=== PATIENT | male | born 1955 | race Caucasian/White ===

== ENCOUNTER 2022-11-26 00:11 | Inpatient (IN) | payer OTHER, MEDICAID ==
[~2022-11-26] VITALS: Ht 193 cm; Wt 101.8 kg
[~2022-11-26 00:11] MED LIST: ASPI-394 PO; ATOR20TA50 PO; CAR3125T PO; CIPR-173 PO; CLO3P TD
[2022-11-26] MEDS ORDERED: PIPERACILLIN-TAZOB 3.375GM 100 ML IV ONE (01:15)
[2022-11-26] MEDS ORDERED: SODIUM CHLORIDE 0.9% 2,850 ML IV ONE (01:15)
[2022-11-26 01:45] LABS: Basophils # (auto) 0 10 ^3/uL (0-0.2); Basophils % (auto) 0.2 % (0.0-2.0); Eosinophils # (auto) 0 10 ^3/uL (0-0.8); Eosinophils % (auto) 0.4 % (0.0-7.0); Hemoglobin 7.6 g/dL (13.5-17.5); Monocytes # (auto) 0.9 10 ^3/uL (0-1.3); Red Blood Cells 2.68 10^6/uL (4.5-5.90); Red Cell Distribution Width 15.4 % (11.8-14.3)
[2022-11-26 01:47] LABS: Hematocrit 23.4 % (41.0-53.0); Lymphocytes # (auto) 1.3 10 ^3/uL (0.4-5.4); Lymphocytes % (auto) 10.6 % (10.0-50.0); Mean Corpuscular Hemoglobin 28.4 pg (28.0-32.0); Mean Corpuscular Hgb Conc. 32.6 g/dL (32.0-36.0); Mean Corpuscular Volume 87.1 fL (80.0-100.0); Monocytes % (auto) 7.7 % (0.0-12.0); Neutrophils % (auto) 81.1 % (37.0-80.0); Nucleated Red Blood Cells % 0.1 %; White Blood Cell 12.3 10^3/uL (4.4-10.8)
[2022-11-26 02:01] LABS: Alanine Aminotransferase 24 U/L (16-61); Anion Gap 6 (5-15); Aspartate Aminotransferase 25 U/L (15-37); BUN/Creatinine Ratio 12.7 (10.0-20.0); Blood Urea Nitrogen 30 mg/dL (7-18); Carbon Dioxide 18 mmol/L (21-32); Chloride 112 mmol/L (98-107); GFR African American 35 mL/min; GFR Non-African American 29 mL/min; Glucose 119 mg/dL (74-106); Potassium 4.7 mmol/L (3.5-5.1); Sodium 136 mmol/L (136-145)
[2022-11-26 02:04] LABS: Alkaline Phosphatase 86 U/L (45-117); Bilirubin, Total 0.1 mg/dL (0.2-1.0); Blood Alcohol < 3.0 mg/dL (0-5); Total Protein 4.9 g/dL (6.4-8.2)
[2022-11-26] MEDS ORDERED: ONDANSETRON HCL 4 MG/2 ML VIAL IV ONE (02:30)
[2022-11-26] MEDS ORDERED: HYDROmorphone HCL 2 MG/ML VL/or syr IV ONE (02:30)
[2022-11-26 06:51] LABS: Urine Bacteria None Seen /hpf (None Seen); Urine WBC None Seen /hpf (0 - 3)
[2022-11-26 09:18] LABS: Urine Specific Gravity 1.015 (1.001-1.035)
[2022-11-26 09:19] LABS: Urine Blood Trace /uL (Negative)
[2022-11-26] MEDS ORDERED: cloNIDine 0.3 mg/24hr 7DAY PATCH TD SCH (11:45)
[2022-11-26] MEDS ORDERED: VANCOMYCIN PER PHARMACY 0 MG IV SCH (11:45)
[2022-11-26] MEDS ORDERED: ACETAMINOPHEN 325 MG TAB PO PRN (11:45)
[2022-11-26] MEDS ORDERED: NITROGLYCERIN 0.4 MG SL TAB SL PRN (11:45)
[2022-11-26] MEDS ORDERED: MORPHINE SULFATE INJ 2 MG/ml SYRG IV PRN (11:45)
[2022-11-26] MEDS ORDERED: VANCOMYCIN 1GM/250ML 250 ML IV ONE (12:00)
[2022-11-26] MEDS: SODIUM CHLORIDE 0.9% 1,000 ML IV SCH ×2 (12:00→21:01)
[2022-11-26] MEDS: SODIUM BICARBONATE 50ML VIAL 50 ML in SOD CHL 0.45% 1,000 ML IV SCH ×2 (15:51→23:24)
[2022-11-26 19:35] LABS: Creatinine, Urine 77.2 mg/dL (30.0-125.0)
[2022-11-26 19:36] LABS: Protein, Urine 783.4 mg/dL (0.0-11.9)
[2022-11-26] MEDS ORDERED: VANCOMYCIN 500 MG in D5W 5% 100 ML IV ONE (20:00)
[2022-11-26] MEDS ORDERED: PIPERACILLIN-TAZOB 3.375GM 100 ML IV SCH (22:00)
[2022-11-26] MEDS: CARVEDILOL 3.125 MG TAB PO SCH ×3 (22:25→23:27)
[2022-11-26] MEDS: PIPERACILLIN-TAZOB 3.375GM 100 ML IV SCH (22:59)
[2022-11-27] MEDS: SODIUM CHLORIDE 0.9% 1,000 ML IV SCH ×2 (04:25→12:45)
[2022-11-27 06:08] LABS: Basophils # (auto) 0 10 ^3/uL (0-0.2); Basophils % (auto) 0.4 % (0.0-2.0); Eosinophils # (auto) 0.1 10 ^3/uL (0-0.8); Hematocrit 23.2 % (41.0-53.0); Hemoglobin 7.7 g/dL (13.5-17.5); Lymphocytes # (auto) 1.5 10 ^3/uL (0.4-5.4); Lymphocytes % (auto) 13.3 % (10.0-50.0); Mean Corpuscular Hemoglobin 28.9 pg (28.0-32.0); Mean Corpuscular Hgb Conc. 33.3 g/dL (32.0-36.0); Mean Corpuscular Volume 86.9 fL (80.0-100.0); Monocytes # (auto) 0.8 10 ^3/uL (0-1.3); Monocytes % (auto) 7.1 % (0.0-12.0); Neutrophils # (auto) 8.6 10 ^3/uL (1.6-8.6); Neutrophils % (auto) 78.2 % (37.0-80.0); Red Blood Cells 2.67 10^6/uL (4.5-5.90); Red Cell Distribution Width 15.6 % (11.8-14.3)
[2022-11-27 06:43] LABS: Potassium 4.8 mmol/L (3.5-5.1)
[2022-11-27 06:53] LABS: Albumin 1.1 g/dL (3.4-5.0); BUN/Creatinine Ratio 12.7 (10.0-20.0); Bilirubin, Total 0.2 mg/dL (0.2-1.0); Calcium 8.1 mg/dL (8.5-10.1); Total Protein 5.1 g/dL (6.4-8.2)
[2022-11-27] MEDS: SODIUM BICARBONATE 50ML VIAL 50 ML in SOD CHL 0.45% 1,000 ML IV SCH ×2 (07:48→16:12)
[2022-11-27] MEDS: HYDROcodone-ACET 5/325MG TAB PO PRN ×2 (09:13→13:11)
[2022-11-27] MEDS ORDERED: SODI1SOL4 EACHEYE (11:20)
[2022-11-27] MEDS ORDERED: MEMA1TAB5 PO (11:20)
[2022-11-27] MEDS ORDERED: FURO20TA3 (11:20)
[2022-11-27] MEDS ORDERED: PREG-111 PO (11:20)
[2022-11-27] MEDS ORDERED: PRED1SUS4 (11:20)
[2022-11-27] MEDS ORDERED: HYDR25TA87 PO (11:20)
[2022-11-27] MEDS ORDERED: PRIM50TA5 PO (11:20)
[2022-11-27] MEDS ORDERED: ACET-6 PO (11:20)
[2022-11-27] MEDS ORDERED: AMLO-496 PO (11:20)
[2022-11-27] MEDS ORDERED: DORZ2SOL18 (11:20)
[2022-11-27] MEDS ORDERED: MOXI0.5D9 LEFTEYE (11:20)
[2022-11-27] MEDS ORDERED: APIX2.5T PO (11:20)
[2022-11-27] MEDS ORDERED: BENA5TAB9 PO (11:20)
[2022-11-27] MEDS ORDERED: METO200T42 PO (11:20)
[2022-11-27] MEDS ORDERED: POTA1TAB61 (11:20)
[2022-11-27 12:46] VITALS: BP 147/66
[2022-11-27] MEDS: ASPirin-EC 81 mg tab PO SCH (12:53)
[2022-11-27] MEDS: ATORVASTATIN 20 MG TAB PO SCH (12:54)
[2022-11-27] MEDS: CARVEDILOL 3.125 MG TAB PO SCH ×2 (12:57→22:31)
[2022-11-27] MEDS: PIPERACILLIN-TAZOB 3.375GM 100 ML IV SCH ×2 (12:58→22:29)
[2022-11-27] MEDS ORDERED: ENOXAPARIN SOD 40 MG/0.4 ML SYRINGE SC ONE (13:30)
[2022-11-27 16:31] VITALS: BP 168/76
[2022-11-27 16:46] LABS: Hepatitis A Ab IgM Negative; Hepatitis B Core IgM Negative
[2022-11-27 16:48] LABS: Hepatitis C Antibody Reactive (Negative)
[2022-11-27] MEDS: VANCOMYCIN 1GM/250ML 250 ML IV SCH (17:00)
[2022-11-27] MEDS: hydrALAZINE HCL 20 MG/ML VL IV PRN (19:40)
[2022-11-28] MEDS: HYDROcodone-ACET 10/325MG TAB PO PRN (00:25)
[2022-11-28] MEDS: SODIUM BICARBONATE 50ML VIAL 50 ML in SOD CHL 0.45% 1,000 ML IV SCH (00:36)
[2022-11-28 05:00] VITALS: BP 149/64
[2022-11-28 09:00] VITALS: BP 171/92
[2022-11-28] MEDS: ENOXAPARIN SOD 40 MG/0.4 ML SYRINGE SC SCH (09:47)
[2022-11-28] MEDS: ATORVASTATIN 20 MG TAB PO SCH (09:47)
[2022-11-28] MEDS: PIPERACILLIN-TAZOB 3.375GM 100 ML IV SCH ×2 (09:47→21:10)
[2022-11-28] MEDS: ASPirin-EC 81 mg tab PO SCH (09:50)
[2022-11-28] MEDS: CARVEDILOL 3.125 MG TAB PO SCH ×2 (09:50→21:11)
[2022-11-28] MEDS: VANCOMYCIN 1GM/250ML 250 ML IV SCH (15:39)
[2022-11-28] MEDS: DULoxetine HCL 30 MG CAP PO SCH (15:40)
[2022-11-28 17:00] VITALS: BP 186/84
[2022-11-28] MEDS ORDERED: LOSARTAN POTASSIUM 50 MG TAB PO ONE (17:00)
[2022-11-28] MEDS ORDERED: ONDANSETRON HCL 4 MG/2 ML VIAL IV ONE (18:30)
[2022-11-28 18:35] LABS: % Iron Saturation 6.4 % (20-55)
[2022-11-28] MEDS: SODIUM BICARBONATE 650 MG TAB PO SCH ×2 (18:46→21:11)
[2022-11-28 19:06] LABS: INR 1.08 (0.9-1.15)
[2022-11-28 22:00] VITALS: BP 141/75
[2022-11-28] MEDS ORDERED: LORazepam 2MG/ML-1ML VIAL IV PRN (22:30)
[2022-11-29] MEDS: HYDROcodone-ACET 10/325MG TAB PO PRN (00:12)
[2022-11-29 05:00] VITALS: BP 142/62
[2022-11-29 06:10] LABS: Anion Gap 7 (5-15); Blood Urea Nitrogen 25 mg/dL (7-18); Calcium 8.4 mg/dL (8.5-10.1); Carbon Dioxide 13 mmol/L (21-32); Chloride 116 mmol/L (98-107); GFR African American 45 mL/min; GFR Non-African American 37 mL/min; Glucose 99 mg/dL (74-106); Potassium 4.8 mmol/L (3.5-5.1); Sodium 136 mmol/L (136-145)
[2022-11-29] MEDS: SODIUM BICARBONATE 650 MG TAB PO SCH ×4 (06:21→23:01)
[2022-11-29] MEDS ORDERED: fentaNYL CITRATE 100 MCG/2 ML VL IV ONE (08:15)
[2022-11-29] MEDS ORDERED: MIDAZOLAM HCL 2MG/2ML 2ml VIAL (1mg/ml) IV ONE (08:15)
[2022-11-29 09:00] VITALS: BP 140/76
[2022-11-29] MEDS ORDERED: LIDOCAINE 2%HCL (LOCAL ANESTH.) INJ 10ml MDV ONE (09:07)
[2022-11-29] MEDS: ENOXAPARIN SOD 40 MG/0.4 ML SYRINGE SC SCH (10:00)
[2022-11-29] MEDS: PIPERACILLIN-TAZOB 3.375GM 100 ML IV SCH ×2 (10:53→18:08)
[2022-11-29] MEDS: CARVEDILOL 3.125 MG TAB PO SCH ×2 (10:54→22:46)
[2022-11-29] MEDS: LOSARTAN POTASSIUM 50 MG TAB PO SCH (10:54)
[2022-11-29] MEDS: DULoxetine HCL 30 MG CAP PO SCH (10:55)
[2022-11-29] MEDS: ATORVASTATIN 20 MG TAB PO SCH (10:55)
[2022-11-29] MEDS: ASPirin-EC 81 mg tab PO SCH (10:55)
[2022-11-29 13:00] VITALS: BP 147/118
[2022-11-29] MEDS: VANCOMYCIN 1GM/250ML 250 ML IV SCH (15:00)
[2022-11-29 17:07] VITALS: BP 172/85
[2022-11-29] MEDS ORDERED: SODIUM FERR GLUC 62.5MG/5ML 125 MG in SODIUM CHL 0.9% 100 ML IV ONE (20:45)
[2022-11-29] MEDS ORDERED: SODIUM BICARBONATE 50ML VIAL 150 ML in D5W 5% 1,000 ML IV ONE (20:45)
[2022-11-29] MEDS: hydrALAZINE HCL 20 MG/ML VL IV PRN (22:21)
[2022-11-30] MEDS: HYDROcodone-ACET 10/325MG TAB PO PRN ×3 (00:19→22:08)
[2022-11-30] MEDS: PIPERACILLIN-TAZOB 3.375GM 100 ML IV SCH ×2 (02:48→09:32)
[2022-11-30] MEDS: hydrALAZINE HCL 20 MG/ML VL IV PRN ×2 (04:32→15:43)
[2022-11-30 05:19] VITALS: BP 220/91
[2022-11-30] MEDS: SODIUM BICARBONATE 650 MG TAB PO SCH ×4 (06:09→22:45)
[2022-11-30 06:10] VITALS: BP 154/101
[2022-11-30 09:10] VITALS: BP 176/85
[2022-11-30] MEDS: ASPirin-EC 81 mg tab PO SCH (09:30)
[2022-11-30] MEDS: DULoxetine HCL 30 MG CAP PO SCH (09:30)
[2022-11-30] MEDS: ATORVASTATIN 20 MG TAB PO SCH (09:31)
[2022-11-30] MEDS: LOSARTAN POTASSIUM 50 MG TAB PO SCH (09:31)
[2022-11-30] MEDS: CARVEDILOL 3.125 MG TAB PO SCH ×2 (09:32→22:45)
[2022-11-30] MEDS: ENOXAPARIN SOD 40 MG/0.4 ML SYRINGE SC SCH (09:33)
[2022-11-30 12:05] LABS: Hemoglobin 7.7 g/dL (13.5-17.5); Lymphocytes # (auto) 1.3 10 ^3/uL (0.4-5.4); White Blood Cell 7.9 10^3/uL (4.4-10.8)
[2022-11-30 12:07] LABS: Basophils # (auto) 0.1 10 ^3/uL (0-0.2); Basophils % (auto) 0.9 % (0.0-2.0); Eosinophils # (auto) 0.2 10 ^3/uL (0-0.8); Eosinophils % (auto) 1.9 % (0.0-7.0); Hematocrit 23.1 % (41.0-53.0); Lymphocytes % (auto) 16.2 % (10.0-50.0); Mean Corpuscular Hemoglobin 28.6 pg (28.0-32.0); Mean Corpuscular Hgb Conc. 33.3 g/dL (32.0-36.0); Mean Corpuscular Volume 85.8 fL (80.0-100.0); Monocytes # (auto) 0.8 10 ^3/uL (0-1.3); Monocytes % (auto) 9.5 % (0.0-12.0); Neutrophils # (auto) 5.7 10 ^3/uL (1.6-8.6); Neutrophils % (auto) 71.5 % (37.0-80.0); Nucleated Red Blood Cells % 0.1 %; Red Blood Cells 2.69 10^6/uL (4.5-5.90); Red Cell Distribution Width 15.3 % (11.8-14.3)
[2022-11-30] MEDS ORDERED: APIXABAN 2.5 MG TAB PO ONE (12:30)
[2022-11-30 12:39] VITALS: BP 181/87
[2022-11-30 12:45] LABS: Calcium 8.7 mg/dL (8.5-10.1); Potassium 3.8 mmol/L (3.5-5.1)
[2022-11-30] MEDS ORDERED: amLODIPine BESYLATE 5 MG TAB PO ONE (12:45)
[2022-11-30 12:47] LABS: BUN/Creatinine Ratio 11.5 (10.0-20.0)
[2022-11-30] MEDS: amLODIPine BESYLATE 5 MG TAB PO SCH (13:05)
[2022-11-30] MEDS: IRON SUCROSE COMPLEX 200 MG in SODIUM CHL 0.9% 100 ML IV SCH (13:30)
[2022-11-30] MEDS: levoFLOXacin 250 MG TAB PO SCH (13:30)
[2022-11-30] MEDS: ONDANSETRON HCL 4 MG/2 ML VIAL IV PRN (15:27)
[2022-11-30] MEDS ORDERED: cloNIDine HCL 0.1 MG TAB PO ONE (16:30)
[2022-11-30 16:38] VITALS: BP 181/103
[2022-11-30 22:00] VITALS: BP 143/68
[2022-11-30] MEDS: APIXABAN 2.5 MG TAB PO SCH (22:08)
[2022-12-01 05:00] VITALS: BP 154/65
[2022-12-01] MEDS: HYDROcodone-ACET 10/325MG TAB PO PRN ×2 (05:19→21:34)
[2022-12-01] MEDS: SODIUM BICARBONATE 650 MG TAB PO SCH ×4 (05:35→21:51)
[2022-12-01 09:00] VITALS: BP 172/78
[2022-12-01] MEDS: ASPirin-EC 81 mg tab PO SCH (09:04)
[2022-12-01] MEDS: DULoxetine HCL 30 MG CAP PO SCH (09:05)
[2022-12-01] MEDS: LOSARTAN POTASSIUM 50 MG TAB PO SCH (09:06)
[2022-12-01] MEDS: CARVEDILOL 3.125 MG TAB PO SCH ×2 (09:06→21:35)
[2022-12-01] MEDS: amLODIPine BESYLATE 5 MG TAB PO SCH (09:07)
[2022-12-01] MEDS: levoFLOXacin 250 MG TAB PO SCH (09:07)
[2022-12-01] MEDS: APIXABAN 2.5 MG TAB PO SCH ×2 (09:08→21:36)
[2022-12-01] MEDS: ATORVASTATIN 20 MG TAB PO SCH (09:08)
[2022-12-01 12:51] VITALS: BP 158/82
[2022-12-01] MEDS: IRON SUCROSE COMPLEX 200 MG in SODIUM CHL 0.9% 100 ML IV SCH (14:45)
[2022-12-01 16:48] VITALS: BP 154/69
[2022-12-01] MEDS: hydrALAZINE HCL 20 MG/ML VL IV PRN (21:35)
[2022-12-01 22:00] VITALS: BP_SYST 110; BP_SYST 190; BP_DIAS 83
[2022-12-02 05:00] VITALS: BP 186/90
[2022-12-02] MEDS: hydrALAZINE HCL 20 MG/ML VL IV PRN ×2 (05:09→08:14)
[2022-12-02] MEDS: HYDROcodone-ACET 10/325MG TAB PO PRN ×2 (05:14→09:28)
[2022-12-02] MEDS: SODIUM BICARBONATE 650 MG TAB PO SCH ×3 (05:15→18:29)
[2022-12-02 06:35] VITALS: BP 153/92
[2022-12-02] MEDS: ONDANSETRON HCL 4 MG/2 ML VIAL IV PRN (08:14)
[2022-12-02 09:00] VITALS: BP 176/108
[2022-12-02] MEDS: APIXABAN 2.5 MG TAB PO SCH (09:27)
[2022-12-02] MEDS: levoFLOXacin 250 MG TAB PO SCH (09:27)
[2022-12-02] MEDS: ASPirin-EC 81 mg tab PO SCH (09:27)
[2022-12-02] MEDS: DULoxetine HCL 30 MG CAP PO SCH (09:28)
[2022-12-02] MEDS: ATORVASTATIN 20 MG TAB PO SCH (09:28)
[2022-12-02] MEDS: amLODIPine BESYLATE 5 MG TAB PO SCH (09:50)
[2022-12-02] MEDS: LOSARTAN POTASSIUM 50 MG TAB PO SCH (09:52)
[2022-12-02] MEDS: CARVEDILOL 3.125 MG TAB PO SCH (09:52)
[2022-12-02 12:21] LABS: BUN/Creatinine Ratio 10.1 (10.0-20.0); Calcium 8.4 mg/dL (8.5-10.1); Potassium 3.4 mmol/L (3.5-5.1)
[2022-12-02 13:00] VITALS: BP 160/94
[2022-12-02] MEDS: IRON SUCROSE COMPLEX 200 MG in SODIUM CHL 0.9% 100 ML IV SCH (13:38)
[2022-12-02] MEDS ORDERED: hydrALAZINE HCL 25 MG TAB PO SCH ×2 (14:00→22:00)
[2022-12-02 17:00] VITALS: BP 155/94
[2022-12-02] MEDS ORDERED: cloNIDine HCL 0.1 MG TAB PO SCH (22:00)
== END 2022-12-02 19:10 | DRG 871 ==
LOC: ER 00:11 → EDBD 00:11 → TELE 11:43 → TELE-WESTW 11-27 11:14
PROVIDERS: ADMIT Internal Medicine; ATTEND Internal Medicine
PROC: 0T913ZX Drainage of Left Kidney, Percutaneous Approach, Diagnostic (ICD-10-PCS; principal; 2022-11-29)
DX: A41.9 Sepsis, unspecified organism (principal); J18.9 Pneumonia, unspecified organism; N17.0 Acute kidney failure with tubular necrosis; J44.0 Chronic obstructive pulmonary disease with (acute) lower respiratory infection; N39.0 Urinary tract infection, site not specified; F33.1 Major depressive disorder, recurrent, moderate; I12.9 Hypertensive chronic kidney disease with stage 1 through stage 4 chronic kidney disease, or unspecified chronic kidney disease; L89.159 Pressure ulcer of sacral region, unspecified stage; E66.9 Obesity, unspecified; E78.5 Hyperlipidemia, unspecified; B96.5 Pseudomonas (aeruginosa) (mallei) (pseudomallei) as the cause of diseases classified elsewhere; R80.9 Proteinuria, unspecified; D50.9 Iron deficiency anemia, unspecified; N18.32 Chronic kidney disease, stage 3b; Z89.611 Acquired absence of right leg above knee; Z93.3 Colostomy status; I25.2 Old myocardial infarction; Z82.3 Family history of stroke; Z82.49 Family history of ischemic heart disease and other diseases of the circulatory system; Z79.82 Long term (current) use of aspirin; Z87.891 Personal history of nicotine dependence; Z95.5 Presence of coronary angioplasty implant and graft; Z99.3 Dependence on wheelchair; Z68.27 Body mass index [BMI] 27.0-27.9, adult
CPT/HCPCS: 10005; 36415; 70450; 70551; 71250; 74150; 74176; 76705; 77012; 78582; 80048; 80053; 80074; 80202; 80320; 81001; 82140; 82570; 83036; 83540; 83550; 83605; 83880; 84156; 84300; 84484; 85025; 85379; 85610; 86160; 86431; 86703; 87040; 87077; 87086; 87088; 87186; 87426; 87804; 93005; 93306; 93886; 93970; 95819; 96365; 96366; 96375; 97163; G0378; J1756; J2001; J2250; J2405; J2543; J7060

== ENCOUNTER 2023-04-18 01:34 | Emergency (ER) | payer OTHER, MEDICAID ==
[~2023-04-18] VITALS: Ht 177.8 cm; Wt 100.0 kg
[~2023-04-18 01:34] MED LIST changes: +ACET-6 PO; +AMLO1TAB23 PO; +APIX2.5T PO; +BENA5TAB9 PO; -CLO3P TD; +DORZ2SOL18; +FURO20TA3; +HYDR25TA87 PO; +MEMA1TAB5 PO; +METO200T42 PO; +MOXI0.5D9 LEFTEYE; +POTA1TAB61; +PRED1SUS4; +PREG-111 PO; +PRIM50TA5 PO; +SODI1SOL4 EACHEYE; +[UNRECOGNIZED DRUG - CODE] TD
[2023-04-18] MEDS ORDERED: ALBUTEROL SULF 2.5 MG/0.5ML(0.5%) NEB SOLN NEB ONE (02:00)
[2023-04-18 02:15] VITALS: PULSE 63; RESP 18; O2SAT 95
[2023-04-18 02:18] LABS: Basophils # (auto) 0 10 ^3/uL (0-0.2); Eosinophils # (auto) 0.3 10 ^3/uL (0-0.8); Mean Corpuscular Hemoglobin 30.7 pg (28.0-32.0); Monocytes # (auto) 0.3 10 ^3/uL (0-1.3); White Blood Cell 4.6 10^3/uL (4.4-10.8)
[2023-04-18 02:20] LABS: Eosinophils % (auto) 5.7 % (0.0-7.0); Hematocrit 25.5 % (41.0-53.0); Lymphocytes # (auto) 0.9 10 ^3/uL (0.4-5.4); Lymphocytes % (auto) 19.9 % (10.0-50.0); Mean Corpuscular Hgb Conc. 31.5 g/dL (32.0-36.0); Mean Corpuscular Volume 97.5 fL (80.0-100.0); Neutrophils # (auto) 3.1 10 ^3/uL (1.6-8.6); Neutrophils % (auto) 66.4 % (37.0-80.0); Red Blood Cells 2.62 10^6/uL (4.5-5.90); Red Cell Distribution Width 18.6 % (11.8-14.3)
[2023-04-18 02:32] LABS: INR 1.14 (0.9-1.15); Partial Thromboplastin Time 35.5 SEC (24.5-34.5); Prothrombin Time 11.9 sec (9.3-11.8)
[2023-04-18 02:33] LABS: Alanine Aminotransferase 30 U/L (7-40); Albumin 2.8 g/dL (3.2-4.8); Alkaline Phosphatase 193 U/L (46-116); Anion Gap 5 (5-15); Aspartate Aminotransferase 30 U/L (13-40); Blood Urea Nitrogen 39 mg/dL (9-23); Calcium 8.7 mg/dL (8.7-10.4); Carbon Dioxide 22 mmol/L (20-30); Chloride 119 mmol/L (98-107); Glucose 91 mg/dL (74-106); Potassium 4.7 mmol/L (3.5-5.1); Sodium 146 mmol/L (136-145)
[2023-04-18 02:34] LABS: Bilirubin, Total < 0.2 mg/dL (0.2-1.0); Total Protein 5.7 g/dL (5.7-8.2)
[2023-04-18] MEDS ORDERED: ASPirin 325 MG TAB PO ONE (02:45)
[2023-04-18] MEDS ORDERED: cefTRIAXone SOD 500 MG VL IV ONE (03:15)
[2023-04-18] MEDS ORDERED: cefTRIAXone 1GM/50ML D5W 50 ML IV ONE (03:30)
[2023-04-18 09:39] VITALS: PULSE 62; RESP 16; O2SAT 95
[2023-04-18 20:00] VITALS: PULSE 66; RESP 17; O2SAT 96
[2023-04-18] MEDS ORDERED: hydrALAZINE HCL 20 MG/ML VL IV ONE (21:45)
[2023-04-19 04:00] VITALS: PULSE 67; RESP 13; TEMP 97.4; O2SAT 95
[2023-04-19 06:54] LABS: Urine Bacteria FEW /hpf (None Seen); Urine Blood Negative /uL (Negative); Urine Budding Yeast MANY /hpf (None Seen); Urine Clarity HAZY (Clear); Urine Color Yellow (Yellow); Urine Protein, UAD 3+ (Negative); Urine Specific Gravity 1.015 (1.001-1.035); Urine Urobilinogen Normal (Negative); Urine WBC 426 /hpf (0 - 3); Urine WBC Clumps PRESENT /hpf (None Seen)
[2023-04-19] MEDS ORDERED: FAMOTIDINE 20 MG TAB PO ONE (08:30)
[2023-04-19] MEDS ORDERED: CARVEDILOL 3.125 MG TAB PO ONE (08:30)
[2023-04-19] MEDS ORDERED: HYDROcodone-ACET 5/325MG TAB PO ONE (08:30)
[2023-04-19] MEDS ORDERED: hydrALAZINE HCL 25 MG TAB PO ONE (08:30)
[2023-04-19] MEDS ORDERED: cloNIDine 0.2 mg/24hr 7DAY PATCH TD ONE (08:30)
[2023-04-19] MEDS ORDERED: DOCUSATE SOD 100 MG CAP PO ONE (08:30)
[2023-04-19] MEDS ORDERED: ATORVASTATIN 20 MG TAB PO ONE (08:30)
[2023-04-19] MEDS ORDERED: LEVOTHYROXINE SODIUM 50 MCG TAB PO ONE (08:30)
[2023-04-19] MEDS ORDERED: GABAPENTIN 300 MG CAP PO ONE (08:30)
[2023-04-19] MEDS ORDERED: NIFEdipine ER 30 MG TAB PO ONE (08:30)
[2023-04-19] MEDS ORDERED: SERTRALINE HCL 50 MG TAB PO ONE (08:30)
[2023-04-19 15:36] VITALS: BP 154/59; PULSE 66; RESP 12; O2SAT 94
== END 2023-04-19 15:38 | disposition hospice, inpatient (51) ==
LOC: ER 01:34
DX: J18.9 Pneumonia, unspecified organism (principal); R06.00 Dyspnea, unspecified; I11.0 Hypertensive heart disease with heart failure; I50.9 Heart failure, unspecified; I25.2 Old myocardial infarction; J44.9 Chronic obstructive pulmonary disease, unspecified; Z87.891 Personal history of nicotine dependence
CPT/HCPCS: 36415; 71045; 71250; 80053; 81001; 83605; 83735; 83880; 84484; 85025; 85379; 85610; 85730; 87040; 87077; 87186; 93005; 94640; 96365; 96375; 99285; J0360; J0696

== ENCOUNTER 2023-05-27 21:21 | Inpatient (IN) | payer OTHER, MEDICAID ==
[~2023-05-27] VITALS: Ht 180.3 cm; Wt 85.1 kg
[~2023-05-27 21:21] MED LIST changes: -FURO20TA3; +FURO20TA3 PO; -POTA1TAB61; +POTA1TAB61 PO; +ROCURONIUM 10MG/ML 10ML VIAL IV ONE
[2023-05-27 21:30] VITALS: BP 208/86; PULSE 79; PULSE 94; RESP 18; O2SAT 100
[2023-05-27] MEDS ORDERED: PROPOFOL 100 ML IV ONE (21:32)
[2023-05-27] MEDS ORDERED: ROCURONIUM 10MG/ML 10ML VIAL IV ONE (21:45)
[2023-05-27] MEDS: PROPOFOL 100 ML IV SCH (21:45)
[2023-05-27] MEDS ORDERED: ETOMIDATE (2MG/ML) 20ML VIAL IV ONE (21:45)
[2023-05-27] MEDS ORDERED: VANCOMYCIN 1GM/250ML 250 ML IV ONE ×2 (21:47→22:30)
[2023-05-27 21:48] LABS: Basophils # (auto) 0.1 10 ^3/uL (0-0.2); Eosinophils # (auto) 0.5 10 ^3/uL (0-0.8); Eosinophils % (auto) 5.9 % (0.0-7.0); Neutrophils # (auto) 3.3 10 ^3/uL (1.6-8.6); Nucleated Red Blood Cells % 0.1 %
[2023-05-27 21:50] LABS: Hematocrit 28.7 % (41.0-53.0); Hemoglobin 8.6 g/dL (13.5-17.5); Lymphocytes # (auto) 3.8 10 ^3/uL (0.4-5.4); Lymphocytes % (auto) 47.7 % (10.0-50.0); Mean Corpuscular Hemoglobin 29.5 pg (28.0-32.0); Mean Corpuscular Hgb Conc. 30.1 g/dL (32.0-36.0); Mean Corpuscular Volume 98.2 fL (80.0-100.0); Monocytes # (auto) 0.3 10 ^3/uL (0-1.3); Monocytes % (auto) 4.3 % (0.0-12.0); Neutrophils % (auto) 41.1 % (37.0-80.0); Red Blood Cells 2.92 10^6/uL (4.5-5.90); Red Cell Distribution Width 18.5 % (11.8-14.3)
[2023-05-27] MEDS ORDERED: FUROSEMIDE 40 MG/4 ML VIAL IV ONE (22:00)
[2023-05-27] MEDS ORDERED: levoFLOXacin 750MG 150 ML IV ONE (22:00)
[2023-05-27] MEDS ORDERED: ASPirin 300 MG RECTAL SUPP PR ONE (22:00)
[2023-05-27 22:04] LABS: INR 1.09 (0.9-1.15); Prothrombin Time 11.4 sec (9.3-11.8)
[2023-05-27 22:06] LABS: Alanine Aminotransferase 13 U/L (7-40); Alkaline Phosphatase 141 U/L (46-116); Anion Gap 5 (5-15); Aspartate Aminotransferase 33 U/L (13-40); Bilirubin, Total < 0.2 mg/dL (0.2-1.0); Blood Urea Nitrogen 26 mg/dL (9-23); Calcium 8.9 mg/dL (8.7-10.4); Carbon Dioxide 23 mmol/L (20-30); Chloride 112 mmol/L (98-107); Glucose 150 mg/dL (74-106); Lactic Acid w/Reflex 2.9 mmol/L (0.4-2.0); Magnesium 2.3 mg/dL (1.6-2.6); Magnesium 2.4 mg/dL (1.6-2.6); Potassium 4.9 mmol/L (3.5-5.1); Sodium 140 mmol/L (136-145); Total Protein 6.4 g/dL (5.7-8.2)
[2023-05-27 22:07] LABS: Acetaminophen < 2.0 UG/ML (10.0-20.0)
[2023-05-27 22:08] LABS: Salicylate < 3.0 mg/dL (2.8-20.0)
[2023-05-27] MEDS ORDERED: PIPERACILLIN-TAZO 4.5GM 100 ML IV ONE (22:30)
[2023-05-27 22:43] LABS: Base Excess -2.5 mmol/L (-2.0-2.0)
[2023-05-27] MEDS ORDERED: LORazepam 2MG/ML-1ML VIAL IV ONE (23:30)
[2023-05-27] MEDS: MIDAZOLAM DRIP 50 mg/50mL 50 ML IV SCH (23:33)
[2023-05-28] VITALS (98 sets, daily range): BP systolic 105–188; BP diastolic 56–91; PULSE 43–100; RESP 9–19; TEMP 95.2–98.8; O2SAT 91–100
[2023-05-28] MEDS ORDERED: ONDANSETRON HCL 4 MG/2 ML VIAL IV PRN (00:30)
[2023-05-28] MEDS ORDERED: MORPHINE SULFATE INJ 2 MG/ml SYRG IV PRN (00:30)
[2023-05-28] MEDS ORDERED: DEXTROSE (50%) 50ML SYRG IV PRN (00:30)
[2023-05-28] MEDS ORDERED: ACETAMINOPHEN 325 MG TAB PO PRN (00:30)
[2023-05-28] MEDS ORDERED: NITROGLYCERIN 0.4 MG SL TAB SL PRN (00:30)
[2023-05-28 00:38] LABS: Urine Bacteria MOD /hpf (None Seen); Urine Blood Negative /uL (Negative); Urine Budding Yeast MODERATE /hpf (None Seen); Urine Clarity HAZY (Clear); Urine Color Colorless (Yellow); Urine Protein, UAD 2+ (Negative); Urine Specific Gravity 1.009 (1.001-1.035); Urine Urobilinogen Normal (Negative); Urine WBC 11 /hpf (0 - 3); Urine pH 6.5 (5.0-8.0)
[2023-05-28 00:41] LABS: Amphetamine Screen, Urine Neg (NEGATIVE); Barbiturate Scree,Urine Neg (NEGATIVE); Benzodiazephine Screen, Urine Neg (NEGATIVE); Cocaine Screen, Urine Neg (NEGATIVE); Opiate Scree,Urine Neg (NEGATIVE)
[2023-05-28 00:42] LABS: Cannabinoid Screen, Urine Neg (NEGATIVE); Phencyclidine Screen, Urine Neg (NEGATIVE)
[2023-05-28] MEDS: hydrALAZINE HCL 20 MG/ML VL IV PRN ×2 (01:34→07:58)
[2023-05-28 01:39] LABS: COVID19 ANTIGEN SOFIA FIA NEGATIVE (NEGATIVE); Rapid Influenza A Negative (Negative); Rapid Influenza B Negative (Negative)
[2023-05-28] MEDS ORDERED: hydrALAZINE HCL 20 MG/ML VL IV ONE (05:00)
[2023-05-28] MEDS: PROPOFOL 100 ML IV SCH ×3 (05:00→15:09)
[2023-05-28] MEDS: MIDAZOLAM DRIP 50 mg/50mL 50 ML IV SCH ×3 (05:00→18:46)
[2023-05-28] MEDS: InsuLIN REG 1unit/0.01ml Soln (100units/ml) SC SCH ×4 (06:00→23:55)
[2023-05-28] MEDS ORDERED: FUROSEMIDE 20 MG/2 ML VIAL IV SCH (06:00)
[2023-05-28] MEDS: ACCU-CHEK COMFORT CURVE STRIP VI SCH ×4 (06:07→23:52)
[2023-05-28] MEDS: LEVOTHYROXINE SODIUM 50 MCG TAB PO SCH (06:44)
[2023-05-28] MEDS ORDERED: LEVOTHYROXINE SODIUM 50 MCG TAB PO SCH (07:00)
[2023-05-28 07:50] LABS: Base Excess 2.5 mmol/L (-2.0-2.0)
[2023-05-28] MEDS ORDERED: cefTRIAXone 1GM/50ML D5W 50 ML IV SCH (09:00)
[2023-05-28] MEDS: CLOPIDOGREL BISULFATE 75 MG TAB PO SCH (10:00)
[2023-05-28] MEDS ORDERED: NIFEdipine ER 30 MG TAB PO SCH (10:00)
[2023-05-28] MEDS ORDERED: MEMANTINE HCL 5 MG TAB PO SCH (10:00)
[2023-05-28] MEDS ORDERED: AZITHROMYCIN 500MG/ 250ML 250 ML IV SCH (10:00)
[2023-05-28] MEDS: fentaNYL Drip 2500mCg/250mlNS 250 ML IV SCH (12:15)
[2023-05-28] MEDS ORDERED: VANCOMYCIN PER PHARMACY 0 MG IV SCH (12:15)
[2023-05-28] MEDS ORDERED: FUROSEMIDE 40 MG/4 ML VIAL IV ONE (12:15)
[2023-05-28] MEDS ORDERED: DOPamine 1600MCG/ML D5W 250 ML IV SCH (12:45)
[2023-05-28] MEDS: DOPamine 1600MCG/ML D5W 250 ML IV SCH (13:27)
[2023-05-28] MEDS: CEFEPIME 1GM/ 50ML 50 ML IV SCH ×2 (13:27→22:07)
[2023-05-28 13:55] LABS: Protein, Urine 124.4 mg/dL (0.0-11.9)
[2023-05-28 13:58] LABS: Creatinine, Urine 8.23 mg/dL (30.0-125.0); Urine Protein/Creatinine Ratio 15.12
[2023-05-28] MEDS ORDERED: LIDOCAINE 1% (LOCAL ANESTH.) PF 5ml SDV ID ONE (14:15)
[2023-05-28] MEDS ORDERED: VANCOMYCIN 500 MG in D5W 5% 100 ML IV ONE (18:00)
[2023-05-28] MEDS: FUROSEMIDE 20 MG/2 ML VIAL IV SCH (18:45)
[2023-05-28] MEDS ORDERED: ATORVASTATIN 20 MG TAB PO SCH (22:00)
[2023-05-28] MEDS: SODIUM CHLOR 0.9% PF (SALINE LOCK) 10ML VIAL/SYR IV SCH (22:08)
[2023-05-29] VITALS (108 sets, daily range): BP systolic 106–188; BP diastolic 55–95; PULSE 53–123; RESP 13–19; TEMP 98.1–99; O2SAT 97–100
[2023-05-29] MEDS: PROPOFOL 100 ML IV SCH ×4 (03:41→21:48)
[2023-05-29] MEDS: MIDAZOLAM DRIP 50 mg/50mL 50 ML IV SCH ×3 (03:41→15:58)
[2023-05-29 04:13] LABS: Basophils # (auto) 0 10 ^3/uL (0-0.2); Eosinophils # (auto) 0.3 10 ^3/uL (0-0.8); Hemoglobin 7.4 g/dL (13.5-17.5); Lymphocytes # (auto) 0.6 10 ^3/uL (0.4-5.4); Mean Corpuscular Hgb Conc. 32.3 g/dL (32.0-36.0); Monocytes # (auto) 0.3 10 ^3/uL (0-1.3); Neutrophils # (auto) 2.9 10 ^3/uL (1.6-8.6)
[2023-05-29 04:15] LABS: Basophils % (auto) 0.6 % (0.0-2.0); Eosinophils % (auto) 7.5 % (0.0-7.0); Hematocrit 22.8 % (41.0-53.0); Lymphocytes % (auto) 15.2 % (10.0-50.0); Mean Corpuscular Hemoglobin 29.9 pg (28.0-32.0); Mean Corpuscular Volume 92.5 fL (80.0-100.0); Monocytes % (auto) 7.1 % (0.0-12.0); Neutrophils % (auto) 69.6 % (37.0-80.0); Nucleated Red Blood Cells % 0.2 %; Red Blood Cells 2.46 10^6/uL (4.5-5.90); Red Cell Distribution Width 17.4 % (11.8-14.3); White Blood Cell 4.1 10^3/uL (4.4-10.8)
[2023-05-29 04:35] LABS: Alanine Aminotransferase 10 U/L (7-40); Albumin 2.3 g/dL (3.2-4.8); Alkaline Phosphatase 102 U/L (46-116); Anion Gap 3 (5-15); Aspartate Aminotransferase 24 U/L (13-40); BUN/Creatinine Ratio 11.1 (10.0-20.0); Blood Urea Nitrogen 29 mg/dL (9-23); Calcium 8.5 mg/dL (8.7-10.4); Carbon Dioxide 25 mmol/L (20-30); Chloride 112 mmol/L (98-107); Glucose 76 mg/dL (74-106); Potassium 3.9 mmol/L (3.5-5.1); Sodium 140 mmol/L (136-145)
[2023-05-29 04:36] LABS: Bilirubin, Total 0.2 mg/dL (0.2-1.0)
[2023-05-29] MEDS: LEVOTHYROXINE SODIUM 50 MCG TAB PO SCH (06:00)
[2023-05-29] MEDS: InsuLIN REG 1unit/0.01ml Soln (100units/ml) SC SCH ×4 (06:00→23:59)
[2023-05-29] MEDS: hydrALAZINE HCL 20 MG/ML VL IV PRN (06:00)
[2023-05-29] MEDS: FUROSEMIDE 20 MG/2 ML VIAL IV SCH (06:01)
[2023-05-29] MEDS: ACCU-CHEK COMFORT CURVE STRIP VI SCH ×4 (06:03→23:59)
[2023-05-29] MEDS: CEFEPIME 1GM/ 50ML 50 ML IV SCH ×3 (06:03→21:49)
[2023-05-29 08:16] LABS: Base Excess 0.9 mmol/L (-2.0-2.0)
[2023-05-29] MEDS: ENOXAPARIN SOD 40 MG/0.4 ML SYRINGE SC SCH (08:55)
[2023-05-29] MEDS: PANTOPRAZOLE 40 MG/10 ML VIAL INJ IV SCH (08:55)
[2023-05-29] MEDS: SODIUM CHLOR 0.9% PF (SALINE LOCK) 10ML VIAL/SYR IV SCH ×2 (08:56→21:50)
[2023-05-29] MEDS: CLOPIDOGREL BISULFATE 75 MG TAB PO SCH (08:56)
[2023-05-29] MEDS: fentaNYL Drip 2500mCg/250mlNS 250 ML IV SCH (09:34)
[2023-05-29] MEDS ORDERED: VANCOMYCIN 1GM/250ML 250 ML IV ONE (12:00)
[2023-05-29] MEDS: DOPamine 1600MCG/ML D5W 250 ML IV SCH (12:45)
[2023-05-29] MEDS ORDERED: LOSA50TA46 PO (12:59)
[2023-05-29] MEDS ORDERED: LEVO50TA7 PO (13:22)
[2023-05-29] MEDS ORDERED: NIFE1TAB30 PO (13:23)
[2023-05-29] MEDS ORDERED: GABA-339 PO (13:23)
[2023-05-29] MEDS ORDERED: FAMO-12 PO (13:24)
[2023-05-29] MEDS: FUROSEMIDE 40 MG/4 ML VIAL IV SCH (18:12)
[2023-05-30] VITALS (117 sets, daily range): BP systolic 110–179; BP diastolic 58–80; PULSE 53–93; RESP 12–16; TEMP 97.7–99; O2SAT 94–100
[2023-05-30 04:46] LABS: Basophils # (auto) 0 10 ^3/uL (0-0.2); Eosinophils # (auto) 0.4 10 ^3/uL (0-0.8); Lymphocytes # (auto) 0.9 10 ^3/uL (0.4-5.4); Monocytes # (auto) 0.3 10 ^3/uL (0-1.3); Neutrophils # (auto) 2.1 10 ^3/uL (1.6-8.6); Neutrophils % (auto) 57.3 % (37.0-80.0); White Blood Cell 3.7 10^3/uL (4.4-10.8)
[2023-05-30 04:48] LABS: Basophils % (auto) 0.8 % (0.0-2.0); Eosinophils % (auto) 10.1 % (0.0-7.0); Hematocrit 21.1 % (41.0-53.0); Lymphocytes % (auto) 23.2 % (10.0-50.0); Mean Corpuscular Hemoglobin 29.4 pg (28.0-32.0); Mean Corpuscular Hgb Conc. 32.3 g/dL (32.0-36.0); Mean Corpuscular Volume 90.9 fL (80.0-100.0); Monocytes % (auto) 8.6 % (0.0-12.0); Red Blood Cells 2.32 10^6/uL (4.5-5.90); Red Cell Distribution Width 17.3 % (11.8-14.3)
[2023-05-30 05:06] LABS: Hemoglobin 6.8 g/dL (13.5-17.5)
[2023-05-30 05:08] LABS: Alanine Aminotransferase 11 U/L (7-40); Alkaline Phosphatase 109 U/L (46-116); Calcium 7.9 mg/dL (8.7-10.4); Chloride 110 mmol/L (98-107)
[2023-05-30 05:09] LABS: Albumin 2.2 g/dL (3.2-4.8); Anion Gap 6 (5-15); Aspartate Aminotransferase 28 U/L (13-40); BUN/Creatinine Ratio 11.2 (10.0-20.0); Bilirubin, Total < 0.2 mg/dL (0.2-1.0); Blood Urea Nitrogen 31 mg/dL (9-23); Carbon Dioxide 25 mmol/L (20-30); Glucose 78 mg/dL (74-106); Potassium 3.8 mmol/L (3.5-5.1); Sodium 141 mmol/L (136-145); Total Protein 4.9 g/dL (5.7-8.2)
[2023-05-30] MEDS: InsuLIN REG 1unit/0.01ml Soln (100units/ml) SC SCH ×3 (05:22→17:22)
[2023-05-30] MEDS: LEVOTHYROXINE SODIUM 50 MCG TAB PO SCH (05:22)
[2023-05-30] MEDS: ACCU-CHEK COMFORT CURVE STRIP VI SCH ×3 (05:22→17:21)
[2023-05-30] MEDS: FUROSEMIDE 40 MG/4 ML VIAL IV SCH ×2 (05:22→17:21)
[2023-05-30] MEDS: CEFEPIME 1GM/ 50ML 50 ML IV SCH ×3 (05:22→21:53)
[2023-05-30] MEDS: PROPOFOL 100 ML IV SCH ×3 (05:28→22:36)
[2023-05-30] MEDS: SODIUM CHLOR 0.9% PF (SALINE LOCK) 10ML VIAL/SYR IV SCH ×2 (10:01→21:55)
[2023-05-30] MEDS: PANTOPRAZOLE 40 MG/10 ML VIAL INJ IV SCH (10:01)
[2023-05-30] MEDS: ENOXAPARIN SOD 40 MG/0.4 ML SYRINGE SC SCH (10:01)
[2023-05-30] MEDS: CLOPIDOGREL BISULFATE 75 MG TAB PO SCH (10:01)
[2023-05-30] MEDS: MIDAZOLAM DRIP 50 mg/50mL 50 ML IV SCH (10:02)
[2023-05-30] MEDS: fentaNYL Drip 2500mCg/250mlNS 250 ML IV SCH ×2 (12:15→17:29)
[2023-05-30] MEDS: hydrALAZINE HCL 20 MG/ML VL IV PRN (14:10)
[2023-05-30] MEDS: LINEZOLID 600MG/300ML 300 ML IV SCH (14:18)
[2023-05-30] MEDS ORDERED: hydrALAZINE HCL 20 MG/ML VL IV ONE (15:45)
[2023-05-30] MEDS ORDERED: LABETALOL HCL 5 MG/ML 4ML SYRINGE IV ONE (17:15)
[2023-05-31] VITALS (109 sets, daily range): BP systolic 121–170; BP diastolic 53–83; PULSE 64–88; RESP 13–15; TEMP 97.7–99; O2SAT 88–100
[2023-05-31] MEDS: MIDAZOLAM DRIP 50 mg/50mL 50 ML IV SCH ×2 (01:11→10:47)
[2023-05-31] MEDS: LINEZOLID 600MG/300ML 300 ML IV SCH ×2 (02:04→14:16)
[2023-05-31 04:13] LABS: Hemoglobin 8.2 g/dL (13.5-17.5)
[2023-05-31 04:17] LABS: Basophils # (auto) 0 10 ^3/uL (0-0.2); Basophils % (auto) 0.4 % (0.0-2.0); Eosinophils # (auto) 0.5 10 ^3/uL (0-0.8); Eosinophils % (auto) 8.6 % (0.0-7.0); Hematocrit 24.7 % (41.0-53.0); Lymphocytes # (auto) 0.9 10 ^3/uL (0.4-5.4); Lymphocytes % (auto) 17.1 % (10.0-50.0); Mean Corpuscular Hemoglobin 29.9 pg (28.0-32.0); Mean Corpuscular Hgb Conc. 33.4 g/dL (32.0-36.0); Mean Corpuscular Volume 89.6 fL (80.0-100.0); Monocytes # (auto) 0.5 10 ^3/uL (0-1.3); Monocytes % (auto) 9.8 % (0.0-12.0); Neutrophils # (auto) 3.4 10 ^3/uL (1.6-8.6); Neutrophils % (auto) 64.1 % (37.0-80.0); Red Blood Cells 2.76 10^6/uL (4.5-5.90); White Blood Cell 5.3 10^3/uL (4.4-10.8)
[2023-05-31 04:25] LABS: Alanine Aminotransferase 11 U/L (7-40); Albumin 2.3 g/dL (3.2-4.8); Alkaline Phosphatase 118 U/L (46-116); Anion Gap 7 (5-15); Aspartate Aminotransferase 26 U/L (13-40); BUN/Creatinine Ratio 10.5 (10.0-20.0); Bilirubin, Total 0.2 mg/dL (0.2-1.0); Blood Urea Nitrogen 29 mg/dL (9-23); Carbon Dioxide 24 mmol/L (20-30); Chloride 109 mmol/L (98-107); Glucose 96 mg/dL (74-106); Sodium 140 mmol/L (136-145); Total Protein 5.1 g/dL (5.7-8.2)
[2023-05-31] MEDS: FUROSEMIDE 40 MG/4 ML VIAL IV SCH ×2 (05:35→17:32)
[2023-05-31] MEDS: ACCU-CHEK COMFORT CURVE STRIP VI SCH ×4 (05:35→17:32)
[2023-05-31] MEDS: CEFEPIME 1GM/ 50ML 50 ML IV SCH ×3 (05:35→21:54)
[2023-05-31] MEDS: LEVOTHYROXINE SODIUM 50 MCG TAB PO SCH (05:35)
[2023-05-31] MEDS: InsuLIN REG 1unit/0.01ml Soln (100units/ml) SC SCH ×4 (05:39→17:35)
[2023-05-31] MEDS: Glucerna 1.2 Cal 1Liter BOTTLE GT SCH (05:45)
[2023-05-31] MEDS: PROPOFOL 100 ML IV SCH ×2 (06:26→16:16)
[2023-05-31 07:18] LABS: Base Excess -2.5 mmol/L (-2.0-2.0)
[2023-05-31] MEDS: PANTOPRAZOLE 40 MG/10 ML VIAL INJ IV SCH (10:52)
[2023-05-31] MEDS: ENOXAPARIN SOD 40 MG/0.4 ML SYRINGE SC SCH (10:53)
[2023-05-31] MEDS: SODIUM CHLOR 0.9% PF (SALINE LOCK) 10ML VIAL/SYR IV SCH ×2 (10:53→21:55)
[2023-05-31] MEDS: hydrALAZINE HCL 20 MG/ML VL IV PRN (10:56)
[2023-05-31] MEDS ORDERED: METOCLOPRAMIDE HCL 5MG/ml INJ 2ml VIAL IV ONE (11:30)
[2023-05-31] MEDS ORDERED: METOPROLOL TARTRATE 25 MG TAB PO ONE (11:30)
[2023-05-31] MEDS: METOPROLOL TARTRATE 25 MG TAB PO SCH (21:55)
[2023-05-31] MEDS: METOCLOPRAMIDE HCL 5MG/ml INJ 2ml VIAL IV SCH (21:55)
[2023-06-01] VITALS (113 sets, daily range): BP systolic 133–191; BP diastolic 59–92; PULSE 73–102; RESP 12–17; TEMP 98.4–99; O2SAT 90–100
[2023-06-01] MEDS: ACCU-CHEK COMFORT CURVE STRIP VI SCH ×5 (00:12→23:15)
[2023-06-01] MEDS: PROPOFOL 100 ML IV SCH ×3 (00:15→18:04)
[2023-06-01] MEDS: fentaNYL Drip 2500mCg/250mlNS 250 ML IV SCH (00:17)
[2023-06-01] MEDS: hydrALAZINE HCL 20 MG/ML VL IV PRN ×3 (00:32→21:17)
[2023-06-01] MEDS: LINEZOLID 600MG/300ML 300 ML IV SCH ×2 (01:36→12:41)
[2023-06-01 04:26] LABS: Basophils # (auto) 0 10 ^3/uL (0-0.2); Basophils % (auto) 0.4 % (0.0-2.0); Eosinophils # (auto) 0.4 10 ^3/uL (0-0.8); Eosinophils % (auto) 6.1 % (0.0-7.0); Hematocrit 26.7 % (41.0-53.0); Hemoglobin 8.9 g/dL (13.5-17.5); Lymphocytes % (auto) 15.2 % (10.0-50.0); Mean Corpuscular Hgb Conc. 33.3 g/dL (32.0-36.0); Monocytes # (auto) 0.6 10 ^3/uL (0-1.3); Monocytes % (auto) 8.7 % (0.0-12.0); Neutrophils # (auto) 4.7 10 ^3/uL (1.6-8.6); Neutrophils % (auto) 69.6 % (37.0-80.0); Red Blood Cells 2.96 10^6/uL (4.5-5.90); Red Cell Distribution Width 17.6 % (11.8-14.3); White Blood Cell 6.8 10^3/uL (4.4-10.8)
[2023-06-01 04:42] LABS: Alanine Aminotransferase 11 U/L (7-40); Albumin 2.5 g/dL (3.2-4.8); Alkaline Phosphatase 110 U/L (46-116); Anion Gap 9 (5-15); Aspartate Aminotransferase 24 U/L (13-40); BUN/Creatinine Ratio 10.5 (10.0-20.0); Blood Urea Nitrogen 30 mg/dL (9-23); Calcium 8.3 mg/dL (8.7-10.4); Carbon Dioxide 24 mmol/L (20-30); Chloride 107 mmol/L (98-107); Glucose 97 mg/dL (74-106); Potassium 3.8 mmol/L (3.5-5.1); Sodium 140 mmol/L (136-145)
[2023-06-01 04:43] LABS: Bilirubin, Total 0.2 mg/dL (0.2-1.0); Total Protein 5.6 g/dL (5.7-8.2)
[2023-06-01] MEDS: FUROSEMIDE 40 MG/4 ML VIAL IV SCH (05:19)
[2023-06-01] MEDS: InsuLIN REG 1unit/0.01ml Soln (100units/ml) SC SCH ×5 (05:20→23:15)
[2023-06-01] MEDS: CEFEPIME 1GM/ 50ML 50 ML IV SCH ×3 (05:21→21:11)
[2023-06-01] MEDS: METOCLOPRAMIDE HCL 5MG/ml INJ 2ml VIAL IV SCH ×3 (05:21→21:07)
[2023-06-01] MEDS: Glucerna 1.2 Cal 1Liter BOTTLE GT SCH (05:29)
[2023-06-01] MEDS: LEVOTHYROXINE SODIUM 50 MCG TAB PO SCH (05:42)
[2023-06-01 08:34] LABS: Base Excess -0.6 mmol/L (-2.0-2.0)
[2023-06-01] MEDS: SODIUM CHLOR 0.9% PF (SALINE LOCK) 10ML VIAL/SYR IV SCH ×2 (10:10→21:08)
[2023-06-01] MEDS: ENOXAPARIN SOD 40 MG/0.4 ML SYRINGE SC SCH (10:10)
[2023-06-01] MEDS: METOPROLOL TARTRATE 25 MG TAB PO SCH ×2 (10:10→20:55)
[2023-06-01] MEDS: PANTOPRAZOLE 40 MG/10 ML VIAL INJ IV SCH (10:10)
[2023-06-01] MEDS: ALBUMIN 25% 100 ML IV SCH ×2 (13:13→22:21)
[2023-06-01] MEDS: BUMETANIDE INJECTION 12.5 MG in GIVE UN-DILUTED 0 ML IV SCH (14:53)
[2023-06-01] MEDS: MIDAZOLAM DRIP 50 mg/50mL 50 ML IV SCH (20:56)
[2023-06-02] VITALS (108 sets, daily range): BP systolic 144–199; BP diastolic 57–90; PULSE 73–99; RESP 12–16; TEMP 97.9–98.8; O2SAT 96–100
[2023-06-02] MEDS: BUMETANIDE INJECTION 12.5 MG in GIVE UN-DILUTED 0 ML IV SCH (00:51)
[2023-06-02] MEDS: PROPOFOL 100 ML IV SCH ×7 (00:54→23:18)
[2023-06-02] MEDS: fentaNYL Drip 2500mCg/250mlNS 250 ML IV SCH (00:58)
[2023-06-02] MEDS: METOPROLOL TARTRATE 1MG/1ML-5ML VIAL IV PRN ×4 (00:59→21:59)
[2023-06-02] MEDS: LINEZOLID 600MG/300ML 300 ML IV SCH ×2 (01:53→15:02)
[2023-06-02] MEDS: hydrALAZINE HCL 20 MG/ML VL IV PRN ×2 (03:15→16:23)
[2023-06-02 04:39] LABS: Mean Corpuscular Volume 90.2 fL (80.0-100.0)
[2023-06-02 04:41] LABS: Mean Corpuscular Hemoglobin 30.1 pg (28.0-32.0); Mean Corpuscular Hgb Conc. 33.4 g/dL (32.0-36.0); Red Blood Cells 2.66 10^6/uL (4.5-5.90); Red Cell Distribution Width 17.5 % (11.8-14.3); White Blood Cell 5.1 10^3/uL (4.4-10.8)
[2023-06-02 05:00] LABS: Basophils % (manual) 0 (0.0-2.0); Blast Cells 0; Metamyelocytes % 0; Myelocytes % 0; Promyelocytes % 0; Reactive Lymphocytes 0
[2023-06-02 05:08] LABS: Albumin 2.8 g/dL (3.2-4.8); Alkaline Phosphatase 87 U/L (46-116); Anion Gap 9 (5-15); Aspartate Aminotransferase 21 U/L (13-40); BUN/Creatinine Ratio 9.6 (10.0-20.0); Blood Urea Nitrogen 28 mg/dL (9-23); Calcium 8.5 mg/dL (8.7-10.4); Carbon Dioxide 23 mmol/L (20-30); Chloride 106 mmol/L (98-107); Glucose 89 mg/dL (74-106); Potassium 3.1 mmol/L (3.5-5.1); Sodium 138 mmol/L (136-145)
[2023-06-02 05:09] LABS: Bilirubin, Total 0.2 mg/dL (0.2-1.0); Total Protein 5.5 g/dL (5.7-8.2)
[2023-06-02 05:22] LABS: Alanine Aminotransferase < 9 U/L (7-40)
[2023-06-02] MEDS: InsuLIN REG 1unit/0.01ml Soln (100units/ml) SC SCH ×4 (05:49→23:29)
[2023-06-02] MEDS: LEVOTHYROXINE SODIUM 50 MCG TAB PO SCH (05:51)
[2023-06-02] MEDS: ACCU-CHEK COMFORT CURVE STRIP VI SCH ×4 (05:51→23:29)
[2023-06-02] MEDS: METOCLOPRAMIDE HCL 5MG/ml INJ 2ml VIAL IV SCH ×3 (05:58→21:56)
[2023-06-02] MEDS ORDERED: LABETALOL HCL 5 MG/ML 4ML SYRINGE IV ONE (06:00)
[2023-06-02] MEDS: POTASSIUM CHL 20MEQ/100ML 100 ML IV SCH ×2 (06:35→08:39)
[2023-06-02 09:19] LABS: Band Neutrophils % (manual) 3; Eosinophils % (manual) 7 (0-7); Lymphocytes % (manual) 19 (10.0-50.0); Monocytes % (manual) 8 (0-12)
[2023-06-02 09:20] LABS: Anisocytosis Slight; Platelet Estimate Adequate; Tear Drop Cells FEW
[2023-06-02 09:20] LABS: Base Excess -0.8 mmol/L (-2.0-2.0)
[2023-06-02] MEDS: METOPROLOL TARTRATE 25 MG TAB PO SCH ×3 (10:00→21:58)
[2023-06-02] MEDS: ENOXAPARIN SOD 40 MG/0.4 ML SYRINGE SC SCH (10:06)
[2023-06-02] MEDS: SODIUM CHLOR 0.9% PF (SALINE LOCK) 10ML VIAL/SYR IV SCH ×2 (10:06→21:58)
[2023-06-02] MEDS: PANTOPRAZOLE 40 MG/10 ML VIAL INJ IV SCH (10:06)
[2023-06-02] MEDS: CEFEPIME 1GM/ 50ML 50 ML IV SCH ×2 (10:10→21:56)
[2023-06-02] MEDS ORDERED: POTASSIUM CHL 20MEQ/100ML 100 ML IV ONE (10:15)
[2023-06-02] MEDS: ALBUMIN 25% 100 ML IV SCH (11:36)
[2023-06-02] MEDS: LABETALOL HCL 5 MG/ML 4ML SYRINGE IV PRN ×2 (17:26→23:22)
[2023-06-02] MEDS: MIDAZOLAM DRIP 50 mg/50mL 50 ML IV SCH (23:30)
[2023-06-03] VITALS (107 sets, daily range): BP systolic 135–224; BP diastolic 59–88; PULSE 69–89; RESP 12–19; TEMP 93.9–99; O2SAT 85–100
[2023-06-03] MEDS: hydrALAZINE HCL 20 MG/ML VL IV PRN ×2 (01:31→08:33)
[2023-06-03] MEDS: LINEZOLID 600MG/300ML 300 ML IV SCH ×3 (01:33→23:31)
[2023-06-03] MEDS: PROPOFOL 100 ML IV SCH ×7 (02:36→23:33)
[2023-06-03 04:13] LABS: Basophils # (auto) 0 10 ^3/uL (0-0.2); Lymphocytes # (auto) 0.9 10 ^3/uL (0.4-5.4); Mean Corpuscular Volume 90.1 fL (80.0-100.0); Monocytes # (auto) 0.5 10 ^3/uL (0-1.3); Neutrophils # (auto) 2.9 10 ^3/uL (1.6-8.6)
[2023-06-03 04:16] LABS: Basophils % (auto) 0.5 % (0.0-2.0); Eosinophils # (auto) 0.2 10 ^3/uL (0-0.8); Eosinophils % (auto) 5.4 % (0.0-7.0); Hematocrit 23.2 % (41.0-53.0); Hemoglobin 7.8 g/dL (13.5-17.5); Lymphocytes % (auto) 19.4 % (10.0-50.0); Mean Corpuscular Hemoglobin 30.1 pg (28.0-32.0); Mean Corpuscular Hgb Conc. 33.4 g/dL (32.0-36.0); Neutrophils % (auto) 63.7 % (37.0-80.0); Nucleated Red Blood Cells % 0.1 %; Red Blood Cells 2.57 10^6/uL (4.5-5.90); White Blood Cell 4.5 10^3/uL (4.4-10.8)
[2023-06-03 04:36] LABS: Alkaline Phosphatase 84 U/L (46-116); Anion Gap 8 (5-15); BUN/Creatinine Ratio 9.4 (10.0-20.0); Blood Urea Nitrogen 28 mg/dL (9-23); Calcium 8.6 mg/dL (8.7-10.4); Carbon Dioxide 24 mmol/L (20-30); Chloride 107 mmol/L (98-107); Glucose 94 mg/dL (74-106); Potassium 3.3 mmol/L (3.5-5.1); Sodium 139 mmol/L (136-145)
[2023-06-03 04:37] LABS: Albumin 2.7 g/dL (3.2-4.8); Aspartate Aminotransferase 18 U/L (13-40)
[2023-06-03 04:38] LABS: Alanine Aminotransferase < 9 U/L (7-40); Bilirubin, Total < 0.2 mg/dL (0.2-1.0); Total Protein 5.4 g/dL (5.7-8.2)
[2023-06-03] MEDS ORDERED: POTASSIUM CHL 20MEQ/100ML 100 ML IV ONE ×2 (05:00→12:30)
[2023-06-03] MEDS: METOCLOPRAMIDE HCL 5MG/ml INJ 2ml VIAL IV SCH ×3 (05:44→21:18)
[2023-06-03] MEDS: ACCU-CHEK COMFORT CURVE STRIP VI SCH ×4 (05:44→23:31)
[2023-06-03] MEDS: fentaNYL Drip 2500mCg/250mlNS 250 ML IV SCH (05:44)
[2023-06-03] MEDS: InsuLIN REG 1unit/0.01ml Soln (100units/ml) SC SCH ×4 (05:44→23:35)
[2023-06-03] MEDS: LEVOTHYROXINE SODIUM 50 MCG TAB PO SCH (05:46)
[2023-06-03] MEDS: LABETALOL HCL 5 MG/ML 4ML SYRINGE IV PRN ×2 (05:53→15:25)
[2023-06-03] MEDS: BUMETANIDE INJECTION 12.5 MG in GIVE UN-DILUTED 0 ML IV SCH (08:25)
[2023-06-03] MEDS: ENOXAPARIN SOD 30 MG/0.3 ML SYRINGE SC SCH (09:55)
[2023-06-03] MEDS: CEFEPIME 1GM/ 50ML 50 ML IV SCH ×2 (09:55→21:18)
[2023-06-03] MEDS: PANTOPRAZOLE 40 MG/10 ML VIAL INJ IV SCH (09:56)
[2023-06-03] MEDS: SODIUM CHLOR 0.9% PF (SALINE LOCK) 10ML VIAL/SYR IV SCH ×2 (09:56→21:19)
[2023-06-03] MEDS: METOPROLOL TARTRATE 25 MG TAB PO SCH ×2 (10:00→21:19)
[2023-06-03 17:59] LABS: Body Fluid Polymorphonuclear 3 % (0-25); Body Fluid Red Blood Cells 180 CUMM (0-2000); Body Fluid White Blood Cells 175 CUMM (0-200); Body Fluid pH 8
[2023-06-03 18:04] LABS: Body Fluid pH 8
[2023-06-03 18:05] LABS: Body Fluid Polymorphonuclear 7 % (0-25); Body Fluid Red Blood Cells 465 CUMM (0-2000); Body Fluid White Blood Cells 530 CUMM (0-200)
[2023-06-03] MEDS: MIDAZOLAM DRIP 50 mg/50mL 50 ML IV SCH (23:26)
[2023-06-04] VITALS (103 sets, daily range): BP systolic 119–178; BP diastolic 54–81; PULSE 76–87; RESP 14–17; TEMP 97.3–98.8; O2SAT 96–99
[2023-06-04] MEDS: BUMETANIDE INJECTION 12.5 MG in GIVE UN-DILUTED 0 ML IV SCH ×2 (03:31→15:03)
[2023-06-04] MEDS: PROPOFOL 100 ML IV SCH ×4 (03:31→21:12)
[2023-06-04] MEDS: LABETALOL HCL 5 MG/ML 4ML SYRINGE IV PRN (03:43)
[2023-06-04 03:54] LABS: Basophils # (auto) 0 10 ^3/uL (0-0.2); Basophils % (auto) 0.4 % (0.0-2.0); Eosinophils # (auto) 0.4 10 ^3/uL (0-0.8); Eosinophils % (auto) 7.8 % (0.0-7.0); Hematocrit 24.2 % (41.0-53.0); Lymphocytes # (auto) 0.8 10 ^3/uL (0.4-5.4); Lymphocytes % (auto) 14.7 % (10.0-50.0); Mean Corpuscular Volume 90.9 fL (80.0-100.0); Monocytes # (auto) 0.6 10 ^3/uL (0-1.3); Monocytes % (auto) 9.8 % (0.0-12.0); Neutrophils # (auto) 3.8 10 ^3/uL (1.6-8.6); Neutrophils % (auto) 67.3 % (37.0-80.0); Nucleated Red Blood Cells % 0.1 %; Red Blood Cells 2.66 10^6/uL (4.5-5.90); Red Cell Distribution Width 16.8 % (11.8-14.3); White Blood Cell 5.7 10^3/uL (4.4-10.8)
[2023-06-04 03:59] LABS: Anion Gap 7 (5-15); Carbon Dioxide 25 mmol/L (20-30); Chloride 107 mmol/L (98-107); Potassium 3.3 mmol/L (3.5-5.1); Sodium 139 mmol/L (136-145)
[2023-06-04 04:00] LABS: Calcium 8.5 mg/dL (8.7-10.4)
[2023-06-04 04:05] LABS: BUN/Creatinine Ratio 9.5 (10.0-20.0); Blood Urea Nitrogen 29 mg/dL (9-23); Glucose 82 mg/dL (74-106)
[2023-06-04] MEDS: ACCU-CHEK COMFORT CURVE STRIP VI SCH ×3 (05:53→17:53)
[2023-06-04] MEDS: InsuLIN REG 1unit/0.01ml Soln (100units/ml) SC SCH ×3 (05:53→17:54)
[2023-06-04] MEDS: METOCLOPRAMIDE HCL 5MG/ml INJ 2ml VIAL IV SCH ×3 (06:03→21:11)
[2023-06-04] MEDS: fentaNYL Drip 2500mCg/250mlNS 250 ML IV SCH ×2 (06:03→21:52)
[2023-06-04] MEDS: LEVOTHYROXINE SODIUM 50 MCG TAB PO SCH (06:03)
[2023-06-04] MEDS ORDERED: POTASSIUM EFFERVESENT TAB 25 MEQ PO ONE (07:30)
[2023-06-04 07:59] LABS: Base Excess -2.4 mmol/L (-2.0-2.0)
[2023-06-04] MEDS: SODIUM CHLOR 0.9% PF (SALINE LOCK) 10ML VIAL/SYR IV SCH ×2 (10:00→21:12)
[2023-06-04] MEDS: SILVER SULFADIAZINE 1 % TOPICAL CREAM 50GM TOP SCH (10:06)
[2023-06-04] MEDS: METOPROLOL TARTRATE 25 MG TAB PO SCH ×2 (10:28→21:10)
[2023-06-04] MEDS: PANTOPRAZOLE 40 MG/10 ML VIAL INJ IV SCH (10:28)
[2023-06-04] MEDS: ENOXAPARIN SOD 30 MG/0.3 ML SYRINGE SC SCH (10:28)
[2023-06-04] MEDS: CEFEPIME 1GM/ 50ML 50 ML IV SCH ×2 (10:33→21:11)
[2023-06-04] MEDS: LINEZOLID 600MG/300ML 300 ML IV SCH (11:52)
[2023-06-04] MEDS: Glucerna 1.2 Cal 1Liter BOTTLE GT SCH (12:45)
[2023-06-04] MEDS: MIDAZOLAM DRIP 50 mg/50mL 50 ML IV SCH (23:30)
[2023-06-05] VITALS (108 sets, daily range): BP systolic 124–205; BP diastolic 59–115; PULSE 74–98; RESP 12–20; TEMP 98.6–99.7; O2SAT 93–100
[2023-06-05] MEDS: ACCU-CHEK COMFORT CURVE STRIP VI SCH ×4 (00:12→18:04)
[2023-06-05] MEDS: LINEZOLID 600MG/300ML 300 ML IV SCH ×2 (01:07→14:23)
[2023-06-05] MEDS: PROPOFOL 100 ML IV SCH (01:07)
[2023-06-05] MEDS: LABETALOL HCL 5 MG/ML 4ML SYRINGE IV PRN ×3 (03:20→14:21)
[2023-06-05 04:15] LABS: Basophils # (auto) 0 10 ^3/uL (0-0.2); Basophils % (auto) 0.7 % (0.0-2.0); Eosinophils # (auto) 0.6 10 ^3/uL (0-0.8); Lymphocytes # (auto) 1.1 10 ^3/uL (0.4-5.4); Monocytes # (auto) 0.6 10 ^3/uL (0-1.3); Neutrophils # (auto) 3.3 10 ^3/uL (1.6-8.6); Red Cell Distribution Width 16.5 % (11.8-14.3); White Blood Cell 5.6 10^3/uL (4.4-10.8)
[2023-06-05 04:18] LABS: Eosinophils % (auto) 10.6 % (0.0-7.0); Hematocrit 24.5 % (41.0-53.0); Lymphocytes % (auto) 19.1 % (10.0-50.0); Mean Corpuscular Hemoglobin 29.6 pg (28.0-32.0); Mean Corpuscular Hgb Conc. 32.8 g/dL (32.0-36.0); Mean Corpuscular Volume 90.1 fL (80.0-100.0); Monocytes % (auto) 10.9 % (0.0-12.0); Neutrophils % (auto) 58.7 % (37.0-80.0); Nucleated Red Blood Cells % 0.1 %; Red Blood Cells 2.72 10^6/uL (4.5-5.90)
[2023-06-05 04:37] LABS: Albumin 2.5 g/dL (3.2-4.8); Alkaline Phosphatase 95 U/L (46-116); Anion Gap 10 (5-15); Aspartate Aminotransferase 21 U/L (13-40); BUN/Creatinine Ratio 9.4 (10.0-20.0); Bilirubin, Total < 0.2 mg/dL (0.2-1.0); Blood Urea Nitrogen 29 mg/dL (9-23); Calcium 8.5 mg/dL (8.7-10.4); Carbon Dioxide 25 mmol/L (20-30); Chloride 105 mmol/L (98-107); Glucose 95 mg/dL (74-106); Potassium 3.4 mmol/L (3.5-5.1); Sodium 140 mmol/L (136-145); Total Protein 5.4 g/dL (5.7-8.2)
[2023-06-05 04:57] LABS: Alanine Aminotransferase < 9 U/L (7-40)
[2023-06-05] MEDS: InsuLIN REG 1unit/0.01ml Soln (100units/ml) SC SCH ×4 (05:59→18:00)
[2023-06-05] MEDS: METOCLOPRAMIDE HCL 5MG/ml INJ 2ml VIAL IV SCH ×3 (06:05→22:27)
[2023-06-05] MEDS: LEVOTHYROXINE SODIUM 50 MCG TAB PO SCH (06:05)
[2023-06-05 07:14] LABS: Base Excess 0.4 mmol/L (-2.0-2.0)
[2023-06-05] MEDS ORDERED: POTASSIUM EFFERVESENT TAB 25 MEQ PO ONE (08:30)
[2023-06-05] MEDS: PANTOPRAZOLE 40 MG/10 ML VIAL INJ IV SCH (10:22)
[2023-06-05] MEDS: SODIUM CHLOR 0.9% PF (SALINE LOCK) 10ML VIAL/SYR IV SCH ×2 (10:22→22:27)
[2023-06-05] MEDS: CEFEPIME 1GM/ 50ML 50 ML IV SCH ×2 (10:22→22:27)
[2023-06-05] MEDS: METOPROLOL TARTRATE 25 MG TAB PO SCH (10:23)
[2023-06-05] MEDS: ENOXAPARIN SOD 30 MG/0.3 ML SYRINGE SC SCH (10:27)
[2023-06-05] MEDS: SILVER SULFADIAZINE 1 % TOPICAL CREAM 50GM TOP SCH (10:27)
[2023-06-05] MEDS: hydrALAZINE HCL 20 MG/ML VL IV PRN (11:44)
[2023-06-05 13:06] LABS: Protein, Body Fluid 1.9 g/dL (.)
[2023-06-05] MEDS ORDERED: METOPROLOL TARTRATE 25 MG TAB PO ONE (14:00)
[2023-06-05] MEDS ORDERED: amLODIPine BESYLATE 5 MG TAB PO ONE (14:00)
[2023-06-05] MEDS: fentaNYL Drip 2500mCg/250mlNS 250 ML IV SCH (16:02)
[2023-06-05] MEDS: BUMETANIDE 2.5mg/10ml (0.25 mg/ml) INJ IV SCH (18:04)
[2023-06-05] MEDS ORDERED: METOPROLOL TARTRATE 25 MG TAB PO SCH (22:00)
[2023-06-05] MEDS: MIDAZOLAM DRIP 50 mg/50mL 50 ML IV SCH (23:30)
[2023-06-06] VITALS (107 sets, daily range): BP systolic 110–182; BP diastolic 52–88; PULSE 80–107; RESP 13–25; TEMP 98.4–99.5; O2SAT 93–100
[2023-06-06] MEDS: ACCU-CHEK COMFORT CURVE STRIP VI SCH ×5 (00:14→23:42)
[2023-06-06] MEDS: LINEZOLID 600MG/300ML 300 ML IV SCH ×2 (03:22→13:07)
[2023-06-06 04:36] LABS: Basophils # (auto) 0 10 ^3/uL (0-0.2); Basophils % (auto) 0.6 % (0.0-2.0); Eosinophils # (auto) 0.1 10 ^3/uL (0-0.8); Eosinophils % (auto) 1.3 % (0.0-7.0); Hematocrit 26.4 % (41.0-53.0); Hemoglobin 8.7 g/dL (13.5-17.5); Lymphocytes # (auto) 1.1 10 ^3/uL (0.4-5.4); Lymphocytes % (auto) 14.5 % (10.0-50.0); Monocytes # (auto) 0.8 10 ^3/uL (0-1.3); Monocytes % (auto) 10.9 % (0.0-12.0); Neutrophils # (auto) 5.6 10 ^3/uL (1.6-8.6); Neutrophils % (auto) 72.7 % (37.0-80.0); Red Cell Distribution Width 16.5 % (11.8-14.3); White Blood Cell 7.7 10^3/uL (4.4-10.8)
[2023-06-06 05:11] LABS: Albumin 2.7 g/dL (3.2-4.8); Alkaline Phosphatase 101 U/L (46-116); Anion Gap 9 (5-15); Aspartate Aminotransferase 18 U/L (13-40); BUN/Creatinine Ratio 10.7 (10.0-20.0); Bilirubin, Total 0.2 mg/dL (0.2-1.0); Blood Urea Nitrogen 33 mg/dL (9-23); Calcium 8.8 mg/dL (8.5-10.1); Carbon Dioxide 25 mmol/L (20-30); Chloride 105 mmol/L (98-107); Glucose 103 mg/dL (74-106); Potassium 3.5 mmol/L (3.5-5.1); Sodium 139 mmol/L (136-145)
[2023-06-06 05:12] LABS: Total Protein 5.8 g/dL (5.7-8.2)
[2023-06-06 05:33] LABS: Alanine Aminotransferase < 9 U/L (7-40)
[2023-06-06] MEDS: InsuLIN REG 1unit/0.01ml Soln (100units/ml) SC SCH ×5 (05:57→23:43)
[2023-06-06] MEDS: BUMETANIDE 2.5mg/10ml (0.25 mg/ml) INJ IV SCH ×2 (06:11→18:04)
[2023-06-06] MEDS: METOCLOPRAMIDE HCL 5MG/ml INJ 2ml VIAL IV SCH ×3 (06:11→21:17)
[2023-06-06] MEDS: LEVOTHYROXINE SODIUM 50 MCG TAB PO SCH (06:12)
[2023-06-06] MEDS: LABETALOL HCL 5 MG/ML 4ML SYRINGE IV PRN (06:39)
[2023-06-06 07:20] LABS: Base Excess -0.6 mmol/L (-2.0-2.0)
[2023-06-06] MEDS: DexmedeTOMIDine 200 MCG in D5W 5% 48 ML IV SCH ×2 (09:00→22:10)
[2023-06-06] MEDS: CEFEPIME 1GM/ 50ML 50 ML IV SCH (09:45)
[2023-06-06] MEDS: ENOXAPARIN SOD 30 MG/0.3 ML SYRINGE SC SCH (09:48)
[2023-06-06] MEDS: PANTOPRAZOLE 40 MG/10 ML VIAL INJ IV SCH (09:48)
[2023-06-06] MEDS: SODIUM CHLOR 0.9% PF (SALINE LOCK) 10ML VIAL/SYR IV SCH ×2 (09:49→21:17)
[2023-06-06] MEDS: METOPROLOL TARTRATE 50 MG TAB PO SCH ×2 (09:53→21:17)
[2023-06-06] MEDS: SILVER SULFADIAZINE 1 % TOPICAL CREAM 50GM TOP SCH (09:54)
[2023-06-06] MEDS ORDERED: amLODIPine BESYLATE 5 MG TAB PO SCH (10:00)
[2023-06-06] MEDS: POTASSIUM CHL 20MEQ/100ML 100 ML IV SCH ×2 (13:07→15:20)
[2023-06-06] MEDS: PROPOFOL 100 ML IV SCH (21:45)
[2023-06-06] MEDS: MIDAZOLAM DRIP 50 mg/50mL 50 ML IV SCH (23:30)
[2023-06-07] VITALS (113 sets, daily range): BP systolic 122–162; BP diastolic 58–85; PULSE 84–119; RESP 11–27; TEMP 80.8–99.7; O2SAT 93–100
[2023-06-07] MEDS: LINEZOLID 600MG/300ML 300 ML IV SCH ×2 (00:17→13:53)
[2023-06-07 04:49] LABS: Albumin 3.1 g/dL (3.2-4.8); Alkaline Phosphatase 109 U/L (46-116); Anion Gap 9 (5-15); Aspartate Aminotransferase 31 U/L (13-40); BUN/Creatinine Ratio 9.7 (10.0-20.0); Bilirubin, Total 0.2 mg/dL (0.2-1.0); Blood Urea Nitrogen 30 mg/dL (9-23); Calcium 9.5 mg/dL (8.5-10.1); Carbon Dioxide 23 mmol/L (20-30); Chloride 103 mmol/L (98-107); Glucose 125 mg/dL (74-106); Potassium 3.8 mmol/L (3.5-5.1); Sodium 135 mmol/L (136-145); Total Protein 6.7 g/dL (5.7-8.2)
[2023-06-07 04:57] LABS: CRP High Sensitivity 4.87 mg/dL (<1.0)
[2023-06-07 05:22] LABS: Alanine Aminotransferase 9 U/L (7-40)
[2023-06-07 05:34] LABS: Basophils # (auto) 0.1 10 ^3/uL (0-0.2); Basophils % (auto) 0.6 % (0.0-2.0); Eosinophils # (auto) 0 10 ^3/uL (0-0.8); Eosinophils % (auto) 0.3 % (0.0-7.0); Hematocrit 30.1 % (41.0-53.0); Hemoglobin 9.7 g/dL (13.5-17.5); Lymphocytes # (auto) 1.3 10 ^3/uL (0.4-5.4); Lymphocytes % (auto) 14.7 % (10.0-50.0); Mean Corpuscular Hemoglobin 29.4 pg (28.0-32.0); Mean Corpuscular Hgb Conc. 32.1 g/dL (32.0-36.0); Mean Corpuscular Volume 91.6 fL (80.0-100.0); Monocytes # (auto) 0.5 10 ^3/uL (0-1.3); Monocytes % (auto) 5.8 % (0.0-12.0); Neutrophils # (auto) 7.1 10 ^3/uL (1.6-8.6); Neutrophils % (auto) 78.6 % (37.0-80.0); Nucleated Red Blood Cells % 0.1 %; Red Blood Cells 3.29 10^6/uL (4.5-5.90); Red Cell Distribution Width 16.7 % (11.8-14.3)
[2023-06-07] MEDS: InsuLIN REG 1unit/0.01ml Soln (100units/ml) SC SCH ×4 (06:00→23:44)
[2023-06-07] MEDS: METOCLOPRAMIDE HCL 5MG/ml INJ 2ml VIAL IV SCH ×3 (06:17→21:18)
[2023-06-07] MEDS: ACCU-CHEK COMFORT CURVE STRIP VI SCH ×4 (06:17→23:44)
[2023-06-07] MEDS: LEVOTHYROXINE SODIUM 50 MCG TAB PO SCH (06:17)
[2023-06-07 06:19] LABS: Magnesium 2.2 mg/dL (1.6-2.6)
[2023-06-07] MEDS: BUMETANIDE 2.5mg/10ml (0.25 mg/ml) INJ IV SCH ×2 (06:38→18:31)
[2023-06-07 06:42] LABS: Base Excess -4.3 mmol/L (-2.0-2.0)
[2023-06-07] MEDS: DexmedeTOMIDine 200 MCG in D5W 5% 48 ML IV SCH (06:54)
[2023-06-07] MEDS: ENOXAPARIN SOD 30 MG/0.3 ML SYRINGE SC SCH (09:50)
[2023-06-07] MEDS: CEFEPIME 1GM/ 50ML 50 ML IV SCH (09:50)
[2023-06-07] MEDS: PANTOPRAZOLE 40 MG/10 ML VIAL INJ IV SCH (09:50)
[2023-06-07] MEDS: SODIUM CHLOR 0.9% PF (SALINE LOCK) 10ML VIAL/SYR IV SCH ×2 (09:51→21:18)
[2023-06-07] MEDS: METOPROLOL TARTRATE 50 MG TAB PO SCH (09:53)
[2023-06-07] MEDS: SILVER SULFADIAZINE 1 % TOPICAL CREAM 50GM TOP SCH (10:50)
[2023-06-07] MEDS: CARVEDILOL 12.5 MG TAB PO SCH (21:17)
[2023-06-07] MEDS: hydrALAZINE HCL 25 MG TAB PO SCH (21:17)
[2023-06-07] MEDS: PROPOFOL 100 ML IV SCH (22:10)
[2023-06-07] MEDS: MIDAZOLAM DRIP 50 mg/50mL 50 ML IV SCH (23:30)
[2023-06-08] VITALS (113 sets, daily range): BP systolic 120–157; BP diastolic 57–87; PULSE 81–110; RESP 10–26; TEMP 96.8–99.5; O2SAT 95–100
[2023-06-08] MEDS: DexmedeTOMIDine 200 MCG in D5W 5% 48 ML IV SCH ×2 (00:30→13:40)
[2023-06-08] MEDS: LINEZOLID 600MG/300ML 300 ML IV SCH ×2 (01:49→13:39)
[2023-06-08] MEDS: ACCU-CHEK COMFORT CURVE STRIP VI SCH ×3 (05:46→17:39)
[2023-06-08] MEDS: InsuLIN REG 1unit/0.01ml Soln (100units/ml) SC SCH ×3 (05:46→17:39)
[2023-06-08] MEDS: METOCLOPRAMIDE HCL 5MG/ml INJ 2ml VIAL IV SCH ×3 (05:47→21:38)
[2023-06-08] MEDS: BUMETANIDE 2.5mg/10ml (0.25 mg/ml) INJ IV SCH ×2 (05:47→18:34)
[2023-06-08] MEDS: hydrALAZINE HCL 25 MG TAB PO SCH ×3 (05:47→21:39)
[2023-06-08] MEDS: LEVOTHYROXINE SODIUM 50 MCG TAB PO SCH (06:48)
[2023-06-08 08:11] LABS: Base Excess -2.4 mmol/L (-2.0-2.0)
[2023-06-08 09:34] LABS: Basophils # (auto) 0.1 10 ^3/uL (0-0.2); Eosinophils # (auto) 0.1 10 ^3/uL (0-0.8); Hemoglobin 8.4 g/dL (13.5-17.5); Nucleated Red Blood Cells % 0.1 %
[2023-06-08 09:37] LABS: Basophils % (auto) 0.7 % (0.0-2.0); Eosinophils % (auto) 1.1 % (0.0-7.0); Hematocrit 25.2 % (41.0-53.0); Lymphocytes # (auto) 1.4 10 ^3/uL (0.4-5.4); Lymphocytes % (auto) 14.9 % (10.0-50.0); Mean Corpuscular Hemoglobin 30.3 pg (28.0-32.0); Mean Corpuscular Hgb Conc. 33.4 g/dL (32.0-36.0); Mean Corpuscular Volume 90.6 fL (80.0-100.0); Monocytes % (auto) 10.5 % (0.0-12.0); Neutrophils # (auto) 6.9 10 ^3/uL (1.6-8.6); Neutrophils % (auto) 72.8 % (37.0-80.0); Red Blood Cells 2.79 10^6/uL (4.5-5.90); Red Cell Distribution Width 16.1 % (11.8-14.3); White Blood Cell 9.5 10^3/uL (4.4-10.8)
[2023-06-08] MEDS: CEFEPIME 1GM/ 50ML 50 ML IV SCH (09:47)
[2023-06-08] MEDS: PANTOPRAZOLE 40 MG/10 ML VIAL INJ IV SCH (09:47)
[2023-06-08] MEDS: ENOXAPARIN SOD 30 MG/0.3 ML SYRINGE SC SCH (09:48)
[2023-06-08] MEDS: SODIUM CHLOR 0.9% PF (SALINE LOCK) 10ML VIAL/SYR IV SCH ×2 (09:48→21:40)
[2023-06-08 09:57] LABS: Albumin 2.7 g/dL (3.2-4.8); Alkaline Phosphatase 81 U/L (46-116); Anion Gap 11 (5-15); Aspartate Aminotransferase 21 U/L (13-40); BUN/Creatinine Ratio 10.1 (10.0-20.0); Blood Urea Nitrogen 31 mg/dL (9-23); Calcium 9.2 mg/dL (8.5-10.1); Carbon Dioxide 21 mmol/L (20-30); Chloride 101 mmol/L (98-107); Glucose 122 mg/dL (74-106); Potassium 2.8 mmol/L (3.5-5.1); Sodium 133 mmol/L (136-145)
[2023-06-08 09:58] LABS: Bilirubin, Total 0.2 mg/dL (0.2-1.0); Total Protein 5.9 g/dL (5.7-8.2)
[2023-06-08] MEDS: SILVER SULFADIAZINE 1 % TOPICAL CREAM 50GM TOP SCH (10:00)
[2023-06-08 10:01] LABS: Alanine Aminotransferase < 9 U/L (7-40)
[2023-06-08] MEDS: CARVEDILOL 12.5 MG TAB PO SCH ×2 (10:08→21:38)
[2023-06-08] MEDS: POTASSIUM CHL 20MEQ/100ML 100 ML IV SCH ×2 (11:52→13:30)
[2023-06-08] MEDS: Glucerna 1.2 Cal 1Liter BOTTLE GT SCH (17:18)
[2023-06-08] MEDS: PROPOFOL 100 ML IV SCH (21:40)
[2023-06-09] VITALS (105 sets, daily range): BP systolic 117–169; BP diastolic 59–87; PULSE 74–106; RESP 12–29; TEMP 98.4–100; O2SAT 87–100
[2023-06-09] MEDS: ACCU-CHEK COMFORT CURVE STRIP VI SCH ×5 (00:14→23:59)
[2023-06-09] MEDS: LINEZOLID 600MG/300ML 300 ML IV SCH ×2 (00:50→13:30)
[2023-06-09] MEDS: DexmedeTOMIDine 200 MCG in D5W 5% 48 ML IV SCH ×2 (02:50→11:58)
[2023-06-09 04:39] LABS: Basophils # (auto) 0.1 10 ^3/uL (0-0.2); Basophils % (auto) 0.6 % (0.0-2.0); Eosinophils # (auto) 0.1 10 ^3/uL (0-0.8); Hemoglobin 8.3 g/dL (13.5-17.5); Lymphocytes # (auto) 1.2 10 ^3/uL (0.4-5.4); Lymphocytes % (auto) 13.2 % (10.0-50.0); Mean Corpuscular Hemoglobin 29.6 pg (28.0-32.0); Mean Corpuscular Volume 91.6 fL (80.0-100.0); Monocytes # (auto) 0.6 10 ^3/uL (0-1.3); Neutrophils # (auto) 6.8 10 ^3/uL (1.6-8.6); Nucleated Red Blood Cells % 0.1 %; Red Cell Distribution Width 16.2 % (11.8-14.3)
[2023-06-09 04:46] LABS: Eosinophils % (auto) 1.3 % (0.0-7.0); Hematocrit 25.6 % (41.0-53.0); Mean Corpuscular Hgb Conc. 32.4 g/dL (32.0-36.0); Monocytes % (auto) 7.2 % (0.0-12.0); Neutrophils % (auto) 77.7 % (37.0-80.0); White Blood Cell 8.7 10^3/uL (4.4-10.8)
[2023-06-09 05:01] LABS: Albumin 2.6 g/dL (3.2-4.8); Alkaline Phosphatase 93 U/L (46-116); Anion Gap 11 (5-15); Aspartate Aminotransferase 29 U/L (13-40); BUN/Creatinine Ratio 8.8 (10.0-20.0); Bilirubin, Total 0.2 mg/dL (0.2-1.0); Blood Urea Nitrogen 28 mg/dL (9-23); Calcium 8.9 mg/dL (8.7-10.4); Carbon Dioxide 20 mmol/L (20-30); Chloride 100 mmol/L (98-107); Glucose 118 mg/dL (74-106); Potassium 2.8 mmol/L (3.5-5.1); Sodium 131 mmol/L (136-145); Total Protein 5.8 g/dL (5.7-8.2)
[2023-06-09 05:03] LABS: Alanine Aminotransferase < 9 U/L (7-40)
[2023-06-09] MEDS: POTASSIUM CHL 20MEQ/100ML 100 ML IV SCH ×5 (05:46→18:28)
[2023-06-09] MEDS: BUMETANIDE 2.5mg/10ml (0.25 mg/ml) INJ IV SCH (05:46)
[2023-06-09] MEDS: METOCLOPRAMIDE HCL 5MG/ml INJ 2ml VIAL IV SCH ×3 (05:47→21:38)
[2023-06-09] MEDS: hydrALAZINE HCL 25 MG TAB PO SCH ×3 (05:47→21:38)
[2023-06-09] MEDS: InsuLIN REG 1unit/0.01ml Soln (100units/ml) SC SCH ×4 (05:58→17:45)
[2023-06-09] MEDS: LEVOTHYROXINE SODIUM 50 MCG TAB PO SCH (06:30)
[2023-06-09 08:05] LABS: Base Excess -2.6 mmol/L (-2.0-2.0)
[2023-06-09] MEDS: ENOXAPARIN SOD 30 MG/0.3 ML SYRINGE SC SCH (10:10)
[2023-06-09] MEDS: PANTOPRAZOLE 40 MG/10 ML VIAL INJ IV SCH (10:10)
[2023-06-09] MEDS: CEFEPIME 1GM/ 50ML 50 ML IV SCH (10:10)
[2023-06-09] MEDS: SODIUM CHLOR 0.9% PF (SALINE LOCK) 10ML VIAL/SYR IV SCH ×2 (10:11→21:39)
[2023-06-09] MEDS: SILVER SULFADIAZINE 1 % TOPICAL CREAM 50GM TOP SCH (10:11)
[2023-06-09] MEDS: CARVEDILOL 12.5 MG TAB PO SCH ×2 (10:11→21:39)
[2023-06-09] MEDS ORDERED: POTASSIUM CHL 20MEQ/100ML 200 ML IV ONE (16:27)
[2023-06-09] MEDS: PROPOFOL 100 ML IV SCH (21:40)
[2023-06-10] VITALS (105 sets, daily range): BP systolic 130–190; BP diastolic 64–106; PULSE 74–114; RESP 9–27; TEMP 98.4–99.7; O2SAT 95–100
[2023-06-10] MEDS: LINEZOLID 600MG/300ML 300 ML IV SCH ×2 (00:56→13:57)
[2023-06-10] MEDS: DexmedeTOMIDine 200 MCG in D5W 5% 48 ML IV SCH ×2 (04:48→17:45)
[2023-06-10] MEDS: ACCU-CHEK COMFORT CURVE STRIP VI SCH ×3 (05:57→17:45)
[2023-06-10] MEDS: InsuLIN REG 1unit/0.01ml Soln (100units/ml) SC SCH ×4 (06:00→17:45)
[2023-06-10] MEDS: hydrALAZINE HCL 25 MG TAB PO SCH ×3 (06:03→22:13)
[2023-06-10] MEDS: LEVOTHYROXINE SODIUM 50 MCG TAB PO SCH (06:03)
[2023-06-10] MEDS: METOCLOPRAMIDE HCL 5MG/ml INJ 2ml VIAL IV SCH ×3 (06:03→22:12)
[2023-06-10 08:09] LABS: Base Excess -4.5 mmol/L (-2.0-2.0)
[2023-06-10] MEDS ORDERED: amLODIPine BESYLATE 5 MG TAB PO PRN (08:30)
[2023-06-10 08:37] LABS: Basophils # (auto) 0 10 ^3/uL (0-0.2); Basophils % (auto) 0.4 % (0.0-2.0); Eosinophils # (auto) 0.1 10 ^3/uL (0-0.8); Eosinophils % (auto) 1.3 % (0.0-7.0); Hematocrit 25.2 % (41.0-53.0); Hemoglobin 8.5 g/dL (13.5-17.5); Lymphocytes # (auto) 1.5 10 ^3/uL (0.4-5.4); Mean Corpuscular Hemoglobin 30.3 pg (28.0-32.0); Mean Corpuscular Hgb Conc. 33.9 g/dL (32.0-36.0); Mean Corpuscular Volume 89.6 fL (80.0-100.0); Monocytes # (auto) 0.7 10 ^3/uL (0-1.3); Monocytes % (auto) 8.6 % (0.0-12.0); Neutrophils # (auto) 6.1 10 ^3/uL (1.6-8.6); Neutrophils % (auto) 71.7 % (37.0-80.0); Red Blood Cells 2.81 10^6/uL (4.5-5.90); Red Cell Distribution Width 15.9 % (11.8-14.3); White Blood Cell 8.6 10^3/uL (4.4-10.8)
[2023-06-10 08:50] LABS: Chloride 101 mmol/L (98-107); Potassium 3.3 mmol/L (3.5-5.1); Sodium 131 mmol/L (136-145)
[2023-06-10 08:51] LABS: Anion Gap 11 (5-15); Calcium 9.2 mg/dL (8.5-10.1); Carbon Dioxide 19 mmol/L (20-30)
[2023-06-10 08:56] LABS: BUN/Creatinine Ratio 9.5 (10.0-20.0); Blood Urea Nitrogen 31 mg/dL (9-23); Glucose 91 mg/dL (74-106)
[2023-06-10] MEDS: CEFEPIME 1GM/ 50ML 50 ML IV SCH (10:24)
[2023-06-10] MEDS: cloNIDine HCL 0.1 MG TAB PO SCH ×2 (10:25→22:14)
[2023-06-10] MEDS: CARVEDILOL 12.5 MG TAB PO SCH ×2 (10:26→22:14)
[2023-06-10] MEDS: ENOXAPARIN SOD 80 MG/0.8ML SYRINGE SC SCH (10:26)
[2023-06-10] MEDS: PANTOPRAZOLE 40 MG/10 ML VIAL INJ IV SCH (10:26)
[2023-06-10] MEDS: SILVER SULFADIAZINE 1 % TOPICAL CREAM 50GM TOP SCH (10:27)
[2023-06-10] MEDS: SODIUM CHLOR 0.9% PF (SALINE LOCK) 10ML VIAL/SYR IV SCH ×2 (10:27→22:00)
[2023-06-10] MEDS: POTASSIUM CHL 20MEQ/50ML 50 ML IV SCH ×2 (12:32→13:20)
[2023-06-10 16:08] LABS: Potassium 3.9 mmol/L (3.5-5.1)
[2023-06-10] MEDS: LABETALOL HCL 5 MG/ML 4ML SYRINGE IV PRN ×2 (16:38→21:15)
[2023-06-10] MEDS: Glucerna 1.2 Cal 1Liter BOTTLE GT SCH (20:00)
[2023-06-10] MEDS ORDERED: MUPIROCIN 2% OINT 15gm or 22gm FOR MRSA NARES EACHNOSTRI SCH (22:00)
[2023-06-11] VITALS (109 sets, daily range): BP systolic 118–242; BP diastolic 59–98; PULSE 65–120; RESP 0–27; TEMP 86.7–99.3; O2SAT 95–100
[2023-06-11] MEDS: LABETALOL HCL 5 MG/ML 4ML SYRINGE IV PRN ×3 (02:33→09:48)
[2023-06-11 04:27] LABS: Basophils # (auto) 0 10 ^3/uL (0-0.2); Basophils % (auto) 0.7 % (0.0-2.0); Eosinophils # (auto) 0.2 10 ^3/uL (0-0.8); Monocytes # (auto) 0.5 10 ^3/uL (0-1.3); White Blood Cell 6.5 10^3/uL (4.4-10.8)
[2023-06-11 04:30] LABS: Eosinophils % (auto) 2.9 % (0.0-7.0); Hematocrit 20.5 % (41.0-53.0); Lymphocytes # (auto) 1.1 10 ^3/uL (0.4-5.4); Lymphocytes % (auto) 16.6 % (10.0-50.0); Mean Corpuscular Hemoglobin 30.4 pg (28.0-32.0); Mean Corpuscular Hgb Conc. 33.4 g/dL (32.0-36.0); Mean Corpuscular Volume 90.9 fL (80.0-100.0); Monocytes % (auto) 8.4 % (0.0-12.0); Neutrophils # (auto) 4.6 10 ^3/uL (1.6-8.6); Neutrophils % (auto) 71.4 % (37.0-80.0); Red Blood Cells 2.25 10^6/uL (4.5-5.90); Red Cell Distribution Width 16.3 % (11.8-14.3)
[2023-06-11 04:36] LABS: Albumin 2.4 g/dL (3.2-4.8); Alkaline Phosphatase 84 U/L (46-116); Anion Gap 10 (5-15); Aspartate Aminotransferase 26 U/L (13-40); BUN/Creatinine Ratio 8.8 (10.0-20.0); Bilirubin, Total 0.2 mg/dL (0.2-1.0); Blood Urea Nitrogen 30 mg/dL (9-23); Calcium 8.6 mg/dL (8.7-10.4); Carbon Dioxide 18 mmol/L (20-30); Chloride 103 mmol/L (98-107); Glucose 82 mg/dL (74-106); Magnesium 1.9 mg/dL (1.6-2.6); Potassium 3.4 mmol/L (3.5-5.1); Sodium 131 mmol/L (136-145); Total Protein 5.1 g/dL (5.7-8.2)
[2023-06-11 04:47] LABS: Alanine Aminotransferase < 9 U/L (7-40)
[2023-06-11 04:56] LABS: Hemoglobin 6.8 g/dL (13.5-17.5)
[2023-06-11 05:07] LABS: CRP High Sensitivity 3.85 mg/dL (<1.0)
[2023-06-11] MEDS: METOCLOPRAMIDE HCL 5MG/ml INJ 2ml VIAL IV SCH ×3 (05:44→22:44)
[2023-06-11] MEDS: LEVOTHYROXINE SODIUM 50 MCG TAB PO SCH (05:44)
[2023-06-11] MEDS: ACCU-CHEK COMFORT CURVE STRIP VI SCH ×4 (05:45→18:28)
[2023-06-11] MEDS: hydrALAZINE HCL 25 MG TAB PO SCH ×3 (05:45→22:45)
[2023-06-11] MEDS: InsuLIN REG 1unit/0.01ml Soln (100units/ml) SC SCH ×4 (05:55→18:00)
[2023-06-11] MEDS: DexmedeTOMIDine 200 MCG in D5W 5% 48 ML IV SCH ×2 (07:30→20:40)
[2023-06-11] MEDS ORDERED: hydrALAZINE HCL 20 MG/ML VL IV ONE (07:45)
[2023-06-11] MEDS: cloNIDine HCL 0.1 MG TAB PO SCH ×2 (07:53→22:46)
[2023-06-11] MEDS: CARVEDILOL 12.5 MG TAB PO SCH ×2 (07:54→22:45)
[2023-06-11] MEDS: PANTOPRAZOLE 40 MG/10 ML VIAL INJ IV SCH (07:54)
[2023-06-11] MEDS: amLODIPine BESYLATE 5 MG TAB PO SCH (07:54)
[2023-06-11] MEDS: ENOXAPARIN SOD 80 MG/0.8ML SYRINGE SC SCH (08:00)
[2023-06-11] MEDS: SILVER SULFADIAZINE 1 % TOPICAL CREAM 50GM TOP SCH (08:00)
[2023-06-11] MEDS: SODIUM CHLOR 0.9% PF (SALINE LOCK) 10ML VIAL/SYR IV SCH ×2 (08:00→22:00)
[2023-06-11 09:38] LABS: Base Excess -4.4 mmol/L (-2.0-2.0)
[2023-06-11] MEDS ORDERED: DEXTROSE 10% IV ONE (09:45)
[2023-06-11] MEDS: POTASSIUM CHL 20MEQ/50ML 50 ML IV SCH ×2 (09:59→11:39)
[2023-06-11] MEDS: CEFEPIME 1GM/ 50ML 50 ML IV SCH (11:42)
[2023-06-11] MEDS: NITROGLYCERIN 50MG/250ML 250 ML IV SCH (11:43)
[2023-06-11] MEDS: POTASSIUM CHL 20MEQ/100ML 100 ML IV SCH ×2 (12:30→14:21)
[2023-06-11] MEDS ORDERED: SODIUM BICARBONATE 50ML VIAL 50 ML in SOD CHL 0.45% 1,000 ML IV SCH (12:30)
[2023-06-11] MEDS ORDERED: BUMETANIDE 2.5mg/10ml (0.25 mg/ml) INJ IV ONE ×2 (14:15→15:15)
[2023-06-11] MEDS ORDERED: GLYCOPYRROLATE 0.2 MG/ML 1ML VIAL IV ONE (15:15)
[2023-06-11] MEDS ORDERED: BUMETANIDE 2.5mg/10ml (0.25 mg/ml) INJ IV SCH (22:00)
[2023-06-12] VITALS (72 sets, daily range): BP systolic 118–173; BP diastolic 52–113; PULSE 74–120; RESP 11–28; TEMP 96.4–98.6; O2SAT 92–98
[2023-06-12 04:26] LABS: Alkaline Phosphatase 86 U/L (46-116); Anion Gap 9 (5-15); BUN/Creatinine Ratio 7.9 (10.0-20.0); Blood Urea Nitrogen 28 mg/dL (9-23); Calcium 8.6 mg/dL (8.7-10.4); Carbon Dioxide 18 mmol/L (20-30); Chloride 105 mmol/L (98-107); Magnesium 1.8 mg/dL (1.6-2.6); Potassium 3.5 mmol/L (3.5-5.1); Sodium 132 mmol/L (136-145)
[2023-06-12 04:27] LABS: Albumin 2.5 g/dL (3.2-4.8); Aspartate Aminotransferase 27 U/L (13-40); Bilirubin, Total 0.2 mg/dL (0.2-1.0); Total Protein 5.3 g/dL (5.7-8.2)
[2023-06-12 04:30] LABS: Glucose 87 mg/dL (74-106)
[2023-06-12 04:41] LABS: Basophils # (auto) 0 10 ^3/uL (0-0.2); Eosinophils # (auto) 0.4 10 ^3/uL (0-0.8); Hemoglobin 8.3 g/dL (13.5-17.5); Neutrophils # (auto) 4.8 10 ^3/uL (1.6-8.6); Red Blood Cells 2.73 10^6/uL (4.5-5.90)
[2023-06-12 04:43] LABS: Basophils % (auto) 0.5 % (0.0-2.0); Eosinophils % (auto) 5.7 % (0.0-7.0); Hematocrit 24.5 % (41.0-53.0); Lymphocytes % (auto) 15.2 % (10.0-50.0); Mean Corpuscular Hemoglobin 30.3 pg (28.0-32.0); Mean Corpuscular Hgb Conc. 33.9 g/dL (32.0-36.0); Mean Corpuscular Volume 89.5 fL (80.0-100.0); Monocytes # (auto) 0.6 10 ^3/uL (0-1.3); Monocytes % (auto) 8.6 % (0.0-12.0); Red Cell Distribution Width 15.6 % (11.8-14.3); White Blood Cell 6.9 10^3/uL (4.4-10.8)
[2023-06-12 05:03] LABS: Alanine Aminotransferase < 9 U/L (7-40)
[2023-06-12] MEDS: METOCLOPRAMIDE HCL 5MG/ml INJ 2ml VIAL IV SCH ×3 (06:00→22:28)
[2023-06-12] MEDS: hydrALAZINE HCL 25 MG TAB PO SCH ×3 (06:00→22:28)
[2023-06-12] MEDS: InsuLIN REG 1unit/0.01ml Soln (100units/ml) SC SCH ×4 (06:00→17:19)
[2023-06-12] MEDS: ACCU-CHEK COMFORT CURVE STRIP VI SCH ×4 (06:00→17:19)
[2023-06-12] MEDS: LEVOTHYROXINE SODIUM 50 MCG TAB PO SCH (07:00)
[2023-06-12] MEDS: NITROGLYCERIN 50MG/250ML 250 ML IV SCH (09:45)
[2023-06-12] MEDS: DexmedeTOMIDine 200 MCG in D5W 5% 48 ML IV SCH (09:50)
[2023-06-12] MEDS ORDERED: BUMETANIDE 2.5mg/10ml (0.25 mg/ml) INJ IV SCH (10:00)
[2023-06-12] MEDS: PANTOPRAZOLE 40 MG/10 ML VIAL INJ IV SCH (11:29)
[2023-06-12] MEDS: BUMETANIDE 2.5mg/10ml (0.25 mg/ml) INJ IV SCH (11:30)
[2023-06-12] MEDS: CEFEPIME 1GM/ 50ML 50 ML IV SCH (11:30)
[2023-06-12] MEDS: SODIUM CHLOR 0.9% PF (SALINE LOCK) 10ML VIAL/SYR IV SCH ×2 (11:30→22:28)
[2023-06-12] MEDS: SILVER SULFADIAZINE 1 % TOPICAL CREAM 50GM TOP SCH (11:31)
[2023-06-12] MEDS: ENOXAPARIN SOD 80 MG/0.8ML SYRINGE SC SCH (11:31)
[2023-06-12] MEDS ORDERED: DEXTROSE 10% 250 ML IV ONE (12:04)
[2023-06-12] MEDS ORDERED: DEXTROSE 10% 250 ML Bag IV ONE (12:15)
[2023-06-12] MEDS: amLODIPine BESYLATE 5 MG TAB PO SCH (13:32)
[2023-06-12] MEDS: cloNIDine HCL 0.1 MG TAB PO SCH ×2 (13:33→22:30)
[2023-06-12] MEDS: CARVEDILOL 12.5 MG TAB PO SCH ×2 (13:33→22:29)
[2023-06-12 15:27] LABS: Base Excess -5.8 mmol/L (-2.0-2.0)
[2023-06-13] VITALS (78 sets, daily range): BP systolic 114–238; BP diastolic 52–97; PULSE 73–104; RESP 14–23; TEMP 97.2–99.4; O2SAT 91–100
[2023-06-13] MEDS: LABETALOL HCL 5 MG/ML 4ML SYRINGE IV PRN ×2 (04:04→10:11)
[2023-06-13 05:00] LABS: Basophils # (auto) 0.1 10 ^3/uL (0-0.2); Eosinophils # (auto) 0.5 10 ^3/uL (0-0.8); Eosinophils % (auto) 8.1 % (0.0-7.0); Lymphocytes # (auto) 1.2 10 ^3/uL (0.4-5.4); Monocytes # (auto) 0.5 10 ^3/uL (0-1.3); Neutrophils # (auto) 3.5 10 ^3/uL (1.6-8.6); White Blood Cell 5.7 10^3/uL (4.4-10.8)
[2023-06-13 05:03] LABS: Basophils % (auto) 1.2 % (0.0-2.0); Lymphocytes % (auto) 20.6 % (10.0-50.0); Mean Corpuscular Hemoglobin 30.4 pg (28.0-32.0); Mean Corpuscular Hgb Conc. 33.4 g/dL (32.0-36.0); Monocytes % (auto) 8.1 % (0.0-12.0); Nucleated Red Blood Cells % 0.2 %; Red Blood Cells 2.64 10^6/uL (4.5-5.90)
[2023-06-13 05:13] LABS: Anion Gap 9 (5-15); BUN/Creatinine Ratio 9.4 (10.0-20.0); Blood Urea Nitrogen 33 mg/dL (9-23); Calcium 8.7 mg/dL (8.5-10.1); Carbon Dioxide 19 mmol/L (20-30); Chloride 106 mmol/L (98-107); Glucose 85 mg/dL (74-106); Potassium 3.3 mmol/L (3.5-5.1); Sodium 134 mmol/L (136-145)
[2023-06-13 05:14] LABS: Albumin 2.3 g/dL (3.2-4.8); Aspartate Aminotransferase 23 U/L (13-40); Bilirubin, Total 0.2 mg/dL (0.2-1.0)
[2023-06-13 05:20] LABS: Alanine Aminotransferase < 9 U/L (7-40)
[2023-06-13 05:22] LABS: CRP High Sensitivity 4.96 mg/dL (<1.0)
[2023-06-13 05:34] LABS: Alkaline Phosphatase 84 U/L (46-116); Magnesium 1.8 mg/dL (1.6-2.6)
[2023-06-13] MEDS: InsuLIN REG 1unit/0.01ml Soln (100units/ml) SC SCH ×4 (06:00→17:28)
[2023-06-13] MEDS: LEVOTHYROXINE SODIUM 50 MCG TAB PO SCH (07:08)
[2023-06-13] MEDS: ACCU-CHEK COMFORT CURVE STRIP VI SCH ×4 (07:08→17:28)
[2023-06-13] MEDS: METOCLOPRAMIDE HCL 5MG/ml INJ 2ml VIAL IV SCH ×3 (07:09→22:09)
[2023-06-13] MEDS: hydrALAZINE HCL 25 MG TAB PO SCH ×3 (07:20→22:10)
[2023-06-13] MEDS ORDERED: MAGNESIUM SULFATE 1GM/100ML 100 ML IV ONE (07:30)
[2023-06-13] MEDS: POTASSIUM CHL 20MEQ/50ML 50 ML IV SCH ×2 (07:50→09:40)
[2023-06-13] MEDS: PANTOPRAZOLE 40 MG/10 ML VIAL INJ IV SCH (08:42)
[2023-06-13] MEDS: CEFEPIME 1GM/ 50ML 50 ML IV SCH (08:42)
[2023-06-13] MEDS: CARVEDILOL 12.5 MG TAB PO SCH ×2 (08:43→22:10)
[2023-06-13] MEDS: cloNIDine HCL 0.1 MG TAB PO SCH ×2 (08:43→22:09)
[2023-06-13] MEDS: SODIUM CHLOR 0.9% PF (SALINE LOCK) 10ML VIAL/SYR IV SCH ×2 (08:44→22:09)
[2023-06-13] MEDS: ENOXAPARIN SOD 80 MG/0.8ML SYRINGE SC SCH (08:44)
[2023-06-13] MEDS: amLODIPine BESYLATE 5 MG TAB PO SCH (08:44)
[2023-06-13] MEDS: BUMETANIDE 2.5mg/10ml (0.25 mg/ml) INJ IV SCH (09:44)
[2023-06-13] MEDS: SILVER SULFADIAZINE 1 % TOPICAL CREAM 50GM TOP SCH (11:15)
[2023-06-13] MEDS ORDERED: MINOXIDIL 2.5 MG TAB PO ONE (12:00)
[2023-06-13] MEDS: ALBUTEROL MEDNEB 2.5 mg/3ml NEB NEB PRN (14:39)
[2023-06-14] VITALS (99 sets, daily range): BP systolic 92–164; BP diastolic 49–87; PULSE 68–101; RESP 14–24; TEMP 97.5–98.8; O2SAT 89–100
[2023-06-14] MEDS: ACCU-CHEK COMFORT CURVE STRIP VI SCH ×5 (00:34→23:32)
[2023-06-14] MEDS: hydrALAZINE HCL 25 MG TAB PO SCH ×3 (05:47→21:53)
[2023-06-14] MEDS: METOCLOPRAMIDE HCL 5MG/ml INJ 2ml VIAL IV SCH ×3 (05:47→21:51)
[2023-06-14] MEDS: InsuLIN REG 1unit/0.01ml Soln (100units/ml) SC SCH ×5 (06:00→23:32)
[2023-06-14] MEDS: LEVOTHYROXINE SODIUM 50 MCG TAB PO SCH (06:28)
[2023-06-14] MEDS: BUMETANIDE 2.5mg/10ml (0.25 mg/ml) INJ IV SCH ×2 (09:54→19:29)
[2023-06-14] MEDS: cefTRIAXone 1GM/50ML D5W 50 ML IV SCH (09:54)
[2023-06-14] MEDS: PANTOPRAZOLE 40 MG/10 ML VIAL INJ IV SCH (09:54)
[2023-06-14] MEDS: SODIUM CHLOR 0.9% PF (SALINE LOCK) 10ML VIAL/SYR IV SCH ×2 (09:55→22:04)
[2023-06-14] MEDS: ENOXAPARIN SOD 80 MG/0.8ML SYRINGE SC SCH (09:55)
[2023-06-14] MEDS: SILVER SULFADIAZINE 1 % TOPICAL CREAM 50GM TOP SCH (09:56)
[2023-06-14] MEDS: cloNIDine HCL 0.1 MG TAB PO SCH ×2 (09:58→21:52)
[2023-06-14] MEDS: amLODIPine BESYLATE 5 MG TAB PO SCH (09:58)
[2023-06-14] MEDS: CARVEDILOL 12.5 MG TAB PO SCH ×2 (09:59→21:52)
[2023-06-14] MEDS ORDERED: MINOXIDIL 2.5 MG TAB PO SCH (10:00)
[2023-06-14 10:24] LABS: Basophils # (auto) 0.1 10 ^3/uL (0-0.2); Basophils % (auto) 0.8 % (0.0-2.0); Eosinophils # (auto) 0.5 10 ^3/uL (0-0.8); Eosinophils % (auto) 7.1 % (0.0-7.0); Hematocrit 25.3 % (41.0-53.0); Hemoglobin 8.2 g/dL (13.5-17.5); Lymphocytes # (auto) 1.2 10 ^3/uL (0.4-5.4); Lymphocytes % (auto) 18.2 % (10.0-50.0); Mean Corpuscular Hemoglobin 30.8 pg (28.0-32.0); Mean Corpuscular Hgb Conc. 32.4 g/dL (32.0-36.0); Monocytes # (auto) 0.5 10 ^3/uL (0-1.3); Monocytes % (auto) 8.2 % (0.0-12.0); Neutrophils # (auto) 4.4 10 ^3/uL (1.6-8.6); Neutrophils % (auto) 65.7 % (37.0-80.0); Nucleated Red Blood Cells % 0.1 %; Red Blood Cells 2.66 10^6/uL (4.5-5.90); Red Cell Distribution Width 16.9 % (11.8-14.3); White Blood Cell 6.7 10^3/uL (4.4-10.8)
[2023-06-14 11:03] LABS: Chloride 110 mmol/L (98-107)
[2023-06-14 11:11] LABS: Calcium 8.2 mg/dL (8.5-10.1); Carbon Dioxide 18 mmol/L (20-30)
[2023-06-14 11:13] LABS: Alkaline Phosphatase 81 U/L (46-116)
[2023-06-14 11:16] LABS: Glucose 87 mg/dL (74-106)
[2023-06-14 11:17] LABS: Albumin 2.3 g/dL (3.2-4.8); Aspartate Aminotransferase 25 U/L (13-40)
[2023-06-14 11:18] LABS: Bilirubin, Total < 0.2 mg/dL (0.2-1.0); Total Protein 4.9 g/dL (5.7-8.2)
[2023-06-14 11:27] LABS: Alanine Aminotransferase 11 U/L (7-40); Potassium 3.5 mmol/L (3.5-5.1)
[2023-06-14] MEDS ORDERED: POTASSIUM EFFERVESENT TAB 25 MEQ GT ONE (13:30)
[2023-06-14 13:46] LABS: Free T4 (Free Thyroxine) 1.1 ng/dL (0.89-1.76)
[2023-06-14 13:48] LABS: Folate (Folic Acid) 6.52 ng/mL (>5.38)
[2023-06-14 16:13] LABS: Anion Gap 7 (5-15); BUN/Creatinine Ratio 9.1 (10.0-20.0); Blood Urea Nitrogen 29 mg/dL (9-23); Sodium 135 mmol/L (136-145)
[2023-06-14] MEDS: ALBUTEROL MEDNEB 2.5 mg/3ml NEB NEB PRN (22:21)
[2023-06-15] VITALS (88 sets, daily range): BP systolic 91–162; BP diastolic 40–72; PULSE 66–102; RESP 13–42; TEMP 98.6–99.1; O2SAT 87–99
[2023-06-15 05:57] LABS: Basophils # (auto) 0.1 10 ^3/uL (0-0.2); Hemoglobin 8.3 g/dL (13.5-17.5); Monocytes # (auto) 0.5 10 ^3/uL (0-1.3); Neutrophils # (auto) 4.6 10 ^3/uL (1.6-8.6); Red Cell Distribution Width 16.4 % (11.8-14.3); White Blood Cell 6.5 10^3/uL (4.4-10.8)
[2023-06-15 05:59] LABS: Eosinophils # (auto) 0.3 10 ^3/uL (0-0.8); Eosinophils % (auto) 5.3 % (0.0-7.0); Lymphocytes # (auto) 0.9 10 ^3/uL (0.4-5.4); Lymphocytes % (auto) 14.6 % (10.0-50.0); Mean Corpuscular Hemoglobin 30.5 pg (28.0-32.0); Mean Corpuscular Volume 92.6 fL (80.0-100.0); Monocytes % (auto) 7.6 % (0.0-12.0); Neutrophils % (auto) 71.5 % (37.0-80.0); Nucleated Red Blood Cells % 0.1 %
[2023-06-15] MEDS: InsuLIN REG 1unit/0.01ml Soln (100units/ml) SC SCH ×2 (06:00→12:00)
[2023-06-15 06:05] LABS: Albumin 2.4 g/dL (3.2-4.8); Alkaline Phosphatase 86 U/L (46-116); Anion Gap 8 (5-15); Aspartate Aminotransferase 19 U/L (13-40); BUN/Creatinine Ratio 9.5 (10.0-20.0); Blood Urea Nitrogen 32 mg/dL (9-23); Calcium 8.2 mg/dL (8.7-10.4); Carbon Dioxide 18 mmol/L (20-30); Chloride 110 mmol/L (98-107); Glucose 89 mg/dL (74-106); Potassium 3.9 mmol/L (3.5-5.1); Sodium 136 mmol/L (136-145)
[2023-06-15 06:06] LABS: Bilirubin, Total < 0.2 mg/dL (0.2-1.0); Total Protein 5.1 g/dL (5.7-8.2)
[2023-06-15 06:10] LABS: Alanine Aminotransferase 9 U/L (7-40)
[2023-06-15] MEDS: LEVOTHYROXINE SODIUM 50 MCG TAB PO SCH (06:33)
[2023-06-15] MEDS: BUMETANIDE 2.5mg/10ml (0.25 mg/ml) INJ IV SCH (06:34)
[2023-06-15] MEDS: METOCLOPRAMIDE HCL 5MG/ml INJ 2ml VIAL IV SCH ×3 (06:34→21:17)
[2023-06-15] MEDS: ACCU-CHEK COMFORT CURVE STRIP VI SCH ×2 (06:34→12:00)
[2023-06-15] MEDS: hydrALAZINE HCL 25 MG TAB PO SCH ×3 (07:19→21:14)
[2023-06-15] MEDS: cefTRIAXone 1GM/50ML D5W 50 ML IV SCH (09:10)
[2023-06-15] MEDS: PANTOPRAZOLE 40 MG/10 ML VIAL INJ IV SCH (09:43)
[2023-06-15] MEDS: amLODIPine BESYLATE 5 MG TAB PO SCH (09:44)
[2023-06-15] MEDS: cloNIDine HCL 0.1 MG TAB PO SCH ×2 (09:45→21:15)
[2023-06-15] MEDS: ENOXAPARIN SOD 80 MG/0.8ML SYRINGE SC SCH (09:46)
[2023-06-15] MEDS: SODIUM CHLOR 0.9% PF (SALINE LOCK) 10ML VIAL/SYR IV SCH ×2 (09:46→21:19)
[2023-06-15] MEDS: CARVEDILOL 12.5 MG TAB PO SCH ×2 (09:46→21:16)
[2023-06-15] MEDS: MINOXIDIL 2.5 MG TAB PO SCH (09:47)
[2023-06-15] MEDS: SILVER SULFADIAZINE 1 % TOPICAL CREAM 50GM TOP SCH (09:48)
[2023-06-15] MEDS ORDERED: LORazepam 2MG/ML-1ML VIAL IV PRN (12:45)
[2023-06-15] MEDS ORDERED: metOLazone 5 MG TAB PO ONE (15:30)
[2023-06-15] MEDS ORDERED: BUMETANIDE 2.5mg/10ml (0.25 mg/ml) INJ IV ONE (16:00)
[2023-06-16] VITALS (27 sets, daily range): BP systolic 103–135; BP diastolic 50–85; PULSE 81–92; RESP 13–22; TEMP 97.5–98.7; O2SAT 93–99
[2023-06-16] MEDS ORDERED: BUMETANIDE 2.5mg/10ml (0.25 mg/ml) INJ IV SCH (06:00)
[2023-06-16] MEDS: LEVOTHYROXINE SODIUM 50 MCG TAB PO SCH (06:13)
[2023-06-16] MEDS: hydrALAZINE HCL 25 MG TAB PO SCH ×3 (06:14→22:00)
[2023-06-16] MEDS: METOCLOPRAMIDE HCL 5MG/ml INJ 2ml VIAL IV SCH ×3 (06:14→22:33)
[2023-06-16 06:38] LABS: Mean Corpuscular Hemoglobin 30.1 pg (28.0-32.0); White Blood Cell 5.7 10^3/uL (4.4-10.8)
[2023-06-16 06:40] LABS: Hematocrit 24.4 % (41.0-53.0); Hemoglobin 7.9 g/dL (13.5-17.5); Mean Corpuscular Hgb Conc. 32.5 g/dL (32.0-36.0); Mean Corpuscular Volume 92.6 fL (80.0-100.0); Red Blood Cells 2.64 10^6/uL (4.5-5.90); Red Cell Distribution Width 16.7 % (11.8-14.3)
[2023-06-16 06:44] LABS: Alkaline Phosphatase 84 U/L (46-116); Anion Gap 9 (5-15); BUN/Creatinine Ratio 8.6 (10.0-20.0); Blood Urea Nitrogen 30 mg/dL (9-23); Calcium 8.6 mg/dL (8.7-10.4); Carbon Dioxide 18 mmol/L (20-30); Chloride 110 mmol/L (98-107); Glucose 92 mg/dL (74-106); Magnesium 2.1 mg/dL (1.6-2.6); Potassium 3.9 mmol/L (3.5-5.1); Sodium 137 mmol/L (136-145)
[2023-06-16 06:45] LABS: Albumin 2.4 g/dL (3.2-4.8); Aspartate Aminotransferase 16 U/L (13-40)
[2023-06-16 06:46] LABS: Bilirubin, Total < 0.2 mg/dL (0.2-1.0); Total Protein 5.2 g/dL (5.7-8.2)
[2023-06-16 07:08] LABS: Alanine Aminotransferase < 9 U/L (7-40)
[2023-06-16 07:12] LABS: Basophils % (manual) 0 (0.0-2.0); Blast Cells 0; Promyelocytes % 0; Reactive Lymphocytes 0
[2023-06-16 09:26] LABS: Band Neutrophils % (manual) 4; Eosinophils % (manual) 4 (0-7); Lymphocytes % (manual) 12 (10.0-50.0); Metamyelocytes % 2; Monocytes % (manual) 2 (0-12); Myelocytes % 1; Platelet Estimate Adequate
[2023-06-16] MEDS: cefTRIAXone 1GM/50ML D5W 50 ML IV SCH (09:32)
[2023-06-16] MEDS: PANTOPRAZOLE 40 MG/10 ML VIAL INJ IV SCH (09:32)
[2023-06-16] MEDS: SODIUM CHLOR 0.9% PF (SALINE LOCK) 10ML VIAL/SYR IV SCH ×2 (09:33→22:34)
[2023-06-16] MEDS: cloNIDine HCL 0.1 MG TAB PO SCH ×2 (09:33→22:00)
[2023-06-16] MEDS: CARVEDILOL 12.5 MG TAB PO SCH ×2 (09:34→22:35)
[2023-06-16] MEDS: MINOXIDIL 2.5 MG TAB PO SCH (09:35)
[2023-06-16] MEDS: amLODIPine BESYLATE 5 MG TAB PO SCH (09:35)
[2023-06-16] MEDS: ENOXAPARIN SOD 80 MG/0.8ML SYRINGE SC SCH (09:36)
[2023-06-16] MEDS: SILVER SULFADIAZINE 1 % TOPICAL CREAM 50GM TOP SCH (09:36)
[2023-06-16] MEDS: IPRATROPIUM BROM 0.5 MG/2.5ML INH SOL NEB SCH ×2 (14:51→23:54)
[2023-06-16] MEDS: ALBUTEROL MEDNEB 2.5 mg/3ml NEB NEB PRN ×2 (14:51→23:54)
[2023-06-17] VITALS (15 sets, daily range): BP systolic 118–147; BP diastolic 49–59; PULSE 90–108; RESP 16–20; TEMP 99.2–100.7; O2SAT 94–100
[2023-06-17] MEDS: LEVOTHYROXINE SODIUM 50 MCG TAB PO SCH (05:37)
[2023-06-17] MEDS: METOCLOPRAMIDE HCL 5MG/ml INJ 2ml VIAL IV SCH ×3 (05:37→21:44)
[2023-06-17] MEDS: hydrALAZINE HCL 25 MG TAB PO SCH ×3 (05:37→21:45)
[2023-06-17] MEDS: ALBUTEROL MEDNEB 2.5 mg/3ml NEB NEB PRN ×3 (06:38→23:30)
[2023-06-17] MEDS: IPRATROPIUM BROM 0.5 MG/2.5ML INH SOL NEB SCH ×3 (06:38→23:30)
[2023-06-17 06:43] LABS: Basophils # (auto) 0.1 10 ^3/uL (0-0.2); Eosinophils # (auto) 0.2 10 ^3/uL (0-0.8); Hematocrit 23.6 % (41.0-53.0); Hemoglobin 7.9 g/dL (13.5-17.5); Lymphocytes # (auto) 1.1 10 ^3/uL (0.4-5.4); Mean Corpuscular Hemoglobin 31.2 pg (28.0-32.0); Mean Corpuscular Hgb Conc. 33.5 g/dL (32.0-36.0); Monocytes # (auto) 0.4 10 ^3/uL (0-1.3); Red Blood Cells 2.54 10^6/uL (4.5-5.90); White Blood Cell 5.3 10^3/uL (4.4-10.8)
[2023-06-17 06:46] LABS: Basophils % (auto) 1.1 % (0.0-2.0); Eosinophils % (auto) 4.7 % (0.0-7.0); Lymphocytes % (auto) 20.8 % (10.0-50.0); Monocytes % (auto) 8.5 % (0.0-12.0); Neutrophils # (auto) 3.4 10 ^3/uL (1.6-8.6); Neutrophils % (auto) 64.9 % (37.0-80.0)
[2023-06-17 08:04] LABS: Alkaline Phosphatase 88 U/L (46-116); Anion Gap 10 (5-15); BUN/Creatinine Ratio 8.9 (10.0-20.0); Blood Urea Nitrogen 33 mg/dL (9-23); Carbon Dioxide 19 mmol/L (20-30); Chloride 110 mmol/L (98-107); Glucose 91 mg/dL (74-106); Potassium 3.7 mmol/L (3.5-5.1); Sodium 139 mmol/L (136-145)
[2023-06-17 08:05] LABS: Albumin 2.4 g/dL (3.2-4.8); Aspartate Aminotransferase 17 U/L (13-40); Bilirubin, Total < 0.2 mg/dL (0.2-1.0); Total Protein 5.2 g/dL (5.7-8.2)
[2023-06-17 08:13] LABS: CRP High Sensitivity 6.06 mg/dL (<1.0)
[2023-06-17 08:14] LABS: Alanine Aminotransferase < 9 U/L (7-40)
[2023-06-17] MEDS: cefTRIAXone 1GM/50ML D5W 50 ML IV SCH (09:34)
[2023-06-17] MEDS: SILVER SULFADIAZINE 1 % TOPICAL CREAM 50GM TOP SCH (09:46)
[2023-06-17] MEDS: ENOXAPARIN SOD 80 MG/0.8ML SYRINGE SC SCH (09:46)
[2023-06-17] MEDS: PANTOPRAZOLE 40 MG/10 ML VIAL INJ IV SCH (09:47)
[2023-06-17] MEDS: BUMETANIDE 2.5mg/10ml (0.25 mg/ml) INJ IV SCH (09:47)
[2023-06-17] MEDS: amLODIPine BESYLATE 5 MG TAB PO SCH (09:47)
[2023-06-17] MEDS: cloNIDine HCL 0.1 MG TAB PO SCH ×2 (09:48→21:46)
[2023-06-17] MEDS: SODIUM CHLOR 0.9% PF (SALINE LOCK) 10ML VIAL/SYR IV SCH ×2 (09:48→22:02)
[2023-06-17] MEDS: CARVEDILOL 12.5 MG TAB PO SCH ×2 (11:35→21:46)
[2023-06-17] MEDS ORDERED: SODIUM CHLORIDE 0.9% 500 ML IV ONE (12:45)
[2023-06-17] MEDS: MINOXIDIL 2.5 MG TAB PO SCH (15:13)
[2023-06-18] VITALS (13 sets, daily range): BP systolic 90–154; BP diastolic 42–75; PULSE 96–105; RESP 18–24; TEMP 98.6–99.6; O2SAT 94–100
[2023-06-18] MEDS: LEVOTHYROXINE SODIUM 50 MCG TAB PO SCH (06:37)
[2023-06-18] MEDS: METOCLOPRAMIDE HCL 5MG/ml INJ 2ml VIAL IV SCH ×3 (06:37→21:58)
[2023-06-18] MEDS: hydrALAZINE HCL 25 MG TAB PO SCH ×3 (06:37→22:00)
[2023-06-18] MEDS: ALBUTEROL MEDNEB 2.5 mg/3ml NEB NEB PRN ×3 (06:55→21:42)
[2023-06-18] MEDS: IPRATROPIUM BROM 0.5 MG/2.5ML INH SOL NEB SCH ×3 (06:55→21:42)
[2023-06-18 09:57] LABS: Basophils # (auto) 0.1 10 ^3/uL (0-0.2); Eosinophils # (auto) 0.2 10 ^3/uL (0-0.8); Lymphocytes # (auto) 1.2 10 ^3/uL (0.4-5.4); Mean Corpuscular Hgb Conc. 32.3 g/dL (32.0-36.0); Monocytes # (auto) 0.6 10 ^3/uL (0-1.3); Nucleated Red Blood Cells % 0.1 %; Red Cell Distribution Width 17.6 % (11.8-14.3)
[2023-06-18 10:00] LABS: Basophils % (auto) 1.3 % (0.0-2.0); Eosinophils % (auto) 3.6 % (0.0-7.0); Hematocrit 24.5 % (41.0-53.0); Hemoglobin 7.9 g/dL (13.5-17.5); Lymphocytes % (auto) 20.8 % (10.0-50.0); Mean Corpuscular Hemoglobin 30.7 pg (28.0-32.0); Monocytes % (auto) 9.6 % (0.0-12.0); Neutrophils # (auto) 3.8 10 ^3/uL (1.6-8.6); Neutrophils % (auto) 64.7 % (37.0-80.0); Red Blood Cells 2.57 10^6/uL (4.5-5.90); White Blood Cell 5.9 10^3/uL (4.4-10.8)
[2023-06-18 10:11] LABS: Albumin 2.4 g/dL (3.2-4.8); Alkaline Phosphatase 86 U/L (46-116); Anion Gap 8 (5-15); Aspartate Aminotransferase 17 U/L (13-40); BUN/Creatinine Ratio 8.6 (10.0-20.0); Bilirubin, Total < 0.2 mg/dL (0.2-1.0); Blood Urea Nitrogen 32 mg/dL (9-23); Calcium 8.9 mg/dL (8.5-10.1); Carbon Dioxide 20 mmol/L (20-30); Chloride 110 mmol/L (98-107); Glucose 99 mg/dL (74-106); Potassium 3.8 mmol/L (3.5-5.1); Sodium 138 mmol/L (136-145); Total Protein 5.2 g/dL (5.7-8.2)
[2023-06-18 10:19] LABS: CRP High Sensitivity 3.58 mg/dL (<1.0)
[2023-06-18 10:22] LABS: Alanine Aminotransferase < 9 U/L (7-40)
[2023-06-18] MEDS: MINOXIDIL 2.5 MG TAB PO SCH (10:48)
[2023-06-18] MEDS: cefTRIAXone 1GM/50ML D5W 50 ML IV SCH (10:48)
[2023-06-18] MEDS: ENOXAPARIN SOD 80 MG/0.8ML SYRINGE SC SCH (10:49)
[2023-06-18] MEDS: SILVER SULFADIAZINE 1 % TOPICAL CREAM 50GM TOP SCH (10:49)
[2023-06-18] MEDS: BUMETANIDE 2.5mg/10ml (0.25 mg/ml) INJ IV SCH (10:50)
[2023-06-18] MEDS: PANTOPRAZOLE 40 MG/10 ML VIAL INJ IV SCH (10:50)
[2023-06-18] MEDS: amLODIPine BESYLATE 5 MG TAB PO SCH (10:51)
[2023-06-18] MEDS: CARVEDILOL 12.5 MG TAB PO SCH ×2 (10:51→21:59)
[2023-06-18] MEDS: SODIUM CHLOR 0.9% PF (SALINE LOCK) 10ML VIAL/SYR IV SCH ×2 (10:52→22:00)
[2023-06-18] MEDS: cloNIDine HCL 0.1 MG TAB PO SCH ×2 (10:52→22:00)
[2023-06-19] VITALS (13 sets, daily range): BP systolic 102–162; BP diastolic 50–77; PULSE 89–105; RESP 18–70; TEMP 97.3–100.1; O2SAT 92–98
[2023-06-19] MEDS: METOCLOPRAMIDE HCL 5MG/ml INJ 2ml VIAL IV SCH ×3 (06:19→22:25)
[2023-06-19] MEDS: hydrALAZINE HCL 25 MG TAB PO SCH ×3 (06:20→22:17)
[2023-06-19] MEDS: LEVOTHYROXINE SODIUM 50 MCG TAB PO SCH (06:20)
[2023-06-19] MEDS: IPRATROPIUM BROM 0.5 MG/2.5ML INH SOL NEB SCH ×3 (06:35→22:02)
[2023-06-19 06:41] LABS: Basophils # (auto) 0.1 10 ^3/uL (0-0.2); Basophils % (auto) 0.9 % (0.0-2.0); Eosinophils # (auto) 0.2 10 ^3/uL (0-0.8); Hemoglobin 7.8 g/dL (13.5-17.5); Lymphocytes # (auto) 1.1 10 ^3/uL (0.4-5.4); White Blood Cell 6.2 10^3/uL (4.4-10.8)
[2023-06-19 06:46] LABS: Eosinophils % (auto) 3.8 % (0.0-7.0); Hematocrit 24.4 % (41.0-53.0); Lymphocytes % (auto) 17.8 % (10.0-50.0); Mean Corpuscular Hgb Conc. 31.9 g/dL (32.0-36.0); Mean Corpuscular Volume 94.3 fL (80.0-100.0); Monocytes # (auto) 0.5 10 ^3/uL (0-1.3); Monocytes % (auto) 8.7 % (0.0-12.0); Neutrophils # (auto) 4.2 10 ^3/uL (1.6-8.6); Neutrophils % (auto) 68.8 % (37.0-80.0); Nucleated Red Blood Cells % 0.1 %; Red Blood Cells 2.59 10^6/uL (4.5-5.90); Red Cell Distribution Width 17.1 % (11.8-14.3)
[2023-06-19 06:57] LABS: Albumin 2.5 g/dL (3.2-4.8); Alkaline Phosphatase 88 U/L (46-116); Anion Gap 8 (5-15); Aspartate Aminotransferase 17 U/L (13-40); BUN/Creatinine Ratio 9.4 (10.0-20.0); Bilirubin, Total < 0.2 mg/dL (0.2-1.0); Blood Urea Nitrogen 36 mg/dL (9-23); Carbon Dioxide 20 mmol/L (20-30); Chloride 113 mmol/L (98-107); Glucose 105 mg/dL (74-106); Potassium 3.9 mmol/L (3.5-5.1); Sodium 141 mmol/L (136-145); Total Protein 5.4 g/dL (5.7-8.2)
[2023-06-19 07:05] LABS: CRP High Sensitivity 3.65 mg/dL (<1.0)
[2023-06-19 07:06] LABS: Alanine Aminotransferase < 9 U/L (7-40)
[2023-06-19 08:06] LABS: Complement C3 100 mg/dL (82-167)
[2023-06-19] MEDS: cefTRIAXone 1GM/50ML D5W 50 ML IV SCH (08:57)
[2023-06-19] MEDS: amLODIPine BESYLATE 5 MG TAB PO SCH (08:58)
[2023-06-19] MEDS: BUMETANIDE 2.5mg/10ml (0.25 mg/ml) INJ IV SCH ×2 (08:58→10:00)
[2023-06-19] MEDS: cloNIDine HCL 0.1 MG TAB PO SCH ×2 (08:59→22:19)
[2023-06-19] MEDS: PANTOPRAZOLE 40 MG/10 ML VIAL INJ IV SCH (08:59)
[2023-06-19] MEDS: ENOXAPARIN SOD 80 MG/0.8ML SYRINGE SC SCH (08:59)
[2023-06-19] MEDS: MINOXIDIL 2.5 MG TAB PO SCH (08:59)
[2023-06-19] MEDS: SODIUM CHLOR 0.9% PF (SALINE LOCK) 10ML VIAL/SYR IV SCH ×2 (09:00→22:16)
[2023-06-19] MEDS: CARVEDILOL 12.5 MG TAB PO SCH ×2 (09:14→22:18)
[2023-06-19] MEDS: SILVER SULFADIAZINE 1 % TOPICAL CREAM 50GM TOP SCH (09:15)
[2023-06-19 13:06] LABS: Anti-Nuclear Antibody Direct Negative (Negative)
[2023-06-20] VITALS (10 sets, daily range): BP systolic 127–155; BP diastolic 45–59; PULSE 91–104; RESP 19–26; TEMP 98.5–100.2; O2SAT 94–99
[2023-06-20] MEDS: METOCLOPRAMIDE HCL 5MG/ml INJ 2ml VIAL IV SCH ×2 (05:50→14:09)
[2023-06-20] MEDS: hydrALAZINE HCL 25 MG TAB PO SCH ×2 (05:51→14:09)
[2023-06-20] MEDS: LEVOTHYROXINE SODIUM 50 MCG TAB PO SCH (06:48)
[2023-06-20 06:54] LABS: Albumin 2.6 g/dL (3.2-4.8); Alkaline Phosphatase 87 U/L (46-116); Anion Gap 7 (5-15); Aspartate Aminotransferase 15 U/L (13-40); Bilirubin, Total < 0.2 mg/dL (0.2-1.0); Blood Urea Nitrogen 38 mg/dL (9-23); Calcium 8.7 mg/dL (8.7-10.4); Carbon Dioxide 22 mmol/L (20-30); Chloride 112 mmol/L (98-107); Glucose 104 mg/dL (74-106); Sodium 141 mmol/L (136-145); Total Protein 5.5 g/dL (5.7-8.2)
[2023-06-20 06:55] LABS: Alanine Aminotransferase < 9 U/L (7-40)
[2023-06-20 07:25] LABS: Basophils # (auto) 0.1 10 ^3/uL (0-0.2); Basophils % (auto) 1.2 % (0.0-2.0); Eosinophils # (auto) 0.3 10 ^3/uL (0-0.8); Monocytes # (auto) 0.4 10 ^3/uL (0-1.3)
[2023-06-20 07:29] LABS: Eosinophils % (auto) 5.7 % (0.0-7.0); Hematocrit 24.9 % (41.0-53.0); Lymphocytes % (auto) 18.4 % (10.0-50.0); Mean Corpuscular Hemoglobin 30.6 pg (28.0-32.0); Mean Corpuscular Hgb Conc. 32.1 g/dL (32.0-36.0); Mean Corpuscular Volume 95.5 fL (80.0-100.0); Monocytes % (auto) 7.5 % (0.0-12.0); Neutrophils # (auto) 3.7 10 ^3/uL (1.6-8.6); Neutrophils % (auto) 67.2 % (37.0-80.0); Red Cell Distribution Width 17.2 % (11.8-14.3); White Blood Cell 5.5 10^3/uL (4.4-10.8)
[2023-06-20] MEDS: IPRATROPIUM BROM 0.5 MG/2.5ML INH SOL NEB SCH ×2 (08:19→14:23)
[2023-06-20] MEDS: ALBUTEROL MEDNEB 2.5 mg/3ml NEB NEB PRN ×2 (08:20→14:24)
[2023-06-20] MEDS: cefTRIAXone 1GM/50ML D5W 50 ML IV SCH (09:48)
[2023-06-20] MEDS: SODIUM CHLOR 0.9% PF (SALINE LOCK) 10ML VIAL/SYR IV SCH (09:50)
[2023-06-20] MEDS: PANTOPRAZOLE 40 MG/10 ML VIAL INJ IV SCH (09:50)
[2023-06-20] MEDS: BUMETANIDE 2.5mg/10ml (0.25 mg/ml) INJ IV SCH (09:51)
[2023-06-20] MEDS: ENOXAPARIN SOD 80 MG/0.8ML SYRINGE SC SCH (09:51)
[2023-06-20] MEDS: MINOXIDIL 2.5 MG TAB PO SCH (09:57)
[2023-06-20] MEDS: CARVEDILOL 12.5 MG TAB PO SCH (09:58)
[2023-06-20] MEDS: cloNIDine HCL 0.1 MG TAB PO SCH (09:59)
[2023-06-20] MEDS: SILVER SULFADIAZINE 1 % TOPICAL CREAM 50GM TOP SCH (09:59)
[2023-06-20 13:07] LABS: Cytoplasmic (C-ANCA) <1:20 titer (Neg:<1:20); Perinuclear (P-ANCA) <1:20 titer (Neg:<1:20)
[2023-06-20] MEDS ORDERED: ALBUTEROL SULF 2.5 MG/0.5ML(0.5%) NEB SOLN ONE (13:58)
[2023-06-20 18:06] LABS: Antimyeloperoxidase (MPO) Ab <0.2 units (0.0-0.9); Antiproteinase 3 (PR-3) Ab <0.2 units (0.0-0.9)
== END 2023-06-20 15:30 | disposition hospice, home (50) | DRG 870 ==
LOC: ER 21:21 → EDBD 21:21 → TELE 05-28 00:36 → ICU WEST 05-28 02:50 → DOU IN ICU 06-12 16:54 → ICU CENTRL 06-14 04:12 → TELE-CENTR 06-16 16:30
PROVIDERS: ADMIT Internal Medicine; ATTEND Emergency Medicine
PROC: 5A1955Z Respiratory Ventilation, Greater than 96 Consecutive Hours (ICD-10-PCS; principal; 2023-05-27)
PROC: 0BH17EZ Insertion of Endotracheal Airway into Trachea, Via Natural or Artificial Opening (ICD-10-PCS; 2023-05-27)
PROC: 0W993ZZ Drainage of Right Pleural Cavity, Percutaneous Approach (ICD-10-PCS; 2023-05-28)
PROC: 02HV33Z Insertion of Infusion Device into Superior Vena Cava, Percutaneous Approach (ICD-10-PCS; 2023-05-28)
PROC: 30233N1 Transfusion of Nonautologous Red Blood Cells into Peripheral Vein, Percutaneous Approach (ICD-10-PCS; 2023-05-30)
PROC: 0W9B3ZZ Drainage of Left Pleural Cavity, Percutaneous Approach (ICD-10-PCS; 2023-06-03)
DX: A41.9 Sepsis, unspecified organism (principal); N17.0 Acute kidney failure with tubular necrosis; J96.01 Acute respiratory failure with hypoxia; J69.0 Pneumonitis due to inhalation of food and vomit; I50.33 Acute on chronic diastolic (congestive) heart failure; I13.0 Hypertensive heart and chronic kidney disease with heart failure and stage 1 through stage 4 chronic kidney disease, or unspecified chronic kidney disease; J44.0 Chronic obstructive pulmonary disease with (acute) lower respiratory infection; L03.116 Cellulitis of left lower limb; N39.0 Urinary tract infection, site not specified; G82.20 Paraplegia, unspecified; G93.1 Anoxic brain damage, not elsewhere classified; E44.0 Moderate protein-calorie malnutrition; D64.9 Anemia, unspecified; E11.22 Type 2 diabetes mellitus with diabetic chronic kidney disease; E11.51 Type 2 diabetes mellitus with diabetic peripheral angiopathy without gangrene; I27.20 Pulmonary hypertension, unspecified; K80.20 Calculus of gallbladder without cholecystitis without obstruction; K82.8 Other specified diseases of gallbladder; N26.1 Atrophy of kidney (terminal); N28.1 Cyst of kidney, acquired; N31.9 Neuromuscular dysfunction of bladder, unspecified; N43.3 Hydrocele, unspecified; E03.9 Hypothyroidism, unspecified; E87.6 Hypokalemia; L89.159 Pressure ulcer of sacral region, unspecified stage; N13.9 Obstructive and reflux uropathy, unspecified; R00.1 Bradycardia, unspecified; N18.32 Chronic kidney disease, stage 3b; R65.20 Severe sepsis without septic shock; Z20.822 Contact with and (suspected) exposure to COVID-19; Z93.3 Colostomy status; Z89.611 Acquired absence of right leg above knee; Z88.8 Allergy status to other drugs, medicaments and biological substances; Z79.899 Other long term (current) drug therapy; Z79.82 Long term (current) use of aspirin; Z86.73 Personal history of transient ischemic attack (TIA), and cerebral infarction without residual deficits; Z79.01 Long term (current) use of anticoagulants; Z82.3 Family history of stroke; Z68.26 Body mass index [BMI] 26.0-26.9, adult; Z86.19 Personal history of other infectious and parasitic diseases; Z51.5 Encounter for palliative care; Z87.828 Personal history of other (healed) physical injury and trauma; Z86.711 Personal history of pulmonary embolism; Z93.59 Other cystostomy status; Z99.3 Dependence on wheelchair
CPT/HCPCS: 31500; 36415; 36569; 36600; 70450; 71045; 71250; 72125; 74018; 74176; 76604; 76775; 76942; 80048; 80053; 80202; 80307; 80320; 80329; 81001; 82140; 82270; 82306; 82565; 82570; 82607; 82746; 82805; 82962; 83036; 83520; 83605; 83690; 83735; 83880; 83970; 83986; 84100; 84132; 84156; 84300; 84439; 84443; 84484; 85007; 85025; 85027; 85610; 86038; 86141; 86160; 86256; 86703; 86850; 86900; 86901; 86920; 87040; 87070; 87077; 87081; 87086; 87186; 87205; 87426; 87536; 87804; 89051; 93005; 93306; 93971; 94003; 94640; 95819; 96365; 96367; 96375; 97110; 97163; 97530; 99291; C9113; G0378; J0696; J1956; J2250; J2543; J2704; J3480; J3490; J7060; P9047

== ENCOUNTER 2023-08-04 05:26 | Inpatient (IN) | payer OTHER, MEDICAID ==
[~2023-08-04] VITALS: Ht 172.7 cm; Wt 2.8 kg
[2023-08-04] VITALS (13 sets, daily range): BP systolic 122; BP diastolic 53; PULSE 78–84; RESP 13–98; TEMP 98.6; O2SAT 16–100
[~2023-08-04 05:26] MED LIST changes: -ASPI-394 PO; -CIPR-173 PO; +FAMO-12 PO; +GABA-339 PO; +LEVO50TA7 PO; +LOSA50TA46 PO; -MOXI0.5D9 LEFTEYE; +NIFE1TAB30 PO; -ROCURONIUM 10MG/ML 10ML VIAL IV ONE; -[UNRECOGNIZED DRUG - CODE] TD
[2023-08-04] MEDS ORDERED: ACETAMINOPHEN 500 MG TAB PO ONE (06:00)
[2023-08-04] MEDS ORDERED: SODIUM CHLORIDE 0.9% 2,400 ML IV ONE (06:45)
[2023-08-04] MEDS ORDERED: levoFLOXacin 750MG 150 ML IV ONE (06:45)
[2023-08-04 06:56] LABS: Basophils # (auto) 0 10 ^3/uL (0-0.2); Basophils % (auto) 0.5 % (0.0-2.0); Eosinophils # (auto) 0.2 10 ^3/uL (0-0.8); Eosinophils % (auto) 2.7 % (0.0-7.0); Hematocrit 28.4 % (41.0-53.0); Hemoglobin 8.9 g/dL (13.5-17.5); Lymphocytes # (auto) 0.9 10 ^3/uL (0.4-5.4); Lymphocytes % (auto) 14.8 % (10.0-50.0); Mean Corpuscular Hemoglobin 30.6 pg (28.0-32.0); Mean Corpuscular Hgb Conc. 31.1 g/dL (32.0-36.0); Mean Corpuscular Volume 98.3 fL (80.0-100.0); Monocytes # (auto) 0.2 10 ^3/uL (0-1.3); Monocytes % (auto) 4.3 % (0.0-12.0); Neutrophils # (auto) 4.5 10 ^3/uL (1.6-8.6); Neutrophils % (auto) 77.7 % (37.0-80.0); Nucleated Red Blood Cells % 0.1 %; Red Blood Cells 2.89 10^6/uL (4.5-5.90); Red Cell Distribution Width 15.4 % (11.8-14.3); White Blood Cell 5.8 10^3/uL (4.4-10.8)
[2023-08-04 07:05] LABS: INR 1.19 (0.9-1.15); Partial Thromboplastin Time 33.4 SEC (24.5-34.5); Prothrombin Time 12.4 sec (9.3-11.8)
[2023-08-04 07:15] LABS: Urine Epithelial Cast None Seen /hpf (<5)
[2023-08-04 07:36] LABS: Alanine Aminotransferase 46 U/L (7-40); Albumin 2.6 g/dL (3.2-4.8); Alkaline Phosphatase 117 U/L (46-116); Anion Gap 7 (5-15); Aspartate Aminotransferase 119 U/L (13-40); BUN/Creatinine Ratio 13.1 (10.0-20.0); Bilirubin, Total 0.2 mg/dL (0.2-1.0); Blood Urea Nitrogen 31 mg/dL (9-23); Carbon Dioxide 24 mmol/L (20-30); Chloride 105 mmol/L (98-107); Glucose 97 mg/dL (74-106); Potassium 5.2 mmol/L (3.5-5.1); Sodium 136 mmol/L (136-145); Total Protein 6.2 g/dL (5.7-8.2)
[2023-08-04 07:47] LABS: Urine Bacteria NONE SEEN /hpf (None Seen); Urine Blood Negative /uL (Negative); Urine Clarity CLOUDY (Clear); Urine Color Yellow (Yellow); Urine Mucus FEW (None Seen); Urine Protein, UAD 3+ (Negative); Urine Specific Gravity 1.018 (1.001-1.035); Urine Urobilinogen Normal (Negative); Urine WBC 630 /hpf (0 - 3); Urine WBC Clumps PRESENT /hpf (None Seen)
[2023-08-04 07:58] LABS: Lactic Acid w/Reflex 2.2 mmol/L (0.4-2.0)
[2023-08-04] MEDS ORDERED: ALBUTEROL SULF 2.5 MG/0.5ML(0.5%) NEB SOLN NEB ONE (08:15)
[2023-08-04 09:19] LABS: COVID19 ANTIGEN SOFIA FIA NEGATIVE (NEGATIVE); Rapid Influenza A Negative (Negative); Rapid Influenza B Negative (Negative)
[2023-08-04] MEDS ORDERED: DOCUSATE SOD 100 MG CAP PO PRN (09:45)
[2023-08-04] MEDS ORDERED: ONDANSETRON HCL 4 MG/2 ML VIAL IV PRN (09:45)
[2023-08-04] MEDS ORDERED: VANCOMYCIN PER PHARMACY 0 MG IV SCH ×2 (09:45→11:15)
[2023-08-04] MEDS: CARVEDILOL 3.125 MG TAB PO SCH ×2 (10:00→23:14)
[2023-08-04] MEDS: PRIMIDONE 50 MG TAB PO SCH ×2 (10:00→23:14)
[2023-08-04] MEDS ORDERED: PATIENTS OWN MEDICATION (Amlodipine Besylate 1 TAB) PO SCH (10:00)
[2023-08-04] MEDS ORDERED: LOSARTAN POTASSIUM 50 MG TAB PO SCH (10:00)
[2023-08-04] MEDS ORDERED: hydrALAZINE HCL 25 MG TAB PO SCH (10:00)
[2023-08-04] MEDS: ATORVASTATIN 20 MG TAB PO SCH (10:00)
[2023-08-04] MEDS ORDERED: PATIENTS OWN MEDICATION (Benazepril Hcl 1 TAB) PO SCH (10:00)
[2023-08-04] MEDS ORDERED: PATIENTS OWN MEDICATION (Nifedipine (Nifedipine Er) 60 MG) PO SCH (10:00)
[2023-08-04] MEDS ORDERED: IPRATROPIUM BROM 0.5 MG/2.5ML INH SOL ONE (10:42)
[2023-08-04] MEDS ORDERED: ALBUTEROL SULF 2.5 MG/0.5ML(0.5%) NEB SOLN ONE (10:42)
[2023-08-04] MEDS: ALBUTEROL SULF 2.5 MG/0.5ML(0.5%) NEB SOLN NEB SCH ×4 (10:45→22:26)
[2023-08-04] MEDS: IPRATROPIUM BROM 0.5 MG/2.5ML INH SOL NEB SCH ×4 (10:45→22:26)
[2023-08-04] MEDS: SODIUM CHLORIDE 0.9% 1,000 ML IV SCH ×2 (10:52→18:35)
[2023-08-04] MEDS: MEMANTINE HCL 5 MG TAB PO SCH ×2 (11:00→23:14)
[2023-08-04] MEDS ORDERED: APIXABAN 5 MG TAB PO SCH (11:00)
[2023-08-04] MEDS ORDERED: CEFEPIME 2GM/50ML NS 50 ML IV ONE (11:15)
[2023-08-04] MEDS: prednisoLONE ACETATE 1% OPTH SUSP 5ML OP SCH (11:44)
[2023-08-04] MEDS ORDERED: VANCOMYCIN 1GM/200ML 200 ML IV ONE (11:45)
[2023-08-04 11:50] LABS: Creatinine, Urine 57.78 mg/dL (30.0-125.0); Creatinine, Urine 58.25 mg/dL (30.0-125.0)
[2023-08-04 11:52] LABS: Protein, Urine 409.6 mg/dL (0.0-11.9); Urine Protein/Creatinine Ratio 7.09
[2023-08-04] MEDS: MORPHINE SULFATE INJ 2 MG/ml SYRG IV PRN (12:27)
[2023-08-04 13:06] LABS: Base Excess -1.3 mmol/L (-2.0-2.0)
[2023-08-05] VITALS (24 sets, daily range): BP systolic 116–173; BP diastolic 53–66; PULSE 61–82; RESP 15–95; TEMP 97.4–98.6; O2SAT 91–99
[2023-08-05] MEDS: MORPHINE SULFATE INJ 2 MG/ml SYRG IV PRN ×4 (00:35→16:36)
[2023-08-05] MEDS: ALBUTEROL SULF 2.5 MG/0.5ML(0.5%) NEB SOLN NEB SCH ×6 (02:00→23:01)
[2023-08-05] MEDS: IPRATROPIUM BROM 0.5 MG/2.5ML INH SOL NEB SCH ×6 (02:00→23:01)
[2023-08-05] MEDS: SODIUM CHLORIDE 0.9% 1,000 ML IV SCH ×3 (02:25→19:05)
[2023-08-05] MEDS: LEVOTHYROXINE SODIUM 50 MCG TAB PO SCH (06:43)
[2023-08-05] MEDS: ENOXAPARIN SOD 30 MG/0.3 ML SYRINGE SC SCH (10:00)
[2023-08-05] MEDS: prednisoLONE ACETATE 1% OPTH SUSP 5ML OP SCH (10:00)
[2023-08-05 10:07] LABS: Basophils # (auto) 0 10 ^3/uL (0-0.2); Basophils % (auto) 0.3 % (0.0-2.0); Eosinophils # (auto) 0 10 ^3/uL (0-0.8); Eosinophils % (auto) 0.8 % (0.0-7.0); Hematocrit 17.1 % (41.0-53.0); Lymphocytes % (auto) 19.6 % (10.0-50.0); Mean Corpuscular Hemoglobin 30.7 pg (28.0-32.0); Mean Corpuscular Hgb Conc. 31.5 g/dL (32.0-36.0); Mean Corpuscular Volume 97.5 fL (80.0-100.0); Monocytes # (auto) 0.4 10 ^3/uL (0-1.3); Monocytes % (auto) 7.6 % (0.0-12.0); Neutrophils # (auto) 3.7 10 ^3/uL (1.6-8.6); Neutrophils % (auto) 71.7 % (37.0-80.0); Red Blood Cells 1.75 10^6/uL (4.5-5.90); Red Cell Distribution Width 15.3 % (11.8-14.3); White Blood Cell 5.2 10^3/uL (4.4-10.8)
[2023-08-05] MEDS: CEFEPIME 2GM/50ML NS 50 ML IV SCH ×2 (10:08→22:57)
[2023-08-05 10:10] LABS: Hemoglobin 5.4 g/dL (13.5-17.5)
[2023-08-05] MEDS: PANTOPRAZOLE 40 MG/10 ML VIAL INJ IV SCH (10:10)
[2023-08-05] MEDS: CARVEDILOL 3.125 MG TAB PO SCH ×2 (10:11→21:59)
[2023-08-05] MEDS: ATORVASTATIN 20 MG TAB PO SCH (10:11)
[2023-08-05] MEDS: MEMANTINE HCL 5 MG TAB PO SCH ×2 (10:11→21:58)
[2023-08-05] MEDS: PRIMIDONE 50 MG TAB PO SCH ×2 (10:12→21:59)
[2023-08-05 10:33] LABS: Alanine Aminotransferase 26 U/L (7-40); Albumin 2.1 g/dL (3.2-4.8); Alkaline Phosphatase 76 U/L (46-116); Anion Gap 6 (5-15); Aspartate Aminotransferase 58 U/L (13-40); BUN/Creatinine Ratio 11.7 (10.0-20.0); Bilirubin, Total < 0.2 mg/dL (0.2-1.0); Blood Urea Nitrogen 27 mg/dL (9-23); Calcium 8.3 mg/dL (8.7-10.4); Carbon Dioxide 23 mmol/L (20-30); Chloride 108 mmol/L (98-107); Glucose 130 mg/dL (74-106); Potassium 4.5 mmol/L (3.5-5.1); Sodium 137 mmol/L (136-145); Total Protein 5.1 g/dL (5.7-8.2)
[2023-08-05] MEDS ORDERED: VANCOMYCIN 1,500 MG in D5W 5% 250 ML IV ONE (12:00)
[2023-08-05 15:37] LABS: Hematocrit 17.6 % (41.0-53.0)
[2023-08-05 15:48] LABS: Hemoglobin 5.6 g/dL (13.5-17.5)
[2023-08-05] MEDS ORDERED: MORPHINE SULFATE INJ 2 MG/ml SYRG ONE (16:24)
[2023-08-06] VITALS (16 sets, daily range): BP systolic 143–178; BP diastolic 54–66; PULSE 65–78; RESP 16–20; TEMP 98.1–100.1; O2SAT 94–100
[2023-08-06] MEDS: IPRATROPIUM BROM 0.5 MG/2.5ML INH SOL NEB SCH ×6 (02:00→22:00)
[2023-08-06] MEDS: ALBUTEROL SULF 2.5 MG/0.5ML(0.5%) NEB SOLN NEB SCH ×6 (02:00→22:00)
[2023-08-06] MEDS: SODIUM CHLORIDE 0.9% 1,000 ML IV SCH (03:25)
[2023-08-06] MEDS: MORPHINE SULFATE INJ 2 MG/ml SYRG IV PRN ×3 (05:42→22:18)
[2023-08-06] MEDS: LEVOTHYROXINE SODIUM 50 MCG TAB PO SCH (06:00)
[2023-08-06] MEDS ORDERED: hydrALAZINE HCL 20 MG/ML VL IV ONE (06:30)
[2023-08-06] MEDS: PRIMIDONE 50 MG TAB PO SCH ×2 (09:39→21:25)
[2023-08-06] MEDS: MEMANTINE HCL 5 MG TAB PO SCH ×2 (09:39→21:21)
[2023-08-06] MEDS: CARVEDILOL 3.125 MG TAB PO SCH ×2 (09:39→21:25)
[2023-08-06] MEDS: ATORVASTATIN 20 MG TAB PO SCH (09:39)
[2023-08-06] MEDS: PANTOPRAZOLE 40 MG/10 ML VIAL INJ IV SCH (09:39)
[2023-08-06] MEDS: ENOXAPARIN SOD 30 MG/0.3 ML SYRINGE SC SCH (09:39)
[2023-08-06] MEDS: CEFEPIME 2GM/50ML NS 50 ML IV SCH ×2 (09:48→21:21)
[2023-08-06] MEDS: prednisoLONE ACETATE 1% OPTH SUSP 5ML OP SCH (09:48)
[2023-08-06 10:02] LABS: Basophils # (auto) 0 10 ^3/uL (0-0.2); Eosinophils # (auto) 0.2 10 ^3/uL (0-0.8); Monocytes # (auto) 0.4 10 ^3/uL (0-1.3); Neutrophils # (auto) 4.4 10 ^3/uL (1.6-8.6); Red Blood Cells 2.46 10^6/uL (4.5-5.90); White Blood Cell 6.1 10^3/uL (4.4-10.8)
[2023-08-06 10:05] LABS: Basophils % (auto) 0.6 % (0.0-2.0); Hematocrit 22.5 % (41.0-53.0); Hemoglobin 7.6 g/dL (13.5-17.5); Lymphocytes % (auto) 15.9 % (10.0-50.0); Mean Corpuscular Hemoglobin 30.8 pg (28.0-32.0); Mean Corpuscular Hgb Conc. 33.6 g/dL (32.0-36.0); Mean Corpuscular Volume 91.6 fL (80.0-100.0); Monocytes % (auto) 6.8 % (0.0-12.0); Neutrophils % (auto) 72.7 % (37.0-80.0); Red Cell Distribution Width 16.3 % (11.8-14.3)
[2023-08-06 10:26] LABS: Alanine Aminotransferase 35 U/L (7-40); Albumin 2.1 g/dL (3.2-4.8); Alkaline Phosphatase 82 U/L (46-116); Anion Gap 4 (5-15); Aspartate Aminotransferase 103 U/L (13-40); BUN/Creatinine Ratio 10.4 (10.0-20.0); Bilirubin, Total 0.2 mg/dL (0.2-1.0); Blood Urea Nitrogen 23 mg/dL (9-23); Calcium 8.6 mg/dL (8.5-10.1); Carbon Dioxide 22 mmol/L (20-30); Chloride 108 mmol/L (98-107); Glucose 101 mg/dL (74-106); Potassium 4.6 mmol/L (3.5-5.1); Sodium 134 mmol/L (136-145); Total Protein 5.1 g/dL (5.7-8.2)
[2023-08-06] MEDS ORDERED: METO-158 PO (14:48)
[2023-08-06] MEDS ORDERED: [UNRECOGNIZED DRUG - CODE] PO (15:01)
[2023-08-06] MEDS ORDERED: CEFEPIME 1GM/ 50ML 50 ML IV SCH (22:00)
[2023-08-06] MEDS: cloNIDine HCL 0.1 MG TAB PO PRN (23:38)
[2023-08-07] VITALS (16 sets, daily range): BP systolic 153–162; BP diastolic 57–65; PULSE 67–80; RESP 16–19; TEMP 98.3–99.4; O2SAT 92–99
[2023-08-07] MEDS: IPRATROPIUM BROM 0.5 MG/2.5ML INH SOL NEB SCH ×6 (02:00→22:03)
[2023-08-07] MEDS: ALBUTEROL SULF 2.5 MG/0.5ML(0.5%) NEB SOLN NEB SCH ×6 (02:00→22:03)
[2023-08-07] MEDS ORDERED: hydrALAZINE HCL 20 MG/ML VL IV ONE (03:00)
[2023-08-07] MEDS: MORPHINE SULFATE INJ 2 MG/ml SYRG IV PRN (06:01)
[2023-08-07] MEDS: LEVOTHYROXINE SODIUM 50 MCG TAB PO SCH (06:01)
[2023-08-07] MEDS: MEMANTINE HCL 5 MG TAB PO SCH ×2 (10:31→21:29)
[2023-08-07] MEDS: PANTOPRAZOLE 40 MG/10 ML VIAL INJ IV SCH (10:31)
[2023-08-07] MEDS: PRIMIDONE 50 MG TAB PO SCH ×2 (10:31→21:29)
[2023-08-07] MEDS: CEFEPIME 2GM/50ML NS 50 ML IV SCH ×2 (10:31→21:31)
[2023-08-07] MEDS: ATORVASTATIN 20 MG TAB PO SCH (10:31)
[2023-08-07] MEDS: CARVEDILOL 3.125 MG TAB PO SCH ×2 (10:32→21:29)
[2023-08-07] MEDS: prednisoLONE ACETATE 1% OPTH SUSP 5ML OP SCH (10:32)
[2023-08-07] MEDS: ENOXAPARIN SOD 30 MG/0.3 ML SYRINGE SC SCH (10:32)
[2023-08-07 14:19] LABS: Basophils # (auto) 0 10 ^3/uL (0-0.2); Eosinophils # (auto) 0.3 10 ^3/uL (0-0.8); Hemoglobin 8.2 g/dL (13.5-17.5); Lymphocytes # (auto) 0.9 10 ^3/uL (0.4-5.4)
[2023-08-07 14:22] LABS: Basophils % (auto) 0.6 % (0.0-2.0); Eosinophils % (auto) 5.2 % (0.0-7.0); Hematocrit 25.5 % (41.0-53.0); Lymphocytes % (auto) 14.9 % (10.0-50.0); Mean Corpuscular Hemoglobin 30.1 pg (28.0-32.0); Mean Corpuscular Hgb Conc. 32.1 g/dL (32.0-36.0); Mean Corpuscular Volume 93.9 fL (80.0-100.0); Monocytes # (auto) 0.3 10 ^3/uL (0-1.3); Monocytes % (auto) 5.4 % (0.0-12.0); Neutrophils # (auto) 4.7 10 ^3/uL (1.6-8.6); Neutrophils % (auto) 73.9 % (37.0-80.0); Nucleated Red Blood Cells % 0.1 %; Red Blood Cells 2.72 10^6/uL (4.5-5.90); Red Cell Distribution Width 16.2 % (11.8-14.3); White Blood Cell 6.3 10^3/uL (4.4-10.8)
[2023-08-07 14:34] LABS: Alanine Aminotransferase 36 U/L (7-40); Albumin 2.1 g/dL (3.2-4.8); Alkaline Phosphatase 83 U/L (46-116); Anion Gap 4 (5-15); Aspartate Aminotransferase 76 U/L (13-40); BUN/Creatinine Ratio 15.7 (10.0-20.0); Bilirubin, Total 0.2 mg/dL (0.2-1.0); Calcium 8.5 mg/dL (8.5-10.1); Carbon Dioxide 22 mmol/L (20-30); Chloride 107 mmol/L (98-107); Glucose 149 mg/dL (74-106); Potassium 4.7 mmol/L (3.5-5.1); Sodium 133 mmol/L (136-145)
[2023-08-07 15:01] LABS: Blood Urea Nitrogen 34 mg/dL (9-23)
[2023-08-08] VITALS (20 sets, daily range): BP systolic 126–163; BP diastolic 62–68; PULSE 50–82; RESP 16–20; TEMP 97.4–99.9; O2SAT 69–100
[2023-08-08] MEDS: IPRATROPIUM BROM 0.5 MG/2.5ML INH SOL NEB SCH ×6 (02:05→22:42)
[2023-08-08] MEDS: ALBUTEROL SULF 2.5 MG/0.5ML(0.5%) NEB SOLN NEB SCH ×6 (02:05→22:42)
[2023-08-08 05:13] LABS: Basophils # (auto) 0 10 ^3/uL (0-0.2); Hemoglobin 7.8 g/dL (13.5-17.5); Mean Corpuscular Volume 91.1 fL (80.0-100.0); Neutrophils # (auto) 4.5 10 ^3/uL (1.6-8.6)
[2023-08-08 05:17] LABS: Basophils % (auto) 0.4 % (0.0-2.0); Eosinophils # (auto) 0.3 10 ^3/uL (0-0.8); Eosinophils % (auto) 4.3 % (0.0-7.0); Hematocrit 23.5 % (41.0-53.0); Lymphocytes % (auto) 16.1 % (10.0-50.0); Mean Corpuscular Hemoglobin 30.3 pg (28.0-32.0); Mean Corpuscular Hgb Conc. 33.3 g/dL (32.0-36.0); Monocytes # (auto) 0.4 10 ^3/uL (0-1.3); Monocytes % (auto) 6.9 % (0.0-12.0); Neutrophils % (auto) 72.3 % (37.0-80.0); Nucleated Red Blood Cells % 0.1 %; Red Blood Cells 2.58 10^6/uL (4.5-5.90); Red Cell Distribution Width 15.5 % (11.8-14.3); White Blood Cell 6.2 10^3/uL (4.4-10.8)
[2023-08-08 05:35] LABS: Alanine Aminotransferase 31 U/L (7-40); Albumin 2.2 g/dL (3.2-4.8); Alkaline Phosphatase 88 U/L (46-116); Anion Gap 4 (5-15); Aspartate Aminotransferase 68 U/L (13-40); Bilirubin, Total < 0.2 mg/dL (0.2-1.0); Blood Urea Nitrogen 30 mg/dL (9-23); Calcium 8.4 mg/dL (8.7-10.4); Carbon Dioxide 21 mmol/L (20-30); Chloride 107 mmol/L (98-107); Glucose 88 mg/dL (74-106); Sodium 132 mmol/L (136-145)
[2023-08-08 05:36] LABS: Total Protein 5.2 g/dL (5.7-8.2)
[2023-08-08] MEDS: cloNIDine HCL 0.1 MG TAB PO PRN (05:58)
[2023-08-08] MEDS: LEVOTHYROXINE SODIUM 50 MCG TAB PO SCH (06:01)
[2023-08-08] MEDS: ENOXAPARIN SOD 30 MG/0.3 ML SYRINGE SC SCH (10:10)
[2023-08-08] MEDS: CARVEDILOL 3.125 MG TAB PO SCH ×2 (10:10→22:38)
[2023-08-08] MEDS: PRIMIDONE 50 MG TAB PO SCH ×2 (10:10→22:39)
[2023-08-08] MEDS: ATORVASTATIN 20 MG TAB PO SCH (10:10)
[2023-08-08] MEDS: MEMANTINE HCL 5 MG TAB PO SCH ×2 (10:10→22:39)
[2023-08-08] MEDS: prednisoLONE ACETATE 1% OPTH SUSP 5ML OP SCH (10:10)
[2023-08-08] MEDS: PANTOPRAZOLE 40 MG/10 ML VIAL INJ IV SCH (10:11)
[2023-08-08] MEDS: CEFEPIME 2GM/50ML NS 50 ML IV SCH ×2 (10:11→22:39)
[2023-08-08] MEDS: MORPHINE SULFATE INJ 2 MG/ml SYRG IV PRN (18:50)
[2023-08-09] VITALS (18 sets, daily range): BP systolic 161–177; BP diastolic 72–77; PULSE 70–89; RESP 16–20; TEMP 97–99.1; O2SAT 93–99
[2023-08-09] MEDS: MORPHINE SULFATE INJ 2 MG/ml SYRG IV PRN ×2 (00:41→11:45)
[2023-08-09] MEDS: IPRATROPIUM BROM 0.5 MG/2.5ML INH SOL NEB SCH ×6 (02:00→22:10)
[2023-08-09] MEDS: ALBUTEROL SULF 2.5 MG/0.5ML(0.5%) NEB SOLN NEB SCH ×6 (02:00→22:11)
[2023-08-09 05:26] LABS: Basophils # (auto) 0 10 ^3/uL (0-0.2); Eosinophils # (auto) 0.3 10 ^3/uL (0-0.8); Hemoglobin 7.5 g/dL (13.5-17.5); Monocytes # (auto) 0.5 10 ^3/uL (0-1.3); Neutrophils # (auto) 4.8 10 ^3/uL (1.6-8.6); White Blood Cell 6.7 10^3/uL (4.4-10.8)
[2023-08-09 05:30] LABS: Basophils % (auto) 0.3 % (0.0-2.0); Eosinophils % (auto) 3.9 % (0.0-7.0); Lymphocytes % (auto) 15.5 % (10.0-50.0); Mean Corpuscular Hemoglobin 30.9 pg (28.0-32.0); Mean Corpuscular Hgb Conc. 32.6 g/dL (32.0-36.0); Mean Corpuscular Volume 94.6 fL (80.0-100.0); Neutrophils % (auto) 72.3 % (37.0-80.0); Red Blood Cells 2.43 10^6/uL (4.5-5.90); Red Cell Distribution Width 15.9 % (11.8-14.3)
[2023-08-09 05:45] LABS: Alanine Aminotransferase 32 U/L (7-40); Albumin 2.1 g/dL (3.2-4.8); Alkaline Phosphatase 85 U/L (46-116); Anion Gap 4 (5-15); Aspartate Aminotransferase 64 U/L (13-40); BUN/Creatinine Ratio 14.2 (10.0-20.0); Blood Urea Nitrogen 32 mg/dL (9-23); Calcium 8.6 mg/dL (8.5-10.1); Carbon Dioxide 21 mmol/L (20-30); Chloride 107 mmol/L (98-107); Glucose 92 mg/dL (74-106); Potassium 5.2 mmol/L (3.5-5.1); Sodium 132 mmol/L (136-145)
[2023-08-09 05:46] LABS: Bilirubin, Total 0.2 mg/dL (0.2-1.0); Total Protein 5.2 g/dL (5.7-8.2)
[2023-08-09] MEDS: LEVOTHYROXINE SODIUM 50 MCG TAB PO SCH (06:11)
[2023-08-09] MEDS ORDERED: FUROSEMIDE 40 MG/4 ML VIAL IV ONE (08:15)
[2023-08-09] MEDS ORDERED: TPN PER PHARMACY 0 ML IV SCH (10:30)
[2023-08-09 10:46] LABS: Magnesium 1.5 mg/dL (1.6-2.6)
[2023-08-09 10:48] LABS: Phosphorus 2.2 mg/dL (2.4-5.1)
[2023-08-09] MEDS: ATORVASTATIN 20 MG TAB PO SCH (11:32)
[2023-08-09] MEDS: MEMANTINE HCL 5 MG TAB PO SCH ×2 (11:33→21:53)
[2023-08-09] MEDS: PRIMIDONE 50 MG TAB PO SCH ×2 (11:36→21:54)
[2023-08-09] MEDS: ENOXAPARIN SOD 30 MG/0.3 ML SYRINGE SC SCH (11:36)
[2023-08-09] MEDS: CARVEDILOL 3.125 MG TAB PO SCH ×2 (11:36→21:54)
[2023-08-09] MEDS: PANTOPRAZOLE 40 MG/10 ML VIAL INJ IV SCH (11:36)
[2023-08-09] MEDS: ERTAPENEM SOD INJ 1 GM in SODIUM CHL 0.9% 50 ML IV SCH (11:37)
[2023-08-09] MEDS: prednisoLONE ACETATE 1% OPTH SUSP 5ML OP SCH (11:47)
[2023-08-09] MEDS: DAPTOmycin 500 MG in SODIUM CHL 0.9% 50 ML IV SCH (11:51)
[2023-08-09] MEDS ORDERED: MAGNESIUM SULFATE 1GM/100ML 100 ML IV ONE (12:30)
[2023-08-09] MEDS ORDERED: SODIUM PHOSPHATES 20 MEQ in SODIUM CHL 0.9% 100 ML IV ONE (14:00)
[2023-08-09 14:35] LABS: INR 1.17 (0.9-1.15); Partial Thromboplastin Time 51.8 SEC (24.5-34.5); Prothrombin Time 12.2 sec (9.3-11.8)
[2023-08-09] MEDS ORDERED: LIDOCAINE 1% (LOCAL ANESTH.) PF 5ml SDV ID ONE (18:45)
[2023-08-09] MEDS ORDERED: AMINO ACID INFUSION IN D10W 1,000 ML IV SCH (20:00)
[2023-08-09] MEDS: SODIUM CHLOR 0.9% PF (SALINE LOCK) 10ML VIAL/SYR IV SCH (21:54)
[2023-08-09] MEDS: cloNIDine HCL 0.1 MG TAB PO PRN (22:45)
[2023-08-10] VITALS (22 sets, daily range): BP systolic 131–171; BP diastolic 68–74; PULSE 39–82; RESP 14–20; TEMP 97.9–98.9; O2SAT 93–100
[2023-08-10] MEDS ORDERED: DEXTROSE (50%) 50ML SYRG IV SCH
[2023-08-10] MEDS: IPRATROPIUM BROM 0.5 MG/2.5ML INH SOL NEB SCH ×6 (02:01→22:20)
[2023-08-10] MEDS: ALBUTEROL SULF 2.5 MG/0.5ML(0.5%) NEB SOLN NEB SCH ×6 (02:01→22:20)
[2023-08-10] MEDS: cloNIDine HCL 0.1 MG TAB PO PRN (05:17)
[2023-08-10] MEDS: ACCU-CHEK COMFORT CURVE STRIP VI SCH ×5 (05:20→23:58)
[2023-08-10] MEDS: InsuLIN REG 1unit/0.01ml Soln (100units/ml) SC SCH ×4 (05:20→16:51)
[2023-08-10 06:09] LABS: Basophils # (auto) 0 10 ^3/uL (0-0.2); Eosinophils # (auto) 0.3 10 ^3/uL (0-0.8); Hemoglobin 7.9 g/dL (13.5-17.5); Monocytes # (auto) 0.6 10 ^3/uL (0-1.3)
[2023-08-10 06:11] LABS: Basophils % (auto) 0.7 % (0.0-2.0); Eosinophils % (auto) 4.9 % (0.0-7.0); Hematocrit 23.5 % (41.0-53.0); Lymphocytes % (auto) 16.3 % (10.0-50.0); Mean Corpuscular Hemoglobin 31.1 pg (28.0-32.0); Mean Corpuscular Hgb Conc. 33.7 g/dL (32.0-36.0); Mean Corpuscular Volume 92.2 fL (80.0-100.0); Monocytes % (auto) 10.4 % (0.0-12.0); Neutrophils % (auto) 67.7 % (37.0-80.0); Nucleated Red Blood Cells % 0.2 %; Red Blood Cells 2.55 10^6/uL (4.5-5.90); Red Cell Distribution Width 15.5 % (11.8-14.3); White Blood Cell 5.9 10^3/uL (4.4-10.8)
[2023-08-10] MEDS: LEVOTHYROXINE SODIUM 50 MCG TAB PO SCH (06:17)
[2023-08-10 06:22] LABS: Alanine Aminotransferase 45 U/L (7-40); Albumin 2.3 g/dL (3.2-4.8); Alkaline Phosphatase 81 U/L (46-116); Anion Gap 5 (5-15); Aspartate Aminotransferase 96 U/L (13-40); BUN/Creatinine Ratio 16.5 (10.0-20.0); Blood Urea Nitrogen 36 mg/dL (9-23); Calcium 8.8 mg/dL (8.5-10.1); Carbon Dioxide 22 mmol/L (20-30); Chloride 107 mmol/L (98-107); Glucose 101 mg/dL (74-106); Potassium 4.4 mmol/L (3.5-5.1); Sodium 134 mmol/L (136-145); Triglycerides 74 mg/dL (< 150)
[2023-08-10 06:23] LABS: Bilirubin, Total 0.2 mg/dL (0.2-1.0); Phosphorus 3.1 mg/dL (2.4-5.1); Total Protein 5.5 g/dL (5.7-8.2)
[2023-08-10 07:29] LABS: Magnesium 1.7 mg/dL (1.6-2.6)
[2023-08-10] MEDS: prednisoLONE ACETATE 1% OPTH SUSP 5ML OP SCH (09:25)
[2023-08-10] MEDS: ERTAPENEM SOD INJ 1 GM in SODIUM CHL 0.9% 50 ML IV SCH (09:25)
[2023-08-10] MEDS: PRIMIDONE 50 MG TAB PO SCH ×2 (09:26→22:11)
[2023-08-10] MEDS: ATORVASTATIN 20 MG TAB PO SCH (09:26)
[2023-08-10] MEDS: MEMANTINE HCL 5 MG TAB PO SCH ×2 (09:26→22:11)
[2023-08-10] MEDS: PANTOPRAZOLE 40 MG/10 ML VIAL INJ IV SCH (09:26)
[2023-08-10] MEDS: ENOXAPARIN SOD 30 MG/0.3 ML SYRINGE SC SCH (09:26)
[2023-08-10] MEDS: CARVEDILOL 3.125 MG TAB PO SCH ×2 (09:27→22:11)
[2023-08-10] MEDS: SODIUM CHLOR 0.9% PF (SALINE LOCK) 10ML VIAL/SYR IV SCH ×2 (09:27→22:11)
[2023-08-10] MEDS: DAPTOmycin 500 MG in SODIUM CHL 0.9% 50 ML IV SCH (11:19)
[2023-08-10] MEDS ORDERED: FUROSEMIDE 40 MG/4 ML VIAL IV ONE (14:30)
[2023-08-10] MEDS ORDERED: SERT25TA84 PO (16:36)
[2023-08-10] MEDS: MORPHINE SULFATE INJ 2 MG/ml SYRG IV PRN (16:43)
[2023-08-10] MEDS: TPN PER PHARMACY IV NR ×9 (20:20)
[2023-08-11] VITALS (21 sets, daily range): BP systolic 142–177; BP diastolic 70–98; PULSE 72–96; RESP 14–22; TEMP 98.3–101.1; O2SAT 93–100
[2023-08-11] MEDS: MORPHINE SULFATE INJ 2 MG/ml SYRG IV PRN (00:03)
[2023-08-11] MEDS: IPRATROPIUM BROM 0.5 MG/2.5ML INH SOL NEB SCH ×6 (02:53→22:29)
[2023-08-11] MEDS: ALBUTEROL SULF 2.5 MG/0.5ML(0.5%) NEB SOLN NEB SCH ×6 (02:53→22:29)
[2023-08-11] MEDS: InsuLIN REG 1unit/0.01ml Soln (100units/ml) SC SCH ×4 (06:00→18:00)
[2023-08-11] MEDS: ACCU-CHEK COMFORT CURVE STRIP VI SCH ×3 (06:22→18:00)
[2023-08-11] MEDS: LEVOTHYROXINE SODIUM 50 MCG TAB PO SCH (06:25)
[2023-08-11 06:37] LABS: Alanine Aminotransferase 41 U/L (7-40); Alkaline Phosphatase 88 U/L (46-116); Anion Gap 6 (5-15); BUN/Creatinine Ratio 14.7 (10.0-20.0); Blood Urea Nitrogen 32 mg/dL (9-23); Calcium 8.3 mg/dL (8.7-10.4); Carbon Dioxide 20 mmol/L (20-30); Chloride 106 mmol/L (98-107); Glucose 102 mg/dL (74-106); Magnesium 1.7 mg/dL (1.6-2.6); Potassium 4.3 mmol/L (3.5-5.1); Sodium 132 mmol/L (136-145)
[2023-08-11 06:38] LABS: Albumin 2.1 g/dL (3.2-4.8); Aspartate Aminotransferase 78 U/L (13-40)
[2023-08-11 06:39] LABS: Bilirubin, Total < 0.2 mg/dL (0.2-1.0); Phosphorus 2.2 mg/dL (2.4-5.1); Total Protein 5.1 g/dL (5.7-8.2)
[2023-08-11] MEDS: FUROSEMIDE 20 MG TAB PO SCH (09:31)
[2023-08-11] MEDS: ENOXAPARIN SOD 30 MG/0.3 ML SYRINGE SC SCH (09:31)
[2023-08-11] MEDS: PANTOPRAZOLE 40 MG/10 ML VIAL INJ IV SCH (09:31)
[2023-08-11] MEDS: PRIMIDONE 50 MG TAB PO SCH ×2 (09:32→21:47)
[2023-08-11] MEDS: MEMANTINE HCL 5 MG TAB PO SCH ×2 (09:32→21:46)
[2023-08-11] MEDS: CARVEDILOL 3.125 MG TAB PO SCH ×2 (09:32→21:47)
[2023-08-11] MEDS: ERTAPENEM SOD INJ 1 GM in SODIUM CHL 0.9% 50 ML IV SCH (09:32)
[2023-08-11] MEDS: ATORVASTATIN 20 MG TAB PO SCH (09:32)
[2023-08-11] MEDS: SODIUM CHLOR 0.9% PF (SALINE LOCK) 10ML VIAL/SYR IV SCH ×2 (10:00→21:48)
[2023-08-11] MEDS ORDERED: SODIUM PHOSPHATES 40 MEQ in D5W 5% 250 ML IV ONE (11:00)
[2023-08-11] MEDS: prednisoLONE ACETATE 1% OPTH SUSP 5ML OP SCH (12:05)
[2023-08-11] MEDS: DAPTOmycin 500 MG in SODIUM CHL 0.9% 50 ML IV SCH (12:05)
[2023-08-11] MEDS ORDERED: TPN PER PHARMACY IV NR ×10 (20:00)
[2023-08-11] MEDS: TPN PER PHARMACY IV NR ×9 (20:23)
[2023-08-12] VITALS (20 sets, daily range): BP systolic 153–169; BP diastolic 78–98; PULSE 75–94; RESP 12–22; TEMP 96.7–98.9; O2SAT 94–100
[2023-08-12] MEDS: ACCU-CHEK COMFORT CURVE STRIP VI SCH ×4 (00:20→18:11)
[2023-08-12] MEDS: IPRATROPIUM BROM 0.5 MG/2.5ML INH SOL NEB SCH ×6 (02:12→22:19)
[2023-08-12] MEDS: ALBUTEROL SULF 2.5 MG/0.5ML(0.5%) NEB SOLN NEB SCH ×6 (02:12→22:19)
[2023-08-12] MEDS: cloNIDine HCL 0.1 MG TAB PO PRN (04:30)
[2023-08-12] MEDS: MORPHINE SULFATE INJ 2 MG/ml SYRG IV PRN (04:36)
[2023-08-12 05:38] LABS: Alanine Aminotransferase 67 U/L (7-40); Alkaline Phosphatase 99 U/L (46-116); Anion Gap 6 (5-15); BUN/Creatinine Ratio 21.8 (10.0-20.0); Calcium 8.5 mg/dL (8.7-10.4); Carbon Dioxide 21 mmol/L (20-30); Chloride 106 mmol/L (98-107); Glucose 100 mg/dL (74-106); Magnesium 1.8 mg/dL (1.6-2.6); Potassium 4.5 mmol/L (3.5-5.1); Sodium 133 mmol/L (136-145)
[2023-08-12 05:39] LABS: Albumin 2.3 g/dL (3.2-4.8); Aspartate Aminotransferase 150 U/L (13-40); Bilirubin, Total < 0.2 mg/dL (0.2-1.0); Phosphorus 3.6 mg/dL (2.4-5.1); Total Protein 5.6 g/dL (5.7-8.2)
[2023-08-12] MEDS: InsuLIN REG 1unit/0.01ml Soln (100units/ml) SC SCH ×4 (05:51→18:00)
[2023-08-12 05:54] LABS: Blood Urea Nitrogen 46 mg/dL (9-23)
[2023-08-12] MEDS: LEVOTHYROXINE SODIUM 50 MCG TAB PO SCH (06:07)
[2023-08-12] MEDS: ERTAPENEM SOD INJ 1 GM in SODIUM CHL 0.9% 50 ML IV SCH (09:45)
[2023-08-12] MEDS: MEMANTINE HCL 5 MG TAB PO SCH ×2 (09:45→21:34)
[2023-08-12] MEDS: ATORVASTATIN 20 MG TAB PO SCH (09:45)
[2023-08-12] MEDS: PANTOPRAZOLE 40 MG/10 ML VIAL INJ IV SCH (09:45)
[2023-08-12] MEDS: FUROSEMIDE 20 MG TAB PO SCH (09:45)
[2023-08-12] MEDS: PRIMIDONE 50 MG TAB PO SCH ×2 (09:46→21:34)
[2023-08-12] MEDS: prednisoLONE ACETATE 1% OPTH SUSP 5ML OP SCH (09:46)
[2023-08-12] MEDS: CARVEDILOL 3.125 MG TAB PO SCH ×2 (09:46→21:34)
[2023-08-12] MEDS: ENOXAPARIN SOD 30 MG/0.3 ML SYRINGE SC SCH (09:47)
[2023-08-12] MEDS: SODIUM CHLOR 0.9% PF (SALINE LOCK) 10ML VIAL/SYR IV SCH ×2 (09:47→21:34)
[2023-08-12] MEDS: DAPTOmycin 500 MG in SODIUM CHL 0.9% 50 ML IV SCH (13:06)
[2023-08-12] MEDS ORDERED: TPN PER PHARMACY IV NR ×8 (20:00)
[2023-08-13] VITALS (19 sets, daily range): BP systolic 141–200; BP diastolic 75–100; PULSE 76–90; RESP 15–22; TEMP 97.1–98.9; O2SAT 97–100
[2023-08-13] MEDS: ACCU-CHEK COMFORT CURVE STRIP VI SCH ×4 (00:25→18:04)
[2023-08-13] MEDS: IPRATROPIUM BROM 0.5 MG/2.5ML INH SOL NEB SCH ×6 (02:22→22:01)
[2023-08-13] MEDS: ALBUTEROL SULF 2.5 MG/0.5ML(0.5%) NEB SOLN NEB SCH ×6 (02:22→22:01)
[2023-08-13] MEDS: InsuLIN REG 1unit/0.01ml Soln (100units/ml) SC SCH ×4 (06:00→18:00)
[2023-08-13] MEDS: LEVOTHYROXINE SODIUM 50 MCG TAB PO SCH (06:44)
[2023-08-13 07:41] LABS: Alanine Aminotransferase 107 U/L (7-40); Albumin 2.3 g/dL (3.2-4.8); Alkaline Phosphatase 130 U/L (46-116); Anion Gap 4 (5-15); Aspartate Aminotransferase 199 U/L (13-40); BUN/Creatinine Ratio 21.7 (10.0-20.0); Blood Urea Nitrogen 45 mg/dL (9-23); Calcium 8.4 mg/dL (8.7-10.4); Carbon Dioxide 21 mmol/L (20-30); Chloride 108 mmol/L (98-107); Glucose 105 mg/dL (74-106); Phosphorus 3.2 mg/dL (2.4-5.1); Potassium 4.6 mmol/L (3.5-5.1); Sodium 133 mmol/L (136-145)
[2023-08-13 07:42] LABS: Bilirubin, Total < 0.2 mg/dL (0.2-1.0); Total Protein 5.4 g/dL (5.7-8.2)
[2023-08-13] MEDS: ATORVASTATIN 20 MG TAB PO SCH (09:22)
[2023-08-13] MEDS: CARVEDILOL 3.125 MG TAB PO SCH ×2 (09:22→22:11)
[2023-08-13] MEDS: FUROSEMIDE 20 MG TAB PO SCH (09:23)
[2023-08-13] MEDS: PRIMIDONE 50 MG TAB PO SCH ×2 (09:23→21:47)
[2023-08-13] MEDS: SERTRALINE HCL 50 MG TAB PO SCH (09:24)
[2023-08-13] MEDS: MEMANTINE HCL 5 MG TAB PO SCH ×2 (09:24→22:13)
[2023-08-13] MEDS: ENOXAPARIN SOD 30 MG/0.3 ML SYRINGE SC SCH (09:24)
[2023-08-13] MEDS: ERTAPENEM SOD INJ 1 GM in SODIUM CHL 0.9% 50 ML IV SCH (09:29)
[2023-08-13] MEDS: SODIUM CHLOR 0.9% PF (SALINE LOCK) 10ML VIAL/SYR IV SCH ×2 (09:32→21:47)
[2023-08-13] MEDS: PANTOPRAZOLE 40 MG/10 ML VIAL INJ IV SCH (09:32)
[2023-08-13] MEDS: prednisoLONE ACETATE 1% OPTH SUSP 5ML OP SCH (09:32)
[2023-08-13] MEDS: DAPTOmycin 500 MG in SODIUM CHL 0.9% 50 ML IV SCH (11:17)
[2023-08-13] MEDS: cloNIDine HCL 0.1 MG TAB PO PRN (12:13)
[2023-08-13] MEDS ORDERED: TPN PER PHARMACY IV NR ×9 (20:00)
[2023-08-14] VITALS (21 sets, daily range): BP systolic 176–217; BP diastolic 71–84; PULSE 71–84; RESP 14–100; TEMP 96.7–98.6; O2SAT 14–100
[2023-08-14] MEDS: ACCU-CHEK COMFORT CURVE STRIP VI SCH ×5 (00:15→23:59)
[2023-08-14] MEDS: IPRATROPIUM BROM 0.5 MG/2.5ML INH SOL NEB SCH ×6 (02:05→22:22)
[2023-08-14] MEDS: ALBUTEROL SULF 2.5 MG/0.5ML(0.5%) NEB SOLN NEB SCH ×6 (02:05→22:22)
[2023-08-14] MEDS: cloNIDine HCL 0.1 MG TAB PO PRN ×2 (04:58→20:24)
[2023-08-14] MEDS: InsuLIN REG 1unit/0.01ml Soln (100units/ml) SC SCH ×5 (05:01→23:59)
[2023-08-14] MEDS: LEVOTHYROXINE SODIUM 50 MCG TAB PO SCH (06:29)
[2023-08-14 06:33] LABS: Alanine Aminotransferase 132 U/L (7-40); Albumin 2.2 g/dL (3.2-4.8); Alkaline Phosphatase 135 U/L (46-116); Anion Gap 5 (5-15); Aspartate Aminotransferase 260 U/L (13-40); BUN/Creatinine Ratio 26.7 (10.0-20.0); Bilirubin, Total < 0.2 mg/dL (0.2-1.0); Calcium 8.4 mg/dL (8.7-10.4); Carbon Dioxide 21 mmol/L (20-30); Chloride 107 mmol/L (98-107); Creatine Kinase IFCC 16 U/L (46-171); Glucose 100 mg/dL (74-106); Magnesium 2.2 mg/dL (1.6-2.6); Potassium 4.7 mmol/L (3.5-5.1); Sodium 133 mmol/L (136-145); Total Protein 5.2 g/dL (5.7-8.2)
[2023-08-14 06:42] LABS: Blood Urea Nitrogen 56 mg/dL (9-23)
[2023-08-14 08:53] LABS: Basophils # (auto) 0 10 ^3/uL (0-0.2); Lymphocytes # (auto) 1.2 10 ^3/uL (0.4-5.4); Neutrophils # (auto) 3.6 10 ^3/uL (1.6-8.6)
[2023-08-14 08:54] LABS: Basophils % (auto) 0.6 % (0.0-2.0); Eosinophils # (auto) 0.2 10 ^3/uL (0-0.8); Eosinophils % (auto) 3.8 % (0.0-7.0); Hematocrit 21.5 % (41.0-53.0); Lymphocytes % (auto) 21.9 % (10.0-50.0); Mean Corpuscular Hemoglobin 30.7 pg (28.0-32.0); Mean Corpuscular Hgb Conc. 32.7 g/dL (32.0-36.0); Mean Corpuscular Volume 93.9 fL (80.0-100.0); Monocytes # (auto) 0.5 10 ^3/uL (0-1.3); Monocytes % (auto) 8.9 % (0.0-12.0); Neutrophils % (auto) 64.8 % (37.0-80.0); Red Blood Cells 2.29 10^6/uL (4.5-5.90); Red Cell Distribution Width 15.8 % (11.8-14.3); White Blood Cell 5.6 10^3/uL (4.4-10.8)
[2023-08-14] MEDS: SODIUM CHLOR 0.9% PF (SALINE LOCK) 10ML VIAL/SYR IV SCH ×2 (10:00→21:22)
[2023-08-14] MEDS: prednisoLONE ACETATE 1% OPTH SUSP 5ML OP SCH (10:00)
[2023-08-14] MEDS: ATORVASTATIN 20 MG TAB PO SCH (11:19)
[2023-08-14] MEDS: PANTOPRAZOLE 40 MG/10 ML VIAL INJ IV SCH (11:19)
[2023-08-14] MEDS: FUROSEMIDE 20 MG TAB PO SCH (11:19)
[2023-08-14] MEDS: MEMANTINE HCL 5 MG TAB PO SCH ×2 (11:20→21:22)
[2023-08-14] MEDS: ENOXAPARIN SOD 40 MG/0.4 ML SYRINGE SC SCH (11:20)
[2023-08-14] MEDS: SERTRALINE HCL 50 MG TAB PO SCH (11:21)
[2023-08-14] MEDS: CARVEDILOL 3.125 MG TAB PO SCH ×2 (11:21→21:22)
[2023-08-14] MEDS: PRIMIDONE 50 MG TAB PO SCH ×2 (11:21→21:22)
[2023-08-14] MEDS: ERTAPENEM SOD INJ 1 GM in SODIUM CHL 0.9% 50 ML IV SCH (11:36)
[2023-08-14] MEDS: DAPTOmycin 500 MG in SODIUM CHL 0.9% 50 ML IV SCH (13:17)
[2023-08-14] MEDS ORDERED: TPN PER PHARMACY IV NR ×8 (20:00)
[2023-08-15] VITALS (14 sets, daily range): BP systolic 170–192; BP diastolic 61–74; PULSE 62–86; RESP 16–20; TEMP 98.3–98.8; O2SAT 98–100
[2023-08-15] MEDS: cloNIDine HCL 0.1 MG TAB PO PRN ×2 (02:30→11:06)
[2023-08-15] MEDS: IPRATROPIUM BROM 0.5 MG/2.5ML INH SOL NEB SCH ×4 (02:35→14:11)
[2023-08-15] MEDS: ALBUTEROL SULF 2.5 MG/0.5ML(0.5%) NEB SOLN NEB SCH ×4 (02:35→14:11)
[2023-08-15] MEDS ORDERED: hydrALAZINE HCL 20 MG/ML VL IV ONE (02:45)
[2023-08-15] MEDS: ACCU-CHEK COMFORT CURVE STRIP VI SCH ×2 (05:28→12:02)
[2023-08-15] MEDS: InsuLIN REG 1unit/0.01ml Soln (100units/ml) SC SCH ×2 (05:29→12:03)
[2023-08-15 05:40] LABS: Albumin 2.3 g/dL (3.2-4.8); Alkaline Phosphatase 155 U/L (46-116); Anion Gap 5 (5-15); Aspartate Aminotransferase 396 U/L (13-40); BUN/Creatinine Ratio 31.8 (10.0-20.0); Blood Urea Nitrogen 63 mg/dL (9-23); Calcium 8.4 mg/dL (8.7-10.4); Carbon Dioxide 22 mmol/L (20-30); Chloride 107 mmol/L (98-107); Glucose 104 mg/dL (74-106); Magnesium 2.4 mg/dL (1.6-2.6); Potassium 4.8 mmol/L (3.5-5.1); Sodium 134 mmol/L (136-145)
[2023-08-15 05:41] LABS: Bilirubin, Total 0.2 mg/dL (0.2-1.0); Phosphorus 4.1 mg/dL (2.4-5.1); Total Protein 5.3 g/dL (5.7-8.2)
[2023-08-15] MEDS: LEVOTHYROXINE SODIUM 50 MCG TAB PO SCH (06:09)
[2023-08-15 06:35] LABS: Basophils # (auto) 0.1 10 ^3/uL (0-0.2); Basophils % (auto) 0.9 % (0.0-2.0); Eosinophils # (auto) 0.3 10 ^3/uL (0-0.8); Eosinophils % (auto) 5.1 % (0.0-7.0); Hematocrit 26.9 % (41.0-53.0); Hemoglobin 8.9 g/dL (13.5-17.5); Lymphocytes # (auto) 1.3 10 ^3/uL (0.4-5.4); Lymphocytes % (auto) 21.2 % (10.0-50.0); Mean Corpuscular Hemoglobin 30.5 pg (28.0-32.0); Mean Corpuscular Hgb Conc. 33.2 g/dL (32.0-36.0); Mean Corpuscular Volume 91.9 fL (80.0-100.0); Monocytes # (auto) 0.6 10 ^3/uL (0-1.3); Monocytes % (auto) 9.9 % (0.0-12.0); Neutrophils % (auto) 62.9 % (37.0-80.0); Red Blood Cells 2.92 10^6/uL (4.5-5.90); Red Cell Distribution Width 14.9 % (11.8-14.3); White Blood Cell 6.3 10^3/uL (4.4-10.8)
[2023-08-15 06:42] LABS: Alanine Aminotransferase 203 U/L (7-40)
[2023-08-15] MEDS: ERTAPENEM SOD INJ 1 GM in SODIUM CHL 0.9% 50 ML IV SCH (09:04)
[2023-08-15] MEDS: PANTOPRAZOLE 40 MG/10 ML VIAL INJ IV SCH (09:04)
[2023-08-15] MEDS: ENOXAPARIN SOD 40 MG/0.4 ML SYRINGE SC SCH (09:04)
[2023-08-15] MEDS: PRIMIDONE 50 MG TAB PO SCH (09:05)
[2023-08-15] MEDS: SERTRALINE HCL 50 MG TAB PO SCH (09:05)
[2023-08-15] MEDS: MEMANTINE HCL 5 MG TAB PO SCH (09:05)
[2023-08-15] MEDS: ATORVASTATIN 20 MG TAB PO SCH (09:05)
[2023-08-15] MEDS: FUROSEMIDE 20 MG TAB PO SCH (09:06)
[2023-08-15] MEDS: CARVEDILOL 3.125 MG TAB PO SCH (09:06)
[2023-08-15] MEDS: SODIUM CHLOR 0.9% PF (SALINE LOCK) 10ML VIAL/SYR IV SCH (09:07)
[2023-08-15] MEDS: prednisoLONE ACETATE 1% OPTH SUSP 5ML OP SCH (10:00)
[2023-08-15] MEDS ORDERED: LINE1TAB6 PO (10:14)
[2023-08-15] MEDS ORDERED: LEVO500T91 PO (10:14)
[2023-08-15] MEDS: DAPTOmycin 500 MG in SODIUM CHL 0.9% 50 ML IV SCH (11:06)
[2023-08-15] MEDS ORDERED: TPN PER PHARMACY IV NR ×8 (20:00)
== END 2023-08-15 15:10 | disposition hospice, home (50) | DRG 871 ==
LOC: EDBD 05:26 → ER 05:26 → TELE 09:43 → TELE-WESTW 23:30
PROVIDERS: ADMIT Nurse Practitioner Family; ATTEND Family Medicine
PROC: 05H933Z Insertion of Infusion Device into Right Brachial Vein, Percutaneous Approach (ICD-10-PCS; 2023-08-04)
PROC: B54MZZA Ultrasonography of Right Upper Extremity Veins, Guidance (ICD-10-PCS; 2023-08-04)
PROC: 30233N1 Transfusion of Nonautologous Red Blood Cells into Peripheral Vein, Percutaneous Approach (ICD-10-PCS; 2023-08-05)
PROC: 02HV33Z Insertion of Infusion Device into Superior Vena Cava, Percutaneous Approach (ICD-10-PCS; principal; 2023-08-09)
PROC: B548ZZA Ultrasonography of Superior Vena Cava, Guidance (ICD-10-PCS; 2023-08-09)
DX: A41.02 Sepsis due to Methicillin resistant Staphylococcus aureus (principal); E43 Unspecified severe protein-calorie malnutrition; J15.9 Unspecified bacterial pneumonia; J96.21 Acute and chronic respiratory failure with hypoxia; G93.41 Metabolic encephalopathy; I50.43 Acute on chronic combined systolic (congestive) and diastolic (congestive) heart failure; J15.69 Pneumonia due to other Gram-negative bacteria; R65.21 Severe sepsis with septic shock; I27.82 Chronic pulmonary embolism; J44.1 Chronic obstructive pulmonary disease with (acute) exacerbation; J98.11 Atelectasis; N17.9 Acute kidney failure, unspecified; N30.00 Acute cystitis without hematuria; I13.0 Hypertensive heart and chronic kidney disease with heart failure and stage 1 through stage 4 chronic kidney disease, or unspecified chronic kidney disease; E87.21 Acute metabolic acidosis; J44.0 Chronic obstructive pulmonary disease with (acute) lower respiratory infection; K92.2 Gastrointestinal hemorrhage, unspecified; Z68.1 Body mass index [BMI] 19.9 or less, adult; Z20.822 Contact with and (suspected) exposure to COVID-19; E87.5 Hyperkalemia; K74.60 Unspecified cirrhosis of liver; L98.419 Non-pressure chronic ulcer of buttock with unspecified severity; R62.7 Adult failure to thrive; N18.9 Chronic kidney disease, unspecified; B96.20 Unspecified Escherichia coli [E. coli] as the cause of diseases classified elsewhere; E11.22 Type 2 diabetes mellitus with diabetic chronic kidney disease; E11.40 Type 2 diabetes mellitus with diabetic neuropathy, unspecified; E11.65 Type 2 diabetes mellitus with hyperglycemia; D63.1 Anemia in chronic kidney disease; E88.09 Other disorders of plasma-protein metabolism, not elsewhere classified; E03.9 Hypothyroidism, unspecified; E78.00 Pure hypercholesterolemia, unspecified; F03.90 Unspecified dementia, unspecified severity, without behavioral disturbance, psychotic disturbance, mood disturbance, and anxiety; L89.150 Pressure ulcer of sacral region, unstageable; N28.1 Cyst of kidney, acquired; E11.621 Type 2 diabetes mellitus with foot ulcer; L97.529 Non-pressure chronic ulcer of other part of left foot with unspecified severity; I25.2 Old myocardial infarction; K59.00 Constipation, unspecified; Z51.5 Encounter for palliative care; Z79.899 Other long term (current) drug therapy; Z87.891 Personal history of nicotine dependence; Z93.3 Colostomy status; Z89.611 Acquired absence of right leg above knee; Z79.01 Long term (current) use of anticoagulants; Z88.8 Allergy status to other drugs, medicaments and biological substances; Z82.3 Family history of stroke; Z86.73 Personal history of transient ischemic attack (TIA), and cerebral infarction without residual deficits; Z74.01 Bed confinement status
CPT/HCPCS: 36415; 36569; 36600; 71045; 72192; 73600; 76775; 80053; 80202; 81001; 82140; 82306; 82550; 82570; 82805; 82962; 83605; 83690; 83735; 83880; 83970; 84100; 84156; 84300; 84443; 84478; 84484; 85014; 85018; 85025; 85610; 85730; 86850; 86900; 86901; 86920; 87040; 87077; 87086; 87147; 87186; 87205; 87426; 87804; 92610; 93005; 93306; 94640; 96365; 96367; 99291; C9113; G0378; J0692; J1335; J1815; J1956; J7060; J7131

== ENCOUNTER 2023-11-02 23:15 | Inpatient (IN) | payer OTHER, MEDICAID ==
[~2023-11-02] VITALS: Ht 193 cm; Wt 170.0 kg
[2023-11-02 23:15] VITALS: PULSE 56; RESP 8; O2SAT 90
[~2023-11-02 23:15] MED LIST changes: -ACET-6 PO; -CAR3125T PO; +CARV-214 PO; -FAMO-12 PO; -GABA-339 PO; +LEVO500T91 PO; +LINE1TAB6 PO; +LOSA-534 PO; -LOSA50TA46 PO; +METO-158 PO; -METO200T42 PO; -NIFE1TAB30 PO; +POTA-215 PO; -POTA1TAB61 PO; -PREG-111 PO; +SERT25TA84 PO; +[UNRECOGNIZED DRUG - CODE] PO
[2023-11-02 23:44] LABS: Basophils # (auto) 0 10 ^3/uL (0-0.2); Eosinophils # (auto) 0.1 10 ^3/uL (0-0.8); Mean Corpuscular Hgb Conc. 31.8 g/dL (32.0-36.0); Monocytes # (auto) 0.4 10 ^3/uL (0-1.3); Neutrophils # (auto) 3.7 10 ^3/uL (1.6-8.6); Nucleated Red Blood Cells % 0.1 %
[2023-11-02 23:46] LABS: Basophils % (auto) 0.7 % (0.0-2.0); Lymphocytes # (auto) 1.8 10 ^3/uL (0.4-5.4); Lymphocytes % (auto) 29.8 % (10.0-50.0); Mean Corpuscular Hemoglobin 31.8 pg (28.0-32.0); Mean Corpuscular Volume 99.8 fL (80.0-100.0); Monocytes % (auto) 7.2 % (0.0-12.0); Neutrophils % (auto) 61.3 % (37.0-80.0); Red Blood Cells 2.21 10^6/uL (4.5-5.90); Red Cell Distribution Width 16.2 % (11.8-14.3)
[2023-11-02 23:49] LABS: Chloride 111 mmol/L (98-107); Potassium 4.2 mmol/L (3.5-5.1); Sodium 140 mmol/L (136-145)
[2023-11-02 23:50] LABS: Anion Gap 6 (5-15); Carbon Dioxide 23 mmol/L (20-30)
[2023-11-02 23:55] LABS: Blood Urea Nitrogen 52 mg/dL (9-23); Glucose 93 mg/dL (74-106)
[2023-11-03] VITALS (20 sets, daily range): BP systolic 136–206; BP diastolic 63–116; PULSE 50–74; RESP 7–18; TEMP 98.1–98.4; O2SAT 96–100
[2023-11-03 00:10] LABS: Platelet Estimate Adequate
[2023-11-03 00:15] LABS: Urine Bacteria MANY /hpf (None Seen); Urine Blood TRACE /uL (Negative); Urine Clarity Turbid (Clear); Urine Color Colorless (Yellow); Urine Mucus FEW (None Seen); Urine Protein, UAD 3+ (Negative); Urine Specific Gravity 1.014 (1.001-1.035); Urine Urobilinogen Normal (Negative); Urine WBC 204 /hpf (0 - 3); Urine WBC Clumps PRESENT /hpf (None Seen); Urine pH 5.5 (5.0-9.0)
[2023-11-03] MEDS: AZITHROMYCIN 500MG/ 250ML 250 ML IV ONE (01:18)
[2023-11-03] MEDS: cefTRIAXone 1GM/50ML D5W 50 ML IV ONE (01:18)
[2023-11-03] MEDS ORDERED: DOCUSATE SOD 100 MG CAP PO PRN (05:15)
[2023-11-03] MEDS ORDERED: ACETAMINOPHEN 325 MG TAB PO PRN (05:15)
[2023-11-03] MEDS ORDERED: ONDANSETRON HCL 4 MG/2 ML VIAL IV PRN (05:15)
[2023-11-03] MEDS ORDERED: NITROGLYCERIN 0.4 MG SL TAB SL PRN (06:00)
[2023-11-03] MEDS ORDERED: MORPHINE SULFATE INJ 2 MG/ml SYRG IV PRN (06:00)
[2023-11-03] MEDS: LEVOTHYROXINE SODIUM 50 MCG TAB PO SCH (06:51)
[2023-11-03] MEDS: hydrALAZINE HCL 20 MG/ML VL IV PRN (09:20)
[2023-11-03] MEDS: FUROSEMIDE 40 MG/4 ML VIAL IV SCH (10:48)
[2023-11-03] MEDS: CARVEDILOL 3.125 MG TAB PO SCH (10:48)
[2023-11-03] MEDS: amLODIPine BESYLATE 5 MG TAB PO SCH (10:48)
[2023-11-03 10:53] LABS: Basophils # (auto) 0.1 10 ^3/uL (0-0.2); Eosinophils # (auto) 0.4 10 ^3/uL (0-0.8); Hemoglobin 8.1 g/dL (13.5-17.5); Mean Corpuscular Hemoglobin 31.7 pg (28.0-32.0); Monocytes # (auto) 0.7 10 ^3/uL (0-1.3); Neutrophils # (auto) 5.9 10 ^3/uL (1.6-8.6)
[2023-11-03 11:03] LABS: Basophils % (auto) 0.7 % (0.0-2.0); Eosinophils % (auto) 3.6 % (0.0-7.0); Hematocrit 25.2 % (41.0-53.0); Lymphocytes # (auto) 2.9 10 ^3/uL (0.4-5.4); Lymphocytes % (auto) 29.2 % (10.0-50.0); Mean Corpuscular Hgb Conc. 32.3 g/dL (32.0-36.0); Mean Corpuscular Volume 98.4 fL (80.0-100.0); Monocytes % (auto) 7.3 % (0.0-12.0); Neutrophils % (auto) 59.2 % (37.0-80.0); Nucleated Red Blood Cells % 0.5 %; Red Blood Cells 2.56 10^6/uL (4.5-5.90)
[2023-11-03 11:09] LABS: Alanine Aminotransferase 25 U/L (7-40); Alkaline Phosphatase 76 U/L (46-116); Anion Gap 11 (5-15); Aspartate Aminotransferase 45 U/L (13-40); BUN/Creatinine Ratio 14.4 (10.0-20.0); Blood Urea Nitrogen 45 mg/dL (9-23); Calcium 9.6 mg/dL (8.5-10.1); Carbon Dioxide 18 mmol/L (20-30); Chloride 111 mmol/L (98-107); Glucose 91 mg/dL (74-106); Sodium 140 mmol/L (136-145)
[2023-11-03 11:10] LABS: Albumin 3.2 g/dL (3.2-4.8); Bilirubin, Total 0.4 mg/dL (0.2-1.0); Total Protein 6.7 g/dL (5.7-8.2)
[2023-11-03] MEDS: BUMETANIDE INJECTION 25 MG in GIVE UN-DILUTED 0 ML IV SCH (12:40)
[2023-11-03] MEDS: methylPREDNISolone SOD SUCC 40 MG/ML VL IV SCH (14:19)
[2023-11-03 14:43] LABS: Creatinine, Urine 54.03 mg/dL (30.0-125.0)
[2023-11-03 14:46] LABS: Protein, Urine 493.3 mg/dL (0.0-11.9); Urine Protein/Creatinine Ratio 9.13
[2023-11-03] MEDS: ATORVASTATIN 20 MG TAB PO SCH (22:44)
[2023-11-04] MEDS: cefTRIAXone 1GM/50ML D5W 50 ML IV SCH (01:38)
[2023-11-04] MEDS: AZITHROMYCIN 500MG/ 250ML 250 ML IV SCH (02:09)
[2023-11-04 05:45] VITALS: O2SAT 96
[2023-11-04 07:01] LABS: Basophils # (auto) 0 10 ^3/uL (0-0.2); Eosinophils # (auto) 0 10 ^3/uL (0-0.8); Hemoglobin 7.2 g/dL (13.5-17.5); Lymphocytes # (auto) 0.3 10 ^3/uL (0.4-5.4)
[2023-11-04 07:08] LABS: Basophils % (auto) 0.2 % (0.0-2.0); Eosinophils % (auto) 0.2 % (0.0-7.0); Hematocrit 21.9 % (41.0-53.0); Lymphocytes % (auto) 5.8 % (10.0-50.0); Mean Corpuscular Hemoglobin 32.4 pg (28.0-32.0); Mean Corpuscular Volume 98.1 fL (80.0-100.0); Monocytes # (auto) 0.1 10 ^3/uL (0-1.3); Monocytes % (auto) 1.1 % (0.0-12.0); Neutrophils # (auto) 4.7 10 ^3/uL (1.6-8.6); Neutrophils % (auto) 92.7 % (37.0-80.0); Nucleated Red Blood Cells % 0.1 %; Red Blood Cells 2.24 10^6/uL (4.5-5.90); Red Cell Distribution Width 16.8 % (11.8-14.3); White Blood Cell 5.1 10^3/uL (4.4-10.8)
[2023-11-04 07:14] LABS: Alanine Aminotransferase 19 U/L (7-40); Albumin 2.9 g/dL (3.2-4.8); Alkaline Phosphatase 66 U/L (46-116); Anion Gap 10 (5-15); Aspartate Aminotransferase 39 U/L (13-40); BUN/Creatinine Ratio 14.1 (10.0-20.0); Blood Urea Nitrogen 44 mg/dL (9-23); Calcium 9.1 mg/dL (8.5-10.1); Carbon Dioxide 19 mmol/L (20-30); Chloride 110 mmol/L (98-107); Glucose 169 mg/dL (74-106); Potassium 4.1 mmol/L (3.5-5.1); Sodium 139 mmol/L (136-145)
[2023-11-04 07:15] LABS: Bilirubin, Total 0.2 mg/dL (0.2-1.0)
[2023-11-04 07:30] VITALS: PULSE 78; RESP 13; O2SAT 96
[2023-11-04] MEDS: APIXABAN 2.5 MG TAB PO SCH (10:08)
[2023-11-04 20:15] VITALS: PULSE 100; RESP 14; O2SAT 97
[2023-11-05] MEDS: metOLazone 5 MG TAB PO SCH (11:00)
[2023-11-05] MEDS ORDERED: cloNIDine 0.2 mg/24hr 7DAY PATCH TD ONE (16:15)
[2023-11-05] MEDS: cloNIDine 0.2 mg/24hr 7DAY PATCH TD SCH (16:45)
[2023-11-05] MEDS: MEROPENEM 1GM IVPB 50 ML IV ONE (16:45)
[2023-11-05 17:46] LABS: INR 1.25 (0.9-1.15); Partial Thromboplastin Time 30.2 SEC (24.5-34.5); Prothrombin Time 12.9 sec (9.3-11.8)
[2023-11-05] MEDS: BUMETANIDE 2.5mg/10ml (0.25 mg/ml) INJ IV SCH (18:00)
[2023-11-05 18:02] VITALS: PULSE 79; RESP 20; O2SAT 96
[2023-11-05 20:05] VITALS: PULSE 73; RESP 10; O2SAT 96
[2023-11-05] MEDS: HYDROcodone-ACET 5/325MG TAB PO PRN (22:07)
[2023-11-05] MEDS: CARVEDILOL 3.125 MG TAB PO SCH (22:10)
[2023-11-06 04:33] LABS: Basophils # (auto) 0 10 ^3/uL (0-0.2); Eosinophils # (auto) 0 10 ^3/uL (0-0.8); Hematocrit 20.4 % (41.0-53.0); Lymphocytes # (auto) 0.4 10 ^3/uL (0.4-5.4); Monocytes # (auto) 0.1 10 ^3/uL (0-1.3); Neutrophils # (auto) 4.4 10 ^3/uL (1.6-8.6); Red Cell Distribution Width 16.4 % (11.8-14.3)
[2023-11-06 04:36] LABS: Basophils % (auto) 0.1 % (0.0-2.0); Eosinophils % (auto) 0.3 % (0.0-7.0); Lymphocytes % (auto) 8.5 % (10.0-50.0); Mean Corpuscular Hgb Conc. 33.3 g/dL (32.0-36.0); Mean Corpuscular Volume 96.2 fL (80.0-100.0); Monocytes % (auto) 1.5 % (0.0-12.0); Neutrophils % (auto) 89.6 % (37.0-80.0); Nucleated Red Blood Cells % 0.1 %; Red Blood Cells 2.12 10^6/uL (4.5-5.90); White Blood Cell 4.9 10^3/uL (4.4-10.8)
[2023-11-06 04:38] LABS: Hemoglobin 6.8 g/dL (13.5-17.5)
[2023-11-06 04:52] LABS: Calcium 9.6 mg/dL (8.7-10.4); Chloride 104 mmol/L (98-107); Potassium 3.3 mmol/L (3.5-5.1)
[2023-11-06 04:53] LABS: Anion Gap 8 (5-15); Carbon Dioxide 21 mmol/L (20-30)
[2023-11-06 04:58] LABS: BUN/Creatinine Ratio 16.6 (10.0-20.0); Blood Urea Nitrogen 51 mg/dL (9-23); Glucose 131 mg/dL (74-106)
[2023-11-06 05:00] LABS: Sodium 133 mmol/L (136-145)
[2023-11-06] MEDS: MEROPENEM 1GM IVPB 50 ML IV SCH (06:47)
[2023-11-06 08:06] LABS: Immunoglobulin A 291 mg/dL (61-437); Immunoglobulin G, Serum 2022 mg/dL (603-1613); Immunoglobulin M 90 mg/dL (20-172)
[2023-11-06] MEDS ORDERED: HYDR-4298 PO (10:58)
[2023-11-06] MEDS ORDERED: METO-159 PO (10:58)
[2023-11-06] MEDS ORDERED: LOSA-533 PO (10:58)
[2023-11-06] MEDS ORDERED: MEMA5TAB16 PO (10:58)
[2023-11-06] MEDS ORDERED: FLUT50SP31 NAS (11:06)
[2023-11-06] MEDS: POTASSIUM CHL 20 Meq TABLET PO ONE (11:13)
[2023-11-06] MEDS ORDERED: LORazepam 2MG/ML-1ML VIAL IV PRN (13:30)
[2023-11-06] MEDS: LORazepam 2MG/ML-1ML VIAL ONE (13:31)
[2023-11-06 15:36] VITALS: PULSE 62; RESP 18; O2SAT 96
[2023-11-06 19:30] VITALS: PULSE 67; RESP 10; O2SAT 97
[2023-11-06 20:10] VITALS: BP 179/82; PULSE 70; RESP 12; TEMP 97.6
[2023-11-06 20:25] VITALS: BP 177/82; PULSE 70; RESP 10; TEMP 97
[2023-11-06 22:38] VITALS: BP 168/75; PULSE 66; RESP 10; TEMP 97.9
[2023-11-07] VITALS (10 sets, daily range): BP systolic 138–193; BP diastolic 60–98; PULSE 48–112; RESP 10–19; TEMP 97.5–98.4; O2SAT 92–100
[2023-11-07] MEDS: cloNIDine HCL 0.1 MG TAB PO ONE (03:10)
[2023-11-07 06:26] LABS: Urine Bacteria FEW /hpf (None Seen); Urine Blood Negative /uL (Negative); Urine Clarity Clear (Clear); Urine Color Colorless (Yellow); Urine Protein, UAD 2+ (Negative); Urine Specific Gravity 1.009 (1.001-1.035); Urine Urobilinogen Normal (Negative); Urine WBC 12 /hpf (0 - 3); Urine pH 5.5 (5.0-9.0)
[2023-11-07 06:32] LABS: Basophils # (auto) 0 10 ^3/uL (0-0.2); Eosinophils # (auto) 0 10 ^3/uL (0-0.8); Hemoglobin 7.7 g/dL (13.5-17.5); Lymphocytes # (auto) 0.6 10 ^3/uL (0.4-5.4); Nucleated Red Blood Cells % 0.1 %
[2023-11-07 06:34] LABS: Basophils % (auto) 0.3 % (0.0-2.0); Chloride 105 mmol/L (98-107); Eosinophils % (auto) 0.2 % (0.0-7.0); Hematocrit 23.3 % (41.0-53.0); Lymphocytes % (auto) 13.5 % (10.0-50.0); Mean Corpuscular Hemoglobin 31.3 pg (28.0-32.0); Mean Corpuscular Hgb Conc. 33.3 g/dL (32.0-36.0); Mean Corpuscular Volume 94.1 fL (80.0-100.0); Monocytes # (auto) 0.2 10 ^3/uL (0-1.3); Monocytes % (auto) 5.3 % (0.0-12.0); Neutrophils # (auto) 3.8 10 ^3/uL (1.6-8.6); Neutrophils % (auto) 80.7 % (37.0-80.0); Potassium 3.5 mmol/L (3.5-5.1); Red Blood Cells 2.47 10^6/uL (4.5-5.90); Red Cell Distribution Width 17.5 % (11.8-14.3); Sodium 135 mmol/L (136-145); White Blood Cell 4.7 10^3/uL (4.4-10.8)
[2023-11-07 06:35] LABS: Anion Gap 9 (5-15); Calcium 8.9 mg/dL (8.5-10.1); Carbon Dioxide 21 mmol/L (20-30)
[2023-11-07 06:40] LABS: BUN/Creatinine Ratio 17.9 (10.0-20.0); Blood Urea Nitrogen 54 mg/dL (9-23); Glucose 84 mg/dL (74-106)
[2023-11-07] MEDS: CARVEDILOL 3.125 MG TAB PO SCH (10:00)
[2023-11-07 15:48] LABS: Base Excess -4.5 mmol/L (-2.0-2.0)
[2023-11-08] VITALS (10 sets, daily range): BP systolic 134–177; BP diastolic 65–80; PULSE 56–78; RESP 16–19; TEMP 97.6–98.6; O2SAT 95–100
[2023-11-08 06:29] LABS: Anion Gap 9 (5-15); Carbon Dioxide 21 mmol/L (20-30); Chloride 106 mmol/L (98-107); Potassium 3.3 mmol/L (3.5-5.1); Sodium 136 mmol/L (136-145)
[2023-11-08 06:30] LABS: Calcium 8.9 mg/dL (8.5-10.1)
[2023-11-08 06:34] LABS: Basophils # (auto) 0 10 ^3/uL (0-0.2); Basophils % (auto) 0.3 % (0.0-2.0); Eosinophils # (auto) 0.1 10 ^3/uL (0-0.8); Hematocrit 29.1 % (41.0-53.0); Hemoglobin 9.5 g/dL (13.5-17.5); Lymphocytes # (auto) 1.6 10 ^3/uL (0.4-5.4); Lymphocytes % (auto) 21.2 % (10.0-50.0); Mean Corpuscular Hemoglobin 31.6 pg (28.0-32.0); Mean Corpuscular Hgb Conc. 32.6 g/dL (32.0-36.0); Mean Corpuscular Volume 96.7 fL (80.0-100.0); Monocytes # (auto) 0.4 10 ^3/uL (0-1.3); Monocytes % (auto) 4.9 % (0.0-12.0); Neutrophils # (auto) 5.4 10 ^3/uL (1.6-8.6); Neutrophils % (auto) 72.6 % (37.0-80.0); Nucleated Red Blood Cells % 0.1 %; Red Blood Cells 3.01 10^6/uL (4.5-5.90); Red Cell Distribution Width 17.8 % (11.8-14.3); White Blood Cell 7.4 10^3/uL (4.4-10.8)
[2023-11-08 06:35] LABS: BUN/Creatinine Ratio 17.2 (10.0-20.0); Blood Urea Nitrogen 52 mg/dL (9-23); Glucose 86 mg/dL (74-106)
[2023-11-08 08:06] LABS: Albumin 2.8 g/dL (2.9-4.4); Alpha-1-Globulin 0.3 g/dL (0.0-0.4); Alpha-2-Globulin 0.5 g/dL (0.4-1.0); Globulin Total 3.7 g/dL (2.2-3.9); Protein Total Serum 6.5 g/dL (6.0-8.5)
[2023-11-08 08:06] LABS: Complement C3 74 mg/dL (82-167)
[2023-11-08 11:06] LABS: Anti-Centromere B Antibody <0.2 AI (0.0-0.9); Anti-Jo-1 Antibody <0.2 AI (0.0-0.9); Anti-dsDNA Antibody <1 IU/mL (0-9); Antichromatin Antibody <0.2 AI (0.0-0.9); Antiscleroderma-70 Antibody <0.2 AI (0.0-0.9); RNP Antibody 0.9 AI (0.0-0.9); Sjogren's Anti-SS-A Antibody <0.2 AI (0.0-0.9); Sjogren's Anti-SS-B Antibody <0.2 AI (0.0-0.9); Smith Antibody <0.2 AI (0.0-0.9)
[2023-11-08] MEDS: POTASSIUM EFFERVESENT TAB 25 MEQ PO ONE (11:17)
[2023-11-08 13:06] LABS: Thyroglobulin Antibody <1.0 IU/mL (0.0-0.9)
[2023-11-08] MEDS: hydrALAZINE HCL 25 MG TAB PO SCH (14:00)
[2023-11-08] MEDS: MUPIROCIN 2% OINT 15gm or 22gm FOR MRSA NARES TOP SCH (21:56)
[2023-11-08] MEDS: cloNIDine HCL 0.1 MG TAB PO SCH (21:57)
[2023-11-09] VITALS (8 sets, daily range): BP systolic 130–174; BP diastolic 60–89; PULSE 62–91; RESP 14–20; TEMP 97.9–99.1; O2SAT 95–99
[2023-11-09 10:18] LABS: Chloride 104 mmol/L (98-107); Potassium 3.6 mmol/L (3.5-5.1); Sodium 137 mmol/L (136-145)
[2023-11-09 10:19] LABS: Anion Gap 9 (5-15); Carbon Dioxide 24 mmol/L (20-30)
[2023-11-09 10:20] LABS: Calcium 9.4 mg/dL (8.7-10.4)
[2023-11-09 10:24] LABS: BUN/Creatinine Ratio 20.3 (10.0-20.0); Blood Urea Nitrogen 56 mg/dL (9-23); Glucose 122 mg/dL (74-106)
[2023-11-09 11:06] LABS: Antiparietal Cell Antibody 6.9 Units (0.0-20.0)
[2023-11-09 16:06] LABS: Antimyeloperoxidase (MPO) Ab <0.2 units (0.0-0.9); Antiproteinase 3 (PR-3) Ab <0.2 units (0.0-0.9)
[2023-11-10] VITALS (8 sets, daily range): BP systolic 105–150; BP diastolic 52–70; PULSE 61–88; RESP 14–20; TEMP 97.8–98.6; O2SAT 94–98
[2023-11-10] MEDS: MORPHINE SULFATE INJ 2 MG/ml SYRG IV PRN (00:51)
[2023-11-10 15:07] LABS: Antithrombin III Antigen 78 % (72-124)
[2023-11-11] VITALS (8 sets, daily range): BP systolic 137–162; BP diastolic 62–72; PULSE 67–91; RESP 16–18; TEMP 97.5–98.5; O2SAT 90–96
[2023-11-11 06:04] LABS: Anion Gap 7 (5-15); Carbon Dioxide 26 mmol/L (20-30); Chloride 105 mmol/L (98-107); Potassium 3.2 mmol/L (3.5-5.1); Sodium 138 mmol/L (136-145)
[2023-11-11 06:06] LABS: Calcium 8.9 mg/dL (8.7-10.4)
[2023-11-11 06:07] LABS: Basophils # (auto) 0 10 ^3/uL (0-0.2); Hemoglobin 8.1 g/dL (13.5-17.5); Lymphocytes # (auto) 1.2 10 ^3/uL (0.4-5.4); Monocytes # (auto) 0.5 10 ^3/uL (0-1.3); Neutrophils # (auto) 4.2 10 ^3/uL (1.6-8.6)
[2023-11-11 06:10] LABS: Basophils % (auto) 0.1 % (0.0-2.0); Blood Urea Nitrogen 56 mg/dL (9-23); Eosinophils # (auto) 0.4 10 ^3/uL (0-0.8); Glucose 96 mg/dL (74-106); Hematocrit 24.9 % (41.0-53.0); Lymphocytes % (auto) 19.2 % (10.0-50.0); Mean Corpuscular Hemoglobin 30.6 pg (28.0-32.0); Mean Corpuscular Hgb Conc. 32.6 g/dL (32.0-36.0); Monocytes % (auto) 7.9 % (0.0-12.0); Neutrophils % (auto) 65.8 % (37.0-80.0); Red Blood Cells 2.65 10^6/uL (4.5-5.90); Red Cell Distribution Width 16.7 % (11.8-14.3); White Blood Cell 6.4 10^3/uL (4.4-10.8)
[2023-11-12] VITALS (7 sets, daily range): BP systolic 123–180; BP diastolic 51–65; PULSE 61–77; RESP 16–20; TEMP 97.9–98.4; O2SAT 95–97
[2023-11-12 06:10] LABS: Basophils # (auto) 0 10 ^3/uL (0-0.2); Eosinophils # (auto) 0.4 10 ^3/uL (0-0.8); Hemoglobin 8.1 g/dL (13.5-17.5); Lymphocytes # (auto) 1.4 10 ^3/uL (0.4-5.4); Neutrophils # (auto) 4.8 10 ^3/uL (1.6-8.6); Nucleated Red Blood Cells % 0.1 %; White Blood Cell 7.2 10^3/uL (4.4-10.8)
[2023-11-12 06:12] LABS: Basophils % (auto) 0.1 % (0.0-2.0); Hematocrit 24.4 % (41.0-53.0); Lymphocytes % (auto) 19.4 % (10.0-50.0); Mean Corpuscular Hemoglobin 31.1 pg (28.0-32.0); Mean Corpuscular Hgb Conc. 33.1 g/dL (32.0-36.0); Mean Corpuscular Volume 93.9 fL (80.0-100.0); Monocytes # (auto) 0.6 10 ^3/uL (0-1.3); Neutrophils % (auto) 66.5 % (37.0-80.0); Red Cell Distribution Width 16.3 % (11.8-14.3)
[2023-11-12 06:16] LABS: Anion Gap 7 (5-15); Calcium 8.8 mg/dL (8.7-10.4); Carbon Dioxide 26 mmol/L (20-30); Chloride 104 mmol/L (98-107); Potassium 3.4 mmol/L (3.5-5.1); Sodium 137 mmol/L (136-145)
[2023-11-12 06:22] LABS: BUN/Creatinine Ratio 20.1 (10.0-20.0); Blood Urea Nitrogen 51 mg/dL (9-23); Glucose 103 mg/dL (74-106)
[2023-11-12] MEDS ORDERED: POTASSIUM EFFERVESENT TAB 25 MEQ PO ONE (10:30)
[2023-11-12] MEDS: POTASSIUM EFFERVESENT TAB 25 MEQ PO ONE (12:30)
[2023-11-12 13:06] LABS: Cytoplasmic (C-ANCA) <1:20 titer (Neg:<1:20); Perinuclear (P-ANCA) <1:20 titer (Neg:<1:20)
[2023-11-13] VITALS (8 sets, daily range): BP systolic 111–156; BP diastolic 59–90; PULSE 63–76; RESP 18–20; TEMP 97.9–99.2; O2SAT 93–98
[2023-11-13 05:17] LABS: Basophils # (auto) 0 10 ^3/uL (0-0.2); Lymphocytes # (auto) 1.4 10 ^3/uL (0.4-5.4); Monocytes # (auto) 0.6 10 ^3/uL (0-1.3); Monocytes % (auto) 11.2 % (0.0-12.0); Nucleated Red Blood Cells % 0.1 %
[2023-11-13 05:19] LABS: Basophils % (auto) 0.4 % (0.0-2.0); Eosinophils # (auto) 0.4 10 ^3/uL (0-0.8); Eosinophils % (auto) 6.4 % (0.0-7.0); Hematocrit 25.1 % (41.0-53.0); Hemoglobin 8.1 g/dL (13.5-17.5); Lymphocytes % (auto) 24.5 % (10.0-50.0); Mean Corpuscular Hemoglobin 30.8 pg (28.0-32.0); Mean Corpuscular Hgb Conc. 32.4 g/dL (32.0-36.0); Neutrophils # (auto) 3.2 10 ^3/uL (1.6-8.6); Neutrophils % (auto) 57.5 % (37.0-80.0); Red Blood Cells 2.64 10^6/uL (4.5-5.90); Red Cell Distribution Width 16.2 % (11.8-14.3); White Blood Cell 5.6 10^3/uL (4.4-10.8)
[2023-11-13 05:27] LABS: Chloride 105 mmol/L (98-107); Potassium 3.4 mmol/L (3.5-5.1); Sodium 138 mmol/L (136-145)
[2023-11-13 05:28] LABS: Anion Gap 7 (5-15); Calcium 8.7 mg/dL (8.7-10.4); Carbon Dioxide 26 mmol/L (20-30)
[2023-11-13 05:33] LABS: BUN/Creatinine Ratio 18.3 (10.0-20.0); Blood Urea Nitrogen 47 mg/dL (9-23); Glucose 91 mg/dL (74-106)
[2023-11-13] MEDS ORDERED: POTA-211 PO (10:38)
[2023-11-13] MEDS ORDERED: BUM1T PO (10:38)
[2023-11-13] MEDS ORDERED: METO10TA7 PO (10:38)
[2023-11-13] MEDS: POTASSIUM EFFERVESENT TAB 25 MEQ PO ONE (14:09)
[2023-11-14] VITALS (11 sets, daily range): BP systolic 121–192; BP diastolic 60–90; PULSE 58–80; RESP 17–20; TEMP 97.6–98.4; O2SAT 93–97
== END 2023-11-14 22:48 | disposition home health service (06) | DRG 91 ==
LOC: ER 23:15 → EDBD 23:15 → TELE 11-03 06:01 → TELE-EAST 11-06 23:49 → EAST 11-12 18:56
PROVIDERS: ADMIT Internal Medicine; ATTEND Internal Medicine
PROC: 5A09357 Assistance with Respiratory Ventilation, Less than 24 Consecutive Hours, Continuous Positive Airway Pressure (ICD-10-PCS; 2023-11-02)
PROC: 30233N1 Transfusion of Nonautologous Red Blood Cells into Peripheral Vein, Percutaneous Approach (ICD-10-PCS; principal; 2023-11-03)
PROC: 5A09357 Assistance with Respiratory Ventilation, Less than 24 Consecutive Hours, Continuous Positive Airway Pressure (ICD-10-PCS; 2023-11-03)
DX: G92.8 Other toxic encephalopathy (principal); I50.33 Acute on chronic diastolic (congestive) heart failure; J96.01 Acute respiratory failure with hypoxia; N17.0 Acute kidney failure with tubular necrosis; J18.9 Pneumonia, unspecified organism; I16.1 Hypertensive emergency; J44.0 Chronic obstructive pulmonary disease with (acute) lower respiratory infection; N18.4 Chronic kidney disease, stage 4 (severe); N39.0 Urinary tract infection, site not specified; I13.0 Hypertensive heart and chronic kidney disease with heart failure and stage 1 through stage 4 chronic kidney disease, or unspecified chronic kidney disease; D63.1 Anemia in chronic kidney disease; S43.005A Unspecified dislocation of left shoulder joint, initial encounter; E03.9 Hypothyroidism, unspecified; F03.90 Unspecified dementia, unspecified severity, without behavioral disturbance, psychotic disturbance, mood disturbance, and anxiety; M24.411 Recurrent dislocation, right shoulder; I73.9 Peripheral vascular disease, unspecified; L89.899 Pressure ulcer of other site, unspecified stage; S43.014A Anterior dislocation of right humerus, initial encounter; R80.8 Other proteinuria; B19.20 Unspecified viral hepatitis C without hepatic coma; Z93.3 Colostomy status; I25.2 Old myocardial infarction; Z74.01 Bed confinement status; Z78.1 Physical restraint status; Z79.01 Long term (current) use of anticoagulants; Z79.899 Other long term (current) drug therapy; Z86.73 Personal history of transient ischemic attack (TIA), and cerebral infarction without residual deficits; Z87.891 Personal history of nicotine dependence; Z89.611 Acquired absence of right leg above knee; Z89.511 Acquired absence of right leg below knee; Z86.711 Personal history of pulmonary embolism; Z82.3 Family history of stroke; X58.XXXA Exposure to other specified factors, initial encounter; Y93.89 Activity, other specified; Y92.89 Other specified places as the place of occurrence of the external cause; Y99.8 Other external cause status
CPT/HCPCS: 36415; 36600; 71045; 73030; 76775; 80048; 80053; 81001; 82306; 82570; 82595; 82784; 82805; 82962; 83036; 83516; 83520; 83605; 83735; 83880; 83970; 84100; 84155; 84156; 84165; 84300; 84484; 85025; 85301; 85610; 85730; 86160; 86225; 86235; 86256; 86334; 86335; 86800; 86803; 86850; 86900; 86901; 86920; 87040; 87077; 87081; 87086; 87186; 92507; 92610; 93005; 93306; 94660; 99291; G0378; J2185

== ENCOUNTER 2023-12-20 17:42 | Inpatient (IN) | payer OTHER, MEDICAID ==
[~2023-12-20] VITALS: Ht 175.3 cm; Wt 89.3 kg
[~2023-12-20 17:42] MED LIST changes: +BUM1T PO; +FLUT50SP31 NAS; +HYDR-4298 PO; -HYDR25TA87 PO; -LEVO500T91 PO; -LINE1TAB6 PO; +LOSA-533 PO; -LOSA-534 PO; -MEMA1TAB5 PO; +MEMA5TAB16 PO; -METO-158 PO; +METO-159 PO; +METO10TA7 PO; +POTA-211 PO; -POTA-215 PO; -SERT25TA84 PO
[2023-12-20 19:18] LABS: Basophils # (auto) 0.1 10 ^3/uL (0-0.2); Basophils % (auto) 0.7 % (0.0-2.0); Eosinophils # (auto) 0.2 10 ^3/uL (0-0.8); Eosinophils % (auto) 2.3 % (0.0-7.0); Lymphocytes # (auto) 1.9 10 ^3/uL (0.4-5.4); Neutrophils # (auto) 4.9 10 ^3/uL (1.6-8.6); Neutrophils % (auto) 63.9 % (37.0-80.0); Nucleated Red Blood Cells % 0.1 %; White Blood Cell 7.6 10^3/uL (4.4-10.8)
[2023-12-20 19:33] LABS: INR 1.15 (0.9-1.15); Prothrombin Time 12.1 sec (9.3-11.8)
[2023-12-20 19:36] LABS: Alanine Aminotransferase 95 U/L (7-40); Albumin 2.5 g/dL (3.2-4.8); Alkaline Phosphatase 141 U/L (46-116); Anion Gap 7 (5-15); Aspartate Aminotransferase 109 U/L (13-40); BUN/Creatinine Ratio 24.2 (10.0-20.0); Calcium 9.4 mg/dL (8.5-10.1); Carbon Dioxide 21 mmol/L (20-30); Chloride 107 mmol/L (98-107); Glucose 80 mg/dL (74-106); Hematocrit 21.5 % (41.0-53.0); Lymphocytes % (auto) 24.5 % (10.0-50.0); Mean Corpuscular Hemoglobin 31.1 pg (28.0-32.0); Mean Corpuscular Hgb Conc. 32.5 g/dL (32.0-36.0); Monocytes # (auto) 0.7 10 ^3/uL (0-1.3); Monocytes % (auto) 8.6 % (0.0-12.0); Potassium 5.3 mmol/L (3.5-5.1); Red Blood Cells 2.24 10^6/uL (4.5-5.90); Red Cell Distribution Width 15.2 % (11.8-14.3); Sodium 135 mmol/L (136-145)
[2023-12-20 19:37] LABS: Bilirubin, Total < 0.2 mg/dL (0.2-1.0); Total Protein 5.4 g/dL (5.7-8.2)
[2023-12-20 20:36] LABS: Blood Urea Nitrogen 99 mg/dL (9-23)
[2023-12-21] VITALS (15 sets, daily range): BP systolic 138–192; BP diastolic 57–86; PULSE 48–58; RESP 10–20; TEMP 97.3–98.8; O2SAT 95–100
[2023-12-21] MEDS: PANTOPRAZOLE 40 MG/10 ML VIAL INJ IV ONE (00:24)
[2023-12-21] MEDS ORDERED: ONDANSETRON HCL 4 MG/2 ML VIAL IV PRN (00:30)
[2023-12-21] MEDS ORDERED: NITROGLYCERIN 0.4 MG SL TAB SL PRN (00:30)
[2023-12-21] MEDS ORDERED: DOCUSATE SOD 100 MG CAP PO PRN (00:30)
[2023-12-21] MEDS ORDERED: MORPHINE SULFATE INJ 2 MG/ml SYRG IV PRN (00:30)
[2023-12-21] MEDS: OCTREOTIDE ACETATE 100 MCG/ML VL SUBCUT ONE (00:32)
[2023-12-21 03:41] LABS: Basophils # (auto) 0.1 10 ^3/uL (0-0.2); Red Cell Distribution Width 15.6 % (11.8-14.3); White Blood Cell 7.3 10^3/uL (4.4-10.8)
[2023-12-21 03:44] LABS: Basophils % (auto) 0.8 % (0.0-2.0); Eosinophils # (auto) 0.2 10 ^3/uL (0-0.8); Eosinophils % (auto) 2.2 % (0.0-7.0); Hematocrit 20.4 % (41.0-53.0); Lymphocytes # (auto) 2.1 10 ^3/uL (0.4-5.4); Lymphocytes % (auto) 28.4 % (10.0-50.0); Mean Corpuscular Hemoglobin 31.7 pg (28.0-32.0); Mean Corpuscular Hgb Conc. 33.3 g/dL (32.0-36.0); Mean Corpuscular Volume 95.3 fL (80.0-100.0); Monocytes # (auto) 0.5 10 ^3/uL (0-1.3); Monocytes % (auto) 6.3 % (0.0-12.0); Neutrophils # (auto) 4.5 10 ^3/uL (1.6-8.6); Neutrophils % (auto) 62.3 % (37.0-80.0); Red Blood Cells 2.14 10^6/uL (4.5-5.90)
[2023-12-21 03:49] LABS: Anion Gap 8 (5-15); Carbon Dioxide 21 mmol/L (20-30); Chloride 106 mmol/L (98-107); Potassium 5.2 mmol/L (3.5-5.1); Sodium 135 mmol/L (136-145)
[2023-12-21 03:50] LABS: Calcium 9.2 mg/dL (8.5-10.1)
[2023-12-21 03:55] LABS: BUN/Creatinine Ratio 27.2 (10.0-20.0); Glucose 77 mg/dL (74-106)
[2023-12-21 04:12] LABS: Blood Urea Nitrogen 110 mg/dL (9-23); Hemoglobin 6.8 g/dL (13.5-17.5)
[2023-12-21] MEDS: hydrALAZINE HCL 20 MG/ML VL IV PRN (08:38)
[2023-12-21] MEDS: FUROSEMIDE 100 MG/10ML VIAL IV ONE (09:16)
[2023-12-21] MEDS: SODIUM CHLORIDE 0.9% 1,000 ML IV ONE (09:17)
[2023-12-21] MEDS: PANTOPRAZOLE 40 MG/10 ML VIAL INJ IV SCH (10:42)
[2023-12-21 12:15] LABS: Hematocrit 28.6 % (41.0-53.0); Hemoglobin 9.3 g/dL (13.5-17.5)
[2023-12-21] MEDS: CALCIUM GLUC 1,000mg/50ml-NS 50 ML IV ONE (14:42)
[2023-12-21] MEDS: DEXTROSE (50%) 50ML SYRG IV ONE (14:56)
[2023-12-21] MEDS: SODIUM BICARB 8.4% 50Meq/50ml SYR INJ IV ONE (15:07)
[2023-12-21] MEDS: InsuLIN REG 1unit/0.01ml Soln (100units/ml) IV ONE (15:10)
[2023-12-21 17:52] LABS: Hematocrit 29.4 % (41.0-53.0); Hemoglobin 9.4 g/dL (13.5-17.5)
[2023-12-21 18:11] LABS: Chloride 109 mmol/L (98-107); Potassium 4.9 mmol/L (3.5-5.1); Sodium 136 mmol/L (136-145)
[2023-12-21 18:12] LABS: Anion Gap 6 (5-15); Calcium 9.2 mg/dL (8.5-10.1); Carbon Dioxide 21 mmol/L (20-30)
[2023-12-21 18:17] LABS: BUN/Creatinine Ratio 22.9 (10.0-20.0); Glucose 107 mg/dL (74-106)
[2023-12-21 18:32] LABS: Blood Urea Nitrogen 90 mg/dL (9-23)
[2023-12-22] VITALS (8 sets, daily range): BP systolic 128–169; BP diastolic 59–79; PULSE 51–76; RESP 16–94; TEMP 97.5–98.8; O2SAT 93–100
[2023-12-22 00:54] LABS: Hematocrit 32.8 % (41.0-53.0); Hemoglobin 10.8 g/dL (13.5-17.5)
[2023-12-22 06:08] LABS: Basophils # (auto) 0 10 ^3/uL (0-0.2); Basophils % (auto) 0.7 % (0.0-2.0); Eosinophils # (auto) 0.1 10 ^3/uL (0-0.8); Eosinophils % (auto) 1.2 % (0.0-7.0); Hematocrit 25.2 % (41.0-53.0); Hemoglobin 8.5 g/dL (13.5-17.5); Lymphocytes # (auto) 1.9 10 ^3/uL (0.4-5.4); Lymphocytes % (auto) 30.1 % (10.0-50.0); Mean Corpuscular Hemoglobin 31.7 pg (28.0-32.0); Mean Corpuscular Hgb Conc. 33.9 g/dL (32.0-36.0); Mean Corpuscular Volume 93.5 fL (80.0-100.0); Monocytes # (auto) 0.4 10 ^3/uL (0-1.3); Monocytes % (auto) 6.8 % (0.0-12.0); Neutrophils # (auto) 3.9 10 ^3/uL (1.6-8.6); Neutrophils % (auto) 61.2 % (37.0-80.0); Red Blood Cells 2.69 10^6/uL (4.5-5.90); Red Cell Distribution Width 16.3 % (11.8-14.3); White Blood Cell 6.3 10^3/uL (4.4-10.8)
[2023-12-22 06:09] LABS: Chloride 109 mmol/L (98-107); Potassium 4.9 mmol/L (3.5-5.1); Sodium 137 mmol/L (136-145)
[2023-12-22 06:10] LABS: Anion Gap 7 (5-15); Carbon Dioxide 21 mmol/L (20-30)
[2023-12-22 06:11] LABS: Calcium 9.2 mg/dL (8.7-10.4)
[2023-12-22 06:15] LABS: BUN/Creatinine Ratio 25.7 (10.0-20.0); Glucose 82 mg/dL (74-106)
[2023-12-22 07:42] LABS: Blood Urea Nitrogen 104 mg/dL (9-23)
[2023-12-22] MEDS: SODIUM CHLORIDE 0.9% 1,000 ML IV SCH (08:00)
[2023-12-22] MEDS: MORPHINE SULFATE INJ 2 MG/ml SYRG IV PRN (22:29)
[2023-12-23] VITALS (7 sets, daily range): BP systolic 140–174; BP diastolic 68–77; PULSE 61–70; RESP 16–20; TEMP 98.1–98.3; O2SAT 93–97
[2023-12-23 07:00] LABS: Eosinophils # (auto) 0.3 10 ^3/uL (0-0.8); Hemoglobin 7.7 g/dL (13.5-17.5); Lymphocytes # (auto) 2.1 10 ^3/uL (0.4-5.4); Monocytes # (auto) 0.4 10 ^3/uL (0-1.3); Monocytes % (auto) 6.9 % (0.0-12.0); Neutrophils # (auto) 3.2 10 ^3/uL (1.6-8.6); Red Cell Distribution Width 15.7 % (11.8-14.3); White Blood Cell 6.1 10^3/uL (4.4-10.8)
[2023-12-23 07:04] LABS: Basophils # (auto) 0.1 10 ^3/uL (0-0.2); Basophils % (auto) 0.9 % (0.0-2.0); Eosinophils % (auto) 4.7 % (0.0-7.0); Lymphocytes % (auto) 34.3 % (10.0-50.0); Mean Corpuscular Hemoglobin 31.3 pg (28.0-32.0); Mean Corpuscular Hgb Conc. 33.6 g/dL (32.0-36.0); Mean Corpuscular Volume 93.2 fL (80.0-100.0); Neutrophils % (auto) 53.2 % (37.0-80.0); Red Blood Cells 2.47 10^6/uL (4.5-5.90)
[2023-12-23 07:11] LABS: Anion Gap 5 (5-15); Carbon Dioxide 22 mmol/L (20-30); Chloride 111 mmol/L (98-107); Potassium 4.4 mmol/L (3.5-5.1); Sodium 138 mmol/L (136-145)
[2023-12-23 07:12] LABS: Calcium 8.8 mg/dL (8.5-10.1)
[2023-12-23 07:18] LABS: BUN/Creatinine Ratio 25.1 (10.0-20.0); Glucose 94 mg/dL (74-106)
[2023-12-23 07:30] LABS: Blood Urea Nitrogen 97 mg/dL (9-23)
[2023-12-23] MEDS: APIXABAN 2.5 MG TAB PO SCH (18:00)
[2023-12-24] VITALS (8 sets, daily range): BP systolic 141–164; BP diastolic 64–81; PULSE 69–96; RESP 17–18; TEMP 97.5–98.7; O2SAT 93–97
[2023-12-24 06:57] LABS: Basophils # (auto) 0 10 ^3/uL (0-0.2); Lymphocytes # (auto) 1.9 10 ^3/uL (0.4-5.4); Monocytes # (auto) 0.4 10 ^3/uL (0-1.3)
[2023-12-24 06:59] LABS: Basophils % (auto) 0.6 % (0.0-2.0); Eosinophils # (auto) 0.3 10 ^3/uL (0-0.8); Eosinophils % (auto) 6.1 % (0.0-7.0); Hematocrit 21.5 % (41.0-53.0); Hemoglobin 7.2 g/dL (13.5-17.5); Lymphocytes % (auto) 33.1 % (10.0-50.0); Mean Corpuscular Hemoglobin 31.5 pg (28.0-32.0); Mean Corpuscular Hgb Conc. 33.3 g/dL (32.0-36.0); Mean Corpuscular Volume 94.6 fL (80.0-100.0); Monocytes % (auto) 7.8 % (0.0-12.0); Neutrophils % (auto) 52.4 % (37.0-80.0); Nucleated Red Blood Cells % 0.1 %; Red Blood Cells 2.27 10^6/uL (4.5-5.90); Red Cell Distribution Width 15.6 % (11.8-14.3); White Blood Cell 5.7 10^3/uL (4.4-10.8)
[2023-12-24 07:43] LABS: Anion Gap 5 (5-15); Carbon Dioxide 20 mmol/L (20-30); Chloride 111 mmol/L (98-107); Potassium 4.5 mmol/L (3.5-5.1); Sodium 136 mmol/L (136-145)
[2023-12-24 07:45] LABS: Calcium 8.7 mg/dL (8.5-10.1)
[2023-12-24 07:47] LABS: Glucose 76 mg/dL (74-106)
[2023-12-24 08:04] LABS: Blood Urea Nitrogen 84 mg/dL (9-23)
[2023-12-24 08:08] LABS: BUN/Creatinine Ratio 23.4 (10.0-20.0)
[2023-12-24 10:56] LABS: Hepatitis B Surface Antigen Negative (Negative)
[2023-12-24 11:16] LABS: Hepatitis A Ab IgM Negative
[2023-12-24 11:17] LABS: Hepatitis B Core IgM Negative
[2023-12-24 12:10] LABS: Hepatitis C Antibody Positive (Negative)
[2023-12-24] MEDS: EPOETIN ALFA-EPBX 10,000 UNIT/1ML VIAL SC ONE (22:06)
[2023-12-24 23:35] LABS: Hematocrit 23.2 % (41.0-53.0); Hemoglobin 7.6 g/dL (13.5-17.5)
[2023-12-25] VITALS (10 sets, daily range): BP systolic 151–194; BP diastolic 63–89; PULSE 82–114; RESP 16–22; TEMP 97.9–99.5; O2SAT 92–97
[2023-12-25] MEDS ORDERED: cloNIDine HCL 0.1 MG TAB PO PRN (06:45)
[2023-12-25 07:08] LABS: Basophils # (auto) 0 10 ^3/uL (0-0.2); Basophils % (auto) 0.4 % (0.0-2.0); Eosinophils # (auto) 0.3 10 ^3/uL (0-0.8); Eosinophils % (auto) 3.3 % (0.0-7.0); Hematocrit 23.4 % (41.0-53.0); Hemoglobin 7.8 g/dL (13.5-17.5); Lymphocytes # (auto) 1.3 10 ^3/uL (0.4-5.4); Mean Corpuscular Hemoglobin 31.1 pg (28.0-32.0); Mean Corpuscular Hgb Conc. 33.3 g/dL (32.0-36.0); Mean Corpuscular Volume 93.2 fL (80.0-100.0); Monocytes # (auto) 0.3 10 ^3/uL (0-1.3); Monocytes % (auto) 4.5 % (0.0-12.0); Neutrophils # (auto) 5.7 10 ^3/uL (1.6-8.6); Neutrophils % (auto) 74.8 % (37.0-80.0); Red Blood Cells 2.52 10^6/uL (4.5-5.90); Red Cell Distribution Width 15.7 % (11.8-14.3); White Blood Cell 7.7 10^3/uL (4.4-10.8)
[2023-12-25 07:18] LABS: Anion Gap 10 (5-15); Carbon Dioxide 18 mmol/L (20-30); Chloride 112 mmol/L (98-107); Potassium 4.2 mmol/L (3.5-5.1); Sodium 140 mmol/L (136-145)
[2023-12-25 07:24] LABS: BUN/Creatinine Ratio 21.1 (10.0-20.0); Blood Urea Nitrogen 78 mg/dL (9-23); Glucose 89 mg/dL (74-106)
[2023-12-25] MEDS: METOPROLOL TARTRATE 50 MG TAB PO SCH (08:26)
[2023-12-25] MEDS: cloNIDine HCL 0.1 MG TAB PO PRN (10:45)
[2023-12-25 15:32] LABS: Magnesium 1.5 mg/dL (1.6-2.6)
[2023-12-25] MEDS: SODIUM BICARB 50mEq/50ml Vial 50 ML in SOD CHL 0.45% 1,000 ML IV SCH (17:50)
[2023-12-25] MEDS: BUMETANIDE 2.5mg/10ml (0.25 mg/ml) INJ IV SCH (17:50)
[2023-12-26] VITALS (55 sets, daily range): BP systolic 119–211; BP diastolic 57–104; PULSE 46–119; RESP 16–20; TEMP 97–99.1; O2SAT 91–100
[2023-12-26 07:10] LABS: Basophils # (auto) 0 10 ^3/uL (0-0.2); Basophils % (auto) 0.4 % (0.0-2.0); Eosinophils # (auto) 0.4 10 ^3/uL (0-0.8); Hemoglobin 7.7 g/dL (13.5-17.5); Lymphocytes % (auto) 11.5 % (10.0-50.0); Monocytes # (auto) 0.4 10 ^3/uL (0-1.3)
[2023-12-26 07:11] LABS: Eosinophils % (auto) 5.9 % (0.0-7.0); Hematocrit 23.3 % (41.0-53.0); Lymphocytes # (auto) 0.9 10 ^3/uL (0.4-5.4); Mean Corpuscular Hemoglobin 31.2 pg (28.0-32.0); Mean Corpuscular Hgb Conc. 33.1 g/dL (32.0-36.0); Mean Corpuscular Volume 94.4 fL (80.0-100.0); Monocytes % (auto) 5.3 % (0.0-12.0); Neutrophils # (auto) 5.8 10 ^3/uL (1.6-8.6); Neutrophils % (auto) 76.9 % (37.0-80.0); Nucleated Red Blood Cells % 0.1 %; Red Blood Cells 2.47 10^6/uL (4.5-5.90); White Blood Cell 7.5 10^3/uL (4.4-10.8)
[2023-12-26 07:31] LABS: Alanine Aminotransferase 38 U/L (7-40); Alkaline Phosphatase 89 U/L (46-116); Anion Gap 5 (5-15); BUN/Creatinine Ratio 22.3 (10.0-20.0); Blood Urea Nitrogen 76 mg/dL (9-23); Calcium 9.3 mg/dL (8.5-10.1); Carbon Dioxide 22 mmol/L (20-30); Chloride 110 mmol/L (98-107); Glucose 103 mg/dL (74-106); Sodium 137 mmol/L (136-145)
[2023-12-26 07:33] LABS: Albumin 2.6 g/dL (3.2-4.8); Aspartate Aminotransferase 34 U/L (13-40); Bilirubin, Total 0.2 mg/dL (0.2-1.0); Total Protein 5.4 g/dL (5.7-8.2)
[2023-12-26] MEDS: NOREPINEPHRINE 8 MG/250ML KIT 0 ML IV ONE (13:52)
[2023-12-26] MEDS: NOREPINEPHRINE 8 MG/250ML KIT 250 ML IV SCH (14:00)
[2023-12-26] MEDS: MIDAZOLAM DRIP 50 mg/50mL 50 ML IV SCH (14:00)
[2023-12-26] MEDS: fentaNYL Drip 2500mCg/250mlNS 250 ML IV SCH (14:00)
[2023-12-26 14:04] LABS: Base Excess -9.1 mmol/L (-2.0-2.0)
[2023-12-26] MEDS: BUMETANIDE 1mg/4ml VIAL (0.25mg/ml) ONE (14:20)
[2023-12-26] MEDS: BUMETANIDE 2.5mg/10ml (0.25 mg/ml) INJ IV ONE (14:20)
[2023-12-26] MEDS: ETOMIDATE (2MG/ML) 20ML VIAL IV ONE (15:40)
[2023-12-26] MEDS: PROPOFOL 100 ML IV ONE (15:40)
[2023-12-26] MEDS: MIDAZOLAM DRIP 50 mg/50mL 50 ML IV ONE (15:40)
[2023-12-26] MEDS: ROCURONIUM 10MG/ML 10ML VIAL IV ONE (15:40)
[2023-12-26] MEDS: SUCCINYLCHOLINE CHLORIDE 20 MG/ML 10ML VIAL IV ONE (15:40)
[2023-12-26] MEDS: PROPOFOL 100 ML IV SCH (15:40)
[2023-12-26 16:15] LABS: Base Excess -8.3 mmol/L (-2.0-2.0)
[2023-12-26] MEDS: BUMETANIDE 2.5mg/10ml (0.25 mg/ml) INJ IV SCH (17:57)
[2023-12-27] VITALS (120 sets, daily range): BP systolic 83–186; BP diastolic 48–78; PULSE 45–90; RESP 18–22; TEMP 90–98.8; O2SAT 96–100
[2023-12-27 04:43] LABS: Hematocrit 26.7 % (41.0-53.0); Hemoglobin 8.7 g/dL (13.5-17.5); Mean Corpuscular Hemoglobin 30.4 pg (28.0-32.0); Mean Corpuscular Hgb Conc. 32.6 g/dL (32.0-36.0); Mean Corpuscular Volume 93.2 fL (80.0-100.0); Red Blood Cells 2.87 10^6/uL (4.5-5.90); Red Cell Distribution Width 15.8 % (11.8-14.3); White Blood Cell 5.3 10^3/uL (4.4-10.8)
[2023-12-27 04:49] LABS: Band Neutrophils % (manual) 0; Basophils % (manual) 0 (0.0-2.0); Blast Cells 0; Metamyelocytes % 0; Myelocytes % 0; Promyelocytes % 0; Reactive Lymphocytes 0
[2023-12-27 05:16] LABS: Alanine Aminotransferase 30 U/L (7-40); Albumin 2.5 g/dL (3.2-4.8); Alkaline Phosphatase 80 U/L (46-116); Anion Gap 10 (5-15); Aspartate Aminotransferase 30 U/L (13-40); BUN/Creatinine Ratio 20.1 (10.0-20.0); Blood Urea Nitrogen 70 mg/dL (9-23); Calcium 9.5 mg/dL (8.7-10.4); Carbon Dioxide 19 mmol/L (20-30); Chloride 110 mmol/L (98-107); Glucose 81 mg/dL (74-106); Potassium 3.9 mmol/L (3.5-5.1); Sodium 139 mmol/L (136-145)
[2023-12-27 05:17] LABS: Bilirubin, Total 0.2 mg/dL (0.2-1.0); Total Protein 5.4 g/dL (5.7-8.2)
[2023-12-27 05:41] LABS: Eosinophils % (manual) 10 (0-7); Large Platelets FEW; Lymphocytes % (manual) 28 (10.0-50.0); Monocytes % (manual) 9 (0-12); Platelet Estimate Decreased
[2023-12-27 05:42] LABS: Anisocytosis Slight
[2023-12-27 07:25] LABS: Base Excess -7.4 mmol/L (-2.0-2.0)
[2023-12-27] MEDS ORDERED: SODIUM BICARB 50mEq/50ml Vial 50 ML in SOD CHL 0.45% 1,000 ML IV SCH (14:00)
[2023-12-27 14:41] LABS: Urine Bacteria FEW /hpf (None Seen); Urine Blood Negative /uL (Negative); Urine Clarity Turbid (Clear); Urine Color Light-Yellow (Yellow); Urine Protein, UAD 2+ (Negative); Urine Specific Gravity 1.009 (1.001-1.035); Urine Urobilinogen Normal (Negative); Urine WBC 82 /hpf (0 - 3); Urine pH 5.5 (5.0-9.0)
[2023-12-27 14:53] LABS: Creatinine, Urine 24.54 mg/dL (30.0-125.0); Urine Protein/Creatinine Ratio 7.05
[2023-12-27] MEDS: MEROPENEM 500MG IVPB 50 ML IV ONE (16:47)
[2023-12-27] MEDS: SODIUM BICARB 50mEq/50ml Vial 50 ML in SOD CHL 0.45% 1,000 ML IV SCH (17:08)
[2023-12-27] MEDS ORDERED: metroNIDAZOLE 500MG/100ML 100 ML IV SCH (18:00)
[2023-12-27 19:37] LABS: INR 1.17 (0.9-1.15); Prothrombin Time 12.3 sec (9.3-11.8)
[2023-12-27] MEDS: METOPROLOL TARTRATE 25 MG TAB PO SCH (21:06)
[2023-12-27] MEDS: Jevity 1.2 Cal/Fiber 1 Liter GT SCH (21:20)
[2023-12-28] VITALS (111 sets, daily range): BP systolic 111–181; BP diastolic 58–79; PULSE 68–96; RESP 17–24; TEMP 67.6–99; O2SAT 95–100
[2023-12-28 03:39] LABS: Basophils # (auto) 0 10 ^3/uL (0-0.2); Eosinophils # (auto) 0.3 10 ^3/uL (0-0.8); Monocytes # (auto) 0.3 10 ^3/uL (0-1.3); Neutrophils # (auto) 1.9 10 ^3/uL (1.6-8.6); Nucleated Red Blood Cells % 0.1 %; White Blood Cell 3.4 10^3/uL (4.4-10.8)
[2023-12-28 03:45] LABS: Basophils % (auto) 0.5 % (0.0-2.0); Eosinophils % (auto) 9.2 % (0.0-7.0); Hematocrit 20.9 % (41.0-53.0); Lymphocytes # (auto) 0.9 10 ^3/uL (0.4-5.4); Lymphocytes % (auto) 25.5 % (10.0-50.0); Mean Corpuscular Hemoglobin 31.5 pg (28.0-32.0); Mean Corpuscular Hgb Conc. 32.6 g/dL (32.0-36.0); Mean Corpuscular Volume 96.7 fL (80.0-100.0); Monocytes % (auto) 9.2 % (0.0-12.0); Neutrophils % (auto) 55.6 % (37.0-80.0); Red Blood Cells 2.16 10^6/uL (4.5-5.90); Red Cell Distribution Width 16.4 % (11.8-14.3)
[2023-12-28 03:49] LABS: Anion Gap 14 (5-15); Carbon Dioxide 17 mmol/L (20-30); Chloride 110 mmol/L (98-107); Potassium 3.7 mmol/L (3.5-5.1); Sodium 141 mmol/L (136-145)
[2023-12-28 03:55] LABS: BUN/Creatinine Ratio 17.7 (10.0-20.0); Blood Urea Nitrogen 62 mg/dL (9-23); Glucose 54 mg/dL (74-106)
[2023-12-28 03:56] LABS: Magnesium 1.6 mg/dL (1.6-2.6)
[2023-12-28 04:11] LABS: Hemoglobin 6.8 g/dL (13.5-17.5)
[2023-12-28] MEDS: MEROPENEM 500MG IVPB 50 ML IV SCH (05:29)
[2023-12-28 07:45] LABS: Base Excess -7.7 mmol/L (-2.0-2.0)
[2023-12-28] MEDS: LIDOCAINE 1% (LOCAL ANESTH.) PF 5ml SDV ID ONE (09:30)
[2023-12-28] MEDS ORDERED: CEFEPIME 2GM/50ML NS 50 ML IV SCH (10:00)
[2023-12-28] MEDS: Juven Orange Powder PACKET 27.5gm PO SCH (10:42)
[2023-12-28] MEDS: SODIUM CHLOR 0.9% PF (SALINE LOCK) 10ML VIAL/SYR IV SCH (10:42)
[2023-12-28] MEDS: SODIUM BICARB 50mEq/50ml Vial 75 ML in SOD CHL 0.45% 1,000 ML IV SCH (10:43)
[2023-12-28] MEDS: MAGNESIUM SULFATE 1GM/100ML 100 ML IV SCH (10:58)
[2023-12-28] MEDS: APIXABAN 2.5 MG TAB PO SCH (15:00)
[2023-12-28] MEDS: IPRATROPIUM BROM 0.5 MG/2.5ML INH SOL NEB SCH (18:12)
[2023-12-28] MEDS: ALBUTEROL SULF 2.5 MG/0.5ML(0.5%) NEB SOLN NEB SCH (18:12)
[2023-12-29] VITALS (117 sets, daily range): BP systolic 111–208; BP diastolic 53–79; PULSE 68–93; RESP 11–23; TEMP 97–98.2; O2SAT 95–100
[2023-12-29 04:25] LABS: Basophils # (auto) 0.1 10 ^3/uL (0-0.2); Basophils % (auto) 1.3 % (0.0-2.0); Eosinophils # (auto) 0.3 10 ^3/uL (0-0.8); Eosinophils % (auto) 7.4 % (0.0-7.0); Hematocrit 24.8 % (41.0-53.0); Hemoglobin 8.8 g/dL (13.5-17.5); Lymphocytes # (auto) 0.9 10 ^3/uL (0.4-5.4); Mean Corpuscular Hemoglobin 33.1 pg (28.0-32.0); Mean Corpuscular Hgb Conc. 35.5 g/dL (32.0-36.0); Mean Corpuscular Volume 93.2 fL (80.0-100.0); Monocytes # (auto) 0.4 10 ^3/uL (0-1.3); Monocytes % (auto) 10.7 % (0.0-12.0); Neutrophils # (auto) 2.3 10 ^3/uL (1.6-8.6); Neutrophils % (auto) 57.6 % (37.0-80.0); Nucleated Red Blood Cells % 0.2 %; Red Blood Cells 2.67 10^6/uL (4.5-5.90); Red Cell Distribution Width 15.5 % (11.8-14.3)
[2023-12-29 04:49] LABS: Alanine Aminotransferase 25 U/L (7-40); Alkaline Phosphatase 67 U/L (46-116); Anion Gap 8 (5-15); BUN/Creatinine Ratio 21.2 (10.0-20.0); Blood Urea Nitrogen 69 mg/dL (9-23); Calcium 8.8 mg/dL (8.7-10.4); Carbon Dioxide 18 mmol/L (20-30); Chloride 109 mmol/L (98-107); Glucose 101 mg/dL (74-106); Potassium 3.3 mmol/L (3.5-5.1); Sodium 135 mmol/L (136-145)
[2023-12-29 04:50] LABS: Albumin 2.4 g/dL (3.2-4.8); Bilirubin, Total < 0.2 mg/dL (0.2-1.0)
[2023-12-29 04:51] LABS: Aspartate Aminotransferase 31 U/L (13-40)
[2023-12-29 08:18] LABS: Base Excess -6.2 mmol/L (-2.0-2.0)
[2023-12-29] MEDS: MAGNESIUM SULFATE 1GM/100ML 100 ML IV SCH (12:00)
[2023-12-29] MEDS: POTASSIUM CHL 20MEQ/100ML 100 ML IV SCH (12:30)
[2023-12-29] MEDS ORDERED: DEXTROSE (50%) 50ML SYRG IV PRN (12:45)
[2023-12-29] MEDS ORDERED: POTASSIUM CHLORIDE 20 MEQ, LIDOCAINE 1% (LOCAL ANESTH.) 2 ML in SODIUM CHL 0.9% 100 ML IV ONE (13:15)
[2023-12-29] MEDS: InsuLIN REG 1unit/0.01ml Soln (100units/ml) SC SCH (18:00)
[2023-12-29] MEDS: ACCU-CHEK COMFORT CURVE STRIP VI SCH (18:00)
[2023-12-29 20:16] LABS: Base Excess -5.6 mmol/L (-2.0-2.0)
[2023-12-30] VITALS (94 sets, daily range): BP systolic 121–200; BP diastolic 51–88; PULSE 68–112; RESP 11–25; TEMP 97.3–99.1; O2SAT 82–99
[2023-12-30 03:56] LABS: Basophils # (auto) 0 10 ^3/uL (0-0.2); Eosinophils # (auto) 0.3 10 ^3/uL (0-0.8); Eosinophils % (auto) 5.7 % (0.0-7.0); Hemoglobin 8.4 g/dL (13.5-17.5); Lymphocytes # (auto) 0.9 10 ^3/uL (0.4-5.4); Monocytes # (auto) 0.4 10 ^3/uL (0-1.3); Nucleated Red Blood Cells % 0.1 %; White Blood Cell 4.5 10^3/uL (4.4-10.8)
[2023-12-30 03:59] LABS: Basophils % (auto) 0.7 % (0.0-2.0); Hematocrit 24.7 % (41.0-53.0); Lymphocytes % (auto) 20.7 % (10.0-50.0); Mean Corpuscular Hemoglobin 31.5 pg (28.0-32.0); Mean Corpuscular Hgb Conc. 34.1 g/dL (32.0-36.0); Mean Corpuscular Volume 92.4 fL (80.0-100.0); Monocytes % (auto) 9.4 % (0.0-12.0); Neutrophils # (auto) 2.8 10 ^3/uL (1.6-8.6); Neutrophils % (auto) 63.5 % (37.0-80.0); Red Blood Cells 2.67 10^6/uL (4.5-5.90); Red Cell Distribution Width 15.8 % (11.8-14.3)
[2023-12-30 04:07] LABS: Chloride 113 mmol/L (98-107); Potassium 3.7 mmol/L (3.5-5.1); Sodium 140 mmol/L (136-145)
[2023-12-30 04:08] LABS: Anion Gap 7 (5-15); Carbon Dioxide 20 mmol/L (20-30)
[2023-12-30 04:09] LABS: Calcium 8.8 mg/dL (8.5-10.1)
[2023-12-30 04:13] LABS: Glucose 84 mg/dL (74-106)
[2023-12-30 04:14] LABS: BUN/Creatinine Ratio 20.2 (10.0-20.0); Blood Urea Nitrogen 66 mg/dL (9-23); Magnesium 2.2 mg/dL (1.6-2.6)
[2023-12-30 07:26] LABS: Base Excess -6.1 mmol/L (-2.0-2.0)
[2023-12-30] MEDS: METOPROLOL TARTRATE 25 MG TAB PO ONE (12:31)
[2023-12-30] MEDS: hydrALAZINE HCL 25 MG TAB PO ONE (12:32)
[2023-12-30] MEDS: ENOXAPARIN SOD 80 MG/0.8ML SYRINGE SC ONE (17:56)
[2023-12-30] MEDS ORDERED: FURO1TAB33 PO (20:17)
[2023-12-30] MEDS ORDERED: MORP15TA PO (20:17)
[2023-12-30] MEDS ORDERED: FAMO-12 PO (20:17)
[2023-12-30] MEDS ORDERED: LORA-1120 PO (20:17)
[2023-12-30] MEDS ORDERED: CLON0.1T PO (20:17)
[2023-12-30] MEDS ORDERED: GABA-1250 PO (20:17)
[2023-12-30] MEDS ORDERED: SERT25TA84 PO (20:17)
[2023-12-30] MEDS ORDERED: BISA10SU45 PO (20:17)
[2023-12-30] MEDS ORDERED: PED1DRO5 PO (20:17)
[2023-12-30] MEDS ORDERED: HYDR-4902 PO (20:17)
[2023-12-30] MEDS: DOCUSATE ORAL LIQUID 100 MG/10 ML UD GT ONE (20:35)
[2023-12-30] MEDS: hydrALAZINE HCL 25 MG TAB PO SCH (21:27)
[2023-12-30] MEDS: METOPROLOL TARTRATE 25 MG TAB PO SCH (21:27)
[2023-12-30] MEDS: amLODIPine BESYLATE 5 MG TAB PO ONE (21:37)
[2023-12-30] MEDS ORDERED: hydrALAZINE HCL 25 MG TAB PO SCH (22:00)
[2023-12-31] VITALS (100 sets, daily range): BP systolic 115–199; BP diastolic 51–94; PULSE 76–106; RESP 10–21; TEMP 97.3–99; O2SAT 91–100
[2023-12-31 04:00] LABS: Basophils # (auto) 0 10 ^3/uL (0-0.2); Basophils % (auto) 0.5 % (0.0-2.0); Eosinophils # (auto) 0.2 10 ^3/uL (0-0.8); Eosinophils % (auto) 4.2 % (0.0-7.0); Hematocrit 27.4 % (41.0-53.0); Hemoglobin 9.2 g/dL (13.5-17.5); Lymphocytes # (auto) 0.8 10 ^3/uL (0.4-5.4); Lymphocytes % (auto) 17.6 % (10.0-50.0); Mean Corpuscular Hemoglobin 31.3 pg (28.0-32.0); Mean Corpuscular Hgb Conc. 33.6 g/dL (32.0-36.0); Mean Corpuscular Volume 93.2 fL (80.0-100.0); Monocytes # (auto) 0.4 10 ^3/uL (0-1.3); Monocytes % (auto) 7.9 % (0.0-12.0); Neutrophils # (auto) 3.3 10 ^3/uL (1.6-8.6); Neutrophils % (auto) 69.8 % (37.0-80.0); Red Blood Cells 2.94 10^6/uL (4.5-5.90); Red Cell Distribution Width 16.1 % (11.8-14.3); White Blood Cell 4.7 10^3/uL (4.4-10.8)
[2023-12-31 04:04] LABS: Alanine Aminotransferase 19 U/L (7-40); Albumin 2.6 g/dL (3.2-4.8); Alkaline Phosphatase 73 U/L (46-116); Anion Gap 9 (5-15); Aspartate Aminotransferase 23 U/L (13-40); BUN/Creatinine Ratio 22.1 (10.0-20.0); Blood Urea Nitrogen 66 mg/dL (9-23); Calcium 9.1 mg/dL (8.7-10.4); Carbon Dioxide 20 mmol/L (20-30); Chloride 112 mmol/L (98-107); Glucose 97 mg/dL (74-106); Potassium 3.6 mmol/L (3.5-5.1); Sodium 141 mmol/L (136-145)
[2023-12-31 04:05] LABS: Bilirubin, Total 0.3 mg/dL (0.2-1.0); Total Protein 5.7 g/dL (5.7-8.2)
[2023-12-31 08:46] LABS: Base Excess -6.7 mmol/L (-2.0-2.0)
[2023-12-31] MEDS ORDERED: ALBUTEROL SULF 2.5 MG/0.5ML(0.5%) NEB SOLN NEB PRN (09:45)
[2023-12-31] MEDS: DOCUSATE ORAL LIQUID 100 MG/10 ML UD GT SCH (10:14)
[2023-12-31] MEDS: ENOXAPARIN SOD 80 MG/0.8ML SYRINGE SC SCH (10:16)
[2023-12-31] MEDS: amLODIPine BESYLATE 5 MG TAB PO SCH (10:16)
[2023-12-31] MEDS: GLYCOPYRROLATE 0.2 MG/ML 1ML VIAL IV SCH (17:57)
[2023-12-31] MEDS: cloNIDine 0.3 mg/24hr 7DAY PATCH TD SCH (17:58)
[2023-12-31] MEDS: METOPROLOL TARTRATE 25 MG TAB PO SCH (22:31)
[2024-01-01] VITALS (111 sets, daily range): BP systolic 113–164; BP diastolic 49–95; PULSE 67–105; RESP 12–20; TEMP 97.2–98.8; O2SAT 89–100
[2024-01-01 04:09] LABS: Basophils # (auto) 0.1 10 ^3/uL (0-0.2); Basophils % (auto) 1.8 % (0.0-2.0); Eosinophils # (auto) 0.2 10 ^3/uL (0-0.8); Eosinophils % (auto) 4.4 % (0.0-7.0); Hematocrit 27.6 % (41.0-53.0); Hemoglobin 8.9 g/dL (13.5-17.5); Lymphocytes # (auto) 0.9 10 ^3/uL (0.4-5.4); Lymphocytes % (auto) 20.3 % (10.0-50.0); Mean Corpuscular Hemoglobin 30.3 pg (28.0-32.0); Mean Corpuscular Hgb Conc. 32.2 g/dL (32.0-36.0); Mean Corpuscular Volume 94.1 fL (80.0-100.0); Monocytes # (auto) 0.4 10 ^3/uL (0-1.3); Monocytes % (auto) 8.3 % (0.0-12.0); Neutrophils % (auto) 65.2 % (37.0-80.0); Nucleated Red Blood Cells % 0.1 %; Red Blood Cells 2.93 10^6/uL (4.5-5.90); Red Cell Distribution Width 16.4 % (11.8-14.3); White Blood Cell 4.6 10^3/uL (4.4-10.8)
[2024-01-01 04:20] LABS: Chloride 113 mmol/L (98-107); Potassium 3.5 mmol/L (3.5-5.1); Sodium 142 mmol/L (136-145)
[2024-01-01 04:21] LABS: Anion Gap 9 (5-15); Carbon Dioxide 20 mmol/L (20-30)
[2024-01-01 04:26] LABS: Blood Urea Nitrogen 58 mg/dL (9-23); Glucose 94 mg/dL (74-106)
[2024-01-01] MEDS: hydrALAZINE HCL 25 MG TAB PO SCH (12:19)
[2024-01-02] VITALS (116 sets, daily range): BP systolic 118–162; BP diastolic 46–74; PULSE 43–110; RESP 13–21; TEMP 97.2–98.8; O2SAT 85–100
[2024-01-02 04:17] LABS: Chloride 116 mmol/L (98-107); Potassium 3.3 mmol/L (3.5-5.1); Sodium 144 mmol/L (136-145)
[2024-01-02 04:18] LABS: Anion Gap 6 (5-15); Calcium 8.7 mg/dL (8.5-10.1); Carbon Dioxide 22 mmol/L (20-30)
[2024-01-02 04:23] LABS: BUN/Creatinine Ratio 20.1 (10.0-20.0); Blood Urea Nitrogen 53 mg/dL (9-23); Glucose 104 mg/dL (74-106)
[2024-01-02] MEDS: ALBUMIN 25% 100 ML IV SCH (14:03)
[2024-01-02] MEDS ORDERED: BUMETANIDE 2.5mg/10ml (0.25 mg/ml) INJ IV ONE (15:00)
[2024-01-02] MEDS: BUMETANIDE 2.5mg/10ml (0.25 mg/ml) INJ IV ONE (15:30)
[2024-01-03] VITALS (102 sets, daily range): BP systolic 98–168; BP diastolic 43–78; PULSE 70–114; RESP 14–100; TEMP 98.1–99; O2SAT 90–100
[2024-01-03 04:32] LABS: Anion Gap 7 (5-15); Carbon Dioxide 21 mmol/L (20-30); Chloride 118 mmol/L (98-107); Potassium 3.3 mmol/L (3.5-5.1); Sodium 146 mmol/L (136-145)
[2024-01-03 04:33] LABS: Calcium 8.8 mg/dL (8.5-10.1)
[2024-01-03 04:38] LABS: BUN/Creatinine Ratio 19.6 (10.0-20.0); Blood Urea Nitrogen 51 mg/dL (9-23); Glucose 101 mg/dL (74-106)
[2024-01-03] MEDS: MAGNESIUM SULFATE 1GM/100ML 100 ML IV SCH (14:42)
[2024-01-03] MEDS: POTASSIUM CHL 20MEQ/100ML 100 ML IV SCH (14:43)
[2024-01-03] MEDS: ACCU-CHEK COMFORT CURVE STRIP VI SCH (22:16)
[2024-01-04] VITALS (66 sets, daily range): BP systolic 91–172; BP diastolic 50–84; PULSE 64–157; RESP 15–77; TEMP 98.1–99.9; O2SAT 91–100
[2024-01-04 04:42] LABS: Chloride 115 mmol/L (98-107); Potassium 3.9 mmol/L (3.5-5.1); Sodium 144 mmol/L (136-145)
[2024-01-04 04:43] LABS: Anion Gap 7 (5-15); Calcium 8.9 mg/dL (8.7-10.4); Carbon Dioxide 22 mmol/L (20-30)
[2024-01-04 04:48] LABS: BUN/Creatinine Ratio 24.3 (10.0-20.0); Blood Urea Nitrogen 60 mg/dL (9-23); Glucose 92 mg/dL (74-106)
[2024-01-04] MEDS: POLYETHYLENE GLYCOL 17 GM PWDR PO ONE (16:37)
[2024-01-04] MEDS: DOCUSATE ORAL LIQUID 100 MG/10 ML UD PO SCH (22:31)
[2024-01-05] VITALS (43 sets, daily range): BP systolic 93–132; BP diastolic 51–76; PULSE 61–76; RESP 13–21; TEMP 97.3–99.5; O2SAT 90–100
[2024-01-05 04:27] LABS: Anion Gap 7 (5-15); Carbon Dioxide 21 mmol/L (20-30); Chloride 111 mmol/L (98-107); Potassium 4.1 mmol/L (3.5-5.1); Sodium 139 mmol/L (136-145)
[2024-01-05 04:28] LABS: Calcium 8.6 mg/dL (8.7-10.4)
[2024-01-05 04:33] LABS: BUN/Creatinine Ratio 24.3 (10.0-20.0); Blood Urea Nitrogen 61 mg/dL (9-23); Glucose 93 mg/dL (74-106)
[2024-01-05 07:38] LABS: Hematocrit 22.2 % (41.0-53.0); Hemoglobin 7.3 g/dL (13.5-17.5); Mean Corpuscular Hemoglobin 31.3 pg (28.0-32.0); Mean Corpuscular Hgb Conc. 32.8 g/dL (32.0-36.0); Mean Corpuscular Volume 95.5 fL (80.0-100.0); Red Blood Cells 2.32 10^6/uL (4.5-5.90); Red Cell Distribution Width 16.5 % (11.8-14.3); White Blood Cell 4.6 10^3/uL (4.4-10.8)
[2024-01-05 07:39] LABS: Band Neutrophils % (manual) 0; Basophils % (manual) 0 (0.0-2.0); Blast Cells 0; Metamyelocytes % 0; Myelocytes % 0; Promyelocytes % 0; Reactive Lymphocytes 0
[2024-01-05 08:22] LABS: Eosinophils % (manual) 5 (0-7); Lymphocytes % (manual) 22 (10.0-50.0); Monocytes % (manual) 1 (0-12)
[2024-01-05 08:23] LABS: Platelet Estimate Decreased
[2024-01-05] MEDS ORDERED: POLYETHYLENE GLYCOL 17 GM PWDR PO PRN (10:00)
[2024-01-05] MEDS: APIXABAN 2.5 MG TAB PO SCH (21:38)
[2024-01-06] VITALS (39 sets, daily range): BP systolic 94–144; BP diastolic 54–85; PULSE 65–77; RESP 13–23; TEMP 98.6–99.9; O2SAT 90–100
[2024-01-06 05:52] LABS: Basophils # (auto) 0 10 ^3/uL (0-0.2); Basophils % (auto) 0.6 % (0.0-2.0); Eosinophils # (auto) 0.4 10 ^3/uL (0-0.8); Monocytes # (auto) 0.4 10 ^3/uL (0-1.3)
[2024-01-06 05:55] LABS: Hematocrit 20.4 % (41.0-53.0); Lymphocytes # (auto) 1.1 10 ^3/uL (0.4-5.4); Lymphocytes % (auto) 28.7 % (10.0-50.0); Mean Corpuscular Hgb Conc. 33.7 g/dL (32.0-36.0); Mean Corpuscular Volume 94.9 fL (80.0-100.0); Monocytes % (auto) 8.9 % (0.0-12.0); Neutrophils % (auto) 51.8 % (37.0-80.0); Red Blood Cells 2.15 10^6/uL (4.5-5.90); Red Cell Distribution Width 16.4 % (11.8-14.3)
[2024-01-06 06:34] LABS: Anion Gap 6 (5-15); Carbon Dioxide 22 mmol/L (20-30); Chloride 110 mmol/L (98-107); Potassium 3.9 mmol/L (3.5-5.1); Sodium 138 mmol/L (136-145)
[2024-01-06 06:35] LABS: Calcium 8.7 mg/dL (8.5-10.1)
[2024-01-06 06:40] LABS: BUN/Creatinine Ratio 24.5 (10.0-20.0); Blood Urea Nitrogen 63 mg/dL (9-23); Glucose 88 mg/dL (74-106)
[2024-01-06 06:57] LABS: Hemoglobin 6.9 g/dL (13.5-17.5)
[2024-01-06] MEDS: ALBUMIN 25% 50 ML IV SCH (15:56)
[2024-01-06] MEDS: FUROSEMIDE INJECTION 100 MG in SODIUM CHL 0.9% 100 ML IV SCH (16:00)
[2024-01-07] VITALS (43 sets, daily range): BP systolic 95–141; BP diastolic 53–82; PULSE 63–75; RESP 14–22; TEMP 98.4–99.5; O2SAT 90–100
[2024-01-07] MEDS: ACETYLCYSTEINE 10 %(100MG/ML) SOL 4ML NEB SCH ×2 (00:01→20:00)
[2024-01-07 05:03] LABS: Basophils # (auto) 0 10 ^3/uL (0-0.2); Basophils % (auto) 0.4 % (0.0-2.0); Eosinophils # (auto) 0.3 10 ^3/uL (0-0.8); Eosinophils % (auto) 8.2 % (0.0-7.0); Hemoglobin 7.6 g/dL (13.5-17.5); Lymphocytes # (auto) 1.2 10 ^3/uL (0.4-5.4); Lymphocytes % (auto) 29.1 % (10.0-50.0); Mean Corpuscular Hemoglobin 31.1 pg (28.0-32.0); Mean Corpuscular Hgb Conc. 33.2 g/dL (32.0-36.0); Mean Corpuscular Volume 93.6 fL (80.0-100.0); Monocytes # (auto) 0.4 10 ^3/uL (0-1.3); Neutrophils # (auto) 2.1 10 ^3/uL (1.6-8.6); Neutrophils % (auto) 52.3 % (37.0-80.0); Red Blood Cells 2.46 10^6/uL (4.5-5.90); Red Cell Distribution Width 15.9 % (11.8-14.3); White Blood Cell 4.1 10^3/uL (4.4-10.8)
[2024-01-07 05:11] LABS: Anion Gap 5 (5-15); Carbon Dioxide 24 mmol/L (20-30); Chloride 109 mmol/L (98-107); Potassium 3.8 mmol/L (3.5-5.1); Sodium 138 mmol/L (136-145)
[2024-01-07 05:12] LABS: Calcium 8.7 mg/dL (8.5-10.1)
[2024-01-07 05:17] LABS: BUN/Creatinine Ratio 24.6 (10.0-20.0); Blood Urea Nitrogen 65 mg/dL (9-23); Glucose 89 mg/dL (74-106)
[2024-01-07] MEDS: POTASSIUM EFFERVESENT TAB 25 MEQ PO ONE (11:08)
[2024-01-07] MEDS: EPOETIN ALFA-EPBX 10,000 UNIT/1ML VIAL SC ONE (14:48)
[2024-01-07] MEDS: IPRATROPIUM BROM 0.5 MG/2.5ML INH SOL NEB SCH (16:00)
[2024-01-07] MEDS: ALBUTEROL SULF 2.5 MG/0.5ML(0.5%) NEB SOLN NEB SCH (16:00)
[2024-01-07] MEDS ORDERED: ACETYLCYSTEINE 10 %(100MG/ML) SOL 4ML NEB SCH (20:00)
[2024-01-08] VITALS (23 sets, daily range): BP systolic 105–161; BP diastolic 54–71; PULSE 65–96; RESP 16–22; TEMP 97.5–99; O2SAT 92–100
[2024-01-08 05:58] LABS: Alanine Aminotransferase 15 U/L (7-40); Albumin 2.6 g/dL (3.2-4.8); Alkaline Phosphatase 65 U/L (46-116); Anion Gap 6 (5-15); Aspartate Aminotransferase 21 U/L (13-40); BUN/Creatinine Ratio 23.4 (10.0-20.0); Blood Urea Nitrogen 64 mg/dL (9-23); Calcium 8.7 mg/dL (8.5-10.1); Carbon Dioxide 23 mmol/L (20-30); Chloride 108 mmol/L (98-107); Glucose 90 mg/dL (74-106); Potassium 3.9 mmol/L (3.5-5.1); Sodium 137 mmol/L (136-145)
[2024-01-08 05:59] LABS: Bilirubin, Total 0.3 mg/dL (0.2-1.0); Total Protein 5.2 g/dL (5.7-8.2)
[2024-01-08 06:21] LABS: Basophils # (auto) 0 10 ^3/uL (0-0.2); Basophils % (auto) 0.7 % (0.0-2.0); Eosinophils # (auto) 0.3 10 ^3/uL (0-0.8); Eosinophils % (auto) 8.6 % (0.0-7.0); Hematocrit 22.8 % (41.0-53.0); Hemoglobin 7.7 g/dL (13.5-17.5); Lymphocytes # (auto) 1.1 10 ^3/uL (0.4-5.4); Lymphocytes % (auto) 31.5 % (10.0-50.0); Mean Corpuscular Hemoglobin 31.7 pg (28.0-32.0); Mean Corpuscular Volume 93.3 fL (80.0-100.0); Monocytes # (auto) 0.4 10 ^3/uL (0-1.3); Monocytes % (auto) 10.1 % (0.0-12.0); Neutrophils # (auto) 1.8 10 ^3/uL (1.6-8.6); Neutrophils % (auto) 49.1 % (37.0-80.0); Nucleated Red Blood Cells % 0.2 %; Red Blood Cells 2.44 10^6/uL (4.5-5.90); White Blood Cell 3.6 10^3/uL (4.4-10.8)
[2024-01-09] VITALS (14 sets, daily range): BP systolic 125–148; BP diastolic 48–83; PULSE 57–89; RESP 16–19; TEMP 97.3–98.2; O2SAT 93–100
[2024-01-09] MEDS: BUMETANIDE 2.5mg/10ml (0.25 mg/ml) INJ IV SCH (10:56)
== END 2024-01-09 20:41 | disposition home health service (06) | DRG 682 ==
LOC: ER 17:42 → EDBD 17:42 → TELE 12-21 00:29 → TELE-EAST 12-21 18:46 → ICU WEST 12-26 15:34 → ICU CENTRL 01-05 04:33 → DOU IN ICU 01-05 10:10 → TELE-EAST 01-08 00:05
PROVIDERS: ADMIT Internal Medicine; ATTEND Internal Medicine
PROC: 30233N1 Transfusion of Nonautologous Red Blood Cells into Peripheral Vein, Percutaneous Approach (ICD-10-PCS; 2023-12-21)
PROC: 0BH17EZ Insertion of Endotracheal Airway into Trachea, Via Natural or Artificial Opening (ICD-10-PCS; principal; 2023-12-26)
PROC: 5A1955Z Respiratory Ventilation, Greater than 96 Consecutive Hours (ICD-10-PCS; 2023-12-26)
PROC: 05H933Z Insertion of Infusion Device into Right Brachial Vein, Percutaneous Approach (ICD-10-PCS; 2023-12-26)
PROC: B54MZZA Ultrasonography of Right Upper Extremity Veins, Guidance (ICD-10-PCS; 2023-12-26)
PROC: 0B9D8ZX Drainage of Right Middle Lung Lobe, Via Natural or Artificial Opening Endoscopic, Diagnostic (ICD-10-PCS; 2023-12-27)
PROC: 02HV33Z Insertion of Infusion Device into Superior Vena Cava, Percutaneous Approach (ICD-10-PCS; 2023-12-28)
PROC: B548ZZA Ultrasonography of Superior Vena Cava, Guidance (ICD-10-PCS; 2023-12-28)
DX: N17.9 Acute kidney failure, unspecified (principal); G93.41 Metabolic encephalopathy; J69.0 Pneumonitis due to inhalation of food and vomit; J96.01 Acute respiratory failure with hypoxia; J96.02 Acute respiratory failure with hypercapnia; I50.33 Acute on chronic diastolic (congestive) heart failure; I48.20 Chronic atrial fibrillation, unspecified; I13.0 Hypertensive heart and chronic kidney disease with heart failure and stage 1 through stage 4 chronic kidney disease, or unspecified chronic kidney disease; E87.20 Acidosis, unspecified; J44.0 Chronic obstructive pulmonary disease with (acute) lower respiratory infection; N18.4 Chronic kidney disease, stage 4 (severe); E03.9 Hypothyroidism, unspecified; K74.60 Unspecified cirrhosis of liver; I95.9 Hypotension, unspecified; E87.6 Hypokalemia; I73.9 Peripheral vascular disease, unspecified; K80.20 Calculus of gallbladder without cholecystitis without obstruction; I16.0 Hypertensive urgency; L89.159 Pressure ulcer of sacral region, unspecified stage; D63.1 Anemia in chronic kidney disease; E78.00 Pure hypercholesterolemia, unspecified; E83.42 Hypomagnesemia; B19.20 Unspecified viral hepatitis C without hepatic coma; Z74.01 Bed confinement status; Z79.899 Other long term (current) drug therapy; Z87.891 Personal history of nicotine dependence; Z86.73 Personal history of transient ischemic attack (TIA), and cerebral infarction without residual deficits; Z89.611 Acquired absence of right leg above knee; Z79.01 Long term (current) use of anticoagulants; Z82.3 Family history of stroke; Z93.3 Colostomy status
CPT/HCPCS: 31500; 31624; 31720; 36415; 36430; 36569; 36600; 70450; 71045; 74176; 80048; 80053; 80074; 81001; 82040; 82270; 82306; 82570; 82805; 82962; 83735; 83880; 83970; 84100; 84156; 84300; 84484; 85007; 85014; 85018; 85025; 85027; 85610; 85730; 86850; 86900; 86901; 86920; 87040; 87070; 87077; 87081; 87186; 87205; 87340; 92610; 93970; 94002; 94003; 94640; 94668; 97110; 97163; 97530; C9113; G0378; J0330; J1815; J2001; J2185; J2704; J3480; J7060; P9047

== ENCOUNTER 2024-01-16 17:51 | Inpatient (IN) | payer OTHER, MEDICAID ==
[~2024-01-16] VITALS: Ht 190.5 cm; Wt 75.7 kg
[~2024-01-16 17:51] MED LIST changes: -BENA5TAB9 PO; +BISA10SU45 PO; +CLON0.1T PO; -DORZ2SOL18; +FAMO-12 PO; +FURO1TAB33 PO; -FURO20TA3 PO; +GABA-1250 PO; +HYDR-4902 PO; +LORA-1120 PO; +MORP15TA PO; +PED1DRO5 PO; -PRED1SUS4; -PRIM50TA5 PO; +SERT25TA84 PO; -SODI1SOL4 EACHEYE; -[UNRECOGNIZED DRUG - CODE] PO
[2024-01-16 18:45] VITALS: PULSE 58; RESP 13; O2SAT 94
[2024-01-16 19:30] VITALS: PULSE 54; RESP 12; O2SAT 96
[2024-01-16 19:49] LABS: Basophils # (auto) 0 10 ^3/uL (0-0.2); Hemoglobin 7.1 g/dL (13.5-17.5); Lymphocytes # (auto) 0.8 10 ^3/uL (0.4-5.4); Monocytes # (auto) 0.3 10 ^3/uL (0-1.3); Neutrophils # (auto) 1.7 10 ^3/uL (1.6-8.6); Nucleated Red Blood Cells % 0.1 %; White Blood Cell 2.9 10^3/uL (4.4-10.8)
[2024-01-16 19:52] LABS: Eosinophils # (auto) 0 10 ^3/uL (0-0.8); Eosinophils % (auto) 1.5 % (0.0-7.0); Mean Corpuscular Hemoglobin 31.4 pg (28.0-32.0); Mean Corpuscular Hgb Conc. 32.2 g/dL (32.0-36.0); Mean Corpuscular Volume 97.6 fL (80.0-100.0); Monocytes % (auto) 10.9 % (0.0-12.0); Neutrophils % (auto) 58.6 % (37.0-80.0); Red Blood Cells 2.26 10^6/uL (4.5-5.90); Red Cell Distribution Width 16.4 % (11.8-14.3)
[2024-01-16 20:06] LABS: Alanine Aminotransferase 13 U/L (7-40); Albumin 2.6 g/dL (3.2-4.8); Alkaline Phosphatase 73 U/L (46-116); Anion Gap 4 (5-15); Aspartate Aminotransferase 18 U/L (13-40); BUN/Creatinine Ratio 22.4 (10.0-20.0); Bilirubin, Total 0.2 mg/dL (0.2-1.0); Blood Alcohol < 3.0 mg/dL (<10); Blood Urea Nitrogen 77 mg/dL (9-23); Calcium 8.8 mg/dL (8.5-10.1); Carbon Dioxide 24 mmol/L (20-30); Chloride 113 mmol/L (98-107); Glucose 96 mg/dL (74-106); Magnesium 1.8 mg/dL (1.6-2.6); Potassium 4.7 mmol/L (3.5-5.1); Sodium 141 mmol/L (136-145); Total Protein 5.3 g/dL (5.7-8.2)
[2024-01-16] MEDS ORDERED: ONDANSETRON HCL 4 MG/2 ML VIAL IV PRN (22:15)
[2024-01-16] MEDS ORDERED: ACETAMINOPHEN 325 MG TAB PO PRN (22:15)
[2024-01-16] MEDS: cefTRIAXone 1GM/50ML D5W 50 ML IV ONE (22:23)
[2024-01-16] MEDS: FUROSEMIDE 40 MG/4 ML VIAL IV ONE (22:24)
[2024-01-16] MEDS: AZITHROMYCIN 500MG/ 250ML 250 ML IV ONE (22:25)
[2024-01-16] MEDS: HYDROcodone-ACET 5/325MG TAB PO PRN (22:35)
[2024-01-16 22:58] LABS: % Iron Saturation 18.8 % (20-55)
[2024-01-16 23:12] LABS: INR 1.13 (0.9-1.15); Prothrombin Time 11.9 sec (9.3-11.8)
[2024-01-17] VITALS (15 sets, daily range): BP systolic 163–183; BP diastolic 67–82; PULSE 56–70; RESP 16–20; TEMP 96.3–97.9; O2SAT 20–100
[2024-01-17] MEDS: hydrALAZINE HCL 20 MG/ML VL IV PRN (01:14)
[2024-01-17 05:55] LABS: Basophils # (auto) 0 10 ^3/uL (0-0.2); Eosinophils # (auto) 0.2 10 ^3/uL (0-0.8); Hemoglobin 8.3 g/dL (13.5-17.5); Neutrophils # (auto) 1.9 10 ^3/uL (1.6-8.6); Nucleated Red Blood Cells % 0.1 %
[2024-01-17 05:59] LABS: Basophils % (auto) 1.2 % (0.0-2.0); Hematocrit 24.9 % (41.0-53.0); Lymphocytes % (auto) 27.5 % (10.0-50.0); Mean Corpuscular Hgb Conc. 33.3 g/dL (32.0-36.0); Monocytes # (auto) 0.4 10 ^3/uL (0-1.3); Neutrophils % (auto) 53.3 % (37.0-80.0); Red Blood Cells 2.59 10^6/uL (4.5-5.90); Red Cell Distribution Width 16.2 % (11.8-14.3); White Blood Cell 3.5 10^3/uL (4.4-10.8)
[2024-01-17 06:14] LABS: Calcium 9.3 mg/dL (8.7-10.4); Chloride 112 mmol/L (98-107); Potassium 4.4 mmol/L (3.5-5.1); Sodium 142 mmol/L (136-145)
[2024-01-17 06:15] LABS: Anion Gap 6 (5-15); Carbon Dioxide 24 mmol/L (20-30)
[2024-01-17 06:19] LABS: Glucose 95 mg/dL (74-106)
[2024-01-17 06:20] LABS: BUN/Creatinine Ratio 19.1 (10.0-20.0)
[2024-01-17 06:33] LABS: Blood Urea Nitrogen 66 mg/dL (9-23)
[2024-01-17] MEDS: PANTOPRAZOLE 40 MG/10 ML VIAL INJ IV SCH (09:04)
[2024-01-17] MEDS: BUMETANIDE 2.5mg/10ml (0.25 mg/ml) INJ IV SCH (12:20)
[2024-01-17 12:45] LABS: Magnesium 1.9 mg/dL (1.6-2.6)
[2024-01-17 12:47] LABS: Phosphorus 4.8 mg/dL (2.4-5.1)
[2024-01-17] MEDS: GABAPENTIN 400 MG CAP PO SCH (14:00)
[2024-01-17] MEDS: BUMETANIDE INJECTION 12.5 MG in GIVE UN-DILUTED 0 ML IV SCH (15:53)
[2024-01-17] MEDS: ALBUTEROL SULF 2.5 MG/0.5ML(0.5%) NEB SOLN NEB PRN (15:57)
[2024-01-17 17:08] LABS: Sodium Urine 99 mmol/L (40-220); Urine Bacteria MANY /hpf (None Seen); Urine Blood 1+ /uL (Negative); Urine Budding Yeast MANY /hpf (None Seen); Urine Clarity Ex.Turbid (Clear); Urine Color Colorless (Yellow); Urine Mucus FEW (None Seen); Urine Protein, UAD 2+ (Negative); Urine Urobilinogen Normal (Negative); Urine WBC 325 /hpf (0 - 3); Urine WBC Clumps PRESENT /hpf (None Seen)
[2024-01-17 17:15] LABS: Amphetamine Screen, Urine Neg (NEGATIVE); Barbiturate Scree,Urine Neg (NEGATIVE); Benzodiazephine Screen, Urine Pos (NEGATIVE); Cocaine Screen, Urine Neg (NEGATIVE); Creatinine, Urine 28.64 mg/dL (30.0-125.0); Opiate Scree,Urine Neg (NEGATIVE)
[2024-01-17 17:16] LABS: Cannabinoid Screen, Urine Neg (NEGATIVE); Phencyclidine Screen, Urine Neg (NEGATIVE)
[2024-01-17 17:19] LABS: Protein, Urine 230.4 mg/dL (0.0-11.9); Urine Protein/Creatinine Ratio 8.04
[2024-01-17] MEDS: cefTRIAXone 1GM/50ML D5W 50 ML IV SCH (21:15)
[2024-01-17] MEDS: APIXABAN 2.5 MG TAB PO SCH (21:54)
[2024-01-17] MEDS: CARVEDILOL 3.125 MG TAB PO SCH (21:55)
[2024-01-18] VITALS (9 sets, daily range): BP systolic 143–173; BP diastolic 59–76; PULSE 54–119; RESP 16–22; TEMP 97.6–98.3; O2SAT 90–100
[2024-01-18] MEDS: cloNIDine HCL 0.1 MG TAB PO PRN (00:39)
[2024-01-18] MEDS: hydrALAZINE HCL 20 MG/ML VL IV ONE (03:19)
[2024-01-18] MEDS: LEVOTHYROXINE SODIUM 50 MCG TAB PO SCH (05:42)
[2024-01-18 06:33] LABS: Eosinophils # (auto) 0.3 10 ^3/uL (0-0.8); Eosinophils % (auto) 8.2 % (0.0-7.0); Hemoglobin 7.3 g/dL (13.5-17.5); Lymphocytes # (auto) 0.9 10 ^3/uL (0.4-5.4); White Blood Cell 3.8 10^3/uL (4.4-10.8)
[2024-01-18 06:37] LABS: Basophils # (auto) 0 10 ^3/uL (0-0.2); Basophils % (auto) 1.3 % (0.0-2.0); Mean Corpuscular Hemoglobin 31.8 pg (28.0-32.0); Mean Corpuscular Hgb Conc. 33.4 g/dL (32.0-36.0); Mean Corpuscular Volume 95.3 fL (80.0-100.0); Monocytes # (auto) 0.4 10 ^3/uL (0-1.3); Monocytes % (auto) 11.7 % (0.0-12.0); Neutrophils % (auto) 53.8 % (37.0-80.0); Nucleated Red Blood Cells % 0.2 %; Red Blood Cells 2.31 10^6/uL (4.5-5.90); Red Cell Distribution Width 16.2 % (11.8-14.3)
[2024-01-18 06:43] LABS: Alanine Aminotransferase 10 U/L (7-40); Albumin 2.6 g/dL (3.2-4.8); Alkaline Phosphatase 59 U/L (46-116); Anion Gap 6 (5-15); Aspartate Aminotransferase 18 U/L (13-40); BUN/Creatinine Ratio 20.7 (10.0-20.0); Blood Urea Nitrogen 69 mg/dL (9-23); Calcium 9.2 mg/dL (8.7-10.4); Carbon Dioxide 25 mmol/L (20-30); Chloride 112 mmol/L (98-107); Glucose 85 mg/dL (74-106); Potassium 4.3 mmol/L (3.5-5.1); Sodium 143 mmol/L (136-145)
[2024-01-18 06:44] LABS: Bilirubin, Total 0.2 mg/dL (0.2-1.0); Total Protein 5.6 g/dL (5.7-8.2)
[2024-01-18] MEDS: MEMANTINE HCL 5 MG TAB PO SCH (10:14)
[2024-01-18] MEDS: FAMOTIDINE 20 MG TAB PO SCH (10:16)
[2024-01-18] MEDS: amLODIPine BESYLATE 5 MG TAB PO SCH (10:16)
[2024-01-18] MEDS: SERTRALINE HCL 50 MG TAB PO SCH (10:17)
[2024-01-18] MEDS: ATORVASTATIN 20 MG TAB PO SCH (10:17)
[2024-01-19] VITALS (11 sets, daily range): BP systolic 139–161; BP diastolic 50–67; PULSE 57–68; RESP 18–20; TEMP 97.5–98.5; O2SAT 95–100
[2024-01-19 07:05] LABS: Basophils # (auto) 0 10 ^3/uL (0-0.2); Basophils % (auto) 1.1 % (0.0-2.0); Eosinophils # (auto) 0.2 10 ^3/uL (0-0.8); Eosinophils % (auto) 5.8 % (0.0-7.0); Hematocrit 22.2 % (41.0-53.0); Hemoglobin 7.3 g/dL (13.5-17.5); Lymphocytes # (auto) 1.2 10 ^3/uL (0.4-5.4); Lymphocytes % (auto) 33.2 % (10.0-50.0); Mean Corpuscular Hemoglobin 32.4 pg (28.0-32.0); Mean Corpuscular Volume 98.3 fL (80.0-100.0); Monocytes # (auto) 0.5 10 ^3/uL (0-1.3); Monocytes % (auto) 12.3 % (0.0-12.0); Neutrophils # (auto) 1.8 10 ^3/uL (1.6-8.6); Neutrophils % (auto) 47.6 % (37.0-80.0); Nucleated Red Blood Cells % 0.3 %; Red Blood Cells 2.25 10^6/uL (4.5-5.90); White Blood Cell 3.7 10^3/uL (4.4-10.8)
[2024-01-19 07:26] LABS: Albumin 2.4 g/dL (3.2-4.8); Alkaline Phosphatase 54 U/L (46-116); Anion Gap 7 (5-15); Aspartate Aminotransferase 19 U/L (13-40); Calcium 8.9 mg/dL (8.7-10.4); Carbon Dioxide 23 mmol/L (20-30); Chloride 112 mmol/L (98-107); Glucose 82 mg/dL (74-106); Potassium 4.4 mmol/L (3.5-5.1); Sodium 142 mmol/L (136-145)
[2024-01-19 07:27] LABS: Bilirubin, Total 0.2 mg/dL (0.2-1.0); Total Protein 5.3 g/dL (5.7-8.2)
[2024-01-19 07:32] LABS: Alanine Aminotransferase < 9 U/L (7-40); Blood Urea Nitrogen 52 mg/dL (9-23)
[2024-01-19 08:06] LABS: Immunoglobulin A 231 mg/dL (61-437); Immunoglobulin G, Serum 1780 mg/dL (603-1613); Immunoglobulin M 64 mg/dL (20-172)
[2024-01-20] VITALS (10 sets, daily range): BP systolic 105–171; BP diastolic 57–72; PULSE 58–86; RESP 15–20; TEMP 97.4–98.5; O2SAT 60–99
[2024-01-20 06:16] LABS: Alkaline Phosphatase 62 U/L (46-116); Anion Gap 5 (5-15); BUN/Creatinine Ratio 17.6 (10.0-20.0); Calcium 9.1 mg/dL (8.5-10.1); Carbon Dioxide 26 mmol/L (20-30); Chloride 111 mmol/L (98-107); Glucose 92 mg/dL (74-106); Potassium 3.9 mmol/L (3.5-5.1); Sodium 142 mmol/L (136-145)
[2024-01-20 06:17] LABS: Albumin 2.8 g/dL (3.2-4.8); Aspartate Aminotransferase 21 U/L (13-40); Bilirubin, Total 0.2 mg/dL (0.2-1.0); Total Protein 5.7 g/dL (5.7-8.2)
[2024-01-20 06:48] LABS: Alanine Aminotransferase < 9 U/L (7-40); Blood Urea Nitrogen 63 mg/dL (9-23)
[2024-01-21] VITALS (51 sets, daily range): BP systolic 74–199; BP diastolic 27–94; PULSE 55–105; RESP 13–28; TEMP 97.3–99.3; O2SAT 75–100
[2024-01-21] MEDS: FAMOTIDINE 20 MG TAB PO SCH (09:41)
[2024-01-21 10:47] LABS: Base Excess 1.1 mmol/L (-2.0-2.0)
[2024-01-21 11:48] LABS: Basophils # (auto) 0 10 ^3/uL (0-0.2); Basophils % (auto) 0.7 % (0.0-2.0); Eosinophils # (auto) 0.3 10 ^3/uL (0-0.8); Eosinophils % (auto) 4.6 % (0.0-7.0); Hematocrit 25.7 % (41.0-53.0); Hemoglobin 8.5 g/dL (13.5-17.5); Lymphocytes # (auto) 0.8 10 ^3/uL (0.4-5.4); Lymphocytes % (auto) 12.5 % (10.0-50.0); Mean Corpuscular Hemoglobin 31.5 pg (28.0-32.0); Mean Corpuscular Hgb Conc. 33.1 g/dL (32.0-36.0); Mean Corpuscular Volume 95.3 fL (80.0-100.0); Monocytes # (auto) 0.4 10 ^3/uL (0-1.3); Monocytes % (auto) 7.1 % (0.0-12.0); Neutrophils # (auto) 4.6 10 ^3/uL (1.6-8.6); Neutrophils % (auto) 75.1 % (37.0-80.0); Nucleated Red Blood Cells % 0.1 %; White Blood Cell 6.1 10^3/uL (4.4-10.8)
[2024-01-21 12:27] LABS: Alanine Aminotransferase 10 U/L (7-40); Albumin 3.1 g/dL (3.2-4.8); Alkaline Phosphatase 66 U/L (46-116); Anion Gap 10 (5-15); Aspartate Aminotransferase 24 U/L (13-40); Bilirubin, Total 0.2 mg/dL (0.2-1.0); Blood Urea Nitrogen 57 mg/dL (9-23); Calcium 9.4 mg/dL (8.7-10.4); Carbon Dioxide 25 mmol/L (20-30); Chloride 109 mmol/L (98-107); Glucose 93 mg/dL (74-106); Potassium 3.6 mmol/L (3.5-5.1); Sodium 144 mmol/L (136-145); Total Protein 6.6 g/dL (5.7-8.2)
[2024-01-21 16:26] LABS: INR 1.16 (0.9-1.15); Partial Thromboplastin Time 29.1 SEC (24.5-34.5); Prothrombin Time 12.2 sec (9.3-11.8)
[2024-01-21 17:27] LABS: Hepatitis C Antibody Reactive (Negative)
[2024-01-21] MEDS: PROPOFOL 100 ML IV SCH (18:50)
[2024-01-21] MEDS: fentaNYL Drip 2500mCg/250mlNS 250 ML IV SCH (18:50)
[2024-01-21] MEDS: NOREPINEPHRINE 8 MG/250ML KIT 250 ML IV SCH (19:51)
[2024-01-21] MEDS: ROCURONIUM 10MG/ML 10ML VIAL IV ONE ×2 (20:26→21:13)
[2024-01-21] MEDS: ETOMIDATE (2MG/ML) 20ML VIAL IV ONE (20:27)
[2024-01-21] MEDS: MIDAZOLAM DRIP 50 mg/50mL 50 ML IV ONE (20:45)
[2024-01-21 21:08] LABS: Base Excess 1.4 mmol/L (-2.0-2.0)
[2024-01-21 21:27] LABS: Body Fluid White Blood Cells 95 CUMM (0-200)
[2024-01-21 21:28] LABS: Body Fluid Polymorphonuclear 30 % (0-25); Body Fluid Red Blood Cells 648 CUMM (0-2000)
[2024-01-21] MEDS: MIDAZOLAM DRIP 50 mg/50mL 50 ML IV SCH (22:15)
[2024-01-21] MEDS: IPRATROPIUM BROM 0.5 MG/2.5ML INH SOL NEB SCH (23:45)
[2024-01-21] MEDS: ALBUTEROL SULF 2.5 MG/0.5ML(0.5%) NEB SOLN NEB SCH (23:45)
[2024-01-22] VITALS (103 sets, daily range): BP systolic 81–179; BP diastolic 37–69; PULSE 56–113; RESP 5–22; TEMP 96.5–98.4; O2SAT 92–100
[2024-01-22 01:55] LABS: Chloride 111 mmol/L (98-107); Potassium 3.1 mmol/L (3.5-5.1); Sodium 145 mmol/L (136-145)
[2024-01-22 01:56] LABS: Anion Gap 12 (5-15); Carbon Dioxide 22 mmol/L (20-30)
[2024-01-22 02:01] LABS: Blood Urea Nitrogen 60 mg/dL (9-23); Glucose 83 mg/dL (74-106)
[2024-01-22 02:13] LABS: Basophils # (auto) 0 10 ^3/uL (0-0.2); Eosinophils # (auto) 0 10 ^3/uL (0-0.8); Lymphocytes # (auto) 0.9 10 ^3/uL (0.4-5.4); Monocytes # (auto) 0.4 10 ^3/uL (0-1.3); Red Cell Distribution Width 16.1 % (11.8-14.3)
[2024-01-22 02:14] LABS: Eosinophils % (auto) 0.7 % (0.0-7.0); Hemoglobin 7.4 g/dL (13.5-17.5); Mean Corpuscular Hemoglobin 32.1 pg (28.0-32.0); Mean Corpuscular Hgb Conc. 33.5 g/dL (32.0-36.0); Mean Corpuscular Volume 95.8 fL (80.0-100.0); Monocytes % (auto) 8.8 % (0.0-12.0); Neutrophils % (auto) 68.5 % (37.0-80.0); Red Blood Cells 2.29 10^6/uL (4.5-5.90); White Blood Cell 4.3 10^3/uL (4.4-10.8)
[2024-01-22] MEDS: POTASSIUM EFFERVESENT TAB 25 MEQ GT ONE (03:03)
[2024-01-22 03:18] LABS: Base Excess -2.7 mmol/L (-2.0-2.0)
[2024-01-22 03:40] LABS: Hepatitis B Surface Antigen Negative (Negative)
[2024-01-22] MEDS: POTASSIUM CHL 20MEQ/100ML 100 ML IV SCH (09:31)
[2024-01-22] MEDS: MAGNESIUM SULFATE 1GM/100ML 100 ML IV SCH (14:39)
[2024-01-22 21:48] LABS: Body Fluid Polymorphonuclear 18 % (0-25); Body Fluid Red Blood Cells 8400 CUMM (0-2000); Body Fluid White Blood Cells 100 CUMM (0-200)
[2024-01-23] VITALS (108 sets, daily range): BP systolic 81–221; BP diastolic 33–78; PULSE 62–91; RESP 14–20; TEMP 98.1–98.2; O2SAT 96–100
[2024-01-23 03:50] LABS: Basophils # (auto) 0 10 ^3/uL (0-0.2); Basophils % (auto) 0.8 % (0.0-2.0); Eosinophils # (auto) 0.3 10 ^3/uL (0-0.8); Lymphocytes # (auto) 0.8 10 ^3/uL (0.4-5.4); Mean Corpuscular Volume 95.7 fL (80.0-100.0); Monocytes # (auto) 0.7 10 ^3/uL (0-1.3); Neutrophils # (auto) 4.4 10 ^3/uL (1.6-8.6); White Blood Cell 6.2 10^3/uL (4.4-10.8)
[2024-01-23 03:54] LABS: Eosinophils % (auto) 4.2 % (0.0-7.0); Hematocrit 24.7 % (41.0-53.0); Hemoglobin 8.2 g/dL (13.5-17.5); Lymphocytes % (auto) 13.2 % (10.0-50.0); Mean Corpuscular Hemoglobin 31.9 pg (28.0-32.0); Mean Corpuscular Hgb Conc. 33.3 g/dL (32.0-36.0); Monocytes % (auto) 10.6 % (0.0-12.0); Neutrophils % (auto) 71.2 % (37.0-80.0); Red Blood Cells 2.58 10^6/uL (4.5-5.90); Red Cell Distribution Width 16.6 % (11.8-14.3)
[2024-01-23 03:57] LABS: Calcium 9.4 mg/dL (8.7-10.4); Chloride 109 mmol/L (98-107); Potassium 4.6 mmol/L (3.5-5.1); Sodium 144 mmol/L (136-145)
[2024-01-23 03:58] LABS: Anion Gap 9 (5-15); Carbon Dioxide 26 mmol/L (20-30)
[2024-01-23 04:03] LABS: BUN/Creatinine Ratio 15.7 (10.0-20.0); Blood Urea Nitrogen 57 mg/dL (9-23); Glucose 77 mg/dL (74-106)
[2024-01-23 07:24] LABS: Base Excess -0.4 mmol/L (-2.0-2.0)
[2024-01-23 13:09] LABS: Albumin, Body Fluid 0.9 g/dL (Not Estab.); Protein, Body Fluid 1.7 g/dL (.)
[2024-01-24] VITALS (111 sets, daily range): BP systolic 95–195; BP diastolic 43–94; PULSE 64–108; RESP 16–20; TEMP 98–100; O2SAT 96–100
[2024-01-24 04:02] LABS: Basophils # (auto) 0 10 ^3/uL (0-0.2); Eosinophils # (auto) 0.3 10 ^3/uL (0-0.8); Hemoglobin 7.9 g/dL (13.5-17.5); Monocytes # (auto) 0.6 10 ^3/uL (0-1.3)
[2024-01-24 04:06] LABS: Basophils % (auto) 0.6 % (0.0-2.0); Eosinophils % (auto) 6.3 % (0.0-7.0); Hematocrit 23.5 % (41.0-53.0); Lymphocytes % (auto) 18.5 % (10.0-50.0); Mean Corpuscular Hemoglobin 32.3 pg (28.0-32.0); Mean Corpuscular Hgb Conc. 33.7 g/dL (32.0-36.0); Mean Corpuscular Volume 95.7 fL (80.0-100.0); Monocytes % (auto) 11.5 % (0.0-12.0); Neutrophils # (auto) 3.5 10 ^3/uL (1.6-8.6); Neutrophils % (auto) 63.1 % (37.0-80.0); Nucleated Red Blood Cells % 0.1 %; Red Blood Cells 2.45 10^6/uL (4.5-5.90); Red Cell Distribution Width 16.8 % (11.8-14.3); White Blood Cell 5.5 10^3/uL (4.4-10.8)
[2024-01-24 04:10] LABS: Chloride 111 mmol/L (98-107); Potassium 4.1 mmol/L (3.5-5.1); Sodium 144 mmol/L (136-145)
[2024-01-24 04:11] LABS: Anion Gap 9 (5-15); Calcium 9.3 mg/dL (8.5-10.1); Carbon Dioxide 24 mmol/L (20-30)
[2024-01-24 04:16] LABS: BUN/Creatinine Ratio 16.3 (10.0-20.0); Blood Urea Nitrogen 59 mg/dL (9-23); Glucose 60 mg/dL (74-106)
[2024-01-24 08:12] LABS: Base Excess -0.6 mmol/L (-2.0-2.0)
[2024-01-24 12:06] LABS: Protein, Body Fluid 1.9 g/dL (.)
[2024-01-24] MEDS: BUMETANIDE 2.5mg/10ml (0.25 mg/ml) INJ IV SCH (17:28)
[2024-01-24] MEDS: GLYCOPYRROLATE 0.2 MG/ML 1ML VIAL IV ONE (19:15)
[2024-01-24] MEDS ORDERED: Jevity 1.2 Cal/Fiber 1 Liter GT SCH (19:30)
[2024-01-25] VITALS (101 sets, daily range): BP systolic 114–195; BP diastolic 50–72; PULSE 54–79; RESP 11–28; TEMP 97.6–98.6; O2SAT 90–100
[2024-01-25 04:28] LABS: Basophils # (auto) 0 10 ^3/uL (0-0.2); Eosinophils # (auto) 0.3 10 ^3/uL (0-0.8); Hemoglobin 7.2 g/dL (13.5-17.5); Lymphocytes # (auto) 0.9 10 ^3/uL (0.4-5.4); Mean Corpuscular Volume 95.9 fL (80.0-100.0); Monocytes # (auto) 0.5 10 ^3/uL (0-1.3); Neutrophils # (auto) 3.3 10 ^3/uL (1.6-8.6)
[2024-01-25 04:31] LABS: Basophils % (auto) 0.8 % (0.0-2.0); Eosinophils % (auto) 5.7 % (0.0-7.0); Hematocrit 21.3 % (41.0-53.0); Lymphocytes % (auto) 18.4 % (10.0-50.0); Mean Corpuscular Hemoglobin 32.5 pg (28.0-32.0); Mean Corpuscular Hgb Conc. 33.8 g/dL (32.0-36.0); Monocytes % (auto) 9.3 % (0.0-12.0); Neutrophils % (auto) 65.8 % (37.0-80.0); Red Blood Cells 2.22 10^6/uL (4.5-5.90)
[2024-01-25 04:34] LABS: Chloride 111 mmol/L (98-107); Potassium 3.8 mmol/L (3.5-5.1); Sodium 145 mmol/L (136-145)
[2024-01-25 04:35] LABS: Anion Gap 11 (5-15); Calcium 9.2 mg/dL (8.5-10.1); Carbon Dioxide 23 mmol/L (20-30)
[2024-01-25 04:41] LABS: BUN/Creatinine Ratio 15.1 (10.0-20.0); Blood Urea Nitrogen 57 mg/dL (9-23); Glucose 62 mg/dL (74-106)
[2024-01-25 09:23] LABS: Base Excess -1.5 mmol/L (-2.0-2.0)
[2024-01-25 11:18] LABS: Base Excess -2.2 mmol/L (-2.0-2.0)
[2024-01-25] MEDS ORDERED: hydrALAZINE HCL 20 MG/ML VL IV PRN (13:00)
[2024-01-25] MEDS ORDERED: LABETALOL HCL 5 MG/ML ML 20ML VIAL IV PRN (13:15)
[2024-01-26] VITALS (39 sets, daily range): BP systolic 108–205; BP diastolic 61–78; PULSE 67–107; RESP 13–21; TEMP 97.7–98.7; O2SAT 84–100
[2024-01-26 03:58] LABS: Monocytes # (auto) 0.5 10 ^3/uL (0-1.3); Nucleated Red Blood Cells % 0.1 %; Red Cell Distribution Width 16.2 % (11.8-14.3)
[2024-01-26 04:01] LABS: Basophils # (auto) 0 10 ^3/uL (0-0.2); Basophils % (auto) 0.8 % (0.0-2.0); Eosinophils # (auto) 0.5 10 ^3/uL (0-0.8); Eosinophils % (auto) 7.8 % (0.0-7.0); Hematocrit 22.6 % (41.0-53.0); Hemoglobin 7.5 g/dL (13.5-17.5); Lymphocytes # (auto) 0.8 10 ^3/uL (0.4-5.4); Lymphocytes % (auto) 13.8 % (10.0-50.0); Mean Corpuscular Hemoglobin 31.8 pg (28.0-32.0); Mean Corpuscular Hgb Conc. 33.3 g/dL (32.0-36.0); Mean Corpuscular Volume 95.6 fL (80.0-100.0); Monocytes % (auto) 8.3 % (0.0-12.0); Neutrophils # (auto) 4.1 10 ^3/uL (1.6-8.6); Neutrophils % (auto) 69.3 % (37.0-80.0); Red Blood Cells 2.36 10^6/uL (4.5-5.90); White Blood Cell 5.9 10^3/uL (4.4-10.8)
[2024-01-26 04:14] LABS: Alanine Aminotransferase 11 U/L (7-40); Albumin 2.8 g/dL (3.2-4.8); Alkaline Phosphatase 62 U/L (46-116); Anion Gap 10 (5-15); Aspartate Aminotransferase 26 U/L (13-40); BUN/Creatinine Ratio 14.5 (10.0-20.0); Blood Urea Nitrogen 54 mg/dL (9-23); Calcium 9.2 mg/dL (8.7-10.4); Carbon Dioxide 26 mmol/L (20-30); Chloride 110 mmol/L (98-107); Glucose 62 mg/dL (74-106); Magnesium 2.2 mg/dL (1.6-2.6); Potassium 3.6 mmol/L (3.5-5.1); Sodium 146 mmol/L (136-145)
[2024-01-26 04:15] LABS: Bilirubin, Total 0.2 mg/dL (0.2-1.0)
[2024-01-26] MEDS: POTASSIUM CHL 20MEQ/100ML 100 ML IV ONE (12:30)
[2024-01-26] MEDS: SOD CHL 0.45% 1,000 ML IV SCH (12:32)
[2024-01-26] MEDS: GABAPENTIN 300 MG CAP PO SCH (20:20)
[2024-01-27] VITALS (43 sets, daily range): BP systolic 104–143; BP diastolic 60–83; PULSE 65–78; RESP 11–24; TEMP 97.9–99.4; O2SAT 81–100
[2024-01-27 05:03] LABS: Basophils # (auto) 0 10 ^3/uL (0-0.2); Eosinophils # (auto) 0.4 10 ^3/uL (0-0.8); Lymphocytes # (auto) 0.9 10 ^3/uL (0.4-5.4); Mean Corpuscular Volume 94.9 fL (80.0-100.0); Monocytes # (auto) 0.5 10 ^3/uL (0-1.3); Red Cell Distribution Width 15.7 % (11.8-14.3)
[2024-01-27 05:05] LABS: Basophils % (auto) 0.6 % (0.0-2.0); Eosinophils % (auto) 6.6 % (0.0-7.0); Hemoglobin 7.4 g/dL (13.5-17.5); Lymphocytes % (auto) 13.7 % (10.0-50.0); Mean Corpuscular Hgb Conc. 33.7 g/dL (32.0-36.0); Monocytes % (auto) 8.6 % (0.0-12.0); Neutrophils # (auto) 4.4 10 ^3/uL (1.6-8.6); Neutrophils % (auto) 70.5 % (37.0-80.0); Red Blood Cells 2.32 10^6/uL (4.5-5.90); White Blood Cell 6.3 10^3/uL (4.4-10.8)
[2024-01-27 05:18] LABS: Alanine Aminotransferase 12 U/L (7-40); Albumin 2.6 g/dL (3.2-4.8); Alkaline Phosphatase 63 U/L (46-116); Anion Gap 8 (5-15); Aspartate Aminotransferase 31 U/L (13-40); BUN/Creatinine Ratio 14.4 (10.0-20.0); Blood Urea Nitrogen 49 mg/dL (9-23); Carbon Dioxide 27 mmol/L (20-30); Chloride 109 mmol/L (98-107); Glucose 95 mg/dL (74-106); Magnesium 2.1 mg/dL (1.6-2.6); Potassium 3.7 mmol/L (3.5-5.1); Sodium 144 mmol/L (136-145)
[2024-01-27 05:19] LABS: Bilirubin, Total 0.2 mg/dL (0.2-1.0); Total Protein 5.8 g/dL (5.7-8.2)
[2024-01-27] MEDS: DOCUSATE SOD 100 MG CAP PO SCH (10:00)
[2024-01-27] MEDS: POTASSIUM EFFERVESENT TAB 25 MEQ PO ONE (10:52)
[2024-01-27] MEDS: MORPHINE SULFATE INJ 2 MG/ml SYRG IV PRN (10:54)
[2024-01-28] VITALS (29 sets, daily range): BP systolic 100–148; BP diastolic 61–78; PULSE 64–79; RESP 14–20; TEMP 97.9–99; O2SAT 93–100
[2024-01-28 06:06] LABS: Anion Gap 7 (5-15); Carbon Dioxide 27 mmol/L (20-30); Chloride 108 mmol/L (98-107); Potassium 3.8 mmol/L (3.5-5.1); Sodium 142 mmol/L (136-145)
[2024-01-28 06:07] LABS: Calcium 8.8 mg/dL (8.7-10.4)
[2024-01-28 06:12] LABS: BUN/Creatinine Ratio 14.7 (10.0-20.0); Blood Urea Nitrogen 47 mg/dL (9-23); Glucose 90 mg/dL (74-106)
[2024-01-28] MEDS: levoFLOXacin 250 MG TAB PO SCH (10:00)
[2024-01-28] MEDS ORDERED: BUM1T PO (14:23)
[2024-01-28] MEDS ORDERED: AUG875T PO (17:28)
[2024-01-29] VITALS (13 sets, daily range): BP systolic 111–138; BP diastolic 71–86; PULSE 66–86; RESP 16–20; TEMP 97.7–97.9; O2SAT 94–100
[2024-01-29] MEDS: BUMETANIDE 2.5mg/10ml (0.25 mg/ml) INJ IV SCH (09:09)
== END 2024-01-29 18:50 | disposition home health service (06) | DRG 208 ==
LOC: ER 17:51 → EDBD 17:51 → TELE 22:14 → TELE-EAST 01-17 03:10 → DOU IN ICU 01-21 12:30 → ICU CENTRL 01-21 21:43 → ICU WEST 01-22 04:05 → DOU IN ICU 01-26 16:58 → TELE-EAST 01-28 14:55
PROVIDERS: ADMIT Nurse Practitioner Family; ATTEND Internal Medicine
PROC: 5A1945Z Respiratory Ventilation, 24-96 Consecutive Hours (ICD-10-PCS; principal; 2024-01-21)
PROC: 0W993ZZ Drainage of Right Pleural Cavity, Percutaneous Approach (ICD-10-PCS; 2024-01-21)
PROC: 0BH17EZ Insertion of Endotracheal Airway into Trachea, Via Natural or Artificial Opening (ICD-10-PCS; 2024-01-21)
PROC: 02HV33Z Insertion of Infusion Device into Superior Vena Cava, Percutaneous Approach (ICD-10-PCS; 2024-01-21)
PROC: B548ZZA Ultrasonography of Superior Vena Cava, Guidance (ICD-10-PCS; 2024-01-21)
PROC: 03HY32Z Insertion of Monitoring Device into Upper Artery, Percutaneous Approach (ICD-10-PCS; 2024-01-21)
PROC: 0B978ZZ Drainage of Left Main Bronchus, Via Natural or Artificial Opening Endoscopic (ICD-10-PCS; 2024-01-21)
PROC: 0W9B3ZZ Drainage of Left Pleural Cavity, Percutaneous Approach (ICD-10-PCS; 2024-01-22)
PROC: 0B968ZZ Drainage of Right Lower Lobe Bronchus, Via Natural or Artificial Opening Endoscopic (ICD-10-PCS; 2024-01-23)
DX: J96.21 Acute and chronic respiratory failure with hypoxia (principal); G93.41 Metabolic encephalopathy; J18.9 Pneumonia, unspecified organism; N17.9 Acute kidney failure, unspecified; N18.4 Chronic kidney disease, stage 4 (severe); I13.0 Hypertensive heart and chronic kidney disease with heart failure and stage 1 through stage 4 chronic kidney disease, or unspecified chronic kidney disease; J44.0 Chronic obstructive pulmonary disease with (acute) lower respiratory infection; J93.9 Pneumothorax, unspecified; N39.0 Urinary tract infection, site not specified; I48.20 Chronic atrial fibrillation, unspecified; E87.20 Acidosis, unspecified; N04.8 Nephrotic syndrome with other morphologic changes; I50.9 Heart failure, unspecified; I16.0 Hypertensive urgency; D63.1 Anemia in chronic kidney disease; M19.012 Primary osteoarthritis, left shoulder; K74.60 Unspecified cirrhosis of liver; E78.5 Hyperlipidemia, unspecified; I73.9 Peripheral vascular disease, unspecified; Z86.711 Personal history of pulmonary embolism; Z79.01 Long term (current) use of anticoagulants; Z86.73 Personal history of transient ischemic attack (TIA), and cerebral infarction without residual deficits; Z79.899 Other long term (current) drug therapy; Z89.611 Acquired absence of right leg above knee; Z93.3 Colostomy status; Z82.3 Family history of stroke; Z99.81 Dependence on supplemental oxygen
CPT/HCPCS: 32555; 36415; 36600; 70450; 71045; 73030; 73200; 76775; 80048; 80053; 80307; 80320; 81001; 82140; 82306; 82570; 82607; 82784; 82805; 82962; 83540; 83550; 83605; 83735; 83880; 83986; 84100; 84156; 84300; 84484; 85025; 85610; 85730; 86334; 86803; 86850; 86900; 86901; 87070; 87077; 87081; 87186; 87205; 87340; 89051; 92610; 93005; 94002; 94003; 94640; 94660; A4565; G0378; J2470; J2704; J3480; J7060

== ENCOUNTER 2024-01-31 21:26 | Inpatient (IN) | payer OTHER, MEDICAID ==
[~2024-01-31] VITALS: Ht 165.1 cm; Wt 70.8 kg
[~2024-01-31 21:26] MED LIST changes: +AUG875T PO; -GABA-1250 PO; -HYDR-4298 PO; -METO-159 PO; -METO10TA7 PO
[2024-01-31 21:55] LABS: Basophils # (auto) 0.1 10 ^3/uL (0-0.2); Basophils % (auto) 0.8 % (0.0-2.0); Eosinophils # (auto) 0.6 10 ^3/uL (0-0.8); Eosinophils % (auto) 6.6 % (0.0-7.0); Hematocrit 28.5 % (41.0-53.0); Hemoglobin 9.5 g/dL (13.5-17.5); Lymphocytes # (auto) 1.2 10 ^3/uL (0.4-5.4); Lymphocytes % (auto) 14.1 % (10.0-50.0); Mean Corpuscular Hemoglobin 31.3 pg (28.0-32.0); Mean Corpuscular Hgb Conc. 33.5 g/dL (32.0-36.0); Mean Corpuscular Volume 93.5 fL (80.0-100.0); Monocytes # (auto) 0.5 10 ^3/uL (0-1.3); Monocytes % (auto) 5.8 % (0.0-12.0); Neutrophils # (auto) 6.3 10 ^3/uL (1.6-8.6); Neutrophils % (auto) 72.7 % (37.0-80.0); Nucleated Red Blood Cells % 0.1 %; Red Blood Cells 3.05 10^6/uL (4.5-5.90); Red Cell Distribution Width 14.6 % (11.8-14.3); White Blood Cell 8.6 10^3/uL (4.4-10.8)
[2024-01-31] MEDS: ALBUTEROL SULF 2.5 MG/0.5ML(0.5%) NEB SOLN NEB ONE (22:03)
[2024-01-31 22:04] LABS: Chloride 108 mmol/L (98-107); Potassium 4.6 mmol/L (3.5-5.1); Sodium 140 mmol/L (136-145)
[2024-01-31 22:05] LABS: Anion Gap 6 (5-15); Carbon Dioxide 26 mmol/L (20-30)
[2024-01-31 22:10] LABS: Glucose 89 mg/dL (74-106)
[2024-01-31 22:11] LABS: BUN/Creatinine Ratio 13.5 (10.0-20.0); Blood Urea Nitrogen 39 mg/dL (9-23)
[2024-01-31 22:43] VITALS: PULSE 70; RESP 29; TEMP 98.4; O2SAT 96
[2024-01-31] MEDS: CEFEPIME 2GM/50ML NS 50 ML IV ONE (23:45)
[2024-01-31] MEDS: FUROSEMIDE 40 MG/4 ML VIAL IV ONE (23:46)
[2024-02-01] VITALS (21 sets, daily range): BP systolic 124–160; BP diastolic 62–79; PULSE 64–117; RESP 10–20; TEMP 97.7–98.3; O2SAT 86–100
[2024-02-01] MEDS: ONDANSETRON HCL 4 MG/2 ML VIAL IV ONE (00:10)
[2024-02-01] MEDS: MORPHINE SULFATE 4 MG/ML SYR/VIAL IV ONE (00:10)
[2024-02-01] MEDS: VANCOMYCIN 1GM/200ML 200 ML IV ONE (00:50)
[2024-02-01] MEDS ORDERED: ACETAMINOPHEN 325 MG TAB PO PRN (02:30)
[2024-02-01] MEDS ORDERED: DOCUSATE SOD 100 MG CAP PO PRN (02:30)
[2024-02-01] MEDS ORDERED: NITROGLYCERIN 0.4 MG SL TAB SL PRN (02:30)
[2024-02-01] MEDS ORDERED: MORPHINE SULFATE INJ 2 MG/ml SYRG IV PRN (02:30)
[2024-02-01] MEDS ORDERED: ONDANSETRON HCL 4 MG/2 ML VIAL IV PRN (02:30)
[2024-02-01 05:42] LABS: Basophils # (auto) 0.1 10 ^3/uL (0-0.2); Basophils % (auto) 0.8 % (0.0-2.0); Eosinophils # (auto) 0.4 10 ^3/uL (0-0.8); Eosinophils % (auto) 5.2 % (0.0-7.0); Hematocrit 27.3 % (41.0-53.0); Hemoglobin 9.1 g/dL (13.5-17.5); Lymphocytes # (auto) 1.2 10 ^3/uL (0.4-5.4); Lymphocytes % (auto) 15.6 % (10.0-50.0); Mean Corpuscular Hemoglobin 31.4 pg (28.0-32.0); Mean Corpuscular Hgb Conc. 33.5 g/dL (32.0-36.0); Mean Corpuscular Volume 93.7 fL (80.0-100.0); Monocytes # (auto) 0.7 10 ^3/uL (0-1.3); Monocytes % (auto) 9.2 % (0.0-12.0); Neutrophils # (auto) 5.4 10 ^3/uL (1.6-8.6); Neutrophils % (auto) 69.2 % (37.0-80.0); Red Blood Cells 2.91 10^6/uL (4.5-5.90); Red Cell Distribution Width 14.9 % (11.8-14.3); White Blood Cell 7.8 10^3/uL (4.4-10.8)
[2024-02-01 05:51] LABS: Urine Bacteria None Seen /hpf (None Seen)
[2024-02-01 05:55] LABS: INR 1.14 (0.9-1.15)
[2024-02-01 06:01] LABS: Anion Gap 7 (5-15); Carbon Dioxide 26 mmol/L (20-30); Chloride 107 mmol/L (98-107); Potassium 4.4 mmol/L (3.5-5.1); Sodium 140 mmol/L (136-145)
[2024-02-01 06:03] LABS: Calcium 8.9 mg/dL (8.7-10.4)
[2024-02-01 06:07] LABS: Glucose 87 mg/dL (74-106)
[2024-02-01 06:08] LABS: BUN/Creatinine Ratio 13.7 (10.0-20.0); Blood Urea Nitrogen 40 mg/dL (9-23); Urine Blood 1+ /uL (Negative); Urine Budding Yeast FEW /hpf (None Seen); Urine Clarity Clear (Clear); Urine Color Light-Yellow (Yellow); Urine Protein, UAD 3+ (Negative); Urine Specific Gravity 1.012 (1.001-1.035); Urine Urobilinogen Normal (Negative); Urine WBC 87 /hpf (0 - 3); Urine WBC Clumps PRESENT /hpf (None Seen)
[2024-02-01] MEDS: IPRATROPIUM BROM 0.5 MG/2.5ML INH SOL NEB SCH (06:32)
[2024-02-01] MEDS: ALBUTEROL SULF 2.5 MG/0.5ML(0.5%) NEB SOLN NEB SCH (06:33)
[2024-02-01] MEDS: BUMETANIDE 2.5mg/10ml (0.25 mg/ml) INJ IV SCH (10:13)
[2024-02-01] MEDS: CEFEPIME 1GM/ 50ML 50 ML IV SCH (10:14)
[2024-02-01 13:36] LABS: Body Fluid Polymorphonuclear 80 % (0-25); Body Fluid Red Blood Cells 940 CUMM (0-2000); Body Fluid White Blood Cells 745 CUMM (0-200)
[2024-02-02] VITALS (33 sets, daily range): BP systolic 119–172; BP diastolic 62–86; PULSE 70–109; RESP 9–18; TEMP 97.3–97.8; O2SAT 3–100
[2024-02-02 05:08] LABS: Basophils # (auto) 0 10 ^3/uL (0-0.2); Basophils % (auto) 0.8 % (0.0-2.0); Eosinophils # (auto) 0.5 10 ^3/uL (0-0.8); Eosinophils % (auto) 8.3 % (0.0-7.0); Hematocrit 27.5 % (41.0-53.0); Hemoglobin 9.1 g/dL (13.5-17.5); Lymphocytes # (auto) 1.2 10 ^3/uL (0.4-5.4); Lymphocytes % (auto) 19.6 % (10.0-50.0); Mean Corpuscular Hemoglobin 31.5 pg (28.0-32.0); Mean Corpuscular Hgb Conc. 33.1 g/dL (32.0-36.0); Mean Corpuscular Volume 95.4 fL (80.0-100.0); Monocytes # (auto) 0.6 10 ^3/uL (0-1.3); Monocytes % (auto) 9.6 % (0.0-12.0); Neutrophils # (auto) 3.8 10 ^3/uL (1.6-8.6); Neutrophils % (auto) 61.7 % (37.0-80.0); Red Blood Cells 2.88 10^6/uL (4.5-5.90); Red Cell Distribution Width 15.4 % (11.8-14.3); White Blood Cell 6.2 10^3/uL (4.4-10.8)
[2024-02-02 05:24] LABS: Anion Gap 7 (5-15); Carbon Dioxide 25 mmol/L (20-30); Chloride 108 mmol/L (98-107); Potassium 4.4 mmol/L (3.5-5.1); Sodium 140 mmol/L (136-145)
[2024-02-02 05:29] LABS: Glucose 71 mg/dL (74-106)
[2024-02-02 05:30] LABS: BUN/Creatinine Ratio 11.7 (10.0-20.0); Blood Urea Nitrogen 35 mg/dL (9-23)
[2024-02-02] MEDS: HYDROcodone-ACET 5/325MG TAB PO PRN (08:05)
[2024-02-02 16:39] LABS: Body Fluid Polymorphonuclear 60 % (0-25); Body Fluid Red Blood Cells 2950 CUMM (0-2000); Body Fluid White Blood Cells 600 CUMM (0-200)
[2024-02-03] VITALS (26 sets, daily range): BP systolic 13–154; BP diastolic 62–83; PULSE 71–98; RESP 11–18; TEMP 97.6–98.6; O2SAT 92–100
[2024-02-03 05:59] LABS: Basophils # (auto) 0 10 ^3/uL (0-0.2); Eosinophils # (auto) 0.7 10 ^3/uL (0-0.8); Hemoglobin 7.2 g/dL (13.5-17.5); Lymphocytes # (auto) 1.2 10 ^3/uL (0.4-5.4); Monocytes # (auto) 0.5 10 ^3/uL (0-1.3); Neutrophils % (auto) 57.9 % (37.0-80.0); Red Blood Cells 2.27 10^6/uL (4.5-5.90)
[2024-02-03 06:02] LABS: Basophils % (auto) 0.7 % (0.0-2.0); Eosinophils % (auto) 12.2 % (0.0-7.0); Hematocrit 21.1 % (41.0-53.0); Lymphocytes % (auto) 20.8 % (10.0-50.0); Mean Corpuscular Hemoglobin 31.7 pg (28.0-32.0); Mean Corpuscular Hgb Conc. 34.1 g/dL (32.0-36.0); Mean Corpuscular Volume 92.9 fL (80.0-100.0); Monocytes % (auto) 8.4 % (0.0-12.0); Neutrophils # (auto) 3.4 10 ^3/uL (1.6-8.6); Nucleated Red Blood Cells % 0.1 %; Red Cell Distribution Width 14.8 % (11.8-14.3); White Blood Cell 5.9 10^3/uL (4.4-10.8)
[2024-02-03 06:07] LABS: Chloride 108 mmol/L (98-107); Potassium 4.4 mmol/L (3.5-5.1); Sodium 142 mmol/L (136-145)
[2024-02-03 06:08] LABS: Anion Gap 7 (5-15); Calcium 8.6 mg/dL (8.7-10.4); Carbon Dioxide 27 mmol/L (20-30)
[2024-02-03 06:13] LABS: BUN/Creatinine Ratio 14.8 (10.0-20.0); Glucose 103 mg/dL (74-106)
[2024-02-03 06:16] LABS: Blood Urea Nitrogen 48 mg/dL (9-23)
[2024-02-04] VITALS (21 sets, daily range): BP systolic 134–194; BP diastolic 71–85; PULSE 72–97; RESP 14–20; TEMP 97.9–98.3; O2SAT 92–100
[2024-02-04 07:09] LABS: Eosinophils # (auto) 0.7 10 ^3/uL (0-0.8); Hematocrit 22.6 % (41.0-53.0); Hemoglobin 7.7 g/dL (13.5-17.5); Mean Corpuscular Hgb Conc. 33.9 g/dL (32.0-36.0); Neutrophils # (auto) 3.1 10 ^3/uL (1.6-8.6)
[2024-02-04 07:13] LABS: Basophils # (auto) 0.1 10 ^3/uL (0-0.2); Eosinophils % (auto) 12.2 % (0.0-7.0); Lymphocytes # (auto) 1.4 10 ^3/uL (0.4-5.4); Lymphocytes % (auto) 24.2 % (10.0-50.0); Mean Corpuscular Hemoglobin 31.8 pg (28.0-32.0); Mean Corpuscular Volume 93.8 fL (80.0-100.0); Monocytes # (auto) 0.6 10 ^3/uL (0-1.3); Monocytes % (auto) 9.8 % (0.0-12.0); Neutrophils % (auto) 52.8 % (37.0-80.0); Red Blood Cells 2.41 10^6/uL (4.5-5.90); White Blood Cell 5.8 10^3/uL (4.4-10.8)
[2024-02-04 07:26] LABS: Calcium 8.8 mg/dL (8.7-10.4); Chloride 108 mmol/L (98-107); Potassium 4.2 mmol/L (3.5-5.1); Sodium 140 mmol/L (136-145)
[2024-02-04 07:27] LABS: Anion Gap 7 (5-15); Carbon Dioxide 25 mmol/L (20-30)
[2024-02-04 07:32] LABS: BUN/Creatinine Ratio 14.4 (10.0-20.0); Blood Urea Nitrogen 47 mg/dL (9-23); Glucose 81 mg/dL (74-106)
[2024-02-04] MEDS: MORPHINE SULFATE INJ 2 MG/ml SYRG IV PRN (13:38)
[2024-02-05] VITALS (19 sets, daily range): BP systolic 144–166; BP diastolic 52–85; PULSE 60–96; RESP 14–22; TEMP 97.8–98.9; O2SAT 94–100
[2024-02-05] MEDS: cloNIDine HCL 0.1 MG TAB PO PRN (03:38)
[2024-02-05] MEDS: LEVOTHYROXINE SODIUM 50 MCG TAB PO SCH (06:00)
[2024-02-05 06:52] LABS: Monocytes # (auto) 0.5 10 ^3/uL (0-1.3)
[2024-02-05 06:55] LABS: Basophils # (auto) 0.1 10 ^3/uL (0-0.2); Lymphocytes # (auto) 1.4 10 ^3/uL (0.4-5.4); Lymphocytes % (auto) 24.6 % (10.0-50.0); Mean Corpuscular Hemoglobin 32.2 pg (28.0-32.0); Mean Corpuscular Hgb Conc. 34.2 g/dL (32.0-36.0); Mean Corpuscular Volume 94.1 fL (80.0-100.0); Monocytes % (auto) 9.3 % (0.0-12.0); Neutrophils # (auto) 2.8 10 ^3/uL (1.6-8.6); Neutrophils % (auto) 48.2 % (37.0-80.0); Nucleated Red Blood Cells % 0.1 %; Red Blood Cells 2.12 10^6/uL (4.5-5.90); Red Cell Distribution Width 14.8 % (11.8-14.3); White Blood Cell 5.9 10^3/uL (4.4-10.8)
[2024-02-05 07:02] LABS: Chloride 105 mmol/L (98-107); Potassium 4.4 mmol/L (3.5-5.1); Sodium 137 mmol/L (136-145)
[2024-02-05 07:03] LABS: Anion Gap 7 (5-15); Calcium 8.8 mg/dL (8.7-10.4); Carbon Dioxide 25 mmol/L (20-30)
[2024-02-05 07:05] LABS: Eosinophils % (auto) 16.9 % (0.0-7.0); Hemoglobin 6.8 g/dL (13.5-17.5)
[2024-02-05 07:08] LABS: BUN/Creatinine Ratio 13.6 (10.0-20.0); Blood Urea Nitrogen 46 mg/dL (9-23); Glucose 88 mg/dL (74-106)
[2024-02-05] MEDS: SERTRALINE HCL 50 MG TAB PO SCH (10:37)
[2024-02-05] MEDS: amLODIPine BESYLATE 5 MG TAB PO SCH (10:38)
[2024-02-05] MEDS: MEMANTINE HCL 5 MG TAB PO SCH (10:39)
[2024-02-05] MEDS: CARVEDILOL 3.125 MG TAB PO SCH (10:39)
[2024-02-05 14:06] LABS: Albumin, Body Fluid 1.4 g/dL (Not Estab.)
[2024-02-05 14:06] LABS: Protein, Body Fluid 2.9 g/dL (.)
[2024-02-05] MEDS: FUROSEMIDE 40 MG/4 ML VIAL IV ONE (17:49)
[2024-02-05 19:10] LABS: Hematocrit 29.9 % (41.0-53.0)
== END 2024-02-05 20:30 | disposition home health service (06) | DRG 291 ==
LOC: ER 21:26 → EDBD 21:26 → TELE 02-01 02:34 → DOU IN ICU 02-01 11:05 → TELE-WESTW 02-03 18:15
PROVIDERS: ADMIT Nurse Practitioner Family; ATTEND Internal Medicine
PROC: 5A09357 Assistance with Respiratory Ventilation, Less than 24 Consecutive Hours, Continuous Positive Airway Pressure (ICD-10-PCS; principal; 2024-01-31)
PROC: 5A09357 Assistance with Respiratory Ventilation, Less than 24 Consecutive Hours, Continuous Positive Airway Pressure (ICD-10-PCS; 2024-02-01)
PROC: 0W993ZZ Drainage of Right Pleural Cavity, Percutaneous Approach (ICD-10-PCS; 2024-02-01)
PROC: 0W993ZZ Drainage of Right Pleural Cavity, Percutaneous Approach (ICD-10-PCS; 2024-02-02)
PROC: 30233N1 Transfusion of Nonautologous Red Blood Cells into Peripheral Vein, Percutaneous Approach (ICD-10-PCS; 2024-02-05)
DX: I13.0 Hypertensive heart and chronic kidney disease with heart failure and stage 1 through stage 4 chronic kidney disease, or unspecified chronic kidney disease (principal); I50.33 Acute on chronic diastolic (congestive) heart failure; J96.21 Acute and chronic respiratory failure with hypoxia; J96.22 Acute and chronic respiratory failure with hypercapnia; J44.1 Chronic obstructive pulmonary disease with (acute) exacerbation; J98.11 Atelectasis; J91.8 Pleural effusion in other conditions classified elsewhere; D63.8 Anemia in other chronic diseases classified elsewhere; E78.5 Hyperlipidemia, unspecified; I25.10 Atherosclerotic heart disease of native coronary artery without angina pectoris; I27.20 Pulmonary hypertension, unspecified; I48.91 Unspecified atrial fibrillation; K76.9 Liver disease, unspecified; N18.9 Chronic kidney disease, unspecified; I25.2 Old myocardial infarction; Z99.81 Dependence on supplemental oxygen; Z86.711 Personal history of pulmonary embolism; Z89.611 Acquired absence of right leg above knee; Z82.3 Family history of stroke; Z93.3 Colostomy status; Z79.01 Long term (current) use of anticoagulants; Z88.8 Allergy status to other drugs, medicaments and biological substances; Z87.891 Personal history of nicotine dependence; Z86.73 Personal history of transient ischemic attack (TIA), and cerebral infarction without residual deficits
CPT/HCPCS: 32555; 36415; 36600; 71045; 76604; 76942; 80048; 81001; 82805; 83605; 83735; 83880; 83986; 84484; 85014; 85018; 85025; 85610; 86850; 86900; 86901; 86920; 87081; 87205; 89051; 93005; 94640; 94660; 96365; 96375; G0378; J0692; J2405

== ENCOUNTER 2024-02-07 16:07 | Inpatient (IN) | payer OTHER, MEDICAID ==
[~2024-02-07] VITALS: Ht 177.8 cm; Wt 64.5 kg
[2024-02-07 17:49] VITALS: RESP 19; O2SAT 96
[2024-02-07 18:27] LABS: Basophils # (auto) 0.1 10 ^3/uL (0-0.2); Eosinophils # (auto) 0.6 10 ^3/uL (0-0.8); Eosinophils % (auto) 8.9 % (0.0-7.0); Hematocrit 30.1 % (41.0-53.0); Hemoglobin 10.3 g/dL (13.5-17.5); Lymphocytes # (auto) 1.2 10 ^3/uL (0.4-5.4); Lymphocytes % (auto) 17.4 % (10.0-50.0); Mean Corpuscular Hemoglobin 31.9 pg (28.0-32.0); Mean Corpuscular Hgb Conc. 34.1 g/dL (32.0-36.0); Mean Corpuscular Volume 93.5 fL (80.0-100.0); Monocytes # (auto) 0.6 10 ^3/uL (0-1.3); Monocytes % (auto) 8.2 % (0.0-12.0); Neutrophils # (auto) 4.5 10 ^3/uL (1.6-8.6); Neutrophils % (auto) 64.5 % (37.0-80.0); Red Blood Cells 3.22 10^6/uL (4.5-5.90); Red Cell Distribution Width 14.4 % (11.8-14.3)
[2024-02-07 18:34] LABS: Urine Bacteria None Seen /hpf (None Seen)
[2024-02-07 18:40] LABS: Alanine Aminotransferase 47 U/L (7-40); Albumin 2.8 g/dL (3.2-4.8); Alkaline Phosphatase 115 U/L (46-116); Anion Gap 11 (5-15); Aspartate Aminotransferase 88 U/L (13-40); BUN/Creatinine Ratio 18.3 (10.0-20.0); Bilirubin, Total 0.2 mg/dL (0.2-1.0); Blood Urea Nitrogen 63 mg/dL (9-23); Calcium 8.8 mg/dL (8.7-10.4); Carbon Dioxide 22 mmol/L (20-30); Chloride 108 mmol/L (98-107); Glucose 98 mg/dL (74-106); Magnesium 1.9 mg/dL (1.6-2.6); Potassium 3.7 mmol/L (3.5-5.1); Sodium 141 mmol/L (136-145); Total Protein 6.4 g/dL (5.7-8.2)
[2024-02-07 19:07] LABS: Urine Blood 2+ /uL (Negative); Urine Budding Yeast MODERATE /hpf (None Seen); Urine Clarity Ex.Turbid (Clear); Urine Color Colorless (Yellow); Urine Mucus FEW (None Seen); Urine Protein, UAD 3+ (Negative); Urine Specific Gravity 1.013 (1.001-1.035); Urine Urobilinogen Normal (Negative); Urine WBC 785 /hpf (0 - 3); Urine WBC Clumps PRESENT /hpf (None Seen); Urine pH 7.5 (5.0-9.0)
[2024-02-07 19:20] VITALS: PULSE 80; RESP 18; O2SAT 94
[2024-02-07] MEDS ORDERED: ONDANSETRON HCL 4 MG/2 ML VIAL IV PRN (22:30)
[2024-02-07] MEDS ORDERED: ALBUTEROL SULF 2.5 MG/0.5ML(0.5%) NEB SOLN NEB PRN (22:30)
[2024-02-07] MEDS: cefTRIAXone 1GM/50ML D5W 50 ML IV ONE (22:39)
[2024-02-07] MEDS: FUROSEMIDE 40 MG/4 ML VIAL IV ONE (23:45)
[2024-02-08] VITALS (7 sets, daily range): BP systolic 141–171; BP diastolic 77–90; PULSE 75–85; RESP 18; TEMP 97.5–99.1; O2SAT 93–96
[2024-02-08] MEDS: HEPARIN SODIUM (PORCINE) 5000 UNITS/ML 1ML VIAL IV ONE (01:04)
[2024-02-08 05:05] LABS: Basophils # (auto) 0.1 10 ^3/uL (0-0.2); Basophils % (auto) 1.8 % (0.0-2.0); Eosinophils # (auto) 0.4 10 ^3/uL (0-0.8); Eosinophils % (auto) 6.5 % (0.0-7.0); Hematocrit 27.6 % (41.0-53.0); Hemoglobin 9.5 g/dL (13.5-17.5); Lymphocytes # (auto) 1.5 10 ^3/uL (0.4-5.4); Lymphocytes % (auto) 22.5 % (10.0-50.0); Mean Corpuscular Hemoglobin 31.7 pg (28.0-32.0); Mean Corpuscular Hgb Conc. 34.2 g/dL (32.0-36.0); Mean Corpuscular Volume 92.7 fL (80.0-100.0); Monocytes # (auto) 0.6 10 ^3/uL (0-1.3); Monocytes % (auto) 9.3 % (0.0-12.0); Neutrophils % (auto) 59.9 % (37.0-80.0); Red Blood Cells 2.98 10^6/uL (4.5-5.90); Red Cell Distribution Width 14.3 % (11.8-14.3); White Blood Cell 6.6 10^3/uL (4.4-10.8)
[2024-02-08 05:20] LABS: Alanine Aminotransferase 35 U/L (7-40); Albumin 2.6 g/dL (3.2-4.8); Alkaline Phosphatase 92 U/L (46-116); Anion Gap 11 (5-15); Aspartate Aminotransferase 61 U/L (13-40); BUN/Creatinine Ratio 15.2 (10.0-20.0); Bilirubin, Total 0.2 mg/dL (0.2-1.0); Blood Urea Nitrogen 54 mg/dL (9-23); Calcium 8.8 mg/dL (8.7-10.4); Carbon Dioxide 24 mmol/L (20-30); Chloride 107 mmol/L (98-107); Glucose 85 mg/dL (74-106); Potassium 3.6 mmol/L (3.5-5.1); Sodium 142 mmol/L (136-145); Total Protein 6.2 g/dL (5.7-8.2)
[2024-02-08] MEDS: FAMOTIDINE (10MG/ML) 2ML VL IV SCH (11:33)
[2024-02-08] MEDS: HEPARIN SODIUM (PORCINE) 5000 UNITS/ML 1ML VIAL IV SCH (11:35)
[2024-02-08] MEDS: cefTRIAXone 1GM/50ML D5W 50 ML IV SCH (12:10)
[2024-02-08] MEDS ORDERED: CLINIMIX PER PHARMACY 0 ML IV SCH (12:30)
[2024-02-08] MEDS ORDERED: DEXTROSE (50%) 50ML SYRG IV PRN (12:45)
[2024-02-08] MEDS: SODIUM CHLORIDE 0.9% 1,000 ML IV SCH (14:15)
[2024-02-08] MEDS: InsuLIN REG 1unit/0.01ml Soln (100units/ml) SC SCH (18:00)
[2024-02-08] MEDS: ACCU-CHEK COMFORT CURVE STRIP VI SCH (18:15)
[2024-02-08] MEDS: AMINO ACID INFUSION IN D10W 1,000 ML IV SCH (22:13)
[2024-02-09] VITALS (10 sets, daily range): BP systolic 153–162; BP diastolic 74–89; PULSE 59–87; RESP 16–96; TEMP 98.3–98.5; O2SAT 16–96
[2024-02-09 07:48] LABS: Basophils # (auto) 0.1 10 ^3/uL (0-0.2); Basophils % (auto) 1.2 % (0.0-2.0); Eosinophils # (auto) 0.6 10 ^3/uL (0-0.8); Hematocrit 30.4 % (41.0-53.0); Hemoglobin 10.5 g/dL (13.5-17.5); Lymphocytes # (auto) 1.4 10 ^3/uL (0.4-5.4); Lymphocytes % (auto) 26.9 % (10.0-50.0); Mean Corpuscular Hemoglobin 31.9 pg (28.0-32.0); Mean Corpuscular Hgb Conc. 34.5 g/dL (32.0-36.0); Mean Corpuscular Volume 92.4 fL (80.0-100.0); Monocytes # (auto) 0.4 10 ^3/uL (0-1.3); Neutrophils # (auto) 2.7 10 ^3/uL (1.6-8.6); Neutrophils % (auto) 52.9 % (37.0-80.0); Red Blood Cells 3.29 10^6/uL (4.5-5.90); Red Cell Distribution Width 14.3 % (11.8-14.3)
[2024-02-09 07:51] LABS: Alanine Aminotransferase 32 U/L (7-40); Albumin 2.9 g/dL (3.2-4.8); Alkaline Phosphatase 96 U/L (46-116); Anion Gap 12 (5-15); Aspartate Aminotransferase 51 U/L (13-40); BUN/Creatinine Ratio 15.6 (10.0-20.0); Blood Urea Nitrogen 54 mg/dL (9-23); Carbon Dioxide 23 mmol/L (20-30); Chloride 106 mmol/L (98-107); Glucose 83 mg/dL (74-106); Magnesium 1.9 mg/dL (1.6-2.6); Potassium 3.5 mmol/L (3.5-5.1); Sodium 141 mmol/L (136-145)
[2024-02-09 07:52] LABS: Bilirubin, Total 0.2 mg/dL (0.2-1.0); Total Protein 6.8 g/dL (5.7-8.2)
[2024-02-09] MEDS: HEPARIN SODIUM (PORCINE) 5000 UNITS/ML 1ML VIAL SC SCH (10:00)
[2024-02-09] MEDS: HYDROcodone-ACET 5/325MG TAB PO PRN (11:05)
[2024-02-09] MEDS ORDERED: DEXTROSE (50%) 50ML SYRG IV SCH (15:15)
[2024-02-09] MEDS: ACCU-CHEK COMFORT CURVE STRIP VI SCH (18:00)
[2024-02-09] MEDS: InsuLIN REG 1unit/0.01ml Soln (100units/ml) SC SCH (18:00)
[2024-02-09] MEDS: SODIUM CHLORIDE 0.9% 1,000 ML IV SCH (18:50)
[2024-02-09 23:55] LABS: Body Fluid Red Blood Cells 4275 CUMM (0-2000); Body Fluid White Blood Cells 450 CUMM (0-200)
[2024-02-10] VITALS (11 sets, daily range): BP systolic 153–178; BP diastolic 76–92; PULSE 56–100; RESP 16–19; TEMP 97.7–98.4; O2SAT 95–96
[2024-02-10 00:36] LABS: Body Fluid Polymorphonuclear 19 % (0-25)
[2024-02-10] MEDS: hydrALAZINE HCL 20 MG/ML VL IV PRN (01:18)
[2024-02-10 06:14] LABS: Basophils # (auto) 0.1 10 ^3/uL (0-0.2); Basophils % (auto) 0.8 % (0.0-2.0); Eosinophils # (auto) 0.4 10 ^3/uL (0-0.8); Eosinophils % (auto) 6.1 % (0.0-7.0); Hematocrit 28.4 % (41.0-53.0); Hemoglobin 10.1 g/dL (13.5-17.5); Lymphocytes # (auto) 1.2 10 ^3/uL (0.4-5.4); Lymphocytes % (auto) 18.3 % (10.0-50.0); Mean Corpuscular Hemoglobin 32.6 pg (28.0-32.0); Mean Corpuscular Hgb Conc. 35.7 g/dL (32.0-36.0); Mean Corpuscular Volume 91.3 fL (80.0-100.0); Monocytes # (auto) 0.5 10 ^3/uL (0-1.3); Monocytes % (auto) 8.2 % (0.0-12.0); Neutrophils # (auto) 4.2 10 ^3/uL (1.6-8.6); Neutrophils % (auto) 66.6 % (37.0-80.0); Nucleated Red Blood Cells % 0.1 %; Red Blood Cells 3.11 10^6/uL (4.5-5.90); Red Cell Distribution Width 14.4 % (11.8-14.3); White Blood Cell 6.3 10^3/uL (4.4-10.8)
[2024-02-10 06:18] LABS: Alanine Aminotransferase 27 U/L (7-40); Albumin 2.7 g/dL (3.2-4.8); Alkaline Phosphatase 88 U/L (46-116); Anion Gap 12 (5-15); Aspartate Aminotransferase 40 U/L (13-40); BUN/Creatinine Ratio 15.9 (10.0-20.0); Blood Urea Nitrogen 52 mg/dL (9-23); Calcium 8.8 mg/dL (8.7-10.4); Carbon Dioxide 22 mmol/L (20-30); Chloride 106 mmol/L (98-107); Glucose 97 mg/dL (74-106); Magnesium 1.8 mg/dL (1.6-2.6); Phosphorus 4.8 mg/dL (2.4-5.1); Potassium 2.8 mmol/L (3.5-5.1); Sodium 140 mmol/L (136-145)
[2024-02-10 06:19] LABS: Bilirubin, Total 0.2 mg/dL (0.2-1.0); Total Protein 6.4 g/dL (5.7-8.2)
[2024-02-10] MEDS: MAGNESIUM SULFATE 1GM/100ML 100 ML IV SCH (10:25)
[2024-02-10] MEDS: POTASSIUM CHL 20MEQ/100ML 100 ML IV SCH ×2 (11:00→15:25)
[2024-02-10] MEDS: POTASSIUM EFFERVESENT TAB 25 MEQ PO ONE (12:04)
[2024-02-10 14:37] LABS: Sodium Urine 53 mmol/L (40-220)
[2024-02-10 14:43] LABS: Amphetamine Screen, Urine Neg (NEGATIVE); Benzodiazephine Screen, Urine Neg (NEGATIVE)
[2024-02-10 14:44] LABS: Barbiturate Scree,Urine Neg (NEGATIVE); Cannabinoid Screen, Urine Neg (NEGATIVE); Cocaine Screen, Urine Neg (NEGATIVE); Creatinine, Urine 43.61 mg/dL (30.0-125.0); Opiate Scree,Urine Neg (NEGATIVE); Phencyclidine Screen, Urine Neg (NEGATIVE)
[2024-02-10 14:47] LABS: Protein, Urine 580.1 mg/dL (0.0-11.9)
[2024-02-11] VITALS (9 sets, daily range): BP systolic 144–192; BP diastolic 76–92; PULSE 72–91; RESP 16–24; TEMP 97.3–98.5; O2SAT 69–98
[2024-02-11] MEDS: cloNIDine HCL 0.1 MG TAB PO PRN (02:40)
[2024-02-11] MEDS: HYDROcodone-ACET 5/325MG TAB PO PRN (02:40)
[2024-02-11] MEDS ORDERED: MORPHINE SULFATE INJ 2 MG/ml SYRG IV PRN (02:45)
[2024-02-11 06:13] LABS: Alanine Aminotransferase 28 U/L (7-40); Albumin 2.5 g/dL (3.2-4.8); Alkaline Phosphatase 98 U/L (46-116); Anion Gap 6 (5-15); Aspartate Aminotransferase 54 U/L (13-40); Bilirubin, Total < 0.2 mg/dL (0.2-1.0); Blood Urea Nitrogen 55 mg/dL (9-23); Calcium 8.6 mg/dL (8.7-10.4); Carbon Dioxide 23 mmol/L (20-30); Chloride 108 mmol/L (98-107); Glucose 100 mg/dL (74-106); Magnesium 1.7 mg/dL (1.6-2.6); Phosphorus 3.6 mg/dL (2.4-5.1); Potassium 3.8 mmol/L (3.5-5.1); Sodium 137 mmol/L (136-145); Total Protein 5.8 g/dL (5.7-8.2)
[2024-02-11] MEDS: amLODIPine BESYLATE 5 MG TAB PO ONE (11:23)
[2024-02-11] MEDS ORDERED: cloNIDine HCL 0.1 MG TAB PO PRN (14:00)
[2024-02-11] MEDS: APIXABAN 2.5 MG TAB PO SCH (22:18)
[2024-02-11] MEDS: CARVEDILOL 3.125 MG TAB PO SCH (22:20)
[2024-02-12] VITALS (7 sets, daily range): BP systolic 138–162; BP diastolic 69–87; PULSE 73–91; RESP 16–19; TEMP 97.2–98.7; O2SAT 94–98
[2024-02-12] MEDS: LEVOTHYROXINE SODIUM 50 MCG TAB PO SCH (06:15)
[2024-02-12] MEDS: FAMOTIDINE 20 MG TAB PO SCH (10:33)
[2024-02-12] MEDS: MEMANTINE HCL 5 MG TAB PO SCH (10:34)
[2024-02-12] MEDS: amLODIPine BESYLATE 5 MG TAB PO SCH (10:37)
[2024-02-12] MEDS: HYDROcodone-ACET 5/325MG TAB PO PRN (13:23)
[2024-02-12] MEDS ORDERED: ATORVASTATIN 20 MG TAB PO SCH (22:00)
== END 2024-02-12 17:18 | disposition home health service (06) | DRG 699 ==
LOC: EDBD 16:07 → EDUNIT# 16:07 → ER 16:07 → TELE 22:16 → TELE-CENTR 02-08 08:54
PROVIDERS: ADMIT Hospitalist; ATTEND Hospitalist
PROC: 0W993ZZ Drainage of Right Pleural Cavity, Percutaneous Approach (ICD-10-PCS; principal; 2024-02-09)
PROC: 05HA33Z Insertion of Infusion Device into Left Brachial Vein, Percutaneous Approach (ICD-10-PCS; 2024-02-10)
PROC: B54NZZA Ultrasonography of Left Upper Extremity Veins, Guidance (ICD-10-PCS; 2024-02-10)
DX: T83.518A Infection and inflammatory reaction due to other urinary catheter, initial encounter (principal); I13.0 Hypertensive heart and chronic kidney disease with heart failure and stage 1 through stage 4 chronic kidney disease, or unspecified chronic kidney disease; N17.9 Acute kidney failure, unspecified; N39.0 Urinary tract infection, site not specified; J96.11 Chronic respiratory failure with hypoxia; J98.11 Atelectasis; I50.9 Heart failure, unspecified; G93.89 Other specified disorders of brain; L89.159 Pressure ulcer of sacral region, unspecified stage; E78.5 Hyperlipidemia, unspecified; N26.1 Atrophy of kidney (terminal); N18.30 Chronic kidney disease, stage 3 unspecified; I25.10 Atherosclerotic heart disease of native coronary artery without angina pectoris; E87.6 Hypokalemia; E83.42 Hypomagnesemia; J44.9 Chronic obstructive pulmonary disease, unspecified; I48.91 Unspecified atrial fibrillation; Z82.3 Family history of stroke; Z99.81 Dependence on supplemental oxygen; Z89.611 Acquired absence of right leg above knee; Z86.73 Personal history of transient ischemic attack (TIA), and cerebral infarction without residual deficits; Z87.891 Personal history of nicotine dependence
CPT/HCPCS: 32555; 36415; 70450; 70551; 71045; 76775; 80053; 80307; 81001; 82140; 82570; 82962; 83036; 83605; 83735; 83935; 83986; 84100; 84156; 84300; 84484; 85025; 87040; 87086; 89051; 93005; G0378; J1815; J3480; J3490

== ENCOUNTER 2024-05-28 20:43 | Inpatient (IN) | payer MEDICARE, MEDICAID ==
[~2024-05-28] VITALS: Ht 182.9 cm; Wt 49.2 kg
[~2024-05-28 20:43] MED LIST changes: -AUG875T PO; -BUM1T PO; +BUME1TAB3 PO; -CLON0.1T PO; -FURO1TAB33 PO; +GABA-1308 PO; +HYDR100T10 PO; +KEP500T PO; -LOSA-533 PO; +METO10TA7 PO; -MORP15TA PO; -POTA-211 PO; +SEVE800T7 PO; +SODI650T PO; +[UNRECOGNIZED DRUG - CODE] PO
[2024-05-28] MEDS ORDERED: ETOMIDATE (2MG/ML) 20ML VIAL IV ONE (20:47)
[2024-05-28] MEDS ORDERED: SUCCINYLCHOLINE CHLORIDE 20 MG/ML 10ML VIAL IV ONE (20:47)
[2024-05-28] MEDS: ETOMIDATE (2MG/ML) 20ML VIAL IV ONE (20:53)
[2024-05-28] MEDS: SUCCINYLCHOLINE CHLORIDE 20 MG/ML 10ML VIAL IV ONE (20:54)
[2024-05-28] MEDS: MIDAZOLAM DRIP 50 mg/50mL 50 ML IV ONE (20:56)
[2024-05-28] MEDS: ROCURONIUM 10MG/ML 10ML VIAL IV ONE ×3 (20:59→21:00)
[2024-05-28 21:00] VITALS: BP 143/59; PULSE 126; PULSE 80; RESP 16; RESP 22; TEMP 98; O2SAT 100; O2SAT 95
[2024-05-28] MEDS: MIDAZOLAM DRIP 50 mg/50mL 50 ML IV SCH (21:00)
[2024-05-28] MEDS ORDERED: METOPROLOL TARTRATE 1MG/1ML-5ML VIAL IV SCH (21:30)
[2024-05-28] MEDS: METOPROLOL TARTRATE 1MG/1ML-5ML VIAL IV ONE (21:31)
--- NOTE | 2024-05-28 21:33 | ED.PDOC ---
Altered Mental Status HPI Comments A 68 year old male brought in by EMS presents to the ED with a chief complaint of altered mental status onset 3 days. Per EMS, family noticed the patient was altered for the past 3 days. Upon EMS arrival, patient was unresponsive and only had response with pain stimuli. Patient BS was 68, hypertensive, and multiple runs of v-tach. He has a past medical history of COPD, CHF, CVA, Dementia and HTN. Chief Complaint: ALOC Time Seen by MD: 20:48 Primary Care Provider: UNKNOWN Reviewed Notes: Medications, Allergies Allergies: Coded Allergies: Meperidine (Verified Allergy, Unknown, 04/18/23) Home Meds Active Scripts Sevelamer Hydrochloride (Renagel) 800 Mg Tab, 800 MG PO TIDWM for 30 Days, #90 TAB Prov:DORA DELGADILLO MD 04/03/24 Sodium Bicarbonate (Sodium Bicarbonate) 650 Mg Tab, 650 MG PO QID for 14 Days, #56 TAB Prov:DORA DELGADILLO MD 04/03/24 Levetiracetam (KEPPRA TABLET) 500 Mg Tb, 750 MG PO BID for 30 Days, #90 TAB Prov:DORA DELGADILLO MD 04/03/24 Carvedilol (COREG) 3.125 Mg Tab, 6.25 MG PO Q12HR, #60 TAB Prov:MALCOLM WILLOUGHBY MD 08/21/18 Atorvastatin Calcium (ATORVASTATIN CALCIUM) 20 Mg Tab, 40 MG PO DAILY, #30 TAB Prov:MALCOLM WILLOUGHBY MD 08/21/18 Reported Medications Bumetanide (Bumetanide) 1 Mg Tab, 1 TAB PO DAILY for 30 Days, #30 03/24/24 Metolazone (Metolazone) 10 Mg Tab, 1 TAB PO DAILY for 30 Days, #30 03/24/24 Gabapentin (Gabapentin) 100 Mg Cap, 800 MG PO Q8HR PRN for 30 Days, #90 03/24/24 Hydralazine Hcl (Hydralazine Hcl) 100 Mg Tab, 1 TAB PO Q12HR for 15 Days, #30 03/24/24 Clonidine Hydrochloride (Clonidine Hydrocloride) 0.1 Mg Tab, 0.2 MG PO Q8HR PRN for 30 Days, #90 03/24/24 Lorazepam (Lorazepam) 0.5 Mg Tab, 0.25 MG PO DAILYPRN PRN for ANXIETY, TAB 12/30/23 Ped Multivitamins W/Fl & Iron (Multi-Vit/Iron/Fluoride) /Fl 0.25 August, 1 ML PO DAILY, #100 ML 3 Refills 12/30/23 Sertraline Hcl (Zoloft) 25 Mg Tab, 1 TAB PO DAILY for 30 Days 12/30/23 Hydrocodone-Acetaminophen (Hydrocodone Bitartrate/AC 5-325 mg) 1 Tab Tab, 1 TAB PO QIDPRN PRN for PAIN SCALE 1 THRU 6, TAB 12/30/23 Famotidine (Famotidine) 20 Mg Tab, 1 TAB PO DAILY for 30 Days, #30 12/30/23 Bisacodyl (Dulcolax) 10 Mg Sup, 100 MG PO DAILY, SUPP 12/30/23 Fluticasone Propionate (Nasal) (Fluticasone Propionate Na) 50 Mcg/Act Spr, 1 SPRAY PARKER BID 11/06/23 Memantine HCl (Memantine Hydrochloride) 5 Mg Tab, 1 TAB PO DAILY 11/06/23 Levothyroxine Sodium (Levothyroxine Sodium) 50 Mcg Tab, 1 TAB PO QAM for 30 Days, #30 05/29/23 Apixaban Base (ELIQUIS) 2.5 Mg Tab, 1 TAB PO BID for 30 Days, #60 11/27/22 Amlodipine Besylate (Amlodipine Besylate) 10 Mg Tab, 1 TAB PO DAILY 11/27/22 Information Source: Emergency Med Personnel Mode of Arrival: EMS Severity: Moderate Timing: Days Duration: Since onset Prehospital treatment: 12 Lead EKG, Accucheck, Oxygen Quality: Decreased Alertness, Change in Behavior History of: CVA Past Medical History PAST MEDICAL HISTORY: CHF, CKF, COPD, CVA, High Lipids, HTN, Liver, MS, PE Surgical History: AKA Family History Family History: Unobtainable Social History Smoker: Non-Smoker, Quit Greater Than 1 Year Alcohol: Occasionally Drugs: Denies Drug Use Lives In: Home Unable to Obtain due to: Altered Mental Status All Other Systems: Reviewed and Negative Physical Exam General Appearance: Normal, Severe Distress HEENT: Normal ENT Inspection, Pharynx Normal, TMs Normal Neck: Full Range of Motion, Non-Tender, Normal, Normal Inspection Respiratory: Decreased Breath Sounds, Rales (bilateral), Respiratory Distress, Wheezing Cardiovascular: No Edema, No JVD, No Murmur, No Gallop, Normal Peripheral Pulses, Regular Rate/Rhythm Breast Exam: Deferred Gastrointestinal: LLQ (with colostomy bag ) Genitalia: Deferred Pelvic: Other (suprapubic catheter) Rectal: Deferred Extremities: Other (RT above knee amputation ) Musculoskeletal : Apperance: Normal Neurologic: Alert, veterans' coordinator II-XII nml as Tested, No Motor Deficits, Normal Affect, Normal Mood, No Sensory Deficits Cerebellar Function: Normal Reflexes: Normal Skin: Dry, Normal Color, Warm Lymphatic: No Adenopathy EKG EKG #1: [place]: Normal Cardiac Rhythm: NSR (97 bpm) Hypertrophy: LVH ST: Ant Comments LVH with secondary repolarization abnormality EKG #2: [place]: Normal Cardiac Rhythm: NSR (88) Block: IVCD Hypertrophy: LVH Comments nonspecific IVCD WITH LAD, LVH with secondary repolarization abnormality Was a procedure done? Was a procedure done?: Yes Sedation Sedation?: No Sedation start time: 20:53 Sedation end time: 21:17 Sedation total time: 24 minutes Central Line Recorder of insertion practice: Photo Stylist Occupation of data recovery planner: Attending Physician Indication: Volume resuscitation, Inability to obtain IV Room prepared for procedure: Yes Photo Stylist performed hand hygien: Yes Maximal sterile barrier precau: Mask/Eye shield, Sterile gown, Cap, Sterlie gloves, Large sterlie drape Skin Preparation: Chlorhexidine gluconate, Providine iodine Skin preparation completely dr: Yes Insertion site: Right, Internal jugular Central line catheter type: Oqe-[id number]-uod dialysis Number of lumens: 3 Central line exchanged over a: No Antiseptic ointment applied to: No Post Assessment: Chest X-Ray, Proper placement Informed consent obtained: No Risks/benefits/alt described: No Intubation Indication: Altered Mental Status Prep: Preoxygenation Medicated with: Succinylcholine, Other (Etomidate) Intubation Approach: Orotracheal (7.0) Intubation size: cm (24 ) Informed consent obtained: No Risks/benefits/alt described: No Differential Diagnosis (ALOC) Differential Diagnosis: DKA, Encephalopathy, Sepsis, Heart Failure, Other (pna) X-Ray, Labs, Meds, VS Vital Signs Date Time Temp Pulse Resp B/P (MAP) Pulse Ox O2 Delivery O2 Flow Rate FiO2 05/28/24 21:56 88 05/28/24 21:06 98.0 103 15 177/82 (113) 93 05/28/24 21:00 169/91 05/28/24 20:59 97 05/28/24 20:55 101 16 169/91 (117) 100 60 Lab Test 05/28/24 22:33 05/28/24 22:15 05/28/24 21:43 Range/Units Blood Gas Specimen Type Arterial Blood Gas Sample Site Right brachial Blood Gas Patient Temperature 37.0 Arterial Blood Date Drawn [id number] Arterial Blood pH 7.059 *L 7.350-7.450 Arterial Blood Partial Pressure CO2 45.4 35.0-48.0 mmHg Arterial Blood Partial Pressure O2 72.0 L 83.0-108.0 mmHg Arterial Blood HCO3 12.5 L 21.0-28.0 mmol/L Arterial Blood Oxygen Saturation 88.3 L 94.0-98.0 % Arterial Blood Base Excess -16.5 L -2.0-3.0 mmol/L Arterial Blood Oxyhemoglobin 86.7 L 94.0-98.0 % Arterial Blood Carboxyhemoglobin 1.1 0.5-1.5 % Arterial Blood Methemoglobin 0.7 0.0-1.5 % Bruno Test N/a Blood Gas Total Hemoglobin 6.80 *L 13.5-17.5 g/dL Blood Gas Set Respiration Rate 16.0 Blood Gas Modality Vent - ac FiO2 % 60.0 Blood Gas Tidal Volume 500.0 Blood Gas PEEP or CPAP 5.0 Blood Gas Critical Value Read Back Yes Blood Gas Notified Whom gaetano Rizzo md Blood Gas Notified Time [id number] Blood Gas Notified By Inspector Of Dredging catalina kim Troponin I High Sensitivity 140 *H 145 *H </=54 ng/L White Blood Count 10.3 4.4-10.8 10^3/uL Red Blood Count 2.02 L 4.5-5.90 10^6/uL Hemoglobin 6.5 *L 13.5-17.5 g/dL Hematocrit 21.0 L 41.0-53.0 % Mean Corpuscular Volume 103.7 H 80.0-100.0 fL Mean Corpuscular Hemoglobin 32.0 28.0-32.0 pg Mean Corpuscular Hemoglobin Concent 30.8 L 32.0-36.0 g/dL Red Cell Distribution Width 17.3 H 11.8-14.3 % Platelet Count 144 140-450 10^3/uL Mean Platelet Volume 7.1 6.9-10.8 fL Neutrophils (%) (Auto) 37.0-80.0 % Lymphocytes (%) (Auto) 10.0-50.0 % Monocytes (%) (Auto) 0.0-12.0 % Basophils (%) (Auto) 0.0-2.0 % Neutrophils # (Auto) 1.6-8.6 10 ^3/uL Lymphocytes # (Auto) 0.4-5.4 10 ^3/uL Monocytes # (Auto) 0-1.3 10 ^3/uL Differential Total Cells Counted Pending Neutrophils % (Manual) Pending Band Neutrophils % (Manual) Pending Lymphocytes % (Manual) Pending Monocytes % (Manual) Pending Eosinophils % (Manual) Pending Basophils % (Manual) Pending Metamyelocytes % (manual) Pending Myelocytes % (Manual) Pending Promyelocytes % (Manual) Pending Blast Cells % (Manual) Pending Reactive Lymphocytes Pending Platelet Estimate Pending Prothrombin Time 11.6 9.3-11.8 sec Prothrombin Time INR 1.10 0.9-1.15 Activated Partial Thromboplast Time 33.5 24.5-34.5 SEC Sodium Level 150 H 136-145 mmol/L Potassium Level 5.3 H 3.5-5.1 mmol/L Chloride Level 120 H 98-107 mmol/L Carbon Dioxide Level 13 L 20-31 mmol/L Anion Gap 17 H 5-15 Blood Urea Nitrogen 107 *H 9-23 mg/dL Creatinine 8.37 H 0.700-1.30 mg/dL Glomerular Filtration Rate Calc 6 >90 mL/min BUN/Creatinine Ratio 12.8 10.0-20.0 Serum Glucose 52 L 74-106 mg/dL Lactic Acid Level 0.6 0.4-2.0 mmol/L Calcium Level 9.7 8.7-10.4 mg/dL Magnesium Level 2.5 1.6-2.6 mg/dL Total Bilirubin < 0.2 L 0.2-1.0 mg/dL Aspartate Amino Transferase (AST) 19 13-40 U/L Alanine Aminotransferase (ALT) < 9 7-40 U/L Alkaline Phosphatase 79 46-116 U/L B-Type Natriuretic Peptide 1188.79 0-100 pg/mL Total Protein 7.0 5.7-8.2 g/dL Albumin 2.9 L 3.2-4.8 g/dL Current Medications Medications (Trade) Dose Ordered Sig/[place] Route Start Time Stop Time Status Last Admin Etomidate 20 mg ONCE ONCE IV 05/28/24 21:15 05/28/24 21:16 DC 05/28/24 20:53 Succinylcholine Chloride (Quelicin) 100 mg ONCE ONCE IV 05/28/24 21:15 05/28/24 21:16 DC 05/28/24 20:54 Rocuronium [place] 50 mg ONCE ONCE IV 05/28/24 21:15 05/28/24 21:16 DC 05/28/24 21:00 Sodium Chloride 2,000 ml @ 1,000 mls/hr Q2H ONCE IV 05/28/24 21:30 05/28/24 23:29 05/28/24 21:58 [place] [id number] Ph: [phone] DIAGNOSTIC IMAGING Diagnostic Imaging Report : [id number] Signed PATIENT: FERNANDO HIGH ACCT: [id number] UNIT: [id number] : 1955 LOC: ER ROOM / BED: / AGE / SEX: 68 / M ADM STATUS: REG ER SERVICE 03 ORDERING PHYSICIAN: JUVENAL RIZZO MD PROCEDURE(s): CXRP - CHEST PORTABLE REASON: S/P INTUBATION ORDER NUMBER(s): [id number], ACCESSION NUMBER(s): [id number] EXAM: XY CHEST PORTABLE CLINICAL HISTORY: S/P INTUBATION TECHNIQUE: Single AP view of the chest WID: COMPARISON: XY CHEST PORTABLE on DOS: 03/29/24 FINDINGS: Lines and tubes: Right IJ central venous catheter with the tip projecting over the low SVC. Endotracheal tube projects 8 cm above the chacho. Bilateral rods project over the lower thoracic spine. Chest: Mild cardiomegaly and mild pulmonary vascular congestion. Layering bilateral pleural effusions. Patchy mixed opacities bilaterally. No pneumothorax The osseous structures are grossly intact. IMPRESSION: 1. Endotracheal tube projects 8 cm above the chacho. Right IJ central venous catheter projects over the low SVC. 2. Mild cardiomegaly and mild pulmonary vascular congestion. 3. Layering bilateral pleural effusions and patchy mixed opacities bilaterally which could reflect atelectasis, pulmonary edema, or multifocal pneumonia. ATED BY: SHYANNE FERNÁNDEZ MD DICTATED DATE/TIME: 05/28/242224 SIGNED BY: SHYANNE FERNÁNDEZ MD SIGNED DATE/TIME: 05/28/242224 CC: The patient was in respiratory distress with diminished breath sounds in altered level of consciousness, oriented times 0. Intubation and central line was placed. Patient developed sinus tach at 1:27 a.m. and was given metoprolol 5 mg q.5h minutes x3. The patient has a colostomy placed in the left lower quadrant. He has a suprapubic Peralta catheter which seemed to be infected and cloudy. Sepsis protocol was carried out with Zosyn vancomycin chest x-ray lactic acid and IV fluids. High carbon ABG is 12.5. Two hundred mEq of bicarb was administered. Troponin was 140 and 145. EKG shows no signs of ischemia. Hemoglobin is 6.5. Type and screen was ordered along with 2 units packed red blood cells to be transfused. Brain CT is pending BUN is 107. Creatinine is 8.4. BNP is 1188. UA is pending. Chest x-ray shows cardiomegaly with pulmonary vascular congestion in later bilateral pleural effusion with opacities Time of 1ST Reevaluation: 21:18 Reevaluation 1ST: Unchanged Patient Education/Counseling: Pt Unresponsive Family Education/Counseling: No Family Present Departure 1 Departure Time of Disposition: 23:07 Impression: Primary Impression: Altered mental status Qualified Codes: R41.82 - Altered mental status, unspecified Additional Impressions: Metabolic encephalopathy Respiratory insufficiency Sepsis Qualified Codes: A41.9 - Sepsis, unspecified organism; R65.20 - Severe sepsis without septic shock; J96.02 - Acute respiratory failure with hypercapnia Urinary tract infection Qualified Codes: N39.0 - Urinary tract infection, site not specified; R31.9 - Hematuria, unspecified Sinus tachycardia Pneumonia Qualified Codes: J18.9 - Pneumonia, unspecified organism Pleural effusion End stage renal disease CHF (congestive heart failure) Qualified Codes: I50.9 - Heart failure, unspecified Disposition: 09 ADMITTED INPATIENT Admit to: ICU Condition: Critical Critical Care Note Critical Care Time?: Yes (1 hr-critical care time only) Stability Stability form required: No I personally scribed for JUVENAL RIZZO MD ([email or web address]) on 05/28/24 at 21:33. Electronically submitted by Katrin Trinh ([email or web address]). I personally scribed for JUVENAL RIZZO MD ([email or web address]) on 05/28/24 at 21:39. Electronically submitted by Katrin Trinh ([email or web address]). I personally scribed for JUVENAL RIZZO MD ([email or web address]) on 05/28/24 at 22:00. Electronically submitted by Katrin Trinh ([email or web address]). I personally scribed for JUVENAL RIZZO MD ([email or web address]) on 05/28/24 at 22:35. Electronically submitted by Katrin Trinh ([email or web address]). JUVENAL RIZZO MD May 28, 2024 21:33
[2024-05-28] MEDS: METOPROLOL TARTRATE 1MG/1ML-5ML VIAL IV SCH (21:35)
[2024-05-28] MEDS: SODIUM CHLORIDE 0.9% 2,000 ML IV ONE (21:58)
[2024-05-28 22:02] LABS: Mean Corpuscular Hgb Conc. 30.8 g/dL (32.0-36.0); Mean Corpuscular Volume 103.7 fL (80.0-100.0); Platelet Count (auto) 144 10^3/uL (140-450); Red Blood Cells 2.02 10^6/uL (4.5-5.90); Red Cell Distribution Width 17.3 % (11.8-14.3); White Blood Cell 10.3 10^3/uL (4.4-10.8)
[2024-05-28 22:15] LABS: Albumin 2.9 g/dL (3.2-4.8); Alkaline Phosphatase 79 U/L (46-116); Anion Gap 17 (5-15); Aspartate Aminotransferase 19 U/L (13-40); BUN/Creatinine Ratio 12.8 (10.0-20.0); Bilirubin, Total < 0.2 mg/dL (0.2-1.0); Calcium 9.7 mg/dL (8.7-10.4); Carbon Dioxide 13 mmol/L (20-31); Chloride 120 mmol/L (98-107); Glucose 52 mg/dL (74-106); Magnesium 2.5 mg/dL (1.6-2.6); Potassium 5.3 mmol/L (3.5-5.1); Sodium 150 mmol/L (136-145)
[2024-05-28 22:18] LABS: Alanine Aminotransferase < 9 U/L (7-40)
[2024-05-28 22:20] LABS: Blood Urea Nitrogen 107 mg/dL (9-23); INR 1.1 (0.9-1.15); Partial Thromboplastin Time 33.5 SEC (24.5-34.5); Prothrombin Time 11.6 sec (9.3-11.8)
[2024-05-28 22:22] LABS: Basophils % (manual) 0 (0.0-2.0); Blast Cells 0; Myelocytes % 0; Promyelocytes % 0; Reactive Lymphocytes 0
--- NOTE | 2024-05-28 22:28 | DVH ---
EXAM: XY CHEST PORTABLE CLINICAL HISTORY: S/P INTUBATION TECHNIQUE: Single AP view of the chest WID: COMPARISON: XY CHEST PORTABLE on DOS: 03/29/24 FINDINGS: Lines and tubes: Right IJ central venous catheter with the tip projecting over the low SVC. Endotrach eal tube projects 8 cm above the chacho. Bilateral rods project over the lower thoracic spine. Chest: Mild cardiomegaly and mild pulmonary vascular congestion. Layering bilateral pleural effusions. Patchy mixed opacities bilaterally. No pneumothorax The osseous structures are grossly intact. IMPRESSION: 1. Endotracheal tube projects 8 cm above the chacho. Right IJ central venous catheter projects over the low SVC. 2. Mild cardiomegaly and mild pulmonary vascular congestion. 3. Layering bilateral pleural effusions and patchy mixed opacities bilaterally which could reflect at electasis, pulmonary edema, or multifocal pneumonia.
[2024-05-28 22:49] LABS: Base Excess -16.5 mmol/L (-2.0-3.0)
[2024-05-28 22:50] VITALS: BP 143/59; PULSE 80; RESP 16; O2SAT 100
--- NOTE | 2024-05-28 22:53 | DVH ---
EXAM: CT HEAD WITHOUT CONTRAST INDICATION: aloc TECHNIQUE: CT of the head without intravenous contrast. Radiation Dose Information: CT Dose: CTDI volume is 58.28 mGy. Dose-length product is 1148.44 mGy*cm The dose indicators for CT are the volume Computed Tomography (CT) Dose Index (CTDIvol) and the Dose Length Product (DLP), and are measured in units of mGy and mGy-cm, respectively. These indicators are not patient dose, but values generated from the CT scanner acquisition factors. The report includes radiation exposure data for exposures received during this examination. COMPARISON: MRI BRAIN HEAD WO CONTRAST on DOS: 03/29/24, CT HEAD WITHOUT CONTRAST on DOS: 03/28/24, MRI BRAIN HEAD WO CONTRAST on DOS: 03/23/24 FINDINGS: There is no evidence of acute intracranial hemorrhage, extra-axial collection, mass effect, midline s hift, herniation or hydrocephalus. Area of encephalomalacia right frontal lobe unchanged from 03/28/2024. Small area of encephalomalacia in the right parietal-occipital lobe. The ventricles, sulci and cisterns are age appropriate. The laboy-white differentiation is intact. Patchy periventricular and subcortical white matter hypoattenuation is nonspecific but may be related to small vessel ischemic disease. The visualized paranasal sinuses and mastoid air cells are clear. The surrounding soft tissues and osseous structures are unremarkable. IMPRESSION: 1. No acute intracranial hemorrhage. 2. No significant change from 03/28/2024 with areas of old infarct in the right frontal lobe and righ t parietal occipital lobe.
[2024-05-28 23:02] LABS: Band Neutrophils % (manual) 3; Eosinophils % (manual) 1 (0-7); Lymphocytes % (manual) 22 (10.0-50.0); Metamyelocytes % 1; Monocytes % (manual) 5 (0-12); Platelet Estimate Adequate
[2024-05-28 23:03] LABS: Anisocytosis Slight; Macrocytosis Slight
[2024-05-28] MEDS: VANCOMYCIN 1GM/250ML KIT 200 ML IV ONE (23:17)
[2024-05-28 23:18] LABS: Urine Bacteria MOD /hpf (None Seen); Urine Blood 1+ /uL (Negative); Urine Clarity Ex.Turbid (Clear); Urine Color Dark-Brown (Yellow); Urine Protein, UAD 2+ (Negative); Urine Specific Gravity 1.017 (1.001-1.035); Urine Squamous Epithelial Cell MANY /hpf (<5); Urine Urobilinogen Normal (Negative); Urine WBC 3664 /hpf (0 - 3); Urine WBC Clumps PRESENT /hpf (None Seen)
[2024-05-28] MEDS: PIPERACILLIN-TAZOB 3.375GM 100 ML IV ONE (23:18)
[2024-05-28] MEDS: SODIUM BICARB 8.4% 50Meq/50ml SYR Vial IV ONE (23:40)
--- NOTE | 2024-05-28 23:56 | DVHHP2 ---
History of Present Illness Reason for Visit: Altered mental status History of Present Illness 68-year-old male presents for evaluation of altered mental status. Patient was noted by family members becoming progressively more altered over the past three days. On arrival patient was unresponsive and had to be emergently intubated for airway protection. No further history could be obtained at the moment. Past Medical History Chronic kidney disease, CHF, COPD, dyslipidemia, hypertension, CVA, liver disease, mi Past Surgical History Right AKA, partial left foot amputation Family History Unknown Smoke: No ALCOHOL: occassional Drugs: None Review of Systems Review of Systems Review of systems can not be completed patient is sedated and intubated. Allergies: Coded Allergies: Meperidine (Verified Allergy, Unknown, 04/18/23) Medications Current Medications Medications Dose Ordered Sig/[place] Route Start Time Stop Time Status Last Admin Dose Admin Midazolam HCl 50 ml @ 1 mls/hr Q24H IV 05/28/24 21:15 05/28/24 21:00 1 MLS/HR Metoprolol Tartrate 5 mg Q5M IV 05/28/24 21:30 Aspirin 162 mg DAILY PO 05/29/24 10:00 UNV Vancomycin HCl 0 ml @ 0 mls/hr UD IV 05/29/24 00:00 UNV Piperacillin Sod/ Tazobactam Sod 100 ml @ 25 mls/hr Q8HR IV 05/29/24 06:00 UNV Albuterol 2.5 mg Q6HPRN PRN NEB 05/29/24 00:00 UNV Furosemide 20 mg BIDD IV 05/29/24 06:00 UNV Ondansetron HCl 4 mg Q4HP PRN IV 05/29/24 00:00 UNV Acetaminophen 650 mg Q6HP PRN PO 05/29/24 00:00 UNV Nitroglycerin 0.4 mg Q5MINP PRN SL 05/29/24 00:00 UNV Morphine Sulfate 2 mg Q30M PRN IV 05/29/24 00:00 UNV Exam Vital Signs Vital Signs Date Time Temp Pulse Resp B/P (MAP) Pulse Ox O2 Delivery O2 Flow Rate FiO2 05/28/24 22:50 80 16 143/59 (87) 100 80 05/28/24 21:06 98.0 Exam Gen: 68-year-old male in mild distress Skin: Warm, dry, normal color and texture, no rash. HEENT: Normocephalic atraumatic, mucous membranes moist and pink. Neck: Cervical and supraclavicular nodes normal without enlargement, trachea is midline, thyroid gland is normal without masses. Pulmonary: Clear to auscultation and percussion bilaterally. Cardiac: Intubated, bilateral rhonchi Abdomen: Soft, nontender, nondistended, bowel sounds present all 4 quadrants, no guarding, no rigidity, no organomegaly. Extremities: No cyanosis, clubbing, right AKA Neuro: Sedated Labs/Xrays ORDERING PHYSICIAN: JUVENAL RIZZO MD PROCEDURE(s): CXRP - CHEST PORTABLE REASON: S/P INTUBATION ORDER NUMBER(s): [id number], ACCESSION NUMBER(s): [id number] EXAM: XY CHEST PORTABLE CLINICAL HISTORY: S/P INTUBATION TECHNIQUE: Single AP view of the chest WID: COMPARISON: XY CHEST PORTABLE on DOS: 03/29/24 FINDINGS: Lines and tubes: Right IJ central venous catheter with the tip projecting over the low SVC. Endotracheal tube projects 8 cm above the chacho. Bilateral rods project over the lower thoracic spine. Chest: Mild cardiomegaly and mild pulmonary vascular congestion. Layering bilateral pleural effusions. Patchy mixed opacities bilaterally. No pneumothorax The osseous structures are grossly intact. IMPRESSION: 1. Endotracheal tube projects 8 cm above the chacho. Right IJ central venous catheter projects over the low SVC. 2. Mild cardiomegaly and mild pulmonary vascular congestion. 3. Layering bilateral pleural effusions and patchy mixed opacities bilaterally which could reflect atelectasis, pulmonary edema, or multifocal pneumonia. RING PHYSICIAN: JUVENAL RIZZO MD PROCEDURE(s): HWOCT - HEAD WITHOUT CONTRAST REASON: aloc ORDER NUMBER(s): [id number], ACCESSION NUMBER(s): [id number] EXAM: CT HEAD WITHOUT CONTRAST INDICATION: aloc TECHNIQUE: CT of the head without intravenous contrast. Radiation Dose Information: CT Dose: CTDI volume is 58.28 mGy. Dose-length product is 1148.44 mGy*cm The dose indicators for CT are the volume Computed Tomography (CT) Dose Index (CTDIvol) and the Dose Length Product (DLP), and are measured in units of mGy and mGy-cm, respectively. These indicators are not patient dose, but values generated from the CT scanner acquisition factors. The report includes radiation exposure data for exposures received during this examination. COMPARISON: MRI BRAIN HEAD WO CONTRAST on DOS: 03/29/24, CT HEAD WITHOUT CONTRAST on DOS: 03/28/24, MRI BRAIN HEAD WO CONTRAST on DOS: 03/23/24 FINDINGS: There is no evidence of acute intracranial hemorrhage, extra-axial collection, mass effect, midline shift, herniation or hydrocephalus. Area of encephalomalacia right frontal lobe unchanged from 03/28/2024. Small area of encephalomalacia in the right parietal-occipital lobe. The ventricles, sulci and cisterns are age appropriate. The laboy-white differentiation is intact. Patchy periventricular and subcortical white matter hypoattenuation is nonspecific but may be related to small vessel ischemic disease. The visualized paranasal sinuses and mastoid air cells are clear. The surrounding soft tissues and osseous structures are unremarkable. IMPRESSION: 1. No acute intracranial hemorrhage. 2. No significant change from 03/28/2024 with areas of old infarct in the right frontal lobe and right parietal occipital lobe. Labs Test 05/28/24 22:36 05/28/24 22:33 05/28/24 22:15 05/28/24 21:43 Range/Units Urine Color Dark-brown Yellow Urine Clarity Ex.turbid Clear Urine pH 6.0 5.0-9.0 Urine Specific [place] 1.017 1.001-1.035 Urine Protein 2+ H Negative Urine Ketones Trace Negative Urine Blood 1+ H Negative /uL Urine Nitrite Negative Negative Urine Bilirubin Negative Negative Urine Urobilinogen Normal Negative mg/dL Urine Leukocyte Esterase 3+ Negative /uL Urine RBC 56 0 - 3 /hpf Urine WBC 3664 0 - 3 /hpf Urine WBC Clumps Present None Seen /hpf Urine Squamous Epithelial Cells Many <5 /hpf Urine Bacteria Mod H None Seen /hpf Urine Glucose Normal Normal mg/dL Blood Gas Specimen Type Arterial Blood Gas Sample Site Right brachial Blood Gas Patient Temperature 37.0 Arterial Blood Date Drawn [id number] Arterial Blood pH 7.059 *L 7.350-7.450 Arterial Blood Partial Pressure CO2 45.4 35.0-48.0 mmHg Arterial Blood Partial Pressure O2 72.0 L 83.0-108.0 mmHg Arterial Blood HCO3 12.5 L 21.0-28.0 mmol/L Arterial Blood Oxygen Saturation 88.3 L 94.0-98.0 % Arterial Blood Base Excess -16.5 L -2.0-3.0 mmol/L Arterial Blood Oxyhemoglobin 86.7 L 94.0-98.0 % Arterial Blood Carboxyhemoglobin 1.1 0.5-1.5 % Arterial Blood Methemoglobin 0.7 0.0-1.5 % Bruno Test N/a Blood Gas Total Hemoglobin 6.80 *L 13.5-17.5 g/dL Blood Gas Set Respiration Rate 16.0 Blood Gas Modality Vent - ac FiO2 % 60.0 Blood Gas Tidal Volume 500.0 Blood Gas PEEP or CPAP 5.0 Blood Gas Critical Value Read Back Yes Blood Gas Notified Whom gaetano Rizzo md Blood Gas Notified Time [id number] Blood Gas Notified By Director Volunteer Services catalina kim Troponin I High Sensitivity 140 *H </=54 ng/L White Blood Count 10.3 4.4-10.8 10^3/uL Red Blood Count 2.02 L 4.5-5.90 10^6/uL Hemoglobin 6.5 *L 13.5-17.5 g/dL Hematocrit 21.0 L 41.0-53.0 % Mean Corpuscular Volume 103.7 H 80.0-100.0 fL Mean Corpuscular Hemoglobin 32.0 28.0-32.0 pg Mean Corpuscular Hemoglobin Concent 30.8 L 32.0-36.0 g/dL Red Cell Distribution Width 17.3 H 11.8-14.3 % Platelet Count 144 140-450 10^3/uL Mean Platelet Volume 7.1 6.9-10.8 fL Neutrophils (%) (Auto) 37.0-80.0 % Lymphocytes (%) (Auto) 10.0-50.0 % Monocytes (%) (Auto) 0.0-12.0 % Basophils (%) (Auto) 0.0-2.0 % Neutrophils # (Auto) 1.6-8.6 10 ^3/uL Lymphocytes # (Auto) 0.4-5.4 10 ^3/uL Monocytes # (Auto) 0-1.3 10 ^3/uL Differential Total Cells Counted 100.0 100 Neutrophils % (Manual) 68 37.0-80.0 Band Neutrophils % (Manual) 3 Lymphocytes % (Manual) 22 10.0-50.0 Monocytes % (Manual) 5 0-12 Eosinophils % (Manual) 1 0-7 Basophils % (Manual) 0 0.0-2.0 Metamyelocytes % (manual) 1 Myelocytes % (Manual) 0 Promyelocytes % (Manual) 0 Blast Cells % (Manual) 0 Reactive Lymphocytes 0 Platelet Estimate Adequate Anisocytosis (manual) Slight Macrocytosis Slight Prothrombin Time 11.6 9.3-11.8 sec Prothrombin Time INR 1.10 0.9-1.15 Activated Partial Thromboplast Time 33.5 24.5-34.5 SEC Sodium Level 150 H 136-145 mmol/L Potassium Level 5.3 H 3.5-5.1 mmol/L Chloride Level 120 H 98-107 mmol/L Carbon Dioxide Level 13 L 20-31 mmol/L Anion Gap 17 H 5-15 Blood Urea Nitrogen 107 *H 9-23 mg/dL Creatinine 8.37 H 0.700-1.30 mg/dL Glomerular Filtration Rate Calc 6 >90 mL/min BUN/Creatinine Ratio 12.8 10.0-20.0 Serum Glucose 52 L 74-106 mg/dL Lactic Acid Level 0.6 0.4-2.0 mmol/L Calcium Level 9.7 8.7-10.4 mg/dL Magnesium Level 2.5 1.6-2.6 mg/dL Total Bilirubin < 0.2 L 0.2-1.0 mg/dL Aspartate Amino Transferase (AST) 19 13-40 U/L Alanine Aminotransferase (ALT) < 9 7-40 U/L Alkaline Phosphatase 79 46-116 U/L B-Type Natriuretic Peptide 1188.79 0-100 pg/mL Total Protein 7.0 5.7-8.2 g/dL Albumin 2.9 L 3.2-4.8 g/dL Assessment/Plan Assessment/Plan Assessment Sepsis Acute respiratory failure, intubated Acute on chronic renal failure Acute metabolic encephalopathy Urinary tract infection Bilateral pneumonia Congestive heart failure Elevated troponin Anemia Decubitus ulcer Plan Admit the patient to ICU to the hospitalist Nephrology consultation Cardiology consult Wound consult Transfuse 1 unit of packed red cells Resume home medications Continue treatment per orders. Total critical care time excluding procedures performed is 55 minutes. Plan discussed with: Patient My Orders Orders - HOLGER BURDICK Procedure Category Date Status Time *Dr. [facility] CONS 05/28/24 Transmitted -[place] 23:46 * Cardiology Consult CONS 05/28/24 Transmitted 23:46 Aspirin Tablet PHA 05/29/24 Logged 10:00 Packedcell-Noactive BBK 05/28/24 Logged Bleeding 23:46 Type And Screen BBK 05/28/24 Logged 23:46 Vancomycin Per PHA 05/29/24 Logged Pharmacy 00:00 Piperacillin-Tazob PHA 05/29/24 Logged 3.375gm (Zosyn 3.375g 06:00 Stool Occult Blood LAB 05/28/24 Logged 23:46 Albuterol Medneb PHA 05/29/24 Logged (Ventolin Medneb) 00:00 Wound Culture W/ Gs SUZANNA 05/28/24 Logged 23:46 Furosemide Injection PHA 05/29/24 Logged (Lasix Injection) 00:00 Furosemide Injection PHA 05/29/24 Logged (Lasix Injection) 06:00 Admit ADMIT 05/28/24 Transmitted 23:46 Ondansetron Hcl PHA 05/29/24 Logged (Zofran) 00:00 Complete Blood Count LAB 05/29/24 Verified 04:00 Comprehensive LAB 05/29/24 Verified Metabolic Panel 04:00 Condition: Unstable SUZAN 05/28/24 In Process 23:46 Acetaminophen Tablet PHA 05/29/24 Logged (Tylenol Tablet) 00:00 Maintain Bed Rest SUZAN 05/28/24 In Process 23:46 Sequential SUZAN 05/28/24 In Process Compression Device Nitroglycerin PHA 05/29/24 Logged Sublingual (Ntrostat 00:00 Morphine Sulfate PHA 05/29/24 Logged Injection 00:00 Stat Ekg For Chest SUZAN 05/28/24 In Process Pain 23:46 Notify Of Changes SUZAN 05/28/24 In Process From Base 23:46 Brewing Director For SUZAN 05/28/24 In Process 24 Hours 23:46 Emergency Dysrhythmia SUZAN 05/28/24 In Process Protocol 23:46 Rhythm Strips Once SUZAN 05/28/24 In Process Every Shift 23:46 Oxygen By Nasal RT 05/28/24 Transmitted Cannula 23:46 Date of Service: May 28, 2024 Billing Provider: HOLGER BURDICK Common Visit Codes: [id number] CARE 30-74 MIN HOLGER BURDICK May 28, 2024 23:56
[2024-05-29] VITALS (78 sets, daily range): BP systolic 57–156; BP diastolic 42–71; PULSE 61–91; RESP 16–21; TEMP 96.8–98.3; O2SAT 91–100
[2024-05-29] MEDS ORDERED: ACETAMINOPHEN 325 MG TAB PO PRN
[2024-05-29] MEDS: FUROSEMIDE 40 MG/4 ML VIAL IV ONE
[2024-05-29] MEDS ORDERED: VANCOMYCIN PER PHARMACY 0 MG IV SCH
[2024-05-29] MEDS ORDERED: ONDANSETRON HCL 4 MG/2 ML VIAL IV PRN
[2024-05-29] MEDS ORDERED: NITROGLYCERIN 0.4 MG SL TAB SL PRN
[2024-05-29] MEDS ORDERED: MORPHINE SULFATE INJ 2 MG/ml SYRG IV PRN
[2024-05-29] MEDS: fentaNYL Drip 2500mCg/250mlNS 250 ML IV SCH (01:48)
[2024-05-29] MEDS: DEXTROSE 50% SYRINGE 50 ML IV ONE (02:55)
[2024-05-29] MEDS: DEXTROSE (50%) 50ML SYRG IV ONE (03:00)
--- NOTE | 2024-05-29 03:54 | DVH ---
CHEST RADIOGRAPH Indication:NG TUBE PLACEMENT Technique: Single AP view of the chest WID: Comparison: XY CHEST PORTABLE on DOS: 05/28/24, XY CHEST PORTABLE on DOS: 03/29/24, XY CHEST PORTABLE on DOS: 03/28/24, XY CHEST XRAY 1 VIEW on DOS: 03/25/24, XY CHEST XRAY 1 VIEW on DOS: 03/21/24, XY CHEST PORTABLE on DOS: 05/28/24 FINDINGS: Lines and tubes: Right IJ central venous catheter with the tip projecting over the low SVC. Endotrach eal tube projects 7 cm above the chacho. Bilateral rods project over the lower thoracic spine. NG tub e tip in stomach. Chest: Mild cardiomegaly and mild pulmonary vascular congestion. Layering bilateral pleural effusions. Patchy mixed opacities bilaterally. No pneumothorax The osseous structures are grossly intact. IMPRESSION: 1. Mild cardiomegaly and mild pulmonary vascular congestion. 2. Layering bilateral pleural effusions and patchy mixed opacities bilaterally which could reflect at electasis, pulmonary edema, or multifocal pneumonia. 3. Lines and tubes as above
--- NOTE | 2024-05-29 05:44 | ECG ---
[facility] Test Date: 2024-05-28 Test Time: 20:59:37 Pat Name: FERNANDO HIGH Department: ER Room: [address] [place] [address] Gender: M Information Security Consultant: RENEE : 1955 Requested By: JUVENAL RIZZO Order Number: [id number] Reading MD: Malik Boucher Measurements Intervals [place] Rate: 97 P: -39 IN: 134 QRS: -44 QRSD: 94 T: 143 QT: 347 QTc: 441 Interpretive Statements Sinus rhythm Ventricular premature complex LVH with secondary repolarization abnormality Anterior infarct, old Electronically Signed On 06-05-2024 13:07:22 PST by Malik Boucher Please click the below link to view image of tracing.
--- NOTE | 2024-05-29 05:44 | ECG ---
[facility] Test Date: 2024-05-28 Test Time: 21:56:00 Pat Name: FERNANDO HIGH Department: ER Room: [address] [place] [address] Gender: M Social Science Instructor: RENEE : 1955 Requested By: JUVENAL RIZZO Order Number: [id number] Reading MD: Malik Boucher Measurements Intervals [place] Rate: 88 P: 43 MO: 180 QRS: -42 QRSD: 116 T: 122 QT: 386 QTc: 467 Interpretive Statements Sinus rhythm Nonspecific IVCD with LAD LVH with secondary repolarization abnormality Anterior infarct, old Electronically Signed On 06-05-2024 13:07:38 PST by Malik Boucher Please click the below link to view image of tracing.
[2024-05-29] MEDS: DEXTROSE 10% 1,000 ML IV SCH (06:23)
[2024-05-29] MEDS: FUROSEMIDE 20 MG/2 ML VIAL IV SCH (06:24)
[2024-05-29 09:09] LABS: Albumin 2.4 g/dL (3.2-4.8); Alkaline Phosphatase 60 U/L (46-116); Anion Gap 17 (5-15); Aspartate Aminotransferase 16 U/L (13-40); BUN/Creatinine Ratio 13.1 (10.0-20.0); Bilirubin, Total 0.2 mg/dL (0.2-1.0); Carbon Dioxide 16 mmol/L (20-31); Chloride 122 mmol/L (98-107); Glucose 82 mg/dL (74-106); Potassium 4.7 mmol/L (3.5-5.1); Total Protein 5.7 g/dL (5.7-8.2)
[2024-05-29 09:12] LABS: Mean Corpuscular Volume 97.2 fL (80.0-100.0); Platelet Count (auto) 95 10^3/uL (140-450); White Blood Cell 4.6 10^3/uL (4.4-10.8)
[2024-05-29 09:15] LABS: Alanine Aminotransferase < 9 U/L (7-40); Sodium 155 mmol/L (136-145)
[2024-05-29 09:16] LABS: Blood Urea Nitrogen 105 mg/dL (9-23)
[2024-05-29 09:17] LABS: Mean Corpuscular Hemoglobin 30.6 pg (28.0-32.0); Mean Corpuscular Hgb Conc. 31.4 g/dL (32.0-36.0); Red Blood Cells 1.96 10^6/uL (4.5-5.90); Red Cell Distribution Width 17.7 % (11.8-14.3)
[2024-05-29 09:37] LABS: Basophils % (manual) 0 (0.0-2.0); Blast Cells 0; Metamyelocytes % 0; Myelocytes % 0; Promyelocytes % 0; Reactive Lymphocytes 0
[2024-05-29] MEDS: ASPirin 81 mg TAB PO SCH (10:00)
[2024-05-29] MEDS: cefTRIAXone 2GM/50ML D5W 50 ML IV ONE (10:30)
[2024-05-29] MEDS: PANTOPRAZOLE 40 MG/10 ML VIAL INJ IV ONE (10:30)
[2024-05-29 10:34] LABS: Band Neutrophils % (manual) 1; Eosinophils % (manual) 4 (0-7); Lymphocytes % (manual) 11 (10.0-50.0); Monocytes % (manual) 4 (0-12)
[2024-05-29 10:35] LABS: Platelet Estimate Decreased
[2024-05-29] MEDS ORDERED: PIPERACILLIN-TAZOB 3.375GM 100 ML IV SCH (11:00)
--- NOTE | 2024-05-29 12:32 | DVHPNRES ---
Progress Note Date Seen: May 29, 2024 Resident Creating Document: OSWALDO STEWART RESIDENT Medical Necessity Reason Pt with a Central, PICC or Fol: Yes Subjective Review of Systems Patient is 68-year-old male with past medical history of congestive heart failure, chronic kidney disease, Chronic obstructive pulmonary disease, chronic smoker, stroke, liver disease and myocardial infarction without PTCA or stent placement, hepatitis who brought to the hospital for altered mental status. As per family patient's mental status was gradually worsening over the past one week and he became eventually unresponsive. Patient was on hospice, hospital location was done at by family EMS was called.. Emergency department, patient was right away intubated for altered mental status/to protect airway. Past surgical history: Right above-knee amputation, partial left foot amputation. Patient seen and examined at bedside. On ventilator. Patient was requiring IV fluid, blood products, bicarb for worsening metabolic acidosis. Nephrology, GI, cardiology consultation has been done. No other complaint. Review of systems can not be obtained given patient is intubated. All medical information received from EMR, registered nurse, son. Objective vital signs Vital Sign Date Time Temp Pulse Resp B/P (MAP) Pulse Ox O2 Delivery O2 Flow Rate FiO2 05/29/24 12:00 66 05/29/24 11:44 97.9 20 106/52 97.9 05/29/24 08:36 99 40 05/28/24 21:00 Mechanical Ventilator+ Total Intake and Output 05/28/24 05/28/24 05/29/24 15:00 23:00 07:00 Intake Total 1005.0 ml 704.5 ml Output Total 0 ml Balance 1005.0 ml 704.5 ml medications Current Medications Medications Dose Ordered Sig/[place] Route Start Time Stop Time Status Last Admin Dose Admin Midazolam HCl 50 ml @ 1 mls/hr Q24H IV 05/28/24 21:15 05/29/24 11:55 7 MLS/HR Vancomycin HCl 0 ml @ 0 mls/hr UD IV 05/29/24 00:00 Albuterol 2.5 mg Q6HPRN PRN NEB 05/29/24 00:00 Fentanyl Citrate 250 ml @ 2.5 mls/hr Q24H IV 05/29/24 01:15 05/29/24 01:48 2.5 MLS/HR Sodium Bicarbonate 50 ml/ Dextrose 1,050 ml @ 75 mls/hr Q14H IV 05/29/24 10:15 Pantoprazole Sodium 40 mg BID IV 05/29/24 22:00 Ampicillin Sodium 1 gm/Sodium Chloride 100 ml @ 200 mls/hr Q6HR IV 05/29/24 12:00 Ceftriaxone Sodium/Dextrose 50 ml @ 50 mls/hr DAILY IV 05/30/24 10:00 Norepinephrine Bitartrate 250 ml @ 3.75 mls/hr Q24H IV 05/29/24 11:30 Examination Intubated, on ventilator. Frail white man. On sedation. Not requiring vasopressor. Presence of suprapubic cath. and colostomy bag. Sedated and not mechanical ventilation. Head Exam: Normal inspection Neck Exam: Normal inspection. Non-tender. Normal alignment Pulmonary/Respiratory: Chest non-tender. Assisted breath sound with ventilation. Muffled breath sounds bilateral lung globe. Cardiovascular/Chest: Regular rate and rhythm. No murmurs. No JVD. Abdominal Exam: Normal bowel sounds. Soft. Nontender. No hepatospenomegaly. No masses presence of colostomy bag. Lower extremities: Negative lower extremity edema, right above-knee amputation, left-sided toe amputation. Neuro/Mental Status: Sedated. laboratory and microbiology Laboratory Tests 05/29/24 08:30 Test 05/29/24 08:30 Range/Units Serum Glucose 82 74-106 mg/dL Problem List/Assessment/Plan Problem List/Assessment/Plan Acute metabolic encephalopathy due to uremia Sepsis due to UTI POA Y Severe anemia, HB 6 ? GI bleed FROYLAN on CKD stage 4, vasomotor mediated vs intrinsic NSTEMI type 2 due to demand ischemia Acute on chronic HFpEF Bilateral pleural effusion Anasarca Atrophic right kidney Cholelithiasis Hyperkalemia Metabolic acidosis Hyper natremia Hyperchloremia ? H/o hepatitis Decubitus ulcer POA y Extensive metabolic surgical hardware in spine Plan: -Mechanical ventilator: Volume control, respiratory rate 20, tidal volume 500, FiO2 30%, peep five. -ABG: PH improved from 7.059 to 7.262. Last ABG : PH 7.262, CO2 33.7, HC03 14.9. : Initiated on D5W bicarb drip for severe metabolic acidosis. -CT chest abdomen and pelvis: Large left and small right pleural effusions with bilateral pneumonia. Atrophic right kidney. Cholelithiasis. Shotty retroperitoneal lymphadenopathy. Advanced atherosclerotic disease. Diffuse anasarca. Decubitus ulcers. -Head CT: No acute intracranial hemorrhage -Given 2 units of PRBCs for CBC anemia -Started IV Lasix 40 mg b.i.d. given patient has anasarca, radiology consultation for thoracentesis/paracentesis -IV antibiotic with ampicillin and ceftriaxone for UTI. Sensitivity and culture pending. -Cardiology: Conservative management, no intervention needed at this point -Nephrology: No emergent indication for acute hemodialysis -Pending cultures including blood culture, urine culture, respiratory culture. -Stool occult negative -Can start vasopressor Levophed, target and MAP 65 mm hg. -Strict I and O -Hold Nutrition via G-tube given questionable GI bleed -IV Protonix 40 b.i.d. for patient able GI bleed -DVT prophylaxis SCD, hold Lovenox given severe anemia. -line: Right IJ central line inserted on 05/29/2024 -intubated on 05/28/2024 -Informed all clinical notes, clinical status to son via phone. All questions answered. -Goals of care discussed greater than 22 minutes via phone with son, full code -Critical care time spent greater than 82 minutes. Plan discussed with Dr. Rodríguez Plan discussed with: Son, Other (RN) My Orders My Orders Orders - OSWALDO STEWART Procedure Category Date Status Time Drug Screen LAB 05/29/24 Logged 10:01 Covid19 Antigen [place] LAB 05/29/24 Logged Rapid Influenza A&B LAB 05/29/24 Logged 10:01 Mrsa Screen SUZANNA 05/29/24 Logged 10:01 D5w 5% (Dextrose 5%) PHA 05/29/24 In Process W/Sodium Bicarb 50m 10:15 Pantoprazole PHA 05/29/24 In Process (Protonix) 22:00 * Gi Dvh Ripening Room Operator CONS 05/29/24 Transmitted 10:01 Ampicillin Inj PHA 05/29/24 In Process 12:00 Ceftriaxone 2gm/50ml PHA 05/30/24 In Process D5w (Rocephin 2gm/5 10:00 Ventilator Orders RT 05/29/24 Transmitted 10:01 Urine Sodium LAB 05/29/24 Logged 10:12 Urine Creatinine LAB 05/29/24 Logged 10:12 Chst Ab Pel Wo Con-No CT 05/29/24 Logged Iv/Oral 10:12 Communication Order ORDERS 05/29/24 Transmitted 10:24 Norepinephrine 8 PHA 05/29/24 In Process Mg/250ml Kit 11:30 CC Plasma Assessment Blood Product Administration S: 0330 Date of Service: May 29, 2024 Billing Provider: MARK RODRÍGUEZ MD Common Visit Codes: [id number] CARE 30-74 MIN OSWALDO STEWART RESIDENT May 29, 2024 12:32 MARK RODRÍGUEZ MD May 30, 2024 13:07
--- NOTE | 2024-05-29 12:38 | DVHINCON2 ---
Date Seen: May 29, 2024 Referring Physician Reason for Consultation elevated troponin History of Present Illness 68-year-old male patient with past medical history of chronic kidney disease, congestive heart failure, COPD, dyslipidemia, hypertension, cerebrovascular accident, liver disease, myocardial infarction presented to the hospital with altered mental status. The patient had shown a gradual decline in his mental status over the past 3 days leading to a progressive confusion and eventually unresponsiveness. Top-normal the patient was found unresponsive and required emergent intubation for airway protection. Initial workup revealed elevated tro ponin levels starting at 144 then trending down to 140 and subsequently to 118, suggesting myocardial injury. No further history was available from the patient due to the altered mental state. Given the patient's recent troponin elevation and cardiac history, this is possibly secondary to hypoxia or ischemic from his critical presentation. Past Medical History chronic kidney disease congestive heart failure COPD dyslipidemia hypertension cerebrovascular accident liver disease myocardial infarction Past Surgical History Right above-knee amputation Partial left foot amputation Family History: Cerebrovascular accident (CVA) G8 FATHER Allergies: Coded Allergies: Meperidine (Verified Allergy, Unknown, 04/18/23) Home Meds Active Scripts Sevelamer Hydrochloride (Renagel) 800 Mg Tab, 800 MG PO TIDWM for 30 Days, #90 TAB Prov:DORA DELGADILLO MD 04/03/24 Sodium Bicarbonate (Sodium Bicarbonate) 650 Mg Tab, 650 MG PO QID for 14 Days, #56 TAB Prov:DORA DELGADILLO MD 04/03/24 Levetiracetam (KEPPRA TABLET) 500 Mg Tb, 750 MG PO BID for 30 Days, #90 TAB Prov:DORA DELGADILLO MD 04/03/24 Carvedilol (COREG) 3.125 Mg Tab, 6.25 MG PO Q12HR, #60 TAB Prov:MALCOLM WILLOUGHBY MD 08/21/18 Atorvastatin Calcium (ATORVASTATIN CALCIUM) 20 Mg Tab, 40 MG PO DAILY, #30 TAB Prov:MALCOLM WILLOUGHBY MD 08/21/18 Reported Medications Bumetanide (Bumetanide) 1 Mg Tab, 1 TAB PO DAILY for 30 Days, #30 03/24/24 Metolazone (Metolazone) 10 Mg Tab, 1 TAB PO DAILY for 30 Days, #30 03/24/24 Gabapentin (Gabapentin) 100 Mg Cap, 800 MG PO Q8HR PRN for 30 Days, #90 03/24/24 Hydralazine Hcl (Hydralazine Hcl) 100 Mg Tab, 1 TAB PO Q12HR for 15 Days, #30 03/24/24 Clonidine Hydrochloride (Clonidine Hydrocloride) 0.1 Mg Tab, 0.2 MG PO Q8HR PRN for 30 Days, #90 03/24/24 Lorazepam (Lorazepam) 0.5 Mg Tab, 0.25 MG PO DAILYPRN PRN for ANXIETY, TAB 12/30/23 Ped Multivitamins W/Fl & Iron (Multi-Vit/Iron/Fluoride) /Fl 0.25 August, 1 ML PO DAILY, #100 ML 3 Refills 12/30/23 Sertraline Hcl (Zoloft) 25 Mg Tab, 1 TAB PO DAILY for 30 Days 12/30/23 Hydrocodone-Acetaminophen (Hydrocodone Bitartrate/AC 5-325 mg) 1 Tab Tab, 1 TAB PO QIDPRN PRN for PAIN SCALE 1 THRU 6, TAB 12/30/23 Famotidine (Famotidine) 20 Mg Tab, 1 TAB PO DAILY for 30 Days, #30 12/30/23 Bisacodyl (Dulcolax) 10 Mg Sup, 100 MG PO DAILY, SUPP 12/30/23 Fluticasone Propionate (Nasal) (Fluticasone Propionate Na) 50 Mcg/Act Spr, 1 SPRAY PARKER BID 11/06/23 Memantine HCl (Memantine Hydrochloride) 5 Mg Tab, 1 TAB PO DAILY 11/06/23 Levothyroxine Sodium (Levothyroxine Sodium) 50 Mcg Tab, 1 TAB PO QAM for 30 Days, #30 05/29/23 Apixaban Base (ELIQUIS) 2.5 Mg Tab, 1 TAB PO BID for 30 Days, #60 11/27/22 Amlodipine Besylate (Amlodipine Besylate) 10 Mg Tab, 1 TAB PO DAILY 11/27/22 Current Medications Current Medications Medications (Trade) Dose Ordered Sig/[place] Route PRN Reason Start Time Stop Time Status Last Admin Midazolam HCl 50 ml @ 1 mls/hr Q24H IV 05/28/24 21:15 05/29/24 11:55 Metoprolol Tartrate (Lopressor) 5 mg Q5M IV 05/28/24 21:30 05/29/24 03:45 DC 05/28/24 21:35 Metoprolol Tartrate (Lopressor) 5 mg Q5M IV 05/28/24 21:30 05/28/24 21:57 DC Aspirin 81 mg DAILY PO 05/29/24 10:00 05/29/24 10:24 DC Vancomycin HCl 0 ml @ 0 mls/hr UD IV 05/29/24 00:00 Piperacillin Sod/ Tazobactam Sod 100 ml @ 25 mls/hr Q12H IV 05/29/24 11:00 05/29/24 10:09 DC Albuterol (Ventolin Medneb) 2.5 mg Q6HPRN PRN NEB SHORTNESS OF BREATH 05/29/24 00:00 Furosemide (Lasix Injection) 20 mg BIDD IV 05/29/24 06:00 05/29/24 10:09 DC 05/29/24 06:24 Ondansetron HCl (Zofran) 4 mg Q4HP PRN IV NAUSEA / VOMITING 05/29/24 00:00 05/29/24 10:09 DC Acetaminophen (Tylenol Tablet) 650 mg Q6HP PRN PO PAIN SCALE 1-3 OR TEMP>100.4 05/29/24 00:00 05/29/24 10:09 DC Nitroglycerin (Ntrostat Sublingual) 0.4 mg Q5MINP PRN SL FOR CHEST PAIN 05/29/24 00:00 05/29/24 10:09 DC Morphine Sulfate 2 mg Q30M PRN IV FOR CHEST PAIN 05/29/24 00:00 05/29/24 10:09 DC Fentanyl Citrate 250 ml @ 2.5 mls/hr Q24H IV 05/29/24 01:15 05/29/24 01:48 Dextrose 1,000 ml @ 50 mls/hr Q20H IV 05/29/24 06:00 05/29/24 10:09 DC 05/29/24 06:23 Sodium Bicarbonate 50 ml/ Dextrose 1,050 ml @ 75 mls/hr Q14H IV 05/29/24 10:15 Pantoprazole Sodium (Protonix) 40 mg BID IV 05/29/24 22:00 Ampicillin Sodium 1 gm/Sodium Chloride 100 ml @ 200 mls/hr Q6HR IV 05/29/24 12:00 Ceftriaxone Sodium/Dextrose 50 ml @ 50 mls/hr DAILY IV 05/30/24 10:00 Norepinephrine Bitartrate 250 ml @ 3.75 mls/hr Q24H IV 05/29/24 11:30 Review of Systems Unable to obtain due to patient's status Vital Signs Vital Signs Date Time Temp Pulse Resp B/P (MAP) Pulse Ox O2 Delivery O2 Flow Rate FiO2 05/29/24 11:44 97.9 69 20 106/52 97.9 05/29/24 07:00 98 05/29/24 06:08 40 05/28/24 21:00 Mechanical Ventilator+ Physical Exam Examination General Appearance: Patient is intubated Cardiovascular: Regular rate, Normal S1, Normal S2 Abdominal: Normal bowel sounds Extremities: Right above the knee amputation, No edema, Normal pulses Skin: No rashes, No breakdown Labs/Diagnostic Data Labs Test 05/29/24 09:11 05/29/24 08:30 05/29/24 07:07 05/29/24 00:21 Range/Units POC Glucose 73 70-106 mg/dl White Blood Count 4.6 # 4.4-10.8 10^3/uL Red Blood Count 1.96 L 4.5-5.90 10^6/uL Hemoglobin 6.0 *L 13.5-17.5 g/dL Hematocrit 19.0 L 41.0-53.0 % Mean Corpuscular Volume 97.2 # 80.0-100.0 fL Mean Corpuscular Hemoglobin 30.6 28.0-32.0 pg Mean Corpuscular Hemoglobin Concent 31.4 L 32.0-36.0 g/dL Red Cell Distribution Width 17.7 H 11.8-14.3 % Platelet Count 95 L 140-450 10^3/uL Mean Platelet Volume 7.4 6.9-10.8 fL Neutrophils (%) (Auto) 37.0-80.0 % Lymphocytes (%) (Auto) 10.0-50.0 % Monocytes (%) (Auto) 0.0-12.0 % Basophils (%) (Auto) 0.0-2.0 % Neutrophils # (Auto) 1.6-8.6 10 ^3/uL Lymphocytes # (Auto) 0.4-5.4 10 ^3/uL Monocytes # (Auto) 0-1.3 10 ^3/uL Differential Total Cells Counted 100.0 100 Neutrophils % (Manual) 80 37.0-80.0 Band Neutrophils % (Manual) 1 Lymphocytes % (Manual) 11 10.0-50.0 Monocytes % (Manual) 4 0-12 Eosinophils % (Manual) 4 0-7 Basophils % (Manual) 0 0.0-2.0 Metamyelocytes % (manual) 0 Myelocytes % (Manual) 0 Promyelocytes % (Manual) 0 Blast Cells % (Manual) 0 Reactive Lymphocytes 0 Platelet Estimate Decreased Sodium Level 155 #H 136-145 mmol/L Potassium Level 4.7 3.5-5.1 mmol/L Chloride Level 122 H 98-107 mmol/L Carbon Dioxide Level 16 L 20-31 mmol/L Anion Gap 17 H 5-15 Blood Urea Nitrogen 105 *H 9-23 mg/dL Creatinine 8.01 H 0.700-1.30 mg/dL Glomerular Filtration Rate Calc 7 >90 mL/min BUN/Creatinine Ratio 13.1 10.0-20.0 Serum Glucose 82 74-106 mg/dL Lactic Acid Level 0.5 0.4-2.0 mmol/L Calcium Level 9.0 8.7-10.4 mg/dL Total Bilirubin 0.2 0.2-1.0 mg/dL Aspartate Amino Transferase (AST) 16 13-40 U/L Alanine Aminotransferase (ALT) < 9 7-40 U/L Alkaline Phosphatase 60 46-116 U/L Total Protein 5.7 5.7-8.2 g/dL Albumin 2.4 L 3.2-4.8 g/dL Random Vancomycin Level 12.4 H 5-10 ug/mL Blood Gas Specimen Type Arterial Blood Gas Sample Site Right radial Blood Gas Patient Temperature 37.0 Arterial Blood Date Drawn [id number] Arterial Blood pH 7.197 *L 7.350-7.450 Arterial Blood Partial Pressure CO2 39.8 35.0-48.0 mmHg Arterial Blood Partial Pressure O2 119.9 H 83.0-108.0 mmHg Arterial Blood HCO3 15.1 L 21.0-28.0 mmol/L Arterial Blood Oxygen Saturation 97.2 94.0-98.0 % Arterial Blood Base Excess -12.0 L -2.0-3.0 mmol/L Arterial Blood Oxyhemoglobin 95.1 94.0-98.0 % Arterial Blood Carboxyhemoglobin 1.3 0.5-1.5 % Arterial Blood Methemoglobin 0.9 0.0-1.5 % Bruno Test Modified Blood Gas Total Hemoglobin 6.60 *L 13.5-17.5 g/dL Blood Gas Set Respiration Rate 16.0 Blood Gas Modality Vent - ac FiO2 % 50.0 Blood Gas Tidal Volume 500.0 Blood Gas PEEP or CPAP 5.0 Blood Gas Critical Value Read Back Yes Blood Gas Notified Whom Mitzy jones np Blood Gas Notified Time [id number] Blood Gas Notified By Mitzy gan rrt Troponin I High Sensitivity 118 *H </=54 ng/L Test 05/28/24 22:36 05/28/24 21:43 Range/Units Urine Color Dark-brown Yellow Urine Clarity Ex.turbid Clear Urine pH 6.0 5.0-9.0 Urine Specific [place] 1.017 1.001-1.035 Urine Protein 2+ H Negative Urine Ketones Trace Negative Urine Blood 1+ H Negative /uL Urine Nitrite Negative Negative Urine Bilirubin Negative Negative Urine Urobilinogen Normal Negative mg/dL Urine Leukocyte Esterase 3+ Negative /uL Urine RBC 56 0 - 3 /hpf Urine WBC 3664 0 - 3 /hpf Urine WBC Clumps Present None Seen /hpf Urine Squamous Epithelial Cells Many <5 /hpf Urine Bacteria Mod H None Seen /hpf Urine Glucose Normal Normal mg/dL Anisocytosis (manual) Slight Macrocytosis Slight Prothrombin Time 11.6 9.3-11.8 sec Prothrombin Time INR 1.10 0.9-1.15 Activated Partial Thromboplast Time 33.5 24.5-34.5 SEC Magnesium Level 2.5 1.6-2.6 mg/dL B-Type Natriuretic Peptide 1188.79 0-100 pg/mL Assessment Acute uremic encephalopathy due to chronic kidney disease Severe anemia, hemoglobin 6 NSTEMI type 2 likely due to demand ischemia due to severe anemia hemoglobin 6 Chronic kidney disease Acute on Chronic heart failure reduced ejection fraction 55% on exacerbation (03/30/2024) NYHA IV Plan/Recommendation Conservative management Treat underlying condition as a possible cause of the increased troponin levels. Blood transfusions as needed Stool occult blood test Antibiotics per hospitalist Thank you for allowing us participate in this case, there is no further workup i ndicated at this time, with the finding of Case discussed with Dr. George Critical care, time spent: 52 minutes. Plan discussed with: Other Date of Service: May 29, 2024 Billing Provider: DONG GEORGE MD Cardiology Common Codes: [id number] INP/OBS CARE (High) IZZY WISEMAN RESIDENT May 29, 2024 12:38
[2024-05-29] MEDS: VANCOMYCIN 1GM/250ML KIT 200 ML IV ONE (13:03)
[2024-05-29] MEDS: AMPICILLIN INJ 1 GM in SODIUM CHL 0.9% 100 ML IV SCH (14:27)
--- NOTE | 2024-05-29 14:30 | DVHINCON2 ---
Date of service: May 29, 2024 Referring Physician Hospitalist Reason for Consultation Acute kidney injury History of Present Illness 68-year-old bed-bound male with chronic medical history is involving multiple organs including liver disease, history of colectomy with a colostomy, pressure ulcers, chronic urinary retention with urinary Peralta catheter Chronic kidney disease stage 4 , CHF and COPD. Patient was on hospice care. Patient was brought in by family due to change in mental state. His ER course is notable for acute declining condition status post emergent intubation. Patient is currently now on a ventilator. Nephrology was consulted for management of decreased renal function Past Medical History as above Past Surgical History Colostomy Suprapubic catheter Allergies: Coded Allergies: Meperidine (Verified Allergy, Unknown, 04/18/23) Home Meds Active Scripts Sevelamer Hydrochloride (Renagel) 800 Mg Tab, 800 MG PO TIDWM for 30 Days, #90 TAB Prov:DORA DELGADILLO MD 04/03/24 Sodium Bicarbonate (Sodium Bicarbonate) 650 Mg Tab, 650 MG PO QID for 14 Days, #56 TAB Prov:DORA DELGADILLO MD 04/03/24 Levetiracetam (KEPPRA TABLET) 500 Mg Tb, 750 MG PO BID for 30 Days, #90 TAB Prov:DORA DELGADILLO MD 04/03/24 Carvedilol (COREG) 3.125 Mg Tab, 6.25 MG PO Q12HR, #60 TAB Prov:MALCOLM WILLOUGHBY MD 08/21/18 Atorvastatin Calcium (ATORVASTATIN CALCIUM) 20 Mg Tab, 40 MG PO DAILY, #30 TAB Prov:MALCOLM WILLOUGHBY MD 08/21/18 Reported Medications Bumetanide (Bumetanide) 1 Mg Tab, 1 TAB PO DAILY for 30 Days, #30 03/24/24 Metolazone (Metolazone) 10 Mg Tab, 1 TAB PO DAILY for 30 Days, #30 03/24/24 Gabapentin (Gabapentin) 100 Mg Cap, 800 MG PO Q8HR PRN for 30 Days, #90 03/24/24 Hydralazine Hcl (Hydralazine Hcl) 100 Mg Tab, 1 TAB PO Q12HR for 15 Days, #30 03/24/24 Clonidine Hydrochloride (Clonidine Hydrocloride) 0.1 Mg Tab, 0.2 MG PO Q8HR PRN for 30 Days, #90 03/24/24 Lorazepam (Lorazepam) 0.5 Mg Tab, 0.25 MG PO DAILYPRN PRN for ANXIETY, TAB 12/30/23 Ped Multivitamins W/Fl & Iron (Multi-Vit/Iron/Fluoride) /Fl 0.25 August, 1 ML PO DAILY, #100 ML 3 Refills 12/30/23 Sertraline Hcl (Zoloft) 25 Mg Tab, 1 TAB PO DAILY for 30 Days 12/30/23 Hydrocodone-Acetaminophen (Hydrocodone Bitartrate/AC 5-325 mg) 1 Tab Tab, 1 TAB PO QIDPRN PRN for PAIN SCALE 1 THRU 6, TAB 12/30/23 Famotidine (Famotidine) 20 Mg Tab, 1 TAB PO DAILY for 30 Days, #30 12/30/23 Bisacodyl (Dulcolax) 10 Mg Sup, 100 MG PO DAILY, SUPP 12/30/23 Fluticasone Propionate (Nasal) (Fluticasone Propionate Na) 50 Mcg/Act Spr, 1 SPRAY PARKER BID 11/06/23 Memantine HCl (Memantine Hydrochloride) 5 Mg Tab, 1 TAB PO DAILY 11/06/23 Levothyroxine Sodium (Levothyroxine Sodium) 50 Mcg Tab, 1 TAB PO QAM for 30 Days, #30 05/29/23 Apixaban Base (ELIQUIS) 2.5 Mg Tab, 1 TAB PO BID for 30 Days, #60 11/27/22 Amlodipine Besylate (Amlodipine Besylate) 10 Mg Tab, 1 TAB PO DAILY 11/27/22 Current Medications Current Medications Medications (Trade) Dose Ordered Sig/[place] Route PRN Reason Start Time Stop Time Status Last Admin Midazolam HCl 50 ml @ 1 mls/hr Q24H IV 05/28/24 21:15 05/29/24 11:55 Metoprolol Tartrate (Lopressor) 5 mg Q5M IV 05/28/24 21:30 05/29/24 03:45 DC 05/28/24 21:35 Metoprolol Tartrate (Lopressor) 5 mg Q5M IV 05/28/24 21:30 05/28/24 21:57 DC Aspirin 81 mg DAILY PO 05/29/24 10:00 05/29/24 10:24 DC Vancomycin HCl 0 ml @ 0 mls/hr UD IV 05/29/24 00:00 Piperacillin Sod/ Tazobactam Sod 100 ml @ 25 mls/hr Q12H IV 05/29/24 11:00 05/29/24 10:09 DC Albuterol (Ventolin Medneb) 2.5 mg Q6HPRN PRN NEB SHORTNESS OF BREATH 05/29/24 00:00 Furosemide (Lasix Injection) 20 mg BIDD IV 05/29/24 06:00 05/29/24 10:09 DC 05/29/24 06:24 Ondansetron HCl (Zofran) 4 mg Q4HP PRN IV NAUSEA / VOMITING 05/29/24 00:00 05/29/24 10:09 DC Acetaminophen (Tylenol Tablet) 650 mg Q6HP PRN PO PAIN SCALE 1-3 OR TEMP>100.4 05/29/24 00:00 05/29/24 10:09 DC Nitroglycerin (Ntrostat Sublingual) 0.4 mg Q5MINP PRN SL FOR CHEST PAIN 05/29/24 00:00 05/29/24 10:09 DC Morphine Sulfate 2 mg Q30M PRN IV FOR CHEST PAIN 05/29/24 00:00 05/29/24 10:09 DC Fentanyl Citrate 250 ml @ 2.5 mls/hr Q24H IV 05/29/24 01:15 05/29/24 01:48 Dextrose 1,000 ml @ 50 mls/hr Q20H IV 05/29/24 06:00 05/29/24 10:09 DC 05/29/24 06:23 Sodium Bicarbonate 50 ml/ Dextrose 1,050 ml @ 75 mls/hr Q14H IV 05/29/24 10:15 Pantoprazole Sodium (Protonix) 40 mg BID IV 05/29/24 22:00 Ampicillin Sodium 1 gm/Sodium Chloride 100 ml @ 200 mls/hr Q6HR IV 05/29/24 12:00 Ceftriaxone Sodium/Dextrose 50 ml @ 50 mls/hr DAILY IV 05/30/24 10:00 Norepinephrine Bitartrate 250 ml @ 3.75 mls/hr Q24H IV 05/29/24 11:30 Family History: Cerebrovascular accident (CVA) G8 FATHER Review of Systems Can not obtain due to critical illness H&P Exam Vital Signs/I&O Vital Sign Date Time Temp Pulse Resp B/P (MAP) Pulse Ox O2 Delivery O2 Flow Rate FiO2 05/29/24 12:45 65 20 110/52 (71) 95 30 05/29/24 11:44 97.9 97.9 05/28/24 21:00 Mechanical Ventilator+ Intake and Output 05/28/24 05/29/24 18:59 06:59 Intake Total 1673.0 ml Output Total 0 ml Balance 1673.0 ml Intake Oral 0 ml IV Total 1073.0 ml Blood Product 600 ml Output Urine Total 0 ml Physical Exam Critically ill-appearing elderly white male Intubated On sedation No pressors No JVD Regular rate and rhythm Abdomen nondistended non firm no guarding no fluid wave, colostomy has hard stool Suprapubic Peralta catheter Urine color is clear No pitting edema of the lower extremity Has upper extremity bilateral arm swelling Labs/Diagnostic Data Labs/Diagnostic Data Laboratory Tests Test 05/29/24 14:00 05/29/24 09:11 05/29/24 08:30 05/29/24 07:07 Range/Units POC Glucose 73 70-106 mg/dl White Blood Count 4.6 # 4.4-10.8 10^3/uL Red Blood Count 1.96 L 4.5-5.90 10^6/uL Hemoglobin 6.0 *L 13.5-17.5 g/dL Hematocrit 19.0 L 41.0-53.0 % Mean Corpuscular Volume 97.2 # 80.0-100.0 fL Mean Corpuscular Hemoglobin 30.6 28.0-32.0 pg Mean Corpuscular Hemoglobin Concent 31.4 L 32.0-36.0 g/dL Red Cell Distribution Width 17.7 H 11.8-14.3 % Platelet Count 95 L 140-450 10^3/uL Mean Platelet Volume 7.4 6.9-10.8 fL Neutrophils (%) (Auto) 37.0-80.0 % Lymphocytes (%) (Auto) 10.0-50.0 % Monocytes (%) (Auto) 0.0-12.0 % Basophils (%) (Auto) 0.0-2.0 % Neutrophils # (Auto) 1.6-8.6 10 ^3/uL Lymphocytes # (Auto) 0.4-5.4 10 ^3/uL Monocytes # (Auto) 0-1.3 10 ^3/uL Differential Total Cells Counted 100.0 100 Neutrophils % (Manual) 80 37.0-80.0 Band Neutrophils % (Manual) 1 Lymphocytes % (Manual) 11 10.0-50.0 Monocytes % (Manual) 4 0-12 Eosinophils % (Manual) 4 0-7 Basophils % (Manual) 0 0.0-2.0 Metamyelocytes % (manual) 0 Myelocytes % (Manual) 0 Promyelocytes % (Manual) 0 Blast Cells % (Manual) 0 Reactive Lymphocytes 0 Platelet Estimate Decreased Sodium Level 155 #H 136-145 mmol/L Potassium Level 4.7 3.5-5.1 mmol/L Chloride Level 122 H 98-107 mmol/L Carbon Dioxide Level 16 L 20-31 mmol/L Anion Gap 17 H 5-15 Blood Urea Nitrogen 105 *H 9-23 mg/dL Creatinine 8.01 H 0.700-1.30 mg/dL Glomerular Filtration Rate Calc 7 >90 mL/min BUN/Creatinine Ratio 13.1 10.0-20.0 Serum Glucose 82 74-106 mg/dL Lactic Acid Level 0.5 0.4-2.0 mmol/L Calcium Level 9.0 8.7-10.4 mg/dL Total Bilirubin 0.2 0.2-1.0 mg/dL Aspartate Amino Transferase (AST) 16 13-40 U/L Alanine Aminotransferase (ALT) < 9 7-40 U/L Alkaline Phosphatase 60 46-116 U/L Total Protein 5.7 5.7-8.2 g/dL Albumin 2.4 L 3.2-4.8 g/dL Random Vancomycin Level 12.4 H 5-10 ug/mL Blood Gas Specimen Type Arterial Blood Gas Sample Site Right radial Blood Gas Patient Temperature 37.0 Arterial Blood Date Drawn [id number] Arterial Blood pH 7.197 *L 7.350-7.450 Arterial Blood Partial Pressure CO2 39.8 35.0-48.0 mmHg Arterial Blood Partial Pressure O2 119.9 H 83.0-108.0 mmHg Arterial Blood HCO3 15.1 L 21.0-28.0 mmol/L Arterial Blood Oxygen Saturation 97.2 94.0-98.0 % Arterial Blood Base Excess -12.0 L -2.0-3.0 mmol/L Arterial Blood Oxyhemoglobin 95.1 94.0-98.0 % Arterial Blood Carboxyhemoglobin 1.3 0.5-1.5 % Arterial Blood Methemoglobin 0.9 0.0-1.5 % Bruno Test Modified Blood Gas Total Hemoglobin 6.60 *L 13.5-17.5 g/dL Blood Gas Set Respiration Rate 16.0 Blood Gas Modality Vent - ac FiO2 % 50.0 Blood Gas Tidal Volume 500.0 Blood Gas PEEP or CPAP 5.0 Blood Gas Critical Value Read Back Yes Blood Gas Notified Whom Mitzy jones np Blood Gas Notified Time [id number] Blood Gas Notified By Mitzy gan fluid pump operator Test 05/29/24 06:19 05/29/24 04:38 05/29/24 03:39 05/29/24 02:52 Range/Units POC Glucose 73 92 99 64 L 70-106 mg/dl Test 05/29/24 00:21 05/28/24 22:36 05/28/24 22:33 05/28/24 22:15 Range/Units Troponin I High Sensitivity 118 *H 140 *H </=54 ng/L Urine Color Dark-brown Yellow Urine Clarity Ex.turbid Clear Urine pH 6.0 5.0-9.0 Urine Specific [place] 1.017 1.001-1.035 Urine Protein 2+ H Negative Urine Ketones Trace Negative Urine Blood 1+ H Negative /uL Urine Nitrite Negative Negative Urine Bilirubin Negative Negative Urine Urobilinogen Normal Negative mg/dL Urine Leukocyte Esterase 3+ Negative /uL Urine RBC 56 0 - 3 /hpf Urine WBC 3664 0 - 3 /hpf Urine WBC Clumps Present None Seen /hpf Urine Squamous Epithelial Cells Many <5 /hpf Urine Bacteria Mod H None Seen /hpf Urine Glucose Normal Normal mg/dL Blood Gas Specimen Type Arterial Blood Gas Sample Site Right brachial Blood Gas Patient Temperature 37.0 Arterial Blood Date Drawn [id number] Arterial Blood pH 7.059 *L 7.350-7.450 Arterial Blood Partial Pressure CO2 45.4 35.0-48.0 mmHg Arterial Blood Partial Pressure O2 72.0 L 83.0-108.0 mmHg Arterial Blood HCO3 12.5 L 21.0-28.0 mmol/L Arterial Blood Oxygen Saturation 88.3 L 94.0-98.0 % Arterial Blood Base Excess -16.5 L -2.0-3.0 mmol/L Arterial Blood Oxyhemoglobin 86.7 L 94.0-98.0 % Arterial Blood Carboxyhemoglobin 1.1 0.5-1.5 % Arterial Blood Methemoglobin 0.7 0.0-1.5 % Bruno Test N/a Blood Gas Total Hemoglobin 6.80 *L 13.5-17.5 g/dL Blood Gas Set Respiration Rate 16.0 Blood Gas Modality Vent - ac FiO2 % 60.0 Blood Gas Tidal Volume 500.0 Blood Gas PEEP or CPAP 5.0 Blood Gas Critical Value Read Back Yes Blood Gas Notified Whom gaetano Rouse md Blood Gas Notified Time [id number] Blood Gas Notified By Social Media Project Manager catalina kim Test 05/28/24 21:43 Range/Units White Blood Count 10.3 4.4-10.8 10^3/uL Red Blood Count 2.02 L 4.5-5.90 10^6/uL Hemoglobin 6.5 *L 13.5-17.5 g/dL Hematocrit 21.0 L 41.0-53.0 % Mean Corpuscular Volume 103.7 H 80.0-100.0 fL Mean Corpuscular Hemoglobin 32.0 28.0-32.0 pg Mean Corpuscular Hemoglobin Concent 30.8 L 32.0-36.0 g/dL Red Cell Distribution Width 17.3 H 11.8-14.3 % Platelet Count 144 140-450 10^3/uL Mean Platelet Volume 7.1 6.9-10.8 fL Neutrophils (%) (Auto) 37.0-80.0 % Lymphocytes (%) (Auto) 10.0-50.0 % Monocytes (%) (Auto) 0.0-12.0 % Basophils (%) (Auto) 0.0-2.0 % Neutrophils # (Auto) 1.6-8.6 10 ^3/uL Lymphocytes # (Auto) 0.4-5.4 10 ^3/uL Monocytes # (Auto) 0-1.3 10 ^3/uL Differential Total Cells Counted 100.0 100 Neutrophils % (Manual) 68 37.0-80.0 Band Neutrophils % (Manual) 3 Lymphocytes % (Manual) 22 10.0-50.0 Monocytes % (Manual) 5 0-12 Eosinophils % (Manual) 1 0-7 Basophils % (Manual) 0 0.0-2.0 Metamyelocytes % (manual) 1 Myelocytes % (Manual) 0 Promyelocytes % (Manual) 0 Blast Cells % (Manual) 0 Reactive Lymphocytes 0 Platelet Estimate Adequate Anisocytosis (manual) Slight Macrocytosis Slight Prothrombin Time 11.6 9.3-11.8 sec Prothrombin Time INR 1.10 0.9-1.15 Activated Partial Thromboplast Time 33.5 24.5-34.5 SEC Sodium Level 150 H 136-145 mmol/L Potassium Level 5.3 H 3.5-5.1 mmol/L Chloride Level 120 H 98-107 mmol/L Carbon Dioxide Level 13 L 20-31 mmol/L Anion Gap 17 H 5-15 Blood Urea Nitrogen 107 *H 9-23 mg/dL Creatinine 8.37 H 0.700-1.30 mg/dL Glomerular Filtration Rate Calc 6 >90 mL/min BUN/Creatinine Ratio 12.8 10.0-20.0 Serum Glucose 52 L 74-106 mg/dL Lactic Acid Level 0.6 0.4-2.0 mmol/L Calcium Level 9.7 8.7-10.4 mg/dL Magnesium Level 2.5 1.6-2.6 mg/dL Total Bilirubin < 0.2 L 0.2-1.0 mg/dL Aspartate Amino Transferase (AST) 19 13-40 U/L Alanine Aminotransferase (ALT) < 9 7-40 U/L Alkaline Phosphatase 79 46-116 U/L Troponin I High Sensitivity 145 *H </=54 ng/L B-Type Natriuretic Peptide 1188.79 0-100 pg/mL Total Protein 7.0 5.7-8.2 g/dL Albumin 2.9 L 3.2-4.8 g/dL Assessment Acute kidney injury on chronic kidney disease stage 4 Hemodynamically mediated Acute respiratory failure Anemia suspected due to low blood loss Hypernatremia Hypokalemia Metabolic acidosis Chronic urinary retention Replace electrolytes IV fluids PRBC Pressors to maintain mean arterial pressure greater than 65 Recommend full culture workup Currently patient is ordered for sodium bicarbonate drip due to severe metabolic acidosis, recommend changing to hypotonic fluid tomorrow if sodium continues to rise Recommend OG tube and start free water today. Strict Is&Os Avoid contrast studies No emergent indication for acute hemodialysis at this time as patient is making urine Patient is not a candidate for long-term hemodialysis treatment Critically ill Critical care time spent 36 minutes Plan discussed with: Other ANNA ROMERO MD May 29, 2024 14:30
[2024-05-29] MEDS: SODIUM BICARB 50mEq/50ml Vial 50 ML in D5W 5% 1,000 ML IV SCH (14:32)
[2024-05-29 15:12] LABS: Hemoglobin 6.5 g/dL (13.5-17.5)
--- NOTE | 2024-05-29 16:46 | DVH ---
Exam: CT CHST AB PEL WO CON-NO IV/ORAL History: PNA / ABD PAIN Comparison Study: None available at time of dictation. Technique: Multidetector spiral CT of the chest, abdomen and pelvis was performed from lower neck to pubic symphysis Axial, coronal and sagittal multiplanar reformats were performed by the technologist on a separate workstation. Radiation Dose : Chest/Abdomen/Pelvis: CTDIvol 12.5 mGy, DLP 914.96 mGy*cm. Findings: Lower neck: Endotracheal tube and nasogastric tube in place. Lungs: Large left and small associated bibasilar atelectasis and scarring. Tree-in-bud nodularity in the right lung. Heart/Vascular Structures: Normal heart size. No pericardial effusion. Lymph Nodes: Subcentimeter mediastinal lymph nodes. Pleura: No pleural effusion or significant pneumothorax. Liver: The liver is normal in size. No focal lesions. Normal hepatic vascular enhancement. Gallbladder and Biliary Tree: Cholelithiasis noted without secondary findings of cholecystitis or ana cristina iary obstruction. Spleen: Unremarkable Pancreas: The pancreas is normal in appearance without focal lesions or abnormal enhancement. Adrenal Glands: Unremarkable Kidneys: Right kidney is atrophic. Left renal cysts. No hydronephrosis or nephrolithiasis. Bladder: Suprapubic catheter in place Bowel: The stomach is grossly normal in appearance. Postsurgical changes with a left lower quadrant o stomy. The appendix is not visualized; however, no secondary findings of acute appendicitis identifi ed. Ascites: Absent Lymphadenopathy: Shotty retroperitoneal lymphadenopathy. Abdominal Wall and Mesentery: Diffuse anasarca. Vasculature: The visualized abdominal aorta is normal in size and caliber. There is calcified atheros clerotic plaque involving the aorta and its branches. Abdominal and pelvic vessels demonstrate normal enhancement. Pelvic Organs: Unremarkable Musculoskeletal: Extensive postsurgical changes in the spine.. Bilateral decubitus ulcers are noted. IMPRESSION: 1. Limited evaluation due to positioning with arms at patient's side. Extensive metallic artifact fr om surgical hardware in the spine and lack of intravenous contrast. Large left and small right pleura l effusions with bilateral pneumonia. Atrophic right kidney. Cholelithiasis. Shotty retroperitoneal l ymphadenopathy. Advanced atherosclerotic disease. Diffuse anasarca. Decubitus ulcers. HS:Y
[2024-05-29 17:32] LABS: Base Excess -11.2 mmol/L (-2.0-3.0)
[2024-05-29 17:52] LABS: Hematocrit 21.4 % (41.0-53.0); Mean Corpuscular Hemoglobin 31.6 pg (28.0-32.0); Mean Corpuscular Hgb Conc. 32.9 g/dL (32.0-36.0); Mean Corpuscular Volume 96.1 fL (80.0-100.0); Platelet Count (auto) 88 10^3/uL (140-450); Red Blood Cells 2.23 10^6/uL (4.5-5.90); Red Cell Distribution Width 17.4 % (11.8-14.3); White Blood Cell 4.4 10^3/uL (4.4-10.8)
[2024-05-29 18:00] LABS: Chloride 121 mmol/L (98-107); Potassium 4.4 mmol/L (3.5-5.1); Sodium 154 mmol/L (136-145)
[2024-05-29] MEDS: NOREPINEPHRINE 8 MG/250ML KIT 250 ML IV SCH (18:00)
[2024-05-29 18:01] LABS: Anion Gap 18 (5-15); Calcium 8.9 mg/dL (8.7-10.4); Carbon Dioxide 15 mmol/L (20-31)
[2024-05-29 18:06] LABS: BUN/Creatinine Ratio 12.9 (10.0-20.0); Glucose 83 mg/dL (74-106)
[2024-05-29] MEDS: FUROSEMIDE 40 MG/4 ML VIAL IV SCH (18:22)
[2024-05-29 18:46] LABS: Basophils % (manual) 0 (0.0-2.0); Blast Cells 0; Blood Urea Nitrogen 103 mg/dL (9-23); Metamyelocytes % 0; Myelocytes % 0; Promyelocytes % 0; Reactive Lymphocytes 0
[2024-05-29 19:45] LABS: Band Neutrophils % (manual) 2; Eosinophils % (manual) 12 (0-7); Lymphocytes % (manual) 15 (10.0-50.0); Monocytes % (manual) 5 (0-12); Platelet Estimate Decreased
[2024-05-29] MEDS: PANTOPRAZOLE 40 MG/10 ML VIAL INJ IV SCH (22:28)
[2024-05-30] VITALS (108 sets, daily range): BP systolic 112–201; BP diastolic 57–88; PULSE 64–127; RESP 12–31; TEMP 96.4–99.7; O2SAT 87–100
[2024-05-30 03:43] LABS: Chloride 121 mmol/L (98-107); Potassium 4.1 mmol/L (3.5-5.1); Sodium 152 mmol/L (136-145)
[2024-05-30 03:44] LABS: Anion Gap 16 (5-15); Calcium 8.8 mg/dL (8.7-10.4); Carbon Dioxide 15 mmol/L (20-31)
[2024-05-30 03:45] LABS: Hemoglobin 7.3 g/dL (13.5-17.5); White Blood Cell 4.3 10^3/uL (4.4-10.8)
[2024-05-30 03:47] LABS: Hematocrit 21.9 % (41.0-53.0); Mean Corpuscular Hemoglobin 31.6 pg (28.0-32.0); Mean Corpuscular Hgb Conc. 33.4 g/dL (32.0-36.0); Mean Corpuscular Volume 94.6 fL (80.0-100.0); Platelet Count (auto) 85 10^3/uL (140-450); Red Blood Cells 2.31 10^6/uL (4.5-5.90); Red Cell Distribution Width 17.4 % (11.8-14.3)
[2024-05-30 03:49] LABS: BUN/Creatinine Ratio 14.4 (10.0-20.0); Glucose 71 mg/dL (74-106)
[2024-05-30 03:52] LABS: Band Neutrophils % (manual) 0; Basophils % (manual) 0 (0.0-2.0); Blast Cells 0; Metamyelocytes % 0; Myelocytes % 0; Promyelocytes % 0; Reactive Lymphocytes 0
[2024-05-30 04:05] LABS: Blood Urea Nitrogen 108 mg/dL (9-23)
[2024-05-30 05:05] LABS: Eosinophils % (manual) 15 (0-7); Lymphocytes % (manual) 18 (10.0-50.0); Monocytes % (manual) 4 (0-12); Platelet Estimate Decreased
[2024-05-30 05:05] LABS: Creatinine, Urine 33.57 mg/dL (30.0-125.0)
--- NOTE | 2024-05-30 05:38 | DVH ---
EXAM: XY CHEST XRAY 1 VIEW Indication:ON VENT Technique: Single AP view of the chest WID: Comparison: XY CHEST XRAY 1 VIEW on DOS: 05/29/24, XY CHEST PORTABLE on DOS: 05/28/24, XY CHEST SHABNAM BLE on DOS: 03/29/24, XY CHEST PORTABLE on DOS: 03/28/24, XY CHEST XRAY 1 VIEW on DOS: 03/25/24, XY CHES T XRAY 1 VIEW on DOS: 05/29/24 FINDINGS: Lines and tubes: Right IJ central venous catheter with the tip projecting over the SVC. Endotracheal tube projects or cm above the chacho. Bilateral rods project over the lower thoracic spine. NG tube tip in stomach. Chest: Mild cardiomegaly and mild pulmonary vascular congestion. Small left pleural effusion. Patchy mixed opacities bilaterally. No pneumothorax The osseous structures are grossly intact. IMPRESSION: No significant change compared to prior exam.
[2024-05-30 05:48] LABS: Amphetamine Screen, Urine Neg (NEGATIVE); Barbiturate Scree,Urine Neg (NEGATIVE); Benzodiazephine Screen, Urine Pos (NEGATIVE); Cannabinoid Screen, Urine Neg (NEGATIVE); Cocaine Screen, Urine Neg (NEGATIVE); Opiate Scree,Urine Neg (NEGATIVE); Phencyclidine Screen, Urine Neg (NEGATIVE)
[2024-05-30 07:43] LABS: Base Excess -14.2 mmol/L (-2.0-3.0)
--- NOTE | 2024-05-30 08:05 | DVH ---
Bilateral Chest Sonogram Date: 05/30/2024 07:29 AM Clinical history: FLUID CHECK FOR POSSIBLE PARA/THORA Findings: Limited sonographic evaluation of the left chest was performed to localize and adrianna fluid for thorac entesis. There is a [id number] left pleural effusion. IMPRESSION: Moderate left pleural effusion. Trace ascites.
[2024-05-30] MEDS: cefTRIAXone 2GM/50ML D5W 50 ML IV SCH (10:47)
[2024-05-30 10:48] LABS: % Iron Saturation 40.9 % (20-55)
--- NOTE | 2024-05-30 11:30 | DVHPNRES ---
Progress Note Date Seen: May 30, 2024 Resident Creating Document: OSWALDO STEWART RESIDENT Medical Necessity Reason Pt with a Central, PICC or Fol: Yes Subjective Review of Systems Patient is 68-year-old male with past medical history of congestive heart failure, chronic kidney disease, Chronic obstructive pulmonary disease, chronic smoker, stroke, liver disease and myocardial infarction without PTCA or stent placement, hepatitis who brought to the hospital for altered mental status. As per family patient's mental status was gradually worsening over the past one week and he became eventually unresponsive. Patient was on hospice, hospital location was done at by family EMS was called.. Emergency department, patient was right away intubated for altered mental status/to protect airway. Past surgical history: Right above-knee amputation, partial left foot amputation. Patient seen and examined at bedside. On ventilator. No other complaint. Plan for thoracentesis and bronchoscopy today. Review of systems can not be obtained given patient is intubated. All medical information received from EMR, registered nurse, son. Objective vital signs Vital Sign Date Time Temp Pulse Resp B/P (MAP) Pulse Ox O2 Delivery O2 Flow Rate FiO2 05/30/24 10:28 81 22 137/69 (91) 96 30 05/30/24 06:00 97.9 97.9 05/30/24 06:00 Mechanical Ventilator+ Total Intake and Output 05/29/24 05/29/24 05/30/24 15:00 23:00 07:00 Intake Total 581.0 ml 270.5 ml 466.5 ml Output Total 75 ml Balance 581.0 ml 270.5 ml 391.5 ml medications Current Medications Medications Dose Ordered Sig/[place] Route Start Time Stop Time Status Last Admin Dose Admin Midazolam HCl 50 ml @ 1 mls/hr Q24H IV 05/28/24 21:15 05/29/24 19:34 5 MLS/HR Vancomycin HCl 0 ml @ 0 mls/hr UD IV 05/29/24 00:00 Albuterol 2.5 mg Q6HPRN PRN NEB 05/29/24 00:00 Fentanyl Citrate 250 ml @ 2.5 mls/hr Q24H IV 05/29/24 01:15 05/30/24 10:03 12.5 MLS/HR Pantoprazole Sodium 40 mg BID IV 05/29/24 22:00 11/15/24 09:51 40 MG Ampicillin Sodium 1 gm/Sodium Chloride 100 ml @ 200 mls/hr Q6HR IV 05/29/24 12:00 05/30/24 09:51 200 MLS/HR Ceftriaxone Sodium/Dextrose 50 ml @ 50 mls/hr DAILY IV 05/30/24 10:00 05/30/24 10:47 50 MLS/HR Norepinephrine Bitartrate 250 ml @ 3.75 mls/hr Q24H IV 05/29/24 11:30 Furosemide 60 mg BIDD IV 05/30/24 18:00 UNV Enteral Nutritional Formula 1,000 ml 30ML/HR GT 05/30/24 11:00 UNV Examination Intubated, on ventilator. Frail white man. On sedation. Not requiring vasopressor. Presence of suprapubic cath. and colostomy bag. Sedated and not mechanical ventilation. Head Exam: Normal inspection Neck Exam: Normal inspection. Non-tender. Normal alignment Pulmonary/Respiratory: Chest non-tender. Assisted breath sound with ventilation. Muffled breath sounds bilateral lung globe. Cardiovascular/Chest: Regular rate and rhythm. No murmurs. No JVD. Abdominal Exam: Normal bowel sounds. Soft. Nontender. No hepatospenomegaly. No masses presence of colostomy bag. Lower extremities: Negative lower extremity edema, right above-knee amputation, left-sided toe amputation. Neuro/Mental Status: Sedated. laboratory and microbiology Laboratory Tests 05/30/24 03:06 Test 05/30/24 03:06 Range/Units Serum Glucose 71 L 74-106 mg/dL Microbiology Date/Time Source Procedure Growth Status 05/29/24 12:15 Sacrum Gram Stain Pending Resulted 05/29/24 12:15 Sacrum Wound Culture - Preliminary Resulted 05/28/24 22:36 Urine - Catheterized Urine Culture - Preliminary Resulted 05/28/24 21:43 Blood Blood Culture - Preliminary Resulted 05/28/24 21:15 Sputum Gram Stain - Final Resulted 05/28/24 21:15 Sputum Respiratory Culture - Preliminary Resulted Problem List/Assessment/Plan Problem List/Assessment/Plan Acute metabolic encephalopathy due to uremia Sepsis due to UTI POA Y Severe anemia, HB 6 ? GI bleed FROYLAN on CKD stage 4, vasomotor mediated vs intrinsic NSTEMI type 2 due to demand ischemia Acute on chronic HFpEF Bilateral pleural effusion Anasarca Atrophic right kidney Cholelithiasis Hyperkalemia Metabolic acidosis Hyper natremia Hyperchloremia ? H/o hepatitis Decubitus ulcer POA y Extensive metabolic surgical hardware in spine Plan: -Underwent Broncosocpy today. Specimen sent to lab for culture/gram stain and cytology. -Mechanical ventilator: Volume control, respiratory rate 20, tidal volume 500, FiO2 30%, peep five. -ABG: PH improved from 7.059 to 7.219. Last ABG : PH 7.219, CO2 30.7, HC03 12.3. : -CT chest abdomen and pelvis: Large left and small right pleural effusions with bilateral pneumonia. Atrophic right kidney. Cholelithiasis. Shotty retroperitoneal lymphadenopathy. Advanced atherosclerotic disease. Diffuse anasarca. Decubitus ulcers. -Head CT: No acute intracranial hemorrhage -Given 2 units of PRBCs for CBC anemia. Monitor H&H. -Started IV Lasix 40 mg b.i.d. given patient has anasarca and pleural effusion. -Underwent thoracentesis(05/30/24): Removed around 2.5 L. -IV antibiotic with ampicillin and ceftriaxone for UTI(based on last visit sensitivity and culture report). Sensitivity and culture pending. Started vancomycin( given blood culture positive for G+. repeat culture today. -Cardiology: Conservative management, no intervention needed at this point -Nephrology: No emergent indication for acute hemodialysis -Stool occult negative -Can start vasopressor Levophed, target and MAP 65 mm hg if needed. -Strict I and O -Hold Nutrition via G-tube given questionable GI bleed -IV Protonix 40 b.i.d. for patient able GI bleed -DVT prophylaxis SCD, hold Lovenox given severe anemia. -line: Right IJ central line inserted on 05/29/2024 -intubated on 05/28/2024 -Informed all clinical notes, clinical status to son via phone. All questions answered. -Goals of care discussed greater than 22 minutes via phone with son, full code -Critical care time spent greater than 84 minutes outside of procedure time. Plan discussed with Dr. Rodríguez Transfer summary: Patient is 68-year-old male with past medical history of heart failure, CKD, hepatitis, questionable liver disease, DVT who brought to the hospital for altered mental status, intubated on 05/28/2024 for airway protection. During initial evaluation patient found to have severe anemia, metabolic acidosis, acute on chronic heart failure. Given severe anemia patient received 2 units of PRBCs, for metabolic acidosis patient is started on bicarb drip and started antibiotic ampicillin and ceftriaxone given recent history of UTI. Antibiotic initiated based on sensitivity and culture reports. Blood came back positive for Gram-positive, initiated vancomycin. Vancomycin can be discontinued after final results of culture if not MRSA. Patient also ordered left-sided thoracentesis for pleural effusion. For anasarca patient initiated on IV Lasix 40 mg which increased dose to 60 mg b.i.d. given minimal urine output. Patient has questionable intrinsic CKD, He will require high dose of Lasix. Plan discussed with: Son, Other (RN) My Orders My Orders Orders - OSWALDO STEWART Procedure Category Date Status Time Norepinephrine 8 PHA 05/29/24 In Process Mg/250ml Kit 11:30 * Dietary Consult CONS 05/29/24 Transmitted 13:41 Cleanse Wound With SUZAN 05/29/24 In Process Wound Clean 12:07 Cover Wound With Foam SUZAN 05/29/24 In Process Dressing 12:07 Chest Xray 1 View XY 05/30/24 Resulted 04:00 Abg W/ Co-Ox RT 05/29/24 Logged 17:17 * Radiologist Consult CONS 05/29/24 Transmitted 17:45 Ventilator Orders RT 05/30/24 Transmitted 06:11 Abg W/ Co-Ox RT 05/30/24 Logged 06:11 Ventilator Orders RT 05/30/24 Transmitted 07:32 Abg W/ Co-Ox RT 05/30/24 Logged 09:32 Thoracentesis US 05/30/24 Logged 08:29 Furosemide Injection PHA 05/30/24 Logged (Lasix Injection) 18:00 Nutritional PHA 05/30/24 Logged Supplements (Nepro 11:00 CC Plasma Assessment Blood Product Administration S: [id number] Date of Service: May 30, 2024 Billing Provider: MARK RODRÍGUEZ MD Common Visit Codes: [id number] CARE 30-74 MIN OSWALDO STEWART RESIDENT May 30, 2024 11:29 MARK RODRÍGUEZ MD May 30, 2024 13:45
--- NOTE | 2024-05-30 11:52 | DVH ---
US THORACENTESIS, HISTORY: LT PLEURAL EFFUSION PROCEDURE: Informed consent was obtained. The patient was decubitus on the bed. A limited localizatio n ultrasound of the left thorax was obtained, and the optimal approach was marked on the skin. The ar ea was prepped with chlorhexidine which was allowed to dry and draped in the usual sterile fashion. T catarina out was performed. The skin and the soft tissues were infiltrated with 1% lidocaine. A 5.5 Montserratian centesis needle catheter was advanced into left pleural space. Following aspiration of fluid, the ca theter was advanced and the needle removed. About 1550 cc of fluid was drained. Specimen/s was/were s ent for appropriate cultures/cytology/cultures and cytology. No immediate complication was identified . FINDINGS: Moderate left pleural effusion. Aspirated fluid is clear and serous. IMPRESSION: Left thoracentesis with 1.5L removed.
--- NOTE | 2024-05-30 12:11 | DVH ---
XY CHEST PORTABLE, HISTORY: POST THORA CXRAY COMPARISON: XY CHEST XRAY 1 VIEW on DOS: 05/30/24, XY CHEST XRAY 1 VIEW on DOS: 05/29/24, XY CHEST PO RTABLE on DOS: 05/28/24 XY CHEST XRAY 1 VIEW on DOS: 05/30/24, XY CHEST XRAY 1 VIEW on DOS: 05/29/24, XY CHEST PORTABLE on DO S: 05/28/24 TECHNICAL DATA: 1 view of the chest was obtained. FINDINGS: Lines and tubes: ET, NG right CVC in appropriate positioning. Cardiomediastinal silhouette: normal Pulmonary vasculature: normal Lung expansion: normal Lung airspace: Unchanged. Lung interstitium: normal Pleura: normal Pneumothorax: no Bones: Unremarkable Other: no IMPRESSION: Similar lung aeration bilaterally with resolution of prior left pleural effusion. No pneumothorax see n.
--- NOTE | 2024-05-30 12:24 | DVHINCON2 ---
GI Consult Consult Note GI consult note Date of Consultation: 05/30/2024 Chief Complaint: GI bleed Referring Physician: Dr. Robert H&P: 68-year-old male admitted with altered mental status. Patient is intubated and sedated History from chart, and resident Dr. Robert No melena or red blood in stool. No red blood from OGT Plan for thoracentesis and bronchoscopy today Patient is status post 2 units PRBC History of liver problems but unsure at this time Patient is status post colectomy with colostomy bag Patient on Eliquis per medication list Past Medical History: CHF, CKF, COPD, CVA, High Lipids, HTN, Liver, MA, PE Past Surgical History: AKA Social History: Smoker: Non-Smoker, Quit Greater Than 1 Year Alcohol: Occasionally Drugs: Denies Drug Use Lives In: Home Family History: Unknown Review of Systems: As above Physical exam: General: Patient is sedated and intubated Chest: lung pino clear to auscultation Heart: RRR, no murmur Abdomen: Soft, +BS, colostomy bag in place no melena or red blood in stool Labs: Test 05/30/24 03:06 Range/Units Serum Glucose 71 L 74-106 mg/dL Microbiology Date/Time Source Procedure Growth Status 05/29/24 12:15 Sacrum Gram Stain Pending Resulted 05/29/24 12:15 Sacrum Wound Culture - Preliminary Resulted 05/28/24 22:36 Urine - Catheterized Urine Culture - Preliminary Resulted 05/28/24 21:43 Blood Blood Culture - Preliminary Resulted 05/28/24 21:15 Sputum Gram Stain - Final Resulted 05/28/24 21:15 Sputum Respiratory Culture - Preliminary Resulted Imaging: CT abdomen pelvis and chest IMPRESSION: 1. Limited evaluation due to positioning with arms at patient's side. Extensive metallic artifact from surgical hardware in the spine and lack of intravenous contrast. Large left and small right pleural effusions with bilateral pneumonia. Atrophic right kidney. Cholelithiasis. Shotty retroperitoneal lymphadenopathy. Advanced atherosclerotic disease. Diffuse anasarca. Decubitus ulcers. Assessment: Severe anemia Acute metabolic encephalopathy due to uremia Cholelithiasis History of liver problems or hepatitis SP colectomy with colostomy bag Plan: Discussed with Dr. Lerner Monitor labs Hepatitis panel pending Protonix 40 mg IV b.i.d. Conservative management recommended at this time Dr. Lerner on standby if any active bleeding Discussed plan with Dr. Lerner and Dr. Robert Thank you for this consult Date of Service: May 30, 2024 Billing Provider: JESSICA MCCLELLAN Common Visit Codes: CONSULT ONLY Consultation Codes: [id number] CONSULT <60MIN JESSICA MCCLELLAN May 30, 2024 12:24
--- NOTE | 2024-05-30 12:55 | DVHNC2 ---
Other Procedure Procedure Bronchoscopy Operative Note Procedure Performed: 1. Flexible Bronchoscopy 2. Right lower lobe bronchial washing 3. Left lower lobe bronchial washing Anesthesia/Medication: Patient intubated and sedated Preoperative Diagnosis: Pneumonia Postoperative Diagnosis: Same Estimated Blood Loss: Less than 10 ml Consent: The risk, benefits, and alternatives of bronchoscopy were discussed with the patients who expressed understanding and agreed to proceed. Indications: Findings: No significant endobronchial lesions or abnormalities were seen. Description of the Procedure: Bronchoscope was introduced through the ET tube the bronchoscope was then inserted into the subglottic area, followed by the trachea, bilateral mainstem bronchi, and to the level of the subsegmental bronchi. There was no evidence of intrinsic or extrinsic compression. I could see a lot of mucus on the right side of the lung and especially in the right lower lobe. I suctioned out all the mucus and did right lower lobe bronchial washings. There was also mucus in the left lower lobe which I suctioned out.I then did left lower lobe bronchial washing. At this point, there was no evidence of any ongoing bleeding. The bronchoscope was then withdrawn and the patient was allowed to recover. Date of Service: May 30, 2024 Billing Provider: MARK RODRÍGUEZ MD Common Visit Codes: PROCEDURE ONLY Procedure Codes: [id number] MARK RODRÍGUEZ MD May 30, 2024 12:55
[2024-05-30 15:29] LABS: Body Fluid Polymorphonuclear 14 % (0-25); Body Fluid Red Blood Cells 842 CUMM (0-2000); Body Fluid White Blood Cells 479 CUMM (0-200)
[2024-05-30] MEDS: FUROSEMIDE 100 MG/10ML VIAL IV SCH (17:33)
--- NOTE | 2024-05-30 18:40 | DVHPN2 ---
Progress Note - Dictate Date Seen: May 30, 2024 Medical Necessity Reason Pt with a Central, PICC or Fol: Yes The following are medically ne: Central Line, Peralta Catheter vital signs Vital Sign Date Time Temp Pulse Resp B/P (MAP) Pulse Ox O2 Delivery O2 Flow Rate FiO2 05/30/24 18:00 100 22 154/72 (99) 95 05/30/24 18:00 30 05/30/24 18:00 Mechanical Ventilator+ 05/30/24 16:00 97.5 97.5 Total Intake and Output 05/29/24 05/29/24 05/30/24 15:00 23:00 07:00 Intake Total 581.0 ml 270.5 ml 479.0 ml Output Total 75 ml Balance 581.0 ml 270.5 ml 404.0 ml medications Current Medications Medications Dose Ordered Sig/[place] Route Start Time Stop Time Status Last Admin Dose Admin Midazolam HCl 50 ml @ 1 mls/hr Q24H IV 05/28/24 21:15 05/29/24 19:34 5 MLS/HR Vancomycin HCl 0 ml @ 0 mls/hr UD IV 05/29/24 00:00 Albuterol 2.5 mg Q6HPRN PRN NEB 05/29/24 00:00 Fentanyl Citrate 250 ml @ 2.5 mls/hr Q24H IV 05/29/24 01:15 05/30/24 10:03 12.5 MLS/HR Pantoprazole Sodium 40 mg BID IV 05/29/24 22:00 05/30/24 09:51 40 MG Ampicillin Sodium 1 gm/Sodium Chloride 100 ml @ 200 mls/hr Q6HR IV 05/29/24 12:00 05/30/24 17:33 200 MLS/HR Ceftriaxone Sodium/Dextrose 50 ml @ 50 mls/hr DAILY IV 05/30/24 10:00 05/30/24 10:47 50 MLS/HR Norepinephrine Bitartrate 250 ml @ 3.75 mls/hr Q24H IV 05/29/24 11:30 Furosemide 60 mg BIDD IV 05/30/24 18:00 05/30/24 17:33 60 MG Enteral Nutritional Formula 1,000 ml 30ML/HR GT 05/30/24 11:00 objective Critically ill-appearing elderly white male Intubated On sedation No pressors No JVD Regular rate and rhythm Abdomen nondistended non firm no guarding no fluid wave, colostomy has hard stool Suprapubic Peralta catheter Urine color is clear No pitting edema of the lower extremity Has upper extremity bilateral arm swelling laboratory and microbiology Laboratory Tests 05/30/24 03:06 Test 05/30/24 03:06 Range/Units Serum Glucose 71 L 74-106 mg/dL Assessment/Plan Acute kidney injury on chronic kidney disease stage 4 Hemodynamically mediated Acute respiratory failure Anemia suspected due to low blood loss s/p PRBC Hypernatremia Hypokalemia Metabolic acidosis Chronic urinary retention sepsis due to bacteremia Pressors to maintain mean arterial pressure greater than 65 cultures and IV ABX Recommend OG tube and start free water today. Strict Is&Os Avoid contrast studies No emergent indication for acute hemodialysis at this time as patient is making urine Patient is not a candidate for long-term hemodialysis treatment Critically ill Critical care time spent 36 minutes Dietary Evaluation Review Comments: 1) If GI is assessible consider Jevity 1.2 @ 60 ml/hr x24 hrs goal rate as tolerated 2) If pt remains NPO >7 days consider TPN to meet at least 75% of estimated needs 3) Advance pt diet when medically feasible to a Cardiac/Renal Specific K2,2gmNA,low phos,60g Pro diet modified per HUMAN RESOURCES ADVISOR recommendations 4) Continue current plan of care Expected Outcomes/Goals: 1) Pt to receive adequate nutrition support 2) Pt diet to advance Plan discussed with: Other CC Plasma Assessment Blood Product Administration S: [id number] ANNA ROMERO MD May 30, 2024 18:40
[2024-05-31] VITALS (109 sets, daily range): BP systolic 102–179; BP diastolic 50–80; PULSE 90–120; RESP 13–31; TEMP 97.3–99.3; O2SAT 85–100
[2024-05-31 04:34] LABS: Basophils # (auto) 0 10 ^3/uL (0-0.2); Basophils % (auto) 0.5 % (0.0-2.0); Eosinophils # (auto) 0 10 ^3/uL (0-0.8); Hemoglobin 8.1 g/dL (13.5-17.5); Nucleated Red Blood Cells % 0.1 %; White Blood Cell 5.6 10^3/uL (4.4-10.8)
[2024-05-31 04:36] LABS: Eosinophils % (auto) 0.5 % (0.0-7.0); Hematocrit 24.5 % (41.0-53.0); Lymphocytes # (auto) 0.3 10 ^3/uL (0.4-5.4); Lymphocytes % (auto) 5.9 % (10.0-50.0); Mean Corpuscular Hemoglobin 31.5 pg (28.0-32.0); Mean Corpuscular Hgb Conc. 33.1 g/dL (32.0-36.0); Mean Corpuscular Volume 95.1 fL (80.0-100.0); Monocytes # (auto) 0.4 10 ^3/uL (0-1.3); Monocytes % (auto) 6.3 % (0.0-12.0); Neutrophils # (auto) 4.8 10 ^3/uL (1.6-8.6); Neutrophils % (auto) 86.8 % (37.0-80.0); Platelet Count (auto) 94 10^3/uL (140-450); Red Blood Cells 2.57 10^6/uL (4.5-5.90); Red Cell Distribution Width 16.9 % (11.8-14.3)
[2024-05-31 04:52] LABS: Chloride 121 mmol/L (98-107); Potassium 4.4 mmol/L (3.5-5.1); Sodium 153 mmol/L (136-145)
[2024-05-31 04:53] LABS: Anion Gap 18 (5-15); Carbon Dioxide 14 mmol/L (20-31)
[2024-05-31 04:54] LABS: Calcium 8.7 mg/dL (8.7-10.4)
[2024-05-31 04:59] LABS: BUN/Creatinine Ratio 14.1 (10.0-20.0)
[2024-05-31 05:04] LABS: Blood Urea Nitrogen 110 mg/dL (9-23); Glucose 48 mg/dL (74-106)
[2024-05-31] MEDS: DEXTROSE 50% SYRINGE 50 ML IV ONE (05:13)
--- NOTE | 2024-05-31 05:28 | DVH ---
EXAM: XY CHEST XRAY 1 VIEW Indication:ON VENT Technique: Single frontal view of the chest was obtained Comparison: XY CHEST PORTABLE on DOS: 05/30/24, XY CHEST XRAY 1 VIEW on DOS: 05/30/24, XY CHEST XRAY 1 VIEW on DOS: 05/29/24, XY CHEST PORTABLE on DOS: 05/28/24, XY CHEST PORTABLE on DOS: 03/29/24 FINDINGS: Lines and Tubes: Endotracheal tube, enteric tube and right internal jugular central venous catheter t ip projects in appropriate position. Lungs: Diffuse airspace opacities. Pleura: No effusion. No pneumothorax. Cardiomediastinal contours: Unchanged. Bones: No acute osseous abnormality. IMPRESSION: No significant change compared to prior exam.
[2024-05-31] MEDS: DEXTROSE (50%) 50ML SYRG IV ONE (05:30)
[2024-05-31] MEDS ORDERED: DEXTROSE (50%) 50ML SYRG IV PRN ×2 (05:30→10:00)
[2024-05-31] MEDS: ACCU-CHEK COMFORT CURVE STRIP VI SCH ×2 (06:02→12:06)
[2024-05-31 08:28] LABS: Base Excess -13.5 mmol/L (-2.0-3.0)
[2024-05-31] MEDS: LINEZOLID 600MG/300ML 300 ML IV SCH (09:40)
--- NOTE | 2024-05-31 10:12 | DVHPN2 ---
Subjective Patient chemically sedated. Reviewed: Care Plan, H&P, Labs, Medications Changes from previous H/P or p: No Changes General: Per HPI Objective Vitals Vital Signs Date Time Temp Pulse Resp B/P (MAP) Pulse Ox O2 Delivery O2 Flow Rate FiO2 05/31/24 09:31 108 22 146/65 (92) 97 30 05/31/24 08:00 Mechanical Ventilator+ 05/31/24 08:00 98.4 209.1 Intake/Output Intake and Output 05/31/24 07:00 Intake Total 612.5 ml Output Total 1650 ml Balance -1037.5 ml IV Total 612.5 ml Output Urine Total 100 ml Other 1550 ml # Bowel Movements 1 General Appearance: Other (Chemically sedated) HEENT: Atraumatic, PERRLA Lungs: Other (Mechanical ventilation) Cardiovascular: Normal S1, Normal S2 Abdomen: Normal bowel sounds, Soft, No tenderness Genitourinary: No Apparent Abnormalities (Peralta catheter) Musculoskeletal: Other (No motor movement) Extremities: No clubbing, No cyanosis Skin: Wounds (See nurse notes and pictures) Medications Current Medications Medications Dose Ordered Sig/[place] Route Start Time Stop Time Status Last Admin Dose Admin Midazolam HCl 50 ml @ 1 mls/hr Q24H IV 05/28/24 21:15 05/29/24 19:34 5 MLS/HR Albuterol 2.5 mg Q6HPRN PRN NEB 05/29/24 00:00 Fentanyl Citrate 250 ml @ 2.5 mls/hr Q24H IV 05/29/24 01:15 05/31/24 04:44 12.5 MLS/HR Pantoprazole Sodium 40 mg BID IV 05/29/24 22:00 05/31/24 09:40 40 MG Norepinephrine Bitartrate 250 ml @ 3.75 mls/hr Q24H IV 05/29/24 11:30 Furosemide 60 mg BIDD IV 05/30/24 18:00 05/31/24 06:02 60 MG Enteral Nutritional Formula 1,000 ml 30ML/HR GT 05/30/24 11:00 Linezolid 300 ml @ 150 mls/hr Q12HR IV 05/31/24 10:00 05/31/24 09:40 150 MLS/HR Meropenem 50 ml @ 17 mls/hr DAILY IV 05/31/24 10:00 Purified Water 200 ml Q6HR GT 05/31/24 12:00 Diagnostic Test (Pha) 1 strip IQ4HR 05/31/24 12:00 UNV Insulin Human Regular IQ4HR SC 05/31/24 12:00 UNV Dextrose 50 ml UD PRN IV 05/31/24 10:00 UNV Iron Sucrose 110 ml @ 110 mls/hr DAILY@1200 IV 05/31/24 12:00 06/04/24 12:59 UNV Laboratory Results Laboratory Tests 05/31/24 03:14 Chemistry Test 05/31/24 03:14 Calcium Level 8.7 mg/dL (8.7-10.4) Urinalysis Test 05/28/24 22:36 05/30/24 04:30 Urine Color Dark-brown (Yellow) Urine Clarity Ex.turbid (Clear) Urine pH 6.0 (5.0-9.0) Urine Specific [place] 1.017 (1.001-1.035) Urine Protein 2+ (Negative) H Urine Ketones Trace (Negative) Urine Blood 1+ /uL (Negative) H Urine Nitrite Negative (Negative) Urine Bilirubin Negative (Negative) Urine Urobilinogen Normal mg/dL (Negative) Urine Leukocyte Esterase 3+ /uL (Negative) Urine RBC 56 /hpf (0 - 3) Urine WBC 3664 /hpf (0 - 3) Urine WBC Clumps Present /hpf (None Seen) Urine Squamous Epithelial Cells Many /hpf (<5) Urine Bacteria Mod /hpf (None Seen) H Urine Glucose Normal mg/dL (Normal) Urine Creatinine 33.57 mg/dL (30.0-125.0) Urine Sodium 85 mmol/L (40-220) Blood Gas Results Test 05/31/24 07:30 Arterial Blood pH 7.227 (7.350-7.450) FiO2 % 30.0 Microbiology Microbiology Date/Time Source Procedure Growth Status 05/30/24 11:45 Bronchial Washings Gram Stain Pending Resulted 05/30/24 11:45 Bronchial Washings Respiratory Culture - Preliminary Resulted 05/30/24 11:45 Pleural Fluid Received 05/29/24 12:15 Nose MRSA Screen - Final Complete 05/28/24 22:36 Urine - Catheterized Urine Culture - Preliminary Resulted 05/28/24 21:43 Blood Blood Culture - Preliminary Resulted Labs and/or images reviewed: Labs reviewed by me, Image(s) reviewed by me Assessment/Plan Assessment/Plan Impression: Acute metabolic encephalopathy due to uremia Sepsis due to UTI POA Y Severe anemia, HB 6 ? GI bleed FROYLAN on CKD stage 4, vasomotor mediated vs intrinsic NSTEMI type 2 due to demand ischemia Acute on chronic HFpEF Bilateral pleural effusion Anasarca Atrophic right kidney Cholelithiasis Hyperkalemia Metabolic acidosis Hyper natremia Hyperchloremia ? H/o hepatitis Decubitus ulcer POA Extensive metabolic surgical hardware in spine Plan: Events: noted persistent metabolic acidosis. Persistent decreased urine output with elevated BUN and creatinine. Please also in hyperchloremic gap acidosis. Persistent hypoglycemia. -sodium bicarbonate drip: D5W with 150 mEq sodium bicarbonate at 100 mL x1 L -CVP reading -change antibiotic coverage to Zyvox and ertapenem given previous growth, current Staph aureus growing in sputum, and renal function -continue current ventilator settings -nephrology consultation: Recommendations appreciated -wound care consult -continue current sedation -continue tube feeding -change to q.4 Accu-Cheks -repeat labs, chest x-ray, ABG in a.m. -poor prognosis Critical care time spent with patient discussing and formulating plan of care: 40 minutes. This does not include time spent performing procedures. This medical document was created using an electronic medical record system with [employer] dictation system. Although this document has been carefully reviewed, there may still be some phonetic and typographical errors. These areas are purely typographical due to imperfections of the software programs, and do not reflect any compromise in the patient's medical care. Plan discussed with: Patient, Other (RN) My Orders Orders - [facility] [employer] [employer] Procedure Category Date Status Time Linezolid 600mg/300ml PHA 05/31/24 In Process (Zyvox) 10:00 Meropenem 500mg Ivpb PHA 05/31/24 In Process (Merrem 500mg/Ns) 10:00 Sodium Bicarb PHA 05/31/24 In Process 50meq/50ml Vial 08:00 Free Water PHA 05/31/24 In Process 12:00 Cvp Monitoring ED NURSING 05/31/24 Transmitted Glucose Blood PHA 05/31/24 Logged (Accu-Chek Comfort 12:00 Insulin R (Human) PHA 05/31/24 Logged (Insulin R) 12:00 Dextrose 50% Syringe PHA 05/31/24 Logged 10:00 Iron Sucrose Complex PHA 05/31/24 Logged (Venofer) 12:00 Complete Blood Count LAB 06/01/24 Verified 05:00 Complete Blood Count LAB 06/02/24 Verified 05:00 Complete Blood Count LAB 06/03/24 Verified 05:00 Comprehensive LAB 06/01/24 Verified Metabolic Panel 05:00 Comprehensive LAB 06/02/24 Verified Metabolic Panel 05:00 Comprehensive LAB 06/03/24 Verified Metabolic Panel 05:00 Chest Xray 1 View XY 06/01/24 Logged 05:00 Chest Xray 1 View XY 06/02/24 Logged 05:00 Date of Service: May 31, 2024 Billing Provider: BREN NEVES NP Common Visit Codes: [id number] CARE 30-74 MIN BREN NEVES NP May 31, 2024 10:12
[2024-05-31] MEDS: SODIUM BICARB 50mEq/50ml Vial 150 ML in D5W 5% 1,000 ML IV ONE ×2 (10:30→21:38)
[2024-05-31] MEDS: InsuLIN REG 1unit/0.01ml Soln (100units/ml) SC SCH (12:00)
[2024-05-31 12:06] LABS: Protein, Body Fluid 2.4 g/dL (.)
[2024-05-31] MEDS: IRON SUCROSE COMPLEX 110 ML IV SCH (12:27)
[2024-05-31] MEDS: FREE WATER GT SCH (12:42)
--- NOTE | 2024-05-31 13:05 | DVHPN2 ---
Progress Note - Dictate Date Seen: May 31, 2024 Medical Necessity Reason Pt with a Central, PICC or Fol: Yes The following are medically ne: Central Line, Peralta Catheter vital signs Vital Sign Date Time Temp Pulse Resp B/P (MAP) Pulse Ox O2 Delivery O2 Flow Rate FiO2 05/31/24 12:00 107 05/31/24 12:00 30 05/31/24 12:00 22 97 Mechanical Ventilator+ 05/31/24 12:00 98.6 176/68 (104) 209.5 Total Intake and Output 05/30/24 05/30/24 05/31/24 15:00 23:00 07:00 Intake Total 250.0 ml 200.0 ml 175.0 ml Output Total 1625 ml 25 ml Balance 250.0 ml -1425.0 ml 150.0 ml medications Current Medications Medications Dose Ordered Sig/[place] Route Start Time Stop Time Status Last Admin Dose Admin Midazolam HCl 50 ml @ 1 mls/hr Q24H IV 05/28/24 21:15 05/29/24 19:34 5 MLS/HR Albuterol 2.5 mg Q6HPRN PRN NEB 05/29/24 00:00 Fentanyl Citrate 250 ml @ 2.5 mls/hr Q24H IV 05/29/24 01:15 05/31/24 04:44 12.5 MLS/HR Pantoprazole Sodium 40 mg BID IV 05/29/24 22:00 05/31/24 09:40 40 MG Norepinephrine Bitartrate 250 ml @ 3.75 mls/hr Q24H IV 05/29/24 11:30 Furosemide 60 mg BIDD IV 05/30/24 18:00 05/31/24 06:02 60 MG Enteral Nutritional Formula 1,000 ml 30ML/HR GT 05/30/24 11:00 Linezolid 300 ml @ 150 mls/hr Q12HR IV 05/31/24 10:00 05/31/24 09:40 150 MLS/HR Meropenem 50 ml @ 17 mls/hr DAILY IV 05/31/24 10:00 Purified Water 200 ml Q6HR GT 05/31/24 12:00 05/31/24 12:42 200 ML Diagnostic Test (Pha) 1 strip IQ4HR 05/31/24 12:00 05/31/24 12:06 1 STRIP Insulin Human Regular IQ4HR SC 05/31/24 12:00 Dextrose 50 ml UD PRN IV 05/31/24 10:00 Iron Sucrose 110 ml @ 110 mls/hr DAILY@1200 IV 05/31/24 12:00 06/04/24 12:59 05/31/24 12:27 110 MLS/HR objective Critically ill-appearing elderly white male Intubated On sedation No pressors No JVD Regular rate and rhythm Abdomen nondistended non firm no guarding no fluid wave, colostomy has hard stool Suprapubic Peralta catheter Urine color is clear No pitting edema of the lower extremity Has upper extremity bilateral arm swelling laboratory and microbiology Laboratory Tests 05/31/24 03:14 Test 05/31/24 03:14 Range/Units Serum Glucose 48 *L 74-106 mg/dL Assessment/Plan Acute kidney injury on chronic kidney disease stage 4 Hemodynamically mediated Acute respiratory failure Anemia suspected due to low blood loss s/p PRBC Hypernatremia Hypokalemia Metabolic acidosis Chronic urinary retention sepsis due to bacteremia Worsening acidosis agree with starting sodium bicarbonate drip Increase diuretic dose due to decreased urinary output We will discuss possibility of acute dialysis if fails medical therapy. Pressors to maintain mean arterial pressure greater than 65 cultures and IV ABX Recommend OG tube and start free water today. Strict Is&Os Avoid contrast studies Critically ill Poor candidate for long-term dialysis Critical care time spent 36 minutes Dietary Evaluation Review Comments: 1) If GI is assessible consider Jevity 1.2 @ 60 ml/hr x24 hrs goal rate as tolerated 2) If pt remains NPO >7 days consider TPN to meet at least 75% of estimated needs 3) Advance pt diet when medically feasible to a Cardiac/Renal Specific K2,2gmNA,low phos,60g Pro diet modified per [facility] [employer] AND STRATEGIC ANALYSIS recommendations 4) Continue current plan of care Expected Outcomes/Goals: 1) Pt to receive adequate nutrition support 2) Pt diet to advance Plan discussed with: Other CC Plasma Assessment Blood Product Administration S: [id number] ANNA ROMERO MD May 31, 2024 13:05
[2024-05-31] MEDS: MEROPENEM 500MG IVPB 50 ML IV SCH (13:51)
[2024-05-31] MEDS: FUROSEMIDE 100 MG/10ML VIAL IV SCH (13:51)
[2024-05-31] MEDS: metOLazone 5 MG TAB PO ONE (13:52)
--- NOTE | 2024-05-31 21:35 | DVHINCON2 ---
Date of service: May 31, 2024 Referring Physician Anthony Ugalde NP Reason for Consultation Acute hypoxic respiratory failure requiring mechanical vent, multifocal pneumonia and atelectasis. History of Present Illness A 68-year-old man with past medical history of Chronic kidney disease, CHF, COPD , dyslipidemia, hypertension, CVA, liver disease, and VT who presented to the hospital on 05/28/24 for evaluation of altered mental status. Patient was noted by family members to become progressively more altered over 3 days prior to presentation. On arrival, patient was unresponsive and had to be emergently intubated for airway protection. No further history could be obtained. Patient was admitted for further care. Pulmonary consultation is requested for evaluation and management of acute hypoxic respiratory failure requiring mechanical vent, multifocal pneumonia and atelectasis. Review of Systems: ROS could not be obtained due to ventilated status. Past Medical History: Chronic kidney disease, CHF, COPD, dyslipidemia, hypertension, CVA, liver disease, VT Past Surgical History: Right AKA, partial left foot amputation Medications: Reviewed. Allergies: Meperidine. Family History: No family history of premature CAD. No family history of lung disorders. Social History: Nonsmoker. Occasional alcohol use. No illicit drug use. Family History: Cerebrovascular accident (CVA) G8 FATHER Allergies: Coded Allergies: Meperidine (Verified Allergy, Unknown, 04/18/23) Home Meds Active Scripts Sevelamer Hydrochloride (Renagel) 800 Mg Tab, 800 MG PO TIDWM for 30 Days, #90 TAB Prov:DORA DELGADILLO MD 04/03/24 Sodium Bicarbonate (Sodium Bicarbonate) 650 Mg Tab, 650 MG PO QID for 14 Days, #56 TAB Prov:DORA DELGADILLO MD 04/03/24 Levetiracetam (KEPPRA TABLET) 500 Mg Tb, 750 MG PO BID for 30 Days, #90 TAB Prov:DORA DELGADILLO MD 04/03/24 Carvedilol (COREG) 3.125 Mg Tab, 6.25 MG PO Q12HR, #60 TAB Prov:MALCOLM WILLOUGHBY MD 08/21/18 Atorvastatin Calcium (ATORVASTATIN CALCIUM) 20 Mg Tab, 40 MG PO DAILY, #30 TAB Prov:MALCOLM WILLOUGHBY MD 08/21/18 Reported Medications Bumetanide (Bumetanide) 1 Mg Tab, 1 TAB PO DAILY for 30 Days, #30 9/9/24 Metolazone (Metolazone) 10 Mg Tab, 1 TAB PO DAILY for 30 Days, #30 03/24/24 Gabapentin (Gabapentin) 100 Mg Cap, 800 MG PO Q8HR PRN for 30 Days, #90 03/24/24 Hydralazine Hcl (Hydralazine Hcl) 100 Mg Tab, 1 TAB PO Q12HR for 15 Days, #30 03/24/24 Clonidine Hydrochloride (Clonidine Hydrocloride) 0.1 Mg Tab, 0.2 MG PO Q8HR PRN for 30 Days, #90 03/24/24 Lorazepam (Lorazepam) 0.5 Mg Tab, 0.25 MG PO DAILYPRN PRN for ANXIETY, TAB 12/30/23 Ped Multivitamins W/Fl & Iron (Multi-Vit/Iron/Fluoride) /Fl 0.25 August, 1 ML PO DAILY, #100 ML 3 Refills 12/30/23 Sertraline Hcl (Zoloft) 25 Mg Tab, 1 TAB PO DAILY for 30 Days 12/30/23 Hydrocodone-Acetaminophen (Hydrocodone Bitartrate/AC 5-325 mg) 1 Tab Tab, 1 TAB PO QIDPRN PRN for PAIN SCALE 1 THRU 6, TAB 12/30/23 Famotidine (Famotidine) 20 Mg Tab, 1 TAB PO DAILY for 30 Days, #30 12/30/23 Bisacodyl (Dulcolax) 10 Mg Sup, 100 MG PO DAILY, SUPP 12/30/23 Fluticasone Propionate (Nasal) (Fluticasone Propionate Na) 50 Mcg/Act Spr, 1 SPRAY PARKER BID 11/06/23 Memantine HCl (Memantine Hydrochloride) 5 Mg Tab, 1 TAB PO DAILY 11/06/23 Levothyroxine Sodium (Levothyroxine Sodium) 50 Mcg Tab, 1 TAB PO QAM for 30 Days, #30 05/29/23 Apixaban Base (ELIQUIS) 2.5 Mg Tab, 1 TAB PO BID for 30 Days, #60 11/27/22 Amlodipine Besylate (Amlodipine Besylate) 10 Mg Tab, 1 TAB PO DAILY 11/27/22 Current Medications Current Medications Medications (Trade) Dose Ordered Sig/[place] Route PRN Reason Start Time Stop Time Status Last Admin Diagnostic Test (Pha) (Accu-Chek Comfort Curve T) 1 strip Q6HR 05/31/24 06:00 05/31/24 10:05 DC 05/31/24 06:02 Dextrose 50 ml UD PRN IV Blood Sugar LESS THAN 60 05/31/24 05:30 05/31/24 10:05 DC Linezolid 300 ml @ 150 mls/hr Q12HR IV 05/31/24 10:00 05/31/24 09:40 Meropenem 50 ml @ 17 mls/hr DAILY IV 05/31/24 10:00 05/31/24 13:51 Purified Water 200 ml Q6HR GT 05/31/24 12:00 05/31/24 16:39 Diagnostic Test (Pha) (Accu-Chek Comfort Curve T) 1 strip IQ4HR 05/31/24 12:00 05/31/24 20:00 Insulin Human Regular (InsuLIN R) IQ4HR SC 05/31/24 12:00 Dextrose 50 ml UD PRN IV Blood Sugar LESS THAN 60 05/31/24 10:00 Iron Sucrose 110 ml @ 110 mls/hr DAILY@1200 IV 05/31/24 12:00 06/04/24 12:59 05/31/24 12:27 Furosemide (Lasix Injection) 80 mg Q6HR IV 05/31/24 13:15 05/31/24 16:38 Vital Signs Vital Signs Date Time Temp Pulse Resp B/P (MAP) Pulse Ox O2 Delivery O2 Flow Rate FiO2 05/31/24 20:44 94 22 126/60 (82) 97 30 05/31/24 20:30 99.1 210.4 05/31/24 19:30 Mechanical Ventilator+ Physical Exam Gen.: Patient lying in bed in medical ICU. Sedated, intubated on mechanical ventilator. Head: Normocephalic, atraumatic. Eyes: PERRLA. Ears: Normal external anatomy. Throat: Endotracheal tube and orogastric tube in place. Neck: Supple, trachea midline. Chest: Transmitted breath sounds bilaterally. Decreased air entry bilaterally. No wheezing. Bibasilar crackles. Cardiovascular: Positive S1, positive S2. Regular rate and rhythm. Abdomen: Positive bowel sounds in all 4 quadrants. Soft, nontender, nondistended. : Peralta in place. Normal external genitalia. Rectal: Deferred. Skin: Warm, dry. Intact. Extremities: 2+ radial pulses bilaterally. No lower extremity edema. Neuro: Sedated. Labs/Diagnostic Data Labs Test 05/31/24 19:34 05/31/24 07:30 05/31/24 03:14 05/30/24 11:45 Range/Units POC Glucose 92 70-106 mg/dl Blood Gas Specimen Type Arterial Blood Gas Sample Site Left radial Blood Gas Patient Temperature 37.0 Arterial Blood Date Drawn [id number] Arterial Blood pH 7.227 *L 7.350-7.450 Arterial Blood Partial Pressure CO2 31.7 L 35.0-48.0 mmHg Arterial Blood Partial Pressure O2 89.8 83.0-108.0 mmHg Arterial Blood HCO3 12.9 L 21.0-28.0 mmol/L Arterial Blood Oxygen Saturation 94.6 94.0-98.0 % Arterial Blood Base Excess -13.5 L -2.0-3.0 mmol/L Arterial Blood Oxyhemoglobin 93.9 L 94.0-98.0 % Arterial Blood Carboxyhemoglobin 0.3 L 0.5-1.5 % Arterial Blood Methemoglobin 0.4 0.0-1.5 % Bruno Test Modified Blood Gas Total Hemoglobin 7.70 L 13.5-17.5 g/dL Blood Gas Set Respiration Rate 22.0 Blood Gas Modality Vent - ac FiO2 % 30.0 Blood Gas Tidal Volume 500.0 Blood Gas PEEP or CPAP 5.0 Blood Gas Critical Value Read Back Yes Blood Gas Notified Whom Kana gomes Blood Gas Notified Time [id number] Blood Gas Notified By Nanda newman White Blood Count 5.6 # 4.4-10.8 10^3/uL Red Blood Count 2.57 L 4.5-5.90 10^6/uL Hemoglobin 8.1 L 13.5-17.5 g/dL Hematocrit 24.5 #L 41.0-53.0 % Mean Corpuscular Volume 95.1 80.0-100.0 fL Mean Corpuscular Hemoglobin 31.5 28.0-32.0 pg Mean Corpuscular Hemoglobin Concent 33.1 32.0-36.0 g/dL Red Cell Distribution Width 16.9 H 11.8-14.3 % Platelet Count 94 L 140-450 10^3/uL Mean Platelet Volume 7.6 6.9-10.8 fL Neutrophils (%) (Auto) 86.8 H 37.0-80.0 % Lymphocytes (%) (Auto) 5.9 L 10.0-50.0 % Monocytes (%) (Auto) 6.3 0.0-12.0 % Eosinophils (%) (Auto) 0.5 0.0-7.0 % Basophils (%) (Auto) 0.5 0.0-2.0 % Neutrophils # (Auto) 4.8 1.6-8.6 10 ^3/uL Lymphocytes # (Auto) 0.3 L 0.4-5.4 10 ^3/uL Monocytes # (Auto) 0.4 0-1.3 10 ^3/uL Eosinophils # (Auto) 0 0-0.8 10 ^3/uL Basophils # (Auto) 0 0-0.2 10 ^3/uL Nucleated Red Blood Cells 0.1 % Sodium Level 153 H 136-145 mmol/L Potassium Level 4.4 3.5-5.1 mmol/L Chloride Level 121 H 98-107 mmol/L Carbon Dioxide Level 14 L 20-31 mmol/L Anion Gap 18 H 5-15 Blood Urea Nitrogen 110 *H 9-23 mg/dL Creatinine 7.78 H 0.700-1.30 mg/dL Glomerular Filtration Rate Calc 7 >90 mL/min BUN/Creatinine Ratio 14.1 10.0-20.0 Serum Glucose 48 *L 74-106 mg/dL Calcium Level 8.7 8.7-10.4 mg/dL Random Vancomycin Level 20.1 H 5-10 ug/mL Body Fluid Source Pleural fluid Body Fluid pH 7.0 Body Fluid WBC (Manual) 479 H 0-200 CUMM Body Fluid RBC (Manual) 842 0-2000 CUMM Body Fluid Mononuclear Cells 86 % Body Fluid Polymorphonuclear Cells 14 0-25 % Body Fluid Glucose 68 . mg/dL Body Fluid Total Protein 2.4 . g/dL Body Fluid Lactate Dehydrogenase 101 . IU/L Test 05/30/24 10:07 05/30/24 04:30 05/30/24 03:06 05/29/24 14:00 Range/Units Iron Level 54 L 65-175 ug/dL Total Iron Binding Capacity 132 L 250-425 ug/dL Percent Iron Saturation 40.9 20-55 % Urine Creatinine 33.57 30.0-125.0 mg/dL Urine Sodium 85 40-220 mmol/L Urine Opiates Screen Neg NEGATIVE Urine Fentanyl Screen Pos NEGATIVE Urine Barbiturates Screen Neg NEGATIVE Urine Phencyclidine Screen Neg NEGATIVE Urine Amphetamines Screen Neg NEGATIVE Urine Benzodiazepines Screen Pos NEGATIVE Urine Cocaine Screen Neg NEGATIVE Urine Cannabinoids Screen Neg NEGATIVE Differential Total Cells Counted 100.0 100 Neutrophils % (Manual) 63 37.0-80.0 Band Neutrophils % (Manual) 0 Lymphocytes % (Manual) 18 10.0-50.0 Monocytes % (Manual) 4 0-12 Eosinophils % (Manual) 15 H 0-7 Basophils % (Manual) 0 0.0-2.0 Metamyelocytes % (manual) 0 Myelocytes % (Manual) 0 Promyelocytes % (Manual) 0 Blast Cells % (Manual) 0 Reactive Lymphocytes 0 Platelet Estimate Decreased Lactate Dehydrogenase 149 120-246 U/L Stool Occult Blood Negative Negative Stool Occult Blood Sample #3 Negative Test 05/29/24 08:30 05/29/24 00:21 05/28/24 22:36 05/28/24 21:43 Range/Units Lactic Acid Level 0.5 0.4-2.0 mmol/L Total Bilirubin 0.2 0.2-1.0 mg/dL Aspartate Amino Transferase (AST) 16 13-40 U/L Alanine Aminotransferase (ALT) < 9 7-40 U/L Alkaline Phosphatase 60 46-116 U/L Total Protein 5.7 5.7-8.2 g/dL Albumin 2.4 L 3.2-4.8 g/dL Thyroid Stimulating Hormone (TSH) 2.47 0.55-4.78 uIU/mL Troponin I High Sensitivity 118 *H </=54 ng/L Urine Color Dark-brown Yellow Urine Clarity Ex.turbid Clear Urine pH 6.0 5.0-9.0 Urine Specific [place] 1.017 1.001-1.035 Urine Protein 2+ H Negative Urine Ketones Trace Negative Urine Blood 1+ H Negative /uL Urine Nitrite Negative Negative Urine Bilirubin Negative Negative Urine Urobilinogen Normal Negative mg/dL Urine Leukocyte Esterase 3+ Negative /uL Urine RBC 56 0 - 3 /hpf Urine WBC 3664 0 - 3 /hpf Urine WBC Clumps Present None Seen /hpf Urine Squamous Epithelial Cells Many <5 /hpf Urine Bacteria Mod H None Seen /hpf Urine Glucose Normal Normal mg/dL Anisocytosis (manual) Slight Macrocytosis Slight Prothrombin Time 11.6 9.3-11.8 sec Prothrombin Time INR 1.10 0.9-1.15 Activated Partial Thromboplast Time 33.5 24.5-34.5 SEC Magnesium Level 2.5 1.6-2.6 mg/dL B-Type Natriuretic Peptide 1188.79 0-100 pg/mL Microbiology Date/Time Source Procedure Growth Status 05/30/24 11:45 Bronchial Washings Gram Stain - Final Resulted 05/30/24 11:45 Bronchial Washings Respiratory Culture - Preliminary Resulted 05/30/24 11:45 Pleural Fluid Gram Stain - Final Resulted 05/30/24 11:45 Pleural Fluid Body Fluid Culture - Preliminary Resulted 05/29/24 12:15 Nose MRSA Screen - Final Complete 05/28/24 22:36 Urine - Catheterized Urine Culture - Preliminary Resulted 05/28/24 21:43 Blood Blood Culture - Preliminary Staphylococcus capitis Resulted Assessment Impression: Acute hypoxic respiratory failure On mechanical ventilator Multifocal pneumonia Atelectasis Congestive heart failure Plan: s/p intubation on mechanical ventilator. On AC mode; RR 22, VT 500, PEEP 5, FiO2 of 30%. ABG reviewed, notable for acidemia CXR reviewed, demonstrated e/o multifocal pneumonia, devices in place. Titrate FIO2 to keep O2 saturation above 90%. VAP bundle. Daily ABG and CXR while intubated Sedated for ventilator synchrony - on Fentanyl Antibiotics F/u cultures. IV fluids at 100 ml/hr Diurese to euvolemia Monitor renal function Monitor electrolytes. Supplement as necessary. Monitor ins and outs. Tube feeds for nutritional support. GI prophylaxis. DVT prophylaxis. Prognosis: Poor given patient's multiple co-morbidities. Condition: Critical Rest of plan per hospitalist and other consultants. A total of 35 minutes of critical care time was spent reviewing the patient record, examining the patient, making a diagnostic and therapeutic plan, discussing this plan with the medical personnel, following up on diagnostic studies and following the patient for clinical stability excluding any and all procedures. At least 50% of this time was spent in direct, [id number] contact. Thank you Anthony Ugalde NP, for allowing me to participate in this patient's care. Further recommendations will depend on the patient's clinical course. Please do not hesitate to contact me if you have any questions or concerns. This medical document was created using an electronic medical record system with Dragon computerized dictation system. Although these documentations are being carefully reviewed, there may still be some phonetic and typographical changes. The errors are purely typographical, due to imperfection on the software program, and do not reflect any compromise in the patient's medical care. Plan discussed with: Other (DORCAS Palmer, JES Ugalde MD) ELIANE ALTAMIRANO MD May 31, 2024 21:35
--- NOTE | 2024-05-31 21:42 | DVHPN2 ---
Progress Note - Dictate Date Seen: May 31, 2024 Medical Necessity Reason Pt with a Central, PICC or Fol: Yes The following are medically ne: Central Line, Peralta Catheter Subjective Patient is still intubated sedated No GI bleeding is reported Patient has been started on tube feedings with Nepro at 10 mL/hour with a goal of 30 per hour vital signs Vital Sign Date Time Temp Pulse Resp B/P (MAP) Pulse Ox O2 Delivery O2 Flow Rate FiO2 05/31/24 20:44 94 22 126/60 (82) 97 30 05/31/24 20:30 99.1 210.4 05/31/24 19:30 Mechanical Ventilator+ Total Intake and Output 05/30/24 05/30/24 05/31/24 15:00 23:00 07:00 Intake Total 250.0 ml 200.0 ml 175.0 ml Output Total 1625 ml 25 ml Balance 250.0 ml -1425.0 ml 150.0 ml medications Current Medications Medications Dose Ordered Sig/[place] Route Start Time Stop Time Status Last Admin Dose Admin Midazolam HCl 50 ml @ 1 mls/hr Q24H IV 05/28/24 21:15 05/29/24 19:34 5 MLS/HR Albuterol 2.5 mg Q6HPRN PRN NEB 05/29/24 00:00 Fentanyl Citrate 250 ml @ 2.5 mls/hr Q24H IV 05/29/24 01:15 05/31/24 04:44 12.5 MLS/HR Pantoprazole Sodium 40 mg BID IV 05/29/24 22:00 05/31/24 09:40 40 MG Norepinephrine Bitartrate 250 ml @ 3.75 mls/hr Q24H IV 05/29/24 11:30 Enteral Nutritional Formula 1,000 ml 30ML/HR GT 05/30/24 11:00 Linezolid 300 ml @ 150 mls/hr Q12HR IV 05/31/24 10:00 05/31/24 09:40 150 MLS/HR Meropenem 50 ml @ 17 mls/hr DAILY IV 05/31/24 10:00 05/31/24 13:51 17 MLS/HR Purified Water 200 ml Q6HR GT 05/31/24 12:00 05/31/24 16:39 200 ML Diagnostic Test (Pha) 1 strip IQ4HR 05/31/24 12:00 05/31/24 20:00 1 STRIP Insulin Human Regular IQ4HR SC 05/31/24 12:00 Dextrose 50 ml UD PRN IV 05/31/24 10:00 Iron Sucrose 110 ml @ 110 mls/hr DAILY@1200 IV 05/31/24 12:00 06/04/24 12:59 05/31/24 12:27 110 MLS/HR Furosemide 80 mg Q6HR IV 05/31/24 13:15 05/31/24 16:38 80 MG objective Critically ill-appearing elderly white male; Intubatedand sedated CVS: Regular rate and rhythm Abdomen nondistended non firm no guarding no fluid wave, colostomy has hard stool Suprapubic Peralta catheter No pitting edema of the lower extremity Has upper extremity bilateral arm swelling laboratory and microbiology Laboratory Tests 05/31/24 03:14 Test 05/31/24 03:14 Range/Units Serum Glucose 48 *L 74-106 mg/dL Problems(with codes): (1) Altered mental status (2) Pneumonia (3) Metabolic encephalopathy (4) Sepsis (5) Anemia Prognosis Assessment plan Stool for occult blood is negative No active GI bleeding reported Advance tube feedings as tolerated Protonix 40 mg IV daily Monitor labs I will follow as needed Dietary Evaluation Review Comments: 1) If GI is assessible consider Jevity 1.2 @ 60 ml/hr x24 hrs goal rate as tolerated 2) If pt remains NPO >7 days consider TPN to meet at least 75% of estimated needs 3) Advance pt diet when medically feasible to a Cardiac/Renal Specific K2,2gmNA,low phos,60g Pro diet modified per [employer] OPERATOR recommendations 4) Continue current plan of care Expected Outcomes/Goals: 1) Pt to receive adequate nutrition support 2) Pt diet to advance Plan discussed with: Other (ICU Nurse) CC Plasma Assessment Blood Product Administration S: [id number] [place] TOPETE MD May 31, 2024 21:42
[2024-06-01] VITALS (113 sets, daily range): BP systolic 108–185; BP diastolic 52–82; PULSE 72–165; RESP 12–29; TEMP 97.3–99; O2SAT 93–100
[2024-06-01 03:33] LABS: Basophils # (auto) 0 10 ^3/uL (0-0.2); Basophils % (auto) 0.4 % (0.0-2.0); Lymphocytes # (auto) 0.7 10 ^3/uL (0.4-5.4); Monocytes # (auto) 0.4 10 ^3/uL (0-1.3); Neutrophils % (auto) 72.7 % (37.0-80.0)
[2024-06-01 03:36] LABS: Eosinophils # (auto) 0.5 10 ^3/uL (0-0.8); Eosinophils % (auto) 8.1 % (0.0-7.0); Hematocrit 21.1 % (41.0-53.0); Hemoglobin 7.1 g/dL (13.5-17.5); Lymphocytes % (auto) 12.3 % (10.0-50.0); Mean Corpuscular Hemoglobin 31.7 pg (28.0-32.0); Mean Corpuscular Hgb Conc. 33.4 g/dL (32.0-36.0); Mean Corpuscular Volume 94.9 fL (80.0-100.0); Monocytes % (auto) 6.5 % (0.0-12.0); Neutrophils # (auto) 4.2 10 ^3/uL (1.6-8.6); Nucleated Red Blood Cells % 0.1 %; Platelet Count (auto) 92 10^3/uL (140-450); Red Blood Cells 2.23 10^6/uL (4.5-5.90); White Blood Cell 5.8 10^3/uL (4.4-10.8)
[2024-06-01 03:52] LABS: Albumin 2.3 g/dL (3.2-4.8); Alkaline Phosphatase 66 U/L (46-116); Anion Gap 16 (5-15); Aspartate Aminotransferase 17 U/L (13-40); BUN/Creatinine Ratio 12.8 (10.0-20.0); Bilirubin, Total < 0.2 mg/dL (0.2-1.0); Calcium 8.5 mg/dL (8.7-10.4); Carbon Dioxide 18 mmol/L (20-31); Chloride 116 mmol/L (98-107); Glucose 115 mg/dL (74-106); Potassium 3.8 mmol/L (3.5-5.1); Sodium 150 mmol/L (136-145); Total Protein 5.3 g/dL (5.7-8.2)
[2024-06-01 04:14] LABS: Alanine Aminotransferase < 9 U/L (7-40)
[2024-06-01 04:15] LABS: Blood Urea Nitrogen 105 mg/dL (9-23)
[2024-06-01] MEDS: METOPROLOL TARTRATE 1MG/1ML-5ML VIAL IV SCH (04:58)
[2024-06-01] MEDS: METOPROLOL TARTRATE 1MG/1ML-5ML VIAL IV ONE (04:59)
--- NOTE | 2024-06-01 05:48 | DVH ---
EXAM: XY CHEST XRAY 1 VIEW Indication:pna Technique: Single frontal view of the chest was obtained Comparison: XY CHEST XRAY 1 VIEW on DOS: 05/31/24, XY CHEST PORTABLE on DOS: 05/30/24, XY CHEST XRAY 1 VIEW on DOS: 05/30/24, XY CHEST XRAY 1 VIEW on DOS: 05/29/24, XY CHEST PORTABLE on DOS: 05/28/24, X Y CHEST XRAY 1 VIEW on DOS: 05/31/24 FINDINGS: Lines and Tubes: Endotracheal tube, enteric tube and right internal jugular central venous catheter t ip projects in appropriate position. Lungs: Diffuse airspace opacities. Pleura: No effusion. No pneumothorax. Cardiomediastinal contours: Unchanged. Bones: No acute osseous abnormality. IMPRESSION: No significant change compared to prior exam.
[2024-06-01 07:36] LABS: Uric Acid 9.3 mg/dL (3.7-9.2)
[2024-06-01 07:39] LABS: Phosphorus 8.4 mg/dL (2.4-5.1)
[2024-06-01 07:55] LABS: Base Excess -7.7 mmol/L (-2.0-3.0)
--- NOTE | 2024-06-01 08:29 | DVHPN2 ---
Progress Note - Dictate Date Seen: Jun 01, 2024 Medical Necessity Reason Pt with a Central, PICC or Fol: Yes The following are medically ne: Central Line, Peralta Catheter Subjective Patient is still intubated sedated No GI bleeding is reported Hemoglobin did drop down to 7.1 Stool for occult blood was negative Patient is receiving IV iron Patient is tolerating Nepro at 30 mL/hour with no residuals There has been no bowel movement reported vital signs Vital Sign Date Time Temp Pulse Resp B/P (MAP) Pulse Ox O2 Delivery O2 Flow Rate FiO2 06/01/24 08:05 86 22 125/64 (84) 96 30 06/01/24 06:45 98.1 208.6 06/01/24 06:17 Mechanical Ventilator+ Total Intake and Output 05/31/24 05/31/24 06/01/24 14:59 22:59 06:59 Intake Total 960.0 ml 1613.0 ml 1769.5 ml Output Total 25 ml 75 ml Balance 960.0 ml 1588.0 ml 1694.5 ml medications Current Medications Medications Dose Ordered Sig/[place] Route Start Time Stop Time Status Last Admin Dose Admin Midazolam HCl 50 ml @ 1 mls/hr Q24H IV 05/28/24 21:15 06/01/24 05:39 1 MLS/HR Albuterol 2.5 mg Q6HPRN PRN NEB 05/29/24 00:00 Fentanyl Citrate 250 ml @ 2.5 mls/hr Q24H IV 05/29/24 01:15 05/31/24 04:44 12.5 MLS/HR Pantoprazole Sodium 40 mg BID IV 05/29/24 22:00 06/01/24 07:33 40 MG Norepinephrine Bitartrate 250 ml @ 3.75 mls/hr Q24H IV 05/29/24 11:30 Enteral Nutritional Formula 1,000 ml 30ML/HR GT 05/30/24 11:00 Linezolid 300 ml @ 150 mls/hr Q12HR IV 05/31/24 10:00 06/01/24 07:33 150 MLS/HR Meropenem 50 ml @ 17 mls/hr DAILY IV 05/31/24 10:00 05/31/24 13:51 17 MLS/HR Purified Water 200 ml Q6HR GT 05/31/24 12:00 06/01/24 05:39 200 ML Diagnostic Test (Pha) 1 strip IQ4HR 05/31/24 12:00 06/01/24 07:33 1 STRIP Insulin Human Regular IQ4HR SC 05/31/24 12:00 Dextrose 50 ml UD PRN IV 05/31/24 10:00 Iron Sucrose 110 ml @ 110 mls/hr DAILY@1200 IV 05/31/24 12:00 06/04/24 12:59 05/31/24 12:27 110 MLS/HR Furosemide 80 mg Q6HR IV 05/31/24 13:15 06/01/24 05:32 80 MG Metoprolol Tartrate 5 mg Q5M IV 06/01/24 05:00 06/01/24 04:58 5 MG objective Critically ill-appearing elderly white male; Intubatedand sedated CVS: Regular rate and rhythm Abdomen nondistended non firm no guarding no fluid wave, colostomy has hard stool Suprapubic Peralta catheter No pitting edema of the lower extremity Has upper extremity bilateral arm swelling laboratory and microbiology Laboratory Tests 06/01/24 03:00 Test 06/01/24 03:00 Range/Units Serum Glucose 115 H 74-106 mg/dL Problems(with codes): (1) Transaminitis (2) Sepsis (3) Altered mental status (4) Pneumonia (5) Metabolic encephalopathy (6) Anemia (7) Pleural effusion (8) End stage renal disease Prognosis Plan Continue Nepro at 30 mL/hour and possibly could advance to 45 mL/hour Possibly transfused 1 unit PRBC Continue IV iron replacement Patient is likely going to need dialysis because of worsening renal failure and generalized anasarca and volume overload Patient for possible dialysis catheter placement Dietary Evaluation Review Comments: 1) If GI is assessible consider Jevity 1.2 @ 60 ml/hr x24 hrs goal rate as tolerated 2) If pt remains NPO >7 days consider TPN to meet at least 75% of estimated needs 3) Advance pt diet when medically feasible to a Cardiac/Renal Specific K2,2gmNA,low phos,60g Pro diet modified per [employer] SALES CONSULTANT recommendations 4) Continue current plan of care Expected Outcomes/Goals: 1) Pt to receive adequate nutrition support 2) Pt diet to advance Plan discussed with: Other (ICU Nurse and shira rogel) CC Plasma Assessment Blood Product Administration S: [id number] [place] TOPETE MD Jun 01, 2024 08:29
--- NOTE | 2024-06-01 08:40 | DVHPN2 ---
Subjective Patient chemically sedated. Reviewed: Care Plan, H&P, Labs, Medications Changes from previous H/P or p: No Changes General: Per HPI Objective Vitals Vital Signs Date Time Temp Pulse Resp B/P (MAP) Pulse Ox O2 Delivery O2 Flow Rate FiO2 06/01/24 08:05 86 22 125/64 (84) 96 30 06/01/24 06:45 98.1 208.6 06/01/24 06:17 Mechanical Ventilator+ Intake/Output Intake and Output 06/01/24 07:00 Intake Total 4330.0 ml Output Total 100 ml Balance 4230.0 ml Intake Oral 800 ml IV Total 3050.0 ml Tube Feeding 480 ml Output Urine Total 100 ml # Bowel Movements 1 General Appearance: Other (Chemically sedated) HEENT: Atraumatic, PERRLA Lungs: Other (Mechanical ventilation) Cardiovascular: Normal S1, Normal S2 Abdomen: Normal bowel sounds, Soft, No tenderness Genitourinary: No Apparent Abnormalities (Peralta catheter) Musculoskeletal: Other (No motor movement) Extremities: No clubbing, No cyanosis Skin: Wounds (See nurse notes and pictures) Psych/Mental Status: Other (Unable to assess) Medications Current Medications Medications Dose Ordered Sig/[place] Route Start Time Stop Time Status Last Admin Dose Admin Midazolam HCl 50 ml @ 1 mls/hr Q24H IV 05/28/24 21:15 06/01/24 05:39 1 MLS/HR Albuterol 2.5 mg Q6HPRN PRN NEB 05/29/24 00:00 Fentanyl Citrate 250 ml @ 2.5 mls/hr Q24H IV 05/29/24 01:15 05/31/24 04:44 12.5 MLS/HR Pantoprazole Sodium 40 mg BID IV 05/29/24 22:00 06/01/24 07:33 40 MG Norepinephrine Bitartrate 250 ml @ 3.75 mls/hr Q24H IV 05/29/24 11:30 Enteral Nutritional Formula 1,000 ml 30ML/HR GT 05/30/24 11:00 Linezolid 300 ml @ 150 mls/hr Q12HR IV 05/31/24 10:00 06/01/24 07:33 150 MLS/HR Meropenem 50 ml @ 17 mls/hr DAILY IV 05/31/24 10:00 05/31/24 13:51 17 MLS/HR Purified Water 200 ml Q6HR GT 05/31/24 12:00 06/01/24 05:39 200 ML Diagnostic Test (Pha) 1 strip IQ4HR 05/31/24 12:00 06/01/24 07:33 1 STRIP Insulin Human Regular IQ4HR SC 05/31/24 12:00 Dextrose 50 ml UD PRN IV 05/31/24 10:00 Iron Sucrose 110 ml @ 110 mls/hr DAILY@1200 IV 05/31/24 12:00 06/04/24 12:59 05/31/24 12:27 110 MLS/HR Furosemide 80 mg Q6HR IV 05/31/24 13:15 06/01/24 05:32 80 MG Metoprolol Tartrate 25 mg BID PO 06/01/24 10:00 UNV Laboratory Results Laboratory Tests 06/01/24 03:00 Chemistry Test 06/01/24 03:00 Albumin 2.3 g/dL (3.2-4.8) L Calcium Level 8.5 mg/dL (8.7-10.4) L Magnesium Level 2.0 mg/dL (1.6-2.6) Phosphorus Level 8.4 mg/dL (2.4-5.1) H Total Protein 5.3 g/dL (5.7-8.2) L LFT Test 06/01/24 03:00 Alanine Aminotransferase (ALT) < 9 U/L (7-40) Alkaline Phosphatase 66 U/L (46-116) Aspartate Amino Transferase (AST) 17 U/L (13-40) Total Bilirubin < 0.2 mg/dL (0.2-1.0) L Urinalysis Test 05/28/24 22:36 05/30/24 04:30 Urine Color Dark-brown (Yellow) Urine Clarity Ex.turbid (Clear) Urine pH 6.0 (5.0-9.0) Urine Specific [place] 1.017 (1.001-1.035) Urine Protein 2+ (Negative) H Urine Ketones Trace (Negative) Urine Blood 1+ /uL (Negative) H Urine Nitrite Negative (Negative) Urine Bilirubin Negative (Negative) Urine Urobilinogen Normal mg/dL (Negative) Urine Leukocyte Esterase 3+ /uL (Negative) Urine RBC 56 /hpf (0 - 3) Urine WBC 3664 /hpf (0 - 3) Urine WBC Clumps Present /hpf (None Seen) Urine Squamous Epithelial Cells Many /hpf (<5) Urine Bacteria Mod /hpf (None Seen) H Urine Glucose Normal mg/dL (Normal) Urine Creatinine 33.57 mg/dL (30.0-125.0) Urine Sodium 85 mmol/L (40-220) Blood Gas Results Test 06/01/24 07:47 Arterial Blood pH 7.317 (7.350-7.450) FiO2 % 30.0 Microbiology Microbiology Date/Time Source Procedure Growth Status 05/30/24 11:45 Bronchial Washings Gram Stain - Final Resulted 05/30/24 11:45 Bronchial Washings Respiratory Culture - Preliminary Resulted 05/30/24 11:45 Pleural Fluid Gram Stain - Final Resulted 05/30/24 11:45 Pleural Fluid Body Fluid Culture - Preliminary Resulted 05/29/24 12:15 Nose MRSA Screen - Final Complete 05/28/24 22:36 Urine - Catheterized Urine Culture - Preliminary Resulted 05/28/24 21:43 Blood Blood Culture - Preliminary Staphylococcus capitis Resulted Labs and/or images reviewed: Labs reviewed by me, Image(s) reviewed by me Assessment/Plan Assessment/Plan Impression: Acute metabolic encephalopathy due to uremia Sepsis due to UTI POA Y Severe anemia, HB 6 ? GI bleed FROYLAN on CKD stage 4, vasomotor mediated vs intrinsic NSTEMI type 2 due to demand ischemia Acute on chronic HFpEF Bilateral pleural effusion Anasarca Atrophic right kidney Cholelithiasis Hyperkalemia Metabolic acidosis Hypernatremia Hyperchloremia ? H/o hepatitis Decubitus ulcer POA Extensive metabolic surgical hardware in spine Plan: Events: Patient went into atrial fibrillation with rapid ventricular rate yesterday evening which was resolved with IV metoprolol. Patient is now and uric. Decrease CVP readings. Hypoglycemia resolved -continue sodium bicarbonate drip. -nephrology consultation -CVP reading: -1 -Antibiotic coverage to Zyvox and ertapenem given previous growth, current Staph aureus growing in sputum, and renal function -continue current ventilator settings -nephrology consultation: Recommendations appreciated -wound care consult -continue current sedation -continue tube feeding my free while -change to q.4 Accu-Cheks -repeat labs, chest x-ray, ABG in a.m. -poor prognosis Critical care time spent with patient discussing and formulating plan of care: 40 minutes. This does not include time spent performing procedures. This medical document was created using an electronic medical record system with [employer] dictation system. Although this document has been carefully reviewed, there may still be some phonetic and typographical errors. These areas are purely typographical due to imperfections of the software programs, and do not reflect any compromise in the patient's medical care. Plan discussed with: Patient, Other My Orders Orders - BREN NEVSE NP Procedure Category Date Status Time Cvp Monitoring ED NURSING 05/31/24 Transmitted Glucose Blood PHA 05/31/24 In Process (Accu-Chek Comfort 12:00 Insulin R (Human) PHA 05/31/24 In Process (Insulin R) 12:00 Dextrose 50% Syringe PHA 05/31/24 In Process 10:00 Iron Sucrose Complex PHA 05/31/24 In Process (Venofer) 12:00 Complete Blood Count LAB 06/02/24 Verified 05:00 Complete Blood Count LAB 06/03/24 Verified 05:00 Comprehensive LAB 06/02/24 Verified Metabolic Panel 05:00 Comprehensive LAB 06/03/24 Verified Metabolic Panel 05:00 Chest Xray 1 View XY 06/01/24 Resulted 05:00 Chest Xray 1 View XY 06/02/24 Logged 05:00 Abg W/ Co-Ox RT 06/01/24 Logged 07:14 Metoprolol Tartrate PHA 06/01/24 Logged Tablet (Lopressor Ta 10:00 Date of Service: Jun 01, 2024 Billing Provider: BREN NEVES NP Common Visit Codes: [id number] CARE 30-74 MIN BREN NEVES NP Jun 01, 2024 08:40
[2024-06-01] MEDS: METOPROLOL TARTRATE 25 MG TAB PO SCH (10:36)
[2024-06-01] MEDS: HEPARIN 1,000 UNITS/ml 1ML VIAL IV ONE ×2 (17:56→18:21)
--- NOTE | 2024-06-01 18:15 | DVHPN2 ---
Progress Note - Dictate Date Seen: Jun 01, 2024 Medical Necessity Reason Pt with a Central, PICC or Fol: Yes The following are medically ne: Central Line, Peralta Catheter Subjective Patient noted to have atrial fibrillation rapid ventricular response overnight This a.m. patient has minimal to no urinary output despite high-dose diuretics Labs reviewed Case discussed with patient's son John we discussed at length goals of care. John explains that his father expressively stated that lupus exhaust all measures to prolong his life which includes dialysis. I discussed the risks and benefits of dialysis and the high-risk nature of dialysis in his case due to multiple comorbidities. He consented to the catheter and dialysis treatment. Dialysis catheter placed at bedside vital signs Vital Sign Date Time Temp Pulse Resp B/P (MAP) Pulse Ox O2 Delivery O2 Flow Rate FiO2 06/01/24 15:51 84 22 119/63 (81) 96 30 06/01/24 14:00 Mechanical Ventilator+ 06/01/24 13:15 97.3 207.1 Total Intake and Output 05/31/24 05/31/24 06/01/24 14:59 22:59 06:59 Intake Total 960.0 ml 1613.0 ml 1769.5 ml Output Total 25 ml 75 ml Balance 960.0 ml 1588.0 ml 1694.5 ml medications Current Medications Medications Dose Ordered Sig/[place] Route Start Time Stop Time Status Last Admin Dose Admin Midazolam HCl 50 ml @ 1 mls/hr Q24H IV 05/28/24 21:15 06/01/24 05:39 1 MLS/HR Albuterol 2.5 mg Q6HPRN PRN NEB 05/29/24 00:00 Fentanyl Citrate 250 ml @ 2.5 mls/hr Q24H IV 05/29/24 01:15 06/01/24 13:51 15 MLS/HR Pantoprazole Sodium 40 mg BID IV 05/29/24 22:00 06/01/24 07:33 40 MG Norepinephrine Bitartrate 250 ml @ 3.75 mls/hr Q24H IV 05/29/24 11:30 Enteral Nutritional Formula 1,000 ml 30ML/HR GT 05/30/24 11:00 Linezolid 300 ml @ 150 mls/hr Q12HR IV 05/31/24 10:00 06/01/24 07:33 150 MLS/HR Meropenem 50 ml @ 17 mls/hr DAILY IV 05/31/24 10:00 06/01/24 09:29 17 MLS/HR Purified Water 200 ml Q6HR GT 05/31/24 12:00 06/01/24 15:03 200 ML Diagnostic Test (Pha) 1 strip IQ4HR 05/31/24 12:00 06/01/24 15:02 1 STRIP Insulin Human Regular IQ4HR SC 05/31/24 12:00 Dextrose 50 ml UD PRN IV 05/31/24 10:00 Iron Sucrose 110 ml @ 110 mls/hr DAILY@1200 IV 05/31/24 12:00 06/04/24 12:59 06/01/24 11:34 110 MLS/HR Furosemide 80 mg Q6HR IV 05/31/24 13:15 06/01/24 15:02 80 MG Metoprolol Tartrate 25 mg BID PO 06/01/24 10:00 06/01/24 10:36 25 MG objective Critically ill-appearing elderly white male Intubated On sedation No pressors No JVD Regular rate and rhythm Abdomen nondistended non firm no guarding no fluid wave, colostomy has hard stool Suprapubic Peralta catheter Urine color is clear No pitting edema of the lower extremity Has upper extremity bilateral arm swelling laboratory and microbiology Laboratory Tests 06/01/24 03:00 Test 06/01/24 03:00 Range/Units Serum Glucose 115 H 74-106 mg/dL Assessment/Plan Acute kidney injury on chronic kidney disease stage 4 -> ATN Hemodynamically mediated Acute respiratory failure Anemia suspected due to low blood loss s/p PRBC Hypernatremia Hypokalemia Metabolic acidosis Chronic urinary retention sepsis due to bacteremia We will schedule hemodialysis treatment as tolerated volume goals and electrolytes based on laboratory testing Avoid hypotension Continue pressors Continue diuretics IV ABX as per ICU with renal dosing Strict Is&Os Avoid contrast studies Critically ill Poor candidate for long-term dialysis, this was explained to patient's son however this time he wishes to pursue aggressive treatment Critical care time spent 70 minutes Dietary Evaluation Review Comments: 1) If GI is assessible consider Jevity 1.2 @ 60 ml/hr x24 hrs goal rate as tolerated 2) If pt remains NPO >7 days consider TPN to meet at least 75% of estimated needs 3) Advance pt diet when medically feasible to a Cardiac/Renal Specific K2,2gmNA,low phos,60g Pro diet modified per AIR LIFT OPERATOR recommendations 4) Continue current plan of care Expected Outcomes/Goals: 1) Pt to receive adequate nutrition support 2) Pt diet to advance Plan discussed with: Werner CC Plasma Assessment Blood Product Administration S: [id number] ANNA ROMERO MD Jun 01, 2024 18:15
--- NOTE | 2024-06-01 18:19 | DVHNC2 ---
Central Line Recorder of insertion practice: Safety Sealer Occupation of electrical mechanical technician: Attending Physician Indication: Other (Dialysis) Room prepared for procedure: Yes Safety Sealer performed hand hygien: Yes Maximal sterile barrier precau: Mask/Eye shield, Sterile gown, Cap, Sterlie gloves, Large sterlie drape Skin Preparation: Chlorhexidine gluconate Skin preparation completely dr: Yes Insertion site: Left, Internal jugular Central line catheter type: Dialysis non-tunneled Number of lumens: 2 Post Assessment: Chest X-Ray Informed consent obtained: Yes Risks/benefits/alt described: Yes Date of Service: Jun 01, 2024 Billing Provider: ANNA ROMERO MD Common Visit Codes: PROCEDURE ONLY Procedure Codes: [id number] NON-TUNNEL CV CATH ANNA ROMERO MD Jun 01, 2024 18:19
--- NOTE | 2024-06-01 19:26 | DVH ---
CHEST RADIOGRAPH Indication:DIALYSIS CATHETER PLACEMENT Technique: Single frontal view of the chest was obtained Comparison: XY CHEST XRAY 1 VIEW on DOS: 06/01/24, XY CHEST XRAY 1 VIEW on DOS: 05/31/24, XY CHEST PO RTABLE on DOS: 05/30/24 FINDINGS: Lines and Tubes: Left IJ approach hemodialysis catheter terminating over the proximal SVC. Right IJ approach central venous catheter terminating over the proximal to mid SVC. The distal end of the ente sarah tube is not visualized. Lungs: The left lower lung zone and right costophrenic angle outside the field of view. Diffuse inter stitial prominence with opacities of the right lower lung zone. No pneumothorax. Cardiomediastinal contours: Mild cardiomegaly. Bones: No acute osseous abnormality. IMPRESSION: Left IJ approach hemodialysis catheter terminating over the proximal SVC. Right IJ approach central v enous catheter terminating over the proximal to mid SVC. The distal end of the enteric tube is not visualized. Mild cardiomegaly with findings suggestive of congestive heart failure with possible right lower lung zone pneumonia. The left lower lung zone is outside of field of view.
--- NOTE | 2024-06-01 21:26 | DVHPN2 ---
Progress Note - Dictate Date Seen: Jun 01, 2024 Medical Necessity Reason Pt with a Central, PICC or Fol: Yes The following are medically ne: Central Line, Rubio Catheter Reason for rubio catheter: Strict I&O Subjective Patient seen and examined at bedside. Sedated, intubated on mechanical ventilator. Overnight events reviewed. vital signs Vital Sign Date Time Temp Pulse Resp B/P (MAP) Pulse Ox O2 Delivery O2 Flow Rate FiO2 06/01/24 21:10 89 162/75 06/01/24 20:45 22 95 06/01/24 20:20 30 06/01/24 20:00 Mechanical Ventilator+ 06/01/24 20:00 97.8 97.8 Total Intake and Output 05/31/24 05/31/24 06/01/24 15:00 23:00 07:00 Intake Total 1060.0 ml 1613.0 ml 1673.0 ml Output Total 25 ml 75 ml Balance 1060.0 ml 1588.0 ml 1598.0 ml medications Current Medications Medications Dose Ordered Sig/[place] Route Start Time Stop Time Status Last Admin Dose Admin Midazolam HCl 50 ml @ 1 mls/hr Q24H IV 05/28/24 21:15 06/01/24 18:25 2 MLS/HR Albuterol 2.5 mg Q6HPRN PRN NEB 05/29/24 00:00 Fentanyl Citrate 250 ml @ 2.5 mls/hr Q24H IV 05/29/24 01:15 06/01/24 13:51 15 MLS/HR Pantoprazole Sodium 40 mg BID IV 05/29/24 22:00 06/01/24 21:09 40 MG Norepinephrine Bitartrate 250 ml @ 3.75 mls/hr Q24H IV 05/29/24 11:30 Enteral Nutritional Formula 1,000 ml 30ML/HR GT 05/30/24 11:00 Linezolid 300 ml @ 150 mls/hr Q12HR IV 05/31/24 10:00 06/01/24 21:10 150 MLS/HR Meropenem 50 ml @ 17 mls/hr DAILY IV 05/31/24 10:00 06/01/24 09:29 17 MLS/HR Purified Water 200 ml Q6HR GT 05/31/24 12:00 06/01/24 15:03 200 ML Diagnostic Test (Pha) 1 strip IQ4HR 05/31/24 12:00 06/01/24 20:05 1 STRIP Insulin Human Regular IQ4HR SC 05/31/24 12:00 Dextrose 50 ml UD PRN IV 05/31/24 10:00 Iron Sucrose 110 ml @ 110 mls/hr DAILY@1200 IV 05/31/24 12:00 06/04/24 12:59 06/01/24 11:34 110 MLS/HR Furosemide 80 mg Q6HR IV 05/31/24 13:15 06/01/24 15:02 80 MG Metoprolol Tartrate 25 mg BID PO 06/01/24 10:00 06/01/24 21:10 25 MG objective Gen.: Patient lying in bed in medical ICU. Sedated, intubated on mechanical ventilator. Head: Normocephalic, atraumatic. Eyes: PERRLA. Ears: Normal external anatomy. Throat: Endotracheal tube and orogastric tube in place. Neck: Supple, trachea midline. Chest: Transmitted breath sounds bilaterally. Decreased air entry bilaterally. No wheezing. Bibasilar crackles. Cardiovascular: Positive S1, positive S2. Regular rate and rhythm. Abdomen: Positive bowel sounds in all 4 quadrants. Soft, nontender, nondistended. : Rubio in place. Normal external genitalia. Rectal: Deferred. Skin: Warm, dry. Intact. Extremities: 2+ radial pulses bilaterally. No lower extremity edema. Neuro: Sedated. laboratory and microbiology Laboratory Tests 06/01/24 03:00 Test 06/01/24 03:00 Range/Units Serum Glucose 115 H 74-106 mg/dL Assessment/Plan Impression: Acute hypoxic respiratory failure On mechanical ventilator Multifocal pneumonia Atelectasis Congestive heart failure Events: Remains on vent support On AC mode; RR 22, VT 500, PEEP 5, FiO2 of 30%. Sedated on Fentanyl 150 mcg, Versed 2 mg Plan for HD in the AM Homer cath is being placed. Continue abx - Zyvox. CXR reviewed; left lower lung zone and right costophrenic angle are outside the field of view. Diffuse interstitial prominence with opacities of the right lower lung zone. Mild cardiomegaly. ABG reviewed, shows acidemia Rest of plan as noted below Plan: s/p intubation on mechanical ventilator. On AC mode; RR 22, VT 500, PEEP 5, FiO2 of 30%. ABG reviewed, notable for acidemia CXR reviewed, demonstrated e/o multifocal pneumonia, devices in place. Titrate FIO2 to keep O2 saturation above 90%. VAP bundle. Daily ABG and CXR while intubated Sedated for ventilator synchrony - on Fentanyl, Versed Antibiotics F/u cultures. IV fluids at 100 ml/hr Diurese to euvolemia Monitor renal function Monitor electrolytes. Supplement as necessary. Monitor ins and outs. Tube feeds for nutritional support. GI prophylaxis. DVT prophylaxis. Prognosis: Poor given patient's multiple co-morbidities. Condition: Critical Rest of plan per hospitalist and other consultants. A total of 35 minutes of critical care time was spent reviewing the patient record, examining the patient, making a diagnostic and therapeutic plan, discussing this plan with the medical personnel, following up on diagnostic studies and following the patient for clinical stability excluding any and all procedures. At least 50% of this time was spent in direct, [id number] contact. Thank you Anthony Ugalde, JES, for allowing me to participate in this patient's care. Further recommendations will depend on the patient's clinical course. Please do not hesitate to contact me if you have any questions or concerns. This medical document was created using an electronic medical record system with [employer] computerized dictation system. Although these documentations are being carefully reviewed, there may still be some phonetic and typographical changes. The errors are purely typographical, due to imperfection on the software program, and do not reflect any compromise in the patient's medical care. Dietary Evaluation Review Comments: 1) If GI is assessible consider Jevity 1.2 @ 60 ml/hr x24 hrs goal rate as tolerated 2) If pt remains NPO >7 days consider TPN to meet at least 75% of estimated needs 3) Advance pt diet when medically feasible to a Cardiac/Renal Specific K2,2gmNA,low phos,60g Pro diet modified per [employer] recommendations 4) Continue current plan of care Expected Outcomes/Goals: 1) Pt to receive adequate nutrition support 2) Pt diet to advance Plan discussed with: Other (DORCAS Palmer) Critical Care Time(min): 35 CC Plasma Assessment Blood Product Administration S: [id number] ELIANE ALTAMIRANO MD Jun 01, 2024 21:26
[2024-06-02] VITALS (104 sets, daily range): BP systolic 106–204; BP diastolic 61–105; PULSE 60–94; RESP 7–37; TEMP 97.5–98.3; O2SAT 89–100
--- NOTE | 2024-06-02 03:59 | DVH ---
CHEST RADIOGRAPH Indication:pna Technique: Single frontal view of the chest was obtained Comparison: XY CHEST PORTABLE on DOS: 06/01/24, XY CHEST XRAY 1 VIEW on DOS: 06/01/24, XY CHEST XRAY 1 VIEW on DOS: 05/31/24, XY CHEST PORTABLE on DOS: 05/30/24, XY CHEST XRAY 1 VIEW on DOS: 05/30/24, X Y CHEST PORTABLE on DOS: 06/01/24 FINDINGS: Lines and Tubes: Left IJ approach hemodialysis catheter terminating over the proximal SVC. Right IJ approach central venous catheter terminating over the proximal to mid SVC. The distal end of the ente sarah tube is not visualized. Lungs: The left lower lung zone and right costophrenic angle outside the field of view. Diffuse inter stitial prominence with opacities of the right lower lung zone. No pneumothorax. Cardiomediastinal contours: Mild cardiomegaly. Bones: No acute osseous abnormality. IMPRESSION: Left IJ approach hemodialysis catheter terminating over the proximal SVC. Right IJ approach central v enous catheter terminating over the proximal to mid SVC. The distal end of the enteric tube is not visualized. Mild cardiomegaly with findings suggestive of congestive heart failure with possible right lower lung zone pneumonia. The left lower lung zone is outside of field of view.
[2024-06-02 04:21] LABS: Basophils # (auto) 0 10 ^3/uL (0-0.2); Basophils % (auto) 0.4 % (0.0-2.0); Eosinophils # (auto) 0.9 10 ^3/uL (0-0.8); Eosinophils % (auto) 12.9 % (0.0-7.0); Hemoglobin 7.7 g/dL (13.5-17.5); Lymphocytes # (auto) 1.1 10 ^3/uL (0.4-5.4); Lymphocytes % (auto) 15.8 % (10.0-50.0); Mean Corpuscular Hemoglobin 31.5 pg (28.0-32.0); Mean Corpuscular Hgb Conc. 33.4 g/dL (32.0-36.0); Mean Corpuscular Volume 94.4 fL (80.0-100.0); Monocytes # (auto) 0.4 10 ^3/uL (0-1.3); Monocytes % (auto) 6.2 % (0.0-12.0); Neutrophils # (auto) 4.5 10 ^3/uL (1.6-8.6); Neutrophils % (auto) 64.7 % (37.0-80.0); Nucleated Red Blood Cells % 0.1 %; Platelet Count (auto) 107 10^3/uL (140-450); Red Blood Cells 2.44 10^6/uL (4.5-5.90); Red Cell Distribution Width 16.5 % (11.8-14.3); White Blood Cell 6.9 10^3/uL (4.4-10.8)
[2024-06-02 04:37] LABS: % Iron Saturation 92.7 % (20-55)
[2024-06-02 04:39] LABS: Albumin 2.3 g/dL (3.2-4.8); Alkaline Phosphatase 94 U/L (46-116); Anion Gap 15 (5-15); Aspartate Aminotransferase 18 U/L (13-40); BUN/Creatinine Ratio 13.4 (10.0-20.0); Bilirubin, Total < 0.2 mg/dL (0.2-1.0); Calcium 8.8 mg/dL (8.7-10.4); Carbon Dioxide 19 mmol/L (20-31); Chloride 113 mmol/L (98-107); Glucose 89 mg/dL (74-106); Potassium 3.7 mmol/L (3.5-5.1); Sodium 147 mmol/L (136-145); Total Protein 5.7 g/dL (5.7-8.2)
[2024-06-02 04:53] LABS: Alanine Aminotransferase < 9 U/L (7-40); Blood Urea Nitrogen 107 mg/dL (9-23)
[2024-06-02] MEDS: SODIUM CHL 0.9% 1000 ML BAG XX ONE (07:00)
[2024-06-02 08:29] LABS: Hepatitis B Surface Antigen Negative (Negative)
[2024-06-02 08:30] LABS: Hepatitis B Surface Antigen Negative (Negative)
[2024-06-02 08:36] LABS: Base Excess -9.3 mmol/L (-2.0-3.0)
[2024-06-02 08:49] LABS: Hepatitis A Ab IgM Negative
[2024-06-02 08:51] LABS: Hepatitis A Ab IgM Negative
[2024-06-02 08:51] LABS: Hepatitis B Core IgM Negative
[2024-06-02 08:52] LABS: Hepatitis B Core IgM Negative
[2024-06-02 08:58] LABS: Hepatitis C Antibody Reactive (Negative)
[2024-06-02 09:16] LABS: Hepatitis C Antibody Reactive (Negative)
--- NOTE | 2024-06-02 10:42 | DVHPN2 ---
Subjective Patient chemically sedated. Reviewed: Care Plan, H&P, Labs, Medications Changes from previous H/P or p: No Changes General: Per HPI Objective Vitals Vital Signs Date Time Temp Pulse Resp B/P (MAP) Pulse Ox O2 Delivery O2 Flow Rate FiO2 06/02/24 10:00 84 06/02/24 10:00 22 96 Mechanical Ventilator+ 30 30 06/02/24 07:52 185/92 (123) 06/02/24 06:00 98.0 98.0 Intake/Output Intake and Output 06/02/24 07:00 Intake Total 2321 ml Output Total 160 ml Balance 2161 ml Intake Oral 800 ml IV Total 1161 ml Tube Feeding 360 ml Output Urine Total 160 ml # Bowel Movements 2 Exam Patient receiving hemodialysis. General Appearance: Other (Chemically sedated) HEENT: Atraumatic, PERRLA Lungs: Other (Mechanical ventilation) Cardiovascular: Normal S1, Normal S2 Abdomen: Normal bowel sounds, Soft, No tenderness Genitourinary: No Apparent Abnormalities (Peralta catheter) Musculoskeletal: Other (No motor movement) Extremities: No clubbing, No cyanosis Skin: Wounds (See nurse notes and pictures) Psych/Mental Status: Other (Unable to assess) Medications Current Medications Medications Dose Ordered Sig/[place] Route Start Time Stop Time Status Last Admin Dose Admin Midazolam HCl 50 ml @ 1 mls/hr Q24H IV 05/28/24 21:15 06/01/24 18:25 2 MLS/HR Albuterol 2.5 mg Q6HPRN PRN NEB 05/29/24 00:00 Fentanyl Citrate 250 ml @ 2.5 mls/hr Q24H IV 05/29/24 01:15 06/02/24 04:44 15 MLS/HR Pantoprazole Sodium 40 mg BID IV 05/29/24 22:00 06/01/24 21:09 40 MG Norepinephrine Bitartrate 250 ml @ 3.75 mls/hr Q24H IV 05/29/24 11:30 Enteral Nutritional Formula 1,000 ml 30ML/HR GT 05/30/24 11:00 Linezolid 300 ml @ 150 mls/hr Q12HR IV 05/31/24 10:00 06/01/24 21:10 150 MLS/HR Meropenem 50 ml @ 17 mls/hr DAILY IV 05/31/24 10:00 06/01/24 09:29 17 MLS/HR Purified Water 200 ml Q6HR GT 05/31/24 12:00 06/02/24 05:27 200 ML Diagnostic Test (Pha) 1 strip IQ4HR 05/31/24 12:00 06/02/24 07:30 1 STRIP Insulin Human Regular IQ4HR SC 05/31/24 12:00 Dextrose 50 ml UD PRN IV 05/31/24 10:00 Iron Sucrose 110 ml @ 110 mls/hr DAILY@1200 IV 05/31/24 12:00 06/04/24 12:59 06/01/24 11:34 110 MLS/HR Furosemide 80 mg Q6HR IV 05/31/24 13:15 06/02/24 05:27 80 MG Metoprolol Tartrate 25 mg BID PO 06/01/24 10:00 06/01/24 21:10 25 MG Laboratory Results Laboratory Tests 06/02/24 03:17 Chemistry Test 06/02/24 03:17 Albumin 2.3 g/dL (3.2-4.8) L Calcium Level 8.8 mg/dL (8.7-10.4) Total Protein 5.7 g/dL (5.7-8.2) LFT Test 06/02/24 03:17 Alanine Aminotransferase (ALT) < 9 U/L (7-40) Alkaline Phosphatase 94 U/L (46-116) Aspartate Amino Transferase (AST) 18 U/L (13-40) Total Bilirubin < 0.2 mg/dL (0.2-1.0) L Urinalysis Test 05/28/24 22:36 05/30/24 04:30 Urine Color Dark-brown (Yellow) Urine Clarity Ex.turbid (Clear) Urine pH 6.0 (5.0-9.0) Urine Specific [place] 1.017 (1.001-1.035) Urine Protein 2+ (Negative) H Urine Ketones Trace (Negative) Urine Blood 1+ /uL (Negative) H Urine Nitrite Negative (Negative) Urine Bilirubin Negative (Negative) Urine Urobilinogen Normal mg/dL (Negative) Urine Leukocyte Esterase 3+ /uL (Negative) Urine RBC 56 /hpf (0 - 3) Urine WBC 3664 /hpf (0 - 3) Urine WBC Clumps Present /hpf (None Seen) Urine Squamous Epithelial Cells Many /hpf (<5) Urine Bacteria Mod /hpf (None Seen) H Urine Glucose Normal mg/dL (Normal) Urine Creatinine 33.57 mg/dL (30.0-125.0) Urine Sodium 85 mmol/L (40-220) Blood Gas Results Test 06/02/24 08:21 Arterial Blood pH 7.294 (7.350-7.450) FiO2 % 35.0 Microbiology Microbiology Date/Time Source Procedure Growth Status 05/30/24 11:45 Bronchial Washings Gram Stain - Final Resulted 05/30/24 11:45 Respiratory Culture - Preliminary Methicillin Resistant S.aureus Resulted 05/30/24 11:45 Pleural Fluid Gram Stain - Final Resulted 05/30/24 11:45 Pleural Fluid Body Fluid Culture - Preliminary Resulted 05/29/24 12:15 Nose MRSA Screen - Final Complete 05/28/24 22:36 Urine - Catheterized Urine Culture - Preliminary Resulted 05/28/24 21:43 Blood Blood Culture - Final Staphylococcus capitis Staphylococcus auricularis Complete Labs and/or images reviewed: Labs reviewed by me, Image(s) reviewed by me Assessment/Plan Assessment/Plan Impression: Acute metabolic encephalopathy due to uremia Sepsis due to UTI POA Y Severe anemia, HB 6 ? GI bleed FROYLAN on CKD stage 4, vasomotor mediated vs intrinsic NSTEMI type 2 due to demand ischemia Acute on chronic HFpEF Bilateral pleural effusion Anasarca Atrophic right kidney Cholelithiasis Hyperkalemia Metabolic acidosis Hypernatremia Hyperchloremia ? H/o hepatitis Decubitus ulcer POA Extensive metabolic surgical hardware in spine Plan: Events: No events overnight. Patient continues to be hypertensive. Patient anuric. Multiple MDR as noted including MRSA in the sputum, Enterobacter cloacae -nephrology consultation: Patient was started on hemodialysis -CVP readin -continue current antibiotic coverage with meropenem and Zyvox -continue current ventilator settings -wound care consult -continue current sedation -continue free water and tube feeding -pains to q.6 Accu-Cheks -repeat labs, chest x-ray, ABG in a.m. -poor prognosis Critical care time spent with patient discussing and formulating plan of care: 40 minutes. This does not include time spent performing procedures. This medical document was created using an electronic medical record system with [employer] system. Although this document has been carefully reviewed, there may still be some phonetic and typographical errors. These areas are purely typographical due to imperfections of the software programs, and do not reflect any compromise in the patient's medical care. Plan discussed with: Patient, Other (RN) Date of Service: Jun 02, 2024 Billing Provider: BREN NEVES NP Common Visit Codes: 90731-[id number] CARE 30-74 MIN BREN NEVES NP Jun 02, 2024 10:42
[2024-06-02] MEDS: ACCU-CHEK COMFORT CURVE STRIP VI SCH (11:33)
[2024-06-02] MEDS: InsuLIN REG 1unit/0.01ml Soln (100units/ml) SC SCH (11:33)
[2024-06-02] MEDS: METOPROLOL TARTRATE 25 MG TAB PO SCH (11:34)
--- NOTE | 2024-06-02 15:48 | DVHPN2 ---
Progress Note Date Seen: Jun 02, 2024 Medical Necessity Reason Pt with a Central, PICC or Fol: Yes The following are medically ne: Central Line, Rubio Catheter Reason for rubio catheter: Strict I&O Subjective Patient reports: Other (events noted) Review of Systems: Deferred (son bedside) Objective vital signs Vital Sign Date Time Temp Pulse Resp B/P (MAP) Pulse Ox O2 Delivery O2 Flow Rate FiO2 06/02/24 14:45 67 22 153/79 (103) 96 06/02/24 14:00 30 06/02/24 14:00 Mechanical Ventilator+ 06/02/24 12:00 97.9 97.9 Total Intake and Output 06/01/24 06/01/24 06/02/24 15:00 23:00 07:00 Intake Total 588 ml 836 ml 897 ml Output Total 60 ml 100 ml Balance 588 ml 776 ml 797 ml medications Current Medications Medications Dose Ordered Sig/[place] Route Start Time Stop Time Status Last Admin Dose Admin Midazolam HCl 50 ml @ 1 mls/hr Q24H IV 05/28/24 21:15 06/01/24 18:25 2 MLS/HR Albuterol 2.5 mg Q6HPRN PRN NEB 05/29/24 00:00 Fentanyl Citrate 250 ml @ 2.5 mls/hr Q24H IV 05/29/24 01:15 06/02/24 04:44 15 MLS/HR Pantoprazole Sodium 40 mg BID IV 05/29/24 22:00 06/02/24 11:35 40 MG Norepinephrine Bitartrate 250 ml @ 3.75 mls/hr Q24H IV 05/29/24 11:30 Enteral Nutritional Formula 1,000 ml 30ML/HR GT 05/30/24 11:00 Linezolid 300 ml @ 150 mls/hr Q12HR IV 05/31/24 10:00 06/02/24 11:35 150 MLS/HR Meropenem 50 ml @ 17 mls/hr DAILY IV 05/31/24 10:00 06/02/24 11:57 17 MLS/HR Purified Water 200 ml Q6HR GT 05/31/24 12:00 06/02/24 11:33 200 ML Iron Sucrose 110 ml @ 110 mls/hr DAILY@1200 IV 05/31/24 12:00 06/04/24 12:59 06/02/24 14:02 110 MLS/HR Furosemide 80 mg Q6HR IV 05/31/24 13:15 06/02/24 11:33 80 MG Metoprolol Tartrate 50 mg BID PO 06/02/24 10:45 06/02/24 11:34 50 MG Diagnostic Test (Pha) 1 strip Q6HR 06/02/24 12:00 06/02/24 11:33 1 STRIP Insulin Human Regular Q6HR SC 06/02/24 12:00 Dextrose 50 ml UD PRN IV 06/02/24 10:45 Examination: GENERAL:Abnormal, LUNGS:Abnormal, MSK:Abnormal, SKIN:Abnormal, NEURO:Abnormal, :Abnormal laboratory and microbiology Laboratory Tests 06/02/24 03:17 Test 06/02/24 03:17 Range/Units Serum Glucose 89 74-106 mg/dL Microbiology Date/Time Source Procedure Growth Status 05/30/24 11:45 Bronchial Washings Gram Stain - Final Complete 05/30/24 11:45 Respiratory Culture - Final Enterobacter cloacae Methicillin Resistant S.aureus Complete 05/30/24 11:45 Pleural Fluid Gram Stain - Final Resulted 05/30/24 11:45 Pleural Fluid Body Fluid Culture - Preliminary Resulted 05/29/24 12:15 Nose MRSA Screen - Final Complete 05/28/24 22:36 Urine - Catheterized Urine Culture - Final Enterobacter cloacae Escherichia coli Enterococcus faecalis - VRE Complete 05/28/24 21:43 Blood Blood Culture - Final Staphylococcus capitis Staphylococcus auricularis Complete Problem List/Assessment/Plan Problem List/Assessment/Plan Acute kidney injury on chronic kidney disease stage 4 -> ATN Hemodynamically mediated Acute respiratory failure on vent Anemia suspected due to low blood loss s/p PRBC Hypernatremia Hypokalemia Metabolic acidosis Chronic urinary retention sepsis due to bacteremia recs seen on HD today/uf 2 L //poor cath flows very positional cath Repeat blood cultures once negative will consider tunneled cath Continue pressors Continue diuretics IV ABX as per ICU with renal dosing Strict Is&Os Avoid contrast studies Critically ill Poor candidate for long-term dialysis, this was explained to patient's son however this time he wishes to pursue aggressive treatment Critical care time spent 50 minutes Plan discussed with: Son, Other My Orders My Orders Orders - SUKI MERINO MD Procedure Category Date Status Time Hemodialysis Orders ORDERS 06/02/24 Transmitted 08:39 Blood Culture SUZANNA 06/02/24 Logged 15:36 Dietary Evaluation Review Comments: 1) If GI is assessible consider Jevity 1.2 @ 60 ml/hr x24 hrs goal rate as tolerated 2) If pt remains NPO >7 days consider TPN to meet at least 75% of estimated needs 3) Advance pt diet when medically feasible to a Cardiac/Renal Specific K2,2gmNA,low phos,60g Pro diet modified per [employer] recommendations 4) Continue current plan of care Expected Outcomes/Goals: 1) Pt to receive adequate nutrition support 2) Pt diet to advance CC Plasma Assessment Blood Product Administration S: [id number] SUKI MERINO MD Jun 02, 2024 15:48
--- NOTE | 2024-06-02 18:43 | DVHNC2 ---
DYLAN GOMEZ [facility] 06/02/24 1843: Procedure Note Procedure: Suprapubic catheter exchange Indication: Suprapubic catheter exchange for routine maintenance Informed consent discussed w/: Yes Emergent procedure Patient or: No Procedure Summary: Date of Procedure: 06/02/2024 at 4:35 PM Procedure Note: The patient was on supine on the bed, and the suprapubic catheter site was inspected for signs of infection, irritation, or discharge, which all were negative. Aseptic technique was maintained throughout the procedure. The area around the catheter site was cleaned with an antiseptic solution. The old catheter was deflated using a syringe to remove the balloon fluid and was gently removed. The catheter tract was checked for patency. A new [16 Fr] suprapubic catheter was lubricated and inserted through the existing tract without resistance. The balloon was inflated with [10 mL] of sterile water to secure the catheter. The catheter was connected to the drainage bag, and patency was confirmed by observing urine drainage. The site was cleaned, dried, and covered with a sterile dressing. Post-Procedure Instructions: Monitor for signs of infection or blockage. Ensure the catheter remains securely in place and drains adequately. Return for routine follow-up or sooner if any complications arise. Complications: None Procedure performed by: Ilsa, Resident Supervised By: Dr. Kinney and ELIANE Mary MD 06/02/24 0982: Procedure Note Procedure Summary: Suprapubic catheter exchange Indication: Suprapubic catheter exchange for routine maintenance Informed consent discussed w/: Yes Emergent procedure Patient or: No Procedure Summary: Date of Procedure: 06/02/2024 at 4:35 PM Procedure Note: The patient was on supine on the bed, and the suprapubic catheter site was inspected for signs of infection, irritation, or discharge, which all were negative. Aseptic technique was maintained throughout the procedure. The area around the catheter site was cleaned with an antiseptic solution. The old catheter was deflated using a syringe to remove the balloon fluid and was gently removed. The catheter tract was checked for patency. A new [16 Fr] suprapubic catheter was lubricated and inserted through the existing tract without resistance. The balloon was inflated with [10 mL] of sterile water to secure the catheter. The catheter was connected to the drainage bag, and patency was confirmed by observing urine drainage. The site was cleaned, dried, and covered with a sterile dressing. Post-Procedure Instructions: Monitor for signs of infection or blockage. Ensure the catheter remains securely in place and drains adequately. Return for routine follow-up or sooner if any complications arise. Complications: None Procedure performed by: Ilsa, Supervised By: Dr. Kinney and Dr. Robert CPT [id number] Simple change of cystostomy tube. DYLAN GOMEZ Jun 02, 2024 18:43 ELIANE KINNEY MD Jun 02, 2024 23:22
[2024-06-02] MEDS: ROCURONIUM 10MG/ML 10ML VIAL IV ONE ×3 (18:50→19:35)
[2024-06-02] MEDS: hydrALAZINE HCL 20 MG/ML VL IV ONE (20:00)
[2024-06-02] MEDS: EPOETIN ALFA-EPBX 10,000 UNIT/1ML VIAL SC ONE (21:33)
--- NOTE | 2024-06-02 22:16 | DVHPN2 ---
Progress Note - Dictate Date Seen: Jun 02, 2024 Medical Necessity Reason Pt with a Central, PICC or Fol: Yes The following are medically ne: Central Line, Rubio Catheter Reason for rubio catheter: Strict I&O Subjective Patient seen and examined at bedside. Sedated, intubated on mechanical ventilator. Overnight events reviewed. vital signs Vital Sign Date Time Temp Pulse Resp B/P (MAP) Pulse Ox O2 Delivery O2 Flow Rate FiO2 06/02/24 22:05 71 22 129/69 (89) 94 40 06/02/24 22:00 Mechanical Ventilator+ 06/02/24 20:00 98.3 98.3 Total Intake and Output 06/01/24 06/01/24 06/02/24 15:00 23:00 07:00 Intake Total 588 ml 836 ml 897 ml Output Total 60 ml 100 ml Balance 588 ml 776 ml 797 ml medications Current Medications Medications Dose Ordered Sig/[place] Route Start Time Stop Time Status Last Admin Dose Admin Midazolam HCl 50 ml @ 1 mls/hr Q24H IV 05/28/24 21:15 06/02/24 16:27 2 MLS/HR Albuterol 2.5 mg Q6HPRN PRN NEB 05/29/24 00:00 Fentanyl Citrate 250 ml @ 2.5 mls/hr Q24H IV 05/29/24 01:15 06/02/24 04:44 15 MLS/HR Pantoprazole Sodium 40 mg BID IV 05/29/24 22:00 06/02/24 21:37 40 MG Norepinephrine Bitartrate 250 ml @ 3.75 mls/hr Q24H IV 05/29/24 11:30 Enteral Nutritional Formula 1,000 ml 30ML/HR GT 05/30/24 11:00 Linezolid 300 ml @ 150 mls/hr Q12HR IV 05/31/24 10:00 06/02/24 21:38 150 MLS/HR Meropenem 50 ml @ 17 mls/hr DAILY IV 05/31/24 10:00 06/02/24 11:57 17 MLS/HR Purified Water 200 ml Q6HR GT 05/31/24 12:00 06/02/24 17:56 200 ML Iron Sucrose 110 ml @ 110 mls/hr DAILY@1200 IV 05/31/24 12:00 06/04/24 12:59 06/02/24 14:02 110 MLS/HR Furosemide 80 mg Q6HR IV 05/31/24 13:15 06/02/24 17:56 80 MG Metoprolol Tartrate 50 mg BID PO 06/02/24 10:45 06/02/24 21:39 50 MG Diagnostic Test (Pha) 1 strip Q6HR 06/02/24 12:00 06/02/24 17:56 1 STRIP Insulin Human Regular Q6HR SC 06/02/24 12:00 Dextrose 50 ml UD PRN IV 06/02/24 10:45 objective Gen.: Patient lying in bed in medical ICU. Sedated, intubated on mechanical ventilator. Head: Normocephalic, atraumatic. Eyes: PERRLA. Ears: Normal external anatomy. Throat: Endotracheal tube and orogastric tube in place. Neck: Supple, trachea midline. Chest: Transmitted breath sounds bilaterally. Decreased air entry bilaterally. No wheezing. Bibasilar crackles. Cardiovascular: Positive S1, positive S2. Regular rate and rhythm. Abdomen: Positive bowel sounds in all 4 quadrants. Soft, nontender, nondistended. : Rubio in place. Normal external genitalia. Rectal: Deferred. Skin: Warm, dry. Intact. Extremities: 2+ radial pulses bilaterally. No lower extremity edema. Neuro: Sedated. laboratory and microbiology Laboratory Tests 06/02/24 03:17 Test 06/02/24 03:17 Range/Units Serum Glucose 89 74-106 mg/dL Assessment/Plan Impression: Acute hypoxic respiratory failure On mechanical ventilator Multifocal pneumonia Atelectasis Congestive heart failure Events: Remains on vent support On AC mode; RR 22, VT 500, PEEP 5, FiO2 of 35%. Positive hepatitis C. Pt underwent hemodialysis this AM. Metoprolol dose increased from 25 to 50 mg q.12 hours. Hypernatremia, sodium of 147 On free water Monitor hemoglobin Transfuse if less than 7.0 g/dL. Sedated on Fentanyl and Versed. Continue abx - Zyvox, meropenem. HD per Nephrology Updated brother - obtained consent for therapeutic bronchoscopy to clear secretions. Rest of plan as noted below Plan: s/p intubation on mechanical ventilator. On AC mode; RR 22, VT 500, PEEP 5, FiO2 of 35%. ABG reviewed, notable for acidemia CXR reviewed, demonstrated e/o multifocal pneumonia, devices in place. Titrate FIO2 to keep O2 saturation above 90%. VAP bundle. Daily ABG and CXR while intubated Sedated for ventilator synchrony - on Fentanyl, Versed Antibiotics F/u cultures. IV fluids at 100 ml/hr Diurese to euvolemia Monitor renal function Monitor electrolytes. Supplement as necessary. Monitor ins and outs. Tube feeds for nutritional support. GI prophylaxis. DVT prophylaxis. Prognosis: Poor given patient's multiple co-morbidities. Condition: Critical Rest of plan per hospitalist and other consultants. A total of 35 minutes of critical care time was spent reviewing the patient record, examining the patient, making a diagnostic and therapeutic plan, discussing this plan with the medical personnel, following up on diagnostic studies and following the patient for clinical stability excluding any and all procedures. At least 50% of this time was spent in direct, [id number] contact. Thank you Anthony Ugalde NP, for allowing me to participate in this patient's care. Further recommendations will depend on the patient's clinical course. Please do not hesitate to contact me if you have any questions or concerns. This medical document was created using an electronic medical record system with [facility] dictation system. Although these documentations are being carefully reviewed, there may still be some phonetic and typographical changes. The errors are purely typographical, due to imperfection on the software program, and do not reflect any compromise in the patient's medical care. Dietary Evaluation Review Comments: 1) If GI is assessible consider Jevity 1.2 @ 60 ml/hr x24 hrs goal rate as tolerated 2) If pt remains NPO >7 days consider TPN to meet at least 75% of estimated needs 3) Advance pt diet when medically feasible to a Cardiac/Renal Specific K2,2gmNA,low phos,60g Pro diet modified per MEAT PROCESSOR recommendations 4) Continue current plan of care Expected Outcomes/Goals: 1) Pt to receive adequate nutrition support 2) Pt diet to advance Plan discussed with: Other (MAUREEN Sarkar) Critical Care Time(min): 35 CC Plasma Assessment Blood Product Administration S: [id number] ELIANE ALTAMIRANO MD Jun 02, 2024 22:16
--- NOTE | 2024-06-02 23:19 | DVHNC2 ---
Procedure - Bronchoscopy procedure note: Indications: Bliateral lower lobe atelectasis, Possible mucous plugging. Medicines: See REED MAN notes. Complications: None Procedure: Patient medications and allergies reviewed. The risks and benefits of the procedure and the sedation options and risk were discussed with the patient's healthcare proxy (Son). All questions were answered and informed consent was obtained. Patient identification and proposed procedure were verified prior to the procedure by the physician, and a nurse, and the respiratory therapist in ICU room. The heart rate, respiratory rate, oxygen saturations, blood pressure, adequacy of pulmonary ventilation, and response to care were monitored throughout the procedure. The physical status of the patient was reassessed after the procedure. After obtaining informed consent, the bronchoscope was introduced through the endotracheal tube and advanced into the trachea bronchial tree of both lungs. The procedure was accomplished without difficulty. The patient tolerated the procedure well. Findings: The trachea is in normal caliber. The chacho is sharp. The tracheobronchial tree of the right lung was examined to at least the first subsegmental level. The bronchial mucosa and anatomy in the right lung are normal. There are no endobronchial lesions. There was copious whitish secretions from right main stem bronchus onward throughout R4-R10. Right middle lobe (RML) Bronchoalveolar lavage (BAL) obtained. RML BAL sent for gram stain and culture, viral culture, fungal culture, and AFB smear and culture. The left upper lobe, lingula, and left lower lobe were examined to at least the first subsegmental level. Bronchial mucosa and anatomy in the left upper lobe and lingula are normal. There were no endobronchial lesions. There was copious whitish secretions from left main stem bronchus onward throughout L1-L10. Mucous plugging removed from L6-L10. There was no active bleeding at the completion of the procedure. Estimated blood loss: Less than 5 mL. Impression: Bilateral lower lobe atelectasis due to mucous plugging Mucous plugging from L6-L10 and R4-R10 RML BAL performed Recommendation: Follow-up RML BAL results. Pulmonary toileting. Procedure codes: 91376/15989, bronchoscopy, rigid and flexible, including fluoroscopic guidance, one performed; with bronchial endobronchial broncho- alveolar lavage and removal of mucous plugs, single or multiple sites ELIANE ALTAMIRANO MD Jun 02, 2024 23:19
[2024-06-03] VITALS (112 sets, daily range): BP systolic 68–182; BP diastolic 37–120; PULSE 63–90; RESP 10–29; TEMP 97.7–98.3; O2SAT 92–100
[2024-06-03 04:28] LABS: Basophils # (auto) 0 10 ^3/uL (0-0.2); Basophils % (auto) 0.5 % (0.0-2.0); Eosinophils # (auto) 0.4 10 ^3/uL (0-0.8); Eosinophils % (auto) 7.4 % (0.0-7.0); Hemoglobin 7.8 g/dL (13.5-17.5); Lymphocytes # (auto) 0.7 10 ^3/uL (0.4-5.4); Lymphocytes % (auto) 13.9 % (10.0-50.0); Mean Corpuscular Hemoglobin 31.8 pg (28.0-32.0); Mean Corpuscular Hgb Conc. 33.7 g/dL (32.0-36.0); Mean Corpuscular Volume 94.5 fL (80.0-100.0); Monocytes # (auto) 0.4 10 ^3/uL (0-1.3); Monocytes % (auto) 6.9 % (0.0-12.0); Neutrophils # (auto) 3.7 10 ^3/uL (1.6-8.6); Neutrophils % (auto) 71.3 % (37.0-80.0); Nucleated Red Blood Cells % 0.1 %; Platelet Count (auto) 83 10^3/uL (140-450); Red Blood Cells 2.44 10^6/uL (4.5-5.90); Red Cell Distribution Width 16.4 % (11.8-14.3); White Blood Cell 5.2 10^3/uL (4.4-10.8)
[2024-06-03 04:33] LABS: Alkaline Phosphatase 106 U/L (46-116); Anion Gap 13 (5-15); BUN/Creatinine Ratio 12.9 (10.0-20.0); Calcium 8.8 mg/dL (8.7-10.4); Carbon Dioxide 20 mmol/L (20-31); Chloride 111 mmol/L (98-107); Glucose 98 mg/dL (74-106); Potassium 3.6 mmol/L (3.5-5.1); Sodium 144 mmol/L (136-145)
[2024-06-03 04:34] LABS: Albumin 2.3 g/dL (3.2-4.8); Aspartate Aminotransferase 15 U/L (13-40); Bilirubin, Total < 0.2 mg/dL (0.2-1.0); Total Protein 5.7 g/dL (5.7-8.2)
[2024-06-03 04:55] LABS: Blood Urea Nitrogen 91 mg/dL (9-23)
[2024-06-03 04:56] LABS: Alanine Aminotransferase < 9 U/L (7-40)
[2024-06-03 06:27] LABS: Base Excess -9.1 mmol/L (-2.0-3.0)
--- NOTE | 2024-06-03 09:11 | DVHPN2 ---
Subjective Patient chemically sedated. Reviewed: Care Plan, H&P, Labs, Medications Changes from previous H/P or p: No Changes General: Per HPI Objective Vitals Vital Signs Date Time Temp Pulse Resp B/P (MAP) Pulse Ox O2 Delivery O2 Flow Rate FiO2 06/03/24 08:24 101/56 06/03/24 08:00 75 22 100 Mechanical Ventilator+ 100 100 06/03/24 04:30 97.9 97.9 Intake/Output Intake and Output 06/03/24 07:00 Intake Total 3253.5 ml Output Total 2270 ml Balance 983.5 ml Intake Oral 860 ml IV Total 1215.5 ml Tube Feeding 1178 ml Output Urine Total 80 ml Stool Total 190 ml Other 2000 ml Exam Patient receiving hemodialysis. General Appearance: Other (Chemically sedated) HEENT: Atraumatic, PERRLA Lungs: Other (Mechanical ventilation) Cardiovascular: Normal S1, Normal S2 Abdomen: Normal bowel sounds, Soft, No tenderness Genitourinary: No Apparent Abnormalities (Peralta catheter) Musculoskeletal: Other (No motor movement) Extremities: No clubbing, No cyanosis Skin: Wounds (See nurse notes and pictures) Psych/Mental Status: Other (Unable to assess) Medications Current Medications Medications Dose Ordered Sig/[place] Route Start Time Stop Time Status Last Admin Dose Admin Midazolam HCl 50 ml @ 1 mls/hr Q24H IV 05/28/24 21:15 06/02/24 16:27 2 MLS/HR Albuterol 2.5 mg Q6HPRN PRN NEB 05/29/24 00:00 Fentanyl Citrate 250 ml @ 2.5 mls/hr Q24H IV 05/29/24 01:15 06/03/24 08:24 20 MLS/HR Pantoprazole Sodium 40 mg BID IV 05/29/24 22:00 06/02/24 21:37 40 MG Norepinephrine Bitartrate 250 ml @ 3.75 mls/hr Q24H IV 05/29/24 11:30 Enteral Nutritional Formula 1,000 ml 30ML/HR GT 05/30/24 11:00 Linezolid 300 ml @ 150 mls/hr Q12HR IV 05/31/24 10:00 06/02/24 21:38 150 MLS/HR Meropenem 50 ml @ 17 mls/hr DAILY IV 05/31/24 10:00 06/02/24 11:57 17 MLS/HR Purified Water 200 ml Q6HR GT 05/31/24 12:00 06/03/24 05:37 200 ML Iron Sucrose 110 ml @ 110 mls/hr DAILY@1200 IV 05/31/24 12:00 06/04/24 12:59 06/02/24 14:02 110 MLS/HR Furosemide 80 mg Q6HR IV 05/31/24 13:15 06/03/24 05:37 80 MG Metoprolol Tartrate 50 mg BID PO 06/02/24 10:45 06/02/24 21:39 50 MG Diagnostic Test (Pha) 1 strip Q6HR 06/02/24 12:00 06/03/24 05:37 1 STRIP Insulin Human Regular Q6HR SC 06/02/24 12:00 Dextrose 50 ml UD PRN IV 06/02/24 10:45 Laboratory Results Laboratory Tests 06/03/24 03:47 Chemistry Test 06/03/24 03:47 Albumin 2.3 g/dL (3.2-4.8) L Calcium Level 8.8 mg/dL (8.7-10.4) Total Protein 5.7 g/dL (5.7-8.2) LFT Test 06/03/24 03:47 Alanine Aminotransferase (ALT) < 9 U/L (7-40) Alkaline Phosphatase 106 U/L (46-116) Aspartate Amino Transferase (AST) 15 U/L (13-40) Total Bilirubin < 0.2 mg/dL (0.2-1.0) L Urinalysis Test 05/28/24 22:36 05/30/24 04:30 Urine Color Dark-brown (Yellow) Urine Clarity Ex.turbid (Clear) Urine pH 6.0 (5.0-9.0) Urine Specific Salol 1.017 (1.001-1.035) Urine Protein 2+ (Negative) H Urine Ketones Trace (Negative) Urine Blood 1+ /uL (Negative) H Urine Nitrite Negative (Negative) Urine Bilirubin Negative (Negative) Urine Urobilinogen Normal mg/dL (Negative) Urine Leukocyte Esterase 3+ /uL (Negative) Urine RBC 56 /hpf (0 - 3) Urine WBC 3664 /hpf (0 - 3) Urine WBC Clumps Present /hpf (None Seen) Urine Squamous Epithelial Cells Many /hpf (<5) Urine Bacteria Mod /hpf (None Seen) H Urine Glucose Normal mg/dL (Normal) Urine Creatinine 33.57 mg/dL (30.0-125.0) Urine Sodium 85 mmol/L (40-220) Blood Gas Results Test 06/03/24 06:17 Arterial Blood pH 7.279 (7.350-7.450) FiO2 % 30.0 Microbiology Microbiology Date/Time Source Procedure Growth Status 05/30/24 11:45 Bronchial Washings Gram Stain - Final Complete 05/30/24 11:45 Respiratory Culture - Final Enterobacter cloacae Methicillin Resistant S.aureus Complete 05/30/24 11:45 Pleural Fluid Gram Stain - Final Resulted 05/30/24 11:45 Pleural Fluid Body Fluid Culture - Preliminary Resulted 05/29/24 12:15 Nose MRSA Screen - Final Complete 05/28/24 22:36 Urine - Catheterized Urine Culture - Final Enterobacter cloacae Escherichia coli Enterococcus faecalis - VRE Complete 05/28/24 21:43 Blood Blood Culture - Final Staphylococcus capitis Staphylococcus auricularis Complete Labs and/or images reviewed: Labs reviewed by me, Image(s) reviewed by me Assessment/Plan Assessment/Plan Impression: Acute metabolic encephalopathy due to uremia Sepsis due to UTI POA Y Severe anemia, HB 6 ? GI bleed FROYLAN on CKD stage 4, vasomotor mediated vs intrinsic NSTEMI type 2 due to demand ischemia Acute on chronic HFpEF Bilateral pleural effusion Anasarca Atrophic right kidney Cholelithiasis Hyperkalemia Metabolic acidosis Hypernatremia Hyperchloremia ? H/o hepatitis Decubitus ulcer POA Extensive metabolic surgical hardware in spine Plan: Events: Dialysis catheter with severe positional difficulties during treatment. We will exchange catheter today. Plans for repeat HD treatment today. -nephrology consultation: Patient was started on hemodialysis -CVP readin -continue current antibiotic coverage with meropenem and Zyvox. All MDRO does are sensitive to this treatment. -continue current ventilator settings -wound care consult -continue current sedation -continue free water and tube feeding -pains to q.6 Accu-Cheks -repeat labs, chest x-ray, ABG in a.m. -poor prognosis Critical care time spent with patient discussing and formulating plan of care: 40 minutes. This does not include time spent performing procedures. This medical document was created using an electronic medical record system with Dragon computerized dictation system. Although this document has been carefully reviewed, there may still be some phonetic and typographical errors. These areas are purely typographical due to imperfections of the software programs, and do not reflect any compromise in the patient's medical care. Plan discussed with: Other (RN) My Orders Orders - BREN NEVES NP Procedure Category Date Status Time Metoprolol Tartrate PHA 06/02/24 In Process Tablet (Lopressor Ta 10:45 Glucose Blood PHA 06/02/24 In Process (Accu-Chek Comfort 12:00 Insulin R (Human) PHA 06/02/24 In Process (Insulin R) 12:00 Dextrose 50% Syringe PHA 06/02/24 In Process 10:45 Communication Order ORDERS 06/02/24 Transmitted 13:47 Basic Metabolic Panel LAB 06/04/24 Verified 05:00 Basic Metabolic Panel LAB 06/05/24 Verified 05:00 Basic Metabolic Panel LAB 06/06/24 Verified 05:00 Basic Metabolic Panel LAB 06/07/24 Verified 05:00 Complete Blood Count LAB 06/04/24 Verified 05:00 Complete Blood Count LAB 06/05/24 Verified 05:00 Complete Blood Count LAB 06/06/24 Verified 05:00 Complete Blood Count LAB 06/07/24 Verified 05:00 Chest Portable XY 06/04/24 Logged 05:00 Chest Portable XY 06/05/24 Logged 05:00 Chest Portable XY 06/06/24 Logged 05:00 Chest Portable XY 06/07/24 Logged 05:00 Date of Service: Jun 03, 2024 Billing Provider: BREN NEVES NP Common Visit Codes: [id number] CARE 30-74 MIN BREN NEVES NP Jun 03, 2024 09:11
[2024-06-03] MEDS: MIDAZOLAM HCL 5 MG/ML-1ML VIAL ONE (09:50)
[2024-06-03] MEDS: MIDAZOLAM HCL 2MG/2ML 2ml VIAL (1mg/ml) IV ONE (09:50)
--- NOTE | 2024-06-03 10:44 | DVHNC2 ---
Central Line Recorder of insertion practice: Radiology Physician Occupation of sheeter operator: Other (James Neves NP) Room prepared for procedure: Yes Radiology Physician performed hand hygien: Yes Maximal sterile barrier precau: Mask/Eye shield, Sterile gown, Cap, Sterlie gloves, Large sterlie drape Skin Preparation: Chlorhexidine gluconate Skin preparation completely dr: Yes Insertion site: Left Central line catheter type: Dialysis non-tunneled Number of lumens: 2 Central line exchanged over a: Yes Antiseptic ointment applied to: Yes Post Assessment: Chest X-Ray Informed consent obtained: Yes Risks/benefits/alt described: Yes Notes Patient had HD catheter previously placed to the left internal jugular vein. Noted severe difficulty doing hemodialysis yesterday. He was incidental technique, J wire was advanced through the distal port with resistance noted. J-wire was then advanced through the side port which advanced without any difficulties. Catheter was removed. New 20 cm temporary dialysis catheter was then advanced over the wire without difficulty. Line was secured with suture, dressing. Inspection of the old HD catheter reveals a kink in the distal port. Estimated blood loss: 5 mL. Date of Service: Jun 03, 2024 Billing Provider: BREN NEVES NP Common Visit Codes: PROCEDURE ONLY Procedure Codes: [id number] NON-TUNNEL CV CATH BREN NEVES NP Jun 03, 2024 10:44
--- NOTE | 2024-06-03 10:50 | DVH ---
CHEST RADIOGRAPH Indication: dialysis catheter exchange Technique: Single frontal view of the chest was obtained COMPARISON: XY CHEST XRAY 1 VIEW on DOS: 06/02/24, XY CHEST PORTABLE on DOS: 06/01/24, XY CHEST XRAY 1 VIEW on DOS: 06/01/24 FINDINGS: Lines and Tubes: Endotracheal tube, enteric catheter, right and left central venous catheter in satis factory position. Lungs: Patchy bilateral airspace disease. Pleura: No effusion. No pneumothorax. Cardiomediastinal contours: Unremarkable Bones: Unremarkable IMPRESSION: Lines and tubes in satisfactory position. No significant interval change.
[2024-06-03] MEDS: SODIUM CHL 0.9% 1000 ML BAG XX ONE (13:45)
--- NOTE | 2024-06-03 18:17 | DVHPN2 ---
Progress Note Date Seen: Jun 03, 2024 Medical Necessity Reason Pt with a Central, PICC or Fol: Yes The following are medically ne: Central Line, Rubio Catheter Reason for rubio catheter: Strict I&O Subjective Patient reports: Other Review of Systems: Deferred Objective vital signs Vital Sign Date Time Temp Pulse Resp B/P (MAP) Pulse Ox O2 Delivery O2 Flow Rate FiO2 06/03/24 17:55 80 22 127/68 (87) 96 40 06/03/24 16:00 Mechanical Ventilator+ 06/03/24 16:00 98.3 98.3 06/03/24 10:00 Total Intake and Output 06/02/24 06/02/24 06/03/24 15:00 23:00 07:00 Intake Total 471 ml 1906.5 ml 876 ml Output Total 2020 ml 250 ml Balance 471 ml -113.5 ml 626 ml medications Current Medications Medications Dose Ordered Sig/[place] Route Start Time Stop Time Status Last Admin Dose Admin Midazolam HCl 50 ml @ 1 mls/hr Q24H IV 05/28/24 21:15 06/02/24 16:27 2 MLS/HR Albuterol 2.5 mg Q6HPRN PRN NEB 05/29/24 00:00 Fentanyl Citrate 250 ml @ 2.5 mls/hr Q24H IV 05/29/24 01:15 06/03/24 08:24 20 MLS/HR Pantoprazole Sodium 40 mg BID IV 05/29/24 22:00 06/03/24 11:37 40 MG Norepinephrine Bitartrate 250 ml @ 3.75 mls/hr Q24H IV 05/29/24 11:30 06/03/24 14:05 3.75 MLS/HR Enteral Nutritional Formula 1,000 ml 30ML/HR GT 05/30/24 11:00 Linezolid 300 ml @ 150 mls/hr Q12HR IV 05/31/24 10:00 06/03/24 11:38 150 MLS/HR Meropenem 50 ml @ 17 mls/hr DAILY IV 05/31/24 10:00 06/03/24 11:37 17 MLS/HR Iron Sucrose 110 ml @ 110 mls/hr DAILY@1200 IV 05/31/24 12:00 06/04/24 12:59 06/02/24 14:02 110 MLS/HR Metoprolol Tartrate 50 mg BID PO 06/02/24 10:45 06/03/24 11:38 50 MG Diagnostic Test (Pha) 1 strip Q6HR 06/02/24 12:00 06/03/24 11:48 1 STRIP Insulin Human Regular Q6HR SC 06/02/24 12:00 Dextrose 50 ml UD PRN IV 06/02/24 10:45 Hydralazine HCl 10 mg Q4HPRN PRN IV 06/03/24 15:15 Examination: LUNGS:Abnormal, MSK:Abnormal, SKIN:Abnormal, NEURO:Abnormal laboratory and microbiology Laboratory Tests 06/03/24 03:47 Test 06/03/24 03:47 Range/Units Serum Glucose 98 74-106 mg/dL Microbiology Date/Time Source Procedure Growth Status 05/30/24 11:45 Bronchial Washings Gram Stain - Final Complete 05/30/24 11:45 Respiratory Culture - Final Enterobacter cloacae Methicillin Resistant S.aureus Complete 05/30/24 11:45 Pleural Fluid Gram Stain - Final Resulted 05/30/24 11:45 Pleural Fluid Body Fluid Culture - Preliminary Resulted 05/29/24 12:15 Nose MRSA Screen - Final Complete 05/28/24 22:36 Urine - Catheterized Urine Culture - Final Enterobacter cloacae Escherichia coli Enterococcus faecalis - VRE Complete 05/28/24 21:43 Blood Blood Culture - Final Staphylococcus capitis Staphylococcus auricularis Complete Problem List/Assessment/Plan Problem List/Assessment/Plan Acute kidney injury on chronic kidney disease stage 4 -> ATN needing HD Acute respiratory failure on vent Anemia suspected due to low blood loss s/p PRBC Hypernatremia Hypokalemia Metabolic acidosis Chronic urinary retention sepsis due to bacteremia recs HD today /poor cath flows very positional cath--despite changing Repeat blood cultures once negative will consider tunneled cath Poor candidate for long-term dialysis, this was explained to patient's son however this time he wishes to pursue aggressive treatment Plan discussed with: Son, Other My Orders My Orders Orders - SUKI MERINO MD Procedure Category Date Status Time Hemodialysis Orders ORDERS 06/03/24 Transmitted 15:12 Dietary Evaluation Review Comments: 1) If GI is assessible consider Jevity 1.2 @ 60 ml/hr x24 hrs goal rate as tolerated 2) If pt remains NPO >7 days consider TPN to meet at least 75% of estimated needs 3) Advance pt diet when medically feasible to a Cardiac/Renal Specific K2,2gmNA,low phos,60g Pro diet modified per INSTRUMENT CALIBRATOR recommendations 4) Continue current plan of care Expected Outcomes/Goals: 1) Pt to receive adequate nutrition support 2) Pt diet to advance CC Plasma Assessment Blood Product Administration S: [id number] SUKI MERINO MD Jun 03, 2024 18:17
--- NOTE | 2024-06-03 21:03 | DVHPN2 ---
Progress Note - Dictate Date Seen: Jun 03, 2024 Medical Necessity Reason Pt with a Central, PICC or Fol: Yes The following are medically ne: Central Line, Rubio Catheter Reason for rubio catheter: Strict I&O Subjective Patient seen and examined at bedside. Sedated, intubated on mechanical ventilator. Overnight events reviewed. vital signs Vital Sign Date Time Temp Pulse Resp B/P (MAP) Pulse Ox O2 Delivery O2 Flow Rate FiO2 06/03/24 20:10 78 22 119/58 (78) 93 40 06/03/24 18:00 Mechanical Ventilator+ 06/03/24 16:00 98.3 98.3 06/03/24 10:00 Total Intake and Output 06/02/24 06/02/24 06/03/24 15:00 23:00 07:00 Intake Total 471 ml 1906.5 ml 876 ml Output Total 2020 ml 250 ml Balance 471 ml -113.5 ml 626 ml medications Current Medications Medications Dose Ordered Sig/[place] Route Start Time Stop Time Status Last Admin Dose Admin Midazolam HCl 50 ml @ 1 mls/hr Q24H IV 05/28/24 21:15 06/03/24 19:18 2 MLS/HR Albuterol 2.5 mg Q6HPRN PRN NEB 05/29/24 00:00 Fentanyl Citrate 250 ml @ 2.5 mls/hr Q24H IV 05/29/24 01:15 06/03/24 19:48 20 MLS/HR Pantoprazole Sodium 40 mg BID IV 05/29/24 22:00 06/03/24 11:37 40 MG Norepinephrine Bitartrate 250 ml @ 3.75 mls/hr Q24H IV 05/29/24 11:30 06/03/24 14:05 3.75 MLS/HR Enteral Nutritional Formula 1,000 ml 30ML/HR GT 05/30/24 11:00 Linezolid 300 ml @ 150 mls/hr Q12HR IV 05/31/24 10:00 06/03/24 11:38 150 MLS/HR Meropenem 50 ml @ 17 mls/hr DAILY IV 05/31/24 10:00 06/03/24 11:37 17 MLS/HR Iron Sucrose 110 ml @ 110 mls/hr DAILY@1200 IV 05/31/24 12:00 06/04/24 12:59 06/03/24 12:00 110 MLS/HR Metoprolol Tartrate 50 mg BID PO 06/02/24 10:45 06/03/24 11:38 50 MG Diagnostic Test (Pha) 1 strip Q6HR 06/02/24 12:00 06/03/24 18:11 1 STRIP Insulin Human Regular Q6HR SC 06/02/24 12:00 Dextrose 50 ml UD PRN IV 06/02/24 10:45 Hydralazine HCl 10 mg Q4HPRN PRN IV 06/03/24 15:15 objective Gen.: Patient lying in bed in medical ICU. Sedated, intubated on mechanical ventilator. Head: Normocephalic, atraumatic. Eyes: PERRLA. Ears: Normal external anatomy. Throat: Endotracheal tube and orogastric tube in place. Neck: Supple, trachea midline. Chest: Transmitted breath sounds bilaterally. Decreased air entry bilaterally. No wheezing. Bibasilar crackles. Cardiovascular: Positive S1, positive S2. Regular rate and rhythm. Abdomen: Positive bowel sounds in all 4 quadrants. Soft, nontender, nondistended. : Rubio in place. Normal external genitalia. Rectal: Deferred. Skin: Warm, dry. Intact. Extremities: 2+ radial pulses bilaterally. No lower extremity edema. Neuro: Sedated. laboratory and microbiology Laboratory Tests 06/03/24 03:47 Test 06/03/24 03:47 Range/Units Serum Glucose 98 74-106 mg/dL Assessment/Plan Impression: Acute hypoxic respiratory failure On mechanical ventilator Multifocal pneumonia Atelectasis Congestive heart failure Events: Remains on vent support On AC mode; RR 22, VT 500, PEEP 5, FiO2 of 40%. Taper sedation and plan for CPAP. Hydralazine PRN. S/p left IJ Homer replacement. Plan for HD today Nephrology recs appreciated. Hypernatremia, sodium of 144 Stop free water Monitor hemoglobin Transfuse if less than 7.0 g/dL. Sedated on Fentanyl and Versed. Continue abx - Zyvox, meropenem. Tube feeds for nutritional support HD per Nephrology Suprapubic cath replaced yesterday. NTS PRN. S/p bronchoscopy with BAL on 06/02. See procedure note for full details. Rest of plan as noted below Plan: s/p intubation on mechanical ventilator. On AC mode; RR 22, VT 500, PEEP 5, FiO2 of 40%. ABG reviewed, notable for acidemia CXR reviewed, demonstrated e/o multifocal pneumonia, devices in place. Titrate FIO2 to keep O2 saturation above 90%. VAP bundle. Daily ABG and CXR while intubated Sedated for ventilator synchrony - on Fentanyl, Versed Antibiotics F/u cultures. Positive hepatitis C. IV fluids at 100 ml/hr Diurese to euvolemia Monitor renal function Monitor electrolytes. Supplement as necessary. Monitor ins and outs. Tube feeds for nutritional support. GI prophylaxis. DVT prophylaxis. Prognosis: Poor given patient's multiple co-morbidities. Condition: Critical Rest of plan per hospitalist and other consultants. A total of 35 minutes of critical care time was spent reviewing the patient record, examining the patient, making a diagnostic and therapeutic plan, discussing this plan with the medical personnel, following up on diagnostic studies and following the patient for clinical stability excluding any and all procedures. At least 50% of this time was spent in direct, [id number] contact. Thank you Anthony Ugalde, JES, for allowing me to participate in this patient's care. Further recommendations will depend on the patient's clinical course. Please do not hesitate to contact me if you have any questions or concerns. This medical document was created using an electronic medical record system with [employer] dictation system. Although these documentations are being carefully reviewed, there may still be some phonetic and typographical changes. The errors are purely typographical, due to imperfection on the software program, and do not reflect any compromise in the patient's medical care. Dietary Evaluation Review Comments: 1) If GI is assessible consider Jevity 1.2 @ 60 ml/hr x24 hrs goal rate as tolerated 2) If pt remains NPO >7 days consider TPN to meet at least 75% of estimated needs 3) Advance pt diet when medically feasible to a Cardiac/Renal Specific K2,2gmNA,low phos,60g Pro diet modified per FAMILY PRACTICE MD recommendations 4) Continue current plan of care Expected Outcomes/Goals: 1) Pt to receive adequate nutrition support 2) Pt diet to advance Plan discussed with: Other (DORCAS Haq) Critical Care Time(min): 35 CC Plasma Assessment Blood Product Administration S: [id number] ELINAE ALTAMIRANO MD Jun 03, 2024 21:03
[2024-06-04] VITALS (111 sets, daily range): BP systolic 94–218; BP diastolic 52–94; PULSE 72–111; RESP 10–29; TEMP 98.1–98.8; O2SAT 92–100
[2024-06-04 03:50] LABS: Basophils # (auto) 0 10 ^3/uL (0-0.2); Hemoglobin 7.2 g/dL (13.5-17.5); Lymphocytes # (auto) 0.8 10 ^3/uL (0.4-5.4); Neutrophils # (auto) 2.6 10 ^3/uL (1.6-8.6)
[2024-06-04 03:52] LABS: Basophils % (auto) 0.7 % (0.0-2.0); Eosinophils # (auto) 0.3 10 ^3/uL (0-0.8); Eosinophils % (auto) 6.1 % (0.0-7.0); Hematocrit 21.6 % (41.0-53.0); Lymphocytes % (auto) 18.7 % (10.0-50.0); Mean Corpuscular Hemoglobin 31.5 pg (28.0-32.0); Mean Corpuscular Hgb Conc. 33.4 g/dL (32.0-36.0); Mean Corpuscular Volume 94.3 fL (80.0-100.0); Monocytes # (auto) 0.5 10 ^3/uL (0-1.3); Monocytes % (auto) 11.5 % (0.0-12.0); Nucleated Red Blood Cells % 0.1 %; Platelet Count (auto) 67 10^3/uL (140-450); Red Blood Cells 2.29 10^6/uL (4.5-5.90); Red Cell Distribution Width 16.3 % (11.8-14.3); White Blood Cell 4.1 10^3/uL (4.4-10.8)
[2024-06-04 03:54] LABS: Chloride 109 mmol/L (98-107); Potassium 3.4 mmol/L (3.5-5.1); Sodium 143 mmol/L (136-145)
[2024-06-04 03:55] LABS: Anion Gap 13 (5-15); Calcium 8.6 mg/dL (8.7-10.4); Carbon Dioxide 21 mmol/L (20-31)
[2024-06-04 04:00] LABS: Glucose 96 mg/dL (74-106)
[2024-06-04 04:10] LABS: Blood Urea Nitrogen 78 mg/dL (9-23)
--- NOTE | 2024-06-04 04:36 | DVH ---
CHEST RADIOGRAPH Indication: pna Technique: Single frontal view of the chest was obtained Comparison: XY CHEST PORTABLE on DOS: 06/03/24, XY CHEST XRAY 1 VIEW on DOS: 06/02/24, XY CHEST SHABNAM BLE on DOS: 06/01/24 FINDINGS: Lines and Tubes: The endotracheal tube terminates 7.1 cm above the chacho. Right and left central joe ous catheters are unchanged. The enteric tube courses below the left hemidiaphragm and the tip extend s outside the field of view. Lungs: Bilateral opacities similar to prior study. Pleura: Blunting of the left costophrenic sulcus may suggest a small left pleural effusion. There may be trace right pleural effusion. No pneumothorax. Cardiomediastinal contours: Unremarkable Bones: No acute osseous abnormality. Orthopedic rods overlying the spine. IMPRESSION: 1. Stable position of the support lines and tubes. 2. Bilateral opacities and probable small bilateral pleural effusions, not significantly changed.
[2024-06-04 07:11] LABS: Base Excess -5.5 mmol/L (-2.0-3.0)
--- NOTE | 2024-06-04 08:59 | DVHPN2 ---
Subjective Patient chemically sedated. Reviewed: Care Plan, H&P, Labs, Medications Changes from previous H/P or p: No Changes General: Per HPI Objective Vitals Vital Signs Date Time Temp Pulse Resp B/P (MAP) Pulse Ox O2 Delivery O2 Flow Rate FiO2 06/04/24 08:25 154/88 06/04/24 08:12 88 22 95 35 06/04/24 06:00 Mechanical Ventilator+ 06/04/24 04:00 98.1 98.1 06/03/24 10:00 Intake/Output Intake and Output 06/04/24 07:00 Intake Total 1153.5 ml Output Total 65 ml Balance 1088.5 ml Intake Oral 30 ml IV Total 823.5 ml Tube Feeding 300 ml Output Urine Total 40 ml Stool Total 25 ml Exam Patient receiving hemodialysis. General Appearance: Other (Chemically sedated) HEENT: Atraumatic, PERRLA Lungs: Other (Mechanical ventilation) Cardiovascular: Normal S1, Normal S2 Abdomen: Normal bowel sounds, Soft, No tenderness Genitourinary: No Apparent Abnormalities (Peralta catheter) Musculoskeletal: Other (No motor movement) Extremities: No clubbing, No cyanosis Skin: Wounds (See nurse notes and pictures) Psych/Mental Status: Other (Unable to assess) Medications Current Medications Medications Dose Ordered Sig/[place] Route Start Time Stop Time Status Last Admin Dose Admin Midazolam HCl 50 ml @ 1 mls/hr Q24H IV 05/28/24 21:15 06/03/24 19:18 2 MLS/HR Albuterol 2.5 mg Q6HPRN PRN NEB 05/29/24 00:00 Fentanyl Citrate 250 ml @ 2.5 mls/hr Q24H IV 05/29/24 01:15 06/04/24 06:47 20 MLS/HR Pantoprazole Sodium 40 mg BID IV 05/29/24 22:00 06/03/24 22:14 40 MG Norepinephrine Bitartrate 250 ml @ 3.75 mls/hr Q24H IV 05/29/24 11:30 06/03/24 14:05 3.75 MLS/HR Enteral Nutritional Formula 1,000 ml 30ML/HR GT 05/30/24 11:00 Linezolid 300 ml @ 150 mls/hr Q12HR IV 05/31/24 10:00 06/03/24 22:14 150 MLS/HR Meropenem 50 ml @ 17 mls/hr DAILY IV 05/31/24 10:00 06/03/24 11:37 17 MLS/HR Iron Sucrose 110 ml @ 110 mls/hr DAILY@1200 IV 05/31/24 12:00 06/04/24 12:59 06/03/24 12:00 110 MLS/HR Metoprolol Tartrate 50 mg BID PO 06/02/24 10:45 06/03/24 22:14 50 MG Diagnostic Test (Pha) 1 strip Q6HR 06/02/24 12:00 06/04/24 06:27 1 STRIP Insulin Human Regular Q6HR SC 06/02/24 12:00 Dextrose 50 ml UD PRN IV 06/02/24 10:45 Hydralazine HCl 10 mg Q4HPRN PRN IV 06/03/24 15:15 Laboratory Results Laboratory Tests 06/04/24 03:28 Chemistry Test 06/04/24 03:28 Calcium Level 8.6 mg/dL (8.7-10.4) L Urinalysis Test 05/28/24 22:36 05/30/24 04:30 Urine Color Dark-brown (Yellow) Urine Clarity Ex.turbid (Clear) Urine pH 6.0 (5.0-9.0) Urine Specific [place] 1.017 (1.001-1.035) Urine Protein 2+ (Negative) H Urine Ketones Trace (Negative) Urine Blood 1+ /uL (Negative) H Urine Nitrite Negative (Negative) Urine Bilirubin Negative (Negative) Urine Urobilinogen Normal mg/dL (Negative) Urine Leukocyte Esterase 3+ /uL (Negative) Urine RBC 56 /hpf (0 - 3) Urine WBC 3664 /hpf (0 - 3) Urine WBC Clumps Present /hpf (None Seen) Urine Squamous Epithelial Cells Many /hpf (<5) Urine Bacteria Mod /hpf (None Seen) H Urine Glucose Normal mg/dL (Normal) Urine Creatinine 33.57 mg/dL (30.0-125.0) Urine Sodium 85 mmol/L (40-220) Blood Gas Results Test 06/04/24 07:04 Arterial Blood pH 7.337 (7.350-7.450) FiO2 % 35.0 Microbiology Microbiology Date/Time Source Procedure Growth Status 06/02/24 22:27 Blood Blood Culture - Preliminary Resulted 05/30/24 11:45 Bronchial Washings Gram Stain - Final Complete 05/30/24 11:45 Respiratory Culture - Final Enterobacter cloacae Methicillin Resistant S.aureus Complete 05/30/24 11:45 Pleural Fluid Gram Stain - Final Resulted 05/30/24 11:45 Pleural Fluid Body Fluid Culture - Preliminary Resulted 05/29/24 12:15 Nose MRSA Screen - Final Complete 05/28/24 22:36 Urine - Catheterized Urine Culture - Final Enterobacter cloacae Escherichia coli Enterococcus faecalis - VRE Complete Labs and/or images reviewed: Labs reviewed by me, Image(s) reviewed by me Assessment/Plan Assessment/Plan Impression: Acute metabolic encephalopathy due to uremia Sepsis due to UTI POA Y Severe anemia, HB 6 ? GI bleed FROYLAN on CKD stage 4, vasomotor mediated vs intrinsic NSTEMI type 2 due to demand ischemia Acute on chronic HFpEF Bilateral pleural effusion Anasarca Atrophic right kidney Cholelithiasis Hyperkalemia Metabolic acidosis Hypernatremia Hyperchloremia ? H/o hepatitis Decubitus ulcer POA Extensive metabolic surgical hardware in spine Plan: Events: Patient received HD yesterday. Patient hemodynamically stable. Plans for CPAP trial once appropriate. -nephrology consultation: Patient was started on hemodialysis -CVP readin -continue current antibiotic coverage with meropenem and Zyvox. All MDRO does are sensitive to this treatment. -continue current ventilator settings : Per pulmonology -wound care consult -continue current sedation -continue tube feeding. Stop free water given correction of hypernatremia -pains to q.6 Accu-Cheks -repeat labs, chest x-ray, ABG in a.m. -poor prognosis Critical care time spent with patient discussing and formulating plan of care: 40 minutes. This does not include time spent performing procedures. This medical document was created using an electronic medical record system with [email or web address] dictation system. Although this document has been carefully reviewed, there may still be some phonetic and typographical errors. These areas are purely typographical due to imperfections of the software programs, and do not reflect any compromise in the patient's medical care. Plan discussed with: Patient, Other (RN) My Orders Orders - BREN NEVES PROPOSAL MANAGER WRITER Procedure Category Date Status Time Chest Portable XY 06/03/24 Resulted 10:20 Hydralazine Injection PHA 06/03/24 In Process (Apresoline Inject 15:15 Date of Service: Jun 04, 2024 Billing Provider: BREN NEVES NP Common Visit Codes: 01228-[id number] CARE 30-74 MIN BREN NEVES NP Jun 04, 2024 08:59
[2024-06-04] MEDS: hydrALAZINE HCL 20 MG/ML VL IV PRN (13:29)
--- NOTE | 2024-06-04 15:47 | DVHPN2 ---
Progress Note Date Seen: Jun 04, 2024 Medical Necessity Reason Pt with a Central, PICC or Fol: Yes The following are medically ne: Central Line, Rubio Catheter Reason for rubio catheter: Strict I&O Subjective Patient reports: Other (Patient remains intubated) Review of Systems: Deferred Objective vital signs Vital Sign Date Time Temp Pulse Resp B/P (MAP) Pulse Ox O2 Delivery O2 Flow Rate FiO2 06/04/24 14:15 81 10 125/64 (84) 95 06/04/24 14:15 35 06/04/24 13:55 Mechanical Ventilator+ 06/04/24 08:00 98.8 98.8 06/03/24 10:00 Total Intake and Output 06/03/24 06/03/24 06/04/24 15:00 23:00 07:00 Intake Total 176 ml 176 ml 801.5 ml Output Total 65 ml Balance 176 ml 176 ml 736.5 ml medications Current Medications Medications Dose Ordered Sig/[place] Route Start Time Stop Time Status Last Admin Dose Admin Midazolam HCl 50 ml @ 1 mls/hr Q24H IV 05/28/24 21:15 06/03/24 19:18 2 MLS/HR Albuterol 2.5 mg Q6HPRN PRN NEB 05/29/24 00:00 Fentanyl Citrate 250 ml @ 2.5 mls/hr Q24H IV 05/29/24 01:15 06/04/24 06:47 20 MLS/HR Pantoprazole Sodium 40 mg BID IV 05/29/24 22:00 06/04/24 10:05 40 MG Norepinephrine Bitartrate 250 ml @ 3.75 mls/hr Q24H IV 05/29/24 11:30 06/03/24 14:05 3.75 MLS/HR Enteral Nutritional Formula 1,000 ml 30ML/HR GT 05/30/24 11:00 Linezolid 300 ml @ 150 mls/hr Q12HR IV 05/31/24 10:00 06/04/24 09:20 150 MLS/HR Meropenem 50 ml @ 17 mls/hr DAILY IV 05/31/24 10:00 06/04/24 11:27 17 MLS/HR Metoprolol Tartrate 50 mg BID PO 06/02/24 10:45 06/04/24 10:05 50 MG Diagnostic Test (Pha) 1 strip Q6HR 06/02/24 12:00 06/04/24 12:03 1 STRIP Insulin Human Regular Q6HR SC 06/02/24 12:00 Dextrose 50 ml UD PRN IV 06/02/24 10:45 Hydralazine HCl 10 mg Q4HPRN PRN IV 06/03/24 15:15 06/04/24 13:29 10 MG Examination: GENERAL:Abnormal, LUNGS:Abnormal, MSK:Abnormal, SKIN:Abnormal, NEURO:Abnormal laboratory and microbiology Laboratory Tests 06/04/24 03:28 Test 06/04/24 03:28 Range/Units Serum Glucose 96 74-106 mg/dL Microbiology Date/Time Source Procedure Growth Status 06/02/24 22:27 Blood Blood Culture - Preliminary Resulted 05/30/24 11:45 Bronchial Washings Gram Stain - Final Complete 05/30/24 11:45 Respiratory Culture - Final Enterobacter cloacae Methicillin Resistant S.aureus Complete 05/30/24 11:45 Pleural Fluid Gram Stain - Final Complete 05/30/24 11:45 Pleural Fluid Body Fluid Culture - Final Complete 05/29/24 12:15 Nose MRSA Screen - Final Complete 05/28/24 22:36 Urine - Catheterized Urine Culture - Final Enterobacter cloacae Escherichia coli Enterococcus faecalis - VRE Complete Problem List/Assessment/Plan Problem List/Assessment/Plan Acute kidney injury on chronic kidney disease stage 4 -> likely septic ATN needing HD Acute respiratory failure on vent Anemia suspected due to low blood loss s/p PRBC Hypernatremia Hypokalemia Metabolic acidosis Chronic urinary retention sepsis due to bacteremia recs Consider ID eval blood cultures positive consistently despite being on antibiotics HD tomorrow /poor cath flows very positional cath--despite changing --- Repeat blood cultures once negative for three days will consider tunneled cath Poor candidate for long-term dialysis, this was explained to patient's son however this time he wishes to pursue aggressive treatment Plan discussed with: Other Dietary Evaluation Review Comments: 1) If GI is assessible consider Jevity 1.2 @ 60 ml/hr x24 hrs goal rate as tolerated 2) If pt remains NPO >7 days consider TPN to meet at least 75% of estimated needs 3) Advance pt diet when medically feasible to a Cardiac/Renal Specific K2,2gmNA,low phos,60g Pro diet modified per INDUSTRIAL TECHNOLOGY TEACHER recommendations 4) Continue current plan of care Expected Outcomes/Goals: 1) Pt to receive adequate nutrition support 2) Pt diet to advance CC Plasma Assessment Blood Product Administration S: [id number] SUKI MERINO MD Jun 04, 2024 15:47
--- NOTE | 2024-06-04 21:20 | DVHPN2 ---
Progress Note - Dictate Date Seen: Jun 04, 2024 Medical Necessity Reason Pt with a Central, PICC or Fol: Yes The following are medically ne: Central Line, Rubio Catheter Reason for rubio catheter: Strict I&O Subjective Patient seen and examined at bedside. Sedated, intubated on mechanical ventilator. Overnight events reviewed. vital signs Vital Sign Date Time Temp Pulse Resp B/P (MAP) Pulse Ox O2 Delivery O2 Flow Rate FiO2 06/04/24 21:00 95 15 170/78 (108) 94 06/04/24 20:00 98.7 98.7 06/04/24 20:00 Mechanical Ventilator+ 30 30 06/03/24 10:00 Total Intake and Output 06/03/24 06/03/24 06/04/24 15:00 23:00 07:00 Intake Total 176 ml 176 ml 801.5 ml Output Total 65 ml Balance 176 ml 176 ml 736.5 ml medications Current Medications Medications Dose Ordered Sig/[place] Route Start Time Stop Time Status Last Admin Dose Admin Midazolam HCl 50 ml @ 1 mls/hr Q24H IV 05/28/24 21:15 06/03/24 19:18 2 MLS/HR Albuterol 2.5 mg Q6HPRN PRN NEB 05/29/24 00:00 Fentanyl Citrate 250 ml @ 2.5 mls/hr Q24H IV 05/29/24 01:15 06/04/24 06:47 20 MLS/HR Pantoprazole Sodium 40 mg BID IV 05/29/24 22:00 06/04/24 10:05 40 MG Norepinephrine Bitartrate 250 ml @ 3.75 mls/hr Q24H IV 05/29/24 11:30 06/03/24 14:05 3.75 MLS/HR Enteral Nutritional Formula 1,000 ml 30ML/HR GT 05/30/24 11:00 Linezolid 300 ml @ 150 mls/hr Q12HR IV 05/31/24 10:00 06/04/24 09:20 150 MLS/HR Meropenem 50 ml @ 17 mls/hr DAILY IV 05/31/24 10:00 06/04/24 11:27 17 MLS/HR Metoprolol Tartrate 50 mg BID PO 06/02/24 10:45 06/04/24 10:05 50 MG Diagnostic Test (Pha) 1 strip Q6HR 06/02/24 12:00 06/04/24 18:00 1 STRIP Insulin Human Regular Q6HR SC 06/02/24 12:00 Dextrose 50 ml UD PRN IV 06/02/24 10:45 Hydralazine HCl 10 mg Q4HPRN PRN IV 06/03/24 15:15 06/04/24 20:39 10 MG objective Gen.: Patient lying in bed in medical ICU. Sedated, intubated on mechanical ventilator. Head: Normocephalic, atraumatic. Eyes: PERRLA. Ears: Normal external anatomy. Throat: Endotracheal tube and orogastric tube in place. Neck: Supple, trachea midline. Chest: Transmitted breath sounds bilaterally. Decreased air entry bilaterally. No wheezing. Bibasilar crackles. Cardiovascular: Positive S1, positive S2. Regular rate and rhythm. Abdomen: Positive bowel sounds in all 4 quadrants. Soft, nontender, nondistended. : Urbio in place. Normal external genitalia. Rectal: Deferred. Skin: Warm, dry. Intact. Extremities: 2+ radial pulses bilaterally. No lower extremity edema. Neuro: Sedated. laboratory and microbiology Laboratory Tests 06/04/24 03:28 Test 06/04/24 03:28 Range/Units Serum Glucose 96 74-106 mg/dL Assessment/Plan Impression: Acute hypoxic respiratory failure On mechanical ventilator Multifocal pneumonia Atelectasis Congestive heart failure Events: Remains on vent support On AC mode; RR 22, VT 500, PEEP 5, FiO2 of 35%. Sedated on Fentanyl. Off Levophed. Apneic episodes on CPAP. Hydralazine PRN. Monitor hemoglobin Transfuse if less than 7.0 g/dL. Continue abx - Zyvox, meropenem. Tube feeds for nutritional support HD per Nephrology Monitor renal function Monitor electrolytes. Supplement as necessary. Monitor sodium d/t hypernatremia NTS PRN. S/p bronchoscopy with BAL on 06/02. See procedure note for full details. Rest of plan as noted below Plan: s/p intubation on mechanical ventilator. On AC mode; RR 22, VT 500, PEEP 5, FiO2 of 35%. ABG reviewed, notable for acidemia CXR reviewed, demonstrated e/o multifocal pneumonia, devices in place. Titrate FIO2 to keep O2 saturation above 90%. VAP bundle. Daily ABG and CXR while intubated Sedated for ventilator synchrony - on Fentanyl Antibiotics F/u cultures. Positive hepatitis C. IV fluids at 100 ml/hr Diurese to euvolemia Monitor renal function Monitor electrolytes. Supplement as necessary. Monitor ins and outs. Tube feeds for nutritional support. GI prophylaxis. DVT prophylaxis. Prognosis: Poor given patient's multiple co-morbidities. Condition: Critical Rest of plan per hospitalist and other consultants. A total of 35 minutes of critical care time was spent reviewing the patient record, examining the patient, making a diagnostic and therapeutic plan, discussing this plan with the medical personnel, following up on diagnostic studies and following the patient for clinical stability excluding any and all procedures. At least 50% of this time was spent in direct, [id number] contact. Thank you Anthony Ugalde NP, for allowing me to participate in this patient's care. Further recommendations will depend on the patient's clinical course. Please do not hesitate to contact me if you have any questions or concerns. This medical document was created using an electronic medical record system with [employer] dictation system. Although these documentations are being carefully reviewed, there may still be some phonetic and typographical changes. The errors are purely typographical, due to imperfection on the software program, and do not reflect any compromise in the patient's medical care. Dietary Evaluation Review Comments: 1) If GI is assessible consider Jevity 1.2 @ 60 ml/hr x24 hrs goal rate as tolerated 2) If pt remains NPO >7 days consider TPN to meet at least 75% of estimated needs 3) Advance pt diet when medically feasible to a Cardiac/Renal Specific K2,2gmNA,low phos,60g Pro diet modified per SPOTLIGHT OPERATOR recommendations 4) Continue current plan of care Expected Outcomes/Goals: 1) Pt to receive adequate nutrition support 2) Pt diet to advance Plan discussed with: Other (DORCAS Fraser) Critical Care Time(min): 35 CC Plasma Assessment Blood Product Administration S: [id number] ELIANE ALTAMIRANO MD Jun 04, 2024 21:20
[2024-06-05] VITALS (124 sets, daily range): BP systolic 120–198; BP diastolic 52–148; PULSE 71–109; RESP 9–25; TEMP 96.6–98.7; O2SAT 89–100
[2024-06-05 03:27] LABS: Hematocrit 19.7 % (41.0-53.0); Platelet Count (auto) 91 10^3/uL (140-450); Red Blood Cells 2.08 10^6/uL (4.5-5.90); White Blood Cell 4.7 10^3/uL (4.4-10.8)
[2024-06-05 03:29] LABS: Mean Corpuscular Hemoglobin 31.4 pg (28.0-32.0); Mean Corpuscular Hgb Conc. 33.2 g/dL (32.0-36.0); Mean Corpuscular Volume 94.8 fL (80.0-100.0); Red Cell Distribution Width 16.3 % (11.8-14.3)
[2024-06-05 03:37] LABS: Carbon Dioxide 21 mmol/L (20-31)
[2024-06-05 03:38] LABS: Calcium 8.9 mg/dL (8.7-10.4)
[2024-06-05 03:39] LABS: Hemoglobin 6.5 g/dL (13.5-17.5)
[2024-06-05 03:40] LABS: Band Neutrophils % (manual) 0; Basophils % (manual) 0 (0.0-2.0); Blast Cells 0; Metamyelocytes % 0; Myelocytes % 0; Promyelocytes % 0; Reactive Lymphocytes 0
[2024-06-05 03:43] LABS: BUN/Creatinine Ratio 13.4 (10.0-20.0); Glucose 101 mg/dL (74-106)
[2024-06-05 04:14] LABS: Sodium 142 mmol/L (136-145)
[2024-06-05 04:15] LABS: Anion Gap 14 (5-15); Blood Urea Nitrogen 81 mg/dL (9-23); Chloride 107 mmol/L (98-107); Potassium 3.4 mmol/L (3.5-5.1)
--- NOTE | 2024-06-05 05:24 | DVH ---
CHEST RADIOGRAPH Indication: pna Technique: Single frontal view of the chest was obtained COMPARISON: XY CHEST PORTABLE on DOS: 06/04/24, XY CHEST PORTABLE on DOS: 06/03/24, XY CHEST XRAY 1 V IEW on DOS: 06/02/24 FINDINGS: Lines and Tubes: Endotracheal tube, enteric catheter, right and left central venous catheter is in sa tisfactory position. Lungs: Multifocal airspace disease. Pleura: No effusion. No pneumothorax. Cardiomediastinal contours: Unremarkable Bones: Unremarkable IMPRESSION: Lines and tubes in satisfactory position. No significant interval change.
[2024-06-05] MEDS: POTASSIUM CHL 20MEQ/100ML 100 ML IV ONE ×2 (05:46→22:21)
[2024-06-05 06:20] LABS: Eosinophils % (manual) 4 (0-7); Large Platelets FEW; Lymphocytes % (manual) 17 (10.0-50.0); Monocytes % (manual) 8 (0-12); Platelet Estimate Decreased
[2024-06-05 07:15] LABS: Base Excess -4.5 mmol/L (-2.0-3.0)
--- NOTE | 2024-06-05 11:25 | DVHPN2 ---
Progress Note Date Seen: Jun 05, 2024 Medical Necessity Reason Pt with a Central, PICC or Fol: Yes The following are medically ne: Central Line, Rubio Catheter Reason for rubio catheter: Strict I&O Subjective Patient reports: Other (events noted ) Review of Systems: Deferred Objective vital signs Vital Sign Date Time Temp Pulse Resp B/P (MAP) Pulse Ox O2 Delivery O2 Flow Rate FiO2 06/05/24 11:06 107 22 134/93 (107) 91 30 06/05/24 10:31 96.6 96.6 06/05/24 06:00 Mechanical Ventilator+ 06/03/24 10:00 Total Intake and Output 06/04/24 06/04/24 06/05/24 15:00 23:00 07:00 Intake Total 367.13 ml 520.0 ml 329.1 ml Output Total 150 ml 170 ml Balance 367.13 ml 370.0 ml 159.1 ml medications Current Medications Medications Dose Ordered Sig/[place] Route Start Time Stop Time Status Last Admin Dose Admin Midazolam HCl 50 ml @ 1 mls/hr Q24H IV 05/28/24 21:15 06/03/24 19:18 2 MLS/HR Albuterol 2.5 mg Q6HPRN PRN NEB 05/29/24 00:00 Fentanyl Citrate 250 ml @ 2.5 mls/hr Q24H IV 05/29/24 01:15 06/04/24 06:47 20 MLS/HR Pantoprazole Sodium 40 mg BID IV 05/29/24 22:00 06/04/24 21:54 40 MG Norepinephrine Bitartrate 250 ml @ 3.75 mls/hr Q24H IV 05/29/24 11:30 06/03/24 14:05 3.75 MLS/HR Enteral Nutritional Formula 1,000 ml 30ML/HR GT 05/30/24 11:00 Linezolid 300 ml @ 150 mls/hr Q12HR IV 05/31/24 10:00 06/04/24 21:54 150 MLS/HR Meropenem 50 ml @ 17 mls/hr DAILY IV 05/31/24 10:00 06/04/24 11:27 17 MLS/HR Metoprolol Tartrate 50 mg BID PO 06/02/24 10:45 06/04/24 21:54 50 MG Diagnostic Test (Pha) 1 strip Q6HR 06/02/24 12:00 06/05/24 05:44 1 STRIP Insulin Human Regular Q6HR SC 06/02/24 12:00 Dextrose 50 ml UD PRN IV 06/02/24 10:45 Hydralazine HCl 10 mg Q4HPRN PRN IV 06/03/24 15:15 06/04/24 20:39 10 MG Examination: GENERAL:Abnormal, HEENT:Abnormal, LUNGS:Abnormal, ABDOMEN:Abnormal, MSK:Abnormal, SKIN:Abnormal, :Abnormal laboratory and microbiology Laboratory Tests 06/05/24 03:09 Test 06/05/24 03:09 Range/Units Serum Glucose 101 74-106 mg/dL Microbiology Date/Time Source Procedure Growth Status 06/02/24 22:27 Blood Blood Culture - Preliminary Resulted 05/30/24 11:45 Bronchial Washings Gram Stain - Final Complete 05/30/24 11:45 Respiratory Culture - Final Enterobacter cloacae Methicillin Resistant S.aureus Complete 05/30/24 11:45 Pleural Fluid Gram Stain - Final Complete 05/30/24 11:45 Pleural Fluid Body Fluid Culture - Final Complete 05/29/24 12:15 Nose MRSA Screen - Final Complete 05/28/24 22:36 Urine - Catheterized Urine Culture - Final Enterobacter cloacae Escherichia coli Enterococcus faecalis - VRE Complete Problem List/Assessment/Plan Problem List/Assessment/Plan Acute kidney injury on chronic kidney disease stage 4 -> likely septic ATN needing HD Acute respiratory failure on vent Anemia suspected due to low blood loss s/p PRBC Hypernatremia Hypokalemia Metabolic acidosis Chronic urinary retention sepsis due to bacteremia recs Consider ID eval blood cultures positive consistently despite being on antibiotics HD today -via elvin Repeat blood cultures once negative for three days will consider tunneled cath Poor candidate for long-term dialysis, this was explained to patient's son however this time he wishes to pursue aggressive treatment Plan discussed with: Other My Orders My Orders Orders - SUKI MERINO MD Procedure Category Date Status Time Hemodialysis Orders ORDERS 06/05/24 Transmitted 04:00 Hemodialysis Orders ORDERS 06/05/24 Transmitted 08:21 Epoetin Calin-Epbx PHA 06/05/24 In Process (Retacrit) 21:00 Dietary Evaluation Review Comments: 1) If GI is assessible consider Jevity 1.2 @ 60 ml/hr x24 hrs goal rate as tolerated 2) If pt remains NPO >7 days consider TPN to meet at least 75% of estimated needs 3) Advance pt diet when medically feasible to a Cardiac/Renal Specific K2,2gmNA,low phos,60g Pro diet modified per SUPERVISOR HISTOLOGY recommendations 4) Continue current plan of care Expected Outcomes/Goals: 1) Pt to receive adequate nutrition support 2) Pt diet to advance CC Plasma Assessment Blood Product Administration S: [id number] SUKI MERINO MD Jun 05, 2024 11:25
--- NOTE | 2024-06-05 12:33 | DVHPN2 ---
Subjective Patient chemically sedated. Reviewed: Care Plan, H&P, Labs, Medications Changes from previous H/P or p: No Changes General: Per HPI Objective Vitals Vital Signs Date Time Temp Pulse Resp B/P (MAP) Pulse Ox O2 Delivery O2 Flow Rate FiO2 06/05/24 11:52 192/96 06/05/24 11:06 107 22 91 30 06/05/24 10:31 96.6 96.6 06/05/24 06:00 Mechanical Ventilator+ 06/03/24 10:00 Intake/Output Intake and Output 06/05/24 07:00 Intake Total 1216.23 ml Output Total 320 ml Balance 896.23 ml Intake Oral 120 ml IV Total 856.23 ml Tube Feeding 240 ml Output Urine Total 70 ml Stool Total 250 ml Exam Patient receiving hemodialysis. General Appearance: Other (Chemically sedated) HEENT: Atraumatic, PERRLA Lungs: Other (Mechanical ventilation) Cardiovascular: Normal S1, Normal S2 Abdomen: Normal bowel sounds, Soft, No tenderness Genitourinary: No Apparent Abnormalities (Peralta catheter) Musculoskeletal: Other (No motor movement) Extremities: No clubbing, No cyanosis Skin: Wounds (See nurse notes and pictures) Psych/Mental Status: Other (Unable to assess) Medications Current Medications Medications Dose Ordered Sig/[place] Route Start Time Stop Time Status Last Admin Dose Admin Midazolam HCl 50 ml @ 1 mls/hr Q24H IV 05/28/24 21:15 06/03/24 19:18 2 MLS/HR Albuterol 2.5 mg Q6HPRN PRN NEB 05/29/24 00:00 Fentanyl Citrate 250 ml @ 2.5 mls/hr Q24H IV 05/29/24 01:15 06/04/24 06:47 20 MLS/HR Pantoprazole Sodium 40 mg BID IV 05/29/24 22:00 06/05/24 12:27 40 MG Norepinephrine Bitartrate 250 ml @ 3.75 mls/hr Q24H IV 05/29/24 11:30 06/03/24 14:05 3.75 MLS/HR Enteral Nutritional Formula 1,000 ml 30ML/HR GT 05/30/24 11:00 Linezolid 300 ml @ 150 mls/hr Q12HR IV 05/31/24 10:00 06/05/24 12:27 150 MLS/HR Meropenem 50 ml @ 17 mls/hr DAILY IV 05/31/24 10:00 06/04/24 11:27 17 MLS/HR Metoprolol Tartrate 50 mg BID PO 06/02/24 10:45 06/04/24 21:54 50 MG Diagnostic Test (Pha) 1 strip Q6HR 06/02/24 12:00 06/05/24 11:52 1 STRIP Insulin Human Regular Q6HR SC 06/02/24 12:00 Dextrose 50 ml UD PRN IV 06/02/24 10:45 Hydralazine HCl 10 mg Q4HPRN PRN IV 06/03/24 15:15 06/05/24 11:52 10 MG Laboratory Results Laboratory Tests 06/05/24 03:09 Chemistry Test 06/05/24 03:09 Calcium Level 8.9 mg/dL (8.7-10.4) Urinalysis Test 05/28/24 22:36 05/30/24 04:30 Urine Color Dark-brown (Yellow) Urine Clarity Ex.turbid (Clear) Urine pH 6.0 (5.0-9.0) Urine Specific [place] 1.017 (1.001-1.035) Urine Protein 2+ (Negative) H Urine Ketones Trace (Negative) Urine Blood 1+ /uL (Negative) H Urine Nitrite Negative (Negative) Urine Bilirubin Negative (Negative) Urine Urobilinogen Normal mg/dL (Negative) Urine Leukocyte Esterase 3+ /uL (Negative) Urine RBC 56 /hpf (0 - 3) Urine WBC 3664 /hpf (0 - 3) Urine WBC Clumps Present /hpf (None Seen) Urine Squamous Epithelial Cells Many /hpf (<5) Urine Bacteria Mod /hpf (None Seen) H Urine Glucose Normal mg/dL (Normal) Urine Creatinine 33.57 mg/dL (30.0-125.0) Urine Sodium 85 mmol/L (40-220) Blood Gas Results Test 06/05/24 06:53 Arterial Blood pH 7.411 (7.350-7.450) FiO2 % 30.0 Microbiology Microbiology Date/Time Source Procedure Growth Status 06/02/24 22:27 Blood Blood Culture - Preliminary Resulted 05/30/24 11:45 Bronchial Washings Gram Stain - Final Complete 05/30/24 11:45 Respiratory Culture - Final Enterobacter cloacae Methicillin Resistant S.aureus Complete 05/30/24 11:45 Pleural Fluid Gram Stain - Final Complete 05/30/24 11:45 Pleural Fluid Body Fluid Culture - Final Complete 05/29/24 12:15 Nose MRSA Screen - Final Complete 05/28/24 22:36 Urine - Catheterized Urine Culture - Final Enterobacter cloacae Escherichia coli Enterococcus faecalis - VRE Complete Labs and/or images reviewed: Labs reviewed by me, Image(s) reviewed by me Assessment/Plan Assessment/Plan Impression: Acute metabolic encephalopathy due to uremia Sepsis due to UTI POA Y Severe anemia, HB 6 ? GI bleed FROYLAN on CKD stage 4, vasomotor mediated vs intrinsic NSTEMI type 2 due to demand ischemia Acute on chronic HFpEF Bilateral pleural effusion Anasarca Atrophic right kidney Cholelithiasis Hyperkalemia Metabolic acidosis Hypernatremia Hyperchloremia ? H/o hepatitis Decubitus ulcer POA Extensive metabolic surgical hardware in spine Plan: Events: Patient currently receiving HD. No issues with HD catheter. Hemoglobin 6.5. Patient has received 1 unit with HD. Spontaneous breathing trial post hemodialysis when patient was appropriate. -nephrology consultation: Patient was started on hemodialysis -continue current antibiotic coverage with meropenem and Zyvox. All MDRO does are sensitive to this treatment. -continue current ventilator settings : Per pulmonology -wound care consult -continue current sedation -continue tube feeding. Stop free water given correction of hypernatremia -pains to q.6 Accu-Cheks -repeat labs, chest x-ray, ABG in a.m. -poor prognosis Critical care time spent with patient discussing and formulating plan of care: 40 minutes. This does not include time spent performing procedures. This medical document was created using an electronic medical record system with [employer] dictation system. Although this document has been carefully reviewed, there may still be some phonetic and typographical errors. These areas are purely typographical due to imperfections of the software programs, and do not reflect any compromise in the patient's medical care. Plan discussed with: Patient, Other (RN) My Orders Orders - BREN NEVES NP Procedure Category Date Status Time Abg W/ Co-Ox RT 06/05/24 Logged 06:00 Date of Service: Jun 05, 2024 Billing Provider: BREN NEVES NP Common Visit Codes: [id number] CARE 30-74 MIN BREN NEVES NP Jun 05, 2024 12:33
[2024-06-05] MEDS: Nepro With Carb Steady 1 Liter Bottle GT SCH (18:57)
[2024-06-05 20:03] LABS: Potassium 3.2 mmol/L (3.5-5.1)
[2024-06-05 20:10] LABS: Magnesium 1.9 mg/dL (1.6-2.6)
[2024-06-05] MEDS: hydrALAZINE HCL 25 MG TAB PO SCH (21:05)
[2024-06-05] MEDS: EPOETIN ALFA-EPBX 10,000 UNIT/1ML VIAL IV ONE (21:06)
--- NOTE | 2024-06-05 21:32 | DVHPN2 ---
Progress Note - Dictate Date Seen: Jun 05, 2024 Medical Necessity Reason Pt with a Central, PICC or Fol: Yes The following are medically ne: Central Line, Rubio Catheter Reason for rubio catheter: Strict I&O Subjective Patient seen and examined at bedside. Sedated, intubated on mechanical ventilator. Overnight events reviewed. vital signs Vital Sign Date Time Temp Pulse Resp B/P (MAP) Pulse Ox O2 Delivery O2 Flow Rate FiO2 06/05/24 21:05 170/71 06/05/24 20:45 90 12 96 06/05/24 20:11 30 06/05/24 20:01 98.5 98.5 06/05/24 20:00 Mechanical Ventilator+ 06/03/24 10:00 Total Intake and Output 06/04/24 06/04/24 06/05/24 15:00 23:00 07:00 Intake Total 367.13 ml 520.0 ml 331.6 ml Output Total 150 ml 170 ml Balance 367.13 ml 370.0 ml 161.6 ml medications Current Medications Medications Dose Ordered Sig/[place] Route Start Time Stop Time Status Last Admin Dose Admin Midazolam HCl 50 ml @ 1 mls/hr Q24H IV 05/28/24 21:15 06/03/24 19:18 2 MLS/HR Albuterol 2.5 mg Q6HPRN PRN NEB 05/29/24 00:00 Fentanyl Citrate 250 ml @ 2.5 mls/hr Q24H IV 05/29/24 01:15 06/04/24 06:47 20 MLS/HR Pantoprazole Sodium 40 mg BID IV 05/29/24 22:00 06/05/24 12:27 40 MG Norepinephrine Bitartrate 250 ml @ 3.75 mls/hr Q24H IV 05/29/24 11:30 06/03/24 14:05 3.75 MLS/HR Enteral Nutritional Formula 1,000 ml 30ML/HR GT 05/30/24 11:00 06/05/24 18:57 1,000 ML Linezolid 300 ml @ 150 mls/hr Q12HR IV 05/31/24 10:00 06/05/24 12:27 150 MLS/HR Meropenem 50 ml @ 17 mls/hr DAILY IV 05/31/24 10:00 06/05/24 14:32 17 MLS/HR Metoprolol Tartrate 50 mg BID PO 06/02/24 10:45 06/05/24 12:46 50 MG Diagnostic Test (Pha) 1 strip Q6HR 06/02/24 12:00 06/05/24 17:40 1 STRIP Insulin Human Regular Q6HR SC 06/02/24 12:00 Dextrose 50 ml UD PRN IV 06/02/24 10:45 Hydralazine HCl 10 mg Q4HPRN PRN IV 06/03/24 15:15 06/05/24 15:30 10 MG Dexmedetomidine HCl 400 mcg/ Dextrose 100 ml @ 3.825 mls/ hr Q24H IV 06/05/24 15:30 06/05/24 18:56 3.825 MLS/HR Hydralazine HCl 25 mg Q8HR PO 06/05/24 22:00 06/05/24 21:05 25 MG objective Gen.: Patient lying in bed in medical ICU. Sedated, intubated on mechanical ventilator. Head: Normocephalic, atraumatic. Eyes: PERRLA. Ears: Normal external anatomy. Throat: Endotracheal tube and orogastric tube in place. Neck: Supple, trachea midline. Chest: Transmitted breath sounds bilaterally. Decreased air entry bilaterally. No wheezing. Bibasilar crackles. Cardiovascular: Positive S1, positive S2. Regular rate and rhythm. Abdomen: Positive bowel sounds in all 4 quadrants. Soft, nontender, nondistended. : Rubio in place. Normal external genitalia. Rectal: Deferred. Skin: Warm, dry. Intact. Extremities: 2+ radial pulses bilaterally. No lower extremity edema. Neuro: Sedated. laboratory and microbiology Laboratory Tests 06/05/24 18:08 06/05/24 03:09 Test 06/05/24 03:09 Range/Units Serum Glucose 101 74-106 mg/dL Assessment/Plan Impression: Acute hypoxic respiratory failure On mechanical ventilator Multifocal pneumonia Atelectasis Congestive heart failure Events: Remains on vent support On AC mode; RR 22, VT 500, PEEP 5, FiO2 of 30%. Sedated on Fentanyl. Off Versed Off pressors Awaiting for mentation to improve for CPAP. S/p hemodialysis this AM. Hydralazine PRN. Iron supplementation w/ Venofer Monitor hemoglobin Transfuse if less than 7.0 g/dL. Continue abx - Zyvox, meropenem. Tube feeds for nutritional support HD per Nephrology Monitor renal function Monitor electrolytes. Supplement as necessary. Potassium supplementation NTS PRN. S/p bronchoscopy with BAL on 06/02. See procedure note for full details. Rest of plan as noted below Plan: s/p intubation on mechanical ventilator. On AC mode; RR 22, VT 500, PEEP 5, FiO2 of 30%. ABG reviewed, notable for acidemia CXR reviewed, demonstrated e/o multifocal pneumonia, devices in place. Titrate FIO2 to keep O2 saturation above 90%. VAP bundle. Daily ABG and CXR while intubated Sedated for ventilator synchrony - on Fentanyl Off pressors. Antibiotics F/u cultures. Positive hepatitis C. IV fluids at 100 ml/hr Maintain euvolemia Monitor renal function Monitor electrolytes. Supplement as necessary. Monitor ins and outs. Tube feeds for nutritional support. GI prophylaxis. DVT prophylaxis. Prognosis: Poor given patient's multiple co-morbidities. Condition: Critical Rest of plan per hospitalist and other consultants. A total of 35 minutes of critical care time was spent reviewing the patient record, examining the patient, making a diagnostic and therapeutic plan, discussing this plan with the medical personnel, following up on diagnostic studies and following the patient for clinical stability excluding any and all procedures. At least 50% of this time was spent in direct, [id number] contact. Thank you Anthony Ugalde NP, for allowing me to participate in this patient's care. Further recommendations will depend on the patient's clinical course. Please do not hesitate to contact me if you have any questions or concerns. This medical document was created using an electronic medical record system with [employer] dictation system. Although these documentations are being carefully reviewed, there may still be some phonetic and typographical changes. The errors are purely typographical, due to imperfection on the software program, and do not reflect any compromise in the patient's medical care. Dietary Evaluation Review Comments: 1) If GI is assessible consider Jevity 1.2 @ 60 ml/hr x24 hrs goal rate as tolerated 2) If pt remains NPO >7 days consider TPN to meet at least 75% of estimated needs 3) Advance pt diet when medically feasible to a Cardiac/Renal Specific K2,2gmNA,low phos,60g Pro diet modified per INSURANCE AGENCY MANAGER recommendations 4) Continue current plan of care Expected Outcomes/Goals: 1) Pt to receive adequate nutrition support 2) Pt diet to advance Plan discussed with: Other (DORCAS Fraser) Critical Care Time(min): 35 CC Plasma Assessment Blood Product Administration S: [id number] ELIANE ALTAMIRANO MD Jun 05, 2024 21:32
[2024-06-06] VITALS (110 sets, daily range): BP systolic 139–195; BP diastolic 66–120; PULSE 74–104; RESP 16–29; TEMP 98–100.3; O2SAT 93–99
[2024-06-06 03:51] LABS: Basophils # (auto) 0 10 ^3/uL (0-0.2); Eosinophils # (auto) 0.1 10 ^3/uL (0-0.8); Hematocrit 22.1 % (41.0-53.0); Lymphocytes # (auto) 0.8 10 ^3/uL (0.4-5.4); Monocytes # (auto) 0.5 10 ^3/uL (0-1.3); Monocytes % (auto) 9.2 % (0.0-12.0)
[2024-06-06 03:55] LABS: Basophils % (auto) 0.2 % (0.0-2.0); Eosinophils % (auto) 1.8 % (0.0-7.0); Hemoglobin 7.5 g/dL (13.5-17.5); Mean Corpuscular Hemoglobin 31.5 pg (28.0-32.0); Mean Corpuscular Hgb Conc. 33.9 g/dL (32.0-36.0); Mean Corpuscular Volume 92.7 fL (80.0-100.0); Neutrophils # (auto) 4.1 10 ^3/uL (1.6-8.6); Neutrophils % (auto) 73.8 % (37.0-80.0); Nucleated Red Blood Cells % 0.1 %; Platelet Count (auto) 80 10^3/uL (140-450); Red Blood Cells 2.38 10^6/uL (4.5-5.90); White Blood Cell 5.6 10^3/uL (4.4-10.8)
[2024-06-06 03:58] LABS: Chloride 106 mmol/L (98-107); Potassium 3.5 mmol/L (3.5-5.1); Sodium 141 mmol/L (136-145)
[2024-06-06 03:59] LABS: Anion Gap 9 (5-15); Calcium 8.6 mg/dL (8.7-10.4); Carbon Dioxide 26 mmol/L (20-31)
[2024-06-06 04:04] LABS: BUN/Creatinine Ratio 11.7 (10.0-20.0); Glucose 96 mg/dL (74-106)
[2024-06-06 04:15] LABS: Blood Urea Nitrogen 50 mg/dL (9-23)
--- NOTE | 2024-06-06 04:40 | DVH ---
CHEST RADIOGRAPH Indication: pna Technique: Single frontal view of the chest was obtained Comparison: XY CHEST PORTABLE on DOS: 06/05/24 FINDINGS: Lines and Tubes: The endotracheal tube terminates 7.0 cm above the chacho. The enteric tube courses b elow the left hemidiaphragm and the tip extends outside the field of view. Right and left central joe ous catheter terminates in the superior vena cava. Lungs: Patchy bilateral opacities are similar to prior study. Pleura: Blunting of the left costophrenic sulcus may represent a small left pleural effusion. No pneumothorax. Cardiomediastinal contours: Stable cardiovascular silhouette. Bones: No acute osseous abnormality. IMPRESSION: 1. Support tubes as described. 2. Bilateral opacities which may reflect edema or pneumonia. 3. Left pleural effusion.
[2024-06-06 06:32] LABS: Base Excess -2.1 mmol/L (-2.0-3.0)
--- NOTE | 2024-06-06 08:56 | DVHPN2 ---
Subjective Patient chemically sedated. Reviewed: Care Plan, H&P, Labs, Medications Changes from previous H/P or p: No Changes General: Per HPI Objective Vitals Vital Signs Date Time Temp Pulse Resp B/P (MAP) Pulse Ox O2 Delivery O2 Flow Rate FiO2 06/06/24 08:03 85 170/77 06/06/24 07:25 22 96 30 06/06/24 06:00 Mechanical Ventilator+ 06/06/24 04:00 98.5 98.5 Intake/Output Intake and Output 06/06/24 07:00 Intake Total 1525.589 ml Output Total 260 ml Balance 1265.589 ml Intake Oral 110 ml IV Total 845.589 ml Tube Feeding 270 ml Blood Product 300 ml Output Urine Total 85 ml Stool Total 175 ml Exam Patient receiving hemodialysis. General Appearance: Other (Chemically sedated) HEENT: Atraumatic, PERRLA Lungs: Other (Mechanical ventilation) Cardiovascular: Normal S1, Normal S2 Abdomen: Normal bowel sounds, Soft, No tenderness Genitourinary: No Apparent Abnormalities (Peralta catheter) Musculoskeletal: Other (No motor movement) Extremities: No clubbing, No cyanosis Skin: Wounds (See nurse notes and pictures) Psych/Mental Status: Other (Unable to assess) Medications Current Medications Medications Dose Ordered Sig/[place] Route Start Time Stop Time Status Last Admin Dose Admin Midazolam HCl 50 ml @ 1 mls/hr Q24H IV 05/28/24 21:15 06/03/24 19:18 2 MLS/HR Albuterol 2.5 mg Q6HPRN PRN NEB 05/29/24 00:00 Fentanyl Citrate 250 ml @ 2.5 mls/hr Q24H IV 05/29/24 01:15 06/04/24 06:47 20 MLS/HR Pantoprazole Sodium 40 mg BID IV 05/29/24 22:00 06/06/24 08:02 40 MG Norepinephrine Bitartrate 250 ml @ 3.75 mls/hr Q24H IV 05/29/24 11:30 06/03/24 14:05 3.75 MLS/HR Enteral Nutritional Formula 1,000 ml 30ML/HR GT 05/30/24 11:00 06/05/24 18:57 1,000 ML Linezolid 300 ml @ 150 mls/hr Q12HR IV 05/31/24 10:00 06/06/24 08:03 150 MLS/HR Meropenem 50 ml @ 17 mls/hr DAILY IV 05/31/24 10:00 06/05/24 14:32 17 MLS/HR Metoprolol Tartrate 50 mg BID PO 06/02/24 10:45 06/06/24 08:03 50 MG Diagnostic Test (Pha) 1 strip Q6HR 06/02/24 12:00 06/06/24 05:42 1 STRIP Insulin Human Regular Q6HR SC 06/02/24 12:00 Dextrose 50 ml UD PRN IV 06/02/24 10:45 Hydralazine HCl 10 mg Q4HPRN PRN IV 06/03/24 15:15 06/05/24 15:30 10 MG Dexmedetomidine HCl 400 mcg/ Dextrose 100 ml @ 3.825 mls/ hr Q24H IV 06/05/24 15:30 06/06/24 07:39 5.738 MLS/HR Hydralazine HCl 50 mg Q8HR PO 06/06/24 14:00 Laboratory Results Laboratory Tests 06/06/24 03:15 Chemistry Test 06/05/24 18:08 06/06/24 03:15 Magnesium Level 1.9 mg/dL (1.6-2.6) Calcium Level 8.6 mg/dL (8.7-10.4) L Urinalysis Test 05/28/24 22:36 05/30/24 04:30 Urine Color Dark-brown (Yellow) Urine Clarity Ex.turbid (Clear) Urine pH 6.0 (5.0-9.0) Urine Specific [place] 1.017 (1.001-1.035) Urine Protein 2+ (Negative) H Urine Ketones Trace (Negative) Urine Blood 1+ /uL (Negative) H Urine Nitrite Negative (Negative) Urine Bilirubin Negative (Negative) Urine Urobilinogen Normal mg/dL (Negative) Urine Leukocyte Esterase 3+ /uL (Negative) Urine RBC 56 /hpf (0 - 3) Urine WBC 3664 /hpf (0 - 3) Urine WBC Clumps Present /hpf (None Seen) Urine Squamous Epithelial Cells Many /hpf (<5) Urine Bacteria Mod /hpf (None Seen) H Urine Glucose Normal mg/dL (Normal) Urine Creatinine 33.57 mg/dL (30.0-125.0) Urine Sodium 85 mmol/L (40-220) Blood Gas Results Test 06/06/24 06:17 Arterial Blood pH 7.467 (7.350-7.450) FiO2 % 30.0 Microbiology Microbiology Date/Time Source Procedure Growth Status 06/02/24 22:27 Blood Blood Culture - Preliminary Resulted 05/30/24 11:45 Bronchial Washings Gram Stain - Final Complete 05/30/24 11:45 Respiratory Culture - Final Enterobacter cloacae Methicillin Resistant S.aureus Complete 05/30/24 11:45 Pleural Fluid Gram Stain - Final Complete 05/30/24 11:45 Pleural Fluid Body Fluid Culture - Final Complete 05/29/24 12:15 Nose MRSA Screen - Final Complete 05/28/24 22:36 Urine - Catheterized Urine Culture - Final Enterobacter cloacae Escherichia coli Enterococcus faecalis - VRE Complete Labs and/or images reviewed: Labs reviewed by me, Image(s) reviewed by me Assessment/Plan Assessment/Plan Impression: Acute metabolic encephalopathy due to uremia Sepsis due to UTI POA Y Severe anemia, HB 6 ? GI bleed FROYLAN on CKD stage 4, vasomotor mediated vs intrinsic NSTEMI type 2 due to demand ischemia Acute on chronic HFpEF Bilateral pleural effusion Anasarca Atrophic right kidney Cholelithiasis Hyperkalemia Metabolic acidosis Hypernatremia Hyperchloremia ? H/o hepatitis Decubitus ulcer POA Extensive metabolic surgical hardware in spine Anemia, rule out GI bleed Plan: Events: Persistent hypertension. Increase hydralazine to 50 mg p.o. q.8 hours. Tolerated HD yesterday without any issues. Patient was still sedated, instructed primary nurse to stop Precedex until needed for agitation. Plans for spontaneous breathing trial today. Improvement with pain H&H after 1 unit PRBC. -nephrology consultation: Recommendations reviewed. -continue current antibiotic coverage with meropenem and Zyvox. All MDRO does are sensitive to this treatment. -continue current ventilator settings : Per pulmonology -wound care consult -continue current sedation -continue tube feeding. Stop free water given correction of hypernatremia -pains to q.6 Accu-Cheks -repeat labs, chest x-ray, ABG in a.m. -poor prognosis Critical care time spent with patient discussing and formulating plan of care: 40 minutes. This does not include time spent performing procedures. This medical document was created using an electronic medical record system with [employer] dictation system. Although this document has been carefully reviewed, there may still be some phonetic and typographical errors. These areas are purely typographical due to imperfections of the software programs, and do not reflect any compromise in the patient's medical care. Plan discussed with: Patient, Other (RN) My Orders Orders - BREN NEVES NP Procedure Category Date Status Time Abg W/ Co-Ox RT 06/06/24 Logged 05:38 Hydralazine Hcl PHA 06/06/24 In Process Tablet (Apresoline 14:00 Date of Service: Jun 06, 2024 Billing Provider: BREN NEVES NP Common Visit Codes: [id number] CARE 30-74 MIN BREN NEVES NP Jun 06, 2024 08:56
[2024-06-06] MEDS: hydrALAZINE HCL 25 MG TAB PO SCH (11:48)
--- NOTE | 2024-06-06 20:17 | DVHPN2 ---
Progress Note - Dictate Date Seen: Jun 06, 2024 Medical Necessity Reason Pt with a Central, PICC or Fol: Yes The following are medically ne: Central Line, Ruboi Catheter Reason for rubio catheter: Strict I&O Subjective Patient seen and examined at bedside. Intubated on mechanical ventilator. Overnight events reviewed. vital signs Vital Sign Date Time Temp Pulse Resp B/P (MAP) Pulse Ox O2 Delivery O2 Flow Rate FiO2 06/06/24 20:06 91 22 193/97 99 30 06/06/24 18:30 Mechanical Ventilator+ 06/06/24 16:00 100.3 100.3 Total Intake and Output 06/05/24 06/05/24 06/06/24 15:00 23:00 07:00 Intake Total 638.0 ml 252.863 ml 640.464 ml Output Total 0 ml 125 ml 135 ml Balance 638.0 ml 127.863 ml 505.464 ml medications Current Medications Medications Dose Ordered Sig/[place] Route Start Time Stop Time Status Last Admin Dose Admin Midazolam HCl 50 ml @ 1 mls/hr Q24H IV 05/28/24 21:15 06/03/24 19:18 2 MLS/HR Albuterol 2.5 mg Q6HPRN PRN NEB 05/29/24 00:00 Fentanyl Citrate 250 ml @ 2.5 mls/hr Q24H IV 05/29/24 01:15 06/04/24 06:47 20 MLS/HR Pantoprazole Sodium 40 mg BID IV 05/29/24 22:00 06/06/24 08:02 40 MG Norepinephrine Bitartrate 250 ml @ 3.75 mls/hr Q24H IV 05/29/24 11:30 06/03/24 14:05 3.75 MLS/HR Enteral Nutritional Formula 1,000 ml 30ML/HR GT 05/30/24 11:00 06/05/24 18:57 1,000 ML Linezolid 300 ml @ 150 mls/hr Q12HR IV 05/31/24 10:00 06/06/24 08:03 150 MLS/HR Meropenem 50 ml @ 17 mls/hr DAILY IV 05/31/24 10:00 06/06/24 09:29 17 MLS/HR Metoprolol Tartrate 50 mg BID PO 06/02/24 10:45 06/06/24 08:03 50 MG Diagnostic Test (Pha) 1 strip Q6HR 06/02/24 12:00 06/06/24 17:32 1 STRIP Insulin Human Regular Q6HR SC 06/02/24 12:00 Dextrose 50 ml UD PRN IV 06/02/24 10:45 Hydralazine HCl 10 mg Q4HPRN PRN IV 06/03/24 15:15 06/06/24 17:56 10 MG Dexmedetomidine HCl 400 mcg/ Dextrose 100 ml @ 3.825 mls/ hr Q24H IV 06/05/24 15:30 06/06/24 07:39 5.738 MLS/HR Hydralazine HCl 50 mg Q8HR PO 06/06/24 14:00 06/06/24 11:48 50 MG objective Gen.: Patient lying in bed in medical ICU. Intubated on mechanical ventilator. Head: Normocephalic, atraumatic. Eyes: PERRLA. Ears: Normal external anatomy. Throat: Endotracheal tube and orogastric tube in place. Neck: Supple, trachea midline. Chest: Transmitted breath sounds bilaterally. Decreased air entry bilaterally. No wheezing. Bibasilar crackles. Cardiovascular: Positive S1, positive S2. Regular rate and rhythm. Abdomen: Positive bowel sounds in all 4 quadrants. Soft, nontender, nondistended. : Rubio in place. Normal external genitalia. Rectal: Deferred. Skin: Warm, dry. Intact. Extremities: 2+ radial pulses bilaterally. No lower extremity edema. Neuro: Off sedation. laboratory and microbiology Laboratory Tests 06/06/24 03:15 Test 06/06/24 03:15 Range/Units Serum Glucose 96 74-106 mg/dL Assessment/Plan Impression: Acute hypoxic respiratory failure On mechanical ventilator Multifocal pneumonia Atelectasis Congestive heart failure Events: Remains on vent support On AC mode; RR 22, VT 500, PEEP 5, FiO2 of 30%. Off sedation Off pressors Obtain consent for therapeutic bronchoscopy to clear mucous plugs. Continue abx - Zyvox, meropenem. S/p hemodialysis yesterday. Hydralazine PRN. Monitor hemoglobin Tube feeds for nutritional support HD per Nephrology Monitor renal function Monitor electrolytes. Supplement as necessary. Nephrology recs appreciated. NTS PRN. Awaiting for mentation to improve for CPAP. S/p bronchoscopy with BAL on 06/02. See procedure note for full details. Rest of plan as noted below Plan: s/p intubation on mechanical ventilator. On AC mode; RR 22, VT 500, PEEP 5, FiO2 of 30%. ABG reviewed, notable for acidemia CXR reviewed, demonstrated e/o multifocal pneumonia, devices in place. Titrate FIO2 to keep O2 saturation above 90%. VAP bundle. Daily ABG and CXR while intubated Off sedation Off pressors. Antibiotics F/u cultures. Positive hepatitis C. IV fluids at 100 ml/hr Maintain euvolemia Monitor renal function Monitor electrolytes. Supplement as necessary. Monitor ins and outs. Tube feeds for nutritional support. GI prophylaxis. DVT prophylaxis. Prognosis: Poor given patient's multiple co-morbidities. Condition: Critical Rest of plan per hospitalist and other consultants. A total of 35 minutes of critical care time was spent reviewing the patient record, examining the patient, making a diagnostic and therapeutic plan, discussing this plan with the medical personnel, following up on diagnostic studies and following the patient for clinical stability excluding any and all procedures. At least 50% of this time was spent in direct, [id number] contact. Thank you Anthony Ugalde, JES, for allowing me to participate in this patient's care. Further recommendations will depend on the patient's clinical course. Please do not hesitate to contact me if you have any questions or concerns. This medical document was created using an electronic medical record system with [employer] dictation system. Although these documentations are being carefully reviewed, there may still be some phonetic and typographical changes. The errors are purely typographical, due to imperfection on the software program, and do not reflect any compromise in the patient's medical care. Dietary Evaluation Review Comments: 1) If GI is assessible consider Jevity 1.2 @ 60 ml/hr x24 hrs goal rate as tolerated 2) If pt remains NPO >7 days consider TPN to meet at least 75% of estimated needs 3) Advance pt diet when medically feasible to a Cardiac/Renal Specific K2,2gmNA,low phos,60g Pro diet modified per TELETYPE ADJUSTER recommendations 4) Continue current plan of care Expected Outcomes/Goals: 1) Pt to receive adequate nutrition support 2) Pt diet to advance Plan discussed with: Other (DORCAS Palmer) Critical Care Time(min): 35 CC Plasma Assessment Blood Product Administration S: [id number] ELIANE ALTAMIRANO MD Jun 06, 2024 20:16
[2024-06-07] VITALS (109 sets, daily range): BP systolic 124–190; BP diastolic 62–114; PULSE 64–92; RESP 17–26; TEMP 97.5–99.5; O2SAT 94–100
[2024-06-07 04:22] LABS: Basophils # (auto) 0 10 ^3/uL (0-0.2); Eosinophils # (auto) 0.1 10 ^3/uL (0-0.8); Hemoglobin 7.9 g/dL (13.5-17.5); Neutrophils # (auto) 4.7 10 ^3/uL (1.6-8.6); Nucleated Red Blood Cells % 0.1 %; White Blood Cell 6.3 10^3/uL (4.4-10.8)
[2024-06-07 04:24] LABS: Basophils % (auto) 0.3 % (0.0-2.0); Eosinophils % (auto) 1.5 % (0.0-7.0); Hematocrit 23.1 % (41.0-53.0); Lymphocytes % (auto) 15.4 % (10.0-50.0); Mean Corpuscular Hemoglobin 31.7 pg (28.0-32.0); Mean Corpuscular Hgb Conc. 34.2 g/dL (32.0-36.0); Mean Corpuscular Volume 92.7 fL (80.0-100.0); Monocytes # (auto) 0.6 10 ^3/uL (0-1.3); Monocytes % (auto) 8.8 % (0.0-12.0); Platelet Count (auto) 86 10^3/uL (140-450); Red Blood Cells 2.49 10^6/uL (4.5-5.90); Red Cell Distribution Width 15.6 % (11.8-14.3)
[2024-06-07 04:29] LABS: Chloride 104 mmol/L (98-107); Potassium 3.4 mmol/L (3.5-5.1); Sodium 139 mmol/L (136-145)
[2024-06-07 04:30] LABS: Anion Gap 10 (5-15); Carbon Dioxide 25 mmol/L (20-31)
[2024-06-07 04:31] LABS: Calcium 8.9 mg/dL (8.7-10.4)
[2024-06-07 04:35] LABS: Glucose 84 mg/dL (74-106)
[2024-06-07 04:36] LABS: BUN/Creatinine Ratio 10.8 (10.0-20.0); Blood Urea Nitrogen 55 mg/dL (9-23)
--- NOTE | 2024-06-07 06:08 | DVH ---
CHEST RADIOGRAPH Indication: pna Technique: Single frontal view of the chest was obtained Comparison: XY CHEST PORTABLE on DOS: 06/06/24, XY CHEST PORTABLE on DOS: 06/05/24, XY CHEST PORTABLE on DOS: 06/04/24 IMPRESSION: Stable enlarged cardiac silhouette with stable and satisfactory positioning of support lines and tube s. Small left pleural effusion. No discrete pneumothorax. Mild pulmonary vascular congestion, simila r to prior examination. The aortic knob appears slightly more prominent, potentially related to rotation. Attention on follow -up is recommended.
[2024-06-07 08:22] LABS: Base Excess -0.7 mmol/L (-2.0-3.0)
[2024-06-07] MEDS ORDERED: HEPARIN SODIUM (PORCINE) 5000 UNITS/ML 1ML VIAL IV PRN (09:00)
[2024-06-07] MEDS ORDERED: HEPARIN SODIUM (PORCINE) 5000 UNITS/ML 1ML VIAL IV SCH (09:00)
--- NOTE | 2024-06-07 12:24 | DVHPN2 ---
Progress Note - Dictate Date Seen: Jun 07, 2024 Medical Necessity Reason Pt with a Central, PICC or Fol: Yes The following are medically ne: Central Line, Rubio Catheter Reason for rubio catheter: Strict I&O Subjective Patient tolerated 3 L of UF with dialysis today vital signs Vital Sign Date Time Temp Pulse Resp B/P (MAP) Pulse Ox O2 Delivery O2 Flow Rate FiO2 06/07/24 11:51 75 26 150/92 (111) 97 30 06/07/24 10:00 Mechanical Ventilator+ 06/07/24 08:00 99.5 99.5 Total Intake and Output 06/06/24 06/06/24 06/07/24 15:00 23:00 07:00 Intake Total 355.738 ml 86.775 ml 566.775 ml Output Total 0 ml 125 ml 50 ml Balance 355.738 ml -38.225 ml 516.775 ml medications Current Medications Medications Dose Ordered Sig/[place] Route Start Time Stop Time Status Last Admin Dose Admin Midazolam HCl 50 ml @ 1 mls/hr Q24H IV 05/28/24 21:15 06/03/24 19:18 2 MLS/HR Albuterol 2.5 mg Q6HPRN PRN NEB 05/29/24 00:00 Fentanyl Citrate 250 ml @ 2.5 mls/hr Q24H IV 05/29/24 01:15 06/04/24 06:47 20 MLS/HR Pantoprazole Sodium 40 mg BID IV 05/29/24 22:00 06/07/24 10:29 40 MG Norepinephrine Bitartrate 250 ml @ 3.75 mls/hr Q24H IV 05/29/24 11:30 06/03/24 14:05 3.75 MLS/HR Enteral Nutritional Formula 1,000 ml 30ML/HR GT 05/30/24 11:00 06/05/24 18:57 1,000 ML Linezolid 300 ml @ 150 mls/hr Q12HR IV 05/31/24 10:00 06/07/24 10:29 150 MLS/HR Meropenem 50 ml @ 17 mls/hr DAILY IV 05/31/24 10:00 06/07/24 10:29 17 MLS/HR Metoprolol Tartrate 50 mg BID PO 06/02/24 10:45 06/07/24 10:30 50 MG Diagnostic Test (Pha) 1 strip Q6HR 06/02/24 12:00 06/07/24 11:32 1 STRIP Insulin Human Regular Q6HR SC 06/02/24 12:00 Dextrose 50 ml UD PRN IV 06/02/24 10:45 Hydralazine HCl 10 mg Q4HPRN PRN IV 06/03/24 15:15 06/06/24 17:56 10 MG Dexmedetomidine HCl 400 mcg/ Dextrose 100 ml @ 3.825 mls/ hr Q24H IV 06/05/24 15:30 06/07/24 11:56 5.738 MLS/HR Heparin Sodium (Porcine) 4,000 units PRN PRN IV 06/07/24 09:00 Hydralazine HCl 100 mg Q8HR PO 06/07/24 14:00 objective Gen: nad, intubated heent: nc/at, mmm lungs: Occasional coarse breath sounds cvs: no rub ext: no edema laboratory and microbiology Laboratory Tests 06/07/24 03:15 Test 06/07/24 03:15 Range/Units Serum Glucose 84 74-106 mg/dL Assessment/Plan Acute kidney injury on chronic kidney disease stage 4 -> likely septic ATN needing HD Acute respiratory failure on vent Anemia suspected due to low blood loss s/p PRBC Hypernatremia Hypokalemia Metabolic acidosis Chronic urinary retention sepsis due to bacteremia recs - tolerated dialysis, 3 L of UF today - daily basic chemistry panel - we will continue to follow closely Dietary Evaluation Review Comments: 1) If GI is assessible consider Jevity 1.2 @ 60 ml/hr x24 hrs goal rate as tolerated 2) If pt remains NPO >7 days consider TPN to meet at least 75% of estimated needs 3) Advance pt diet when medically feasible to a Cardiac/Renal Specific K2,2gmNA,low phos,60g Pro diet modified per BOW REPAIRER [employer]USTOM recommendations 4) Continue current plan of care Expected Outcomes/Goals: 1) Pt to receive adequate nutrition support 2) Pt diet to advance Plan discussed with: Other CC Plasma Assessment Blood Product Administration S: [id number] SHANEL HOOK MD Jun 07, 2024 12:24
[2024-06-07] MEDS: hydrALAZINE HCL 25 MG TAB PO SCH (14:15)
--- NOTE | 2024-06-07 14:57 | DVHPN2 ---
Assessment/Plan Assessment/Plan ICU progress note Subjective 68-year-old male admitted for altered mental status, intubated, mechanically ventilated, on hemodialysis with left IJ HD cath. No change in mental status Objective Physical exam Intubated, mechanically ventilated PERRLA No JVD Mechanical sounds bilaterally S1-S2 regular rate and rhythm no murmur Abdomen soft nontender, no organomegaly No lower extremity edema Assessment and plan Acute metabolic encephalopathy due to uremia Sepsis due to UTI POA Y Severe anemia, HB 6 ? GI bleed FROYLAN on CKD stage 4, vasomotor mediated vs intrinsic NSTEMI type 2 due to demand ischemia Acute on chronic HFpEF Bilateral pleural effusion Anasarca Atrophic right kidney Cholelithiasis Hyperkalemia Metabolic acidosis Hypernatremia Hyperchloremia ? H/o hepatitis Decubitus ulcer POA Extensive metabolic surgical hardware in spine Anemia, rule out GI bleed Hemodialysis today, pull 3 L, persistent hypertension, slightly improved during dialysis, increase hydralazine to 100 p.o. Q 8, no improvement in mental status, we will continue with SBT/SAT nephrology consultation: Recommendations reviewed. continue current antibiotic coverage with meropenem and Zyvox. All MDRO does are sensitive to this treatment. continue current ventilator settings : Per pulmonology wound care consult continue current sedation continue tube feeding. Stop free water given correction of hypernatremia pains to q.6 Accu-Cheks repeat labs, chest x-ray, ABG in a.m. poor prognosis Lines HD cath L IJ Maintain potassium of 4, phosphate of 3 and magnesium of 2 Diet tube feeding GI prophylaxis IV PPI DVT prophylaxis scd 89 critical care time spent on this patient including evaluation, chart review, formulating plan and communication with team, excluding any procedures or point of care imaging Plan discussed with: Other My Orders Orders - CARLENE OSUNA MD Procedure Category Date Status Time Hydralazine Hcl PHA 06/07/24 In Process Tablet (Apresoline 14:00 Date of Service: Jun 07, 2024 Billing Provider: CARLENE OSUNA MD Common Visit Codes: [id number] INP/OBS CARE(HIGH), [id number] CARE 30-74 MIN, [id number] CARE-EACH +30MIN CARLENE OSUNA MD Jun 07, 2024 14:57
--- NOTE | 2024-06-07 20:28 | DVHPN2 ---
Progress Note - Dictate Date Seen: Jun 07, 2024 Medical Necessity Reason Pt with a Central, PICC or Fol: Yes The following are medically ne: Central Line, Rubio Catheter Reason for rubio catheter: Strict I&O Subjective Patient seen and examined at bedside. Intubated on mechanical ventilator. Overnight events reviewed. vital signs Vital Sign Date Time Temp Pulse Resp B/P (MAP) Pulse Ox O2 Delivery O2 Flow Rate FiO2 06/07/24 20:15 70 22 168/80 (109) 97 06/07/24 20:07 30 06/07/24 20:00 Mechanical Ventilator+ 06/07/24 20:00 98.7 98.7 Total Intake and Output 06/06/24 06/06/24 06/07/24 15:00 23:00 07:00 Intake Total 355.738 ml 86.775 ml 570.600 ml Output Total 0 ml 125 ml 50 ml Balance 355.738 ml -38.225 ml 520.600 ml medications Current Medications Medications Dose Ordered Sig/[place] Route Start Time Stop Time Status Last Admin Dose Admin Midazolam HCl 50 ml @ 1 mls/hr Q24H IV 05/28/24 21:15 06/03/24 19:18 2 MLS/HR Albuterol 2.5 mg Q6HPRN PRN NEB 05/29/24 00:00 Fentanyl Citrate 250 ml @ 2.5 mls/hr Q24H IV 05/29/24 01:15 06/04/24 06:47 20 MLS/HR Pantoprazole Sodium 40 mg BID IV 05/29/24 22:00 06/07/24 10:29 40 MG Norepinephrine Bitartrate 250 ml @ 3.75 mls/hr Q24H IV 05/29/24 11:30 06/03/24 14:05 3.75 MLS/HR Enteral Nutritional Formula 1,000 ml 30ML/HR GT 05/30/24 11:00 06/05/24 18:57 1,000 ML Linezolid 300 ml @ 150 mls/hr Q12HR IV 05/31/24 10:00 06/07/24 10:29 150 MLS/HR Meropenem 50 ml @ 17 mls/hr DAILY IV 05/31/24 10:00 06/07/24 10:29 17 MLS/HR Metoprolol Tartrate 50 mg BID PO 06/02/24 10:45 06/07/24 10:30 50 MG Diagnostic Test (Pha) 1 strip Q6HR 06/02/24 12:00 06/07/24 16:30 1 STRIP Insulin Human Regular Q6HR SC 06/02/24 12:00 Dextrose 50 ml UD PRN IV 06/02/24 10:45 Hydralazine HCl 10 mg Q4HPRN PRN IV 06/03/24 15:15 06/06/24 17:56 10 MG Dexmedetomidine HCl 400 mcg/ Dextrose 100 ml @ 3.825 mls/ hr Q24H IV 06/05/24 15:30 06/07/24 11:56 5.738 MLS/HR Heparin Sodium (Porcine) 4,000 units PRN PRN IV 06/07/24 09:00 Hydralazine HCl 100 mg Q8HR PO 06/07/24 14:00 06/07/24 14:15 100 MG objective Gen.: Patient lying in bed in medical ICU. Intubated on mechanical ventilator. Head: Normocephalic, atraumatic. Eyes: PERRLA. Ears: Normal external anatomy. Throat: Endotracheal tube and orogastric tube in place. Neck: Supple, trachea midline. Chest: Transmitted breath sounds bilaterally. Decreased air entry bilaterally. No wheezing. Bibasilar crackles. Cardiovascular: Positive S1, positive S2. Regular rate and rhythm. Abdomen: Positive bowel sounds in all 4 quadrants. Soft, nontender, nondistended. : Rubio in place. Normal external genitalia. Rectal: Deferred. Skin: Warm, dry. Intact. Extremities: 2+ radial pulses bilaterally. No lower extremity edema. Neuro: Off sedation. laboratory and microbiology Laboratory Tests 06/07/24 03:15 Test 06/07/24 03:15 Range/Units Serum Glucose 84 74-106 mg/dL Assessment/Plan Impression: Acute hypoxic respiratory failure On mechanical ventilator Multifocal pneumonia Atelectasis Congestive heart failure Events: Remains on vent support On AC mode; RR 22, VT 500, PEEP 5, FiO2 of 30%. Off sedation On Precedex drip. Off pressors Plan for therapeutic bronchoscopy to clear mucous plugs. Pt underwent hemodialysis today with removal of 3 liters. Continue abx - Zyvox, meropenem. Hydralazine PRN. Monitor hemoglobin Tube feeds for nutritional support HD per Nephrology Monitor renal function Monitor electrolytes. Supplement as necessary. Nephrology recs appreciated. NTS PRN. Awaiting for mentation to improve for CPAP. S/p bronchoscopy with BAL on 06/02. See procedure note for full details. Rest of plan as noted below Plan: s/p intubation on mechanical ventilator. On AC mode; RR 22, VT 500, PEEP 5, FiO2 of 30%. ABG reviewed, notable for acidemia CXR reviewed, demonstrated e/o multifocal pneumonia, devices in place. Titrate FIO2 to keep O2 saturation above 90%. VAP bundle. Daily ABG and CXR while intubated Off sedation Off pressors. Antibiotics F/u cultures. Positive hepatitis C. IV fluids at 100 ml/hr Maintain euvolemia Monitor renal function Monitor electrolytes. Supplement as necessary. Monitor ins and outs. Tube feeds for nutritional support. GI prophylaxis. DVT prophylaxis. Prognosis: Poor given patient's multiple co-morbidities. Condition: Critical Rest of plan per hospitalist and other consultants. A total of 35 minutes of critical care time was spent reviewing the patient record, examining the patient, making a diagnostic and therapeutic plan, discussing this plan with the medical personnel, following up on diagnostic studies and following the patient for clinical stability excluding any and all procedures. At least 50% of this time was spent in direct, [id number] contact. Thank you Anthony Ugalde NP, for allowing me to participate in this patient's care. Further recommendations will depend on the patient's clinical course. Please do not hesitate to contact me if you have any questions or concerns. This medical document was created using an electronic medical record system with [employer] dictation system. Although these documentations are being carefully reviewed, there may still be some phonetic and typographical changes. The errors are purely typographical, due to imperfection on the software program, and do not reflect any compromise in the patient's medical care. Dietary Evaluation Review Comments: 1) If GI is assessible consider Jevity 1.2 @ 60 ml/hr x24 hrs goal rate as tolerated 2) If pt remains NPO >7 days consider TPN to meet at least 75% of estimated needs 3) Advance pt diet when medically feasible to a Cardiac/Renal Specific K2,2gmNA,low phos,60g Pro diet modified per IRON MELTER recommendations 4) Continue current plan of care Expected Outcomes/Goals: 1) Pt to receive adequate nutrition support 2) Pt diet to advance Plan discussed with: Other (DORCAS Palmer) Critical Care Time(min): 35 CC Plasma Assessment Blood Product Administration S: [id number] ELIANE ALTAMIRANO MD Jun 07, 2024 20:28
[2024-06-08] VITALS (108 sets, daily range): BP systolic 97–179; BP diastolic 53–86; PULSE 65–95; RESP 12–22; TEMP 98.1–99.7; O2SAT 89–100
[2024-06-08 03:39] LABS: Basophils # (auto) 0 10 ^3/uL (0-0.2); Basophils % (auto) 0.4 % (0.0-2.0); Eosinophils # (auto) 0.2 10 ^3/uL (0-0.8); Eosinophils % (auto) 3.3 % (0.0-7.0); Hematocrit 24.4 % (41.0-53.0); Hemoglobin 8.1 g/dL (13.5-17.5); Lymphocytes # (auto) 0.9 10 ^3/uL (0.4-5.4); Lymphocytes % (auto) 14.4 % (10.0-50.0); Mean Corpuscular Hgb Conc. 33.2 g/dL (32.0-36.0); Mean Corpuscular Volume 93.2 fL (80.0-100.0); Monocytes # (auto) 0.5 10 ^3/uL (0-1.3); Monocytes % (auto) 8.3 % (0.0-12.0); Neutrophils # (auto) 4.8 10 ^3/uL (1.6-8.6); Neutrophils % (auto) 73.6 % (37.0-80.0); Nucleated Red Blood Cells % 0.1 %; Platelet Count (auto) 89 10^3/uL (140-450); Red Blood Cells 2.62 10^6/uL (4.5-5.90); Red Cell Distribution Width 15.8 % (11.8-14.3); White Blood Cell 6.5 10^3/uL (4.4-10.8)
[2024-06-08 03:58] LABS: Alanine Aminotransferase 13 U/L (7-40); Alkaline Phosphatase 94 U/L (46-116); Anion Gap 9 (5-15); Aspartate Aminotransferase 37 U/L (13-40); BUN/Creatinine Ratio 9.1 (10.0-20.0); Calcium 8.6 mg/dL (8.7-10.4); Carbon Dioxide 25 mmol/L (20-31); Chloride 104 mmol/L (98-107); Glucose 85 mg/dL (74-106); Potassium 2.9 mmol/L (3.5-5.1); Sodium 138 mmol/L (136-145)
[2024-06-08 03:59] LABS: Albumin 2.3 g/dL (3.2-4.8); Bilirubin, Total < 0.2 mg/dL (0.2-1.0); Total Protein 5.7 g/dL (5.7-8.2)
[2024-06-08 04:20] LABS: Blood Urea Nitrogen 36 mg/dL (9-23)
--- NOTE | 2024-06-08 05:27 | DVH ---
CHEST RADIOGRAPH Indication: INTUBATED Technique: Single frontal view of the chest was obtained COMPARISON: XY CHEST PORTABLE on DOS: 06/07/24, XY CHEST PORTABLE on DOS: 06/06/24, XY CHEST PORTABLE on DOS: 06/05/24 FINDINGS: Lines and Tubes: Endotracheal tube, enteric catheter, right and left central venous catheter is in sa tisfactory position. Lungs: Unchanged congestion Pleura: No effusion. No pneumothorax. Cardiomediastinal contours: Unremarkable Bones: Unremarkable IMPRESSION: Lines and tubes in satisfactory position. No significant interval change.
[2024-06-08] MEDS: ALBUTEROL SULF 2.5 MG/0.5ML(0.5%) NEB SOLN NEB PRN (06:28)
[2024-06-08 07:18] LABS: Base Excess 1.9 mmol/L (-2.0-3.0)
--- NOTE | 2024-06-08 14:43 | DVHPN2 ---
Progress Note - Dictate Date Seen: Jun 08, 2024 Medical Necessity Reason Pt with a Central, PICC or Fol: Yes The following are medically ne: Central Line, Rubio Catheter Reason for rubio catheter: Strict I&O Subjective Remains intubated, moving spontaneously. vital signs Vital Sign Date Time Temp Pulse Resp B/P (MAP) Pulse Ox O2 Delivery O2 Flow Rate FiO2 06/08/24 14:15 78 13 140/68 (92) 96 06/08/24 14:00 30 06/08/24 14:00 Mechanical Ventilator+ 06/08/24 12:00 98.3 98.3 Total Intake and Output 06/07/24 06/07/24 06/08/24 15:00 23:00 07:00 Intake Total 380.600 ml 540.600 ml 380.600 ml Output Total 0 ml 3150 ml 250 ml Balance 380.600 ml -2609.400 ml 130.600 ml medications Current Medications Medications Dose Ordered Sig/[place] Route Start Time Stop Time Status Last Admin Dose Admin Midazolam HCl 50 ml @ 1 mls/hr Q24H IV 05/28/24 21:15 06/03/24 19:18 2 MLS/HR Albuterol 2.5 mg Q6HPRN PRN NEB 05/29/24 00:00 06/08/24 06:28 2.5 MG Fentanyl Citrate 250 ml @ 2.5 mls/hr Q24H IV 05/29/24 01:15 06/04/24 06:47 20 MLS/HR Pantoprazole Sodium 40 mg BID IV 05/29/24 22:00 06/08/24 07:23 40 MG Norepinephrine Bitartrate 250 ml @ 3.75 mls/hr Q24H IV 05/29/24 11:30 06/03/24 14:05 3.75 MLS/HR Enteral Nutritional Formula 1,000 ml 30ML/HR GT 05/30/24 11:00 06/05/24 18:57 1,000 ML Linezolid 300 ml @ 150 mls/hr Q12HR IV 05/31/24 10:00 06/08/24 07:23 150 MLS/HR Metoprolol Tartrate 50 mg BID PO 06/02/24 10:45 06/08/24 08:53 50 MG Diagnostic Test (Pha) 1 strip Q6HR 06/02/24 12:00 06/08/24 10:42 1 STRIP Insulin Human Regular Q6HR SC 06/02/24 12:00 Dextrose 50 ml UD PRN IV 06/02/24 10:45 Hydralazine HCl 10 mg Q4HPRN PRN IV 06/03/24 15:15 06/06/24 17:56 10 MG Dexmedetomidine HCl 400 mcg/ Dextrose 100 ml @ 3.825 mls/ hr Q24H IV 06/05/24 15:30 06/08/24 08:53 3.825 MLS/HR Heparin Sodium (Porcine) 4,000 units PRN PRN IV 06/07/24 09:00 Hydralazine HCl 100 mg Q8HR PO 06/07/24 14:00 06/08/24 13:18 100 MG Meropenem 50 ml @ 17 mls/hr Q12H IV 06/08/24 19:00 objective Gen: nad, intubated heent: nc/at, mmm lungs: Occasional coarse breath sounds cvs: no rub ext: no edema laboratory and microbiology Laboratory Tests 06/08/24 03:10 Test 06/08/24 03:10 Range/Units Serum Glucose 85 74-106 mg/dL Assessment/Plan Acute kidney injury on chronic kidney disease stage 4 -> likely septic ATN needing HD Acute respiratory failure on vent Anemia suspected due to low blood loss s/p PRBC Hypernatremia Hypokalemia Metabolic acidosis Chronic urinary retention sepsis due to bacteremia recs - supplemental potassium - We will continue to evaluate daily for dialysis needs Dietary Evaluation Review Comments: 1) If GI is assessible consider Jevity 1.2 @ 60 ml/hr x24 hrs goal rate as tolerated 2) If pt remains NPO >7 days consider TPN to meet at least 75% of estimated needs 3) Advance pt diet when medically feasible to a Cardiac/Renal Specific K2,2gmNA,low phos,60g Pro diet modified per TYRE FITTER recommendations 4) Continue current plan of care Expected Outcomes/Goals: 1) Pt to receive adequate nutrition support 2) Pt diet to advance Plan discussed with: Other CC Plasma Assessment Blood Product Administration S: [id number] SHANEL HOOK MD Jun 08, 2024 14:43
--- NOTE | 2024-06-08 17:30 | DVHPN2 ---
Assessment/Plan Assessment/Plan ICU progress note Subjective 68-year-old male admitted for altered mental status, intubated, mechanically ventilated, on hemodialysis with left IJ HD cath. No change in mental status Patient seen by me today during rounds No change in mental status, not responsive. hypokalemia will not replete, patient on serina HD. otherwise status quo. c/w SBT Objective Physical exam Intubated, mechanically ventilated PERRLA No JVD Mechanical sounds bilaterally S1-S2 regular rate and rhythm no murmur Abdomen soft nontender, no organomegaly No lower extremity edema Assessment and plan Acute metabolic encephalopathy due to uremia Sepsis due to UTI POA Y Severe anemia, HB 6 ? GI bleed FROYLAN on CKD stage 4, vasomotor mediated vs intrinsic NSTEMI type 2 due to demand ischemia Acute on chronic HFpEF Bilateral pleural effusion Anasarca Atrophic right kidney Cholelithiasis Hyperkalemia Metabolic acidosis Hypernatremia Hyperchloremia ? H/o hepatitis Decubitus ulcer POA Extensive metabolic surgical hardware in spine Anemia, rule out GI bleed Hemodialysis today, pull 3 L, persistent hypertension, slightly improved during dialysis, increase hydralazine to 100 p.o. Q 8, no improvement in mental status, we will continue with SBT/SAT nephrology consultation: Recommendations reviewed. continue current antibiotic coverage with meropenem and Zyvox. All MDRO does are sensitive to this treatment. continue current ventilator settings : Per pulmonology wound care consult continue current sedation continue tube feeding. Stop free water given correction of hypernatremia pains to q.6 Accu-Cheks repeat labs, chest x-ray, ABG in a.m. poor prognosis daily SBT Lines HD cath L IJ Maintain potassium of 4, phosphate of 3 and magnesium of 2 Diet tube feeding GI prophylaxis IV PPI DVT prophylaxis scd 82 critical care time spent on this patient including evaluation, chart review, formulating plan and communication with team, excluding any procedures or point of care imaging Plan discussed with: Other Date of Service: Jun 08, 2024 Billing Provider: CARLENE OSUNA MD Common Visit Codes: [id number] INP/OBS CARE(HIGH), [id number] CARE 30-74 MIN, [id number] CARE-EACH +30MIN CARLENE OSUNA MD Jun 08, 2024 17:30
[2024-06-08] MEDS: MEROPENEM 500MG IVPB 50 ML IV SCH (18:01)
[2024-06-08] MEDS: POTASSIUM CHL 20MEQ/100ML 100 ML IV SCH (19:47)
--- NOTE | 2024-06-08 20:45 | DVHPN2 ---
Progress Note - Dictate Date Seen: Jun 08, 2024 Medical Necessity Reason Pt with a Central, PICC or Fol: Yes The following are medically ne: Central Line, Rubio Catheter Reason for rubio catheter: Strict I&O Subjective Patient seen and examined at bedside. Sedated, intubated on mechanical ventilator. Overnight events reviewed. vital signs Vital Sign Date Time Temp Pulse Resp B/P (MAP) Pulse Ox O2 Delivery O2 Flow Rate FiO2 06/08/24 20:16 73 18 156/77 (103) 97 30 06/08/24 20:00 Mechanical Ventilator+ 06/08/24 16:00 98.7 98.7 Total Intake and Output 06/07/24 06/07/24 06/08/24 15:00 23:00 07:00 Intake Total 380.600 ml 540.600 ml 380.600 ml Output Total 0 ml 3150 ml 250 ml Balance 380.600 ml -2609.400 ml 130.600 ml medications Current Medications Medications Dose Ordered Sig/[place] Route Start Time Stop Time Status Last Admin Dose Admin Midazolam HCl 50 ml @ 1 mls/hr Q24H IV 05/28/24 21:15 06/03/24 19:18 2 MLS/HR Albuterol 2.5 mg Q6HPRN PRN NEB 05/29/24 00:00 06/08/24 16:00 2.5 MG Fentanyl Citrate 250 ml @ 2.5 mls/hr Q24H IV 05/29/24 01:15 06/04/24 06:47 20 MLS/HR Pantoprazole Sodium 40 mg BID IV 05/29/24 22:00 06/08/24 07:23 40 MG Norepinephrine Bitartrate 250 ml @ 3.75 mls/hr Q24H IV 05/29/24 11:30 06/03/24 14:05 3.75 MLS/HR Enteral Nutritional Formula 1,000 ml 30ML/HR GT 05/30/24 11:00 06/05/24 18:57 1,000 ML Linezolid 300 ml @ 150 mls/hr Q12HR IV 05/31/24 10:00 06/08/24 07:23 150 MLS/HR Metoprolol Tartrate 50 mg BID PO 06/02/24 10:45 06/08/24 08:53 50 MG Diagnostic Test (Pha) 1 strip Q6HR 06/02/24 12:00 06/08/24 16:40 1 STRIP Insulin Human Regular Q6HR SC 06/02/24 12:00 Dextrose 50 ml UD PRN IV 06/02/24 10:45 Hydralazine HCl 10 mg Q4HPRN PRN IV 06/03/24 15:15 06/06/24 17:56 10 MG Dexmedetomidine HCl 400 mcg/ Dextrose 100 ml @ 3.825 mls/ hr Q24H IV 06/05/24 15:30 06/08/24 08:53 3.825 MLS/HR Heparin Sodium (Porcine) 4,000 units PRN PRN IV 06/07/24 09:00 Hydralazine HCl 100 mg Q8HR PO 06/07/24 14:00 06/08/24 13:18 100 MG Meropenem 50 ml @ 17 mls/hr Q12H IV 06/08/24 19:00 06/08/24 18:01 17 MLS/HR Potassium Chloride 100 ml @ 50 mls/hr Q2H IV 06/08/24 19:45 06/08/24 23:44 06/08/24 19:47 50 MLS/HR objective Gen.: Patient lying in bed in medical ICU. Sedated, intubated on mechanical ventilator. Head: Normocephalic, atraumatic. Eyes: PERRLA. Ears: Normal external anatomy. Throat: Endotracheal tube and orogastric tube in place. Neck: Supple, trachea midline. Chest: Transmitted breath sounds bilaterally. Decreased air entry bilaterally. No wheezing. Bibasilar crackles. Cardiovascular: Positive S1, positive S2. Regular rate and rhythm. Abdomen: Positive bowel sounds in all 4 quadrants. Soft, nontender, nondistended. : Rubio in place. Normal external genitalia. Rectal: Deferred. Skin: Warm, dry. Intact. Extremities: 2+ radial pulses bilaterally. No lower extremity edema. Neuro: Sedated. laboratory and microbiology Laboratory Tests 06/08/24 03:10 Test 06/08/24 03:10 Range/Units Serum Glucose 85 74-106 mg/dL Assessment/Plan Impression: Acute hypoxic respiratory failure On mechanical ventilator Multifocal pneumonia Atelectasis Congestive heart failure Events: Remains on vent support On AC mode; RR 22, VT 500, PEEP 5, FiO2 of 30%. RR decreased to 18. ABG reviewed, c/w alkalemia. CXR demonstrates pulmonary vascular congestion, devices in place. On Precedex drip. Off pressors, hemodynamically stable. Pt underwent hemodialysis yesterday with removal of 3 liters. Continue abx - linezolid, meropenem. Hydralazine PRN. Hemoglobin stable. Tube feeds for nutritional support HD per Nephrology Monitor renal function Monitor electrolytes. Supplement as necessary. Potassium supplementation NTS PRN. Taper sedation as tolerated CPAP with PS 8, PEEP of 5 OK to increase PS to max 20 cmH2O to achieve tidal volume 400-450 mL. Placed on CPAP with PS 12, PEEP of 5 to exercise. S/p bronchoscopy with BAL on 06/02. See procedure note for full details. Rest of plan as noted below Plan: s/p intubation on mechanical ventilator. new settings; AC mode; RR 18, VT 500, PEEP 5, FiO2 of 30%. ABG reviewed, notable for acidemia CXR reviewed, demonstrated e/o multifocal pneumonia, devices in place. Titrate FIO2 to keep O2 saturation above 90%. VAP bundle. Daily ABG and CXR while intubated Sedate for vent synchrony Off pressors. Antibiotics F/u cultures. Positive hepatitis C. IV fluids at 100 ml/hr Maintain euvolemia Monitor renal function Monitor electrolytes. Supplement as necessary. Monitor ins and outs. Tube feeds for nutritional support. GI prophylaxis. DVT prophylaxis. Prognosis: Poor given patient's multiple co-morbidities. Condition: Critical Rest of plan per hospitalist and other consultants. A total of 35 minutes of critical care time was spent reviewing the patient record, examining the patient, making a diagnostic and therapeutic plan, discussing this plan with the medical personnel, following up on diagnostic studies and following the patient for clinical stability excluding any and all procedures. At least 50% of this time was spent in direct, [id number] contact. Thank you Anthony Ugalde NP, for allowing me to participate in this patient's care. Further recommendations will depend on the patient's clinical course. Please do not hesitate to contact me if you have any questions or concerns. This medical document was created using an electronic medical record system with [employer] system. Although these documentations are being carefully reviewed, there may still be some phonetic and typographical changes. The errors are purely typographical, due to imperfection on the software program, and do not reflect any compromise in the patient's medical care. Dietary Evaluation Review Comments: 1) If GI is assessible consider Jevity 1.2 @ 60 ml/hr x24 hrs goal rate as tolerated 2) If pt remains NPO >7 days consider TPN to meet at least 75% of estimated needs 3) Advance pt diet when medically feasible to a Cardiac/Renal Specific K2,2gmNA,low phos,60g Pro diet modified per [employer] PR[employer] WORKER recommendations 4) Continue current plan of care Expected Outcomes/Goals: 1) Pt to receive adequate nutrition support 2) Pt diet to advance Plan discussed with: Other (DORCAS Palmer) Critical Care Time(min): 35 CC Plasma Assessment Blood Product Administration S: [id number] ELIANE ALTAMIRANO MD Jun 08, 2024 20:45
[2024-06-09] VITALS (106 sets, daily range): BP systolic 109–181; BP diastolic 61–86; PULSE 71–90; RESP 10–31; TEMP 98.3–99.7; O2SAT 86–100
[2024-06-09 04:30] LABS: Basophils # (auto) 0 10 ^3/uL (0-0.2); Eosinophils # (auto) 0.2 10 ^3/uL (0-0.8); Hemoglobin 8.4 g/dL (13.5-17.5); Monocytes # (auto) 0.6 10 ^3/uL (0-1.3); Neutrophils # (auto) 5.5 10 ^3/uL (1.6-8.6)
[2024-06-09 04:33] LABS: Basophils % (auto) 0.4 % (0.0-2.0); Eosinophils % (auto) 2.6 % (0.0-7.0); Hematocrit 24.6 % (41.0-53.0); Mean Corpuscular Hemoglobin 31.8 pg (28.0-32.0); Mean Corpuscular Hgb Conc. 34.2 g/dL (32.0-36.0); Mean Corpuscular Volume 93.2 fL (80.0-100.0); Monocytes % (auto) 8.5 % (0.0-12.0); Neutrophils % (auto) 75.5 % (37.0-80.0); Nucleated Red Blood Cells % 0.2 %; Platelet Count (auto) 98 10^3/uL (140-450); Red Blood Cells 2.64 10^6/uL (4.5-5.90); Red Cell Distribution Width 15.5 % (11.8-14.3); White Blood Cell 7.3 10^3/uL (4.4-10.8)
[2024-06-09 04:48] LABS: Alanine Aminotransferase 11 U/L (7-40); Alkaline Phosphatase 84 U/L (46-116); Anion Gap 10 (5-15); BUN/Creatinine Ratio 9.3 (10.0-20.0); Blood Urea Nitrogen 41 mg/dL (9-23); Calcium 8.7 mg/dL (8.7-10.4); Carbon Dioxide 25 mmol/L (20-31); Chloride 102 mmol/L (98-107); Glucose 83 mg/dL (74-106); Potassium 3.4 mmol/L (3.5-5.1); Sodium 137 mmol/L (136-145)
[2024-06-09 04:49] LABS: Albumin 2.4 g/dL (3.2-4.8); Aspartate Aminotransferase 27 U/L (13-40); Bilirubin, Total < 0.2 mg/dL (0.2-1.0); Total Protein 5.8 g/dL (5.7-8.2)
[2024-06-09 06:28] LABS: Base Excess 0.1 mmol/L (-2.0-3.0)
[2024-06-09 13:05] LABS: Base Excess -2.4 mmol/L (-2.0-3.0)
[2024-06-09] MEDS: POTASSIUM CHL 20MEQ/100ML 100 ML IV ONE (13:21)
--- NOTE | 2024-06-09 16:00 | DVHPN2 ---
Progress Note Date Seen: Jun 09, 2024 Medical Necessity Reason Pt with a Central, PICC or Fol: Yes The following are medically ne: Central Line, Rubio Catheter Reason for rubio catheter: Strict I&O Subjective Other Systems: Patient seen and examined by myself on follow-up today, patient remained Objective vital signs Vital Sign Date Time Temp Pulse Resp B/P (MAP) Pulse Ox O2 Delivery O2 Flow Rate FiO2 06/09/24 15:45 81 18 162/70 (100) 96 06/09/24 15:45 Cool Aerosol 10 40 40 06/09/24 12:00 99.5 99.5 Total Intake and Output 06/08/24 06/08/24 06/09/24 15:00 23:00 07:00 Intake Total 380.600 ml 528.304 ml 459.304 ml Output Total 0 ml 60 ml 130 ml Balance 380.600 ml 468.304 ml 329.304 ml medications Current Medications Medications Dose Ordered Sig/[place] Route Start Time Stop Time Status Last Admin Dose Admin Midazolam HCl 50 ml @ 1 mls/hr Q24H IV 05/28/24 21:15 06/03/24 19:18 2 MLS/HR Albuterol 2.5 mg Q6HPRN PRN NEB 05/29/24 00:00 06/09/24 05:54 2.5 MG Fentanyl Citrate 250 ml @ 2.5 mls/hr Q24H IV 05/29/24 01:15 06/04/24 06:47 20 MLS/HR Pantoprazole Sodium 40 mg BID IV 05/29/24 22:00 06/09/24 10:16 40 MG Norepinephrine Bitartrate 250 ml @ 3.75 mls/hr Q24H IV 05/29/24 11:30 06/03/24 14:05 3.75 MLS/HR Enteral Nutritional Formula 1,000 ml 30ML/HR GT 05/30/24 11:00 06/05/24 18:57 1,000 ML Linezolid 300 ml @ 150 mls/hr Q12HR IV 05/31/24 10:00 06/09/24 10:12 150 MLS/HR Metoprolol Tartrate 50 mg BID PO 06/02/24 10:45 06/09/24 10:16 50 MG Diagnostic Test (Pha) 1 strip Q6HR 06/02/24 12:00 06/09/24 11:47 1 STRIP Insulin Human Regular Q6HR SC 06/02/24 12:00 Dextrose 50 ml UD PRN IV 06/02/24 10:45 Hydralazine HCl 10 mg Q4HPRN PRN IV 06/03/24 15:15 06/06/24 17:56 10 MG Dexmedetomidine HCl 400 mcg/ Dextrose 100 ml @ 3.825 mls/ hr Q24H IV 06/05/24 15:30 06/08/24 08:53 3.825 MLS/HR Heparin Sodium (Porcine) 4,000 units PRN PRN IV 06/07/24 09:00 Hydralazine HCl 100 mg Q8HR PO 06/07/24 14:00 06/09/24 13:19 100 MG Meropenem 50 ml @ 17 mls/hr Q12H IV 06/08/24 19:00 06/09/24 06:07 17 MLS/HR Acetylcysteine 100 mg Q6HR NEB 06/09/24 18:00 UNV Examination: LUNGS:Normal, CVS:Normal, MSK:Normal laboratory and microbiology Laboratory Tests 06/09/24 03:00 Test 06/09/24 03:00 Range/Units Serum Glucose 83 74-106 mg/dL Microbiology Date/Time Source Procedure Growth Status 06/02/24 22:27 Blood Blood Culture - Final Staphylococcus epidermidis Staph hominis subsp homins Complete 05/30/24 11:45 Bronchial Washings Gram Stain - Final Complete 05/30/24 11:45 Respiratory Culture - Final Enterobacter cloacae Methicillin Resistant S.aureus Complete 05/30/24 11:45 Pleural Fluid Gram Stain - Final Complete 05/30/24 11:45 Pleural Fluid Body Fluid Culture - Final Complete 05/29/24 12:15 Nose MRSA Screen - Final Complete 05/28/24 22:36 Urine - Catheterized Urine Culture - Final Enterobacter cloacae Escherichia coli Enterococcus faecalis - VRE Complete Problem List/Assessment/Plan Problem List/Assessment/Plan Acute kidney injury superimposed on chronic kidney disease stage 4, oliguric requiring initiation of hemodialysis D Acute respiratory failure, s/p extubation Anemia suspected due to low blood loss s/p PRBC Septic shock Hypernatremia Hypokalemia Metabolic acidosis Chronic urinary retention MRSA bacteremia Recommendations Hemodialysis tomorrow Epogen 30680 IV post hemodialysis Rubio catheter Strict I&Os KCL replacement IV pressor for blood pressure support IV antibiotic per ID consult We will continue to follow Plan discussed with: Patient Dietary Evaluation Review Comments: 1) If GI is assessible consider Jevity 1.2 @ 60 ml/hr x24 hrs goal rate as tolerated 2) If pt remains NPO >7 days consider TPN to meet at least 75% of estimated needs 3) Advance pt diet when medically feasible to a Cardiac/Renal Specific K2,2gmNA,low phos,60g Pro diet modified per APRON WORKER recommendations 4) Continue current plan of care Expected Outcomes/Goals: 1) Pt to receive adequate nutrition support 2) Pt diet to advance CC Plasma Assessment Blood Product Administration S: [id number] DAVID TORRES MD Jun 09, 2024 16:00
[2024-06-09] MEDS: ENOXAPARIN SOD 30 MG/0.3 ML SYRINGE SC ONE (17:33)
[2024-06-09] MEDS: POTASSIUM CHL 20MEQ/100ML 100 ML IV SCH (17:36)
--- NOTE | 2024-06-09 18:06 | DVHPNRES ---
Progress Note Date Seen: Jun 11, 2024 Resident Creating Document: DYLAN GOMEZ RILEY Has the PT tested + for MRSA If YES, has PT been informed?: Yes Medical Necessity Reason Pt with a Central, PICC or Fol: Yes The following are medically ne: Central Line, Rubio Catheter Reason for rubio catheter: Strict I&O Subjective Review of Systems Patient seen and examined at the bedside. Patient is sedated and on mechanical ventilation. Review of systems could not obtain. Patient reports: No new complaints Objective vital signs Vital Sign Date Time Temp Pulse Resp B/P (MAP) Pulse Ox O2 Delivery O2 Flow Rate FiO2 06/09/24 18:00 86 06/09/24 18:00 15 94 Cool Aerosol 10 40 40 06/09/24 15:45 162/70 (100) 06/09/24 12:00 99.5 99.5 Total Intake and Output 06/08/24 06/08/24 06/09/24 15:00 23:00 07:00 Intake Total 380.600 ml 528.304 ml 459.304 ml Output Total 0 ml 60 ml 130 ml Balance 380.600 ml 468.304 ml 329.304 ml medications Current Medications Medications Dose Ordered Sig/[place] Route Start Time Stop Time Status Last Admin Dose Admin Midazolam HCl 50 ml @ 1 mls/hr Q24H IV 05/28/24 21:15 06/03/24 19:18 2 MLS/HR Albuterol 2.5 mg Q6HPRN PRN NEB 05/29/24 00:00 06/09/24 05:54 2.5 MG Fentanyl Citrate 250 ml @ 2.5 mls/hr Q24H IV 05/29/24 01:15 06/04/24 06:47 20 MLS/HR Pantoprazole Sodium 40 mg BID IV 05/29/24 22:00 06/09/24 10:16 40 MG Norepinephrine Bitartrate 250 ml @ 3.75 mls/hr Q24H IV 05/29/24 11:30 06/03/24 14:05 3.75 MLS/HR Enteral Nutritional Formula 1,000 ml 30ML/HR GT 05/30/24 11:00 06/05/24 18:57 1,000 ML Linezolid 300 ml @ 150 mls/hr Q12HR IV 05/31/24 10:00 06/09/24 10:12 150 MLS/HR Metoprolol Tartrate 50 mg BID PO 06/02/24 10:45 06/09/24 10:16 50 MG Diagnostic Test (Pha) 1 strip Q6HR 06/02/24 12:00 06/09/24 17:33 1 STRIP Insulin Human Regular Q6HR SC 06/02/24 12:00 Dextrose 50 ml UD PRN IV 06/02/24 10:45 Hydralazine HCl 10 mg Q4HPRN PRN IV 06/03/24 15:15 06/06/24 17:56 10 MG Dexmedetomidine HCl 400 mcg/ Dextrose 100 ml @ 3.825 mls/ hr Q24H IV 06/05/24 15:30 06/08/24 08:53 3.825 MLS/HR Heparin Sodium (Porcine) 4,000 units PRN PRN IV 06/07/24 09:00 Hydralazine HCl 100 mg Q8HR PO 06/07/24 14:00 06/09/24 13:19 100 MG Meropenem 50 ml @ 17 mls/hr Q12H IV 06/08/24 19:00 06/09/24 06:07 17 MLS/HR Acetylcysteine 100 mg Q6HR NEB 06/09/24 18:00 Potassium Chloride 100 ml @ 50 mls/hr Q2H IV 06/09/24 16:00 06/09/24 19:59 06/09/24 17:36 50 MLS/HR Amlodipine Besylate 10 mg DAILY PO 06/10/24 10:00 Examination General Appearance: Patient is sedated and on mechanical ventilation. RASS score -3 open eyes on voice HEENT: Atraumatic, PERRLA, EOMI, Mucous membrane moist/pink Respiratory: Clear to auscultation, Normal air movement Cardiovascular: Regular rate, Normal S1, Normal S2, No murmurs, no chest wall tenderness Abdominal: Normal bowel sounds, Soft, No tenderness, No hepatospenomegaly, No masses Extremities: No clubbing, No cyanosis, No edema, Normal pulses, No tenderness/swelling Skin: No rashes, No breakdown, No significant lesion laboratory and microbiology Laboratory Tests 06/09/24 03:00 Test 06/09/24 03:00 Range/Units Serum Glucose 83 74-106 mg/dL Microbiology Date/Time Source Procedure Growth Status 06/02/24 22:27 Blood Blood Culture - Final Staphylococcus epidermidis Staph hominis subsp homins Complete 05/30/24 11:45 Bronchial Washings Gram Stain - Final Complete 05/30/24 11:45 Respiratory Culture - Final Enterobacter cloacae Methicillin Resistant S.aureus Complete 05/30/24 11:45 Pleural Fluid Gram Stain - Final Complete 05/30/24 11:45 Pleural Fluid Body Fluid Culture - Final Complete 05/29/24 12:15 Nose MRSA Screen - Final Complete 05/28/24 22:36 Urine - Catheterized Urine Culture - Final Enterobacter cloacae Escherichia coli Enterococcus faecalis - VRE Complete Labs and/or images reviewed: Labs reviewed by me, Image(s) reviewed by me Problem List/Assessment/Plan Problem List/Assessment/Plan NEURO: Acute metabolic encephalopathy likely due to sepsis Patient is sedated and on mechanical ventilation, RASS scores -3, opens eyes on voice CARDIOVASCULAR: Hypertension Continue home medication, injection hydralazine 10 mg q.6 hours as needed PULMONARY: Septic shock likely due to pneumonia, improved Acute hypoxic respiratory failure, likely due to pneumonia Pneumonia likely due to Gram-positive Gram-negative CPAP trials were successful and the patient was extubated Sputum culture from bronchoalveolar lavage from 05/24/24 shows MRSA, Enterobacter cloacae Blood culture from the 06/02/24 shows Staphylococcus epidermidis , Staph hominis Repeat culture from 06/09/2024 shows no growth within 24 hours Continue linezolid and meropenem, per culture sensitivity results Check flu and quit 19 MRSA nares screening negative Start N-acetylcysteine Breathing treatment q.6 hours p.r.n. GI GI ppx: Protonix Hepatitis-C virus antibody positive Stool occult blood negative RENAL: FROYLAN on CKD grade 4 Nephrology on the board Hypernatremia, improved Hypokalemia, KCl 40 mEq Hyperkalemia, improved UTI, urinalysis shows UTI picture Urine culture from 05/28/2024 shows Enterobacter coli C, E coli, Enterococcus faecalis Repeat urine culture Continue linezolid and meropenem Status post right lower limb amputation, above the knee likely due to PAD HEME Severe anemia, transfused 3 pack of red blood cells SKIN Possible keloid There is a growth on the left shoulder, per son the has been present for several years Follow up on outpatient basis LINES/DRAINS/ACCESS: ETT, intubated on 05/28/2024 IV access Hemodialysis catheter on left internal jugular vein, placed on 06/03/2024 Right internal jugular vein CBC Suprapubic catheter, changed on 06/02/2020 Versed 4 Fentanyl 50 No pressor DIET: Nepro DVT prophylaxis Lovenox CODE STATUS: Full code Patient status updated with the son on the the bedside, also consulted for the CPAP trial and extubation Critical time spent more than 50 minutes, including patient care, chart review and updating the family. excluding any procedures. Case discussed with Dr. Ashby Plan discussed with: Patient, Son, Other My Orders My Orders Orders - DYLAN GOMEZ RESDIENT Procedure Category Date Status Time Blood Culture SUZANNA 06/09/24 Logged 15:07 Amlodipine Tablet PHA 06/10/24 In Process (Norvasc Tablet) 10:00 Dietary Evaluation Review Comments: 1) If GI is assessible consider Jevity 1.2 @ 60 ml/hr x24 hrs goal rate as tolerated 2) If pt remains NPO >7 days consider TPN to meet at least 75% of estimated needs 3) Advance pt diet when medically feasible to a Cardiac/Renal Specific K2,2gmNA,low phos,60g Pro diet modified per PLUMBING MECHANIC recommendations 4) Continue current plan of care Expected Outcomes/Goals: 1) Pt to receive adequate nutrition support 2) Pt diet to advance CC Plasma Assessment Blood Product Administration S: [id number] Date of Service: Jun 11, 2024 Billing Provider: MARK ASHBY MD Common Visit Codes: 66812-[id number] CARE 30-74 MIN DYLAN GOMEZ RESDIENT Jun 09, 2024 18:06 MARK ASHBY MD Jun 12, 2024 13:44
[2024-06-09] MEDS: amLODIPine BESYLATE 5 MG TAB PO ONE (18:14)
[2024-06-09] MEDS: ACETYLCYSTEINE 10 %(100MG/ML) SOL 4ML NEB SCH (18:40)
[2024-06-09 20:47] LABS: Base Excess -2.1 mmol/L (-2.0-3.0)
--- NOTE | 2024-06-09 20:51 | DVHNC2 ---
Procedure - Bronchoscopy procedure note: Indications: Bilateral lower lobe atelectasis, increased ET tube secretions, Possible mucous plugging. Time out: 1050 AM. Time out was performed. Patient identification and proposed procedure were verified prior to the procedure by the physician, and a nurse (DORCAS Warren), and the respiratory therapist (RT Meehan) in ICU room. Date: 06/09/24 Medicines: See PATROL MOTHER notes. Complications: None Procedure: Patient medications and allergies reviewed. The risks and benefits of the procedure and the sedation options and risk were discussed with the patient's healthcare proxy. All questions were answered and informed consent was obtained. Patient identification and proposed procedure were verified prior to the procedure by the physician, and a nurse, and the respiratory therapist in ICU room. The heart rate, respiratory rate, oxygen saturations, blood pressure, adequacy of pulmonary ventilation, and response to care were monitored throughout the procedure. The physical status of the patient was reassessed after the procedure. After obtaining informed consent, the bronchoscope was introduced through the endotracheal tube and advanced into the trachea bronchial tree of both lungs. The procedure was accomplished without difficulty. The patient tolerated the procedure well. Findings: The trachea is in normal caliber. The chacho is sharp. The tracheobronchial tree of the right lung was examined to at least the first subsegmental level. The bronchial mucosa and anatomy in the right lung are normal. There are no endobronchial lesions. There was copious whitish secretions from right main stem bronchus onward throughout R1-R3 and R6-R10. The left upper lobe, lingula, and left lower lobe were examined to at least the first subsegmental level. Bronchial mucosa and anatomy in the left upper lobe and lingula are normal. There were no endobronchial lesions. There was copious whitish secretions from left main stem bronchus onward throughout L6-L10. Mucous plugging removed from L6-L10. Mucosal hemorrhage from right lower lobe bronchus and left lower lobe bronchus. Resolved with 10 mL cold saline at each site. There was no active bleeding at the completion of the procedure. Estimated blood loss: Less than 5 mL. Impression: Bilateral lower lobe atelectasis due to mucous plugging Mucous plugging from L6-L10 and R1-R3, R6-R10 Recommendation: pulmonary toileting Procedure codes: 77352, bronchoscopy, rigid and flexible, including fluoroscopic guidance, one performed; with bronchial endobronchial broncho-alveolar lavage, single or multiple sites ELIANE ALTAMIRANO MD Jun 09, 2024 20:51
[2024-06-09] MEDS: DEXTROSE 50% SYRINGE 50 ML IV ONE (22:02)
[2024-06-09] MEDS: DEXTROSE (50%) 50ML SYRG IV ONE (22:31)
[2024-06-09] MEDS: LABETALOL HCL 20 MG/4 ML VL IV ONE (22:32)
[2024-06-10] VITALS (108 sets, daily range): BP systolic 92–182; BP diastolic 44–85; PULSE 71–117; RESP 11–30; TEMP 97.7–99.3; O2SAT 85–100
[2024-06-10 01:17] LABS: Base Excess -1.5 mmol/L (-2.0-3.0)
[2024-06-10 04:13] LABS: Basophils # (auto) 0.1 10 ^3/uL (0-0.2); Basophils % (auto) 0.5 % (0.0-2.0); Eosinophils # (auto) 0.1 10 ^3/uL (0-0.8); Eosinophils % (auto) 1.1 % (0.0-7.0); Hematocrit 27.7 % (41.0-53.0); Hemoglobin 9.3 g/dL (13.5-17.5); Lymphocytes # (auto) 0.8 10 ^3/uL (0.4-5.4); Lymphocytes % (auto) 7.2 % (10.0-50.0); Mean Corpuscular Hemoglobin 31.4 pg (28.0-32.0); Mean Corpuscular Hgb Conc. 33.5 g/dL (32.0-36.0); Mean Corpuscular Volume 93.6 fL (80.0-100.0); Monocytes # (auto) 0.7 10 ^3/uL (0-1.3); Monocytes % (auto) 6.3 % (0.0-12.0); Neutrophils # (auto) 9.3 10 ^3/uL (1.6-8.6); Neutrophils % (auto) 84.9 % (37.0-80.0); Nucleated Red Blood Cells % 0.1 %; Platelet Count (auto) 125 10^3/uL (140-450); Red Blood Cells 2.96 10^6/uL (4.5-5.90); Red Cell Distribution Width 15.8 % (11.8-14.3)
[2024-06-10] MEDS: ETOMIDATE (2MG/ML) 20ML VIAL IV ONE ×2 (04:24→04:40)
[2024-06-10] MEDS: SUCCINYLCHOLINE CHLORIDE 20 MG/ML 10ML VIAL IV ONE ×2 (04:25→04:40)
[2024-06-10 04:31] LABS: Albumin 2.5 g/dL (3.2-4.8); Alkaline Phosphatase 86 U/L (46-116); Anion Gap 10 (5-15); Aspartate Aminotransferase 21 U/L (13-40); BUN/Creatinine Ratio 9.1 (10.0-20.0); Blood Urea Nitrogen 44 mg/dL (9-23); Calcium 8.8 mg/dL (8.7-10.4); Carbon Dioxide 23 mmol/L (20-31); Chloride 102 mmol/L (98-107); Glucose 82 mg/dL (74-106); Potassium 3.7 mmol/L (3.5-5.1); Sodium 135 mmol/L (136-145)
[2024-06-10 04:32] LABS: Bilirubin, Total < 0.2 mg/dL (0.2-1.0); Total Protein 6.2 g/dL (5.7-8.2)
[2024-06-10 04:34] LABS: Alanine Aminotransferase < 9 U/L (7-40)
--- NOTE | 2024-06-10 04:35 | DVH ---
CHEST RADIOGRAPH Indication: DESATURATING. Technique: Single frontal view of the chest was obtained Comparison: XY CHEST PORTABLE on DOS: 06/08/24, XY CHEST PORTABLE on DOS: 06/07/24, XY CHEST PORTABLE on DOS: 06/06/24 IMPRESSION: There has been interval development of moderate to large left pleural effusion with obscuration of th e left hemidiaphragm . Underlying atelectasis or consolidation is not excluded. There is moderate pulmonary vascular congestion. Endotracheal tube and enteric tube have been removed. Right IJ catheter tip and left dialysis cathet er tip are within the region of the expected SVC. No discrete pneumothorax.
--- NOTE | 2024-06-10 05:18 | DVH ---
CHEST RADIOGRAPH Indication: post intubation Technique: Single frontal view of the chest was obtained COMPARISON: XY CHEST PORTABLE on DOS: 06/10/24, XY CHEST PORTABLE on DOS: 06/08/24, XY CHEST PORTABLE on DOS: 06/07/24 FINDINGS: Lines and Tubes: Endotracheal tube, enteric catheter and right and left central venous catheter in sa tisfactory position. Lungs: Patchy bilateral airspace disease. Pleura: Small left pleural effusion. No pneumothorax. Cardiomediastinal contours: Cardiomegaly Bones: Unremarkable IMPRESSION: Lines and tubes in satisfactory position. No significant interval change.
--- NOTE | 2024-06-10 05:27 | DVHNC2 ---
GAMALIEL PALACIO RESIDENT 06/10/24 0527: Procedure - Procedure: Endotracheal Intubation Placement. INDICATION: Acute respiratory failure, accessory muscle usage, failure to improve oxygenation on BiPAP / positive pressure airway with tachypnea and altered level of consciousness. CONSENT: Emergent procedure. Implied. Was previously intubated. CODE STATUS: Full Code. TIME OUT. [timed at 4:35 am of 06/10/2024] -Patient medications and allergies reviewed. -Patient identification and proposed procedure were verified prior to the procedure by the physician, and a nurse in the patient's room. -The heart rate, respiratory rate, oxygen saturations, blood pressure, adequacy of pulmonary ventilation, and response to care were monitored throughout the procedure. -The physical status of the patient was reassessed after the procedure. PROCEDURE SUMMARY: 1. A time out was performed. 2. My hands were washed immediately prior to the procedure. I wore a surgical cap, mask with protective eyewear, gown and gloves throughout the procedure. 3. The patient was placed on a court recording monitor including continuous pulse oxime try. 4. The patient received 16 mg Etomidate and 200 mg succinylcholine for induction. 5. Appropriate preoxygenation and bag mask support for roughly 3 minutes to keep SPO2 > 94% with the help of the RT team. 6. Using a MAC 4 GlideScope and a size 8.0 endotracheal tube with stylet, the patient was intubated on the 1st attempt. 7. The stylet was removed and cuff balloon was inflated. Appropriate endotracheal tube position was confirmed by direct visualization of vocal cord passage, fogging of the tube, CO2 colorimetric indicator and symmetric breath sounds. 8. The tube was secured at 23 cm at the lips. 9. Post intubation chest x-ray is demonstrates the ETT between 2-6 cm above the chacho. 10. B/L air entry auscultated with stethoscope and corresponding chest expansion on positive pressure satisfactory. POST PROCEDURE: 1. Continuous monitoring. 2. ICU level of care. 3. Continue Ventilation based on ABG with sedation and analgesia optimization targeting RASS of 0 to -2. 4. Daily chest xray. 5. Close observation for avoiding common complications. Highly appreciate timely and efficient support of [employer] team, RT team, Radiology team, risk management professional hospitalist and ancillary staff support. Procedure done by Gamaliel Palacio MD, Internal Medicine PGY 2 resident. With close supervision of Dr. Allen. SHARLA ALLEN MD 06/10/24 0717: Date of Service: Jun 10, 2024 Billing Provider: SHARLA ALLEN MD Common Visit Codes: PROCEDURE ONLY Procedure Codes: [id number] GAMALIEL PALACIO RESIDENT Jun 10, 2024 05:27 SHARLA ALLEN MD Jun 10, 2024 07:17
[2024-06-10 07:39] LABS: Base Excess -2.4 mmol/L (-2.0-3.0)
[2024-06-10] MEDS ORDERED: ENOXAPARIN SOD 40 MG/0.4 ML SYRINGE SC SCH (10:00)
[2024-06-10] MEDS: amLODIPine BESYLATE 5 MG TAB PO SCH (10:00)
[2024-06-10] MEDS: ALBUMIN 25% 100 ML IV ONE ×2 (10:30→12:44)
[2024-06-10] MEDS: SODIUM CHL 0.9% 1000 ML BAG XX ONE (12:16)
--- NOTE | 2024-06-10 12:39 | DVHPN2 ---
Progress Note Date Seen: Jun 10, 2024 Medical Necessity Reason Pt with a Central, PICC or Fol: Yes The following are medically ne: Central Line, Rubio Catheter Reason for rubio catheter: Strict I&O Subjective Review of Systems: RESPIRATORY:Abnormal Other Systems: Patient seen and examined by myself in follow-up today, patient remained intubated on ventilator Patient examined hemodialysis, blood pressure stable Objective vital signs Vital Sign Date Time Temp Pulse Resp B/P (MAP) Pulse Ox O2 Delivery O2 Flow Rate FiO2 06/10/24 10:17 89 18 106/61 (76) 97 70 06/10/24 08:00 Mechanical Ventilator+ 06/10/24 06:30 97.7 97.7 06/09/24 20:05 15.0 Total Intake and Output 06/09/24 06/09/24 06/10/24 14:59 22:59 06:59 Intake Total 412.951 ml 200 ml 378.5 ml Output Total 70 ml 75 ml Balance 412.951 ml 130 ml 303.5 ml medications Current Medications Medications Dose Ordered Sig/[place] Route Start Time Stop Time Status Last Admin Dose Admin Midazolam HCl 50 ml @ 1 mls/hr Q24H IV 05/28/24 21:15 06/10/24 04:40 1 MLS/HR Albuterol 2.5 mg Q6HPRN PRN NEB 05/29/24 00:00 06/10/24 06:29 2.5 MG Fentanyl Citrate 250 ml @ 2.5 mls/hr Q24H IV 05/29/24 01:15 06/10/24 04:40 2.5 MLS/HR Pantoprazole Sodium 40 mg BID IV 05/29/24 22:00 06/09/24 22:31 40 MG Norepinephrine Bitartrate 250 ml @ 3.75 mls/hr Q24H IV 05/29/24 11:30 06/03/24 14:05 3.75 MLS/HR Enteral Nutritional Formula 1,000 ml 30ML/HR GT 05/30/24 11:00 06/05/24 18:57 1,000 ML Linezolid 300 ml @ 150 mls/hr Q12HR IV 05/31/24 10:00 06/09/24 22:31 150 MLS/HR Metoprolol Tartrate 50 mg BID PO 06/02/24 10:45 06/09/24 10:16 50 MG Diagnostic Test (Pha) 1 strip Q6HR 06/02/24 12:00 06/10/24 05:29 1 STRIP Insulin Human Regular Q6HR SC 06/02/24 12:00 Dextrose 50 ml UD PRN IV 06/02/24 10:45 Hydralazine HCl 10 mg Q4HPRN PRN IV 06/03/24 15:15 06/10/24 01:03 10 MG Dexmedetomidine HCl 400 mcg/ Dextrose 100 ml @ 3.825 mls/ hr Q24H IV 06/05/24 15:30 06/08/24 08:53 3.825 MLS/HR Heparin Sodium (Porcine) 4,000 units PRN PRN IV 06/07/24 09:00 Hydralazine HCl 100 mg Q8HR PO 06/07/24 14:00 06/09/24 13:19 100 MG Meropenem 50 ml @ 17 mls/hr Q12H IV 06/08/24 19:00 06/10/24 05:51 17 MLS/HR Acetylcysteine 100 mg Q6HR NEB 06/09/24 18:00 06/10/24 06:29 100 MG Amlodipine Besylate 10 mg DAILY PO 06/10/24 10:00 Enoxaparin Sodium 40 mg DAILY SC 06/10/24 10:00 UNV Enoxaparin Sodium 30 mg DAILY SC 06/10/24 10:00 Examination: LUNGS:Normal, CVS:Normal, MSK:Abnormal laboratory and microbiology Laboratory Tests 06/10/24 03:30 Test 06/10/24 03:30 Range/Units Serum Glucose 82 74-106 mg/dL Microbiology Date/Time Source Procedure Growth Status 06/02/24 22:27 Blood Blood Culture - Final Staphylococcus epidermidis Staph hominis subsp homins Complete 05/30/24 11:45 Bronchial Washings Gram Stain - Final Complete 05/30/24 11:45 Respiratory Culture - Final Enterobacter cloacae Methicillin Resistant S.aureus Complete 05/30/24 11:45 Pleural Fluid Gram Stain - Final Complete 05/30/24 11:45 Pleural Fluid Body Fluid Culture - Final Complete 05/29/24 12:15 Nose MRSA Screen - Final Complete 05/28/24 22:36 Urine - Catheterized Urine Culture - Final Enterobacter cloacae Escherichia coli Enterococcus faecalis - VRE Complete Problem List/Assessment/Plan Problem List/Assessment/Plan Acute kidney injury superimposed on chronic kidney disease stage 4, oliguric requiring initiation of hemodialysis D Acute respiratory failure, s/p extubation Anemia suspected due to low blood loss s/p PRBC Septic shock Hypernatremia Hypokalemia Peripheral arterial disease Right above knee amputation Metabolic acidosis Chronic urinary retention MRSA bacteremia Recommendations Continue with UF to 3 L as tolerated Epogen 00937 IV post hemodialysis Rubio catheter Strict I&Os KCL replacement IV pressor for blood pressure support IV antibiotic per ID consult Radiology for tunneled hemodialysis catheter when the blood culture negative for 72 hours We will continue to follow Plan discussed with: Other (Nurse) My Orders My Orders Orders - DAVID TORRES MD Procedure Category Date Status Time Hemodialysis Orders ORDERS 06/10/24 Transmitted 07:00 Dialysis Nursing SUZAN 06/10/24 In Process Message 07:00 Document Fluid Input SUZAN 06/10/24 In Process And Outpu 07:00 Epoetin Calin-Epbx PHA 06/10/24 In Process (Retacrit) 21:00 * Radiologist Consult CONS 06/11/24 Transmitted 08:00 Dietary Evaluation Review Comments: 1) If GI is assessible consider Jevity 1.2 @ 60 ml/hr x24 hrs goal rate as tolerated 2) If pt remains NPO >7 days consider TPN to meet at least 75% of estimated needs 3) Advance pt diet when medically feasible to a Cardiac/Renal Specific K2,2gmNA,low phos,60g Pro diet modified per TEST PILOT recommendations 4) Continue current plan of care Expected Outcomes/Goals: 1) Pt to receive adequate nutrition support 2) Pt diet to advance CC Plasma Assessment Blood Product Administration S: [id number] DAVID TORRES MD Jun 10, 2024 12:39
[2024-06-10] MEDS: ENOXAPARIN SOD 30 MG/0.3 ML SYRINGE SC SCH (15:17)
[2024-06-10] MEDS ORDERED: ENOXAPARIN SOD 40 MG/0.4 ML SYRINGE SC ONE (21:45)
--- NOTE | 2024-06-10 21:59 | DVHPNRES ---
Progress Note Date Seen: Jun 10, 2024 Resident Creating Document: DYLAN GOMEZ RESBEATRIZENT Has the PT tested + for MRSA If YES, has PT been informed?: Yes Medical Necessity Reason Pt with a Central, PICC or Fol: Yes The following are medically ne: Central Line, Rubio Catheter Reason for rubio catheter: Strict I&O Subjective Review of Systems Patient seen and examined at the bedside. Patient is sedated and on mechanical ventilation. Review of systems could not obtain. Changes from previous H/P or p: No Changes Objective vital signs Vital Sign Date Time Temp Pulse Resp B/P (MAP) Pulse Ox O2 Delivery O2 Flow Rate FiO2 06/10/24 19:53 78 18 115/57 (76) 100 50 06/10/24 18:00 98.1 98.1 06/10/24 18:00 Mechanical Ventilator+ 06/09/24 20:05 15.0 Total Intake and Output 06/09/24 06/09/24 06/10/24 15:00 23:00 07:00 Intake Total 444.038 ml 150 ml 387.5 ml Output Total 70 ml 75 ml Balance 444.038 ml 80 ml 312.5 ml medications Current Medications Medications Dose Ordered Sig/[place] Route Start Time Stop Time Status Last Admin Dose Admin Midazolam HCl 50 ml @ 1 mls/hr Q24H IV 05/28/24 21:15 06/10/24 12:44 4 MLS/HR Albuterol 2.5 mg Q6HPRN PRN NEB 05/29/24 00:00 06/10/24 17:51 2.5 MG Fentanyl Citrate 250 ml @ 2.5 mls/hr Q24H IV 05/29/24 01:15 06/10/24 04:40 2.5 MLS/HR Pantoprazole Sodium 40 mg BID IV 05/29/24 22:00 06/10/24 15:08 40 MG Norepinephrine Bitartrate 250 ml @ 3.75 mls/hr Q24H IV 05/29/24 11:30 06/03/24 14:05 3.75 MLS/HR Enteral Nutritional Formula 1,000 ml 30ML/HR GT 05/30/24 11:00 06/05/24 18:57 1,000 ML Linezolid 300 ml @ 150 mls/hr Q12HR IV 05/31/24 10:00 06/10/24 15:08 150 MLS/HR Metoprolol Tartrate 50 mg BID PO 06/02/24 10:45 06/10/24 15:09 50 MG Diagnostic Test (Pha) 1 strip Q6HR 06/02/24 12:00 06/10/24 17:27 1 STRIP Insulin Human Regular Q6HR SC 06/02/24 12:00 Dextrose 50 ml UD PRN IV 06/02/24 10:45 Hydralazine HCl 10 mg Q4HPRN PRN IV 06/03/24 15:15 06/10/24 01:03 10 MG Dexmedetomidine HCl 400 mcg/ Dextrose 100 ml @ 3.825 mls/ hr Q24H IV 06/05/24 15:30 06/08/24 08:53 3.825 MLS/HR Heparin Sodium (Porcine) 4,000 units PRN PRN IV 06/07/24 09:00 Hydralazine HCl 100 mg Q8HR PO 06/07/24 14:00 06/10/24 17:33 100 MG Meropenem 50 ml @ 17 mls/hr Q12H IV 06/08/24 19:00 06/10/24 17:53 17 MLS/HR Acetylcysteine 100 mg Q6HR NEB 06/09/24 18:00 06/10/24 17:51 100 MG Amlodipine Besylate 10 mg DAILY PO 06/10/24 10:00 Enoxaparin Sodium 40 mg DAILY SC 06/10/24 10:00 UNV Enoxaparin Sodium 30 mg DAILY SC 06/10/24 10:00 06/10/24 15:17 30 MG Examination General Appearance: Patient is sedated and on mechanical ventilation. RASS score -3 open eyes on voice HEENT: Atraumatic, PERRLA, EOMI, Mucous membrane moist/pink Respiratory: Clear to auscultation, Normal air movement Cardiovascular: Regular rate, Normal S1, Normal S2, No murmurs, no chest wall tenderness Abdominal: Normal bowel sounds, Soft, No tenderness, No hepatospenomegaly, No masses Extremities: No clubbing, No cyanosis, No edema, Normal pulses, No tenderness/swelling Skin: No rashes, No breakdown, No significant lesion laboratory and microbiology Laboratory Tests 06/10/24 03:30 Test 06/10/24 03:30 Range/Units Serum Glucose 82 74-106 mg/dL Microbiology Date/Time Source Procedure Growth Status 06/09/24 18:54 Blood Blood Culture - Preliminary NO GROWTH AFTER 24 HOURS OF INCUBATION. Resulted 05/30/24 11:45 Bronchial Washings Gram Stain - Final Complete 05/30/24 11:45 Respiratory Culture - Final Enterobacter cloacae Methicillin Resistant S.aureus Complete 05/30/24 11:45 Pleural Fluid Gram Stain - Final Complete 05/30/24 11:45 Pleural Fluid Body Fluid Culture - Final Complete 05/29/24 12:15 Nose MRSA Screen - Final Complete 05/28/24 22:36 Urine - Catheterized Urine Culture - Final Enterobacter cloacae Escherichia coli Enterococcus faecalis - VRE Complete Labs and/or images reviewed: Labs reviewed by me, Image(s) reviewed by me Problem List/Assessment/Plan Problem List/Assessment/Plan NEURO: Acute metabolic encephalopathy likely due to sepsis Patient is sedated and on mechanical ventilation, RASS scores -3, opens eyes on voice History of seizure during last admission(1 month back) used Keppra for 1 week Consulted neurology for the requirement of antiepileptic CARDIOVASCULAR: Hypertension Continue home medication, injection hydralazine 10 mg q.6 hours as needed PULMONARY: Acute Hypoxic Respiratory Failure likely due to pneumonia Septic shock likely due to pneumonia, improved Pneumonia likely due to Gram-positive Gram-negative CPAP trials tried yesterday, and the beginning patient tolerated, during the night patient's status worsened, put back on the mechanical ventilation with a setting of (VT 500, RR 18, peep 5, FiO2 70%) ABGs shows respiratory acidosis with pH 7.34, pCO2 43.8, PO2 55.2 and bicarbonate 23.3 Sputum culture from bronchoalveolar lavage from 05/24/24 shows MRSA, Enterobacter cloacae Blood culture from the 06/02/24 shows Staphylococcus epidermidis , Staph hominis Repeat culture from 06/09/2024 shows no growth within 24 hours Continue linezolid and meropenem, per culture sensitivity results Check flu and quit 19 MRSA nares screening negative Continue N-acetylcysteine Bronchoscopy planned for tomorrow Breathing treatment q.6 hours p.r.n. GI GI ppx: Protonix Hepatitis-C virus antibody positive Stool occult blood negative RENAL: FROYLAN on CKD grade 4 Nephrology on the board, perform hemodialysis today, took out 3 L Hypernatremia, improved Hypokalemia, improved Hyperkalemia, improved UTI, urinalysis shows UTI picture Urine culture from 05/28/2024 shows Enterobacter coli C, E coli, Enterococcus faecalis Repeat urine culture Continue linezolid and meropenem Status post right lower limb amputation, above the knee likely due to PAD HEME Severe anemia, transfused 3 pack of red blood cells SKIN Possible keloid There is a growth on the left shoulder, per son the has been present for several years Follow up on outpatient basis LINES/DRAINS/ACCESS: ETT, intubated on 05/28/2024 IV access Hemodialysis catheter on left internal jugular vein, placed on 06/03/2024 Right internal jugular vein CBC Suprapubic catheter, changed on 06/02/2020 Versed 4 Fentanyl 50 No pressor DIET: Nepro DVT prophylaxis Lovenox CODE STATUS: Full code Patient status updated with the son on the phone, also consulted regarding requirement of the bronchoscopy for tomorrow. Critical time spent more than 50 minutes, including patient care, chart review and updating the family. excluding any procedures. Case discussed with Dr. Ashby Plan discussed with: Patient My Orders My Orders Orders - DYLAN GOMEZ RESDILONNIE Procedure Category Date Status Time Enoxaparin Sodium PHA 06/10/24 In Process (Lovenox) 10:00 Rapid Influenza A&B LAB 06/10/24 Logged 17:17 Covid19 Antigen [facility] 06/10/24 Logged * Neurology Consult CONS 06/10/24 Transmitted 17:17 Complete Blood Count LAB 06/11/24 Verified 04:00 Comprehensive LAB 06/11/24 Verified Metabolic Panel 04:00 Chest Xray 1 View XY 06/11/24 Logged 04:00 Abg W/ Co-Ox RT 06/11/24 Logged 04:00 Dietary Evaluation Review Comments: 1) If GI is assessible consider Jevity 1.2 @ 60 ml/hr x24 hrs goal rate as tolerated 2) If pt remains NPO >7 days consider TPN to meet at least 75% of estimated needs 3) Advance pt diet when medically feasible to a Cardiac/Renal Specific K2,2gmNA,low phos,60g Pro diet modified per [employer]ELOPER recommendations 4) Continue current plan of care Expected Outcomes/Goals: 1) Pt to receive adequate nutrition support 2) Pt diet to advance CC Plasma Assessment Blood Product Administration S: [id number] Date of Service: Jun 10, 2024 Billing Provider: MARK ASHBY MD Common Visit Codes: [id number] CARE 30-74 MIN [facility] Jun 10, 2024 21:59 MARK ASHBY MD Jun 12, 2024 13:43
[2024-06-10] MEDS: EPOETIN ALFA-EPBX 10,000 UNIT/1ML VIAL SC ONE (22:30)
[2024-06-11] VITALS (104 sets, daily range): BP systolic 91–172; BP diastolic 51–83; PULSE 69–93; RESP 12–40; TEMP 97.6–98.8; O2SAT 96–100
[2024-06-11 04:16] LABS: Basophils # (auto) 0.1 10 ^3/uL (0-0.2); Hemoglobin 7.9 g/dL (13.5-17.5); Lymphocytes # (auto) 0.9 10 ^3/uL (0.4-5.4)
[2024-06-11 04:19] LABS: Basophils % (auto) 0.7 % (0.0-2.0); Eosinophils # (auto) 0.5 10 ^3/uL (0-0.8); Eosinophils % (auto) 6.1 % (0.0-7.0); Hematocrit 23.7 % (41.0-53.0); Lymphocytes % (auto) 10.9 % (10.0-50.0); Mean Corpuscular Hemoglobin 31.5 pg (28.0-32.0); Mean Corpuscular Hgb Conc. 33.5 g/dL (32.0-36.0); Mean Corpuscular Volume 94.2 fL (80.0-100.0); Monocytes # (auto) 0.6 10 ^3/uL (0-1.3); Monocytes % (auto) 7.5 % (0.0-12.0); Neutrophils # (auto) 6.5 10 ^3/uL (1.6-8.6); Neutrophils % (auto) 74.8 % (37.0-80.0); Nucleated Red Blood Cells % 0.1 %; Platelet Count (auto) 100 10^3/uL (140-450); Red Blood Cells 2.51 10^6/uL (4.5-5.90); Red Cell Distribution Width 15.4 % (11.8-14.3); White Blood Cell 8.6 10^3/uL (4.4-10.8)
--- NOTE | 2024-06-11 04:37 | DVH ---
CHEST RADIOGRAPH Indication: Pneumonia Technique: Single frontal view of the chest was obtained COMPARISON: XY CHEST PORTABLE on DOS: 06/10/24, XY CHEST PORTABLE on DOS: 06/10/24, XY CHEST PORTABLE on DOS: 06/08/24 FINDINGS: Lines and Tubes: Endotracheal tube, enteric catheter and right central venous catheter in satisfactor y position. Left central venous catheter in satisfactory position. Lungs: Multifocal airspace disease. Pleura: No effusion. No pneumothorax. Cardiomediastinal contours: Unremarkable Bones: Unremarkable IMPRESSION: Slightly improved aeration in the left lung. No other significant interval change.
[2024-06-11 04:39] LABS: Albumin 2.5 g/dL (3.2-4.8); Alkaline Phosphatase 89 U/L (46-116); Anion Gap 8 (5-15); Aspartate Aminotransferase 17 U/L (13-40); BUN/Creatinine Ratio 7.6 (10.0-20.0); Calcium 8.9 mg/dL (8.7-10.4); Carbon Dioxide 27 mmol/L (20-31); Chloride 103 mmol/L (98-107); Glucose 82 mg/dL (74-106); Potassium 3.7 mmol/L (3.5-5.1); Sodium 138 mmol/L (136-145)
[2024-06-11 04:40] LABS: Bilirubin, Total < 0.2 mg/dL (0.2-1.0); Blood Urea Nitrogen 26 mg/dL (9-23); Total Protein 5.6 g/dL (5.7-8.2)
[2024-06-11 04:41] LABS: Alanine Aminotransferase < 9 U/L (7-40)
[2024-06-11 06:46] LABS: Base Excess 1.5 mmol/L (-2.0-3.0)
--- NOTE | 2024-06-11 09:52 | DVHPN2 ---
Progress Note Date Seen: Jun 11, 2024 Has the PT tested + for MRSA If YES, has PT been informed?: Yes Medical Necessity Reason Pt with a Central, PICC or Fol: Yes The following are medically ne: Central Line, Rubio Catheter Reason for rubio catheter: Strict I&O Subjective Review of Systems: RESPIRATORY:Abnormal Other Systems: Patient seen and examined by myself in follow-up today, patient remained intubated on ventilator Objective vital signs Vital Sign Date Time Temp Pulse Resp B/P (MAP) Pulse Ox O2 Delivery O2 Flow Rate FiO2 06/11/24 08:00 18 99 Mechanical Ventilator+ 40 40 06/11/24 08:00 85 06/11/24 07:45 104/52 (69) 06/11/24 04:00 98.3 98.3 06/09/24 20:05 15.0 Total Intake and Output 06/10/24 06/10/24 06/11/24 15:00 23:00 07:00 Intake Total 139 ml 596 ml 740 ml Output Total 0 ml 200 ml Balance 139 ml 596 ml 540 ml medications Current Medications Medications Dose Ordered Sig/[place] Route Start Time Stop Time Status Last Admin Dose Admin Midazolam HCl 50 ml @ 1 mls/hr Q24H IV 05/28/24 21:15 06/11/24 00:07 4 MLS/HR Albuterol 2.5 mg Q6HPRN PRN NEB 05/29/24 00:00 06/11/24 06:00 2.5 MG Fentanyl Citrate 250 ml @ 2.5 mls/hr Q24H IV 05/29/24 01:15 06/10/24 04:40 2.5 MLS/HR Pantoprazole Sodium 40 mg BID IV 05/29/24 22:00 06/10/24 21:28 40 MG Norepinephrine Bitartrate 250 ml @ 3.75 mls/hr Q24H IV 05/29/24 11:30 06/03/24 14:05 3.75 MLS/HR Enteral Nutritional Formula 1,000 ml 30ML/HR GT 05/30/24 11:00 06/05/24 18:57 1,000 ML Linezolid 300 ml @ 150 mls/hr Q12HR IV 05/31/24 10:00 06/10/24 21:29 150 MLS/HR Metoprolol Tartrate 50 mg BID PO 06/02/24 10:45 06/10/24 21:30 50 MG Diagnostic Test (Pha) 1 strip Q6HR 06/02/24 12:00 06/11/24 05:24 1 STRIP Insulin Human Regular Q6HR SC 06/02/24 12:00 Dextrose 50 ml UD PRN IV 06/02/24 10:45 Hydralazine HCl 10 mg Q4HPRN PRN IV 06/03/24 15:15 06/10/24 01:03 10 MG Dexmedetomidine HCl 400 mcg/ Dextrose 100 ml @ 3.825 mls/ hr Q24H IV 06/05/24 15:30 06/08/24 08:53 3.825 MLS/HR Heparin Sodium (Porcine) 4,000 units PRN PRN IV 06/07/24 09:00 Hydralazine HCl 100 mg Q8HR PO 06/07/24 14:00 06/11/24 05:24 100 MG Meropenem 50 ml @ 17 mls/hr Q12H IV 06/08/24 19:00 06/11/24 06:39 17 MLS/HR Acetylcysteine 100 mg Q6HR NEB 06/09/24 18:00 06/11/24 06:00 100 MG Amlodipine Besylate 10 mg DAILY PO 06/10/24 10:00 Enoxaparin Sodium 40 mg DAILY SC 06/10/24 10:00 UNV Enoxaparin Sodium 30 mg DAILY SC 06/10/24 10:00 06/10/24 15:17 30 MG Examination: LUNGS:Normal, CVS:Normal, MSK:Normal laboratory and microbiology Laboratory Tests 06/11/24 03:02 Test 06/11/24 03:02 Range/Units Serum Glucose 82 74-106 mg/dL Microbiology Date/Time Source Procedure Growth Status 06/09/24 18:54 Blood Blood Culture - Preliminary NO GROWTH AFTER 24 HOURS OF INCUBATION. Resulted 05/30/24 11:45 Bronchial Washings Gram Stain - Final Complete 05/30/24 11:45 Respiratory Culture - Final Enterobacter cloacae Methicillin Resistant S.aureus Complete 05/30/24 11:45 Pleural Fluid Gram Stain - Final Complete 05/30/24 11:45 Pleural Fluid Body Fluid Culture - Final Complete 05/29/24 12:15 Nose MRSA Screen - Final Complete 05/28/24 22:36 Urine - Catheterized Urine Culture - Final Enterobacter cloacae Escherichia coli Enterococcus faecalis - VRE Complete Problem List/Assessment/Plan Problem List/Assessment/Plan Acute kidney injury superimposed on chronic kidney disease stage 4, oliguric requiring initiation of hemodialysis D Acute respiratory failure, s/p extubation Anemia suspected due to low blood loss s/p PRBC Septic shock Hypernatremia Hypokalemia Peripheral arterial disease Right above knee amputation Metabolic acidosis Chronic urinary retention MRSA bacteremia Recommendations Hemodialysis tomorrow Epogen 42995 IV post hemodialysis Rubio catheter Strict I&Os KCL replacement IV pressor for blood pressure support IV antibiotic per ID consult Radiology for tunneled hemodialysis catheter when the blood culture negative for 72 hours We will continue to follow Plan discussed with: Other (Nurse) My Orders My Orders Orders - DAVID TORRES MD Procedure Category Date Status Time * Radiologist Consult CONS 06/11/24 Transmitted 08:00 Dietary Evaluation Review Comments: 1) If GI is assessible consider Jevity 1.2 @ 60 ml/hr x24 hrs goal rate as tolerated 2) If pt remains NPO >7 days consider TPN to meet at least 75% of estimated needs 3) Advance pt diet when medically feasible to a Cardiac/Renal Specific K2,2gmNA,low phos,60g Pro diet modified per [employer] C[employer]TER recommendations 4) Continue current plan of care Expected Outcomes/Goals: 1) Pt to receive adequate nutrition support 2) Pt diet to advance CC Plasma Assessment Blood Product Administration S: [id number] DAVID TORRES MD Jun 11, 2024 09:52
[2024-06-11] MEDS ORDERED: BENZOCAINE (DENTAL) 20 % SPRAY 60ML MT ONE (10:10)
[2024-06-11] MEDS ORDERED: LIDOCAINE 2%HCL (LOCAL ANESTH.) INJ 20ML MDV ONE ×2 (10:11→10:17)
[2024-06-11] MEDS ORDERED: EPINEPHrine HCL 1 MG/1 ML AMP ONE (10:12)
[2024-06-11] MEDS ORDERED: GLYCOPYRROLATE 0.2 MG/ML 1ML VIAL ONE (10:13)
[2024-06-11] MEDS ORDERED: LIDOCAINE HCL 2% TOP JELLY 5ML TOP ONE (10:13)
[2024-06-11] MEDS ORDERED: MIDAZOLAM HCL 5 MG/ML-1ML VIAL ONE (10:14)
[2024-06-11] MEDS ORDERED: fentaNYL CITRATE 100 MCG/2 ML VL ONE (10:15)
[2024-06-11] MEDS ORDERED: NALOXONE HCL 0.4 MG/ML VIAL ONE (10:19)
[2024-06-11] MEDS ORDERED: FLUMAZENIL 0.1 MG/ML INJ 10ML MDV IV ONE (10:19)
[2024-06-11 12:01] LABS: INR 1.11 (0.9-1.15); Partial Thromboplastin Time 40.4 SEC (24.5-34.5); Prothrombin Time 11.7 sec (9.3-11.8)
--- NOTE | 2024-06-11 14:36 | DVHNC2 ---
Other Procedure Procedure Bronchoscopy Operative Note Procedure Performed: 1. Flexible Bronchoscopy 2. Left lower lobe bronchial washing 3. Right lower lobe bronchial washing Anesthesia/Medication: Patient intubated and sedated Preoperative Diagnosis: Pneumonia Postoperative Diagnosis: Same Estimated Blood Loss: Less than 10 ml Consent: The risk, benefits, and alternatives of bronchoscopy were discussed with the patients who expressed understanding and agreed to proceed. Indications: Findings: No significant endobronchial lesions or abnormalities were seen. Description of the Procedure: Bronchoscope was introduced through the ET tube the bronchoscope was then inserted into the subglottic area, followed by the trachea, bilateral mainstem bronchi, and to the level of the subsegmental bronchi. There was no evidence of intrinsic or extrinsic compression. I 1st did right lower lobe bronchial washing. I could see mucus plug in the left lower lobe which I suctioned out. I did left lower lobe bronchial washings. At this point, there was no evidence of any ongoing bleeding. The bronchoscope was then withdrawn and the patient was allowed to recover. Date of Service: Jun 11, 2024 Billing Provider: MARK RODRÍGUEZ MD Common Visit Codes: PROCEDURE ONLY Procedure Codes: [id number] MARK RODRÍGUEZ MD Jun 11, 2024 14:36
--- NOTE | 2024-06-11 20:56 | DVHPNRES ---
Progress Note Date Seen: Jun 11, 2024 Resident Creating Document: DYLAN GOMEZ RILEY Has the PT tested + for MRSA If YES, has PT been informed?: Yes Medical Necessity Reason Pt with a Central, PICC or Fol: Yes The following are medically ne: Central Line, Rubio Catheter Reason for rubio catheter: Strict I&O Subjective Review of Systems Patient seen and examined at the bedside. Patient is sedated and on mechanical ventilation. Review of systems could not obtain. Objective vital signs Vital Sign Date Time Temp Pulse Resp B/P (MAP) Pulse Ox O2 Delivery O2 Flow Rate FiO2 06/11/24 20:11 76 18 118/60 (79) 99 35 06/11/24 18:00 Mechanical Ventilator+ 06/11/24 16:00 98.0 98.0 06/09/24 20:05 15.0 Total Intake and Output 06/10/24 06/10/24 06/11/24 15:00 23:00 07:00 Intake Total 139 ml 596 ml 766 ml Output Total 0 ml 200 ml Balance 139 ml 596 ml 566 ml medications Current Medications Medications Dose Ordered Sig/[place] Route Start Time Stop Time Status Last Admin Dose Admin Midazolam HCl 50 ml @ 1 mls/hr Q24H IV 05/28/24 21:15 06/11/24 14:42 4 MLS/HR Albuterol 2.5 mg Q6HPRN PRN NEB 05/29/24 00:00 06/11/24 11:44 2.5 MG Fentanyl Citrate 250 ml @ 2.5 mls/hr Q24H IV 05/29/24 01:15 06/10/24 04:40 2.5 MLS/HR Pantoprazole Sodium 40 mg BID IV 05/29/24 22:00 06/11/24 10:57 40 MG Norepinephrine Bitartrate 250 ml @ 3.75 mls/hr Q24H IV 05/29/24 11:30 06/03/24 14:05 3.75 MLS/HR Enteral Nutritional Formula 1,000 ml 30ML/HR GT 05/30/24 11:00 06/05/24 18:57 1,000 ML Metoprolol Tartrate 50 mg BID PO 06/02/24 10:45 06/11/24 14:43 50 MG Diagnostic Test (Pha) 1 strip Q6HR 06/02/24 12:00 06/11/24 18:00 1 STRIP Insulin Human Regular Q6HR SC 06/02/24 12:00 Dextrose 50 ml UD PRN IV 06/02/24 10:45 Hydralazine HCl 10 mg Q4HPRN PRN IV 06/03/24 15:15 06/10/24 01:03 10 MG Dexmedetomidine HCl 400 mcg/ Dextrose 100 ml @ 3.825 mls/ hr Q24H IV 06/05/24 15:30 06/08/24 08:53 3.825 MLS/HR Heparin Sodium (Porcine) 4,000 units PRN PRN IV 06/07/24 09:00 Hydralazine HCl 100 mg Q8HR PO 06/07/24 14:00 06/11/24 05:24 100 MG Meropenem 50 ml @ 17 mls/hr Q12H IV 06/08/24 19:00 06/11/24 19:22 17 MLS/HR Acetylcysteine 100 mg Q6HR NEB 06/09/24 18:00 06/11/24 11:44 100 MG Amlodipine Besylate 10 mg DAILY PO 06/10/24 10:00 06/11/24 14:43 10 MG Enoxaparin Sodium 40 mg DAILY SC 06/10/24 10:00 UNV Enoxaparin Sodium 30 mg DAILY SC 06/10/24 10:00 06/11/24 14:44 30 MG Examination General Appearance: Patient is sedated and on mechanical ventilation. RASS score -4 open to painful stimuli HEENT: Atraumatic, PERRLA, EOMI, Mucous membrane moist/pink Respiratory: Clear to auscultation, Normal air movement Cardiovascular: Regular rate, Normal S1, Normal S2, No murmurs, no chest wall tenderness Abdominal: Normal bowel sounds, Soft, No tenderness, No hepatospenomegaly, No masses Extremities: No clubbing, No cyanosis, No edema, Normal pulses, No tenderness/swelling Skin: No rashes, No breakdown, No significant lesion laboratory and microbiology Laboratory Tests 06/11/24 03:02 Test 06/11/24 03:02 Range/Units Serum Glucose 82 74-106 mg/dL Microbiology Date/Time Source Procedure Growth Status 06/10/24 04:52 Trachea Gram Stain - Final Resulted 06/10/24 04:52 Trachea Respiratory Culture - Preliminary Resulted 06/09/24 18:54 Blood Blood Culture - Preliminary NO GROWTH AFTER 48 HOURS OF INCUBATION. Resulted 05/30/24 11:45 Bronchial Washings Gram Stain - Final Complete 05/30/24 11:45 Respiratory Culture - Final Enterobacter cloacae Methicillin Resistant S.aureus Complete 05/30/24 11:45 Pleural Fluid Gram Stain - Final Complete 05/30/24 11:45 Pleural Fluid Body Fluid Culture - Final Complete 05/28/24 22:36 Urine - Catheterized Urine Culture - Final Enterobacter cloacae Escherichia coli Enterococcus faecalis - VRE Complete Labs and/or images reviewed: Labs reviewed by me, Image(s) reviewed by me Problem List/Assessment/Plan Problem List/Assessment/Plan NEURO: Acute metabolic encephalopathy likely due to sepsis Patient is sedated and on mechanical ventilation, RASS scores -4, opens eyes to painful stimuli History of seizure during last admission(1 month back) used Keppra for 1 week Consulted neurology for the requirement of antiepileptic CARDIOVASCULAR: Hypertension Continue home medication, injection hydralazine 10 mg q.6 hours as needed PULMONARY: Acute Hypoxic Respiratory Failure likely due to pneumonia Septic shock likely due to pneumonia, improved Pneumonia likely due to Gram-positive Gram-negative Patient is sedated and on the mechanical ventilation with a setting of (VT 500, RR 18, peep 5, FiO2 35%) ABGs shows normal values Sputum culture from bronchoalveolar lavage from 05/24/24 shows MRSA, Enterobacter cloacae Blood culture from the 06/02/24 shows Staphylococcus epidermidis , Staph hominis Repeat culture from 06/09/2024 shows no growth within 48 hours Bronchoscopy performed, there was some thin mucus secretion on bilateral side, bronchial lavage of right lower lobe and left lower lobe was performed and the sample was sent for the culture sensitivity, Gram stain and AFB Stopped in linezolid, as given for 11 days Continue meropenem Check flu and COVID 19 MRSA nares screening negative Continue N-acetylcysteine Breathing treatment q.6 hours p.r.n. GI GI ppx: Protonix Hepatitis-C virus antibody positive Stool occult blood negative RENAL: FROYLAN on CKD grade 4 Nephrology on the board, perform hemodialysis yesterday, took out 3 L Hypernatremia, improved Hypokalemia, improved Hyperkalemia, improved UTI, urinalysis shows UTI picture Urine culture from 05/28/2024 shows Enterobacter coli C, E coli, Enterococcus faecalis Repeat urine culture Continue meropenem Status post right lower limb amputation, above the knee likely due to PAD Decubitus ulcer There are multiple grade 3-4 sacral ulcers HEME Severe anemia, transfused 3 pack of red blood cells SKIN Possible keloid There is a growth on the left shoulder, per son the has been present for several years Follow up on outpatient basis LINES/DRAINS/ACCESS: ETT, intubated on 05/28/2024 IV access Hemodialysis catheter on left internal jugular vein, placed on 06/03/2024 Right internal jugular vein CBC Suprapubic catheter, changed on 06/02/2020 Versed 4 Fentanyl 50 No pressor DIET: Nepro 30 mL/hour DVT prophylaxis Lovenox CODE STATUS: Full code Patient status updated with the son on the phone, also consulted regarding finding of the bronchoscopy, we will discuss option of tracheostomy tomorrow at am Critical time spent more than 35 minutes, including patient care, chart review and updating the family. excluding any procedures. Case discussed with Dr. Ashby Plan discussed with: Son, Other (RN) My Orders My Orders Orders - DYLAN GOMEZ RESDIENT Procedure Category Date Status Time Full Code SUZAN 06/10/24 In Process 21:46 Code Status CODE 06/10/24 Transmitted 21:46 Bronchosc Dx W/W/O BD 06/11/24 Transmitted Fluor&Wash 13:08 Respiratory Culture SUZANNA 06/11/24 In Process W/ Gs 13:08 AFB PATHOLOGY 06/11/24 Transmitted Dwfxy-[id number]-Jeaqrtva 14:36 Complete Blood Count LAB 06/12/24 Verified 04:00 Comprehensive LAB 06/12/24 Verified Metabolic Panel 04:00 Chest Xray 1 View XY 06/12/24 Logged 04:00 Abg W/ Co-Ox RT 06/12/24 Logged 04:00 Dietary Evaluation Review Comments: 1) If GI is assessible consider Jevity 1.2 @ 60 ml/hr x24 hrs goal rate as tolerated 2) If pt remains NPO >7 days consider TPN to meet at least 75% of estimated needs 3) Advance pt diet when medically feasible to a Cardiac/Renal Specific K2,2gmNA,low phos,60g Pro diet modified per HELP DESK INTERN recommendations 4) Continue current plan of care Expected Outcomes/Goals: 1) Pt to receive adequate nutrition support 2) Pt diet to advance CC Plasma Assessment Blood Product Administration S: [id number] Date of Service: Jun 11, 2024 Billing Provider: MARK ASHBY MD Common Visit Codes: [id number] CARE 30-74 MIN DYLAN GOMEZ [facility] Jun 11, 2024 20:56 MARK ASHBY MD Jun 12, 2024 13:52
[2024-06-12] VITALS (104 sets, daily range): BP systolic 88–178; BP diastolic 45–79; PULSE 80–105; RESP 12–100; TEMP 98.3–99.7; O2SAT 93–100
[2024-06-12 04:06] LABS: Eosinophils # (auto) 0.4 10 ^3/uL (0-0.8); Lymphocytes # (auto) 0.7 10 ^3/uL (0.4-5.4); Monocytes # (auto) 0.5 10 ^3/uL (0-1.3); Red Blood Cells 2.15 10^6/uL (4.5-5.90); White Blood Cell 5.5 10^3/uL (4.4-10.8)
[2024-06-12 04:10] LABS: Basophils # (auto) 0 10 ^3/uL (0-0.2); Basophils % (auto) 0.8 % (0.0-2.0); Eosinophils % (auto) 7.5 % (0.0-7.0); Hematocrit 20.4 % (41.0-53.0); Mean Corpuscular Hemoglobin 31.8 pg (28.0-32.0); Mean Corpuscular Hgb Conc. 33.6 g/dL (32.0-36.0); Mean Corpuscular Volume 94.8 fL (80.0-100.0); Neutrophils # (auto) 3.8 10 ^3/uL (1.6-8.6); Neutrophils % (auto) 69.7 % (37.0-80.0); Nucleated Red Blood Cells % 0.1 %; Platelet Count (auto) 99 10^3/uL (140-450); Red Cell Distribution Width 15.4 % (11.8-14.3)
[2024-06-12 04:26] LABS: Alkaline Phosphatase 86 U/L (46-116); Anion Gap 9 (5-15); BUN/Creatinine Ratio 7.9 (10.0-20.0); Calcium 8.8 mg/dL (8.7-10.4); Carbon Dioxide 26 mmol/L (20-31); Chloride 103 mmol/L (98-107); Glucose 75 mg/dL (74-106); Potassium 3.6 mmol/L (3.5-5.1); Sodium 138 mmol/L (136-145)
[2024-06-12 04:28] LABS: Alanine Aminotransferase < 9 U/L (7-40); Albumin 2.3 g/dL (3.2-4.8); Aspartate Aminotransferase 11 U/L (13-40); Bilirubin, Total < 0.2 mg/dL (0.2-1.0); Blood Urea Nitrogen 31 mg/dL (9-23); Total Protein 5.1 g/dL (5.7-8.2)
[2024-06-12 04:35] LABS: Hemoglobin 6.8 g/dL (13.5-17.5)
--- NOTE | 2024-06-12 05:20 | DVH ---
CHEST RADIOGRAPH Indication: Pneumonia Technique: Single frontal view of the chest was obtained Comparison: XY CHEST XRAY 1 VIEW on DOS: 06/11/24, XY CHEST PORTABLE on DOS: 06/10/24, XY CHEST SHABNAM BLE on DOS: 06/10/24 IMPRESSION: Support lines and tubes appear unchanged in satisfactory in position. There is likely a small left pl eural effusion with [id number] pulmonary vascular congestion. No pneumothorax.
[2024-06-12 08:03] LABS: Base Excess 3.9 mmol/L (-2.0-3.0)
[2024-06-12] MEDS: SODIUM CHL 0.9% 1000 ML BAG XX ONE (09:31)
[2024-06-12] MEDS: levETIRAcetam 500 mg/100ml 100 ML IV SCH (09:42)
--- NOTE | 2024-06-12 12:43 | DVHEEG2 ---
Neurology EEG Procedural Note Procedural Note Patient status: Sedated Diagnosis: Acute encephalopathy rule out seizure. Conditions of recording: This is an 18 channel EEG recording with electrode placement following guidelines as per the 10/20 international classification. Photic stimulation was performed as activating procedure. Technical summary: The predominant activity throughout the entire recording appeared to be admixed low-frequency reactive theta and delta activity, which appeared symmetrical. No definite epileptiform discharges or electrographic seizures were seen. Photic stimulation did not provide any further abnormalities. Impression: This appears to be abnormal EEG recording consistent with the presence of a diffuse nonspecific encephalopathic state. Clinical correlation is imperative GRISEL QUIÑONES MD Jun 12, 2024 12:43
--- NOTE | 2024-06-12 14:09 | DVHPN2 ---
Progress Note Date Seen: Jun 12, 2024 Has the PT tested + for MRSA If YES, has PT been informed?: Yes Medical Necessity Reason Pt with a Central, PICC or Fol: Yes The following are medically ne: Central Line, Rubio Catheter Reason for rubio catheter: Strict I&O Subjective Patient reports: Other (Hemoglobin dropped) Review of Systems: Deferred Objective vital signs Vital Sign Date Time Temp Pulse Resp B/P (MAP) Pulse Ox O2 Delivery O2 Flow Rate FiO2 06/12/24 13:35 99.7 84 18 133/66 99.7 06/12/24 13:15 99 06/12/24 12:00 35 06/12/24 12:00 Mechanical Ventilator+ Total Intake and Output 06/11/24 06/11/24 06/12/24 15:00 23:00 07:00 Intake Total 106 ml 412 ml 425 ml Output Total 25 ml 15 ml Balance 106 ml 387 ml 410 ml medications Current Medications Medications Dose Ordered Sig/[place] Route Start Time Stop Time Status Last Admin Dose Admin Midazolam HCl 50 ml @ 1 mls/hr Q24H IV 05/28/24 21:15 06/12/24 12:24 4 MLS/HR Albuterol 2.5 mg Q6HPRN PRN NEB 05/29/24 00:00 06/12/24 13:12 2.5 MG Fentanyl Citrate 250 ml @ 2.5 mls/hr Q24H IV 05/29/24 01:15 06/11/24 21:36 5 MLS/HR Pantoprazole Sodium 40 mg BID IV 05/29/24 22:00 06/12/24 09:32 40 MG Norepinephrine Bitartrate 250 ml @ 3.75 mls/hr Q24H IV 05/29/24 11:30 06/03/24 14:05 3.75 MLS/HR Enteral Nutritional Formula 1,000 ml 30ML/HR GT 05/30/24 11:00 06/12/24 00:39 1,000 ML Metoprolol Tartrate 50 mg BID PO 06/02/24 10:45 06/12/24 09:33 50 MG Diagnostic Test (Pha) 1 strip Q6HR 06/02/24 12:00 06/12/24 06:00 1 STRIP Insulin Human Regular Q6HR SC 06/02/24 12:00 Dextrose 50 ml UD PRN IV 06/02/24 10:45 Hydralazine HCl 10 mg Q4HPRN PRN IV 06/03/24 15:15 06/10/24 01:03 10 MG Dexmedetomidine HCl 400 mcg/ Dextrose 100 ml @ 3.825 mls/ hr Q24H IV 06/05/24 15:30 06/08/24 08:53 3.825 MLS/HR Heparin Sodium (Porcine) 4,000 units PRN PRN IV 06/07/24 09:00 Hydralazine HCl 100 mg Q8HR PO 06/07/24 14:00 06/12/24 05:55 100 MG Meropenem 50 ml @ 17 mls/hr Q12H IV 06/08/24 19:00 06/12/24 07:18 17 MLS/HR Acetylcysteine 100 mg Q6HR NEB 06/09/24 18:00 06/12/24 13:12 100 MG Amlodipine Besylate 10 mg DAILY PO 06/10/24 10:00 06/12/24 09:59 10 MG Enoxaparin Sodium 40 mg DAILY SC 06/10/24 10:00 UNV Levetiracetam 100 ml @ 400 mls/hr DAILY IV 06/12/24 10:00 06/12/24 10:24 400 MLS/HR Examination: GENERAL:Abnormal, LUNGS:Abnormal, MSK:Abnormal, SKIN:Abnormal, NEURO:Abnormal laboratory and microbiology Laboratory Tests 06/12/24 03:18 Test 06/12/24 03:18 Range/Units Serum Glucose 75 74-106 mg/dL Microbiology Date/Time Source Procedure Growth Status 06/11/24 16:06 Bronchial Washings Gram Stain Pending Resulted 06/11/24 16:06 Bronchial Washings Respiratory Culture - Preliminary Resulted 06/10/24 04:52 Trachea Gram Stain - Final Resulted 06/10/24 04:52 Trachea Respiratory Culture - Preliminary Resulted 06/09/24 18:54 Blood Blood Culture - Preliminary NO GROWTH AFTER 48 HOURS OF INCUBATION. Resulted 05/30/24 11:45 Pleural Fluid Gram Stain - Final Complete 05/30/24 11:45 Pleural Fluid Body Fluid Culture - Final Complete 05/28/24 22:36 Urine - Catheterized Urine Culture - Final Enterobacter cloacae Escherichia coli Enterococcus faecalis - VRE Complete Problem List/Assessment/Plan Problem List/Assessment/Plan Acute kidney injury on chronic kidney disease stage 4 -> likely septic ATN needing HD Acute respiratory failure on vent Anemia suspected due to low blood loss s/p PRBC Hypernatremia Hypokalemia Metabolic acidosis Chronic urinary retention sepsis due to bacteremia recs Hemodialysis today Epogen with dialysis Cath low today both ports Next dialysis Sunday versus Sunday Plan discussed with: Other Dietary Evaluation Review Comments: 1) If GI is assessible consider Jevity 1.2 @ 60 ml/hr x24 hrs goal rate as tolerated 2) If pt remains NPO >7 days consider TPN to meet at least 75% of estimated needs 3) Advance pt diet when medically feasible to a Cardiac/Renal Specific K2,2gmNA,low phos,60g Pro diet modified per SORTER/ASSAY TECH recommendations 4) Continue current plan of care Expected Outcomes/Goals: 1) Pt to receive adequate nutrition support 2) Pt diet to advance CC Plasma Assessment Blood Product Administration S: [id number] SUKI MERINO MD Jun 12, 2024 14:09
[2024-06-12] MEDS: CATHFLO ACTIVASE (ALTEPLASE) 2 MG VIAL IV ONE (15:01)
--- NOTE | 2024-06-12 16:20 | DVH ---
Exam: CT CT AB PEL WO CON-NO ORAL OR IV History: droped HB, intra-abdominal bleeding Comparison Study: CT CHST AB PEL WO CON-NO IV/ORAL on DOS: 05/29/24, CT abdomen/ pelvis 12/21/2023 Technique: Multidetector spiral CT of the abdomen was performed from lung bases to pubic symphysis. Imaging was performed without IV contrast. Axial, coronal and sagittal multiplanar reformats were ob tained from the axial data set by the technologist. Radiation Dose : 1. Abdomen/Pelvis: CTDIvol 18.2 mGy, DLP 1033.4 mGy*cm. Findings: Evaluation of solid organs is limited due to lack of intravenous contrast use. Lung Bases: Partially visualized left-sided pleural effusion which appears at least moderate in size. Associated left basilar atelectasis. Trace right pleural effusion. Associated right basilar consol idation / atelectasis. Moderate coronary artery calcification. Liver: The liver is normal in size. No focal lesions. Gallbladder and Biliary Tree: Cholelithiasis. No evidence of pericholecystic fluid or inflammation. Spleen: Unremarkable Pancreas: Pancreas is atrophic. Adrenal Glands: Unremarkable Kidneys: Right renal atrophy. Multiple left renal hypodensities which all appear to attenuate at flui d density; however, these are poorly evaluated secondary to significant streak artifact. No evidence of hydronephrosis. Bladder: Bladder is poorly distended with a suprapubic catheter in place. Bowel: Enteric tube terminates in the stomach. Stomach is poorly distended. Small bowel and colon are normal in caliber and distribution. The colon is largely filled with fluid. Appendix is normal in ca liber and is surrounded by a small amount of ascites. Ventral abdominal wall hernia that contains non dilated loops of bowel. Ascites: Small amount perihepatic ascites. Small amount of ascites in the pelvis. Lymphadenopathy: No mesenteric, retroperitoneal or periportal lymphadenopathy. Abdominal Wall and Mesentery: Mild diffuse anasarca. Mild gynecomastia. Ventral abdominal wall hernia as above. Vasculature: The visualized abdominal aorta is normal in size and caliber. There is extensive athero sclerotic calcification of the aorta and its branches. Evaluation of abdominal and pelvic vessels is limited due to lack of intravenous contrast. Pelvic Organs: Prostate calcifications. Musculoskeletal: Posterior spinal hardware extending from T11 to L3. Mild loss of vertebral body heig ht at L1 and multiple lower thoracic levels is similar compared to prior. Moderate to advanced degene rative disc changes in the lower thoracic spine. Chronic soft tissue ulceration overlying the bilater al ischial tuberosities. Associated irregular sclerotic change within the ischial tuberosities is ch ronic and not significantly changed. Partial visualization of screws in the right femur. Associated s kin thickening overlying the inferior gluteal folds and perineal region is unchanged. IMPRESSION: Evaluation is limited secondary to lack of intravenous contrast and significant streak artifact assoc iated with the spinal hardware. 1. No evidence of intra-abdominal hemorrhage within the limitations of this exam. 2. Small volume of ascites, [id number] left pleural effusion, and mild generalized anasarca. Findings are consistent with volume overload. 3. Ventral abdominal wall hernia containing nondilated bowel. No evidence of bowel obstruction. 4. Colon is mostly filled with fluid. Correlate for diarrheal illness. 5. Cholelithiasis. 6. Right renal atrophy. Left renal cysts. 7. Left lower lobe atelectasis. Right lower lobe patchy consolidation/atelectasis. 8. Chronic wounds overlying the ischial tuberosities. Associated chronic skin thickening extending i n the perineal region. Chronic osteitis at the ischial tuberosities. 9. Extensive atherosclerosis. Radiation optimization: All CT scans at this facility use at least one of these dose optimization maritza hniques: automated exposure control mA and/or kV adjustment per patient size (includes targeted exam s where dose is matched to clinical indication) or iterative reconstruction.
--- NOTE | 2024-06-12 17:34 | DVHPNRES ---
Progress Note Date Seen: Jun 12, 2024 Resident Creating Document: DYLAN GOMEZ RILEY Has the PT tested + for MRSA If YES, has PT been informed?: Yes Medical Necessity Reason Pt with a Central, PICC or Fol: Yes The following are medically ne: Central Line, Rubio Catheter Reason for ruibo catheter: Strict I&O Subjective Review of Systems Patient seen and examined at the bedside. Patient is sedated and on mechanical ventilation. Review of systems could not obtain. Patient reports: No new complaints Changes from previous H/P or p: No Changes Objective vital signs Vital Sign Date Time Temp Pulse Resp B/P (MAP) Pulse Ox O2 Delivery O2 Flow Rate FiO2 06/12/24 16:45 89 18 178/64 (102) 99 06/12/24 16:15 98.9 98.9 06/12/24 16:14 35 06/12/24 16:00 Mechanical Ventilator+ Total Intake and Output 06/11/24 06/11/24 06/12/24 14:59 22:59 06:59 Intake Total 123 ml 412 ml 425 ml Output Total 25 ml 15 ml Balance 123 ml 387 ml 410 ml medications Current Medications Medications Dose Ordered Sig/[place] Route Start Time Stop Time Status Last Admin Dose Admin Midazolam HCl 50 ml @ 1 mls/hr Q24H IV 05/28/24 21:15 06/12/24 12:24 4 MLS/HR Albuterol 2.5 mg Q6HPRN PRN NEB 05/29/24 00:00 06/12/24 13:12 2.5 MG Fentanyl Citrate 250 ml @ 2.5 mls/hr Q24H IV 05/29/24 01:15 06/11/24 21:36 5 MLS/HR Pantoprazole Sodium 40 mg BID IV 05/29/24 22:00 06/12/24 09:32 40 MG Norepinephrine Bitartrate 250 ml @ 3.75 mls/hr Q24H IV 05/29/24 11:30 06/03/24 14:05 3.75 MLS/HR Enteral Nutritional Formula 1,000 ml 30ML/HR GT 05/30/24 11:00 06/12/24 00:39 1,000 ML Metoprolol Tartrate 50 mg BID PO 06/02/24 10:45 06/12/24 09:33 50 MG Diagnostic Test (Pha) 1 strip Q6HR 06/02/24 12:00 06/12/24 12:00 1 STRIP Insulin Human Regular Q6HR SC 06/02/24 12:00 Dextrose 50 ml UD PRN IV 06/02/24 10:45 Hydralazine HCl 10 mg Q4HPRN PRN IV 06/03/24 15:15 06/10/24 01:03 10 MG Heparin Sodium (Porcine) 4,000 units PRN PRN IV 06/07/24 09:00 Hydralazine HCl 100 mg Q8HR PO 06/07/24 14:00 06/12/24 15:11 100 MG Meropenem 50 ml @ 17 mls/hr Q12H IV 06/08/24 19:00 06/12/24 07:18 17 MLS/HR Acetylcysteine 100 mg Q6HR NEB 06/09/24 18:00 06/12/24 13:12 100 MG Amlodipine Besylate 10 mg DAILY PO 06/10/24 10:00 06/12/24 09:59 10 MG Enoxaparin Sodium 40 mg DAILY SC 06/10/24 10:00 UNV Levetiracetam 100 ml @ 400 mls/hr DAILY IV 06/12/24 10:00 06/12/24 10:24 400 MLS/HR Examination General Appearance: Patient is sedated and on mechanical ventilation. RASS score -5 HEENT: Atraumatic, PERRLA, EOMI, Mucous membrane moist/pink Respiratory: Clear to auscultation, Normal air movement Cardiovascular: Regular rate, Normal S1, Normal S2, No murmurs, no chest wall tenderness Abdominal: Normal bowel sounds, Soft, No tenderness, No hepatospenomegaly, No masses Extremities: No clubbing, No cyanosis, No edema, Normal pulses, No tenderness/swelling Skin: No rashes, No breakdown, No significant lesion laboratory and microbiology Laboratory Tests 06/12/24 03:18 Test 06/12/24 03:18 Range/Units Serum Glucose 75 74-106 mg/dL Microbiology Date/Time Source Procedure Growth Status 06/11/24 16:06 Bronchial Washings Gram Stain Pending Resulted 06/11/24 16:06 Bronchial Washings Respiratory Culture - Preliminary Resulted 06/10/24 04:52 Trachea Gram Stain - Final Resulted 06/10/24 04:52 Trachea Respiratory Culture - Preliminary Resulted 06/09/24 18:54 Blood Blood Culture - Preliminary NO GROWTH AFTER 48 HOURS OF INCUBATION. Resulted 05/30/24 11:45 Pleural Fluid Gram Stain - Final Complete 05/30/24 11:45 Pleural Fluid Body Fluid Culture - Final Complete 05/28/24 22:36 Urine - Catheterized Urine Culture - Final Enterobacter cloacae Escherichia coli Enterococcus faecalis - VRE Complete Labs and/or images reviewed: Labs reviewed by me, Image(s) reviewed by me Problem List/Assessment/Plan Problem List/Assessment/Plan NEURO: Acute metabolic encephalopathy likely due to sepsis Patient is sedated and on mechanical ventilation, RASS scores -5 History of seizure during last admission(1 month back) used Keppra for 1 week Consulted neurology, recommended Keppra CARDIOVASCULAR: Hypertension Continue home medication, injection hydralazine 10 mg q.6 hours as needed PULMONARY: Acute Hypoxic Respiratory Failure likely due to pneumonia Septic shock likely due to pneumonia, improved Pneumonia likely due to Gram-positive Gram-negative Patient is sedated and on the mechanical ventilation with a setting of (VT 500, RR 18, peep 5, FiO2 35%) ABGs shows normal values Sputum culture from bronchoalveolar lavage from 05/24/24 shows MRSA, Enterobacter cloacae Blood culture from the 06/02/24 shows Staphylococcus epidermidis , Staph hominis Repeat culture from 06/09/2024 shows no growth within 48 hours Bronchoscopy performed, there was some thin mucus secretion on bilateral side, bronchial lavage of right lower lobe and left lower lobe was performed and the sample was sent for the culture sensitivity, Gram stain and AFB Stopped in linezolid, as given for 11 days Continue meropenem MRSA nares screening negative Continue N-acetylcysteine Breathing treatment q.6 hours p.r.n. GI GI ppx: Protonix b.i.d. Hepatitis-C virus antibody positive Repeat stool occult blood test CT abdominopelvic without contrast Consulted surgery refer the tracheostomy Consulted GI for the PEG tube RENAL: FROYLAN on CKD grade 3a Nephrology on the board Hypernatremia, improved Hypokalemia, improved Hyperkalemia, improved UTI, urinalysis shows UTI picture Urine culture from 05/28/2024 shows Enterobacter coli C, E coli, Enterococcus faecalis Repeat urine culture Continue meropenem Status post right lower limb amputation, above the knee likely due to PAD Decubitus ulcer There are multiple grade 3-4 sacral ulcers HEME Severe anemia, transfused 3 pack of red blood cells Last night, Hg dropped to 6.8, 1 pt of blood has been transfused SKIN Possible keloid There is a growth on the left shoulder, per son the has been present for several years Follow up on outpatient basis LINES/DRAINS/ACCESS: ETT, intubated on 05/28/2024 IV access Hemodialysis catheter on left internal jugular vein, placed on 06/03/2024 Right internal jugular vein CBC Suprapubic catheter, changed on 06/02/2020 Versed 4 Fentanyl 50 No pressor DIET: Nepro 30 mL/hour DVT prophylaxis Lovenox CODE STATUS: Full code Patient's status discussed with patient's son, and denisseon, goal of care including comfort measure, tracheostomy and PEG tube were discussed with the family. As per patient's son's best planned for the tracheostomy and PEG tube. Critical time spent more than 35 minutes, including patient care, chart review and updating the family. excluding any procedures. Case discussed with Dr. Ashby Plan discussed with: Son, Other (Stepson and RN) My Orders My Orders Orders - DYLAN GOMEZ RESDILONNIE Procedure Category Date Status Time * Surgical Consult CONS 06/12/24 Transmitted * Gi [facility] Web Development Director CONS 06/12/24 Transmitted 13:02 Ct Ab Pel Wo Con-No CT 06/12/24 Resulted Oral Or Iv 13:02 Dietary Evaluation Review Comments: 1) If GI is assessible consider Jevity 1.2 @ 60 ml/hr x24 hrs goal rate as tolerated 2) If pt remains NPO >7 days consider TPN to meet at least 75% of estimated needs 3) Advance pt diet when medically feasible to a Cardiac/Renal Specific K2,2gmNA,low phos,60g Pro diet modified per [employer]CH HELPER recommendations 4) Continue current plan of care Expected Outcomes/Goals: 1) Pt to receive adequate nutrition support 2) Pt diet to advance CC Plasma Assessment Blood Product Administration S: [id number] Date of Service: Jun 12, 2024 Billing Provider: MARK ASHBY MD Common Visit Codes: [id number] CARE 30-74 MIN DYLAN GOMEZ RESDIENT Jun 12, 2024 17:34 MARK ASHBY MD Jun 13, 2024 13:18
[2024-06-12] MEDS: EPOETIN ALFA-EPBX 10,000 UNIT/1ML VIAL SC ONE (21:38)
[2024-06-13] VITALS (112 sets, daily range): BP systolic 100–179; BP diastolic 53–100; PULSE 69–107; RESP 8–32; TEMP 97–99.3; O2SAT 93–100
[2024-06-13 03:57] LABS: Basophils # (auto) 0.1 10 ^3/uL (0-0.2); Eosinophils # (auto) 0.4 10 ^3/uL (0-0.8); Hemoglobin 8.4 g/dL (13.5-17.5); Monocytes # (auto) 0.7 10 ^3/uL (0-1.3); Neutrophils # (auto) 3.4 10 ^3/uL (1.6-8.6); Red Cell Distribution Width 16.2 % (11.8-14.3)
[2024-06-13 03:59] LABS: Basophils % (auto) 1.2 % (0.0-2.0); Eosinophils % (auto) 7.1 % (0.0-7.0); Hematocrit 25.2 % (41.0-53.0); Lymphocytes # (auto) 0.9 10 ^3/uL (0.4-5.4); Lymphocytes % (auto) 16.3 % (10.0-50.0); Mean Corpuscular Hemoglobin 31.2 pg (28.0-32.0); Mean Corpuscular Hgb Conc. 33.4 g/dL (32.0-36.0); Mean Corpuscular Volume 93.3 fL (80.0-100.0); Monocytes % (auto) 13.5 % (0.0-12.0); Neutrophils % (auto) 61.9 % (37.0-80.0); Nucleated Red Blood Cells % 0.1 %; Platelet Count (auto) 95 10^3/uL (140-450); White Blood Cell 5.5 10^3/uL (4.4-10.8)
[2024-06-13 04:07] LABS: INR 1.09 (0.9-1.15); Partial Thromboplastin Time 37.1 SEC (24.5-34.5); Prothrombin Time 11.5 sec (9.3-11.8)
[2024-06-13 04:18] LABS: Alkaline Phosphatase 101 U/L (46-116); Anion Gap 10 (5-15); Aspartate Aminotransferase 15 U/L (13-40); BUN/Creatinine Ratio 7.6 (10.0-20.0); Blood Urea Nitrogen 22 mg/dL (9-23); Calcium 8.7 mg/dL (8.7-10.4); Carbon Dioxide 26 mmol/L (20-31); Chloride 105 mmol/L (98-107); Glucose 80 mg/dL (74-106); Magnesium 1.9 mg/dL (1.6-2.6); Potassium 3.8 mmol/L (3.5-5.1); Sodium 141 mmol/L (136-145)
[2024-06-13 04:31] LABS: Alanine Aminotransferase < 9 U/L (7-40); Albumin 2.5 g/dL (3.2-4.8); Bilirubin, Total < 0.2 mg/dL (0.2-1.0); Total Protein 5.6 g/dL (5.7-8.2)
--- NOTE | 2024-06-13 05:59 | DVH ---
CHEST RADIOGRAPH Indication: Pneumonia Technique: Single frontal view of the chest was obtained Comparison: XY CHEST XRAY 1 VIEW on DOS: 06/12/24 FINDINGS: Lines and Tubes: The endotracheal tube terminates 4.6 cm above the chacho. Right central venous jared ter terminates in the superior vena cava. Left central venous catheter terminates in the superior ve na cava. The enteric tube courses below the left hemidiaphragm and the tip extends outside the field of view. Lungs: There is a left pleural effusion. Pulmonary congestion similar to prior study. Pleura: No effusion. No pneumothorax. Cardiomediastinal contours: Unremarkable Bones: No acute osseous abnormality. IMPRESSION: 1. Stable position of the support lines and tubes. 2. Pulmonary congestion. Left pleural effusion.
[2024-06-13] MEDS: DEXTROSE (50%) 50ML SYRG IV PRN (06:08)
[2024-06-13 06:57] LABS: Base Excess 2.5 mmol/L (-2.0-3.0)
[2024-06-13] MEDS ORDERED: fentaNYL CITRATE 100 MCG/2 ML VL ONE (13:09)
[2024-06-13] MEDS ORDERED: MIDAZOLAM HCL 2MG/2ML 2ml VIAL (1mg/ml) ONE ×2 (13:09→13:29)
[2024-06-13] MEDS ORDERED: HYDROmorphone HCL 2 MG/ML VL/or syr ONE (13:09)
[2024-06-13] MEDS ORDERED: PROPOFOL 10 MG/ML 20 ML IV ONE (13:10)
--- NOTE | 2024-06-13 14:19 | DVHINCON2 ---
Date of service: Jun 13, 2024 History of Present Illness 69-year-old male with a history of multiple medical problems currently intubated on the ventilator consulted for tracheostomy tube placement. Past Medical History CHF. COPD. CVA. Liver disease. ID. Chronic kidney disease. Hypertension. Past Surgical History Right AKA. Partial left foot amputation. Family History: Cerebrovascular accident (CVA) G8 FATHER Family History Noncontributory. Allergies: Coded Allergies: Meperidine (Verified Allergy, Unknown, 04/18/23) Home Meds Active Scripts Sevelamer Hydrochloride (Renagel) 800 Mg Tab, 800 MG PO TIDWM for 30 Days, #90 TAB Prov:DORA DELGADILLO MD 04/03/24 Sodium Bicarbonate (Sodium Bicarbonate) 650 Mg Tab, 650 MG PO QID for 14 Days, #56 TAB Prov:DORA DELGADILLO MD 04/03/24 Levetiracetam (KEPPRA TABLET) 500 Mg Tb, 750 MG PO BID for 30 Days, #90 TAB Prov:DORA DELGADILLO MD 04/03/24 Carvedilol (COREG) 3.125 Mg Tab, 6.25 MG PO Q12HR, #60 TAB Prov:MALCOLM WILLOUGHBY MD 08/21/18 Atorvastatin Calcium (ATORVASTATIN CALCIUM) 20 Mg Tab, 40 MG PO DAILY, #30 TAB Prov:MALCOLM WILLOUGHBY MD 08/21/18 Reported Medications Bumetanide (Bumetanide) 1 Mg Tab, 1 TAB PO DAILY for 30 Days, #30 03/24/24 Metolazone (Metolazone) 10 Mg Tab, 1 TAB PO DAILY for 30 Days, #30 03/24/24 Gabapentin (Gabapentin) 100 Mg Cap, 800 MG PO Q8HR PRN for 30 Days, #90 03/24/24 Hydralazine Hcl (Hydralazine Hcl) 100 Mg Tab, 1 TAB PO Q12HR for 15 Days, #30 03/24/24 Clonidine Hydrochloride (Clonidine Hydrocloride) 0.1 Mg Tab, 0.2 MG PO Q8HR PRN for 30 Days, #90 03/24/24 Lorazepam (Lorazepam) 0.5 Mg Tab, 0.25 MG PO DAILYPRN PRN for ANXIETY, TAB 12/30/23 Ped Multivitamins W/Fl & Iron (Multi-Vit/Iron/Fluoride) /Fl 0.25 August, 1 ML PO DAILY, #100 ML 3 Refills 12/30/23 Sertraline Hcl (Zoloft) 25 Mg Tab, 1 TAB PO DAILY for 30 Days 12/30/23 Hydrocodone-Acetaminophen (Hydrocodone Bitartrate/AC 5-325 mg) 1 Tab Tab, 1 TAB PO QIDPRN PRN for PAIN SCALE 1 THRU 6, TAB 12/30/23 Famotidine (Famotidine) 20 Mg Tab, 1 TAB PO DAILY for 30 Days, #30 12/30/23 Bisacodyl (Dulcolax) 10 Mg Sup, 100 MG PO DAILY, SUPP 12/30/23 Fluticasone Propionate (Nasal) (Fluticasone Propionate Na) 50 Mcg/Act Spr, 1 SPRAY PARKER BID 11/06/23 Memantine HCl (Memantine Hydrochloride) 5 Mg Tab, 1 TAB PO DAILY 11/06/23 Levothyroxine Sodium (Levothyroxine Sodium) 50 Mcg Tab, 1 TAB PO QAM for 30 Days, #30 05/29/23 Apixaban Base (ELIQUIS) 2.5 Mg Tab, 1 TAB PO BID for 30 Days, #60 11/27/22 Amlodipine Besylate (Amlodipine Besylate) 10 Mg Tab, 1 TAB PO DAILY 11/27/22 Current Medications Current Medications Medications (Trade) Dose Ordered Sig/[place] Route PRN Reason Start Time Stop Time Status Last Admin Enoxaparin Sodium (Lovenox) 30 mg DAILY SC 06/14/24 10:00 Vital Signs Vital Signs Date Time Temp Pulse Resp B/P (MAP) Pulse Ox O2 Delivery O2 Flow Rate FiO2 06/13/24 12:57 137/74 06/13/24 12:11 80 18 97 35 06/13/24 12:00 Mechanical Ventilator+ 06/13/24 07:45 99.3 99.3 Physical Exam GEN: Age-appropriate male intubated. Sedated. HEENT: Normocephalic atraumatic. Moist mucous membranes. Anicteric sclerae. CV: RRR Respiratory: Coarse breath sounds ABD: Soft. Labs/Diagnostic Data Labs Test 06/13/24 12:20 06/13/24 06:51 06/13/24 03:20 06/12/24 14:26 Range/Units POC Glucose 145 H 70-106 mg/dl Blood Gas Specimen Type Arterial Blood Gas Sample Site Arterial line Blood Gas Patient Temperature 37.0 Arterial Blood Date Drawn [id number] Arterial Blood pH 7.418 7.350-7.450 Arterial Blood Partial Pressure CO2 43.3 35.0-48.0 mmHg Arterial Blood Partial Pressure O2 68.2 L 83.0-108.0 mmHg Arterial Blood HCO3 27.3 21.0-28.0 mmol/L Arterial Blood Oxygen Saturation 94.1 94.0-98.0 % Arterial Blood Base Excess 2.5 -2.0-3.0 mmol/L Arterial Blood Oxyhemoglobin 92.9 L 94.0-98.0 % Arterial Blood Carboxyhemoglobin 1.1 0.5-1.5 % Arterial Blood Methemoglobin 0.2 0.0-1.5 % Bruno Test N/a Blood Gas Total Hemoglobin 8.90 L 13.5-17.5 g/dL Blood Gas Set Respiration Rate 16.0 Blood Gas Modality Vent - ac FiO2 % 30.0 Blood Gas Tidal Volume 500.0 Blood Gas PEEP or CPAP 5.0 White Blood Count 5.5 4.4-10.8 10^3/uL Red Blood Count 2.70 L 4.5-5.90 10^6/uL Hemoglobin 8.4 #L 13.5-17.5 g/dL Hematocrit 25.2 #L 41.0-53.0 % Mean Corpuscular Volume 93.3 80.0-100.0 fL Mean Corpuscular Hemoglobin 31.2 28.0-32.0 pg Mean Corpuscular Hemoglobin Concent 33.4 32.0-36.0 g/dL Red Cell Distribution Width 16.2 H 11.8-14.3 % Platelet Count 95 L 140-450 10^3/uL Mean Platelet Volume 7.6 6.9-10.8 fL Neutrophils (%) (Auto) 61.9 37.0-80.0 % Lymphocytes (%) (Auto) 16.3 10.0-50.0 % Monocytes (%) (Auto) 13.5 H 0.0-12.0 % Eosinophils (%) (Auto) 7.1 H 0.0-7.0 % Basophils (%) (Auto) 1.2 0.0-2.0 % Neutrophils # (Auto) 3.4 1.6-8.6 10 ^3/uL Lymphocytes # (Auto) 0.9 0.4-5.4 10 ^3/uL Monocytes # (Auto) 0.7 0-1.3 10 ^3/uL Eosinophils # (Auto) 0.4 0-0.8 10 ^3/uL Basophils # (Auto) 0.1 0-0.2 10 ^3/uL Nucleated Red Blood Cells 0.1 % Prothrombin Time 11.5 9.3-11.8 sec Prothrombin Time INR 1.09 0.9-1.15 Activated Partial Thromboplast Time 37.1 H 24.5-34.5 SEC Sodium Level 141 136-145 mmol/L Potassium Level 3.8 3.5-5.1 mmol/L Chloride Level 105 98-107 mmol/L Carbon Dioxide Level 26 20-31 mmol/L Anion Gap 10 5-15 Blood Urea Nitrogen 22 9-23 mg/dL Creatinine 2.89 H 0.700-1.30 mg/dL Glomerular Filtration Rate Calc 23 >90 mL/min BUN/Creatinine Ratio 7.6 L 10.0-20.0 Serum Glucose 80 74-106 mg/dL Calcium Level 8.7 8.7-10.4 mg/dL Magnesium Level 1.9 1.6-2.6 mg/dL Total Bilirubin < 0.2 L 0.2-1.0 mg/dL Aspartate Amino Transferase (AST) 15 13-40 U/L Alanine Aminotransferase (ALT) < 9 7-40 U/L Alkaline Phosphatase 101 46-116 U/L Total Protein 5.6 L 5.7-8.2 g/dL Albumin 2.5 L 3.2-4.8 g/dL Stool Occult Blood Negative Negative Stool Occult Blood Sample #3 Negative Test 06/12/24 07:55 06/10/24 01:12 06/09/24 20:40 06/09/24 12:57 Range/Units Blood Gas Spontaneous Rate 20 Blood Gas Inspiratory Pressure 18.0 Bl Gas Inspiratory/Expiratory Ratio 1:1.2 Specimen Drawn By yandy rt Blood Gas EPAP 5 Blood Gas IPAP 12 Blood Gas Liter Flow 15.00 Blood Gas Pressure Support 10 Test 06/05/24 03:09 06/02/24 03:17 06/01/24 03:00 05/31/24 07:30 Range/Units Differential Total Cells Counted 100.0 100 Neutrophils % (Manual) 71 37.0-80.0 Band Neutrophils % (Manual) 0 Lymphocytes % (Manual) 17 10.0-50.0 Monocytes % (Manual) 8 0-12 Eosinophils % (Manual) 4 0-7 Basophils % (Manual) 0 0.0-2.0 Metamyelocytes % (manual) 0 Myelocytes % (Manual) 0 Promyelocytes % (Manual) 0 Blast Cells % (Manual) 0 Reactive Lymphocytes 0 Platelet Estimate Decreased Large Platelets Few Iron Level 101 65-175 ug/dL Total Iron Binding Capacity 109 L 250-425 ug/dL Percent Iron Saturation 92.7 H 20-55 % Ferritin 1171.2 H 22-322 ng/mL Hepatitis A IgM Antibody Negative Hepatitis B Surface Antigen Negative Negative Hepatitis B Core IgM Antibody Negative Hepatitis C Antibody Reactive *A Negative Uric Acid 9.3 H 3.7-9.2 mg/dL Phosphorus Level 8.4 H 2.4-5.1 mg/dL Blood Gas Critical Value Read Back Yes Blood Gas Notified Whom Kana gomes Blood Gas Notified Time [id number] Blood Gas Notified By Nanda senior software test engineer Test 05/31/24 03:14 05/30/24 11:45 05/30/24 04:30 05/30/24 03:06 Range/Units Random Vancomycin Level 20.1 H 5-10 ug/mL Body Fluid Source Pleural fluid Body Fluid pH 7.0 Body Fluid WBC (Manual) 479 H 0-200 CUMM Body Fluid RBC (Manual) 842 0-2000 CUMM Body Fluid Mononuclear Cells 86 % Body Fluid Polymorphonuclear Cells 14 0-25 % Body Fluid Glucose 68 . mg/dL Body Fluid Total Protein 2.4 . g/dL Body Fluid Lactate Dehydrogenase 101 . IU/L Urine Creatinine 33.57 30.0-125.0 mg/dL Urine Sodium 85 40-220 mmol/L Urine Opiates Screen Neg NEGATIVE Urine Fentanyl Screen Pos NEGATIVE Urine Barbiturates Screen Neg NEGATIVE Urine Phencyclidine Screen Neg NEGATIVE Urine Amphetamines Screen Neg NEGATIVE Urine Benzodiazepines Screen Pos NEGATIVE Urine Cocaine Screen Neg NEGATIVE Urine Cannabinoids Screen Neg NEGATIVE Lactate Dehydrogenase 149 120-246 U/L Test 05/29/24 08:30 05/29/24 00:21 05/28/24 22:36 05/28/24 21:43 Range/Units Lactic Acid Level 0.5 0.4-2.0 mmol/L Thyroid Stimulating Hormone (TSH) 2.47 0.55-4.78 uIU/mL Troponin I High Sensitivity 118 *H </=54 ng/L Urine Color Dark-brown Yellow Urine Clarity Ex.turbid Clear Urine pH 6.0 5.0-9.0 Urine Specific [place] 1.017 1.001-1.035 Urine Protein 2+ H Negative Urine Ketones Trace Negative Urine Blood 1+ H Negative /uL Urine Nitrite Negative Negative Urine Bilirubin Negative Negative Urine Urobilinogen Normal Negative mg/dL Urine Leukocyte Esterase 3+ Negative /uL Urine RBC 56 0 - 3 /hpf Urine WBC 3664 0 - 3 /hpf Urine WBC Clumps Present None Seen /hpf Urine Squamous Epithelial Cells Many <5 /hpf Urine Bacteria Mod H None Seen /hpf Urine Glucose Normal Normal mg/dL Anisocytosis (manual) Slight Macrocytosis Slight B-Type Natriuretic Peptide 1188.79 0-100 pg/mL Microbiology Date/Time Source Procedure Growth Status 06/11/24 16:06 Bronchial Washings Gram Stain - Final Resulted 06/11/24 16:06 Bronchial Washings Respiratory Culture - Preliminary Resulted 06/10/24 04:52 Trachea Gram Stain - Final Resulted 06/10/24 04:52 Respiratory Culture - Preliminary Pseudomonas aeruginosa Acinetobacter baumannii MDRO Acinetobacter baumannii Resulted 06/09/24 18:54 Blood Blood Culture - Preliminary NO GROWTH AFTER 72 HOURS OF INCUBATION. Resulted 05/30/24 11:45 Pleural Fluid Gram Stain - Final Complete 05/30/24 11:45 Pleural Fluid Body Fluid Culture - Final Complete 05/28/24 22:36 Urine - Catheterized Urine Culture - Final Enterobacter cloacae Escherichia coli Enterococcus faecalis - VRE Complete Assessment 1. Respiratory failure requiring prolonged ventilatory support. Plan/Recommendation 1. Tracheostomy tube placement Informed consent: The surgery and its risks including but not limited to potentially life-threatening infection and bleeding, possible perioperative ID or stroke were explained to the patient's son. All questions were answered to his satisfaction. He expressed verbal understanding and wished to proceed with the surgery. Plan discussed with: Son NATALIIAYUMIKO MD Jun 13, 2024 14:19
--- NOTE | 2024-06-13 14:24 | DVHOP2 ---
Operative Report - 2 Report Details Date: 06/13/24 Preop Diagnosis: Respiratory failure Postop Diagnosis: Same Surgeon: Yumiko Freire MD Seasonal Customer Service Associate: None Anesthesiologist: Dr. Patel Anesthesia: General Drains: Shiley [id number] tracheostomy tube Consent: The surgery risks including but not limited to infection, potentially life- threatening bleeding, possible perioperative AR or stroke were explained to the patient's son. All questions were answered to his satisfaction. He expressed verbal understanding and wished to proceed with the surgery. Complications: None Estimated Blood Loss: 2 mL Fluids: 200 mL Name of Procedure Performed Tracheostomy tube placement Procedure Details Procedure Details: After induction of general anesthesia, patient's anterior neck was prepped and draped in standard surgical fashion. A small transverse incision was made alf between the cricoid cartilage and the sternal notch. Incision extended through the platysma muscles down to the strap muscles which were divided in midline. The isthmus of the thyroid gland was then divided using electrocautery revealing the anterior surface of the trachea. The ventilation was then briefly held and the endotracheal tube cuff was deflated. Upside-down T-incision was made through the 1st in the sacral tracheal rings gaining access to the lumen of the trachea. Patient had a lot of thick mucus within the lumen which was suctioned off. The endotracheal tube was then gently withdrawn under direct visualization and a Shiley [id number] tracheostomy tube was easily inserted into the tracheal lumen. Patient was quickly placed back on the ventilator with good return of end-tidal CO2. Platysma muscle was then reapproximated around the tracheostomy tube using interrupted 3-0 Vicryl sutures. Skin incision was then closed using interrupted 4-0 Monocryl sutures. The surgical site was cleaned and dried and dressings were applied. Sponge, needle, instrument count at the end of the case were reported to be correct by the nursing staff. Patient tolerated procedure well was transferred back to ICU in guarded condition Specimen: None Condition Guarded Disposition Still a Patient YUMIKO FREIRE MD Jun 13, 2024 14:24
--- NOTE | 2024-06-13 15:55 | DVH ---
US CHEST ULTRASOUND, HISTORY: Pleural Effusion COMPARISON(S): None TECHNICAL DATA: Transverse and longitudinal images are obtained of the chest. FINDING: IMPRESSION(S): Left > right pleural effusion.
--- NOTE | 2024-06-13 16:52 | DVHPNRES ---
Progress Note Date Seen: Jun 13, 2024 Resident Creating Document: DYLAN GOMEZ RILEY Has the PT tested + for MRSA If YES, has PT been informed?: Yes Medical Necessity Reason Pt with a Central, PICC or Fol: Yes The following are medically ne: Central Line, Rubio Catheter Reason for rubio catheter: Strict I&O Subjective Review of Systems Patient seen and examined at the bedside. Patient is sedated and on mechanical ventilation. Review of systems could not obtain. Patient reports: No new complaints Changes from previous H/P or p: No Changes Objective vital signs Vital Sign Date Time Temp Pulse Resp B/P (MAP) Pulse Ox O2 Delivery O2 Flow Rate FiO2 06/13/24 16:00 18 97 Mechanical Ventilator+ 35 35 06/13/24 16:00 77 06/13/24 15:45 154/82 (106) 06/13/24 07:45 99.3 99.3 Total Intake and Output 06/12/24 06/12/24 06/13/24 15:00 23:00 07:00 Intake Total 222 ml 792 ml 380 ml Output Total 140 ml 0 ml Balance 222 ml 652 ml 380 ml medications Current Medications Medications Dose Ordered Sig/[place] Route Start Time Stop Time Status Last Admin Dose Admin Midazolam HCl 50 ml @ 1 mls/hr Q24H IV 05/28/24 21:15 06/13/24 12:57 5 MLS/HR Albuterol 2.5 mg Q6HPRN PRN NEB 05/29/24 00:00 06/13/24 12:11 2.5 MG Fentanyl Citrate 250 ml @ 2.5 mls/hr Q24H IV 05/29/24 01:15 06/11/24 21:36 5 MLS/HR Pantoprazole Sodium 40 mg BID IV 05/29/24 22:00 06/13/24 09:46 40 MG Norepinephrine Bitartrate 250 ml @ 3.75 mls/hr Q24H IV 05/29/24 11:30 06/03/24 14:05 3.75 MLS/HR Enteral Nutritional Formula 1,000 ml 30ML/HR GT 05/30/24 11:00 06/12/24 00:39 1,000 ML Metoprolol Tartrate 50 mg BID PO 06/02/24 10:45 06/13/24 10:40 50 MG Diagnostic Test (Pha) 1 strip Q6HR 06/02/24 12:00 06/13/24 12:01 1 STRIP Insulin Human Regular Q6HR SC 06/02/24 12:00 Dextrose 50 ml UD PRN IV 06/02/24 10:45 06/13/24 12:03 50 ML Hydralazine HCl 10 mg Q4HPRN PRN IV 06/03/24 15:15 06/12/24 21:41 10 MG Heparin Sodium (Porcine) 4,000 units PRN PRN IV 06/07/24 09:00 Hydralazine HCl 100 mg Q8HR PO 06/07/24 14:00 06/12/24 15:11 100 MG Meropenem 50 ml @ 17 mls/hr Q12H IV 06/08/24 19:00 06/13/24 06:31 17 MLS/HR Acetylcysteine 100 mg Q6HR NEB 06/09/24 18:00 06/13/24 12:12 100 MG Amlodipine Besylate 10 mg DAILY PO 06/10/24 10:00 06/13/24 09:46 10 MG Enoxaparin Sodium 40 mg DAILY SC 06/10/24 10:00 UNV Levetiracetam 100 ml @ 400 mls/hr DAILY IV 06/12/24 10:00 06/13/24 09:46 400 MLS/HR Examination General Appearance: Patient is sedated and on mechanical ventilation. RASS score -5 HEENT: Atraumatic, PERRLA, EOMI, Mucous membrane moist/pink Respiratory: Clear to auscultation, Normal air movement Cardiovascular: Regular rate, Normal S1, Normal S2, No murmurs, no chest wall tenderness Abdominal: Normal bowel sounds, Soft, No tenderness, No hepatospenomegaly, No masses Extremities: No clubbing, No cyanosis, No edema, Normal pulses, No tenderness/swelling Skin: No rashes, No breakdown, No significant lesion laboratory and microbiology Laboratory Tests 06/13/24 03:20 Test 06/13/24 03:20 Range/Units Serum Glucose 80 74-106 mg/dL Microbiology Date/Time Source Procedure Growth Status 06/11/24 16:06 Bronchial Washings Gram Stain - Final Resulted 06/11/24 16:06 Bronchial Washings Respiratory Culture - Preliminary Resulted 06/10/24 04:52 Trachea Gram Stain - Final Resulted 06/10/24 04:52 Respiratory Culture - Preliminary Pseudomonas aeruginosa Acinetobacter baumannii MDRO Acinetobacter baumannii Resulted 06/09/24 18:54 Blood Blood Culture - Preliminary NO GROWTH AFTER 72 HOURS OF INCUBATION. Resulted 05/30/24 11:45 Pleural Fluid Gram Stain - Final Complete 05/30/24 11:45 Pleural Fluid Body Fluid Culture - Final Complete 05/28/24 22:36 Urine - Catheterized Urine Culture - Final Enterobacter cloacae Escherichia coli Enterococcus faecalis - VRE Complete Labs and/or images reviewed: Labs reviewed by me, Image(s) reviewed by me Problem List/Assessment/Plan Problem List/Assessment/Plan NEURO: Acute metabolic encephalopathy likely due to sepsis Patient is sedated and on mechanical ventilation, RASS scores -5 History of seizure during last admission(1 month back) used Keppra for 1 week Consulted neurology, recommended Keppra EEG shows abnormal EEG recording consistent with the presence of a diffuse nonspecific encephalopathic state CARDIOVASCULAR: Hypertension Continue home medication, injection hydralazine 10 mg q.6 hours as needed PULMONARY: Acute Hypoxic Respiratory Failure likely due to pneumonia Septic shock likely due to pneumonia, improved Pneumonia likely due to Gram-positive Gram-negative Patient is sedated and on the mechanical ventilation with a setting of (VT 500, RR 18, peep 5, FiO2 35%) ABGs shows respiratory acidosis with metabolic compensation Sputum culture from bronchoalveolar lavage from 05/24/24 shows MRSA, Enterobacter cloacae Blood culture from the 06/02/24 shows Staphylococcus epidermidis , Staph hominis Repeat culture from 06/09/2024 shows no growth within 48 hours Bronchoscopy performed, there was some thin mucus secretion on bilateral side, bronchial lavage of right lower lobe and left lower lobe was performed and the sample was sent for the culture sensitivity, Gram stain and AFB Stopped in linezolid, as given for 11 days Continue meropenem MRSA nares screening negative Continue N-acetylcysteine Breathing treatment q.[address] scan shows [id number] left pleural effusion Chest ultrasound shows left side pleural effusion IR is consulted for the thoracentesis GI GI ppx: Protonix b.i.d. Hepatitis-C virus antibody positive Repeat stool occult blood test is negative CT abdominopelvic without contrast shows no evidence of intra-abdominal hemorrhage Consulted surgery and performed tracheostomy GI is has evaluated the patient and planned for the PEG tube for Sunday/Sunday RENAL: FROYLAN on CKD grade 3a Nephrology on the board Hypernatremia, improved Hypokalemia, improved Hyperkalemia, improved UTI, urinalysis shows UTI picture Urine culture from 05/28/2024 shows Enterobacter coli C, E coli, Enterococcus faecalis Repeat urine culture Continue meropenem IR consulted for the tunneled catheter Status post right lower limb amputation, above the knee likely due to PAD Decubitus ulcer There are multiple grade 3-4 sacral ulcers HEME Severe anemia, transfused 3 pack of red blood cells Last night, Hg dropped to 6.8, 1 pt of blood has been transfused SKIN Possible keloid There is a growth on the left shoulder, per son the has been present for several years Follow up on outpatient basis LINES/DRAINS/ACCESS: ETT, intubated on 05/28/2024 IV access Hemodialysis catheter on left internal jugular vein, placed on 06/03/2024 Right internal jugular vein CBC Suprapubic catheter, changed on 06/02/2020 Versed 4 Fentanyl 50 No pressor DIET: Nepro 30 mL/hour DVT prophylaxis SCDs Due to tracheostomy and planned PEG tube, Lovenox has been discontinued CODE STATUS: Full code Patient's status discussed with patient's son at the bedside. Critical time spent more than 35 minutes, including patient care, chart review and updating the family. excluding any procedures. Tracheostomy performed today, GI evaluated the patient for the PEG tube and planned for Sunday/Sunday. IR has been consulted for the thoracentesis and placement of tunneled catheter. Case discussed with Dr. Ashby Plan discussed with: Son, Other (RN) My Orders My Orders Orders - DYLAN GOMEZ RESLOYD Procedure Category Date Status Time Chest Xray 1 View XY 06/13/24 Resulted 04:00 Abg W/ Co-Ox RT 06/13/24 Logged 04:00 Chest Ultrasound US 06/13/24 Resulted 13:19 * Radiologist Consult CONS 06/13/24 Transmitted 13:23 Complete Blood Count LAB 06/14/24 Verified 04:00 Comprehensive LAB 06/14/24 Verified Metabolic Panel 04:00 Chest Xray 1 View XY 06/14/24 Logged 04:00 Abg W/ Co-Ox RT 06/14/24 Logged 04:00 Dietary Evaluation Review Comments: 1) If GI is assessible consider Jevity 1.2 @ 60 ml/hr x24 hrs goal rate as tolerated 2) If pt remains NPO >7 days consider TPN to meet at least 75% of estimated needs 3) Advance pt diet when medically feasible to a Cardiac/Renal Specific K2,2gmNA,low phos,60g Pro diet modified per HAIR BOILER OPERATOR recommendations 4) Continue current plan of care Expected Outcomes/Goals: 1) Pt to receive adequate nutrition support 2) Pt diet to advance CC Plasma Assessment Blood Product Administration S: [id number] Date of Service: Jun 13, 2024 Billing Provider: MARK ASHBY MD Common Visit Codes: [id number] CARE 30-74 MIN DYLAN GOMEZ RESDIENT Jun 13, 2024 16:52 MARK ASHBY MD Jun 20, 2024 13:13
--- NOTE | 2024-06-13 17:27 | DVHINCON2 ---
GI Consult Consult Note Date of Consultation: 06/13/2024 Chief Complaint: G-tube request H&P: 69-year-old male with CHF, COPD, diabetes, hypertension, hyperlipidemia, history of colostomy, status post trach, was unable to be weaned off of the vent with respiratory failure, GI consultation obtained for G-tube placement. Family is amenable to the plan. Also noted to have anemia without signs of GI bleeding and metabolic encephalopathy Past Medical History: As above Past Surgical History: As above, right AKA, left foot amputation Social History: Social alcohol no tobacco or recreational drug use Family History: Noncontributory Current Medications Medications (Trade) Dose Ordered Sig/[place] Route Start Time Stop Time Status Last Admin Dose Admin Midazolam HCl 50 ml @ 1 mls/hr Q24H IV 05/28/24 21:15 06/13/24 12:57 5 MLS/HR Albuterol (Ventolin Medneb) 2.5 mg Q6HPRN PRN NEB 05/29/24 00:00 06/13/24 12:11 2.5 MG Fentanyl Citrate 250 ml @ 2.5 mls/hr Q24H IV 05/29/24 01:15 06/11/24 21:36 5 MLS/HR Pantoprazole Sodium (Protonix) 40 mg BID IV 05/29/24 22:00 06/13/24 09:46 40 MG Norepinephrine Bitartrate 250 ml @ 3.75 mls/hr Q24H IV 05/29/24 11:30 06/03/24 14:05 3.75 MLS/HR Enteral Nutritional Formula (Nepro With Carb Steady) 1,000 ml 30ML/HR GT 05/30/24 11:00 06/12/24 00:39 1,000 ML Metoprolol Tartrate (Lopressor Tablet) 50 mg BID PO 06/02/24 10:45 06/13/24 10:40 50 MG Diagnostic Test (Pha) (Accu-Chek Comfort Curve T) 1 strip Q6HR 06/02/24 12:00 06/13/24 12:01 1 STRIP Insulin Human Regular (InsuLIN R) Q6HR SC 06/02/24 12:00 Dextrose 50 ml UD PRN IV 06/02/24 10:45 06/13/24 12:03 50 ML Hydralazine HCl (Apresoline Injection) 10 mg Q4HPRN PRN IV 06/03/24 15:15 06/12/24 21:41 10 MG Heparin Sodium (Porcine) 4,000 units PRN PRN IV 06/07/24 09:00 Hydralazine HCl (Apresoline Tablet) 100 mg Q8HR PO 06/07/24 14:00 06/12/24 15:11 100 MG Meropenem 50 ml @ 17 mls/hr Q12H IV 06/08/24 19:00 06/13/24 06:31 17 MLS/HR Acetylcysteine (Mucomyst Inahalation 10%) 100 mg Q6HR NEB 06/09/24 18:00 06/13/24 12:12 100 MG Amlodipine Besylate (Norvasc Tablet) 10 mg DAILY PO 06/10/24 10:00 06/13/24 09:46 10 MG Enoxaparin Sodium (Lovenox) 40 mg DAILY SC 06/10/24 10:00 UNV Levetiracetam 100 ml @ 400 mls/hr DAILY IV 06/12/24 10:00 06/13/24 09:46 400 MLS/HR Allergies: Meperidine Review of Systems: Twelve point review of systems as per HPI Physical exam: Vital Signs Date Time Temp Pulse Resp B/P (MAP) Pulse Ox O2 Delivery O2 Flow Rate FiO2 06/13/24 16:35 81 18 154/82 (106) 95 35 06/13/24 16:00 Mechanical Ventilator+ 06/13/24 07:45 99.3 99.3 General: Intubated and sedated HEENT: Trach in place, NG tube in place, Heart: Regular rate and rhythm Abdomen: soft, nontender nondistended, colostomy left lower quadrant Labs: Labs reviewed Imaging: Reviewed Assessment: 1. Respiratory failure 2. History of liver disease, ascites on CT scan 3. CHF 4. Diabetes 5. Anemia Plan: 1. We will obtain consent and plan for G-tube placement, likely Sunday 2. Follow labs 3. Hold anticoagulation 4. Follow H&H and transfuse 5. Continue current medication Date of Service: Jun 13, 2024 Billing Provider: LUISA PALACIOS MD Common Visit Codes: [id number] INP/OBS CARE (HIGH) Consultation Codes: [id number] CONSULT <60MIN LUISA PALACIOS MD Jun 13, 2024 17:27
--- NOTE | 2024-06-13 21:20 | DVHPN2 ---
Progress Note Date Seen: Jun 13, 2024 Has the PT tested + for MRSA If YES, has PT been informed?: Yes Medical Necessity Reason Pt with a Central, PICC or Fol: Yes The following are medically ne: Central Line, Rubio Catheter Reason for rubio catheter: Strict I&O Subjective Patient reports: Other (son bedside) Review of Systems: Deferred Objective vital signs Vital Sign Date Time Temp Pulse Resp B/P (MAP) Pulse Ox O2 Delivery O2 Flow Rate FiO2 06/13/24 20:15 93 18 94 Mechanical Ventilator+ 35 35 06/13/24 20:15 98.7 132/62 (85) 98.7 Total Intake and Output 06/12/24 06/12/24 06/13/24 15:00 23:00 07:00 Intake Total 222 ml 792 ml 380 ml Output Total 140 ml 0 ml Balance 222 ml 652 ml 380 ml medications Current Medications Medications Dose Ordered Sig/[place] Route Start Time Stop Time Status Last Admin Dose Admin Midazolam HCl 50 ml @ 1 mls/hr Q24H IV 05/28/24 21:15 06/13/24 12:57 5 MLS/HR Albuterol 2.5 mg Q6HPRN PRN NEB 05/29/24 00:00 06/13/24 18:33 2.5 MG Fentanyl Citrate 250 ml @ 2.5 mls/hr Q24H IV 05/29/24 01:15 06/11/24 21:36 5 MLS/HR Pantoprazole Sodium 40 mg BID IV 05/29/24 22:00 06/13/24 09:46 40 MG Norepinephrine Bitartrate 250 ml @ 3.75 mls/hr Q24H IV 05/29/24 11:30 06/03/24 14:05 3.75 MLS/HR Enteral Nutritional Formula 1,000 ml 30ML/HR GT 05/30/24 11:00 06/12/24 00:39 1,000 ML Metoprolol Tartrate 50 mg BID PO 06/02/24 10:45 06/13/24 10:40 50 MG Diagnostic Test (Pha) 1 strip Q6HR 06/02/24 12:00 06/13/24 18:18 1 STRIP Insulin Human Regular Q6HR SC 06/02/24 12:00 Dextrose 50 ml UD PRN IV 06/02/24 10:45 06/13/24 12:03 50 ML Hydralazine HCl 10 mg Q4HPRN PRN IV 06/03/24 15:15 06/12/24 21:41 10 MG Heparin Sodium (Porcine) 4,000 units PRN PRN IV 06/07/24 09:00 Hydralazine HCl 100 mg Q8HR PO 06/07/24 14:00 06/12/24 15:11 100 MG Meropenem 50 ml @ 17 mls/hr Q12H IV 06/08/24 19:00 06/13/24 06:31 17 MLS/HR Acetylcysteine 100 mg Q6HR NEB 06/09/24 18:00 06/13/24 18:33 100 MG Amlodipine Besylate 10 mg DAILY PO 06/10/24 10:00 06/13/24 09:46 10 MG Enoxaparin Sodium 40 mg DAILY SC 06/10/24 10:00 UNV Levetiracetam 100 ml @ 400 mls/hr DAILY IV 06/12/24 10:00 06/13/24 09:46 400 MLS/HR Examination: HEENT:Abnormal, LUNGS:Abnormal, MSK:Abnormal, SKIN:Abnormal, NEURO:Abnormal laboratory and microbiology Laboratory Tests 06/13/24 03:20 Test 06/13/24 03:20 Range/Units Serum Glucose 80 74-106 mg/dL Microbiology Date/Time Source Procedure Growth Status 06/11/24 16:06 Bronchial Washings Gram Stain - Final Resulted 06/11/24 16:06 Bronchial Washings Respiratory Culture - Preliminary Resulted 06/10/24 04:52 Trachea Gram Stain - Final Resulted 06/10/24 04:52 Respiratory Culture - Preliminary Pseudomonas aeruginosa Acinetobacter baumannii MDRO Acinetobacter baumannii Resulted 06/09/24 18:54 Blood Blood Culture - Preliminary NO GROWTH AFTER 72 HOURS OF INCUBATION. Resulted 05/30/24 11:45 Pleural Fluid Gram Stain - Final Complete 05/30/24 11:45 Pleural Fluid Body Fluid Culture - Final Complete 05/28/24 22:36 Urine - Catheterized Urine Culture - Final Enterobacter cloacae Escherichia coli Enterococcus faecalis - VRE Complete Problem List/Assessment/Plan Problem List/Assessment/Plan Acute kidney injury on chronic kidney disease stage 4 -> likely septic ATN needing HD Acute respiratory failure on vent Anemia suspected due to low blood loss s/p PRBC Hypernatremia Hypokalemia Metabolic acidosis Chronic urinary retention sepsis due to bacteremia recs Hemodialysis today Epogen with dialysis Next dialysis sunday Plan discussed with: Son Dietary Evaluation Review Comments: 1) If GI is assessible consider Jevity 1.2 @ 60 ml/hr x24 hrs goal rate as tolerated 2) If pt remains NPO >7 days consider TPN to meet at least 75% of estimated needs 3) Advance pt diet when medically feasible to a Cardiac/Renal Specific K2,2gmNA,low phos,60g Pro diet modified per BIOLOGICAL SCIENCE TECHNICIAN FISH recommendations 4) Continue current plan of care Expected Outcomes/Goals: 1) Pt to receive adequate nutrition support 2) Pt diet to advance CC Plasma Assessment Blood Product Administration S: [id number] SUKI MERINO MD Jun 13, 2024 21:20
[2024-06-14] VITALS (115 sets, daily range): BP systolic 121–195; BP diastolic 63–98; PULSE 82–109; RESP 12–33; TEMP 98.2–99.7; O2SAT 94–100
[2024-06-14 03:49] LABS: Basophils # (auto) 0.1 10 ^3/uL (0-0.2); Basophils % (auto) 0.9 % (0.0-2.0); Eosinophils # (auto) 0.3 10 ^3/uL (0-0.8); Eosinophils % (auto) 4.5 % (0.0-7.0); Hematocrit 26.5 % (41.0-53.0); Hemoglobin 8.8 g/dL (13.5-17.5); Lymphocytes # (auto) 0.6 10 ^3/uL (0.4-5.4); Lymphocytes % (auto) 9.3 % (10.0-50.0); Mean Corpuscular Hemoglobin 31.2 pg (28.0-32.0); Mean Corpuscular Hgb Conc. 33.2 g/dL (32.0-36.0); Mean Corpuscular Volume 94.1 fL (80.0-100.0); Monocytes # (auto) 0.8 10 ^3/uL (0-1.3); Monocytes % (auto) 12.9 % (0.0-12.0); Neutrophils # (auto) 4.5 10 ^3/uL (1.6-8.6); Neutrophils % (auto) 72.4 % (37.0-80.0); Platelet Count (auto) 96 10^3/uL (140-450); Red Blood Cells 2.82 10^6/uL (4.5-5.90); White Blood Cell 6.2 10^3/uL (4.4-10.8)
[2024-06-14 04:11] LABS: Alkaline Phosphatase 85 U/L (46-116); Anion Gap 10 (5-15); Aspartate Aminotransferase 17 U/L (13-40); BUN/Creatinine Ratio 7.2 (10.0-20.0); Blood Urea Nitrogen 23 mg/dL (9-23); Carbon Dioxide 26 mmol/L (20-31); Chloride 104 mmol/L (98-107); Glucose 81 mg/dL (74-106); Potassium 4.2 mmol/L (3.5-5.1); Sodium 140 mmol/L (136-145)
[2024-06-14 04:12] LABS: Alanine Aminotransferase < 9 U/L (7-40); Albumin 2.7 g/dL (3.2-4.8); Bilirubin, Total < 0.2 mg/dL (0.2-1.0)
--- NOTE | 2024-06-14 06:00 | DVH ---
CHEST RADIOGRAPH Indication: Pneumonia Technique: Single frontal view of the chest was obtained Comparison: XY CHEST XRAY 1 VIEW on DOS: 06/13/24, XY CHEST XRAY 1 VIEW on DOS: 06/12/24, XY CHEST XR AY 1 VIEW on DOS: 06/11/24 IMPRESSION: Heart is prominent size. Low lung volumes. Small left pleural effusion with increased opacity at the left lung base, similar to prior examination. Patchy opacities in the right lung appear slightly incr eased. No pneumothorax. There has been interval replacement of the endotracheal tube with a tracheos mu, tip at thoracic inlet. Otherwise support lines and tubes appear satisfactory in position.
[2024-06-14 08:09] LABS: Base Excess 0.6 mmol/L (-2.0-3.0)
[2024-06-14] MEDS ORDERED: ENOXAPARIN SOD 30 MG/0.3 ML SYRINGE SC SCH (10:00)
--- NOTE | 2024-06-14 11:12 | MEDREC ---
[facility] ASP Intervention Section I [facility] ASP Intervention: Review courses of therapy (Patient has been on Meropenem since 05/31. Patient is afebrile, WBC trending down. 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 Please reassess if this is true infections or only colonization caused by long-time ventilator (since 05/28-now)) DARÍO ABARCA Jun 14, 2024 11:12
--- NOTE | 2024-06-14 13:35 | DVHPN2 ---
Progress Note - Dictate Date Seen: Jun 14, 2024 Has the PT tested + for MRSA If YES, has PT been informed?: Yes Medical Necessity Reason Pt with a Central, PICC or Fol: Yes The following are medically ne: Central Line, Rubio Catheter Reason for rubio catheter: Strict I&O Subjective E: no major events o/n. no complaints. vital signs Vital Sign Date Time Temp Pulse Resp B/P (MAP) Pulse Ox O2 Delivery O2 Flow Rate FiO2 06/14/24 13:00 92 16 146/71 (96) 97 06/14/24 12:22 30 06/14/24 12:00 98.2 98.2 06/14/24 10:00 Mechanical Ventilator+ Total Intake and Output 06/13/24 06/13/24 06/14/24 15:00 23:00 07:00 Intake Total 208 ml 132.5 ml 277.5 ml Output Total 165 ml 50 ml Balance 208 ml -32.5 ml 227.5 ml medications Current Medications Medications Dose Ordered Sig/[place] Route Start Time Stop Time Status Last Admin Dose Admin Midazolam HCl 50 ml @ 1 mls/hr Q24H IV 05/28/24 21:15 06/13/24 12:57 5 MLS/HR Albuterol 2.5 mg Q6HPRN PRN NEB 05/29/24 00:00 06/14/24 12:22 2.5 MG Fentanyl Citrate 250 ml @ 2.5 mls/hr Q24H IV 05/29/24 01:15 06/14/24 03:10 5 MLS/HR Pantoprazole Sodium 40 mg BID IV 05/29/24 22:00 06/14/24 10:08 40 MG Norepinephrine Bitartrate 250 ml @ 3.75 mls/hr Q24H IV 05/29/24 11:30 06/03/24 14:05 3.75 MLS/HR Enteral Nutritional Formula 1,000 ml 30ML/HR GT 05/30/24 11:00 06/14/24 10:16 1,000 ML Metoprolol Tartrate 50 mg BID PO 06/02/24 10:45 06/14/24 12:33 50 MG Diagnostic Test (Pha) 1 strip Q6HR 06/02/24 12:00 06/14/24 12:35 1 STRIP Insulin Human Regular Q6HR SC 06/02/24 12:00 Dextrose 50 ml UD PRN IV 06/02/24 10:45 06/13/24 12:03 50 ML Hydralazine HCl 10 mg Q4HPRN PRN IV 06/03/24 15:15 06/12/24 21:41 10 MG Heparin Sodium (Porcine) 4,000 units PRN PRN IV 06/07/24 09:00 Hydralazine HCl 100 mg Q8HR PO 06/07/24 14:00 06/14/24 05:15 100 MG Meropenem 50 ml @ 17 mls/hr Q12H IV 06/08/24 19:00 06/14/24 06:03 17 MLS/HR Acetylcysteine 100 mg Q6HR NEB 06/09/24 18:00 06/14/24 12:22 100 MG Amlodipine Besylate 10 mg DAILY PO 06/10/24 10:00 06/14/24 10:09 10 MG Enoxaparin Sodium 40 mg DAILY SC 06/10/24 10:00 UNV Levetiracetam 100 ml @ 400 mls/hr DAILY IV 06/12/24 10:00 06/14/24 10:08 400 MLS/HR Bumetanide 2 mg BIDD IV 06/14/24 13:15 objective GEN: NAD. NECK: trach site clean. no bleeding. laboratory and microbiology Laboratory Tests 06/14/24 03:23 Test 06/14/24 03:23 Range/Units Serum Glucose 81 74-106 mg/dL Assessment/Plan A: 1. s/p tracheostomy POD #1 P: 1. surgery signing off. Dietary Evaluation Review Comments: 1) If GI is assessible consider Jevity 1.2 @ 60 ml/hr x24 hrs goal rate as tolerated 2) If pt remains NPO >7 days consider TPN to meet at least 75% of estimated needs 3) Advance pt diet when medically feasible to a Cardiac/Renal Specific K2,2gmNA,low phos,60g Pro diet modified per WEAPONS SPECIALIST recommendations 4) Continue current plan of care Expected Outcomes/Goals: 1) Pt to receive adequate nutrition support 2) Pt diet to advance Plan discussed with: Other CC Plasma Assessment Blood Product Administration S: [id number] YUMIKO WILLIAM MD Jun 14, 2024 13:35
--- NOTE | 2024-06-14 13:56 | DVHPN2 ---
Subjective Sedated. Ventilator support via tracheostomy Reviewed: Care Plan, H&P, Labs, Medications, Previous Orders, Radiology, Other (Consultants) Changes from previous H/P or p: No Changes General: Per HPI Objective Vitals Vital Signs Date Time Temp Pulse Resp B/P (MAP) Pulse Ox O2 Delivery O2 Flow Rate FiO2 06/14/24 13:00 92 16 146/71 (96) 97 06/14/24 12:22 30 06/14/24 12:00 98.2 98.2 06/14/24 10:00 Mechanical Ventilator+ Intake/Output Intake and Output 06/14/24 07:00 Intake Total 618.0 ml Output Total 215 ml Balance 403.0 ml Intake Oral 150 ml IV Total 295.0 ml Tube Feeding 125 ml Other 48 ml Output Urine Total 65 ml Stool Total 150 ml General Appearance: Other (Sedated) HEENT: Atraumatic Lungs: Other (Few crackles bilateral lungs) Cardiovascular: Regular rate Abdomen: Normal bowel sounds, Soft Musculoskeletal: Other (Sedated) Extremities: Other (Edema left lower extremity. Right AKA) Medications Current Medications Medications Dose Ordered Sig/[place] Route Start Time Stop Time Status Last Admin Dose Admin Midazolam HCl 50 ml @ 1 mls/hr Q24H IV 05/28/24 21:15 06/13/24 12:57 5 MLS/HR Albuterol 2.5 mg Q6HPRN PRN NEB 05/29/24 00:00 06/14/24 12:22 2.5 MG Fentanyl Citrate 250 ml @ 2.5 mls/hr Q24H IV 05/29/24 01:15 06/14/24 03:10 5 MLS/HR Pantoprazole Sodium 40 mg BID IV 05/29/24 22:00 06/14/24 10:08 40 MG Norepinephrine Bitartrate 250 ml @ 3.75 mls/hr Q24H IV 05/29/24 11:30 06/03/24 14:05 3.75 MLS/HR Enteral Nutritional Formula 1,000 ml 30ML/HR GT 05/30/24 11:00 06/14/24 10:16 1,000 ML Metoprolol Tartrate 50 mg BID PO 06/02/24 10:45 06/14/24 12:33 50 MG Diagnostic Test (Pha) 1 strip Q6HR 06/02/24 12:00 06/14/24 12:35 1 STRIP Insulin Human Regular Q6HR SC 06/02/24 12:00 Dextrose 50 ml UD PRN IV 06/02/24 10:45 06/13/24 12:03 50 ML Hydralazine HCl 10 mg Q4HPRN PRN IV 06/03/24 15:15 06/12/24 21:41 10 MG Heparin Sodium (Porcine) 4,000 units PRN PRN IV 06/07/24 09:00 Hydralazine HCl 100 mg Q8HR PO 06/07/24 14:00 06/14/24 05:15 100 MG Meropenem 50 ml @ 17 mls/hr Q12H IV 06/08/24 19:00 06/14/24 06:03 17 MLS/HR Acetylcysteine 100 mg Q6HR NEB 06/09/24 18:00 06/14/24 12:22 100 MG Amlodipine Besylate 10 mg DAILY PO 06/10/24 10:00 06/14/24 10:09 10 MG Enoxaparin Sodium 40 mg DAILY SC 06/10/24 10:00 UNV Levetiracetam 100 ml @ 400 mls/hr DAILY IV 06/12/24 10:00 06/14/24 10:08 400 MLS/HR Bumetanide 2 mg BIDD IV 06/14/24 13:15 Laboratory Results Laboratory Tests 06/14/24 03:23 Chemistry Test 06/14/24 03:23 Albumin 2.7 g/dL (3.2-4.8) L Calcium Level 9.0 mg/dL (8.7-10.4) Total Protein 6.0 g/dL (5.7-8.2) LFT Test 06/14/24 03:23 Alanine Aminotransferase (ALT) < 9 U/L (7-40) Alkaline Phosphatase 85 U/L (46-116) Aspartate Amino Transferase (AST) 17 U/L (13-40) Total Bilirubin < 0.2 mg/dL (0.2-1.0) L Urinalysis Test 05/28/24 22:36 05/30/24 04:30 Urine Color Dark-brown (Yellow) Urine Clarity Ex.turbid (Clear) Urine pH 6.0 (5.0-9.0) Urine Specific [place] 1.017 (1.001-1.035) Urine Protein 2+ (Negative) H Urine Ketones Trace (Negative) Urine Blood 1+ /uL (Negative) H Urine Nitrite Negative (Negative) Urine Bilirubin Negative (Negative) Urine Urobilinogen Normal mg/dL (Negative) Urine Leukocyte Esterase 3+ /uL (Negative) Urine RBC 56 /hpf (0 - 3) Urine WBC 3664 /hpf (0 - 3) Urine WBC Clumps Present /hpf (None Seen) Urine Squamous Epithelial Cells Many /hpf (<5) Urine Bacteria Mod /hpf (None Seen) H Urine Glucose Normal mg/dL (Normal) Urine Creatinine 33.57 mg/dL (30.0-125.0) Urine Sodium 85 mmol/L (40-220) Blood Gas Results Test 06/14/24 07:55 Arterial Blood pH 7.429 (7.350-7.450) FiO2 % 30.0 Microbiology Microbiology Date/Time Source Procedure Growth Status 06/11/24 16:06 Bronchial Washings Gram Stain - Final Resulted 06/11/24 16:06 Respiratory Culture - Preliminary Acinetobacter baumannii Pseudomonas aeruginosa Resulted 06/10/24 04:52 Trachea Gram Stain - Final Resulted 06/10/24 04:52 Respiratory Culture - Preliminary Pseudomonas aeruginosa Acinetobacter baumannii MDRO Acinetobacter baumannii Resulted 06/09/24 18:54 Blood Blood Culture - Preliminary NO GROWTH AFTER 72 HOURS OF INCUBATION. Resulted 05/30/24 11:45 Pleural Fluid Gram Stain - Final Complete 05/30/24 11:45 Pleural Fluid Body Fluid Culture - Final Complete 05/28/24 22:36 Urine - Catheterized Urine Culture - Final Enterobacter cloacae Escherichia coli Enterococcus faecalis - VRE Complete Assessment/Plan Assessment/Plan Respiratory failure Sepsis and septic shock Encephalopathy Acute kidney injury atop chronic kidney disease/needing dialysis Anemia status post blood transfusion Thrombocytopenia History of recent seizure Peripheral artery disease and status post right AKA Plan: Repeat CBC CMP chest x-ray. Ventilator support. Patient will have PEG tube placed tomorrow. No need for norepinephrine Tunneled catheter for dialysis on Sunday. Total critical care time 45 minutes Plan discussed with: Other (nursing) Date of Service: Jun 14, 2024 Billing Provider: ANISA ROBLES MD Common Visit Codes: [id number] CARE 30-74 MIN ANISA ROBLES MD Jun 14, 2024 13:56
[2024-06-14] MEDS: BUMETANIDE 2.5mg/10ml (0.25 mg/ml) INJ IV SCH (15:01)
[2024-06-14 15:11] LABS: INR 1.13 (0.9-1.15); Prothrombin Time 11.9 sec (9.3-11.8)
--- NOTE | 2024-06-14 18:45 | PRN ---
Misceleneous Note Note Note June 14, 2024 Subjective: Patient is still awaiting G-tube placement. Anticoagulation is being held Current Medications Medications (Trade) Dose Ordered Sig/[place] Route Start Time Stop Time Status Last Admin Dose Admin Midazolam HCl 50 ml @ 1 mls/hr Q24H IV 05/28/24 21:15 06/13/24 12:57 5 MLS/HR Albuterol (Ventolin Medneb) 2.5 mg Q6HPRN PRN NEB 05/29/24 00:00 06/14/24 12:22 2.5 MG Fentanyl Citrate 250 ml @ 2.5 mls/hr Q24H IV 05/29/24 01:15 06/14/24 03:10 5 MLS/HR Pantoprazole Sodium (Protonix) 40 mg BID IV 05/29/24 22:00 06/14/24 10:08 40 MG Enteral Nutritional Formula (Nepro With Carb Steady) 1,000 ml 30ML/HR GT 05/30/24 11:00 06/14/24 10:16 1,000 ML Metoprolol Tartrate (Lopressor Tablet) 50 mg BID PO 06/02/24 10:45 06/14/24 12:33 50 MG Diagnostic Test (Pha) (Accu-Chek Comfort Curve T) 1 strip Q6HR 06/02/24 12:00 06/14/24 17:44 1 STRIP Insulin Human Regular (InsuLIN R) Q6HR SC 06/02/24 12:00 Dextrose 50 ml UD PRN IV 06/02/24 10:45 06/13/24 12:03 50 ML Hydralazine HCl (Apresoline Injection) 10 mg Q4HPRN PRN IV 06/03/24 15:15 06/14/24 17:55 10 MG Heparin Sodium (Porcine) 4,000 units PRN PRN IV 06/07/24 09:00 Hydralazine HCl (Apresoline Tablet) 100 mg Q8HR PO 06/07/24 14:00 06/14/24 15:02 100 MG Meropenem 50 ml @ 17 mls/hr Q12H IV 06/08/24 19:00 06/14/24 18:17 17 MLS/HR Acetylcysteine (Mucomyst Inahalation 10%) 100 mg Q6HR NEB 06/09/24 18:00 06/14/24 12:22 100 MG Amlodipine Besylate (Norvasc Tablet) 10 mg DAILY PO 06/10/24 10:00 06/14/24 10:09 10 MG Enoxaparin Sodium (Lovenox) 40 mg DAILY SC 06/10/24 10:00 UNV Levetiracetam 100 ml @ 400 mls/hr DAILY IV 06/12/24 10:00 06/14/24 10:08 400 MLS/HR Bumetanide (Bumex Injection) 2 mg BIDD IV 06/14/24 13:15 06/14/24 18:03 2 MG Vital Signs Date Time Temp Pulse Resp B/P (MAP) Pulse Ox O2 Delivery O2 Flow Rate FiO2 06/14/24 18:03 121/73 06/14/24 18:00 30 06/14/24 18:00 91 06/14/24 16:06 18 94 06/14/24 16:00 98.5 98.5 06/14/24 10:00 Mechanical Ventilator+ General: Intubated and sedated HEENT: Trach in place, NG tube in place, Heart: Regular rate and rhythm Abdomen: soft, nontender nondistended, colostomy left lower quadrant Labs: Labs reviewed Imaging: Reviewed Assessment: 1. Respiratory failure 2. History of liver disease, ascites on CT scan 3. CHF 4. Diabetes 5. Anemia Plan: 1. We will obtain consent and plan for G-tube placement, likely tomorrow 2. Follow labs 3. Hold anticoagulation 4. Follow H&H and transfuse 5. Continue current medication LUISA PALACIOS MD Jun 14, 2024 18:45
--- NOTE | 2024-06-14 19:43 | DVHPN2 ---
Progress Note Date Seen: Jun 14, 2024 Has the PT tested + for MRSA If YES, has PT been informed?: Yes Medical Necessity Reason Pt with a Central, PICC or Fol: Yes The following are medically ne: Central Line, Rubio Catheter Reason for rubio catheter: Strict I&O Subjective Patient reports: Other (Events noted catheter not working yesterday) Review of Systems: Deferred Objective vital signs Vital Sign Date Time Temp Pulse Resp B/P (MAP) Pulse Ox O2 Delivery O2 Flow Rate FiO2 06/14/24 19:00 94 18 157/74 (101) 97 06/14/24 18:33 30 06/14/24 16:00 98.5 98.5 06/14/24 10:00 Mechanical Ventilator+ Total Intake and Output 06/13/24 06/13/24 06/14/24 15:00 23:00 07:00 Intake Total 208 ml 132.5 ml 277.5 ml Output Total 165 ml 50 ml Balance 208 ml -32.5 ml 227.5 ml medications Current Medications Medications Dose Ordered Sig/[place] Route Start Time Stop Time Status Last Admin Dose Admin Midazolam HCl 50 ml @ 1 mls/hr Q24H IV 05/28/24 21:15 06/13/24 12:57 5 MLS/HR Albuterol 2.5 mg Q6HPRN PRN NEB 05/29/24 00:00 06/14/24 18:46 2.5 MG Fentanyl Citrate 250 ml @ 2.5 mls/hr Q24H IV 05/29/24 01:15 06/14/24 03:10 5 MLS/HR Pantoprazole Sodium 40 mg BID IV 05/29/24 22:00 06/14/24 10:08 40 MG Enteral Nutritional Formula 1,000 ml 30ML/HR GT 05/30/24 11:00 06/14/24 10:16 1,000 ML Metoprolol Tartrate 50 mg BID PO 06/02/24 10:45 06/14/24 12:33 50 MG Diagnostic Test (Pha) 1 strip Q6HR 06/02/24 12:00 06/14/24 17:44 1 STRIP Insulin Human Regular Q6HR SC 06/02/24 12:00 Dextrose 50 ml UD PRN IV 06/02/24 10:45 06/13/24 12:03 50 ML Hydralazine HCl 10 mg Q4HPRN PRN IV 06/03/24 15:15 06/14/24 17:55 10 MG Heparin Sodium (Porcine) 4,000 units PRN PRN IV 06/07/24 09:00 Hydralazine HCl 100 mg Q8HR PO 06/07/24 14:00 06/14/24 15:02 100 MG Meropenem 50 ml @ 17 mls/hr Q12H IV 06/08/24 19:00 06/14/24 18:17 17 MLS/HR Acetylcysteine 100 mg Q6HR NEB 06/09/24 18:00 06/14/24 18:47 100 MG Amlodipine Besylate 10 mg DAILY PO 06/10/24 10:00 06/14/24 10:09 10 MG Enoxaparin Sodium 40 mg DAILY SC 06/10/24 10:00 UNV Levetiracetam 100 ml @ 400 mls/hr DAILY IV 06/12/24 10:00 06/14/24 10:08 400 MLS/HR Bumetanide 2 mg BIDD IV 06/14/24 13:15 06/14/24 18:03 2 MG Examination: LUNGS:Abnormal, MSK:Abnormal, NEURO:Abnormal laboratory and microbiology Laboratory Tests 06/14/24 03:23 Test 06/14/24 03:23 Range/Units Serum Glucose 81 74-106 mg/dL Microbiology Date/Time Source Procedure Growth Status 06/11/24 16:06 Bronchial Washings Gram Stain - Final Resulted 06/11/24 16:06 Respiratory Culture - Preliminary Acinetobacter baumannii Pseudomonas aeruginosa Resulted 06/10/24 04:52 Trachea Gram Stain - Final Resulted 06/10/24 04:52 Respiratory Culture - Preliminary Pseudomonas aeruginosa Acinetobacter baumannii MDRO Acinetobacter baumannii Resulted 06/09/24 18:54 Blood Blood Culture - Final NO GROWTH AFTER 5 DAYS OF INCUBATION. Complete 05/30/24 11:45 Pleural Fluid Gram Stain - Final Complete 05/30/24 11:45 Pleural Fluid Body Fluid Culture - Final Complete 05/28/24 22:36 Urine - Catheterized Urine Culture - Final Enterobacter cloacae Escherichia coli Enterococcus faecalis - VRE Complete Problem List/Assessment/Plan Problem List/Assessment/Plan Acute kidney injury on chronic kidney disease stage 4 -> likely septic ATN needing HD Acute respiratory failure on vent Anemia suspected due to low blood loss s/p PRBC Hypernatremia Hypokalemia Metabolic acidosis Chronic urinary retention sepsis due to bacteremia recs Patient had access issues he will need tunneled catheter on Sunday and then dialysis after Status post tracheostomy yesterday Epogen with dialysis Next dialysis sunday Plan discussed with: Other My Orders My Orders Orders - SUKI MERINO MD Procedure Category Date Status Time Bumetanide Injection PHA 06/14/24 In Process (Bumex Injection) 13:15 Dietary Evaluation Review Comments: 1) If GI is assessible consider Jevity 1.2 @ 60 ml/hr x24 hrs goal rate as tolerated 2) If pt remains NPO >7 days consider TPN to meet at least 75% of estimated needs 3) Advance pt diet when medically feasible to a Cardiac/Renal Specific K2,2gmNA,low phos,60g Pro diet modified per [employer]NEY[employer] recommendations 4) Continue current plan of care Expected Outcomes/Goals: 1) Pt to receive adequate nutrition support 2) Pt diet to advance CC Plasma Assessment Blood Product Administration S: [id number] SUKI MERINO MD Jun 14, 2024 19:43
--- NOTE | 2024-06-14 23:43 | DVHPN2 ---
Progress Note - Dictate Date Seen: Jun 14, 2024 Has the PT tested + for MRSA If YES, has PT been informed?: Yes Medical Necessity Reason Pt with a Central, PICC or Fol: Yes The following are medically ne: Central Line, Rubio Catheter Reason for rubio catheter: Strict I&O Subjective Patient seen and examined at bedside. Sedated, intubated on mechanical ventilator. S/p trach Overnight events reviewed. vital signs Vital Sign Date Time Temp Pulse Resp B/P (MAP) Pulse Ox O2 Delivery O2 Flow Rate FiO2 06/14/24 23:15 91 18 158/74 (102) 96 06/14/24 22:12 30 06/14/24 20:01 99.1 99.1 06/14/24 10:00 Mechanical Ventilator+ Total Intake and Output 06/13/24 06/13/24 06/14/24 15:00 23:00 07:00 Intake Total 208 ml 132.5 ml 277.5 ml Output Total 165 ml 50 ml Balance 208 ml -32.5 ml 227.5 ml medications Current Medications Medications Dose Ordered Sig/[place] Route Start Time Stop Time Status Last Admin Dose Admin Midazolam HCl 50 ml @ 1 mls/hr Q24H IV 05/28/24 21:15 06/13/24 12:57 5 MLS/HR Albuterol 2.5 mg Q6HPRN PRN NEB 05/29/24 00:00 06/14/24 18:46 2.5 MG Fentanyl Citrate 250 ml @ 2.5 mls/hr Q24H IV 05/29/24 01:15 06/14/24 03:10 5 MLS/HR Pantoprazole Sodium 40 mg BID IV 05/29/24 22:00 06/14/24 21:55 40 MG Enteral Nutritional Formula 1,000 ml 30ML/HR GT 05/30/24 11:00 06/14/24 10:16 1,000 ML Metoprolol Tartrate 50 mg BID PO 06/02/24 10:45 06/14/24 21:54 50 MG Diagnostic Test (Pha) 1 strip Q6HR 06/02/24 12:00 06/14/24 17:44 1 STRIP Insulin Human Regular Q6HR SC 06/02/24 12:00 Dextrose 50 ml UD PRN IV 06/02/24 10:45 06/13/24 12:03 50 ML Hydralazine HCl 10 mg Q4HPRN PRN IV 06/03/24 15:15 06/14/24 17:55 10 MG Heparin Sodium (Porcine) 4,000 units PRN PRN IV 06/07/24 09:00 Hydralazine HCl 100 mg Q8HR PO 06/07/24 14:00 06/14/24 21:55 100 MG Meropenem 50 ml @ 17 mls/hr Q12H IV 06/08/24 19:00 06/14/24 18:17 17 MLS/HR Acetylcysteine 100 mg Q6HR NEB 06/09/24 18:00 06/14/24 18:47 100 MG Amlodipine Besylate 10 mg DAILY PO 06/10/24 10:00 06/14/24 10:09 10 MG Enoxaparin Sodium 40 mg DAILY SC 06/10/24 10:00 UNV Levetiracetam 100 ml @ 400 mls/hr DAILY IV 06/12/24 10:00 06/14/24 10:08 400 MLS/HR Bumetanide 2 mg BIDD IV 06/14/24 13:15 06/14/24 18:03 2 MG objective Gen.: Patient lying in bed in medical ICU. Sedated, intubated on mechanical ventilator. S/p trach. Head: Normocephalic, atraumatic. Eyes: PERRLA. Ears: Normal external anatomy. Throat: Endotracheal tube and orogastric tube in place. Neck: Trach in place. Chest: Transmitted breath sounds bilaterally. Decreased air entry bilaterally. No wheezing. Bibasilar crackles. Cardiovascular: Positive S1, positive S2. Regular rate and rhythm. Abdomen: Positive bowel sounds in all 4 quadrants. Soft, nontender, nondistended. : Rubio in place. Normal external genitalia. Rectal: Deferred. Skin: Warm, dry. Intact. Extremities: 2+ radial pulses bilaterally. No lower extremity edema. Neuro: Sedated. laboratory and microbiology Laboratory Tests 06/14/24 03:23 Test 06/14/24 03:23 Range/Units Serum Glucose 81 74-106 mg/dL Assessment/Plan Impression: Acute hypoxic respiratory failure On mechanical ventilator Multifocal pneumonia Atelectasis Congestive heart failure Events: Remains on vent support On AC mode; RR 18. VT 500, PEEP 5, FiO2 of 30%. Tube feeds for nutritional support On Fentanyl drip. Plan for PEG Plan for tunneled catheter. Continue antibiotics Patient is s/p trach yesterday.. Off pressors, hemodynamically stable. HD per Nephrology Monitor renal function Monitor electrolytes. Supplement as necessary. NTS PRN. S/p bronchoscopy with BAL on 06/02. See procedure note for full details. Rest of plan as noted below Plan: s/p intubation on mechanical ventilator. Vent settings; AC mode; RR 18. VT 500, PEEP 5, FiO2 of 30%. S/p trach ABG reviewed, notable for acidemia CXR reviewed, demonstrated e/o multifocal pneumonia, devices in place. Titrate FIO2 to keep O2 saturation above 90%. VAP bundle. Daily ABG and CXR while intubated Sedate for vent synchrony Off pressors. Antibiotics F/u cultures. Positive hepatitis C. IV fluids at 100 ml/hr Maintain euvolemia Monitor renal function Monitor electrolytes. Supplement as necessary. Monitor ins and outs. Tube feeds for nutritional support. GI prophylaxis. DVT prophylaxis. Prognosis: Poor given patient's multiple co-morbidities. Condition: Critical Rest of plan per hospitalist and other consultants. A total of 35 minutes of critical care time was spent reviewing the patient record, examining the patient, making a diagnostic and therapeutic plan, discussing this plan with the medical personnel, following up on diagnostic studies and following the patient for clinical stability excluding any and all procedures. At least 50% of this time was spent in direct, [id number] contact. Thank you Anthony Ugalde NP, for allowing me to participate in this patient's care. Further recommendations will depend on the patient's clinical course. Please do not hesitate to contact me if you have any questions or concerns. This medical document was created using an electronic medical record system with [employer] system. Although these documentations are being carefully reviewed, there may still be some phonetic and typographical changes. The errors are purely typographical, due to imperfection on the software program, and do not reflect any compromise in the patient's medical care. Dietary Evaluation Review Comments: 1) If GI is assessible consider Jevity 1.2 @ 60 ml/hr x24 hrs goal rate as tolerated 2) If pt remains NPO >7 days consider TPN to meet at least 75% of estimated needs 3) Advance pt diet when medically feasible to a Cardiac/Renal Specific K2,2gmNA,low phos,60g Pro diet modified per [employer]PERATOR recommendations 4) Continue current plan of care Expected Outcomes/Goals: 1) Pt to receive adequate nutrition support 2) Pt diet to advance Plan discussed with: Other (DORCAS Shen) Critical Care Time(min): 35 CC Plasma Assessment Blood Product Administration S: [id number] ELIANE ALTAMIRANO MD Jun 14, 2024 23:43
[2024-06-15] VITALS (112 sets, daily range): BP systolic 105–199; BP diastolic 56–93; PULSE 79–100; RESP 9–27; TEMP 98.3–99; O2SAT 94–100
[2024-06-15 04:07] LABS: Basophils # (auto) 0.1 10 ^3/uL (0-0.2); Basophils % (auto) 0.8 % (0.0-2.0); Eosinophils # (auto) 0.2 10 ^3/uL (0-0.8); Hematocrit 26.7 % (41.0-53.0); Hemoglobin 9.1 g/dL (13.5-17.5); Lymphocytes # (auto) 1.1 10 ^3/uL (0.4-5.4); Lymphocytes % (auto) 15.3 % (10.0-50.0); Mean Corpuscular Hgb Conc. 33.9 g/dL (32.0-36.0); Mean Corpuscular Volume 94.4 fL (80.0-100.0); Monocytes # (auto) 1.1 10 ^3/uL (0-1.3); Monocytes % (auto) 14.9 % (0.0-12.0); Neutrophils # (auto) 4.6 10 ^3/uL (1.6-8.6); Nucleated Red Blood Cells % 0.1 %; Platelet Count (auto) 127 10^3/uL (140-450); Red Blood Cells 2.83 10^6/uL (4.5-5.90); Red Cell Distribution Width 16.2 % (11.8-14.3); White Blood Cell 7.1 10^3/uL (4.4-10.8)
[2024-06-15 04:22] LABS: Alkaline Phosphatase 89 U/L (46-116); Anion Gap 11 (5-15); BUN/Creatinine Ratio 6.8 (10.0-20.0); Calcium 9.3 mg/dL (8.7-10.4); Carbon Dioxide 24 mmol/L (20-31); Chloride 105 mmol/L (98-107); Sodium 140 mmol/L (136-145)
[2024-06-15 04:23] LABS: Aspartate Aminotransferase 16 U/L (13-40)
[2024-06-15 04:32] LABS: Alanine Aminotransferase < 9 U/L (7-40); Albumin 2.7 g/dL (3.2-4.8); Bilirubin, Total < 0.2 mg/dL (0.2-1.0); Blood Urea Nitrogen 25 mg/dL (9-23); Glucose 70 mg/dL (74-106)
[2024-06-15 07:10] LABS: Base Excess 0.9 mmol/L (-2.0-3.0)
--- NOTE | 2024-06-15 07:55 | DVH ---
CLINICAL INFORMATION: 69 years old, Male; TRACHEOSTOMY. TECHNIQUE: Single AP portable chest radiograph was obtained. COMPARISON: XY CHEST XRAY 1 VIEW on DOS: 06/14/24, XY CHEST XRAY 1 VIEW on DOS: 06/13/24, XY CHEST XR AY 1 VIEW on DOS: 06/12/24 FINDINGS: Stable positioning of the tracheostomy tube, enteric tube, right internal jugular central venous cath eter, and left internal jugular catheter. Small left pleural effusion with overlying atelectasis and consolidation. Ill-defined bilateral airspace opacities are stable. No pneumothorax. No significant i nterval change. IMPRESSION: No significant interval change as detailed above.
[2024-06-15] MEDS ORDERED: LIDOCAINE 2%HCL (LOCAL ANESTH.) INJ 20ML MDV ONE (07:56)
[2024-06-15] MEDS ORDERED: SODIUM CHLORIDE LOCK 10 ML ONE (07:59)
--- NOTE | 2024-06-15 09:08 | ECG ---
[facility] Test Date: 2024-06-13 Test Time: 11:00:11 Pat Name: FERNANDO HIGH Department: Room: [address] [place] [address] A Gender: M Blade Aligner: : 1955 Requested By: ANISA ROBLES Order Number: [id number] Reading MD: Shayy Rich Measurements Intervals [place] Rate: 96 P: -6 [place]: 138 QRS: -61 QRSD: 108 T: 100 QT: 372 QTc: 469 Interpretive Statements Sinus rhythm with premature supraventricular complexes Left anterior fascicular block Cannot rule out Inferior infarct (masked by fascicular block?) , age undetermined Anterior infarct , age undetermined Electronically Signed On 06-16-2024 9:08:48 PST by Shayy Rich Please click the below link to view image of tracing.
--- NOTE | 2024-06-15 09:25 | DVHPN2 ---
Subjective Sedated. Ventilator support via tracheostomy Reviewed: Care Plan, H&P, Labs, Medications, Previous Orders, Radiology, Other (Consultants) Changes from previous H/P or p: No Changes General: Per HPI Objective Vitals Vital Signs Date Time Temp Pulse Resp B/P (MAP) Pulse Ox O2 Delivery O2 Flow Rate FiO2 06/15/24 09:21 141/58 06/15/24 09:15 94 16 97 06/15/24 08:02 30 06/15/24 08:00 98.5 98.5 06/14/24 20:00 Mechanical Ventilator+ Intake/Output Intake and Output 06/15/24 07:00 Intake Total 980 ml Output Total 265 ml Balance 715 ml Intake Oral 120 ml IV Total 600 ml Tube Feeding 260 ml Output Urine Total 65 ml Stool Total 150 ml Urine/Stool Mix 50 ml General Appearance: Other (Sedated) HEENT: Atraumatic, PERRLA Lungs: Other (Few crackles bilateral lungs) Cardiovascular: Regular rate Abdomen: Normal bowel sounds, Soft Musculoskeletal: Other (Sedated) Extremities: Other (Edema left lower extremity. Right AKA) Medications Current Medications Medications Dose Ordered Sig/[place] Route Start Time Stop Time Status Last Admin Dose Admin Midazolam HCl 50 ml @ 1 mls/hr Q24H IV 05/28/24 21:15 06/13/24 12:57 5 MLS/HR Albuterol 2.5 mg Q6HPRN PRN NEB 05/29/24 00:00 06/15/24 06:37 2.5 MG Fentanyl Citrate 250 ml @ 2.5 mls/hr Q24H IV 05/29/24 01:15 06/14/24 03:10 5 MLS/HR Pantoprazole Sodium 40 mg BID IV 05/29/24 22:00 06/15/24 09:22 40 MG Enteral Nutritional Formula 1,000 ml 30ML/HR GT 05/30/24 11:00 06/14/24 10:16 1,000 ML Metoprolol Tartrate 50 mg BID PO 06/02/24 10:45 06/14/24 21:54 50 MG Diagnostic Test (Pha) 1 strip Q6HR 06/02/24 12:00 06/15/24 05:50 1 STRIP Insulin Human Regular Q6HR SC 06/02/24 12:00 Dextrose 50 ml UD PRN IV 06/02/24 10:45 06/15/24 08:57 50 ML Hydralazine HCl 10 mg Q4HPRN PRN IV 06/03/24 15:15 06/15/24 07:11 10 MG Heparin Sodium (Porcine) 4,000 units PRN PRN IV 06/07/24 09:00 Hydralazine HCl 100 mg Q8HR PO 06/07/24 14:00 06/15/24 05:39 100 MG Meropenem 50 ml @ 17 mls/hr Q12H IV 06/08/24 19:00 06/15/24 06:56 17 MLS/HR Acetylcysteine 100 mg Q6HR NEB 06/09/24 18:00 06/15/24 06:37 100 MG Amlodipine Besylate 10 mg DAILY PO 06/10/24 10:00 06/15/24 09:21 10 MG Enoxaparin Sodium 40 mg DAILY SC 06/10/24 10:00 UNV Levetiracetam 100 ml @ 400 mls/hr DAILY IV 06/12/24 10:00 06/15/24 09:21 400 MLS/HR Bumetanide 2 mg BIDD IV 06/14/24 13:15 06/15/24 05:38 2 MG Laboratory Results Laboratory Tests 06/15/24 03:17 Chemistry Test 06/15/24 03:17 Albumin 2.7 g/dL (3.2-4.8) L Calcium Level 9.3 mg/dL (8.7-10.4) Total Protein 6.0 g/dL (5.7-8.2) Coagulation Test 06/14/24 14:35 Prothrombin Time 11.9 sec (9.3-11.8) H Prothrombin Time INR 1.13 (0.9-1.15) LFT Test 06/15/24 03:17 Alanine Aminotransferase (ALT) < 9 U/L (7-40) Alkaline Phosphatase 89 U/L (46-116) Aspartate Amino Transferase (AST) 16 U/L (13-40) Total Bilirubin < 0.2 mg/dL (0.2-1.0) L Urinalysis Test 05/28/24 22:36 05/30/24 04:30 Urine Color Dark-brown (Yellow) Urine Clarity Ex.turbid (Clear) Urine pH 6.0 (5.0-9.0) Urine Specific [place] 1.017 (1.001-1.035) Urine Protein 2+ (Negative) H Urine Ketones Trace (Negative) Urine Blood 1+ /uL (Negative) H Urine Nitrite Negative (Negative) Urine Bilirubin Negative (Negative) Urine Urobilinogen Normal mg/dL (Negative) Urine Leukocyte Esterase 3+ /uL (Negative) Urine RBC 56 /hpf (0 - 3) Urine WBC 3664 /hpf (0 - 3) Urine WBC Clumps Present /hpf (None Seen) Urine Squamous Epithelial Cells Many /hpf (<5) Urine Bacteria Mod /hpf (None Seen) H Urine Glucose Normal mg/dL (Normal) Urine Creatinine 33.57 mg/dL (30.0-125.0) Urine Sodium 85 mmol/L (40-220) Blood Gas Results Test 06/15/24 06:58 Arterial Blood pH 7.457 (7.350-7.450) FiO2 % 30.0 Microbiology Microbiology Date/Time Source Procedure Growth Status 06/11/24 16:06 Bronchial Washings Gram Stain - Final Resulted 06/11/24 16:06 Respiratory Culture - Preliminary Acinetobacter baumannii Pseudomonas aeruginosa Resulted 06/10/24 04:52 Trachea Gram Stain - Final Resulted 06/10/24 04:52 Respiratory Culture - Preliminary Pseudomonas aeruginosa Acinetobacter baumannii MDRO Acinetobacter baumannii Resulted 06/09/24 18:54 Blood Blood Culture - Final NO GROWTH AFTER 5 DAYS OF INCUBATION. Complete 05/30/24 11:45 Pleural Fluid Gram Stain - Final Complete 05/30/24 11:45 Pleural Fluid Body Fluid Culture - Final Complete 05/28/24 22:36 Urine - Catheterized Urine Culture - Final Enterobacter cloacae Escherichia coli Enterococcus faecalis - VRE Complete Assessment/Plan Assessment/Plan Respiratory failure Sepsis and septic shock Encephalopathy Acute kidney injury atop chronic kidney disease/needing dialysis Anemia status post blood transfusion Thrombocytopenia History of recent seizure Peripheral artery disease and status post right AKA HTN Plan: Ventilator support. Patient will have PEG tube placed today. labs. Tunneled catheter for dialysis on Sunday. Total critical care time 35 minutes Plan discussed with: Other (NURSING) My Orders Orders - ANISA ROBLES MD Procedure Category Date Status Time Abg W/ Co-Ox RT 06/15/24 Logged 06:00 Date of Service: Jun 15, 2024 Billing Provider: ANISA ROBLES MD Common Visit Codes: 63988-[id number] CARE 30-74 MIN ANISA ROBLES MD Jun 15, 2024 09:24
--- NOTE | 2024-06-15 10:27 | ECG ---
[facility] Test Date: 2024-06-01 Test Time: 15:44:31 Pat Name: FERNANDO HIGH Department: Room: [address] [place] [address] A Gender: M Credit Card Analyst: SYLVESTER : 1955 Requested By: ELIANE ALTAMIRANO Order Number: [id number] Reading MD: Shayy Rich Measurements Intervals [place] Rate: 140 P: 0 NE: 0 QRS: -61 QRSD: 108 T: 110 QT: 286 QTc: 436 Interpretive Statements Atrial fibrillation with rapid ventricular response with premature ventricular or aberrantly conducted complexes Left anterior fascicular block Septal infarct , age undetermined ST & T wave abnormality, consider lateral ischemia or digitalis effect Electronically Signed On 06-16-2024 9:07:46 PST by Shayy Rich Please click the below link to view image of tracing.
[2024-06-15] MEDS: D5W 5% 1,000 ML IV SCH (11:38)
[2024-06-15] MEDS: hydrALAZINE HCL 20 MG/ML VL IV PRN (15:51)
[2024-06-15] MEDS: MIDAZOLAM HCL 5 MG/ML-1ML VIAL ONE (16:16)
[2024-06-15] MEDS: fentaNYL CITRATE 100 MCG/2 ML VL ONE (16:24)
--- NOTE | 2024-06-15 17:29 | DVHPN2 ---
Progress Note Date Seen: Jun 15, 2024 Has the PT tested + for MRSA If YES, has PT been informed?: Yes Medical Necessity Reason Pt with a Central, PICC or Fol: Yes The following are medically ne: Central Line, Rubio Catheter Reason for rubio catheter: Strict I&O Subjective Patient reports: Other (no events) Objective vital signs Vital Sign Date Time Temp Pulse Resp B/P (MAP) Pulse Ox O2 Delivery O2 Flow Rate FiO2 06/15/24 16:00 30 06/15/24 16:00 18 96 Mechanical Ventilator+ 06/15/24 15:51 176/84 06/15/24 15:39 88 06/15/24 12:00 98.3 98.3 Total Intake and Output 06/14/24 06/14/24 06/15/24 15:00 23:00 07:00 Intake Total 474 ml 331 ml 180 ml Output Total 185 ml 80 ml Balance 474 ml 146 ml 100 ml medications Current Medications Medications Dose Ordered Sig/[place] Route Start Time Stop Time Status Last Admin Dose Admin Midazolam HCl 50 ml @ 1 mls/hr Q24H IV 05/28/24 21:15 06/13/24 12:57 5 MLS/HR Albuterol 2.5 mg Q6HPRN PRN NEB 05/29/24 00:00 06/15/24 12:06 2.5 MG Pantoprazole Sodium 40 mg BID IV 05/29/24 22:00 06/15/24 09:22 40 MG Enteral Nutritional Formula 1,000 ml 30ML/HR GT 05/30/24 11:00 06/14/24 10:16 1,000 ML Metoprolol Tartrate 50 mg BID PO 06/02/24 10:45 06/15/24 14:14 50 MG Diagnostic Test (Pha) 1 strip Q6HR 06/02/24 12:00 06/15/24 13:42 1 STRIP Insulin Human Regular Q6HR SC 06/02/24 12:00 Dextrose 50 ml UD PRN IV 06/02/24 10:45 06/15/24 08:57 50 ML Heparin Sodium (Porcine) 4,000 units PRN PRN IV 06/07/24 09:00 Hydralazine HCl 100 mg Q8HR PO 06/07/24 14:00 06/15/24 05:39 100 MG Meropenem 50 ml @ 17 mls/hr Q12H IV 06/08/24 19:00 06/15/24 06:56 17 MLS/HR Acetylcysteine 100 mg Q6HR NEB 06/09/24 18:00 06/15/24 12:06 100 MG Amlodipine Besylate 10 mg DAILY PO 06/10/24 10:00 06/15/24 09:21 10 MG Enoxaparin Sodium 40 mg DAILY SC 06/10/24 10:00 UNV Levetiracetam 100 ml @ 400 mls/hr DAILY IV 06/12/24 10:00 06/15/24 09:21 400 MLS/HR Bumetanide 2 mg BIDD IV 06/14/24 13:15 06/15/24 05:38 2 MG Dextrose 1,000 ml @ 50 mls/hr Q20H IV 06/15/24 09:45 06/16/24 10:00 06/15/24 11:38 50 MLS/HR Hydralazine HCl 20 mg Q2HPRN PRN IV 06/15/24 14:00 06/15/24 15:51 20 MG Fentanyl Citrate 250 ml @ 2.5 mls/hr Q24H IV 06/15/24 12:00 Examination: GENERAL:Abnormal, MSK:Abnormal, NEURO:Abnormal laboratory and microbiology Laboratory Tests 06/15/24 03:17 Test 06/15/24 03:17 Range/Units Serum Glucose 70 L 74-106 mg/dL Microbiology Date/Time Source Procedure Growth Status 06/11/24 16:06 Bronchial Washings Gram Stain - Final Resulted 06/11/24 16:06 Respiratory Culture - Preliminary Acinetobacter baumannii Pseudomonas aeruginosa Resulted 06/10/24 04:52 Trachea Gram Stain - Final Resulted 06/10/24 04:52 Respiratory Culture - Preliminary Pseudomonas aeruginosa Acinetobacter baumannii MDRO Acinetobacter baumannii Resulted 06/09/24 18:54 Blood Blood Culture - Final NO GROWTH AFTER 5 DAYS OF INCUBATION. Complete 05/30/24 11:45 Pleural Fluid Gram Stain - Final Complete 05/30/24 11:45 Pleural Fluid Body Fluid Culture - Final Complete 05/28/24 22:36 Urine - Catheterized Urine Culture - Final Enterobacter cloacae Escherichia coli Enterococcus faecalis - VRE Complete Problem List/Assessment/Plan Problem List/Assessment/Plan Acute kidney injury on chronic kidney disease stage 4 -> likely septic ATN needing HD Acute respiratory failure on vent Anemia suspected due to low blood loss s/p PRBC Hypernatremia Hypokalemia Metabolic acidosis Chronic urinary retention sepsis due to bacteremia recs Patient had access issues he will need tunneled catheter on Sunday and then dialysis after Status post tracheostomy yesterday Epogen with dialysis Next dialysis sunday bumex iv bid Plan discussed with: Other Dietary Evaluation Review Comments: 1) If GI is assessible consider Jevity 1.2 @ 60 ml/hr x24 hrs goal rate as tolerated 2) If pt remains NPO >7 days consider TPN to meet at least 75% of estimated needs 3) Advance pt diet when medically feasible to a Cardiac/Renal Specific K2,2gmNA,low phos,60g Pro diet modified per LEAD MANUFACTURING TECHNICIAN recommendations 4) Continue current plan of care Expected Outcomes/Goals: 1) Pt to receive adequate nutrition support 2) Pt diet to advance CC Plasma Assessment Blood Product Administration S: [id number] SUKI MERINO MD Jun 15, 2024 17:29
--- NOTE | 2024-06-15 17:34 | DVHNC2 ---
Procedure - EGD/PEG Note DATE OF PROCEDURE: 06/15/2024 PATIENT NAME: Saad Umana : 1955 PATIENT MAGNETIC TESTING TECHNICIAN: Ngoc Gomez MD TITLE OF OPERATION: Esophagogastroduodenoscopy, and percutaneous endoscopic gastrostomy tube placement. INDICATION FOR PROCEDURE: Dysphagia ASA: III MALLAMPATI SCORE: I ANESTHESIA: Moderate sedation with Versed 5 mg, Fentanyl 25 mcg IV PROCEDURE: After explanation of risks, benefits and alternatives of the procedure to the patient's family (X), an informed consent was obtained. The patient was brought to the GI suite, placed in the supine position, connected to monitoring devices including pulse oximetry and EKG, then premedication was given. The Olympus gastroscope was inserted through the patient's mouth and advanced under direct guidance to the esophagus which was normal to the gastroesophageal junction. The stomach was normal to the pylorus including retroflexion of the cardia and fundus. Scope was then advanced further into the duodenal bulb and second portion of duodenum which were normal. Afterwards, a point with good 1:1 finger palpation and transillumination was identified on the abdominal wall. The area was prepped and draped in a sterile fashion. 1% lidocaine was used to anesthetize the skin and subcutaneous tissue. 25-gauge needle was used and negative pressure was applied on the syringe as the needle was penetrating the subcutaneous tissue into the stomach, and no air bubbles were seen in the syringe itself until the needle was seen penetrating the stomach on the endoscopy monitor. A 9 mm cut was performed on the abdominal wall, then a trocar needle was inserted which was threaded with a color-coded wire. The wire was then grabbed using a snare. Then a [employer] 20- English PEG tube was placed successfully using the pull method with the outside adrianna noted at 3 cm. The gastroscope was again inserted through the patient's mouth, advanced to the esophagus and the stomach, and the internal bolster of the PEG tube was seen in the stomach, freely mobile in a 360 degrees fashion. The scope was then withdrawn. Afterwards, a triple antibiotic ointment was applied to the PEG tube site followed by a dry dressing The procedure then concluded and the patient was transferred to the recovery area to recover in a satisfactory condition. COMPLICATIONS: None and patient is medically stable. PROCEDURE TOLERANCE: Good ESTIMATED BLOOD LOSS (EBL): 0mL IMPRESSION: 1. Normal EGD to the 2nd portion of the duodenum. 2. Successful placement of a 20-English PEG tube with the outside adrianna noted at 3 cm. Sedation Start Time: see nursing note Procedure Start Time: see nursing note Procedure End Time: see nursing note RECOMMENDATION: 1. Mittens at all the times to avoid pulling out the tube. Abdominal binder hard to place due to colostomy bag. 2. May use PEG tube for medications in four hours and for feeding tomorrow. 3. Avoid dressing, keep the stoma site dry and clean. SPECIMENS: None Thank you for allowing me to participate in the care of your patient. NGOC GOMEZ MD Jun 15, 2024 17:34
[2024-06-15] MEDS: fentaNYL Drip 2500mCg/250mlNS 250 ML IV SCH (21:03)
--- NOTE | 2024-06-15 23:02 | DVHPN2 ---
Progress Note - Dictate Date Seen: Jun 15, 2024 Has the PT tested + for MRSA If YES, has PT been informed?: Yes Medical Necessity Reason Pt with a Central, PICC or Fol: Yes The following are medically ne: Central Line, Rubio Catheter Reason for rubio catheter: Strict I&O Subjective Patient seen and examined at bedside. Sedated, intubated on mechanical ventilator. S/p trach Overnight events reviewed. vital signs Vital Sign Date Time Temp Pulse Resp B/P (MAP) Pulse Ox O2 Delivery O2 Flow Rate FiO2 06/15/24 22:22 89 18 144/69 (94) 96 30 06/15/24 22:00 Mechanical Ventilator+ 06/15/24 16:00 98.4 98.4 Total Intake and Output 06/14/24 06/14/24 06/15/24 15:00 23:00 07:00 Intake Total 474 ml 331 ml 180 ml Output Total 185 ml 80 ml Balance 474 ml 146 ml 100 ml medications Current Medications Medications Dose Ordered Sig/[place] Route Start Time Stop Time Status Last Admin Dose Admin Midazolam HCl 50 ml @ 1 mls/hr Q24H IV 05/28/24 21:15 06/13/24 12:57 5 MLS/HR Albuterol 2.5 mg Q6HPRN PRN NEB 05/29/24 00:00 06/15/24 18:20 2.5 MG Pantoprazole Sodium 40 mg BID IV 05/29/24 22:00 06/15/24 09:22 40 MG Enteral Nutritional Formula 1,000 ml 30ML/HR GT 05/30/24 11:00 06/14/24 10:16 1,000 ML Metoprolol Tartrate 50 mg BID PO 06/02/24 10:45 06/15/24 14:14 50 MG Diagnostic Test (Pha) 1 strip Q6HR 06/02/24 12:00 06/15/24 19:13 1 STRIP Insulin Human Regular Q6HR SC 06/02/24 12:00 Dextrose 50 ml UD PRN IV 06/02/24 10:45 06/15/24 08:57 50 ML Heparin Sodium (Porcine) 4,000 units PRN PRN IV 06/07/24 09:00 Hydralazine HCl 100 mg Q8HR PO 06/07/24 14:00 06/15/24 05:39 100 MG Meropenem 50 ml @ 17 mls/hr Q12H IV 06/08/24 19:00 06/15/24 19:13 17 MLS/HR Acetylcysteine 100 mg Q6HR NEB 06/09/24 18:00 06/15/24 18:21 100 MG Amlodipine Besylate 10 mg DAILY PO 06/10/24 10:00 06/15/24 09:21 10 MG Enoxaparin Sodium 40 mg DAILY SC 06/10/24 10:00 UNV Levetiracetam 100 ml @ 400 mls/hr DAILY IV 06/12/24 10:00 06/15/24 09:21 400 MLS/HR Bumetanide 2 mg BIDD IV 06/14/24 13:15 06/15/24 19:12 2 MG Dextrose 1,000 ml @ 50 mls/hr Q20H IV 06/15/24 09:45 06/16/24 10:00 06/15/24 11:38 50 MLS/HR Hydralazine HCl 20 mg Q2HPRN PRN IV 06/15/24 14:00 06/15/24 15:51 20 MG Fentanyl Citrate 250 ml @ 2.5 mls/hr Q24H IV 06/15/24 12:00 06/15/24 21:03 5 MLS/HR objective Gen.: Patient lying in bed in medical ICU. Sedated, intubated on mechanical ventilator. S/p trach. Head: Normocephalic, atraumatic. Eyes: PERRLA. Ears: Normal external anatomy. Throat: Endotracheal tube and orogastric tube in place. Neck: Trach in place. Chest: Transmitted breath sounds bilaterally. Decreased air entry bilaterally. No wheezing. Bibasilar crackles. Cardiovascular: Positive S1, positive S2. Regular rate and rhythm. Abdomen: Positive bowel sounds in all 4 quadrants. Soft, nontender, nondistended. : Rubio in place. Normal external genitalia. Rectal: Deferred. Skin: Warm, dry. Intact. Extremities: 2+ radial pulses bilaterally. No lower extremity edema. Neuro: Sedated. laboratory and microbiology Laboratory Tests 06/15/24 03:17 Test 06/15/24 03:17 Range/Units Serum Glucose 70 L 74-106 mg/dL Assessment/Plan Impression: Acute hypoxic respiratory failure On mechanical ventilator Multifocal pneumonia Atelectasis Congestive heart failure Events: Remains on vent support On AC mode; RR 18. VT 500, PEEP 5, FiO2 of 30%. On Fentanyl drip. S/p PEG + trach. LTAC placement. Continue antibiotics Off pressors, hemodynamically stable. Plan for tunneled cath by IR in the AM. Sacral wound getting worse. Wound care. Continue monitoring. Resume tube feeds per GI. HD per Nephrology Monitor renal function Monitor electrolytes. Supplement as necessary. NTS PRN. S/p bronchoscopy with BAL on 06/02. See procedure note for full details. Rest of plan as noted below Plan: s/p intubation on mechanical ventilator. Vent settings; AC mode; RR 18. VT 500, PEEP 5, FiO2 of 30%. S/p trach ABG reviewed, notable for acidemia CXR reviewed, demonstrated e/o multifocal pneumonia, devices in place. Titrate FIO2 to keep O2 saturation above 90%. VAP bundle. Daily ABG and CXR while intubated Sedate for vent synchrony Off pressors. Antibiotics F/u cultures. Positive hepatitis C. IV fluids at 100 ml/hr Maintain euvolemia Monitor renal function Monitor electrolytes. Supplement as necessary. Monitor ins and outs. Tube feeds for nutritional support. GI prophylaxis. DVT prophylaxis. Prognosis: Poor given patient's multiple co-morbidities. Condition: Critical Rest of plan per hospitalist and other consultants. A total of 35 minutes of critical care time was spent reviewing the patient record, examining the patient, making a diagnostic and therapeutic plan, discussing this plan with the medical personnel, following up on diagnostic studies and following the patient for clinical stability excluding any and all procedures. At least 50% of this time was spent in direct, [id number] contact. Thank you Anthony Ugalde NP, for allowing me to participate in this patient's care. Further recommendations will depend on the patient's clinical course. Please do not hesitate to contact me if you have any questions or concerns. This medical document was created using an electronic medical record system with [employer] system. Although these documentations are being carefully reviewed, there may still be some phonetic and typographical changes. The errors are purely typographical, due to imperfection on the software program, and do not reflect any compromise in the patient's medical care. Dietary Evaluation Review Comments: 1) If GI is assessible consider Jevity 1.2 @ 60 ml/hr x24 hrs goal rate as tolerated 2) If pt remains NPO >7 days consider TPN to meet at least 75% of estimated needs 3) Advance pt diet when medically feasible to a Cardiac/Renal Specific K2,2gmNA,low phos,60g Pro diet modified per CENTER MED[employer] AND [employer] DIRECTOR recommendations 4) Continue current plan of care Expected Outcomes/Goals: 1) Pt to receive adequate nutrition support 2) Pt diet to advance Plan discussed with: Other (DORCAS Shen) Critical Care Time(min): 35 CC Plasma Assessment Blood Product Administration S: [id number] ELIANE ALTAMIRANO MD Jun 15, 2024 23:01
[2024-06-16] VITALS (106 sets, daily range): BP systolic 95–203; BP diastolic 6–95; PULSE 93–122; RESP 12–95; TEMP 98–99.6; O2SAT 93–100
[2024-06-16 02:05] LABS: COVID19 ANTIGEN SOFIA FIA NEGATIVE (NEGATIVE); Rapid Influenza A Negative (Negative); Rapid Influenza B Negative (Negative)
[2024-06-16 03:51] LABS: Basophils # (auto) 0 10 ^3/uL (0-0.2); Basophils % (auto) 0.7 % (0.0-2.0); Eosinophils # (auto) 0.2 10 ^3/uL (0-0.8); Eosinophils % (auto) 3.1 % (0.0-7.0); Hematocrit 27.2 % (41.0-53.0); Hemoglobin 8.5 g/dL (13.5-17.5); Lymphocytes # (auto) 0.7 10 ^3/uL (0.4-5.4); Lymphocytes % (auto) 10.4 % (10.0-50.0); Mean Corpuscular Hemoglobin 31.2 pg (28.0-32.0); Mean Corpuscular Hgb Conc. 31.4 g/dL (32.0-36.0); Mean Corpuscular Volume 99.4 fL (80.0-100.0); Monocytes # (auto) 0.8 10 ^3/uL (0-1.3); Monocytes % (auto) 12.5 % (0.0-12.0); Neutrophils # (auto) 4.9 10 ^3/uL (1.6-8.6); Neutrophils % (auto) 73.3 % (37.0-80.0); Platelet Count (auto) 146 10^3/uL (140-450); Red Blood Cells 2.73 10^6/uL (4.5-5.90); Red Cell Distribution Width 16.6 % (11.8-14.3); White Blood Cell 6.7 10^3/uL (4.4-10.8)
[2024-06-16 04:17] LABS: Alkaline Phosphatase 78 U/L (46-116); Anion Gap 13 (5-15); Aspartate Aminotransferase 16 U/L (13-40); BUN/Creatinine Ratio 6.3 (10.0-20.0); Calcium 9.1 mg/dL (8.7-10.4); Carbon Dioxide 21 mmol/L (20-31); Chloride 104 mmol/L (98-107); Potassium 3.9 mmol/L (3.5-5.1); Sodium 138 mmol/L (136-145); Total Protein 5.9 g/dL (5.7-8.2)
[2024-06-16 04:26] LABS: Alanine Aminotransferase < 9 U/L (7-40); Albumin 2.6 g/dL (3.2-4.8); Bilirubin, Total < 0.2 mg/dL (0.2-1.0); Blood Urea Nitrogen 25 mg/dL (9-23); Glucose 71 mg/dL (74-106)
--- NOTE | 2024-06-16 04:34 | DVH ---
CHEST RADIOGRAPH Indication: fu Technique: Single frontal view of the chest was obtained COMPARISON: XY CHEST PORTABLE on DOS: 06/15/24, XY CHEST XRAY 1 VIEW on DOS: 06/14/24, XY CHEST XRAY 1 VIEW on DOS: 06/13/24 FINDINGS: Lines and Tubes: Tracheostomy, right central venous catheter and left central venous catheter in sati sfactory position. Lungs: Multifocal airspace disease. Pleura: No effusion. No pneumothorax. Cardiomediastinal contours: Unremarkable Bones: Unremarkable IMPRESSION: Lines and tubes in satisfactory position. No significant interval change.
[2024-06-16 07:44] LABS: Base Excess -0.7 mmol/L (-2.0-3.0)
[2024-06-16] MEDS: LABETALOL INJECTION 250 MG in SODIUM CHL 0.9% 200 ML IV ONE (09:15)
--- NOTE | 2024-06-16 10:24 | DVHPN2 ---
Progress Note - Dictate Date Seen: Jun 16, 2024 Has the PT tested + for MRSA If YES, has PT been informed?: Yes Medical Necessity Reason Pt with a Central, PICC or Fol: Yes The following are medically ne: Central Line, Rubio Catheter Reason for rubio catheter: Strict I&O Subjective remain intubated in ICU vital signs Vital Sign Date Time Temp Pulse Resp B/P (MAP) Pulse Ox O2 Delivery O2 Flow Rate FiO2 06/16/24 09:42 96 18 95/51 (66) 96 30 06/16/24 08:00 Mechanical Ventilator+ 06/16/24 06:01 99.5 99.5 Total Intake and Output 06/15/24 06/15/24 06/16/24 15:00 23:00 07:00 Intake Total 696.0 ml 596.0 ml 440 ml Output Total 100 ml 200 ml 100 ml Balance 596.0 ml 396.0 ml 340 ml medications Current Medications Medications Dose Ordered Sig/[place] Route Start Time Stop Time Status Last Admin Dose Admin Midazolam HCl 50 ml @ 1 mls/hr Q24H IV 05/28/24 21:15 06/13/24 12:57 5 MLS/HR Albuterol 2.5 mg Q6HPRN PRN NEB 05/29/24 00:00 06/16/24 06:40 2.5 MG Pantoprazole Sodium 40 mg BID IV 05/29/24 22:00 06/16/24 00:01 40 MG Enteral Nutritional Formula 1,000 ml 30ML/HR GT 05/30/24 11:00 06/14/24 10:16 1,000 ML Diagnostic Test (Pha) 1 strip Q6HR 06/02/24 12:00 06/16/24 06:34 1 STRIP Insulin Human Regular Q6HR SC 06/02/24 12:00 Dextrose 50 ml UD PRN IV 06/02/24 10:45 06/15/24 08:57 50 ML Heparin Sodium (Porcine) 4,000 units PRN PRN IV 06/07/24 09:00 Hydralazine HCl 100 mg Q8HR PO 06/07/24 14:00 06/16/24 08:02 100 MG Meropenem 50 ml @ 17 mls/hr Q12H IV 06/08/24 19:00 06/16/24 06:35 17 MLS/HR Acetylcysteine 100 mg Q6HR NEB 06/09/24 18:00 06/16/24 06:40 100 MG Amlodipine Besylate 10 mg DAILY PO 06/10/24 10:00 06/15/24 09:21 10 MG Enoxaparin Sodium 40 mg DAILY SC 06/10/24 10:00 UNV Levetiracetam 100 ml @ 400 mls/hr DAILY IV 06/12/24 10:00 06/15/24 09:21 400 MLS/HR Bumetanide 2 mg BIDD IV 06/14/24 13:15 06/16/24 06:55 2 MG Hydralazine HCl 20 mg Q2HPRN PRN IV 06/15/24 14:00 06/16/24 02:42 20 MG Fentanyl Citrate 250 ml @ 2.5 mls/hr Q24H IV 06/15/24 12:00 06/15/24 21:03 5 MLS/HR objective Critically ill-appearing elderly white male Intubated On sedation No pressors No JVD Regular rate and rhythm Abdomen nondistended non firm no guarding no fluid wave, colostomy has hard stool Suprapubic Rubio catheter Urine color is clear No pitting edema of the lower extremity Has upper extremity bilateral arm swelling laboratory and microbiology Laboratory Tests 06/16/24 03:00 Test 06/16/24 03:00 Range/Units Serum Glucose 71 L 74-106 mg/dL Assessment/Plan Acute kidney injury on chronic kidney disease stage 4 -> ATN Hemodynamically mediated Acute respiratory failure Anemia suspected due to low blood loss s/p PRBC Hypernatremia Hypokalemia Metabolic acidosis Chronic urinary retention sepsis due to bacteremia We will schedule hemodialysis treatment when access obtained not emergently needed at this time Continue diuretics IV ABX as per ICU with renal dosing Strict Is&Os Avoid contrast studies Critically ill Poor candidate for long-term dialysis currently on acute HD Critical care time spent 35 minutes Dietary Evaluation Review Comments: 1) If GI is assessible consider Jevity 1.2 @ 60 ml/hr x24 hrs goal rate as tolerated 2) If pt remains NPO >7 days consider TPN to meet at least 75% of estimated needs 3) Advance pt diet when medically feasible to a Cardiac/Renal Specific K2,2gmNA,low phos,60g Pro diet modified per FLIGHT INFORMATION EXPEDITER recommendations 4) Continue current plan of care Expected Outcomes/Goals: 1) Pt to receive adequate nutrition support 2) Pt diet to advance Plan discussed with: Other Critical Care Time(min): 35 CC Plasma Assessment Blood Product Administration S: [id number] ANNA ROMERO MD Jun 16, 2024 10:24
--- NOTE | 2024-06-16 21:40 | DVHPNRES ---
Progress Note Date Seen: Jun 16, 2024 Resident Creating Document: DYLAN GOMEZ RILEY Has the PT tested + for MRSA If YES, has PT been informed?: Yes Medical Necessity Reason Pt with a Central, PICC or Fol: Yes The following are medically ne: Central Line, Rubio Catheter Reason for rubio catheter: Strict I&O Subjective Review of Systems Patient seen and examined at the bedside. patient is sedated and on mechanical ventilation. ROS of system could not obtained. PEG was put yesterday ant tunneled catheter is planned for tommorow. social service manager has been consulted for the patient transfer to the LTAC. Patient reports: Feels worse Changes from previous H/P or p: Changes Objective vital signs Vital Sign Date Time Temp Pulse Resp B/P (MAP) Pulse Ox O2 Delivery O2 Flow Rate FiO2 06/16/24 20:48 167/74 06/16/24 20:05 100 18 97 30 06/16/24 18:00 Mechanical Ventilator+ 06/16/24 16:00 98.1 98.1 Total Intake and Output 06/15/24 06/15/24 06/16/24 15:00 23:00 07:00 Intake Total 696.0 ml 596.0 ml 440 ml Output Total 100 ml 200 ml 100 ml Balance 596.0 ml 396.0 ml 340 ml medications Current Medications Medications Dose Ordered Sig/[place] Route Start Time Stop Time Status Last Admin Dose Admin Midazolam HCl 50 ml @ 1 mls/hr Q24H IV 05/28/24 21:15 06/13/24 12:57 5 MLS/HR Albuterol 2.5 mg Q6HPRN PRN NEB 05/29/24 00:00 06/16/24 18:39 2.5 MG Pantoprazole Sodium 40 mg BID IV 05/29/24 22:00 06/16/24 10:15 40 MG Enteral Nutritional Formula 1,000 ml 30ML/HR GT 05/30/24 11:00 06/16/24 14:52 1,000 ML Diagnostic Test (Pha) 1 strip Q6HR 06/02/24 12:00 06/16/24 17:50 1 STRIP Insulin Human Regular Q6HR SC 06/02/24 12:00 Dextrose 50 ml UD PRN IV 06/02/24 10:45 06/15/24 08:57 50 ML Heparin Sodium (Porcine) 4,000 units PRN PRN IV 06/07/24 09:00 Hydralazine HCl 100 mg Q8HR PO 06/07/24 14:00 06/16/24 14:52 100 MG Meropenem 50 ml @ 17 mls/hr Q12H IV 06/08/24 19:00 06/16/24 18:59 17 MLS/HR Acetylcysteine 100 mg Q6HR NEB 06/09/24 18:00 06/16/24 18:52 100 MG Amlodipine Besylate 10 mg DAILY PO 06/10/24 10:00 06/16/24 10:59 10 MG Enoxaparin Sodium 40 mg DAILY SC 06/10/24 10:00 UNV Levetiracetam 100 ml @ 400 mls/hr DAILY IV 06/12/24 10:00 06/16/24 10:15 400 MLS/HR Bumetanide 2 mg BIDD IV 06/14/24 13:15 06/16/24 18:56 2 MG Hydralazine HCl 20 mg Q2HPRN PRN IV 06/15/24 14:00 06/16/24 02:42 20 MG Fentanyl Citrate 250 ml @ 2.5 mls/hr Q24H IV 06/15/24 12:00 06/15/24 21:03 5 MLS/HR Examination General: RASS -3, afebrile, mucosae are moist Cardiovascular: Normal S1 and S2. No murmurs, gallops or rubs Respiratory: Bilateral crackles Abdomen: Soft, nontender, no organomegaly, normal bowel sounds MSK/skin: Right lower limb at the level of knees amputated, left lower limb 2+ pedal edema Neurological: Orientation cannot be assessed. Pupils are isocoric and reactive laboratory and microbiology Laboratory Tests 06/16/24 03:00 Test 06/16/24 03:00 Range/Units Serum Glucose 71 L 74-106 mg/dL Microbiology Date/Time Source Procedure Growth Status 06/11/24 16:06 Bronchial Washings Gram Stain - Final Resulted 06/11/24 16:06 Respiratory Culture - Preliminary Acinetobacter baumannii Pseudomonas aeruginosa Resulted 06/10/24 04:52 Trachea Gram Stain - Final Resulted 06/10/24 04:52 Respiratory Culture - Preliminary Pseudomonas aeruginosa Acinetobacter baumannii MDRO Acinetobacter baumannii Resulted 06/09/24 18:54 Blood Blood Culture - Final NO GROWTH AFTER 5 DAYS OF INCUBATION. Complete 05/30/24 11:45 Pleural Fluid Gram Stain - Final Complete 05/30/24 11:45 Pleural Fluid Body Fluid Culture - Final Complete 05/28/24 22:36 Urine - Catheterized Urine Culture - Final Enterobacter cloacae Escherichia coli Enterococcus faecalis - VRE Complete Labs and/or images reviewed: Labs reviewed by me, Image(s) reviewed by me Problem List/Assessment/Plan Problem List/Assessment/Plan 68-year-old male presents with past medical history of Chronic kidney disease, CHF, COPD, dyslipidemia, hypertension, CVA, liver disease broght to the Hospital with ALOC and SOB. Admitted and intubated on 05/28/2024 and underwent tracheostomy on 06/13. NEURO: Acute metabolic encephalopathy likely due to sepsis Patient is sedated and on mechanical ventilation, RASS scores -5 History of seizure during last admission(1 month back) used Keppra for 1 week Consulted neurology, recommended Keppra EEG shows abnormal EEG recording consistent with the presence of a diffuse nonspecific encephalopathic state CARDIOVASCULAR: Hypertension Continue home medication, injection hydralazine 10 mg q.6 hours as needed PULMONARY: Acute Hypoxic Respiratory Failure likely due to pneumonia Septic shock likely due to pneumonia, improved Pneumonia likely due to Gram-positive Gram-negative Patient is sedated and on the mechanical ventilation with a setting of (VT 500, RR 18, peep 5, FiO2 30%) ABGs shows respiratory acidosis with metabolic compensation Sputum culture from bronchoalveolar lavage from 05/24/24 shows MRSA, Enterobacter cloacae Blood culture from the 06/02/24 shows Staphylococcus epidermidis , Staph hominis Repeat culture from 06/09/2024 shows no growth Stopped in linezolid, as given for 11 days MRSA nares screening negative Continue N-acetylcysteine Breathing treatment q.[address] scan shows [id number] left pleural effusion Chest ultrasound shows left side pleural effusion Bronchoscopy performed on 06/11, there was some thin mucus secretion on bilateral side, bronchial lavage of right lower lobe and left lower lobe was performed, and the culture results shows Pseudomonas aeruginosa and Enterobacter baumanni, MDR; ID has been consulted Continue meropenem GI GI ppx: Protonix b.i.d. Hepatitis-C virus antibody positive Repeat stool occult blood test is negative CT abdominopelvic without contrast shows no evidence of intra-abdominal hemorrhage Tracheostomy is performed on 06/13 PEG tube is placed on 06/15 : FROYLAN on CKD grade 4 Nephrology on the board, recommended Bumix 2mg BID currently dialysis dependent, last session performed on 06/13, next session is planned after putting tunneled catheter IR consulted, planned for the tunneled catheter Placement for tomorrow UTI, urinalysis shows UTI picture Urine culture from 05/28/2024 shows Enterobacter, E coli, Enterococcus faecalis Continue meropenem Status post limb amputation, right lower limb, above the knee likely due to PAD Decubitus ulcer There are multiple grade 3-4 sacral ulcers position changing every 2 hours and dressing HEME Severe anemia, transfused 3 pack of red blood cells current HB is 8.5 ID: Sputum culture from bronchoalveolar lavage from 05/24/24 shows MRSA, Enterobacter cloacae Blood culture from the 06/02/24 shows Staphylococcus epidermidis , Staph hominis Repeat culture from 06/09/2024 shows no growth culture results from BAL from 06/11 shows Pseudomonas aeruginosa and Enterobacter baumanni, MDR; ID has been consulted continue meropenem SKIN Possible keloid There is a growth on the left shoulder, per son, lesion has been present for several years Follow up on outpatient basis Metabolic: Hypernatremia, improved Hypokalemia, improved Hyperkalemia, improved LINES/DRAINS/ACCESS: ETT, intubated on 05/28/2024 and tracheostomy performed on 06/11 IV access Hemodialysis catheter on left internal jugular vein, placed on 06/01/2024 planned to be replaced with tunneled catheter on tomorrow Right internal jugular vein placed on 05/29, consulted PICC line placement, and will remove IJ CVC after PICC line placement. Suprapubic catheter, changed on 06/02/2020 Dripps: Fentanyl 50 No pressor DIET: Nepro 30 mL/hour DVT prophylaxis SCDs Disposition: social service manager consulted for transfer to the LTAC CODE STATUS: Full code Patient's status discussed with patient's son on telephone. Critical time spent more than 87 minutes, including patient care, chart review and updating the family, excluding any procedures. Case discussed with Dr. Isabel Plan discussed with: Patient, Other (son and RN) My Orders My Orders Orders - DYLAN GOMEZ Procedure Category Date Status Time * Infectious [place]- CONS 06/16/24 Transmitted [place] 16:30 Complete Blood Count LAB 06/17/24 Verified 04:00 Comprehensive LAB 06/17/24 Verified Metabolic Panel 04:00 Chest Xray 1 View XY 06/17/24 Logged 04:00 Abg W/ Co-Ox RT 06/17/24 Logged 04:00 D/C Tlc SUZAN 06/16/24 In Process 17:55 Dietary Evaluation Review Comments: 1) If GI is assessible consider Jevity 1.2 @ 60 ml/hr x24 hrs goal rate as tolerated 2) If pt remains NPO >7 days consider TPN to meet at least 75% of estimated needs 3) Advance pt diet when medically feasible to a Cardiac/Renal Specific K2,2gmNA,low phos,60g Pro diet modified per [employer] recommendations 4) Continue current plan of care Expected Outcomes/Goals: 1) Pt to receive adequate nutrition support 2) Pt diet to advance CC Plasma Assessment Blood Product Administration S: [id number] Date of Service: Jun 16, 2024 Billing Provider: HOLGER ISABEL MD Common Visit Codes: 98709-EIIFISPP CARE 30-74 MIN, 42195-OAXPCPGY CARE-EACH +30MIN DYLAN GOMEZ RESDIENT Jun 16, 2024 21:40 HOLGER ISABEL MD Jun 17, 2024 15:05
--- NOTE | 2024-06-16 22:51 | DVHPN2 ---
Progress Note - Dictate Date Seen: Jun 16, 2024 Has the PT tested + for MRSA If YES, has PT been informed?: Yes Medical Necessity Reason Pt with a Central, PICC or Fol: Yes The following are medically ne: Central Line, Rubio Catheter Reason for rubio catheter: Strict I&O Subjective No acute events vital signs Vital Sign Date Time Temp Pulse Resp B/P (MAP) Pulse Ox O2 Delivery O2 Flow Rate FiO2 06/16/24 21:58 96 18 166/67 (100) 96 30 06/16/24 18:00 Mechanical Ventilator+ 06/16/24 16:00 98.1 98.1 Total Intake and Output 06/15/24 06/15/24 06/16/24 15:00 23:00 07:00 Intake Total 696.0 ml 596.0 ml 440 ml Output Total 100 ml 200 ml 100 ml Balance 596.0 ml 396.0 ml 340 ml medications Current Medications Medications Dose Ordered Sig/[place] Route Start Time Stop Time Status Last Admin Dose Admin Midazolam HCl 50 ml @ 1 mls/hr Q24H IV 05/28/24 21:15 06/13/24 12:57 5 MLS/HR Albuterol 2.5 mg Q6HPRN PRN NEB 05/29/24 00:00 06/16/24 18:39 2.5 MG Pantoprazole Sodium 40 mg BID IV 05/29/24 22:00 06/16/24 21:52 40 MG Enteral Nutritional Formula 1,000 ml 30ML/HR GT 05/30/24 11:00 06/16/24 14:52 1,000 ML Diagnostic Test (Pha) 1 strip Q6HR 06/02/24 12:00 06/16/24 17:50 1 STRIP Insulin Human Regular Q6HR SC 06/02/24 12:00 Dextrose 50 ml UD PRN IV 06/02/24 10:45 06/15/24 08:57 50 ML Heparin Sodium (Porcine) 4,000 units PRN PRN IV 06/07/24 09:00 Hydralazine HCl 100 mg Q8HR PO 06/07/24 14:00 06/16/24 21:53 100 MG Meropenem 50 ml @ 17 mls/hr Q12H IV 06/08/24 19:00 06/16/24 18:59 17 MLS/HR Acetylcysteine 100 mg Q6HR NEB 06/09/24 18:00 06/16/24 18:52 100 MG Amlodipine Besylate 10 mg DAILY PO 06/10/24 10:00 06/16/24 10:59 10 MG Enoxaparin Sodium 40 mg DAILY SC 06/10/24 10:00 UNV Levetiracetam 100 ml @ 400 mls/hr DAILY IV 06/12/24 10:00 06/16/24 10:15 400 MLS/HR Bumetanide 2 mg BIDD IV 06/14/24 13:15 06/16/24 18:56 2 MG Hydralazine HCl 20 mg Q2HPRN PRN IV 06/15/24 14:00 06/16/24 02:42 20 MG Fentanyl Citrate 250 ml @ 2.5 mls/hr Q24H IV 06/15/24 12:00 06/15/24 21:03 5 MLS/HR objective GE: remains altered CVS: S1S2+ Lungs: clear #Abdomen: soft, nondistended, BS+. PEG tube in place, stoma site clean and dry. Colostomy bag in place. laboratory and microbiology Laboratory Tests 06/16/24 03:00 Test 06/16/24 03:00 Range/Units Serum Glucose 71 L 74-106 mg/dL Assessment/Plan #Dysphagia, s/p PEG tube placement #Acute resp failure #Acute encephalopathy #Colostomy status -PEG site examined, no bleeding or discharge -TF as tolerated -Keep the stoma site dry and clean Thank you for allowing me to participate in the care of this pt. Dietary Evaluation Review Comments: 1) If GI is assessible consider Jevity 1.2 @ 60 ml/hr x24 hrs goal rate as tolerated 2) If pt remains NPO >7 days consider TPN to meet at least 75% of estimated needs 3) Advance pt diet when medically feasible to a Cardiac/Renal Specific K2,2gmNA,low phos,60g Pro diet modified per [employer] recommendations 4) Continue current plan of care Expected Outcomes/Goals: 1) Pt to receive adequate nutrition support 2) Pt diet to advance Plan discussed with: Other CC Plasma Assessment Blood Product Administration S: [id number] NGOC GOMEZ MD Jun 16, 2024 22:51
[2024-06-17] VITALS (98 sets, daily range): BP systolic 101–186; BP diastolic 52–103; PULSE 89–149; RESP 10–22; TEMP 98.7–100.1; O2SAT 87–100
--- NOTE | 2024-06-17 04:57 | DVH ---
CHEST RADIOGRAPH Indication: Pneumonia Technique: Single frontal view of the chest was obtained COMPARISON: XY CHEST PORTABLE on DOS: 06/16/24, XY CHEST PORTABLE on DOS: 06/15/24, XY CHEST XRAY 1 VIE W on DOS: 06/14/24, XY CHEST PORTABLE on DOS: 06/16/24 FINDINGS: Lines and Tubes: Tracheostomy, right central venous catheter and left central venous catheter in sati sfactory position. Lungs: Multifocal airspace disease. Pleura: No effusion. No pneumothorax. Cardiomediastinal contours: Unremarkable Bones: Unremarkable IMPRESSION: Lines and tubes in satisfactory position. No significant interval change.
[2024-06-17 06:42] LABS: INR 1.21 (0.9-1.15); Partial Thromboplastin Time 40.6 SEC (24.5-34.5); Prothrombin Time 12.6 sec (9.3-11.8)
[2024-06-17 06:43] LABS: Basophils # (auto) 0.1 10 ^3/uL (0-0.2); Eosinophils # (auto) 0.4 10 ^3/uL (0-0.8); Lymphocytes # (auto) 1.1 10 ^3/uL (0.4-5.4); Mean Corpuscular Hemoglobin 31.6 pg (28.0-32.0); Monocytes # (auto) 0.8 10 ^3/uL (0-1.3); Nucleated Red Blood Cells % 0.1 %; Platelet Count (auto) 163 10^3/uL (140-450); White Blood Cell 5.3 10^3/uL (4.4-10.8)
[2024-06-17 06:45] LABS: Eosinophils % (auto) 7.1 % (0.0-7.0); Hematocrit 24.9 % (41.0-53.0); Hemoglobin 8.3 g/dL (13.5-17.5); Lymphocytes % (auto) 21.2 % (10.0-50.0); Mean Corpuscular Hgb Conc. 33.3 g/dL (32.0-36.0); Mean Corpuscular Volume 94.8 fL (80.0-100.0); Monocytes % (auto) 14.5 % (0.0-12.0); Neutrophils % (auto) 56.2 % (37.0-80.0); Red Blood Cells 2.62 10^6/uL (4.5-5.90); Red Cell Distribution Width 16.5 % (11.8-14.3)
[2024-06-17 06:51] LABS: Albumin 2.5 g/dL (3.2-4.8); Alkaline Phosphatase 88 U/L (46-116); Anion Gap 12 (5-15); Aspartate Aminotransferase 18 U/L (13-40); BUN/Creatinine Ratio 6.7 (10.0-20.0); Bilirubin, Total < 0.2 mg/dL (0.2-1.0); Blood Urea Nitrogen 29 mg/dL (9-23); Calcium 9.1 mg/dL (8.7-10.4); Carbon Dioxide 22 mmol/L (20-31); Chloride 103 mmol/L (98-107); Glucose 60 mg/dL (74-106); Sodium 137 mmol/L (136-145)
[2024-06-17 06:52] LABS: Total Protein 5.8 g/dL (5.7-8.2)
[2024-06-17 06:53] LABS: Alanine Aminotransferase < 9 U/L (7-40)
[2024-06-17 07:35] LABS: Base Excess 0.2 mmol/L (-2.0-3.0)
[2024-06-17] MEDS ORDERED: ENOXAPARIN SOD 40 MG/0.4 ML SYRINGE SC SCH (10:00)
[2024-06-17] MEDS: ENOXAPARIN SOD 30 MG/0.3 ML SYRINGE SC SCH (10:00)
--- NOTE | 2024-06-17 10:31 | DVHINCON2 ---
Date of service: Jun 17, [address] Johnson, resident Reason for Consultation Antibiotics recommendation History of Present Illness Patient is a 68-year-old male presents to the hospital for evaluation of altered mental status. Patient was noted by family members becoming progressively more altered over the past three days. He had shown a gradual decline in his mental status leading to a progressive confusion and eventually unresponsiveness. On arrival patient was unresponsive and had to be emergently intubated for airway protection. No further history was available from the patient due to the altered mental state. Patient has been in the ICU for prolonged period of time and now he has undergone tracheostomy on 06/13 and PEG tube placement Review of his culture Sputum culture 05/28 grew MRSA 05/30 pleural fluid no growth 05/30 bronchial washing MRSA 06/10 trachea/bronchial washing resulted in Acinetobacter baumannii and Pseudomonas MDRo Blood cultures 05/28: Staphylococcus capitis and Staphylococcus auricularis 06/02 Staphylococcus epidermidis and hominis 06/09 no growth Antibiotics history Vancomycin 05/28 to Zosyn 05/28 to 05/29 Ampicillin : 05/29-05/31 Ceftriaxone 05/29 to 05/31 Linezolid 05/31 to 06/11 Meropenem 05/31 to 06/08 Imaging 06/13, Chest US: Left > right pleural effusion. 06/12, Abdomen/Pelvis CT: Small volume of ascites, [id number] left pleural effusion, and mild generalized anasarca. Cholelithiasis. Right renal atrophy. Left renal cysts. Left lower lobe atelectasis. Right lower lobe patchy consolidation/atelectasis. Chronic wounds overlying the ischial tuberosities. Associated chronic skin thickening extending in the perineal region. Chronic osteitis at the ischial tuberosities. Extensive atherosclerosis. Past Medical History Patient's past Medical History is significant for Chronic kidney disease, CHF, COPD, dyslipidemia, hypertension, CVA, liver disease and AK. Past Surgical History Right AKA, partial left foot amputation. Family History: Cerebrovascular accident (CVA) G8 FATHER Social History Smoke: No ALCOHOL: Occasional Drugs: None Allergies: Coded Allergies: Meperidine (Verified Allergy, Unknown, 04/18/23) Home Meds Active Scripts Sevelamer Hydrochloride (Renagel) 800 Mg Tab, 800 MG PO TIDWM for 30 Days, #90 TAB Prov:DORA DELGADILLO MD 04/03/24 Sodium Bicarbonate (Sodium Bicarbonate) 650 Mg Tab, 650 MG PO QID for 14 Days, #56 TAB Prov:DORA DELGADILLO MD 04/03/24 Levetiracetam (KEPPRA TABLET) 500 Mg Tb, 750 MG PO BID for 30 Days, #90 TAB Prov:DORA DELGADILLO MD 04/03/24 Carvedilol (COREG) 3.125 Mg Tab, 6.25 MG PO Q12HR, #60 TAB Prov:MALCOLM WILLOUGHBY MD 08/21/18 Atorvastatin Calcium (ATORVASTATIN CALCIUM) 20 Mg Tab, 40 MG PO DAILY, #30 TAB Prov:MALCOLM WILLOUGHBY MD 08/21/18 Reported Medications Bumetanide (Bumetanide) 1 Mg Tab, 1 TAB PO DAILY for 30 Days, #30 03/24/24 Metolazone (Metolazone) 10 Mg Tab, 1 TAB PO DAILY for 30 Days, #30 03/24/24 Gabapentin (Gabapentin) 100 Mg Cap, 800 MG PO Q8HR PRN for 30 Days, #90 03/24/24 Hydralazine Hcl (Hydralazine Hcl) 100 Mg Tab, 1 TAB PO Q12HR for 15 Days, #30 03/24/24 Clonidine Hydrochloride (Clonidine Hydrocloride) 0.1 Mg Tab, 0.2 MG PO Q8HR PRN for 30 Days, #90 03/24/24 Lorazepam (Lorazepam) 0.5 Mg Tab, 0.25 MG PO DAILYPRN PRN for ANXIETY, TAB 12/30/23 Ped Multivitamins W/Fl & Iron (Multi-Vit/Iron/Fluoride) /Fl 0.25 August, 1 ML PO DAILY, #100 ML 3 Refills 12/30/23 Sertraline Hcl (Zoloft) 25 Mg Tab, 1 TAB PO DAILY for 30 Days 12/30/23 Hydrocodone-Acetaminophen (Hydrocodone Bitartrate/AC 5-325 mg) 1 Tab Tab, 1 TAB PO QIDPRN PRN for PAIN SCALE 1 THRU 6, TAB 12/30/23 Famotidine (Famotidine) 20 Mg Tab, 1 TAB PO DAILY for 30 Days, #30 12/30/23 Bisacodyl (Dulcolax) 10 Mg Sup, 100 MG PO DAILY, SUPP 12/30/23 Fluticasone Propionate (Nasal) (Fluticasone Propionate Na) 50 Mcg/Act Spr, 1 SPRAY PARKER BID 11/06/23 Memantine HCl (Memantine Hydrochloride) 5 Mg Tab, 1 TAB PO DAILY 11/06/23 Levothyroxine Sodium (Levothyroxine Sodium) 50 Mcg Tab, 1 TAB PO QAM for 30 Days, #30 05/29/23 Apixaban Base (ELIQUIS) 2.5 Mg Tab, 1 TAB PO BID for 30 Days, #60 11/27/22 Amlodipine Besylate (Amlodipine Besylate) 10 Mg Tab, 1 TAB PO DAILY 11/27/22 Current Medications Current Medications Medications (Trade) Dose Ordered Sig/[place] Route PRN Reason Start Time Stop Time Status Last Admin Enoxaparin Sodium (Lovenox) 40 mg DAILY SC 06/17/24 10:00 UNV Enoxaparin Sodium (Lovenox) 30 mg DAILY SC 06/17/24 10:00 Review of Systems Review of systems can not be completed, patient is sedated and intubated. Vital Signs Vital Signs Date Time Temp Pulse Resp B/P (MAP) Pulse Ox O2 Delivery O2 Flow Rate FiO2 06/17/24 09:58 100 18 153/66 (95) 95 30 06/17/24 08:00 Mechanical Ventilator+ 06/17/24 08:00 30 06/17/24 08:00 100.1 100.1 Physical Exam Gen:intubated and sedated Skin: Warm, dry, normal color and texture, no rash. HEENT: Normocephalic atraumatic, mucous membranes moist and pink. Neck: trach + Pulmonary: Clear to auscultation bilaterally. Cardiac: heart sound normal Abdomen: Soft, nontender, nondistended, bowel sounds present : PEG tube + Extremities: No cyanosis, clubbing, right AKA Neuro: Sedated Labs/Diagnostic Data Labs Test 06/17/24 07:19 06/17/24 06:14 06/17/24 04:36 06/16/24 01:00 Range/Units Blood Gas Specimen Type Arterial Blood Gas Sample Site Left radial Blood Gas Patient Temperature 37.0 Arterial Blood Date Drawn [id number] Arterial Blood pH 7.454 H 7.350-7.450 Arterial Blood Partial Pressure CO2 34.7 L 35.0-48.0 mmHg Arterial Blood Partial Pressure O2 65.9 L 83.0-108.0 mmHg Arterial Blood HCO3 23.8 21.0-28.0 mmol/L Arterial Blood Oxygen Saturation 92.5 L 94.0-98.0 % Arterial Blood Base Excess 0.2 -2.0-3.0 mmol/L Arterial Blood Oxyhemoglobin 91.2 L 94.0-98.0 % Arterial Blood Carboxyhemoglobin 1.0 0.5-1.5 % Arterial Blood Methemoglobin 0.4 0.0-1.5 % Bruno Test Modified Blood Gas Total Hemoglobin 10.90 L 13.5-17.5 g/dL Blood Gas Set Respiration Rate 18.0 Blood Gas Modality Vent - ac FiO2 % 30.0 Blood Gas Tidal Volume 500.0 Blood Gas PEEP or CPAP 5.0 POC Glucose 58 L 70-106 mg/dl White Blood Count 5.3 4.4-10.8 10^3/uL Red Blood Count 2.62 L 4.5-5.90 10^6/uL Hemoglobin 8.3 L 13.5-17.5 g/dL Hematocrit 24.9 L 41.0-53.0 % Mean Corpuscular Volume 94.8 # 80.0-100.0 fL Mean Corpuscular Hemoglobin 31.6 28.0-32.0 pg Mean Corpuscular Hemoglobin Concent 33.3 32.0-36.0 g/dL Red Cell Distribution Width 16.5 H 11.8-14.3 % Platelet Count 163 140-450 10^3/uL Mean Platelet Volume 7.2 6.9-10.8 fL Neutrophils (%) (Auto) 56.2 37.0-80.0 % Lymphocytes (%) (Auto) 21.2 10.0-50.0 % Monocytes (%) (Auto) 14.5 H 0.0-12.0 % Eosinophils (%) (Auto) 7.1 H 0.0-7.0 % Basophils (%) (Auto) 1.0 0.0-2.0 % Neutrophils # (Auto) 3.0 1.6-8.6 10 ^3/uL Lymphocytes # (Auto) 1.1 0.4-5.4 10 ^3/uL Monocytes # (Auto) 0.8 0-1.3 10 ^3/uL Eosinophils # (Auto) 0.4 0-0.8 10 ^3/uL Basophils # (Auto) 0.1 0-0.2 10 ^3/uL Nucleated Red Blood Cells 0.1 % Prothrombin Time 12.6 H 9.3-11.8 sec Prothrombin Time INR 1.21 H 0.9-1.15 Activated Partial Thromboplast Time 40.6 H 24.5-34.5 SEC Sodium Level 137 136-145 mmol/L Potassium Level 4.0 3.5-5.1 mmol/L Chloride Level 103 98-107 mmol/L Carbon Dioxide Level 22 20-31 mmol/L Anion Gap 12 5-15 Blood Urea Nitrogen 29 H 9-23 mg/dL Creatinine 4.33 H 0.700-1.30 mg/dL Glomerular Filtration Rate Calc 14 >90 mL/min BUN/Creatinine Ratio 6.7 L 10.0-20.0 Serum Glucose 60 L 74-106 mg/dL Calcium Level 9.1 8.7-10.4 mg/dL Total Bilirubin < 0.2 L 0.2-1.0 mg/dL Aspartate Amino Transferase (AST) 18 13-40 U/L Alanine Aminotransferase (ALT) < 9 7-40 U/L Alkaline Phosphatase 88 46-116 U/L Total Protein 5.8 5.7-8.2 g/dL Albumin 2.5 L 3.2-4.8 g/dL Influenza Type A Antigen Negative Negative Influenza Type B Antigen Negative Negative SARS-CoV-2 Antigen (Rapid) Negative NEGATIVE Test 06/13/24 03:20 06/12/24 14:26 06/12/24 07:55 06/10/24 01:12 Range/Units Magnesium Level 1.9 1.6-2.6 mg/dL Stool Occult Blood Negative Negative Stool Occult Blood Sample #3 Negative Blood Gas Spontaneous Rate 20 Blood Gas Inspiratory Pressure 18.0 Bl Gas Inspiratory/Expiratory Ratio 1:1.2 Specimen Drawn By clayton rt Blood Gas EPAP 5 Blood Gas IPAP 12 Test 06/09/24 20:40 06/09/24 12:57 06/05/24 03:09 06/02/24 03:17 Range/Units Blood Gas Liter Flow 15.00 Blood Gas Pressure Support 10 Differential Total Cells Counted 100.0 100 Neutrophils % (Manual) 71 37.0-80.0 Band Neutrophils % (Manual) 0 Lymphocytes % (Manual) 17 10.0-50.0 Monocytes % (Manual) 8 0-12 Eosinophils % (Manual) 4 0-7 Basophils % (Manual) 0 0.0-2.0 Metamyelocytes % (manual) 0 Myelocytes % (Manual) 0 Promyelocytes % (Manual) 0 Blast Cells % (Manual) 0 Reactive Lymphocytes 0 Platelet Estimate Decreased Large Platelets Few Iron Level 101 65-175 ug/dL Total Iron Binding Capacity 109 L 250-425 ug/dL Percent Iron Saturation 92.7 H 20-55 % Ferritin 1171.2 H 22-322 ng/mL Hepatitis A IgM Antibody Negative Hepatitis B Surface Antigen Negative Negative Hepatitis B Core IgM Antibody Negative Hepatitis C Antibody Reactive *A Negative Test 06/01/24 03:00 05/31/24 07:30 05/31/24 03:14 05/30/24 11:45 Range/Units Uric Acid 9.3 H 3.7-9.2 mg/dL Phosphorus Level 8.4 H 2.4-5.1 mg/dL Blood Gas Critical Value Read Back Yes Blood Gas Notified Whom Kana hedrick. Blood Gas Notified Time [id number] Blood Gas Notified By Nanda newman Random Vancomycin Level 20.1 H 5-10 ug/mL Body Fluid Source Pleural fluid Body Fluid pH 7.0 Body Fluid WBC (Manual) 479 H 0-200 CUMM Body Fluid RBC (Manual) 842 0-2000 CUMM Body Fluid Mononuclear Cells 86 % Body Fluid Polymorphonuclear Cells 14 0-25 % Body Fluid Glucose 68 . mg/dL Body Fluid Total Protein 2.4 . g/dL Body Fluid Lactate Dehydrogenase 101 . IU/L Test 05/30/24 04:30 05/30/24 03:06 05/29/24 08:30 05/29/24 00:21 Range/Units Urine Creatinine 33.57 30.0-125.0 mg/dL Urine Sodium 85 40-220 mmol/L Urine Opiates Screen Neg NEGATIVE Urine Fentanyl Screen Pos NEGATIVE Urine Barbiturates Screen Neg NEGATIVE Urine Phencyclidine Screen Neg NEGATIVE Urine Amphetamines Screen Neg NEGATIVE Urine Benzodiazepines Screen Pos NEGATIVE Urine Cocaine Screen Neg NEGATIVE Urine Cannabinoids Screen Neg NEGATIVE Lactate Dehydrogenase 149 120-246 U/L Lactic Acid Level 0.5 0.4-2.0 mmol/L Thyroid Stimulating Hormone (TSH) 2.47 0.55-4.78 uIU/mL Troponin I High Sensitivity 118 *H </=54 ng/L Test 05/28/24 22:36 05/28/24 21:43 Range/Units Urine Color Dark-brown Yellow Urine Clarity Ex.turbid Clear Urine pH 6.0 5.0-9.0 Urine Specific [place] 1.017 1.001-1.035 Urine Protein 2+ H Negative Urine Ketones Trace Negative Urine Blood 1+ H Negative /uL Urine Nitrite Negative Negative Urine Bilirubin Negative Negative Urine Urobilinogen Normal Negative mg/dL Urine Leukocyte Esterase 3+ Negative /uL Urine RBC 56 0 - 3 /hpf Urine WBC 3664 0 - 3 /hpf Urine WBC Clumps Present None Seen /hpf Urine Squamous Epithelial Cells Many <5 /hpf Urine Bacteria Mod H None Seen /hpf Urine Glucose Normal Normal mg/dL Anisocytosis (manual) Slight Macrocytosis Slight B-Type Natriuretic Peptide 1188.79 0-100 pg/mL Microbiology Date/Time Source Procedure Growth Status 06/11/24 16:06 Bronchial Washings Gram Stain - Final Resulted 06/11/24 16:06 Respiratory Culture - Preliminary Acinetobacter baumannii Pseudomonas aeruginosa Resulted 06/10/24 04:52 Trachea Gram Stain - Final Resulted 06/10/24 04:52 Respiratory Culture - Preliminary Pseudomonas aeruginosa Acinetobacter baumannii MDRO Acinetobacter baumannii Resulted 06/09/24 18:54 Blood Blood Culture - Final NO GROWTH AFTER 5 DAYS OF INCUBATION. Complete 05/30/24 11:45 Pleural Fluid Gram Stain - Final Complete 05/30/24 11:45 Pleural Fluid Body Fluid Culture - Final Complete 05/28/24 22:36 Urine - Catheterized Urine Culture - Final Enterobacter cloacae Escherichia coli Enterococcus faecalis - VRE Complete Assessment Patient is a 69-year-old male presents to the clinic with: MDRO Pseudomonas in sputum MDRO Acinetobacter baumannii in sputum MRSA Pneumonia Acute respiratory failure, s/p trach on MV Acute on chronic renal failure Coagulase-negative Staph bacteremia Acute metabolic encephalopathy Decubitus ulcer Elevated troponin Anemia Recommendations: Overall, patient is on minimal vent setting, is on trach He has received more than adequate course of antibiotics for MRSA pneumonia, the chest x-ray finding could be secondary to MRSA pneumonia versus fluid His most recent bronchial cultures is growing Pseudomonas and Acinetobacter baumannii which are both MDRO and waiting for confirmation from [facility] lab Overall, he seems clinically stable from respiratory standpoint with minimal vent setting, mostly afebrile and has normal WBC count and minimal ET tube secretions Patient is currently on meropenem however this does not cover both of these MDR does Patient is planned for tunneled cath placement tomorrow, Reviewed all the cultures and the blood culture seems to be a contamination however he has also received course of vancomycin followed by linezolid Patient has history of recurrent hospital admissions with progressive decline in physical condition Critical time 45 minutes spent during the encounter Thank you for consult and for giving an opportunity to take care of this patient. Plan discussed with: Other TAPAN ORANTES MD Jun 17, 2024 10:31
--- NOTE | 2024-06-17 11:58 | DVHPN2 ---
Progress Note - Dictate Date Seen: Jun 17, 2024 Has the PT tested + for MRSA If YES, has PT been informed?: Yes Medical Necessity Reason Pt with a Central, PICC or Fol: Yes The following are medically ne: Central Line, Rubio Catheter Reason for rubio catheter: Strict I&O Subjective remain intubated in ICU vital signs Vital Sign Date Time Temp Pulse Resp B/P (MAP) Pulse Ox O2 Delivery O2 Flow Rate FiO2 06/17/24 11:13 100 18 121/74 (90) 97 30 06/17/24 10:00 Mechanical Ventilator+ 06/17/24 08:00 30 06/17/24 08:00 100.1 100.1 Total Intake and Output 06/16/24 06/16/24 06/17/24 15:00 23:00 07:00 Intake Total 157.5 ml 195.0 ml 384.5 ml Output Total 165 ml 100 ml Balance 157.5 ml 30.0 ml 284.5 ml medications Current Medications Medications Dose Ordered Sig/[place] Route Start Time Stop Time Status Last Admin Dose Admin Midazolam HCl 50 ml @ 1 mls/hr Q24H IV 05/28/24 21:15 06/13/24 12:57 5 MLS/HR Albuterol 2.5 mg Q6HPRN PRN NEB 05/29/24 00:00 06/17/24 11:12 2.5 MG Pantoprazole Sodium 40 mg BID IV 05/29/24 22:00 06/17/24 09:35 40 MG Enteral Nutritional Formula 1,000 ml 30ML/HR GT 05/30/24 11:00 06/16/24 14:52 1,000 ML Diagnostic Test (Pha) 1 strip Q6HR 06/02/24 12:00 06/17/24 11:45 1 STRIP Dextrose 50 ml UD PRN IV 06/02/24 10:45 06/17/24 11:25 50 ML Heparin Sodium (Porcine) 4,000 units PRN PRN IV 06/07/24 09:00 Hydralazine HCl 100 mg Q8HR PO 06/07/24 14:00 06/16/24 21:53 100 MG Meropenem 50 ml @ 17 mls/hr Q12H IV 06/08/24 19:00 06/17/24 06:06 17 MLS/HR Acetylcysteine 100 mg Q6HR NEB 06/09/24 18:00 06/17/24 11:12 100 MG Amlodipine Besylate 10 mg DAILY PO 06/10/24 10:00 06/17/24 09:35 10 MG Enoxaparin Sodium 40 mg DAILY SC 06/10/24 10:00 UNV Levetiracetam 100 ml @ 400 mls/hr DAILY IV 06/12/24 10:00 06/17/24 09:35 400 MLS/HR Bumetanide 2 mg BIDD IV 06/14/24 13:15 06/17/24 06:05 2 MG Hydralazine HCl 20 mg Q2HPRN PRN IV 06/15/24 14:00 06/17/24 03:36 20 MG Fentanyl Citrate 250 ml @ 2.5 mls/hr Q24H IV 06/15/24 12:00 06/17/24 05:10 17.5 MLS/HR Enoxaparin Sodium 40 mg DAILY SC 06/17/24 10:00 UNV Enoxaparin Sodium 30 mg DAILY SC 06/17/24 10:00 objective Critically ill-appearing elderly white male Intubated On sedation No pressors No JVD Regular rate and rhythm Abdomen nondistended non firm no guarding no fluid wave, colostomy has hard stool Suprapubic Rubio catheter Urine color is clear No pitting edema of the lower extremity Has upper extremity bilateral arm swelling laboratory and microbiology Laboratory Tests 06/17/24 04:36 Test 06/17/24 04:36 Range/Units Serum Glucose 60 L 74-106 mg/dL Assessment/Plan Acute kidney injury on chronic kidney disease stage 4 -> ATN Hemodynamically mediated Acute respiratory failure Anemia suspected due to low blood loss s/p PRBC Hypernatremia Hypokalemia Metabolic acidosis Chronic urinary retention sepsis due to bacteremia planned for HD after catheter placement IV ABX as per ICU with renal dosing Strict Is&Os Avoid contrast studies Critically ill Poor candidate for long-term dialysis currently on acute HD Critical care time spent 35 minutes Dietary Evaluation Review Comments: 1) If GI is assessible consider Jevity 1.2 @ 60 ml/hr x24 hrs goal rate as tolerated 2) If pt remains NPO >7 days consider TPN to meet at least 75% of estimated needs 3) Advance pt diet when medically feasible to a Cardiac/Renal Specific K2,2gmNA,low phos,60g Pro diet modified per [employer] recommendations 4) Continue current plan of care Expected Outcomes/Goals: 1) Pt to receive adequate nutrition support 2) Pt diet to advance Plan discussed with: Other CC Plasma Assessment Blood Product Administration S: [id number] ANNA ROMERO MD Jun 17, 2024 11:58
[2024-06-17] MEDS: EPOETIN ALFA-EPBX 10,000 UNIT/1ML VIAL SC SCH (12:00)
--- NOTE | 2024-06-17 16:44 | DVHPN2 ---
Progress Note - Dictate Date Seen: Jun 17, 2024 Has the PT tested + for MRSA If YES, has PT been informed?: Yes Medical Necessity Reason Pt with a Central, PICC or Fol: Yes The following are medically ne: Central Line, Rubio Catheter Reason for rubio catheter: Strict I&O Subjective Tolerating TF vital signs Vital Sign Date Time Temp Pulse Resp B/P (MAP) Pulse Ox O2 Delivery O2 Flow Rate FiO2 06/17/24 16:00 97 18 131/62 (85) 95 30 06/17/24 14:00 Mechanical Ventilator+ 06/17/24 12:00 99.3 99.3 06/17/24 08:00 30 Total Intake and Output 06/16/24 06/16/24 06/17/24 15:00 23:00 07:00 Intake Total 157.5 ml 195.0 ml 384.5 ml Output Total 165 ml 100 ml Balance 157.5 ml 30.0 ml 284.5 ml medications Current Medications Medications Dose Ordered Sig/[place] Route Start Time Stop Time Status Last Admin Dose Admin Midazolam HCl 50 ml @ 1 mls/hr Q24H IV 05/28/24 21:15 06/13/24 12:57 5 MLS/HR Albuterol 2.5 mg Q6HPRN PRN NEB 05/29/24 00:00 06/17/24 11:12 2.5 MG Pantoprazole Sodium 40 mg BID IV 05/29/24 22:00 06/17/24 09:35 40 MG Enteral Nutritional Formula 1,000 ml 30ML/HR GT 05/30/24 11:00 06/16/24 14:52 1,000 ML Diagnostic Test (Pha) 1 strip Q6HR 06/02/24 12:00 06/17/24 11:45 1 STRIP Dextrose 50 ml UD PRN IV 06/02/24 10:45 06/17/24 11:25 50 ML Heparin Sodium (Porcine) 4,000 units PRN PRN IV 06/07/24 09:00 Hydralazine HCl 100 mg Q8HR PO 06/07/24 14:00 06/17/24 15:15 100 MG Meropenem 50 ml @ 17 mls/hr Q12H IV 06/08/24 19:00 06/17/24 06:06 17 MLS/HR Acetylcysteine 100 mg Q6HR NEB 06/09/24 18:00 06/17/24 11:12 100 MG Amlodipine Besylate 10 mg DAILY PO 06/10/24 10:00 06/17/24 09:35 10 MG Enoxaparin Sodium 40 mg DAILY SC 06/10/24 10:00 UNV Levetiracetam 100 ml @ 400 mls/hr DAILY IV 06/12/24 10:00 06/17/24 09:35 400 MLS/HR Bumetanide 2 mg BIDD IV 06/14/24 13:15 06/17/24 06:05 2 MG Hydralazine HCl 20 mg Q2HPRN PRN IV 06/15/24 14:00 06/17/24 03:36 20 MG Fentanyl Citrate 250 ml @ 2.5 mls/hr Q24H IV 06/15/24 12:00 06/17/24 15:12 12.5 MLS/HR Enoxaparin Sodium 40 mg DAILY SC 06/17/24 10:00 UNV Enoxaparin Sodium 30 mg DAILY SC 06/17/24 10:00 Epoetin Calin-epbx 10,000 unit TUTHSA SC 06/17/24 12:00 objective GE: altered CVS: S1S2+ Lungs: clear Abdomen: soft, nondistended, BS+, PEG tube and colostomy bag in place laboratory and microbiology Laboratory Tests 06/17/24 04:36 Test 06/17/24 04:36 Range/Units Serum Glucose 60 L 74-106 mg/dL Assessment/Plan #Dysphagia, s/p PEG tube placement #Acute resp failure #Acute encephalopathy #Colostomy status -PEG site examined, no bleeding or discharge -TF as tolerated -Keep the stoma site dry and clean -Discussed with RN bedside Thank you for allowing me to participate in the care of this pt. Dietary Evaluation Review Comments: 1) If GI is assessible consider Jevity 1.2 @ 60 ml/hr x24 hrs goal rate as tolerated 2) If pt remains NPO >7 days consider TPN to meet at least 75% of estimated needs 3) Advance pt diet when medically feasible to a Cardiac/Renal Specific K2,2gmNA,low phos,60g Pro diet modified per [employer] recommendations 4) Continue current plan of care Expected Outcomes/Goals: 1) Pt to receive adequate nutrition support 2) Pt diet to advance Plan discussed with: Other CC Plasma Assessment Blood Product Administration S: [id number] NGOC GOMEZ MD Jun 17, 2024 16:44
--- NOTE | 2024-06-17 18:37 | DVHPNRES ---
Progress Note Date Seen: Jun 17, 2024 Resident Creating Document: DYLAN GOMEZ RESDIENT Has the PT tested + for MRSA If YES, has PT been informed?: Yes Medical Necessity Reason Pt with a Central, PICC or Fol: Yes The following are medically ne: Central Line, Rubio Catheter Reason for rubio catheter: Strict I&O Subjective Review of Systems This is a 65-year-old male with past medical history of CHF, CKD, COPD, dyslipidemia, hypertension, CVA brought to the hospital with shortness of breaths and at the level of consciousness. Admitted and intubated on 05/28, extubated on 06/09 but reintubated on 06/10. Epigastric performed on 06/13, PEG tube placed on 06/15. Today, patient seen and examined at the bedside. Patient is sedated and on on mechanical ventilation. Review of systems could not obtain. Chest x-ray shows bilateral infiltration, worsening in compared to yesterday's x-ray. Patient reports: No new complaints Objective vital signs Vital Sign Date Time Temp Pulse Resp B/P (MAP) Pulse Ox O2 Delivery O2 Flow Rate FiO2 06/17/24 18:05 111 18 185/77 (113) 94 30 06/17/24 18:00 Mechanical Ventilator+ 06/17/24 16:00 98.7 98.7 06/17/24 08:00 30 Total Intake and Output 06/16/24 06/16/24 06/17/24 15:00 23:00 07:00 Intake Total 157.5 ml 195.0 ml 384.5 ml Output Total 165 ml 100 ml Balance 157.5 ml 30.0 ml 284.5 ml medications Current Medications Medications Dose Ordered Sig/[place] Route Start Time Stop Time Status Last Admin Dose Admin Midazolam HCl 50 ml @ 1 mls/hr Q24H IV 05/28/24 21:15 06/13/24 12:57 5 MLS/HR Albuterol 2.5 mg Q6HPRN PRN NEB 05/29/24 00:00 06/17/24 18:05 2.5 MG Pantoprazole Sodium 40 mg BID IV 05/29/24 22:00 06/17/24 09:35 40 MG Enteral Nutritional Formula 1,000 ml 30ML/HR GT 05/30/24 11:00 06/16/24 14:52 1,000 ML Diagnostic Test (Pha) 1 strip Q6HR 06/02/24 12:00 06/17/24 17:27 1 STRIP Dextrose 50 ml UD PRN IV 06/02/24 10:45 06/17/24 11:25 50 ML Heparin Sodium (Porcine) 4,000 units PRN PRN IV 06/07/24 09:00 Hydralazine HCl 100 mg Q8HR PO 06/07/24 14:00 06/17/24 15:15 100 MG Meropenem 50 ml @ 17 mls/hr Q12H IV 06/08/24 19:00 06/17/24 17:48 17 MLS/HR Acetylcysteine 100 mg Q6HR NEB 06/09/24 18:00 06/17/24 18:05 100 MG Amlodipine Besylate 10 mg DAILY PO 06/10/24 10:00 06/17/24 09:35 10 MG Enoxaparin Sodium 40 mg DAILY SC 06/10/24 10:00 UNV Levetiracetam 100 ml @ 400 mls/hr DAILY IV 06/12/24 10:00 06/17/24 09:35 400 MLS/HR Bumetanide 2 mg BIDD IV 06/14/24 13:15 06/17/24 17:47 2 MG Hydralazine HCl 20 mg Q2HPRN PRN IV 06/15/24 14:00 06/17/24 03:36 20 MG Fentanyl Citrate 250 ml @ 2.5 mls/hr Q24H IV 06/15/24 12:00 06/17/24 15:12 12.5 MLS/HR Enoxaparin Sodium 40 mg DAILY SC 06/17/24 10:00 UNV Enoxaparin Sodium 30 mg DAILY SC 06/17/24 10:00 Epoetin Calin-epbx 10,000 unit TUTHSA SC 06/17/24 12:00 Sodium Chloride 10 ml QSHIFT@10,22 IV 06/17/24 22:00 UNV Examination General: RASS -5, afebrile, mucosae are moist Cardiovascular: Normal S1 and S2. No murmurs, gallops or rubs Respiratory: Bilateral crackles Abdomen: Soft, nontender, no organomegaly, normal bowel sounds MSK/skin: Right lower limb at the level of knees amputated, left lower limb 2+ pedal edema Neurological: Orientation cannot be assessed. Pupils are isocoric and reactive laboratory and microbiology Laboratory Tests 06/17/24 04:36 Test 06/17/24 04:36 Range/Units Serum Glucose 60 L 74-106 mg/dL Microbiology Date/Time Source Procedure Growth Status 06/11/24 16:06 Bronchial Washings Gram Stain - Final Resulted 06/11/24 16:06 Respiratory Culture - Preliminary Acinetobacter baumannii Pseudomonas aeruginosa Resulted 06/10/24 04:52 Trachea Gram Stain - Final Resulted 06/10/24 04:52 Respiratory Culture - Preliminary Pseudomonas aeruginosa Acinetobacter baumannii MDRO Acinetobacter baumannii Resulted 06/09/24 18:54 Blood Blood Culture - Final NO GROWTH AFTER 5 DAYS OF INCUBATION. Complete 05/30/24 11:45 Pleural Fluid Gram Stain - Final Complete 05/30/24 11:45 Pleural Fluid Body Fluid Culture - Final Complete 05/28/24 22:36 Urine - Catheterized Urine Culture - Final Enterobacter cloacae Escherichia coli Enterococcus faecalis - VRE Complete Labs and/or images reviewed: Labs reviewed by me, Image(s) reviewed by me Problem List/Assessment/Plan Problem List/Assessment/Plan 68-year-old male presents with past medical history of Chronic kidney disease, CHF, COPD, dyslipidemia, hypertension, CVA, liver disease broght to the Hospital with ALOC and SOB. Admitted and intubated on 05/28/2024 and underwent tracheostomy on 06/13. NEURO: Acute metabolic encephalopathy likely due to sepsis Patient is sedated and on mechanical ventilation, RASS scores -5 History of seizure during last admission(1 month back) used Keppra for 1 week Consulted neurology, recommended Keppra EEG shows abnormal EEG recording consistent with the presence of a diffuse nonspecific encephalopathic state CARDIOVASCULAR: Hypertension Continue home medication, injection hydralazine 10 mg q.6 hours as needed PULMONARY: Acute Hypoxic Respiratory Failure likely due to pneumonia Septic shock likely due to pneumonia, improved Pneumonia likely due to Gram-positive Gram-negative Patient is sedated and on the mechanical ventilation with a setting of (VT 500, RR 18, peep 5, FiO2 30%) ABGs shows respiratory alkalosis Chest x-ray shows bilateral infiltrates duration, worsening in compared to yesterday Sputum culture from bronchoalveolar lavage from 05/24/24 shows MRSA, Enterobacter cloacae Blood culture from the 06/02/24 shows Staphylococcus epidermidis , Staph hominis Repeat culture from 06/09/2024 shows no growth Stopped in linezolid, as given for 11 days MRSA nares screening negative Continue N-acetylcysteine Breathing treatment q.[address] scan shows [id number] left pleural effusion Chest ultrasound shows left side pleural effusion Bronchoscopy performed on 06/11, there was some thin mucus secretion on bilateral side, bronchial lavage of right lower lobe and left lower lobe was performed, and the culture results shows Pseudomonas aeruginosa and Enterobacter baumanni, MDR; ID has been consulted Continue meropenem GI GI ppx: Protonix b.i.d. Hepatitis-C virus antibody positive Repeat stool occult blood test is negative CT abdominopelvic without contrast shows no evidence of intra-abdominal hemorrhage Tracheostomy is performed on 06/13 PEG tube is placed on 06/15 : FROYLAN on CKD grade 4 Nephrology on the board, recommended Bumix 2mg BID currently dialysis dependent, last session performed on 06/13, next session is planned after putting tunneled catheter IR consulted, planned for the tunneled catheter Placement for tomorrow Planned for hemodialysis of the tunneled catheter placement UTI, urinalysis shows UTI picture Urine culture from 05/28/2024 shows Enterobacter, E coli, Enterococcus faecalis Continue meropenem Status post limb amputation, right lower limb, above the knee likely due to PAD Decubitus ulcer There are multiple grade 3-4 sacral ulcers position changing every 2 hours and dressing HEME Severe anemia, transfused 3 pack of red blood cells current HB is 8.5 ID: Sputum culture from bronchoalveolar lavage from 05/24/24 shows MRSA, Enterobacter cloacae Blood culture from the 06/02/24 shows Staphylococcus epidermidis , Staph hominis Repeat culture from 06/09/2024 shows no growth culture results from BAL from 06/11 shows Pseudomonas aeruginosa and Enterobacter baumanni, MDR; ID has been consulted continue meropenem SKIN Possible keloid There is a growth on the left shoulder, per son, lesion has been present for several years Follow up on outpatient basis Metabolic: Hypernatremia, improved Hypokalemia, improved Hyperkalemia, improved LINES/DRAINS/ACCESS: ETT, intubated on 05/28/2024 and tracheostomy performed on 06/11 IV access Hemodialysis catheter on left internal jugular vein, placed on 06/01/2024 planned to be replaced with tunneled catheter Right internal jugular vein placed on 05/29, consulted PICC line placement, and will remove IJ CVC after PICC line placement PICC line, LEFT BASILIC vein, placed on 06/17 Suprapubic catheter, changed on 06/02/2020 Dripps: Fentanyl 50 No pressor DIET: Nepro 30 mL/hour DVT prophylaxis Stopped Lovenox for the tunneled catheter placement SCDs Disposition: social media marketer consulted for transfer to the [facility] CODE STATUS: Full code Patient's status discussed with patient's son on telephone. Critical time spent more than 87 minutes, including patient care, chart review and updating the family, excluding any procedures. Case discussed with Dr. Isabel Plan discussed with: Patient, Son, Other (RN) My Orders My Orders Orders - DYLAN GOMEZ RESDILONNIE Procedure Category Date Status Time Enoxaparin Sodium PHA 06/17/24 In Process (Lovenox) 10:00 Dietary Evaluation Review Comments: 1) If GI is assessible consider Jevity 1.2 @ 60 ml/hr x24 hrs goal rate as tolerated 2) If pt remains NPO >7 days consider TPN to meet at least 75% of estimated needs 3) Advance pt diet when medically feasible to a Cardiac/Renal Specific K2,2gmNA,low phos,60g Pro diet modified per LOCOMOTIVE FIRER recommendations 4) Continue current plan of care Expected Outcomes/Goals: 1) Pt to receive adequate nutrition support 2) Pt diet to advance CC Plasma Assessment Blood Product Administration S: [id number] Date of Service: Jun 17, 2024 Billing Provider: HOLGER ISABEL MD Common Visit Codes: 88138-CJZGESAB CARE 30-74 MIN, 22176-IZDEZFVT CARE-EACH +30MIN DYLAN GOMEZ RESDIENT Jun 17, 2024 18:37 HOLGER ISABEL MD Jun 18, 2024 14:26
[2024-06-17] MEDS: SODIUM CHLOR 0.9% PF (SALINE LOCK) 10ML VIAL/SYR IV SCH (22:30)
[2024-06-18] VITALS (87 sets, daily range): BP systolic 105–180; BP diastolic 49–79; PULSE 86–130; RESP 8–22; TEMP 96.8–100.3; O2SAT 90–100
--- NOTE | 2024-06-18 04:45 | DVH ---
CHEST RADIOGRAPH Indication: Pneumonia Technique: Single frontal view of the chest was obtained Comparison: XY CHEST XRAY 1 VIEW on DOS: 06/17/24 FINDINGS: Lines and Tubes: There is a right central venous catheter with the tip terminating in the brachioceph alic / SVC junction. Left central venous catheter and left upper extremity PICC terminates in the up per and lower superior vena cava. Tracheostomy tube is unchanged. Lungs: There are bilateral opacities similar to prior study. Pleura: Trace bilateral pleural effusions. No pneumothorax. Cardiomediastinal contours: Cardiomegaly. Bones: No acute osseous abnormality. IMPRESSION: 1. Bilateral opacities similar to prior study. Trace bilateral pleural effusions. 2. Cardiomegaly.
[2024-06-18 05:16] LABS: Basophils # (auto) 0.1 10 ^3/uL (0-0.2); Basophils % (auto) 1.2 % (0.0-2.0); Eosinophils # (auto) 0.5 10 ^3/uL (0-0.8); Lymphocytes # (auto) 0.8 10 ^3/uL (0.4-5.4); Monocytes # (auto) 0.7 10 ^3/uL (0-1.3); Neutrophils # (auto) 3.3 10 ^3/uL (1.6-8.6)
[2024-06-18 05:20] LABS: Eosinophils % (auto) 8.6 % (0.0-7.0); Lymphocytes % (auto) 15.2 % (10.0-50.0); Mean Corpuscular Hemoglobin 31.7 pg (28.0-32.0); Mean Corpuscular Hgb Conc. 33.1 g/dL (32.0-36.0); Mean Corpuscular Volume 95.6 fL (80.0-100.0); Monocytes % (auto) 13.4 % (0.0-12.0); Neutrophils % (auto) 61.6 % (37.0-80.0); Nucleated Red Blood Cells % 0.2 %; Platelet Count (auto) 171 10^3/uL (140-450); Red Blood Cells 2.51 10^6/uL (4.5-5.90); White Blood Cell 5.3 10^3/uL (4.4-10.8)
[2024-06-18 05:33] LABS: Alkaline Phosphatase 92 U/L (46-116); Anion Gap 8 (5-15); Aspartate Aminotransferase 17 U/L (13-40); BUN/Creatinine Ratio 6.6 (10.0-20.0); Calcium 8.9 mg/dL (8.7-10.4); Carbon Dioxide 24 mmol/L (20-31); Chloride 102 mmol/L (98-107)
[2024-06-18 05:36] LABS: Alanine Aminotransferase < 9 U/L (7-40); Albumin 2.3 g/dL (3.2-4.8); Bilirubin, Total < 0.2 mg/dL (0.2-1.0); Blood Urea Nitrogen 32 mg/dL (9-23); Glucose 68 mg/dL (74-106); Sodium 134 mmol/L (136-145); Total Protein 5.7 g/dL (5.7-8.2)
--- NOTE | 2024-06-18 11:38 | DVHPN2 ---
Progress Note - Dictate Date Seen: Jun 18, 2024 Has the PT tested + for MRSA If YES, has PT been informed?: Yes Medical Necessity Reason Pt with a Central, PICC or Fol: Yes The following are medically ne: Central Line, Rubio Catheter Reason for rubio catheter: Strict I&O Subjective Patient was seen and evaluated at bedside. He is sedated and on mechanical ventilation. he had a tunelled cath placed today He was Admitted and intubated on 05/28, extubated on 06/09 but reintubated on 06/10. Epigastric performed on 06/13, PEG tube placed on 06/15. Creatinine is elevated at 4.86. vital signs Vital Sign Date Time Temp Pulse Resp B/P (MAP) Pulse Ox O2 Delivery O2 Flow Rate FiO2 06/18/24 10:43 180/74 06/18/24 09:58 101 19 94 30 06/18/24 08:00 Mechanical Ventilator+ 06/18/24 08:00 100.3 100.3 06/17/24 08:00 30 Total Intake and Output 06/17/24 06/17/24 06/18/24 15:00 23:00 07:00 Intake Total 273.0 ml 327.5 ml 407.0 ml Output Total 80 ml 60 ml Balance 273.0 ml 247.5 ml 347.0 ml medications Current Medications Medications Dose Ordered Sig/[place] Route Start Time Stop Time Status Last Admin Dose Admin Midazolam HCl 50 ml @ 1 mls/hr Q24H IV 05/28/24 21:15 06/13/24 12:57 5 MLS/HR Albuterol 2.5 mg Q6HPRN PRN NEB 05/29/24 00:00 06/18/24 06:13 2.5 MG Pantoprazole Sodium 40 mg BID IV 05/29/24 22:00 06/18/24 10:40 40 MG Enteral Nutritional Formula 1,000 ml 30ML/HR GT 05/30/24 11:00 06/16/24 14:52 1,000 ML Diagnostic Test (Pha) 1 strip Q6HR 06/02/24 12:00 06/18/24 11:13 1 STRIP Dextrose 50 ml UD PRN IV 06/02/24 10:45 06/17/24 11:25 50 ML Heparin Sodium (Porcine) 4,000 units PRN PRN IV 06/07/24 09:00 Hydralazine HCl 100 mg Q8HR PO 06/07/24 14:00 06/17/24 22:30 100 MG Meropenem 50 ml @ 17 mls/hr Q12H IV 06/08/24 19:00 06/18/24 07:51 17 MLS/HR Acetylcysteine 100 mg Q6HR NEB 06/09/24 18:00 06/18/24 06:13 100 MG Amlodipine Besylate 10 mg DAILY PO 06/10/24 10:00 06/18/24 10:43 10 MG Enoxaparin Sodium 40 mg DAILY SC 06/10/24 10:00 UNV Levetiracetam 100 ml @ 400 mls/hr DAILY IV 06/12/24 10:00 06/18/24 10:40 400 MLS/HR Bumetanide 2 mg BIDD IV 06/14/24 13:15 06/18/24 05:35 2 MG Hydralazine HCl 20 mg Q2HPRN PRN IV 06/15/24 14:00 06/17/24 03:36 20 MG Fentanyl Citrate 250 ml @ 2.5 mls/hr Q24H IV 06/15/24 12:00 06/18/24 05:36 17.5 MLS/HR Enoxaparin Sodium 40 mg DAILY SC 06/17/24 10:00 UNV Enoxaparin Sodium 30 mg DAILY SC 06/17/24 10:00 Epoetin Calin-epbx 10,000 unit TUTHSA SC 06/17/24 12:00 Sodium Chloride 10 ml QSHIFT@10,22 IV 06/17/24 22:00 06/18/24 10:40 10 ML objective General: Patient is a 68-year-old male in mild distress Skin: Warm, dry, normal color and texture, no rash. HEENT: Normocephalic atraumatic, mucous membranes moist and pink. Neck: Cervical and supraclavicular nodes normal without enlargement, trachea is midline, thyroid gland is normal without masses. Pulmonary: Clear to auscultation and percussion bilaterally. Cardiac: Intubated, bilateral rhonchi Abdomen: Soft, nontender, nondistended, bowel sounds present all 4 quadrants, no guarding, no rigidity, no organomegaly. Extremities: No cyanosis, clubbing, right AKA Neuro: Sedated laboratory and microbiology Laboratory Tests 06/18/24 04:45 Test 06/18/24 04:45 Range/Units Serum Glucose 68 L 74-106 mg/dL Assessment/Plan Patient is a 69-year-old male presents to the clinic with: MDRO Pseudomonas in sputum MDRO Acinetobacter baumannii in sputum MRSA Pneumonia Acute respiratory failure, s/p trach on MV Acute on chronic renal failure Coagulase-negative Staph bacteremia Acute metabolic encephalopathy Decubitus ulcer Elevated troponin Anemia Recommendations: Overall, patient is on minimal vent setting, is on trach He has received more than adequate course of antibiotics for MRSA pneumonia, the chest x-ray finding could be secondary to MRSA pneumonia versus fluid His most recent bronchial cultures is growing Pseudomonas and Acinetobacter baumannii which are both MDRO and waiting for confirmation from [facility] lab Overall, he seems clinically stable from respiratory standpoint with minimal vent setting, mostly afebrile and has normal WBC count and minimal ET tube secretions Patient is currently on meropenem however this does not cover both of these MDR. Recommend to stop meropenem. Considering overall clinical picture it seems like the MDRO is colonization hence recommend holding off on treatment. However if he spikes continuous fever, has increased workup breathing or worsening of hypoxia denude consider him starting on Ricarbio OR Fetroja + Tigecycline to cover these s/p tunneled cath placement. planned for HD Reviewed all the cultures and the blood culture seems to be a contamination however he has also received course of vancomycin followed by linezolid Patient has history of recurrent hospital admissions with progressive decline in physical condition Critical time 35 minutes spent during the encounter in coordinating care. plan discussed with RN Thank you for consult and for giving an opportunity to take care of this patient. Dietary Evaluation Review Comments: 1) If GI is assessible consider Jevity 1.2 @ 60 ml/hr x24 hrs goal rate as tolerated 2) If pt remains NPO >7 days consider TPN to meet at least 75% of estimated needs 3) Advance pt diet when medically feasible to a Cardiac/Renal Specific K2,2gmNA,low phos,60g Pro diet modified per BAR[employer] ENDSHAKER ADJUSTER recommendations 4) Continue current plan of care Expected Outcomes/Goals: 1) Pt to receive adequate nutrition support 2) Pt diet to advance Plan discussed with: Other CC Plasma Assessment Blood Product Administration S: [id number] TAPAN ORANTES MD Jun 18, 2024 11:38
--- NOTE | 2024-06-18 13:10 | DVHPN2 ---
Progress Note - Dictate Date Seen: Jun 18, 2024 Has the PT tested + for MRSA If YES, has PT been informed?: Yes Medical Necessity Reason Pt with a Central, PICC or Fol: Yes The following are medically ne: Central Line, Rubio Catheter Reason for rubio catheter: Strict I&O Subjective remain intubated in ICU vital signs Vital Sign Date Time Temp Pulse Resp B/P (MAP) Pulse Ox O2 Delivery O2 Flow Rate FiO2 06/18/24 12:00 96 06/18/24 12:00 30 06/18/24 12:00 17 152/62 (92) 90 06/18/24 12:00 Mechanical Ventilator+ 06/18/24 08:00 100.3 100.3 06/17/24 08:00 30 Total Intake and Output 06/17/24 06/17/24 06/18/24 15:00 23:00 07:00 Intake Total 273.0 ml 327.5 ml 407.0 ml Output Total 80 ml 60 ml Balance 273.0 ml 247.5 ml 347.0 ml medications Current Medications Medications Dose Ordered Sig/[place] Route Start Time Stop Time Status Last Admin Dose Admin Midazolam HCl 50 ml @ 1 mls/hr Q24H IV 05/28/24 21:15 06/13/24 12:57 5 MLS/HR Albuterol 2.5 mg Q6HPRN PRN NEB 05/29/24 00:00 06/18/24 11:41 2.5 MG Pantoprazole Sodium 40 mg BID IV 05/29/24 22:00 06/18/24 10:40 40 MG Enteral Nutritional Formula 1,000 ml 30ML/HR GT 05/30/24 11:00 06/16/24 14:52 1,000 ML Diagnostic Test (Pha) 1 strip Q6HR 06/02/24 12:00 06/18/24 11:13 1 STRIP Dextrose 50 ml UD PRN IV 06/02/24 10:45 06/17/24 11:25 50 ML Heparin Sodium (Porcine) 4,000 units PRN PRN IV 06/07/24 09:00 Hydralazine HCl 100 mg Q8HR PO 06/07/24 14:00 06/17/24 22:30 100 MG Meropenem 50 ml @ 17 mls/hr Q12H IV 06/08/24 19:00 06/18/24 07:51 17 MLS/HR Acetylcysteine 100 mg Q6HR NEB 06/09/24 18:00 06/18/24 11:41 100 MG Amlodipine Besylate 10 mg DAILY PO 06/10/24 10:00 06/18/24 10:43 10 MG Enoxaparin Sodium 40 mg DAILY SC 06/10/24 10:00 UNV Levetiracetam 100 ml @ 400 mls/hr DAILY IV 06/12/24 10:00 06/18/24 10:40 400 MLS/HR Bumetanide 2 mg BIDD IV 06/14/24 13:15 06/18/24 05:35 2 MG Hydralazine HCl 20 mg Q2HPRN PRN IV 06/15/24 14:00 06/17/24 03:36 20 MG Fentanyl Citrate 250 ml @ 2.5 mls/hr Q24H IV 06/15/24 12:00 06/18/24 05:36 17.5 MLS/HR Enoxaparin Sodium 40 mg DAILY SC 06/17/24 10:00 UNV Enoxaparin Sodium 30 mg DAILY SC 06/17/24 10:00 Epoetin Calin-epbx 10,000 unit TUTHSA SC 06/17/24 12:00 Sodium Chloride 10 ml QSHIFT@10,22 IV 06/17/24 22:00 06/18/24 10:40 10 ML objective Critically ill-appearing elderly white male Intubated On sedation No pressors No JVD Regular rate and rhythm Abdomen nondistended non firm no guarding no fluid wave, colostomy has hard stool Suprapubic Rubio catheter Urine color is clear No pitting edema of the lower extremity Has upper extremity bilateral arm swelling laboratory and microbiology Laboratory Tests 06/18/24 04:45 Test 06/18/24 04:45 Range/Units Serum Glucose 68 L 74-106 mg/dL Assessment/Plan Acute kidney injury on chronic kidney disease stage 4 -> ATN Hemodynamically mediated Acute respiratory failure Anemia suspected due to low blood loss s/p PRBC Hypernatremia Hypokalemia Metabolic acidosis Chronic urinary retention sepsis due to bacteremia planned for HD after catheter placement IV ABX as per ICU with renal dosing Strict Is&Os Avoid contrast studies Critically ill Poor candidate for long-term dialysis currently on acute HD Critical care time spent 35 minutes Dietary Evaluation Review Comments: 1) If GI is assessible consider Jevity 1.2 @ 60 ml/hr x24 hrs goal rate as tolerated 2) If pt remains NPO >7 days consider TPN to meet at least 75% of estimated needs 3) Advance pt diet when medically feasible to a Cardiac/Renal Specific K2,2gmNA,low phos,60g Pro diet modified per DONKEY DOCTOR recommendations 4) Continue current plan of care Expected Outcomes/Goals: 1) Pt to receive adequate nutrition support 2) Pt diet to advance Plan discussed with: Other CC Plasma Assessment Blood Product Administration S: [id number] ANNA ROMERO MD Jun 18, 2024 13:10
[2024-06-18] MEDS: LIDOCAINE 2%HCL (LOCAL ANESTH.) INJ 20ML MDV ONE (17:16)
[2024-06-18] MEDS: HEPARIN 1,000 UNITS/ml 1ML VIAL ONE (17:34)
[2024-06-18] MEDS: HEPARIN SODIUM (PORCINE) 5000 UNITS/ML 1ML VIAL ONE (17:36)
--- NOTE | 2024-06-18 20:03 | DVHPNRES ---
Progress Note Date Seen: Jun 18, 2024 Resident Creating Document: DYLAN GOMEZ RESDIENT Has the PT tested + for MRSA If YES, has PT been informed?: Yes Medical Necessity Reason Pt with a Central, PICC or Fol: Yes The following are medically ne: Central Line, Rubio Catheter Reason for ruibo catheter: Strict I&O Subjective Review of Systems This is a 65-year-old male with past medical history of CHF, CKD, COPD, dyslipidemia, hypertension, CVA brought to the hospital with shortness of breaths and at the level of consciousness. Admitted and intubated on 05/28, extubated on 06/09 but reintubated on 06/10. Epigastric performed on 06/13, PEG tube placed on 06/15. Today, patient seen and examined at the bedside. Patient is sedated and on on mechanical ventilation. Review of systems could not obtain. Chest x-ray shows bilateral infiltration. Objective vital signs Vital Sign Date Time Temp Pulse Resp B/P (MAP) Pulse Ox O2 Delivery O2 Flow Rate FiO2 06/18/24 18:58 90 Mechanical Ventilator+ 30 30 06/18/24 18:58 89 18 132/64 (86) 06/18/24 16:00 98.0 98.0 06/17/24 08:00 30 Total Intake and Output 06/17/24 06/17/24 06/18/24 15:00 23:00 07:00 Intake Total 273.0 ml 327.5 ml 407.0 ml Output Total 80 ml 60 ml Balance 273.0 ml 247.5 ml 347.0 ml medications Current Medications Medications Dose Ordered Sig/[place] Route Start Time Stop Time Status Last Admin Dose Admin Midazolam HCl 50 ml @ 1 mls/hr Q24H IV 05/28/24 21:15 06/13/24 12:57 5 MLS/HR Albuterol 2.5 mg Q6HPRN PRN NEB 05/29/24 00:00 06/18/24 18:58 2.5 MG Pantoprazole Sodium 40 mg BID IV 05/29/24 22:00 06/18/24 10:40 40 MG Enteral Nutritional Formula 1,000 ml 30ML/HR GT 05/30/24 11:00 06/16/24 14:52 1,000 ML Diagnostic Test (Pha) 1 strip Q6HR 06/02/24 12:00 06/18/24 18:31 1 STRIP Dextrose 50 ml UD PRN IV 06/02/24 10:45 06/17/24 11:25 50 ML Heparin Sodium (Porcine) 4,000 units PRN PRN IV 06/07/24 09:00 Hydralazine HCl 100 mg Q8HR PO 06/07/24 14:00 06/17/24 22:30 100 MG Meropenem 50 ml @ 17 mls/hr Q12H IV 06/08/24 19:00 06/18/24 18:32 17 MLS/HR Acetylcysteine 100 mg Q6HR NEB 06/09/24 18:00 06/18/24 18:58 100 MG Amlodipine Besylate 10 mg DAILY PO 06/10/24 10:00 06/18/24 10:43 10 MG Enoxaparin Sodium 40 mg DAILY SC 06/10/24 10:00 UNV Levetiracetam 100 ml @ 400 mls/hr DAILY IV 06/12/24 10:00 06/18/24 10:40 400 MLS/HR Bumetanide 2 mg BIDD IV 06/14/24 13:15 06/18/24 18:31 2 MG Hydralazine HCl 20 mg Q2HPRN PRN IV 06/15/24 14:00 06/17/24 03:36 20 MG Fentanyl Citrate 250 ml @ 2.5 mls/hr Q24H IV 06/15/24 12:00 06/18/24 05:36 17.5 MLS/HR Enoxaparin Sodium 40 mg DAILY SC 06/17/24 10:00 UNV Enoxaparin Sodium 30 mg DAILY SC 06/17/24 10:00 Epoetin Calin-epbx 10,000 unit TUTHSA SC 06/17/24 12:00 Sodium Chloride 10 ml QSHIFT@10,22 IV 06/17/24 22:00 06/18/24 10:40 10 ML Examination General: RASS -5, afebrile, mucosae are moist Cardiovascular: Normal S1 and S2. No murmurs, gallops or rubs Respiratory: Bilateral crackles Abdomen: Soft, nontender, no organomegaly, normal bowel sounds MSK/skin: Right lower limb at the level of knees amputated, left lower limb 2+ pedal edema Neurological: Orientation cannot be assessed. Pupils are isocoric and reactive laboratory and microbiology Laboratory Tests 06/18/24 04:45 Test 06/18/24 04:45 Range/Units Serum Glucose 68 L 74-106 mg/dL Microbiology Date/Time Source Procedure Growth Status 06/11/24 16:06 Bronchial Washings Gram Stain - Final Resulted 06/11/24 16:06 Respiratory Culture - Preliminary Acinetobacter baumannii Pseudomonas aeruginosa Resulted 06/10/24 04:52 Trachea Gram Stain - Final Resulted 06/10/24 04:52 Respiratory Culture - Preliminary Pseudomonas aeruginosa Acinetobacter baumannii MDRO Acinetobacter baumannii Resulted 06/09/24 18:54 Blood Blood Culture - Final NO GROWTH AFTER 5 DAYS OF INCUBATION. Complete 05/30/24 11:45 Pleural Fluid Gram Stain - Final Complete 05/30/24 11:45 Pleural Fluid Body Fluid Culture - Final Complete 05/28/24 22:36 Urine - Catheterized Urine Culture - Final Enterobacter cloacae Escherichia coli Enterococcus faecalis - VRE Complete Labs and/or images reviewed: Labs reviewed by me, Image(s) reviewed by me Problem List/Assessment/Plan Problem List/Assessment/Plan 68-year-old male presents with past medical history of Chronic kidney disease, CHF, COPD, dyslipidemia, hypertension, CVA, liver disease broght to the Hospital with ALOC and SOB. Admitted and intubated on 05/28/2024 and underwent tracheostomy on 06/13. NEURO: Acute metabolic encephalopathy likely due to sepsis Patient is sedated and on mechanical ventilation, RASS scores -5 History of seizure during last admission(1 month back) used Keppra for 1 week Consulted neurology, recommended Keppra EEG shows abnormal EEG recording consistent with the presence of a diffuse nonspecific encephalopathic state CARDIOVASCULAR: Hypertension Continue home medication, injection hydralazine 10 mg q.6 hours as needed PULMONARY: Acute Hypoxic Respiratory Failure likely due to pneumonia Septic shock likely due to pneumonia, improved Pneumonia likely due to Gram-positive Gram-negative Patient is sedated and on the mechanical ventilation with a setting of (VT 500, RR 18, peep 5, FiO2 30%) ABGs shows respiratory alkalosis Chest x-ray shows bilateral infiltrates duration, worsening in compared to yesterday Sputum culture from bronchoalveolar lavage from 05/24/24 shows MRSA, Enterobacter cloacae Blood culture from the 06/02/24 shows Staphylococcus epidermidis , Staph hominis Repeat culture from 06/09/2024 shows no growth Stopped in linezolid, as given for 11 days MRSA nares screening negative Continue N-acetylcysteine Breathing treatment q.[address] scan shows [id number] left pleural effusion Chest ultrasound shows left side pleural effusion Bronchoscopy performed on 06/11, there was some thin mucus secretion on bilateral side, bronchial lavage of right lower lobe and left lower lobe was performed, and the culture results shows Pseudomonas aeruginosa and Enterobacter baumanni, MDR; ID has been consulted Continue meropenem, started on 06/08 GI GI ppx: Protonix b.i.d. Hepatitis-C virus antibody positive Repeat stool occult blood test is negative CT abdominopelvic without contrast shows no evidence of intra-abdominal hemorrhage Tracheostomy is performed on 06/13 PEG tube is placed on 06/15 : FROYLAN on CKD grade 4 Nephrology on the board, recommended Bumix 2mg BID currently dialysis dependent, last session performed on 06/13, next session is planned after putting tunneled catheter IR consulted, planned for the tunneled catheter Placement for tomorrow Planned for hemodialysis of the tunneled catheter placement UTI, urinalysis shows UTI picture Urine culture from 05/28/2024 shows Enterobacter, E coli, Enterococcus faecalis Continue meropenem Status post limb amputation, right lower limb, above the knee likely due to PAD Decubitus ulcer There are multiple grade 3-4 sacral ulcers position changing every 2 hours and dressing HEME Severe anemia, transfused 3 pack of red blood cells current HB is 8.5 ID: Sputum culture from bronchoalveolar lavage from 05/24/24 shows MRSA, Enterobacter cloacae Blood culture from the 06/02/24 shows Staphylococcus epidermidis , Staph hominis Repeat culture from 06/09/2024 shows no growth culture results from BAL from 06/11 shows Pseudomonas aeruginosa and Enterobacter baumanni, MDR ID is on the board continue meropenem SKIN Possible keloid There is a growth on the left shoulder, per son, lesion has been present for several years Follow up on outpatient basis Metabolic: Hypernatremia, improved Hypokalemia, improved Hyperkalemia, improved Mild hyponatremia, monitoring LINES/DRAINS/ACCESS: ETT, intubated on 05/28/2024 and tracheostomy performed on 06/11 PEG tube placed on 06/15 IV access Hemodialysis catheter on left internal jugular vein, placed on 06/01/2024 planned to be replaced with tunneled catheter PICC line, LEFT BASILIC vein, placed on 06/17 Suprapubic catheter, changed on 06/02/2020 Dripps: Fentanyl 50 No pressor DIET: Nepro 30 mL/hour DVT prophylaxis Stopped Lovenox for the tunneled catheter placement SCDs Disposition: director of social media marketing consulted for transfer to the [facility] CODE STATUS: Full code Patient's status discussed with patient's son on telephone. Critical time spent more than 84 minutes, including patient care, chart review and updating the family, excluding any procedures. Case discussed with Dr. Isabel Plan discussed with: Patient, Son, Other (RN) My Orders My Orders Orders - DYLAN GOMEZ RESDIENT Procedure Category Date Status Time Complete Blood Count LAB 06/19/24 Verified 04:00 Comprehensive LAB 06/19/24 Verified Metabolic Panel 04:00 Chest Xray 1 View XY 06/19/24 Logged 04:00 Abg W/ Co-Ox RT 06/19/24 Logged 04:00 Dietary Evaluation Review Comments: 1) If GI is assessible consider Jevity 1.2 @ 60 ml/hr x24 hrs goal rate as tolerated 2) If pt remains NPO >7 days consider TPN to meet at least 75% of estimated needs 3) Advance pt diet when medically feasible to a Cardiac/Renal Specific K2,2gmNA,low phos,60g Pro diet modified per [employer] recommendations 4) Continue current plan of care Expected Outcomes/Goals: 1) Pt to receive adequate nutrition support 2) Pt diet to advance CC Plasma Assessment Blood Product Administration S: [id number] Date of Service: Jun 18, 2024 Billing Provider: HOLGER ISABEL MD Common Visit Codes: 98024-KNIGXGLH CARE 30-74 MIN, 23114-MEMQFZBR CARE-EACH +30MIN DYLAN GOMEZ RESDIENT Jun 18, 2024 20:03 HOLGER ISABEL MD Jun 19, 2024 12:25
[2024-06-19] VITALS (50 sets, daily range): BP systolic 92–176; BP diastolic 31–88; PULSE 79–114; RESP 12–22; TEMP 98.4–99.9; O2SAT 77–97
--- NOTE | 2024-06-19 04:10 | DVH ---
CHEST RADIOGRAPH Indication: Pneumonia Technique: Single frontal view of the chest was obtained Comparison: XY CHEST XRAY 1 VIEW on DOS: 06/18/24, XY CHEST XRAY 1 VIEW on DOS: 06/17/24, XY CHEST PORT ABLE on DOS: 06/16/24, XY CHEST PORTABLE on DOS: 06/15/24, XY CHEST XRAY 1 VIEW on DOS: 06/14/24, XY CH EST XRAY 1 VIEW on DOS: 06/18/24 FINDINGS: Lines and Tubes: There is a right central venous catheter with the tip terminating in the brachioceph alic / SVC junction. Left central venous catheter and left upper extremity PICC terminates in the up per and lower superior vena cava. Tracheostomy tube is unchanged. Lungs: There are bilateral opacities similar to prior study. Pleura: Trace bilateral pleural effusions. No pneumothorax. Cardiomediastinal contours: Cardiomegaly. Bones: No acute osseous abnormality. IMPRESSION: 1. Bilateral opacities similar to prior study. Trace bilateral pleural effusions. 2. Cardiomegaly.
--- NOTE | 2024-06-19 04:12 | DVH ---
Exam: US US GUIDED VASCULAR ACCESS Date: 06/17/2024 05:06 PM Clinical History: picc line placement Comparison: None Findings: Targeted sonographic evaluation of the arm was obtained utilizing grayscale and color Doppler imagi ng. IMPRESSION: Sonographic assistance for central line placement. Please refer to procedural report for detailed fin dings.
[2024-06-19 06:50] LABS: Basophils # (auto) 0 10 ^3/uL (0-0.2); Basophils % (auto) 0.9 % (0.0-2.0); Eosinophils # (auto) 0.5 10 ^3/uL (0-0.8); Eosinophils % (auto) 11.3 % (0.0-7.0); Hemoglobin 8.5 g/dL (13.5-17.5); Lymphocytes # (auto) 0.6 10 ^3/uL (0.4-5.4); Lymphocytes % (auto) 11.8 % (10.0-50.0); Mean Corpuscular Hemoglobin 32.2 pg (28.0-32.0); Mean Corpuscular Hgb Conc. 34.1 g/dL (32.0-36.0); Mean Corpuscular Volume 94.3 fL (80.0-100.0); Monocytes # (auto) 0.5 10 ^3/uL (0-1.3); Monocytes % (auto) 10.3 % (0.0-12.0); Neutrophils # (auto) 3.2 10 ^3/uL (1.6-8.6); Neutrophils % (auto) 65.7 % (37.0-80.0); Nucleated Red Blood Cells % 0.1 %; Platelet Count (auto) 187 10^3/uL (140-450); Red Blood Cells 2.65 10^6/uL (4.5-5.90); Red Cell Distribution Width 16.4 % (11.8-14.3); White Blood Cell 4.8 10^3/uL (4.4-10.8)
[2024-06-19 06:59] LABS: Alkaline Phosphatase 86 U/L (46-116); Anion Gap 11 (5-15); Aspartate Aminotransferase 19 U/L (13-40); BUN/Creatinine Ratio 6.9 (10.0-20.0); Carbon Dioxide 22 mmol/L (20-31); Chloride 102 mmol/L (98-107); Potassium 3.8 mmol/L (3.5-5.1)
[2024-06-19 07:13] LABS: Alanine Aminotransferase < 9 U/L (7-40); Albumin 2.3 g/dL (3.2-4.8); Bilirubin, Total < 0.2 mg/dL (0.2-1.0); Blood Urea Nitrogen 35 mg/dL (9-23); Glucose 34 mg/dL (74-106); Sodium 135 mmol/L (136-145); Total Protein 5.7 g/dL (5.7-8.2)
[2024-06-19] MEDS: SODIUM CHL 0.9% 1000 ML BAG XX ONE (08:30)
--- NOTE | 2024-06-19 08:52 | DVH ---
PROCEDURE: TUNNELED CENTRAL VENOUS CATHETER PLACEMENT USING FLUOROSCOPY AND ULTRASOUND HISTORY: TD CATH DOCUMENTATION: Informed consent was obtained and a procedural time out was performed. SEDATION: Moderate sedation was utilized during the procedure. The patient received benzodiazepines a nd opioids, the dosing of which was documented in the patient s permanent medical record. Pre-sedatio n history and evaluation revealed no contraindications to sedation. The patient s level of consciousn ess and physiologic status was monitored continuously by the physician and nursing staff throughout t he procedure. Total intra-service moderate sedation time was 30 minutes. FLUORO: 1 minutes, DAp: 2 mGy, TECHNIQUE: The skin over the RIGHT internal jugular vein and chest was sterilely prepped, draped and anesthetized with 1% lidocaine with epinephrine. The vein was accessed with a 21-gauge needle under u ltrasound guidance with an image archived in the PACS. A guidewire was then passed into the central v eins under fluoroscopy. The subcutaneous tunnel was anesthetized with 1% lidocaine and the catheter w as tunneled to the venous entry site, cut to the appropriate length, and inserted through a peel away sheath. A final radiograph was obtained, the catheter was flushed and secured in place, and sterile dressings were applied. Procedural physician complied with all CLIP criteria, including preprocedural hand hygiene and use of maximum sterile barriers including hat, gown, sterile gloves, mask, and head to toe drape. The neck and chest were prepped with chlorhexidine solution and draped in the usual sterile fashion. The prep solution was allowed to dry prior to puncture. FINDINGS: Ultrasound demonstrates a patent RIGHT internal jugular vein. The tip of the catheter was p laced near the cavoatrial junction. No complications are identified. IMPRESSION: SUCCESSFUL 14.5 x 23 cm ARMENIAN DUAL-LUMEN POWER INJECTABLE TUNNELED CENTRAL VENOUS CATHETER PLACEMENT . THE CATHETER IS READY FOR IMMEDIATE USE.
[2024-06-19 10:38] LABS: Base Excess -3.5 mmol/L (-2.0-3.0)
--- NOTE | 2024-06-19 11:00 | DVHPN2 ---
Progress Note - Dictate Date Seen: Jun 19, 2024 Has the PT tested + for MRSA If YES, has PT been informed?: Yes Medical Necessity Reason Pt with a Central, PICC or Fol: Yes The following are medically ne: Central Line, Rubio Catheter Reason for rubio catheter: Strict I&O Subjective Patient was seen and evaluated at bedside. He is sedated and on mechanical ventilation. He had a tunnelled cath placed yesterday. He was Admitted and intubated on 05/28, extubated on 06/09 but reintubated on 06/10. Epigastric performed on 06/13, PEG tube placed on 06/15. Creatinine is elevated at 4.86. vital signs Vital Sign Date Time Temp Pulse Resp B/P (MAP) Pulse Ox O2 Delivery O2 Flow Rate FiO2 06/19/24 10:00 108 17 147/79 (101) 90 06/19/24 08:00 99.9 99.9 06/19/24 08:00 30 06/19/24 06:00 Mechanical Ventilator+ 06/17/24 08:00 30 Total Intake and Output 06/18/24 06/18/24 06/19/24 14:59 22:59 06:59 Intake Total 290.0 ml 292.5 ml 340.0 ml Output Total 60 ml 125 ml Balance 290.0 ml 232.5 ml 215.0 ml medications Current Medications Medications Dose Ordered Sig/[place] Route Start Time Stop Time Status Last Admin Dose Admin Midazolam HCl 50 ml @ 1 mls/hr Q24H IV 05/28/24 21:15 06/13/24 12:57 5 MLS/HR Albuterol 2.5 mg Q6HPRN PRN NEB 05/29/24 00:00 06/19/24 06:59 2.5 MG Pantoprazole Sodium 40 mg BID IV 05/29/24 22:00 06/19/24 09:10 40 MG Enteral Nutritional Formula 1,000 ml 30ML/HR GT 05/30/24 11:00 06/18/24 20:40 1,000 ML Diagnostic Test (Pha) 1 strip Q6HR 06/02/24 12:00 06/19/24 06:19 1 STRIP Dextrose 50 ml UD PRN IV 06/02/24 10:45 06/19/24 04:55 50 ML Heparin Sodium (Porcine) 4,000 units PRN PRN IV 06/07/24 09:00 Hydralazine HCl 100 mg Q8HR PO 06/07/24 14:00 06/19/24 06:19 100 MG Meropenem 50 ml @ 17 mls/hr Q12H IV 06/08/24 19:00 06/19/24 06:19 17 MLS/HR Acetylcysteine 100 mg Q6HR NEB 06/09/24 18:00 06/19/24 06:59 100 MG Amlodipine Besylate 10 mg DAILY PO 06/10/24 10:00 06/19/24 09:10 10 MG Enoxaparin Sodium 40 mg DAILY SC 06/10/24 10:00 UNV Levetiracetam 100 ml @ 400 mls/hr DAILY IV 06/12/24 10:00 06/18/24 10:40 400 MLS/HR Bumetanide 2 mg BIDD IV 06/14/24 13:15 06/19/24 06:20 2 MG Hydralazine HCl 20 mg Q2HPRN PRN IV 06/15/24 14:00 06/17/24 03:36 20 MG Fentanyl Citrate 250 ml @ 2.5 mls/hr Q24H IV 06/15/24 12:00 06/19/24 09:13 17.5 MLS/HR Enoxaparin Sodium 40 mg DAILY SC 06/17/24 10:00 UNV Enoxaparin Sodium 30 mg DAILY SC 06/17/24 10:00 06/19/24 09:11 30 MG Epoetin Calin-epbx 10,000 unit TUTHSA SC 06/17/24 12:00 Sodium Chloride 10 ml QSHIFT@10,22 IV 06/17/24 22:00 06/19/24 09:11 10 ML objective General: Patient is in mild distress HEENT: Normocephalic atraumatic, has trach Neck: Cervical and supraclavicular nodes normal without enlargement, trachea is midline, thyroid gland is normal without masses. Pulmonary: Clear to auscultation and percussion bilaterally. Cardiac: heart sound normal Abdomen: Soft, nontender, nondistended, bowel sounds present all 4 quadrants, no guarding, no rigidity, no organomegaly. Extremities: No cyanosis, clubbing, right AKA skin decub ulcers Neuro: Sedated laboratory and microbiology Laboratory Tests 06/19/24 04:50 Test 06/19/24 04:50 Range/Units Serum Glucose 34 *L 74-106 mg/dL Assessment/Plan Patient is a 69-year-old male presents to the clinic with: MDRO Pseudomonas in sputum MDRO Acinetobacter baumannii in sputum MRSA Pneumonia Acute respiratory failure, s/p trach on MV Acute on chronic renal failure Coagulase-negative Staph bacteremia Acute metabolic encephalopathy Decubitus ulcer Elevated troponin Anemia Recommendations: Overall, patient is on minimal vent setting, is on trach He has received more than adequate course of antibiotics for MRSA pneumonia, the chest x-ray finding could be secondary to MRSA pneumonia versus fluid His most recent bronchial cultures is growing Pseudomonas and Acinetobacter baumannii which are both MDRO and waiting for confirmation from [facility] lab Overall, he seems clinically stable from respiratory standpoint with minimal vent setting, mostly afebrile and has normal WBC count and minimal ET tube secretions Patient is currently on meropenem however this does not cover both of these MDR. Recommend to stop meropenem. Considering overall clinical picture it seems like the MDRO is colonization hence recommend holding off on treatment. However if he spikes continuous fever,or has increased workup breathing or worsening of hypoxia denude consider him starting on Ricarbio OR Fetroja + Tigecycline to cover these s/p tunneled cath placement. planned for HD Reviewed all the cultures and the blood culture seems to be a contamination however he has also received course of vancomycin followed by linezolid Patient has history of recurrent hospital admissions with progressive decline in physical condition recommend wound care for decub Critical time 35 minutes spent during the encounter in coordinating care. plan discussed with RN Thank you for consult and for giving an opportunity to take care of this patient. Dietary Evaluation Review Comments: 1) If GI is assessible consider Jevity 1.2 @ 60 ml/hr x24 hrs goal rate as tolerated 2) If pt remains NPO >7 days consider TPN to meet at least 75% of estimated needs 3) Advance pt diet when medically feasible to a Cardiac/Renal Specific K2,2gmNA,low phos,60g Pro diet modified per [employer] recommendations 4) Continue current plan of care Expected Outcomes/Goals: 1) Pt to receive adequate nutrition support 2) Pt diet to advance Plan discussed with: Other CC Plasma Assessment Blood Product Administration S: [id number] TAPAN ORANTES MD Jun 19, 2024 11:00
[2024-06-19] MEDS: MAGNESIUM SULFATE 1GM/100ML 100 ML IV ONE (11:43)
--- NOTE | 2024-06-19 14:44 | DVHPN2 ---
Progress Note - Dictate Date Seen: Jun 19, 2024 Has the PT tested + for MRSA If YES, has PT been informed?: Yes Medical Necessity Reason Pt with a Central, PICC or Fol: Yes The following are medically ne: Central Line, Rubio Catheter Reason for rubio catheter: Strict I&O Subjective remain intubated in ICU s/p tunneled dialysis catheter yesterday Hemodialysis nurse at bedside vital signs Vital Sign Date Time Temp Pulse Resp B/P (MAP) Pulse Ox O2 Delivery O2 Flow Rate FiO2 06/19/24 14:23 102 18 102/51 (68) 92 30 06/19/24 14:17 Mechanical Ventilator+ 06/19/24 12:00 99.3 99.3 06/17/24 08:00 30 Total Intake and Output 06/18/24 06/18/24 06/19/24 15:00 23:00 07:00 Intake Total 290.0 ml 292.5 ml 322.5 ml Output Total 60 ml 125 ml Balance 290.0 ml 232.5 ml 197.5 ml medications Current Medications Medications Dose Ordered Sig/[place] Route Start Time Stop Time Status Last Admin Dose Admin Midazolam HCl 50 ml @ 1 mls/hr Q24H IV 05/28/24 21:15 06/13/24 12:57 5 MLS/HR Albuterol 2.5 mg Q6HPRN PRN NEB 05/29/24 00:00 06/19/24 12:54 2.5 MG Pantoprazole Sodium 40 mg BID IV 05/29/24 22:00 06/19/24 09:10 40 MG Enteral Nutritional Formula 1,000 ml 30ML/HR GT 05/30/24 11:00 06/18/24 20:40 1,000 ML Diagnostic Test (Pha) 1 strip Q6HR 06/02/24 12:00 06/19/24 12:00 1 STRIP Dextrose 50 ml UD PRN IV 06/02/24 10:45 06/19/24 04:55 50 ML Heparin Sodium (Porcine) 4,000 units PRN PRN IV 06/07/24 09:00 Hydralazine HCl 100 mg Q8HR PO 06/07/24 14:00 06/19/24 06:19 100 MG Meropenem 50 ml @ 17 mls/hr Q12H IV 06/08/24 19:00 06/19/24 06:19 17 MLS/HR Acetylcysteine 100 mg Q6HR NEB 06/09/24 18:00 06/19/24 12:54 100 MG Amlodipine Besylate 10 mg DAILY PO 06/10/24 10:00 06/19/24 09:10 10 MG Enoxaparin Sodium 40 mg DAILY SC 06/10/24 10:00 UNV Levetiracetam 100 ml @ 400 mls/hr DAILY IV 06/12/24 10:00 06/18/24 10:40 400 MLS/HR Bumetanide 2 mg BIDD IV 06/14/24 13:15 06/19/24 06:20 2 MG Hydralazine HCl 20 mg Q2HPRN PRN IV 06/15/24 14:00 06/17/24 03:36 20 MG Fentanyl Citrate 250 ml @ 2.5 mls/hr Q24H IV 06/15/24 12:00 06/19/24 09:13 17.5 MLS/HR Enoxaparin Sodium 40 mg DAILY SC 06/17/24 10:00 UNV Enoxaparin Sodium 30 mg DAILY SC 06/17/24 10:00 06/19/24 09:11 30 MG Epoetin Calin-epbx 10,000 unit TUTHSA SC 06/17/24 12:00 Sodium Chloride 10 ml QSHIFT@10,22 IV 06/17/24 22:00 06/19/24 09:11 10 ML Lactulose 30 ml BID PEG 06/19/24 22:00 objective Critically ill-appearing elderly white male Tracheostomy to vent On sedation No pressors No JVD Regular rate and rhythm Abdomen nondistended non firm no guarding no fluid wave, colostomy has hard stool Suprapubic Rubio catheter Urine color is clear No pitting edema of the lower extremity Has upper extremity bilateral arm swelling laboratory and microbiology Laboratory Tests 06/19/24 04:50 Test 06/19/24 04:50 Range/Units Serum Glucose 34 *L 74-106 mg/dL Assessment/Plan Acute kidney injury on chronic kidney disease stage 4 -> ATN Hemodynamically mediated Acute respiratory failure Anemia suspected due to low blood loss s/p PRBC Hypernatremia Hypokalemia Metabolic acidosis Chronic urinary retention sepsis due to bacteremia Hemodialysis today fluid removal as tolerated, IV albumin during dialysis to prevent hypotension IV ABX as per ICU with renal dosing Strict Is&Os Avoid contrast studies Critically ill Poor candidate for long-term dialysis currently on acute HD Critical care time spent 35 minutes Dietary Evaluation Review Comments: 1) If GI is assessible consider Jevity 1.2 @ 60 ml/hr x24 hrs goal rate as tolerated 2) If pt remains NPO >7 days consider TPN to meet at least 75% of estimated needs 3) Advance pt diet when medically feasible to a Cardiac/Renal Specific K2,2gmNA,low phos,60g Pro diet modified per PREVENTIVE MAINTENANCE COORDINATOR recommendations 4) Continue current plan of care Expected Outcomes/Goals: 1) Pt to receive adequate nutrition support 2) Pt diet to advance Plan discussed with: Other CC Plasma Assessment Blood Product Administration S: [id number] ANNA ROMERO MD Jun 19, 2024 14:44
[2024-06-19] MEDS: ALBUMIN 25% 100 ML IV ONE (16:40)
--- NOTE | 2024-06-19 17:16 | DVHPNRES ---
Progress Note Date Seen: Jun 19, 2024 Resident Creating Document: DYLAN GOMEZ RESDIENT Has the PT tested + for MRSA If YES, has PT been informed?: Yes Medical Necessity Reason Pt with a Central, PICC or Fol: Yes The following are medically ne: Central Line, Rubio Catheter Reason for rubio catheter: Strict I&O Subjective Review of Systems This is a 65-year-old male with past medical history of CHF, CKD, COPD, dyslipidemia, hypertension, CVA brought to the hospital with shortness of breaths and at the level of consciousness. Admitted and intubated on 05/28, extubated on 06/09 but reintubated on 06/10. Epigastric performed on 06/13, PEG tube placed on 06/15. Today, patient seen and examined at the bedside. Patient is sedated and on on mechanical ventilation. Review of systems could not obtain. Chest x-ray shows bilateral infiltration, she was worsening incompetent yesterday. Patient reports: No new complaints Objective vital signs Vital Sign Date Time Temp Pulse Resp B/P (MAP) Pulse Ox O2 Delivery O2 Flow Rate FiO2 06/19/24 16:31 107 18 145/67 (93) 93 30 06/19/24 16:00 98.4 98.4 06/19/24 16:00 Mechanical Ventilator+ 06/17/24 08:00 30 Total Intake and Output 06/18/24 06/18/24 06/19/24 15:00 23:00 07:00 Intake Total 290.0 ml 292.5 ml 340.0 ml Output Total 60 ml 125 ml Balance 290.0 ml 232.5 ml 215.0 ml medications Current Medications Medications Dose Ordered Sig/[place] Route Start Time Stop Time Status Last Admin Dose Admin Midazolam HCl 50 ml @ 1 mls/hr Q24H IV 05/28/24 21:15 06/13/24 12:57 5 MLS/HR Albuterol 2.5 mg Q6HPRN PRN NEB 05/29/24 00:00 06/19/24 12:54 2.5 MG Pantoprazole Sodium 40 mg BID IV 05/29/24 22:00 06/19/24 09:10 40 MG Enteral Nutritional Formula 1,000 ml 30ML/HR GT 05/30/24 11:00 06/18/24 20:40 1,000 ML Diagnostic Test (Pha) 1 strip Q6HR 06/02/24 12:00 06/19/24 12:00 1 STRIP Dextrose 50 ml UD PRN IV 06/02/24 10:45 06/19/24 04:55 50 ML Heparin Sodium (Porcine) 4,000 units PRN PRN IV 06/07/24 09:00 Hydralazine HCl 100 mg Q8HR PO 06/07/24 14:00 06/19/24 06:19 100 MG Meropenem 50 ml @ 17 mls/hr Q12H IV 06/08/24 19:00 06/19/24 06:19 17 MLS/HR Acetylcysteine 100 mg Q6HR NEB 06/09/24 18:00 06/19/24 12:54 100 MG Amlodipine Besylate 10 mg DAILY PO 06/10/24 10:00 06/19/24 09:10 10 MG Enoxaparin Sodium 40 mg DAILY SC 06/10/24 10:00 UNV Levetiracetam 100 ml @ 400 mls/hr DAILY IV 06/12/24 10:00 06/19/24 16:32 400 MLS/HR Bumetanide 2 mg BIDD IV 06/14/24 13:15 06/19/24 06:20 2 MG Hydralazine HCl 20 mg Q2HPRN PRN IV 06/15/24 14:00 06/17/24 03:36 20 MG Fentanyl Citrate 250 ml @ 2.5 mls/hr Q24H IV 06/15/24 12:00 06/19/24 09:13 17.5 MLS/HR Enoxaparin Sodium 40 mg DAILY SC 06/17/24 10:00 UNV Enoxaparin Sodium 30 mg DAILY SC 06/17/24 10:00 06/19/24 09:11 30 MG Epoetin Calin-epbx 10,000 unit TUTHSA SC 06/17/24 12:00 Sodium Chloride 10 ml QSHIFT@10,22 IV 06/17/24 22:00 06/19/24 09:11 10 ML Lactulose 30 ml BID PEG 06/19/24 22:00 Examination eneral: RASS -4, afebrile, mucosae are moist Cardiovascular: Normal S1 and S2. No murmurs, gallops or rubs Respiratory: Bilateral crackles Abdomen: Soft, nontender, no organomegaly, normal bowel sounds MSK/skin: Right lower limb at the level of knees amputated, left lower limb 2+ pedal edema Neurological: Orientation cannot be assessed. Pupils are isocoric and reactive laboratory and microbiology Laboratory Tests 06/19/24 04:50 Test 06/19/24 04:50 Range/Units Serum Glucose 34 *L 74-106 mg/dL Microbiology Date/Time Source Procedure Growth Status 06/11/24 16:06 Bronchial Washings Gram Stain - Final Resulted 06/11/24 16:06 Respiratory Culture - Preliminary Acinetobacter baumannii Pseudomonas aeruginosa Resulted 06/10/24 04:52 Trachea Gram Stain - Final Resulted 06/10/24 04:52 Respiratory Culture - Preliminary Pseudomonas aeruginosa Acinetobacter baumannii MDRO Acinetobacter baumannii Resulted 06/09/24 18:54 Blood Blood Culture - Final NO GROWTH AFTER 5 DAYS OF INCUBATION. Complete 05/30/24 11:45 Pleural Fluid Gram Stain - Final Complete 05/30/24 11:45 Pleural Fluid Body Fluid Culture - Final Complete 05/28/24 22:36 Urine - Catheterized Urine Culture - Final Enterobacter cloacae Escherichia coli Enterococcus faecalis - VRE Complete Labs and/or images reviewed: Labs reviewed by me, Image(s) reviewed by me Problem List/Assessment/Plan Problem List/Assessment/Plan 68-year-old male presents with past medical history of Chronic kidney disease, CHF, COPD, dyslipidemia, hypertension, CVA, liver disease broght to the Hospital with ALOC and SOB. Admitted and intubated on 05/28/2024 and underwent tracheostomy on 06/13. NEURO: Acute metabolic encephalopathy likely due to sepsis Patient is sedated and on mechanical ventilation, RASS scores -4 History of seizure during last admission(1 month back) used Keppra for 1 week Consulted neurology, recommended Keppra EEG shows abnormal EEG recording consistent with the presence of a diffuse nonspecific encephalopathic state CARDIOVASCULAR: Hypertension Continue home medication, injection hydralazine 10 mg q.6 hours as needed PULMONARY: Acute Hypoxic Respiratory Failure likely due to pneumonia Septic shock likely due to pneumonia, improved Pneumonia likely due to Gram-positive Gram-negative Patient is sedated and on the mechanical ventilation with a setting of (VT 500, RR 18, peep 5, FiO2 30%) ABGs shows respiratory alkalosis Chest x-ray shows bilateral infiltrates duration, worsening in compared to yesterday Sputum culture from bronchoalveolar lavage from 05/24/24 shows MRSA, Enterobacter cloacae Blood culture from the 06/02/24 shows Staphylococcus epidermidis , Staph hominis Repeat culture from 06/09/2024 shows no growth Stopped in linezolid, as given for 11 days MRSA nares screening negative Continue N-acetylcysteine Breathing treatment q.[address] scan shows [id number] left pleural effusion Chest ultrasound shows left side pleural effusion Bronchoscopy performed on 06/11, there was some thin mucus secretion on bilateral side, bronchial lavage of right lower lobe and left lower lobe was performed, and the culture results shows Pseudomonas aeruginosa and Enterobacter baumanni, MDR; ID has been consulted Continue meropenem, started on 06/08 GI GI ppx: Protonix b.i.d. Hepatitis-C virus antibody positive Repeat stool occult blood test is negative CT abdominopelvic without contrast shows no evidence of intra-abdominal hemorrhage Tracheostomy is performed on 06/13 PEG tube is placed on 06/15 Bowel regimen: Lactulose 30 mL b.i.d. : FROYLAN on CKD grade 4 Nephrology on the board, hemodialysis performed today UTI, urinalysis shows UTI picture Urine culture from 05/28/2024 shows Enterobacter, E coli, Enterococcus faecalis Continue meropenem Status post limb amputation, right lower limb, above the knee likely due to PAD Decubitus ulcer There are multiple grade 3-4 sacral ulcers position changing every 2 hours and dressing HEME Severe anemia, transfused 3 pack of red blood cells current HB is 8.5 ID: Sputum culture from bronchoalveolar lavage from 05/24/24 shows MRSA, Enterobacter cloacae Blood culture from the 06/02/24 shows Staphylococcus epidermidis , Staph hominis Repeat culture from 06/09/2024 shows no growth culture results from BAL from 06/11 shows Pseudomonas aeruginosa and Enterobacter baumanni, MDR ID is on the board continue meropenem SKIN Possible keloid There is a growth on the left shoulder, per son, lesion has been present for several years Follow up on outpatient basis Metabolic: Hypernatremia, improved Hypokalemia, improved Hyperkalemia, improved Mild hyponatremia, monitoring Hypoglycemic episode, likely due to being NPO for putting tunneled catheter, resumed diet, as tunneled catheter has been placed Hypomagnesemia, supplemented LINES/DRAINS/ACCESS: ETT, intubated on 05/28/2024 and tracheostomy performed on 06/11 PEG tube placed on 06/15 IV access Right subclavian tunneled catheter, placed on 06/18 PICC line, LEFT BASILIC vein, placed on 06/17 Suprapubic catheter, changed on 06/02/2020 Dripps: Fentanyl 50 No pressor DIET: Nepro 30 mL/hour DVT prophylaxis Stopped Lovenox for the tunneled catheter placement SCDs Disposition: social media assistant consulted for transfer to the [facility] CODE STATUS: Full code Patient's status discussed with patient's son on telephone. Critical time spent more than 61 minutes, including patient care, chart review and updating the family, excluding any procedures. Case discussed with Dr. Isabel Plan discussed with: Son, Other (RN) My Orders My Orders Orders - DYLAN GOMEZ Procedure Category Date Status Time Chest Xray 1 View XY 06/19/24 Resulted 04:00 Abg W/ Co-Ox RT 06/19/24 Logged 07:15 Lactulose Oral PHA 06/19/24 In Process 22:00 Complete Blood Count LAB 06/20/24 Verified 04:00 Comprehensive LAB 06/20/24 Verified Metabolic Panel 04:00 Chest Xray 1 View XY 06/20/24 Verified 04:00 Abg W/ Co-Ox RT 06/20/24 Verified 04:00 Dietary Evaluation Review Comments: 1) If GI is assessible consider Jevity 1.2 @ 60 ml/hr x24 hrs goal rate as tolerated 2) If pt remains NPO >7 days consider TPN to meet at least 75% of estimated needs 3) Advance pt diet when medically feasible to a Cardiac/Renal Specific K2,2gmNA,low phos,60g Pro diet modified per ASE MASTER MECHANIC recommendations 4) Continue current plan of care Expected Outcomes/Goals: 1) Pt to receive adequate nutrition support 2) Pt diet to advance CC Plasma Assessment Blood Product Administration S: [id number] Date of Service: Jun 19, 2024 Billing Provider: HOLGER ISABEL MD Common Visit Codes: [id number] CARE 30-74 MIN DYLAN GOMEZ RESDIENT Jun 19, 2024 17:16 HOLGER SIABEL MD Jun 22, 2024 15:15
[2024-06-19] MEDS: LACTULOSE 20Gm/30ML SOLN PEG SCH (22:28)
[2024-06-20] VITALS (78 sets, daily range): BP systolic 96–168; BP diastolic 16–79; PULSE 89–116; RESP 9–25; TEMP 97.4–99.9; O2SAT 86–98
[2024-06-20 05:18] LABS: Basophils # (auto) 0 10 ^3/uL (0-0.2); Eosinophils # (auto) 0.4 10 ^3/uL (0-0.8); Hematocrit 22.2 % (41.0-53.0); Hemoglobin 7.4 g/dL (13.5-17.5); Lymphocytes # (auto) 0.6 10 ^3/uL (0.4-5.4); Mean Corpuscular Hemoglobin 31.5 pg (28.0-32.0); Mean Corpuscular Hgb Conc. 33.4 g/dL (32.0-36.0); Monocytes # (auto) 0.6 10 ^3/uL (0-1.3); Neutrophils # (auto) 3.2 10 ^3/uL (1.6-8.6); Red Blood Cells 2.36 10^6/uL (4.5-5.90); Red Cell Distribution Width 16.7 % (11.8-14.3); White Blood Cell 4.8 10^3/uL (4.4-10.8)
[2024-06-20 05:21] LABS: Eosinophils % (auto) 8.6 % (0.0-7.0); Lymphocytes % (auto) 11.5 % (10.0-50.0); Mean Corpuscular Volume 94.2 fL (80.0-100.0); Monocytes % (auto) 12.4 % (0.0-12.0); Neutrophils % (auto) 66.5 % (37.0-80.0); Nucleated Red Blood Cells % 0.1 %; Platelet Count (auto) 159 10^3/uL (140-450)
[2024-06-20 05:34] LABS: Alkaline Phosphatase 103 U/L (46-116); Anion Gap 9 (5-15); Aspartate Aminotransferase 18 U/L (13-40); BUN/Creatinine Ratio 5.9 (10.0-20.0); Blood Urea Nitrogen 22 mg/dL (9-23); Calcium 8.8 mg/dL (8.7-10.4); Carbon Dioxide 26 mmol/L (20-31); Chloride 102 mmol/L (98-107); Glucose 88 mg/dL (74-106); Sodium 137 mmol/L (136-145)
[2024-06-20 05:38] LABS: Alanine Aminotransferase < 9 U/L (7-40); Albumin 2.4 g/dL (3.2-4.8); Bilirubin, Total < 0.2 mg/dL (0.2-1.0); Total Protein 5.3 g/dL (5.7-8.2)
--- NOTE | 2024-06-20 05:49 | DVH ---
CHEST RADIOGRAPH Indication: Pneumonia Technique: Single frontal view of the chest was obtained COMPARISON: XY CHEST XRAY 1 VIEW on DOS: 06/19/24, XY CHEST XRAY 1 VIEW on DOS: 06/18/24, XY CHEST XRAY 1 VIEW on DOS: 06/17/24 FINDINGS: Lines and Tubes: Tracheostomy, right and left central venous catheter and left PICC in satisfactory p osition. Lungs: Multifocal airspace disease. Pleura: No effusion. No pneumothorax. Cardiomediastinal contours: Unremarkable Bones: Unremarkable IMPRESSION: Lines and tubes in satisfactory position. No significant interval change.
[2024-06-20 08:19] LABS: Magnesium 1.9 mg/dL (1.6-2.6)
[2024-06-20 08:20] LABS: Phosphorus 3.1 mg/dL (2.4-5.1)
[2024-06-20] MEDS: POTASSIUM CHL 20MEQ/100ML 100 ML IV SCH (08:26)
[2024-06-20] MEDS: LABETALOL HCL 20 MG/4 ML VL IV ONE (10:01)
[2024-06-20 10:21] LABS: Base Excess -0.4 mmol/L (-2.0-3.0)
--- NOTE | 2024-06-20 14:01 | DVHPN2 ---
Progress Note - Dictate Date Seen: Jun 20, 2024 Has the PT tested + for MRSA If YES, has PT been informed?: Yes Medical Necessity Reason Pt with a Central, PICC or Fol: Yes The following are medically ne: Central Line, Rubio Catheter Reason for rubio catheter: Strict I&O Subjective Patient was seen and evaluated at bedside. He is sedated and on mechanical ventilation. s/p tunneled dialysis catheter. He was Admitted and intubated on 05/28, extubated on 06/09 but reintubated on 06/10. Epigastric performed on 06/13, PEG tube placed on 06/15. Creatinine is elevated at 3.76. 06/20, Chest x-ray revealed: Lines and tubes in satisfactory position. No significant interval change. vital signs Vital Sign Date Time Temp Pulse Resp B/P (MAP) Pulse Ox O2 Delivery O2 Flow Rate FiO2 06/20/24 13:30 97 18 141/64 (89) 91 06/20/24 12:38 30 06/20/24 12:00 Mechanical Ventilator+ 06/20/24 12:00 98.3 98.3 Total Intake and Output 06/19/24 06/19/24 06/20/24 15:00 23:00 07:00 Intake Total 190.0 ml 740.0 ml 515.0 ml Output Total 2500 ml 175 ml Balance 190.0 ml -1760.0 ml 340.0 ml medications Current Medications Medications Dose Ordered Sig/[place] Route Start Time Stop Time Status Last Admin Dose Admin Midazolam HCl 50 ml @ 1 mls/hr Q24H IV 05/28/24 21:15 06/13/24 12:57 5 MLS/HR Albuterol 2.5 mg Q6HPRN PRN NEB 05/29/24 00:00 06/20/24 12:38 2.5 MG Enteral Nutritional Formula 1,000 ml 30ML/HR GT 05/30/24 11:00 06/18/24 20:40 1,000 ML Diagnostic Test (Pha) 1 strip Q6HR 06/02/24 12:00 06/20/24 12:01 1 STRIP Dextrose 50 ml UD PRN IV 06/02/24 10:45 06/19/24 04:55 50 ML Heparin Sodium (Porcine) 4,000 units PRN PRN IV 06/07/24 09:00 Hydralazine HCl 100 mg Q8HR PO 06/07/24 14:00 06/20/24 05:35 100 MG Acetylcysteine 100 mg Q6HR NEB 06/09/24 18:00 06/20/24 12:38 100 MG Amlodipine Besylate 10 mg DAILY PO 06/10/24 10:00 06/20/24 09:43 10 MG Enoxaparin Sodium 40 mg DAILY SC 06/10/24 10:00 UNV Hydralazine HCl 20 mg Q2HPRN PRN IV 06/15/24 14:00 06/20/24 09:03 20 MG Fentanyl Citrate 250 ml @ 2.5 mls/hr Q24H IV 06/15/24 12:00 06/20/24 12:02 20 MLS/HR Enoxaparin Sodium 40 mg DAILY SC 06/17/24 10:00 UNV Enoxaparin Sodium 30 mg DAILY SC 06/17/24 10:00 06/20/24 09:43 30 MG Epoetin Calin-epbx 10,000 unit TUTHSA SC 06/17/24 12:00 06/19/24 17:38 10,000 UNIT Sodium Chloride 10 ml QSHIFT@10,22 IV 06/17/24 22:00 06/20/24 09:41 10 ML Lactulose 30 ml BID PEG 06/19/24 22:00 06/20/24 09:41 30 ML Potassium Chloride 100 ml @ 50 mls/hr Q2H IV 06/20/24 08:00 06/20/24 13:59 06/20/24 10:40 50 MLS/HR Levetiracetam 500 mg BID PO 06/20/24 22:00 Pantoprazole Sodium 40 mg DAILY@0600 PO 06/21/24 10:00 Acetaminophen 650 mg Q6HP PRN GT 06/20/24 11:30 objective General: Patient is in mild distress HEENT: Normocephalic atraumatic, has trach Neck: Cervical and supraclavicular nodes normal without enlargement, trachea is midline, thyroid gland is normal without masses. Pulmonary: Clear to auscultation and percussion bilaterally. Cardiac: heart sound normal Abdomen: Soft, nontender, nondistended, bowel sounds present all 4 quadrants, no guarding, no rigidity, no organomegaly. Extremities: No cyanosis, clubbing, right AKA skin decub ulcers Neuro: Sedated laboratory and microbiology Laboratory Tests 06/20/24 04:43 Test 06/20/24 04:43 Range/Units Serum Glucose 88 74-106 mg/dL Assessment/Plan Patient is a 69-year-old male presents to the clinic with: MDRO Pseudomonas in sputum MDRO Acinetobacter baumannii in sputum MRSA Pneumonia Acute respiratory failure, s/p trach on MV Acute on chronic renal failure Coagulase-negative Staph bacteremia Acute metabolic encephalopathy Decubitus ulcer Elevated troponin Anemia Recommendations: Overall, patient is on minimal vent setting, is on trach He has received more than adequate course of antibiotics for MRSA pneumonia, the chest x-ray finding could be secondary to MRSA pneumonia versus fluid His most recent bronchial cultures is growing Pseudomonas and Acinetobacter baumannii which are both MDRO and waiting for confirmation from [facility] lab Overall, he seems clinically stable from respiratory standpoint with minimal vent setting, mostly afebrile and has normal WBC count and minimal ET tube secretions Patient is currently on Meropenem however this does not cover both of these MDR. Recommend to stop meropenem. Considering overall clinical picture it seems like the MDRO is colonization hence recommend holding off on treatment. However if he spikes continuous fever,or has increased workup breathing or worsening of hypoxia denude consider him starting on Ricarbio OR Fetroja + Tigecycline to cover these s/p tunneled cath placement.on HD : nephrology n board Reviewed all the cultures and the blood culture seems to be a contamination however he has also received course of vancomycin followed by linezolid Patient has history of recurrent hospital admissions with progressive decline in physical condition recommend wound care for decub Thank you for consult and for giving an opportunity to take care of this patient. Dietary Evaluation Review Comments: 1) If GI is assessible consider Jevity 1.2 @ 60 ml/hr x24 hrs goal rate as tolerated 2) If pt remains NPO >7 days consider TPN to meet at least 75% of estimated needs 3) Advance pt diet when medically feasible to a Cardiac/Renal Specific K2,2gmNA,low phos,60g Pro diet modified per CAB WORKER recommendations 4) Continue current plan of care Expected Outcomes/Goals: 1) Pt to receive adequate nutrition support 2) Pt diet to advance Plan discussed with: Other CC Plasma Assessment Blood Product Administration S: [id number] TAPAN ORANTES MD Jun 20, 2024 14:01
--- NOTE | 2024-06-20 16:06 | DVHPN2 ---
Progress Note - Dictate Date Seen: Jun 20, 2024 Has the PT tested + for MRSA If YES, has PT been informed?: Yes Medical Necessity Reason Pt with a Central, PICC or Fol: Yes The following are medically ne: Central Line, Rubio Catheter Reason for rubio catheter: Strict I&O Subjective Somnolent vital signs Vital Sign Date Time Temp Pulse Resp B/P (MAP) Pulse Ox O2 Delivery O2 Flow Rate FiO2 06/20/24 14:46 98 18 142/75 (97) 93 30 06/20/24 14:00 Mechanical Ventilator+ 06/20/24 12:00 98.3 98.3 Total Intake and Output 06/19/24 06/19/24 06/20/24 15:00 23:00 07:00 Intake Total 190.0 ml 740.0 ml 515.0 ml Output Total 2500 ml 175 ml Balance 190.0 ml -1760.0 ml 340.0 ml medications Current Medications Medications Dose Ordered Sig/[place] Route Start Time Stop Time Status Last Admin Dose Admin Midazolam HCl 50 ml @ 1 mls/hr Q24H IV 05/28/24 21:15 06/13/24 12:57 5 MLS/HR Albuterol 2.5 mg Q6HPRN PRN NEB 05/29/24 00:00 06/20/24 12:38 2.5 MG Enteral Nutritional Formula 1,000 ml 30ML/HR GT 05/30/24 11:00 06/18/24 20:40 1,000 ML Diagnostic Test (Pha) 1 strip Q6HR 06/02/24 12:00 06/20/24 12:01 1 STRIP Dextrose 50 ml UD PRN IV 06/02/24 10:45 06/19/24 04:55 50 ML Heparin Sodium (Porcine) 4,000 units PRN PRN IV 06/07/24 09:00 Hydralazine HCl 100 mg Q8HR PO 06/07/24 14:00 06/20/24 14:24 100 MG Acetylcysteine 100 mg Q6HR NEB 06/09/24 18:00 06/20/24 12:38 100 MG Amlodipine Besylate 10 mg DAILY PO 06/10/24 10:00 06/20/24 09:43 10 MG Enoxaparin Sodium 40 mg DAILY SC 06/10/24 10:00 UNV Hydralazine HCl 20 mg Q2HPRN PRN IV 06/15/24 14:00 06/20/24 09:03 20 MG Fentanyl Citrate 250 ml @ 2.5 mls/hr Q24H IV 06/15/24 12:00 06/20/24 12:02 20 MLS/HR Enoxaparin Sodium 40 mg DAILY SC 06/17/24 10:00 UNV Enoxaparin Sodium 30 mg DAILY SC 06/17/24 10:00 06/20/24 09:43 30 MG Epoetin Calin-epbx 10,000 unit TUTHSA SC 06/17/24 12:00 06/19/24 17:38 10,000 UNIT Sodium Chloride 10 ml QSHIFT@, IV 06/17/24 22:00 06/20/24 09:41 10 ML Lactulose 30 ml BID PEG 06/19/24 22:00 06/20/24 09:41 30 ML Levetiracetam 500 mg BID PO 06/20/24 22:00 Pantoprazole Sodium 40 mg DAILY@0600 PO 06/21/24 10:00 Acetaminophen 650 mg Q6HP PRN GT 06/20/24 11:30 objective Gen: nad, heent: nc/at, mmm lungs: Occasional coarse breath sounds cvs: no rub ext: no edema laboratory and microbiology Laboratory Tests 06/20/24 04:43 Test 06/20/24 04:43 Range/Units Serum Glucose 88 74-106 mg/dL Assessment/Plan Acute kidney injury on chronic kidney disease stage 4 -> likely septic ATN needing HD Acute respiratory failure on vent Anemia suspected due to low blood loss s/p PRBC Hypernatremia Hypokalemia Metabolic acidosis Chronic urinary retention sepsis due to bacteremia recs - we will continue to evaluate daily for TECHNICAL SERVICES ANALYST needs - metabolic parameters acceptable. Dietary Evaluation Review Comments: 1) If GI is assessible consider Jevity 1.2 @ 60 ml/hr x24 hrs goal rate as tolerated 2) If pt remains NPO >7 days consider TPN to meet at least 75% of estimated needs 3) Advance pt diet when medically feasible to a Cardiac/Renal Specific K2,2gmNA,low phos,60g Pro diet modified per FENCE BUILDER recommendations 4) Continue current plan of care Expected Outcomes/Goals: 1) Pt to receive adequate nutrition support 2) Pt diet to advance Plan discussed with: Other CC Plasma Assessment Blood Product Administration S: [id number] SHANEL HOOK MD Jun 20, 2024 16:06
--- NOTE | 2024-06-20 20:33 | DVHPNRES ---
Progress Note Date Seen: Jun 20, 2024 Resident Creating Document: DYLAN GOMEZ RESDIENT Has the PT tested + for MRSA If YES, has PT been informed?: Yes Medical Necessity Reason Pt with a Central, PICC or Fol: Yes The following are medically ne: Central Line, Rubio Catheter Reason for rubio catheter: Strict I&O Subjective Review of Systems This is a 65-year-old male with past medical history of CHF, CKD, COPD, dyslipidemia, hypertension, CVA brought to the hospital with shortness of breaths and at the level of consciousness. Admitted and intubated on 05/28, extubated on 06/09 but reintubated on 06/10. Epigastric performed on 06/13, PEG tube placed on 06/15. Today, patient seen and examined at the bedside. Patient is sedated and on on mechanical ventilation. Review of systems could not obtain. Chest x-ray shows bilateral infiltration, she was worsening incompetent yesterday. Patient reports: No new complaints Objective vital signs Vital Sign Date Time Temp Pulse Resp B/P (MAP) Pulse Ox O2 Delivery O2 Flow Rate FiO2 06/20/24 18:46 101 18 141/67 (91) 94 06/20/24 18:00 30 06/20/24 18:00 Mechanical Ventilator+ 06/20/24 16:00 98.5 98.5 Total Intake and Output 06/19/24 06/19/24 06/20/24 15:00 23:00 07:00 Intake Total 190.0 ml 740.0 ml 515.0 ml Output Total 2500 ml 175 ml Balance 190.0 ml -1760.0 ml 340.0 ml medications Current Medications Medications Dose Ordered Sig/[place] Route Start Time Stop Time Status Last Admin Dose Admin Midazolam HCl 50 ml @ 1 mls/hr Q24H IV 05/28/24 21:15 06/13/24 12:57 5 MLS/HR Albuterol 2.5 mg Q6HPRN PRN NEB 05/29/24 00:00 06/20/24 18:43 2.5 MG Enteral Nutritional Formula 1,000 ml 30ML/HR GT 05/30/24 11:00 06/18/24 20:40 1,000 ML Diagnostic Test (Pha) 1 strip Q6HR 06/02/24 12:00 06/20/24 18:51 1 STRIP Dextrose 50 ml UD PRN IV 06/02/24 10:45 06/19/24 04:55 50 ML Heparin Sodium (Porcine) 4,000 units PRN PRN IV 06/07/24 09:00 Hydralazine HCl 100 mg Q8HR PO 06/07/24 14:00 06/20/24 14:24 100 MG Acetylcysteine 100 mg Q6HR NEB 06/09/24 18:00 06/20/24 18:43 100 MG Amlodipine Besylate 10 mg DAILY PO 06/10/24 10:00 06/20/24 09:43 10 MG Enoxaparin Sodium 40 mg DAILY SC 06/10/24 10:00 UNV Hydralazine HCl 20 mg Q2HPRN PRN IV 06/15/24 14:00 06/20/24 09:03 20 MG Fentanyl Citrate 250 ml @ 2.5 mls/hr Q24H IV 06/15/24 12:00 06/20/24 12:02 20 MLS/HR Enoxaparin Sodium 40 mg DAILY SC 06/17/24 10:00 UNV Enoxaparin Sodium 30 mg DAILY SC 06/17/24 10:00 06/20/24 09:43 30 MG Epoetin Calin-epbx 10,000 unit TUTHSA SC 06/17/24 12:00 06/19/24 17:38 10,000 UNIT Sodium Chloride 10 ml QSHIFT@,22 IV 06/17/24 22:00 06/20/24 09:41 10 ML Lactulose 30 ml BID PEG 06/19/24 22:00 06/20/24 09:41 30 ML Levetiracetam 500 mg BID PO 06/20/24 22:00 Pantoprazole Sodium 40 mg DAILY@0600 PO 06/21/24 10:00 Acetaminophen 650 mg Q6HP PRN GT 06/20/24 11:30 Examination eneral: RASS -4, afebrile, mucosae are moist Cardiovascular: Normal S1 and S2. No murmurs, gallops or rubs Respiratory: Bilateral crackles Abdomen: Soft, nontender, no organomegaly, normal bowel sounds MSK/skin: Right lower limb at the level of knees amputated, left lower limb 2+ pedal edema Neurological: Orientation cannot be assessed. Pupils are isocoric and reactive laboratory and microbiology Laboratory Tests 06/20/24 04:43 Test 06/20/24 04:43 Range/Units Serum Glucose 88 74-106 mg/dL Microbiology Date/Time Source Procedure Growth Status 06/11/24 16:06 Bronchial Washings Gram Stain - Final Complete 06/11/24 16:06 Respiratory Culture - Final Acinetobacter baumannii Pseudomonas aeruginosa Complete 06/10/24 04:52 Trachea Gram Stain - Final Resulted 06/10/24 04:52 Respiratory Culture - Preliminary Pseudomonas aeruginosa Acinetobacter baumannii MDRO Acinetobacter baumannii Resulted 06/09/24 18:54 Blood Blood Culture - Final NO GROWTH AFTER 5 DAYS OF INCUBATION. Complete 05/30/24 11:45 Pleural Fluid Gram Stain - Final Complete 05/30/24 11:45 Pleural Fluid Body Fluid Culture - Final Complete 05/28/24 22:36 Urine - Catheterized Urine Culture - Final Enterobacter cloacae Escherichia coli Enterococcus faecalis - VRE Complete Problem List/Assessment/Plan Problem List/Assessment/Plan 68-year-old male presents with past medical history of Chronic kidney disease, CHF, COPD, dyslipidemia, hypertension, CVA, liver disease broght to the Hospital with ALOC and SOB. Admitted and intubated on 05/28/2024 and underwent tracheostomy on 06/13. NEURO: Acute metabolic encephalopathy likely due to sepsis Patient is sedated and on mechanical ventilation, RASS scores -4 History of seizure during last admission(1 month back) used Keppra for 1 week Consulted neurology, recommended Keppra, changed IV to oral form EEG shows abnormal EEG recording consistent with the presence of a diffuse nonspecific encephalopathic state CARDIOVASCULAR: Hypertension Continue home medication, injection hydralazine 10 mg q.6 hours as needed PULMONARY: Acute Hypoxic Respiratory Failure likely due to pneumonia Septic shock likely due to pneumonia, improved Pneumonia likely due to Gram-positive Gram-negative Patient is sedated and on the mechanical ventilation with a setting of (VT 500, RR 18, peep 5, FiO2 30%) ABGs shows respiratory alkalosis Chest x-ray shows bilateral infiltrates duration, worsening in compared to yesterday Sputum culture from bronchoalveolar lavage from 05/24/24 shows MRSA, Enterobacter cloacae Blood culture from the 06/02/24 shows Staphylococcus epidermidis , Staph hominis Repeat culture from 06/09/2024 shows no growth Stopped in linezolid, as given for 11 days MRSA nares screening negative Continue N-acetylcysteine Breathing treatment q.[address] scan shows [id number] left pleural effusion Chest ultrasound shows left side pleural effusion Bronchoscopy performed on 06/11, there was some thin mucus secretion on bilateral side, bronchial lavage of right lower lobe and left lower lobe was performed, and the culture results shows Pseudomonas aeruginosa and Enterobacter baumanni, MDR; ID has been consulted Continue meropenem, started on 06/08 GI GI ppx: Protonix b.i.d. Hepatitis-C virus antibody positive Repeat stool occult blood test is negative CT abdominopelvic without contrast shows no evidence of intra-abdominal hemorrhage Tracheostomy is performed on 06/13 PEG tube is placed on 06/15 Bowel regimen: Lactulose 30 mL b.i.d. : FROYLAN on CKD grade 4 Nephrology on the board, hemodialysis performed yesterday Discontinued Bumex UTI, urinalysis shows UTI picture Urine culture from 05/28/2024 shows Enterobacter, E coli, Enterococcus faecalis Status post limb amputation, right lower limb, above the knee likely due to PAD Decubitus ulcer There are multiple grade 3-4 sacral ulcers position changing every 2 hours and dressing HEME Severe anemia, transfused 3 pack of red blood cells current HB is 8.5 ID: Sputum culture from bronchoalveolar lavage from 05/24/24 shows MRSA, Enterobacter cloacae Blood culture from the 06/02/24 shows Staphylococcus epidermidis , Staph hominis Repeat culture from 06/09/2024 shows no growth culture results from BAL from 06/11 shows Pseudomonas aeruginosa and Enterobacter baumanni, MDR ID is on the board, recommended to stop meropenem, as it does not cover these MDR and considering overall clinical picture it seems like the MDRO is colonization, however if he spikes continuous fever, or has increased workup breathing or worsening of hypoxia denude consider him starting on Ricarbio OR Fetroja + Tigecycline to cover these MDRO Discontinued meropenem, used for 12 days Mild fever, Tylenol as needed SKIN Possible keloid There is a growth on the left shoulder, per son, lesion has been present for several years Follow up on outpatient basis Metabolic: Hypernatremia, improved Hypokalemia, supplemented Hyperkalemia, improved Mild hyponatremia, monitoring Hypoglycemic episodes, likely due to being NPO for putting tunneled catheter, resumed diet, as tunneled catheter has been placed Hypomagnesemia, supplemented LINES/DRAINS/ACCESS: ETT, intubated on 05/28/2024 and tracheostomy performed on 06/11, PEG tube placed on 06/15 IV access Right subclavian tunneled catheter, placed on 06/18, and removed left internal jugular catheter on 06/20 PICC line, LEFT BASILIC vein, placed on 06/17 Suprapubic catheter, changed on 06/02/2020 Dripps: Fentanyl 200 No pressor DIET: Nepro 30 mL/hour DVT prophylaxis Lovenox 30 mg daily Disposition: web content & social media manager consulted for transfer to the [facility] CODE STATUS: Full code Patient's status discussed with patient's son on telephone. Critical time spent more than 81 minutes, including patient care, chart review and updating the family, excluding any procedures. Case discussed with Dr. Ashby Plan discussed with: Patient, Son, Other (RN) My Orders My Orders Orders - DYLAN GOMEZ RESDIENT Procedure Category Date Status Time Abg W/ Co-Ox RT 06/20/24 Logged 10:12 Acetaminophen PHA 06/20/24 In Process Solution Oral 11:30 Comprehensive LAB 06/21/24 Verified Metabolic Panel 04:00 Complete Blood Count LAB 06/21/24 Verified 04:00 Chest Xray 1 View XY 06/21/24 Logged 04:00 Abg W/ Co-Ox RT 06/21/24 Logged 04:00 Dietary Evaluation Review Comments: 1) If GI is assessible consider Jevity 1.2 @ 60 ml/hr x24 hrs goal rate as tolerated 2) If pt remains NPO >7 days consider TPN to meet at least 75% of estimated needs 3) Advance pt diet when medically feasible to a Cardiac/Renal Specific K2,2gmNA,low phos,60g Pro diet modified per MOLDING SUPERVISOR recommendations 4) Continue current plan of care Expected Outcomes/Goals: 1) Pt to receive adequate nutrition support 2) Pt diet to advance CC Plasma Assessment Blood Product Administration S: [id number] Date of Service: Jun 20, 2024 Billing Provider: MARK ASHBY MD Common Visit Codes: [id number] CARE 30-74 MIN DYLAN GOMEZ RESDIENT Jun 20, 2024 20:32 MARK ASHBY MD Jun 27, 2024 14:41
[2024-06-20] MEDS: ETOMIDATE (2MG/ML) 20ML VIAL IV ONE (21:03)
[2024-06-20] MEDS: levETIRAcetam 500 MG TAB PO SCH (21:46)
[2024-06-21] VITALS (77 sets, daily range): BP systolic 95–163; BP diastolic 41–92; PULSE 63–105; RESP 14–21; TEMP 96.1–100.1; O2SAT 90–98
--- NOTE | 2024-06-21 05:50 | DVH ---
CHEST RADIOGRAPH Indication: Pneumonia Technique: Single frontal view of the chest was obtained Comparison: XY CHEST XRAY 1 VIEW on DOS: 06/20/24, XY CHEST XRAY 1 VIEW on DOS: 06/19/24, XY CHEST XRAY 1 VIEW on DOS: 06/18/24 IMPRESSION: Tracheostomy is not included in this examination. Right dialysis catheter tip in the region of the s uperior vena cava. Low lung volumes. The heart appears prominent size. There has oval fall been impr ovement in pulmonary aeration with persistent moderate pulmonary vascular congestion and small left p leural effusion.
[2024-06-21 06:02] LABS: Eosinophils # (auto) 0.5 10 ^3/uL (0-0.8); Mean Corpuscular Hemoglobin 31.8 pg (28.0-32.0); Monocytes # (auto) 0.5 10 ^3/uL (0-1.3); Neutrophils # (auto) 2.3 10 ^3/uL (1.6-8.6)
[2024-06-21 06:04] LABS: Basophils # (auto) 0 10 ^3/uL (0-0.2); Basophils % (auto) 1.1 % (0.0-2.0); Eosinophils % (auto) 12.3 % (0.0-7.0); Hematocrit 22.2 % (41.0-53.0); Hemoglobin 7.1 g/dL (13.5-17.5); Lymphocytes # (auto) 0.8 10 ^3/uL (0.4-5.4); Lymphocytes % (auto) 18.7 % (10.0-50.0); Mean Corpuscular Volume 99.5 fL (80.0-100.0); Neutrophils % (auto) 55.9 % (37.0-80.0); Nucleated Red Blood Cells % 0.3 %; Platelet Count (auto) 168 10^3/uL (140-450); Red Blood Cells 2.23 10^6/uL (4.5-5.90); Red Cell Distribution Width 17.3 % (11.8-14.3); White Blood Cell 4.1 10^3/uL (4.4-10.8)
[2024-06-21 06:14] LABS: Alkaline Phosphatase 93 U/L (46-116); Anion Gap 9 (5-15); Aspartate Aminotransferase 17 U/L (13-40); BUN/Creatinine Ratio 6.2 (10.0-20.0); Calcium 8.9 mg/dL (8.7-10.4); Carbon Dioxide 25 mmol/L (20-31); Chloride 104 mmol/L (98-107); Sodium 138 mmol/L (136-145)
[2024-06-21 06:42] LABS: Alanine Aminotransferase < 9 U/L (7-40); Albumin 2.1 g/dL (3.2-4.8); Bilirubin, Total < 0.2 mg/dL (0.2-1.0); Blood Urea Nitrogen 25 mg/dL (9-23); Glucose 73 mg/dL (74-106); Potassium 3.4 mmol/L (3.5-5.1); Total Protein 5.1 g/dL (5.7-8.2)
[2024-06-21] MEDS: PANTOPRAZOLE 40 MG TAB PO SCH (08:47)
[2024-06-21] MEDS: POTASSIUM CHL 20MEQ/100ML 100 ML IV SCH (11:43)
--- NOTE | 2024-06-21 12:51 | DVHPN2 ---
Progress Note - Dictate Date Seen: Jun 21, 2024 Has the PT tested + for MRSA If YES, has PT been informed?: Yes Medical Necessity Reason Pt with a Central, PICC or Fol: Yes The following are medically ne: Central Line, Rubio Catheter Reason for rubio catheter: Strict I&O Subjective clinically unchanged vital signs Vital Sign Date Time Temp Pulse Resp B/P (MAP) Pulse Ox O2 Delivery O2 Flow Rate FiO2 06/21/24 12:00 99.8 102 18 132/58 (82) 95 99.8 06/21/24 11:34 Mechanical Ventilator+ 30 30 Total Intake and Output 06/20/24 06/20/24 06/21/24 15:00 23:00 07:00 Intake Total 457.5 ml 687 ml 440 ml Output Total 435 ml 410 ml Balance 457.5 ml 252 ml 30 ml medications Current Medications Medications Dose Ordered Sig/[place] Route Start Time Stop Time Status Last Admin Dose Admin Midazolam HCl 50 ml @ 1 mls/hr Q24H IV 05/28/24 21:15 06/13/24 12:57 5 MLS/HR Albuterol 2.5 mg Q6HPRN PRN NEB 05/29/24 00:00 06/21/24 11:19 2.5 MG Enteral Nutritional Formula 1,000 ml 30ML/HR GT 05/30/24 11:00 06/18/24 20:40 1,000 ML Diagnostic Test (Pha) 1 strip Q6HR 06/02/24 12:00 06/21/24 11:17 1 STRIP Dextrose 50 ml UD PRN IV 06/02/24 10:45 06/19/24 04:55 50 ML Heparin Sodium (Porcine) 4,000 units PRN PRN IV 06/07/24 09:00 Hydralazine HCl 100 mg Q8HR PO 06/07/24 14:00 06/21/24 05:42 100 MG Acetylcysteine 100 mg Q6HR NEB 06/09/24 18:00 06/21/24 11:19 100 MG Amlodipine Besylate 10 mg DAILY PO 06/10/24 10:00 06/21/24 08:46 10 MG Enoxaparin Sodium 40 mg DAILY SC 06/10/24 10:00 UNV Hydralazine HCl 20 mg Q2HPRN PRN IV 06/15/24 14:00 06/20/24 09:03 20 MG Fentanyl Citrate 250 ml @ 2.5 mls/hr Q24H IV 06/15/24 12:00 06/21/24 08:49 20 MLS/HR Enoxaparin Sodium 40 mg DAILY SC 06/17/24 10:00 UNV Enoxaparin Sodium 30 mg DAILY SC 06/17/24 10:00 06/21/24 08:47 30 MG Epoetin Calin-epbx 10,000 unit TUTHSA SC 06/17/24 12:00 06/21/24 08:48 10,000 UNIT Sodium Chloride 10 ml QSHIFT@10,22 IV 06/17/24 22:00 06/21/24 07:21 10 ML Lactulose 30 ml BID PEG 06/19/24 22:00 06/20/24 21:46 30 ML Levetiracetam 500 mg BID PO 06/20/24 22:00 06/21/24 08:47 500 MG Pantoprazole Sodium 40 mg DAILY@0600 PO 06/21/24 10:00 06/21/24 08:47 40 MG Acetaminophen 650 mg Q6HP PRN GT 06/20/24 11:30 Potassium Chloride 100 ml @ 50 mls/hr Q2H IV 06/21/24 11:15 06/21/24 15:14 06/21/24 12:37 50 MLS/HR objective Gen: nad, heent: nc/at, mmm lungs: Occasional coarse breath sounds cvs: no rub ext: no edema laboratory and microbiology Laboratory Tests 06/21/24 05:09 Test 06/21/24 05:09 Range/Units Serum Glucose 73 L 74-106 mg/dL Assessment/Plan Acute kidney injury on chronic kidney disease stage 4 -> likely septic ATN needing HD Acute respiratory failure on vent Anemia suspected due to low blood loss s/p PRBC Hypernatremia Hypokalemia Metabolic acidosis Chronic urinary retention sepsis due to bacteremia recs - metabolic parameters acceptable - Tentatively for dialysis 06/22 - Transfer to long-term acute care facility pending Dietary Evaluation Review Comments: 1) If GI is assessible consider Jevity 1.2 @ 60 ml/hr x24 hrs goal rate as tolerated 2) If pt remains NPO >7 days consider TPN to meet at least 75% of estimated needs 3) Advance pt diet when medically feasible to a Cardiac/Renal Specific K2,2gmNA,low phos,60g Pro diet modified per AIRCRAFT QUALITY CONTROL INSPECTOR recommendations 4) Continue current plan of care Expected Outcomes/Goals: 1) Pt to receive adequate nutrition support 2) Pt diet to advance Plan discussed with: Other CC Plasma Assessment Blood Product Administration S: [id number] SHANEL HOOK MD Jun 21, 2024 12:51
--- NOTE | 2024-06-21 16:01 | DVHPN2 ---
Progress Note - Dictate Date Seen: Jun 21, 2024 Has the PT tested + for MRSA If YES, has PT been informed?: Yes Medical Necessity Reason Pt with a Central, PICC or Fol: Yes The following are medically ne: Central Line, Rubio Catheter Reason for rubio catheter: Strict I&O Subjective Patient is sedated and on mechanical ventilation. No new acute complaints noted at this time. s/p tunneled dialysis catheter. He was Admitted and intubated on 05/28, extubated on 06/09 but reintubated on 06/10. trach performed on 06/13, PEG tube placed on 06/15. Creatinine is elevated at 4.02. 06/21, Chest x-ray revealed: Tracheostomy is not included in this examination. Right dialysis catheter tip in the region of the superior vena cava. Low lung volumes. The heart appears prominent size. There has oval fall been improvement in pulmonary aeration with persistent moderate pulmonary vascular congestion and small left pleural effusion. vital signs Vital Sign Date Time Temp Pulse Resp B/P (MAP) Pulse Ox O2 Delivery O2 Flow Rate FiO2 06/21/24 15:31 96 06/21/24 15:31 30 06/21/24 15:31 18 96 Mechanical Ventilator+ 06/21/24 15:14 138/59 (85) 06/21/24 12:00 99.8 99.8 Total Intake and Output 06/20/24 06/20/24 06/21/24 15:00 23:00 07:00 Intake Total 457.5 ml 687 ml 440 ml Output Total 435 ml 410 ml Balance 457.5 ml 252 ml 30 ml medications Current Medications Medications Dose Ordered Sig/[place] Route Start Time Stop Time Status Last Admin Dose Admin Midazolam HCl 50 ml @ 1 mls/hr Q24H IV 05/28/24 21:15 06/13/24 12:57 5 MLS/HR Albuterol 2.5 mg Q6HPRN PRN NEB 05/29/24 00:00 06/21/24 11:19 2.5 MG Enteral Nutritional Formula 1,000 ml 30ML/HR GT 05/30/24 11:00 06/18/24 20:40 1,000 ML Diagnostic Test (Pha) 1 strip Q6HR 06/02/24 12:00 06/21/24 11:17 1 STRIP Dextrose 50 ml UD PRN IV 06/02/24 10:45 06/19/24 04:55 50 ML Heparin Sodium (Porcine) 4,000 units PRN PRN IV 06/07/24 09:00 Hydralazine HCl 100 mg Q8HR PO 06/07/24 14:00 06/21/24 14:00 100 MG Acetylcysteine 100 mg Q6HR NEB 06/09/24 18:00 06/21/24 11:19 100 MG Amlodipine Besylate 10 mg DAILY PO 06/10/24 10:00 06/21/24 08:46 10 MG Enoxaparin Sodium 40 mg DAILY SC 06/10/24 10:00 UNV Hydralazine HCl 20 mg Q2HPRN PRN IV 06/15/24 14:00 06/20/24 09:03 20 MG Fentanyl Citrate 250 ml @ 2.5 mls/hr Q24H IV 06/15/24 12:00 06/21/24 08:49 20 MLS/HR Enoxaparin Sodium 40 mg DAILY SC 06/17/24 10:00 UNV Enoxaparin Sodium 30 mg DAILY SC 06/17/24 10:00 06/21/24 08:47 30 MG Epoetin Calin-epbx 10,000 unit TUTHSA SC 06/17/24 12:00 06/21/24 08:48 10,000 UNIT Sodium Chloride 10 ml QSHIFT@10,22 IV 06/17/24 22:00 06/21/24 07:21 10 ML Lactulose 30 ml BID PEG 06/19/24 22:00 06/20/24 21:46 30 ML Levetiracetam 500 mg BID PO 06/20/24 22:00 06/21/24 08:47 500 MG Pantoprazole Sodium 40 mg DAILY@0600 PO 06/21/24 10:00 06/21/24 08:47 40 MG Acetaminophen 650 mg Q6HP PRN GT 06/20/24 11:30 objective General: Patient is in mild distress HEENT: Normocephalic atraumatic, has trach Neck: Cervical and supraclavicular nodes normal without enlargement, trachea is midline, thyroid gland is normal without masses. Pulmonary: Clear to auscultation and percussion bilaterally. Cardiac: heart sound normal Abdomen: Soft, nontender, nondistended, bowel sounds present all 4 quadrants, no guarding, no rigidity, no organomegaly. Extremities: No cyanosis, clubbing, right AKA skin decub ulcers Neuro: Sedated laboratory and microbiology Laboratory Tests 06/21/24 05:09 Test 06/21/24 05:09 Range/Units Serum Glucose 73 L 74-106 mg/dL Assessment/Plan Patient is a 69-year-old male presents to the clinic with: MDRO Pseudomonas in sputum MDRO Acinetobacter baumannii in sputum MRSA Pneumonia Acute respiratory failure, s/p trach on MV Acute on chronic renal failure Coagulase-negative Staph bacteremia Acute metabolic encephalopathy Decubitus ulcer Elevated troponin Anemia Recommendations: Overall, patient is on minimal vent setting, is on trach He has received more than adequate course of antibiotics for MRSA pneumonia, the chest x-ray finding could be secondary to MRSA pneumonia versus fluid His most recent bronchial cultures is growing Pseudomonas and Acinetobacter baumannii which are both MDRO and waiting for confirmation from [facility] lab Overall, he seems clinically stable from respiratory standpoint with minimal vent setting, mostly afebrile and has normal WBC count and minimal ET tube secretions Patient is currently on Meropenem however this does not cover both of these MDR. Recommend to stop Meropenem. Considering overall clinical picture it seems like the MDRO is colonization hence recommend holding off on treatment. However if he spikes continuous fever,or has increased workup breathing or worsening of hypoxia denude consider him starting on Ricarbio OR Fetroja + Tigecycline to cover these s/p tunneled cath placement.on HD Reviewed all the cultures and the blood culture seems to be a contamination however he has also received course of vancomycin followed by linezolid Patient has history of recurrent hospital admissions with progressive decline in physical condition recommend wound care for decub Thank you for consult and for giving an opportunity to take care of this patient. Dietary Evaluation Review Comments: 1) If GI is assessible consider Jevity 1.2 @ 60 ml/hr x24 hrs goal rate as tolerated 2) If pt remains NPO >7 days consider TPN to meet at least 75% of estimated needs 3) Advance pt diet when medically feasible to a Cardiac/Renal Specific K2,2gmNA,low phos,60g Pro diet modified per LOCATOR recommendations 4) Continue current plan of care Expected Outcomes/Goals: 1) Pt to receive adequate nutrition support 2) Pt diet to advance Plan discussed with: Other CC Plasma Assessment Blood Product Administration S: [id number] TAPAN ORANTES MD Jun 21, 2024 16:01
--- NOTE | 2024-06-21 16:05 | DVHPN2 ---
Subjective This is a 65-year-old male with past medical history of CHF, CKD, COPD, dyslipidemia, hypertension, CVA brought to the hospital with shortness of breaths and at the level of consciousness. Admitted and intubated on 05/28, extubated on 06/09 but reintubated on 06/10. Epigastric performed on 06/13, PEG tube placed on 06/15. Today, patient seen and examined at the bedside. Patient is sedated and on on mechanical ventilation. Review of systems could not obtain. Chest x-ray shows bilateral infiltration, she was worsening incompetent yesterday. Reviewed: Care Plan, H&P, Labs, Medications, Previous Orders, Radiology, Other (Consultants) Changes from previous H/P or p: No Changes General: Per HPI Objective Vitals Vital Signs Date Time Temp Pulse Resp B/P (MAP) Pulse Ox O2 Delivery O2 Flow Rate FiO2 06/21/24 15:31 96 06/21/24 15:31 30 06/21/24 15:31 18 96 Mechanical Ventilator+ 06/21/24 15:14 138/59 (85) 06/21/24 12:00 99.8 99.8 Intake/Output Intake and Output 06/21/24 05:00 Intake Total 1624.5 ml Output Total 610 ml Balance 1014.5 ml Intake Oral 150 ml IV Total 772.5 ml Tube Feeding 702 ml Output Urine Total 135 ml Stool Total 475 ml General Appearance: Other (Sedated) HEENT: Atraumatic, PERRLA Lungs: Other (Few crackles bilateral lungs) Cardiovascular: Regular rate Abdomen: Normal bowel sounds, Soft Musculoskeletal: Other (Sedated) Extremities: Other (Edema left lower extremity. Right AKA) Medications Current Medications Medications Dose Ordered Sig/[place] Route Start Time Stop Time Status Last Admin Dose Admin Midazolam HCl 50 ml @ 1 mls/hr Q24H IV 05/28/24 21:15 06/13/24 12:57 5 MLS/HR Albuterol 2.5 mg Q6HPRN PRN NEB 05/29/24 00:00 06/21/24 11:19 2.5 MG Enteral Nutritional Formula 1,000 ml 30ML/HR GT 05/30/24 11:00 06/18/24 20:40 1,000 ML Diagnostic Test (Pha) 1 strip Q6HR 06/02/24 12:00 06/21/24 11:17 1 STRIP Dextrose 50 ml UD PRN IV 06/02/24 10:45 06/19/24 04:55 50 ML Heparin Sodium (Porcine) 4,000 units PRN PRN IV 06/07/24 09:00 Hydralazine HCl 100 mg Q8HR PO 06/07/24 14:00 06/21/24 14:00 100 MG Acetylcysteine 100 mg Q6HR NEB 06/09/24 18:00 06/21/24 11:19 100 MG Amlodipine Besylate 10 mg DAILY PO 06/10/24 10:00 06/21/24 08:46 10 MG Enoxaparin Sodium 40 mg DAILY SC 06/10/24 10:00 UNV Hydralazine HCl 20 mg Q2HPRN PRN IV 06/15/24 14:00 06/20/24 09:03 20 MG Fentanyl Citrate 250 ml @ 2.5 mls/hr Q24H IV 06/15/24 12:00 06/21/24 08:49 20 MLS/HR Enoxaparin Sodium 40 mg DAILY SC 06/17/24 10:00 UNV Enoxaparin Sodium 30 mg DAILY SC 06/17/24 10:00 06/21/24 08:47 30 MG Epoetin Calin-epbx 10,000 unit TUTHSA SC 06/17/24 12:00 06/21/24 08:48 10,000 UNIT Sodium Chloride 10 ml QSHIFT@10,22 IV 06/17/24 22:00 06/21/24 07:21 10 ML Lactulose 30 ml BID PEG 06/19/24 22:00 06/20/24 21:46 30 ML Levetiracetam 500 mg BID PO 06/20/24 22:00 06/21/24 08:47 500 MG Pantoprazole Sodium 40 mg DAILY@0600 PO 06/21/24 10:00 06/21/24 08:47 40 MG Acetaminophen 650 mg Q6HP PRN GT 06/20/24 11:30 Laboratory Results Laboratory Tests 06/21/24 05:09 Chemistry Test 06/21/24 05:09 Albumin 2.1 g/dL (3.2-4.8) L Calcium Level 8.9 mg/dL (8.7-10.4) Total Protein 5.1 g/dL (5.7-8.2) L LFT Test 06/21/24 05:09 Alanine Aminotransferase (ALT) < 9 U/L (7-40) Alkaline Phosphatase 93 U/L (46-116) Aspartate Amino Transferase (AST) 17 U/L (13-40) Total Bilirubin < 0.2 mg/dL (0.2-1.0) L Urinalysis Test 05/28/24 22:36 05/30/24 04:30 Urine Color Dark-brown (Yellow) Urine Clarity Ex.turbid (Clear) Urine pH 6.0 (5.0-9.0) Urine Specific [place] 1.017 (1.001-1.035) Urine Protein 2+ (Negative) H Urine Ketones Trace (Negative) Urine Blood 1+ /uL (Negative) H Urine Nitrite Negative (Negative) Urine Bilirubin Negative (Negative) Urine Urobilinogen Normal mg/dL (Negative) Urine Leukocyte Esterase 3+ /uL (Negative) Urine RBC 56 /hpf (0 - 3) Urine WBC 3664 /hpf (0 - 3) Urine WBC Clumps Present /hpf (None Seen) Urine Squamous Epithelial Cells Many /hpf (<5) Urine Bacteria Mod /hpf (None Seen) H Urine Glucose Normal mg/dL (Normal) Urine Creatinine 33.57 mg/dL (30.0-125.0) Urine Sodium 85 mmol/L (40-220) Microbiology Microbiology Date/Time Source Procedure Growth Status 06/11/24 16:06 Bronchial Washings Gram Stain - Final Complete 06/11/24 16:06 Respiratory Culture - Final Acinetobacter baumannii Pseudomonas aeruginosa Complete 06/10/24 04:52 Trachea Gram Stain - Final Resulted 06/10/24 04:52 Respiratory Culture - Preliminary Pseudomonas aeruginosa Acinetobacter baumannii MDRO Acinetobacter baumannii Resulted 06/09/24 18:54 Blood Blood Culture - Final NO GROWTH AFTER 5 DAYS OF INCUBATION. Complete 05/30/24 11:45 Pleural Fluid Gram Stain - Final Complete 05/30/24 11:45 Pleural Fluid Body Fluid Culture - Final Complete 05/28/24 22:36 Urine - Catheterized Urine Culture - Final Enterobacter cloacae Escherichia coli Enterococcus faecalis - VRE Complete Assessment/Plan Assessment/Plan 68-year-old male presents with past medical history of Chronic kidney disease, CHF, COPD, dyslipidemia, hypertension, CVA, liver disease broght to the Hospital with ALOC and SOB. Admitted and intubated on 05/28/2024 and underwent tracheostomy on 06/13. NEURO: Acute metabolic encephalopathy likely due to sepsis Patient is sedated and on mechanical ventilation, RASS scores -4 History of seizure during last admission(1 month back) used Keppra for 1 week Consulted neurology, recommended Keppra, changed IV to oral form EEG shows abnormal EEG recording consistent with the presence of a diffuse nonspecific encephalopathic state CARDIOVASCULAR: Hypertension Continue home medication, injection hydralazine 10 mg q.6 hours as needed PULMONARY: Acute Hypoxic Respiratory Failure likely due to pneumonia Septic shock likely due to pneumonia, improved Pneumonia likely due to Gram-positive Gram-negative Patient is sedated and on the mechanical ventilation with a setting of (VT 500, RR 18, peep 5, FiO2 30%) ABGs shows respiratory alkalosis Chest x-ray shows bilateral infiltrates duration, worsening in compared to yesterday Sputum culture from bronchoalveolar lavage from 05/24/24 shows MRSA, Enterobacter cloacae Blood culture from the 06/02/24 shows Staphylococcus epidermidis , Staph hominis Repeat culture from 06/09/2024 shows no growth Stopped in linezolid, as given for 11 days MRSA nares screening negative Continue N-acetylcysteine Breathing treatment q.[address] scan shows [id number] left pleural effusion Chest ultrasound shows left side pleural effusion Bronchoscopy performed on 06/11, there was some thin mucus secretion on bilateral side, bronchial lavage of right lower lobe and left lower lobe was performed, and the culture results shows Pseudomonas aeruginosa and Enterobacter baumanni, MDR; ID has been consulted Continue meropenem, started on 06/08 GI GI ppx: Protonix b.i.d. Hepatitis-C virus antibody positive Repeat stool occult blood test is negative CT abdominopelvic without contrast shows no evidence of intra-abdominal hemorrhage Tracheostomy is performed on 06/13 PEG tube is placed on 06/15 Bowel regimen: Lactulose 30 mL b.i.d. : FROYLAN on CKD grade 4 Nephrology on the board, hemodialysis performed yesterday Discontinued Bumex UTI, urinalysis shows UTI picture Urine culture from 05/28/2024 shows Enterobacter, E coli, Enterococcus faecalis Status post limb amputation, right lower limb, above the knee likely due to PAD Decubitus ulcer There are multiple grade 3-4 sacral ulcers position changing every 2 hours and dressing HEME Severe anemia, transfused 3 pack of red blood cells current HB is 8.5 ID: Sputum culture from bronchoalveolar lavage from 05/24/24 shows MRSA, Enterobacter cloacae Blood culture from the 06/02/24 shows Staphylococcus epidermidis , Staph hominis Repeat culture from 06/09/2024 shows no growth culture results from BAL from 06/11 shows Pseudomonas aeruginosa and Enterobacter baumanni, MDR ID is on the board, recommended to stop meropenem, as it does not cover these MDR and considering overall clinical picture it seems like the MDRO is colonization, however if he spikes continuous fever, or has increased workup breathing or worsening of hypoxia denude consider him starting on Ricarbio OR Fetroja + Tigecycline to cover these MDRO Discontinued meropenem, used for 12 days Mild fever, Tylenol as needed SKIN Possible keloid There is a growth on the left shoulder, per son, lesion has been present for several years Follow up on outpatient basis Metabolic: Hypernatremia, improved Hypokalemia, supplemented Hyperkalemia, improved Mild hyponatremia, monitoring Hypoglycemic episodes, likely due to being NPO for putting tunneled catheter, resumed diet, as tunneled catheter has been placed Hypomagnesemia, supplemented LINES/DRAINS/ACCESS: ETT, intubated on 05/28/2024 and tracheostomy performed on 06/11, PEG tube placed on 06/15 IV access Right subclavian tunneled catheter, placed on 06/18, and removed left internal jugular catheter on 06/20 PICC line, LEFT BASILIC vein, placed on 06/17 Suprapubic catheter, changed on 06/02/2020 Dripps: Fentanyl 200 No pressor DIET: Nepro 30 mL/hour DVT prophylaxis Lovenox 30 mg daily Disposition: forensic social worker consulted for transfer to the [facility] CODE STATUS: Full code Patient's status discussed with patient's son on telephone. Critical time spent more than 81 minutes, including patient care, chart review and updating the family, excluding any procedures. Plan discussed with: Other (nurse) Date of Service: Jun 21, 2024 Billing Provider: MING FERNANDEZ MD Common Visit Codes: 76785-[id number] CARE 30-74 MIN MING FERNANDEZ MD Jun 21, 2024 16:05
--- NOTE | 2024-06-21 22:46 | DVHPN2 ---
Progress Note - Dictate Date Seen: Jun 21, 2024 Has the PT tested + for MRSA If YES, has PT been informed?: Yes Medical Necessity Reason Pt with a Central, PICC or Fol: Yes The following are medically ne: Central Line, Rubio Catheter Reason for rubio catheter: Strict I&O Subjective Patient seen and examined at bedside. Sedated, intubated on mechanical ventilator. S/p trach Overnight events reviewed. vital signs Vital Sign Date Time Temp Pulse Resp B/P (MAP) Pulse Ox O2 Delivery O2 Flow Rate FiO2 06/21/24 22:07 95 18 145/74 (97) 98 30 06/21/24 20:00 Mechanical Ventilator+ 06/21/24 20:00 99.1 99.1 Total Intake and Output 06/20/24 06/20/24 06/21/24 15:00 23:00 07:00 Intake Total 457.5 ml 687 ml 440 ml Output Total 435 ml 410 ml Balance 457.5 ml 252 ml 30 ml medications Current Medications Medications Dose Ordered Sig/[place] Route Start Time Stop Time Status Last Admin Dose Admin Midazolam HCl 50 ml @ 1 mls/hr Q24H IV 05/28/24 21:15 06/13/24 12:57 5 MLS/HR Albuterol 2.5 mg Q6HPRN PRN NEB 05/29/24 00:00 06/21/24 18:42 2.5 MG Enteral Nutritional Formula 1,000 ml 30ML/HR GT 05/30/24 11:00 06/18/24 20:40 1,000 ML Diagnostic Test (Pha) 1 strip Q6HR 06/02/24 12:00 06/21/24 17:51 1 STRIP Dextrose 50 ml UD PRN IV 06/02/24 10:45 06/19/24 04:55 50 ML Heparin Sodium (Porcine) 4,000 units PRN PRN IV 06/07/24 09:00 Hydralazine HCl 100 mg Q8HR PO 06/07/24 14:00 06/21/24 21:45 100 MG Acetylcysteine 100 mg Q6HR NEB 06/09/24 18:00 06/21/24 18:42 100 MG Amlodipine Besylate 10 mg DAILY PO 06/10/24 10:00 06/21/24 08:46 10 MG Enoxaparin Sodium 40 mg DAILY SC 06/10/24 10:00 UNV Hydralazine HCl 20 mg Q2HPRN PRN IV 06/15/24 14:00 06/20/24 09:03 20 MG Fentanyl Citrate 250 ml @ 2.5 mls/hr Q24H IV 06/15/24 12:00 06/21/24 08:49 20 MLS/HR Enoxaparin Sodium 40 mg DAILY SC 06/17/24 10:00 UNV Enoxaparin Sodium 30 mg DAILY SC 06/17/24 10:00 06/21/24 08:47 30 MG Epoetin Calin-epbx 10,000 unit TUTHSA SC 06/17/24 12:00 06/21/24 08:48 10,000 UNIT Sodium Chloride 10 ml QSHIFT@10,22 IV 06/17/24 22:00 06/21/24 21:44 10 ML Lactulose 30 ml BID PEG 06/19/24 22:00 06/21/24 21:44 30 ML Levetiracetam 500 mg BID PO 06/20/24 22:00 06/21/24 21:44 500 MG Pantoprazole Sodium 40 mg DAILY@0600 PO 06/21/24 10:00 06/21/24 08:47 40 MG Acetaminophen 650 mg Q6HP PRN GT 06/20/24 11:30 objective Gen.: Patient lying in bed in medical ICU. Sedated, intubated on mechanical ventilator. S/p trach. Head: Normocephalic, atraumatic. Eyes: PERRLA. Ears: Normal external anatomy. Throat: Endotracheal tube and orogastric tube in place. Neck: Trach in place. Chest: Transmitted breath sounds bilaterally. Decreased air entry bilaterally. No wheezing. Bibasilar crackles. Cardiovascular: Positive S1, positive S2. Regular rate and rhythm. Abdomen: Positive bowel sounds in all 4 quadrants. Soft, nontender, nondistended. : Rubio in place. Normal external genitalia. Rectal: Deferred. Skin: Warm, dry. Intact. Extremities: 2+ radial pulses bilaterally. No lower extremity edema. Neuro: Sedated. laboratory and microbiology Laboratory Tests 06/21/24 05:09 Test 06/21/24 05:09 Range/Units Serum Glucose 73 L 74-106 mg/dL Assessment/Plan Impression: Acute hypoxic respiratory failure On mechanical ventilator Multifocal pneumonia Atelectasis Congestive heart failure Events: Remains on vent support On AC mode; RR 18. VT 500, PEEP 5, FiO2 of 30%. ABG reviewed, compensated. S/p trach. Trach care. Sedated on Fentanyl drip. Continue antibiotics Off pressors, hemodynamically stable. Wound care. PEG feeds for nutritional support. Monitor hemoglobin Transfuse if less than 7.0 g/dL. HD per Nephrology Monitor renal function Monitor electrolytes. Supplement as necessary. Potassium supplementation NTS PRN. Recommend LTAC placement. S/p bronchoscopy with BAL on 06/02. See procedure note for full details. Rest of plan as noted below Plan: s/p intubation on mechanical ventilator. Vent settings; AC mode; RR 18. VT 500, PEEP 5, FiO2 of 30%. S/p trach Titrate FIO2 to keep O2 saturation above 90%. VAP bundle. Daily ABG and CXR while intubated Sedate for vent synchrony Off pressors,hemodynamically stable. Antibiotics F/u cultures. Positive hepatitis C. IV fluids at 100 ml/hr Maintain euvolemia Monitor renal function Monitor electrolytes. Supplement as necessary. Monitor ins and outs. Tube feeds for nutritional support. GI prophylaxis. DVT prophylaxis. Prognosis: Poor given patient's multiple co-morbidities. Condition: Critical Rest of plan per hospitalist and other consultants. A total of 35 minutes of critical care time was spent reviewing the patient record, examining the patient, making a diagnostic and therapeutic plan, discussing this plan with the medical personnel, following up on diagnostic studies and following the patient for clinical stability excluding any and all procedures. At least 50% of this time was spent in direct, [id number] contact. Thank you Anthony Ugalde NP, for allowing me to participate in this patient's care. Further recommendations will depend on the patient's clinical course. Please do not hesitate to contact me if you have any questions or concerns. This medical document was created using an electronic medical record system with [employer] system. Although these documentations are being carefully reviewed, there may still be some phonetic and typographical changes. The errors are purely typographical, due to imperfection on the software program, and do not reflect any compromise in the patient's medical care. Dietary Evaluation Review Comments: 1) If GI is assessible consider Jevity 1.2 @ 60 ml/hr x24 hrs goal rate as tolerated 2) If pt remains NPO >7 days consider TPN to meet at least 75% of estimated needs 3) Advance pt diet when medically feasible to a Cardiac/Renal Specific K2,2gmNA,low phos,60g Pro diet modified per HOME ADVISOR recommendations 4) Continue current plan of care Expected Outcomes/Goals: 1) Pt to receive adequate nutrition support 2) Pt diet to advance Plan discussed with: Other (DORCAS [place]ings[place]) Critical Care Time(min): 35 CC Plasma Assessment Blood Product Administration S: [id number] ELIANE ALTAMIRANO MD Jun 21, 2024 22:46
[2024-06-22] VITALS (91 sets, daily range): BP systolic 108–182; BP diastolic 43–100; PULSE 82–109; RESP 11–20; TEMP 97.4–99.9; O2SAT 88–100
[2024-06-22 06:03] LABS: Anion Gap 6 (5-15); Carbon Dioxide 26 mmol/L (20-31); Chloride 105 mmol/L (98-107); Potassium 3.9 mmol/L (3.5-5.1); Sodium 137 mmol/L (136-145)
[2024-06-22 06:09] LABS: BUN/Creatinine Ratio 6.5 (10.0-20.0); Glucose 89 mg/dL (74-106); Magnesium 1.9 mg/dL (1.6-2.6)
[2024-06-22 06:11] LABS: Hemoglobin 7.6 g/dL (13.5-17.5); Lymphocytes # (auto) 0.8 10 ^3/uL (0.4-5.4); Monocytes # (auto) 0.5 10 ^3/uL (0-1.3); Neutrophils # (auto) 2.6 10 ^3/uL (1.6-8.6); Red Blood Cells 2.41 10^6/uL (4.5-5.90); White Blood Cell 4.5 10^3/uL (4.4-10.8)
--- NOTE | 2024-06-22 06:11 | DVH ---
CHEST RADIOGRAPH Indication: ventilator Technique: Single frontal view of the chest was obtained Comparison: XY CHEST XRAY 1 VIEW on DOS: 06/21/24, XY CHEST XRAY 1 VIEW on DOS: 06/20/24, XY CHEST XRAY 1 VIEW on DOS: 06/19/24, XY CHEST XRAY 1 VIEW on DOS: 06/18/24, XY CHEST XRAY 1 VIEW on DOS: 06/17/24, XY CHEST XRAY 1 VIEW on DOS: 06/21/24 FINDINGS: Tracheostomy is not included in this examination. Right dialysis catheter tip in the region of the s uperior vena cava. Low lung volumes. The heart appears prominent size. There has oval fall been impr ovement in pulmonary aeration with persistent moderate pulmonary vascular congestion and small left p leural effusion. IMPRESSION: Tracheostomy is not included in this examination. Right dialysis catheter tip in the region of the s uperior vena cava. Low lung volumes. The heart appears prominent size. There has oval fall been impr ovement in pulmonary aeration with persistent moderate pulmonary vascular congestion and small left p leural effusion.
[2024-06-22 06:16] LABS: Basophils # (auto) 0.1 10 ^3/uL (0-0.2); Basophils % (auto) 1.3 % (0.0-2.0); Blood Urea Nitrogen 28 mg/dL (9-23); Eosinophils # (auto) 0.6 10 ^3/uL (0-0.8); Eosinophils % (auto) 12.4 % (0.0-7.0); Lymphocytes % (auto) 18.1 % (10.0-50.0); Mean Corpuscular Hemoglobin 31.6 pg (28.0-32.0); Mean Corpuscular Hgb Conc. 33.1 g/dL (32.0-36.0); Mean Corpuscular Volume 95.6 fL (80.0-100.0); Monocytes % (auto) 10.9 % (0.0-12.0); Neutrophils % (auto) 57.3 % (37.0-80.0); Platelet Count (auto) 188 10^3/uL (140-450); Red Cell Distribution Width 16.8 % (11.8-14.3)
[2024-06-22 09:51] LABS: Base Excess -0.5 mmol/L (-2.0-3.0)
[2024-06-22] MEDS: SODIUM CHL 0.9% 1000 ML BAG XX ONE (12:15)
--- NOTE | 2024-06-22 16:24 | DVHPN2 ---
Progress Note - Dictate Date Seen: Jun 22, 2024 Has the PT tested + for MRSA If YES, has PT been informed?: Yes Medical Necessity Reason Pt with a Central, PICC or Fol: Yes The following are medically ne: Central Line, Rubio Catheter Reason for rubio catheter: Strict I&O Subjective Patient is sedated and on mechanical ventilation. on trach No new acute complaints noted at this time. s/p tunneled dialysis catheter. Creatinine is elevated at 4.02. 06/21, Chest x-ray revealed: Tracheostomy is not included in this examination. Right dialysis catheter tip in the region of the superior vena cava. Low lung volumes. The heart appears prominent size. There has oval fall been improvement in pulmonary aeration with persistent moderate pulmonary vascular congestion and small left pleural effusion. same x-ray on 06/22 vital signs Vital Sign Date Time Temp Pulse Resp B/P (MAP) Pulse Ox O2 Delivery O2 Flow Rate FiO2 06/22/24 15:49 105 06/22/24 15:49 18 100 Mechanical Ventilator+ 35 35 06/22/24 15:45 98.6 152/66 (94) 98.6 Total Intake and Output 06/21/24 06/21/24 06/22/24 15:00 23:00 07:00 Intake Total 222.5 ml 230 ml 390 ml Output Total 300 ml 150 ml Balance 222.5 ml -70 ml 240 ml medications Current Medications Medications Dose Ordered Sig/[place] Route Start Time Stop Time Status Last Admin Dose Admin Midazolam HCl 50 ml @ 1 mls/hr Q24H IV 05/28/24 21:15 06/13/24 12:57 5 MLS/HR Albuterol 2.5 mg Q6HPRN PRN NEB 05/29/24 00:00 06/22/24 13:10 2.5 MG Enteral Nutritional Formula 1,000 ml 30ML/HR GT 05/30/24 11:00 06/18/24 20:40 1,000 ML Diagnostic Test (Pha) 1 strip Q6HR 06/02/24 12:00 06/22/24 11:45 1 STRIP Dextrose 50 ml UD PRN IV 06/02/24 10:45 06/19/24 04:55 50 ML Heparin Sodium (Porcine) 4,000 units PRN PRN IV 06/07/24 09:00 Hydralazine HCl 100 mg Q8HR PO 06/07/24 14:00 06/22/24 06:00 100 MG Acetylcysteine 100 mg Q6HR NEB 06/09/24 18:00 06/22/24 13:13 100 MG Amlodipine Besylate 10 mg DAILY PO 06/10/24 10:00 06/22/24 08:15 10 MG Enoxaparin Sodium 40 mg DAILY SC 06/10/24 10:00 UNV Hydralazine HCl 20 mg Q2HPRN PRN IV 06/15/24 14:00 06/22/24 09:44 20 MG Fentanyl Citrate 250 ml @ 2.5 mls/hr Q24H IV 06/15/24 12:00 06/22/24 03:40 10 MLS/HR Enoxaparin Sodium 40 mg DAILY SC 06/17/24 10:00 UNV Enoxaparin Sodium 30 mg DAILY SC 06/17/24 10:00 06/22/24 08:14 30 MG Epoetin Calin-epbx 10,000 unit TUTHSA SC 06/17/24 12:00 06/21/24 08:48 10,000 UNIT Sodium Chloride 10 ml QSHIFT@10,22 IV 06/17/24 22:00 06/22/24 06:51 10 ML Lactulose 30 ml BID PEG 06/19/24 22:00 06/22/24 08:14 30 ML Levetiracetam 500 mg BID PO 06/20/24 22:00 06/22/24 08:15 500 MG Pantoprazole Sodium 40 mg DAILY@0600 PO 06/21/24 10:00 06/22/24 06:00 40 MG Acetaminophen 650 mg Q6HP PRN GT 06/20/24 11:30 objective General: Patient is in mild distress HEENT: Normocephalic atraumatic, has trach Neck: Cervical and supraclavicular nodes normal without enlargement, trachea is midline, thyroid gland is normal without masses. Pulmonary: Clear to auscultation and percussion bilaterally. Cardiac: heart sound normal Abdomen: Soft, nontender, nondistended, bowel sounds present all 4 quadrants, no guarding, no rigidity, no organomegaly. Extremities: No cyanosis, clubbing, right AKA skin decub ulcers Neuro: Sedated laboratory and microbiology Laboratory Tests 06/22/24 05:30 Test 06/22/24 05:30 Range/Units Serum Glucose 89 74-106 mg/dL Assessment/Plan Patient is a 69-year-old male presents to the clinic with: MDRO Pseudomonas in sputum MDRO Acinetobacter baumannii in sputum MRSA Pneumonia Acute respiratory failure, s/p trach on MV Acute on chronic renal failure Coagulase-negative Staph bacteremia Acute metabolic encephalopathy Decubitus ulcer Elevated troponin Anemia Recommendations: Overall, patient is on minimal vent setting, is on trach He has received more than adequate course of antibiotics for MRSA pneumonia, the chest x-ray finding could be secondary to MRSA pneumonia versus fluid His most recent bronchial cultures is growing Pseudomonas and Acinetobacter baumannii which are both MDRO and waiting for confirmation from [facility] lab Overall, he seems clinically stable from respiratory standpoint with minimal vent setting, mostly afebrile and has normal WBC count and minimal ET tube secretions Patient is currently on Meropenem however this does not cover both of these MDR. Recommend to stop Meropenem. Considering overall clinical picture it seems like the MDRO is colonization hence recommend holding off on treatment. However if he spikes continuous fever,or has increased workup breathing or worsening of hypoxia denude consider him starting on Ricarbio OR Fetroja + Tigecycline to cover these s/p tunneled cath placement. dialysis Reviewed all the cultures and the blood culture seems to be a contamination however he has also received course of vancomycin followed by linezolid Patient has history of recurrent hospital admissions with progressive decline in physical condition recommend wound care for decub will sign off, please call ID if concerns of active infection Thank you for consult and for giving an opportunity to take care of this patient. Dietary Evaluation Review Comments: 1) If GI is assessible consider Jevity 1.2 @ 60 ml/hr x24 hrs goal rate as tolerated 2) If pt remains NPO >7 days consider TPN to meet at least 75% of estimated needs 3) Advance pt diet when medically feasible to a Cardiac/Renal Specific K2,2gmNA,low phos,60g Pro diet modified per SHOE HANDLER recommendations 4) Continue current plan of care Expected Outcomes/Goals: 1) Pt to receive adequate nutrition support 2) Pt diet to advance Plan discussed with: Other CC Plasma Assessment Blood Product Administration S: [id number] TAPAN ORANTES MD Jun 22, 2024 16:24
--- NOTE | 2024-06-22 16:43 | DVHPN2 ---
Progress Note - Dictate Date Seen: Jun 22, 2024 Has the PT tested + for MRSA If YES, has PT been informed?: Yes Medical Necessity Reason Pt with a Central, PICC or Fol: Yes The following are medically ne: Central Line, Rubio Catheter Reason for rubio catheter: Strict I&O Subjective remains intubated vital signs Vital Sign Date Time Temp Pulse Resp B/P (MAP) Pulse Ox O2 Delivery O2 Flow Rate FiO2 06/22/24 15:49 105 06/22/24 15:49 18 100 Mechanical Ventilator+ 35 35 06/22/24 15:45 98.6 152/66 (94) 98.6 Total Intake and Output 06/21/24 06/21/24 06/22/24 15:00 23:00 07:00 Intake Total 222.5 ml 230 ml 390 ml Output Total 300 ml 150 ml Balance 222.5 ml -70 ml 240 ml medications Current Medications Medications Dose Ordered Sig/[place] Route Start Time Stop Time Status Last Admin Dose Admin Midazolam HCl 50 ml @ 1 mls/hr Q24H IV 05/28/24 21:15 06/13/24 12:57 5 MLS/HR Albuterol 2.5 mg Q6HPRN PRN NEB 05/29/24 00:00 06/22/24 13:10 2.5 MG Enteral Nutritional Formula 1,000 ml 30ML/HR GT 05/30/24 11:00 06/18/24 20:40 1,000 ML Diagnostic Test (Pha) 1 strip Q6HR 06/02/24 12:00 06/22/24 11:45 1 STRIP Dextrose 50 ml UD PRN IV 06/02/24 10:45 06/19/24 04:55 50 ML Heparin Sodium (Porcine) 4,000 units PRN PRN IV 06/07/24 09:00 Hydralazine HCl 100 mg Q8HR PO 06/07/24 14:00 06/22/24 06:00 100 MG Acetylcysteine 100 mg Q6HR NEB 06/09/24 18:00 06/22/24 13:13 100 MG Amlodipine Besylate 10 mg DAILY PO 06/10/24 10:00 06/22/24 08:15 10 MG Enoxaparin Sodium 40 mg DAILY SC 06/10/24 10:00 UNV Hydralazine HCl 20 mg Q2HPRN PRN IV 06/15/24 14:00 06/22/24 09:44 20 MG Fentanyl Citrate 250 ml @ 2.5 mls/hr Q24H IV 06/15/24 12:00 06/22/24 03:40 10 MLS/HR Enoxaparin Sodium 40 mg DAILY SC 06/17/24 10:00 UNV Enoxaparin Sodium 30 mg DAILY SC 06/17/24 10:00 06/22/24 08:14 30 MG Epoetin Calin-epbx 10,000 unit TUTHSA SC 06/17/24 12:00 06/21/24 08:48 10,000 UNIT Sodium Chloride 10 ml QSHIFT@10,22 IV 06/17/24 22:00 06/22/24 06:51 10 ML Lactulose 30 ml BID PEG 06/19/24 22:00 06/22/24 08:14 30 ML Levetiracetam 500 mg BID PO 06/20/24 22:00 06/22/24 08:15 500 MG Pantoprazole Sodium 40 mg DAILY@0600 PO 06/21/24 10:00 06/22/24 06:00 40 MG Acetaminophen 650 mg Q6HP PRN GT 06/20/24 11:30 objective Gen: nad, heent: nc/at, mmm lungs: Occasional coarse breath sounds cvs: no rub ext: no edema laboratory and microbiology Laboratory Tests 06/22/24 05:30 Test 06/22/24 05:30 Range/Units Serum Glucose 89 74-106 mg/dL Assessment/Plan Acute kidney injury on chronic kidney disease stage 4 -> likely septic ATN needing HD Acute respiratory failure on vent Anemia suspected due to low blood loss s/p PRBC Hypernatremia Hypokalemia Metabolic acidosis Chronic urinary retention sepsis due to bacteremia recs - dialysis today for solute removal - Awaiting placement in long-term acute care facility Dietary Evaluation Review Comments: 1) If GI is assessible consider Jevity 1.2 @ 60 ml/hr x24 hrs goal rate as tolerated 2) If pt remains NPO >7 days consider TPN to meet at least 75% of estimated needs 3) Advance pt diet when medically feasible to a Cardiac/Renal Specific K2,2gmNA,low phos,60g Pro diet modified per LACTATION SPECIALIST recommendations 4) Continue current plan of care Expected Outcomes/Goals: 1) Pt to receive adequate nutrition support 2) Pt diet to advance Plan discussed with: Other CC Plasma Assessment Blood Product Administration S: [id number] SHANEL HOOK MD Jun 22, 2024 16:43
--- NOTE | 2024-06-22 19:35 | DVHPN2 ---
Progress Note - Dictate Date Seen: Jun 22, 2024 Has the PT tested + for MRSA If YES, has PT been informed?: Yes Medical Necessity Reason Pt with a Central, PICC or Fol: Yes The following are medically ne: Central Line, Rubio Catheter Reason for rubio catheter: Strict I&O Subjective Patient seen and examined at bedside. Sedated, intubated on mechanical ventilator. S/p trach Overnight events reviewed. vital signs Vital Sign Date Time Temp Pulse Resp B/P (MAP) Pulse Ox O2 Delivery O2 Flow Rate FiO2 06/22/24 19:00 99 18 124/43 (70) 98 06/22/24 18:20 35 06/22/24 17:52 Mechanical Ventilator+ 06/22/24 17:00 98.3 98.3 Total Intake and Output 06/21/24 06/21/24 06/22/24 14:59 22:59 06:59 Intake Total 230.0 ml 232.5 ml 390 ml Output Total 300 ml 150 ml Balance 230.0 ml -67.5 ml 240 ml medications Current Medications Medications Dose Ordered Sig/[place] Route Start Time Stop Time Status Last Admin Dose Admin Midazolam HCl 50 ml @ 1 mls/hr Q24H IV 05/28/24 21:15 06/13/24 12:57 5 MLS/HR Albuterol 2.5 mg Q6HPRN PRN NEB 05/29/24 00:00 06/22/24 13:10 2.5 MG Enteral Nutritional Formula 1,000 ml 30ML/HR GT 05/30/24 11:00 06/18/24 20:40 1,000 ML Diagnostic Test (Pha) 1 strip Q6HR 06/02/24 12:00 06/22/24 17:03 1 STRIP Dextrose 50 ml UD PRN IV 06/02/24 10:45 06/19/24 04:55 50 ML Heparin Sodium (Porcine) 4,000 units PRN PRN IV 06/07/24 09:00 Hydralazine HCl 100 mg Q8HR PO 06/07/24 14:00 06/22/24 06:00 100 MG Acetylcysteine 100 mg Q6HR NEB 06/09/24 18:00 06/22/24 18:11 100 MG Amlodipine Besylate 10 mg DAILY PO 06/10/24 10:00 06/22/24 08:15 10 MG Enoxaparin Sodium 40 mg DAILY SC 06/10/24 10:00 UNV Hydralazine HCl 20 mg Q2HPRN PRN IV 06/15/24 14:00 06/22/24 09:44 20 MG Fentanyl Citrate 250 ml @ 2.5 mls/hr Q24H IV 06/15/24 12:00 06/22/24 03:40 10 MLS/HR Enoxaparin Sodium 40 mg DAILY SC 06/17/24 10:00 UNV Enoxaparin Sodium 30 mg DAILY SC 06/17/24 10:00 06/22/24 08:14 30 MG Epoetin Calin-epbx 10,000 unit TUTHSA SC 06/17/24 12:00 06/21/24 08:48 10,000 UNIT Sodium Chloride 10 ml QSHIFT@,22 IV 06/17/24 22:00 06/22/24 06:51 10 ML Lactulose 30 ml BID PEG 06/19/24 22:00 06/22/24 08:14 30 ML Levetiracetam 500 mg BID PO 06/20/24 22:00 06/22/24 08:15 500 MG Pantoprazole Sodium 40 mg DAILY@0600 PO 06/21/24 10:00 06/22/24 06:00 40 MG Acetaminophen 650 mg Q6HP PRN GT 06/20/24 11:30 objective Gen.: Patient lying in bed in medical ICU. Sedated, intubated on mechanical ventilator. S/p trach. Head: Normocephalic, atraumatic. Eyes: PERRLA. Ears: Normal external anatomy. Throat: Endotracheal tube and orogastric tube in place. Neck: Trach in place. Chest: Transmitted breath sounds bilaterally. Decreased air entry bilaterally. No wheezing. Bibasilar crackles. Cardiovascular: Positive S1, positive S2. Regular rate and rhythm. Abdomen: Positive bowel sounds in all 4 quadrants. Soft, nontender, nondistended. : Rubio in place. Normal external genitalia. Rectal: Deferred. Skin: Warm, dry. Intact. Extremities: 2+ radial pulses bilaterally. No lower extremity edema. Neuro: Sedated. laboratory and microbiology Laboratory Tests 06/22/24 05:30 Test 06/22/24 05:30 Range/Units Serum Glucose 89 74-106 mg/dL Assessment/Plan Impression: Acute hypoxic respiratory failure On mechanical ventilator Multifocal pneumonia Atelectasis Congestive heart failure Events: ABG reviewed, notable for alkalemia S/p trach. Trach care. Pulmonary toileting. Increased FiO2 requirements, 35% Sedated on Fentanyl drip. Hemodialysis today Wound care. PEG feeds for nutritional support. Monitor hemoglobin Transfuse if less than 7.0 g/dL. HD per Nephrology Monitor renal function Monitor electrolytes. Supplement as necessary. NTS PRN. Awaiting LTAC placement. S/p bronchoscopy with BAL on 06/02. See procedure note for full details. Rest of plan as noted below Plan: s/p intubation on mechanical ventilator. Vent settings; AC mode; RR 18. VT 500, PEEP 5, FiO2 of 35%. S/p trach Titrate FIO2 to keep O2 saturation above 90%. VAP bundle. Daily ABG and CXR while intubated Sedate for vent synchrony Off pressors,hemodynamically stable. Antibiotics - completed F/u cultures. Positive hepatitis C. IV fluids at 100 ml/hr Maintain euvolemia Monitor renal function Monitor electrolytes. Supplement as necessary. Monitor ins and outs. Tube feeds for nutritional support. GI prophylaxis. DVT prophylaxis. Prognosis: Poor given patient's multiple co-morbidities. Condition: Critical Rest of plan per hospitalist and other consultants. A total of 35 minutes of critical care time was spent reviewing the patient record, examining the patient, making a diagnostic and therapeutic plan, discussing this plan with the medical personnel, following up on diagnostic studies and following the patient for clinical stability excluding any and all procedures. At least 50% of this time was spent in direct, [id number] contact. Thank you Anthony Ugalde NP, for allowing me to participate in this patient's care. Further recommendations will depend on the patient's clinical course. Please do not hesitate to contact me if you have any questions or concerns. This medical document was created using an electronic medical record system with [employer] dictation system. Although these documentations are being carefully reviewed, there may still be some phonetic and typographical changes. The errors are purely typographical, due to imperfection on the software program, and do not reflect any compromise in the patient's medical care. Dietary Evaluation Review Comments: 1) If GI is assessible consider Jevity 1.2 @ 60 ml/hr x24 hrs goal rate as tolerated 2) If pt remains NPO >7 days consider TPN to meet at least 75% of estimated needs 3) Advance pt diet when medically feasible to a Cardiac/Renal Specific K2,2gmNA,low phos,60g Pro diet modified per COMMUNITY RELATIONS ASSISTANT recommendations 4) Continue current plan of care Expected Outcomes/Goals: 1) Pt to receive adequate nutrition support 2) Pt diet to advance Plan discussed with: Other (DORCAS [place]) Critical Care Time(min): 35 CC Plasma Assessment Blood Product Administration S: [id number] ELIANE ALTAMIRANO MD Jun 22, 2024 19:35
--- NOTE | 2024-06-22 20:51 | DVHPN2 ---
Subjective This is a 65-year-old male with past medical history of CHF, CKD, COPD, dyslipidemia, hypertension, CVA brought to the hospital with shortness of breaths and at the level of consciousness. Admitted and intubated on 05/28, extubated on 06/09 but reintubated on 06/10. Epigastric performed on 06/13, PEG tube placed on 06/15. Today, patient seen and examined at the bedside. Patient is sedated and on on mechanical ventilation. Review of systems could not obtain. Chest x-ray shows bilateral infiltration, she was worsening incompetent yesterday. Reviewed: Care Plan, H&P, Labs, Medications, Previous Orders, Radiology, Other (Consultants) Changes from previous H/P or p: No Changes General: Per HPI Objective Vitals Vital Signs Date Time Temp Pulse Resp B/P (MAP) Pulse Ox O2 Delivery O2 Flow Rate FiO2 06/22/24 19:53 98 18 126/63 (84) 98 35 06/22/24 17:52 Mechanical Ventilator+ 06/22/24 17:00 98.3 98.3 Intake/Output Intake and Output 06/22/24 05:00 Intake Total 832.5 ml Output Total 710 ml Balance 122.5 ml IV Total 402.5 ml Tube Feeding 430 ml Output Urine Total 160 ml Stool Total 550 ml General Appearance: Other (Sedated) HEENT: Atraumatic, PERRLA Lungs: Other (Few crackles bilateral lungs) Cardiovascular: Regular rate Abdomen: Normal bowel sounds, Soft Musculoskeletal: Other (Sedated) Extremities: Other (Edema left lower extremity. Right AKA) Medications Current Medications Medications Dose Ordered Sig/[place] Route Start Time Stop Time Status Last Admin Dose Admin Midazolam HCl 50 ml @ 1 mls/hr Q24H IV 05/28/24 21:15 06/13/24 12:57 5 MLS/HR Albuterol 2.5 mg Q6HPRN PRN NEB 05/29/24 00:00 06/22/24 13:10 2.5 MG Enteral Nutritional Formula 1,000 ml 30ML/HR GT 05/30/24 11:00 06/18/24 20:40 1,000 ML Diagnostic Test (Pha) 1 strip Q6HR 06/02/24 12:00 06/22/24 17:03 1 STRIP Dextrose 50 ml UD PRN IV 06/02/24 10:45 06/19/24 04:55 50 ML Heparin Sodium (Porcine) 4,000 units PRN PRN IV 06/07/24 09:00 Hydralazine HCl 100 mg Q8HR PO 06/07/24 14:00 06/22/24 06:00 100 MG Acetylcysteine 100 mg Q6HR NEB 06/09/24 18:00 06/22/24 18:11 100 MG Amlodipine Besylate 10 mg DAILY PO 06/10/24 10:00 06/22/24 08:15 10 MG Enoxaparin Sodium 40 mg DAILY SC 06/10/24 10:00 UNV Hydralazine HCl 20 mg Q2HPRN PRN IV 06/15/24 14:00 06/22/24 09:44 20 MG Fentanyl Citrate 250 ml @ 2.5 mls/hr Q24H IV 06/15/24 12:00 06/22/24 03:40 10 MLS/HR Enoxaparin Sodium 40 mg DAILY SC 06/17/24 10:00 UNV Enoxaparin Sodium 30 mg DAILY SC 06/17/24 10:00 06/22/24 08:14 30 MG Epoetin Calin-epbx 10,000 unit TUTHSA SC 06/17/24 12:00 06/21/24 08:48 10,000 UNIT Sodium Chloride 10 ml QSHIFT@10,22 IV 06/17/24 22:00 06/22/24 06:51 10 ML Lactulose 30 ml BID PEG 06/19/24 22:00 06/22/24 08:14 30 ML Levetiracetam 500 mg BID PO 06/20/24 22:00 06/22/24 08:15 500 MG Pantoprazole Sodium 40 mg DAILY@0600 PO 06/21/24 10:00 06/22/24 06:00 40 MG Acetaminophen 650 mg Q6HP PRN GT 06/20/24 11:30 Laboratory Results Laboratory Tests 06/22/24 05:30 Chemistry Test 06/22/24 05:30 Calcium Level 9.0 mg/dL (8.7-10.4) Magnesium Level 1.9 mg/dL (1.6-2.6) Urinalysis Test 05/28/24 22:36 05/30/24 04:30 Urine Color Dark-brown (Yellow) Urine Clarity Ex.turbid (Clear) Urine pH 6.0 (5.0-9.0) Urine Specific [place] 1.017 (1.001-1.035) Urine Protein 2+ (Negative) H Urine Ketones Trace (Negative) Urine Blood 1+ /uL (Negative) H Urine Nitrite Negative (Negative) Urine Bilirubin Negative (Negative) Urine Urobilinogen Normal mg/dL (Negative) Urine Leukocyte Esterase 3+ /uL (Negative) Urine RBC 56 /hpf (0 - 3) Urine WBC 3664 /hpf (0 - 3) Urine WBC Clumps Present /hpf (None Seen) Urine Squamous Epithelial Cells Many /hpf (<5) Urine Bacteria Mod /hpf (None Seen) H Urine Glucose Normal mg/dL (Normal) Urine Creatinine 33.57 mg/dL (30.0-125.0) Urine Sodium 85 mmol/L (40-220) Blood Gas Results Test 06/22/24 09:34 Arterial Blood pH 7.469 (7.350-7.450) FiO2 % 30.0 Microbiology Microbiology Date/Time Source Procedure Growth Status 06/11/24 16:06 Bronchial Washings Gram Stain - Final Complete 06/11/24 16:06 Respiratory Culture - Final Acinetobacter baumannii Pseudomonas aeruginosa Complete 06/10/24 04:52 Trachea Gram Stain - Final Resulted 06/10/24 04:52 Respiratory Culture - Preliminary Pseudomonas aeruginosa Acinetobacter baumannii MDRO Acinetobacter baumannii Resulted 06/09/24 18:54 Blood Blood Culture - Final NO GROWTH AFTER 5 DAYS OF INCUBATION. Complete 05/30/24 11:45 Pleural Fluid Gram Stain - Final Complete 05/30/24 11:45 Pleural Fluid Body Fluid Culture - Final Complete 05/28/24 22:36 Urine - Catheterized Urine Culture - Final Enterobacter cloacae Escherichia coli Enterococcus faecalis - VRE Complete Assessment/Plan Assessment/Plan 68-year-old male presents with past medical history of Chronic kidney disease, CHF, COPD, dyslipidemia, hypertension, CVA, liver disease broght to the Hospital with ALOC and SOB. Admitted and intubated on 05/28/2024 and underwent tracheostomy on 06/13. NEURO: Acute metabolic encephalopathy likely due to sepsis Patient is sedated and on mechanical ventilation, RASS scores -4 History of seizure during last admission(1 month back) used Keppra for 1 week Consulted neurology, recommended Keppra, changed IV to oral form EEG shows abnormal EEG recording consistent with the presence of a diffuse nonspecific encephalopathic state CARDIOVASCULAR: Hypertension Continue home medication, injection hydralazine 10 mg q.6 hours as needed PULMONARY: Acute Hypoxic Respiratory Failure likely due to pneumonia Septic shock likely due to pneumonia, improved Pneumonia likely due to Gram-positive Gram-negative Patient is sedated and on the mechanical ventilation with a setting of (VT 500, RR 18, peep 5, FiO2 30%) ABGs shows respiratory alkalosis Chest x-ray shows bilateral infiltrates duration, worsening in compared to yesterday Sputum culture from bronchoalveolar lavage from 05/24/24 shows MRSA, Enterobacter cloacae Blood culture from the 06/02/24 shows Staphylococcus epidermidis , Staph hominis Repeat culture from 06/09/2024 shows no growth Stopped in linezolid, as given for 11 days MRSA nares screening negative Continue N-acetylcysteine Breathing treatment q.[address] scan shows [id number] left pleural effusion Chest ultrasound shows left side pleural effusion Bronchoscopy performed on 06/11, there was some thin mucus secretion on bilateral side, bronchial lavage of right lower lobe and left lower lobe was performed, and the culture results shows Pseudomonas aeruginosa and Enterobacter baumanni, MDR; ID has been consulted Continue meropenem, started on 06/08 GI GI ppx: Protonix b.i.d. Hepatitis-C virus antibody positive Repeat stool occult blood test is negative CT abdominopelvic without contrast shows no evidence of intra-abdominal hemorrhage Tracheostomy is performed on 06/13 PEG tube is placed on 06/15 Bowel regimen: Lactulose 30 mL b.i.d. : FROYLAN on CKD grade 4 Nephrology on the board, hemodialysis performed yesterday Discontinued Bumex UTI, urinalysis shows UTI picture Urine culture from 05/28/2024 shows Enterobacter, E coli, Enterococcus faecalis Status post limb amputation, right lower limb, above the knee likely due to PAD Decubitus ulcer There are multiple grade 3-4 sacral ulcers position changing every 2 hours and dressing HEME Severe anemia, transfused 3 pack of red blood cells current HB is 8.5 ID: Sputum culture from bronchoalveolar lavage from 05/24/24 shows MRSA, Enterobacter cloacae Blood culture from the 06/02/24 shows Staphylococcus epidermidis , Staph hominis Repeat culture from 06/09/2024 shows no growth culture results from BAL from 06/11 shows Pseudomonas aeruginosa and Enterobacter baumanni, MDR ID is on the board, recommended to stop meropenem, as it does not cover these MDR and considering overall clinical picture it seems like the MDRO is colonization, however if he spikes continuous fever, or has increased workup breathing or worsening of hypoxia denude consider him starting on Ricarbio OR Fetroja + Tigecycline to cover these MDRO Discontinued meropenem, used for 12 days Mild fever, Tylenol as needed SKIN Possible keloid There is a growth on the left shoulder, per son, lesion has been present for several years Follow up on outpatient basis Metabolic: Hypernatremia, improved Hypokalemia, supplemented Hyperkalemia, improved Mild hyponatremia, monitoring Hypoglycemic episodes, likely due to being NPO for putting tunneled catheter, resumed diet, as tunneled catheter has been placed Hypomagnesemia, supplemented LINES/DRAINS/ACCESS: ETT, intubated on 05/28/2024 and tracheostomy performed on 06/11, PEG tube placed on 06/15 IV access Right subclavian tunneled catheter, placed on 06/18, and removed left internal jugular catheter on 06/20 PICC line, LEFT BASILIC vein, placed on 06/17 Suprapubic catheter, changed on 06/02/2020 Dripps: Fentanyl 200 No pressor DIET: Nepro 30 mL/hour DVT prophylaxis Lovenox 30 mg daily Disposition: social service worker [facility] CODE STATUS: Full code Patient's status discussed with patient's son on telephone. Critical time spent more than 81 minutes, including patient care, chart review and updating the family, excluding any procedures. Plan discussed with: Other (nurse) Date of Service: Jun 22, 2024 Billing Provider: MING FERNANDEZ MD Common Visit Codes: [id number] CARE 30-74 MIN MING FERNANDEZ MD Jun 22, 2024 20:51
[2024-06-23] VITALS (81 sets, daily range): BP systolic 38–193; BP diastolic 31–114; PULSE 78–133; RESP 9–32; TEMP 98.2–99; O2SAT 96–100
--- NOTE | 2024-06-23 05:01 | DVH ---
CHEST RADIOGRAPH Indication: vent Technique: Single frontal view of the chest was obtained COMPARISON: XY CHEST PORTABLE on DOS: 06/22/24, XY CHEST XRAY 1 VIEW on DOS: 06/21/24, XY CHEST XRAY 1 VIEW on DOS: 06/20/24 FINDINGS: Lines and Tubes: Tracheostomy, left PICC and right tunneled central venous catheter in satisfactory p osition. Lungs: Multifocal airspace disease. Pleura: No effusion. No pneumothorax. Cardiomediastinal contours: Cardiomegaly. Bones: Unremarkable IMPRESSION: Lines and tubes in satisfactory position. No significant interval change.
[2024-06-23 05:06] LABS: Basophils # (auto) 0 10 ^3/uL (0-0.2); Eosinophils # (auto) 0.2 10 ^3/uL (0-0.8); Hematocrit 24.9 % (41.0-53.0); Lymphocytes # (auto) 0.8 10 ^3/uL (0.4-5.4); Monocytes # (auto) 0.6 10 ^3/uL (0-1.3); Monocytes % (auto) 10.3 % (0.0-12.0); Neutrophils # (auto) 4.3 10 ^3/uL (1.6-8.6)
[2024-06-23 05:10] LABS: Basophils % (auto) 0.6 % (0.0-2.0); Eosinophils % (auto) 2.9 % (0.0-7.0); Hemoglobin 8.2 g/dL (13.5-17.5); Lymphocytes % (auto) 13.1 % (10.0-50.0); Mean Corpuscular Hemoglobin 31.2 pg (28.0-32.0); Mean Corpuscular Hgb Conc. 32.9 g/dL (32.0-36.0); Mean Corpuscular Volume 94.9 fL (80.0-100.0); Neutrophils % (auto) 73.1 % (37.0-80.0); Platelet Count (auto) 189 10^3/uL (140-450); Red Blood Cells 2.62 10^6/uL (4.5-5.90); Red Cell Distribution Width 16.3 % (11.8-14.3); White Blood Cell 5.8 10^3/uL (4.4-10.8)
[2024-06-23 05:22] LABS: Anion Gap 8 (5-15); Carbon Dioxide 28 mmol/L (20-31); Chloride 103 mmol/L (98-107); Sodium 139 mmol/L (136-145)
[2024-06-23 05:24] LABS: Calcium 9.3 mg/dL (8.7-10.4)
[2024-06-23 05:28] LABS: BUN/Creatinine Ratio 5.9 (10.0-20.0); Blood Urea Nitrogen 19 mg/dL (9-23); Glucose 94 mg/dL (74-106)
[2024-06-23 05:29] LABS: Magnesium 1.9 mg/dL (1.6-2.6)
[2024-06-23 05:31] LABS: Potassium 3.4 mmol/L (3.5-5.1)
[2024-06-23] MEDS: POTASSIUM EFFERVESENT TAB 25 MEQ GT ONE (07:15)
[2024-06-23] MEDS: MAGNESIUM SULFATE 1GM/100ML 100 ML IV ONE (07:57)
[2024-06-23] MEDS: levETIRAcetam 500 MG TAB PO SCH (09:07)
[2024-06-23] MEDS: METOPROLOL TARTRATE 25 MG TAB PO SCH (09:08)
[2024-06-23] MEDS: POTASSIUM CHL 20MEQ/100ML 100 ML IV ONE (10:36)
--- NOTE | 2024-06-23 18:45 | DVHPNRES ---
Progress Note Date Seen: Jun 23, 2024 Resident Creating Document: DYLAN GOMEZ RESDIENT Has the PT tested + for MRSA If YES, has PT been informed?: Yes Medical Necessity Reason Pt with a Central, PICC or Fol: Yes The following are medically ne: Central Line, Rubio Catheter Reason for rubio catheter: Strict I&O Subjective Review of Systems This is a 65-year-old male with past medical history of CHF, CKD, COPD, dyslipidemia, hypertension, CVA brought to the hospital with shortness of breaths and at the level of consciousness. Admitted and intubated on 05/28, extubated on 06/09 but reintubated on 06/10. Epigastric performed on 06/13, PEG tube placed on 06/15. Today, patient seen and examined at the bedside. Patient is sedated and on on mechanical ventilation. Review of systems could not obtain. Chest x-ray shows bilateral infiltration, improved in compared to previous film. Patient reports: No new complaints Changes from previous H/P or p: No Changes Objective vital signs Vital Sign Date Time Temp Pulse Resp B/P (MAP) Pulse Ox O2 Delivery O2 Flow Rate FiO2 06/23/24 17:45 92 24 145/68 (93) 100 06/23/24 16:00 30 06/23/24 16:00 Mechanical Ventilator+ 06/23/24 16:00 98.2 98.2 Total Intake and Output 06/22/24 06/22/24 06/23/24 15:00 23:00 07:00 Intake Total 50.0 ml 465.0 ml 350 ml Output Total 575 ml 50 ml Balance 50.0 ml -110.0 ml 300 ml medications Current Medications Medications Dose Ordered Sig/[place] Route Start Time Stop Time Status Last Admin Dose Admin Albuterol 2.5 mg Q6HPRN PRN NEB 05/29/24 00:00 06/23/24 12:07 2.5 MG Enteral Nutritional Formula 1,000 ml 30ML/HR GT 05/30/24 11:00 06/22/24 21:55 1,000 ML Diagnostic Test (Pha) 1 strip Q6HR 06/02/24 12:00 06/23/24 17:37 1 STRIP Dextrose 50 ml UD PRN IV 06/02/24 10:45 06/19/24 04:55 50 ML Heparin Sodium (Porcine) 4,000 units PRN PRN IV 06/07/24 09:00 Hydralazine HCl 100 mg Q8HR PO 06/07/24 14:00 06/23/24 13:38 100 MG Acetylcysteine 100 mg Q6HR NEB 06/09/24 18:00 06/23/24 12:08 100 MG Amlodipine Besylate 10 mg DAILY PO 06/10/24 10:00 06/23/24 09:08 10 MG Enoxaparin Sodium 40 mg DAILY SC 06/10/24 10:00 UNV Hydralazine HCl 20 mg Q2HPRN PRN IV 06/15/24 14:00 06/23/24 06:17 20 MG Fentanyl Citrate 250 ml @ 2.5 mls/hr Q24H IV 06/15/24 12:00 06/22/24 03:40 10 MLS/HR Enoxaparin Sodium 40 mg DAILY SC 06/17/24 10:00 UNV Enoxaparin Sodium 30 mg DAILY SC 06/17/24 10:00 06/23/24 09:08 30 MG Epoetin Calin-epbx 10,000 unit TUTHSA SC 06/17/24 12:00 06/21/24 08:48 10,000 UNIT Sodium Chloride 10 ml QSHIFT@10,22 IV 06/17/24 22:00 06/23/24 09:09 10 ML Lactulose 30 ml BID PEG 06/19/24 22:00 06/23/24 09:07 30 ML Pantoprazole Sodium 40 mg DAILY@0600 PO 06/21/24 10:00 06/23/24 06:15 40 MG Acetaminophen 650 mg Q6HP PRN GT 06/20/24 11:30 Metoprolol Tartrate 25 mg BID PO 06/23/24 10:00 06/23/24 09:08 25 MG Levetiracetam 500 mg DAILY PO 06/23/24 08:00 06/23/24 09:07 500 MG Examination General: RASS -4, afebrile, mucosae are moist Cardiovascular: Normal S1 and S2. No murmurs, gallops or rubs Respiratory: Bilateral crackles Abdomen: Soft, nontender, no organomegaly, normal bowel sounds MSK/skin: Right lower limb at the level of knees amputated, left lower limb 2+ pedal edema Neurological: Orientation cannot be assessed. Pupils are isocoric and reactive laboratory and microbiology Laboratory Tests 06/23/24 04:47 Test 06/23/24 04:47 Range/Units Serum Glucose 94 74-106 mg/dL Microbiology Date/Time Source Procedure Growth Status 06/11/24 16:06 Bronchial Washings Gram Stain - Final Complete 06/11/24 16:06 Respiratory Culture - Final Acinetobacter baumannii Pseudomonas aeruginosa Complete 06/10/24 04:52 Trachea Gram Stain - Final Resulted 06/10/24 04:52 Respiratory Culture - Preliminary Pseudomonas aeruginosa Acinetobacter baumannii MDRO Acinetobacter baumannii Resulted 06/09/24 18:54 Blood Blood Culture - Final NO GROWTH AFTER 5 DAYS OF INCUBATION. Complete 05/30/24 11:45 Pleural Fluid Gram Stain - Final Complete 05/30/24 11:45 Pleural Fluid Body Fluid Culture - Final Complete 05/28/24 22:36 Urine - Catheterized Urine Culture - Final Enterobacter cloacae Escherichia coli Enterococcus faecalis - VRE Complete Labs and/or images reviewed: Labs reviewed by me, Image(s) reviewed by me Problem List/Assessment/Plan Problem List/Assessment/Plan 68-year-old male presents with past medical history of Chronic kidney disease, CHF, COPD, dyslipidemia, hypertension, CVA, liver disease broght to the Hospital with ALOC and SOB. Admitted and intubated on 05/28/2024 and underwent tracheostomy on 06/13. PEG tube, placed on 06/15 NEURO: Acute metabolic encephalopathy likely due to sepsis Patient is sedated and on mechanical ventilation, RASS scores -4 History of seizure during last admission(1 month back) used Keppra for 1 week Consulted neurology, recommended Keppra, changed from 500 mg b.i.d. to 500 mg once a day EEG shows abnormal EEG recording consistent with the presence of a diffuse nonspecific encephalopathic state CARDIOVASCULAR: Hypertension Continue home medication, injection hydralazine 10 mg q.6 hours as needed Continue hydralazine 100 mg t.i.d. Started metoprolol 25 mg b.i.d., for tachycardia and hypertension PULMONARY: Acute Hypoxic Respiratory Failure likely due to pneumonia Septic shock likely due to pneumonia, improved Pneumonia likely due to MRSA and Enterobacter cloacae Patient is sedated and on the mechanical ventilation with a setting of (VT 500, RR 18, peep 5, FiO2 30%) CT scan shows [id number] left pleural effusion Chest ultrasound shows left side pleural effusion MRSA nares screening, COVID-19 and flu are negative Bronchoscopy performed on 06/11, there was some thin mucus secretion on bilateral side, bronchial lavage of right lower lobe and left lower lobe was performed, and the culture results shows Pseudomonas aeruginosa and Enterobacter baumanni, MDR; ID has been consulted Sputum culture from bronchoalveolar lavage from 05/24/24 shows MRSA, Enterobacter cloacae Blood culture from the 06/02/24 shows Staphylococcus epidermidis , Staph hominis Repeat culture from 06/09/2024 shows no growth Stopped in linezolid, given for 11 days, discontinued meropenem, started on 06/08 and given for 12 days ABGs shows respiratory alkalosis with no metabolic compensation Chest x-ray shows bilateral infiltrates duration, worsening in compared to yesterday Continue N-acetylcysteine Breathing treatment q.6 hours p.r.n. Trach collar trial, 1 hour b.i.d. as tolerated GI GI ppx: Protonix b.i.d. Hepatitis-C virus antibody positive Repeat stool occult blood test is negative CT abdominopelvic without contrast shows no evidence of intra-abdominal hemorrhage Tracheostomy is performed on 06/13 PEG tube is placed on 06/15 Bowel regimen: Lactulose 30 mL b.i.d. : FROYLAN on CKD grade 4 Nephrology on the board, hemodialysis performed yesterday UTI, urinalysis shows UTI picture Urine culture from 05/28/2024 shows Enterobacter, E coli, Enterococcus faecalis Status post limb amputation, right lower limb, above the knee likely due to PAD Decubitus ulcer There are multiple grade 3-4 sacral ulcers position changing every 2 hours and dressing HEME Severe anemia, transfused 3 pack of red blood cells current HB is 8.2 ID: Sputum culture from bronchoalveolar lavage from 05/24/24 shows MRSA, Enterobacter cloacae Blood culture from the 06/02/24 shows Staphylococcus epidermidis , Staph hominis Repeat culture from 06/09/2024 shows no growth culture results from BAL from 06/11 shows Pseudomonas aeruginosa and Enterobacter baumanni, MDR ID is on the board, recommended to stop meropenem, as it does not cover these MDR and considering overall clinical picture it seems like the MDRO is colonization, however if he spikes continuous fever, or has increased workup breathing or worsening of hypoxia denude consider him starting on Ricarbio OR Fetroja + Tigecycline to cover these MDRO Discontinued meropenem, used for 12 days Mild fever, Tylenol as needed SKIN Possible keloid There is a growth on the left shoulder, per son, lesion has been present for several years Follow up on outpatient basis Metabolic: Hypernatremia, improved Hypokalemia, supplemented Hyperkalemia, improved Mild hyponatremia, monitoring Hypoglycemic episodes, improved Hypomagnesemia, supplemented LINES/DRAINS/ACCESS: ETT, intubated on 05/28/2024 and tracheostomy performed on 06/11, PEG tube placed on 06/15 IV access Right subclavian tunneled catheter, placed on 06/18 PICC line, LEFT BASILIC vein, placed on 06/17 Suprapubic catheter, changed on 06/02/2020 Dripps: Fentanyl 50 No pressor DIET: Nepro 30 mL/hour DVT prophylaxis Lovenox 30 mg daily Disposition: healthcare social worker consulted for transfer to the [facility] CODE STATUS: Full code Patient's status discussed with patient's son on telephone. Critical time spent more than 84 minutes, including patient care, chart review and updating the family, excluding any procedures. Case discussed with Dr. Isabel Plan discussed with: Patient, Other (Son and RN) My Orders My Orders Orders - DYLAN GOMEZ RESDILONNIE Procedure Category Date Status Time Metoprolol Tartrate PHA 06/23/24 In Process Tablet (Lopressor Ta 10:00 Levetiracetam Tablet PHA 06/23/24 In Process (Keppra Tablet) 08:00 Comprehensive LAB 06/24/24 Verified Metabolic Panel 04:00 Complete Blood Count LAB 06/24/24 Verified 04:00 Chest Xray 1 View XY 06/24/24 Logged 04:00 Abg W/ Co-Ox RT 06/24/24 Logged 04:00 Dietary Evaluation Review Comments: 1) If GI is assessible consider Jevity 1.2 @ 60 ml/hr x24 hrs goal rate as tolerated 2) If pt remains NPO >7 days consider TPN to meet at least 75% of estimated needs 3) Advance pt diet when medically feasible to a Cardiac/Renal Specific K2,2gmNA,low phos,60g Pro diet modified per J[employer] INS[employer]OR recommendations 4) Continue current plan of care Expected Outcomes/Goals: 1) Pt to receive adequate nutrition support 2) Pt diet to advance CC Plasma Assessment Blood Product Administration S: [id number] Date of Service: Jun 23, 2024 Billing Provider: HOLGER ISABEL MD Common Visit Codes: [id number] CARE 30-74 MIN, [id number] CARE-EACH +30MIN [facility] Jun 23, 2024 18:45 HOLGER ISABEL MD Jun 24, 2024 16:37
--- NOTE | 2024-06-23 21:42 | DVHPN2 ---
Progress Note Date Seen: Jun 23, 2024 Has the PT tested + for MRSA If YES, has PT been informed?: Yes Medical Necessity Reason Pt with a Central, PICC or Fol: Yes The following are medically ne: Central Line, Rubio Catheter Reason for rubio catheter: Strict I&O Subjective Patient reports: Other (remains in isolation) Objective vital signs Vital Sign Date Time Temp Pulse Resp B/P (MAP) Pulse Ox O2 Delivery O2 Flow Rate FiO2 06/23/24 20:00 26 99 Mechanical Ventilator+ 8 35 35 06/23/24 20:00 94 06/23/24 18:45 149/63 (91) 06/23/24 16:00 98.2 98.2 Total Intake and Output 06/22/24 06/22/24 06/23/24 15:00 23:00 07:00 Intake Total 50.0 ml 465.0 ml 350 ml Output Total 575 ml 50 ml Balance 50.0 ml -110.0 ml 300 ml medications Current Medications Medications Dose Ordered Sig/[place] Route Start Time Stop Time Status Last Admin Dose Admin Albuterol 2.5 mg Q6HPRN PRN NEB 05/29/24 00:00 06/23/24 18:19 2.5 MG Enteral Nutritional Formula 1,000 ml 30ML/HR GT 05/30/24 11:00 06/22/24 21:55 1,000 ML Diagnostic Test (Pha) 1 strip Q6HR 06/02/24 12:00 06/23/24 17:37 1 STRIP Dextrose 50 ml UD PRN IV 06/02/24 10:45 06/19/24 04:55 50 ML Heparin Sodium (Porcine) 4,000 units PRN PRN IV 06/07/24 09:00 Hydralazine HCl 100 mg Q8HR PO 06/07/24 14:00 06/23/24 13:38 100 MG Acetylcysteine 100 mg Q6HR NEB 06/09/24 18:00 06/23/24 18:19 100 MG Amlodipine Besylate 10 mg DAILY PO 06/10/24 10:00 06/23/24 09:08 10 MG Enoxaparin Sodium 40 mg DAILY SC 06/10/24 10:00 UNV Hydralazine HCl 20 mg Q2HPRN PRN IV 06/15/24 14:00 06/23/24 06:17 20 MG Fentanyl Citrate 250 ml @ 2.5 mls/hr Q24H IV 06/15/24 12:00 06/22/24 03:40 10 MLS/HR Enoxaparin Sodium 40 mg DAILY SC 06/17/24 10:00 UNV Enoxaparin Sodium 30 mg DAILY SC 06/17/24 10:00 06/23/24 09:08 30 MG Epoetin Calin-epbx 10,000 unit TUTHSA SC 06/17/24 12:00 06/21/24 08:48 10,000 UNIT Sodium Chloride 10 ml QSHIFT@, IV 06/17/24 22:00 06/23/24 09:09 10 ML Lactulose 30 ml BID PEG 06/19/24 22:00 06/23/24 09:07 30 ML Pantoprazole Sodium 40 mg DAILY@0600 PO 06/21/24 10:00 06/23/24 06:15 40 MG Acetaminophen 650 mg Q6HP PRN GT 06/20/24 11:30 Metoprolol Tartrate 25 mg BID PO 06/23/24 10:00 06/23/24 09:08 25 MG Levetiracetam 500 mg DAILY PO 06/23/24 08:00 06/23/24 09:07 500 MG laboratory and microbiology Laboratory Tests 06/23/24 04:47 Test 06/23/24 04:47 Range/Units Serum Glucose 94 74-106 mg/dL Microbiology Date/Time Source Procedure Growth Status 06/11/24 16:06 Bronchial Washings Gram Stain - Final Complete 06/11/24 16:06 Respiratory Culture - Final Acinetobacter baumannii Pseudomonas aeruginosa Complete 06/10/24 04:52 Trachea Gram Stain - Final Resulted 06/10/24 04:52 Respiratory Culture - Preliminary Pseudomonas aeruginosa Acinetobacter baumannii MDRO Acinetobacter baumannii Resulted 06/09/24 18:54 Blood Blood Culture - Final NO GROWTH AFTER 5 DAYS OF INCUBATION. Complete 05/30/24 11:45 Pleural Fluid Gram Stain - Final Complete 05/30/24 11:45 Pleural Fluid Body Fluid Culture - Final Complete 05/28/24 22:36 Urine - Catheterized Urine Culture - Final Enterobacter cloacae Escherichia coli Enterococcus faecalis - VRE Complete Problem List/Assessment/Plan Problem List/Assessment/Plan Acute kidney injury on chronic kidney disease stage 4 -> likely septic ATN needing HD Acute respiratory failure on vent Anemia suspected due to low blood loss s/p PRBC Hypernatremia Hypokalemia Metabolic acidosis Chronic urinary retention sepsis due to bacteremia recs hd 06/24 Status post tracheostomy/peg Epogen with dialysis Plan discussed with: Other Dietary Evaluation Review Comments: 1) If GI is assessible consider Jevity 1.2 @ 60 ml/hr x24 hrs goal rate as tolerated 2) If pt remains NPO >7 days consider TPN to meet at least 75% of estimated needs 3) Advance pt diet when medically feasible to a Cardiac/Renal Specific K2,2gmNA,low phos,60g Pro diet modified per [employer]ING [employer]ER recommendations 4) Continue current plan of care Expected Outcomes/Goals: 1) Pt to receive adequate nutrition support 2) Pt diet to advance CC Plasma Assessment Blood Product Administration S: [id number] SUKI MERINO MD Jun 23, 2024 21:42
[2024-06-24] VITALS (52 sets, daily range): BP systolic 127–184; BP diastolic 64–95; PULSE 77–97; RESP 11–31; TEMP 98.2–99.8; O2SAT 95–100
--- NOTE | 2024-06-24 05:07 | DVH ---
CHEST RADIOGRAPH Indication: Pneumonia Technique: Single frontal view of the chest was obtained COMPARISON: XY CHEST PORTABLE on DOS: 06/23/24, XY CHEST PORTABLE on DOS: 06/22/24, XY CHEST XRAY 1 VIE W on DOS: 06/21/24, XY CHEST PORTABLE on DOS: 06/23/24 FINDINGS: Lines and Tubes: Tracheostomy, left PICC and right tunneled central venous catheter in satisfactory p osition. Lungs: Multifocal airspace disease. Pleura: No effusion. No pneumothorax. Cardiomediastinal contours: Cardiomegaly. Bones: Unremarkable IMPRESSION: Lines and tubes in satisfactory position. No significant interval change.
[2024-06-24 05:24] LABS: Basophils # (auto) 0 10 ^3/uL (0-0.2); Basophils % (auto) 0.9 % (0.0-2.0); Eosinophils # (auto) 0.2 10 ^3/uL (0-0.8); Hemoglobin 7.9 g/dL (13.5-17.5); Monocytes # (auto) 0.5 10 ^3/uL (0-1.3); Neutrophils # (auto) 3.4 10 ^3/uL (1.6-8.6)
[2024-06-24 05:27] LABS: Eosinophils % (auto) 3.6 % (0.0-7.0); Hematocrit 23.7 % (41.0-53.0); Lymphocytes % (auto) 18.9 % (10.0-50.0); Mean Corpuscular Hemoglobin 31.6 pg (28.0-32.0); Mean Corpuscular Hgb Conc. 33.4 g/dL (32.0-36.0); Mean Corpuscular Volume 94.6 fL (80.0-100.0); Monocytes % (auto) 9.2 % (0.0-12.0); Neutrophils % (auto) 67.4 % (37.0-80.0); Platelet Count (auto) 191 10^3/uL (140-450); Red Cell Distribution Width 16.7 % (11.8-14.3)
[2024-06-24 05:35] LABS: Anion Gap 5 (5-15); BUN/Creatinine Ratio 6.8 (10.0-20.0); Calcium 9.4 mg/dL (8.7-10.4); Carbon Dioxide 29 mmol/L (20-31); Chloride 105 mmol/L (98-107); Glucose 92 mg/dL (74-106); Potassium 3.6 mmol/L (3.5-5.1); Sodium 139 mmol/L (136-145)
[2024-06-24 05:36] LABS: Aspartate Aminotransferase 21 U/L (13-40); Total Protein 5.7 g/dL (5.7-8.2)
[2024-06-24 05:51] LABS: Alanine Aminotransferase < 9 U/L (7-40); Alkaline Phosphatase 124 U/L (46-116); Blood Urea Nitrogen 26 mg/dL (9-23)
[2024-06-24 05:52] LABS: Albumin 2.3 g/dL (3.2-4.8); Bilirubin, Total < 0.2 mg/dL (0.2-1.0)
[2024-06-24] MEDS: ACETAMINOPHEN 650 mg PER 20.3 mL UD GT PRN (09:52)
[2024-06-24 09:59] LABS: Base Excess 2.5 mmol/L (-2.0-3.0)
[2024-06-24] MEDS: fentaNYL Drip 2500mCg/250mlNS 250 ML IV SCH (10:45)
[2024-06-24] MEDS: SODIUM CHL 0.9% 1000 ML BAG XX ONE (11:30)
--- NOTE | 2024-06-24 18:32 | DVHPNRES ---
Progress Note Date Seen: Jun 24, 2024 Resident Creating Document: DYLAN GOMEZ RESDIENT Has the PT tested + for MRSA If YES, has PT been informed?: Yes Medical Necessity Reason Pt with a Central, PICC or Fol: Yes The following are medically ne: Central Line, Rubio Catheter Reason for rubio catheter: Strict I&O Subjective Review of Systems This is a 65-year-old male with past medical history of CHF, CKD, COPD, dyslipidemia, hypertension, CVA brought to the hospital with shortness of breaths and at the level of consciousness. Admitted and intubated on 05/28, extubated on 06/09 but reintubated on 06/10. Epigastric performed on 06/13, PEG tube placed on 06/15. Today, patient seen and examined at the bedside. Patient is sedated and on on mechanical ventilation. Review of systems could not obtain. Chest x-ray shows bilateral infiltration, worsened in compared to previous film. Patient reports: No new complaints, Feels better Changes from previous H/P or p: No Changes Objective vital signs Vital Sign Date Time Temp Pulse Resp B/P (MAP) Pulse Ox O2 Delivery O2 Flow Rate FiO2 06/24/24 18:00 13 97 Mechanical Ventilator+ 30 30 06/24/24 17:00 98.4 85 98.4 06/24/24 08:00 8 Total Intake and Output 06/23/24 06/23/24 06/24/24 14:59 22:59 06:59 Intake Total 27.5 ml 362.5 ml 345 ml Output Total 160 ml 140 ml Balance 27.5 ml 202.5 ml 205 ml medications Current Medications Medications Dose Ordered Sig/[place] Route Start Time Stop Time Status Last Admin Dose Admin Albuterol 2.5 mg Q6HPRN PRN NEB 05/29/24 00:00 06/24/24 13:21 2.5 MG Enteral Nutritional Formula 1,000 ml 30ML/HR GT 05/30/24 11:00 06/23/24 21:54 1,000 ML Diagnostic Test (Pha) 1 strip Q6HR 06/02/24 12:00 06/24/24 11:25 1 STRIP Dextrose 50 ml UD PRN IV 06/02/24 10:45 06/19/24 04:55 50 ML Heparin Sodium (Porcine) 4,000 units PRN PRN IV 06/07/24 09:00 Hydralazine HCl 100 mg Q8HR PO 06/07/24 14:00 06/24/24 05:59 100 MG Acetylcysteine 100 mg Q6HR NEB 06/09/24 18:00 06/24/24 13:22 100 MG Amlodipine Besylate 10 mg DAILY PO 06/10/24 10:00 06/24/24 11:02 10 MG Enoxaparin Sodium 40 mg DAILY SC 06/10/24 10:00 UNV Enoxaparin Sodium 40 mg DAILY SC 06/17/24 10:00 UNV Enoxaparin Sodium 30 mg DAILY SC 06/17/24 10:00 06/24/24 09:40 30 MG Epoetin Calin-epbx 10,000 unit TUTHSA SC 06/17/24 12:00 06/24/24 11:02 10,000 UNIT Sodium Chloride 10 ml QSHIFT@ IV 06/17/24 22:00 06/24/24 09:37 10 ML Lactulose 30 ml BID PEG 06/19/24 22:00 06/24/24 09:37 30 ML Pantoprazole Sodium 40 mg DAILY@0600 PO 06/21/24 10:00 06/23/24 06:15 40 MG Acetaminophen 650 mg Q6HP PRN GT 06/20/24 11:30 06/24/24 09:52 650 MG Metoprolol Tartrate 25 mg BID PO 06/23/24 10:00 06/24/24 09:38 25 MG Levetiracetam 500 mg DAILY PO 06/23/24 08:00 06/24/24 09:37 500 MG Fentanyl Citrate 250 ml @ 2.5 mls/hr Q24H IV 06/24/24 10:45 Hydralazine HCl 10 mg Q4HP PRN IV 06/24/24 16:45 laboratory and microbiology Laboratory Tests 06/24/24 04:53 Test 06/24/24 04:53 Range/Units Serum Glucose 92 74-106 mg/dL Microbiology Date/Time Source Procedure Growth Status 06/11/24 16:06 Bronchial Washings Gram Stain - Final Complete 06/11/24 16:06 Respiratory Culture - Final Acinetobacter baumannii Pseudomonas aeruginosa Complete 06/10/24 04:52 Trachea Gram Stain - Final Resulted 06/10/24 04:52 Respiratory Culture - Preliminary Pseudomonas aeruginosa Acinetobacter baumannii MDRO Acinetobacter baumannii Resulted 06/09/24 18:54 Blood Blood Culture - Final NO GROWTH AFTER 5 DAYS OF INCUBATION. Complete 05/30/24 11:45 Pleural Fluid Gram Stain - Final Complete 05/30/24 11:45 Pleural Fluid Body Fluid Culture - Final Complete 05/28/24 22:36 Urine - Catheterized Urine Culture - Final Enterobacter cloacae Escherichia coli Enterococcus faecalis - VRE Complete Labs and/or images reviewed: Labs reviewed by me, Image(s) reviewed by me Problem List/Assessment/Plan Problem List/Assessment/Plan 68-year-old male presents with past medical history of Chronic kidney disease, CHF, COPD, dyslipidemia, hypertension, CVA, liver disease broght to the Hospital with ALOC and SOB. Admitted and intubated on 05/28/2024 and underwent tracheostomy on 06/13. PEG tube, placed on 06/15 NEURO: Acute metabolic encephalopathy likely due to sepsis Patient is sedated and on mechanical ventilation, RASS scores -4 History of seizure during last admission(1 month back) used Keppra for 1 week Consulted neurology, recommended Keppra, changed from 500 mg b.i.d. to 500 mg once a day EEG shows abnormal EEG recording consistent with the presence of a diffuse nonspecific encephalopathic state CARDIOVASCULAR: Hypertension Continue home medication, injection hydralazine 10 mg q.6 hours as needed Continue hydralazine 100 mg t.i.d. Continue metoprolol 25 mg b.i.d., for tachycardia and hypertension PULMONARY: Acute Hypoxic Respiratory Failure likely due to pneumonia Septic shock likely due to pneumonia, improved Pneumonia likely due to MRSA and Enterobacter cloacae Patient is sedated and on the mechanical ventilation with a setting of (VT 500, RR 18, peep 5, FiO2 30%) CT scan shows [id number] left pleural effusion Chest ultrasound shows left side pleural effusion MRSA nares screening, COVID-19 and flu are negative Bronchoscopy performed on 06/11, there was some thin mucus secretion on bilateral side, bronchial lavage of right lower lobe and left lower lobe was performed, and the culture results shows Pseudomonas aeruginosa and Enterobacter baumanni, MDR; ID has been consulted Sputum culture from bronchoalveolar lavage from 05/24/24 shows MRSA, Enterobacter cloacae Blood culture from the 06/02/24 shows Staphylococcus epidermidis , Staph hominis Repeat culture from 06/09/2024 shows no growth Stopped in linezolid, given for 11 days, discontinued meropenem, started on 06/08 and given for 12 days ABGs shows respiratory alkalosis with no metabolic compensation Chest x-ray shows bilateral infiltrates duration, worsening in compared to yesterday Continue N-acetylcysteine Breathing treatment q.6 hours p.r.n. Trach collar trial, 1 hour b.i.d. as tolerated, today was tried on 10 lit of O2 and FiO2, and the patient developed tachypnea during the trial GI GI ppx: Protonix b.i.d. Hepatitis-C virus antibody positive Repeat stool occult blood test is negative CT abdominopelvic without contrast shows no evidence of intra-abdominal hemorrhage Tracheostomy is performed on 06/13 PEG tube is placed on 06/15 Bowel regimen: Lactulose 30 mL b.i.d. : FROYLAN on CKD grade 4 Nephrology on the board, hemodialysis performed today UTI, urinalysis shows UTI picture Urine culture from 05/28/2024 shows Enterobacter, E coli, Enterococcus faecalis Status post limb amputation, right lower limb, above the knee likely due to PAD Decubitus ulcer There are multiple grade 3-4 sacral ulcers position changing every 2 hours and dressing HEME Severe anemia, transfused 3 pack of red blood cells current HB is 8.2 ID: Sputum culture from bronchoalveolar lavage from 05/24/24 shows MRSA, Enterobacter cloacae Blood culture from the 06/02/24 shows Staphylococcus epidermidis , Staph hominis Repeat culture from 06/09/2024 shows no growth culture results from BAL from 06/11 shows Pseudomonas aeruginosa and Enterobacter baumanni, MDR ID is on the board, recommended to stop meropenem, as it does not cover these MDR and considering overall clinical picture it seems like the MDRO is colonization, however if he spikes continuous fever, or has increased workup breathing or worsening of hypoxia denude consider him starting on Ricarbio OR Fetroja + Tigecycline to cover these MDRO Discontinued meropenem, used for 12 days Mild fever, Tylenol as needed SKIN Possible keloid There is a growth on the left shoulder, per son, lesion has been present for several years Follow up on outpatient basis Metabolic: Hypernatremia, improved Hypokalemia, supplemented Hyperkalemia, improved Mild hyponatremia, monitoring Hypoglycemic episodes, improved Hypomagnesemia, supplemented LINES/DRAINS/ACCESS: ETT, intubated on 05/28/2024 and tracheostomy performed on 06/11, PEG tube placed on 06/15 IV access Right subclavian tunneled catheter, placed on 06/18 PICC line, LEFT BASILIC vein, placed on 06/17 Suprapubic catheter, changed on 06/02/2020 Dripps: Fentanyl 50 No pressor DIET: Nepro 30 mL/hour DVT prophylaxis Lovenox 30 mg daily Disposition: social worker school consulted for transfer to the [facility] CODE STATUS: Full code Patient's status discussed with patient's son on bedside. Critical time spent more than 63 minutes, including patient care, chart review and updating the family, excluding any procedures. Case discussed with Dr. Isabel Plan discussed with: Patient, Son, Other (RN) My Orders My Orders Orders - DYLAN GOMEZ Procedure Category Date Status Time Fentanyl Drip PHA 06/24/24 In Process 2500mcg/250mlns 10:45 Dietary Evaluation Review Comments: 1) If GI is assessible consider Jevity 1.2 @ 60 ml/hr x24 hrs goal rate as tolerated 2) If pt remains NPO >7 days consider TPN to meet at least 75% of estimated needs 3) Advance pt diet when medically feasible to a Cardiac/Renal Specific K2,2gmNA,low phos,60g Pro diet modified per TECHNICAL RESEARCH SCIENTIST recommendations 4) Continue current plan of care Expected Outcomes/Goals: 1) Pt to receive adequate nutrition support 2) Pt diet to advance CC Plasma Assessment Blood Product Administration S: [id number] Date of Service: Jun 24, 2024 Billing Provider: HOLGER ISABEL MD Common Visit Codes: [id number] CARE 30-74 MIN DYLAN GOMEZ RESDIENT Jun 24, 2024 18:32 HOLGER ISABEL MD Jun 25, 2024 11:47
[2024-06-24 20:24] LABS: Potassium 3.6 mmol/L (3.5-5.1)
[2024-06-24 20:31] LABS: Magnesium 1.9 mg/dL (1.6-2.6)
--- NOTE | 2024-06-24 21:09 | DVHPN2 ---
Progress Note Date Seen: Jun 24, 2024 Has the PT tested + for MRSA If YES, has PT been informed?: Yes Medical Necessity Reason Pt with a Central, PICC or Fol: Yes The following are medically ne: Central Line, Rubio Catheter Reason for rubio catheter: Strict I&O Subjective Patient reports: Other (events noted,,pus from dialysis catheter ) Review of Systems: Deferred Objective vital signs Vital Sign Date Time Temp Pulse Resp B/P (MAP) Pulse Ox O2 Delivery O2 Flow Rate FiO2 06/24/24 20:00 90 18 97 Trach Collar 8 N/A 06/24/24 20:00 98.7 162/84 (110) 98.7 Total Intake and Output 06/23/24 06/23/24 06/24/24 15:00 23:00 07:00 Intake Total 30.0 ml 360 ml 345 ml Output Total 160 ml 140 ml Balance 30.0 ml 200 ml 205 ml medications Current Medications Medications Dose Ordered Sig/[place] Route Start Time Stop Time Status Last Admin Dose Admin Albuterol 2.5 mg Q6HPRN PRN NEB 05/29/24 00:00 06/24/24 18:29 2.5 MG Enteral Nutritional Formula 1,000 ml 30ML/HR GT 05/30/24 11:00 06/23/24 21:54 1,000 ML Diagnostic Test (Pha) 1 strip Q6HR 06/02/24 12:00 06/24/24 18:24 1 STRIP Dextrose 50 ml UD PRN IV 06/02/24 10:45 06/19/24 04:55 50 ML Heparin Sodium (Porcine) 4,000 units PRN PRN IV 06/07/24 09:00 Hydralazine HCl 100 mg Q8HR PO 06/07/24 14:00 06/24/24 05:59 100 MG Acetylcysteine 100 mg Q6HR NEB 06/09/24 18:00 06/24/24 18:29 100 MG Amlodipine Besylate 10 mg DAILY PO 06/10/24 10:00 06/24/24 11:02 10 MG Enoxaparin Sodium 40 mg DAILY SC 06/10/24 10:00 UNV Enoxaparin Sodium 40 mg DAILY SC 06/17/24 10:00 UNV Enoxaparin Sodium 30 mg DAILY SC 06/17/24 10:00 06/24/24 09:40 30 MG Epoetin Calin-epbx 10,000 unit TUTHSA SC 06/17/24 12:00 06/24/24 11:02 10,000 UNIT Sodium Chloride 10 ml QSHIFT@10, IV 06/17/24 22:00 06/24/24 09:37 10 ML Lactulose 30 ml BID PEG 06/19/24 22:00 06/24/24 09:37 30 ML Pantoprazole Sodium 40 mg DAILY@0600 PO 06/21/24 10:00 06/23/24 06:15 40 MG Acetaminophen 650 mg Q6HP PRN GT 06/20/24 11:30 06/24/24 09:52 650 MG Metoprolol Tartrate 25 mg BID PO 06/23/24 10:00 06/24/24 09:38 25 MG Levetiracetam 500 mg DAILY PO 06/23/24 08:00 06/24/24 09:37 500 MG Fentanyl Citrate 250 ml @ 2.5 mls/hr Q24H IV 06/24/24 10:45 Hydralazine HCl 10 mg Q4HP PRN IV 06/24/24 16:45 Examination: LUNGS:Abnormal, MSK:Abnormal, SKIN:Abnormal, NEURO:Abnormal laboratory and microbiology Laboratory Tests 06/24/24 20:02 06/24/24 04:53 Test 06/24/24 04:53 Range/Units Serum Glucose 92 74-106 mg/dL Microbiology Date/Time Source Procedure Growth Status 06/11/24 16:06 Bronchial Washings Gram Stain - Final Complete 06/11/24 16:06 Respiratory Culture - Final Acinetobacter baumannii Pseudomonas aeruginosa Complete 06/10/24 04:52 Trachea Gram Stain - Final Resulted 06/10/24 04:52 Respiratory Culture - Preliminary Pseudomonas aeruginosa Acinetobacter baumannii MDRO Acinetobacter baumannii Resulted 06/09/24 18:54 Blood Blood Culture - Final NO GROWTH AFTER 5 DAYS OF INCUBATION. Complete 05/30/24 11:45 Pleural Fluid Gram Stain - Final Complete 05/30/24 11:45 Pleural Fluid Body Fluid Culture - Final Complete 05/28/24 22:36 Urine - Catheterized Urine Culture - Final Enterobacter cloacae Escherichia coli Enterococcus faecalis - VRE Complete Problem List/Assessment/Plan Problem List/Assessment/Plan Acute kidney injury on chronic kidney disease stage 4 -> likely septic ATN needing HD Acute respiratory failure on vent Anemia suspected due to low blood loss s/p PRBC Hypernatremia Hypokalemia Metabolic acidosis Chronic urinary retention sepsis due to bacteremia recs hd 06/24 uf 2.5L pus coming from Tunneled catheter--need removal --IR consult--swab sent ID eval -pls reconsult ID Status post tracheostomy/peg Epogen with dialysis Plan discussed with: Other My Orders My Orders Orders - SUKI MERINO MD Procedure Category Date Status Time Hemodialysis Orders ORDERS 06/24/24 Transmitted 11:22 Acute Hepatitis Panel LAB 06/24/24 In Process 11:22 * Radiologist Consult CONS 06/24/24 Transmitted 14:33 Dietary Evaluation Review Comments: 1) If GI is assessible consider Jevity 1.2 @ 60 ml/hr x24 hrs goal rate as tolerated 2) If pt remains NPO >7 days consider TPN to meet at least 75% of estimated needs 3) Advance pt diet when medically feasible to a Cardiac/Renal Specific K2,2gmNA,low phos,60g Pro diet modified per LEAD APPLICATION ARCHITECT recommendations 4) Continue current plan of care Expected Outcomes/Goals: 1) Pt to receive adequate nutrition support 2) Pt diet to advance CC Plasma Assessment Blood Product Administration S: [id number] SUKI MERINO MD Jun 24, 2024 21:09
[2024-06-25] VITALS (44 sets, daily range): BP systolic 146–183; BP diastolic 59–84; PULSE 80–97; RESP 8–23; TEMP 97.8–100.2; O2SAT 92–100
--- NOTE | 2024-06-25 04:58 | DVH ---
CHEST RADIOGRAPH Indication: Pneumonia Technique: Single frontal view of the chest was obtained COMPARISON: XY CHEST XRAY 1 VIEW on DOS: 06/24/24, XY CHEST PORTABLE on DOS: 06/23/24, XY CHEST PORTAB LE on DOS: 06/22/24, XY CHEST XRAY 1 VIEW on DOS: 06/24/24 FINDINGS: Lines and Tubes: Tracheostomy, left PICC and right tunneled central venous catheter in satisfactory p osition. Lungs: Multifocal airspace disease. Pleura: No effusion. No pneumothorax. Cardiomediastinal contours: Cardiomegaly. Bones: Unremarkable IMPRESSION: Lines and tubes in satisfactory position. No significant interval change.
[2024-06-25 05:00] LABS: Basophils # (auto) 0.1 10 ^3/uL (0-0.2); Basophils % (auto) 1.1 % (0.0-2.0); Eosinophils # (auto) 0.1 10 ^3/uL (0-0.8); Eosinophils % (auto) 1.6 % (0.0-7.0); Hematocrit 23.5 % (41.0-53.0); Hemoglobin 7.6 g/dL (13.5-17.5); Mean Corpuscular Hemoglobin 31.2 pg (28.0-32.0); Mean Corpuscular Hgb Conc. 32.2 g/dL (32.0-36.0); Mean Corpuscular Volume 96.9 fL (80.0-100.0); Monocytes # (auto) 0.5 10 ^3/uL (0-1.3); Monocytes % (auto) 10.5 % (0.0-12.0); Neutrophils # (auto) 3.2 10 ^3/uL (1.6-8.6); Neutrophils % (auto) 66.8 % (37.0-80.0); Platelet Count (auto) 162 10^3/uL (140-450); Red Blood Cells 2.42 10^6/uL (4.5-5.90); Red Cell Distribution Width 18.2 % (11.8-14.3); White Blood Cell 4.9 10^3/uL (4.4-10.8)
[2024-06-25 05:27] LABS: Anion Gap 3 (5-15); Aspartate Aminotransferase 20 U/L (13-40); BUN/Creatinine Ratio 5.6 (10.0-20.0); Blood Urea Nitrogen 15 mg/dL (9-23); Calcium 9.2 mg/dL (8.7-10.4); Carbon Dioxide 30 mmol/L (20-31); Glucose 91 mg/dL (74-106); Potassium 3.5 mmol/L (3.5-5.1); Sodium 141 mmol/L (136-145); Total Protein 5.7 g/dL (5.7-8.2)
[2024-06-25 05:28] LABS: Alanine Aminotransferase < 9 U/L (7-40); Albumin 2.3 g/dL (3.2-4.8); Alkaline Phosphatase 126 U/L (46-116); Bilirubin, Total < 0.2 mg/dL (0.2-1.0); Chloride 108 mmol/L (98-107)
[2024-06-25 08:41] LABS: Base Excess 6.3 mmol/L (-2.0-3.0)
--- NOTE | 2024-06-25 10:50 | DVH ---
CHEST RADIOGRAPH Indication: POST TUNNELED CATHETER TIP REMOVAL Technique: Single frontal view of the chest was obtained Comparison: XY CHEST XRAY 1 VIEW on DOS: 06/25/24, XY CHEST XRAY 1 VIEW on DOS: 06/24/24, XY CHEST PO RTABLE on DOS: 06/23/24, XY CHEST PORTABLE on DOS: 06/22/24, XY CHEST XRAY 1 VIEW on DOS: 06/21/24, XY C HEST XRAY 1 VIEW on DOS: 06/25/24 FINDINGS: Lines and Tubes: Tracheostomy, left PICC unchanged. right tunneled central venous catheter removed . Lungs: Multifocal airspace disease. Pleura: No effusion. No pneumothorax. Cardiomediastinal contours: Cardiomegaly. Bones: Unremarkable IMPRESSION: Lines and tubes in satisfactory position. No significant interval change.
[2024-06-25] MEDS ORDERED: VANCOMYCIN PER PHARMACY 0 MG IV SCH (17:15)
[2024-06-25] MEDS: BUMETANIDE 1mg/4ml VIAL (0.25mg/ml) IV SCH (17:28)
--- NOTE | 2024-06-25 18:46 | DVHPN2 ---
Progress Note Date Seen: Jun 25, 2024 Has the PT tested + for MRSA If YES, has PT been informed?: Yes Medical Necessity Reason Pt with a Central, PICC or Fol: Yes The following are medically ne: Central Line, Rubio Catheter Reason for rubio catheter: Strict I&O Subjective Patient reports: Other (events noted) Review of Systems: Deferred Objective vital signs Vital Sign Date Time Temp Pulse Resp B/P (MAP) Pulse Ox O2 Delivery O2 Flow Rate FiO2 06/25/24 18:01 91 20 164/73 (103) 96 06/25/24 18:00 Mechanical Ventilator+ 30 30 06/25/24 12:01 98.7 98.7 06/24/24 20:00 8 Total Intake and Output 06/24/24 06/24/24 06/25/24 15:00 23:00 07:00 Intake Total 12.5 ml 477.0 ml 410.0 ml Output Total 450 ml 120 ml Balance 12.5 ml 27.0 ml 290.0 ml medications Current Medications Medications Dose Ordered Sig/[place] Route Start Time Stop Time Status Last Admin Dose Admin Albuterol 2.5 mg Q6HPRN PRN NEB 05/29/24 00:00 06/25/24 12:33 2.5 MG Enteral Nutritional Formula 1,000 ml 30ML/HR GT 05/30/24 11:00 06/23/24 21:54 1,000 ML Diagnostic Test (Pha) 1 strip Q6HR 06/02/24 12:00 06/25/24 17:27 1 STRIP Dextrose 50 ml UD PRN IV 06/02/24 10:45 06/19/24 04:55 50 ML Heparin Sodium (Porcine) 4,000 units PRN PRN IV 06/07/24 09:00 Hydralazine HCl 100 mg Q8HR PO 06/07/24 14:00 06/25/24 14:01 100 MG Acetylcysteine 100 mg Q6HR NEB 06/09/24 18:00 06/25/24 12:33 100 MG Amlodipine Besylate 10 mg DAILY PO 06/10/24 10:00 06/25/24 09:46 10 MG Enoxaparin Sodium 40 mg DAILY SC 06/10/24 10:00 UNV Enoxaparin Sodium 40 mg DAILY SC 06/17/24 10:00 UNV Enoxaparin Sodium 30 mg DAILY SC 06/17/24 10:00 06/25/24 09:45 30 MG Epoetin Calin-epbx 10,000 unit TUTHSA SC 06/17/24 12:00 06/24/24 11:02 10,000 UNIT Sodium Chloride 10 ml QSHIFT@,22 IV 06/17/24 22:00 06/25/24 09:47 10 ML Lactulose 30 ml BID PEG 06/19/24 22:00 06/25/24 09:47 30 ML Pantoprazole Sodium 40 mg DAILY@0600 PO 06/21/24 10:00 06/25/24 05:39 40 MG Acetaminophen 650 mg Q6HP PRN GT 06/20/24 11:30 06/24/24 09:52 650 MG Metoprolol Tartrate 25 mg BID PO 06/23/24 10:00 06/25/24 09:47 25 MG Levetiracetam 500 mg DAILY PO 06/23/24 08:00 06/25/24 09:45 500 MG Fentanyl Citrate 250 ml @ 2.5 mls/hr Q24H IV 06/24/24 10:45 06/25/24 05:04 2.5 MLS/HR Hydralazine HCl 10 mg Q4HP PRN IV 06/24/24 16:45 Bumetanide 1 mg BIDD IV 06/25/24 18:00 06/25/24 17:28 1 MG Vancomycin HCl 0 ml @ 0 mls/hr UD IV 06/25/24 17:15 UNV Meropenem 50 ml @ 17 mls/hr Q8HR IV 06/25/24 22:00 Examination: LUNGS:Abnormal, MSK:Abnormal, NEURO:Abnormal laboratory and microbiology Laboratory Tests 06/25/24 04:45 Test 06/25/24 04:45 Range/Units Serum Glucose 91 74-106 mg/dL Microbiology Date/Time Source Procedure Growth Status 06/24/24 16:16 Chest Aerobic Culture - Preliminary Resulted 06/24/24 15:35 Blood Blood Culture - Preliminary NO GROWTH AFTER 24 HOURS OF INCUBATION. Resulted 06/11/24 16:06 Bronchial Washings Gram Stain - Final Complete 06/11/24 16:06 Respiratory Culture - Final Acinetobacter baumannii Pseudomonas aeruginosa Complete 05/30/24 11:45 Pleural Fluid Gram Stain - Final Complete 05/30/24 11:45 Pleural Fluid Body Fluid Culture - Final Complete 05/28/24 22:36 Urine - Catheterized Urine Culture - Final Enterobacter cloacae Escherichia coli Enterococcus faecalis - VRE Complete Problem List/Assessment/Plan Problem List/Assessment/Plan Acute kidney injury on chronic kidney disease stage 4 -> likely septic ATN needing HD Acute respiratory failure on vent Anemia suspected due to low blood loss s/p PRBC Hypernatremia Hypokalemia Metabolic acidosis Chronic urinary retention sepsis due to bacteremia recs hd 06/24 uf 2.5L pus coming from Tunneled catheter-removed by IR ,,need elvin cath,,bumex iv bid ID eval -pls reconsult ID Status post tracheostomy/peg Epogen with dialysis Plan discussed with: Other My Orders My Orders Orders - SUKI MERINO MD Procedure Category Date Status Time Bumetanide Injection PHA 06/25/24 In Process (Bumex Injection) 18:00 Dietary Evaluation Review Comments: 1) If GI is assessible consider Jevity 1.2 @ 60 ml/hr x24 hrs goal rate as tolerated 2) If pt remains NPO >7 days consider TPN to meet at least 75% of estimated needs 3) Advance pt diet when medically feasible to a Cardiac/Renal Specific K2,2gmNA,low phos,60g Pro diet modified per COMPUTER TEACHER recommendations 4) Continue current plan of care Expected Outcomes/Goals: 1) Pt to receive adequate nutrition support 2) Pt diet to advance CC Plasma Assessment Blood Product Administration S: [id number] SUKI MERINO MD Jun 25, 2024 18:46
[2024-06-25] MEDS: VANCOMYCIN 1.5GM/300ML 300 ML IV ONE (19:10)
--- NOTE | 2024-06-25 20:35 | DVHPNRES ---
Progress Note Date Seen: Jun 25, 2024 Resident Creating Document: DYLAN GOMEZ RESDIENT Has the PT tested + for MRSA If YES, has PT been informed?: Yes Medical Necessity Reason Pt with a Central, PICC or Fol: Yes The following are medically ne: Central Line, Rubio Catheter Reason for rubio catheter: Strict I&O Subjective Review of Systems This is a 65-year-old male with past medical history of CHF, CKD, COPD, dyslipidemia, hypertension, CVA brought to the hospital with shortness of breaths and at the level of consciousness. Admitted and intubated on 05/28, extubated on 06/09 but reintubated on 06/10. Epigastric performed on 06/13, PEG tube placed on 06/15. Today, patient seen and examined at the bedside. Patient is sedated and on on mechanical ventilation. Review of systems could not obtain. Chest x-ray shows bilateral infiltration, improved in compared to previous film. Patient reports: No new complaints Objective vital signs Vital Sign Date Time Temp Pulse Resp B/P (MAP) Pulse Ox O2 Delivery O2 Flow Rate FiO2 06/25/24 18:01 91 20 164/73 (103) 96 06/25/24 18:00 Mechanical Ventilator+ 30 30 06/25/24 12:01 98.7 98.7 06/24/24 20:00 8 Total Intake and Output 06/24/24 06/24/24 06/25/24 15:00 23:00 07:00 Intake Total 12.5 ml 477.0 ml 410.0 ml Output Total 450 ml 120 ml Balance 12.5 ml 27.0 ml 290.0 ml medications Current Medications Medications Dose Ordered Sig/[place] Route Start Time Stop Time Status Last Admin Dose Admin Albuterol 2.5 mg Q6HPRN PRN NEB 05/29/24 00:00 06/25/24 19:09 2.5 MG Enteral Nutritional Formula 1,000 ml 30ML/HR GT 05/30/24 11:00 06/23/24 21:54 1,000 ML Diagnostic Test (Pha) 1 strip Q6HR 06/02/24 12:00 06/25/24 17:27 1 STRIP Dextrose 50 ml UD PRN IV 06/02/24 10:45 06/19/24 04:55 50 ML Heparin Sodium (Porcine) 4,000 units PRN PRN IV 06/07/24 09:00 Hydralazine HCl 100 mg Q8HR PO 06/07/24 14:00 06/25/24 14:01 100 MG Acetylcysteine 100 mg Q6HR NEB 06/09/24 18:00 06/25/24 19:09 100 MG Amlodipine Besylate 10 mg DAILY PO 06/10/24 10:00 06/25/24 09:46 10 MG Enoxaparin Sodium 40 mg DAILY SC 06/10/24 10:00 UNV Enoxaparin Sodium 40 mg DAILY SC 06/17/24 10:00 UNV Enoxaparin Sodium 30 mg DAILY SC 06/17/24 10:00 06/25/24 09:45 30 MG Epoetin Calin-epbx 10,000 unit TUTHSA SC 06/17/24 12:00 06/24/24 11:02 10,000 UNIT Sodium Chloride 10 ml QSHIFT@10,22 IV 06/17/24 22:00 06/25/24 09:47 10 ML Lactulose 30 ml BID PEG 06/19/24 22:00 06/25/24 09:47 30 ML Pantoprazole Sodium 40 mg DAILY@0600 PO 06/21/24 10:00 06/25/24 05:39 40 MG Acetaminophen 650 mg Q6HP PRN GT 06/20/24 11:30 06/24/24 09:52 650 MG Metoprolol Tartrate 25 mg BID PO 06/23/24 10:00 06/25/24 09:47 25 MG Levetiracetam 500 mg DAILY PO 06/23/24 08:00 06/25/24 09:45 500 MG Fentanyl Citrate 250 ml @ 2.5 mls/hr Q24H IV 06/24/24 10:45 06/25/24 05:04 2.5 MLS/HR Hydralazine HCl 10 mg Q4HP PRN IV 06/24/24 16:45 Bumetanide 1 mg BIDD IV 06/25/24 18:00 06/25/24 17:28 1 MG Vancomycin HCl 0 ml @ 0 mls/hr UD IV 06/25/24 17:15 UNV Meropenem 50 ml @ 17 mls/hr Q8HR IV 06/25/24 22:00 Examination This is a 65-year-old male with past medical history of CHF, CKD, COPD, dyslipidemia, hypertension, CVA brought to the hospital with shortness of breaths and at the level of consciousness. Admitted and intubated on 05/28, extubated on 06/09 but reintubated on 06/10. Epigastric performed on 06/13, PEG tube placed on 06/15. Today, patient seen and examined at the bedside. Patient is sedated and on on mechanical ventilation. Review of systems could not obtain. Chest x-ray shows bilateral infiltration, improved in compared to previous film. laboratory and microbiology Laboratory Tests 06/25/24 04:45 Test 06/25/24 04:45 Range/Units Serum Glucose 91 74-106 mg/dL Microbiology Date/Time Source Procedure Growth Status 06/24/24 16:16 Chest Aerobic Culture - Preliminary Resulted 06/24/24 15:35 Blood Blood Culture - Preliminary NO GROWTH AFTER 24 HOURS OF INCUBATION. Resulted 06/11/24 16:06 Bronchial Washings Gram Stain - Final Complete 06/11/24 16:06 Respiratory Culture - Final Acinetobacter baumannii Pseudomonas aeruginosa Complete 05/30/24 11:45 Pleural Fluid Gram Stain - Final Complete 05/30/24 11:45 Pleural Fluid Body Fluid Culture - Final Complete 05/28/24 22:36 Urine - Catheterized Urine Culture - Final Enterobacter cloacae Escherichia coli Enterococcus faecalis - VRE Complete Labs and/or images reviewed: Labs reviewed by me, Image(s) reviewed by me Problem List/Assessment/Plan Problem List/Assessment/Plan 68-year-old male presents with past medical history of Chronic kidney disease, CHF, COPD, dyslipidemia, hypertension, CVA, liver disease broght to the Hospital with ALOC and SOB. Admitted and intubated on 05/28/2024 and underwent tracheostomy on 06/13. PEG tube, placed on 06/15 NEURO: Acute metabolic encephalopathy likely due to sepsis Patient is sedated and on mechanical ventilation, RASS scores -4 History of seizure during last admission(1 month back) used Keppra for 1 week Consulted neurology, recommended Keppra, changed from 500 mg b.i.d. to 500 mg once a day EEG shows abnormal EEG recording consistent with the presence of a diffuse nonspecific encephalopathic state CARDIOVASCULAR: Hypertension Continue home medication, injection hydralazine 10 mg q.6 hours as needed Continue hydralazine 100 mg t.i.d. Continue metoprolol 25 mg b.i.d., for tachycardia and hypertension PULMONARY: Acute Hypoxic Respiratory Failure likely due to pneumonia Septic shock likely due to pneumonia, improved Pneumonia likely due to MRSA and Enterobacter cloacae Patient is sedated and on the mechanical ventilation with a setting of (VT 500, RR 18, peep 5, FiO2 30%) CT scan shows [id number] left pleural effusion Chest ultrasound shows left side pleural effusion MRSA nares screening, COVID-19 and flu are negative Bronchoscopy performed on 06/11, there was some thin mucus secretion on bilateral side, bronchial lavage of right lower lobe and left lower lobe was performed, and the culture results shows Pseudomonas aeruginosa and Enterobacter baumanni, MDR; ID has been consulted Sputum culture from bronchoalveolar lavage from 05/24/24 shows MRSA, Enterobacter cloacae Blood culture from the 06/02/24 shows Staphylococcus epidermidis , Staph hominis Repeat culture from 06/09/2024 shows no growth Stopped in linezolid, given for 11 days, discontinued meropenem, started on 06/08 and given for 12 days ABGs shows respiratory alkalosis with no metabolic compensation Chest x-ray shows bilateral infiltrates duration, worsening in compared to yesterday Continue N-acetylcysteine Breathing treatment q.6 hours p.r.n. Trach collar trial, 1 hour b.i.d. as tolerated, today was tried on 10 lit of O2 and FiO2, and the patient developed tachypnea during the trial GI GI ppx: omeprazole 20mg daily via OG tube Hepatitis-C virus antibody positive Repeat stool occult blood test is negative CT abdominopelvic without contrast shows no evidence of intra-abdominal hemorrhage Tracheostomy is performed on 06/13 PEG tube is placed on 06/15 Bowel regimen: Lactulose 30 mL b.i.d. : FROYLAN on CKD grade 4 Nephrology on the board Bumix 1mg BID UTI, urinalysis shows UTI picture Urine culture from 05/28/2024 shows Enterobacter, E coli, Enterococcus faecalis Status post limb amputation, right lower limb, above the knee likely due to PAD Decubitus ulcer There are multiple grade 3-4 sacral ulcers position changing every 2 hours and dressing HEME Severe anemia, transfused 3 pack of red blood cells current HB is 8.2 ID: Sputum culture from bronchoalveolar lavage from 05/24/24 shows MRSA, Enterobacter cloacae Blood culture from the 06/02/24 shows Staphylococcus epidermidis , Staph hominis Repeat culture from 06/09/2024 shows no growth culture results from BAL from 06/11 shows Pseudomonas aeruginosa and Enterobacter baumanni, MDR ID is on the board, recommended to stop meropenem, as it does not cover these MDR and considering overall clinical picture it seems like the MDRO is colonization, however if he spikes continuous fever, or has increased workup breathing or worsening of hypoxia denude consider him starting on Ricarbio OR Fetroja + Tigecycline to cover these MDRO Discontinued meropenem, used for 12 days Mild fever, Tylenol as needed due to purulent discharge from tunneled catheter on 06/24, the catheter is removed, pus sample send for culture repeat blood culture start back meropenem on 06/25 start back vancomycin on 06/25 SKIN Possible keloid There is a growth on the left shoulder, per son, lesion has been present for several years Follow up on outpatient basis Metabolic: Hypernatremia, improved Hypokalemia, supplemented Hyperkalemia, improved Mild hyponatremia, monitoring Hypoglycemic episodes, improved Hypomagnesemia, supplemented LINES/DRAINS/ACCESS: ETT, intubated on 05/28/2024 and tracheostomy performed on 06/11, PEG tube placed on 06/15 IV access Right subclavian tunneled catheter, placed on 06/18 and removed on 06/24 PICC line, LEFT BASILIC vein, placed on 06/17 Suprapubic catheter, changed on 06/02/2020 Dripps: Fentanyl 50 No pressor DIET: Nepro 30 mL/hour DVT prophylaxis Lovenox 30 mg daily Disposition: social organization professor consulted for transfer to the [facility] CODE STATUS: Full code Patient's status discussed with patient's son on bedside. Critical time spent more than 63 minutes, including patient care, chart review and updating the family, excluding any procedures. Case discussed with Dr. Isabel Plan discussed with: Other (RN) My Orders My Orders Orders - DYLAN GOMEZ Procedure Category Date Status Time Ventilator Orders RT 06/25/24 Transmitted 08:50 Vancomycin Per PHA 06/25/24 Pending Pharmacy 17:15 Meropenem 500mg Ivpb PHA 06/25/24 In Process (Merrem 500mg/Ns) 22:00 Vancomycin,Random LAB 06/26/24 Verified 05:00 Creatinine LAB 06/26/24 Verified 05:00 Dietary Evaluation Review Comments: 1) If GI is assessible consider Jevity 1.2 @ 60 ml/hr x24 hrs goal rate as tolerated 2) If pt remains NPO >7 days consider TPN to meet at least 75% of estimated needs 3) Advance pt diet when medically feasible to a Cardiac/Renal Specific K2,2gmNA,low phos,60g Pro diet modified per APPLICATION DEVELOPMENT SPECIALIST recommendations 4) Continue current plan of care Expected Outcomes/Goals: 1) Pt to receive adequate nutrition support 2) Pt diet to advance CC Plasma Assessment Blood Product Administration S: [id number] Date of Service: Jun 25, 2024 Billing Provider: HOLGER ISABEL MD Common Visit Codes: [id number] CARE 30-74 MIN DYLAN GOMEZ RESDILONNIE Jun 25, 2024 20:35 HOLGER ISABEL MD Jun 26, 2024 11:53
[2024-06-25] MEDS: MEROPENEM 500MG IVPB 50 ML IV SCH (21:55)
[2024-06-25] MEDS ORDERED: MEROPENEM 1GM IVPB 50 ML IV SCH (22:00)
[2024-06-26] VITALS (56 sets, daily range): BP systolic 141–183; BP diastolic 69–88; PULSE 74–98; RESP 12–38; TEMP 97.7–100.9; O2SAT 95–100
[2024-06-26] MEDS: hydrALAZINE HCL 20 MG/ML VL IV PRN (01:56)
--- NOTE | 2024-06-26 05:30 | DVH ---
CHEST RADIOGRAPH Indication: Pneumonia Technique: Single frontal view of the chest was obtained COMPARISON: XY CHEST PORTABLE on DOS: 06/25/24, XY CHEST XRAY 1 VIEW on DOS: 06/25/24, XY CHEST XRAY 1 VIEW on DOS: 06/24/24, XY CHEST PORTABLE on DOS: 06/25/24 FINDINGS: Lines and Tubes: Tracheostomy, left PICC unchanged. right tunneled central venous catheter removed . Lungs: Multifocal airspace disease. Pleura: No effusion. No pneumothorax. Cardiomediastinal contours: Cardiomegaly. Bones: Unremarkable IMPRESSION: Lines and tubes in satisfactory position. No significant interval change.
[2024-06-26 05:33] LABS: Eosinophils # (auto) 0.2 10 ^3/uL (0-0.8); Lymphocytes # (auto) 0.9 10 ^3/uL (0.4-5.4); Monocytes # (auto) 0.6 10 ^3/uL (0-1.3); Neutrophils # (auto) 4.3 10 ^3/uL (1.6-8.6); Red Blood Cells 2.43 10^6/uL (4.5-5.90)
[2024-06-26 05:36] LABS: Basophils # (auto) 0 10 ^3/uL (0-0.2); Basophils % (auto) 0.7 % (0.0-2.0); Eosinophils % (auto) 3.1 % (0.0-7.0); Hematocrit 23.5 % (41.0-53.0); Hemoglobin 7.8 g/dL (13.5-17.5); Mean Corpuscular Hemoglobin 32.1 pg (28.0-32.0); Mean Corpuscular Hgb Conc. 33.1 g/dL (32.0-36.0); Mean Corpuscular Volume 96.9 fL (80.0-100.0); Monocytes % (auto) 9.3 % (0.0-12.0); Neutrophils % (auto) 71.9 % (37.0-80.0); Nucleated Red Blood Cells % 0.1 %; Platelet Count (auto) 178 10^3/uL (140-450); Red Cell Distribution Width 18.6 % (11.8-14.3); White Blood Cell 5.9 10^3/uL (4.4-10.8)
[2024-06-26 05:44] LABS: Anion Gap 9 (5-15); Aspartate Aminotransferase 20 U/L (13-40); BUN/Creatinine Ratio 7.4 (10.0-20.0); Blood Urea Nitrogen 22 mg/dL (9-23); Calcium 9.1 mg/dL (8.7-10.4); Carbon Dioxide 29 mmol/L (20-31); Chloride 106 mmol/L (98-107); Glucose 78 mg/dL (74-106); Potassium 3.5 mmol/L (3.5-5.1); Sodium 144 mmol/L (136-145); Total Protein 5.9 g/dL (5.7-8.2)
[2024-06-26 06:29] LABS: Alanine Aminotransferase < 9 U/L (7-40); Albumin 2.5 g/dL (3.2-4.8); Alkaline Phosphatase 149 U/L (46-116); Bilirubin, Total < 0.2 mg/dL (0.2-1.0)
[2024-06-26 08:53] LABS: Base Excess 3.5 mmol/L (-2.0-3.0)
[2024-06-26] MEDS: OMEPRAZOLE-SOD BICARB 20 MG POWDER GT SCH (09:54)
[2024-06-26 10:08] LABS: Hepatitis A Ab IgM Negative
[2024-06-26 10:09] LABS: Hepatitis B Core IgM Negative (Negative)
[2024-06-26 11:16] LABS: Hepatitis B Surface Antigen Negative (Negative)
[2024-06-26 11:18] LABS: Hepatitis C Antibody Reactive (Negative)
--- NOTE | 2024-06-26 13:57 | DVHPNRES ---
Progress Note Date Seen: Jun 26, 2024 Resident Creating Document: DYLAN GOMEZ RESDIENT Has the PT tested + for MRSA If YES, has PT been informed?: Yes Medical Necessity Reason Pt with a Central, PICC or Fol: Yes The following are medically ne: Central Line, Rubio Catheter Reason for rubio catheter: Strict I&O Subjective Review of Systems This is a 69-year-old male with past medical history of CHF, CKD, COPD, dyslipidemia, hypertension, CVA brought to the hospital with shortness of breaths and at the level of consciousness. Admitted and intubated on 05/28, extubated on 06/09 but reintubated on 06/10. Epigastric performed on 06/13, PEG tube placed on 06/15. Today, patient seen and examined at the bedside. Patient is sedated and on on mechanical ventilation. Review of systems could not obtain. Chest x-ray shows bilateral infiltration, improved in compared to previous film. Patient reports: No new complaints Changes from previous H/P or p: No Changes Objective vital signs Vital Sign Date Time Temp Pulse Resp B/P (MAP) Pulse Ox O2 Delivery O2 Flow Rate FiO2 06/26/24 13:02 99.3 06/26/24 13:00 89 18 167/88 (114) 100 06/26/24 12:27 30 06/26/24 12:00 Mechanical Ventilator+ 06/26/24 10:13 12.0 Total Intake and Output 06/25/24 06/25/24 06/26/24 15:00 23:00 07:00 Intake Total 20.0 ml 560.0 ml 630.0 ml Output Total 200 ml 225 ml Balance 20.0 ml 360.0 ml 405.0 ml medications Current Medications Medications Dose Ordered Sig/[place] Route Start Time Stop Time Status Last Admin Dose Admin Albuterol 2.5 mg Q6HPRN PRN NEB 05/29/24 00:00 06/26/24 12:27 2.5 MG Enteral Nutritional Formula 1,000 ml 30ML/HR GT 05/30/24 11:00 06/25/24 21:56 1,000 ML Diagnostic Test (Pha) 1 strip Q6HR 06/02/24 12:00 06/26/24 12:11 1 STRIP Dextrose 50 ml UD PRN IV 06/02/24 10:45 06/19/24 04:55 50 ML Heparin Sodium (Porcine) 4,000 units PRN PRN IV 06/07/24 09:00 Hydralazine HCl 100 mg Q8HR PO 06/07/24 14:00 06/26/24 05:13 100 MG Acetylcysteine 100 mg Q6HR NEB 06/09/24 18:00 06/26/24 12:27 100 MG Amlodipine Besylate 10 mg DAILY PO 06/10/24 10:00 06/26/24 09:18 10 MG Enoxaparin Sodium 40 mg DAILY SC 06/10/24 10:00 UNV Enoxaparin Sodium 40 mg DAILY SC 06/17/24 10:00 UNV Enoxaparin Sodium 30 mg DAILY SC 06/17/24 10:00 06/26/24 09:18 30 MG Epoetin Calin-epbx 10,000 unit TUTHSA SC 06/17/24 12:00 06/26/24 10:27 10,000 UNIT Sodium Chloride 10 ml QSHIFT@10,22 IV 06/17/24 22:00 06/26/24 09:18 10 ML Lactulose 30 ml BID PEG 06/19/24 22:00 06/26/24 09:17 30 ML Acetaminophen 650 mg Q6HP PRN GT 06/20/24 11:30 06/26/24 12:02 650 MG Metoprolol Tartrate 25 mg BID PO 06/23/24 10:00 06/26/24 09:18 25 MG Fentanyl Citrate 250 ml @ 2.5 mls/hr Q24H IV 06/24/24 10:45 06/26/24 04:56 2.5 MLS/HR Hydralazine HCl 10 mg Q4HP PRN IV 06/24/24 16:45 06/26/24 08:09 10 MG Bumetanide 1 mg BIDD IV 06/25/24 18:00 06/26/24 05:12 1 MG Vancomycin HCl 0 ml @ 0 mls/hr UD IV 06/25/24 17:15 Meropenem 50 ml @ 17 mls/hr Q8HR IV 06/25/24 22:00 06/26/24 05:12 17 MLS/HR Omeprazole 20 mg DAILY GT 06/26/24 10:00 06/26/24 09:54 20 MG Examination General: RASS -4, afebrile, mucosae are moist Cardiovascular: Normal S1 and S2. No murmurs, gallops or rubs Respiratory: Bilateral crackles Abdomen: Soft, nontender, no organomegaly, normal bowel sounds MSK/skin: Right lower limb at the level of knees amputated, left lower limb 2+ pedal edema Neurological: Orientation cannot be assessed. Pupils are isocoric and reactive laboratory and microbiology Laboratory Tests 06/26/24 04:51 06/26/24 04:07 Test 06/26/24 04:07 Range/Units Serum Glucose 78 74-106 mg/dL Microbiology Date/Time Source Procedure Growth Status 06/25/24 08:20 Catheter Site Aerobic Culture - Preliminary Resulted 06/24/24 15:35 Blood Blood Culture - Preliminary NO GROWTH AFTER 24 HOURS OF INCUBATION. Resulted 06/11/24 16:06 Bronchial Washings Gram Stain - Final Complete 06/11/24 16:06 Respiratory Culture - Final Acinetobacter baumannii Pseudomonas aeruginosa Complete 05/30/24 11:45 Pleural Fluid Gram Stain - Final Complete 05/30/24 11:45 Pleural Fluid Body Fluid Culture - Final Complete 05/28/24 22:36 Urine - Catheterized Urine Culture - Final Enterobacter cloacae Escherichia coli Enterococcus faecalis - VRE Complete Labs and/or images reviewed: Labs reviewed by me, Image(s) reviewed by me Problem List/Assessment/Plan Problem List/Assessment/Plan 69-year-old male presents with past medical history of Chronic kidney disease, CHF, COPD, dyslipidemia, hypertension, CVA, liver disease broght to the Hospital with ALOC and SOB. Admitted and intubated on 05/28/2024 and underwent tracheostomy on 06/13. PEG tube, placed on 06/15 NEURO: Acute metabolic encephalopathy likely due to sepsis Patient is sedated and on mechanical ventilation, RASS scores -4 History of seizure during last admission(1 month back) used Keppra for 1 week Discontinued Keppra, on 06/16 EEG shows abnormal EEG recording consistent with the presence of a diffuse nonspecific encephalopathic state CARDIOVASCULAR: Hypertension Continue home medication, injection hydralazine 10 mg q.6 hours as needed Continue hydralazine 100 mg t.i.d. Continue metoprolol 25 mg b.i.d., for tachycardia and hypertension PULMONARY: Acute Hypoxic Respiratory Failure likely due to pneumonia Septic shock likely due to pneumonia, improved Pneumonia likely due to MRSA and Enterobacter cloacae Patient is sedated and on the mechanical ventilation with a setting of (VT 500, RR 18, peep 5, FiO2 30%) CT scan shows [id number] left pleural effusion Chest ultrasound shows left side pleural effusion MRSA nares screening, COVID-19 and flu are negative Bronchoscopy performed on 06/11, there was some thin mucus secretion on bilateral side, bronchial lavage of right lower lobe and left lower lobe was performed, and the culture results shows Pseudomonas aeruginosa and Enterobacter baumanni, MDR; ID has been consulted Sputum culture from bronchoalveolar lavage from 05/24/24 shows MRSA, Enterobacter cloacae Blood culture from the 06/02/24 shows Staphylococcus epidermidis , Staph hominis Repeat culture from 06/09/2024 shows no growth Stopped in linezolid, given for 11 days, discontinued meropenem, started on 06/08 and given for 12 days ABGs shows respiratory alkalosis with no metabolic compensation Chest x-ray shows bilateral infiltrates duration, worsening in compared to yesterday Continue N-acetylcysteine Breathing treatment q.6 hours p.r.n. Trach collar trial, 1 hour b.i.d. as tolerated, today was tried on 10 lit of O2 and FiO2 30%, and the patient developed tachypnea during the trial GI GI ppx: omeprazole 20mg daily via OG tube Hepatitis-C virus antibody positive Repeat stool occult blood test is negative CT abdominopelvic without contrast shows no evidence of intra-abdominal hemorrhage Tracheostomy is performed on 06/13 PEG tube is placed on 06/15 Bowel regimen: Lactulose 30 mL b.i.d. : FROYLAN on CKD grade 4 Nephrology on the board, planned for hemodialysis for tomorrow Bumix 1mg BID Homer catheter placed on left internal jugular, on 06/26 UTI, urinalysis shows UTI picture Urine culture from 05/28/2024 shows Enterobacter, E coli, Enterococcus faecalis Status post limb amputation, right lower limb, above the knee likely due to PAD Decubitus ulcer There are multiple grade 3-4 sacral ulcers position changing every 2 hours and dressing HEME Severe anemia, transfused 3 pack of red blood cells current HB is 8.2 ID: Sputum culture from bronchoalveolar lavage from 05/24/24 shows MRSA, Enterobacter cloacae Blood culture from the 06/02/24 shows Staphylococcus epidermidis , Staph hominis Repeat culture from 06/09/2024 shows no growth culture results from BAL from 06/11 shows Pseudomonas aeruginosa and Enterobacter baumanni, MDR ID is on the board, recommended to stop meropenem, as it does not cover these MDR and considering overall clinical picture it seems like the MDRO is colonization, however if he spikes continuous fever, or has increased workup breathing or worsening of hypoxia denude consider him starting on Ricarbio OR Fetroja + Tigecycline to cover these MDRO Discontinued meropenem, used for 12 days Mild fever, Tylenol as needed due to purulent discharge from tunneled catheter on 06/24, the catheter is removed start back meropenem on 06/25 start back vancomycin on 06/25 Blood culture from 06/24, shows no growth Past schedule from the catheter site shows Gram-negative right and Staphylococcus species SKIN Possible keloid There is a growth on the left shoulder, per son, lesion has been present for several years Follow up on outpatient basis Metabolic: Hypernatremia, improved Hypokalemia, supplemented Hyperkalemia, improved Mild hyponatremia, monitoring Hypoglycemic episodes, improved Hypomagnesemia, supplemented LINES/DRAINS/ACCESS: ETT, intubated on 05/28/2024 and tracheostomy performed on 06/11, PEG tube placed on 06/15 IV access Left internal jugular CVC, placed on 06/26 Suprapubic catheter, changed on 06/02/2020 Dripps: Fentanyl 50 No pressor DIET: Nepro 30 mL/hour DVT prophylaxis Lovenox 30 mg daily Disposition: social worker masters consulted for transfer to the [facility] CODE STATUS: Full code Patient's status discussed with patient's son on bedside. Critical time spent more than 54 minutes, including patient care, chart review and updating the family, excluding any procedures. Case discussed with Dr. Isabel Plan discussed with: Other (RN) My Orders My Orders Orders - DYLAN GOMEZ RESDILONNIE Procedure Category Date Status Time Vancomycin Per PHA 06/25/24 In Process Pharmacy 17:15 Meropenem 500mg Ivpb PHA 06/25/24 In Process (Merrem 500mg/Ns) 22:00 Chest Xray 1 View XY 06/26/24 Resulted 04:00 Abg W/ Co-Ox RT 06/26/24 Logged 04:00 * Infectious Nghia- CONS 06/26/24 Transmitted [facility] 07:00 Vancomycin,Random LAB 06/27/24 Verified 04:00 Renal Function Test LAB 06/27/24 Verified 04:00 Dietary Evaluation Review Comments: 1) If GI is assessible consider Jevity 1.2 @ 60 ml/hr x24 hrs goal rate as tolerated 2) If pt remains NPO >7 days consider TPN to meet at least 75% of estimated needs 3) Advance pt diet when medically feasible to a Cardiac/Renal Specific K2,2gmNA,low phos,60g Pro diet modified per TIMING INSPECTOR recommendations 4) Continue current plan of care Expected Outcomes/Goals: 1) Pt to receive adequate nutrition support 2) Pt diet to advance CC Plasma Assessment Blood Product Administration S: [id number] Date of Service: Jun 26, 2024 Billing Provider: HOLGER ISABEL MD Common Visit Codes: [id number] CARE 30-74 MIN DYLAN GOMEZ RESDIENT Jun 26, 2024 13:57 HOLGER ISABEL MD Jun 29, 2024 12:11
--- NOTE | 2024-06-26 15:42 | DVHNC2 ---
Central Line Recorder of insertion practice: Interior Design Professor Occupation of carbon rod inserter: Attending Physician Indication: Suspected infection Room prepared for procedure: Yes Interior Design Professor performed hand hygien: Yes Maximal sterile barrier precau: Mask/Eye shield, Sterile gown, Cap, Sterlie gloves, Large sterlie drape Skin Preparation: Chlorhexidine gluconate Skin preparation completely dr: Yes Insertion site: Left, Internal jugular Central line catheter type: Dialysis non-tunneled Number of lumens: 2 Central line exchanged over a: No Antiseptic ointment applied to: No Post Assessment: Chest X-Ray Informed consent obtained: Yes Risks/benefits/alt described: Yes Notes PLACED UNDER ULTRASOUND GUIDANCE Date of Service: Jun 26, 2024 Billing Provider: HOLGER ISABEL MD Common Visit Codes: PROCEDURE ONLY Procedure Codes: [id number] NON-TUNNEL CV CATH HOLGER ISABEL MD Jun 26, 2024 15:42
--- NOTE | 2024-06-26 15:52 | DVHPN2 ---
Progress Note Date Seen: Jun 26, 2024 Has the PT tested + for MRSA If YES, has PT been informed?: Yes Medical Necessity Reason Pt with a Central, PICC or Fol: Yes The following are medically ne: Central Line, Rubio Catheter Reason for rubio catheter: Strict I&O Subjective Patient reports: Other Review of Systems: Deferred Objective vital signs Vital Sign Date Time Temp Pulse Resp B/P (MAP) Pulse Ox O2 Delivery O2 Flow Rate FiO2 06/26/24 14:01 83 19 166/76 (106) 100 06/26/24 14:00 Mechanical Ventilator+ 30 30 06/26/24 13:02 99.3 06/26/24 10:13 12.0 Total Intake and Output 06/25/24 06/25/24 06/26/24 15:00 23:00 07:00 Intake Total 20.0 ml 560.0 ml 630.0 ml Output Total 200 ml 225 ml Balance 20.0 ml 360.0 ml 405.0 ml medications Current Medications Medications Dose Ordered Sig/[place] Route Start Time Stop Time Status Last Admin Dose Admin Albuterol 2.5 mg Q6HPRN PRN NEB 05/29/24 00:00 06/26/24 12:27 2.5 MG Enteral Nutritional Formula 1,000 ml 30ML/HR GT 05/30/24 11:00 06/25/24 21:56 1,000 ML Diagnostic Test (Pha) 1 strip Q6HR 06/02/24 12:00 06/26/24 12:11 1 STRIP Dextrose 50 ml UD PRN IV 06/02/24 10:45 06/19/24 04:55 50 ML Heparin Sodium (Porcine) 4,000 units PRN PRN IV 06/07/24 09:00 Hydralazine HCl 100 mg Q8HR PO 06/07/24 14:00 06/26/24 13:52 100 MG Acetylcysteine 100 mg Q6HR NEB 06/09/24 18:00 06/26/24 12:27 100 MG Amlodipine Besylate 10 mg DAILY PO 06/10/24 10:00 06/26/24 09:18 10 MG Enoxaparin Sodium 40 mg DAILY SC 06/10/24 10:00 UNV Enoxaparin Sodium 40 mg DAILY SC 06/17/24 10:00 UNV Enoxaparin Sodium 30 mg DAILY SC 06/17/24 10:00 06/26/24 09:18 30 MG Epoetin Calin-epbx 10,000 unit TUTHSA SC 06/17/24 12:00 06/26/24 10:27 10,000 UNIT Sodium Chloride 10 ml QSHIFT@10,22 IV 06/17/24 22:00 06/26/24 09:18 10 ML Lactulose 30 ml BID PEG 06/19/24 22:00 06/26/24 09:17 30 ML Acetaminophen 650 mg Q6HP PRN GT 06/20/24 11:30 06/26/24 12:02 650 MG Metoprolol Tartrate 25 mg BID PO 06/23/24 10:00 06/26/24 09:18 25 MG Fentanyl Citrate 250 ml @ 2.5 mls/hr Q24H IV 06/24/24 10:45 06/26/24 04:56 2.5 MLS/HR Hydralazine HCl 10 mg Q4HP PRN IV 06/24/24 16:45 06/26/24 08:09 10 MG Bumetanide 1 mg BIDD IV 06/25/24 18:00 06/26/24 05:12 1 MG Vancomycin HCl 0 ml @ 0 mls/hr UD IV 06/25/24 17:15 Meropenem 50 ml @ 17 mls/hr Q8HR IV 06/25/24 22:00 06/26/24 13:53 17 MLS/HR Omeprazole 20 mg DAILY GT 06/26/24 10:00 06/26/24 09:54 20 MG Examination: GENERAL:Abnormal, LUNGS:Abnormal, MSK:Abnormal, SKIN:Abnormal, NEURO:Abnormal laboratory and microbiology Laboratory Tests 06/26/24 04:51 06/26/24 04:07 Test 06/26/24 04:07 Range/Units Serum Glucose 78 74-106 mg/dL Microbiology Date/Time Source Procedure Growth Status 06/25/24 08:20 Catheter Site Aerobic Culture - Preliminary Resulted 06/24/24 15:35 Blood Blood Culture - Preliminary NO GROWTH AFTER 48 HOURS OF INCUBATION. Resulted 06/11/24 16:06 Bronchial Washings Gram Stain - Final Complete 06/11/24 16:06 Respiratory Culture - Final Acinetobacter baumannii Pseudomonas aeruginosa Complete 05/30/24 11:45 Pleural Fluid Gram Stain - Final Complete 05/30/24 11:45 Pleural Fluid Body Fluid Culture - Final Complete 05/28/24 22:36 Urine - Catheterized Urine Culture - Final Enterobacter cloacae Escherichia coli Enterococcus faecalis - VRE Complete Problem List/Assessment/Plan Problem List/Assessment/Plan Acute kidney injury on chronic kidney disease stage 4 -> likely septic ATN needing HD Acute respiratory failure on vent Anemia suspected due to low blood loss s/p PRBC Hypernatremia Hypokalemia Metabolic acidosis Chronic urinary retention sepsis due to bacteremia recs hd 06/24 uf 2.5L pus coming from Tunneled catheter-removed by IR ,,need elvin cath informed ,,bumex iv bid Status post tracheostomy/peg Epogen with dialysis We will schedule dialysis for Sunday Plan discussed with: Other Dietary Evaluation Review Comments: 1) If GI is assessible consider Jevity 1.2 @ 60 ml/hr x24 hrs goal rate as tolerated 2) If pt remains NPO >7 days consider TPN to meet at least 75% of estimated needs 3) Advance pt diet when medically feasible to a Cardiac/Renal Specific K2,2gmNA,low phos,60g Pro diet modified per MOLD SHEET CLEANER recommendations 4) Continue current plan of care Expected Outcomes/Goals: 1) Pt to receive adequate nutrition support 2) Pt diet to advance CC Plasma Assessment Blood Product Administration S: [id number] SUKI MERINO MD Jun 26, 2024 15:52
--- NOTE | 2024-06-26 16:22 | DVH ---
CHEST RADIOGRAPH Indication: HEMODIALYSIS PLACEMENT Technique: Single frontal view of the chest was obtained Comparison: XY CHEST XRAY 1 VIEW on DOS: 06/26/24, XY CHEST PORTABLE on DOS: 06/25/24, XY CHEST XRAY 1 VIEW on DOS: 06/25/24 FINDINGS: Lines and Tubes: Tracheostomy tube is in satisfactory position. Left IJ approach central venous cath eter and left upper extremity PICC are in satisfactory position. Lungs: Mild interstitial prominence. Hazy opacification of the left mid and lower lung zone with rashaad nting of the left costophrenic angle No pneumothorax. Cardiomediastinal contours: Borderline cardiomegaly Bones: No acute osseous abnormality. IMPRESSION: Lines and tubes in satisfactory position. Pulmonary vascular congestion with small left-sided pleural effusion and associated atelectasis. Hazy opacification of the left mid and lower lung zone which may be from the pleural effusion with un derlying infectious process not excluded.
[2024-06-27] VITALS (110 sets, daily range): BP systolic 132–193; BP diastolic 65–124; PULSE 76–110; RESP 8–32; TEMP 97.7–99.2; O2SAT 90–100
[2024-06-27 05:55] LABS: Hemoglobin 8.3 g/dL (13.5-17.5); Mean Corpuscular Hemoglobin 32.3 pg (28.0-32.0); Red Cell Distribution Width 19.4 % (11.8-14.3)
--- NOTE | 2024-06-27 05:55 | DVH ---
CHEST RADIOGRAPH Indication: Pneumonia Technique: Single frontal view of the chest was obtained COMPARISON: XY CHEST XRAY 1 VIEW on DOS: 06/26/24, XY CHEST XRAY 1 VIEW on DOS: 06/26/24, XY CHEST PO RTABLE on DOS: 06/25/24 FINDINGS: Lines and Tubes: Tracheostomy and left central venous catheter and left PICC in satisfactory position . Lungs: Congestion. Pleura: No effusion. No pneumothorax. Cardiomediastinal contours: Unremarkable Bones: Unremarkable IMPRESSION: Lines and tubes in satisfactory position. No significant interval change.
[2024-06-27 05:58] LABS: Mean Corpuscular Volume 97.9 fL (80.0-100.0); Platelet Count (auto) 185 10^3/uL (140-450); Red Blood Cells 2.56 10^6/uL (4.5-5.90); White Blood Cell 6.2 10^3/uL (4.4-10.8)
[2024-06-27 06:01] LABS: Band Neutrophils % (manual) 0; Basophils % (manual) 0 (0.0-2.0); Blast Cells 0; Metamyelocytes % 0; Myelocytes % 0; Promyelocytes % 0; Reactive Lymphocytes 0
[2024-06-27 06:13] LABS: Anion Gap 9 (5-15); Aspartate Aminotransferase 21 U/L (13-40); BUN/Creatinine Ratio 8.3 (10.0-20.0); Calcium 9.2 mg/dL (8.7-10.4); Carbon Dioxide 28 mmol/L (20-31); Chloride 107 mmol/L (98-107); GFR African American 24 mL/min; GFR Non-African American 19 mL/min; Glucose 92 mg/dL (74-106); Potassium 3.5 mmol/L (3.5-5.1); Sodium 144 mmol/L (136-145)
[2024-06-27 06:14] LABS: Total Protein 5.9 g/dL (5.7-8.2)
[2024-06-27 06:33] LABS: Alanine Aminotransferase < 9 U/L (7-40); Alkaline Phosphatase 140 U/L (46-116); Blood Urea Nitrogen 28 mg/dL (9-23); Phosphorus 2.1 mg/dL (2.4-5.1)
[2024-06-27 06:34] LABS: Albumin 2.5 g/dL (3.2-4.8); Bilirubin, Total < 0.2 mg/dL (0.2-1.0)
[2024-06-27 06:57] LABS: Eosinophils % (manual) 3 (0-7); Lymphocytes % (manual) 19 (10.0-50.0); Monocytes % (manual) 10 (0-12); Platelet Estimate Adequate
[2024-06-27 08:34] LABS: Base Excess 1.3 mmol/L (-2.0-3.0)
--- NOTE | 2024-06-27 11:23 | DVHPN2 ---
Progress Note - Dictate Date Seen: Jun 27, 2024 Has the PT tested + for MRSA If YES, has PT been informed?: Yes Medical Necessity Reason Pt with a Central, PICC or Fol: Yes The following are medically ne: Central Line, Rubio Catheter Reason for rubio catheter: Strict I&O Subjective Hd nurse at bedside vital signs Vital Sign Date Time Temp Pulse Resp B/P (MAP) Pulse Ox O2 Delivery O2 Flow Rate FiO2 06/27/24 10:55 90 23 161/72 100 30 06/27/24 08:00 99.2 99.2 06/27/24 06:00 Mechanical Ventilator+ 06/26/24 18:00 12 Total Intake and Output 06/26/24 06/26/24 06/27/24 15:00 23:00 07:00 Intake Total 54.0 ml 388.0 ml 387.5 ml Output Total 285 ml 370 ml Balance 54.0 ml 103.0 ml 17.5 ml medications Current Medications Medications Dose Ordered Sig/[place] Route Start Time Stop Time Status Last Admin Dose Admin Albuterol 2.5 mg Q6HPRN PRN NEB 05/29/24 00:00 06/27/24 07:20 2.5 MG Enteral Nutritional Formula 1,000 ml 30ML/HR GT 05/30/24 11:00 06/26/24 22:09 1,000 ML Diagnostic Test (Pha) 1 strip Q6HR 06/02/24 12:00 06/27/24 05:35 1 STRIP Dextrose 50 ml UD PRN IV 06/02/24 10:45 06/19/24 04:55 50 ML Heparin Sodium (Porcine) 4,000 units PRN PRN IV 06/07/24 09:00 Hydralazine HCl 100 mg Q8HR PO 06/07/24 14:00 06/27/24 05:01 100 MG Acetylcysteine 100 mg Q6HR NEB 06/09/24 18:00 06/27/24 07:20 100 MG Amlodipine Besylate 10 mg DAILY PO 06/10/24 10:00 06/26/24 09:18 10 MG Enoxaparin Sodium 40 mg DAILY SC 06/10/24 10:00 UNV Enoxaparin Sodium 40 mg DAILY SC 06/17/24 10:00 UNV Enoxaparin Sodium 30 mg DAILY SC 06/17/24 10:00 06/27/24 09:53 30 MG Epoetin Calin-epbx 10,000 unit TUTHSA SC 06/17/24 12:00 06/26/24 10:27 10,000 UNIT Sodium Chloride 10 ml QSHIFT@10,22 IV 06/17/24 22:00 06/27/24 09:54 10 ML Lactulose 30 ml BID PEG 06/19/24 22:00 06/27/24 09:53 30 ML Acetaminophen 650 mg Q6HP PRN GT 06/20/24 11:30 06/26/24 12:02 650 MG Metoprolol Tartrate 25 mg BID PO 06/23/24 10:00 06/26/24 22:01 25 MG Fentanyl Citrate 250 ml @ 2.5 mls/hr Q24H IV 06/24/24 10:45 06/26/24 04:56 2.5 MLS/HR Hydralazine HCl 10 mg Q4HP PRN IV 06/24/24 16:45 06/26/24 08:09 10 MG Bumetanide 1 mg BIDD IV 06/25/24 18:00 06/27/24 05:35 1 MG Vancomycin HCl 0 ml @ 0 mls/hr UD IV 06/25/24 17:15 Meropenem 50 ml @ 17 mls/hr Q8HR IV 06/25/24 22:00 06/27/24 05:40 17 MLS/HR Omeprazole 20 mg DAILY GT 06/26/24 10:00 06/27/24 09:54 20 MG objective Critically ill-appearing elderly white male Tracheostomy to vent On sedation No pressors No JVD Regular rate and rhythm Abdomen nondistended non firm no guarding no fluid wave, colostomy has hard stool Suprapubic Rubio catheter Urine color is clear No pitting edema of the lower extremity Has upper extremity bilateral arm swelling laboratory and microbiology Laboratory Tests 06/27/24 05:02 Test 06/27/24 05:02 Range/Units Serum Glucose 92 74-106 mg/dL Assessment/Plan Acute kidney injury on chronic kidney disease stage 4 -> ATN Hemodynamically mediated Acute respiratory failure Anemia suspected due to low blood loss s/p PRBC Hypernatremia Hypokalemia Metabolic acidosis Chronic urinary retention sepsis due to bacteremia Hemodialysis today fluid removal as tolerated, IV albumin during dialysis to prevent hypotension tunnel catheter was removed due to exit site infection now has temporary HD catheter IV ABX as per ICU with renal dosing Strict Is&Os Avoid contrast studies Critically ill Poor candidate for long-term dialysis currently on acute HD Dietary Evaluation Review Comments: 1) If GI is assessible consider Jevity 1.2 @ 60 ml/hr x24 hrs goal rate as tolerated 2) If pt remains NPO >7 days consider TPN to meet at least 75% of estimated needs 3) Advance pt diet when medically feasible to a Cardiac/Renal Specific K2,2gmNA,low phos,60g Pro diet modified per INTERNET SPECIALIST recommendations 4) Continue current plan of care Expected Outcomes/Goals: 1) Pt to receive adequate nutrition support 2) Pt diet to advance Plan discussed with: Patient CC Plasma Assessment Blood Product Administration S: [id number] ANNA ROMERO MD Jun 27, 2024 11:23
[2024-06-27] MEDS: MEROPENEM 500MG IVPB 50 ML IV SCH (17:41)
--- NOTE | 2024-06-27 19:02 | DVHPNRES ---
Progress Note Date Seen: Jun 27, 2024 Resident Creating Document: DYLAN GOMEZ RESDIENT Has the PT tested + for MRSA If YES, has PT been informed?: Yes Medical Necessity Reason Pt with a Central, PICC or Fol: Yes The following are medically ne: Central Line, Rubio Catheter Reason for rubio catheter: Strict I&O Subjective Review of Systems This is a 65-year-old male with past medical history of CHF, CKD, COPD, dyslipidemia, hypertension, CVA brought to the hospital with shortness of breaths and at the level of consciousness. Admitted and intubated on 05/28, extubated on 06/09 but reintubated on 06/10. Epigastric performed on 06/13, PEG tube placed on 06/15. Today, patient seen and examined at the bedside. Patient is sedated and on on mechanical ventilation. Review of systems could not obtain. Chest x-ray shows bilateral infiltration, improved in compared to previous film. Objective vital signs Vital Sign Date Time Temp Pulse Resp B/P (MAP) Pulse Ox O2 Delivery O2 Flow Rate FiO2 06/27/24 18:22 83 20 141/75 (97) 99 30 06/27/24 16:00 Mechanical Ventilator+ 06/27/24 11:45 99.1 99.1 06/26/24 18:00 12 Total Intake and Output 06/26/24 06/26/24 06/27/24 15:00 23:00 07:00 Intake Total 54.0 ml 388.0 ml 390.0 ml Output Total 285 ml 370 ml Balance 54.0 ml 103.0 ml 20.0 ml medications Current Medications Medications Dose Ordered Sig/[place] Route Start Time Stop Time Status Last Admin Dose Admin Albuterol 2.5 mg Q6HPRN PRN NEB 05/29/24 00:00 06/27/24 18:12 2.5 MG Enteral Nutritional Formula 1,000 ml 30ML/HR GT 05/30/24 11:00 06/26/24 22:09 1,000 ML Diagnostic Test (Pha) 1 strip Q6HR 06/02/24 12:00 06/27/24 17:41 1 STRIP Dextrose 50 ml UD PRN IV 06/02/24 10:45 06/19/24 04:55 50 ML Heparin Sodium (Porcine) 4,000 units PRN PRN IV 06/07/24 09:00 Hydralazine HCl 100 mg Q8HR PO 06/07/24 14:00 06/27/24 05:01 100 MG Acetylcysteine 100 mg Q6HR NEB 06/09/24 18:00 06/27/24 18:12 100 MG Amlodipine Besylate 10 mg DAILY PO 06/10/24 10:00 06/27/24 14:42 10 MG Enoxaparin Sodium 40 mg DAILY SC 06/10/24 10:00 UNV Enoxaparin Sodium 40 mg DAILY SC 06/17/24 10:00 UNV Enoxaparin Sodium 30 mg DAILY SC 06/17/24 10:00 06/27/24 09:53 30 MG Epoetin Calin-epbx 10,000 unit TUTHSA SC 06/17/24 12:00 06/26/24 10:27 10,000 UNIT Sodium Chloride 10 ml QSHIFT@10,22 IV 06/17/24 22:00 06/27/24 09:54 10 ML Lactulose 30 ml BID PEG 06/19/24 22:00 06/27/24 09:53 30 ML Acetaminophen 650 mg Q6HP PRN GT 06/20/24 11:30 06/26/24 12:02 650 MG Metoprolol Tartrate 25 mg BID PO 06/23/24 10:00 06/27/24 14:43 25 MG Fentanyl Citrate 250 ml @ 2.5 mls/hr Q24H IV 06/24/24 10:45 06/27/24 12:08 2.5 MLS/HR Hydralazine HCl 10 mg Q4HP PRN IV 06/24/24 16:45 06/26/24 08:09 10 MG Vancomycin HCl 0 ml @ 0 mls/hr UD IV 06/25/24 17:15 Omeprazole 20 mg DAILY GT 06/26/24 10:00 06/27/24 09:54 20 MG Meropenem 50 ml @ 17 mls/hr Q12H IV 06/27/24 18:00 06/27/24 17:41 17 MLS/HR Examination This is a 65-year-old male with past medical history of CHF, CKD, COPD, dyslipidemia, hypertension, CVA brought to the hospital with shortness of breaths and at the level of consciousness. Admitted and intubated on 05/28, extubated on 06/09 but reintubated on 06/10. Epigastric performed on 06/13, PEG tube placed on 06/15. Today, patient seen and examined at the bedside. Patient is sedated and on on mechanical ventilation. Review of systems could not obtain. Chest x-ray shows bilateral infiltration, improved in compared to previous film. laboratory and microbiology Laboratory Tests 06/27/24 05:02 Test 06/27/24 05:02 Range/Units Serum Glucose 92 74-106 mg/dL Microbiology Date/Time Source Procedure Growth Status 06/25/24 08:20 Catheter Site Aerobic Culture - Preliminary Resulted 06/24/24 15:35 Blood Blood Culture - Preliminary NO GROWTH AFTER 72 HOURS OF INCUBATION. Resulted 06/11/24 16:06 Bronchial Washings Gram Stain - Final Complete 06/11/24 16:06 Respiratory Culture - Final Acinetobacter baumannii Pseudomonas aeruginosa Complete 05/30/24 11:45 Pleural Fluid Gram Stain - Final Complete 05/30/24 11:45 Pleural Fluid Body Fluid Culture - Final Complete 05/28/24 22:36 Urine - Catheterized Urine Culture - Final Enterobacter cloacae Escherichia coli Enterococcus faecalis - VRE Complete Labs and/or images reviewed: Labs reviewed by me, Image(s) reviewed by me Problem List/Assessment/Plan Problem List/Assessment/Plan 69-year-old male presents with past medical history of Chronic kidney disease, CHF, COPD, dyslipidemia, hypertension, CVA, liver disease broght to the Hospital with ALOC and SOB. Admitted and intubated on 05/28/2024 and underwent tracheostomy on 06/13. PEG tube, placed on 06/15 NEURO: Acute metabolic encephalopathy likely due to sepsis Patient is sedated and on mechanical ventilation, RASS scores -4 History of seizure during last admission(1 month back) used Keppra for 1 week Discontinued Keppra, on 06/16 EEG shows abnormal EEG recording consistent with the presence of a diffuse nonspecific encephalopathic state CARDIOVASCULAR: Hypertension Continue home medication, injection hydralazine 10 mg q.6 hours as needed Continue hydralazine 100 mg t.i.d. Continue metoprolol 25 mg b.i.d., for tachycardia and hypertension PULMONARY: Acute Hypoxic Respiratory Failure likely due to pneumonia Septic shock likely due to pneumonia, improved Pneumonia likely due to MRSA and Enterobacter cloacae Patient is sedated and on the mechanical ventilation with a setting of (VT 500, RR 16, peep 5, FiO2 30%) CT scan shows [id number] left pleural effusion Chest ultrasound shows left side pleural effusion MRSA nares screening, COVID-19 and flu are negative Bronchoscopy performed on 06/11, there was some thin mucus secretion on bilateral side, bronchial lavage of right lower lobe and left lower lobe was performed, and the culture results shows Pseudomonas aeruginosa and Enterobacter baumanni, MDR; ID has been consulted Sputum culture from bronchoalveolar lavage from 05/24/24 shows MRSA, Enterobacter cloacae Blood culture from the 06/02/24 shows Staphylococcus epidermidis , Staph hominis Repeat culture from 06/09/2024 shows no growth Stopped in linezolid, given for 11 days, discontinued meropenem, started on 06/08 and given for 12 days ABGs shows respiratory alkalosis and respiratory rate decreased from 18 to 16 Chest x-ray shows bilateral infiltrates duration, worsening in compared to yesterday Continue N-acetylcysteine Breathing treatment q.6 hours p.r.n. Trach collar trial, 1 hour b.i.d. as tolerated, today was tried on 10 lit of O2 and FiO2 30%, and the patient developed tachypnea during the trial GI GI ppx: omeprazole 20mg daily via OG tube Hepatitis-C virus antibody positive Repeat stool occult blood test is negative CT abdominopelvic without contrast shows no evidence of intra-abdominal hemorrhage Tracheostomy is performed on 06/13 PEG tube is placed on 06/15 Bowel regimen: Lactulose 30 mL b.i.d. : FROYLAN on CKD grade 4 Nephrology on the board, performed HD today Stopped Bumix 1mg BID Homer catheter placed on left internal jugular, on 06/26 UTI, urinalysis shows UTI picture Urine culture from 05/28/2024 shows Enterobacter, E coli, Enterococcus faecalis Status post limb amputation, right lower limb, above the knee likely due to PAD Decubitus ulcer There are multiple grade 3-4 sacral ulcers position changing every 2 hours and dressing HEME Severe anemia, transfused 3 pack of red blood cells current HB is 8.2 ID: Sputum culture from bronchoalveolar lavage from 05/24/24 shows MRSA, Enterobacter cloacae Blood culture from the 06/02/24 shows Staphylococcus epidermidis , Staph hominis Repeat culture from 06/09/2024 shows no growth culture results from BAL from 06/11 shows Pseudomonas aeruginosa and Enterobacter baumanni, MDR ID is on the board, recommended to stop meropenem, as it does not cover these MDR and considering overall clinical picture it seems like the MDRO is colonization, however if he spikes continuous fever, or has increased workup breathing or worsening of hypoxia denude consider him starting on Ricarbio OR Fetroja + Tigecycline to cover these MDRO Discontinued meropenem, used for 12 days Mild fever, Tylenol as needed due to purulent discharge from tunneled catheter on 06/24, the catheter is removed start back meropenem on 06/25 start back vancomycin on 06/25 Blood culture from 06/24, shows no growth Past schedule from the catheter site shows Gram-negative right and Staphylococcus species SKIN Possible keloid There is a growth on the left shoulder, per son, lesion has been present for several years Follow up on outpatient basis Metabolic: Hypernatremia, improved Hypokalemia, supplemented Hyperkalemia, improved Mild hyponatremia, monitoring Hypoglycemic episodes, improved Hypomagnesemia, supplemented LINES/DRAINS/ACCESS: ETT, intubated on 05/28/2024 and tracheostomy performed on 06/11, PEG tube placed on 06/15 IV access Left internal jugular CVC, placed on 06/26 Suprapubic catheter, changed on 06/02/2020 Dripps: Fentanyl 50 No pressor DIET: Nepro 30 mL/hour DVT prophylaxis Lovenox 30 mg daily Disposition: licensed master social worker consulted for transfer to the [facility] CODE STATUS: Full code Patient's status discussed with patient's son on bedside. Critical time spent more than 73 minutes, including patient care, chart review and updating the family, excluding any procedures. Case discussed with Dr. Ashby Plan discussed with: Other (RN) My Orders My Orders Orders - DYLAN GOMEZ RESDILONNIE Procedure Category Date Status Time Vancomycin 1gm/250ml PHA 06/27/24 In Process Kit 20:00 Complete Blood Count LAB 06/28/24 Verified 04:00 Creatinine LAB 06/28/24 Verified 04:00 Vancomycin,Random LAB 06/28/24 Verified 04:00 Meropenem 500mg Ivpb PHA 06/27/24 In Process (Merrem 500mg/Ns) 18:00 Ventilator Orders RT 06/27/24 Transmitted 14:37 Dietary Evaluation Review Comments: 1) If GI is assessible consider Jevity 1.2 @ 60 ml/hr x24 hrs goal rate as tolerated 2) If pt remains NPO >7 days consider TPN to meet at least 75% of estimated needs 3) Advance pt diet when medically feasible to a Cardiac/Renal Specific K2,2gmNA,low phos,60g Pro diet modified per ORGAN FIXER recommendations 4) Continue current plan of care Expected Outcomes/Goals: 1) Pt to receive adequate nutrition support 2) Pt diet to advance CC Plasma Assessment Blood Product Administration S: [id number] Date of Service: Jun 27, 2024 Billing Provider: MARK ASHBY MD Common Visit Codes: 24469-[id number] CARE 30-74 MIN DYLAN GOMEZ RESDIENT Jun 27, 2024 19:02 MARK ASHBY MD Jun 28, 2024 09:25
[2024-06-27] MEDS: VANCOMYCIN 1GM/250ML KIT 250 ML IV ONE (20:09)
[2024-06-28] VITALS (115 sets, daily range): BP systolic 116–160; BP diastolic 47–84; PULSE 72–95; RESP 11–23; TEMP 98.6–99.6; O2SAT 95–100
[2024-06-28 05:54] LABS: Basophils # (auto) 0.1 10 ^3/uL (0-0.2); Hemoglobin 7.5 g/dL (13.5-17.5); Mean Corpuscular Hemoglobin 31.9 pg (28.0-32.0); Monocytes # (auto) 0.5 10 ^3/uL (0-1.3); Neutrophils # (auto) 3.9 10 ^3/uL (1.6-8.6)
--- NOTE | 2024-06-28 05:55 | DVH ---
CHEST RADIOGRAPH Indication: Pneumonia Technique: Single frontal view of the chest was obtained Comparison: XY CHEST XRAY 1 VIEW on DOS: 06/27/24, XY CHEST XRAY 1 VIEW on DOS: 06/26/24, XY CHEST XR AY 1 VIEW on DOS: 06/26/24 IMPRESSION: Heart is prominent in size. There is likely small left effusion, underlying atelectasis or consolidat ion not excluded. No discrete pneumothorax. Tracheostomy tube, left IJ catheter, and left PICC line a ppears satisfactory in position. No significant interval change.
[2024-06-28 05:56] LABS: Basophils % (auto) 1.3 % (0.0-2.0); Eosinophils # (auto) 0.2 10 ^3/uL (0-0.8); Eosinophils % (auto) 3.7 % (0.0-7.0); Lymphocytes % (auto) 17.7 % (10.0-50.0); Mean Corpuscular Hgb Conc. 32.7 g/dL (32.0-36.0); Mean Corpuscular Volume 97.5 fL (80.0-100.0); Neutrophils % (auto) 68.3 % (37.0-80.0); Platelet Count (auto) 158 10^3/uL (140-450); Red Blood Cells 2.36 10^6/uL (4.5-5.90); White Blood Cell 5.7 10^3/uL (4.4-10.8)
[2024-06-28 06:15] LABS: Anion Gap 8 (5-15); Aspartate Aminotransferase 17 U/L (13-40); BUN/Creatinine Ratio 8.1 (10.0-20.0); Calcium 8.9 mg/dL (8.7-10.4); Carbon Dioxide 29 mmol/L (20-31); Chloride 107 mmol/L (98-107); Glucose 87 mg/dL (74-106); Potassium 3.6 mmol/L (3.5-5.1); Sodium 144 mmol/L (136-145)
[2024-06-28 06:18] LABS: Alanine Aminotransferase < 9 U/L (7-40); Albumin 2.3 g/dL (3.2-4.8); Alkaline Phosphatase 130 U/L (46-116); Bilirubin, Total < 0.2 mg/dL (0.2-1.0); Blood Urea Nitrogen 24 mg/dL (9-23); Total Protein 5.6 g/dL (5.7-8.2)
[2024-06-28 07:24] LABS: Base Excess 3.1 mmol/L (-2.0-3.0)
[2024-06-28] MEDS: ALBUTEROL SULF 2.5 MG/0.5ML(0.5%) NEB SOLN ONE (11:31)
[2024-06-28] MEDS: POTASSIUM EFFERVESENT TAB 25 MEQ GT ONE (14:34)
--- NOTE | 2024-06-28 14:38 | DVHPN2 ---
Subjective Sedated. Ventilator support via tracheostomy Reviewed: Care Plan, H&P, Labs, Medications, Previous Orders, Radiology, Other (Consultants) Changes from previous H/P or p: No Changes General: Per HPI Objective Vitals Vital Signs Date Time Temp Pulse Resp B/P (MAP) Pulse Ox O2 Delivery O2 Flow Rate FiO2 06/28/24 13:52 86 06/28/24 13:51 16 99 Mechanical Ventilator+ 30 30 06/28/24 13:45 127/60 (82) 06/28/24 11:00 98.8 98.8 06/26/24 18:00 12 Intake/Output Intake and Output 06/28/24 07:00 Intake Total 1294.5 ml Output Total 3300 ml Balance -2005.5 ml Intake Oral 220 ml IV Total 477.5 ml Tube Feeding 597 ml Output Urine Total 150 ml Stool Total 150 ml Other 3000 ml General Appearance: Other (Sedated) HEENT: Atraumatic Lungs: Other (Few crackles bilateral lungs) Cardiovascular: Regular rate Abdomen: Normal bowel sounds, Soft Extremities: Other (Some bilateral lower extremity edema) Medications Current Medications Medications Dose Ordered Sig/[place] Route Start Time Stop Time Status Last Admin Dose Admin Enteral Nutritional Formula 1,000 ml 30ML/HR GT 05/30/24 11:00 06/26/24 22:09 1,000 ML Diagnostic Test (Pha) 1 strip Q6HR 06/02/24 12:00 06/28/24 08:26 1 STRIP Dextrose 50 ml UD PRN IV 06/02/24 10:45 06/19/24 04:55 50 ML Heparin Sodium (Porcine) 4,000 units PRN PRN IV 06/07/24 09:00 Hydralazine HCl 100 mg Q8HR PO 06/07/24 14:00 06/28/24 07:02 100 MG Acetylcysteine 100 mg Q6HR NEB 06/09/24 18:00 06/28/24 11:31 100 MG Amlodipine Besylate 10 mg DAILY PO 06/10/24 10:00 06/28/24 08:23 10 MG Enoxaparin Sodium 40 mg DAILY SC 06/10/24 10:00 UNV Enoxaparin Sodium 40 mg DAILY SC 06/17/24 10:00 UNV Epoetin Calin-epbx 10,000 unit TUTHSA SC 06/17/24 12:00 06/28/24 08:25 10,000 UNIT Sodium Chloride 10 ml QSHIFT@10,22 IV 06/17/24 22:00 06/28/24 08:24 10 ML Lactulose 30 ml BID PEG 06/19/24 22:00 06/28/24 08:23 30 ML Acetaminophen 650 mg Q6HP PRN GT 06/20/24 11:30 06/26/24 12:02 650 MG Metoprolol Tartrate 25 mg BID PO 06/23/24 10:00 06/28/24 08:24 25 MG Fentanyl Citrate 250 ml @ 2.5 mls/hr Q24H IV 06/24/24 10:45 06/28/24 08:25 10 MLS/HR Hydralazine HCl 10 mg Q4HP PRN IV 06/24/24 16:45 06/26/24 08:09 10 MG Omeprazole 20 mg DAILY GT 06/26/24 10:00 06/28/24 08:23 20 MG Meropenem 50 ml @ 17 mls/hr Q12H IV 06/27/24 18:00 06/28/24 05:54 17 MLS/HR Albuterol 2.5 mg Q6HPRN PRN NEB 06/28/24 11:30 Linezolid 300 ml @ 150 mls/hr Q12HR IV 06/28/24 22:00 Potassium Bicarbonate 25 meq DAILY PEG 06/29/24 10:00 Laboratory Results Laboratory Tests 06/28/24 04:27 Chemistry Test 06/28/24 04:27 Albumin 2.3 g/dL (3.2-4.8) L Calcium Level 8.9 mg/dL (8.7-10.4) Total Protein 5.6 g/dL (5.7-8.2) L LFT Test 06/28/24 04:27 Alanine Aminotransferase (ALT) < 9 U/L (7-40) Alkaline Phosphatase 130 U/L (46-116) H Aspartate Amino Transferase (AST) 17 U/L (13-40) Total Bilirubin < 0.2 mg/dL (0.2-1.0) L Urinalysis Test 05/28/24 22:36 05/30/24 04:30 Urine Color Dark-brown (Yellow) Urine Clarity Ex.turbid (Clear) Urine pH 6.0 (5.0-9.0) Urine Specific [place] 1.017 (1.001-1.035) Urine Protein 2+ (Negative) H Urine Ketones Trace (Negative) Urine Blood 1+ /uL (Negative) H Urine Nitrite Negative (Negative) Urine Bilirubin Negative (Negative) Urine Urobilinogen Normal mg/dL (Negative) Urine Leukocyte Esterase 3+ /uL (Negative) Urine RBC 56 /hpf (0 - 3) Urine WBC 3664 /hpf (0 - 3) Urine WBC Clumps Present /hpf (None Seen) Urine Squamous Epithelial Cells Many /hpf (<5) Urine Bacteria Mod /hpf (None Seen) H Urine Glucose Normal mg/dL (Normal) Urine Creatinine 33.57 mg/dL (30.0-125.0) Urine Sodium 85 mmol/L (40-220) Blood Gas Results Test 06/28/24 07:13 Arterial Blood pH 7.501 (7.350-7.450) FiO2 % 30.0 Microbiology Microbiology Date/Time Source Procedure Growth Status 06/25/24 08:20 Catheter Site Aerobic Culture - Preliminary Resulted 06/24/24 15:35 Blood Blood Culture - Preliminary NO GROWTH AFTER 72 HOURS OF INCUBATION. Resulted 06/11/24 16:06 Bronchial Washings Gram Stain - Final Complete 06/11/24 16:06 Respiratory Culture - Final Acinetobacter baumannii Pseudomonas aeruginosa Complete 05/30/24 11:45 Pleural Fluid Gram Stain - Final Complete 05/30/24 11:45 Pleural Fluid Body Fluid Culture - Final Complete 05/28/24 22:36 Urine - Catheterized Urine Culture - Final Enterobacter cloacae Escherichia coli Enterococcus faecalis - VRE Complete Assessment/Plan Assessment/Plan Respiratory failure Sepsis and septic shock Encephalopathy Acute kidney injury atop chronic kidney disease/needing dialysis Anemia status post blood transfusion Thrombocytopenia History of recent seizure Peripheral artery disease and status post right AKA HTN UTI Infection with MRSA and Enterobacter cloaca Severe protein deficient malnutrition Plan: Change antibiotic from vancomycin to Zyvox due to the kidney function. Monitor H and H with CBC. PRBC if hemoglobin drops below seven. Monitor vital signs and oxygenation. Repeat chest x-ray. Replace potassium. Further plan per orders. Total critical care time 40 minutes Plan discussed with: Other (Nursing) My Orders Orders - ANISA ROBLES MD Procedure Category Date Status Time Linezolid 600mg/300ml PHA 12/14/24 In Process (Zyvox) 22:00 Potassium Effervesent PHA 06/29/24 In Process Tab (Klor-Con/Ef) 10:00 Comprehensive LAB 06/29/24 Verified Metabolic Panel 04:00 Magnesium LAB 06/29/24 Verified 04:00 Chest Portable XY 06/29/24 Logged 04:00 Complete Blood Count LAB 06/29/24 Verified 04:00 Date of Service: Jun 28, 2024 Billing Provider: ANISA ROBLES MD Common Visit Codes: [id number] CARE 30-74 MIN ANISA ROBLES MD Jun 28, 2024 14:38
--- NOTE | 2024-06-28 15:13 | DVHPN2 ---
Progress Note Date Seen: Jun 28, 2024 Has the PT tested + for MRSA If YES, has PT been informed?: Yes Medical Necessity Reason Pt with a Central, PICC or Fol: Yes The following are medically ne: Central Line, Rubio Catheter Reason for rubio catheter: Strict I&O Objective vital signs Vital Sign Date Time Temp Pulse Resp B/P (MAP) Pulse Ox O2 Delivery O2 Flow Rate FiO2 06/28/24 15:00 85 12 122/55 (77) 99 06/28/24 13:51 Mechanical Ventilator+ 30 30 06/28/24 11:00 98.8 98.8 06/26/24 18:00 12 Total Intake and Output 06/27/24 06/27/24 06/28/24 15:00 23:00 07:00 Intake Total 20.0 ml 752.5 ml 522 ml Output Total 3250 ml 50 ml Balance 20.0 ml -2497.5 ml 472 ml medications Current Medications Medications Dose Ordered Sig/[place] Route Start Time Stop Time Status Last Admin Dose Admin Enteral Nutritional Formula 1,000 ml 30ML/HR GT 05/30/24 11:00 06/26/24 22:09 1,000 ML Diagnostic Test (Pha) 1 strip Q6HR 06/02/24 12:00 06/28/24 14:35 1 STRIP Dextrose 50 ml UD PRN IV 06/02/24 10:45 06/19/24 04:55 50 ML Heparin Sodium (Porcine) 4,000 units PRN PRN IV 06/07/24 09:00 Hydralazine HCl 100 mg Q8HR PO 06/07/24 14:00 06/28/24 14:35 100 MG Acetylcysteine 100 mg Q6HR NEB 06/09/24 18:00 06/28/24 11:31 100 MG Amlodipine Besylate 10 mg DAILY PO 06/10/24 10:00 06/28/24 08:23 10 MG Enoxaparin Sodium 40 mg DAILY SC 06/10/24 10:00 UNV Enoxaparin Sodium 40 mg DAILY SC 06/17/24 10:00 UNV Epoetin Calin-epbx 10,000 unit TUTHSA SC 06/17/24 12:00 06/28/24 08:25 10,000 UNIT Sodium Chloride 10 ml QSHIFT@ IV 06/17/24 22:00 06/28/24 08:24 10 ML Lactulose 30 ml BID PEG 06/19/24 22:00 06/28/24 08:23 30 ML Acetaminophen 650 mg Q6HP PRN GT 06/20/24 11:30 06/26/24 12:02 650 MG Metoprolol Tartrate 25 mg BID PO 06/23/24 10:00 06/28/24 08:24 25 MG Fentanyl Citrate 250 ml @ 2.5 mls/hr Q24H IV 06/24/24 10:45 06/28/24 08:25 10 MLS/HR Hydralazine HCl 10 mg Q4HP PRN IV 06/24/24 16:45 06/26/24 08:09 10 MG Omeprazole 20 mg DAILY GT 06/26/24 10:00 06/28/24 08:23 20 MG Meropenem 50 ml @ 17 mls/hr Q12H IV 06/27/24 18:00 06/28/24 05:54 17 MLS/HR Albuterol 2.5 mg Q6HPRN PRN NEB 06/28/24 11:30 Linezolid 300 ml @ 150 mls/hr Q12HR IV 06/28/24 22:00 Potassium Bicarbonate 25 meq DAILY PEG 06/29/24 10:00 Examination: GENERAL:Abnormal, LUNGS:Abnormal, ABDOMEN:Abnormal, SKIN:Abnormal, NEURO:Abnormal laboratory and microbiology Laboratory Tests 06/28/24 04:27 Test 06/28/24 04:27 Range/Units Serum Glucose 87 74-106 mg/dL Microbiology Date/Time Source Procedure Growth Status 06/25/24 08:20 Catheter Site Aerobic Culture - Preliminary Resulted 06/24/24 15:35 Blood Blood Culture - Preliminary NO GROWTH AFTER 72 HOURS OF INCUBATION. Resulted 06/11/24 16:06 Bronchial Washings Gram Stain - Final Complete 06/11/24 16:06 Respiratory Culture - Final Acinetobacter baumannii Pseudomonas aeruginosa Complete 05/30/24 11:45 Pleural Fluid Gram Stain - Final Complete 05/30/24 11:45 Pleural Fluid Body Fluid Culture - Final Complete 05/28/24 22:36 Urine - Catheterized Urine Culture - Final Enterobacter cloacae Escherichia coli Enterococcus faecalis - VRE Complete Problem List/Assessment/Plan Problem List/Assessment/Plan Acute kidney injury on chronic kidney disease stage 4 -> ATN Hemodynamically mediated Acute respiratory failure -> now chronic respiratory failure prolonged. trach to vent Anemia suspected due to low blood loss s/p PRBC Hypernatremia Hypokalemia Metabolic acidosis Chronic urinary retention sepsis due to bacteremia HD sunday tunnel catheter was removed due to exit site infection now has temporary HD catheter IV ABX as per ICU with renal dosing Strict Is&Os, monitor output and fluid balance Avoid contrast studies Critically ill Poor candidate for long-term dialysis currently on acute HD Plan discussed with: Other Dietary Evaluation Review Comments: 1) If GI is assessible consider Jevity 1.2 @ 60 ml/hr x24 hrs goal rate as tolerated 2) If pt remains NPO >7 days consider TPN to meet at least 75% of estimated needs 3) Advance pt diet when medically feasible to a Cardiac/Renal Specific K2,2gmNA,low phos,60g Pro diet modified per CASE ASSEMBLER recommendations 4) Continue current plan of care Expected Outcomes/Goals: 1) Pt to receive adequate nutrition support 2) Pt diet to advance Critical Care Time (mins): 33 CC Plasma Assessment Blood Product Administration S: [id number] ANNA ROMERO MD Jun 28, 2024 15:13
[2024-06-28] MEDS: ALBUTEROL SULF 2.5 MG/0.5ML(0.5%) NEB SOLN NEB PRN (18:22)
[2024-06-28] MEDS: LINEZOLID 600MG/300ML 300 ML IV SCH (22:26)
[2024-06-29] VITALS (87 sets, daily range): BP systolic 118–178; BP diastolic 55–93; PULSE 74–109; RESP 12–22; TEMP 97.9–99.5; O2SAT 87–100
--- NOTE | 2024-06-29 00:34 | DVHPN ---
DATE: 06/28/2024 PULMONARY FOLLOWUP Covering for Dr. Kinney. SUBJECTIVE: The patient has a history of acute on chronic respiratory failure, has been on tracheostomy, on a ventilator. The patient is in no distress, is lying flat in bed. The patient is on dialysis. The patient's urine output is minimal. The patient continues to remain on antibiotics. PHYSICAL EXAMINATION: Reveals: VITAL SIGNS: Stable. Heart rate is 85, respiratory rate 16, blood pressure 120/60, saturations were 99% on 30% FiO2. NECK: Supple. No JVD. CHEST: Reveals bibasilar rales. There is diminished air entry on the left side. No wheezing was noted. ABDOMEN: Soft, nontender. PEG tube in place. EXTREMITIES: No edema or clubbing. LABORATORY DATA: Lab work was noted. Chest x-ray was reviewed and shows pulmonary venous congestion. There is small left pleural effusion, possibility of atelectasis versus pneumonia has not entirely excluded. Other lab work: WBC 6, hematocrit 23, has been stable. Platelet count 158, 68% neutrophils. Blood gases; pH 7.50, pCO2 of 34, pO2 of 61, saturation 89%. The patient is on assist control, tidal volume 400, rate of 16, PEEP of 5 and 30% FiO2. Serum chemistry significant for BUN 24, creatinine 2.95, alkaline phosphatase 130, total protein 5.6, albumin 2.3. Influenza A, B and COVID rapid antigen test has been negative within the last few days. The patient had a pleural fluid analysis with WBC of 479, which are predominantly mononuclear. The total protein was 2.4 and an LDH of 101. Cytology is not currently available. Culture: Previous respiratory cultures have shown Acinetobacter baumannii and Pseudomonas aeruginosa. IMPRESSION: Acute on chronic respiratory failure requiring tracheostomy, remains on ventilator, sepsis, encephalopathy, history of acute on chronic renal failure, requiring dialysis, anemia, history of recent seizures. Also, underlying history of hypertension, peripheral vascular disease and malnutrition. PLAN: We will continue current vent settings, vent settings are stable. Continue tube feedings. The patient has had previous multiple bedsores. Continue antibiotics. The patient is on meropenem. Continue med nebs. Prognosis guarded. The patient is awaiting placement to a long-term facility. MD ROGER Dave/ELEAZAR/TINY TID: [id number] RECEIPT: [id number] cc: Beau Agrawal MD
[2024-06-29 05:01] LABS: Basophils # (auto) 0.1 10 ^3/uL (0-0.2); Eosinophils # (auto) 0.6 10 ^3/uL (0-0.8); Hemoglobin 7.3 g/dL (13.5-17.5); Monocytes # (auto) 0.5 10 ^3/uL (0-1.3); Neutrophils # (auto) 3.2 10 ^3/uL (1.6-8.6); Nucleated Red Blood Cells % 0.1 %; Red Blood Cells 2.28 10^6/uL (4.5-5.90); White Blood Cell 5.3 10^3/uL (4.4-10.8)
[2024-06-29 05:03] LABS: Basophils % (auto) 1.5 % (0.0-2.0); Eosinophils % (auto) 10.6 % (0.0-7.0); Lymphocytes % (auto) 18.6 % (10.0-50.0); Mean Corpuscular Hemoglobin 32.1 pg (28.0-32.0); Mean Corpuscular Hgb Conc. 33.2 g/dL (32.0-36.0); Mean Corpuscular Volume 96.7 fL (80.0-100.0); Monocytes % (auto) 9.6 % (0.0-12.0); Neutrophils % (auto) 59.7 % (37.0-80.0); Platelet Count (auto) 166 10^3/uL (140-450)
[2024-06-29 05:15] LABS: Alanine Aminotransferase < 9 U/L (7-40); Alkaline Phosphatase 124 U/L (46-116); Anion Gap 6 (5-15); Aspartate Aminotransferase 21 U/L (13-40); BUN/Creatinine Ratio 8.2 (10.0-20.0); Bilirubin, Total < 0.2 mg/dL (0.2-1.0); Blood Urea Nitrogen 28 mg/dL (9-23); Calcium 9.4 mg/dL (8.7-10.4); Carbon Dioxide 30 mmol/L (20-31); Chloride 107 mmol/L (98-107); Glucose 83 mg/dL (74-106); Potassium 3.8 mmol/L (3.5-5.1); Sodium 143 mmol/L (136-145); Total Protein 5.7 g/dL (5.7-8.2)
[2024-06-29 05:16] LABS: Albumin 2.4 g/dL (3.2-4.8)
--- NOTE | 2024-06-29 05:54 | DVH ---
CHEST RADIOGRAPH Indication: VENT Technique: Single frontal view of the chest was obtained Comparison: XY CHEST XRAY 1 VIEW on DOS: 06/28/24, XY CHEST XRAY 1 VIEW on DOS: 06/27/24, XY CHEST XR AY 1 VIEW on DOS: 06/26/24 IMPRESSION: Heart is prominent in size. Increased opacity in the left perihilar lung. Small left pleural effusio n. Right lung appears relatively clear. No pneumothorax. Support lines and tubes appear unchanged in satisfactory position.
[2024-06-29] MEDS: POTASSIUM EFFERVESENT TAB 25 MEQ PEG SCH (08:11)
--- NOTE | 2024-06-29 14:08 | DVHPN2 ---
Progress Note Date Seen: Jun 29, 2024 Has the PT tested + for MRSA If YES, has PT been informed?: Yes Medical Necessity Reason Pt with a Central, PICC or Fol: Yes The following are medically ne: Central Line, Rubio Catheter Reason for rubio catheter: Strict I&O Subjective Patient reports: Other Review of Systems: HEENT:Abnormal, RESPIRATORY:Abnormal Objective vital signs Vital Sign Date Time Temp Pulse Resp B/P (MAP) Pulse Ox O2 Delivery O2 Flow Rate FiO2 06/29/24 14:00 85 17 156/78 (104) 97 06/29/24 13:59 Trach Collar 8 30 30 06/29/24 11:30 98.1 98.1 Total Intake and Output 06/28/24 06/28/24 06/29/24 15:00 23:00 07:00 Intake Total 112.5 ml 836.0 ml 578.0 ml Output Total 340 ml 450 ml Balance 112.5 ml 496.0 ml 128.0 ml medications Current Medications Medications Dose Ordered Sig/[place] Route Start Time Stop Time Status Last Admin Dose Admin Diagnostic Test (Pha) 1 strip Q6HR 06/02/24 12:00 06/29/24 11:02 1 STRIP Dextrose 50 ml UD PRN IV 06/02/24 10:45 06/19/24 04:55 50 ML Heparin Sodium (Porcine) 4,000 units PRN PRN IV 06/07/24 09:00 Hydralazine HCl 100 mg Q8HR PO 06/07/24 14:00 06/29/24 12:41 100 MG Acetylcysteine 100 mg Q6HR NEB 06/09/24 18:00 06/29/24 11:33 100 MG Amlodipine Besylate 10 mg DAILY PO 06/10/24 10:00 06/29/24 08:12 10 MG Enoxaparin Sodium 40 mg DAILY SC 06/10/24 10:00 UNV Enoxaparin Sodium 40 mg DAILY SC 06/17/24 10:00 UNV Epoetin Calin-epbx 10,000 unit TUTHSA SC 06/17/24 12:00 06/28/24 08:25 10,000 UNIT Sodium Chloride 10 ml QSHIFT@10,22 IV 06/17/24 22:00 06/29/24 08:10 10 ML Lactulose 30 ml BID PEG 06/19/24 22:00 06/29/24 08:10 30 ML Acetaminophen 650 mg Q6HP PRN GT 06/20/24 11:30 06/28/24 17:05 650 MG Metoprolol Tartrate 25 mg BID PO 06/23/24 10:00 06/29/24 08:11 25 MG Fentanyl Citrate 250 ml @ 2.5 mls/hr Q24H IV 06/24/24 10:45 06/28/24 22:42 7.5 MLS/HR Hydralazine HCl 10 mg Q4HP PRN IV 06/24/24 16:45 06/26/24 08:09 10 MG Omeprazole 20 mg DAILY GT 06/26/24 10:00 06/29/24 08:10 20 MG Meropenem 50 ml @ 17 mls/hr Q12H IV 06/27/24 18:00 06/29/24 06:09 17 MLS/HR Albuterol 2.5 mg Q6HPRN PRN NEB 06/28/24 11:30 06/29/24 11:33 2.5 MG Linezolid 300 ml @ 150 mls/hr Q12HR IV 06/28/24 22:00 06/29/24 08:11 150 MLS/HR Potassium Bicarbonate 25 meq DAILY PEG 06/29/24 10:00 06/29/24 08:11 25 MEQ Examination: GENERAL:Abnormal, LUNGS:Abnormal, CVS:Abnormal laboratory and microbiology Laboratory Tests 06/29/24 04:45 Test 06/29/24 04:45 Range/Units Serum Glucose 83 74-106 mg/dL Microbiology Date/Time Source Procedure Growth Status 06/25/24 08:20 Catheter Site Aerobic Culture - Preliminary Resulted 06/24/24 15:35 Blood Blood Culture - Preliminary NO GROWTH AFTER 72 HOURS OF INCUBATION. Resulted 06/11/24 16:06 Bronchial Washings Gram Stain - Final Complete 06/11/24 16:06 Respiratory Culture - Final Acinetobacter baumannii Pseudomonas aeruginosa Complete 05/30/24 11:45 Pleural Fluid Gram Stain - Final Complete 05/30/24 11:45 Pleural Fluid Body Fluid Culture - Final Complete 05/28/24 22:36 Urine - Catheterized Urine Culture - Final Enterobacter cloacae Escherichia coli Enterococcus faecalis - VRE Complete Problem List/Assessment/Plan Problem List/Assessment/Plan Acute kidney injury on chronic kidney disease stage 4 -> ATN Hemodynamically mediated Acute respiratory failure -> now chronic respiratory failure prolonged. trach to vent Anemia suspected due to low blood loss s/p PRBC Hypernatremia Hypokalemia Metabolic acidosis Chronic urinary retention sepsis due to bacteremia HD sunday tunnel catheter was removed due to exit site infection now has temporary HD catheter IV ABX as per ICU with renal dosing Strict Is&Os, monitor output and fluid balance Avoid contrast studies Critically ill Poor candidate for long-term dialysis currently on acute HD Plan discussed with: Other Dietary Evaluation Review Comments: 1) If GI is assessible consider Jevity 1.2 @ 60 ml/hr x24 hrs goal rate as tolerated 2) If pt remains NPO >7 days consider TPN to meet at least 75% of estimated needs 3) Advance pt diet when medically feasible to a Cardiac/Renal Specific K2,2gmNA,low phos,60g Pro diet modified per TERRITORY REPRESENTATIVE recommendations 4) Continue current plan of care Expected Outcomes/Goals: 1) Pt to receive adequate nutrition support 2) Pt diet to advance CC Plasma Assessment Blood Product Administration S: [id number] ANNA ROMERO MD Jun 29, 2024 14:08
--- NOTE | 2024-06-29 15:00 | DVHPN2 ---
Subjective Sedated. Ventilator support via tracheostomy Reviewed: Care Plan, H&P, Labs, Medications, Previous Orders, Radiology, Other (Consultants) Changes from previous H/P or p: No Changes General: Per HPI Objective Vitals Vital Signs Date Time Temp Pulse Resp B/P (MAP) Pulse Ox O2 Delivery O2 Flow Rate FiO2 06/29/24 14:00 85 17 156/78 (104) 97 06/29/24 13:59 Trach Collar 8 30 30 06/29/24 11:30 98.1 98.1 Intake/Output Intake and Output 06/29/24 07:00 Intake Total 1526.5 ml Output Total 790 ml Balance 736.5 ml Intake Oral 300 ml IV Total 600.5 ml Tube Feeding 626 ml Output Urine Total 165 ml Stool Total 625 ml General Appearance: Other (Sedated) HEENT: Atraumatic Lungs: Other (Few crackles bilateral lungs) Cardiovascular: Regular rate Abdomen: Normal bowel sounds, Soft Extremities: Other (Some bilateral lower extremity edema) Medications Current Medications Medications Dose Ordered Sig/[place] Route Start Time Stop Time Status Last Admin Dose Admin Diagnostic Test (Pha) 1 strip Q6HR 06/02/24 12:00 06/29/24 11:02 1 STRIP Dextrose 50 ml UD PRN IV 06/02/24 10:45 06/19/24 04:55 50 ML Heparin Sodium (Porcine) 4,000 units PRN PRN IV 06/07/24 09:00 Hydralazine HCl 100 mg Q8HR PO 06/07/24 14:00 06/29/24 12:41 100 MG Acetylcysteine 100 mg Q6HR NEB 06/09/24 18:00 06/29/24 11:33 100 MG Amlodipine Besylate 10 mg DAILY PO 06/10/24 10:00 06/29/24 08:12 10 MG Enoxaparin Sodium 40 mg DAILY SC 06/10/24 10:00 UNV Enoxaparin Sodium 40 mg DAILY SC 06/17/24 10:00 UNV Epoetin Calin-epbx 10,000 unit TUTHSA SC 06/17/24 12:00 06/28/24 08:25 10,000 UNIT Sodium Chloride 10 ml QSHIFT@10,22 IV 06/17/24 22:00 06/29/24 08:10 10 ML Lactulose 30 ml BID PEG 06/19/24 22:00 06/29/24 08:10 30 ML Acetaminophen 650 mg Q6HP PRN GT 06/20/24 11:30 06/28/24 17:05 650 MG Metoprolol Tartrate 25 mg BID PO 06/23/24 10:00 06/29/24 08:11 25 MG Fentanyl Citrate 250 ml @ 2.5 mls/hr Q24H IV 06/24/24 10:45 06/28/24 22:42 7.5 MLS/HR Hydralazine HCl 10 mg Q4HP PRN IV 06/24/24 16:45 06/26/24 08:09 10 MG Omeprazole 20 mg DAILY GT 06/26/24 10:00 06/29/24 08:10 20 MG Meropenem 50 ml @ 17 mls/hr Q12H IV 06/27/24 18:00 06/29/24 06:09 17 MLS/HR Albuterol 2.5 mg Q6HPRN PRN NEB 06/28/24 11:30 06/29/24 11:33 2.5 MG Linezolid 300 ml @ 150 mls/hr Q12HR IV 06/28/24 22:00 06/29/24 08:11 150 MLS/HR Potassium Bicarbonate 25 meq DAILY PEG 06/29/24 10:00 06/29/24 08:11 25 MEQ Laboratory Results Laboratory Tests 06/29/24 04:45 Chemistry Test 06/29/24 04:45 Albumin 2.4 g/dL (3.2-4.8) L Calcium Level 9.4 mg/dL (8.7-10.4) Magnesium Level 2.0 mg/dL (1.6-2.6) Total Protein 5.7 g/dL (5.7-8.2) LFT Test 06/29/24 04:45 Alanine Aminotransferase (ALT) < 9 U/L (7-40) Alkaline Phosphatase 124 U/L (46-116) H Aspartate Amino Transferase (AST) 21 U/L (13-40) Total Bilirubin < 0.2 mg/dL (0.2-1.0) L Urinalysis Test 05/28/24 22:36 05/30/24 04:30 Urine Color Dark-brown (Yellow) Urine Clarity Ex.turbid (Clear) Urine pH 6.0 (5.0-9.0) Urine Specific [place] 1.017 (1.001-1.035) Urine Protein 2+ (Negative) H Urine Ketones Trace (Negative) Urine Blood 1+ /uL (Negative) H Urine Nitrite Negative (Negative) Urine Bilirubin Negative (Negative) Urine Urobilinogen Normal mg/dL (Negative) Urine Leukocyte Esterase 3+ /uL (Negative) Urine RBC 56 /hpf (0 - 3) Urine WBC 3664 /hpf (0 - 3) Urine WBC Clumps Present /hpf (None Seen) Urine Squamous Epithelial Cells Many /hpf (<5) Urine Bacteria Mod /hpf (None Seen) H Urine Glucose Normal mg/dL (Normal) Urine Creatinine 33.57 mg/dL (30.0-125.0) Urine Sodium 85 mmol/L (40-220) Microbiology Microbiology Date/Time Source Procedure Growth Status 06/25/24 08:20 Catheter Site Aerobic Culture - Preliminary Resulted 06/24/24 15:35 Blood Blood Culture - Preliminary NO GROWTH AFTER 72 HOURS OF INCUBATION. Resulted 06/11/24 16:06 Bronchial Washings Gram Stain - Final Complete 06/11/24 16:06 Respiratory Culture - Final Acinetobacter baumannii Pseudomonas aeruginosa Complete 05/30/24 11:45 Pleural Fluid Gram Stain - Final Complete 05/30/24 11:45 Pleural Fluid Body Fluid Culture - Final Complete 05/28/24 22:36 Urine - Catheterized Urine Culture - Final Enterobacter cloacae Escherichia coli Enterococcus faecalis - VRE Complete Assessment/Plan Assessment/Plan Respiratory failure Sepsis and septic shock Encephalopathy Acute kidney injury atop chronic kidney disease/needing dialysis Anemia status post blood transfusion Thrombocytopenia History of recent seizure Peripheral artery disease and status post right AKA HTN UTI Infection with MRSA and Enterobacter cloaca Severe protein deficient malnutrition Plan: Some IV fluid to help with the kidney function temporarily. Continue Zyvox and meropenem. Further plan per orders Plan discussed with: Son My Orders Orders - ANISA ROBLES MD Procedure Category Date Status Time Complete Blood Count LAB 06/30/24 Verified 04:00 Comprehensive LAB 06/30/24 Verified Metabolic Panel 04:00 Magnesium LAB 06/30/24 Verified 04:00 Phosphorus LAB 06/30/24 Verified 04:00 Chest Portable XY 06/30/24 Logged 04:00 Date of Service: Jun 29, 2024 Billing Provider: ANISA ROBLES MD Common Visit Codes: [id number] INP/OBS CARE(HIGH) AINSA ROBLES MD Jun 29, 2024 15:00
[2024-06-29] MEDS: SODIUM CHLORIDE 0.9% 1,000 ML IV SCH (17:15)
--- NOTE | 2024-06-29 18:40 | DVHPN ---
DATE: 06/29/2024 PULMONARY FOLLOWUP The patient has been on trach collar most of the day. No significant secretions reported by bedside RN. The patient has not been running any fever. Urine output has been stable. The patient is getting tube feedings. The patient is in no acute distress. PHYSICAL EXAMINATION: VITAL SIGNS: Afebrile, heart rate 80, respiratory rate 18, blood pressure 160/70, saturations 98 on trach collar at 30% FIO2. NECK: Supple. No JVD. CHEST: Reveals bibasilar rales, diminished air entry at bases. No wheezing. ABDOMEN: Soft, nontender. Bowel sounds normal. PEG tube in place. EXTREMITIES: No edema. LABORATORY WORK: Chest x-ray shows increased opacity in the left perihilar area. Small left pericardial effusion. Other labwork noted. WBC 5.3, hematocrit 22, platelet count 166, 59% neutrophils. Serum chemistries significant for BUN 28, creatinine 3.4, alkaline phosphatase 124, albumin 2.4. Others were noted. IMPRESSION: Acute respiratory failure, renal insufficiency, on dialysis. Also, has history of sepsis, history of encephalopathy, anemia, thrombocytopenia, recent seizures. Infection with Enterobacter cloacae and MRSA and malnutrition. Plan from pulmonary perspective appears to be stable. Continue current use of ventilator as needed. Incentive spirometry, titrate oxygen, keep saturations greater than 90%, nutritional supplement. The patient remains on meropenem and Zyvox. The patient's prognosis overall is guarded. Dr. Palomo will resume critical care in the morning. MD ROGER Dave/WILFREDO TID: [id number] RECEIPT: [id number]
[2024-06-30] VITALS (108 sets, daily range): BP systolic 130–176; BP diastolic 58–132; PULSE 71–181; RESP 11–23; TEMP 97.2–98.5; O2SAT 92–100
--- NOTE | 2024-06-30 05:04 | DVH ---
CHEST RADIOGRAPH Indication: TRACH TO VENT Technique: Single frontal view of the chest was obtained COMPARISON: XY CHEST PORTABLE on DOS: 06/29/24, XY CHEST XRAY 1 VIEW on DOS: 06/28/24, XY CHEST XRAY 1 VIEW on DOS: 06/27/24, XY CHEST XRAY 1 VIEW on DOS: 06/27/24 FINDINGS: Lines and Tubes: Tracheostomy and left central venous catheter and left PICC in satisfactory position . Lungs: Congestion. Pleura: No effusion. No pneumothorax. Cardiomediastinal contours: Unremarkable Bones: Unremarkable IMPRESSION: Lines and tubes in satisfactory position. No significant interval change.
[2024-06-30 05:07] LABS: Basophils # (auto) 0 10 ^3/uL (0-0.2); Eosinophils # (auto) 0.4 10 ^3/uL (0-0.8); Monocytes # (auto) 0.4 10 ^3/uL (0-1.3); Nucleated Red Blood Cells % 0.1 %; White Blood Cell 5.1 10^3/uL (4.4-10.8)
[2024-06-30 05:11] LABS: Basophils % (auto) 0.9 % (0.0-2.0); Hematocrit 24.4 % (41.0-53.0); Lymphocytes # (auto) 0.8 10 ^3/uL (0.4-5.4); Mean Corpuscular Hemoglobin 32.1 pg (28.0-32.0); Mean Corpuscular Hgb Conc. 32.9 g/dL (32.0-36.0); Mean Corpuscular Volume 97.8 fL (80.0-100.0); Monocytes % (auto) 8.8 % (0.0-12.0); Neutrophils # (auto) 3.4 10 ^3/uL (1.6-8.6); Neutrophils % (auto) 67.3 % (37.0-80.0); Platelet Count (auto) 180 10^3/uL (140-450); Red Blood Cells 2.49 10^6/uL (4.5-5.90)
[2024-06-30 05:24] LABS: Alanine Aminotransferase < 9 U/L (7-40); Albumin 2.3 g/dL (3.2-4.8); Alkaline Phosphatase 140 U/L (46-116); Anion Gap 7 (5-15); Aspartate Aminotransferase 20 U/L (13-40); BUN/Creatinine Ratio 8.8 (10.0-20.0); Blood Urea Nitrogen 32 mg/dL (9-23); Calcium 9.4 mg/dL (8.7-10.4); Carbon Dioxide 29 mmol/L (20-31); Chloride 107 mmol/L (98-107); Glucose 94 mg/dL (74-106); Potassium 3.7 mmol/L (3.5-5.1); Sodium 143 mmol/L (136-145); Total Protein 5.9 g/dL (5.7-8.2)
[2024-06-30 05:25] LABS: Bilirubin, Total < 0.2 mg/dL (0.2-1.0); Phosphorus 2.4 mg/dL (2.4-5.1)
[2024-06-30 05:26] LABS: Red Cell Distribution Width 20.3 % (11.8-14.3)
--- NOTE | 2024-06-30 09:52 | DVHPN2 ---
Progress Note Date Seen: Jun 30, 2024 Has the PT tested + for MRSA If YES, has PT been informed?: Yes Medical Necessity Reason Pt with a Central, PICC or Fol: Yes The following are medically ne: Central Line, Rubio Catheter Reason for rubio catheter: Strict I&O Subjective Patient reports: No new complaints Other Systems: Patient seen and examined by myself in follow-up today Patient is trached and ventilator Objective vital signs Vital Sign Date Time Temp Pulse Resp B/P (MAP) Pulse Ox O2 Delivery O2 Flow Rate FiO2 06/30/24 09:19 100 Trach Collar 10.0 06/30/24 09:18 35 35 06/30/24 08:00 98.5 90 12 149/73 (98) 98.5 Total Intake and Output 06/29/24 06/29/24 06/30/24 14:59 22:59 06:59 Intake Total 366.0 ml 1512.5 ml 1022.5 ml Output Total 350 ml 600 ml Balance 366.0 ml 1162.5 ml 422.5 ml medications Current Medications Medications Dose Ordered Sig/[place] Route Start Time Stop Time Status Last Admin Dose Admin Diagnostic Test (Pha) 1 strip Q6HR 06/02/24 12:00 06/30/24 05:40 1 STRIP Dextrose 50 ml UD PRN IV 06/02/24 10:45 06/19/24 04:55 50 ML Heparin Sodium (Porcine) 4,000 units PRN PRN IV 06/07/24 09:00 Hydralazine HCl 100 mg Q8HR PO 06/07/24 14:00 06/30/24 05:40 100 MG Acetylcysteine 100 mg Q6HR NEB 06/09/24 18:00 06/30/24 05:52 100 MG Amlodipine Besylate 10 mg DAILY PO 06/10/24 10:00 06/29/24 08:12 10 MG Enoxaparin Sodium 40 mg DAILY SC 06/10/24 10:00 UNV Enoxaparin Sodium 40 mg DAILY SC 06/17/24 10:00 UNV Epoetin Calin-epbx 10,000 unit TUTHSA SC 06/17/24 12:00 06/28/24 08:25 10,000 UNIT Sodium Chloride 10 ml QSHIFT@10,22 IV 06/17/24 22:00 06/29/24 20:03 10 ML Lactulose 30 ml BID PEG 06/19/24 22:00 06/29/24 19:59 30 ML Acetaminophen 650 mg Q6HP PRN GT 06/20/24 11:30 06/28/24 17:05 650 MG Metoprolol Tartrate 25 mg BID PO 06/23/24 10:00 06/29/24 20:00 25 MG Fentanyl Citrate 250 ml @ 2.5 mls/hr Q24H IV 06/24/24 10:45 06/28/24 22:42 7.5 MLS/HR Hydralazine HCl 10 mg Q4HP PRN IV 06/24/24 16:45 06/30/24 00:06 10 MG Omeprazole 20 mg DAILY GT 06/26/24 10:00 06/29/24 08:10 20 MG Meropenem 50 ml @ 17 mls/hr Q12H IV 06/27/24 18:00 06/30/24 05:40 17 MLS/HR Albuterol 2.5 mg Q6HPRN PRN NEB 06/28/24 11:30 06/30/24 05:52 2.5 MG Linezolid 300 ml @ 150 mls/hr Q12HR IV 06/28/24 22:00 06/29/24 20:03 150 MLS/HR Potassium Bicarbonate 25 meq DAILY PEG 06/29/24 10:00 06/29/24 08:11 25 MEQ Sodium Chloride 1,000 ml @ 75 mls/hr [id number] IV 06/29/24 15:00 06/30/24 05:41 75 MLS/HR Examination: LUNGS:Normal, CVS:Normal, MSK:Normal laboratory and microbiology Laboratory Tests 06/30/24 04:40 Test 06/30/24 04:40 Range/Units Serum Glucose 94 74-106 mg/dL Microbiology Date/Time Source Procedure Growth Status 06/28/24 15:27 Blood Blood Culture - Preliminary NO GROWTH AFTER 24 HOURS OF INCUBATION. Resulted 06/25/24 08:20 Catheter Site Aerobic Culture - Preliminary Resulted 06/11/24 16:06 Bronchial Washings Gram Stain - Final Complete 06/11/24 16:06 Respiratory Culture - Final Acinetobacter baumannii Pseudomonas aeruginosa Complete 05/30/24 11:45 Pleural Fluid Gram Stain - Final Complete 05/30/24 11:45 Pleural Fluid Body Fluid Culture - Final Complete 05/28/24 22:36 Urine - Catheterized Urine Culture - Final Enterobacter cloacae Escherichia coli Enterococcus faecalis - VRE Complete Problem List/Assessment/Plan Problem List/Assessment/Plan Acute kidney injury superimposed on chronic kidney disease stage 4, oliguric requiring initiation of hemodialysis D Acute respiratory failure, patient is trached on the ventilator Anemia suspected due to low blood loss s/p PRBC Septic shock Hypernatremia Hypokalemia Peripheral arterial disease Right above knee amputation Metabolic acidosis Chronic urinary retention MRSA bacteremia Recommendations Hemodialysis tomorrow Epogen 31118 IV post hemodialysis Rubio catheter Strict I&Os KCL replacement IV pressor for blood pressure support IV antibiotic per ID consult Radiology for tunneled hemodialysis catheter when the blood culture negative for 72 hours We will continue to follow Plan discussed with: Other (Nurse) Dietary Evaluation Review Comments: 1) If GI is assessible consider Jevity 1.2 @ 60 ml/hr x24 hrs goal rate as tolerated 2) If pt remains NPO >7 days consider TPN to meet at least 75% of estimated needs 3) Advance pt diet when medically feasible to a Cardiac/Renal Specific K2,2gmNA,low phos,60g Pro diet modified per FUNERAL COUNSELOR recommendations 4) Continue current plan of care Expected Outcomes/Goals: 1) Pt to receive adequate nutrition support 2) Pt diet to advance CC Plasma Assessment Blood Product Administration S: [id number] DAVID TORRES MD Jun 30, 2024 09:51
--- NOTE | 2024-06-30 14:40 | DVHPNRES ---
Progress Note Date Seen: Jun 30, 2024 Resident Creating Document: THA CRISOSTOMO RESIDENT Has the PT tested + for MRSA If YES, has PT been informed?: Yes Medical Necessity Reason Pt with a Central, PICC or Fol: Yes The following are medically ne: Central Line, Rubio Catheter Reason for rubio catheter: Strict I&O Subjective Review of Systems This is a 65-year-old male with past medical history of CHF, CKD, COPD, dyslipidemia, hypertension, CVA brought to the hospital with shortness of breaths and at the level of consciousness. Admitted and intubated on 05/28, extubated on 06/09 but reintubated on 06/10. Epigastric performed on 06/13, PEG tube placed on 06/15. Patient seen and examined at bedside. Patient is intubated and mechanically ventilated. Objective vital signs Vital Sign Date Time Temp Pulse Resp B/P (MAP) Pulse Ox O2 Delivery O2 Flow Rate FiO2 06/30/24 14:04 16 100 Trach Collar 10 30 30 06/30/24 14:04 79 06/30/24 13:45 142/62 (88) 06/30/24 12:00 98.5 98.5 Total Intake and Output 06/29/24 06/29/24 06/30/24 15:00 23:00 07:00 Intake Total 341.5 ml 1592.5 ml 1042.0 ml Output Total 350 ml 600 ml Balance 341.5 ml 1242.5 ml 442.0 ml medications Current Medications Medications Dose Ordered Sig/[place] Route Start Time Stop Time Status Last Admin Dose Admin Diagnostic Test (Pha) 1 strip Q6HR 06/02/24 12:00 06/30/24 12:18 1 STRIP Dextrose 50 ml UD PRN IV 06/02/24 10:45 06/19/24 04:55 50 ML Heparin Sodium (Porcine) 4,000 units PRN PRN IV 06/07/24 09:00 Hydralazine HCl 100 mg Q8HR PO 06/07/24 14:00 06/30/24 05:40 100 MG Acetylcysteine 100 mg Q6HR NEB 06/09/24 18:00 06/30/24 11:26 100 MG Amlodipine Besylate 10 mg DAILY PO 06/10/24 10:00 06/30/24 10:02 10 MG Enoxaparin Sodium 40 mg DAILY SC 06/10/24 10:00 UNV Enoxaparin Sodium 40 mg DAILY SC 06/17/24 10:00 UNV Epoetin Morena-epbx 10,000 unit TUTHSA SC 06/17/24 12:00 Hold 06/28/24 08:25 10,000 UNIT Sodium Chloride 10 ml QSHIFT@10,22 IV 06/17/24 22:00 06/30/24 10:00 10 ML Lactulose 30 ml BID PEG 06/19/24 22:00 06/30/24 10:01 30 ML Acetaminophen 650 mg Q6HP PRN GT 06/20/24 11:30 06/28/24 17:05 650 MG Metoprolol Tartrate 25 mg BID PO 06/23/24 10:00 06/30/24 10:01 25 MG Fentanyl Citrate 250 ml @ 2.5 mls/hr Q24H IV 06/24/24 10:45 06/28/24 22:42 7.5 MLS/HR Hydralazine HCl 10 mg Q4HP PRN IV 06/24/24 16:45 06/30/24 00:06 10 MG Omeprazole 20 mg DAILY GT 06/26/24 10:00 06/30/24 09:59 20 MG Meropenem 50 ml @ 17 mls/hr Q12H IV 06/27/24 18:00 06/30/24 05:40 17 MLS/HR Albuterol 2.5 mg Q6HPRN PRN NEB 06/28/24 11:30 06/30/24 11:26 2.5 MG Linezolid 300 ml @ 150 mls/hr Q12HR IV 06/28/24 22:00 06/30/24 10:00 150 MLS/HR Potassium Bicarbonate 25 meq DAILY PEG 06/29/24 10:00 06/30/24 10:00 25 MEQ Sodium Chloride 1,000 ml @ 75 mls/hr [id number] IV 06/29/24 15:00 06/30/24 05:41 75 MLS/HR Examination Patient lying in bed, in no acute distress General: afebrile, palor, mucosae are moist Cardiovascular: Regular S1 and S2. No murmurs, gallops or rubs. No JVD elevation. Pitting edema 3+ noted in the lower extremities. Right knee above amputation. Left toes amputated. Respiratory: Decreased B/L air entry on 30% FiO2. Abdomen: Soft, nontender, nondistended, normoactive bowel sounds, no rebound tenderness, no organomegaly, no masses Genitourinary: Deferred MSK/skin: Extremity movement not assessed. Skin is dry and warm Neurological: No motor, no sensitive deficits, normal speech. Pupils are isocoric and reactive. laboratory and microbiology Laboratory Tests 06/30/24 04:40 Test 06/30/24 04:40 Range/Units Serum Glucose 94 74-106 mg/dL Microbiology Date/Time Source Procedure Growth Status 06/28/24 15:27 Blood Blood Culture - Preliminary NO GROWTH AFTER 24 HOURS OF INCUBATION. Resulted 06/25/24 08:20 Catheter Site Aerobic Culture - Preliminary Resulted 06/11/24 16:06 Bronchial Washings Gram Stain - Final Complete 06/11/24 16:06 Respiratory Culture - Final Acinetobacter baumannii Pseudomonas aeruginosa Complete 05/30/24 11:45 Pleural Fluid Gram Stain - Final Complete 05/30/24 11:45 Pleural Fluid Body Fluid Culture - Final Complete 05/28/24 22:36 Urine - Catheterized Urine Culture - Final Enterobacter cloacae Escherichia coli Enterococcus faecalis - VRE Complete Labs and/or images reviewed: Labs reviewed by me, Image(s) reviewed by me Problem List/Assessment/Plan Problem List/Assessment/Plan NEURO: Acute metabolic encephalopathy likely due to sepsis History of seizure Patient is sedated and on mechanical ventilation, RASS scores -4 History of seizure during last admission(1 month back) used Keppra for 1 week Discontinued Keppra, on 06/16 EEG shows abnormal EEG recording consistent with the presence of a diffuse nonspecific encephalopathic state CARDIOVASCULAR: Hypertension Continue home medication, injection hydralazine 10 mg q.6 hours as needed Continue amlodipine 10 mg, metoprolol 25 mg b.i.d., hydralazine 100 mg t.i.d. PULMONARY: Acute Hypoxic Respiratory Failure likely due to pneumonia Septic shock likely due to pneumonia, improved Pneumonia likely due to MRSA and Enterobacter cloacae - Patient is sedated and mechanically ventilated with PEEP of 30% - CT scan shows [id number] left pleural effusion - MRSA nares screening, COVID-19 and flu are negative - Bronchoscopy performed on 06/11, there was some thin mucus secretion on bilateral side, bronchial lavage of right lower lobe and left lower lobe was performed, and the culture results shows Pseudomonas aeruginosa and Enterobacter baumanni, MDR; ID has been consulted - Sputum culture from bronchoalveolar lavage from 05/24/24 shows MRSA, Enterobacter cloacae - Blood culture from the 06/02/24 shows Staphylococcus epidermidis , Staph hominis - Repeat culture from 06/09/2024 shows no growth - Stopped in linezolid, given for 11 days, discontinued meropenem, started on 06/08 and given for 12 days - Continue N-acetylcysteine - Breathing treatment q.6 hours p.r.n. - Trach collar trial, 1 hour b.i.d. as tolerated, today was tried on 10 lit of O2 and FiO2 30%, and the patient developed tachypnea during the trial GI - GI ppx: omeprazole 20mg daily via OG tube - Hepatitis-C virus antibody positive - Repeat stool occult blood test is negative - CT abdominopelvic without contrast shows no evidence of intra-abdominal hemorrhage - Tracheostomy is performed on 06/13 - PEG tube is placed on 06/15 - Bowel regimen: Lactulose 30 mL b.i.d. : FROYLAN, possible VMN on ESRD requiring hemodialysis - Nephrology consulted, epoetin [place]na [id number] units SC post dialysis. probable hemodialysis tomorrow. Two bags of 1 L NS ordered for 07/01. Radiology for tunneled hemodialysis catheter when the blood culture negative for 72 hours - Stopped Bumix 1mg BID - Homer catheter placed on left internal jugular, on 06/26 UTI, urinalysis shows UTI picture - Urine culture from 05/28/2024 shows Enterobacter, E coli, Enterococcus faecalis Status post limb amputation, right lower limb, above the knee likely due to PAD Decubitus ulcer - There are multiple grade 3-4 sacral ulcers - position changing every 2 hours and dressing HEME Severe anemia, transfused 4 pack of red blood cells Thrombocytopenia - current HB is 8 ID: - Sputum culture from bronchoalveolar lavage from 05/24/24 shows MRSA, Enterobacter cloacae - Blood culture from the 06/02/24 shows Staphylococcus epidermidis , Staph hominis - Repeat culture from 06/09/2024 shows no growth - culture results from BAL from 06/11 shows Pseudomonas aeruginosa and Enterobacter baumanni, MDR - continue IV linezolid starting 06/28 and meropenem starting 06/25 - previously received vancomycin - catheter site culture 06/25 completed shows MRSA, Acinetobacter baumannii MDRO, Enterococcus faecalis. SKIN Possible keloid - There is a growth on the left shoulder, per son, lesion has been present for several years - Follow up on outpatient basis Metabolic: Hypernatremia, improved Hypokalemia, discontinued potassium supplementation given ESRD Hyperkalemia, improved Mild hyponatremia, monitoring Hypoglycemic episodes, improved Hypomagnesemia, supplemented LINES/DRAINS/ACCESS: ETT, intubated on 05/28/2024 and tracheostomy performed on 06/11, PEG tube placed on 06/15 IV access Left internal jugular CVC, placed on 06/26 Suprapubic catheter, changed on 06/02/2020 Dripps: Fentanyl 50 No pressor DIET: Nepro 30 mL/hour DVT prophylaxis Heparin 2000 units Disposition: social work job titles consulted for transfer to the [facility] critical care time excluding procedures is 58 mins CODE STATUS: Full code Case discussed with Dr. Isabel. Discontinued IV NS. Discontinued potassium supplementation given ESRD. Probable dialysis tomorrow 07/01. Patient will require tunneled catheter for hemodialysis. Plan discussed with: Patient Dietary Evaluation Review Comments: 1) If GI is assessible consider Jevity 1.2 @ 60 ml/hr x24 hrs goal rate as tolerated 2) If pt remains NPO >7 days consider TPN to meet at least 75% of estimated needs 3) Advance pt diet when medically feasible to a Cardiac/Renal Specific K2,2gmNA,low phos,60g Pro diet modified per [employer] M[employer]IN[employer] INSTRUCTOR recommendations 4) Continue current plan of care Expected Outcomes/Goals: 1) Pt to receive adequate nutrition support 2) Pt diet to advance CC Plasma Assessment Blood Product Administration S: [id number] Date of Service: Jun 30, 2024 Billing Provider: HOLGER ISABEL MD Common Visit Codes: [id number] CARE 30-74 MIN THA CRISOSTOMO RESIDENT Jun 30, 2024 14:40 HOLGER ISABEL MD Jul 01, 2024 16:30
[2024-07-01] VITALS (100 sets, daily range): BP systolic 146–194; BP diastolic 65–96; PULSE 73–94; RESP 13–26; TEMP 98.1–98.9; O2SAT 91–100
--- NOTE | 2024-07-01 00:01 | DVHINCON2 ---
Date of service: Jun 30, 2024 Family History: Cerebrovascular accident (CVA) G8 FATHER Allergies: Coded Allergies: Meperidine (Verified Allergy, Unknown, 04/18/23) Home Meds Active Scripts Sevelamer Hydrochloride (Renagel) 800 Mg Tab, 800 MG PO TIDWM for 30 Days, #90 TAB Prov:DORA DELGADILLO MD 04/03/24 Sodium Bicarbonate (Sodium Bicarbonate) 650 Mg Tab, 650 MG PO QID for 14 Days, #56 TAB Prov:DORA DELGADILLO MD 04/03/24 Levetiracetam (KEPPRA TABLET) 500 Mg Tb, 750 MG PO BID for 30 Days, #90 TAB Prov:DORA DELGADILLO MD 04/03/24 Carvedilol (COREG) 3.125 Mg Tab, 6.25 MG PO Q12HR, #60 TAB Prov:MALCOLM WILLOUGHBY MD 08/21/18 Atorvastatin Calcium (ATORVASTATIN CALCIUM) 20 Mg Tab, 40 MG PO DAILY, #30 TAB Prov:MALCOLM WILLOUGHBY MD 08/21/18 Reported Medications Bumetanide (Bumetanide) 1 Mg Tab, 1 TAB PO DAILY for 30 Days, #30 03/24/24 Metolazone (Metolazone) 10 Mg Tab, 1 TAB PO DAILY for 30 Days, #30 03/24/24 Gabapentin (Gabapentin) 100 Mg Cap, 800 MG PO Q8HR PRN for 30 Days, #90 03/24/24 Hydralazine Hcl (Hydralazine Hcl) 100 Mg Tab, 1 TAB PO Q12HR for 15 Days, #30 03/24/24 Clonidine Hydrochloride (Clonidine Hydrocloride) 0.1 Mg Tab, 0.2 MG PO Q8HR PRN for 30 Days, #90 03/24/24 Lorazepam (Lorazepam) 0.5 Mg Tab, 0.25 MG PO DAILYPRN PRN for ANXIETY, TAB 12/30/23 Ped Multivitamins W/Fl & Iron (Multi-Vit/Iron/Fluoride) /Fl 0.25 August, 1 ML PO DAILY, #100 ML 3 Refills 12/30/23 Sertraline Hcl (Zoloft) 25 Mg Tab, 1 TAB PO DAILY for 30 Days 12/30/23 Hydrocodone-Acetaminophen (Hydrocodone Bitartrate/AC 5-325 mg) 1 Tab Tab, 1 TAB PO QIDPRN PRN for PAIN SCALE 1 THRU 6, TAB 12/30/23 Famotidine (Famotidine) 20 Mg Tab, 1 TAB PO DAILY for 30 Days, #30 12/30/23 Bisacodyl (Dulcolax) 10 Mg Sup, 100 MG PO DAILY, SUPP 12/30/23 Fluticasone Propionate (Nasal) (Fluticasone Propionate Na) 50 Mcg/Act Spr, 1 SPRAY PARKER BID 11/06/23 Memantine HCl (Memantine Hydrochloride) 5 Mg Tab, 1 TAB PO DAILY 11/06/23 Levothyroxine Sodium (Levothyroxine Sodium) 50 Mcg Tab, 1 TAB PO QAM for 30 Days, #30 05/29/23 Apixaban Base (ELIQUIS) 2.5 Mg Tab, 1 TAB PO BID for 30 Days, #60 11/27/22 Amlodipine Besylate (Amlodipine Besylate) 10 Mg Tab, 1 TAB PO DAILY 11/27/22 Vital Signs Vital Signs Date Time Temp Pulse Resp B/P (MAP) Pulse Ox O2 Delivery O2 Flow Rate FiO2 06/30/24 22:13 87 159/67 06/30/24 18:45 18 98 06/30/24 18:17 Trach Collar 10.0 06/30/24 18:17 35 35 06/30/24 16:00 98.5 98.5 Labs/Diagnostic Data Labs Test 06/30/24 17:42 06/30/24 04:40 06/28/24 07:13 06/28/24 04:27 Range/Units POC Glucose 81 70-106 mg/dl White Blood Count 5.1 4.4-10.8 10^3/uL Red Blood Count 2.49 L 4.5-5.90 10^6/uL Hemoglobin 8.0 L 13.5-17.5 g/dL Hematocrit 24.4 #L 41.0-53.0 % Mean Corpuscular Volume 97.8 80.0-100.0 fL Mean Corpuscular Hemoglobin 32.1 H 28.0-32.0 pg Mean Corpuscular Hemoglobin Concent 32.9 32.0-36.0 g/dL Red Cell Distribution Width 20.3 H 11.8-14.3 % Platelet Count 180 140-450 10^3/uL Mean Platelet Volume 7.1 6.9-10.8 fL Neutrophils (%) (Auto) 67.3 37.0-80.0 % Lymphocytes (%) (Auto) 15.0 10.0-50.0 % Monocytes (%) (Auto) 8.8 0.0-12.0 % Eosinophils (%) (Auto) 8.0 H 0.0-7.0 % Basophils (%) (Auto) 0.9 0.0-2.0 % Neutrophils # (Auto) 3.4 1.6-8.6 10 ^3/uL Lymphocytes # (Auto) 0.8 0.4-5.4 10 ^3/uL Monocytes # (Auto) 0.4 0-1.3 10 ^3/uL Eosinophils # (Auto) 0.4 0-0.8 10 ^3/uL Basophils # (Auto) 0 0-0.2 10 ^3/uL Nucleated Red Blood Cells 0.1 % Sodium Level 143 136-145 mmol/L Potassium Level 3.7 3.5-5.1 mmol/L Chloride Level 107 98-107 mmol/L Carbon Dioxide Level 29 20-31 mmol/L Anion Gap 7 5-15 Blood Urea Nitrogen 32 H 9-23 mg/dL Creatinine 3.64 H 0.700-1.30 mg/dL Glomerular Filtration Rate Calc 17 >90 mL/min BUN/Creatinine Ratio 8.8 L 10.0-20.0 Serum Glucose 94 74-106 mg/dL Calcium Level 9.4 8.7-10.4 mg/dL Phosphorus Level 2.4 2.4-5.1 mg/dL Magnesium Level 2.0 1.6-2.6 mg/dL Total Bilirubin < 0.2 L 0.2-1.0 mg/dL Aspartate Amino Transferase (AST) 20 13-40 U/L Alanine Aminotransferase (ALT) < 9 7-40 U/L Alkaline Phosphatase 140 H 46-116 U/L B-Type Natriuretic Peptide 767.88 0-100 pg/mL Total Protein 5.9 5.7-8.2 g/dL Albumin 2.3 L 3.2-4.8 g/dL Blood Gas Specimen Type Arterial Blood Gas Sample Site Right radial Blood Gas Patient Temperature 37.0 Arterial Blood Date Drawn [id number] Arterial Blood pH 7.501 H 7.350-7.450 Arterial Blood Partial Pressure CO2 34.5 L 35.0-48.0 mmHg Arterial Blood Partial Pressure O2 61.1 L 83.0-108.0 mmHg Arterial Blood HCO3 26.4 21.0-28.0 mmol/L Arterial Blood Oxygen Saturation 92.1 L 94.0-98.0 % Arterial Blood Base Excess 3.1 H -2.0-3.0 mmol/L Arterial Blood Oxyhemoglobin 89.8 L 94.0-98.0 % Arterial Blood Carboxyhemoglobin 1.9 H 0.5-1.5 % Arterial Blood Methemoglobin 0.6 0.0-1.5 % Bruno Test Modified Blood Gas Total Hemoglobin 8.20 L 13.5-17.5 g/dL Blood Gas Set Respiration Rate 16.0 Blood Gas Modality Vent - ac FiO2 % 30.0 Blood Gas Tidal Volume 400.0 Blood Gas PEEP or CPAP 5.0 Random Vancomycin Level 29.9 H 5-10 ug/mL Test 06/27/24 08:17 06/27/24 05:02 06/25/24 07:45 06/24/24 15:35 Range/Units Blood Gas Spontaneous Rate 32 Differential Total Cells Counted 100.0 100 Neutrophils % (Manual) 68 37.0-80.0 Band Neutrophils % (Manual) 0 Lymphocytes % (Manual) 19 10.0-50.0 Monocytes % (Manual) 10 0-12 Eosinophils % (Manual) 3 0-7 Basophils % (Manual) 0 0.0-2.0 Metamyelocytes % (manual) 0 Myelocytes % (Manual) 0 Promyelocytes % (Manual) 0 Blast Cells % (Manual) 0 Reactive Lymphocytes 0 Platelet Estimate Adequate Estimated GFR () 24 mL/min Estimated GFR (Non- 19 mL/min Blood Gas Critical Value Read Back Yes Blood Gas Notified Whom Dr. radha queen Blood Gas Notified Time [id number] Blood Gas Notified By Lactic Acid Level 0.5 0.4-2.0 mmol/L Test 06/24/24 09:50 06/24/24 04:53 06/17/24 04:36 06/16/24 01:00 Range/Units Blood Gas Liter Flow 10.00 Hepatitis A IgM Antibody Negative Hepatitis B Surface Antigen Negative Negative Hepatitis B Core IgM Antibody Negative Negative Hepatitis C Antibody Reactive *A Negative Prothrombin Time 12.6 H 9.3-11.8 sec Prothrombin Time INR 1.21 H 0.9-1.15 Activated Partial Thromboplast Time 40.6 H 24.5-34.5 SEC Influenza Type A Antigen Negative Negative Influenza Type B Antigen Negative Negative SARS-CoV-2 Antigen (Rapid) Negative NEGATIVE Test 06/12/24 14:26 06/12/24 07:55 06/10/24 01:12 06/09/24 12:57 Range/Units Stool Occult Blood Negative Negative Stool Occult Blood Sample #3 Negative Blood Gas Inspiratory Pressure 18.0 Bl Gas Inspiratory/Expiratory Ratio 1:1.2 Specimen Drawn By yandy rt Blood Gas EPAP 5 Blood Gas IPAP 12 Blood Gas Pressure Support 10 Test 06/05/24 03:09 06/02/24 03:17 06/01/24 03:00 05/30/24 11:45 Range/Units Large Platelets Few Iron Level 101 65-175 ug/dL Total Iron Binding Capacity 109 L 250-425 ug/dL Percent Iron Saturation 92.7 H 20-55 % Ferritin 1171.2 H 22-322 ng/mL Uric Acid 9.3 H 3.7-9.2 mg/dL Body Fluid Source Pleural fluid Body Fluid pH 7.0 Body Fluid WBC (Manual) 479 H 0-200 CUMM Body Fluid RBC (Manual) 842 0-2000 CUMM Body Fluid Mononuclear Cells 86 % Body Fluid Polymorphonuclear Cells 14 0-25 % Body Fluid Glucose 68 . mg/dL Body Fluid Total Protein 2.4 . g/dL Body Fluid Lactate Dehydrogenase 101 . IU/L Test 05/30/24 04:30 05/30/24 03:06 05/29/24 08:30 05/29/24 00:21 Range/Units Urine Creatinine 33.57 30.0-125.0 mg/dL Urine Sodium 85 40-220 mmol/L Urine Opiates Screen Neg NEGATIVE Urine Fentanyl Screen Pos NEGATIVE Urine Barbiturates Screen Neg NEGATIVE Urine Phencyclidine Screen Neg NEGATIVE Urine Amphetamines Screen Neg NEGATIVE Urine Benzodiazepines Screen Pos NEGATIVE Urine Cocaine Screen Neg NEGATIVE Urine Cannabinoids Screen Neg NEGATIVE Lactate Dehydrogenase 149 120-246 U/L Thyroid Stimulating Hormone (TSH) 2.47 0.55-4.78 uIU/mL Troponin I High Sensitivity 118 *H </=54 ng/L Test 05/28/24 22:36 05/28/24 21:43 Range/Units Urine Color Dark-brown Yellow Urine Clarity Ex.turbid Clear Urine pH 6.0 5.0-9.0 Urine Specific [place] 1.017 1.001-1.035 Urine Protein 2+ H Negative Urine Ketones Trace Negative Urine Blood 1+ H Negative /uL Urine Nitrite Negative Negative Urine Bilirubin Negative Negative Urine Urobilinogen Normal Negative mg/dL Urine Leukocyte Esterase 3+ Negative /uL Urine RBC 56 0 - 3 /hpf Urine WBC 3664 0 - 3 /hpf Urine WBC Clumps Present None Seen /hpf Urine Squamous Epithelial Cells Many <5 /hpf Urine Bacteria Mod H None Seen /hpf Urine Glucose Normal Normal mg/dL Anisocytosis (manual) Slight Macrocytosis Slight Microbiology Date/Time Source Procedure Growth Status 06/28/24 15:27 Blood Blood Culture - Preliminary NO GROWTH AFTER 48 HOURS OF INCUBATION. Resulted 06/25/24 08:20 Catheter Site Aerobic Culture - Preliminary Methicillin Resistant S.aureus Acinetobacter baumannii MDRO Enterococcus faecalis Resulted 06/11/24 16:06 Bronchial Washings Gram Stain - Final Complete 06/11/24 16:06 Respiratory Culture - Final Acinetobacter baumannii Pseudomonas aeruginosa Complete 05/30/24 11:45 Pleural Fluid Gram Stain - Final Complete 05/30/24 11:45 Pleural Fluid Body Fluid Culture - Final Complete 05/28/24 22:36 Urine - Catheterized Urine Culture - Final Enterobacter cloacae Escherichia coli Enterococcus faecalis - VRE Complete Plan/Recommendation ASSESSMENT AND PLAN: ID Problem List: - Altered mental status - MDR Acinetobacter and Pseudomonas respiratory infections - MRSA colonization - Fevers (resolving) - Right above-knee amputation - Partial left foot amputation - Congestive heart failure - Chronic obstructive pulmonary disease - Dyslipidemia - Hypertension - Cerebrovascular accident - Liver disease - Myocardial infarction Assessment This is a 69 y.o. male with a past medical history of right above-knee amputation, partial left foot amputation, CHF, COPD, dyslipidemia, hypertension, CVA, liver disease, and SD, who presents with altered mental status. Patient was noted by family to have progressive confusion over the last three days, culminating in unresponsiveness. On arrival to the ED, the patient was unresponsive and was emergently intubated for airway protection. He was unable to provide history due to altered mental status and was admitted to the ICU for prolonged therapy. He underwent tracheostomy and PEG placement on June 13. Microbiology: - On May 28, sputum culture grew MRSA. - On May 30, bronchial culture grew MRSA. - On June 10, tracheal/bronchial washing grew MDR Acinetobacter and Pseudomonas. - Blood cultures grew Staphylococcus capitis and Staphylococcus auricularis on June 02. - Blood cultures grew Staphylococcus epidermidis and Staphylococcus hominis on June 09. - Blood cultures on June 24 showed no growth. - Catheter tip cultures grew MRSA, MDR Acinetobacter, and Enterococcus. Antibiotic history: - Vancomycin from May 28 to June 14. - Piperacillin-tazobactam (Zosyn) from May 28 to May 29. - Ampicillin from May 29 to . - Ceftriaxone from May 29 to . - Linezolid from May 31 to . - Meropenem from May 31 to . Currently, the patient is on linezolid and meropenem. Fevers have resolved since June 27, and recent cultures remain negative. Plan: - Discontinue linezolid and meropenem as the patient has completed adequate therapy and cultures are negative. - Plan to replace catheter line for dialysis once blood cultures remain clear for at least 72 hours. - Monitor for signs of infection. - Continue supportive care. - Isolation Precautions: Standard. Assessment and plan were discussed with the patient as written above. Plan is subject to change pending incorporation of new incoming information/diagnostics. Updates may be added as addendum at the bottom (OR TOP) of this note. Thank you for interesting consult. ID will continue to follow. Please contact Infectious Disease for any questions or concerns. = History: The patient's chart and medications were reviewed in detail and the patient was seen and examined. History obtained from: chart Saad Choi is a 69 y.o. male with a past medical history of right above-knee amputation, partial left foot amputation, CHF, COPD, dyslipidemia, hypertension, CVA, liver disease, and SD, who presents with altered mental status. Patient was noted by family to be progressively more altered over the last three days, with gradual decline in mental status, progressive confusion, and eventual unresponsiveness. On arrival, the patient was unresponsive and was emergently intubated for airway protection. He was in the ICU for prolonged therapy and underwent tracheostomy and PEG placement on June 13. Multiple cultures have grown MRSA, MDR Acinetobacter, and Pseudomonas. Fevers have resolved since June 27. Review of Systems: Unable to obtain due to patient's condition. Past Medical History: Diagnosis Right above-knee amputation Partial left foot amputation Congestive heart failure Chronic obstructive pulmonary disease Dyslipidemia Hypertension Cerebrovascular accident Liver disease Myocardial infarction Past Surgical History: Right above-knee amputation Partial left foot amputation Home Medications: Prior to Admission medications Medication Sig atorvastatin (LIPITOR) Take as directed. apixaban Take as directed. amlodipine Take as directed. bisacodyl Take as directed. bumetanide (Bumex) Take as directed. carvedilol (Coreg) Take as directed. clonidine Take as directed. famotidine Take as directed. fluticasone Use as directed. hydralazine Take as directed. HYDROcodone-acetaminophen (NORCO) Take as needed for pain. Keppra (levetiracetam) Take as directed. levothyroxine Take as directed. lorazepam Take as directed. methimazole Take as directed. sertraline Take as directed. Allergies: No Known Allergies Family History: Problem Relation Cerebrovascular accident Father Social History: Smoking: Never Alcohol use: Never Drug use: Never Occupation: Not on file Objective: Vital Signs on Arrival: Temp: 100.1 F BP: 153/66 Pulse: 100 Resp: 18 SpO2: 95% on minimal vent settings Most Recent Vital Signs: Temp: [Most recent temperature] BP: [Most recent BP] Pulse: [Most recent pulse] Resp: [Most recent resp rate] SpO2: [Most recent SpO2] Admission Weight: Weight: [Weight] BMI: [BMI] Physical Exam: General: Intubated, not sedated, awake, follows simple commands. Neck: Supple. No masses. HEENT: PERRL. Normal lids and conjunctiva. Moist mucous membranes. - Oropharynx intubated. Heart: Regular rhythm, normal rate. No murmur. No lower extremity edema. Lungs: On ventilator support. Decreased breath sounds bilaterally. - No wheezes. No crackles. Abdomen: Soft. Non-tender. Non-distended. No masses or abdominal hernia. Msk: Right above-knee amputation. Partial left foot amputation. - Normal strength and tone in remaining limbs. Skin: Warm and dry, no rashes. Chronic wounds over ischial tuberosities. Neuro: Alert. No facial droop or slurred speech. Extra-ocular movements intact. - Unable to assess sensation fully. Psych: Unable to assess mood and affect fully. - Oriented to person, place, time, and situation. Lines: Active Lines - Tracheostomy tube - PEG tube - Central venous catheter Diagnostic Studies: Available diagnostic studies were reviewed personally. Significant relevant results and findings are outlined below or addressed in the Assessment and Plan above. Pertinent Imaging: Recent Results Chest Ultrasound (06/13/2024) - Impression: - Left greater than right pleural effusion. CT Abdomen/Pelvis (06/04/2024) - Impression: - Small ascites, moderate to large pleural effusion, generalized anasarca. - Right renal atrophy, left renal cyst. - Right lower lobe patchy consolidation. - Chronic wounds over ischial tuberosities. - Chronic skin thickening extending to the perianal region. - Chronic osteitis of the ischial tuberosities. - Extensive atherosclerosis. Chest X-ray (Most Recent) - Impression: - Stable position. - Pulmonary vascular congestion. - Bilateral pleural effusions. Laboratory Data: - Blood cultures on 06/24/2024: No growth to date. - Previous blood cultures grew Staphylococcus species as noted above. [End of note.] Plan discussed with: Patient SURINDER CHOWDHURY MD Jul 01, 2024 00:01
[2024-07-01 05:28] LABS: Hemoglobin 7.9 g/dL (13.5-17.5)
[2024-07-01 05:30] LABS: Mean Corpuscular Hemoglobin 32.3 pg (28.0-32.0); Mean Corpuscular Hgb Conc. 32.8 g/dL (32.0-36.0); Mean Corpuscular Volume 98.5 fL (80.0-100.0); Platelet Count (auto) 181 10^3/uL (140-450); Red Blood Cells 2.44 10^6/uL (4.5-5.90); White Blood Cell 5.5 10^3/uL (4.4-10.8)
[2024-07-01 05:39] LABS: Red Cell Distribution Width 20.2 % (11.8-14.3)
[2024-07-01 05:40] LABS: Basophils % (manual) 0 (0.0-2.0); Blast Cells 0; Myelocytes % 0; Promyelocytes % 0; Reactive Lymphocytes 0
[2024-07-01 05:53] LABS: Alanine Aminotransferase < 9 U/L (7-40); Albumin 2.3 g/dL (3.2-4.8); Alkaline Phosphatase 139 U/L (46-116); Anion Gap 8 (5-15); Aspartate Aminotransferase 19 U/L (13-40); BUN/Creatinine Ratio 8.7 (10.0-20.0); Blood Urea Nitrogen 34 mg/dL (9-23); Calcium 9.4 mg/dL (8.7-10.4); Carbon Dioxide 28 mmol/L (20-31); Chloride 107 mmol/L (98-107); Glucose 85 mg/dL (74-106); Sodium 143 mmol/L (136-145); Total Protein 5.7 g/dL (5.7-8.2)
[2024-07-01 05:54] LABS: Bilirubin, Total < 0.2 mg/dL (0.2-1.0)
[2024-07-01] MEDS: SODIUM CHL 0.9% 1000 ML BAG XX ONE (07:00)
[2024-07-01 09:03] LABS: Band Neutrophils % (manual) 2; Lymphocytes % (manual) 14 (10.0-50.0); Monocytes % (manual) 5 (0-12)
[2024-07-01 09:04] LABS: Eosinophils % (manual) 11 (0-7); Metamyelocytes % 1
[2024-07-01 09:05] LABS: Platelet Estimate Adequate
--- NOTE | 2024-07-01 09:54 | DVHPN2 ---
Progress Note Date Seen: Jul 01, 2024 Has the PT tested + for MRSA If YES, has PT been informed?: Yes Medical Necessity Reason Pt with a Central, PICC or Fol: Yes The following are medically ne: Central Line, Rubio Catheter Reason for rubio catheter: Strict I&O Subjective Review of Systems: RESPIRATORY:Abnormal Other Systems: Patient seen and examined by myself on follow-up today, patient remained intubated on ventilator Patient examined hemodialysis, blood pressure stable Objective vital signs Vital Sign Date Time Temp Pulse Resp B/P (MAP) Pulse Ox O2 Delivery O2 Flow Rate FiO2 07/01/24 07:41 178/80 07/01/24 06:46 94 20 99 07/01/24 06:40 Trach Collar 6.0 07/01/24 06:40 28 28 07/01/24 04:45 98.8 98.8 Total Intake and Output 06/30/24 06/30/24 07/01/24 15:00 23:00 07:00 Intake Total 968.5 ml 908.5 ml 777.5 ml Output Total 225 ml 400 ml Balance 968.5 ml 683.5 ml 377.5 ml medications Current Medications Medications Dose Ordered Sig/[place] Route Start Time Stop Time Status Last Admin Dose Admin Diagnostic Test (Pha) 1 strip Q6HR 06/02/24 12:00 07/01/24 06:00 1 STRIP Dextrose 50 ml UD PRN IV 06/02/24 10:45 06/19/24 04:55 50 ML Heparin Sodium (Porcine) 4,000 units PRN PRN IV 06/07/24 09:00 Hydralazine HCl 100 mg Q8HR PO 06/07/24 14:00 07/01/24 06:00 100 MG Acetylcysteine 100 mg Q6HR NEB 06/09/24 18:00 07/01/24 06:40 100 MG Amlodipine Besylate 10 mg DAILY PO 06/10/24 10:00 06/30/24 10:02 10 MG Enoxaparin Sodium 40 mg DAILY SC 06/10/24 10:00 UNV Enoxaparin Sodium 40 mg DAILY SC 06/17/24 10:00 UNV Epoetin Calin-epbx 10,000 unit TUTHSA SC 06/17/24 12:00 Hold 06/28/24 08:25 10,000 UNIT Sodium Chloride 10 ml QSHIFT@10,22 IV 06/17/24 22:00 06/30/24 22:11 10 ML Lactulose 30 ml BID PEG 06/19/24 22:00 06/30/24 22:13 30 ML Acetaminophen 650 mg Q6HP PRN GT 06/20/24 11:30 06/28/24 17:05 650 MG Metoprolol Tartrate 25 mg BID PO 06/23/24 10:00 06/30/24 22:13 25 MG Fentanyl Citrate 250 ml @ 2.5 mls/hr Q24H IV 06/24/24 10:45 06/30/24 15:00 7.5 MLS/HR Hydralazine HCl 10 mg Q4HP PRN IV 06/24/24 16:45 07/01/24 07:41 10 MG Omeprazole 20 mg DAILY GT 06/26/24 10:00 06/30/24 09:59 20 MG Meropenem 50 ml @ 17 mls/hr Q12H IV 06/27/24 18:00 07/01/24 06:00 17 MLS/HR Albuterol 2.5 mg Q6HPRN PRN NEB 06/28/24 11:30 07/01/24 06:40 2.5 MG Linezolid 300 ml @ 150 mls/hr Q12HR IV 06/28/24 22:00 06/30/24 22:13 150 MLS/HR Examination: LUNGS:Normal, CVS:Normal, MSK:Normal laboratory and microbiology Laboratory Tests 07/01/24 04:50 Test 07/01/24 04:50 Range/Units Serum Glucose 85 74-106 mg/dL Microbiology Date/Time Source Procedure Growth Status 06/28/24 15:27 Blood Blood Culture - Preliminary NO GROWTH AFTER 48 HOURS OF INCUBATION. Resulted 06/25/24 08:20 Catheter Site Aerobic Culture - Preliminary Methicillin Resistant S.aureus Acinetobacter baumannii MDRO Enterococcus faecalis Resulted 06/11/24 16:06 Bronchial Washings Gram Stain - Final Complete 06/11/24 16:06 Respiratory Culture - Final Acinetobacter baumannii Pseudomonas aeruginosa Complete 05/30/24 11:45 Pleural Fluid Gram Stain - Final Complete 05/30/24 11:45 Pleural Fluid Body Fluid Culture - Final Complete 05/28/24 22:36 Urine - Catheterized Urine Culture - Final Enterobacter cloacae Escherichia coli Enterococcus faecalis - VRE Complete Problem List/Assessment/Plan Problem List/Assessment/Plan Acute kidney injury superimposed on chronic kidney disease stage 4, oliguric requiring initiation of hemodialysis D Acute respiratory failure, patient is trached on the ventilator Anemia suspected due to low blood loss s/p PRBC Septic shock Hypernatremia Hypokalemia Peripheral arterial disease Right above knee amputation Metabolic acidosis Chronic urinary retention MRSA bacteremia Recommendations Continue with UF to 3 L as tolerated Epogen [id number] IV post hemodialysis Rubio catheter Strict I&Os KCL replacement IV pressor for blood pressure support IV antibiotic per ID consult We will continue to follow Plan discussed with: Other (Nurse) Dietary Evaluation Review Comments: 1) If GI is assessible consider Jevity 1.2 @ 60 ml/hr x24 hrs goal rate as tolerated 2) If pt remains NPO >7 days consider TPN to meet at least 75% of estimated needs 3) Advance pt diet when medically feasible to a Cardiac/Renal Specific K2,2gmNA,low phos,60g Pro diet modified per [employer]PLICATING [employer]ACHINE [employer]CH[employer]IC recommendations 4) Continue current plan of care Expected Outcomes/Goals: 1) Pt to receive adequate nutrition support 2) Pt diet to advance CC Plasma Assessment Blood Product Administration S: [id number] DAVID TORRES MD Jul 01, 2024 09:54
[2024-07-01] MEDS: cloNIDine HCL 0.1 MG TAB PO SCH (17:25)
--- NOTE | 2024-07-01 17:46 | DVHPNRES ---
Progress Note Date Seen: Jul 01, 2024 Resident Creating Document: THA CRISOSTOMO RESIDENT Has the PT tested + for MRSA If YES, has PT been informed?: Yes Medical Necessity Reason Pt with a Central, PICC or Fol: Yes The following are medically ne: Central Line, Rubio Catheter Reason for rubio catheter: Strict I&O Subjective Review of Systems This is a 65-year-old male with past medical history of CHF, CKD, COPD, dyslipidemia, hypertension, CVA brought to the hospital with shortness of breaths and at the level of consciousness. Admitted and intubated on 05/28, extubated on 06/09 but reintubated on 06/10. Epigastric performed on 06/13, PEG tube placed on 06/15. Patient seen and examined at bedside. Overnight no events, patient made 150 cc of urine in the morning and 125 cc in the night. Multiple bowel movements 500 cc on 06/30, 250 cc on the night of 07/01 and 200 on the morning of 07/01. Lactulose changed to p.r.n.. Patient is intubated and mechanically ventilated. Patient is satting 97% on trach collar via 6 L oxygen supplementation for the past 24 hours. He is not on pressor support. On fentanyl 20 mcg. Increase metoprolol to 50 mg b.i.d. and started clonidine 0.1 mg b.i.d.. Started fentanyl patch 25 mcg. IV fentanyl will be discontinued after overlapping her 4-5 hours with fentanyl patch. Objective vital signs Vital Sign Date Time Temp Pulse Resp B/P (MAP) Pulse Ox O2 Delivery O2 Flow Rate FiO2 07/01/24 17:25 160/69 07/01/24 15:30 83 24 95 07/01/24 14:00 Trach Collar 6 28 28 07/01/24 12:00 98.1 98.1 Total Intake and Output 06/30/24 06/30/24 07/01/24 15:00 23:00 07:00 Intake Total 968.5 ml 908.5 ml 794.5 ml Output Total 225 ml 400 ml Balance 968.5 ml 683.5 ml 394.5 ml medications Current Medications Medications Dose Ordered Sig/[place] Route Start Time Stop Time Status Last Admin Dose Admin Diagnostic Test (Pha) 1 strip Q6HR 06/02/24 12:00 07/01/24 17:45 1 STRIP Dextrose 50 ml UD PRN IV 06/02/24 10:45 06/19/24 04:55 50 ML Heparin Sodium (Porcine) 4,000 units PRN PRN IV 06/07/24 09:00 Hydralazine HCl 100 mg Q8HR PO 06/07/24 14:00 07/01/24 14:12 100 MG Acetylcysteine 100 mg Q6HR NEB 06/09/24 18:00 07/01/24 11:31 100 MG Amlodipine Besylate 10 mg DAILY PO 06/10/24 10:00 07/01/24 11:00 10 MG Enoxaparin Sodium 40 mg DAILY SC 06/10/24 10:00 UNV Enoxaparin Sodium 40 mg DAILY SC 06/17/24 10:00 UNV Epoetin Morena-epbx 10,000 unit TUTHSA SC 06/17/24 12:00 Hold 06/28/24 08:25 10,000 UNIT Sodium Chloride 10 ml QSHIFT@10,22 IV 06/17/24 22:00 07/01/24 10:36 10 ML Acetaminophen 650 mg Q6HP PRN GT 06/20/24 11:30 06/28/24 17:05 650 MG Fentanyl Citrate 250 ml @ 2.5 mls/hr Q24H IV 06/24/24 10:45 06/30/24 15:00 7.5 MLS/HR Hydralazine HCl 10 mg Q4HP PRN IV 06/24/24 16:45 07/01/24 16:54 10 MG Omeprazole 20 mg DAILY GT 06/26/24 10:00 07/01/24 11:03 20 MG Meropenem 50 ml @ 17 mls/hr Q12H IV 06/27/24 18:00 07/01/24 17:43 17 MLS/HR Albuterol 2.5 mg Q6HPRN PRN NEB 06/28/24 11:30 07/01/24 11:31 2.5 MG Linezolid 300 ml @ 150 mls/hr Q12HR IV 06/28/24 22:00 07/01/24 10:35 150 MLS/HR Lactulose 30 ml [id number] PRN PEG 07/01/24 10:15 Metoprolol Tartrate 50 mg BID PO 07/01/24 22:00 Clonidine HCl 0.1 mg BID PO 07/01/24 17:15 07/01/24 17:25 0.1 MG Fentanyl 25 mcg Q72H TD 07/01/24 17:30 Examination Patient lying in bed, in no acute distress. Left IJ CVC seen General: afebrile, palor, mucosae are moist Cardiovascular: Regular S1 and S2. No murmurs, gallops or rubs. No JVD elevation. Bilateral pitting edema. Respiratory: Bilateral air entry equal. Saturating 97% on trach collar. Abdomen: Soft, nontender, nondistended, normoactive bowel sounds, no rebound tenderness, no organomegaly, no masses. Suprapubic catheter seen draining urine and colostomy bag seen draining 50 mL of brown reddish stool which is liquid in consistency. Peg tube in place. Genitourinary: Stage III sacral ulcer, skin non intact, draining pus and erythema noted. MSK/skin: Limb movement can not be assessed. Skin is dry and warm Neurological: Pupils are isocoric and reactive. laboratory and microbiology Laboratory Tests 07/01/24 04:50 Test 07/01/24 04:50 Range/Units Serum Glucose 85 74-106 mg/dL Microbiology Date/Time Source Procedure Growth Status 06/28/24 15:27 Blood Blood Culture - Preliminary NO GROWTH AFTER 72 HOURS OF INCUBATION. Resulted 06/25/24 08:20 Catheter Site Aerobic Culture - Preliminary Methicillin Resistant S.aureus Acinetobacter baumannii MDRO Enterococcus faecalis Resulted 06/11/24 16:06 Bronchial Washings Gram Stain - Final Complete 06/11/24 16:06 Respiratory Culture - Final Acinetobacter baumannii Pseudomonas aeruginosa Complete 05/30/24 11:45 Pleural Fluid Gram Stain - Final Complete 05/30/24 11:45 Pleural Fluid Body Fluid Culture - Final Complete 05/28/24 22:36 Urine - Catheterized Urine Culture - Final Enterobacter cloacae Escherichia coli Enterococcus faecalis - VRE Complete Labs and/or images reviewed: Labs reviewed by me, Image(s) reviewed by me Problem List/Assessment/Plan Problem List/Assessment/Plan NEURO: Acute metabolic encephalopathy likely due to sepsis History of seizure Patient is sedated and on mechanical ventilation, RASS scores -2 History of seizure during last admission(1 month back) used Keppra for 1 week Discontinued Keppra, on 06/16 EEG shows abnormal EEG recording consistent with the presence of a diffuse nonspecific encephalopathic state CARDIOVASCULAR: Hypertension Continue injection hydralazine 10 mg q.6 hours as needed Increase metoprolol to 50 mg b.i.d., Continue amlodipine 10 mg, hydralazine 100 mg t.i.d. Started clonidine 0.1 mg twice daily 07/01 PULMONARY: Acute Hypoxic Respiratory Failure likely due to pneumonia Septic shock likely due to pneumonia, improved Pneumonia likely due to MRSA and Enterobacter cloacae - Patient is sedated and mechanically ventilated with PEEP of 30% - CT scan shows [id number] left pleural effusion - MRSA nares screening, COVID-19 and flu are negative - Bronchoscopy performed on 06/11, there was some thin mucus secretion on bilateral side, bronchial lavage of right lower lobe and left lower lobe was performed, and the culture results shows Pseudomonas aeruginosa and Enterobacter baumanni, MDR; ID has been consulted - Sputum culture from bronchoalveolar lavage from 05/24/24 shows MRSA, Enterobacter cloacae - Blood culture from the 06/02/24 shows Staphylococcus epidermidis , Staph hominis - Repeat culture from 06/09/2024 shows no growth - Stopped in linezolid, given for 11 days, discontinued meropenem, started on 06/08 and given for 12 days - Continue N-acetylcysteine - Breathing treatment q.6 hours p.r.n. - Trach collar trial, 1 hour b.i.d. as tolerated, today was tried on 10 lit of O2 and FiO2 30%, and the patient developed tachypnea during the trial -started fentanyl patch 25 mcg 07/01 GI - GI ppx: omeprazole 20mg daily via OG tube - Hepatitis-C virus antibody positive - Repeat stool occult blood test is negative - CT abdominopelvic without contrast shows no evidence of intra-abdominal hemorrhage - Tracheostomy is performed on 06/13 - PEG tube is placed on 06/15 - Bowel regimen: Lactulose 30 mL b.i.d. change to p.r.n. 07/01 : FROYLAN, possible VMN on ESRD requiring hemodialysis - Nephrology consulted, epoetin morena 47748 units SC post dialysis. probable hemodialysis 07/01. Discontinued Two bags of 1 L NS ordered for 07/01. Radiology for tunneled hemodialysis catheter when the blood culture negative for 72 hours - Stopped Bumix 1mg BID - creatinine increased to 3.91 from 3.64 - Homer catheter placed on left internal jugular, on 06/26 UTI, urinalysis shows UTI picture - Urine culture from 05/28/2024 shows Enterobacter, E coli, Enterococcus faecalis Status post right lower limb, AKA likely due to PAD Decubitus ulcer - There are multiple stage 3-4 sacral ulcers draining pus - position changing every 2 hours and dressing -started fentanyl patch 25 mcg 07/01 HEME Severe anemia, transfused 4 pack of red blood cells Thrombocytopenia - current HB is 8 ID: - Sputum culture from bronchoalveolar lavage from 05/24/24 shows MRSA, Enterobacter cloacae - Blood culture from the 06/02/24 shows Staphylococcus epidermidis , Staph hominis - Repeat culture from 06/09/2024 shows no growth - culture results from BAL from 06/11 shows Pseudomonas aeruginosa and Enterobacter baumanni, MDR - continue IV linezolid starting 06/28 and meropenem starting 06/25 - previously received vancomycin - catheter site culture 06/25 completed shows MRSA, Acinetobacter baumannii MDRO, Enterococcus faecalis. SKIN Possible keloid - There is a growth on the left shoulder, per son, lesion has been present for several years - Follow up on outpatient basis Metabolic: Hypernatremia, improved Hypokalemia, discontinued potassium supplementation given ESRD Hyperkalemia, improved Mild hyponatremia, monitoring Hypoglycemic episodes, improved Hypomagnesemia, supplemented LINES/DRAINS/ACCESS: ETT, intubated on 05/28/2024 and tracheostomy performed on 06/11, PEG tube placed on 06/15 IV access Left internal jugular CVC, placed on 06/26 Suprapubic catheter, changed on 06/02/2020 Dripps: Fentanyl 25, overlapping by fentanyl patch No pressor DIET: Nepro 30 mL/hour DVT prophylaxis Heparin 2000 units Disposition: social service worker consulted for transfer to the [facility] critical care time including review of charts, discussing case with patient's nurse, excluding procedures is 52 mins CODE STATUS: Full code Case discussed with Dr. Isabel. Discontinued IV NS. Discontinued potassium supplementation given ESRD. Probable dialysis tomorrow 07/02. Patient will require tunneled catheter for hemodialysis in the near future. Plan discussed with: Patient, Other (Nurse la) My Orders My Orders Orders - THA CRISOSTOMO RESIDENT Procedure Category Date Status Time Lactulose Oral PHA 07/01/24 In Process 10:15 Metoprolol Tartrate PHA 07/01/24 In Process Tablet (Lopressor Ta 22:00 Clonidine Hcl Tablet PHA 07/01/24 In Process (Catapres Tablet) 17:15 Fentanyl 25mcg/Hr PHA 07/01/24 In Process (Duragesic 25mcg/Hr) 17:30 Dietary Evaluation Review Comments: 1) If GI is assessible consider Jevity 1.2 @ 60 ml/hr x24 hrs goal rate as tolerated 2) If pt remains NPO >7 days consider TPN to meet at least 75% of estimated needs 3) Advance pt diet when medically feasible to a Cardiac/Renal Specific K2,2gmNA,low phos,60g Pro diet modified per PROJECT STRUCTURAL ENGINEER recommendations 4) Continue current plan of care Expected Outcomes/Goals: 1) Pt to receive adequate nutrition support 2) Pt diet to advance CC Plasma Assessment Blood Product Administration S: [id number] Date of Service: Jul 01, 2024 Billing Provider: HOLGER ISABEL MD Common Visit Codes: [id number] CARE 30-74 MIN THA CRISOSTOMO RESIDENT Jul 01, 2024 17:46 HOLGER ISABEL MD Jul 02, 2024 12:12
[2024-07-01] MEDS: fentaNYL 25MCG/HR 25 MCG/HR PAT TD SCH (17:54)
[2024-07-01] MEDS: EPOETIN ALFA-EPBX 10,000 UNIT/1ML VIAL SC ONE (21:32)
[2024-07-01] MEDS: METOPROLOL TARTRATE 25 MG TAB PO SCH (21:33)
--- NOTE | 2024-07-01 22:36 | DVHPN2 ---
Consult Progress Note Date Seen: Jul 01, 2024 Subjective Patient reports: Feels better (no fever or chills) Objective vital signs Vital Sign Date Time Temp Pulse Resp B/P (MAP) Pulse Ox O2 Delivery O2 Flow Rate FiO2 07/01/24 21:43 164/73 07/01/24 21:33 86 07/01/24 20:00 23 95 Trach Collar 6 28 28 07/01/24 20:00 98.9 98.9 Total Intake and Output 06/30/24 06/30/24 07/01/24 15:00 23:00 07:00 Intake Total 968.5 ml 908.5 ml 797.0 ml Output Total 225 ml 400 ml Balance 968.5 ml 683.5 ml 397.0 ml medications Current Medications Medications Dose Ordered Sig/[place] Route Start Time Stop Time Status Last Admin Dose Admin Diagnostic Test (Pha) 1 strip Q6HR 06/02/24 12:00 07/01/24 17:45 1 STRIP Dextrose 50 ml UD PRN IV 06/02/24 10:45 06/19/24 04:55 50 ML Heparin Sodium (Porcine) 4,000 units PRN PRN IV 06/07/24 09:00 Hydralazine HCl 100 mg Q8HR PO 06/07/24 14:00 07/01/24 21:43 100 MG Amlodipine Besylate 10 mg DAILY PO 06/10/24 10:00 07/01/24 11:00 10 MG Enoxaparin Sodium 40 mg DAILY SC 06/10/24 10:00 UNV Enoxaparin Sodium 40 mg DAILY SC 06/17/24 10:00 UNV Epoetin Calin-epbx 10,000 unit TUTHSA SC 06/17/24 12:00 Hold 06/28/24 08:25 10,000 UNIT Sodium Chloride 10 ml QSHIFT@10,22 IV 06/17/24 22:00 07/01/24 21:33 10 ML Acetaminophen 650 mg Q6HP PRN GT 06/20/24 11:30 06/28/24 17:05 650 MG Fentanyl Citrate 250 ml @ 2.5 mls/hr Q24H IV 06/24/24 10:45 06/30/24 15:00 7.5 MLS/HR Hydralazine HCl 10 mg Q4HP PRN IV 06/24/24 16:45 07/01/24 16:54 10 MG Omeprazole 20 mg DAILY GT 06/26/24 10:00 07/01/24 11:03 20 MG Meropenem 50 ml @ 17 mls/hr Q12H IV 06/27/24 18:00 07/01/24 17:43 17 MLS/HR Albuterol 2.5 mg Q6HPRN PRN NEB 06/28/24 11:30 07/01/24 18:46 2.5 MG Linezolid 300 ml @ 150 mls/hr Q12HR IV 06/28/24 22:00 07/01/24 21:33 150 MLS/HR Lactulose 30 ml [id number] PRN PEG 07/01/24 10:15 Metoprolol Tartrate 50 mg BID PO 07/01/24 22:00 07/01/24 21:33 50 MG Clonidine HCl 0.1 mg BID PO 07/01/24 17:15 07/01/24 21:33 0.1 MG Fentanyl 25 mcg Q72H TD 07/01/24 17:30 07/01/24 18:01 25 MCG Physical Exam: General: Intubated, not sedated, awake, follows simple commands. Neck: Supple. No masses. HEENT: PERRL. Normal lids and conjunctiva. Moist mucous membranes. - Oropharynx intubated. Heart: Regular rhythm, normal rate. No murmur. No lower extremity edema. Lungs: On ventilator support. Decreased breath sounds bilaterally. - No wheezes. No crackles. Abdomen: Soft. Non-tender. Non-distended. No masses or abdominal hernia. Msk: Right above-knee amputation. Partial left foot amputation. - Normal strength and tone in remaining limbs. Skin: Warm and dry, no rashes. Chronic wounds over ischial tuberosities. Neuro: Alert. No facial droop or slurred speech. Extra-ocular movements intact. - Unable to assess sensation fully. Psych: Unable to assess mood and affect fully. - Oriented to person, place, time, and situation. laboratory and microbiology Laboratory Tests 07/01/24 04:50 Test 07/01/24 04:50 Range/Units Serum Glucose 85 74-106 mg/dL Problem List/Assessment/Plan Problem List/Assessment/Plan ASSESSMENT AND PLAN: ID Problem List: - Altered mental status - MDR Acinetobacter and Pseudomonas respiratory infections - MRSA colonization - Fevers (resolving) - Right above-knee amputation - Partial left foot amputation - Congestive heart failure - Chronic obstructive pulmonary disease - Dyslipidemia - Hypertension - Cerebrovascular accident - Liver disease - Myocardial infarction Assessment This is a 69 y.o. male with a past medical history of right above-knee amputation, partial left foot amputation, CHF, COPD, dyslipidemia, hypertension, CVA, liver disease, and TN, who presents with altered mental status. Patient was noted by family to have progressive confusion over the last three days, culminating in unresponsiveness. On arrival to the ED, the patient was unresponsive and was emergently intubated for airway protection. He was unable to provide history due to altered mental status and was admitted to the ICU for prolonged therapy. He underwent tracheostomy and PEG placement on June 13. Microbiology: - On May 28, sputum culture grew MRSA. - On May 30, bronchial culture grew MRSA. - On June 10, tracheal/bronchial washing grew MDR Acinetobacter and Pseudomonas. - Blood cultures grew Staphylococcus capitis and Staphylococcus auricularis on June 02. - Blood cultures grew Staphylococcus epidermidis and Staphylococcus hominis on June 09. - Blood cultures on June 24 showed no growth. - Catheter tip cultures grew MRSA, MDR Acinetobacter, and Enterococcus. Antibiotic history: - Vancomycin from May 28 to June 14. - Piperacillin-tazobactam (Zosyn) from May 28 to May 29. - Ampicillin from May 29 to . - Ceftriaxone from May 29 to . - Linezolid from May 31 to . - Meropenem from May 31 to . Currently, the patient is on linezolid and meropenem. Fevers have resolved since June 27, and recent cultures remain negative. Plan: - Discontinue linezolid and meropenem as the patient has completed adequate therapy and cultures are negative. - Plan to replace catheter line for dialysis once blood cultures remain clear for at least 72 hours. - Monitor for signs of infection. - Continue supportive care. - Isolation Precautions: Standard. Assessment and plan were discussed with the patient as written above. Plan is subject to change pending incorporation of new incoming information/diagnostics. Updates may be added as addendum at the bottom (OR TOP) of this note. Thank you for interesting consult. ID will continue to follow. Please contact Infectious Disease for any questions or concerns. Plan discussed with: Patient Dietary Evaluation Review Comments: 1) If GI is assessible consider Jevity 1.2 @ 60 ml/hr x24 hrs goal rate as tolerated 2) If pt remains NPO >7 days consider TPN to meet at least 75% of estimated needs 3) Advance pt diet when medically feasible to a Cardiac/Renal Specific K2,2gmNA,low phos,60g Pro diet modified per ACUPRESSURIST recommendations 4) Continue current plan of care Expected Outcomes/Goals: 1) Pt to receive adequate nutrition support 2) Pt diet to advance CC Plasma Assessment Blood Product Administration S: [id number] SURINDER CHOWDHURY MD Jul 01, 2024 22:36
[2024-07-02] VITALS (52 sets, daily range): BP systolic 137–184; BP diastolic 64–91; PULSE 67–83; RESP 15–27; TEMP 97.6–98.5; O2SAT 93–99
--- NOTE | 2024-07-02 04:51 | DVH ---
CHEST RADIOGRAPH Indication: Follow up Technique: Single frontal view of the chest was obtained Comparison: XY CHEST PORTABLE on DOS: 06/30/24 FINDINGS: Lines and Tubes: Left PICC terminates in the superior vena cava. Left central venous catheter termin ates in the superior vena cava. Tracheostomy tube is unchanged. Lungs: Bilateral interstitial prominence. Left basilar opacity. Pleura: Moderate left pleural effusion and small right pleural effusion. No pneumothorax. Cardiomediastinal contours: Stable. Bones: No acute osseous abnormality. IMPRESSION: 1. Stable position of the support lines and tubes. 2. Pulmonary vascular congestion and bilateral pleural effusions.
[2024-07-02 05:36] LABS: Hemoglobin 7.9 g/dL (13.5-17.5)
[2024-07-02 05:39] LABS: Hematocrit 24.1 % (41.0-53.0); Mean Corpuscular Hemoglobin 32.2 pg (28.0-32.0); Mean Corpuscular Hgb Conc. 32.8 g/dL (32.0-36.0); Platelet Count (auto) 170 10^3/uL (140-450); Red Blood Cells 2.46 10^6/uL (4.5-5.90); Red Cell Distribution Width 19.4 % (11.8-14.3); White Blood Cell 5.5 10^3/uL (4.4-10.8)
[2024-07-02 05:56] LABS: Anion Gap 7 (5-15); Aspartate Aminotransferase 17 U/L (13-40); BUN/Creatinine Ratio 9.1 (10.0-20.0); Calcium 9.2 mg/dL (8.7-10.4); Carbon Dioxide 27 mmol/L (20-31); Glucose 89 mg/dL (74-106); Magnesium 2.1 mg/dL (1.6-2.6); Potassium 3.9 mmol/L (3.5-5.1); Sodium 142 mmol/L (136-145)
[2024-07-02 06:07] LABS: Basophils % (manual) 0 (0.0-2.0); Blast Cells 0; Metamyelocytes % 0; Myelocytes % 0; Promyelocytes % 0; Reactive Lymphocytes 0
[2024-07-02 06:09] LABS: Alanine Aminotransferase < 9 U/L (7-40); Albumin 2.3 g/dL (3.2-4.8); Alkaline Phosphatase 143 U/L (46-116); Bilirubin, Total < 0.2 mg/dL (0.2-1.0); Blood Urea Nitrogen 38 mg/dL (9-23); Chloride 108 mmol/L (98-107); Total Protein 5.7 g/dL (5.7-8.2)
[2024-07-02] MEDS: SODIUM CHL 0.9% 1000 ML BAG XX ONE (06:30)
[2024-07-02 08:45] LABS: Band Neutrophils % (manual) 6; Eosinophils % (manual) 10 (0-7); Lymphocytes % (manual) 12 (10.0-50.0); Monocytes % (manual) 10 (0-12); Platelet Estimate Adequate
--- NOTE | 2024-07-02 11:44 | DVHPN2 ---
Progress Note Date Seen: Jul 02, 2024 Has the PT tested + for MRSA If YES, has PT been informed?: Yes Medical Necessity Reason Pt with a Central, PICC or Fol: Yes The following are medically ne: Central Line, Rubio Catheter Reason for rubio catheter: Strict I&O Subjective Patient reports: No new complaints Other Systems: Patient seen and examined by myself on follow-up today Patient examined hemodialysis, blood pressure stable Objective vital signs Vital Sign Date Time Temp Pulse Resp B/P (MAP) Pulse Ox O2 Delivery O2 Flow Rate FiO2 07/02/24 09:39 175/91 07/02/24 09:38 82 07/02/24 09:00 98.0 17 96 98.0 07/02/24 08:00 Trach Collar 6 28 28 Total Intake and Output 07/01/24 07/01/24 07/02/24 15:00 23:00 07:00 Intake Total 354.0 ml 750.5 ml 285 ml Output Total 300 ml 150 ml Balance 354.0 ml 450.5 ml 135 ml medications Current Medications Medications Dose Ordered Sig/[place] Route Start Time Stop Time Status Last Admin Dose Admin Diagnostic Test (Pha) 1 strip Q6HR 06/02/24 12:00 07/02/24 06:23 1 STRIP Dextrose 50 ml UD PRN IV 06/02/24 10:45 06/19/24 04:55 50 ML Heparin Sodium (Porcine) 4,000 units PRN PRN IV 06/07/24 09:00 Hydralazine HCl 100 mg Q8HR PO 06/07/24 14:00 07/01/24 21:43 100 MG Amlodipine Besylate 10 mg DAILY PO 06/10/24 10:00 07/02/24 09:37 10 MG Enoxaparin Sodium 40 mg DAILY SC 06/10/24 10:00 UNV Enoxaparin Sodium 40 mg DAILY SC 06/17/24 10:00 UNV Epoetin Calin-epbx 10,000 unit TUTHSA SC 06/17/24 12:00 Hold 06/28/24 08:25 10,000 UNIT Sodium Chloride 10 ml QSHIFT@, IV 06/17/24 22:00 07/02/24 09:39 10 ML Acetaminophen 650 mg Q6HP PRN GT 06/20/24 11:30 06/28/24 17:05 650 MG Fentanyl Citrate 250 ml @ 2.5 mls/hr Q24H IV 06/24/24 10:45 06/30/24 15:00 7.5 MLS/HR Hydralazine HCl 10 mg Q4HP PRN IV 06/24/24 16:45 07/02/24 08:32 10 MG Omeprazole 20 mg DAILY GT 06/26/24 10:00 07/02/24 09:37 20 MG Meropenem 50 ml @ 17 mls/hr Q12H IV 06/27/24 18:00 07/01/24 17:43 17 MLS/HR Albuterol 2.5 mg Q6HPRN PRN NEB 06/28/24 11:30 07/02/24 00:28 2.5 MG Linezolid 300 ml @ 150 mls/hr Q12HR IV 06/28/24 22:00 07/02/24 09:37 150 MLS/HR Lactulose 30 ml [id number] PRN PEG 07/01/24 10:15 Metoprolol Tartrate 50 mg BID PO 07/01/24 22:00 07/02/24 09:38 50 MG Clonidine HCl 0.1 mg BID PO 07/01/24 17:15 07/02/24 09:39 0.1 MG Fentanyl 25 mcg Q72H TD 07/01/24 17:30 07/01/24 18:01 25 MCG Enteral Nutritional Formula 1,000 ml 60ML/HR GT 07/02/24 11:00 UNV Examination: LUNGS:Normal, CVS:Normal, MSK:Normal laboratory and microbiology Laboratory Tests 07/02/24 04:59 Test 07/02/24 04:59 Range/Units Serum Glucose 89 74-106 mg/dL Microbiology Date/Time Source Procedure Growth Status 06/28/24 15:27 Blood Blood Culture - Preliminary NO GROWTH AFTER 72 HOURS OF INCUBATION. Resulted 06/25/24 08:20 Catheter Site Aerobic Culture - Preliminary Methicillin Resistant S.aureus Acinetobacter baumannii MDRO Enterococcus faecalis Resulted 06/11/24 16:06 Bronchial Washings Gram Stain - Final Complete 06/11/24 16:06 Respiratory Culture - Final Acinetobacter baumannii Pseudomonas aeruginosa Complete 05/30/24 11:45 Pleural Fluid Gram Stain - Final Complete 05/30/24 11:45 Pleural Fluid Body Fluid Culture - Final Complete 05/28/24 22:36 Urine - Catheterized Urine Culture - Final Enterobacter cloacae Escherichia coli Enterococcus faecalis - VRE Complete Problem List/Assessment/Plan Problem List/Assessment/Plan Acute kidney injury superimposed on chronic kidney disease stage 4, oliguric requiring initiation of hemodialysis D Acute respiratory failure, patient is trached Anemia suspected due to low blood loss s/p PRBC Septic shock Hypernatremia Hypokalemia Peripheral arterial disease Right above knee amputation Metabolic acidosis Chronic urinary retention MRSA bacteremia Recommendations Continue with UF to 2- 3 L as tolerated Epogen 53775 IV post hemodialysis Rubio catheter Strict I&Os KCL replacement IV pressor for blood pressure support IV antibiotic per ID consult We will continue to follow Plan discussed with: Patient My Orders My Orders Orders - DAVID TORRES MD Procedure Category Date Status Time Hemodialysis Orders ORDERS 07/02/24 Transmitted 06:00 Epoetin Calin-Epbx PHA 07/02/24 In Process (Retacrit) 21:00 Dietary Evaluation Review Comments: 1) If GI is assessible consider Jevity 1.2 @ 60 ml/hr x24 hrs goal rate as tolerated 2) If pt remains NPO >7 days consider TPN to meet at least 75% of estimated needs 3) Advance pt diet when medically feasible to a Cardiac/Renal Specific K2,2gmNA,low phos,60g Pro diet modified per SAUSAGE CUTTER recommendations 4) Continue current plan of care Expected Outcomes/Goals: 1) Pt to receive adequate nutrition support 2) Pt diet to advance CC Plasma Assessment Blood Product Administration S: [id number] DAVID TORRES MD Jul 02, 2024 11:44
[2024-07-02] MEDS: Jevity 1.2 Cal/Fiber 1 Liter GT SCH (13:36)
--- NOTE | 2024-07-02 13:50 | DVHPNRES ---
Progress Note Date Seen: Jul 02, 2024 Resident Creating Document: THA CRISOSTOMO RESIDENT Has the PT tested + for MRSA If YES, has PT been informed?: Yes Medical Necessity Reason Pt with a Central, PICC or Fol: Yes The following are medically ne: Central Line, Rubio Catheter Reason for rubio catheter: Strict I&O Subjective Review of Systems This is a 65-year-old male with past medical history of CHF, CKD, COPD, dyslipidemia, hypertension, CVA brought to the hospital with shortness of breaths and at the level of consciousness. Admitted and intubated on 05/28, extubated on 06/09 but reintubated on 06/10. Epigastric performed on 06/13, PEG tube placed on 06/15. 07/01 - Patient seen and examined at bedside. Overnight no events, patient made 150 cc of urine in the morning and 125 cc in the night. Multiple bowel movements 500 cc on 06/30, 250 cc on the night of 07/01 and 200 on the morning of 07/01. Lactulose changed to p.r.n.. Patient is intubated and mechanically ventilated. Patient is satting 97% on trach collar via 6 L oxygen supplementation for the past 24 hours. He is not on pressor support. On fentanyl 20 mcg. Increase metoprolol to 50 mg b.i.d. and started clonidine 0.1 mg b.i.d.. Started fentanyl patch 25 mcg. IV fentanyl will be discontinued after overlapping her 4-5 hours with fentanyl patch. 07/02 - overnight patient made 100 mL of urine. 50 mL of output was drain from colostomy bag. Otherwise no events. Patient seen and examined at bedside. He underwent dialysis this morning and 2.5 L were drained. Chest x-ray reviewed shows worsening left-sided infiltrate. Patient is satting 98% on 3 color with 6 L oxygen supplementation. Objective vital signs Vital Sign Date Time Temp Pulse Resp B/P (MAP) Pulse Ox O2 Delivery O2 Flow Rate FiO2 07/02/24 13:21 156/69 07/02/24 13:00 75 15 95 07/02/24 12:00 Trach Collar 6 28 28 07/02/24 12:00 97.9 97.9 Total Intake and Output 07/01/24 07/01/24 07/02/24 15:00 23:00 07:00 Intake Total 354.0 ml 750.5 ml 285 ml Output Total 300 ml 150 ml Balance 354.0 ml 450.5 ml 135 ml medications Current Medications Medications Dose Ordered Sig/[place] Route Start Time Stop Time Status Last Admin Dose Admin Diagnostic Test (Pha) 1 strip Q6HR 06/02/24 12:00 07/02/24 12:00 1 STRIP Heparin Sodium (Porcine) 4,000 units PRN PRN IV 06/07/24 09:00 Hydralazine HCl 100 mg Q8HR PO 06/07/24 14:00 07/02/24 13:21 100 MG Amlodipine Besylate 10 mg DAILY PO 06/10/24 10:00 07/02/24 09:37 10 MG Enoxaparin Sodium 40 mg DAILY SC 06/10/24 10:00 UNV Enoxaparin Sodium 40 mg DAILY SC 06/17/24 10:00 UNV Epoetin Morena-epbx 10,000 unit TUTHSA SC 06/17/24 12:00 Hold 06/28/24 08:25 10,000 UNIT Sodium Chloride 10 ml QSHIFT@10,22 IV 06/17/24 22:00 07/02/24 09:39 10 ML Acetaminophen 650 mg Q6HP PRN GT 06/20/24 11:30 06/28/24 17:05 650 MG Fentanyl Citrate 250 ml @ 2.5 mls/hr Q24H IV 06/24/24 10:45 06/30/24 15:00 7.5 MLS/HR Hydralazine HCl 10 mg Q4HP PRN IV 06/24/24 16:45 07/02/24 08:32 10 MG Omeprazole 20 mg DAILY GT 06/26/24 10:00 07/02/24 09:37 20 MG Meropenem 50 ml @ 17 mls/hr Q12H IV 06/27/24 18:00 07/01/24 17:43 17 MLS/HR Albuterol 2.5 mg Q6HPRN PRN NEB 06/28/24 11:30 07/02/24 00:28 2.5 MG Linezolid 300 ml @ 150 mls/hr Q12HR IV 06/28/24 22:00 07/02/24 09:37 150 MLS/HR Lactulose 30 ml [id number] PRN PEG 07/01/24 10:15 Metoprolol Tartrate 50 mg BID PO 07/01/24 22:00 07/02/24 09:38 50 MG Clonidine HCl 0.1 mg BID PO 07/01/24 17:15 07/02/24 09:39 0.1 MG Fentanyl 25 mcg Q72H TD 07/01/24 17:30 07/01/24 18:01 25 MCG Enteral Nutritional Formula 1,000 ml 60ML/HR GT 07/02/24 11:00 07/02/24 13:36 1,000 ML Examination Patient lying in bed, in no acute distress. Left IJ CVC seen General: afebrile, palor, mucosae are moist Cardiovascular: Regular S1 and S2. No murmurs, gallops or rubs. No JVD elevation. Bilateral pitting edema. Respiratory: Decreased but equal Bilateral air entry. Saturating 97% on trach collar. Abdomen: Soft, nontender, nondistended, normoactive bowel sounds, no rebound tenderness, no organomegaly, no masses. Suprapubic catheter seen draining urine and colostomy bag seen draining 50 mL of brown reddish stool which is liquid in consistency. Peg tube in place. Genitourinary: Stage III sacral ulcer, skin non intact, draining pus and erythema noted. MSK/skin: Limb movement can not be assessed. Skin is dry and warm Neurological: Pupils are isocoric and reactive. laboratory and microbiology Laboratory Tests 07/02/24 04:59 Test 07/02/24 04:59 Range/Units Serum Glucose 89 74-106 mg/dL Microbiology Date/Time Source Procedure Growth Status 06/28/24 15:27 Blood Blood Culture - Preliminary NO GROWTH AFTER 72 HOURS OF INCUBATION. Resulted 06/25/24 08:20 Catheter Site Aerobic Culture - Preliminary Methicillin Resistant S.aureus Acinetobacter baumannii MDRO Enterococcus faecalis Resulted 06/11/24 16:06 Bronchial Washings Gram Stain - Final Complete 06/11/24 16:06 Respiratory Culture - Final Acinetobacter baumannii Pseudomonas aeruginosa Complete 05/30/24 11:45 Pleural Fluid Gram Stain - Final Complete 05/30/24 11:45 Pleural Fluid Body Fluid Culture - Final Complete 05/28/24 22:36 Urine - Catheterized Urine Culture - Final Enterobacter cloacae Escherichia coli Enterococcus faecalis - VRE Complete Labs and/or images reviewed: Labs reviewed by me, Image(s) reviewed by me Problem List/Assessment/Plan Problem List/Assessment/Plan NEURO: Acute metabolic encephalopathy likely due to sepsis History of seizure Patient is sedated and on mechanical ventilation, RASS scores -2 History of seizure during last admission(1 month back) used Keppra for 1 week Discontinued Keppra, on 06/16 EEG shows abnormal EEG recording consistent with the presence of a diffuse nonspecific encephalopathic state CARDIOVASCULAR: Hypertension Continue injection hydralazine 10 mg q.6 hours as needed Increase metoprolol to 50 mg b.i.d., Continue amlodipine 10 mg, hydralazine 100 mg t.i.d. Started clonidine 0.1 mg twice daily 07/01 PULMONARY: Acute Hypoxic Respiratory Failure likely due to pneumonia Septic shock likely due to pneumonia, improved Pneumonia likely due to MRSA and Enterobacter cloacae - Patient is sedated and mechanically ventilated with PEEP of 30% - CT scan shows [id number] left pleural effusion - MRSA nares screening, COVID-19 and flu are negative - Bronchoscopy performed on 06/11, there was some thin mucus secretion on bilateral side, bronchial lavage of right lower lobe and left lower lobe was performed, and the culture results shows Pseudomonas aeruginosa and Enterobacter baumanni, MDR; ID has been consulted - Sputum culture from bronchoalveolar lavage from 05/24/24 shows MRSA, Enterobacter cloacae - Blood culture from the 06/02/24 shows Staphylococcus epidermidis , Staph hominis - Repeat culture from 06/09/2024 shows no growth - Stopped in linezolid, given for 11 days, discontinued meropenem, started on 06/08 and given for 12 days - discontinued N-acetylcysteine 07/01 - Breathing treatment q.6 hours p.r.n. - Trach collar trial, 1 hour b.i.d. as tolerated, today was tried on 10 lit of O2 and FiO2 30%, and the patient developed tachypnea during the trial -started fentanyl patch 25 mcg 07/01 GI - GI ppx: omeprazole 20mg daily via OG tube - Hepatitis-C virus antibody positive - Repeat stool occult blood test is negative - CT abdominopelvic without contrast shows no evidence of intra-abdominal hemorrhage - Tracheostomy is performed on 06/13 - PEG tube is placed on 06/15 - Bowel regimen: Lactulose 30 mL b.i.d. change to p.r.n. 07/01 : FROYLAN, possible VMN on ESRD requiring hemodialysis - Nephrology consulted, epoetin morena 80032 units SC post dialysis. Radiology for tunneled hemodialysis catheter when the blood culture negative for 72 hours - Stopped Bumix 1mg BID - creatinine increased to 3.91 from 3.64 - Homer catheter placed on left internal jugular, on 06/26 - completed hemodialysis session on 07/02, 2.5 L fluid removed. UTI, urinalysis shows UTI picture - Urine culture from 05/28/2024 shows Enterobacter, E coli, Enterococcus faecalis Status post right lower limb, AKA likely due to PAD Decubitus ulcer - There are multiple stage 3-4 sacral ulcers draining pus - position changing every 2 hours and dressing -started fentanyl patch 25 mcg 07/01 HEME Severe anemia, transfused 4 pack of red blood cells Thrombocytopenia - current HB is 8 ID: - Sputum culture from bronchoalveolar lavage from 05/24/24 shows MRSA, Enterobacter cloacae - Blood culture from the 06/02/24 shows Staphylococcus epidermidis , Staph hominis - Repeat culture from 06/09/2024 shows no growth - culture results from BAL from 06/11 shows Pseudomonas aeruginosa and Enterobacter baumanni, MDR - continue IV linezolid starting 06/28 and meropenem starting 06/25 - previously received vancomycin - catheter site culture 06/25 completed shows MRSA, Acinetobacter baumannii MDRO, Enterococcus faecalis. SKIN Possible keloid - There is a growth on the left shoulder, per son, lesion has been present for several years - Follow up on outpatient basis Metabolic: Hypernatremia, improved Hypokalemia, discontinued potassium supplementation given ESRD Hyperkalemia, improved Mild hyponatremia, monitoring Hypoglycemic episodes, improved Hypomagnesemia, supplemented LINES/DRAINS/ACCESS: ETT, intubated on 05/28/2024 and tracheostomy performed on 06/11, PEG tube placed on 06/15 IV access Left internal jugular CVC, placed on 06/26 Suprapubic catheter, changed on 06/02/2020 Dripps: Fentanyl patch 25 mg No pressor DIET: Jevity 1.2 john 60 mL/hour DVT prophylaxis Heparin 2000 units Disposition: social human services assistants consulted for transfer to the [facility] critical care time including review of charts, discussing case with patient's nurse, excluding procedures is 46 mins CODE STATUS: Full code Plan discussed with patient and his son over the phone call in which all questions have been answered. Case discussed with Dr. Isabel. Patient will require tunneled catheter for hemodialysis in the near future. Plan discussed with: Patient, Son My Orders My Orders Orders - THA CRISOSTOMO Procedure Category Date Status Time Metoprolol Tartrate PHA 07/01/24 In Process Tablet (Lopressor Ta 22:00 Clonidine Hcl Tablet PHA 07/01/24 In Process (Catapres Tablet) 17:15 Fentanyl 25mcg/Hr PHA 07/01/24 In Process (Duragesic 25mcg/Hr) 17:30 Chest Xray 1 View XY 07/02/24 Resulted 04:00 Communication Order ORDERS 07/01/24 Transmitted 18:09 Nutritional PHA 07/02/24 In Process Supplements (Jevity 11:00 Dietary Evaluation Review Comments: 1) If GI is assessible consider Jevity 1.2 @ 60 ml/hr x24 hrs goal rate as tolerated 2) If pt remains NPO >7 days consider TPN to meet at least 75% of estimated needs 3) Advance pt diet when medically feasible to a Cardiac/Renal Specific K2,2gmNA,low phos,60g Pro diet modified per [employer] recommendations 4) Continue current plan of care Expected Outcomes/Goals: 1) Pt to receive adequate nutrition support 2) Pt diet to advance CC Plasma Assessment Blood Product Administration S: [id number] Date of Service: Jul 02, 2024 Billing Provider: HOLGER ISABEL MD Common Visit Codes: [id number] CARE 30-74 MIN THA CRISOSTOMO RESIDENT Jul 02, 2024 13:50 HOLGER ISABEL MD Jul 03, 2024 12:20
[2024-07-02] MEDS: EPOETIN ALFA-EPBX 10,000 UNIT/1ML VIAL SC ONE (21:15)
[2024-07-03] VITALS (43 sets, daily range): BP systolic 145–178; BP diastolic 65–86; PULSE 64–84; RESP 11–22; TEMP 98.1–98.5; O2SAT 95–100
--- NOTE | 2024-07-03 05:07 | DVH ---
CHEST RADIOGRAPH Indication: f/u Technique: Single frontal view of the chest was obtained COMPARISON: XY CHEST XRAY 1 VIEW on DOS: 07/02/24, XY CHEST PORTABLE on DOS: 06/30/24, XY CHEST SHABNAM BLE on DOS: 06/29/24, XY CHEST XRAY 1 VIEW on DOS: 07/02/24 FINDINGS: Lines and Tubes: Left PICC terminates in the superior vena cava. Left central venous catheter termin ates in the superior vena cava. Tracheostomy tube is unchanged. Lungs: Bilateral interstitial prominence. Left basilar opacity. Pleura: Moderate left pleural effusion and small right pleural effusion. No pneumothorax. Cardiomediastinal contours: Stable. Bones: No acute osseous abnormality. IMPRESSION: 1. Stable position of the support lines and tubes. 2. Pulmonary vascular congestion and bilateral pleural effusions.
[2024-07-03 05:56] LABS: Hemoglobin 8.2 g/dL (13.5-17.5)
[2024-07-03 05:59] LABS: Hematocrit 24.5 % (41.0-53.0); Mean Corpuscular Hemoglobin 32.6 pg (28.0-32.0); Mean Corpuscular Hgb Conc. 33.6 g/dL (32.0-36.0); Mean Corpuscular Volume 96.9 fL (80.0-100.0); Platelet Count (auto) 126 10^3/uL (140-450); Red Blood Cells 2.52 10^6/uL (4.5-5.90); Red Cell Distribution Width 19.8 % (11.8-14.3); White Blood Cell 5.9 10^3/uL (4.4-10.8)
[2024-07-03 06:02] LABS: Anion Gap 5 (5-15); Aspartate Aminotransferase 18 U/L (13-40); BUN/Creatinine Ratio 8.8 (10.0-20.0); Calcium 8.7 mg/dL (8.7-10.4); Carbon Dioxide 29 mmol/L (20-31); Chloride 105 mmol/L (98-107); Glucose 102 mg/dL (74-106); Potassium 4.1 mmol/L (3.5-5.1); Sodium 139 mmol/L (136-145)
[2024-07-03 06:03] LABS: Alanine Aminotransferase < 9 U/L (7-40); Albumin 2.2 g/dL (3.2-4.8); Alkaline Phosphatase 120 U/L (46-116); Bilirubin, Total < 0.2 mg/dL (0.2-1.0); Blood Urea Nitrogen 29 mg/dL (9-23); Total Protein 5.8 g/dL (5.7-8.2)
[2024-07-03 06:06] LABS: Basophils % (manual) 0 (0.0-2.0); Blast Cells 0; Metamyelocytes % 0; Myelocytes % 0; Promyelocytes % 0; Reactive Lymphocytes 0
[2024-07-03 07:50] LABS: Band Neutrophils % (manual) 3; Eosinophils % (manual) 6 (0-7); Lymphocytes % (manual) 19 (10.0-50.0); Monocytes % (manual) 9 (0-12); Platelet Estimate Decreased
--- NOTE | 2024-07-03 16:14 | DVHPN2 ---
Progress Note Date Seen: Jul 03, 2024 Has the PT tested + for MRSA If YES, has PT been informed?: Yes Medical Necessity Reason Pt with a Central, PICC or Fol: Yes The following are medically ne: Central Line, Rubio Catheter Reason for rubio catheter: Strict I&O Subjective Review of Systems: RESPIRATORY:Abnormal Other Systems: Patient seen and examined by myself on follow-up today, patient remained trached Objective vital signs Vital Sign Date Time Temp Pulse Resp B/P (MAP) Pulse Ox O2 Delivery O2 Flow Rate FiO2 07/03/24 16:10 98.1 75 11 96 98.1 07/03/24 14:00 Trach Collar 6 28 28 Total Intake and Output 07/02/24 07/02/24 07/03/24 15:00 23:00 07:00 Intake Total 300 ml 380 ml 536 ml Output Total 165 ml 100 ml Balance 300 ml 215 ml 436 ml medications Current Medications Medications Dose Ordered Sig/[place] Route Start Time Stop Time Status Last Admin Dose Admin Heparin Sodium (Porcine) 4,000 units PRN PRN IV 06/07/24 09:00 Hydralazine HCl 100 mg Q8HR PO 06/07/24 14:00 07/03/24 14:30 100 MG Amlodipine Besylate 10 mg DAILY PO 06/10/24 10:00 07/03/24 09:17 10 MG Enoxaparin Sodium 40 mg DAILY SC 06/10/24 10:00 UNV Enoxaparin Sodium 40 mg DAILY SC 06/17/24 10:00 UNV Epoetin Calin-epbx 10,000 unit TUTHSA SC 06/17/24 12:00 Hold 06/28/24 08:25 10,000 UNIT Sodium Chloride 10 ml QSHIFT@10,22 IV 06/17/24 22:00 07/03/24 09:39 10 ML Acetaminophen 650 mg Q6HP PRN GT 06/20/24 11:30 06/28/24 17:05 650 MG Hydralazine HCl 10 mg Q4HP PRN IV 06/24/24 16:45 07/03/24 03:08 10 MG Omeprazole 20 mg DAILY GT 06/26/24 10:00 07/03/24 09:19 20 MG Meropenem 50 ml @ 17 mls/hr Q12H IV 06/27/24 18:00 07/03/24 05:41 17 MLS/HR Albuterol 2.5 mg Q6HPRN PRN NEB 06/28/24 11:30 07/02/24 00:28 2.5 MG Linezolid 300 ml @ 150 mls/hr Q12HR IV 06/28/24 22:00 07/03/24 09:15 150 MLS/HR Lactulose 30 ml [id number] PRN PEG 07/01/24 10:15 Metoprolol Tartrate 50 mg BID PO 07/01/24 22:00 07/03/24 09:16 50 MG Fentanyl 25 mcg Q72H TD 07/01/24 17:30 07/01/24 18:01 25 MCG Enteral Nutritional Formula 1,000 ml 60ML/HR GT 07/02/24 11:00 07/02/24 13:36 1,000 ML Clonidine HCl 0.2 mg BID PO 07/03/24 22:00 Examination: LUNGS:Normal, CVS:Normal, MSK:Normal laboratory and microbiology Laboratory Tests 07/03/24 04:49 Test 07/03/24 04:49 Range/Units Serum Glucose 102 74-106 mg/dL Microbiology Date/Time Source Procedure Growth Status 06/28/24 15:27 Blood Blood Culture - Final NO GROWTH AFTER 5 DAYS OF INCUBATION. Complete 06/25/24 08:20 Catheter Site Aerobic Culture - Preliminary Methicillin Resistant S.aureus Acinetobacter baumannii MDRO Enterococcus faecalis Resulted 06/11/24 16:06 Bronchial Washings Gram Stain - Final Complete 06/11/24 16:06 Respiratory Culture - Final Acinetobacter baumannii Pseudomonas aeruginosa Complete 05/30/24 11:45 Pleural Fluid Gram Stain - Final Complete 05/30/24 11:45 Pleural Fluid Body Fluid Culture - Final Complete 05/28/24 22:36 Urine - Catheterized Urine Culture - Final Enterobacter cloacae Escherichia coli Enterococcus faecalis - VRE Complete Problem List/Assessment/Plan Problem List/Assessment/Plan Acute kidney injury superimposed on chronic kidney disease stage 4, oliguric requiring initiation of hemodialysis D Acute respiratory failure, patient is trached Anemia suspected due to low blood loss s/p PRBC Septic shock Hypernatremia Hypokalemia Peripheral arterial disease Right above knee amputation Metabolic acidosis Chronic urinary retention MRSA bacteremia Recommendations Hemodialysis tomorrow Epogen 80809 IV post hemodialysis Rubio catheter Strict I&Os KCL replacement IV pressor for blood pressure support IV antibiotic per ID consult We will continue to follow Plan discussed with: Other (Nurse) Dietary Evaluation Review Comments: 1) If GI is assessible consider Jevity 1.2 @ 60 ml/hr x24 hrs goal rate as tolerated 2) If pt remains NPO >7 days consider TPN to meet at least 75% of estimated needs 3) Advance pt diet when medically feasible to a Cardiac/Renal Specific K2,2gmNA,low phos,60g Pro diet modified per [employer] recommendations 4) Continue current plan of care Expected Outcomes/Goals: 1) Pt to receive adequate nutrition support 2) Pt diet to advance CC Plasma Assessment Blood Product Administration S: [id number] DAVID TORRES MD Jul 03, 2024 16:14
--- NOTE | 2024-07-03 17:25 | DVHPNRES ---
Progress Note Date Seen: Jul 03, 2024 Resident Creating Document: THA CRISOSTOMO RESIDENT Has the PT tested + for MRSA If YES, has PT been informed?: Yes Medical Necessity Reason Pt with a Central, PICC or Fol: Yes The following are medically ne: Central Line, Rubio Catheter Reason for rubio catheter: Strict I&O Subjective Review of Systems This is a 65-year-old male with past medical history of CHF, CKD, COPD, dyslipidemia, hypertension, CVA brought to the hospital with shortness of breaths and at the level of consciousness. Admitted and intubated on 05/28, extubated on 06/09 but reintubated on 06/10. Epigastric performed on 06/13, PEG tube placed on 06/15. 07/01 - Patient seen and examined at bedside. Overnight no events, patient made 150 cc of urine in the morning and 125 cc in the night. Multiple bowel movements 500 cc on 06/30, 250 cc on the night of 07/01 and 200 on the morning of 07/01. Lactulose changed to p.r.n.. Patient is intubated and mechanically ventilated. Patient is satting 97% on trach collar via 6 L oxygen supplementation for the past 24 hours. He is not on pressor support. On fentanyl 20 mcg. Increase metoprolol to 50 mg b.i.d. and started clonidine 0.1 mg b.i.d.. Started fentanyl patch 25 mcg. IV fentanyl will be discontinued after overlapping her 4-5 hours with fentanyl patch. 07/02 - overnight patient made 100 mL of urine. 50 mL of output was drain from colostomy bag. Otherwise no events. Patient seen and examined at bedside. He underwent dialysis this morning and 2.5 L were drained. Chest x-ray reviewed shows worsening left-sided infiltrate. Patient is satting 98% on 3 color with 6 L oxygen supplementation. 07/03 - overnight colostomy bag was leaking so it was changed. Patient had 50 mL urine output in the shift coordinator, 115 mL during the of the of 07/02. Colostomy bag was drained with 50 mL of contents. Patient is still hypotensive systolic ranging in 150s to 160s therefore clonidine increased to 0.2 mg b.i.d.. Creatinine trending down to 3.2. Tunnel catheter consent obtained. IR consulted. NPO starting morning. Final blood culture 06/28 shows no growth Objective vital signs Vital Sign Date Time Temp Pulse Resp B/P (MAP) Pulse Ox O2 Delivery O2 Flow Rate FiO2 07/03/24 16:10 98.1 75 11 96 98.1 07/03/24 14:00 Trach Collar 6 28 28 Total Intake and Output 07/02/24 07/02/24 07/03/24 15:00 23:00 07:00 Intake Total 300 ml 380 ml 536 ml Output Total 165 ml 100 ml Balance 300 ml 215 ml 436 ml medications Current Medications Medications Dose Ordered Sig/[place] Route Start Time Stop Time Status Last Admin Dose Admin Heparin Sodium (Porcine) 4,000 units PRN PRN IV 06/07/24 09:00 Hydralazine HCl 100 mg Q8HR PO 06/07/24 14:00 07/03/24 14:30 100 MG Amlodipine Besylate 10 mg DAILY PO 06/10/24 10:00 07/03/24 09:17 10 MG Enoxaparin Sodium 40 mg DAILY SC 06/10/24 10:00 UNV Enoxaparin Sodium 40 mg DAILY SC 06/17/24 10:00 UNV Epoetin Morena-epbx 10,000 unit TUTHSA SC 06/17/24 12:00 Hold 06/28/24 08:25 10,000 UNIT Sodium Chloride 10 ml QSHIFT@10,22 IV 06/17/24 22:00 07/03/24 09:39 10 ML Acetaminophen 650 mg Q6HP PRN GT 06/20/24 11:30 06/28/24 17:05 650 MG Hydralazine HCl 10 mg Q4HP PRN IV 06/24/24 16:45 07/03/24 03:08 10 MG Omeprazole 20 mg DAILY GT 06/26/24 10:00 07/03/24 09:19 20 MG Meropenem 50 ml @ 17 mls/hr Q12H IV 06/27/24 18:00 07/03/24 16:58 17 MLS/HR Albuterol 2.5 mg Q6HPRN PRN NEB 06/28/24 11:30 07/02/24 00:28 2.5 MG Linezolid 300 ml @ 150 mls/hr Q12HR IV 06/28/24 22:00 07/03/24 09:15 150 MLS/HR Lactulose 30 ml [id number] PRN PEG 07/01/24 10:15 Metoprolol Tartrate 50 mg BID PO 07/01/24 22:00 07/03/24 09:16 50 MG Fentanyl 25 mcg Q72H TD 07/01/24 17:30 07/01/24 18:01 25 MCG Enteral Nutritional Formula 1,000 ml 60ML/HR GT 07/02/24 11:00 07/02/24 13:36 1,000 ML Clonidine HCl 0.2 mg BID PO 07/03/24 22:00 Examination Patient lying in bed, in no acute distress. Left IJ CVC seen General: afebrile, palor, mucosae are moist Cardiovascular: Regular S1 and S2. No murmurs, gallops or rubs. No JVD elevation. Bilateral pitting edema. Respiratory: Decreased but equal Bilateral air entry. Saturating 97% on trach collar. Abdomen: Soft, nontender, nondistended, normoactive bowel sounds, no rebound tenderness, no organomegaly, no masses. Suprapubic catheter seen draining urine and colostomy bag seen draining 30 mL of brown reddish stool which is liquid in consistency. Peg tube in place. Genitourinary: Stage III sacral ulcer, skin non intact, draining pus and erythema noted. MSK/skin: Limb movement can not be assessed. Skin is dry and warm Neurological: Pupils are isocoric and reactive. laboratory and microbiology Laboratory Tests 07/03/24 04:49 Test 07/03/24 04:49 Range/Units Serum Glucose 102 74-106 mg/dL Microbiology Date/Time Source Procedure Growth Status 06/28/24 15:27 Blood Blood Culture - Final NO GROWTH AFTER 5 DAYS OF INCUBATION. Complete 06/25/24 08:20 Catheter Site Aerobic Culture - Preliminary Methicillin Resistant S.aureus Acinetobacter baumannii MDRO Enterococcus faecalis Resulted 06/11/24 16:06 Bronchial Washings Gram Stain - Final Complete 06/11/24 16:06 Respiratory Culture - Final Acinetobacter baumannii Pseudomonas aeruginosa Complete 05/30/24 11:45 Pleural Fluid Gram Stain - Final Complete 05/30/24 11:45 Pleural Fluid Body Fluid Culture - Final Complete 05/28/24 22:36 Urine - Catheterized Urine Culture - Final Enterobacter cloacae Escherichia coli Enterococcus faecalis - VRE Complete Labs and/or images reviewed: Labs reviewed by me, Image(s) reviewed by me Problem List/Assessment/Plan Problem List/Assessment/Plan NEURO: Acute metabolic encephalopathy likely due to sepsis History of seizure Patient is sedated and on mechanical ventilation, RASS scores -2 History of seizure during last admission(1 month back) used Keppra for 1 week Discontinued Keppra, on 06/16 EEG shows abnormal EEG recording consistent with the presence of a diffuse nonspecific encephalopathic state CARDIOVASCULAR: Hypertension Continue injection hydralazine 10 mg q.6 hours as needed Increase metoprolol to 50 mg b.i.d., Continue amlodipine 10 mg, hydralazine 100 mg t.i.d. Started clonidine 0.1 mg twice daily 07/01. Clonidine increased to 0.2 mg b.i.d. 07/03 Final blood culture 06/28 shows no growth PULMONARY: Acute Hypoxic Respiratory Failure likely due to pneumonia Septic shock likely due to pneumonia, improved Pneumonia likely due to MRSA and Enterobacter cloacae - Patient is sedated and mechanically ventilated with PEEP of 30% - CT scan shows [id number] left pleural effusion - MRSA nares screening, COVID-19 and flu are negative - Bronchoscopy performed on 06/11, there was some thin mucus secretion on bilateral side, bronchial lavage of right lower lobe and left lower lobe was performed, and the culture results shows Pseudomonas aeruginosa and Enterobacter baumanni, MDR; ID has been consulted - Sputum culture from bronchoalveolar lavage from 05/24/24 shows MRSA, Enterobacter cloacae - Blood culture from the 06/02/24 shows Staphylococcus epidermidis , Staph hominis - Repeat culture from 06/09/2024 shows no growth - Stopped in linezolid, given for 11 days, discontinued meropenem, started on 06/08 and given for 12 days - discontinued N-acetylcysteine 07/01 - Breathing treatment q.6 hours p.r.n. - Trach collar trial, 1 hour b.i.d. as tolerated, today was tried on 10 lit of O2 and FiO2 30%, and the patient developed tachypnea during the trial -started fentanyl patch 25 mcg 07/01 GI - GI ppx: omeprazole 20mg daily via OG tube - Hepatitis-C virus antibody positive - Repeat stool occult blood test is negative - CT abdominopelvic without contrast shows no evidence of intra-abdominal hemorrhage - Tracheostomy is performed on 06/13 - PEG tube is placed on 06/15 - Bowel regimen: Lactulose 30 mL b.i.d. change to p.r.n. 07/01 : FROYLAN, possible VMN on ESRD requiring hemodialysis - Nephrology consulted, epoetin morena 81771 units SC post dialysis. Radiology for tunneled hemodialysis catheter when the blood culture negative for 72 hours - Stopped Bumix 1mg BID - creatinine increased to 3.91 from 3.64 - Homer catheter placed on left internal jugular, on 06/26 - completed hemodialysis session on 07/02, 2.5 L fluid removed. - NPO starting midnight for tunnel catheter for hemodialysis 07/04. UTI, urinalysis shows UTI picture - Urine culture from 05/28/2024 shows Enterobacter, E coli, Enterococcus faecalis Status post right lower limb, AKA likely due to PAD Decubitus ulcer - There are multiple stage 3-4 sacral ulcers draining pus - position changing every 2 hours and dressing -started fentanyl patch 25 mcg 07/01 HEME Severe anemia, transfused 4 pack of red blood cells Thrombocytopenia - current HB is 8 ID: - Sputum culture from bronchoalveolar lavage from 05/24/24 shows MRSA, Enterobacter cloacae - Blood culture from the 06/02/24 shows Staphylococcus epidermidis , Staph hominis - Repeat culture from 06/09/2024 shows no growth - culture results from BAL from 06/11 shows Pseudomonas aeruginosa and Enterobacter baumanni, MDR - continue IV linezolid starting 06/28 and meropenem starting 06/25 - previously received vancomycin - catheter site culture 06/25 completed shows MRSA, Acinetobacter baumannii MDRO, Enterococcus faecalis. SKIN Possible keloid - There is a growth on the left shoulder, per son, lesion has been present for several years - Follow up on outpatient basis Metabolic: Hypernatremia, improved Hypokalemia, discontinued potassium supplementation given ESRD Hyperkalemia, improved Mild hyponatremia, monitoring Hypoglycemic episodes, improved Hypomagnesemia, supplemented LINES/DRAINS/ACCESS: ETT, intubated on 05/28/2024 and tracheostomy performed on 06/11, PEG tube placed on 06/15 IV access Left internal jugular CVC, placed on 06/26 Suprapubic catheter, changed on 06/02/2020 Dripps: Fentanyl patch 25 mg No pressor DIET: Jevity 1.2 john 60 mL/hour DVT prophylaxis Heparin 2000 units Disposition: professor of social work consulted for transfer to the [facility] critical care time including review of charts, discussing case with patient's nurse, excluding procedures is 46 mins CODE STATUS: Full code Plan discussed with patient and his son over the phone call in which all questions have been answered. Case discussed with Dr. Isabel. NPO starting midnight for tunnel catheter for hemodialysis 07/04. IR consulted. critical care time 46 mins Plan discussed with: Patient, Son (Over the phone) My Orders My Orders Orders - THA CRISOSTOMO Procedure Category Date Status Time Chest Xray 1 View XY 07/03/24 Resulted 04:00 * Radiologist Consult CONS 07/02/24 Transmitted 20:15 Clonidine Hcl Tablet PHA 07/03/24 In Process (Catapres Tablet) 22:00 Dietary Evaluation Review Comments: 1) If GI is assessible consider Jevity 1.2 @ 60 ml/hr x24 hrs goal rate as tolerated 2) If pt remains NPO >7 days consider TPN to meet at least 75% of estimated needs 3) Advance pt diet when medically feasible to a Cardiac/Renal Specific K2,2gmNA,low phos,60g Pro diet modified per CRYPTOLOGIC SUPERVISOR recommendations 4) Continue current plan of care Expected Outcomes/Goals: 1) Pt to receive adequate nutrition support 2) Pt diet to advance CC Plasma Assessment Blood Product Administration S: [id number] Date of Service: Jul 03, 2024 Billing Provider: HOLGER ISABEL MD Common Visit Codes: 58748-[id number] CARE 30-74 MIN THA CRISOSTOMO Jul 03, 2024 17:25 HOLGER ISABEL MD Jul 05, 2024 16:40
--- NOTE | 2024-07-03 19:46 | DVHPN2 ---
Consult Progress Note Date Seen: Jul 02, 2024 Subjective Patient reports: Feels better (no diarrhea or rash) Objective vital signs Vital Sign Date Time Temp Pulse Resp B/P (MAP) Pulse Ox O2 Delivery O2 Flow Rate FiO2 07/03/24 19:00 82 20 165/85 (111) 96 07/03/24 18:26 Trach Collar 6.0 07/03/24 18:26 28 28 07/03/24 17:30 98.5 98.5 Total Intake and Output 07/02/24 07/02/24 07/03/24 15:00 23:00 07:00 Intake Total 300 ml 380 ml 536 ml Output Total 165 ml 100 ml Balance 300 ml 215 ml 436 ml medications Current Medications Medications Dose Ordered Sig/[place] Route Start Time Stop Time Status Last Admin Dose Admin Heparin Sodium (Porcine) 4,000 units PRN PRN IV 06/07/24 09:00 Hydralazine HCl 100 mg Q8HR PO 06/07/24 14:00 07/03/24 14:30 100 MG Amlodipine Besylate 10 mg DAILY PO 06/10/24 10:00 07/03/24 09:17 10 MG Enoxaparin Sodium 40 mg DAILY SC 06/10/24 10:00 UNV Enoxaparin Sodium 40 mg DAILY SC 06/17/24 10:00 UNV Epoetin Aclin-epbx 10,000 unit TUTHSA SC 06/17/24 12:00 Hold 06/28/24 08:25 10,000 UNIT Sodium Chloride 10 ml QSHIFT@10,22 IV 06/17/24 22:00 07/03/24 09:39 10 ML Acetaminophen 650 mg Q6HP PRN GT 06/20/24 11:30 06/28/24 17:05 650 MG Hydralazine HCl 10 mg Q4HP PRN IV 06/24/24 16:45 07/03/24 03:08 10 MG Omeprazole 20 mg DAILY GT 06/26/24 10:00 07/03/24 09:19 20 MG Albuterol 2.5 mg Q6HPRN PRN NEB 06/28/24 11:30 07/02/24 00:28 2.5 MG Lactulose 30 ml [id number] PRN PEG 07/01/24 10:15 Metoprolol Tartrate 50 mg BID PO 07/01/24 22:00 07/03/24 09:16 50 MG Fentanyl 25 mcg Q72H TD 07/01/24 17:30 07/01/24 18:01 25 MCG Enteral Nutritional Formula 1,000 ml 60ML/HR GT 07/02/24 11:00 07/02/24 13:36 1,000 ML Clonidine HCl 0.2 mg BID PO 07/03/24 22:00 Physical Exam: General: Intubated, not sedated, awake, follows simple commands. Neck: Supple. No masses. HEENT: PERRL. Normal lids and conjunctiva. Moist mucous membranes. - Oropharynx intubated. Heart: Regular rhythm, normal rate. No murmur. No lower extremity edema. Lungs: On ventilator support. Decreased breath sounds bilaterally. - No wheezes. No crackles. Abdomen: Soft. Non-tender. Non-distended. No masses or abdominal hernia. Msk: Right above-knee amputation. Partial left foot amputation. - Normal strength and tone in remaining limbs. Skin: Warm and dry, no rashes. Chronic wounds over ischial tuberosities. Neuro: Alert. No facial droop or slurred speech. Extra-ocular movements intact. - Unable to assess sensation fully. Psych: Unable to assess mood and affect fully. - Oriented to person, place, time, and situation. laboratory and microbiology Laboratory Tests 07/03/24 04:49 Test 07/03/24 04:49 Range/Units Serum Glucose 102 74-106 mg/dL Problem List/Assessment/Plan Problem List/Assessment/Plan ASSESSMENT AND PLAN: ID Problem List: - Altered mental status - MDR Acinetobacter and Pseudomonas respiratory infections - MRSA colonization - Fevers (resolving) - Right above-knee amputation - Partial left foot amputation - Congestive heart failure - Chronic obstructive pulmonary disease - Dyslipidemia - Hypertension - Cerebrovascular accident - Liver disease - Myocardial infarction Assessment This is a 69 y.o. male with a past medical history of right above-knee amputation, partial left foot amputation, CHF, COPD, dyslipidemia, hypertension, CVA, liver disease, and ND, who presents with altered mental status. Patient was noted by family to have progressive confusion over the last three days, culminating in unresponsiveness. On arrival to the ED, the patient was unresponsive and was emergently intubated for airway protection. He was unable to provide history due to altered mental status and was admitted to the ICU for prolonged therapy. He underwent tracheostomy and PEG placement on June 13. Microbiology: - On May 28, sputum culture grew MRSA. - On May 30, bronchial culture grew MRSA. - On June 10, tracheal/bronchial washing grew MDR Acinetobacter and Pseudomonas. - Blood cultures grew Staphylococcus capitis and Staphylococcus auricularis on June 02. - Blood cultures grew Staphylococcus epidermidis and Staphylococcus hominis on June 09. - Blood cultures on June 24 showed no growth. - Catheter tip cultures grew MRSA, MDR Acinetobacter, and Enterococcus. Antibiotic history: - Vancomycin from May 28 to June 14. - Piperacillin-tazobactam (Zosyn) from May 28 to May 29. - Ampicillin from May 29 to . - Ceftriaxone from May 29 to . - Linezolid from May 31 to . - Meropenem from May 31 to . Currently, the patient is on linezolid and meropenem. Fevers have resolved since June 27, and recent cultures remain negative. Plan: - Discontinue linezolid and meropenem as the patient has completed adequate therapy and cultures are negative. - Plan to replace catheter line for dialysis once blood cultures remain clear for at least 72 hours. - Monitor for signs of infection. - Continue supportive care. - Isolation Precautions: Standard. Assessment and plan were discussed with the patient as written above. Plan is subject to change pending incorporation of new incoming information/diagnostics. Updates may be added as addendum at the bottom (OR TOP) of this note. Thank you for interesting consult. ID will continue to follow. Please contact Infectious Disease for any questions or concerns. Plan discussed with: Patient Dietary Evaluation Review Comments: 1) If GI is assessible consider Jevity 1.2 @ 60 ml/hr x24 hrs goal rate as tolerated 2) If pt remains NPO >7 days consider TPN to meet at least 75% of estimated needs 3) Advance pt diet when medically feasible to a Cardiac/Renal Specific K2,2gmNA,low phos,60g Pro diet modified per RAIL SWITCH OPERATOR recommendations 4) Continue current plan of care Expected Outcomes/Goals: 1) Pt to receive adequate nutrition support 2) Pt diet to advance CC Plasma Assessment Blood Product Administration S: [id number] SURINDER CHOWDHURY MD Jul 03, 2024 19:46
[2024-07-03] MEDS: cloNIDine HCL 0.1 MG TAB PO SCH (21:13)
--- NOTE | 2024-07-03 22:16 | DVHPN2 ---
Consult Progress Note Date Seen: Jul 03, 2024 Subjective Patient reports: Other (on minimal vent , is awake and alert , has a tach and peg , and a right AKA , thats the right leg amputation , 6 liters trach collar and off all sedation) Objective vital signs Vital Sign Date Time Temp Pulse Resp B/P (MAP) Pulse Ox O2 Delivery O2 Flow Rate FiO2 07/03/24 21:14 75 163/74 07/03/24 21:00 18 98 07/03/24 20:00 Trach Collar 6 28 28 07/03/24 20:00 98.5 98.5 Total Intake and Output 07/02/24 07/02/24 07/03/24 15:00 23:00 07:00 Intake Total 300 ml 380 ml 536 ml Output Total 165 ml 100 ml Balance 300 ml 215 ml 436 ml medications Current Medications Medications Dose Ordered Sig/[place] Route Start Time Stop Time Status Last Admin Dose Admin Heparin Sodium (Porcine) 4,000 units PRN PRN IV 06/07/24 09:00 Hydralazine HCl 100 mg Q8HR PO 06/07/24 14:00 07/03/24 21:14 100 MG Amlodipine Besylate 10 mg DAILY PO 06/10/24 10:00 07/03/24 09:17 10 MG Enoxaparin Sodium 40 mg DAILY SC 06/10/24 10:00 UNV Enoxaparin Sodium 40 mg DAILY SC 06/17/24 10:00 UNV Epoetin Calin-epbx 10,000 unit TUTHSA SC 06/17/24 12:00 Hold 06/28/24 08:25 10,000 UNIT Sodium Chloride 10 ml QSHIFT@10,22 IV 06/17/24 22:00 07/03/24 21:14 10 ML Acetaminophen 650 mg Q6HP PRN GT 06/20/24 11:30 06/28/24 17:05 650 MG Hydralazine HCl 10 mg Q4HP PRN IV 06/24/24 16:45 07/03/24 18:15 10 MG Omeprazole 20 mg DAILY GT 06/26/24 10:00 07/03/24 09:19 20 MG Albuterol 2.5 mg Q6HPRN PRN NEB 06/28/24 11:30 07/02/24 00:28 2.5 MG Lactulose 30 ml [id number] PRN PEG 07/01/24 10:15 Metoprolol Tartrate 50 mg BID PO 07/01/24 22:00 07/03/24 21:14 50 MG Fentanyl 25 mcg Q72H TD 07/01/24 17:30 07/01/24 18:01 25 MCG Enteral Nutritional Formula 1,000 ml 60ML/HR GT 07/02/24 11:00 07/03/24 21:35 1,000 ML Clonidine HCl 0.2 mg BID PO 07/03/24 22:00 07/03/24 21:13 0.2 MG Physical Exam: General: Intubated, not sedated, awake, follows simple commands. Neck: Supple. No masses. HEENT: PERRL. Normal lids and conjunctiva. Moist mucous membranes. - Oropharynx intubated. Heart: Regular rhythm, normal rate. No murmur. No lower extremity edema. Lungs: On ventilator support. Decreased breath sounds bilaterally. - No wheezes. No crackles. Abdomen: Soft. Non-tender. Non-distended. No masses or abdominal hernia. Msk: Right above-knee amputation. Partial left foot amputation. - Normal strength and tone in remaining limbs. Skin: Warm and dry, no rashes. Chronic wounds over ischial tuberosities. Neuro: Alert. No facial droop or slurred speech. Extra-ocular movements intact. - Unable to assess sensation fully. Psych: Unable to assess mood and affect fully. - Oriented to person, place, time, and situation. laboratory and microbiology Laboratory Tests 07/03/24 04:49 Test 07/03/24 04:49 Range/Units Serum Glucose 102 74-106 mg/dL Problem List/Assessment/Plan Problems(with codes): (1) Transaminitis (2) Anemia (3) Metabolic encephalopathy (4) Pneumonia (5) Altered mental status (6) Sepsis (7) Pleural effusion (8) Respiratory insufficiency (9) Urinary tract infection (10) Sinus tachycardia Problem List/Assessment/Plan ASSESSMENT AND PLAN: ID Problem List: - Altered mental status - MDR Acinetobacter and Pseudomonas respiratory infections - MRSA colonization - Fevers (resolving) - Right above-knee amputation - Partial left foot amputation - Congestive heart failure - Chronic obstructive pulmonary disease - Dyslipidemia - Hypertension - Cerebrovascular accident - Liver disease - Myocardial infarction Assessment This is a 69 y.o. male with a past medical history of right above-knee amputation, partial left foot amputation, CHF, COPD, dyslipidemia, hypertension, CVA, liver disease, and [place], who presents with altered mental status. Patient was noted by family to have progressive confusion over the last three days, culminating in unresponsiveness. On arrival to the ED, the patient was unresponsive and was emergently intubated for airway protection. He was unable to provide history due to altered mental status and was admitted to the ICU for prolonged therapy. He underwent tracheostomy and PEG placement on June 13. Microbiology: - On May 28, sputum culture grew MRSA. - On May 30, bronchial culture grew MRSA. - On June 10, tracheal/bronchial washing grew MDR Acinetobacter and Pseudomonas. - Blood cultures grew Staphylococcus capitis and Staphylococcus auricularis on June 02. - Blood cultures grew Staphylococcus epidermidis and Staphylococcus hominis on June 09. - Blood cultures on June 24 showed no growth. - Catheter tip cultures grew MRSA, MDR Acinetobacter, and Enterococcus. Antibiotic history: - Vancomycin from May 28 to June 14. - Piperacillin-tazobactam (Zosyn) from May 28 to May 29. - Ampicillin from May 29 to . - Ceftriaxone from May 29 to . - Linezolid from May 31 to . - Meropenem from May 31 to . Currently, the patient is on linezolid and meropenem. Fevers have resolved since June 27, and recent cultures remain negative. 07/03: Patient has completed 7 days therapy of meropenum and lizasoild empirically for coverage of all possible bacteremia in the setting of catheter site colonization Plan: - Discontinue linezolid and meropenem as the patient has completed adequate therapy and cultures are negative. - Plan to replace catheter line for dialysis once blood cultures remain clear for at least 72 hours. - Monitor for signs of infection. - Continue supportive care. - Isolation Precautions: Standard. Assessment and plan were discussed with the patient as written above. Plan is subject to change pending incorporation of new incoming information/diagnostics. Updates may be added as addendum at the bottom (OR TOP) of this note. Thank you for interesting consult. ID will continue to follow. Please contact Infectious Disease for any questions or concerns. Plan discussed with: Other Dietary Evaluation Review Comments: 1) If GI is assessible consider Jevity 1.2 @ 60 ml/hr x24 hrs goal rate as tolerated 2) If pt remains NPO >7 days consider TPN to meet at least 75% of estimated needs 3) Advance pt diet when medically feasible to a Cardiac/Renal Specific K2,2gmNA,low phos,60g Pro diet modified per CFO recommendations 4) Continue current plan of care Expected Outcomes/Goals: 1) Pt to receive adequate nutrition support 2) Pt diet to advance CC Plasma Assessment Blood Product Administration S: [id number] SURINDER CHOWDHURY MD Jul 03, 2024 22:16
[2024-07-04] VITALS (43 sets, daily range): BP systolic 97–188; BP diastolic 57–88; PULSE 60–86; RESP 16–22; TEMP 97.3–98.5; O2SAT 88–100
[2024-07-04 05:16] LABS: Anion Gap 4 (5-15); Aspartate Aminotransferase 17 U/L (13-40); BUN/Creatinine Ratio 9.5 (10.0-20.0); Calcium 8.8 mg/dL (8.7-10.4); Carbon Dioxide 30 mmol/L (20-31); Chloride 105 mmol/L (98-107); Glucose 88 mg/dL (74-106); Magnesium 1.9 mg/dL (1.6-2.6); Potassium 4.5 mmol/L (3.5-5.1); Sodium 139 mmol/L (136-145)
[2024-07-04 05:17] LABS: Total Protein 5.8 g/dL (5.7-8.2)
[2024-07-04 05:29] LABS: Alanine Aminotransferase < 9 U/L (7-40); Albumin 2.3 g/dL (3.2-4.8); Alkaline Phosphatase 119 U/L (46-116); Bilirubin, Total < 0.2 mg/dL (0.2-1.0); Blood Urea Nitrogen 35 mg/dL (9-23)
[2024-07-04 05:32] LABS: Hemoglobin 8.2 g/dL (13.5-17.5); Mean Corpuscular Hemoglobin 32.3 pg (28.0-32.0); Mean Corpuscular Hgb Conc. 32.9 g/dL (32.0-36.0); Platelet Count (auto) 104 10^3/uL (140-450); Red Blood Cells 2.55 10^6/uL (4.5-5.90); White Blood Cell 5.8 10^3/uL (4.4-10.8)
[2024-07-04 05:35] LABS: Band Neutrophils % (manual) 0; Basophils % (manual) 0 (0.0-2.0); Blast Cells 0; Metamyelocytes % 0; Myelocytes % 0; Promyelocytes % 0; Reactive Lymphocytes 0
[2024-07-04 05:58] LABS: Eosinophils % (manual) 3 (0-7); Lymphocytes % (manual) 23 (10.0-50.0); Monocytes % (manual) 8 (0-12); Platelet Estimate Decreased; Smudge Cells 1 /100 WBC
[2024-07-04] MEDS: SODIUM CHL 0.9% 1000 ML BAG XX ONE (07:00)
[2024-07-04] MEDS: HEPARIN SODIUM (PORCINE) 5000 UNITS/ML 1ML VIAL ONE (09:57)
[2024-07-04] MEDS: fentaNYL CITRATE 100 MCG/2 ML VL ONE (09:57)
[2024-07-04] MEDS: MIDAZOLAM HCL 2MG/2ML 2ml VIAL (1mg/ml) ONE (09:57)
[2024-07-04] MEDS: LIDOCAINE 2%HCL (LOCAL ANESTH.) INJ 20ML MDV ONE (09:58)
[2024-07-04] MEDS: ceFAZolin 1GM/50ML 50 ML IV ONE (10:13)
--- NOTE | 2024-07-04 11:22 | DVH ---
XY Insertion of Venous Cath, HISTORY: HD CATH PROCEDURE: Informed consent was obtained. The patient was placed supine on the interventional table. 1 gram of Ancef was given. A limited localization ultrasound of the right neck base was obtained. The right neck base and upper chest were prepped with chlorhexidine which was allowed to dry and draped in the usual sterile fashion. Time out was performed. IV sedation was administered. The skin and the soft tissues were infiltrated with 1% Lidocaine . With real-time ultrasound guidance, the internal ju gular vein was accessed with a micropuncture kit, and an image documenting patency was recorded to BILL LOPEZ. A subcutaneous tunneled tract was created from the right upper chest to the venotomy site. A 14.5 Bangl[place]hi Oracle Path, 23 cm long hemodialysis catheter was advanced through the tunneled tract. Fluoroscopy was used to advance a guidewire through the internal jugular vein into the inferior vena cava. Following serial dilatation, a 15 Bangladeshi peel-away sheath was introduced, though which was adva nced the catheter into the right atrium. The catheter tip position was confirmed with fluoroscopy. Th ere was satisfactory flow in both lumens. The catheter lumens were flushed with saline and heparin wa s left indwelling in the catheter. A post-procedure image of the chest was obtained. The neck incisio n site was closed with a Dermabond and dressed sterilely. The catheter was sutured at the skin surfac e and exit site also dressed sterilely. No immediate complication was identified. DAP 102.69 FLUOROSCOPY TIME: 1.3 minutes. SEDATION: Dr. Mary Beth Mulligan was personally responsible for the administration of moderate sedation during the procedure performed, including the use of an independent trained observer who had no other duties during the procedure. The drugs utilized were IV fentanyl and versed (see nursing log for details). The total time of supervision by the attending physician was approximately 45 minutes. FINDINGS: Widely patent but compressed right IJV. Post procedure image demonstrates smooth course of the hemodialysis catheter with the tip in the right atrium. IMPRESSION: Successful placement of 14.5 Bangl[place]hi Oracle Path, 23 cm long hemodialysis catheter through right lab intern al jugular vein. Plan: Please contact IR for removal when no longer needed.
--- NOTE | 2024-07-04 14:14 | DVHPN2 ---
Progress Note Date Seen: Jul 04, 2024 Has the PT tested + for MRSA If YES, has PT been informed?: Yes Medical Necessity Reason Pt with a Central, PICC or Fol: Yes The following are medically ne: Central Line, Rubio Catheter Reason for rubio catheter: Strict I&O Subjective Review of Systems: RESPIRATORY:Abnormal Other Systems: Patient seen and examined by myself on follow-up today, patient remained trached on the ventilator Patient examined hemodialysis, blood pressure stable Objective vital signs Vital Sign Date Time Temp Pulse Resp B/P (MAP) Pulse Ox O2 Delivery O2 Flow Rate FiO2 07/04/24 11:56 17 99 T-piece 6 28 28 07/04/24 11:33 76 188/88 07/04/24 08:05 98.5 98.5 Total Intake and Output 07/03/24 07/03/24 07/04/24 15:00 23:00 07:00 Intake Total 317 ml 434 ml 315 ml Output Total 275 ml 350 ml Balance 317 ml 159 ml -35 ml medications Current Medications Medications Dose Ordered Sig/[place] Route Start Time Stop Time Status Last Admin Dose Admin Heparin Sodium (Porcine) 4,000 units PRN PRN IV 06/07/24 09:00 Hydralazine HCl 100 mg Q8HR PO 06/07/24 14:00 07/04/24 05:50 100 MG Amlodipine Besylate 10 mg DAILY PO 06/10/24 10:00 07/04/24 11:33 10 MG Enoxaparin Sodium 40 mg DAILY SC 06/10/24 10:00 UNV Enoxaparin Sodium 40 mg DAILY SC 06/17/24 10:00 UNV Epoetin Calin-epbx 10,000 unit TUTHSA SC 06/17/24 12:00 Hold 06/28/24 08:25 10,000 UNIT Sodium Chloride 10 ml QSHIFT@10,22 IV 06/17/24 22:00 07/04/24 11:59 10 ML Acetaminophen 650 mg Q6HP PRN GT 06/20/24 11:30 06/28/24 17:05 650 MG Hydralazine HCl 10 mg Q4HP PRN IV 06/24/24 16:45 07/04/24 01:36 10 MG Omeprazole 20 mg DAILY GT 06/26/24 10:00 07/04/24 11:31 20 MG Albuterol 2.5 mg Q6HPRN PRN NEB 06/28/24 11:30 07/02/24 00:28 2.5 MG Lactulose 30 ml [id number] PRN PEG 07/01/24 10:15 Metoprolol Tartrate 50 mg BID PO 07/01/24 22:00 07/04/24 11:33 50 MG Fentanyl 25 mcg Q72H TD 07/01/24 17:30 07/01/24 18:01 25 MCG Enteral Nutritional Formula 1,000 ml 60ML/HR GT 07/02/24 11:00 07/03/24 21:35 1,000 ML Clonidine HCl 0.2 mg BID PO 07/03/24 22:00 07/04/24 11:32 0.2 MG Examination: LUNGS:Normal, CVS:Normal, MSK:Normal laboratory and microbiology Laboratory Tests 07/04/24 04:36 Test 07/04/24 04:36 Range/Units Serum Glucose 88 74-106 mg/dL Microbiology Date/Time Source Procedure Growth Status 06/28/24 15:27 Blood Blood Culture - Final NO GROWTH AFTER 5 DAYS OF INCUBATION. Complete 06/25/24 08:20 Catheter Site Aerobic Culture - Preliminary Methicillin Resistant S.aureus Acinetobacter baumannii MDRO Enterococcus faecalis Resulted 06/11/24 16:06 Bronchial Washings Gram Stain - Final Complete 06/11/24 16:06 Respiratory Culture - Final Acinetobacter baumannii Pseudomonas aeruginosa Complete 05/30/24 11:45 Pleural Fluid Gram Stain - Final Complete 05/30/24 11:45 Pleural Fluid Body Fluid Culture - Final Complete 05/28/24 22:36 Urine - Catheterized Urine Culture - Final Enterobacter cloacae Escherichia coli Enterococcus faecalis - VRE Complete Problem List/Assessment/Plan Problem List/Assessment/Plan Acute kidney injury superimposed on chronic kidney disease stage 4, oliguric requiring initiation of hemodialysis D Acute respiratory failure, patient is trached Anemia suspected due to low blood loss s/p PRBC Septic shock Hypernatremia Hypokalemia Peripheral arterial disease Right above knee amputation Metabolic acidosis Chronic urinary retention MRSA bacteremia Recommendations Continuous UF 2 L as tolerated Epogen 46560 IV post hemodialysis Rubio catheter Strict I&Os KCL replacement IV pressor for blood pressure support IV antibiotic per ID consult We will continue to follow Plan discussed with: Other (Nurse) My Orders My Orders Orders - DAVID TORRES MD Procedure Category Date Status Time Hemodialysis Orders ORDERS 07/04/24 Transmitted 07:00 Dialysis Nursing SUZAN 07/04/24 In Process Message 07:00 Document Fluid Input SUZAN 07/04/24 In Process And Outpu 07:00 Epoetin Calin-Epbx PHA 07/04/24 In Process (Retacrit) 21:00 Dietary Evaluation Review Comments: 1) If GI is assessible consider Jevity 1.2 @ 60 ml/hr x24 hrs goal rate as tolerated 2) If pt remains NPO >7 days consider TPN to meet at least 75% of estimated needs 3) Advance pt diet when medically feasible to a Cardiac/Renal Specific K2,2gmNA,low phos,60g Pro diet modified per SECURITY COORDINATOR recommendations 4) Continue current plan of care Expected Outcomes/Goals: 1) Pt to receive adequate nutrition support 2) Pt diet to advance CC Plasma Assessment Blood Product Administration S: [id number] DAVID TORRES MD Jul 04, 2024 14:14
--- NOTE | 2024-07-04 18:15 | DVHPNRES ---
Progress Note Date Seen: Jul 04, 2024 Resident Creating Document: THA CRISOSTOMO RESIDENT Has the PT tested + for MRSA If YES, has PT been informed?: Yes Medical Necessity Reason Pt with a Central, PICC or Fol: Yes The following are medically ne: Rubio Catheter Reason for rubio catheter: Strict I&O Subjective Review of Systems This is a 65-year-old male with past medical history of CHF, CKD, COPD, dyslipidemia, hypertension, CVA brought to the hospital with shortness of breaths and at the level of consciousness. Admitted and intubated on 05/28, extubated on 06/09 but reintubated on 06/10. Epigastric performed on 06/13, PEG tube placed on 06/15. 07/01 - Patient seen and examined at bedside. Overnight no events, patient made 150 cc of urine in the morning and 125 cc in the night. Multiple bowel movements 500 cc on 06/30, 250 cc on the night of 07/01 and 200 on the morning of 07/01. Lactulose changed to p.r.n.. Patient is intubated and mechanically ventilated. Patient is satting 97% on trach collar via 6 L oxygen supplementation for the past 24 hours. He is not on pressor support. On fentanyl 20 mcg. Increase metoprolol to 50 mg b.i.d. and started clonidine 0.1 mg b.i.d.. Started fentanyl patch 25 mcg. IV fentanyl will be discontinued after overlapping her 4-5 hours with fentanyl patch. 07/02 - overnight patient made 100 mL of urine. 50 mL of output was drain from colostomy bag. Otherwise no events. Patient seen and examined at bedside. He underwent dialysis this morning and 2.5 L were drained. Chest x-ray reviewed shows worsening left-sided infiltrate. Patient is satting 98% on 3 color with 6 L oxygen supplementation. 07/03 - overnight colostomy bag was leaking so it was changed. Patient had 50 mL urine output in the machinist 2nd shift, 115 mL during the of the of 07/02. Colostomy bag was drained with 50 mL of contents. Patient is still hypotensive systolic ranging in 150s to 160s therefore clonidine increased to 0.2 mg b.i.d.. Creatinine trending down to 3.2. Tunnel catheter consent obtained. IR consulted. NPO starting morning. Final blood culture 06/28 shows no growth. IV antibiotics discontinued. 07/04 - overnight patient had 200 mL of colostomy output. Urine output 125 in the day of 07/03 and 150 in the machinist 2nd shift. Tunneled catheter placed to the right upper chest. DC left IJ catheter once dialysis session completed. Undergoing dialysis session today. Objective vital signs Vital Sign Date Time Temp Pulse Resp B/P (MAP) Pulse Ox O2 Delivery O2 Flow Rate FiO2 07/04/24 17:54 158/65 07/04/24 12:33 60 07/04/24 11:56 17 99 T-piece 6 28 28 07/04/24 08:05 98.5 98.5 Total Intake and Output 07/03/24 07/03/24 07/04/24 15:00 23:00 07:00 Intake Total 317 ml 434 ml 315 ml Output Total 275 ml 350 ml Balance 317 ml 159 ml -35 ml medications Current Medications Medications Dose Ordered Sig/[place] Route Start Time Stop Time Status Last Admin Dose Admin Heparin Sodium (Porcine) 4,000 units PRN PRN IV 06/07/24 09:00 Hydralazine HCl 100 mg Q8HR PO 06/07/24 14:00 07/04/24 16:32 100 MG Amlodipine Besylate 10 mg DAILY PO 06/10/24 10:00 07/04/24 11:33 10 MG Enoxaparin Sodium 40 mg DAILY SC 06/10/24 10:00 UNV Enoxaparin Sodium 40 mg DAILY SC 06/17/24 10:00 UNV Epoetin Morena-epbx 10,000 unit TUTHSA SC 06/17/24 12:00 Hold 06/28/24 08:25 10,000 UNIT Sodium Chloride 10 ml QSHIFT@10,22 IV 06/17/24 22:00 07/04/24 11:59 10 ML Acetaminophen 650 mg Q6HP PRN GT 06/20/24 11:30 06/28/24 17:05 650 MG Hydralazine HCl 10 mg Q4HP PRN IV 06/24/24 16:45 07/04/24 01:36 10 MG Omeprazole 20 mg DAILY GT 06/26/24 10:00 07/04/24 11:31 20 MG Albuterol 2.5 mg Q6HPRN PRN NEB 06/28/24 11:30 07/02/24 00:28 2.5 MG Lactulose 30 ml [id number] PRN PEG 07/01/24 10:15 Metoprolol Tartrate 50 mg BID PO 07/01/24 22:00 07/04/24 11:33 50 MG Fentanyl 25 mcg Q72H TD 07/01/24 17:30 07/04/24 17:54 25 MCG Enteral Nutritional Formula 1,000 ml 60ML/HR GT 07/02/24 11:00 07/03/24 21:35 1,000 ML Clonidine HCl 0.2 mg BID PO 07/03/24 22:00 07/04/24 11:32 0.2 MG Examination Patient lying in bed, in no acute distress. RASS -2 General: afebrile, palor, mucosae are moist Cardiovascular: Regular S1 and S2. No murmurs, gallops or rubs. No JVD elevation. Bilateral pitting edema. Respiratory: Decreased but equal Bilateral air entry. Saturating 97% with 6 L supplementation via tracheostomy. Abdomen: Soft, nontender, nondistended, normoactive bowel sounds, no rebound tenderness, no organomegaly, no masses. Suprapubic catheter seen draining urine and colostomy bag seen draining 50 mL of brown reddish stool which is liquid in consistency. Peg tube in place. Genitourinary: Stage III sacral ulcer, skin non intact, draining pus and erythema noted. MSK/skin: Limb movement can not be assessed. Skin is dry and warm Neurological: Pupils are isocoric and reactive. laboratory and microbiology Laboratory Tests 07/04/24 04:36 Test 07/04/24 04:36 Range/Units Serum Glucose 88 74-106 mg/dL Microbiology Date/Time Source Procedure Growth Status 06/28/24 15:27 Blood Blood Culture - Final NO GROWTH AFTER 5 DAYS OF INCUBATION. Complete 06/25/24 08:20 Catheter Site Aerobic Culture - Preliminary Methicillin Resistant S.aureus Acinetobacter baumannii MDRO Enterococcus faecalis Resulted 06/11/24 16:06 Bronchial Washings Gram Stain - Final Complete 06/11/24 16:06 Respiratory Culture - Final Acinetobacter baumannii Pseudomonas aeruginosa Complete 05/30/24 11:45 Pleural Fluid Gram Stain - Final Complete 05/30/24 11:45 Pleural Fluid Body Fluid Culture - Final Complete 05/28/24 22:36 Urine - Catheterized Urine Culture - Final Enterobacter cloacae Escherichia coli Enterococcus faecalis - VRE Complete Labs and/or images reviewed: Labs reviewed by me, Image(s) reviewed by me Problem List/Assessment/Plan Problem List/Assessment/Plan NEURO: Acute metabolic encephalopathy likely due to sepsis History of seizure Patient is sedated and on mechanical ventilation, RASS scores -2 History of seizure during last admission(1 month back) used Keppra for 1 week Discontinued Keppra, on 06/16 EEG shows abnormal EEG recording consistent with the presence of a diffuse nonspecific encephalopathic state CARDIOVASCULAR: Hypertension Continue injection hydralazine 10 mg q.6 hours as needed Increase metoprolol to 50 mg b.i.d., Continue amlodipine 10 mg, hydralazine 100 mg t.i.d. Started clonidine 0.1 mg twice daily 07/01. Clonidine increased to 0.2 mg b.i.d. 07/03 Final blood culture 06/28 shows no growth PULMONARY: Acute Hypoxic Respiratory Failure likely due to pneumonia Septic shock likely due to pneumonia, improved Pneumonia likely due to MRSA and Enterobacter cloacae - Patient is sedated and mechanically ventilated with PEEP of 30% - CT scan shows [id number] left pleural effusion - MRSA nares screening, COVID-19 and flu are negative - Bronchoscopy performed on 06/11, there was some thin mucus secretion on bilateral side, bronchial lavage of right lower lobe and left lower lobe was performed, and the culture results shows Pseudomonas aeruginosa and Enterobacter baumanni, MDR; ID has been consulted - Sputum culture from bronchoalveolar lavage from 05/24/24 shows MRSA, Enterobacter cloacae - Blood culture from the 06/02/24 shows Staphylococcus epidermidis , Staph hominis - Repeat culture from 06/09/2024 shows no growth - Stopped IV linezolid, given for 11 days, discontinued meropenem, started on 06/08 and given for 12 days - discontinued N-acetylcysteine 07/01 - Breathing treatment q.6 hours p.r.n. -started fentanyl patch 25 mcg 07/01 GI - GI ppx: omeprazole 20mg daily via OG tube - Hepatitis-C virus antibody positive - Repeat stool occult blood test is negative - CT abdominopelvic without contrast shows no evidence of intra-abdominal hemorrhage - Tracheostomy is performed on 06/13 - PEG tube is placed on 06/15 - Bowel regimen: Lactulose 30 mL b.i.d. change to p.r.n. 07/01 : FROYLAN, possible VMN on ESRD requiring hemodialysis - Nephrology consulted, epoetin morena 50689 units SC post dialysis. Radiology for tunneled hemodialysis catheter when the blood culture negative for 72 hours - Stopped Bumix 1mg BID - creatinine increased to 3.91 from 3.64 - Homer catheter placed on left internal jugular, on 06/26, removed on 07/04 - tunneled catheter placed to the right upper chest 07/04 - hemodialysis completed 07/02 and 07/04 UTI, urinalysis shows UTI picture - Urine culture from 05/28/2024 shows Enterobacter, E coli, Enterococcus faecalis Status post right lower limb, AKA likely due to PAD Decubitus ulcer - There are multiple stage 3-4 sacral ulcers draining pus - position changing every 2 hours and dressing -started fentanyl patch 25 mcg 07/01 HEME Severe anemia, transfused 4 pack of red blood cells Thrombocytopenia - current HB is 8 ID: - Sputum culture from bronchoalveolar lavage from 05/24/24 shows MRSA, Enterobacter cloacae - Blood culture from the 06/02/24 shows Staphylococcus epidermidis , Staph hominis - Repeat culture from 06/09/2024 shows no growth - culture results from BAL from 06/11 shows Pseudomonas aeruginosa and Enterobacter baumanni, MDR - discontinued IV linezolid starting 06/28 and meropenem starting 06/25, discontinued in 07/03 - previously received vancomycin - catheter site culture 06/25 completed shows MRSA, Acinetobacter baumannii MDRO, Enterococcus faecalis. SKIN Possible keloid - There is a growth on the left shoulder, per son, lesion has been present for several years - Follow up on outpatient basis Metabolic: Hypernatremia, improved Hypokalemia, discontinued potassium supplementation given ESRD Hyperkalemia, improved Mild hyponatremia, monitoring Hypoglycemic episodes, improved Hypomagnesemia, supplemented LINES/DRAINS/ACCESS: ETT, intubated on 05/28/2024 and tracheostomy performed on 06/11, PEG tube placed on 06/15 IV access Left internal jugular CVC, placed on 06/26 and removed on 07/04 Right IJ hemodialysis catheter placed 07/04 Suprapubic catheter, changed on 06/02/2020 Dripps: Fentanyl patch 25 mg No pressor DIET: Jevity 1.2 john 60 mL/hour DVT prophylaxis Heparin 2000 units Disposition: group social worker consulted for transfer to the [facility] critical care time including review of charts, discussing case with patient's nurse, excluding procedures is 42 mins CODE STATUS: Full code Plan discussed with patient and his son over the phone call in which all questions have been answered. Case discussed with Dr. Ashby. Plan discussed with: Patient My Orders My Orders Orders - THA CRISOSTOMO Procedure Category Date Status Time Insertion Of Venous XY 07/04/24 Resulted Cath 10:26 Dietary Evaluation Review Comments: 1) If GI is assessible consider Jevity 1.2 @ 60 ml/hr x24 hrs goal rate as tolerated 2) If pt remains NPO >7 days consider TPN to meet at least 75% of estimated needs 3) Advance pt diet when medically feasible to a Cardiac/Renal Specific K2,2gmNA,low phos,60g Pro diet modified per MANAGER BUSINESS PROCESS recommendations 4) Continue current plan of care Expected Outcomes/Goals: 1) Pt to receive adequate nutrition support 2) Pt diet to advance CC Plasma Assessment Blood Product Administration S: [id number] Date of Service: Jul 04, 2024 Billing Provider: MARK ASHBY MD Common Visit Codes: 52582-[id number] CARE 30-74 MIN THA CRISOSTOMO Jul 04, 2024 18:15 MARK ASHBY MD Jul 05, 2024 00:08
[2024-07-04] MEDS: EPOETIN ALFA-EPBX 10,000 UNIT/1ML VIAL SC ONE (20:41)
--- NOTE | 2024-07-04 23:02 | DVHPN2 ---
Consult Progress Note Date Seen: Jul 04, 2024 Subjective Patient reports: Other (tolerated dialysis , got a new catheter in place yesterday in his right upper chest , a bit tachycardic , on 6 liters trach colar ) Objective vital signs Vital Sign Date Time Temp Pulse Resp B/P (MAP) Pulse Ox O2 Delivery O2 Flow Rate FiO2 07/04/24 21:42 75 131/70 07/04/24 20:00 17 91 T-piece 6 28 28 07/04/24 20:00 97.5 97.5 Total Intake and Output 07/03/24 07/03/24 07/04/24 15:00 23:00 07:00 Intake Total 317 ml 434 ml 315 ml Output Total 275 ml 350 ml Balance 317 ml 159 ml -35 ml medications Current Medications Medications Dose Ordered Sig/[place] Route Start Time Stop Time Status Last Admin Dose Admin Heparin Sodium (Porcine) 4,000 units PRN PRN IV 06/07/24 09:00 Hydralazine HCl 100 mg Q8HR PO 06/07/24 14:00 07/04/24 20:42 100 MG Amlodipine Besylate 10 mg DAILY PO 06/10/24 10:00 07/04/24 11:33 10 MG Enoxaparin Sodium 40 mg DAILY SC 06/10/24 10:00 UNV Enoxaparin Sodium 40 mg DAILY SC 06/17/24 10:00 UNV Epoetin Calin-epbx 10,000 unit TUTHSA SC 06/17/24 12:00 Hold 06/28/24 08:25 10,000 UNIT Sodium Chloride 10 ml QSHIFT@,22 IV 06/17/24 22:00 07/04/24 20:43 10 ML Acetaminophen 650 mg Q6HP PRN GT 06/20/24 11:30 06/28/24 17:05 650 MG Hydralazine HCl 10 mg Q4HP PRN IV 06/24/24 16:45 07/04/24 01:36 10 MG Omeprazole 20 mg DAILY GT 06/26/24 10:00 07/04/24 11:31 20 MG Albuterol 2.5 mg Q6HPRN PRN NEB 06/28/24 11:30 07/02/24 00:28 2.5 MG Lactulose 30 ml [id number] PRN PEG 07/01/24 10:15 Metoprolol Tartrate 50 mg BID PO 07/01/24 22:00 07/04/24 20:42 50 MG Fentanyl 25 mcg Q72H TD 07/01/24 17:30 07/04/24 17:54 25 MCG Enteral Nutritional Formula 1,000 ml 60ML/HR GT 07/02/24 11:00 07/03/24 21:35 1,000 ML Clonidine HCl 0.2 mg BID PO 07/03/24 22:00 07/04/24 20:41 0.2 MG Physical Exam: General: Intubated, not sedated, awake, follows simple commands. Neck: Supple. No masses. HEENT: PERRL. Normal lids and conjunctiva. Moist mucous membranes. - Oropharynx intubated. Heart: Regular rhythm, normal rate. No murmur. No lower extremity edema. Lungs: On ventilator support. Decreased breath sounds bilaterally. - No wheezes. No crackles. Abdomen: Soft. Non-tender. Non-distended. No masses or abdominal hernia. Msk: Right above-knee amputation. Partial left foot amputation. - Normal strength and tone in remaining limbs. Skin: Warm and dry, no rashes. Chronic wounds over ischial tuberosities. Neuro: Alert. No facial droop or slurred speech. Extra-ocular movements intact. - Unable to assess sensation fully. Psych: Unable to assess mood and affect fully. - Oriented to person, place, time, and situation. laboratory and microbiology Laboratory Tests 07/04/24 04:36 Test 07/04/24 04:36 Range/Units Serum Glucose 88 74-106 mg/dL Problem List/Assessment/Plan Problems(with codes): (1) Family history of cerebrovascular accident (CVA) (2) Transaminitis (3) Anemia (4) Metabolic encephalopathy (5) Pneumonia (6) Altered mental status (7) Sepsis (8) Respiratory insufficiency (9) Pleural effusion Problem List/Assessment/Plan ASSESSMENT AND PLAN: ID Problem List: - Altered mental status - MDR Acinetobacter and Pseudomonas respiratory infections - MRSA colonization - Fevers (resolving) - Right above-knee amputation - Partial left foot amputation - Congestive heart failure - Chronic obstructive pulmonary disease - Dyslipidemia - Hypertension - Cerebrovascular accident - Liver disease - Myocardial infarction Assessment This is a 69 y.o. male with a past medical history of right above-knee amputation, partial left foot amputation, CHF, COPD, dyslipidemia, hypertension, CVA, liver disease, and [place], who presents with altered mental status. Patient was noted by family to have progressive confusion over the last three days, culminating in unresponsiveness. On arrival to the ED, the patient was unresponsive and was emergently intubated for airway protection. He was unable to provide history due to altered mental status and was admitted to the ICU for prolonged therapy. He underwent tracheostomy and PEG placement on June 13. Microbiology: - On May 28, sputum culture grew MRSA. - On May 30, bronchial culture grew MRSA. - On June 10, tracheal/bronchial washing grew MDR Acinetobacter and Pseudomonas. - Blood cultures grew Staphylococcus capitis and Staphylococcus auricularis on June 02. - Blood cultures grew Staphylococcus epidermidis and Staphylococcus hominis on June 09. - Blood cultures on June 24 showed no growth. - Catheter tip cultures grew MRSA, MDR Acinetobacter, and Enterococcus. Antibiotic history: - Vancomycin from May 28 to June 14. - Piperacillin-tazobactam (Zosyn) from May 28 to May 29. - Ampicillin from May 29 to . - Ceftriaxone from May 29 to . - Linezolid from May 31 to . - Meropenem from May 31 to . Currently, the patient is on linezolid and meropenem. Fevers have resolved since June 27, and recent cultures remain negative. 07/03: Patient has completed 7 days therapy of meropenum and lizasoild empirically for coverage of all possible bacteremia in the setting of catheter site colonization Plan: - patient to be trasfered to a LTA[facility] , no signs of ongoing sepsis - Monitor off all antibiotics - Monitor for signs of infection. - Continue supportive care. - Isolation Precautions: Standard. Assessment and plan were discussed with the patient as written above. Plan is subject to change pending incorporation of new incoming information/diagnostics. Updates may be added as addendum at the bottom (OR TOP) of this note. Thank you for interesting consult. ID will continue to follow. Please contact Infectious Disease for any questions or concerns. Plan discussed with: Other Dietary Evaluation Review Comments: 1) If GI is assessible consider Jevity 1.2 @ 60 ml/hr x24 hrs goal rate as tolerated 2) If pt remains NPO >7 days consider TPN to meet at least 75% of estimated needs 3) Advance pt diet when medically feasible to a Cardiac/Renal Specific K2,2gmNA,low phos,60g Pro diet modified per SOLVENT PLANT TREATER recommendations 4) Continue current plan of care Expected Outcomes/Goals: 1) Pt to receive adequate nutrition support 2) Pt diet to advance CC Plasma Assessment Blood Product Administration S: [id number] SURINDER CHOWDHURY MD Jul 04, 2024 23:02
[2024-07-05] VITALS (44 sets, daily range): BP systolic 130–171; BP diastolic 64–85; PULSE 66–89; RESP 14–29; TEMP 97.8–98.7; O2SAT 88–100
[2024-07-05 06:07] LABS: Mean Corpuscular Volume 98.1 fL (80.0-100.0); Platelet Count (auto) 91 10^3/uL (140-450); Red Blood Cells 2.42 10^6/uL (4.5-5.90); White Blood Cell 5.8 10^3/uL (4.4-10.8)
[2024-07-05 06:15] LABS: Hematocrit 23.7 % (41.0-53.0); Hemoglobin 7.9 g/dL (13.5-17.5); Mean Corpuscular Hemoglobin 32.6 pg (28.0-32.0); Mean Corpuscular Hgb Conc. 33.2 g/dL (32.0-36.0)
[2024-07-05 06:17] LABS: Red Cell Distribution Width 20.3 % (11.8-14.3)
[2024-07-05 06:19] LABS: Band Neutrophils % (manual) 0; Basophils % (manual) 0 (0.0-2.0); Blast Cells 0; Metamyelocytes % 0; Myelocytes % 0; Promyelocytes % 0; Reactive Lymphocytes 0
[2024-07-05 06:42] LABS: Alkaline Phosphatase 111 U/L (46-116); Anion Gap 6 (5-15); Aspartate Aminotransferase 19 U/L (13-40); BUN/Creatinine Ratio 8.8 (10.0-20.0); Blood Urea Nitrogen 23 mg/dL (9-23); Carbon Dioxide 31 mmol/L (20-31); Chloride 104 mmol/L (98-107); Glucose 89 mg/dL (74-106); Magnesium 1.9 mg/dL (1.6-2.6); Potassium 4.1 mmol/L (3.5-5.1); Sodium 141 mmol/L (136-145)
[2024-07-05 06:43] LABS: Total Protein 5.7 g/dL (5.7-8.2)
[2024-07-05 06:50] LABS: Alanine Aminotransferase < 9 U/L (7-40); Albumin 2.3 g/dL (3.2-4.8); Bilirubin, Total < 0.2 mg/dL (0.2-1.0); Calcium 8.4 mg/dL (8.7-10.4)
[2024-07-05 08:48] LABS: Eosinophils % (manual) 2 (0-7); Lymphocytes % (manual) 12 (10.0-50.0); Monocytes % (manual) 4 (0-12)
[2024-07-05 08:49] LABS: Platelet Estimate Decreased
--- NOTE | 2024-07-05 09:25 | DVHPN2 ---
Progress Note Date Seen: Jul 05, 2024 Has the PT tested + for MRSA If YES, has PT been informed?: Yes Medical Necessity Reason Pt with a Central, PICC or Fol: Yes The following are medically ne: Rubio Catheter Reason for rubio catheter: Strict I&O Subjective Patient reports: No new complaints Review of Systems: RESPIRATORY:Abnormal Other Systems: Patient seen and examined by myself today in follow-up patient remained trached on the vent Objective vital signs Vital Sign Date Time Temp Pulse Resp B/P (MAP) Pulse Ox O2 Delivery O2 Flow Rate FiO2 07/05/24 08:21 84 07/05/24 08:04 157/81 07/05/24 08:00 21 95 07/05/24 08:00 98.7 98.7 07/05/24 08:00 T-piece 6 28 28 Total Intake and Output 07/04/24 07/04/24 07/05/24 15:00 23:00 07:00 Intake Total 200 ml 520 ml Output Total 2650 ml 100 ml Balance -2450 ml 420 ml medications Current Medications Medications Dose Ordered Sig/[place] Route Start Time Stop Time Status Last Admin Dose Admin Heparin Sodium (Porcine) 4,000 units PRN PRN IV 06/07/24 09:00 Hydralazine HCl 100 mg Q8HR PO 06/07/24 14:00 07/05/24 06:34 100 MG Amlodipine Besylate 10 mg DAILY PO 06/10/24 10:00 07/05/24 08:03 10 MG Enoxaparin Sodium 40 mg DAILY SC 06/10/24 10:00 UNV Enoxaparin Sodium 40 mg DAILY SC 06/17/24 10:00 UNV Epoetin Calin-epbx 10,000 unit TUTHSA SC 06/17/24 12:00 Hold 06/28/24 08:25 10,000 UNIT Sodium Chloride 10 ml QSHIFT@10,22 IV 06/17/24 22:00 07/05/24 08:05 10 ML Acetaminophen 650 mg Q6HP PRN GT 06/20/24 11:30 06/28/24 17:05 650 MG Hydralazine HCl 10 mg Q4HP PRN IV 06/24/24 16:45 07/04/24 01:36 10 MG Omeprazole 20 mg DAILY GT 06/26/24 10:00 07/05/24 08:02 20 MG Albuterol 2.5 mg Q6HPRN PRN NEB 06/28/24 11:30 07/02/24 00:28 2.5 MG Lactulose 30 ml [id number] PRN PEG 07/01/24 10:15 Metoprolol Tartrate 50 mg BID PO 07/01/24 22:00 07/05/24 08:04 50 MG Fentanyl 25 mcg Q72H TD 07/01/24 17:30 07/04/24 17:54 25 MCG Enteral Nutritional Formula 1,000 ml 60ML/HR GT 07/02/24 11:00 07/03/24 21:35 1,000 ML Clonidine HCl 0.2 mg BID PO 07/03/24 22:00 07/05/24 08:03 0.2 MG Examination: LUNGS:Normal, CVS:Normal, MSK:Normal laboratory and microbiology Laboratory Tests 07/05/24 05:37 Test 07/05/24 05:37 Range/Units Serum Glucose 89 74-106 mg/dL Microbiology Date/Time Source Procedure Growth Status 06/28/24 15:27 Blood Blood Culture - Final NO GROWTH AFTER 5 DAYS OF INCUBATION. Complete 06/25/24 08:20 Catheter Site Aerobic Culture - Preliminary Methicillin Resistant S.aureus Acinetobacter baumannii MDRO Enterococcus faecalis Resulted 06/11/24 16:06 Bronchial Washings Gram Stain - Final Complete 06/11/24 16:06 Respiratory Culture - Final Acinetobacter baumannii Pseudomonas aeruginosa Complete 05/30/24 11:45 Pleural Fluid Gram Stain - Final Complete 05/30/24 11:45 Pleural Fluid Body Fluid Culture - Final Complete 05/28/24 22:36 Urine - Catheterized Urine Culture - Final Enterobacter cloacae Escherichia coli Enterococcus faecalis - VRE Complete Problem List/Assessment/Plan Problem List/Assessment/Plan Acute kidney injury superimposed on chronic kidney disease stage 4, oliguric requiring initiation of hemodialysis D Acute respiratory failure, patient is trached Anemia suspected due to low blood loss s/p PRBC Septic shock Hypernatremia Hypokalemia Peripheral arterial disease Right above knee amputation Metabolic acidosis Chronic urinary retention MRSA bacteremia Recommendations Next hemodialysis 07/07 Epogen 32834 IV post hemodialysis Rubio catheter Strict I&Os KCL replacement IV pressor for blood pressure support IV antibiotic per ID consult We will continue to follow Plan discussed with: Other (Nurse) Dietary Evaluation Review Comments: 1) If GI is assessible consider Jevity 1.2 @ 60 ml/hr x24 hrs goal rate as tolerated 2) If pt remains NPO >7 days consider TPN to meet at least 75% of estimated needs 3) Advance pt diet when medically feasible to a Cardiac/Renal Specific K2,2gmNA,low phos,60g Pro diet modified per SPRAY DRY OPERATOR recommendations 4) Continue current plan of care Expected Outcomes/Goals: 1) Pt to receive adequate nutrition support 2) Pt diet to advance CC Plasma Assessment Blood Product Administration S: [id number] DAVID TORRES MD Jul 05, 2024 09:25
[2024-07-05] MEDS: MIDAZOLAM HCL 2MG/2ML 2ml VIAL (1mg/ml) IM ONE (09:45)
[2024-07-05] MEDS: diphenhdrAMINE HCL 50 MG/1 ML VL IM ONE (09:45)
[2024-07-05] MEDS: fentaNYL CITRATE 100 MCG/2 ML VL IM ONE (09:45)
--- NOTE | 2024-07-05 09:55 | DVHPN2 ---
Subjective The patient seen and examined at bedside. No change overnight. Reviewed: Care Plan, H&P, Labs, Medications, Previous Orders, Radiology, Other Changes from previous H/P or p: No Changes General: Per HPI Objective Vitals Vital Signs Date Time Temp Pulse Resp B/P (MAP) Pulse Ox O2 Delivery O2 Flow Rate FiO2 07/05/24 09:40 96 Trach Collar 6.0 07/05/24 09:40 28 28 07/05/24 08:21 84 07/05/24 08:04 157/81 07/05/24 08:00 21 07/05/24 08:00 98.7 98.7 Intake/Output Intake and Output 07/05/24 07:00 Intake Total 720 ml Output Total 2750 ml Balance -2030 ml Intake Oral 0 ml Tube Feeding 600 ml Other 120 ml Output Urine Total 200 ml Stool Total 50 ml Other 2500 ml General Appearance: Other (Sedated) HEENT: Atraumatic Lungs: Other (Few crackles bilateral lungs) Cardiovascular: Regular rate Abdomen: Normal bowel sounds, Soft Extremities: Other (Some bilateral lower extremity edema) Medications Current Medications Medications Dose Ordered Sig/[place] Route Start Time Stop Time Status Last Admin Dose Admin Heparin Sodium (Porcine) 4,000 units PRN PRN IV 06/07/24 09:00 Hydralazine HCl 100 mg Q8HR PO 06/07/24 14:00 07/05/24 06:34 100 MG Amlodipine Besylate 10 mg DAILY PO 06/10/24 10:00 07/05/24 08:03 10 MG Enoxaparin Sodium 40 mg DAILY SC 06/10/24 10:00 UNV Enoxaparin Sodium 40 mg DAILY SC 06/17/24 10:00 UNV Epoetin Morena-epbx 10,000 unit TUTHSA SC 06/17/24 12:00 Hold 06/28/24 08:25 10,000 UNIT Sodium Chloride 10 ml QSHIFT@10,22 IV 06/17/24 22:00 07/05/24 08:05 10 ML Acetaminophen 650 mg Q6HP PRN GT 06/20/24 11:30 06/28/24 17:05 650 MG Hydralazine HCl 10 mg Q4HP PRN IV 06/24/24 16:45 07/04/24 01:36 10 MG Omeprazole 20 mg DAILY GT 06/26/24 10:00 07/05/24 08:02 20 MG Albuterol 2.5 mg Q6HPRN PRN NEB 06/28/24 11:30 07/02/24 00:28 2.5 MG Lactulose 30 ml [id number] PRN PEG 07/01/24 10:15 Metoprolol Tartrate 50 mg BID PO 07/01/24 22:00 07/05/24 08:04 50 MG Fentanyl 25 mcg Q72H TD 07/01/24 17:30 07/04/24 17:54 25 MCG Enteral Nutritional Formula 1,000 ml 60ML/HR GT 07/02/24 11:00 07/03/24 21:35 1,000 ML Clonidine HCl 0.2 mg BID PO 07/03/24 22:00 07/05/24 08:03 0.2 MG Laboratory Results Laboratory Tests 07/05/24 05:37 Chemistry Test 07/05/24 05:37 Albumin 2.3 g/dL (3.2-4.8) L Calcium Level 8.4 mg/dL (8.7-10.4) L Magnesium Level 1.9 mg/dL (1.6-2.6) Total Protein 5.7 g/dL (5.7-8.2) LFT Test 07/05/24 05:37 Alanine Aminotransferase (ALT) < 9 U/L (7-40) Alkaline Phosphatase 111 U/L (46-116) Aspartate Amino Transferase (AST) 19 U/L (13-40) Total Bilirubin < 0.2 mg/dL (0.2-1.0) L Urinalysis Test 05/28/24 22:36 05/30/24 04:30 Urine Color Dark-brown (Yellow) Urine Clarity Ex.turbid (Clear) Urine pH 6.0 (5.0-9.0) Urine Specific [place] 1.017 (1.001-1.035) Urine Protein 2+ (Negative) H Urine Ketones Trace (Negative) Urine Blood 1+ /uL (Negative) H Urine Nitrite Negative (Negative) Urine Bilirubin Negative (Negative) Urine Urobilinogen Normal mg/dL (Negative) Urine Leukocyte Esterase 3+ /uL (Negative) Urine RBC 56 /hpf (0 - 3) Urine WBC 3664 /hpf (0 - 3) Urine WBC Clumps Present /hpf (None Seen) Urine Squamous Epithelial Cells Many /hpf (<5) Urine Bacteria Mod /hpf (None Seen) H Urine Glucose Normal mg/dL (Normal) Urine Creatinine 33.57 mg/dL (30.0-125.0) Urine Sodium 85 mmol/L (40-220) Microbiology Microbiology Date/Time Source Procedure Growth Status 06/28/24 15:27 Blood Blood Culture - Final NO GROWTH AFTER 5 DAYS OF INCUBATION. Complete 06/25/24 08:20 Catheter Site Aerobic Culture - Preliminary Methicillin Resistant S.aureus Acinetobacter baumannii MDRO Enterococcus faecalis Resulted 06/11/24 16:06 Bronchial Washings Gram Stain - Final Complete 06/11/24 16:06 Respiratory Culture - Final Acinetobacter baumannii Pseudomonas aeruginosa Complete 05/30/24 11:45 Pleural Fluid Gram Stain - Final Complete 05/30/24 11:45 Pleural Fluid Body Fluid Culture - Final Complete 05/28/24 22:36 Urine - Catheterized Urine Culture - Final Enterobacter cloacae Escherichia coli Enterococcus faecalis - VRE Complete Labs and/or images reviewed: Labs reviewed by me Assessment/Plan Assessment/Plan NEURO: Acute metabolic encephalopathy likely due to sepsis History of seizure Patient is sedated and on mechanical ventilation, RASS scores -2 History of seizure during last admission(1 month back) used Keppra for 1 week Discontinued Keppra, on 06/16 EEG shows abnormal EEG recording consistent with the presence of a diffuse nonspecific encephalopathic state CARDIOVASCULAR: Hypertension Continue injection hydralazine 10 mg q.6 hours as needed Increase metoprolol to 50 mg b.i.d., Continue amlodipine 10 mg, hydralazine 100 mg t.i.d. Started clonidine 0.1 mg twice daily 07/01. Clonidine increased to 0.2 mg b.i.d. 07/03 Final blood culture 06/28 shows no growth PULMONARY: Acute Hypoxic Respiratory Failure likely due to pneumonia Septic shock likely due to pneumonia, improved Pneumonia likely due to MRSA and Enterobacter cloacae - Patient is sedated and mechanically ventilated with PEEP of 30% - CT scan shows [id number] left pleural effusion - MRSA nares screening, COVID-19 and flu are negative - Bronchoscopy performed on 06/11, there was some thin mucus secretion on bilateral side, bronchial lavage of right lower lobe and left lower lobe was performed, and the culture results shows Pseudomonas aeruginosa and Enterobacter baumanni, MDR; ID has been consulted - Sputum culture from bronchoalveolar lavage from 05/24/24 shows MRSA, Enterobacter cloacae - Blood culture from the 06/02/24 shows Staphylococcus epidermidis , Staph hominis - Repeat culture from 06/09/2024 shows no growth - Stopped IV linezolid, given for 11 days, discontinued meropenem, started on 06/08 and given for 12 days - discontinued N-acetylcysteine 07/01 - Breathing treatment q.6 hours p.r.n. -started fentanyl patch 25 mcg 07/01 GI - GI ppx: omeprazole 20mg daily via OG tube - Hepatitis-C virus antibody positive - Repeat stool occult blood test is negative - CT abdominopelvic without contrast shows no evidence of intra-abdominal hemorrhage - Tracheostomy is performed on 06/13 - PEG tube is placed on 06/15 - Bowel regimen: Lactulose 30 mL b.i.d. change to p.r.n. 07/01 : FROYLAN, possible VMN on ESRD requiring hemodialysis - Nephrology consulted, epoetin morena 24432 units SC post dialysis. Radiology for tunneled hemodialysis catheter when the blood culture negative for 72 hours - Stopped Bumix 1mg BID - creatinine increased to 3.91 from 3.64 - Homer catheter placed on left internal jugular, on 06/26, removed on 07/04 - tunneled catheter placed to the right upper chest 07/04 - hemodialysis completed 07/02 and 07/04 UTI, urinalysis shows UTI picture - Urine culture from 05/28/2024 shows Enterobacter, E coli, Enterococcus faecalis Status post right lower limb, AKA likely due to PAD Decubitus ulcer - There are multiple stage 3-4 sacral ulcers draining pus - position changing every 2 hours and dressing -started fentanyl patch 25 mcg 07/01 HEME Severe anemia, transfused 4 pack of red blood cells Thrombocytopenia - current HB is 8 ID: - Sputum culture from bronchoalveolar lavage from 05/24/24 shows MRSA, Enterobacter cloacae - Blood culture from the 06/02/24 shows Staphylococcus epidermidis , Staph hominis - Repeat culture from 06/09/2024 shows no growth - culture results from BAL from 06/11 shows Pseudomonas aeruginosa and Enterobacter baumanni, MDR - discontinued IV linezolid starting 06/28 and meropenem starting 06/25, discontinued in 07/03 - previously received vancomycin - catheter site culture 06/25 completed shows MRSA, Acinetobacter baumannii MDRO, Enterococcus faecalis. SKIN Possible keloid - There is a growth on the left shoulder, per son, lesion has been present for several years - Follow up on outpatient basis Metabolic: Hypernatremia, improved Hypokalemia, discontinued potassium supplementation given ESRD Hyperkalemia, improved Mild hyponatremia, monitoring Hypoglycemic episodes, improved Hypomagnesemia, supplemented LINES/DRAINS/ACCESS: ETT, intubated on 05/28/2024 and tracheostomy performed on 06/11, PEG tube placed on 06/15 IV access Left internal jugular CVC, placed on 06/26 and removed on 07/04 Right IJ hemodialysis catheter placed 07/04 Suprapubic catheter, changed on 06/02/2020 Dripps: Fentanyl patch 25 mg No pressor DIET: Jevity 1.2 john 60 mL/hour DVT prophylaxis Heparin 2000 units Disposition: social media job titles consulted for transfer to the LTACH critical care time including review of charts, discussing case with patient's RN is 35 min CODE STATUS: Full code Continue current management. Waiting for dc to LTACH. Plan discussed with: Other (RN) Date of Service: Jul 05, 2024 Billing Provider: MARTÍNEZ SCOTT MD Common Visit Codes: 02346-[id number] CARE 30-74 MIN MARTÍNEZ SCOTT MD Jul 05, 2024 09:55
--- NOTE | 2024-07-05 11:25 | DVHNC2 ---
Procedure - Bronchoscopy procedure note: Indications: Bilateral lower lobe atelectasis, Possible mucous plugging. Medicines: See MILL WORKER notes. Complications: None Procedure: Patient medications and allergies reviewed. The risks and benefits of the procedure and the sedation options and risk were discussed with the patient's healthcare proxy. All questions were answered and informed consent was obtained. Patient identification and proposed procedure were verified prior to the procedure by the physician, and a nurse, and the respiratory therapist in ICU room. The heart rate, respiratory rate, oxygen saturations, blood pressure, adequacy of pulmonary ventilation, and response to care were monitored throughout the procedure. The physical status of the patient was reassessed after the procedure. After obtaining informed consent, the bronchoscope was introduced through the endotracheal tube and advanced into the trachea bronchial tree of both lungs. The procedure was accomplished without difficulty. The patient tolerated the procedure well. Findings: The trachea is in normal caliber. The chacho is sharp. The tracheobronchial tree of the right lung was examined to at least the first subsegmental level. The bronchial mucosa and anatomy in the right lung are normal. There are no endobronchial lesions. There was copious whitish secretions from right main stem bronchus onward throughout R6-R10. The left upper lobe, lingula, and left lower lobe were examined to at least the first subsegmental level. Bronchial mucosa and anatomy in the left upper lobe and lingula are normal. There were no endobronchial lesions. There was copious whitish secretions from left main stem bronchus onward throughout L1-L10. Mucous plugging removed from L6-L10. There was no active bleeding at the completion of the procedure. Estimated blood loss: Less than 5 mL. Impression: Left lower lobe atelectasis due to mucous plugging Mucous plugging from L6-L10 Right lower lobe mucous plugging Mucus plugging and R6-R10 Recommendation: Pulmonary toileting, trach care Procedure codes: 94394, bronchoscopy, rigid and flexible, including fluoroscopic guidance, one performed; with bronchial endobronchial broncho-alveolar lavage, single or multiple sites ELIANE ALTAMIRANO MD Jul 05, 2024 11:25
--- NOTE | 2024-07-05 17:57 | DVHPN2 ---
Progress Note - Dictate Date Seen: Jul 05, 2024 Has the PT tested + for MRSA If YES, has PT been informed?: Yes Medical Necessity Reason Pt with a Central, PICC or Fol: Yes The following are medically ne: Rubio Catheter Reason for rubio catheter: Strict I&O Subjective Patient seen and examined at bedside. Intubated on mechanical ventilator. S/p trach Overnight events reviewed. vital signs Vital Sign Date Time Temp Pulse Resp B/P (MAP) Pulse Ox O2 Delivery O2 Flow Rate FiO2 07/05/24 16:00 68 07/05/24 16:00 17 98 T-piece 6 28 28 07/05/24 16:00 97.8 149/70 (96) 97.8 Total Intake and Output 07/04/24 07/04/24 07/05/24 15:00 23:00 07:00 Intake Total 200 ml 520 ml Output Total 2650 ml 100 ml Balance -2450 ml 420 ml medications Current Medications Medications Dose Ordered Sig/[place] Route Start Time Stop Time Status Last Admin Dose Admin Heparin Sodium (Porcine) 4,000 units PRN PRN IV 06/07/24 09:00 Hydralazine HCl 100 mg Q8HR PO 06/07/24 14:00 07/05/24 14:00 100 MG Amlodipine Besylate 10 mg DAILY PO 06/10/24 10:00 07/05/24 08:03 10 MG Enoxaparin Sodium 40 mg DAILY SC 06/10/24 10:00 UNV Enoxaparin Sodium 40 mg DAILY SC 06/17/24 10:00 UNV Epoetin Calin-epbx 10,000 unit TUTHSA SC 06/17/24 12:00 Hold 06/28/24 08:25 10,000 UNIT Sodium Chloride 10 ml QSHIFT@10,22 IV 06/17/24 22:00 07/05/24 08:05 10 ML Acetaminophen 650 mg Q6HP PRN GT 06/20/24 11:30 06/28/24 17:05 650 MG Hydralazine HCl 10 mg Q4HP PRN IV 06/24/24 16:45 07/04/24 01:36 10 MG Omeprazole 20 mg DAILY GT 06/26/24 10:00 07/05/24 08:02 20 MG Albuterol 2.5 mg Q6HPRN PRN NEB 06/28/24 11:30 07/02/24 00:28 2.5 MG Lactulose 30 ml [id number] PRN PEG 07/01/24 10:15 Metoprolol Tartrate 50 mg BID PO 07/01/24 22:00 07/05/24 08:04 50 MG Fentanyl 25 mcg Q72H TD 07/01/24 17:30 07/04/24 17:54 25 MCG Enteral Nutritional Formula 1,000 ml 60ML/HR GT 07/02/24 11:00 07/03/24 21:35 1,000 ML Clonidine HCl 0.2 mg BID PO 07/03/24 22:00 07/05/24 08:03 0.2 MG objective Gen.: Patient lying in bed in medical ICU. Intubated on mechanical ventilator. S/p trach. Head: Normocephalic, atraumatic. Eyes: PERRLA. Ears: Normal external anatomy. Throat: Endotracheal tube and orogastric tube in place. Neck: Trach in place. Chest: Transmitted breath sounds bilaterally. Decreased air entry bilaterally. No wheezing. Bibasilar crackles. Cardiovascular: Positive S1, positive S2. Regular rate and rhythm. Abdomen: Positive bowel sounds in all 4 quadrants. Soft, nontender, nondistended. : Rubio in place. Normal external genitalia. Rectal: Deferred. Skin: Warm, dry. Intact. Extremities: 2+ radial pulses bilaterally. No lower extremity edema. Neuro: Off sedation. laboratory and microbiology Laboratory Tests 07/05/24 05:37 Test 07/05/24 05:37 Range/Units Serum Glucose 89 74-106 mg/dL Assessment/Plan Impression: Acute hypoxic respiratory failure On mechanical ventilator Multifocal pneumonia Atelectasis Congestive heart failure Events: Trach showing increased ET secretions. Obtain consent for bronchoscopy w/ BAL. Trach care. Pulmonary toileting. Off sedation Wound care. Tube feeds for nutritional support. HOB elevation Aspiration precautions. HD per Nephrology Monitor renal function Monitor electrolytes. Supplement as necessary. Awaiting LTAC placement. S/p bronchoscopy with BAL on 06/02. See procedure note for full details. Rest of plan as noted below Plan: s/p intubation on mechanical ventilator. S/p trach, trach collar - on 6 L Titrate FIO2 to keep O2 saturation above 90%. VAP bundle. Daily ABG and CXR while intubated Off sedation Off pressors,hemodynamically stable. Antibiotics - completed Positive hepatitis C. IV fluid hydration Maintain euvolemia Monitor renal function Monitor electrolytes. Supplement as necessary. Monitor ins and outs. Tube feeds for nutritional support. GI prophylaxis. DVT prophylaxis. Prognosis: Poor given patient's multiple co-morbidities. Condition: Critical Rest of plan per hospitalist and other consultants. A total of 35 minutes of critical care time was spent reviewing the patient record, examining the patient, making a diagnostic and therapeutic plan, discussing this plan with the medical personnel, following up on diagnostic studies and following the patient for clinical stability excluding any and all procedures. At least 50% of this time was spent in direct, [id number] contact. Thank you Anthony Ugalde NP, for allowing me to participate in this patient's care. Further recommendations will depend on the patient's clinical course. Please do not hesitate to contact me if you have any questions or concerns. This medical document was created using an electronic medical record system with [employer] dictation system. Although these documentations are being carefully reviewed, there may still be some phonetic and typographical changes. The errors are purely typographical, due to imperfection on the software program, and do not reflect any compromise in the patient's medical care. Dietary Evaluation Review Comments: 1) If GI is assessible consider Jevity 1.2 @ 60 ml/hr x24 hrs goal rate as tolerated 2) If pt remains NPO >7 days consider TPN to meet at least 75% of estimated needs 3) Advance pt diet when medically feasible to a Cardiac/Renal Specific K2,2gmNA,low phos,60g Pro diet modified per [employer]ER recommendations 4) Continue current plan of care Expected Outcomes/Goals: 1) Pt to receive adequate nutrition support 2) Pt diet to advance Plan discussed with: Other (DORCAS Phillips) Critical Care Time(min): 35 CC Plasma Assessment Blood Product Administration S: [id number] ELIANE ALTAMIRANO MD Jul 05, 2024 17:57
--- NOTE | 2024-07-05 23:16 | DVHPN2 ---
Consult Progress Note Date Seen: Jul 05, 2024 Subjective Patient reports: Other (underwent bedside bronchi , crackles in right lung base and has a new tunnel catheter and hemodialysis placed in right chest ) Objective vital signs Vital Sign Date Time Temp Pulse Resp B/P (MAP) Pulse Ox O2 Delivery O2 Flow Rate FiO2 07/05/24 22:23 152/76 07/05/24 22:22 74 07/05/24 22:01 19 98 07/05/24 22:00 T-piece 6 28 28 07/05/24 20:00 98.6 98.6 Total Intake and Output 07/04/24 07/04/24 07/05/24 15:00 23:00 07:00 Intake Total 200 ml 520 ml Output Total 2650 ml 100 ml Balance -2450 ml 420 ml medications Current Medications Medications Dose Ordered Sig/[place] Route Start Time Stop Time Status Last Admin Dose Admin Heparin Sodium (Porcine) 4,000 units PRN PRN IV 06/07/24 09:00 Hydralazine HCl 100 mg Q8HR PO 06/07/24 14:00 07/05/24 22:23 100 MG Amlodipine Besylate 10 mg DAILY PO 06/10/24 10:00 07/05/24 08:03 10 MG Enoxaparin Sodium 40 mg DAILY SC 06/10/24 10:00 UNV Enoxaparin Sodium 40 mg DAILY SC 06/17/24 10:00 UNV Epoetin Calin-epbx 10,000 unit TUTHSA SC 06/17/24 12:00 Hold 06/28/24 08:25 10,000 UNIT Sodium Chloride 10 ml QSHIFT@10,22 IV 06/17/24 22:00 07/05/24 22:23 10 ML Acetaminophen 650 mg Q6HP PRN GT 06/20/24 11:30 06/28/24 17:05 650 MG Hydralazine HCl 10 mg Q4HP PRN IV 06/24/24 16:45 07/04/24 01:36 10 MG Omeprazole 20 mg DAILY GT 06/26/24 10:00 07/05/24 08:02 20 MG Albuterol 2.5 mg Q6HPRN PRN NEB 06/28/24 11:30 07/02/24 00:28 2.5 MG Lactulose 30 ml [id number] PRN PEG 07/01/24 10:15 Metoprolol Tartrate 50 mg BID PO 07/01/24 22:00 07/05/24 22:22 50 MG Fentanyl 25 mcg Q72H TD 07/01/24 17:30 07/04/24 17:54 25 MCG Enteral Nutritional Formula 1,000 ml 60ML/HR GT 07/02/24 11:00 07/03/24 21:35 1,000 ML Clonidine HCl 0.2 mg BID PO 07/03/24 22:00 07/05/24 22:23 0.2 MG Physical Exam: General: Intubated, not sedated, awake, follows simple commands. Neck: Supple. No masses. HEENT: PERRL. Normal lids and conjunctiva. Moist mucous membranes. - Oropharynx intubated. Heart: Regular rhythm, normal rate. No murmur. No lower extremity edema. Lungs: On ventilator support. Decreased breath sounds bilaterally. - No wheezes. No crackles. Abdomen: Soft. Non-tender. Non-distended. No masses or abdominal hernia. Msk: Right above-knee amputation. Partial left foot amputation. - Normal strength and tone in remaining limbs. Skin: Warm and dry, no rashes. Chronic wounds over ischial tuberosities. Neuro: Alert. No facial droop or slurred speech. Extra-ocular movements intact. - Unable to assess sensation fully. Psych: Unable to assess mood and affect fully. - Oriented to person, place, time, and situation. laboratory and microbiology Laboratory Tests 07/05/24 05:37 Test 07/05/24 05:37 Range/Units Serum Glucose 89 74-106 mg/dL Problem List/Assessment/Plan Problems(with codes): (1) Dyspnea and respiratory abnormality (2) Sinus tachycardia (3) Urinary tract infection (4) Pleural effusion (5) Respiratory insufficiency (6) Altered mental status (7) Pneumonia (8) Anemia (9) Transaminitis (10) Family history of cerebrovascular accident (CVA) Problem List/Assessment/Plan ASSESSMENT AND PLAN: ID Problem List: - Altered mental status - MDR Acinetobacter and Pseudomonas respiratory infections - MRSA colonization - Fevers (resolving) - Right above-knee amputation - Partial left foot amputation - Congestive heart failure - Chronic obstructive pulmonary disease - Dyslipidemia - Hypertension - Cerebrovascular accident - Liver disease - Myocardial infarction Assessment This is a 69 y.o. male with a past medical history of right above-knee amputation, partial left foot amputation, CHF, COPD, dyslipidemia, hypertension, CVA, liver disease, and MO, who presents with altered mental status. Patient was noted by family to have progressive confusion over the last three days, culminating in unresponsiveness. On arrival to the ED, the patient was unresponsive and was emergently intubated for airway protection. He was unable to provide history due to altered mental status and was admitted to the ICU for prolonged therapy. He underwent tracheostomy and PEG placement on June 13. Microbiology: - On May 28, sputum culture grew MRSA. - On May 30, bronchial culture grew MRSA. - On June 10, tracheal/bronchial washing grew MDR Acinetobacter and Pseudomonas. - Blood cultures grew Staphylococcus capitis and Staphylococcus auricularis on June 02. - Blood cultures grew Staphylococcus epidermidis and Staphylococcus hominis on June 09. - Blood cultures on June 24 showed no growth. - Catheter tip cultures grew MRSA, MDR Acinetobacter, and Enterococcus. Antibiotic history: - Vancomycin from May 28 to June 14. - Piperacillin-tazobactam (Zosyn) from May 28 to May 29. - Ampicillin from May 29 to . - Ceftriaxone from May 29 to . - Linezolid from May 31 to . - Meropenem from May 31 to . Currently, the patient is on linezolid and meropenem. Fevers have resolved since June 27, and recent cultures remain negative. 07/03: Patient has completed 7 days therapy of meropenum and lizasoild empirically for coverage of all possible bacteremia in the setting of catheter site colonization 07/05: Chest xray shows pulmonary vascular congestion Plan: - follow up on operative cultures - patient to be trasfered to a LTAc , no signs of ongoing sepsis - Monitor off all antibiotics - Monitor for signs of infection. - Continue supportive care. - Isolation Precautions: Standard. Assessment and plan were discussed with the patient as written above. Plan is subject to change pending incorporation of new incoming information/diagnostics. Updates may be added as addendum at the bottom (OR TOP) of this note. Thank you for interesting consult. ID will continue to follow. Please contact Infectious Disease for any questions or concerns. Plan discussed with: Other Dietary Evaluation Review Comments: 1) If GI is assessible consider Jevity 1.2 @ 60 ml/hr x24 hrs goal rate as tolerated 2) If pt remains NPO >7 days consider TPN to meet at least 75% of estimated needs 3) Advance pt diet when medically feasible to a Cardiac/Renal Specific K2,2gmNA,low phos,60g Pro diet modified per [employer]OOLOGY TEACHER recommendations 4) Continue current plan of care Expected Outcomes/Goals: 1) Pt to receive adequate nutrition support 2) Pt diet to advance CC Plasma Assessment Blood Product Administration S: [id number] SURINDER CHOWDHURY MD Jul 05, 2024 23:16
[2024-07-06] VITALS (27 sets, daily range): BP systolic 112–167; BP diastolic 56–88; PULSE 61–82; RESP 13–24; TEMP 98.1–99; O2SAT 91–100
--- NOTE | 2024-07-06 07:32 | DVHPN2 ---
Subjective The patient seen and examined at bedside. No change overnight. Reviewed: Care Plan, H&P, Labs, Medications, Previous Orders, Radiology, Other Changes from previous H/P or p: No Changes General: Per HPI Objective Vitals Vital Signs Date Time Temp Pulse Resp B/P (MAP) Pulse Ox O2 Delivery O2 Flow Rate FiO2 07/06/24 06:00 77 15 130/76 (94) 97 07/06/24 06:00 T-piece 6 28 28 07/06/24 04:00 98.6 98.6 Intake/Output Intake and Output 07/06/24 07:00 Intake Total 920 ml Output Total 226 ml Balance 694 ml Tube Feeding 700 ml Other 220 ml Output Urine Total 200 ml Stool Total 26 ml General Appearance: Other (Sedated) HEENT: Atraumatic Lungs: Other (Few crackles bilateral lungs) Cardiovascular: Regular rate Abdomen: Normal bowel sounds, Soft Extremities: Other (Some bilateral lower extremity edema) Medications Current Medications Medications Dose Ordered Sig/[place] Route Start Time Stop Time Status Last Admin Dose Admin Heparin Sodium (Porcine) 4,000 units PRN PRN IV 06/07/24 09:00 Hydralazine HCl 100 mg Q8HR PO 06/07/24 14:00 07/06/24 05:44 100 MG Amlodipine Besylate 10 mg DAILY PO 06/10/24 10:00 07/05/24 08:03 10 MG Enoxaparin Sodium 40 mg DAILY SC 06/10/24 10:00 UNV Enoxaparin Sodium 40 mg DAILY SC 06/17/24 10:00 UNV Epoetin Morena-epbx 10,000 unit TUTHSA SC 06/17/24 12:00 Hold 06/28/24 08:25 10,000 UNIT Sodium Chloride 10 ml QSHIFT@10,22 IV 06/17/24 22:00 07/05/24 22:23 10 ML Acetaminophen 650 mg Q6HP PRN GT 06/20/24 11:30 06/28/24 17:05 650 MG Hydralazine HCl 10 mg Q4HP PRN IV 06/24/24 16:45 07/04/24 01:36 10 MG Omeprazole 20 mg DAILY GT 06/26/24 10:00 07/05/24 08:02 20 MG Albuterol 2.5 mg Q6HPRN PRN NEB 06/28/24 11:30 07/02/24 00:28 2.5 MG Lactulose 30 ml [id number] PRN PEG 07/01/24 10:15 Metoprolol Tartrate 50 mg BID PO 07/01/24 22:00 07/05/24 22:22 50 MG Fentanyl 25 mcg Q72H TD 07/01/24 17:30 07/04/24 17:54 25 MCG Enteral Nutritional Formula 1,000 ml 60ML/HR GT 07/02/24 11:00 07/03/24 21:35 1,000 ML Clonidine HCl 0.2 mg BID PO 07/03/24 22:00 07/05/24 22:23 0.2 MG Laboratory Results Laboratory Tests 07/05/24 05:37 Urinalysis Test 05/28/24 22:36 05/30/24 04:30 Urine Color Dark-brown (Yellow) Urine Clarity Ex.turbid (Clear) Urine pH 6.0 (5.0-9.0) Urine Specific [place] 1.017 (1.001-1.035) Urine Protein 2+ (Negative) H Urine Ketones Trace (Negative) Urine Blood 1+ /uL (Negative) H Urine Nitrite Negative (Negative) Urine Bilirubin Negative (Negative) Urine Urobilinogen Normal mg/dL (Negative) Urine Leukocyte Esterase 3+ /uL (Negative) Urine RBC 56 /hpf (0 - 3) Urine WBC 3664 /hpf (0 - 3) Urine WBC Clumps Present /hpf (None Seen) Urine Squamous Epithelial Cells Many /hpf (<5) Urine Bacteria Mod /hpf (None Seen) H Urine Glucose Normal mg/dL (Normal) Urine Creatinine 33.57 mg/dL (30.0-125.0) Urine Sodium 85 mmol/L (40-220) Microbiology Microbiology Date/Time Source Procedure Growth Status 06/28/24 15:27 Blood Blood Culture - Final NO GROWTH AFTER 5 DAYS OF INCUBATION. Complete 06/25/24 08:20 Catheter Site Aerobic Culture - Preliminary Methicillin Resistant S.aureus Acinetobacter baumannii MDRO Enterococcus faecalis Resulted 06/11/24 16:06 Bronchial Washings Gram Stain - Final Complete 06/11/24 16:06 Respiratory Culture - Final Acinetobacter baumannii Pseudomonas aeruginosa Complete 05/30/24 11:45 Pleural Fluid Gram Stain - Final Complete 05/30/24 11:45 Pleural Fluid Body Fluid Culture - Final Complete 05/28/24 22:36 Urine - Catheterized Urine Culture - Final Enterobacter cloacae Escherichia coli Enterococcus faecalis - VRE Complete Labs and/or images reviewed: Labs reviewed by me Assessment/Plan Assessment/Plan NEURO: Acute metabolic encephalopathy likely due to sepsis History of seizure Patient is sedated and on mechanical ventilation, RASS scores -2 History of seizure during last admission(1 month back) used Keppra for 1 week Discontinued Keppra, on 06/16 EEG shows abnormal EEG recording consistent with the presence of a diffuse nonspecific encephalopathic state CARDIOVASCULAR: Hypertension Continue injection hydralazine 10 mg q.6 hours as needed Increase metoprolol to 50 mg b.i.d., Continue amlodipine 10 mg, hydralazine 100 mg t.i.d. Started clonidine 0.1 mg twice daily 07/01. Clonidine increased to 0.2 mg b.i.d. 07/03 Final blood culture 06/28 shows no growth PULMONARY: Acute Hypoxic Respiratory Failure likely due to pneumonia Septic shock likely due to pneumonia, improved Pneumonia likely due to MRSA and Enterobacter cloacae - Patient is sedated and mechanically ventilated with PEEP of 30% - CT scan shows [id number] left pleural effusion - MRSA nares screening, COVID-19 and flu are negative - Bronchoscopy performed on 06/11, there was some thin mucus secretion on bilateral side, bronchial lavage of right lower lobe and left lower lobe was performed, and the culture results shows Pseudomonas aeruginosa and Enterobacter baumanni, MDR; ID has been consulted - Sputum culture from bronchoalveolar lavage from 05/24/24 shows MRSA, Enterobacter cloacae - Blood culture from the 06/02/24 shows Staphylococcus epidermidis , Staph hominis - Repeat culture from 06/09/2024 shows no growth - Stopped IV linezolid, given for 11 days, discontinued meropenem, started on 06/08 and given for 12 days - discontinued N-acetylcysteine 07/01 - Breathing treatment q.6 hours p.r.n. -started fentanyl patch 25 mcg 07/01 GI - GI ppx: omeprazole 20mg daily via OG tube - Hepatitis-C virus antibody positive - Repeat stool occult blood test is negative - CT abdominopelvic without contrast shows no evidence of intra-abdominal hemorrhage - Tracheostomy is performed on 06/13 - PEG tube is placed on 06/15 - Bowel regimen: Lactulose 30 mL b.i.d. change to p.r.n. 07/01 : FROYLAN, possible VMN on ESRD requiring hemodialysis - Nephrology consulted, epoetin morena 34319 units SC post dialysis. Radiology for tunneled hemodialysis catheter when the blood culture negative for 72 hours - Stopped Bumix 1mg BID - creatinine increased to 3.91 from 3.64 - Homer catheter placed on left internal jugular, on 06/26, removed on 07/04 - tunneled catheter placed to the right upper chest 07/04 - hemodialysis completed 07/02 and 07/04 UTI, urinalysis shows UTI picture - Urine culture from 05/28/2024 shows Enterobacter, E coli, Enterococcus faecalis Status post right lower limb, AKA likely due to PAD Decubitus ulcer - There are multiple stage 3-4 sacral ulcers draining pus - position changing every 2 hours and dressing -started fentanyl patch 25 mcg 07/01 HEME Severe anemia, transfused 4 pack of red blood cells Thrombocytopenia - current HB is 8 ID: - Sputum culture from bronchoalveolar lavage from 05/24/24 shows MRSA, Enterobacter cloacae - Blood culture from the 06/02/24 shows Staphylococcus epidermidis , Staph hominis - Repeat culture from 06/09/2024 shows no growth - culture results from BAL from 06/11 shows Pseudomonas aeruginosa and Enterobacter baumanni, MDR - discontinued IV linezolid starting 06/28 and meropenem starting 06/25, discontinued in 07/03 - previously received vancomycin - catheter site culture 06/25 completed shows MRSA, Acinetobacter baumannii MDRO, Enterococcus faecalis. SKIN Possible keloid - There is a growth on the left shoulder, per son, lesion has been present for several years - Follow up on outpatient basis Metabolic: Hypernatremia, improved Hypokalemia, discontinued potassium supplementation given ESRD Hyperkalemia, improved Mild hyponatremia, monitoring Hypoglycemic episodes, improved Hypomagnesemia, supplemented LINES/DRAINS/ACCESS: ETT, intubated on 05/28/2024 and tracheostomy performed on 06/11, PEG tube placed on 06/15 IV access Left internal jugular CVC, placed on 06/26 and removed on 07/04 Right IJ hemodialysis catheter placed 07/04 Suprapubic catheter, changed on 06/02/2020 Dripps: Fentanyl patch 25 mg No pressor DIET: Jevity 1.2 john 60 mL/hour DVT prophylaxis Heparin 2000 units Disposition: social service worker consulted for transfer to the LTACH critical care time including review of charts, discussing case with patient's RN is 35 min CODE STATUS: Full code Continue current management. Waiting for dc to LTACH. Plan discussed with: Other (RN) Date of Service: Jul 06, 2024 Billing Provider: MARTÍNEZ SCOTT MD Common Visit Codes: [id number] INP/OBS CARE(HIGH) MARTÍNEZ SCOTT MD Jul 06, 2024 07:32
--- NOTE | 2024-07-06 11:57 | DVHPN2 ---
Progress Note Date Seen: Jul 06, 2024 Has the PT tested + for MRSA If YES, has PT been informed?: Yes Medical Necessity Reason Pt with a Central, PICC or Fol: Yes The following are medically ne: Rubio Catheter Reason for rubio catheter: Strict I&O Subjective Review of Systems: RESPIRATORY:Abnormal (Patient seen and examined by myself in follow-up today, patient remained trached and intubated) Other Systems: Patient seen and examined by myself today in follow-up, patient remained trached on the vent Objective vital signs Vital Sign Date Time Temp Pulse Resp B/P (MAP) Pulse Ox O2 Delivery O2 Flow Rate FiO2 07/06/24 11:30 147/73 07/06/24 11:30 76 07/06/24 11:00 19 91 07/06/24 10:00 T-piece 6 28 28 07/06/24 09:00 99.0 99.0 Total Intake and Output 07/05/24 07/05/24 07/06/24 15:00 23:00 07:00 Intake Total 350 ml 570 ml Output Total 101 ml 125 ml Balance 249 ml 445 ml medications Current Medications Medications Dose Ordered Sig/[place] Route Start Time Stop Time Status Last Admin Dose Admin Heparin Sodium (Porcine) 4,000 units PRN PRN IV 06/07/24 09:00 Hydralazine HCl 100 mg Q8HR PO 06/07/24 14:00 07/06/24 05:44 100 MG Amlodipine Besylate 10 mg DAILY PO 06/10/24 10:00 07/06/24 10:09 10 MG Enoxaparin Sodium 40 mg DAILY SC 06/10/24 10:00 UNV Enoxaparin Sodium 40 mg DAILY SC 06/17/24 10:00 UNV Epoetin Calin-epbx 10,000 unit TUTHSA SC 06/17/24 12:00 Hold 06/28/24 08:25 10,000 UNIT Sodium Chloride 10 ml QSHIFT@ IV 06/17/24 22:00 07/06/24 10:09 10 ML Acetaminophen 650 mg Q6HP PRN GT 06/20/24 11:30 06/28/24 17:05 650 MG Hydralazine HCl 10 mg Q4HP PRN IV 06/24/24 16:45 07/04/24 01:36 10 MG Omeprazole 20 mg DAILY GT 06/26/24 10:00 07/06/24 10:09 20 MG Albuterol 2.5 mg Q6HPRN PRN NEB 06/28/24 11:30 07/02/24 00:28 2.5 MG Lactulose 30 ml [id number] PRN PEG 07/01/24 10:15 Metoprolol Tartrate 50 mg BID PO 07/01/24 22:00 07/06/24 10:09 50 MG Fentanyl 25 mcg Q72H TD 07/01/24 17:30 07/04/24 17:54 25 MCG Enteral Nutritional Formula 1,000 ml 60ML/HR GT 07/02/24 11:00 07/03/24 21:35 1,000 ML Clonidine HCl 0.2 mg BID PO 07/03/24 22:00 07/06/24 10:08 0.2 MG Examination: LUNGS:Normal, CVS:Normal, MSK:Normal laboratory and microbiology Laboratory Tests 07/05/24 05:37 Test 07/05/24 05:37 Range/Units Serum Glucose 89 74-106 mg/dL Microbiology Date/Time Source Procedure Growth Status 06/28/24 15:27 Blood Blood Culture - Final NO GROWTH AFTER 5 DAYS OF INCUBATION. Complete 06/25/24 08:20 Catheter Site Aerobic Culture - Preliminary Methicillin Resistant S.aureus Acinetobacter baumannii MDRO Enterococcus faecalis Resulted 06/11/24 16:06 Bronchial Washings Gram Stain - Final Complete 06/11/24 16:06 Respiratory Culture - Final Acinetobacter baumannii Pseudomonas aeruginosa Complete 05/30/24 11:45 Pleural Fluid Gram Stain - Final Complete 05/30/24 11:45 Pleural Fluid Body Fluid Culture - Final Complete 05/28/24 22:36 Urine - Catheterized Urine Culture - Final Enterobacter cloacae Escherichia coli Enterococcus faecalis - VRE Complete Problem List/Assessment/Plan Problem List/Assessment/Plan Acute kidney injury superimposed on chronic kidney disease stage 4, oliguric requiring initiation of hemodialysis D Acute respiratory failure, patient is trached Anemia suspected due to low blood loss s/p PRBC Septic shock Hypernatremia Hypokalemia Peripheral arterial disease Right above knee amputation Metabolic acidosis Chronic urinary retention MRSA bacteremia Recommendations Hemodialysis tomorrow Epogen 70047 IV post hemodialysis Rubio catheter Strict I&Os KCL replacement IV pressor for blood pressure support IV antibiotic per ID consult We will continue to follow Plan discussed with: Patient, Other (Nurse) Dietary Evaluation Review Comments: 1) If GI is assessible consider Jevity 1.2 @ 60 ml/hr x24 hrs goal rate as tolerated 2) If pt remains NPO >7 days consider TPN to meet at least 75% of estimated needs 3) Advance pt diet when medically feasible to a Cardiac/Renal Specific K2,2gmNA,low phos,60g Pro diet modified per BUSINESS CONTINUITY CONSULTANT recommendations 4) Continue current plan of care Expected Outcomes/Goals: 1) Pt to receive adequate nutrition support 2) Pt diet to advance CC Plasma Assessment Blood Product Administration S: [id number] DAVID TORRES MD Jul 06, 2024 11:57
--- NOTE | 2024-07-06 21:14 | DVHPN2 ---
Progress Note - Dictate Date Seen: Jul 06, 2024 Has the PT tested + for MRSA If YES, has PT been informed?: Yes Medical Necessity Reason Pt with a Central, PICC or Fol: Yes The following are medically ne: Rubio Catheter Reason for rubio catheter: Strict I&O Subjective Patient seen and examined at bedside. Intubated on mechanical ventilator. S/p trach Overnight events reviewed. vital signs Vital Sign Date Time Temp Pulse Resp B/P (MAP) Pulse Ox O2 Delivery O2 Flow Rate FiO2 07/06/24 20:00 75 17 97 T-piece 8 30 30 07/06/24 20:00 98.1 153/88 (109) 98.1 Total Intake and Output 07/05/24 07/05/24 07/06/24 15:00 23:00 07:00 Intake Total 350 ml 570 ml Output Total 101 ml 125 ml Balance 249 ml 445 ml medications Current Medications Medications Dose Ordered Sig/[place] Route Start Time Stop Time Status Last Admin Dose Admin Heparin Sodium (Porcine) 4,000 units PRN PRN IV 06/07/24 09:00 Hydralazine HCl 100 mg Q8HR PO 06/07/24 14:00 07/06/24 14:11 100 MG Amlodipine Besylate 10 mg DAILY PO 06/10/24 10:00 07/06/24 10:09 10 MG Enoxaparin Sodium 40 mg DAILY SC 06/10/24 10:00 UNV Enoxaparin Sodium 40 mg DAILY SC 06/17/24 10:00 UNV Epoetin Calin-epbx 10,000 unit TUTHSA SC 06/17/24 12:00 Hold 06/28/24 08:25 10,000 UNIT Sodium Chloride 10 ml QSHIFT@ IV 06/17/24 22:00 07/06/24 10:09 10 ML Acetaminophen 650 mg Q6HP PRN GT 06/20/24 11:30 06/28/24 17:05 650 MG Hydralazine HCl 10 mg Q4HP PRN IV 06/24/24 16:45 07/04/24 01:36 10 MG Omeprazole 20 mg DAILY GT 06/26/24 10:00 07/06/24 10:09 20 MG Albuterol 2.5 mg Q6HPRN PRN NEB 06/28/24 11:30 07/02/24 00:28 2.5 MG Lactulose 30 ml [id number] PRN PEG 07/01/24 10:15 Metoprolol Tartrate 50 mg BID PO 07/01/24 22:00 07/06/24 10:09 50 MG Fentanyl 25 mcg Q72H TD 07/01/24 17:30 07/04/24 17:54 25 MCG Enteral Nutritional Formula 1,000 ml 60ML/HR GT 07/02/24 11:00 07/03/24 21:35 1,000 ML Clonidine HCl 0.2 mg BID PO 07/03/24 22:00 07/06/24 10:08 0.2 MG objective Gen.: Patient lying in bed in medical ICU. Intubated on mechanical ventilator. S/p trach. Head: Normocephalic, atraumatic. Eyes: PERRLA. Ears: Normal external anatomy. Throat: Endotracheal tube and orogastric tube in place. Neck: Trach in place. Chest: Transmitted breath sounds bilaterally. Decreased air entry bilaterally. No wheezing. Bibasilar crackles. Cardiovascular: Positive S1, positive S2. Regular rate and rhythm. Abdomen: Positive bowel sounds in all 4 quadrants. Soft, nontender, nondistended. : Rubio in place. Normal external genitalia. Rectal: Deferred. Skin: Warm, dry. Intact. Extremities: 2+ radial pulses bilaterally. No lower extremity edema. Neuro: Off sedation. laboratory and microbiology Laboratory Tests 07/05/24 05:37 Test 07/05/24 05:37 Range/Units Serum Glucose 89 74-106 mg/dL Assessment/Plan Impression: Acute hypoxic respiratory failure On mechanical ventilator Multifocal pneumonia Atelectasis Congestive heart failure Events: Desaturation events - increased trach secretions. Obtain consent for bronchoscopy w/ BAL. Humidified O2 Trach care. Pulmonary toileting. Off sedation Patient is awake, alert. Wound care. Tube feeds for nutritional support. HOB elevation Aspiration precautions. HD per Nephrology Monitor renal function Monitor electrolytes. Supplement as necessary. Awaiting LTAC placement. S/p bronchoscopy with BAL on 06/02. See procedure note for full details. Rest of plan as noted below Plan: s/p intubation on mechanical ventilator. S/p trach, trach collar - on 6 L Titrate FIO2 to keep O2 saturation above 90%. VAP bundle. Daily ABG and CXR while intubated Off sedation Off pressors,hemodynamically stable. Antibiotics - completed Positive hepatitis C. IV fluid hydration Maintain euvolemia Monitor renal function Monitor electrolytes. Supplement as necessary. Monitor ins and outs. Tube feeds for nutritional support. GI prophylaxis. DVT prophylaxis. Prognosis: Poor given patient's multiple co-morbidities. Condition: Critical Rest of plan per hospitalist and other consultants. A total of 35 minutes of critical care time was spent reviewing the patient record, examining the patient, making a diagnostic and therapeutic plan, discussing this plan with the medical personnel, following up on diagnostic studies and following the patient for clinical stability excluding any and all procedures. At least 50% of this time was spent in direct, [id number] contact. Thank you Anthony Ugalde NP, for allowing me to participate in this patient's care. Further recommendations will depend on the patient's clinical course. Please do not hesitate to contact me if you have any questions or concerns. This medical document was created using an electronic medical record system with [employer] dictation system. Although these documentations are being carefully reviewed, there may still be some phonetic and typographical changes. The errors are purely typographical, due to imperfection on the software program, and do not reflect any compromise in the patient's medical care. Dietary Evaluation Review Comments: 1) If GI is assessible consider Jevity 1.2 @ 60 ml/hr x24 hrs goal rate as tolerated 2) If pt remains NPO >7 days consider TPN to meet at least 75% of estimated needs 3) Advance pt diet when medically feasible to a Cardiac/Renal Specific K2,2gmNA,low phos,60g Pro diet modified per [employer]IC[employer] AIDE recommendations 4) Continue current plan of care Expected Outcomes/Goals: 1) Pt to receive adequate nutrition support 2) Pt diet to advance Plan discussed with: Other (DORCAS Mccurdy) Critical Care Time(min): 35 CC Plasma Assessment Blood Product Administration S: [id number] ELIANE ALTAMIRANO MD Jul 06, 2024 21:14
--- NOTE | 2024-07-06 21:22 | DVHNC2 ---
Procedure - Bronchoscopy procedure note: Indications: Right lower lobe atelectasis, Possible mucous plugging. Medicines: See F[employer] ROOM WORKER notes. Complications: None Procedure: Patient medications and allergies reviewed. The risks and benefits of the procedure and the sedation options and risk were discussed with the patient's healthcare proxy. All questions were answered and informed consent was obtained. Patient identification and proposed procedure were verified prior to the procedure by the physician, and a nurse, and the respiratory therapist in ICU room. The heart rate, respiratory rate, oxygen saturations, blood pressure, adequacy of pulmonary ventilation, and response to care were monitored throughout the procedure. The physical status of the patient was reassessed after the procedure. After obtaining informed consent, the bronchoscope was introduced through the endotracheal tube and advanced into the trachea bronchial tree of both lungs. The procedure was accomplished without difficulty. The patient tolerated the procedure well. Findings: The trachea is in normal caliber. The chacho is sharp. The tracheobronchial tree of the right lung was examined to at least the first subsegmental level. The bronchial mucosa and anatomy in the right lung are normal. There are no endobronchial lesions. There was copious whitish secretions from right main stem bronchus onward throughout R6-R10. The left upper lobe, lingula, and left lower lobe were examined to at least the first subsegmental level. Bronchial mucosa and anatomy in the left upper lobe and lingula are normal. There were no endobronchial lesions. There were no secretions. There was no active bleeding at the completion of the procedure. Estimated blood loss: Less than 5 mL. Impression: Right lower lobe atelectasis due to mucous plugging Mucous plugging from R6-R10 Recommendation: Pulmonary toileting Procedure codes: 89106, bronchoscopy, rigid and flexible, including fluoroscopic guidance, one performed; with bronchial endobronchial removal of mucous plugs, single or multiple sites ELIANE ALTAMIRANO MD Jul 06, 2024 21:22
--- NOTE | 2024-07-06 23:09 | DVHPN2 ---
Consult Progress Note Date Seen: Jul 06, 2024 Subjective Patient reports: Other (got a bronchoscopy for airway clearance , he is on 6 liter trach coloar with coarse rhonki in both lungs ) Objective vital signs Vital Sign Date Time Temp Pulse Resp B/P (MAP) Pulse Ox O2 Delivery O2 Flow Rate FiO2 07/06/24 22:00 68 24 142/73 (96) 96 07/06/24 22:00 T-piece 6 28 28 07/06/24 20:00 98.1 98.1 Total Intake and Output 07/05/24 07/05/24 07/06/24 15:00 23:00 07:00 Intake Total 350 ml 570 ml Output Total 101 ml 125 ml Balance 249 ml 445 ml medications Current Medications Medications Dose Ordered Sig/[place] Route Start Time Stop Time Status Last Admin Dose Admin Heparin Sodium (Porcine) 4,000 units PRN PRN IV 06/07/24 09:00 Hydralazine HCl 100 mg Q8HR PO 06/07/24 14:00 07/06/24 21:45 100 MG Amlodipine Besylate 10 mg DAILY PO 06/10/24 10:00 07/06/24 10:09 10 MG Enoxaparin Sodium 40 mg DAILY SC 06/10/24 10:00 UNV Enoxaparin Sodium 40 mg DAILY SC 06/17/24 10:00 UNV Epoetin Calin-epbx 10,000 unit TUTHSA SC 06/17/24 12:00 Hold 06/28/24 08:25 10,000 UNIT Sodium Chloride 10 ml QSHIFT@10, IV 06/17/24 22:00 07/06/24 21:46 10 ML Acetaminophen 650 mg Q6HP PRN GT 06/20/24 11:30 06/28/24 17:05 650 MG Hydralazine HCl 10 mg Q4HP PRN IV 06/24/24 16:45 07/04/24 01:36 10 MG Omeprazole 20 mg DAILY GT 06/26/24 10:00 07/06/24 10:09 20 MG Albuterol 2.5 mg Q6HPRN PRN NEB 06/28/24 11:30 07/02/24 00:28 2.5 MG Lactulose 30 ml [id number] PRN PEG 07/01/24 10:15 Metoprolol Tartrate 50 mg BID PO 07/01/24 22:00 07/06/24 21:45 50 MG Fentanyl 25 mcg Q72H TD 07/01/24 17:30 07/04/24 17:54 25 MCG Enteral Nutritional Formula 1,000 ml 60ML/HR GT 07/02/24 11:00 07/03/24 21:35 1,000 ML Clonidine HCl 0.2 mg BID PO 07/03/24 22:00 07/06/24 21:46 0.2 MG Physical Exam: General: Intubated, not sedated, awake, follows simple commands. Neck: Supple. No masses. HEENT: PERRL. Normal lids and conjunctiva. Moist mucous membranes. - Oropharynx intubated. Heart: Regular rhythm, normal rate. No murmur. No lower extremity edema. Lungs: On ventilator support. Decreased breath sounds bilaterally. - No wheezes. No crackles. Abdomen: Soft. Non-tender. Non-distended. No masses or abdominal hernia. Msk: Right above-knee amputation. Partial left foot amputation. - Normal strength and tone in remaining limbs. Skin: Warm and dry, no rashes. Chronic wounds over ischial tuberosities. Neuro: Alert. No facial droop or slurred speech. Extra-ocular movements intact. - Unable to assess sensation fully. Psych: Unable to assess mood and affect fully. - Oriented to person, place, time, and situation. laboratory and microbiology Laboratory Tests 07/05/24 05:37 Test 07/05/24 05:37 Range/Units Serum Glucose 89 74-106 mg/dL Problem List/Assessment/Plan Problems(with codes): (1) Family history of cerebrovascular accident (CVA) (2) Dyspnea and respiratory abnormality (3) Transaminitis (4) Anemia (5) Metabolic encephalopathy (6) Pneumonia (7) Altered mental status (8) Sepsis Problem List/Assessment/Plan ASSESSMENT AND PLAN: ID Problem List: - Altered mental status - MDR Acinetobacter and Pseudomonas respiratory infections - MRSA colonization - Fevers (resolving) - Right above-knee amputation - Partial left foot amputation - Congestive heart failure - Chronic obstructive pulmonary disease - Dyslipidemia - Hypertension - Cerebrovascular accident - Liver disease - Myocardial infarction Assessment This is a 69 y.o. male with a past medical history of right above-knee amputation, partial left foot amputation, CHF, COPD, dyslipidemia, hypertension, CVA, liver disease, and MT, who presents with altered mental status. Patient was noted by family to have progressive confusion over the last three days, culminating in unresponsiveness. On arrival to the ED, the patient was unresponsive and was emergently intubated for airway protection. He was unable to provide history due to altered mental status and was admitted to the ICU for prolonged therapy. He underwent tracheostomy and PEG placement on June 13. Microbiology: - On May 28, sputum culture grew MRSA. - On May 30, bronchial culture grew MRSA. - On June 10, tracheal/bronchial washing grew MDR Acinetobacter and Pseudomonas. - Blood cultures grew Staphylococcus capitis and Staphylococcus auricularis on June 02. - Blood cultures grew Staphylococcus epidermidis and Staphylococcus hominis on June 09. - Blood cultures on June 24 showed no growth. - Catheter tip cultures grew MRSA, MDR Acinetobacter, and Enterococcus. Antibiotic history: - Vancomycin from May 28 to June 14. - Piperacillin-tazobactam (Zosyn) from May 28 to May 29. - Ampicillin from May 29 to . - Ceftriaxone from May 29 to . - Linezolid from May 31 to . - Meropenem from May 31 to . Currently, the patient is on linezolid and meropenem. Fevers have resolved since June 27, and recent cultures remain negative. 07/03: Patient has completed 7 days therapy of meropenum and lizasoild empirically for coverage of all possible bacteremia in the setting of catheter site colonization 07/05: Chest xray shows pulmonary vascular congestion Plan: - follow up on operative cultures - patient to be trasfered to a LTAc , no signs of ongoing sepsis - Monitor off all antibiotics - Monitor for signs of infection. - Continue supportive care. - Isolation Precautions: Standard. Assessment and plan were discussed with the patient as written above. Plan is subject to change pending incorporation of new incoming information/diagnostics. Updates may be added as addendum at the bottom (OR TOP) of this note. Thank you for interesting consult. ID will continue to follow. Please contact Infectious Disease for any questions or concerns. Plan discussed with: Other Dietary Evaluation Review Comments: 1) If GI is assessible consider Jevity 1.2 @ 60 ml/hr x24 hrs goal rate as tolerated 2) If pt remains NPO >7 days consider TPN to meet at least 75% of estimated needs 3) Advance pt diet when medically feasible to a Cardiac/Renal Specific K2,2gmNA,low phos,60g Pro diet modified per TIME STUDY STATISTICIAN recommendations 4) Continue current plan of care Expected Outcomes/Goals: 1) Pt to receive adequate nutrition support 2) Pt diet to advance CC Plasma Assessment Blood Product Administration S: [id number] SURINDER CHOWDHURY MD Jul 06, 2024 23:09
[2024-07-07] VITALS (26 sets, daily range): BP systolic 127–180; BP diastolic 52–88; PULSE 63–84; RESP 15–22; TEMP 97.1–98.4; O2SAT 93–100
[2024-07-07 05:23] LABS: Hemoglobin 7.6 g/dL (13.5-17.5); Mean Corpuscular Volume 99.1 fL (80.0-100.0)
[2024-07-07 05:26] LABS: Hematocrit 22.9 % (41.0-53.0); Mean Corpuscular Hemoglobin 32.8 pg (28.0-32.0); Mean Corpuscular Hgb Conc. 33.1 g/dL (32.0-36.0); Platelet Count (auto) 118 10^3/uL (140-450); Red Blood Cells 2.31 10^6/uL (4.5-5.90); White Blood Cell 5.4 10^3/uL (4.4-10.8)
[2024-07-07 05:30] LABS: Chloride 105 mmol/L (98-107); Potassium 4.3 mmol/L (3.5-5.1); Sodium 142 mmol/L (136-145)
[2024-07-07 05:31] LABS: Anion Gap 5 (5-15); Calcium 8.8 mg/dL (8.7-10.4)
[2024-07-07 05:33] LABS: Band Neutrophils % (manual) 0; Basophils % (manual) 0 (0.0-2.0); Blast Cells 0; Metamyelocytes % 0; Promyelocytes % 0; Reactive Lymphocytes 0
[2024-07-07 05:36] LABS: BUN/Creatinine Ratio 9.4 (10.0-20.0); Glucose 94 mg/dL (74-106)
[2024-07-07 06:02] LABS: Blood Urea Nitrogen 32 mg/dL (9-23); Carbon Dioxide 32 mmol/L (20-31)
--- NOTE | 2024-07-07 10:39 | DVHPN2 ---
Progress Note - Dictate Date Seen: Jul 07, 2024 Has the PT tested + for MRSA If YES, has PT been informed?: Yes Medical Necessity Reason Pt with a Central, PICC or Fol: Yes The following are medically ne: Rubio Catheter Reason for rubio catheter: Strict I&O Subjective remains in icu trach to wall oxygen vital signs Vital Sign Date Time Temp Pulse Resp B/P (MAP) Pulse Ox O2 Delivery O2 Flow Rate FiO2 07/07/24 09:00 76 18 133/68 (89) 07/07/24 08:00 98 T-piece 6 07/07/24 08:00 98.2 98.2 Total Intake and Output 07/06/24 07/06/24 07/07/24 15:00 23:00 07:00 Intake Total 600 ml 600 ml Output Total 125 ml 350 ml Balance 475 ml 250 ml medications Current Medications Medications Dose Ordered Sig/[place] Route Start Time Stop Time Status Last Admin Dose Admin Heparin Sodium (Porcine) 4,000 units PRN PRN IV 06/07/24 09:00 Hydralazine HCl 100 mg Q8HR PO 06/07/24 14:00 07/07/24 05:16 100 MG Amlodipine Besylate 10 mg DAILY PO 06/10/24 10:00 07/06/24 10:09 10 MG Enoxaparin Sodium 40 mg DAILY SC 06/10/24 10:00 UNV Enoxaparin Sodium 40 mg DAILY SC 06/17/24 10:00 UNV Epoetin Calin-epbx 10,000 unit TUTHSA SC 06/17/24 12:00 Hold 06/28/24 08:25 10,000 UNIT Sodium Chloride 10 ml QSHIFT@ IV 06/17/24 22:00 07/06/24 21:46 10 ML Acetaminophen 650 mg Q6HP PRN GT 06/20/24 11:30 06/28/24 17:05 650 MG Hydralazine HCl 10 mg Q4HP PRN IV 06/24/24 16:45 07/04/24 01:36 10 MG Omeprazole 20 mg DAILY GT 06/26/24 10:00 07/06/24 10:09 20 MG Albuterol 2.5 mg Q6HPRN PRN NEB 06/28/24 11:30 07/02/24 00:28 2.5 MG Lactulose 30 ml [id number] PRN PEG 07/01/24 10:15 Metoprolol Tartrate 50 mg BID PO 07/01/24 22:00 07/06/24 21:45 50 MG Fentanyl 25 mcg Q72H TD 07/01/24 17:30 07/04/24 17:54 25 MCG Enteral Nutritional Formula 1,000 ml 60ML/HR GT 07/02/24 11:00 07/07/24 05:16 1,000 ML Clonidine HCl 0.2 mg BID PO 07/03/24 22:00 07/06/24 21:46 0.2 MG objective Critically ill-appearing elderly white male Tracheostomy No pressors No JVD Regular rate and rhythm Abdomen nondistended non firm no guarding no fluid wave, colostomy has hard stool Suprapubic Rubio catheter Urine color is clear No pitting edema of the lower extremity laboratory and microbiology Laboratory Tests 07/07/24 04:55 Test 07/07/24 04:55 Range/Units Serum Glucose 94 74-106 mg/dL Assessment/Plan Acute kidney injury superimposed on chronic kidney disease stage 4, oliguric requiring initiation of hemodialysis D Acute respiratory failure, patient is trached Anemia suspected due to low blood loss s/p PRBC Septic shock Hypernatremia Hypokalemia Peripheral arterial disease Right above knee amputation Metabolic acidosis Chronic urinary retention MRSA bacteremia Hemodialysis today Epogen 38980 IV post hemodialysis Rubio catheter Dietary Evaluation Review Comments: 1) If GI is assessible consider Jevity 1.2 @ 60 ml/hr x24 hrs goal rate as tolerated 2) If pt remains NPO >7 days consider TPN to meet at least 75% of estimated needs 3) Advance pt diet when medically feasible to a Cardiac/Renal Specific K2,2gmNA,low phos,60g Pro diet modified per SHEET SEWER recommendations 4) Continue current plan of care Expected Outcomes/Goals: 1) Pt to receive adequate nutrition support 2) Pt diet to advance Plan discussed with: Patient Critical Care Time(min): 33 CC Plasma Assessment Blood Product Administration S: [id number] ANNA ROMERO MD Jul 07, 2024 10:39
[2024-07-07 11:39] LABS: Eosinophils % (manual) 6 (0-7); Lymphocytes % (manual) 9 (10.0-50.0); Monocytes % (manual) 4 (0-12); Myelocytes % 1; Platelet Estimate Decreased
[2024-07-07] MEDS: SODIUM CHL 0.9% 1000 ML BAG XX ONE (15:20)
--- NOTE | 2024-07-07 19:37 | DVHPNRES ---
Progress Note Date Seen: Jul 07, 2024 Resident Creating Document: THA CRISOSTOMO RESIDENT Has the PT tested + for MRSA If YES, has PT been informed?: Yes Medical Necessity Reason Pt with a Central, PICC or Fol: Yes The following are medically ne: Rubio Catheter Reason for rubio catheter: Strict I&O Subjective Review of Systems This is a 65-year-old male with past medical history of CHF, CKD, COPD, dyslipidemia, hypertension, CVA brought to the hospital with shortness of breaths and at the level of consciousness. Admitted and intubated on 05/28, extubated on 06/09 but reintubated on 06/10. Epigastric performed on 06/13, PEG tube placed on 06/15. 07/01 - Patient seen and examined at bedside. Overnight no events, patient made 150 cc of urine in the morning and 125 cc in the night. Multiple bowel movements 500 cc on 06/30, 250 cc on the night of 07/01 and 200 on the morning of 07/01. Lactulose changed to p.r.n.. Patient is intubated and mechanically ventilated. Patient is satting 97% on trach collar via 6 L oxygen supplementation for the past 24 hours. He is not on pressor support. On fentanyl 20 mcg. Increase metoprolol to 50 mg b.i.d. and started clonidine 0.1 mg b.i.d.. Started fentanyl patch 25 mcg. IV fentanyl will be discontinued after overlapping her 4-5 hours with fentanyl patch. 07/02 - overnight patient made 100 mL of urine. 50 mL of output was drain from colostomy bag. Otherwise no events. Patient seen and examined at bedside. He underwent dialysis this morning and 2.5 L were drained. Chest x-ray reviewed shows worsening left-sided infiltrate. Patient is satting 98% on 3 color with 6 L oxygen supplementation. 07/03 - overnight colostomy bag was leaking so it was changed. Patient had 50 mL urine output in the [facility] shift [facility], 115 mL during the of the of 07/02. Colostomy bag was drained with 50 mL of contents. Patient is still hypotensive systolic ranging in 150s to 160s therefore clonidine increased to 0.2 mg b.i.d.. Creatinine trending down to 3.2. Tunnel catheter consent obtained. IR consulted. NPO starting morning. Final blood culture 06/28 shows no growth. IV antibiotics discontinued. 07/04 - overnight patient had 200 mL of colostomy output. Urine output 125 in the day of 07/03 and 150 in the veterinary hospital shift lead. Tunneled catheter placed to the right upper chest. DC left IJ catheter once dialysis session completed. Undergoing dialysis session today. 07/07 - patient seen and examined in the bedside. Underwent dialysis today. Over the weekend bronchoscopy completed 07/05 showed left lower lobe atelectasis due to mucus plugging and right lower lobe mucous plugging. Objective vital signs Vital Sign Date Time Temp Pulse Resp B/P (MAP) Pulse Ox O2 Delivery O2 Flow Rate FiO2 07/07/24 18:00 67 18 138/75 (96) 96 07/07/24 18:00 T-piece 6 28 28 07/07/24 16:00 98.4 98.4 Total Intake and Output 07/06/24 07/06/24 07/07/24 14:59 22:59 06:59 Intake Total 600 ml 600 ml Output Total 125 ml 350 ml Balance 475 ml 250 ml medications Current Medications Medications Dose Ordered Sig/[place] Route Start Time Stop Time Status Last Admin Dose Admin Amlodipine Besylate 10 mg DAILY PO 06/10/24 10:00 07/07/24 14:08 10 MG Enoxaparin Sodium 40 mg DAILY SC 06/10/24 10:00 UNV Enoxaparin Sodium 40 mg DAILY SC 06/17/24 10:00 UNV Epoetin Morena-epbx 10,000 unit TUTHSA SC 06/17/24 12:00 Hold 06/28/24 08:25 10,000 UNIT Sodium Chloride 10 ml QSHIFT@, IV 06/17/24 22:00 07/07/24 12:10 10 ML Acetaminophen 650 mg Q6HP PRN GT 06/20/24 11:30 06/28/24 17:05 650 MG Hydralazine HCl 10 mg Q4HP PRN IV 06/24/24 16:45 07/07/24 14:37 10 MG Omeprazole 20 mg DAILY GT 06/26/24 10:00 07/07/24 12:09 20 MG Albuterol 2.5 mg Q6HPRN PRN NEB 06/28/24 11:30 07/02/24 00:28 2.5 MG Lactulose 30 ml [id number] PRN PEG 07/01/24 10:15 Metoprolol Tartrate 50 mg BID PO 07/01/24 22:00 07/07/24 14:51 50 MG Fentanyl 25 mcg Q72H TD 07/01/24 17:30 07/04/24 17:54 25 MCG Enteral Nutritional Formula 1,000 ml 60ML/HR GT 07/02/24 11:00 07/07/24 05:16 1,000 ML Clonidine HCl 0.2 mg BID PO 07/03/24 22:00 07/07/24 14:52 0.2 MG Examination Patient lying in bed, in no acute distress. Patient is alert and following commands General: afebrile, palor, mucosae are moist Cardiovascular: Regular S1 and S2. No murmurs, gallops or rubs. No JVD elevation. Bilateral pitting edema. Respiratory: Decreased but equal Bilateral air entry. Saturating 97% with 6 L supplementation via tracheostomy. Abdomen: Soft, nontender, nondistended, normoactive bowel sounds, no rebound tenderness, no organomegaly, no masses. Suprapubic catheter seen draining urine and colostomy bag seen draining 10 mL of dark yellow which is liquid in consistency. Peg tube in place. Genitourinary: Stage III sacral ulcer, skin non intact, draining pus and erythema noted. MSK/skin: Limb movement can not be assessed. Skin is dry and warm Neurological: Pupils are isocoric and reactive. laboratory and microbiology Laboratory Tests 07/07/24 04:55 Test 07/07/24 04:55 Range/Units Serum Glucose 94 74-106 mg/dL Microbiology Date/Time Source Procedure Growth Status 06/28/24 15:27 Blood Blood Culture - Final NO GROWTH AFTER 5 DAYS OF INCUBATION. Complete 06/25/24 08:20 Catheter Site Aerobic Culture - Final Methicillin Resistant S.aureus Acinetobacter baumannii MDRO Enterococcus faecalis Complete 06/11/24 16:06 Bronchial Washings Gram Stain - Final Complete 06/11/24 16:06 Respiratory Culture - Final Acinetobacter baumannii Pseudomonas aeruginosa Complete 05/30/24 11:45 Pleural Fluid Gram Stain - Final Complete 05/30/24 11:45 Pleural Fluid Body Fluid Culture - Final Complete 05/28/24 22:36 Urine - Catheterized Urine Culture - Final Enterobacter cloacae Escherichia coli Enterococcus faecalis - VRE Complete Labs and/or images reviewed: Labs reviewed by me, Image(s) reviewed by me Problem List/Assessment/Plan Problem List/Assessment/Plan NEURO: Acute metabolic encephalopathy likely due to sepsis History of seizure Patient is sedated and on mechanical ventilation, RASS scores -2 History of seizure during last admission(1 month back) used Keppra for 1 week Discontinued Keppra, on 06/16 EEG shows abnormal EEG recording consistent with the presence of a diffuse nonspecific encephalopathic state CARDIOVASCULAR: Hypertension Continue injection hydralazine 10 mg q.6 hours as needed Increase metoprolol to 50 mg b.i.d., Continue amlodipine 10 mg, hydralazine 100 mg t.i.d. Started clonidine 0.1 mg twice daily 07/01. Clonidine increased to 0.2 mg b.i.d. 07/03 Final blood culture 06/28 shows no growth PULMONARY: Acute Hypoxic Respiratory Failure likely due to pneumonia Septic shock likely due to pneumonia, improved Pneumonia likely due to MRSA and Enterobacter cloacae - Patient is sedated and mechanically ventilated with PEEP of 30% - CT scan shows [id number] left pleural effusion - MRSA nares screening, COVID-19 and flu are negative - Bronchoscopy performed on 06/11, there was some thin mucus secretion on bilateral side, bronchial lavage of right lower lobe and left lower lobe was performed, and the culture results shows Pseudomonas aeruginosa and Enterobacter baumanni, MDR; ID has been consulted - Sputum culture from bronchoalveolar lavage from 05/24/24 shows MRSA, Enterobacter cloacae - Blood culture from the 06/02/24 shows Staphylococcus epidermidis , Staph hominis - Repeat culture from 06/09/2024 shows no growth - Stopped IV linezolid, given for 11 days, discontinued meropenem, started on 06/08 and given for 12 days - discontinued N-acetylcysteine 07/01 - Breathing treatment q.6 hours p.r.n. -started fentanyl patch 25 mcg 07/01 - bronchoscopy completed 07/05 showed left lower lobe atelectasis due to mucus plugging and right lower lobe mucous plugging. GI - GI ppx: omeprazole 20mg daily via OG tube - Hepatitis-C virus antibody positive - Repeat stool occult blood test is negative - CT abdominopelvic without contrast shows no evidence of intra-abdominal hemorrhage - Tracheostomy is performed on 06/13 - PEG tube is placed on 06/15 - Bowel regimen: Lactulose 30 mL b.i.d. change to p.r.n. 07/01 : FROYLAN, possible VMN on ESRD requiring hemodialysis - Nephrology consulted, epoetin morena 72304 units SC post dialysis. Radiology for tunneled hemodialysis catheter when the blood culture negative for 72 hours - Stopped Bumix 1mg BID - creatinine increased to 3.91 from 3.64 - Homer catheter placed on left internal jugular, on 06/26, removed on 07/04 - tunneled catheter placed to the right upper chest 07/04 - hemodialysis completed 07/02 and 07/04 and 07/07 UTI, urinalysis shows UTI picture - Urine culture from 05/28/2024 shows Enterobacter, E coli, Enterococcus faecalis Status post right lower limb, AKA likely due to PAD Decubitus ulcer - There are multiple stage 3-4 sacral ulcers draining pus - position changing every 2 hours and dressing -started fentanyl patch 25 mcg 07/01 HEME Severe anemia, transfused 4 pack of red blood cells Thrombocytopenia - current HB is 8 ID: - Sputum culture from bronchoalveolar lavage from 05/24/24 shows MRSA, Enterobacter cloacae - Blood culture from the 06/02/24 shows Staphylococcus epidermidis , Staph hominis - Repeat culture from 06/09/2024 shows no growth - culture results from BAL from 06/11 shows Pseudomonas aeruginosa and Enterobacter baumanni, MDR - discontinued IV linezolid starting 06/28 and meropenem starting 06/25, discontinued in 07/03 - previously received vancomycin - catheter site culture 06/25 completed shows MRSA, Acinetobacter baumannii MDRO, Enterococcus faecalis. SKIN Possible keloid - There is a growth on the left shoulder, per son, lesion has been present for several years - Follow up on outpatient basis Metabolic: Hypernatremia, improved Hypokalemia, discontinued potassium supplementation given ESRD Hyperkalemia, improved Mild hyponatremia, monitoring Hypoglycemic episodes, improved Hypomagnesemia, supplemented LINES/DRAINS/ACCESS: ETT, intubated on 05/28/2024 and tracheostomy performed on 06/11, PEG tube placed on 06/15 IV access Left internal jugular CVC, placed on 06/26 and removed on 07/04 Right IJ hemodialysis catheter placed 07/04 Suprapubic catheter, changed on 06/02/2020 Dripps: Fentanyl patch 25 mg No pressor DIET: Jevity 1.2 john 60 mL/hour DVT prophylaxis Heparin 2000 units Disposition: social services analyst consulted for transfer to the [facility] critical care time including review of charts, discussing case with patient's nurse, excluding procedures is 42 mins CODE STATUS: Full code Plan discussed with patient and his son over the phone call in which all questions have been answered. Plan discussed with: Patient Dietary Evaluation Review Comments: 1) If GI is assessible consider Jevity 1.2 @ 60 ml/hr x24 hrs goal rate as tolerated 2) If pt remains NPO >7 days consider TPN to meet at least 75% of estimated needs 3) Advance pt diet when medically feasible to a Cardiac/Renal Specific K2,2gmNA,low phos,60g Pro diet modified per MVA OPERATOR recommendations 4) Continue current plan of care Expected Outcomes/Goals: 1) Pt to receive adequate nutrition support 2) Pt diet to advance CC Plasma Assessment Blood Product Administration S: [id number] Date of Service: Jul 07, 2024 Billing Provider: HOLGER ISABEL MD Common Visit Codes: [id number]-[id number] CARE 30-74 MIN THA CRISOSTOMO RESIDENT Jul 07, 2024 19:37 HOLGER ISABEL MD Jul 08, 2024 13:29
[2024-07-07] MEDS: EPOETIN ALFA-EPBX 10,000 UNIT/1ML VIAL SC ONE (20:56)
[2024-07-07] MEDS: hydrALAZINE HCL 25 MG TAB PO SCH (21:47)
[2024-07-08] VITALS (35 sets, daily range): BP systolic 123–188; BP diastolic 61–85; PULSE 62–92; RESP 10–25; TEMP 97.7–98.2; O2SAT 83–100
[2024-07-08 06:03] LABS: Basophils # (auto) 0 10 ^3/uL (0-0.2); Eosinophils # (auto) 0.3 10 ^3/uL (0-0.8); Monocytes # (auto) 0.5 10 ^3/uL (0-1.3); Neutrophils # (auto) 3.7 10 ^3/uL (1.6-8.6); Red Blood Cells 2.21 10^6/uL (4.5-5.90); White Blood Cell 5.6 10^3/uL (4.4-10.8)
[2024-07-08 06:06] LABS: Basophils % (auto) 0.7 % (0.0-2.0); Eosinophils % (auto) 5.7 % (0.0-7.0); Hematocrit 21.8 % (41.0-53.0); Hemoglobin 7.3 g/dL (13.5-17.5); Lymphocytes % (auto) 18.1 % (10.0-50.0); Mean Corpuscular Hemoglobin 33.1 pg (28.0-32.0); Mean Corpuscular Hgb Conc. 33.5 g/dL (32.0-36.0); Mean Corpuscular Volume 98.9 fL (80.0-100.0); Monocytes % (auto) 8.8 % (0.0-12.0); Neutrophils % (auto) 66.7 % (37.0-80.0); Nucleated Red Blood Cells % 0.3 %; Platelet Count (auto) 128 10^3/uL (140-450)
[2024-07-08 06:08] LABS: Anion Gap 4 (5-15); Chloride 104 mmol/L (98-107); Sodium 142 mmol/L (136-145)
[2024-07-08 06:15] LABS: BUN/Creatinine Ratio 8.1 (10.0-20.0); Blood Urea Nitrogen 20 mg/dL (9-23); Magnesium 1.7 mg/dL (1.6-2.6)
[2024-07-08 06:17] LABS: Calcium 8.7 mg/dL (8.7-10.4); Carbon Dioxide 34 mmol/L (20-31); Glucose 110 mg/dL (74-106)
[2024-07-08 06:23] LABS: Red Cell Distribution Width 20.6 % (11.8-14.3)
--- NOTE | 2024-07-08 07:32 | DVH ---
CHEST RADIOGRAPH Indication: ACUTE REPIRATORY FAILURE Technique: Single frontal view of the chest was obtained Comparison: XY CHEST XRAY 1 VIEW on DOS: 07/03/24 FINDINGS: Lines and Tubes: Right central venous catheter terminates in the superior cavoatrial junction new sin ce prior exam. Left PICC terminates in the superior vena cava. Tracheostomy tube noted. Left central venous catheter has been removed. Lungs: Bilateral airspace opacities noted. Pleura: No effusion. No pneumothorax. Cardiomediastinal contours: Pneumomediastinum and pneumopericardium new since prior study. Stable siz e of the cardiovascular silhouette. Bones: No acute osseous abnormality. Chest wall: Left neck subcutaneous emphysema. IMPRESSION: 1. Interval placement of a right central venous catheter with the tip terminating in the superior cav oatrial junction. Removal of the left central venous catheter. 2. Interval development of pneumomediastinum and pneumopericardium. 3. Bilateral opacities.
--- NOTE | 2024-07-08 08:11 | DVH ---
Procedure: CT CHEST WITHOUT CONTRAST Reason for study/Clinical History: subcutaneous emphysema Comparison Study: Chest radiograph performed on 07/08/2024. Exam Date: 07/08/2024 07:47 AM TECHNIQUE: Multidetector CT of the chest was performed from the lung apices to the upper abdomen with out the use of intravenous contract. Coronal and sagittal multiplanar reformats were performed. Radiation Dose Information: CT Dose: CTDI volume is 11.88 mGy. Dose-length product is 461.63 mGy*cm The dose indicators for CT are the volume Computed Tomography (CT) Dose Index (CTDIvol) and the Dose Length Product (DLP), and are measured in units of mGy and mGy-cm, respectively. These indicators are not patient dose, but values generated from the CT scanner acquisition factors. The report includes radiation exposure data for exposures received during this examination. FINDINGS: Support lines and tubes: Tracheostomy tube terminates at the thoracic inlet. Right central venous ca theter terminates in the superior vena cava. There is a left PICC with its tip terminating in the sup erior vena cava. Lower neck: Normal thyroid. Lungs: Bilateral lower lobe opacities. Central airways: The trachea is patent. There is circumferential wall thickening of the trachea. Se cretions in the right mainstem bronchus. Pleura: Small left and trace right pleural effusion. Heart/Vascular Structures: Normal heart size. No pericardial effusion. Coronary artery calcifications . Lymph Nodes: No adenopathy Mediastinum: Diffuse pneumopericardium and pneumomediastinum. Musculoskeletal: No acute osseous abnormality. Multilevel thoracic spondylosis. Posterior fusion in t he lumbar spine. Soft tissues: Normal. Upper abdomen: Limited portions of the upper abdomen are unremarkable. IMPRESSION: 1. Pneumomediastinum and pneumopericardium. 2. Bilateral pleural effusions, left slightly greater than right. Bilateral lower lobe opacities comp atible with compressive atelectasis. Radiation optimization: All CT scans at this facility use at least one of these dose optimization maritza hniques: automated exposure control mA and/or kV adjustment per patient size (includes targeted exam s where dose is matched to clinical indication) or iterative reconstruction.
[2024-07-08] MEDS: fentaNYL Drip 2500mCg/250mlNS 250 ML IV SCH (08:13)
[2024-07-08] MEDS: ENOXAPARIN SOD 30 MG/0.3 ML SYRINGE SC SCH (09:56)
[2024-07-08 10:52] LABS: Base Excess 7.4 mmol/L (-2.0-3.0)
--- NOTE | 2024-07-08 10:58 | DVHPN2 ---
Progress Note Date Seen: Jul 08, 2024 Has the PT tested + for MRSA If YES, has PT been informed?: Yes Medical Necessity Reason Pt with a Central, PICC or Fol: Yes The following are medically ne: Rubio Catheter Reason for rubio catheter: Strict I&O Subjective Review of Systems: RESPIRATORY:Abnormal Objective vital signs Vital Sign Date Time Temp Pulse Resp B/P (MAP) Pulse Ox O2 Delivery O2 Flow Rate FiO2 07/08/24 10:00 75 25 148/73 (98) 95 07/08/24 10:00 T-piece 6 28 28 07/08/24 08:00 97.7 97.7 Total Intake and Output 07/07/24 07/07/24 07/08/24 15:00 23:00 07:00 Intake Total 500 ml 1009 ml Output Total 300 ml 210 ml Balance 200 ml 799 ml medications Current Medications Medications Dose Ordered Sig/[place] Route Start Time Stop Time Status Last Admin Dose Admin Amlodipine Besylate 10 mg DAILY PO 06/10/24 10:00 07/08/24 09:54 10 MG Enoxaparin Sodium 40 mg DAILY SC 06/10/24 10:00 UNV Enoxaparin Sodium 40 mg DAILY SC 06/17/24 10:00 UNV Epoetin Calin-epbx 10,000 unit TUTHSA SC 06/17/24 12:00 Hold 06/28/24 08:25 10,000 UNIT Sodium Chloride 10 ml QSHIFT@10,22 IV 06/17/24 22:00 07/08/24 09:55 10 ML Acetaminophen 650 mg Q6HP PRN GT 06/20/24 11:30 06/28/24 17:05 650 MG Hydralazine HCl 10 mg Q4HP PRN IV 06/24/24 16:45 07/08/24 08:03 10 MG Omeprazole 20 mg DAILY GT 06/26/24 10:00 07/08/24 09:55 20 MG Albuterol 2.5 mg Q6HPRN PRN NEB 06/28/24 11:30 07/08/24 06:58 2.5 MG Lactulose 30 ml [id number] PRN PEG 07/01/24 10:15 Metoprolol Tartrate 50 mg BID PO 07/01/24 22:00 07/08/24 09:54 50 MG Fentanyl 25 mcg Q72H TD 07/01/24 17:30 07/04/24 17:54 25 MCG Enteral Nutritional Formula 1,000 ml 60ML/HR GT 07/02/24 11:00 07/08/24 04:40 1,000 ML Clonidine HCl 0.2 mg BID PO 07/03/24 22:00 07/08/24 09:55 0.2 MG Enoxaparin Sodium 30 mg DAILY SC 07/08/24 10:00 07/08/24 09:56 30 MG Hydralazine HCl 100 mg Q8HR PO 07/07/24 22:00 07/08/24 05:43 100 MG Fentanyl Citrate 250 ml @ 2.5 mls/hr Q24H IV 07/08/24 07:45 07/08/24 08:13 2.5 MLS/HR Examination: GENERAL:Abnormal, HEENT:Abnormal, NECK:Abnormal, LUNGS:Abnormal, CVS:Abnormal, ABDOMEN:Abnormal, SKIN:Abnormal, NEURO:Abnormal laboratory and microbiology Laboratory Tests 07/08/24 04:51 Test 07/08/24 04:51 Range/Units Serum Glucose 110 H 74-106 mg/dL Microbiology Date/Time Source Procedure Growth Status 06/28/24 15:27 Blood Blood Culture - Final NO GROWTH AFTER 5 DAYS OF INCUBATION. Complete 06/25/24 08:20 Catheter Site Aerobic Culture - Final Methicillin Resistant S.aureus Acinetobacter baumannii MDRO Enterococcus faecalis Complete 06/11/24 16:06 Bronchial Washings Gram Stain - Final Complete 06/11/24 16:06 Respiratory Culture - Final Acinetobacter baumannii Pseudomonas aeruginosa Complete 05/30/24 11:45 Pleural Fluid Gram Stain - Final Complete 05/30/24 11:45 Pleural Fluid Body Fluid Culture - Final Complete 05/28/24 22:36 Urine - Catheterized Urine Culture - Final Enterobacter cloacae Escherichia coli Enterococcus faecalis - VRE Complete Problem List/Assessment/Plan Problem List/Assessment/Plan Severe FROYLAN on CKD four now on hemodialysis Acute respiratory failure advanced a chronic respiratory failure status post trach now trach to wall oxygen Septic shock resolved due to multidrug resistant organisms Peripheral artery disease Coronary artery disease Severe protein calorie malnutrition Status post hemodialysis treatment yesterday Daily assessment for hemodialysis needs next treatment based on clinical assessment will be either Sunday or recommending approximately 3 times per week hemodialysis treatment Continue to monitoring urinary output and strict Is&Os Avoid nonsteroidal anti-inflammatory drugs or contrast agents Plan discussed with: Patient Dietary Evaluation Review Comments: 1) If GI is assessible consider Jevity 1.2 @ 60 ml/hr x24 hrs goal rate as tolerated 2) If pt remains NPO >7 days consider TPN to meet at least 75% of estimated needs 3) Advance pt diet when medically feasible to a Cardiac/Renal Specific K2,2gmNA,low phos,60g Pro diet modified per TOGGLER recommendations 4) Continue current plan of care Expected Outcomes/Goals: 1) Pt to receive adequate nutrition support 2) Pt diet to advance Critical Care Time (mins): 33 CC Plasma Assessment Blood Product Administration S: [id number] ANNA ROMERO MD Jul 08, 2024 10:58
--- NOTE | 2024-07-08 12:02 | DVHNC2 ---
Procedure - Tracheostomy Tube Exchange A routine tracheostomy tube change was performed at the bedside. Emergent procedure as patient was desaturating. Pt had emergent CT chest that demonstrates trach outside of tracheal rings within the mediastinum. Pt was desaturating. [place] protocol was followed throughout. The patient was placed in the supine position with the neck extended. The original tracheostomy tube was examined, and the stoma appeared to be healing well with no signs of infection, bleeding, irritation, or wound breakdown. A fiberoptic exam was performed through the lumen of the existing tube, which demonstrated that the current tracheostomy tube was in position in the center of the airway. There wer e no signs of granulation tissue or airway irritation. A suction catheter was used to clear the tracheostomy tube and trachea or secretions. The sutures securing the tracheostomy tube to the skin were cut, and the trach ties were undone. The balloon on the existing trach was deflated. The existing trach was gently removed, and patency of the stomal opening was maintained. The tract was examined, and appeared to be healing appropriately. Using a fiberoptic bronchoscope, a new Shiley 6 XLT tracheostomy tube was placed through the stoma. The fiberoptic bronchoscope was placed through the lumen of the new tube to confirm positioning. The tube appeared to be in good position, without abutting the mcconnell of the trachea. The balloon on the trach was inflated. The tube was secured with Velcro ties. The patient tolerated the procedure well with no desaturations or complications. CPT 16416 Subjective: I was called emergently to the bedside. Patient was desaturating. He was in respiratory distress. He was developing Subcutaneous emphysema around the neck. Objective: Physical examination: Gen.: Patient lying in bed in medical KINJAL. trach on trach collar Head: Normocephalic, atraumatic. Eyes: PERRLA. Ears: Normal external anatomy. Throat: Trach tube in place. Neck: Supple, trachea midline. Chest: Decreased breath sounds bilaterally. Decreased air entry bilaterally. No wheezing. Bibasilar crackles. Cardio vascular: Positive S1, positive S2. Regular rate and rhythm. Abdomen: Positive bowel sounds in all 4 quadrants. Soft, nontender, nondistended. : Peralta in place. Normal external genitalia. Rectal: Deferred Skin: Warm, dry. Intact. Extremities: 2+ radial pulses bilaterally. No lower extremity edema. Neuro: Awake, alert. Impression: Acute on chronic hypoxic respiratory failure Dislodged tracheostomy tube Subcutaneous emphysema Mucus plugging Plan: CT chest was reviewed. Dislodged tracheostomy tube anteriorly. Removed tracheostomy in place patient on nasal cannula. He was breathing comfortably on O2 saturations improved. Emergently replaced the tracheostomy tube as noted above. Tracheostomy stoma has not completely formed. A new false lumen was created anteriorly likely due to patient's chronic coughing. Despite replacing with a new Shiley eight tracheostomy tube, patient was c oughing vigorously and we were unable to advance suction catheter through tracheostomy. Replaced with a new Shiley 6 XLT tracheostomy tube. We were now able to advance suction catheter smoothly. Place patient on mechanical ventilation. Can transition to trach collar as tolerated. Rest of plan as per primary team. Condition: Critical Prognosis: Poor given multiple comorbidities. Rest of plan per hospitalist and other consultants. A total of 35 minutes of critical care time was spent reviewing the patient record, examining the patient, making a diagnostic and therapeutic plan, discussing this plan with the medical personnel, following up on diagnostic studies and following the patient for clinical stability excluding any and all procedures. At least 50% of this time was spent in direct, [id number] contact. Thank you Dr. Baez for allowing me to participate in this patient's care. Further recommendations will depend on patient's clinical course. Please do not hesitate to contact me if you have any questions or concerns. This medical document was created using an electronic medical record system with [employer] dictation system. Although this document has been carefully reviewed, there may still be some phonetic and typographical errors. These areas are purely typographical due to imperfections of the software programs, and do not reflect any compromise in the patient's medical care. D/w Dr Baez, RT Mary, DORCAS Avalos. ELIANE ALTAMIRANO MD Jul 08, 2024 12:02
--- NOTE | 2024-07-08 12:05 | DVHNC2 ---
Procedure - Therapeutic Bronchoscopy procedure note: Indications: Left lower lobe atelectasis, Possible mucous plugging. Medicines: See CORPORATE SAFETY DIRECTOR notes. Complications: None Procedure: Patient medications and allergies reviewed. The risks and benefits of the proce dure and the sedation options and risk were discussed with the patient's healthcare proxy. All questions were answered and informed consent was obtained. Patient identification and proposed procedure were verified prior to the procedure by the physician, and a nurse, and the respiratory therapist in ICU room. The heart rate, respiratory rate, oxygen saturations, blood pressure, adequacy of pulmonary ventilation, and response to care were monitored throughout the procedure. The physical status of the patient was reassessed after the procedure. After obtaining informed consent, the bronchoscope was introduced through the endotracheal tube and advanced into the trachea bronchial tree of both lungs. The procedure was accomplished without difficulty. The patient tolerated the procedure well. Findings: The trachea is in normal caliber. The chacho is sharp. The tracheobronchial tree of the right lung was examined to at least the first subsegmental level. The bronchial mucosa and anatomy in the right lung are normal. There are no endobronchial lesions. There was copious blood tinged white secretions from right main stem bronchus onward throughout R6-R10. There was clotted blood in RML and RLL likely from aspirated stoma irritation. The left upper lobe, lingula, and left lower lobe were examined to at least the first subsegmental level. Bronchial mucosa and anatomy in the left upper lobe and lingula are normal. There were no endobronchial lesions. There were no secretions. There was no active bleeding at the completion of the procedure. Estimated blood loss: Less than 5 mL. Impression: Left lower lobe atelectasis due to mucous plugging Mucous plugging from L6-L10 RML BAL performed Recommendation: Follow-up RML BAL results. Procedure codes: 82297, bronchoscopy, rigid and flexible, including fluoroscopic guidance, one performed; with bronchial endobronchial removal of mucous plugs, single or multiple sites ELIANE ALTAMIRANO MD Jul 08, 2024 12:05
--- NOTE | 2024-07-08 14:29 | DVHPNRES ---
Progress Note Date Seen: Jul 08, 2024 Resident Creating Document: THA CRISOSTOMO RESIDENT Has the PT tested + for MRSA If YES, has PT been informed?: Yes Medical Necessity Reason Pt with a Central, PICC or Fol: Yes The following are medically ne: Rubio Catheter Reason for rubio catheter: Strict I&O Subjective Review of Systems This is a 65-year-old male with past medical history of CHF, CKD, COPD, dyslipidemia, hypertension, CVA brought to the hospital with shortness of breaths and at the level of consciousness. Admitted and intubated on 05/28, extubated on 06/09 but reintubated on 06/10. Epigastric performed on 06/13, PEG tube placed on 06/15. 07/01 - Patient seen and examined at bedside. Overnight no events, patient made 150 cc of urine in the morning and 125 cc in the night. Multiple bowel movements 500 cc on 06/30, 250 cc on the night of 07/01 and 200 on the morning of 07/01. Lactulose changed to p.r.n.. Patient is intubated and mechanically ventilated. Patient is satting 97% on trach collar via 6 L oxygen supplementation for the past 24 hours. He is not on pressor support. On fentanyl 20 mcg. Increase metoprolol to 50 mg b.i.d. and started clonidine 0.1 mg b.i.d.. Started fentanyl patch 25 mcg. IV fentanyl will be discontinued after overlapping her 4-5 hours with fentanyl patch. 07/02 - overnight patient made 100 mL of urine. 50 mL of output was drain from colostomy bag. Otherwise no events. Patient seen and examined at bedside. He underwent dialysis this morning and 2.5 L were drained. Chest x-ray reviewed shows worsening left-sided infiltrate. Patient is satting 98% on 3 color with 6 L oxygen supplementation. 07/03 - overnight colostomy bag was leaking so it was changed. Patient had 50 mL urine output in the awake overnight counselor, 115 mL during the of the of 07/02. Colostomy bag was drained with 50 mL of contents. Patient is still hypotensive systolic ranging in 150s to 160s therefore clonidine increased to 0.2 mg b.i.d.. Creatinine trending down to 3.2. Tunnel catheter consent obtained. IR consulted. NPO starting morning. Final blood culture 06/28 shows no growth. IV antibiotics discontinued. 07/04 - overnight patient had 200 mL of colostomy output. Urine output 125 in the day of 07/03 and 150 in the awake overnight counselor. Tunneled catheter placed to the right upper chest. DC left IJ catheter once dialysis session completed. Undergoing dialysis session today. 07/07 - patient seen and examined in the bedside. Underwent dialysis today. Over the weekend bronchoscopy completed 07/05 showed left lower lobe atelectasis due to mucus plugging and right lower lobe mucous plugging. 07/08 - pt desatted to 70s in the morning. CXR shows air in the subcutaneous tiisues. CT chest w/o ordered, showed Pneumomediastinum and pneumopericardium. Bilateral pleural effusions, left slightly greater than right. Bilateral lower lobe opacities compatible with compressive atelectasis. o2 supp increased to 10L from 6, and fio2 increased to 100%. Pt underwent bronch,showed Left lower lobe atelectasis due to mucous plugging. Mucous plugging from L6-L10. Pt switched to ventilator and IV fent started. Facial swelling resolving. Objective vital signs Vital Sign Date Time Temp Pulse Resp B/P (MAP) Pulse Ox O2 Delivery O2 Flow Rate FiO2 07/08/24 13:27 128/61 07/08/24 13:00 64 22 97 07/08/24 12:00 97.9 97.9 07/08/24 12:00 T-piece 6 28 28 Total Intake and Output 07/07/24 07/07/24 07/08/24 15:00 23:00 07:00 Intake Total 500 ml 1009 ml Output Total 300 ml 210 ml Balance 200 ml 799 ml medications Current Medications Medications Dose Ordered Sig/[place] Route Start Time Stop Time Status Last Admin Dose Admin Amlodipine Besylate 10 mg DAILY PO 06/10/24 10:00 07/08/24 09:54 10 MG Enoxaparin Sodium 40 mg DAILY SC 06/10/24 10:00 UNV Enoxaparin Sodium 40 mg DAILY SC 06/17/24 10:00 UNV Epoetin Morena-epbx 10,000 unit TUTHSA SC 06/17/24 12:00 Hold 06/28/24 08:25 10,000 UNIT Sodium Chloride 10 ml QSHIFT@10,22 IV 06/17/24 22:00 07/08/24 09:55 10 ML Acetaminophen 650 mg Q6HP PRN GT 06/20/24 11:30 06/28/24 17:05 650 MG Hydralazine HCl 10 mg Q4HP PRN IV 06/24/24 16:45 07/08/24 08:03 10 MG Omeprazole 20 mg DAILY GT 06/26/24 10:00 07/08/24 09:55 20 MG Albuterol 2.5 mg Q6HPRN PRN NEB 06/28/24 11:30 07/08/24 06:58 2.5 MG Lactulose 30 ml [id number] PRN PEG 07/01/24 10:15 Metoprolol Tartrate 50 mg BID PO 07/01/24 22:00 07/08/24 09:54 50 MG Fentanyl 25 mcg Q72H TD 07/01/24 17:30 07/04/24 17:54 25 MCG Enteral Nutritional Formula 1,000 ml 60ML/HR GT 07/02/24 11:00 07/08/24 04:40 1,000 ML Clonidine HCl 0.2 mg BID PO 07/03/24 22:00 07/08/24 09:55 0.2 MG Enoxaparin Sodium 30 mg DAILY SC 07/08/24 10:00 07/08/24 09:56 30 MG Hydralazine HCl 100 mg Q8HR PO 07/07/24 22:00 07/08/24 13:27 100 MG Fentanyl Citrate 250 ml @ 2.5 mls/hr Q24H IV 07/08/24 07:45 07/08/24 08:13 2.5 MLS/HR Examination Patient lying in bed, in no acute distress. Patient is alert and following commands General: afebrile, palor, mucosae are moist. Resolving facial swelling. Cardiovascular: Regular S1 and S2. No murmurs, gallops or rubs. No JVD elevation. Bilateral pitting edema. Respiratory: Decreased but equal Bilateral air entry. Saturating 97% with 6 L supplementation via tracheostomy. Abdomen: Soft, nontender, nondistended, normoactive bowel sounds, no rebound tenderness, no organomegaly, no masses. Suprapubic catheter seen draining urine and colostomy bag seen draining 10 mL of dark yellow which is liquid in consistency. Peg tube in place. Genitourinary: Stage III sacral ulcer, skin non intact, draining pus and erythema noted. MSK/skin: Limb movement can not be assessed. Skin is dry and warm Neurological: Pupils are isocoric and reactive. laboratory and microbiology Laboratory Tests 07/08/24 04:51 Test 07/08/24 04:51 Range/Units Serum Glucose 110 H 74-106 mg/dL Microbiology Date/Time Source Procedure Growth Status 06/28/24 15:27 Blood Blood Culture - Final NO GROWTH AFTER 5 DAYS OF INCUBATION. Complete 06/25/24 08:20 Catheter Site Aerobic Culture - Final Methicillin Resistant S.aureus Acinetobacter baumannii MDRO Enterococcus faecalis Complete 06/11/24 16:06 Bronchial Washings Gram Stain - Final Complete 06/11/24 16:06 Respiratory Culture - Final Acinetobacter baumannii Pseudomonas aeruginosa Complete 05/30/24 11:45 Pleural Fluid Gram Stain - Final Complete 05/30/24 11:45 Pleural Fluid Body Fluid Culture - Final Complete 05/28/24 22:36 Urine - Catheterized Urine Culture - Final Enterobacter cloacae Escherichia coli Enterococcus faecalis - VRE Complete Labs and/or images reviewed: Labs reviewed by me, Image(s) reviewed by me Problem List/Assessment/Plan Problem List/Assessment/Plan NEURO: Acute metabolic encephalopathy likely due to sepsis History of seizure History of stroke - Old infarct in the right frontal lobe and right parietal occipital lobe Patient is sedated and on mechanical ventilation, RASS scores -2 History of seizure during last admission(1 month back) used Keppra for 1 week Discontinued Keppra, on 06/16 EEG shows abnormal EEG recording consistent with the presence of a diffuse nonspecific encephalopathic state CARDIOVASCULAR: Hypertension Continue injection hydralazine 10 mg q.6 hours as needed Increase metoprolol to 50 mg b.i.d., Continue amlodipine 10 mg, hydralazine 100 mg t.i.d. Started clonidine 0.1 mg twice daily 07/01. Clonidine increased to 0.2 mg b.i.d. 07/03 Final blood culture 06/28 shows no growth PULMONARY: Acute Hypoxic Respiratory Failure likely due to pneumonia Septic shock likely due to pneumonia, improved Pneumonia likely due to MRSA and Enterobacter cloacae Pneumomediastinum and pneumopericardium - Patient is sedated and mechanically ventilated with PEEP of 30% - CT scan shows [id number] left pleural effusion - MRSA nares screening, COVID-19 and flu are negative - Bronchoscopy performed on 06/11, there was some thin mucus secretion on bilateral side, bronchial lavage of right lower lobe and left lower lobe was performed, and the culture results shows Pseudomonas aeruginosa and Enterobacter baumanni, MDR; ID has been consulted - Sputum culture from bronchoalveolar lavage from 05/24/24 shows MRSA, Enterobacter cloacae - Blood culture from the 06/02/24 shows Staphylococcus epidermidis , Staph hominis - Repeat culture from 06/09/2024 shows no growth - Stopped IV linezolid, given for 11 days, discontinued meropenem, started on 06/08 and given for 12 days - discontinued N-acetylcysteine 07/01 - Breathing treatment q.6 hours p.r.n. -started fentanyl patch 25 mcg 07/01 - bronchoscopy completed 07/05 showed left lower lobe atelectasis due to mucus plugging and right lower lobe mucous plugging. - 07/08 - pt desatted to 70s in the morning. CXR shows air in the subcutaneous tissues. CT chest w/o ordered, showed Pneumomediastinum and pneumopericardium. Bilateral pleural effusions, left slightly greater than right. Bilateral lower lobe opacities compatible with compressive atelectasis. o2 supp increased to 10L from 6, and fio2 increased to 100%. Pt underwent bronch,showed Left lower lobe atelectasis due to mucous plugging. Mucous plugging from L6-L10. GI - GI ppx: omeprazole 20mg daily via OG tube - Hepatitis-C virus antibody positive - Repeat stool occult blood test is negative - CT abdominopelvic without contrast shows no evidence of intra-abdominal hemorrhage - Tracheostomy is performed on 06/13 - PEG tube is placed on 06/15 - Bowel regimen: Lactulose 30 mL b.i.d. change to p.r.n. 07/01 : FROYLAN, possible VMN on ESRD requiring hemodialysis - Nephrology consulted, epoetin morena 28600 units SC post dialysis. Radiology for tunneled hemodialysis catheter when the blood culture negative for 72 hours - Stopped Bumix 1mg BID - creatinine increased to 3.91 from 3.64 - Homer catheter placed on left internal jugular, on 06/26, removed on 07/04 - tunneled catheter placed to the right upper chest 07/04 - hemodialysis completed 07/02 and 07/04 and 07/07 UTI, urinalysis shows UTI picture - Urine culture from 05/28/2024 shows Enterobacter, E coli, Enterococcus faecalis Status post right lower limb, AKA likely due to PAD Decubitus ulcer - There are multiple stage 3-4 sacral ulcers draining pus - position changing every 2 hours and dressing -started fentanyl patch 25 mcg 07/01 HEME Severe anemia, transfused 4 pack of red blood cells Anemia of chronic disease Thrombocytopenia - current HB is 7.3 - Retacrit T/TH/SAT ID: - Sputum culture from bronchoalveolar lavage from 05/24/24 shows MRSA, Enterobacter cloacae - Blood culture from the 06/02/24 shows Staphylococcus epidermidis , Staph hominis - Repeat culture from 06/09/2024 shows no growth - culture results from BAL from 06/11 shows Pseudomonas aeruginosa and Enterobacter baumanni, MDR - discontinued IV linezolid starting 06/28 and meropenem starting 06/25, discontinued in 07/03 - previously received vancomycin - catheter site culture 06/25 completed shows MRSA, Acinetobacter baumannii MDRO, Enterococcus faecalis. SKIN Possible keloid - There is a growth on the left shoulder, per son, lesion has been present for several years - Follow up on outpatient basis Metabolic: Hypernatremia, improved Hypokalemia, discontinued potassium supplementation given ESRD Hyperkalemia, improved Mild hyponatremia, monitoring Hypoglycemic episodes, improved Hypomagnesemia, supplemented LINES/DRAINS/ACCESS: ETT, intubated on 05/28/2024 and tracheostomy performed on 06/11, PEG tube placed on 06/15 IV access Left internal jugular CVC, placed on 06/26 and removed on 07/04 Right IJ hemodialysis catheter placed 07/04 Suprapubic catheter, changed on 06/02/2024 Dripps: Fentanyl patch 25 mg No pressor DIET: Jevity 1.2 john 60 mL/hour DVT prophylaxis Lovenox 30mg SC daily Disposition: manager social consulted for transfer to the [facility]. Will be transfered to [facility] in [facility] or [facility]. critical care time including review of charts, discussing case with patient's nurse, and son, management of trach dislodgement/subcut emphysema excluding procedures is 82 mins CODE STATUS: Full code Plan discussed with patient and his son over the phone call in which all questions have been answered. Case discussed with Dr. Isabel. Plan discussed with: Patient, Son (over the phone) My Orders My Orders Orders - THA CRISOSTOMO RESIDENT Procedure Category Date Status Time Enoxaparin Sodium PHA 07/08/24 In Process (Lovenox) 10:00 Hydralazine Hcl PHA 07/07/24 In Process Tablet (Apresoline 22:00 Chest Portable XY 07/08/24 Resulted 06:[address] 07/08/24 Resulted 07:21 Fentanyl Drip PHA 07/08/24 In Process 2500mcg/250mlns 07:45 Rass Sedation Scale SUZAN 07/08/24 In Process 07:31 Abg W/ Co-Ox RT 07/08/24 Logged 07:34 Dietary Evaluation Review Comments: 1) If GI is assessible consider Jevity 1.2 @ 60 ml/hr x24 hrs goal rate as tolerated 2) If pt remains NPO >7 days consider TPN to meet at least 75% of estimated needs 3) Advance pt diet when medically feasible to a Cardiac/Renal Specific K2,2gmNA,low phos,60g Pro diet modified per SPREADING MACHINE OPERATOR recommendations 4) Continue current plan of care Expected Outcomes/Goals: 1) Pt to receive adequate nutrition support 2) Pt diet to advance CC Plasma Assessment Blood Product Administration S: [id number] Date of Service: Jul 08, 2024 Billing Provider: HOLGER ISABEL MD Common Visit Codes: 61829-GNTBEZLQ CARE 30-74 MIN, 05914-PSHHZFTT CARE-EACH +30MIN THA CRISOSTOMO Jul 08, 2024 14:29 HOLGER ISABEL MD Jul 09, 2024 15:11
[2024-07-08 14:58] LABS: % Iron Saturation 23.9 % (20-55)
--- NOTE | 2024-07-08 23:43 | DVHPN2 ---
Consult Progress Note Date Seen: Jul 08, 2024 Subjective Patient reports: Feels better (no diarrhea or rash) Objective vital signs Vital Sign Date Time Temp Pulse Resp B/P (MAP) Pulse Ox O2 Delivery O2 Flow Rate FiO2 07/08/24 22:30 66 20 134/68 (90) 96 07/08/24 22:00 T-piece 6 28 28 07/08/24 20:00 98.2 98.2 Total Intake and Output 07/07/24 07/07/24 07/08/24 15:00 23:00 07:00 Intake Total 500 ml 1009 ml Output Total 300 ml 210 ml Balance 200 ml 799 ml medications Current Medications Medications Dose Ordered Sig/[place] Route Start Time Stop Time Status Last Admin Dose Admin Amlodipine Besylate 10 mg DAILY PO 06/10/24 10:00 07/08/24 09:54 10 MG Enoxaparin Sodium 40 mg DAILY SC 06/10/24 10:00 UNV Enoxaparin Sodium 40 mg DAILY SC 06/17/24 10:00 UNV Epoetin Calin-epbx 10,000 unit TUTHSA SC 06/17/24 12:00 Hold 06/28/24 08:25 10,000 UNIT Sodium Chloride 10 ml QSHIFT@10,22 IV 06/17/24 22:00 07/08/24 21:47 10 ML Acetaminophen 650 mg Q6HP PRN GT 06/20/24 11:30 06/28/24 17:05 650 MG Hydralazine HCl 10 mg Q4HP PRN IV 06/24/24 16:45 07/08/24 08:03 10 MG Omeprazole 20 mg DAILY GT 06/26/24 10:00 07/08/24 09:55 20 MG Albuterol 2.5 mg Q6HPRN PRN NEB 06/28/24 11:30 07/08/24 06:58 2.5 MG Lactulose 30 ml [id number] PRN PEG 07/01/24 10:15 Metoprolol Tartrate 50 mg BID PO 07/01/24 22:00 07/08/24 21:46 50 MG Fentanyl 25 mcg Q72H TD 07/01/24 17:30 07/04/24 17:54 25 MCG Enteral Nutritional Formula 1,000 ml 60ML/HR GT 07/02/24 11:00 07/08/24 04:40 1,000 ML Clonidine HCl 0.2 mg BID PO 07/03/24 22:00 07/08/24 21:47 0.2 MG Enoxaparin Sodium 30 mg DAILY SC 07/08/24 10:00 07/08/24 09:56 30 MG Hydralazine HCl 100 mg Q8HR PO 07/07/24 22:00 07/08/24 21:46 100 MG Fentanyl Citrate 250 ml @ 2.5 mls/hr Q24H IV 07/08/24 07:45 07/08/24 08:13 2.5 MLS/HR PHYSICAL EXAM: - GENERAL: Alert and oriented x 3. No acute distress. Well-nourished. - EYES: EOMI. Anicteric. - HENT: Moist mucous membranes. No scleral icterus. No cervical lymphadenopathy. - LUNGS: Clear to auscultation bilaterally. No accessory muscle use. - CARDIOVASCULAR: Regular rate and rhythm. No murmur. No JVD. - ABDOMEN: Soft, non-tender and non-distended. No palpable masses. - EXTREMITIES: No edema. Non-tender.?SKIN: No rashes or lesions. Warm. - NEUROLOGIC: No focal neurological deficits. CN II-XII grossly intact, but not individually tested - PSYCHIATRIC: Cooperative. Appropriate mood and affect. - laboratory and microbiology Laboratory Tests 07/08/24 04:51 Test 07/08/24 04:51 Range/Units Serum Glucose 110 H 74-106 mg/dL Problem List/Assessment/Plan Problem List/Assessment/Plan ASSESSMENT AND PLAN: ID Problem List: - Altered mental status - MDR Acinetobacter and Pseudomonas respiratory infections - MRSA colonization - Fevers (resolving) - Right above-knee amputation - Partial left foot amputation - Congestive heart failure - Chronic obstructive pulmonary disease - Dyslipidemia - Hypertension - Cerebrovascular accident - Liver disease - Myocardial infarction Assessment This is a 69 y.o. male with a past medical history of right above-knee amputation, partial left foot amputation, CHF, COPD, dyslipidemia, hypertension, CVA, liver disease, and DE, who presents with altered mental status. Patient was noted by family to have progressive confusion over the last three days, culminating in unresponsiveness. On arrival to the ED, the patient was unresponsive and was emergently intubated for airway protection. He was unable to provide history due to altered mental status and was admitted to the ICU for prolonged therapy. He underwent tracheostomy and PEG placement on June 13. Microbiology: - On May 28, sputum culture grew MRSA. - On May 30, bronchial culture grew MRSA. - On June 10, tracheal/bronchial washing grew MDR Acinetobacter and Pseudomonas. - Blood cultures grew Staphylococcus capitis and Staphylococcus auricularis on June 02. - Blood cultures grew Staphylococcus epidermidis and Staphylococcus hominis on June 09. - Blood cultures on June 24 showed no growth. - Catheter tip cultures grew MRSA, MDR Acinetobacter, and Enterococcus. Antibiotic history: - Vancomycin from May 28 to June 14. - Piperacillin-tazobactam (Zosyn) from May 28 to May 29. - Ampicillin from May 29 to . - Ceftriaxone from May 29 to . - Linezolid from May 31 to . - Meropenem from May 31 to . Currently, the patient is on linezolid and meropenem. Fevers have resolved since June 27, and recent cultures remain negative. 07/03: Patient has completed 7 days therapy of meropenum and lizasoild empirically for coverage of all possible bacteremia in the setting of catheter site colonization 07/05: Chest xray shows pulmonary vascular congestion Plan: - follow up on operative cultures - patient to be trasfered to a [facility] , no signs of ongoing sepsis - Monitor off all antibiotics - Monitor for signs of infection. - Continue supportive care. - Isolation Precautions: Standard. Assessment and plan were discussed with the patient as written above. Plan is subject to change pending incorporation of new incoming information/diagnostics. Updates may be added as addendum at the bottom (OR TOP) of this note. Thank you for interesting consult. ID will continue to follow. Please contact Infectious Disease for any questions or concerns. Plan discussed with: Patient Dietary Evaluation Review Comments: 1) If GI is assessible consider Jevity 1.2 @ 60 ml/hr x24 hrs goal rate as tolerated 2) If pt remains NPO >7 days consider TPN to meet at least 75% of estimated needs 3) Advance pt diet when medically feasible to a Cardiac/Renal Specific K2,2gmNA,low phos,60g Pro diet modified per CLIENT ACCOUNT REPRESENTATIVE recommendations 4) Continue current plan of care Expected Outcomes/Goals: 1) Pt to receive adequate nutrition support 2) Pt diet to advance CC Plasma Assessment Blood Product Administration S: [id number] SURINDER CHOWDHURY MD Jul 08, 2024 23:43
[2024-07-09] VITALS (31 sets, daily range): BP systolic 125–168; BP diastolic 66–90; PULSE 63–93; RESP 16–30; TEMP 98.1–98.7; O2SAT 94–100
[2024-07-09 05:25] LABS: Basophils # (auto) 0 10 ^3/uL (0-0.2); Eosinophils # (auto) 0.3 10 ^3/uL (0-0.8); Eosinophils % (auto) 5.6 % (0.0-7.0); Lymphocytes # (auto) 0.9 10 ^3/uL (0.4-5.4); Monocytes # (auto) 0.4 10 ^3/uL (0-1.3); Neutrophils # (auto) 3.5 10 ^3/uL (1.6-8.6); Nucleated Red Blood Cells % 0.3 %; Platelet Count (auto) 143 10^3/uL (140-450)
[2024-07-09 05:26] LABS: Basophils % (auto) 0.6 % (0.0-2.0); Hematocrit 23.5 % (41.0-53.0); Hemoglobin 7.9 g/dL (13.5-17.5); Lymphocytes % (auto) 17.5 % (10.0-50.0); Mean Corpuscular Hemoglobin 33.6 pg (28.0-32.0); Mean Corpuscular Hgb Conc. 33.6 g/dL (32.0-36.0); Monocytes % (auto) 7.6 % (0.0-12.0); Neutrophils % (auto) 68.7 % (37.0-80.0); Red Blood Cells 2.35 10^6/uL (4.5-5.90)
[2024-07-09 05:28] LABS: Chloride 105 mmol/L (98-107); Potassium 4.5 mmol/L (3.5-5.1); Sodium 143 mmol/L (136-145)
[2024-07-09 05:29] LABS: Anion Gap 5 (5-15); Calcium 8.9 mg/dL (8.7-10.4)
[2024-07-09 05:31] LABS: Carbon Dioxide 33 mmol/L (20-31)
[2024-07-09 05:33] LABS: Red Cell Distribution Width 21.7 % (11.8-14.3)
[2024-07-09 05:34] LABS: BUN/Creatinine Ratio 8.5 (10.0-20.0)
--- NOTE | 2024-07-09 05:39 | DVH ---
CHEST RADIOGRAPH Indication: f/u Technique: Single frontal view of the chest was obtained Comparison: XY CHEST PORTABLE on DOS: 07/08/24, XY CHEST XRAY 1 VIEW on DOS: 07/03/24, XY CHEST XRAY 1 VIEW on DOS: 07/02/24, XY CHEST PORTABLE on DOS: 06/30/24, XY CHEST PORTABLE on DOS: 06/29/24, XY C HEST PORTABLE on DOS: 07/08/24 FINDINGS: Lines and Tubes: Right central venous catheter terminates in the superior cavoatrial junction .. Left PICC terminates in the superior vena cava. Tracheostomy tube noted. Left central venous catheter has been removed. Lungs: Bilateral airspace opacities noted. Pleura: No effusion. No pneumothorax. Cardiomediastinal contours: Pneumomediastinum and pneumopericardium stable since prior study. Stable size of the cardiovascular silhouette. Bones: No acute osseous abnormality. Chest wall: Left neck subcutaneous emphysema. IMPRESSION: 1. No interval change.
[2024-07-09 06:21] LABS: Blood Urea Nitrogen 25 mg/dL (9-23); Glucose 109 mg/dL (74-106)
--- NOTE | 2024-07-09 09:22 | DVHPN2 ---
Progress Note Date Seen: Jul 09, 2024 Has the PT tested + for MRSA If YES, has PT been informed?: Yes Medical Necessity Reason Pt with a Central, PICC or Fol: Yes The following are medically ne: Rubio Catheter Reason for rubio catheter: Strict I&O Subjective Review of Systems: RESPIRATORY:Abnormal Other Systems: Patient seen and examined by myself patient remained trached on aerosol oxygen Patient examined hemodialysis, blood pressure stable Objective vital signs Vital Sign Date Time Temp Pulse Resp B/P (MAP) Pulse Ox O2 Delivery O2 Flow Rate FiO2 07/09/24 08:00 18 96 T-piece 10 21 21 07/09/24 07:00 74 139/72 (94) 07/09/24 04:00 98.2 98.2 Total Intake and Output 07/08/24 07/08/24 07/09/24 15:00 23:00 07:00 Intake Total 573 ml 450 ml Output Total 200 ml 250 ml Balance 373 ml 200 ml medications Current Medications Medications Dose Ordered Sig/[place] Route Start Time Stop Time Status Last Admin Dose Admin Amlodipine Besylate 10 mg DAILY PO 06/10/24 10:00 07/08/24 09:54 10 MG Enoxaparin Sodium 40 mg DAILY SC 06/10/24 10:00 UNV Enoxaparin Sodium 40 mg DAILY SC 06/17/24 10:00 UNV Epoetin Calin-epbx 10,000 unit TUTHSA SC 06/17/24 12:00 Hold 06/28/24 08:25 10,000 UNIT Sodium Chloride 10 ml QSHIFT@10,22 IV 06/17/24 22:00 07/08/24 21:47 10 ML Acetaminophen 650 mg Q6HP PRN GT 06/20/24 11:30 06/28/24 17:05 650 MG Hydralazine HCl 10 mg Q4HP PRN IV 06/24/24 16:45 07/08/24 08:03 10 MG Omeprazole 20 mg DAILY GT 06/26/24 10:00 07/08/24 09:55 20 MG Albuterol 2.5 mg Q6HPRN PRN NEB 06/28/24 11:30 07/08/24 06:58 2.5 MG Lactulose 30 ml [id number] PRN PEG 07/01/24 10:15 Metoprolol Tartrate 50 mg BID PO 07/01/24 22:00 07/08/24 21:46 50 MG Fentanyl 25 mcg Q72H TD 07/01/24 17:30 07/04/24 17:54 25 MCG Enteral Nutritional Formula 1,000 ml 60ML/HR GT 07/02/24 11:00 07/09/24 06:18 1,000 ML Clonidine HCl 0.2 mg BID PO 07/03/24 22:00 07/08/24 21:47 0.2 MG Enoxaparin Sodium 30 mg DAILY SC 07/08/24 10:00 07/08/24 09:56 30 MG Hydralazine HCl 100 mg Q8HR PO 07/07/24 22:00 07/09/24 05:42 100 MG Fentanyl Citrate 250 ml @ 2.5 mls/hr Q24H IV 07/08/24 07:45 07/08/24 08:13 2.5 MLS/HR Examination: LUNGS:Normal, CVS:Normal, MSK:Normal laboratory and microbiology Laboratory Tests 07/09/24 04:47 Test 07/09/24 04:47 Range/Units Serum Glucose 109 H 74-106 mg/dL Microbiology Date/Time Source Procedure Growth Status 06/28/24 15:27 Blood Blood Culture - Final NO GROWTH AFTER 5 DAYS OF INCUBATION. Complete 06/25/24 08:20 Catheter Site Aerobic Culture - Final Methicillin Resistant S.aureus Acinetobacter baumannii MDRO Enterococcus faecalis Complete 06/11/24 16:06 Bronchial Washings Gram Stain - Final Complete 06/11/24 16:06 Respiratory Culture - Final Acinetobacter baumannii Pseudomonas aeruginosa Complete 05/30/24 11:45 Pleural Fluid Gram Stain - Final Complete 05/30/24 11:45 Pleural Fluid Body Fluid Culture - Final Complete 05/28/24 22:36 Urine - Catheterized Urine Culture - Final Enterobacter cloacae Escherichia coli Enterococcus faecalis - VRE Complete Problem List/Assessment/Plan Problem List/Assessment/Plan Acute kidney injury superimposed on chronic kidney disease stage 4, oliguric requiring initiation of hemodialysis D Acute respiratory failure, patient is trached Anemia suspected due to low blood loss s/p PRBC Septic shock Hypernatremia Hypomagnesemia Peripheral arterial disease Right above knee amputation Metabolic acidosis Chronic urinary retention MRSA bacteremia Recommendations Continue with UF 2 L as tolerated Epogen 94484 IV post hemodialysis Rubio catheter Strict I&Os Magnesium sulfate IV piggyback t IV antibiotic per ID consult We will continue to follow Plan discussed with: Other (Nurse) Dietary Evaluation Review Comments: 1) If GI is assessible consider Jevity 1.2 @ 60 ml/hr x24 hrs goal rate as tolerated 2) If pt remains NPO >7 days consider TPN to meet at least 75% of estimated needs 3) Advance pt diet when medically feasible to a Cardiac/Renal Specific K2,2gmNA,low phos,60g Pro diet modified per INSTRUCTIONAL DESIGNER recommendations 4) Continue current plan of care Expected Outcomes/Goals: 1) Pt to receive adequate nutrition support 2) Pt diet to advance CC Plasma Assessment Blood Product Administration S: [id number] DAVID TORRES MD Jul 09, 2024 09:22
[2024-07-09] MEDS: MAGNESIUM SULFATE 1GM/100ML 100 ML IV ONE (09:36)
[2024-07-09] MEDS: SODIUM CHL 0.9% 1000 ML BAG XX ONE (14:07)
[2024-07-09] MEDS: FUROSEMIDE 40 MG/4 ML VIAL IV ONE (17:09)
--- NOTE | 2024-07-09 19:54 | DVHPNRES ---
Progress Note Date Seen: Jul 09, 2024 Resident Creating Document: THA CRISOSTOMO RESIDENT Has the PT tested + for MRSA If YES, has PT been informed?: Yes Medical Necessity Reason Pt with a Central, PICC or Fol: Yes The following are medically ne: Rubio Catheter Reason for rubio catheter: Strict I&O Subjective Review of Systems This is a 65-year-old male with past medical history of CHF, CKD, COPD, dyslipidemia, hypertension, CVA brought to the hospital with shortness of breaths and at the level of consciousness. Admitted and intubated on 05/28, extubated on 06/09 but reintubated on 06/10. Epigastric performed on 06/13, PEG tube placed on 06/15. 07/01 - Patient seen and examined at bedside. Overnight no events, patient made 150 cc of urine in the morning and 125 cc in the night. Multiple bowel movements 500 cc on 06/30, 250 cc on the night of 07/01 and 200 on the morning of 07/01. Lactulose changed to p.r.n.. Patient is intubated and mechanically ventilated. Patient is satting 97% on trach collar via 6 L oxygen supplementation for the past 24 hours. He is not on pressor support. On fentanyl 20 mcg. Increase metoprolol to 50 mg b.i.d. and started clonidine 0.1 mg b.i.d.. Started fentanyl patch 25 mcg. IV fentanyl will be discontinued after overlapping her 4-5 hours with fentanyl patch. 07/02 - overnight patient made 100 mL of urine. 50 mL of output was drain from colostomy bag. Otherwise no events. Patient seen and examined at bedside. He underwent dialysis this morning and 2.5 L were drained. Chest x-ray reviewed shows worsening left-sided infiltrate. Patient is satting 98% on 3 color with 6 L oxygen supplementation. 07/03 - overnight colostomy bag was leaking so it was changed. Patient had 50 mL urine output in the order fulfillment specialist, 115 mL during the of the of 07/02. Colostomy bag was drained with 50 mL of contents. Patient is still hypotensive systolic ranging in 150s to 160s therefore clonidine increased to 0.2 mg b.i.d.. Creatinine trending down to 3.2. Tunnel catheter consent obtained. IR consulted. NPO starting morning. Final blood culture 06/28 shows no growth. IV antibiotics discontinued. 07/04 - overnight patient had 200 mL of colostomy output. Urine output 125 in the day of 07/03 and 150 in the order fulfillment specialist. Tunneled catheter placed to the right upper chest. DC left IJ catheter once dialysis session completed. Undergoing dialysis session today. 07/07 - patient seen and examined in the bedside. Underwent dialysis today. Over the weekend bronchoscopy completed 07/05 showed left lower lobe atelectasis due to mucus plugging and right lower lobe mucous plugging. 07/08 - pt desatted to 70s in the morning. CXR shows air in the subcutaneous tiisues. CT chest w/o ordered, showed Pneumomediastinum and pneumopericardium. Bilateral pleural effusions, left slightly greater than right. Bilateral lower lobe opacities compatible with compressive atelectasis. o2 supp increased to 10L from 6, and fio2 increased to 100%. Pt underwent bronch,showed Left lower lobe atelectasis due to mucous plugging. Mucous plugging from L6-L10. Pt switched to ventilator and IV fent started. Facial swelling resolving. 07/09 - overnight, pt desatted which improved with suctioning. HD today, lsix 40mg IV once. Objective vital signs Vital Sign Date Time Temp Pulse Resp B/P (MAP) Pulse Ox O2 Delivery O2 Flow Rate FiO2 07/09/24 18: 95 Trach Collar 10.0 07/09/24 18:19 21 21 07/09/24 18:00 76 27 137/76 (96) 07/09/24 16:00 98.7 98.7 Total Intake and Output 07/08/24 07/08/24 07/09/24 15:00 23:00 07:00 Intake Total 573 ml 450 ml Output Total 200 ml 250 ml Balance 373 ml 200 ml medications Current Medications Medications Dose Ordered Sig/[place] Route Start Time Stop Time Status Last Admin Dose Admin Amlodipine Besylate 10 mg DAILY PO 06/10/24 10:00 07/09/24 09:34 10 MG Enoxaparin Sodium 40 mg DAILY SC 06/10/24 10:00 UNV Enoxaparin Sodium 40 mg DAILY SC 06/17/24 10:00 UNV Epoetin Morena-epbx 10,000 unit TUTHSA SC 06/17/24 12:00 Hold 06/28/24 08:25 10,000 UNIT Sodium Chloride 10 ml QSHIFT@10,22 IV 06/17/24 22:00 07/09/24 09:35 10 ML Acetaminophen 650 mg Q6HP PRN GT 06/20/24 11:30 06/28/24 17:05 650 MG Hydralazine HCl 10 mg Q4HP PRN IV 06/24/24 16:45 07/08/24 08:03 10 MG Omeprazole 20 mg DAILY GT 06/26/24 10:00 07/09/24 09:33 20 MG Albuterol 2.5 mg Q6HPRN PRN NEB 06/28/24 11:30 07/08/24 06:58 2.5 MG Lactulose 30 ml [id number] PRN PEG 07/01/24 10:15 Metoprolol Tartrate 50 mg BID PO 07/01/24 22:00 07/09/24 09:34 50 MG Fentanyl 25 mcg Q72H TD 07/01/24 17:30 07/09/24 14:09 25 MCG Enteral Nutritional Formula 1,000 ml 60ML/HR GT 07/02/24 11:00 07/09/24 06:18 1,000 ML Clonidine HCl 0.2 mg BID PO 07/03/24 22:00 07/09/24 09:34 0.2 MG Enoxaparin Sodium 30 mg DAILY SC 07/08/24 10:00 07/09/24 09:33 30 MG Hydralazine HCl 100 mg Q8HR PO 07/07/24 22:00 07/09/24 14:55 100 MG Heparin Sodium (Porcine) 4,000 units JACKY PRN XX 07/09/24 11:00 Examination Patient lying in bed, in no acute distress. Patient is alert and following commands General: afebrile, palor, mucosae are moist. Resolving facial swelling. Cardiovascular: Regular S1 and S2. No murmurs, gallops or rubs. No JVD elevation. Bilateral pitting edema. Respiratory: Decreased but equal Bilateral air entry. Saturating 97% with 6 L supplementation via tracheostomy. Abdomen: Soft, nontender, nondistended, normoactive bowel sounds, no rebound tenderness, no organomegaly, no masses. Suprapubic catheter seen draining urine and colostomy bag seen draining 10 mL of dark yellow which is liquid in consistency. Peg tube in place. Genitourinary: Stage III sacral ulcer, skin non intact, draining pus and erythema noted. MSK/skin: Limb movement can not be assessed. Skin is dry and warm Neurological: Pupils are isocoric and reactive. laboratory and microbiology Laboratory Tests 07/09/24 04:47 Test 07/09/24 04:47 Range/Units Serum Glucose 109 H 74-106 mg/dL Microbiology Date/Time Source Procedure Growth Status 06/28/24 15:27 Blood Blood Culture - Final NO GROWTH AFTER 5 DAYS OF INCUBATION. Complete 06/25/24 08:20 Catheter Site Aerobic Culture - Final Methicillin Resistant S.aureus Acinetobacter baumannii MDRO Enterococcus faecalis Complete 06/11/24 16:06 Bronchial Washings Gram Stain - Final Complete 06/11/24 16:06 Respiratory Culture - Final Acinetobacter baumannii Pseudomonas aeruginosa Complete 05/30/24 11:45 Pleural Fluid Gram Stain - Final Complete 05/30/24 11:45 Pleural Fluid Body Fluid Culture - Final Complete 05/28/24 22:36 Urine - Catheterized Urine Culture - Final Enterobacter cloacae Escherichia coli Enterococcus faecalis - VRE Complete Labs and/or images reviewed: Labs reviewed by me, Image(s) reviewed by me Problem List/Assessment/Plan Problem List/Assessment/Plan NEURO: Acute metabolic encephalopathy likely due to sepsis History of seizure History of stroke - Old infarct in the right frontal lobe and right parietal occipital lobe Patient is sedated and on mechanical ventilation, RASS scores -2 History of seizure during last admission(1 month back) used Keppra for 1 week Discontinued Keppra, on 06/16 EEG shows abnormal EEG recording consistent with the presence of a diffuse nonspecific encephalopathic state CARDIOVASCULAR: Hypertension Continue injection hydralazine 10 mg q.6 hours as needed Increase metoprolol to 50 mg b.i.d., Continue amlodipine 10 mg, hydralazine 100 mg t.i.d. Started clonidine 0.1 mg twice daily 07/01. Clonidine increased to 0.2 mg b.i.d. 07/03 Final blood culture 06/28 shows no growth PULMONARY: Acute Hypoxic Respiratory Failure likely due to pneumonia Septic shock likely due to pneumonia, improved Pneumonia likely due to MRSA and Enterobacter cloacae Pneumomediastinum and pneumopericardium - Patient is sedated and mechanically ventilated with PEEP of 30% - CT scan shows [id number] left pleural effusion - MRSA nares screening, COVID-19 and flu are negative - Bronchoscopy performed on 06/11, there was some thin mucus secretion on bilateral side, bronchial lavage of right lower lobe and left lower lobe was performed, and the culture results shows Pseudomonas aeruginosa and Enterobacter baumanni, MDR; ID has been consulted - Sputum culture from bronchoalveolar lavage from 05/24/24 shows MRSA, Enterobacter cloacae - Blood culture from the 06/02/24 shows Staphylococcus epidermidis , Staph hominis - Repeat culture from 06/09/2024 shows no growth - Stopped IV linezolid, given for 11 days, discontinued meropenem, started on 06/08 and given for 12 days - discontinued N-acetylcysteine 07/01 - Breathing treatment q.6 hours p.r.n. -started fentanyl patch 25 mcg 07/01 - bronchoscopy completed 07/05 showed left lower lobe atelectasis due to mucus plugging and right lower lobe mucous plugging. - 07/08 - pt desatted to 70s in the morning. CXR shows air in the subcutaneous tissues. CT chest w/o ordered, showed Pneumomediastinum and pneumopericardium. Bilateral pleural effusions, left slightly greater than right. Bilateral lower lobe opacities compatible with compressive atelectasis. o2 supp increased to 10L from 6, and fio2 increased to 100%. Pt underwent bronch,showed Left lower lobe atelectasis due to mucous plugging. Mucous plugging from L6-L10. GI - GI ppx: omeprazole 20mg daily via OG tube - Hepatitis-C virus antibody positive - Repeat stool occult blood test is negative - CT abdominopelvic without contrast shows no evidence of intra-abdominal hemorrhage - Tracheostomy is performed on 06/13 - PEG tube is placed on 06/15 - Bowel regimen: Lactulose 30 mL b.i.d. change to p.r.n. 07/01 : FROYLAN, possible VMN on ESRD requiring hemodialysis - Nephrology consulted, epoetin morean 67424 units SC post dialysis. Radiology for tunneled hemodialysis catheter when the blood culture negative for 72 hours - Stopped Bumix 1mg BID - creatinine increased to 3.91 from 3.64 - Homer catheter placed on left internal jugular, on 06/26, removed on 07/04 - tunneled catheter placed to the right upper chest 07/04 - hemodialysis completed 07/02 and 07/04 and 07/07, 07/09 UTI, urinalysis shows UTI picture - Urine culture from 05/28/2024 shows Enterobacter, E coli, Enterococcus faecalis Status post right lower limb, AKA likely due to PAD Decubitus ulcer - There are multiple stage 3-4 sacral ulcers draining pus - position changing every 2 hours and dressing -started fentanyl patch 25 mcg 07/01 HEME Severe anemia, transfused 4 pack of red blood cells Anemia of chronic disease Thrombocytopenia - current HB is 7.3 - Retacrit T/TH/SAT ID: - Sputum culture from bronchoalveolar lavage from 05/24/24 shows MRSA, Enterobacter cloacae - Blood culture from the 06/02/24 shows Staphylococcus epidermidis , Staph hominis - Repeat culture from 06/09/2024 shows no growth - culture results from BAL from 06/11 shows Pseudomonas aeruginosa and Enterobacter baumanni, MDR - discontinued IV linezolid starting 06/28 and meropenem starting 06/25, discontinued in 07/03 - previously received vancomycin - catheter site culture 06/25 completed shows MRSA, Acinetobacter baumannii MDRO, Enterococcus faecalis. SKIN Possible keloid - There is a growth on the left shoulder, per son, lesion has been present for several years - Follow up on outpatient basis Metabolic: Hypernatremia, improved Hypokalemia, discontinued potassium supplementation given ESRD Hyperkalemia, improved Mild hyponatremia, monitoring Hypoglycemic episodes, improved Hypomagnesemia, supplemented LINES/DRAINS/ACCESS: ETT, intubated on 05/28/2024 and tracheostomy performed on 06/11, PEG tube placed on 06/15 IV access Left internal jugular CVC, placed on 06/26 and removed on 07/04 Right IJ hemodialysis catheter placed 07/04 Suprapubic catheter, changed on 06/02/2024 Dripps: Fentanyl patch 25 mg No pressor DIET: Jevity 1.2 john 60 mL/hour DVT prophylaxis Lovenox 30mg SC daily Disposition: social services analyst consulted for transfer to the [facility]. Will be transfered to [facility] in [facility] or [facility]. critical care time including review of charts, discussing case with patient's nurse, and son excluding procedures is 42 mins CODE STATUS: Full code Plan discussed with patient and his son at bedside in which all questions have been answered. critical care time 43 mins Case discussed with Dr. Jacobs Plan discussed with: Patient, Son (at the bedside) Dietary Evaluation Review Comments: 1) If GI is assessible consider Jevity 1.2 @ 60 ml/hr x24 hrs goal rate as tolerated 2) If pt remains NPO >7 days consider TPN to meet at least 75% of estimated needs 3) Advance pt diet when medically feasible to a Cardiac/Renal Specific K2,2gmNA,low phos,60g Pro diet modified per [employer]ACHINE recommendations 4) Continue current plan of care Expected Outcomes/Goals: 1) Pt to receive adequate nutrition support 2) Pt diet to advance CC Plasma Assessment Blood Product Administration S: [id number] Date of Service: Jul 09, 2024 Billing Provider: SHARLA JACOBS MD Common Visit Codes: [id number] CARE 30-74 MIN THA CRISOSTOMO RESIDENT Jul 09, 2024 19:54 SHARLA JACOBS MD Jul 10, 2024 11:37
[2024-07-09] MEDS: EPOETIN ALFA-EPBX 10,000 UNIT/1ML VIAL SC ONE (20:37)
--- NOTE | 2024-07-09 21:08 | DVHPN2 ---
Progress Note - Dictate Date Seen: Jul 09, 2024 Has the PT tested + for MRSA If YES, has PT been informed?: Yes Medical Necessity Reason Pt with a Central, PICC or Fol: Yes The following are medically ne: Rubio Catheter Reason for rubio catheter: Strict I&O Subjective Patient seen and examined at bedside. Intubated on mechanical ventilator. S/p trach Overnight events reviewed. vital signs Vital Sign Date Time Temp Pulse Resp B/P (MAP) Pulse Ox O2 Delivery O2 Flow Rate FiO2 07/09/24 20:00 89 07/09/24 20:00 98.2 27 154/86 (108) 99 98.2 07/09/24 20:00 T-piece 10 21 21 Total Intake and Output 07/08/24 07/08/24 07/09/24 15:00 23:00 07:00 Intake Total 573 ml 450 ml Output Total 200 ml 250 ml Balance 373 ml 200 ml medications Current Medications Medications Dose Ordered Sig/[place] Route Start Time Stop Time Status Last Admin Dose Admin Amlodipine Besylate 10 mg DAILY PO 06/10/24 10:00 07/09/24 09:34 10 MG Enoxaparin Sodium 40 mg DAILY SC 06/10/24 10:00 UNV Enoxaparin Sodium 40 mg DAILY SC 06/17/24 10:00 UNV Epoetin Calin-epbx 10,000 unit TUTHSA SC 06/17/24 12:00 Hold 06/28/24 08:25 10,000 UNIT Sodium Chloride 10 ml QSHIFT@10,22 IV 06/17/24 22:00 07/09/24 09:35 10 ML Acetaminophen 650 mg Q6HP PRN GT 06/20/24 11:30 06/28/24 17:05 650 MG Hydralazine HCl 10 mg Q4HP PRN IV 06/24/24 16:45 07/08/24 08:03 10 MG Omeprazole 20 mg DAILY GT 06/26/24 10:00 07/09/24 09:33 20 MG Albuterol 2.5 mg Q6HPRN PRN NEB 06/28/24 11:30 07/08/24 06:58 2.5 MG Lactulose 30 ml [id number] PRN PEG 07/01/24 10:15 Metoprolol Tartrate 50 mg BID PO 07/01/24 22:00 07/09/24 09:34 50 MG Fentanyl 25 mcg Q72H TD 07/01/24 17:30 07/09/24 14:09 25 MCG Enteral Nutritional Formula 1,000 ml 60ML/HR GT 07/02/24 11:00 07/09/24 06:18 1,000 ML Clonidine HCl 0.2 mg BID PO 07/03/24 22:00 07/09/24 09:34 0.2 MG Enoxaparin Sodium 30 mg DAILY SC 07/08/24 10:00 07/09/24 09:33 30 MG Hydralazine HCl 100 mg Q8HR PO 07/07/24 22:00 07/09/24 14:55 100 MG Heparin Sodium (Porcine) 4,000 units JACKY PRN XX 07/09/24 11:00 objective Gen.: Patient lying in bed in medical ICU. Intubated on mechanical ventilator. S/p trach. Head: Normocephalic, atraumatic. Eyes: PERRLA. Ears: Normal external anatomy. Throat: Endotracheal tube and orogastric tube in place. Neck: Trach in place. Chest: Transmitted breath sounds bilaterally. Decreased air entry bilaterally. No wheezing. Bibasilar crackles. Cardiovascular: Positive S1, positive S2. Regular rate and rhythm. Abdomen: Positive bowel sounds in all 4 quadrants. Soft, nontender, nondistended. : Rubio in place. Normal external genitalia. Rectal: Deferred. Skin: Warm, dry. Intact. Extremities: 2+ radial pulses bilaterally. No lower extremity edema. Neuro: Off sedation. laboratory and microbiology Laboratory Tests 07/09/24 04:47 Test 07/09/24 04:47 Range/Units Serum Glucose 109 H 74-106 mg/dL Assessment/Plan Impression: Acute hypoxic respiratory failure On mechanical ventilator Multifocal pneumonia Atelectasis Congestive heart failure Events: Desaturation events - increased trach secretions. Trach care Pulmonary toileting Placed Shiley 6 XLT on 07/08/24. Humidified O2 Trach care. Pulmonary toileting. Off sedation Patient is awake, alert. Wound care. Tube feeds for nutritional support. HOB elevation Aspiration precautions. HD per Nephrology. Today removed 2.5 L. Magnesium supplemented. Monitor renal function Monitor electrolytes. Supplement as necessary. Awaiting LTAC placement. S/p bronchoscopy with BAL on 12/24/24. See procedure note for full details. Rest of plan as noted below Plan: s/p intubation on mechanical ventilator. S/p trach, trach collar - on 6 L Titrate FIO2 to keep O2 saturation above 90%. VAP bundle. Daily ABG and CXR while intubated Off sedation Off pressors,hemodynamically stable. Antibiotics - completed Positive hepatitis C. IV fluid hydration Maintain euvolemia Monitor renal function Monitor electrolytes. Supplement as necessary. Monitor ins and outs. Tube feeds for nutritional support. GI prophylaxis. DVT prophylaxis. Prognosis: Poor given patient's multiple co-morbidities. Condition: Critical Rest of plan per hospitalist and other consultants. A total of 35 minutes of critical care time was spent reviewing the patient record, examining the patient, making a diagnostic and therapeutic plan, discussing this plan with the medical personnel, following up on diagnostic studies and following the patient for clinical stability excluding any and all procedures. At least 50% of this time was spent in direct, [id number] contact. Thank you Anthony Ugalde NP, for allowing me to participate in this patient's care. Further recommendations will depend on the patient's clinical course. Please do not hesitate to contact me if you have any questions or concerns. This medical document was created using an electronic medical record system with [employer] computerized dictation system. Although these documentations are being carefully reviewed, there may still be some phonetic and typographical changes. The errors are purely typographical, due to imperfection on the software program, and do not reflect any compromise in the patient's medical care. Dietary Evaluation Review Comments: 1) If GI is assessible consider Jevity 1.2 @ 60 ml/hr x24 hrs goal rate as tolerated 2) If pt remains NPO >7 days consider TPN to meet at least 75% of estimated needs 3) Advance pt diet when medically feasible to a Cardiac/Renal Specific K2,2gmNA,low phos,60g Pro diet modified per [employer] recommendations 4) Continue current plan of care Expected Outcomes/Goals: 1) Pt to receive adequate nutrition support 2) Pt diet to advance Plan discussed with: Other (DORCAS Zee, RT, MD) Critical Care Time(min): 35 CC Plasma Assessment Blood Product Administration S: [id number] ELIANE ALTAMIRANO MD Jul 09, 2024 21:08
[2024-07-10] VITALS (34 sets, daily range): BP systolic 116–152; BP diastolic 70–88; PULSE 64–82; RESP 17–26; TEMP 98.2–99.8; O2SAT 92–100
[2024-07-10 05:25] LABS: Basophils # (auto) 0 10 ^3/uL (0-0.2); Basophils % (auto) 0.7 % (0.0-2.0); Monocytes # (auto) 0.6 10 ^3/uL (0-1.3); Neutrophils # (auto) 3.7 10 ^3/uL (1.6-8.6)
[2024-07-10 05:33] LABS: Anion Gap 4 (5-15); Chloride 104 mmol/L (98-107); Potassium 4.2 mmol/L (3.5-5.1); Sodium 142 mmol/L (136-145)
[2024-07-10 05:35] LABS: Calcium 9.1 mg/dL (8.7-10.4)
[2024-07-10 05:40] LABS: BUN/Creatinine Ratio 9.3 (10.0-20.0)
[2024-07-10 05:43] LABS: Eosinophils # (auto) 0.3 10 ^3/uL (0-0.8); Eosinophils % (auto) 5.2 % (0.0-7.0); Hematocrit 26.1 % (41.0-53.0); Hemoglobin 8.4 g/dL (13.5-17.5); Lymphocytes # (auto) 1.2 10 ^3/uL (0.4-5.4); Lymphocytes % (auto) 20.9 % (10.0-50.0); Mean Corpuscular Hemoglobin 31.9 pg (28.0-32.0); Mean Corpuscular Volume 99.8 fL (80.0-100.0); Monocytes % (auto) 10.3 % (0.0-12.0); Neutrophils % (auto) 62.9 % (37.0-80.0); Nucleated Red Blood Cells % 0.2 %; Platelet Count (auto) 142 10^3/uL (140-450); Red Blood Cells 2.62 10^6/uL (4.5-5.90); Red Cell Distribution Width 22.2 % (11.8-14.3); White Blood Cell 5.9 10^3/uL (4.4-10.8)
[2024-07-10 05:46] LABS: Blood Urea Nitrogen 24 mg/dL (9-23); Carbon Dioxide 34 mmol/L (20-31); Glucose 115 mg/dL (74-106)
--- NOTE | 2024-07-10 06:04 | DVH ---
CHEST RADIOGRAPH Indication: f/u Technique: Single frontal view of the chest was obtained COMPARISON: XY CHEST PORTABLE on DOS: 07/09/24, XY CHEST PORTABLE on DOS: 07/08/24, XY CHEST XRAY 1 V IEW on DOS: 07/03/24, XY CHEST XRAY 1 VIEW on DOS: 07/02/24, XY CHEST PORTABLE on DOS: 06/30/24 FINDINGS: Lines and Tubes: Tunneled right central venous catheter in satisfactory position. Lungs: Congestion. Right lower lobe airspace disease. Pleura: No effusion. No pneumothorax. Cardiomediastinal contours: Cardiomegaly. Bones: Unremarkable IMPRESSION: No significant interval change.
--- NOTE | 2024-07-10 13:00 | DVHPN2 ---
Progress Note Date Seen: Jul 10, 2024 Has the PT tested + for MRSA If YES, has PT been informed?: Yes Medical Necessity Reason Pt with a Central, PICC or Fol: Yes The following are medically ne: Rubio Catheter Reason for rubio catheter: Strict I&O Subjective Review of Systems: RESPIRATORY:Abnormal Other Systems: Patient seen and examined by myself today follow-up, patient with trach collar Objective vital signs Vital Sign Date Time Temp Pulse Resp B/P (MAP) Pulse Ox O2 Delivery O2 Flow Rate FiO2 07/10/24 12:15 98.5 71 23 100 98.5 07/10/24 12:00 T-piece 6 28 28 Total Intake and Output 07/09/24 07/09/24 07/10/24 15:00 23:00 07:00 Intake Total 100 ml 700 ml 773 ml Output Total 100 ml 250 ml Balance 100 ml 600 ml 523 ml medications Current Medications Medications Dose Ordered Sig/[place] Route Start Time Stop Time Status Last Admin Dose Admin Amlodipine Besylate 10 mg DAILY PO 06/10/24 10:00 07/10/24 08:33 10 MG Enoxaparin Sodium 40 mg DAILY SC 06/10/24 10:00 UNV Enoxaparin Sodium 40 mg DAILY SC 06/17/24 10:00 UNV Epoetin Calin-epbx 10,000 unit TUTHSA SC 06/17/24 12:00 Hold 06/28/24 08:25 10,000 UNIT Sodium Chloride 10 ml QSHIFT@10,22 IV 06/17/24 22:00 07/10/24 08:33 10 ML Acetaminophen 650 mg Q6HP PRN GT 06/20/24 11:30 06/28/24 17:05 650 MG Hydralazine HCl 10 mg Q4HP PRN IV 06/24/24 16:45 07/08/24 08:03 10 MG Omeprazole 20 mg DAILY GT 06/26/24 10:00 07/10/24 08:31 20 MG Albuterol 2.5 mg Q6HPRN PRN NEB 06/28/24 11:30 07/08/24 06:58 2.5 MG Lactulose 30 ml [id number] PRN PEG 07/01/24 10:15 Metoprolol Tartrate 50 mg BID PO 07/01/24 22:00 07/10/24 08:32 50 MG Fentanyl 25 mcg Q72H TD 07/01/24 17:30 07/09/24 14:09 25 MCG Enteral Nutritional Formula 1,000 ml 60ML/HR GT 07/02/24 11:00 07/09/24 23:06 1,000 ML Clonidine HCl 0.2 mg BID PO 07/03/24 22:00 07/10/24 09:56 0.2 MG Enoxaparin Sodium 30 mg DAILY SC 07/08/24 10:00 07/10/24 08:32 30 MG Hydralazine HCl 100 mg Q8HR PO 07/07/24 22:00 07/10/24 05:50 100 MG Heparin Sodium (Porcine) 4,000 units JACKY PRN XX 07/09/24 11:00 laboratory and microbiology Laboratory Tests 07/10/24 04:51 Test 07/10/24 04:51 Range/Units Serum Glucose 115 H 74-106 mg/dL Microbiology Date/Time Source Procedure Growth Status 06/28/24 15:27 Blood Blood Culture - Final NO GROWTH AFTER 5 DAYS OF INCUBATION. Complete 06/25/24 08:20 Catheter Site Aerobic Culture - Final Methicillin Resistant S.aureus Acinetobacter baumannii MDRO Enterococcus faecalis Complete 06/11/24 16:06 Bronchial Washings Gram Stain - Final Complete 06/11/24 16:06 Respiratory Culture - Final Acinetobacter baumannii Pseudomonas aeruginosa Complete 05/30/24 11:45 Pleural Fluid Gram Stain - Final Complete 05/30/24 11:45 Pleural Fluid Body Fluid Culture - Final Complete 05/28/24 22:36 Urine - Catheterized Urine Culture - Final Enterobacter cloacae Escherichia coli Enterococcus faecalis - VRE Complete Problem List/Assessment/Plan Problem List/Assessment/Plan Acute kidney injury superimposed on chronic kidney disease stage 4, oliguric requiring initiation of hemodialysis D Acute respiratory failure, patient is trached Anemia suspected due to low blood loss s/p PRBC Septic shock Hypernatremia Hypomagnesemia Peripheral arterial disease Right above knee amputation Metabolic acidosis Chronic urinary retention MRSA bacteremia Recommendations Hemodialysis tomorrow Epogen 71016 IV post hemodialysis Rubio catheter Strict I&Os Magnesium sulfate IV piggyback t IV antibiotic per ID consult We will continue to follow Plan discussed with: Patient Dietary Evaluation Review Comments: 1) If GI is assessible consider Jevity 1.2 @ 60 ml/hr x24 hrs goal rate as tolerated 2) If pt remains NPO >7 days consider TPN to meet at least 75% of estimated needs 3) Advance pt diet when medically feasible to a Cardiac/Renal Specific K2,2gmNA,low phos,60g Pro diet modified per CEMENT HANDLER recommendations 4) Continue current plan of care Expected Outcomes/Goals: 1) Pt to receive adequate nutrition support 2) Pt diet to advance CC Plasma Assessment Blood Product Administration S: [id number] DAVID TORRES MD Jul 10, 2024 13:00
--- NOTE | 2024-07-10 18:58 | DVHPNRES ---
Progress Note Date Seen: Jul 10, 2024 Resident Creating Document: THA CRISOSTOMO RESIDENT Has the PT tested + for MRSA If YES, has PT been informed?: Yes Medical Necessity Reason Pt with a Central, PICC or Fol: Yes The following are medically ne: Rubio Catheter Reason for rubio catheter: Strict I&O Subjective Review of Systems This is a 65-year-old male with past medical history of CHF, CKD, COPD, dyslipidemia, hypertension, CVA brought to the hospital with shortness of breaths and at the level of consciousness. Admitted and intubated on 05/28, extubated on 06/09 but reintubated on 06/10. Epigastric performed on 06/13, PEG tube placed on 06/15. 07/01 - Patient seen and examined at bedside. Overnight no events, patient made 150 cc of urine in the morning and 125 cc in the night. Multiple bowel movements 500 cc on 06/30, 250 cc on the night of 07/01 and 200 on the morning of 07/01. Lactulose changed to p.r.n.. Patient is intubated and mechanically ventilated. Patient is satting 97% on trach collar via 6 L oxygen supplementation for the past 24 hours. He is not on pressor support. On fentanyl 20 mcg. Increase metoprolol to 50 mg b.i.d. and started clonidine 0.1 mg b.i.d.. Started fentanyl patch 25 mcg. IV fentanyl will be discontinued after overlapping her 4-5 hours with fentanyl patch. 07/02 - overnight patient made 100 mL of urine. 50 mL of output was drain from colostomy bag. Otherwise no events. Patient seen and examined at bedside. He underwent dialysis this morning and 2.5 L were drained. Chest x-ray reviewed shows worsening left-sided infiltrate. Patient is satting 98% on 3 color with 6 L oxygen supplementation. 07/03 - overnight colostomy bag was leaking so it was changed. Patient had 50 mL urine output in the registered massage therapist, 115 mL during the of the of 07/02. Colostomy bag was drained with 50 mL of contents. Patient is still hypotensive systolic ranging in 150s to 160s therefore clonidine increased to 0.2 mg b.i.d.. Creatinine trending down to 3.2. Tunnel catheter consent obtained. IR consulted. NPO starting morning. Final blood culture 06/28 shows no growth. IV antibiotics discontinued. 07/04 - overnight patient had 200 mL of colostomy output. Urine output 125 in the day of 07/03 and 150 in the registered massage therapist. Tunneled catheter placed to the right upper chest. DC left IJ catheter once dialysis session completed. Undergoing dialysis session today. 07/07 - patient seen and examined in the bedside. Underwent dialysis today. Over the weekend bronchoscopy completed 07/05 showed left lower lobe atelectasis due to mucus plugging and right lower lobe mucous plugging. 07/08 - pt desatted to 70s in the morning. CXR shows air in the subcutaneous tiisues. CT chest w/o ordered, showed Pneumomediastinum and pneumopericardium. Bilateral pleural effusions, left slightly greater than right. Bilateral lower lobe opacities compatible with compressive atelectasis. o2 supp increased to 10L from 6, and fio2 increased to 100%. Pt underwent bronch,showed Left lower lobe atelectasis due to mucous plugging. Mucous plugging from L6-L10. Pt switched to ventilator and IV fent started. Facial swelling resolving. 07/09 - overnight, pt desatted which improved with suctioning. HD today, lsix 40mg IV once. 07/10 - patient seen and examined at the bedside. No overnight events. Patient is more responsive, moving upper extremities to command . Objective vital signs Vital Sign Date Time Temp Pulse Resp B/P (MAP) Pulse Ox O2 Delivery O2 Flow Rate FiO2 07/10/24 18:37 99 Trach Collar 6.0 07/10/24 18:37 28 28 07/10/24 18:00 98.5 69 24 133/70 (91) 98.5 Total Intake and Output 07/09/24 07/09/24 07/10/24 15:00 23:00 07:00 Intake Total 100 ml 700 ml 773 ml Output Total 100 ml 250 ml Balance 100 ml 600 ml 523 ml medications Current Medications Medications Dose Ordered Sig/[place] Route Start Time Stop Time Status Last Admin Dose Admin Enoxaparin Sodium 40 mg DAILY SC 06/10/24 10:00 UNV Enoxaparin Sodium 40 mg DAILY SC 06/17/24 10:00 UNV Epoetin Morena-epbx 10,000 unit TUTHSA SC 06/17/24 12:00 Hold 06/28/24 08:25 10,000 UNIT Sodium Chloride 10 ml QSHIFT@10,22 IV 06/17/24 22:00 07/10/24 08:33 10 ML Acetaminophen 650 mg Q6HP PRN GT 06/20/24 11:30 06/28/24 17:05 650 MG Hydralazine HCl 10 mg Q4HP PRN IV 06/24/24 16:45 07/08/24 08:03 10 MG Omeprazole 20 mg DAILY GT 06/26/24 10:00 07/10/24 08:31 20 MG Albuterol 2.5 mg Q6HPRN PRN NEB 06/28/24 11:30 07/08/24 06:58 2.5 MG Lactulose 30 ml [id number] PRN PEG 07/01/24 10:15 Metoprolol Tartrate 50 mg BID PO 07/01/24 22:00 07/10/24 08:32 50 MG Fentanyl 25 mcg Q72H TD 07/01/24 17:30 07/09/24 14:09 25 MCG Enteral Nutritional Formula 1,000 ml 60ML/HR GT 07/02/24 11:00 07/09/24 23:06 1,000 ML Clonidine HCl 0.2 mg BID PO 07/03/24 22:00 07/10/24 09:56 0.2 MG Enoxaparin Sodium 30 mg DAILY SC 07/08/24 10:00 07/10/24 08:32 30 MG Hydralazine HCl 100 mg Q8HR PO 07/07/24 22:00 07/10/24 14:00 100 MG Heparin Sodium (Porcine) 4,000 units JACYK PRN XX 07/09/24 11:00 Examination Patient lying in bed, in no acute distress. Patient is alert and following commands General: afebrile, palor, mucosae are moist. Resolving facial swelling. Cardiovascular: Regular S1 and S2. No murmurs, gallops or rubs. No JVD elevation. Resolving Bilateral pitting edema. Respiratory: Decreased but equal Bilateral air entry. Saturating 98% with 6 L supplementation via tracheostomy. Abdomen: Soft, nontender, nondistended, normoactive bowel sounds, no rebound tenderness, no organomegaly, no masses. Suprapubic catheter seen draining urine and colostomy bag seen draining 10 mL of dark yellow which is liquid in consistency. Peg tube in place. Genitourinary: Stage III sacral ulcer, skin non intact, draining pus and erythema noted. MSK/skin: Patient is moving upper extremities to commands.. Skin is dry and warm Neurological: Pupils are isocoric and reactive. laboratory and microbiology Laboratory Tests 07/10/24 04:51 Test 07/10/24 04:51 Range/Units Serum Glucose 115 H 74-106 mg/dL Microbiology Date/Time Source Procedure Growth Status 06/28/24 15:27 Blood Blood Culture - Final NO GROWTH AFTER 5 DAYS OF INCUBATION. Complete 06/25/24 08:20 Catheter Site Aerobic Culture - Final Methicillin Resistant S.aureus Acinetobacter baumannii MDRO Enterococcus faecalis Complete 06/11/24 16:06 Bronchial Washings Gram Stain - Final Complete 06/11/24 16:06 Respiratory Culture - Final Acinetobacter baumannii Pseudomonas aeruginosa Complete 05/30/24 11:45 Pleural Fluid Gram Stain - Final Complete 05/30/24 11:45 Pleural Fluid Body Fluid Culture - Final Complete 05/28/24 22:36 Urine - Catheterized Urine Culture - Final Enterobacter cloacae Escherichia coli Enterococcus faecalis - VRE Complete Labs and/or images reviewed: Labs reviewed by me, Image(s) reviewed by me Problem List/Assessment/Plan Problem List/Assessment/Plan NEURO: Acute metabolic encephalopathy likely due to sepsis History of seizure History of stroke - Old infarct in the right frontal lobe and right parietal occipital lobe Patient is sedated and on mechanical ventilation, RASS scores -2 History of seizure during last admission(1 month back) used Keppra for 1 week Discontinued Keppra, on 06/16 EEG shows abnormal EEG recording consistent with the presence of a diffuse nonspecific encephalopathic state CARDIOVASCULAR: Hypertension Continue injection hydralazine 10 mg q.6 hours as needed Increase metoprolol to 50 mg b.i.d., Continue amlodipine 10 mg, hydralazine 100 mg t.i.d. Started clonidine 0.1 mg twice daily 07/01. Clonidine increased to 0.2 mg b.i.d. 07/03 Final blood culture 06/28 shows no growth PULMONARY: Acute Hypoxic Respiratory Failure likely due to pneumonia Septic shock likely due to pneumonia, improved Pneumonia likely due to MRSA and Enterobacter cloacae Pneumomediastinum and pneumopericardium - Patient is sedated and mechanically ventilated with PEEP of 30% - CT scan shows [id number] left pleural effusion - MRSA nares screening, COVID-19 and flu are negative - Bronchoscopy performed on 06/11, there was some thin mucus secretion on bilateral side, bronchial lavage of right lower lobe and left lower lobe was performed, and the culture results shows Pseudomonas aeruginosa and Enterobacter baumanni, MDR; ID has been consulted - Sputum culture from bronchoalveolar lavage from 05/24/24 shows MRSA, Enterobacter cloacae - Blood culture from the 06/02/24 shows Staphylococcus epidermidis , Staph hominis - Repeat culture from 06/09/2024 shows no growth - Stopped IV linezolid, given for 11 days, discontinued meropenem, started on 06/08 and given for 12 days - discontinued N-acetylcysteine 07/01 - Breathing treatment q.6 hours p.r.n. -started fentanyl patch 25 mcg 07/01 - bronchoscopy completed 07/05 showed left lower lobe atelectasis due to mucus plugging and right lower lobe mucous plugging. - 07/08 - pt desatted to 70s in the morning. CXR shows air in the subcutaneous tissues. CT chest w/o ordered, showed Pneumomediastinum and pneumopericardium. Bilateral pleural effusions, left slightly greater than right. Bilateral lower lobe opacities compatible with compressive atelectasis. o2 supp increased to 10L from 6, and fio2 increased to 100%. Pt underwent bronch,showed Left lower lobe atelectasis due to mucous plugging. Mucous plugging from L6-L10. GI - GI ppx: omeprazole 20mg daily via OG tube - Hepatitis-C virus antibody positive - Repeat stool occult blood test is negative - CT abdominopelvic without contrast shows no evidence of intra-abdominal hemorrhage - Tracheostomy is performed on 06/13 - PEG tube is placed on 06/15 - Bowel regimen: Lactulose 30 mL b.i.d. change to p.r.n. 07/01 : FROYLAN, possible VMN on ESRD requiring hemodialysis - Nephrology consulted, epoetin morena 17470 units SC post dialysis. Radiology for tunneled hemodialysis catheter when the blood culture negative for 72 hours - Stopped Bumix 1mg BID - creatinine increased to 3.91 from 3.64 - Homer catheter placed on left internal jugular, on 06/26, removed on 07/04 - tunneled catheter placed to the right upper chest 07/04 - hemodialysis completed 07/02 and 07/04 and 07/07, 07/09 UTI, urinalysis shows UTI picture - Urine culture from 05/28/2024 shows Enterobacter, E coli, Enterococcus faecalis Status post right lower limb, AKA likely due to PAD Decubitus ulcer - There are multiple stage 3-4 sacral ulcers draining pus - position changing every 2 hours and dressing -started fentanyl patch 25 mcg 07/01 HEME Severe anemia, transfused 4 pack of red blood cells Anemia of chronic disease Thrombocytopenia - current HB is 7.3 - Retacrit T/TH/SAT ID: - Sputum culture from bronchoalveolar lavage from 05/24/24 shows MRSA, Enterobacter cloacae - Blood culture from the 06/02/24 shows Staphylococcus epidermidis , Staph hominis - Repeat culture from 06/09/2024 shows no growth - culture results from BAL from 06/11 shows Pseudomonas aeruginosa and Enterobacter baumanni, MDR - discontinued IV linezolid starting 06/28 and meropenem starting 06/25, discontinued in 07/03 - previously received vancomycin - catheter site culture 06/25 completed shows MRSA, Acinetobacter baumannii MDRO, Enterococcus faecalis. SKIN Possible keloid - There is a growth on the left shoulder, per son, lesion has been present for several years - Follow up on outpatient basis Metabolic: Hypernatremia, improved Hypokalemia, discontinued potassium supplementation given ESRD Hyperkalemia, improved Mild hyponatremia, monitoring Hypoglycemic episodes, improved Hypomagnesemia, supplemented LINES/DRAINS/ACCESS: ETT, intubated on 05/28/2024 and tracheostomy performed on 06/11, PEG tube placed on 06/15 IV access Left internal jugular CVC, placed on 06/26 and removed on 07/04 Right IJ hemodialysis catheter placed 07/04 Suprapubic catheter, changed on 06/02/2024 Dripps: Fentanyl patch 25 mg No pressor DIET: Jevity 1.2 john 60 mL/hour DVT prophylaxis Lovenox 30mg SC daily Disposition: social work specialist consulted for transfer to the [facility]. Will be transfered to [place] in [facility] or [facility]. critical care time including review of charts, discussing case with patient's nurse, and son excluding procedures is 42 mins CODE STATUS: Full code Plan discussed with patient and his son at bedside in which all questions have been answered. Case discussed with Dr. Isabel Plan discussed with: Patient My Orders My Orders Orders - THA CRISOSTOMO RESIDENT Procedure Category Date Status Time Chest Portable XY 07/10/24 Resulted 04:00 Complete Blood Count LAB 07/11/24 Verified 04:00 Comprehensive LAB 07/11/24 Verified Metabolic Panel 04:00 Magnesium LAB 07/11/24 Verified 04:00 Dietary Evaluation Review Comments: 1) If GI is assessible consider Jevity 1.2 @ 60 ml/hr x24 hrs goal rate as tolerated 2) If pt remains NPO >7 days consider TPN to meet at least 75% of estimated needs 3) Advance pt diet when medically feasible to a Cardiac/Renal Specific K2,2gmNA,low phos,60g Pro diet modified per CALENDAR CONTROL CLERK BLOOD BANK recommendations 4) Continue current plan of care Expected Outcomes/Goals: 1) Pt to receive adequate nutrition support 2) Pt diet to advance CC Plasma Assessment Blood Product Administration S: [id number] Date of Service: Jul 10, 2024 Billing Provider: HOLGER ISABEL MD Common Visit Codes: 02056-[id number] CARE 30-74 MIN THA CRISOSTOMO RESIDENT Jul 10, 2024 18:58 HOLGER ISABEL MD Jul 11, 2024 14:44
[2024-07-11] VITALS (35 sets, daily range): BP systolic 132–174; BP diastolic 63–105; PULSE 62–101; RESP 11–25; TEMP 97.7–98.7; O2SAT 93–100
--- NOTE | 2024-07-11 04:39 | DVH ---
CHEST RADIOGRAPH Indication: acute respiratory failure Technique: Single frontal view of the chest was obtained Comparison: XY CHEST PORTABLE on DOS: 07/10/24 FINDINGS: Lines and Tubes: Right central venous catheter terminating in the right atrium. Tracheostomy tube is unchanged. Left PICC terminates in the superior vena cava. Lungs: Right lower lobe opacity is unchanged. Bilateral central predominant opacities. Pleura: No effusion. No pneumothorax. Cardiomediastinal contours: Stable. Bones: No acute osseous abnormality. IMPRESSION: Stable position of the support lines and tubes. No significant interval change in right lower lobe opacities and mild pulmonary edema.
[2024-07-11] MEDS: SODIUM CHL 0.9% 1000 ML BAG XX ONE (07:00)
[2024-07-11 07:15] LABS: Alanine Aminotransferase 12 U/L (7-40); Anion Gap 5 (5-15); Aspartate Aminotransferase 37 U/L (13-40); BUN/Creatinine Ratio 10.6 (10.0-20.0); Calcium 8.9 mg/dL (8.7-10.4); Chloride 104 mmol/L (98-107); Magnesium 2.2 mg/dL (1.6-2.6); Potassium 4.6 mmol/L (3.5-5.1); Sodium 142 mmol/L (136-145)
[2024-07-11 07:16] LABS: Total Protein 6.2 g/dL (5.7-8.2)
[2024-07-11 07:18] LABS: Albumin 2.5 g/dL (3.2-4.8); Alkaline Phosphatase 128 U/L (46-116); Bilirubin, Total 0.2 mg/dL (0.2-1.0); Blood Urea Nitrogen 33 mg/dL (9-23); Carbon Dioxide 33 mmol/L (20-31); Glucose 107 mg/dL (74-106)
[2024-07-11 07:54] LABS: Hematocrit 26.2 % (41.0-53.0); Hemoglobin 8.6 g/dL (13.5-17.5)
[2024-07-11 08:10] LABS: Basophils # (auto) 0 10 ^3/uL (0-0.2); Basophils % (auto) 0.8 % (0.0-2.0); Eosinophils # (auto) 0.5 10 ^3/uL (0-0.8); Eosinophils % (auto) 9.9 % (0.0-7.0); Lymphocytes # (auto) 0.9 10 ^3/uL (0.4-5.4); Lymphocytes % (auto) 17.9 % (10.0-50.0); Mean Corpuscular Hemoglobin 32.7 pg (28.0-32.0); Mean Corpuscular Hgb Conc. 32.6 g/dL (32.0-36.0); Mean Corpuscular Volume 100.3 fL (80.0-100.0); Monocytes # (auto) 0.5 10 ^3/uL (0-1.3); Monocytes % (auto) 10.2 % (0.0-12.0); Neutrophils % (auto) 61.2 % (37.0-80.0); Nucleated Red Blood Cells % 0.1 %; Platelet Count (auto) 161 10^3/uL (140-450); Red Blood Cells 2.59 10^6/uL (4.5-5.90); Red Cell Distribution Width 22.3 % (11.8-14.3)
[2024-07-11 08:12] LABS: Hemoglobin 8.6 g/dL (13.5-17.5)
[2024-07-11 08:13] LABS: Hematocrit 26.2 % (41.0-53.0)
[2024-07-11] MEDS: amLODIPine BESYLATE 5 MG TAB PO SCH (10:21)
--- NOTE | 2024-07-11 15:56 | DVHPN2 ---
Progress Note Date Seen: Jul 11, 2024 Has the PT tested + for MRSA If YES, has PT been informed?: Yes Medical Necessity Reason Pt with a Central, PICC or Fol: Yes The following are medically ne: Rubio Catheter Reason for rubio catheter: Strict I&O Subjective Review of Systems Pt has trach Patient reports: No new complaints Objective vital signs Vital Sign Date Time Temp Pulse Resp B/P (MAP) Pulse Ox O2 Delivery O2 Flow Rate FiO2 07/11/24 15:00 70 18 147/71 (96) 98 07/11/24 14:30 6.0 28 07/11/24 13:50 T-piece 07/11/24 13:00 98.2 98.2 Total Intake and Output 07/10/24 07/10/24 07/11/24 15:00 23:00 07:00 Intake Total 550 ml 876 ml Output Total 875 ml 250 ml Balance -325 ml 626 ml medications Current Medications Medications Dose Ordered Sig/[place] Route Start Time Stop Time Status Last Admin Dose Admin Enoxaparin Sodium 40 mg DAILY SC 06/10/24 10:00 UNV Enoxaparin Sodium 40 mg DAILY SC 06/17/24 10:00 UNV Epoetin Calin-epbx 10,000 unit TUTHSA SC 06/17/24 12:00 Hold 06/28/24 08:25 10,000 UNIT Sodium Chloride 10 ml QSHIFT@ IV 06/17/24 22:00 07/11/24 07:42 10 ML Acetaminophen 650 mg Q6HP PRN GT 06/20/24 11:30 06/28/24 17:05 650 MG Hydralazine HCl 10 mg Q4HP PRN IV 06/24/24 16:45 07/08/24 08:03 10 MG Omeprazole 20 mg DAILY GT 06/26/24 10:00 07/11/24 07:41 20 MG Albuterol 2.5 mg Q6HPRN PRN NEB 06/28/24 11:30 07/08/24 06:58 2.5 MG Lactulose 30 ml [id number] PRN PEG 07/01/24 10:15 Metoprolol Tartrate 50 mg BID PO 07/01/24 22:00 07/11/24 07:41 50 MG Fentanyl 25 mcg Q72H TD 07/01/24 17:30 07/09/24 14:09 25 MCG Enteral Nutritional Formula 1,000 ml 60ML/HR GT 07/02/24 11:00 07/10/24 20:28 1,000 ML Clonidine HCl 0.2 mg BID PO 07/03/24 22:00 07/11/24 07:42 0.2 MG Enoxaparin Sodium 30 mg DAILY SC 07/08/24 10:00 07/11/24 08:59 30 MG Hydralazine HCl 100 mg Q8HR PO 07/07/24 22:00 07/11/24 12:10 100 MG Heparin Sodium (Porcine) 4,000 units JACKY PRN XX 07/09/24 11:00 Amlodipine Besylate 10 mg DAILY PO 07/11/24 10:00 07/11/24 10:21 10 MG Examination Gen: Trach, in no acute distress CVS: RRR Ext: No edema Neuro: Alert laboratory and microbiology Laboratory Tests 07/11/24 07:45 07/11/24 05:18 Test 07/11/24 05:18 Range/Units Serum Glucose 107 H 74-106 mg/dL Microbiology Date/Time Source Procedure Growth Status 06/28/24 15:27 Blood Blood Culture - Final NO GROWTH AFTER 5 DAYS OF INCUBATION. Complete 06/25/24 08:20 Catheter Site Aerobic Culture - Final Methicillin Resistant S.aureus Acinetobacter baumannii MDRO Enterococcus faecalis Complete 06/11/24 16:06 Bronchial Washings Gram Stain - Final Complete 06/11/24 16:06 Respiratory Culture - Final Acinetobacter baumannii Pseudomonas aeruginosa Complete 05/30/24 11:45 Pleural Fluid Gram Stain - Final Complete 05/30/24 11:45 Pleural Fluid Body Fluid Culture - Final Complete 05/28/24 22:36 Urine - Catheterized Urine Culture - Final Enterobacter cloacae Escherichia coli Enterococcus faecalis - VRE Complete Labs and/or images reviewed: Labs reviewed by me Problem List/Assessment/Plan Problem List/Assessment/Plan IMP Acute kidney injury superimposed on chronic kidney disease stage 4, oliguric requiring initiation of hemodialysis- improving Acute respiratory failure, patient is trached Anemia suspected due to low blood loss s/p PRBC Septic shock Hypernatremia -resolved Hypomagnesemia-resolved Peripheral arterial disease Right above knee amputation Metabolic acidosis Chronic urinary retention-Improved urine output MRSA bacteremia REC HD scheduled for today Chemistry panel- monitor electrolytes Strict I&Os- pt has improved urine output IV antibiotic per ID We will continue to follow Plan discussed with: Other Dietary Evaluation Review Comments: 1) If GI is assessible consider Jevity 1.2 @ 60 ml/hr x24 hrs goal rate as tolerated 2) If pt remains NPO >7 days consider TPN to meet at least 75% of estimated needs 3) Advance pt diet when medically feasible to a Cardiac/Renal Specific K2,2gmNA,low phos,60g Pro diet modified per EVENTS SOLUTIONS CONSULTANT recommendations 4) Continue current plan of care Expected Outcomes/Goals: 1) Pt to receive adequate nutrition support 2) Pt diet to advance CC Plasma Assessment Blood Product Administration S: [id number] LASHAWN RUVALCABA DEOILING MACHINE OPERATOR Jul 11, 2024 15:56
--- NOTE | 2024-07-11 18:50 | DVHPN2 ---
Progress Note - Dictate Date Seen: Jul 11, 2024 Has the PT tested + for MRSA If YES, has PT been informed?: Yes Medical Necessity Reason Pt with a Central, PICC or Fol: Yes The following are medically ne: Rubio Catheter Reason for rubio catheter: Strict I&O Subjective somnolent vital signs Vital Sign Date Time Temp Pulse Resp B/P (MAP) Pulse Ox O2 Delivery O2 Flow Rate FiO2 07/11/24 18:00 79 21 160/83 (108) 96 07/11/24 17:47 T-piece 6 28 28 07/11/24 13:00 98.2 98.2 Total Intake and Output 07/10/24 07/10/24 07/11/24 15:00 23:00 07:00 Intake Total 550 ml 876 ml Output Total 875 ml 250 ml Balance -325 ml 626 ml medications Current Medications Medications Dose Ordered Sig/[place] Route Start Time Stop Time Status Last Admin Dose Admin Enoxaparin Sodium 40 mg DAILY SC 06/10/24 10:00 UNV Enoxaparin Sodium 40 mg DAILY SC 06/17/24 10:00 UNV Epoetin Calin-epbx 10,000 unit TUTHSA SC 06/17/24 12:00 Hold 06/28/24 08:25 10,000 UNIT Sodium Chloride 10 ml QSHIFT@,22 IV 06/17/24 22:00 07/11/24 07:42 10 ML Acetaminophen 650 mg Q6HP PRN GT 06/20/24 11:30 06/28/24 17:05 650 MG Hydralazine HCl 10 mg Q4HP PRN IV 06/24/24 16:45 07/08/24 08:03 10 MG Omeprazole 20 mg DAILY GT 06/26/24 10:00 07/11/24 07:41 20 MG Albuterol 2.5 mg Q6HPRN PRN NEB 06/28/24 11:30 07/08/24 06:58 2.5 MG Lactulose 30 ml [id number] PRN PEG 07/01/24 10:15 Metoprolol Tartrate 50 mg BID PO 07/01/24 22:00 07/11/24 07:41 50 MG Fentanyl 25 mcg Q72H TD 07/01/24 17:30 07/09/24 14:09 25 MCG Enteral Nutritional Formula 1,000 ml 60ML/HR GT 07/02/24 11:00 07/10/24 20:28 1,000 ML Clonidine HCl 0.2 mg BID PO 07/03/24 22:00 07/11/24 07:42 0.2 MG Enoxaparin Sodium 30 mg DAILY SC 07/08/24 10:00 07/11/24 08:59 30 MG Hydralazine HCl 100 mg Q8HR PO 07/07/24 22:00 07/11/24 12:10 100 MG Heparin Sodium (Porcine) 4,000 units JACKY PRN XX 07/09/24 11:00 Amlodipine Besylate 10 mg DAILY PO 07/11/24 10:00 07/11/24 10:21 10 MG objective Gen: nad, heent: nc/at, mmm lungs: Occasional coarse breath sounds cvs: no rub ext: no edema laboratory and microbiology Laboratory Tests 07/11/24 07:45 07/11/24 05:18 Test 07/11/24 05:18 Range/Units Serum Glucose 107 H 74-106 mg/dL Assessment/Plan Acute kidney injury on chronic kidney disease stage 4 -> likely septic ATN needing HD Acute respiratory failure on vent Anemia suspected due to low blood loss s/p PRBC Hypernatremia Hypokalemia Metabolic acidosis Chronic urinary retention sepsis due to bacteremia recs - tentatively for dialysis Jul 12 - as hemodynamics permit Dietary Evaluation Review Comments: 1) If GI is assessible consider Jevity 1.2 @ 60 ml/hr x24 hrs goal rate as tolerated 2) If pt remains NPO >7 days consider TPN to meet at least 75% of estimated needs 3) Advance pt diet when medically feasible to a Cardiac/Renal Specific K2,2gmNA,low phos,60g Pro diet modified per OCEAN BIOLOGIST recommendations 4) Continue current plan of care Expected Outcomes/Goals: 1) Pt to receive adequate nutrition support 2) Pt diet to advance Plan discussed with: Other CC Plasma Assessment Blood Product Administration S: [id number] SHANEL HOOK MD Jul 11, 2024 18:50
--- NOTE | 2024-07-11 19:26 | DVHPNRES ---
Progress Note Date Seen: Jul 11, 2024 Resident Creating Document: THA CRISOSTOMO RESIDENT Has the PT tested + for MRSA If YES, has PT been informed?: Yes Medical Necessity Reason Pt with a Central, PICC or Fol: Yes The following are medically ne: Rubio Catheter Reason for rubio catheter: Strict I&O Subjective Review of Systems This is a 65-year-old male with past medical history of CHF, CKD, COPD, dyslipidemia, hypertension, CVA brought to the hospital with shortness of breaths and at the level of consciousness. Admitted and intubated on 05/28, extubated on 06/09 but reintubated on 06/10. Epigastric performed on 06/13, PEG tube placed on 06/15. 07/01 - Patient seen and examined at bedside. Overnight no events, patient made 150 cc of urine in the morning and 125 cc in the night. Multiple bowel movements 500 cc on 06/30, 250 cc on the night of 07/01 and 200 on the morning of 07/01. Lactulose changed to p.r.n.. Patient is intubated and mechanically ventilated. Patient is satting 97% on trach collar via 6 L oxygen supplementation for the past 24 hours. He is not on pressor support. On fentanyl 20 mcg. Increase metoprolol to 50 mg b.i.d. and started clonidine 0.1 mg b.i.d.. Started fentanyl patch 25 mcg. IV fentanyl will be discontinued after overlapping her 4-5 hours with fentanyl patch. 07/02 - overnight patient made 100 mL of urine. 50 mL of output was drain from colostomy bag. Otherwise no events. Patient seen and examined at bedside. He underwent dialysis this morning and 2.5 L were drained. Chest x-ray reviewed shows worsening left-sided infiltrate. Patient is satting 98% on 3 color with 6 L oxygen supplementation. 07/03 - overnight colostomy bag was leaking so it was changed. Patient had 50 mL urine output in the maintenance technician 3rd shift, 115 mL during the of the of 07/02. Colostomy bag was drained with 50 mL of contents. Patient is still hypotensive systolic ranging in 150s to 160s therefore clonidine increased to 0.2 mg b.i.d.. Creatinine trending down to 3.2. Tunnel catheter consent obtained. IR consulted. NPO starting morning. Final blood culture 06/28 shows no growth. IV antibiotics discontinued. 07/04 - overnight patient had 200 mL of colostomy output. Urine output 125 in the day of 07/03 and 150 in the maintenance technician 3rd shift. Tunneled catheter placed to the right upper chest. DC left IJ catheter once dialysis session completed. Undergoing dialysis session today. 07/07 - patient seen and examined in the bedside. Underwent dialysis today. Over the weekend bronchoscopy completed 07/05 showed left lower lobe atelectasis due to mucus plugging and right lower lobe mucous plugging. 07/08 - pt desatted to 70s in the morning. CXR shows air in the subcutaneous tiisues. CT chest w/o ordered, showed Pneumomediastinum and pneumopericardium. Bilateral pleural effusions, left slightly greater than right. Bilateral lower lobe opacities compatible with compressive atelectasis. o2 supp increased to 10L from 6, and fio2 increased to 100%. Pt underwent bronch,showed Left lower lobe atelectasis due to mucous plugging. Mucous plugging from L6-L10. Pt switched to ventilator and IV fent started. Facial swelling resolving. 07/09 - overnight, pt desatted which improved with suctioning. HD today, lsix 40mg IV once. 07/10 - patient seen and examined at the bedside. No overnight events. Patient is more responsive, moving upper extremities to command . 07/11 - overnight no acute events. Saturating 97 on 6 L oxygen supplementation Objective vital signs Vital Sign Date Time Temp Pulse Resp B/P (MAP) Pulse Ox O2 Delivery O2 Flow Rate FiO2 07/11/24 19:19 174/85 07/11/24 18:00 79 21 96 07/11/24 17:47 T-piece 6 28 28 07/11/24 13:00 98.2 98.2 Total Intake and Output 07/10/24 07/10/24 07/11/24 15:00 23:00 07:00 Intake Total 550 ml 876 ml Output Total 875 ml 250 ml Balance -325 ml 626 ml medications Current Medications Medications Dose Ordered Sig/[place] Route Start Time Stop Time Status Last Admin Dose Admin Enoxaparin Sodium 40 mg DAILY SC 06/10/24 10:00 UNV Enoxaparin Sodium 40 mg DAILY SC 06/17/24 10:00 UNV Epoetin Morena-epbx 10,000 unit TUTHSA SC 06/17/24 12:00 Hold 06/28/24 08:25 10,000 UNIT Sodium Chloride 10 ml QSHIFT@10,22 IV 06/17/24 22:00 07/11/24 07:42 10 ML Acetaminophen 650 mg Q6HP PRN GT 06/20/24 11:30 06/28/24 17:05 650 MG Hydralazine HCl 10 mg Q4HP PRN IV 06/24/24 16:45 07/11/24 19:19 10 MG Omeprazole 20 mg DAILY GT 06/26/24 10:00 07/11/24 07:41 20 MG Albuterol 2.5 mg Q6HPRN PRN NEB 06/28/24 11:30 07/08/24 06:58 2.5 MG Lactulose 30 ml [id number] PRN PEG 07/01/24 10:15 Metoprolol Tartrate 50 mg BID PO 07/01/24 22:00 07/11/24 07:41 50 MG Fentanyl 25 mcg Q72H TD 07/01/24 17:30 07/09/24 14:09 25 MCG Enteral Nutritional Formula 1,000 ml 60ML/HR GT 07/02/24 11:00 07/10/24 20:28 1,000 ML Clonidine HCl 0.2 mg BID PO 07/03/24 22:00 07/11/24 07:42 0.2 MG Enoxaparin Sodium 30 mg DAILY SC 07/08/24 10:00 07/11/24 08:59 30 MG Hydralazine HCl 100 mg Q8HR PO 07/07/24 22:00 07/11/24 12:10 100 MG Heparin Sodium (Porcine) 4,000 units JACKY PRN XX 07/09/24 11:00 Amlodipine Besylate 10 mg DAILY PO 07/11/24 10:00 07/11/24 10:21 10 MG Examination Patient lying in bed, in no acute distress. Patient is alert and following commands General: afebrile, palor, mucosae are moist. Resolving facial swelling. Cardiovascular: Regular S1 and S2. No murmurs, gallops or rubs. No JVD elevation. Resolving Bilateral pitting edema. Respiratory: Decreased but equal Bilateral air entry. Saturating 98% with 6 L supplementation via tracheostomy. Abdomen: Soft, nontender, nondistended, normoactive bowel sounds, no rebound tenderness, no organomegaly, no masses. Suprapubic catheter seen draining urine and colostomy bag seen draining 10 mL of dark yellow which is liquid in consistency. Peg tube in place. Genitourinary: Stage III sacral ulcer, skin non intact, draining pus and erythema noted. MSK/skin: Patient is moving upper extremities to commands.. Skin is dry and warm Neurological: Pupils are isocoric and reactive. laboratory and microbiology Laboratory Tests 07/11/24 07:45 07/11/24 05:18 Test 07/11/24 05:18 Range/Units Serum Glucose 107 H 74-106 mg/dL Microbiology Date/Time Source Procedure Growth Status 06/28/24 15:27 Blood Blood Culture - Final NO GROWTH AFTER 5 DAYS OF INCUBATION. Complete 06/25/24 08:20 Catheter Site Aerobic Culture - Final Methicillin Resistant S.aureus Acinetobacter baumannii MDRO Enterococcus faecalis Complete 06/11/24 16:06 Bronchial Washings Gram Stain - Final Complete 06/11/24 16:06 Respiratory Culture - Final Acinetobacter baumannii Pseudomonas aeruginosa Complete 05/30/24 11:45 Pleural Fluid Gram Stain - Final Complete 05/30/24 11:45 Pleural Fluid Body Fluid Culture - Final Complete 05/28/24 22:36 Urine - Catheterized Urine Culture - Final Enterobacter cloacae Escherichia coli Enterococcus faecalis - VRE Complete Labs and/or images reviewed: Labs reviewed by me, Image(s) reviewed by me Problem List/Assessment/Plan Problem List/Assessment/Plan NEURO: Acute metabolic encephalopathy likely due to sepsis History of seizure History of stroke - Old infarct in the right frontal lobe and right parietal occipital lobe Patient is sedated and on mechanical ventilation, RASS scores -2 History of seizure during last admission(1 month back) used Keppra for 1 week Discontinued Keppra, on 06/16 EEG shows abnormal EEG recording consistent with the presence of a diffuse nonspecific encephalopathic state CARDIOVASCULAR: Hypertension Continue injection hydralazine 10 mg q.6 hours as needed Increase metoprolol to 50 mg b.i.d., Continue amlodipine 10 mg, hydralazine 100 mg t.i.d. Started clonidine 0.1 mg twice daily 07/01. Clonidine increased to 0.2 mg b.i.d. 07/03 Final blood culture 06/28 shows no growth PULMONARY: Acute Hypoxic Respiratory Failure likely due to pneumonia Septic shock likely due to pneumonia, improved Pneumonia likely due to MRSA and Enterobacter cloacae Pneumomediastinum and pneumopericardium - Patient is sedated and mechanically ventilated with PEEP of 30% - CT scan shows [id number] left pleural effusion - MRSA nares screening, COVID-19 and flu are negative - Bronchoscopy performed on 06/11, there was some thin mucus secretion on bilateral side, bronchial lavage of right lower lobe and left lower lobe was performed, and the culture results shows Pseudomonas aeruginosa and Enterobacter baumanni, MDR; ID has been consulted - Sputum culture from bronchoalveolar lavage from 05/24/24 shows MRSA, Enterobacter cloacae - Blood culture from the 06/02/24 shows Staphylococcus epidermidis , Staph hominis - Repeat culture from 06/09/2024 shows no growth - Stopped IV linezolid, given for 11 days, discontinued meropenem, started on 06/08 and given for 12 days - discontinued N-acetylcysteine 07/01 - Breathing treatment q.6 hours p.r.n. -started fentanyl patch 25 mcg 07/01 - bronchoscopy completed 07/05 showed left lower lobe atelectasis due to mucus plugging and right lower lobe mucous plugging. - 07/08 - pt desatted to 70s in the morning. CXR shows air in the subcutaneous tissues. CT chest w/o ordered, showed Pneumomediastinum and pneumopericardium. Bilateral pleural effusions, left slightly greater than right. Bilateral lower lobe opacities compatible with compressive atelectasis. o2 supp increased to 10L from 6, and fio2 increased to 100%. Pt underwent bronch,showed Left lower lobe atelectasis due to mucous plugging. Mucous plugging from L6-L10. GI - GI ppx: omeprazole 20mg daily via OG tube - Hepatitis-C virus antibody positive - Repeat stool occult blood test is negative - CT abdominopelvic without contrast shows no evidence of intra-abdominal hemorrhage - Tracheostomy is performed on 06/13 - PEG tube is placed on 06/15 - Bowel regimen: Lactulose 30 mL b.i.d. change to p.r.n. 07/01 : FROYLAN, possible VMN on ESRD requiring hemodialysis - Nephrology consulted, epoetin morena 07178 units SC post dialysis. Radiology for tunneled hemodialysis catheter when the blood culture negative for 72 hours - Stopped Bumix 1mg BID - creatinine increased to 3.91 from 3.64 - Homer catheter placed on left internal jugular, on 06/26, removed on 07/04 - tunneled catheter placed to the right upper chest 07/04 - hemodialysis completed 07/02 and 07/04 and 07/07, 07/09, UTI, urinalysis shows UTI picture - Urine culture from 05/28/2024 shows Enterobacter, E coli, Enterococcus faecalis Status post right lower limb, AKA likely due to PAD Decubitus ulcer - There are multiple stage 3-4 sacral ulcers draining pus - position changing every 2 hours and dressing -started fentanyl patch 25 mcg 07/01 HEME Severe anemia, transfused 4 pack of red blood cells Anemia of chronic disease Thrombocytopenia - current HB is 8.6 - Retacrit T/TH/SAT ID: - Sputum culture from bronchoalveolar lavage from 05/24/24 shows MRSA, Enterobacter cloacae - Blood culture from the 06/02/24 shows Staphylococcus epidermidis , Staph hominis - Repeat culture from 06/09/2024 shows no growth - culture results from BAL from 06/11 shows Pseudomonas aeruginosa and Enterobacter baumanni, MDR - discontinued IV linezolid starting 06/28 and meropenem starting 06/25, discontinued in 07/03 - previously received vancomycin - catheter site culture 06/25 completed shows MRSA, Acinetobacter baumannii MDRO, Enterococcus faecalis. SKIN Possible keloid - There is a growth on the left shoulder, per son, lesion has been present for several years - Follow up on outpatient basis Metabolic: Hypernatremia, improved Hypokalemia, discontinued potassium supplementation given ESRD Hyperkalemia, improved Mild hyponatremia, monitoring Hypoglycemic episodes, improved Hypomagnesemia, supplemented LINES/DRAINS/ACCESS: ETT, intubated on 05/28/2024 and tracheostomy performed on 06/11, PEG tube placed on 06/15 IV access Left internal jugular CVC, placed on 06/26 and removed on 07/04 Right IJ hemodialysis catheter placed 07/04 Suprapubic catheter, changed on 06/02/2024 Dripps: Fentanyl patch 25 mg No pressor DIET: Jevity 1.2 john 60 mL/hour DVT prophylaxis Lovenox 30mg SC daily Disposition: social science instructor consulted for transfer to the [facility]. Will be transfered to [place] in [facility] or [facility]. critical care time including review of charts, discussing case with patient's nurse, and son excluding procedures is 42 mins CODE STATUS: Full code Plan discussed with patient and his son at bedside in which all questions have been answered. Case discussed with Dr. Iasbel. Hemodialysis tomorrow Plan discussed with: Patient My Orders My Orders Orders - THA CRISOSTOMO Procedure Category Date Status Time Chest Portable XY 07/11/24 Resulted 03:05 Amlodipine Tablet PHA 07/11/24 In Process (Norvasc Tablet) 10:00 Complete Blood Count LAB 07/12/24 Verified 04:00 Comprehensive LAB 07/12/24 Verified Metabolic Panel 04:00 Magnesium LAB 07/12/24 Verified 04:00 Dietary Evaluation Review Comments: 1) If GI is assessible consider Jevity 1.2 @ 60 ml/hr x24 hrs goal rate as tolerated 2) If pt remains NPO >7 days consider TPN to meet at least 75% of estimated needs 3) Advance pt diet when medically feasible to a Cardiac/Renal Specific K2,2gmNA,low phos,60g Pro diet modified per FLANGE MACHINE OPERATOR recommendations 4) Continue current plan of care Expected Outcomes/Goals: 1) Pt to receive adequate nutrition support 2) Pt diet to advance CC Plasma Assessment Blood Product Administration S: [id number] Date of Service: Jul 11, 2024 Billing Provider: HOLGER ISABEL MD Common Visit Codes: [id number] CARE 30-74 MIN THA CRISOSTOMO Jul 11, 2024 19:26 HOLGER ISABEL MD Jul 13, 2024 12:35
[2024-07-11] MEDS: EPOETIN ALFA-EPBX 10,000 UNIT/1ML VIAL SC ONE (20:58)
[2024-07-12] VITALS (58 sets, daily range): BP systolic 134–191; BP diastolic 67–96; PULSE 61–90; RESP 10–27; TEMP 96.8–98.8; O2SAT 92–100
[2024-07-12] MEDS: hydrALAZINE HCL 20 MG/ML VL IV ONE ×2 (02:54→04:40)
--- NOTE | 2024-07-12 05:39 | DVH ---
CHEST RADIOGRAPH Indication: ACUTE RESPIRATORY FAILURE Technique: Single frontal view of the chest was obtained COMPARISON: XY CHEST PORTABLE on DOS: 07/11/24, XY CHEST PORTABLE on DOS: 07/10/24, XY CHEST PORTABLE on DOS: 07/09/24, XY CHEST PORTABLE on DOS: 07/08/24, XY CHEST XRAY 1 VIEW on DOS: 07/03/24 FINDINGS: Lines and Tubes: Endotracheal tube, left PICC and tunneled right central venous catheter in satisfact ory position. Lungs: Congestion Pleura: No effusion. No pneumothorax. Cardiomediastinal contours: Cardiomegaly Bones: Unremarkable IMPRESSION: Lines and tubes in satisfactory position. No significant interval change.
[2024-07-12 06:16] LABS: Anion Gap 6 (5-15); BUN/Creatinine Ratio 11.9 (10.0-20.0); Chloride 104 mmol/L (98-107); Magnesium 2.1 mg/dL (1.6-2.6); Potassium 4.9 mmol/L (3.5-5.1); Sodium 141 mmol/L (136-145); Total Protein 6.3 g/dL (5.7-8.2)
[2024-07-12 06:34] LABS: Basophils # (auto) 0 10 ^3/uL (0-0.2); Basophils % (auto) 0.6 % (0.0-2.0); Eosinophils # (auto) 0.4 10 ^3/uL (0-0.8); Eosinophils % (auto) 7.7 % (0.0-7.0); Hematocrit 26.9 % (41.0-53.0); Hemoglobin 8.8 g/dL (13.5-17.5); Lymphocytes % (auto) 17.6 % (10.0-50.0); Mean Corpuscular Hemoglobin 32.5 pg (28.0-32.0); Mean Corpuscular Hgb Conc. 32.6 g/dL (32.0-36.0); Mean Corpuscular Volume 99.9 fL (80.0-100.0); Monocytes # (auto) 0.6 10 ^3/uL (0-1.3); Monocytes % (auto) 9.8 % (0.0-12.0); Neutrophils # (auto) 3.7 10 ^3/uL (1.6-8.6); Neutrophils % (auto) 64.3 % (37.0-80.0); Nucleated Red Blood Cells % 0.1 %; Platelet Count (auto) 164 10^3/uL (140-450); Red Blood Cells 2.69 10^6/uL (4.5-5.90); White Blood Cell 5.7 10^3/uL (4.4-10.8)
[2024-07-12] MEDS: SODIUM CHL 0.9% 1000 ML BAG XX ONE (06:45)
[2024-07-12 07:06] LABS: Red Cell Distribution Width 21.5 % (11.8-14.3)
[2024-07-12 07:57] LABS: Base Excess 5.1 mmol/L (-2.0-3.0)
[2024-07-12 08:23] LABS: Albumin 2.6 g/dL (3.2-4.8); Alkaline Phosphatase 131 U/L (46-116); Aspartate Aminotransferase 42 U/L (13-40); Bilirubin, Total 0.2 mg/dL (0.2-1.0); Blood Urea Nitrogen 42 mg/dL (9-23); Carbon Dioxide 31 mmol/L (20-31); Glucose 107 mg/dL (74-106)
[2024-07-12 08:46] LABS: Alanine Aminotransferase 16 U/L (7-40)
[2024-07-12 09:25] LABS: Anisocytosis Slight
[2024-07-12 09:26] LABS: Platelet Estimate Adequate
--- NOTE | 2024-07-12 12:29 | DVHPN2 ---
Subjective Seen and examined at bedside. on 6L 28%. Undergoing dialysis 1.7Liters removed. Reviewed: Care Plan, H&P, Labs, Medications, Previous Orders, Radiology, Other Changes from previous H/P or p: No Changes General: Per HPI Objective Vitals Vital Signs Date Time Temp Pulse Resp B/P (MAP) Pulse Ox O2 Delivery O2 Flow Rate FiO2 07/12/24 12:22 17 98 T-piece 01 11 2807/12/24 11:15 68 144/78 (100) 07/12/24 09:00 96.8 96.8 Intake/Output Intake and Output 07/12/24 07:00 Intake Total 1391 ml Output Total 820 ml Balance 571 ml Intake Oral 500 ml Tube Feeding 891 ml Output Urine Total 320 ml Stool Total 500 ml Exam Patient lying in bed, in no acute distress. Patient is alert and following commands General: afebrile, palor, mucosae are moist. Resolving facial swelling. Cardiovascular: Regular S1 and S2. No murmurs, gallops or rubs. No JVD elevation. Resolving Bilateral pitting edema. Respiratory: Decreased but equal Bilateral air entry. Saturating 98% with 6 L supplementation via tracheostomy. Abdomen: Soft, nontender, nondistended, normoactive bowel sounds, no rebound tenderness, no organomegaly, no masses. Suprapubic catheter seen draining urine and colostomy bag seen draining 10 mL of dark yellow which is liquid in consistency. Peg tube in place. Genitourinary: Stage III sacral ulcer, skin non intact, draining pus and erythema noted. MSK/skin: Patient is moving upper extremities to commands.. Skin is dry and warm Neurological: Pupils are isocoric and reactive. General Appearance: Other (Sedated) Extremities: Other (Some bilateral lower extremity edema) Medications Current Medications Medications Dose Ordered Sig/[place] Route Start Time Stop Time Status Last Admin Dose Admin Enoxaparin Sodium 40 mg DAILY SC 06/10/24 10:00 UNV Enoxaparin Sodium 40 mg DAILY SC 06/17/24 10:00 UNV Epoetin Calin-epbx 10,000 unit TUTHSA SC 06/17/24 12:00 Hold 06/28/24 08:25 10,000 UNIT Sodium Chloride 10 ml QSHIFT@,22 IV 06/17/24 22:00 07/12/24 07:49 10 ML Acetaminophen 650 mg Q6HP PRN GT 06/20/24 11:30 06/28/24 17:05 650 MG Hydralazine HCl 10 mg Q4HP PRN IV 06/24/24 16:45 07/12/24 01:32 10 MG Omeprazole 20 mg DAILY GT 06/26/24 10:00 07/12/24 07:49 20 MG Albuterol 2.5 mg Q6HPRN PRN NEB 06/28/24 11:30 07/08/24 06:58 2.5 MG Lactulose 30 ml [id number] PRN PEG 07/01/24 10:15 Metoprolol Tartrate 50 mg BID PO 07/01/24 22:00 07/12/24 07:50 50 MG Fentanyl 25 mcg Q72H TD 07/01/24 17:30 07/09/24 14:09 25 MCG Enteral Nutritional Formula 1,000 ml 60ML/HR GT 07/02/24 11:00 07/11/24 20:03 1,000 ML Clonidine HCl 0.2 mg BID PO 07/03/24 22:00 07/12/24 07:51 0.2 MG Enoxaparin Sodium 30 mg DAILY SC 07/08/24 10:00 07/12/24 07:50 30 MG Hydralazine HCl 100 mg Q8HR PO 07/07/24 22:00 07/12/24 05:56 100 MG Heparin Sodium (Porcine) 4,000 units JACKY PRN XX 07/09/24 11:00 Amlodipine Besylate 10 mg DAILY PO 07/11/24 10:00 07/12/24 07:50 10 MG Laboratory Results Laboratory Tests 07/12/24 04:47 Chemistry Test 07/12/24 04:47 Albumin 2.6 g/dL (3.2-4.8) L Calcium Level 9.0 mg/dL (8.7-10.4) Magnesium Level 2.1 mg/dL (1.6-2.6) Total Protein 6.3 g/dL (5.7-8.2) LFT Test 07/12/24 04:47 Alanine Aminotransferase (ALT) 16 U/L (7-40) Alkaline Phosphatase 131 U/L (46-116) H Aspartate Amino Transferase (AST) 42 U/L (13-40) H Total Bilirubin 0.2 mg/dL (0.2-1.0) Urinalysis Test 05/28/24 22:36 05/30/24 04:30 Urine Color Dark-brown (Yellow) Urine Clarity Ex.turbid (Clear) Urine pH 6.0 (5.0-9.0) Urine Specific [place] 1.017 (1.001-1.035) Urine Protein 2+ (Negative) H Urine Ketones Trace (Negative) Urine Blood 1+ /uL (Negative) H Urine Nitrite Negative (Negative) Urine Bilirubin Negative (Negative) Urine Urobilinogen Normal mg/dL (Negative) Urine Leukocyte Esterase 3+ /uL (Negative) Urine RBC 56 /hpf (0 - 3) Urine WBC 3664 /hpf (0 - 3) Urine WBC Clumps Present /hpf (None Seen) Urine Squamous Epithelial Cells Many /hpf (<5) Urine Bacteria Mod /hpf (None Seen) H Urine Glucose Normal mg/dL (Normal) Urine Creatinine 33.57 mg/dL (30.0-125.0) Urine Sodium 85 mmol/L (40-220) Blood Gas Results Test 07/12/24 07:47 Arterial Blood pH 7.512 (7.350-7.450) FiO2 % 28.0 Microbiology Microbiology Date/Time Source Procedure Growth Status 06/28/24 15:27 Blood Blood Culture - Final NO GROWTH AFTER 5 DAYS OF INCUBATION. Complete 06/25/24 08:20 Catheter Site Aerobic Culture - Final Methicillin Resistant S.aureus Acinetobacter baumannii MDRO Enterococcus faecalis Complete 06/11/24 16:06 Bronchial Washings Gram Stain - Final Complete 06/11/24 16:06 Respiratory Culture - Final Acinetobacter baumannii Pseudomonas aeruginosa Complete 05/30/24 11:45 Pleural Fluid Gram Stain - Final Complete 05/30/24 11:45 Pleural Fluid Body Fluid Culture - Final Complete 05/28/24 22:36 Urine - Catheterized Urine Culture - Final Enterobacter cloacae Escherichia coli Enterococcus faecalis - VRE Complete Assessment/Plan Assessment/Plan Acute metabolic encephalopathy likely due to sepsis- Completed Abx History of seizure History of stroke - Old infarct in the right frontal lobe and right parietal occipital lobe Acute Hypoxic Respiratory Failure likely due to pneumonia- Trached+ Septic shock likely due to pneumonia, improved- Cont Abx Pneumonia likely due to MRSA and Enterobacter cloacae Pneumomediastinum and pneumopericardium FROYLAN, possible VMN on ESRD requiring hemodialysis Plan: Cont Dialysis. Pending placement Plan discussed with: Patient My Orders Orders - SHARLA ALLEN MD Procedure Category Date Status Time * Content Checker CONS 07/12/24 Transmitted Consult Complete Blood Count LAB 07/13/24 Verified 04:00 Magnesium LAB 07/13/24 Verified 04:00 Comprehensive LAB 07/13/24 Verified Metabolic Panel 04:00 Date of Service: Jul 12, 2024 Billing Provider: SHARLA ALLEN MD Common Visit Codes: [id number] INP/OBS CARE(HIGH) SHARLA ALLEN MD Jul 12, 2024 12:28
[2024-07-12] MEDS: fentaNYL 25MCG/HR 25 MCG/HR PAT TD SCH (17:11)
--- NOTE | 2024-07-12 19:33 | DVHPN2 ---
Progress Note - Dictate Date Seen: Jul 12, 2024 Has the PT tested + for MRSA If YES, has PT been informed?: Yes Medical Necessity Reason Pt with a Central, PICC or Fol: Yes The following are medically ne: Rubio Catheter Reason for rubio catheter: Strict I&O Subjective tolerating dialysis vital signs Vital Sign Date Time Temp Pulse Resp B/P (MAP) Pulse Ox O2 Delivery O2 Flow Rate FiO2 07/12/24 18:30 77 22 158/80 (106) 94 07/12/24 18:06 Trach Collar 6.0 07/12/24 18:06 28 28 07/12/24 16:00 98.8 98.8 Total Intake and Output 07/11/24 07/11/24 07/12/24 15:00 23:00 07:00 Intake Total 750 ml 641 ml Output Total 620 ml 200 ml Balance 130 ml 441 ml medications Current Medications Medications Dose Ordered Sig/[place] Route Start Time Stop Time Status Last Admin Dose Admin Enoxaparin Sodium 40 mg DAILY SC 06/10/24 10:00 UNV Enoxaparin Sodium 40 mg DAILY SC 06/17/24 10:00 UNV Epoetin Calin-epbx 10,000 unit TUTHSA SC 06/17/24 12:00 Hold 06/28/24 08:25 10,000 UNIT Sodium Chloride 10 ml QSHIFT@10,22 IV 06/17/24 22:00 07/12/24 07:49 10 ML Acetaminophen 650 mg Q6HP PRN GT 06/20/24 11:30 06/28/24 17:05 650 MG Hydralazine HCl 10 mg Q4HP PRN IV 06/24/24 16:45 07/12/24 01:32 10 MG Omeprazole 20 mg DAILY GT 06/26/24 10:00 07/12/24 07:49 20 MG Albuterol 2.5 mg Q6HPRN PRN NEB 06/28/24 11:30 07/08/24 06:58 2.5 MG Lactulose 30 ml [id number] PRN PEG 07/01/24 10:15 Metoprolol Tartrate 50 mg BID PO 07/01/24 22:00 07/12/24 07:50 50 MG Enteral Nutritional Formula 1,000 ml 60ML/HR GT 07/02/24 11:00 07/11/24 20:03 1,000 ML Clonidine HCl 0.2 mg BID PO 07/03/24 22:00 07/12/24 07:51 0.2 MG Enoxaparin Sodium 30 mg DAILY SC 07/08/24 10:00 07/12/24 07:50 30 MG Hydralazine HCl 100 mg Q8HR PO 07/07/24 22:00 07/12/24 13:26 100 MG Heparin Sodium (Porcine) 4,000 units JACKY PRN XX 07/09/24 11:00 Amlodipine Besylate 10 mg DAILY PO 07/11/24 10:00 07/12/24 07:50 10 MG Fentanyl 25 mcg Q72H TD 07/12/24 13:00 07/12/24 17:11 25 MCG objective Gen: nad, heent: nc/at, mmm lungs: Occasional coarse breath sounds cvs: no rub ext: no edema laboratory and microbiology Laboratory Tests 07/12/24 04:47 Test 07/12/24 04:47 Range/Units Serum Glucose 107 H 74-106 mg/dL Assessment/Plan Acute kidney injury on chronic kidney disease stage 4 -> likely septic ATN needing HD Acute respiratory failure on vent Anemia suspected due to low blood loss s/p PRBC Hypernatremia Hypokalemia Metabolic acidosis Chronic urinary retention sepsis due to bacteremia recs - tolerated dialysis earlier today - We will continue with maintenance kidney replacement therapy - next dialysis tentatively July 14 Dietary Evaluation Review Comments: 1) If GI is assessible consider Jevity 1.2 @ 60 ml/hr x24 hrs goal rate as tolerated 2) If pt remains NPO >7 days consider TPN to meet at least 75% of estimated needs 3) Advance pt diet when medically feasible to a Cardiac/Renal Specific K2,2gmNA,low phos,60g Pro diet modified per HEDIS COORDINATOR recommendations 4) Continue current plan of care Expected Outcomes/Goals: 1) Pt to receive adequate nutrition support 2) Pt diet to advance Plan discussed with: Other CC Plasma Assessment Blood Product Administration S: [id number] SHANEL HOOK MD Jul 12, 2024 19:33
--- NOTE | 2024-07-12 22:38 | DVHPN2 ---
Progress Note - Dictate Date Seen: Jul 12, 2024 Has the PT tested + for MRSA If YES, has PT been informed?: Yes Medical Necessity Reason Pt with a Central, PICC or Fol: Yes The following are medically ne: Rubio Catheter Reason for rubio catheter: Strict I&O Subjective Patient seen and examined at bedside. On trach with humidified O2. Overnight events reviewed. vital signs Vital Sign Date Time Temp Pulse Resp B/P (MAP) Pulse Ox O2 Delivery O2 Flow Rate FiO2 07/12/24 21:39 147/96 07/12/24 21:39 86 07/12/24 18:30 22 94 07/12/24 18:06 Trach Collar 6.0 07/12/24 18:06 28 28 07/12/24 16:00 98.8 98.8 Total Intake and Output 07/11/24 07/11/24 07/12/24 15:00 23:00 07:00 Intake Total 750 ml 641 ml Output Total 620 ml 200 ml Balance 130 ml 441 ml medications Current Medications Medications Dose Ordered Sig/[place] Route Start Time Stop Time Status Last Admin Dose Admin Enoxaparin Sodium 40 mg DAILY SC 06/10/24 10:00 UNV Enoxaparin Sodium 40 mg DAILY SC 06/17/24 10:00 UNV Epoetin Calin-epbx 10,000 unit TUTHSA SC 06/17/24 12:00 Hold 06/28/24 08:25 10,000 UNIT Sodium Chloride 10 ml QSHIFT@10,22 IV 06/17/24 22:00 07/12/24 21:39 10 ML Acetaminophen 650 mg Q6HP PRN GT 06/20/24 11:30 06/28/24 17:05 650 MG Hydralazine HCl 10 mg Q4HP PRN IV 06/24/24 16:45 07/12/24 19:47 10 MG Omeprazole 20 mg DAILY GT 06/26/24 10:00 07/12/24 07:49 20 MG Albuterol 2.5 mg Q6HPRN PRN NEB 06/28/24 11:30 07/08/24 06:58 2.5 MG Lactulose 30 ml [id number] PRN PEG 07/01/24 10:15 Metoprolol Tartrate 50 mg BID PO 07/01/24 22:00 12/28/24 21:39 50 MG Enteral Nutritional Formula 1,000 ml 60ML/HR GT 07/02/24 11:00 07/12/24 20:03 1,000 ML Clonidine HCl 0.2 mg BID PO 07/03/24 22:00 07/12/24 21:39 0.2 MG Enoxaparin Sodium 30 mg DAILY SC 07/08/24 10:00 07/12/24 07:50 30 MG Hydralazine HCl 100 mg Q8HR PO 07/07/24 22:00 07/12/24 21:38 100 MG Heparin Sodium (Porcine) 4,000 units JACKY PRN XX 07/09/24 11:00 Amlodipine Besylate 10 mg DAILY PO 07/11/24 10:00 07/12/24 07:50 10 MG Fentanyl 25 mcg Q72H TD 07/12/24 13:00 07/12/24 17:11 25 MCG objective Gen.: Patient lying in bed in no apparent distress. On trach with humidified O2. Head: Normocephalic, atraumatic. Eyes: EOMI/PERRLA. Ears: Normal hearing. Normal anatomy. Neck/trachea: Trach in place. Nose: Normal external anatomy. Mouth: Moist mucous membranes. Chest: Decreased air entry bilaterally. No wheezing or rhonchi. Cardiovascular: Positive S1, positive S2. Regular rate and rhythm. Abdomen: Positive bowel sounds in all 4 quadrants. Soft, non-tender, non- distended. : Deferred. Rectal: Deferred. Skin: Warm, dry. Intact. Extremities: 2+ radial pulses bilaterally. No lower extremity edema. Neuro: Awake, alert, oriented x3. No gross motor or sensory deficits. Cranial nerves II through XII intact. Gait not assessed. laboratory and microbiology Laboratory Tests 07/12/24 04:47 Test 07/12/24 04:47 Range/Units Serum Glucose 107 H 74-106 mg/dL Assessment/Plan Impression: Acute hypoxic respiratory failure Multifocal pneumonia Atelectasis Congestive heart failure Tracheostomy Events: S/p hemodialysis today. On 6 LPM via trach. Increased trach secretions. Trach care Pulmonary toileting Placed Shiley 6 XLT on 07/08/24. Humidified O2 Off sedation Patient is awake, alert. CXR shows pulmonary vascular congestion. ABG notable for alkalemia Continue bronchodilators Wound care. Tube feeds for nutritional support. HOB elevation Aspiration precautions. HD per Nephrology. Monitor renal function Monitor electrolytes. Supplement as necessary. Awaiting LTAC placement. S/p bronchoscopy with BAL on 07/08/24. See procedure note for full details. Rest of plan as noted below Plan: S/p trach, trach collar - on 6 L humidified O2 Off sedation Off pressors,hemodynamically stable. Antibiotics - completed Positive hepatitis C. IV fluid hydration Maintain euvolemia Monitor renal function Monitor electrolytes. Supplement as necessary. Monitor ins and outs. Tube feeds for nutritional support. GI prophylaxis. DVT prophylaxis. Prognosis: Poor given patient's multiple co-morbidities. Condition: Critical Rest of plan per hospitalist and other consultants. A total of 35 minutes of critical care time was spent reviewing the patient record, examining the patient, making a diagnostic and therapeutic plan, discussing this plan with the medical personnel, following up on diagnostic studies and following the patient for clinical stability excluding any and all procedures. At least 50% of this time was spent in direct, [id number] contact. Thank you Anthony Ugalde NP, for allowing me to participate in this patient's care. Further recommendations will depend on the patient's clinical course. Please do not hesitate to contact me if you have any questions or concerns. This medical document was created using an electronic medical record system with [employer] computerized dictation system. Although these documentations are being carefully reviewed, there may still be some phonetic and typographical changes. The errors are purely typographical, due to imperfection on the software program, and do not reflect any compromise in the patient's medical care. Dietary Evaluation Review Comments: 1) If GI is assessible consider Jevity 1.2 @ 60 ml/hr x24 hrs goal rate as tolerated 2) If pt remains NPO >7 days consider TPN to meet at least 75% of estimated needs 3) Advance pt diet when medically feasible to a Cardiac/Renal Specific K2,2gmNA,low phos,60g Pro diet modified per POUNCER MACHINE recommendations 4) Continue current plan of care Expected Outcomes/Goals: 1) Pt to receive adequate nutrition support 2) Pt diet to advance Plan discussed with: Other (DORCAS Clemente) Critical Care Time(min): 35 CC Plasma Assessment Blood Product Administration S: [id number] ELIANE ALTAMIRANO MD Jul 12, 2024 22:38
--- NOTE | 2024-07-12 23:21 | DVHPN2 ---
Consult Progress Note Date Seen: Jul 09, 2024 Subjective Patient reports: Feels better (no hypoxia) Objective vital signs Vital Sign Date Time Temp Pulse Resp B/P (MAP) Pulse Ox O2 Delivery O2 Flow Rate FiO2 07/12/24 22:39 137/68 07/12/24 22:39 71 07/12/24 22:00 26 97 T-piece 6 07/12/24 16:00 98.8 98.8 Total Intake and Output 07/11/24 07/11/24 07/12/24 15:00 23:00 07:00 Intake Total 750 ml 641 ml Output Total 620 ml 200 ml Balance 130 ml 441 ml medications Current Medications Medications Dose Ordered Sig/[place] Route Start Time Stop Time Status Last Admin Dose Admin Enoxaparin Sodium 40 mg DAILY SC 06/10/24 10:00 UNV Enoxaparin Sodium 40 mg DAILY SC 06/17/24 10:00 UNV Epoetin Calin-epbx 10,000 unit TUTHSA SC 06/17/24 12:00 Hold 06/28/24 08:25 10,000 UNIT Sodium Chloride 10 ml QSHIFT@, IV 06/17/24 22:00 07/12/24 21:39 10 ML Acetaminophen 650 mg Q6HP PRN GT 06/20/24 11:30 06/28/24 17:05 650 MG Hydralazine HCl 10 mg Q4HP PRN IV 06/24/24 16:45 07/12/24 19:47 10 MG Omeprazole 20 mg DAILY GT 06/26/24 10:00 07/12/24 07:49 20 MG Albuterol 2.5 mg Q6HPRN PRN NEB 06/28/24 11:30 07/08/24 06:58 2.5 MG Lactulose 30 ml [id number] PRN PEG 07/01/24 10:15 Metoprolol Tartrate 50 mg BID PO 07/01/24 22:00 07/12/24 21:39 50 MG Enteral Nutritional Formula 1,000 ml 60ML/HR GT 07/02/24 11:00 07/12/24 20:03 1,000 ML Clonidine HCl 0.2 mg BID PO 07/03/24 22:00 07/12/24 21:39 0.2 MG Enoxaparin Sodium 30 mg DAILY SC 07/08/24 10:00 07/12/24 07:50 30 MG Hydralazine HCl 100 mg Q8HR PO 07/07/24 22:00 07/12/24 21:38 100 MG Heparin Sodium (Porcine) 4,000 units JACKY PRN XX 07/09/24 11:00 Amlodipine Besylate 10 mg DAILY PO 07/11/24 10:00 07/12/24 07:50 10 MG Fentanyl 25 mcg Q72H TD 07/12/24 13:00 07/12/24 17:11 25 MCG PHYSICAL EXAM: - GENERAL: Alert and oriented x 3. No acute distress. Well-nourished. - EYES: EOMI. Anicteric. - HENT: Moist mucous membranes. No scleral icterus. No cervical lymphadenopathy. - LUNGS: Clear to auscultation bilaterally. No accessory muscle use. - CARDIOVASCULAR: Regular rate and rhythm. No murmur. No JVD. - ABDOMEN: Soft, non-tender and non-distended. No palpable masses. - EXTREMITIES: No edema. Non-tender.?SKIN: No rashes or lesions. Warm. - NEUROLOGIC: No focal neurological deficits. CN II-XII grossly intact, but not individually tested - PSYCHIATRIC: Cooperative. Appropriate mood and affect. - laboratory and microbiology Laboratory Tests 07/12/24 04:47 Test 07/12/24 04:47 Range/Units Serum Glucose 107 H 74-106 mg/dL Problem List/Assessment/Plan Problem List/Assessment/Plan ASSESSMENT AND PLAN: ID Problem List: - Altered mental status - MDR Acinetobacter and Pseudomonas respiratory infections - MRSA colonization - Fevers (resolving) - Right above-knee amputation - Partial left foot amputation - Congestive heart failure - Chronic obstructive pulmonary disease - Dyslipidemia - Hypertension - Cerebrovascular accident - Liver disease - Myocardial infarction Assessment This is a 69 y.o. male with a past medical history of right above-knee amputation, partial left foot amputation, CHF, COPD, dyslipidemia, hypertension, CVA, liver disease, and [place], who presents with altered mental status. Patient was noted by family to have progressive confusion over the last three days, culminating in unresponsiveness. On arrival to the ED, the patient was unresponsive and was emergently intubated for airway protection. He was unable to provide history due to altered mental status and was admitted to the ICU for prolonged therapy. He underwent tracheostomy and PEG placement on June 13. Microbiology: - On May 28, sputum culture grew MRSA. - On May 30, bronchial culture grew MRSA. - On June 10, tracheal/bronchial washing grew MDR Acinetobacter and Pseudomonas. - Blood cultures grew Staphylococcus capitis and Staphylococcus auricularis on June 02. - Blood cultures grew Staphylococcus epidermidis and Staphylococcus hominis on June 09. - Blood cultures on June 24 showed no growth. - Catheter tip cultures grew MRSA, MDR Acinetobacter, and Enterococcus. Antibiotic history: - Vancomycin from May 28 to June 14. - Piperacillin-tazobactam (Zosyn) from May 28 to May 29. - Ampicillin from May 29 to . - Ceftriaxone from May 29 to . - Linezolid from May 31 to . - Meropenem from May 31 to . Currently, the patient is on linezolid and meropenem. Fevers have resolved since June 27, and recent cultures remain negative. 07/03: Patient has completed 7 days therapy of meropenum and lizasoild empirically for coverage of all possible bacteremia in the setting of catheter site colonization 07/05: Chest xray shows pulmonary vascular congestion 07/09: presumable positive bronch washings, likely colonization Plan: - follow up on operative cultures - patient to be trasfered to a LTAc , no signs of ongoing sepsis - Monitor off all antibiotics - Monitor for signs of infection. - Continue supportive care. - Isolation Precautions: Standard. Assessment and plan were discussed with the patient as written above. Plan is subject to change pending incorporation of new incoming information/diagnostics. Updates may be added as addendum at the bottom (OR TOP) of this note. Thank you for interesting consult. ID will continue to follow. Please contact Infectious Disease for any questions or concerns. Plan discussed with: Patient Dietary Evaluation Review Comments: 1) If GI is assessible consider Jevity 1.2 @ 60 ml/hr x24 hrs goal rate as tolerated 2) If pt remains NPO >7 days consider TPN to meet at least 75% of estimated needs 3) Advance pt diet when medically feasible to a Cardiac/Renal Specific K2,2gmNA,low phos,60g Pro diet modified per [employer]ER [employer]ELOPMENT recommendations 4) Continue current plan of care Expected Outcomes/Goals: 1) Pt to receive adequate nutrition support 2) Pt diet to advance CC Plasma Assessment Blood Product Administration S: [id number] SURINDER CHOWDHURY MD Jul 12, 2024 23:21
--- NOTE | 2024-07-12 23:27 | DVHPN2 ---
Consult Progress Note Date Seen: Jul 11, 2024 Subjective Patient reports: Feels better (no cough on 6L trach colar) Objective vital signs Vital Sign Date Time Temp Pulse Resp B/P (MAP) Pulse Ox O2 Delivery O2 Flow Rate FiO2 07/12/24 22:39 137/68 07/12/24 22:39 71 07/12/24 22:00 26 97 T-piece 6 28 07/12/24 16:00 98.8 98.8 Total Intake and Output 07/11/24 07/11/24 07/12/24 15:00 23:00 07:00 Intake Total 750 ml 641 ml Output Total 620 ml 200 ml Balance 130 ml 441 ml medications Current Medications Medications Dose Ordered Sig/[place] Route Start Time Stop Time Status Last Admin Dose Admin Enoxaparin Sodium 40 mg DAILY SC 06/10/24 10:00 UNV Enoxaparin Sodium 40 mg DAILY SC 06/17/24 10:00 UNV Epoetin Calin-epbx 10,000 unit TUTHSA SC 06/17/24 12:00 Hold 06/28/24 08:25 10,000 UNIT Sodium Chloride 10 ml QSHIFT@,22 IV 06/17/24 22:00 07/12/24 21:39 10 ML Acetaminophen 650 mg Q6HP PRN GT 06/20/24 11:30 06/28/24 17:05 650 MG Hydralazine HCl 10 mg Q4HP PRN IV 06/24/24 16:45 07/12/24 19:47 10 MG Omeprazole 20 mg DAILY GT 06/26/24 10:00 07/12/24 07:49 20 MG Albuterol 2.5 mg Q6HPRN PRN NEB 06/28/24 11:30 07/08/24 06:58 2.5 MG Lactulose 30 ml [id number] PRN PEG 07/01/24 10:15 Metoprolol Tartrate 50 mg BID PO 07/01/24 22:00 07/12/24 21:39 50 MG Enteral Nutritional Formula 1,000 ml 60ML/HR GT 07/02/24 11:00 07/12/24 20:03 1,000 ML Clonidine HCl 0.2 mg BID PO 07/03/24 22:00 07/12/24 21:39 0.2 MG Enoxaparin Sodium 30 mg DAILY SC 07/08/24 10:00 07/12/24 07:50 30 MG Hydralazine HCl 100 mg Q8HR PO 07/07/24 22:00 07/12/24 21:38 100 MG Heparin Sodium (Porcine) 4,000 units JACKY PRN XX 07/09/24 11:00 Amlodipine Besylate 10 mg DAILY PO 07/11/24 10:00 07/12/24 07:50 10 MG Fentanyl 25 mcg Q72H TD 07/12/24 13:00 07/12/24 17:11 25 MCG PHYSICAL EXAM: - GENERAL: Alert and oriented x 3. No acute distress. Well-nourished. - EYES: EOMI. Anicteric. - HENT: Moist mucous membranes. No scleral icterus. No cervical lymphadenopathy. - LUNGS: Clear to auscultation bilaterally. No accessory muscle use. - CARDIOVASCULAR: Regular rate and rhythm. No murmur. No JVD. - ABDOMEN: Soft, non-tender and non-distended. No palpable masses. - EXTREMITIES: No edema. Non-tender.?SKIN: No rashes or lesions. Warm. - NEUROLOGIC: No focal neurological deficits. CN II-XII grossly intact, but not individually tested - PSYCHIATRIC: Cooperative. Appropriate mood and affect. - laboratory and microbiology Laboratory Tests 07/12/24 04:47 Test 07/12/24 04:47 Range/Units Serum Glucose 107 H 74-106 mg/dL Problem List/Assessment/Plan Problem List/Assessment/Plan ASSESSMENT AND PLAN: ID Problem List: - Altered mental status - MDR Acinetobacter and Pseudomonas respiratory infections - MRSA colonization - Fevers (resolving) - Right above-knee amputation - Partial left foot amputation - Congestive heart failure - Chronic obstructive pulmonary disease - Dyslipidemia - Hypertension - Cerebrovascular accident - Liver disease - Myocardial infarction Assessment This is a 69 y.o. male with a past medical history of right above-knee amputation, partial left foot amputation, CHF, COPD, dyslipidemia, hypertension, CVA, liver disease, and [place], who presents with altered mental status. Patient was noted by family to have progressive confusion over the last three days, culminating in unresponsiveness. On arrival to the ED, the patient was unresponsive and was emergently intubated for airway protection. He was unable to provide history due to altered mental status and was admitted to the ICU for prolonged therapy. He underwent tracheostomy and PEG placement on June 13. Microbiology: - On May 28, sputum culture grew MRSA. - On May 30, bronchial culture grew MRSA. - On June 10, tracheal/bronchial washing grew MDR Acinetobacter and Pseudomonas. - Blood cultures grew Staphylococcus capitis and Staphylococcus auricularis on June 02. - Blood cultures grew Staphylococcus epidermidis and Staphylococcus hominis on June 09. - Blood cultures on June 24 showed no growth. - Catheter tip cultures grew MRSA, MDR Acinetobacter, and Enterococcus. Antibiotic history: - Vancomycin from May 28 to June 14. - Piperacillin-tazobactam (Zosyn) from May 28 to May 29. - Ampicillin from May 29 to . - Ceftriaxone from May 29 to . - Linezolid from May 31 to . - Meropenem from May 31 to . Currently, the patient is on linezolid and meropenem. Fevers have resolved since June 27, and recent cultures remain negative. 07/03: Patient has completed 7 days therapy of meropenum and lizasoild empirically for coverage of all possible bacteremia in the setting of catheter site colonization 07/05: Chest xray shows pulmonary vascular congestion 07/09: presumable positive bronch washings, likely colonization Plan: - follow up on operative cultures - patient to be trasfered to a LTAc , no signs of ongoing sepsis - Monitor off all antibiotics - Monitor for signs of infection. - Continue supportive care. - Isolation Precautions: Standard. Assessment and plan were discussed with the patient as written above. Plan is subject to change pending incorporation of new incoming information/diagnostics. Updates may be added as addendum at the bottom (OR TOP) of this note. Thank you for interesting consult. ID will continue to follow. Please contact Infectious Disease for any questions or concerns. Plan discussed with: Patient Dietary Evaluation Review Comments: 1) If GI is assessible consider Jevity 1.2 @ 60 ml/hr x24 hrs goal rate as tolerated 2) If pt remains NPO >7 days consider TPN to meet at least 75% of estimated needs 3) Advance pt diet when medically feasible to a Cardiac/Renal Specific K2,2gmNA,low phos,60g Pro diet modified per CLOTHING PATTERNMAKER recommendations 4) Continue current plan of care Expected Outcomes/Goals: 1) Pt to receive adequate nutrition support 2) Pt diet to advance CC Plasma Assessment Blood Product Administration S: [id number] SURINDER CHOWDHURY MD Jul 12, 2024 23:27
[2024-07-13] VITALS (58 sets, daily range): BP systolic 135–182; BP diastolic 63–98; PULSE 64–86; RESP 12–28; TEMP 98.1–99.4; O2SAT 92–100
[2024-07-13 05:26] LABS: Basophils # (auto) 0 10 ^3/uL (0-0.2); Basophils % (auto) 0.7 % (0.0-2.0); Eosinophils # (auto) 0.3 10 ^3/uL (0-0.8); Eosinophils % (auto) 5.2 % (0.0-7.0); Hematocrit 26.6 % (41.0-53.0); Hemoglobin 8.7 g/dL (13.5-17.5); Lymphocytes % (auto) 16.9 % (10.0-50.0); Mean Corpuscular Hemoglobin 32.8 pg (28.0-32.0); Mean Corpuscular Hgb Conc. 32.9 g/dL (32.0-36.0); Mean Corpuscular Volume 99.8 fL (80.0-100.0); Monocytes # (auto) 0.6 10 ^3/uL (0-1.3); Monocytes % (auto) 10.7 % (0.0-12.0); Neutrophils # (auto) 3.8 10 ^3/uL (1.6-8.6); Neutrophils % (auto) 66.5 % (37.0-80.0); Nucleated Red Blood Cells % 0.2 %; Platelet Count (auto) 146 10^3/uL (140-450); Red Blood Cells 2.66 10^6/uL (4.5-5.90); White Blood Cell 5.7 10^3/uL (4.4-10.8)
[2024-07-13 05:32] LABS: Red Cell Distribution Width 21.7 % (11.8-14.3)
[2024-07-13 05:50] LABS: Alanine Aminotransferase 16 U/L (7-40); Anion Gap 6 (5-15); BUN/Creatinine Ratio 11.4 (10.0-20.0); Calcium 9.2 mg/dL (8.7-10.4); Chloride 104 mmol/L (98-107); Potassium 4.7 mmol/L (3.5-5.1); Sodium 141 mmol/L (136-145)
[2024-07-13 05:51] LABS: Total Protein 6.3 g/dL (5.7-8.2)
[2024-07-13 06:17] LABS: Albumin 2.6 g/dL (3.2-4.8); Alkaline Phosphatase 132 U/L (46-116); Aspartate Aminotransferase 53 U/L (13-40); Bilirubin, Total 0.2 mg/dL (0.2-1.0); Blood Urea Nitrogen 34 mg/dL (9-23); Carbon Dioxide 31 mmol/L (20-31); Glucose 107 mg/dL (74-106)
--- NOTE | 2024-07-13 11:58 | DVHPN2 ---
Subjective Seen and examined at bedside. on 6L 28%. No change. Reviewed: Care Plan, H&P, Labs, Medications, Previous Orders, Radiology, Other Changes from previous H/P or p: No Changes General: Per HPI Objective Vitals Vital Signs Date Time Temp Pulse Resp B/P (MAP) Pulse Ox O2 Delivery O2 Flow Rate FiO2 07/13/24 10:30 72 26 158/77 (104) 95 07/13/24 10:09 Trach Collar 6 28 Cool Aerosol 28 07/13/24 08:00 98.9 98.9 Intake/Output Intake and Output 07/13/24 07:00 Intake Total 1509 ml Output Total 145 ml Balance 1364 ml Intake Oral 400 ml Tube Feeding 1109 ml Output Urine Total 125 ml Stool Total 20 ml Exam Patient lying in bed, in no acute distress. Patient is alert and following commands General: afebrile, palor, mucosae are moist. Resolving facial swelling. Cardiovascular: Regular S1 and S2. No murmurs, gallops or rubs. No JVD elevation. Resolving Bilateral pitting edema. Respiratory: Decreased but equal Bilateral air entry. Saturating 98% with 6 L supplementation via tracheostomy. Abdomen: Soft, nontender, nondistended, normoactive bowel sounds, no rebound tenderness, no organomegaly, no masses. Suprapubic catheter seen draining urine and colostomy bag seen draining 10 mL of dark yellow which is liquid in consistency. Peg tube in place. Genitourinary: Stage III sacral ulcer, skin non intact, draining pus and erythema noted. MSK/skin: Patient is moving upper extremities to commands.. Skin is dry and warm Neurological: Pupils are isocoric and reactive. General Appearance: Other (Sedated) Extremities: Other (Some bilateral lower extremity edema) Medications Current Medications Medications Dose Ordered Sig/[place] Route Start Time Stop Time Status Last Admin Dose Admin Enoxaparin Sodium 40 mg DAILY SC 06/10/24 10:00 UNV Enoxaparin Sodium 40 mg DAILY SC 06/17/24 10:00 UNV Epoetin Calin-epbx 10,000 unit TUTHSA SC 06/17/24 12:00 Hold 06/28/24 08:25 10,000 UNIT Sodium Chloride 10 ml QSHIFT@10,22 IV 06/17/24 22:00 07/13/24 09:19 10 ML Acetaminophen 650 mg Q6HP PRN GT 06/20/24 11:30 06/28/24 17:05 650 MG Hydralazine HCl 10 mg Q4HP PRN IV 06/24/24 16:45 07/12/24 19:47 10 MG Omeprazole 20 mg DAILY GT 06/26/24 10:00 07/13/24 09:21 20 MG Albuterol 2.5 mg Q6HPRN PRN NEB 06/28/24 11:30 07/08/24 06:58 2.5 MG Lactulose 30 ml [id number] PRN PEG 07/01/24 10:15 Metoprolol Tartrate 50 mg BID PO 07/01/24 22:00 07/13/24 09:19 50 MG Enteral Nutritional Formula 1,000 ml 60ML/HR GT 07/02/24 11:00 07/12/24 20:03 1,000 ML Clonidine HCl 0.2 mg BID PO 07/03/24 22:00 07/13/24 09:20 0.2 MG Enoxaparin Sodium 30 mg DAILY SC 07/08/24 10:00 07/13/24 09:20 30 MG Hydralazine HCl 100 mg Q8HR PO 07/07/24 22:00 07/13/24 06:03 100 MG Heparin Sodium (Porcine) 4,000 units JACKY PRN XX 07/09/24 11:00 Amlodipine Besylate 10 mg DAILY PO 07/11/24 10:00 07/13/24 09:20 10 MG Fentanyl 25 mcg Q72H TD 07/12/24 13:00 07/12/24 17:11 25 MCG Laboratory Results Laboratory Tests 07/13/24 04:50 Chemistry Test 07/13/24 04:50 Albumin 2.6 g/dL (3.2-4.8) L Calcium Level 9.2 mg/dL (8.7-10.4) Magnesium Level 2.0 mg/dL (1.6-2.6) Total Protein 6.3 g/dL (5.7-8.2) LFT Test 07/13/24 04:50 Alanine Aminotransferase (ALT) 16 U/L (7-40) Alkaline Phosphatase 132 U/L (46-116) H Aspartate Amino Transferase (AST) 53 U/L (13-40) H Total Bilirubin 0.2 mg/dL (0.2-1.0) Urinalysis Test 05/28/24 22:36 05/30/24 04:30 Urine Color Dark-brown (Yellow) Urine Clarity Ex.turbid (Clear) Urine pH 6.0 (5.0-9.0) Urine Specific [place] 1.017 (1.001-1.035) Urine Protein 2+ (Negative) H Urine Ketones Trace (Negative) Urine Blood 1+ /uL (Negative) H Urine Nitrite Negative (Negative) Urine Bilirubin Negative (Negative) Urine Urobilinogen Normal mg/dL (Negative) Urine Leukocyte Esterase 3+ /uL (Negative) Urine RBC 56 /hpf (0 - 3) Urine WBC 3664 /hpf (0 - 3) Urine WBC Clumps Present /hpf (None Seen) Urine Squamous Epithelial Cells Many /hpf (<5) Urine Bacteria Mod /hpf (None Seen) H Urine Glucose Normal mg/dL (Normal) Urine Creatinine 33.57 mg/dL (30.0-125.0) Urine Sodium 85 mmol/L (40-220) Microbiology Microbiology Date/Time Source Procedure Growth Status 06/28/24 15:27 Blood Blood Culture - Final NO GROWTH AFTER 5 DAYS OF INCUBATION. Complete 06/25/24 08:20 Catheter Site Aerobic Culture - Final Methicillin Resistant S.aureus Acinetobacter baumannii MDRO Enterococcus faecalis Complete 06/11/24 16:06 Bronchial Washings Gram Stain - Final Complete 06/11/24 16:06 Respiratory Culture - Final Acinetobacter baumannii Pseudomonas aeruginosa Complete 05/30/24 11:45 Pleural Fluid Gram Stain - Final Complete 05/30/24 11:45 Pleural Fluid Body Fluid Culture - Final Complete 05/28/24 22:36 Urine - Catheterized Urine Culture - Final Enterobacter cloacae Escherichia coli Enterococcus faecalis - VRE Complete Assessment/Plan Assessment/Plan Acute metabolic encephalopathy likely due to sepsis- Completed Abx History of seizure History of stroke - Old infarct in the right frontal lobe and right parietal occipital lobe Acute Hypoxic Respiratory Failure likely due to pneumonia- Trached+ Septic shock likely due to pneumonia, improved- Cont Abx Pneumonia likely due to MRSA and Enterobacter cloacae Pneumomediastinum and pneumopericardium FROYLAN, possible VMN on ESRD requiring hemodialysis Plan: Cont Dialysis. Pending placement Plan discussed with: Patient My Orders Orders - SHARLA ALLEN MD Procedure Category Date Status Time * Electronic Assembler CONS 07/12/24 Transmitted Consult Date of Service: Jul 13, 2024 Billing Provider: SHARLA ALLEN MD Common Visit Codes: [id number] INP/OBS CARE(HIGH) SHARLA ALLEN MD Jul 13, 2024 11:58
--- NOTE | 2024-07-13 15:51 | DVHPN2 ---
Progress Note - Dictate Date Seen: Jul 13, 2024 Has the PT tested + for MRSA If YES, has PT been informed?: Yes Medical Necessity Reason Pt with a Central, PICC or Fol: Yes The following are medically ne: Rubio Catheter Reason for rubio catheter: Strict I&O Subjective clinically unchanged vital signs Vital Sign Date Time Temp Pulse Resp B/P (MAP) Pulse Ox O2 Delivery O2 Flow Rate FiO2 07/13/24 15:34 24 94 T-piece 01 11 2807/13/24 14:40 76 07/13/24 14:30 153/66 (95) 07/13/24 12:00 99.3 99.3 Total Intake and Output 07/12/24 07/12/24 07/13/24 15:00 23:00 07:00 Intake Total 750 ml 759 ml Output Total 10 ml 135 ml Balance 740 ml 624 ml medications Current Medications Medications Dose Ordered Sig/[place] Route Start Time Stop Time Status Last Admin Dose Admin Enoxaparin Sodium 40 mg DAILY SC 06/10/24 10:00 UNV Enoxaparin Sodium 40 mg DAILY SC 06/17/24 10:00 UNV Epoetin Calin-epbx 10,000 unit TUTHSA SC 06/17/24 12:00 Hold 06/28/24 08:25 10,000 UNIT Sodium Chloride 10 ml QSHIFT@10,22 IV 06/17/24 22:00 07/13/24 09:19 10 ML Acetaminophen 650 mg Q6HP PRN GT 06/20/24 11:30 06/28/24 17:05 650 MG Hydralazine HCl 10 mg Q4HP PRN IV 06/24/24 16:45 07/12/24 19:47 10 MG Omeprazole 20 mg DAILY GT 06/26/24 10:00 07/13/24 09:21 20 MG Albuterol 2.5 mg Q6HPRN PRN NEB 06/28/24 11:30 07/08/24 06:58 2.5 MG Lactulose 30 ml [id number] PRN PEG 07/01/24 10:15 Metoprolol Tartrate 50 mg BID PO 07/01/24 22:00 07/13/24 09:19 50 MG Enteral Nutritional Formula 1,000 ml 60ML/HR GT 07/02/24 11:00 07/12/24 20:03 1,000 ML Clonidine HCl 0.2 mg BID PO 07/03/24 22:00 07/13/24 09:20 0.2 MG Enoxaparin Sodium 30 mg DAILY SC 07/08/24 10:00 07/13/24 09:20 30 MG Hydralazine HCl 100 mg Q8HR PO 07/07/24 22:00 07/13/24 14:00 100 MG Heparin Sodium (Porcine) 4,000 units JACKY PRN XX 07/09/24 11:00 Amlodipine Besylate 10 mg DAILY PO 07/11/24 10:00 07/13/24 09:20 10 MG Fentanyl 25 mcg Q72H TD 07/12/24 13:00 07/12/24 17:11 25 MCG objective Gen: nad, heent: nc/at, mmm lungs: Occasional coarse breath sounds cvs: no rub ext: no edema laboratory and microbiology Laboratory Tests 07/13/24 04:50 Test 07/13/24 04:50 Range/Units Serum Glucose 107 H 74-106 mg/dL Assessment/Plan Acute kidney injury on chronic kidney disease stage 4 -> likely septic ATN needing HD Acute respiratory failure on vent Anemia suspected due to low blood loss s/p PRBC Hypernatremia Hypokalemia Metabolic acidosis Chronic urinary retention sepsis due to bacteremia recs - we will continue to evaluate daily for KRT needs - Metabolic and volume status acceptable Dietary Evaluation Review Comments: 1) If GI is assessible consider Jevity 1.2 @ 60 ml/hr x24 hrs goal rate as tolerated 2) If pt remains NPO >7 days consider TPN to meet at least 75% of estimated needs 3) Advance pt diet when medically feasible to a Cardiac/Renal Specific K2,2gmNA,low phos,60g Pro diet modified per GUTTER HANGER recommendations 4) Continue current plan of care Expected Outcomes/Goals: 1) Pt to receive adequate nutrition support 2) Pt diet to advance Plan discussed with: Other CC Plasma Assessment Blood Product Administration S: [id number] SHANEL HOOK MD Jul 13, 2024 15:51
--- NOTE | 2024-07-13 20:58 | DVHPN2 ---
Progress Note - Dictate Date Seen: Jul 13, 2024 Has the PT tested + for MRSA If YES, has PT been informed?: Yes Medical Necessity Reason Pt with a Central, PICC or Fol: Yes The following are medically ne: Rubio Catheter Reason for rubio catheter: Strict I&O Subjective Patient seen and examined at bedside. On trach with humidified O2. Overnight events reviewed. vital signs Vital Sign Date Time Temp Pulse Resp B/P (MAP) Pulse Ox O2 Delivery O2 Flow Rate FiO2 07/13/24 19:30 78 16 171/73 (105) 98 07/13/24 17:39 T-piece 01 11 2807/13/24 16:00 99.4 99.4 Total Intake and Output 07/12/24 07/12/24 07/13/24 15:00 23:00 07:00 Intake Total 750 ml 759 ml Output Total 10 ml 135 ml Balance 740 ml 624 ml medications Current Medications Medications Dose Ordered Sig/[place] Route Start Time Stop Time Status Last Admin Dose Admin Enoxaparin Sodium 40 mg DAILY SC 06/10/24 10:00 UNV Enoxaparin Sodium 40 mg DAILY SC 06/17/24 10:00 UNV Epoetin Calin-epbx 10,000 unit TUTHSA SC 06/17/24 12:00 Hold 06/28/24 08:25 10,000 UNIT Sodium Chloride 10 ml QSHIFT@10,22 IV 06/17/24 22:00 07/13/24 09:19 10 ML Acetaminophen 650 mg Q6HP PRN GT 06/20/24 11:30 06/28/24 17:05 650 MG Hydralazine HCl 10 mg Q4HP PRN IV 06/24/24 16:45 07/12/24 19:47 10 MG Omeprazole 20 mg DAILY GT 06/26/24 10:00 07/13/24 09:21 20 MG Albuterol 2.5 mg Q6HPRN PRN NEB 06/28/24 11:30 07/08/24 06:58 2.5 MG Lactulose 30 ml [id number] PRN PEG 07/01/24 10:15 Metoprolol Tartrate 50 mg BID PO 07/01/24 22:00 07/13/24 09:19 50 MG Enteral Nutritional Formula 1,000 ml 60ML/HR GT 07/02/24 11:00 07/12/24 20:03 1,000 ML Clonidine HCl 0.2 mg BID PO 07/03/24 22:00 07/13/24 09:20 0.2 MG Enoxaparin Sodium 30 mg DAILY SC 07/08/24 10:00 07/13/24 09:20 30 MG Hydralazine HCl 100 mg Q8HR PO 07/07/24 22:00 07/13/24 14:00 100 MG Heparin Sodium (Porcine) 4,000 units JACKY PRN XX 07/09/24 11:00 Amlodipine Besylate 10 mg DAILY PO 07/11/24 10:00 07/13/24 09:20 10 MG Fentanyl 25 mcg Q72H TD 07/12/24 13:00 07/12/24 17:11 25 MCG objective Gen.: Patient lying in bed in no apparent distress. On trach with humidified O2. Head: Normocephalic, atraumatic. Eyes: EOMI/PERRLA. Ears: Normal hearing. Normal anatomy. Neck/trachea: Trach in place. Nose: Normal external anatomy. Mouth: Moist mucous membranes. Chest: Decreased air entry bilaterally. No wheezing or rhonchi. Cardiovascular: Positive S1, positive S2. Regular rate and rhythm. Abdomen: Positive bowel sounds in all 4 quadrants. Soft, non-tender, non- distended. : Deferred. Rectal: Deferred. Skin: Warm, dry. Intact. Extremities: 2+ radial pulses bilaterally. No lower extremity edema. Neuro: Awake, alert, oriented x3. No gross motor or sensory deficits. Cranial nerves II through XII intact. Gait not assessed. laboratory and microbiology Laboratory Tests 07/13/24 04:50 Test 07/13/24 04:50 Range/Units Serum Glucose 107 H 74-106 mg/dL Assessment/Plan Impression: Acute hypoxic respiratory failure Multifocal pneumonia Atelectasis Congestive heart failure Tracheostomy Events: S/p hemodialysis yesterday. On 6 LPM via trach. Increased trach secretions. Trach care Pulmonary toileting Placed Shiley 6 XLT on 07/08/24. Humidified O2 via trach Off sedation Patient is awake, alert. Continue bronchodilators Wound care. Tube feeds for nutritional support via PEG. HOB elevation Aspiration precautions. HD per Nephrology. Monitor renal function Monitor electrolytes. Supplement as necessary. Awaiting LTAC placement. S/p bronchoscopy with BAL on 07/08/24. See procedure note for full details. Rest of plan as noted below Plan: S/p trach, trach collar - on 6 L humidified O2 Off sedation Off pressors,hemodynamically stable. Antibiotics - completed Positive hepatitis C. IV fluid hydration Maintain euvolemia Monitor renal function Monitor electrolytes. Supplement as necessary. Monitor ins and outs. Tube feeds for nutritional support. GI prophylaxis. DVT prophylaxis. Prognosis: Poor given patient's multiple co-morbidities. Rest of plan per hospitalist and other consultants. Thank you Anthony Ugalde NP, for allowing me to participate in this patient's care. Further recommendations will depend on the patient's clinical course. Please do not hesitate to contact me if you have any questions or concerns. This medical document was created using an electronic medical record system with [employer] dictation system. Although these documentations are being carefully reviewed, there may still be some phonetic and typographical changes. The errors are purely typographical, due to imperfection on the software program, and do not reflect any compromise in the patient's medical care. Dietary Evaluation Review Comments: 1) If GI is assessible consider Jevity 1.2 @ 60 ml/hr x24 hrs goal rate as tolerated 2) If pt remains NPO >7 days consider TPN to meet at least 75% of estimated needs 3) Advance pt diet when medically feasible to a Cardiac/Renal Specific K2,2gmNA,low phos,60g Pro diet modified per ENVIRONMENTAL CONSULTANT recommendations 4) Continue current plan of care Expected Outcomes/Goals: 1) Pt to receive adequate nutrition support 2) Pt diet to advance Plan discussed with: Patient, Other (RN) CC Plasma Assessment Blood Product Administration S: [id number] ELIANE ALTAMIRANO MD Jul 13, 2024 20:58
[2024-07-14] VITALS (61 sets, daily range): BP systolic 132–172; BP diastolic 60–86; PULSE 61–85; RESP 13–29; TEMP 97.6–98.9; O2SAT 87–100
[2024-07-14 06:05] LABS: Basophils # (auto) 0 10 ^3/uL (0-0.2); Eosinophils # (auto) 0.5 10 ^3/uL (0-0.8); Eosinophils % (auto) 7.4 % (0.0-7.0); Hemoglobin 8.4 g/dL (13.5-17.5); Lymphocytes # (auto) 1.2 10 ^3/uL (0.4-5.4); Monocytes # (auto) 0.6 10 ^3/uL (0-1.3); Neutrophils # (auto) 4.1 10 ^3/uL (1.6-8.6)
[2024-07-14 06:08] LABS: Basophils % (auto) 0.6 % (0.0-2.0); Hematocrit 25.9 % (41.0-53.0); Lymphocytes % (auto) 18.7 % (10.0-50.0); Mean Corpuscular Hemoglobin 32.8 pg (28.0-32.0); Mean Corpuscular Hgb Conc. 32.4 g/dL (32.0-36.0); Mean Corpuscular Volume 101.2 fL (80.0-100.0); Monocytes % (auto) 9.8 % (0.0-12.0); Neutrophils % (auto) 63.5 % (37.0-80.0); Nucleated Red Blood Cells % 0.2 %; Platelet Count (auto) 158 10^3/uL (140-450); Red Blood Cells 2.55 10^6/uL (4.5-5.90); White Blood Cell 6.5 10^3/uL (4.4-10.8)
[2024-07-14 06:10] LABS: Red Cell Distribution Width 21.6 % (11.8-14.3)
[2024-07-14 06:19] LABS: Alanine Aminotransferase 23 U/L (7-40); Anion Gap 8 (5-15); BUN/Creatinine Ratio 12.5 (10.0-20.0); Calcium 9.2 mg/dL (8.7-10.4); Carbon Dioxide 30 mmol/L (20-31); Chloride 104 mmol/L (98-107); Glucose 85 mg/dL (74-106); Magnesium 2.3 mg/dL (1.6-2.6); Sodium 142 mmol/L (136-145)
[2024-07-14 06:20] LABS: Total Protein 6.3 g/dL (5.7-8.2)
[2024-07-14 06:21] LABS: Potassium 5.3 mmol/L (3.5-5.1)
[2024-07-14 06:22] LABS: Albumin 2.7 g/dL (3.2-4.8); Alkaline Phosphatase 130 U/L (46-116); Aspartate Aminotransferase 59 U/L (13-40); Bilirubin, Total 0.2 mg/dL (0.2-1.0); Blood Urea Nitrogen 42 mg/dL (9-23)
[2024-07-14] MEDS: InsuLIN REG 1unit/0.01ml Soln (100units/ml) IV ONE (10:00)
[2024-07-14] MEDS: DEXTROSE (50%) 50ML SYRG IV ONE (11:00)
--- NOTE | 2024-07-14 11:07 | DVHPN2 ---
Progress Note Date Seen: Jul 14, 2024 Has the PT tested + for MRSA If YES, has PT been informed?: Yes Medical Necessity Reason Pt with a Central, PICC or Fol: Yes The following are medically ne: Rubio Catheter Reason for rubio catheter: Strict I&O Subjective Patient reports: No new complaints Other Systems: Patient seen and examined by myself today in follow-up Patient remained and tracheostomy collar Objective vital signs Vital Sign Date Time Temp Pulse Resp B/P (MAP) Pulse Ox O2 Delivery O2 Flow Rate FiO2 07/14/24 10:59 156/67 07/14/24 10:59 79 07/14/24 09:26 23 92 07/14/24 09:11 T-piece 5.0 07/14/24 09:11 N/A 07/14/24 08:00 97.7 97.7 Total Intake and Output 07/13/24 07/13/24 07/14/24 15:00 23:00 07:00 Intake Total 750 ml 710 ml Output Total 325 ml 150 ml Balance 425 ml 560 ml medications Current Medications Medications Dose Ordered Sig/[place] Route Start Time Stop Time Status Last Admin Dose Admin Enoxaparin Sodium 40 mg DAILY SC 06/10/24 10:00 UNV Enoxaparin Sodium 40 mg DAILY SC 06/17/24 10:00 UNV Epoetin Calin-epbx 10,000 unit TUTHSA SC 06/17/24 12:00 Hold 06/28/24 08:25 10,000 UNIT Sodium Chloride 10 ml QSHIFT@10,22 IV 06/17/24 22:00 07/14/24 11:00 10 ML Acetaminophen 650 mg Q6HP PRN GT 06/20/24 11:30 06/28/24 17:05 650 MG Hydralazine HCl 10 mg Q4HP PRN IV 06/24/24 16:45 07/14/24 03:49 10 MG Omeprazole 20 mg DAILY GT 06/26/24 10:00 07/13/24 09:21 20 MG Albuterol 2.5 mg Q6HPRN PRN NEB 06/28/24 11:30 07/14/24 09:11 2.5 MG Lactulose 30 ml [id number] PRN PEG 07/01/24 10:15 Metoprolol Tartrate 50 mg BID PO 07/01/24 22:00 07/14/24 10:59 50 MG Enteral Nutritional Formula 1,000 ml 60ML/HR GT 07/02/24 11:00 07/12/24 20:03 1,000 ML Clonidine HCl 0.2 mg BID PO 07/03/24 22:00 07/14/24 10:59 0.2 MG Enoxaparin Sodium 30 mg DAILY SC 07/08/24 10:00 07/14/24 10:58 30 MG Hydralazine HCl 100 mg Q8HR PO 07/07/24 22:00 07/14/24 05:54 100 MG Heparin Sodium (Porcine) 4,000 units JACKY PRN XX 07/09/24 11:00 Amlodipine Besylate 10 mg DAILY PO 07/11/24 10:00 07/14/24 10:58 10 MG Fentanyl 25 mcg Q72H TD 07/12/24 13:00 07/12/24 17:11 25 MCG Examination: LUNGS:Normal, CVS:Normal, MSK:Normal laboratory and microbiology Laboratory Tests 07/14/24 04:55 Test 07/14/24 04:55 Range/Units Serum Glucose 85 74-106 mg/dL Microbiology Date/Time Source Procedure Growth Status 06/28/24 15:27 Blood Blood Culture - Final NO GROWTH AFTER 5 DAYS OF INCUBATION. Complete 06/25/24 08:20 Catheter Site Aerobic Culture - Final Methicillin Resistant S.aureus Acinetobacter baumannii MDRO Enterococcus faecalis Complete 06/11/24 16:06 Bronchial Washings Gram Stain - Final Complete 06/11/24 16:06 Respiratory Culture - Final Acinetobacter baumannii Pseudomonas aeruginosa Complete 05/30/24 11:45 Pleural Fluid Gram Stain - Final Complete 05/30/24 11:45 Pleural Fluid Body Fluid Culture - Final Complete 05/28/24 22:36 Urine - Catheterized Urine Culture - Final Enterobacter cloacae Escherichia coli Enterococcus faecalis - VRE Complete Problem List/Assessment/Plan Problem List/Assessment/Plan Acute kidney injury superimposed on chronic kidney disease stage 4, oliguric requiring initiation of hemodialysis D Acute respiratory failure, patient is trached Anemia suspected due to low blood loss s/p PRBC Septic shock Hypernatremia , resolved Hypomagnesemia Peripheral arterial disease Right above knee amputation Metabolic acidosis Chronic urinary retention MRSA bacteremia Recommendations Hemodialysis tomorrow Epogen 01524 IV post hemodialysis Rubio catheter Strict I&Os Renal diet IV antibiotic per ID consult We will continue to follow Plan discussed with: Patient, Other (Nurse) Dietary Evaluation Review Comments: 1) If GI is assessible consider Jevity 1.2 @ 60 ml/hr x24 hrs goal rate as tolerated 2) If pt remains NPO >7 days consider TPN to meet at least 75% of estimated needs 3) Advance pt diet when medically feasible to a Cardiac/Renal Specific K2,2gmNA,low phos,60g Pro diet modified per KEYBOARDING TEACHER recommendations 4) Continue current plan of care Expected Outcomes/Goals: 1) Pt to receive adequate nutrition support 2) Pt diet to advance CC Plasma Assessment Blood Product Administration S: [id number] DAVID TORRES MD Jul 14, 2024 11:07
[2024-07-14] MEDS: ALBUTEROL SULF 2.5 MG/0.5ML(0.5%) NEB SOLN NEB ONE (11:17)
[2024-07-14] MEDS: ALBUTEROL SULF 2.5 MG/0.5ML(0.5%) NEB SOLN NEB SCH (12:44)
[2024-07-14] MEDS: IPRATROPIUM BROM 0.5 MG/2.5ML INH SOL NEB SCH (12:44)
[2024-07-14] MEDS: ACETYLCYSTEINE 20%(200MG/ML) SOL 4ML NEB SCH (12:44)
--- NOTE | 2024-07-14 15:43 | DVHPNRES ---
Progress Note Date Seen: Jul 14, 2024 Resident Creating Document: THA CRISOSTOMO RESIDENT Has the PT tested + for MRSA If YES, has PT been informed?: Yes Medical Necessity Reason Pt with a Central, PICC or Fol: Yes The following are medically ne: Rubio Catheter Reason for rubio catheter: Strict I&O Subjective Review of Systems This is a 65-year-old male with past medical history of CHF, CKD, COPD, dyslipidemia, hypertension, CVA brought to the hospital with shortness of breaths and at the level of consciousness. Admitted and intubated on 05/28, extubated on 06/09 but reintubated on 06/10. Epigastric performed on 06/13, PEG tube placed on 06/15. 07/01 - Patient seen and examined at bedside. Overnight no events, patient made 150 cc of urine in the morning and 125 cc in the night. Multiple bowel movements 500 cc on 06/30, 250 cc on the night of 07/01 and 200 on the morning of 07/01. Lactulose changed to p.r.n.. Patient is intubated and mechanically ventilated. Patient is satting 97% on trach collar via 6 L oxygen supplementation for the past 24 hours. He is not on pressor support. On fentanyl 20 mcg. Increase metoprolol to 50 mg b.i.d. and started clonidine 0.1 mg b.i.d.. Started fentanyl patch 25 mcg. IV fentanyl will be discontinued after overlapping her 4-5 hours with fentanyl patch. 07/02 - overnight patient made 100 mL of urine. 50 mL of output was drain from colostomy bag. Otherwise no events. Patient seen and examined at bedside. He underwent dialysis this morning and 2.5 L were drained. Chest x-ray reviewed shows worsening left-sided infiltrate. Patient is satting 98% on 3 color with 6 L oxygen supplementation. 07/03 - overnight colostomy bag was leaking so it was changed. Patient had 50 mL urine output in the foil operator, 115 mL during the of the of 07/02. Colostomy bag was drained with 50 mL of contents. Patient is still hypotensive systolic ranging in 150s to 160s therefore clonidine increased to 0.2 mg b.i.d.. Creatinine trending down to 3.2. Tunnel catheter consent obtained. IR consulted. NPO starting morning. Final blood culture 06/28 shows no growth. IV antibiotics discontinued. 07/04 - overnight patient had 200 mL of colostomy output. Urine output 125 in the day of 07/03 and 150 in the foil operator. Tunneled catheter placed to the right upper chest. DC left IJ catheter once dialysis session completed. Undergoing dialysis session today. 07/07 - patient seen and examined in the bedside. Underwent dialysis today. Over the weekend bronchoscopy completed 07/05 showed left lower lobe atelectasis due to mucus plugging and right lower lobe mucous plugging. 07/08 - pt desatted to 70s in the morning. CXR shows air in the subcutaneous tiisues. CT chest w/o ordered, showed Pneumomediastinum and pneumopericardium. Bilateral pleural effusions, left slightly greater than right. Bilateral lower lobe opacities compatible with compressive atelectasis. o2 supp increased to 10L from 6, and fio2 increased to 100%. Pt underwent bronch,showed Left lower lobe atelectasis due to mucous plugging. Mucous plugging from L6-L10. Pt switched to ventilator and IV fent started. Facial swelling resolving. 07/09 - overnight, pt desatted which improved with suctioning. HD today, lsix 40mg IV once. 07/10 - patient seen and examined at the bedside. No overnight events. Patient is more responsive, moving upper extremities to command . 07/11 - overnight no acute events. Saturating 97 on 6 L oxygen supplementation 07/14 - overnight patient drops his saturation to 80s, improves after suctioning back to 90s. Patient has creamy white secretions. Hemodialysis tomorrow. Potassium 5.3, albuterol, dextrose and insulin given. Started acetylcysteine 200 mg nebulized q.6 hour. Changed suprapubic catheter. Objective vital signs Vital Sign Date Time Temp Pulse Resp B/P (MAP) Pulse Ox O2 Delivery O2 Flow Rate FiO2 07/14/24 14:04 126/85 07/14/24 12:54 65 16 98 07/14/24 12:44 T-piece 6 28 28 07/14/24 08:00 97.7 97.7 Total Intake and Output 07/13/24 07/13/24 07/14/24 15:00 23:00 07:00 Intake Total 750 ml 710 ml Output Total 325 ml 150 ml Balance 425 ml 560 ml medications Current Medications Medications Dose Ordered Sig/[place] Route Start Time Stop Time Status Last Admin Dose Admin Enoxaparin Sodium 40 mg DAILY SC 06/10/24 10:00 UNV Enoxaparin Sodium 40 mg DAILY SC 06/17/24 10:00 UNV Epoetin [place]-epbx 10,000 unit TUTHSA SC 06/17/24 12:00 Hold 06/28/24 08:25 10,000 UNIT Sodium Chloride 10 ml QSHIFT@10,22 IV 06/17/24 22:00 07/14/24 11:00 10 ML Acetaminophen 650 mg Q6HP PRN GT 06/20/24 11:30 06/28/24 17:05 650 MG Hydralazine HCl 10 mg Q4HP PRN IV 06/24/24 16:45 07/14/24 03:49 10 MG Omeprazole 20 mg DAILY GT 06/26/24 10:00 07/14/24 13:54 20 MG Albuterol 2.5 mg Q6HPRN PRN NEB 06/28/24 11:30 07/14/24 09:11 2.5 MG Lactulose 30 ml [id number] PRN PEG 07/01/24 10:15 Metoprolol Tartrate 50 mg BID PO 07/01/24 22:00 07/14/24 10:59 50 MG Enteral Nutritional Formula 1,000 ml 60ML/HR GT 07/02/24 11:00 07/12/24 20:03 1,000 ML Clonidine HCl 0.2 mg BID PO 07/03/24 22:00 07/14/24 10:59 0.2 MG Enoxaparin Sodium 30 mg DAILY SC 07/08/24 10:00 07/14/24 10:58 30 MG Hydralazine HCl 100 mg Q8HR PO 07/07/24 22:00 07/14/24 14:04 100 MG Heparin Sodium (Porcine) 4,000 units JACKY PRN XX 07/09/24 11:00 Amlodipine Besylate 10 mg DAILY PO 07/11/24 10:00 07/14/24 10:58 10 MG Fentanyl 25 mcg Q72H TD 07/12/24 13:00 07/12/24 17:11 25 MCG Acetylcysteine 200 mg Q6HR NEB 07/14/24 12:00 07/14/24 12:44 200 MG Albuterol 2.5 mg Q6HR NEB 07/14/24 12:00 07/14/24 12:44 2.5 MG Ipratropium [place] 0.5 mg Q6HR NEB 07/14/24 12:00 07/14/24 12:44 0.5 MG Examination Patient lying in bed, in no acute distress. Patient is alert and following commands General: afebrile, palor, mucosae are moist. Resolving facial swelling. Cardiovascular: Regular S1 and S2. No murmurs, gallops or rubs. No JVD elevation. Resolving Bilateral pitting edema. Respiratory: Decreased but equal Bilateral air entry. Saturating 94% with 6 L supplementation via tracheostomy. Abdomen: Soft, nontender, nondistended, normoactive bowel sounds, no rebound tenderness, no organomegaly, no masses. Suprapubic catheter seen draining urine and colostomy bag seen draining 10 mL of orange mustard stool which is liquid in consistency. Peg tube in place. Genitourinary: Stage III sacral ulcer, skin non intact, draining pus and erythema noted. MSK/skin: Patient is moving upper extremities to commands.. Skin is dry and warm Neurological: Pupils are isocoric and reactive. laboratory and microbiology Laboratory Tests 07/14/24 04:55 Test 07/14/24 04:55 Range/Units Serum Glucose 85 74-106 mg/dL Microbiology Date/Time Source Procedure Growth Status 06/28/24 15:27 Blood Blood Culture - Final NO GROWTH AFTER 5 DAYS OF INCUBATION. Complete 06/25/24 08:20 Catheter Site Aerobic Culture - Final Methicillin Resistant S.aureus Acinetobacter baumannii MDRO Enterococcus faecalis Complete 06/11/24 16:06 Bronchial Washings Gram Stain - Final Complete 06/11/24 16:06 Respiratory Culture - Final Acinetobacter baumannii Pseudomonas aeruginosa Complete 05/30/24 11:45 Pleural Fluid Gram Stain - Final Complete 05/30/24 11:45 Pleural Fluid Body Fluid Culture - Final Complete 05/28/24 22:36 Urine - Catheterized Urine Culture - Final Enterobacter cloacae Escherichia coli Enterococcus faecalis - VRE Complete Labs and/or images reviewed: Labs reviewed by me, Image(s) reviewed by me Problem List/Assessment/Plan Problem List/Assessment/Plan NEURO: Acute metabolic encephalopathy likely due to sepsis History of seizure History of stroke - Old infarct in the right frontal lobe and right parietal occipital lobe Patient is sedated and on mechanical ventilation, RASS scores -2 History of seizure during last admission(1 month back) used Keppra for 1 week Discontinued Keppra, on 06/16 EEG shows abnormal EEG recording consistent with the presence of a diffuse nonspecific encephalopathic state CARDIOVASCULAR: Hypertension Continue injection hydralazine 10 mg q.6 hours as needed Increase metoprolol to 50 mg b.i.d., Continue amlodipine 10 mg, hydralazine 100 mg t.i.d. Started clonidine 0.1 mg twice daily 07/01. Clonidine increased to 0.2 mg b.i.d. 07/03 Final blood culture 06/28 shows no growth PULMONARY: Acute Hypoxic Respiratory Failure likely due to pneumonia Septic shock likely due to pneumonia, improved Pneumonia likely due to MRSA and Enterobacter cloacae Pneumomediastinum and pneumopericardium - Patient is sedated and mechanically ventilated with PEEP of 30% - CT scan shows [id number] left pleural effusion - MRSA nares screening, COVID-19 and flu are negative - Bronchoscopy performed on 06/11, there was some thin mucus secretion on bilateral side, bronchial lavage of right lower lobe and left lower lobe was performed, and the culture results shows Pseudomonas aeruginosa and Enterobacter baumanni, MDR; ID has been consulted - Sputum culture from bronchoalveolar lavage from 05/24/24 shows MRSA, Enterobacter cloacae - Blood culture from the 06/02/24 shows Staphylococcus epidermidis , Staph hominis - Repeat culture from 06/09/2024 shows no growth - Stopped IV linezolid, given for 11 days, discontinued meropenem, started on 06/08 and given for 12 days - started acetylcysteine nebulized 07/14 - Breathing treatment q.6 hours p.r.n. -started fentanyl patch 25 mcg 07/01 - bronchoscopy completed 07/05 showed left lower lobe atelectasis due to mucus plugging and right lower lobe mucous plugging. - 07/08 - pt desatted to 70s in the morning. CXR shows air in the subcutaneous tissues. CT chest w/o ordered, showed Pneumomediastinum and pneumopericardium. Bilateral pleural effusions, left slightly greater than right. Bilateral lower lobe opacities compatible with compressive atelectasis. o2 supp increased to 10L from 6, and fio2 increased to 100%. Pt underwent bronch,showed Left lower lobe atelectasis due to mucous plugging. Mucous plugging from L6-L10. GI - GI ppx: omeprazole 20mg daily via OG tube - Hepatitis-C virus antibody positive - Repeat stool occult blood test is negative - CT abdominopelvic without contrast shows no evidence of intra-abdominal hemorrhage - Tracheostomy is performed on 06/13 - PEG tube is placed on 06/15 - Bowel regimen: Lactulose 30 mL b.i.d. change to p.r.n. 07/01 : FROYLAN, possible VMN on ESRD requiring hemodialysis - Nephrology consulted, epoetin morena 61509 units SC post dialysis. Radiology for tunneled hemodialysis catheter when the blood culture negative for 72 hours - Stopped Bumix 1mg BID - creatinine increased to 3.91 from 3.64 - Homer catheter placed on left internal jugular, on 06/26, removed on 07/04 - tunneled catheter placed to the right upper chest 07/04 - hemodialysis completed 07/02 and 07/04 and 07/07, 07/09, 07/12 UTI, urinalysis shows UTI picture - Urine culture from 05/28/2024 shows Enterobacter, E coli, Enterococcus faecalis Status post right lower limb, AKA likely due to PAD Decubitus ulcer - There are multiple stage 3-4 sacral ulcers draining pus - position changing every 2 hours and dressing -started fentanyl patch 25 mcg 07/01 HEME Severe anemia, transfused 4 pack of red blood cells Anemia of chronic disease Thrombocytopenia - current HB is 8.6 - Retacrit T/TH/SAT ID: - Sputum culture from bronchoalveolar lavage from 05/24/24 shows MRSA, Enterobacter cloacae - Blood culture from the 06/02/24 shows Staphylococcus epidermidis , Staph hominis - Repeat culture from 06/09/2024 shows no growth - culture results from BAL from 06/11 shows Pseudomonas aeruginosa and Enterobacter baumanni, MDR - discontinued IV linezolid starting 06/28 and meropenem starting 06/25, discontinued in 07/03 - previously received vancomycin - catheter site culture 06/25 completed shows MRSA, Acinetobacter baumannii MDRO, Enterococcus faecalis. SKIN Possible keloid - There is a growth on the left shoulder, per son, lesion has been present for several years - Follow up on outpatient basis Metabolic: Hypernatremia, improved Hypokalemia, discontinued potassium supplementation given ESRD Hyperkalemia, improved Mild hyponatremia, monitoring Hypoglycemic episodes, improved Hypomagnesemia, supplemented LINES/DRAINS/ACCESS: ETT, intubated on 05/28/2024 and tracheostomy performed on 06/11, PEG tube placed on 06/15 IV access Left internal jugular CVC, placed on 06/26 and removed on 07/04 Right IJ hemodialysis catheter placed 07/04 Suprapubic catheter, changed on 07/14/2024 Dripps: Fentanyl patch 25 mg No pressor DIET: Jevity 1.2 john 60 mL/hour DVT prophylaxis Lovenox 30mg SC daily Disposition: social services counselor consulted for transfer to the [facility]. Will be transfered to [place] in [facility] or [facility]. critical care time including review of charts, discussing case with patient's nurse, and son excluding procedures is 42 mins CODE STATUS: Full code Plan discussed with patient and his son at bedside in which all questions have been answered. Case discussed with Dr. Isabel. Hemodialysis tomorrow Plan discussed with: Patient, Son (At bedside) Dietary Evaluation Review Comments: 1) If GI is assessible consider Jevity 1.2 @ 60 ml/hr x24 hrs goal rate as tolerated 2) If pt remains NPO >7 days consider TPN to meet at least 75% of estimated needs 3) Advance pt diet when medically feasible to a Cardiac/Renal Specific K2,2gmNA,low phos,60g Pro diet modified per DRONE OPERATOR recommendations 4) Continue current plan of care Expected Outcomes/Goals: 1) Pt to receive adequate nutrition support 2) Pt diet to advance CC Plasma Assessment Blood Product Administration S: [id number] Date of Service: Jul 14, 2024 Billing Provider: HOLGER ISABEL MD Common Visit Codes: [id number] CARE 30-74 MIN THA CRISOSTOMO RESIDENT Jul 14, 2024 15:43 HOLGER ISABEL MD Jul 15, 2024 16:07
[2024-07-15] VITALS (83 sets, daily range): BP systolic 114–178; BP diastolic 57–85; PULSE 62–102; RESP 8–32; TEMP 97.8–100.6; O2SAT 92–100
--- NOTE | 2024-07-15 05:09 | DVH ---
CHEST RADIOGRAPH Indication: Follow up Technique: Single frontal view of the chest was obtained COMPARISON: XY CHEST PORTABLE on DOS: 07/12/24, XY CHEST PORTABLE on DOS: 07/11/24, XY CHEST PORTABLE on DOS: 07/10/24, XY CHEST PORTABLE on DOS: 07/09/24, XY CHEST PORTABLE on DOS: 07/08/24, XY CHEST P ORTABLE on DOS: 07/12/24 FINDINGS: Lines and Tubes: Endotracheal tube, left PICC and tunneled right central venous catheter in satisfact ory position. Lungs: Congestion Pleura: No effusion. No pneumothorax. Cardiomediastinal contours: Cardiomegaly Bones: Unremarkable IMPRESSION: Lines and tubes in satisfactory position. No significant interval change.
[2024-07-15 06:42] LABS: Eosinophils # (auto) 0.5 10 ^3/uL (0-0.8); Hemoglobin 8.1 g/dL (13.5-17.5); Mean Corpuscular Volume 100.3 fL (80.0-100.0); Nucleated Red Blood Cells % 0.1 %
[2024-07-15 06:46] LABS: Basophils # (auto) 0 10 ^3/uL (0-0.2); Basophils % (auto) 0.9 % (0.0-2.0); Eosinophils % (auto) 9.9 % (0.0-7.0); Hematocrit 24.9 % (41.0-53.0); Lymphocytes % (auto) 18.9 % (10.0-50.0); Mean Corpuscular Hemoglobin 32.6 pg (28.0-32.0); Mean Corpuscular Hgb Conc. 32.5 g/dL (32.0-36.0); Monocytes # (auto) 0.4 10 ^3/uL (0-1.3); Monocytes % (auto) 6.8 % (0.0-12.0); Neutrophils # (auto) 3.5 10 ^3/uL (1.6-8.6); Neutrophils % (auto) 63.5 % (37.0-80.0); Platelet Count (auto) 161 10^3/uL (140-450); Red Blood Cells 2.48 10^6/uL (4.5-5.90); Red Cell Distribution Width 21.6 % (11.8-14.3); White Blood Cell 5.5 10^3/uL (4.4-10.8)
[2024-07-15 06:55] LABS: Alanine Aminotransferase 33 U/L (7-40); Anion Gap 4 (5-15); Calcium 8.9 mg/dL (8.7-10.4); Chloride 106 mmol/L (98-107); Sodium 142 mmol/L (136-145)
[2024-07-15 06:56] LABS: Total Protein 6.1 g/dL (5.7-8.2)
[2024-07-15] MEDS: SODIUM CHL 0.9% 1000 ML BAG XX ONE (07:00)
[2024-07-15 07:05] LABS: Albumin 2.6 g/dL (3.2-4.8); Alkaline Phosphatase 129 U/L (46-116); Aspartate Aminotransferase 84 U/L (13-40); Bilirubin, Total 0.2 mg/dL (0.2-1.0); Blood Urea Nitrogen 54 mg/dL (9-23); Carbon Dioxide 32 mmol/L (20-31); Glucose 110 mg/dL (74-106); Potassium 5.4 mmol/L (3.5-5.1)
[2024-07-15] MEDS: ALBUTEROL SULF 2.5 MG/0.5ML(0.5%) NEB SOLN NEB ONE (08:22)
--- NOTE | 2024-07-15 10:19 | DVHPN2 ---
Progress Note Date Seen: Jul 15, 2024 Has the PT tested + for MRSA If YES, has PT been informed?: Yes Medical Necessity Reason Pt with a Central, PICC or Fol: Yes The following are medically ne: Rubio Catheter Reason for rubio catheter: Strict I&O Subjective Review of Systems: RESPIRATORY:Abnormal Other Systems: Patient seen and examined by myself today in follow-up, patient trached Objective vital signs Vital Sign Date Time Temp Pulse Resp B/P (MAP) Pulse Ox O2 Delivery O2 Flow Rate FiO2 07/15/24 08:45 77 30 98 07/15/24 08:22 T-piece 6 N/A 07/15/24 08:00 99.1 99.1 Total Intake and Output 07/14/24 07/14/24 07/15/24 15:00 23:00 07:00 Intake Total 580 ml 780 ml Output Total 200 ml 100 ml Balance 380 ml 680 ml medications Current Medications Medications Dose Ordered Sig/[place] Route Start Time Stop Time Status Last Admin Dose Admin Enoxaparin Sodium 40 mg DAILY SC 06/10/24 10:00 UNV Enoxaparin Sodium 40 mg DAILY SC 06/17/24 10:00 UNV Epoetin Calin-epbx 10,000 unit TUTHSA SC 06/17/24 12:00 Hold 06/28/24 08:25 10,000 UNIT Sodium Chloride 10 ml QSHIFT@10,22 IV 06/17/24 22:00 07/14/24 21:12 10 ML Acetaminophen 650 mg Q6HP PRN GT 06/20/24 11:30 06/28/24 17:05 650 MG Hydralazine HCl 10 mg Q4HP PRN IV 06/24/24 16:45 07/14/24 03:49 10 MG Omeprazole 20 mg DAILY GT 06/26/24 10:00 07/14/24 13:54 20 MG Albuterol 2.5 mg Q6HPRN PRN NEB 06/28/24 11:30 07/14/24 09:11 2.5 MG Lactulose 30 ml [id number] PRN PEG 07/01/24 10:15 Metoprolol Tartrate 50 mg BID PO 07/01/24 22:00 07/14/24 21:11 50 MG Enteral Nutritional Formula 1,000 ml 60ML/HR GT 07/02/24 11:00 07/12/24 20:03 1,000 ML Clonidine HCl 0.2 mg BID PO 07/03/24 22:00 07/14/24 21:11 0.2 MG Enoxaparin Sodium 30 mg DAILY SC 07/08/24 10:00 07/14/24 10:58 30 MG Hydralazine HCl 100 mg Q8HR PO 07/07/24 22:00 07/15/24 06:02 100 MG Heparin Sodium (Porcine) 4,000 units JACKY PRN XX 07/09/24 11:00 Amlodipine Besylate 10 mg DAILY PO 07/11/24 10:00 07/14/24 10:58 10 MG Fentanyl 25 mcg Q72H TD 07/12/24 13:00 07/12/24 17:11 25 MCG Acetylcysteine 200 mg Q6HR NEB 07/14/24 12:00 07/15/24 07:17 200 MG Albuterol 2.5 mg Q6HR NEB 07/14/24 12:00 07/15/24 07:17 2.5 MG Ipratropium [place] 0.5 mg Q6HR NEB 07/14/24 12:00 07/15/24 07:17 0.5 MG Examination: LUNGS:Normal, CVS:Normal, MSK:Normal laboratory and microbiology Laboratory Tests 07/15/24 06:00 Test 07/15/24 06:00 Range/Units Serum Glucose 110 H 74-106 mg/dL Microbiology Date/Time Source Procedure Growth Status 06/28/24 15:27 Blood Blood Culture - Final NO GROWTH AFTER 5 DAYS OF INCUBATION. Complete 06/25/24 08:20 Catheter Site Aerobic Culture - Final Methicillin Resistant S.aureus Acinetobacter baumannii MDRO Enterococcus faecalis Complete 06/11/24 16:06 Bronchial Washings Gram Stain - Final Complete 06/11/24 16:06 Respiratory Culture - Final Acinetobacter baumannii Pseudomonas aeruginosa Complete 05/30/24 11:45 Pleural Fluid Gram Stain - Final Complete 05/30/24 11:45 Pleural Fluid Body Fluid Culture - Final Complete 05/28/24 22:36 Urine - Catheterized Urine Culture - Final Enterobacter cloacae Escherichia coli Enterococcus faecalis - VRE Complete Problem List/Assessment/Plan Problem List/Assessment/Plan Acute kidney injury superimposed on chronic kidney disease stage 4, oliguric requiring initiation of hemodialysis D Acute respiratory failure, patient is trached Anemia suspected due to low blood loss s/p PRBC Septic shock Hypernatremia , resolved Hypomagnesemia Peripheral arterial disease Right above knee amputation Metabolic acidosis Chronic urinary retention MRSA bacteremia Recommendations Continue with UF to 3 L as tolerated Epogen 50804 IV post hemodialysis Rubio catheter Strict I&Os Renal diet IV antibiotic per ID consult We will continue to follow Plan discussed with: Patient My Orders My Orders Orders - DAVID TORRES MD Procedure Category Date Status Time Hemodialysis Orders ORDERS 07/15/24 Transmitted 07:00 Dialysis Nursing SUZAN 07/15/24 In Process Message 07:00 Document Fluid Input SUZAN 07/15/24 In Process And Outpu 07:00 Epoetin Calin-Epbx PHA 07/15/24 In Process (Retacrit) 21:00 Dietary Evaluation Review Comments: 1) If GI is assessible consider Jevity 1.2 @ 60 ml/hr x24 hrs goal rate as tolerated 2) If pt remains NPO >7 days consider TPN to meet at least 75% of estimated needs 3) Advance pt diet when medically feasible to a Cardiac/Renal Specific K2,2gmNA,low phos,60g Pro diet modified per BIRD SITTER recommendations 4) Continue current plan of care Expected Outcomes/Goals: 1) Pt to receive adequate nutrition support 2) Pt diet to advance CC Plasma Assessment Blood Product Administration S: [id number] DAVID TORRES MD Jul 15, 2024 10:19
[2024-07-15] MEDS: DEXTROSE (50%) 50ML SYRG IV ONE (10:47)
[2024-07-15] MEDS: InsuLIN REG 1unit/0.01ml Soln (100units/ml) IV ONE (11:05)
[2024-07-15] MEDS: SODIUM ZIRCONIUM CYCL 10 GM PAK PO ONE (11:18)
--- NOTE | 2024-07-15 17:07 | DVHPNRES ---
Progress Note Date Seen: Jul 15, 2024 Resident Creating Document: THA CRISOSTOMO RESIDENT Has the PT tested + for MRSA If YES, has PT been informed?: Yes Medical Necessity Reason Pt with a Central, PICC or Fol: Yes The following are medically ne: Rubio Catheter Reason for rubio catheter: Strict I&O Subjective Review of Systems This is a 65-year-old male with past medical history of CHF, CKD, COPD, dyslipidemia, hypertension, CVA brought to the hospital with shortness of breaths and at the level of consciousness. Admitted and intubated on 05/28, extubated on 06/09 but reintubated on 06/10. Epigastric performed on 06/13, PEG tube placed on 06/15. 07/01 - Patient seen and examined at bedside. Overnight no events, patient made 150 cc of urine in the morning and 125 cc in the night. Multiple bowel movements 500 cc on 06/30, 250 cc on the night of 07/01 and 200 on the morning of 07/01. Lactulose changed to p.r.n.. Patient is intubated and mechanically ventilated. Patient is satting 97% on trach collar via 6 L oxygen supplementation for the past 24 hours. He is not on pressor support. On fentanyl 20 mcg. Increase metoprolol to 50 mg b.i.d. and started clonidine 0.1 mg b.i.d.. Started fentanyl patch 25 mcg. IV fentanyl will be discontinued after overlapping her 4-5 hours with fentanyl patch. 07/02 - overnight patient made 100 mL of urine. 50 mL of output was drain from colostomy bag. Otherwise no events. Patient seen and examined at bedside. He underwent dialysis this morning and 2.5 L were drained. Chest x-ray reviewed shows worsening left-sided infiltrate. Patient is satting 98% on 3 color with 6 L oxygen supplementation. 07/03 - overnight colostomy bag was leaking so it was changed. Patient had 50 mL urine output in the food general manager, 115 mL during the of the of 07/02. Colostomy bag was drained with 50 mL of contents. Patient is still hypotensive systolic ranging in 150s to 160s therefore clonidine increased to 0.2 mg b.i.d.. Creatinine trending down to 3.2. Tunnel catheter consent obtained. IR consulted. NPO starting morning. Final blood culture 06/28 shows no growth. IV antibiotics discontinued. 07/04 - overnight patient had 200 mL of colostomy output. Urine output 125 in the day of 07/03 and 150 in the food general manager. Tunneled catheter placed to the right upper chest. DC left IJ catheter once dialysis session completed. Undergoing dialysis session today. 07/07 - patient seen and examined in the bedside. Underwent dialysis today. Over the weekend bronchoscopy completed 07/05 showed left lower lobe atelectasis due to mucus plugging and right lower lobe mucous plugging. 07/08 - pt desatted to 70s in the morning. CXR shows air in the subcutaneous tiisues. CT chest w/o ordered, showed Pneumomediastinum and pneumopericardium. Bilateral pleural effusions, left slightly greater than right. Bilateral lower lobe opacities compatible with compressive atelectasis. o2 supp increased to 10L from 6, and fio2 increased to 100%. Pt underwent bronch,showed Left lower lobe atelectasis due to mucous plugging. Mucous plugging from L6-L10. Pt switched to ventilator and IV fent started. Facial swelling resolving. 07/09 - overnight, pt desatted which improved with suctioning. HD today, lsix 40mg IV once. 07/10 - patient seen and examined at the bedside. No overnight events. Patient is more responsive, moving upper extremities to command . 07/11 - overnight no acute events. Saturating 97 on 6 L oxygen supplementation 07/14 - overnight patient drops his saturation to 80s, improves after suctioning back to 90s. Patient has creamy white secretions. Hemodialysis tomorrow. Potassium 5.3, albuterol, dextrose and insulin given. Started acetylcysteine 200 mg nebulized q.6 hour. Changed suprapubic catheter. 07/15 - patient seen and examined at bedside. 1060cc urine overnight. Objective vital signs Vital Sign Date Time Temp Pulse Resp B/P (MAP) Pulse Ox O2 Delivery O2 Flow Rate FiO2 07/15/24 15:34 140/68 07/15/24 14:00 66 07/15/24 14:00 21 98 T-piece 6 28 28 07/15/24 12:45 98.1 98.1 Total Intake and Output 07/14/24 07/14/24 07/15/24 15:00 23:00 07:00 Intake Total 580 ml 780 ml Output Total 200 ml 100 ml Balance 380 ml 680 ml medications Current Medications Medications Dose Ordered Sig/[place] Route Start Time Stop Time Status Last Admin Dose Admin Enoxaparin Sodium 40 mg DAILY SC 06/10/24 10:00 UNV Enoxaparin Sodium 40 mg DAILY SC 06/17/24 10:00 UNV Epoetin [place]-epbx 10,000 unit TUTHSA SC 06/17/24 12:00 Hold 06/28/24 08:25 10,000 UNIT Sodium Chloride 10 ml QSHIFT@10,22 IV 06/17/24 22:00 07/15/24 10:44 10 ML Acetaminophen 650 mg Q6HP PRN GT 06/20/24 11:30 06/28/24 17:05 650 MG Hydralazine HCl 10 mg Q4HP PRN IV 06/24/24 16:45 07/14/24 03:49 10 MG Omeprazole 20 mg DAILY GT 06/26/24 10:00 07/15/24 11:25 20 MG Albuterol 2.5 mg Q6HPRN PRN NEB 06/28/24 11:30 07/14/24 09:11 2.5 MG Lactulose 30 ml [id number] PRN PEG 07/01/24 10:15 Metoprolol Tartrate 50 mg BID PO 07/01/24 22:00 07/15/24 10:43 50 MG Enteral Nutritional Formula 1,000 ml 60ML/HR GT 07/02/24 11:00 07/15/24 15:16 1,000 ML Clonidine HCl 0.2 mg BID PO 07/03/24 22:00 07/15/24 10:43 0.2 MG Enoxaparin Sodium 30 mg DAILY SC 07/08/24 10:00 07/15/24 10:42 30 MG Hydralazine HCl 100 mg Q8HR PO 07/07/24 22:00 07/15/24 15:19 100 MG Heparin Sodium (Porcine) 4,000 units JACKY PRN XX 07/09/24 11:00 Amlodipine Besylate 10 mg DAILY PO 07/11/24 10:00 07/15/24 10:44 10 MG Fentanyl 25 mcg Q72H TD 07/12/24 13:00 07/15/24 15:34 25 MCG Acetylcysteine 200 mg Q6HR NEB 07/14/24 12:00 07/15/24 12:44 200 MG Albuterol 2.5 mg Q6HR NEB 07/14/24 12:00 07/15/24 12:43 2.5 MG Ipratropium [place] 0.5 mg Q6HR NEB 07/14/24 12:00 07/15/24 12:44 0.5 MG Examination Patient lying in bed, in no acute distress. Patient is alert and following commands General: afebrile, palor, mucosae are moist. Resolving facial swelling. Cardiovascular: Regular S1 and S2. No murmurs, gallops or rubs. No JVD elevation. Resolving Bilateral pitting edema. Respiratory: Decreased but equal Bilateral air entry. Saturating 92% with 6 L supplementation via tracheostomy. Abdomen: Soft, nontender, nondistended, normoactive bowel sounds, no rebound tenderness, no organomegaly, no masses. Suprapubic catheter seen draining urine and colostomy bag seen draining 40 mL of orange mustard stool which is liquid in consistency. Peg tube in place. Genitourinary: Stage III sacral ulcer, skin non intact, draining pus and erythema noted. MSK/skin: Patient is moving upper extremities to commands. Skin is dry and warm Neurological: Pupils are isocoric and reactive. laboratory and microbiology Laboratory Tests 07/15/24 06:00 Test 07/15/24 06:00 Range/Units Serum Glucose 110 H 74-106 mg/dL Microbiology Date/Time Source Procedure Growth Status 06/28/24 15:27 Blood Blood Culture - Final NO GROWTH AFTER 5 DAYS OF INCUBATION. Complete 06/25/24 08:20 Catheter Site Aerobic Culture - Final Methicillin Resistant S.aureus Acinetobacter baumannii MDRO Enterococcus faecalis Complete 06/11/24 16:06 Bronchial Washings Gram Stain - Final Complete 06/11/24 16:06 Respiratory Culture - Final Acinetobacter baumannii Pseudomonas aeruginosa Complete 05/30/24 11:45 Pleural Fluid Gram Stain - Final Complete 05/30/24 11:45 Pleural Fluid Body Fluid Culture - Final Complete 05/28/24 22:36 Urine - Catheterized Urine Culture - Final Enterobacter cloacae Escherichia coli Enterococcus faecalis - VRE Complete Labs and/or images reviewed: Labs reviewed by me, Image(s) reviewed by me Problem List/Assessment/Plan Problem List/Assessment/Plan NEURO: Acute metabolic encephalopathy likely due to sepsis History of seizure History of stroke - 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 Started clonidine 0.1 mg twice daily 07/01. Clonidine increased to 0.2 mg b.i.d. 07/03 Final blood culture 06/28 shows no growth PULMONARY: Acute Hypoxic Respiratory Failure likely due to pneumonia Septic shock likely due to pneumonia, improved Pneumonia likely due to MRSA and Enterobacter cloacae Pneumomediastinum and pneumopericardium - Patient is sedated and mechanically ventilated with PEEP of 30% - CT scan shows [id number] left pleural effusion - MRSA nares screening, COVID-19 and flu are negative - Bronchoscopy performed on 06/11, there was some thin mucus secretion on bilateral side, bronchial lavage of right lower lobe and left lower lobe was performed, and the culture results shows Pseudomonas aeruginosa and Enterobacter baumanni, MDR; ID has been consulted - Sputum culture from bronchoalveolar lavage from 05/24/24 shows MRSA, Enterobacter cloacae - Blood culture from the 06/02/24 shows Staphylococcus epidermidis , Staph hominis - Repeat culture from 06/09/2024 shows no growth - Stopped IV linezolid, given for 11 days, discontinued meropenem, started on 06/08 and given for 12 days - started acetylcysteine nebulized 07/14 - Breathing treatment q.6 hours p.r.n. -started fentanyl patch 25 mcg 07/01 - bronchoscopy completed 07/05 showed left lower lobe atelectasis due to mucus plugging and right lower lobe mucous plugging. - 07/08 - pt desatted to 70s in the morning. CXR shows air in the subcutaneous tissues. CT chest w/o ordered, showed Pneumomediastinum and pneumopericardium. Bilateral pleural effusions, left slightly greater than right. Bilateral lower lobe opacities compatible with compressive atelectasis. o2 supp increased to 10L from 6, and fio2 increased to 100%. Pt underwent bronch,showed Left lower lobe atelectasis due to mucous plugging. Mucous plugging from L6-L10. GI - GI ppx: omeprazole 20mg daily via OG tube - Hepatitis-C virus antibody positive - Repeat stool occult blood test is negative - CT abdominopelvic without contrast shows no evidence of intra-abdominal hemorrhage - Tracheostomy is performed on 06/13 - PEG tube is placed on 06/15 - Bowel regimen: Lactulose 30 mL b.i.d. change to p.r.n. 07/01 : FROYLAN, possible VMN on ESRD requiring hemodialysis - Nephrology consulted, epoetin morena 85010 units SC post dialysis. Radiology for tunneled hemodialysis catheter when the blood culture negative for 72 hours - Stopped Bumix 1mg BID - creatinine increased to 3.91 from 3.64 - Homer catheter placed on left internal jugular, on 06/26, removed on 07/04 - tunneled catheter placed to the right upper chest 07/04 - hemodialysis completed 07/02 and 07/04 and 07/07, 07/09, 07/12 UTI, urinalysis shows UTI picture - Urine culture from 05/28/2024 shows Enterobacter, E coli, Enterococcus faecalis Status post right lower limb, AKA likely due to PAD Decubitus ulcer - There are multiple stage 3-4 sacral ulcers draining pus - position changing every 2 hours and dressing -started fentanyl patch 25 mcg 07/01 HEME Severe anemia, transfused 4 pack of red blood cells Anemia of chronic disease Thrombocytopenia - current HB is 8.6 - Retacrit T/TH/SAT ID: - Sputum culture from bronchoalveolar lavage from 05/24/24 shows MRSA, Enterobacter cloacae - Blood culture from the 06/02/24 shows Staphylococcus epidermidis , Staph hominis - Repeat culture from 06/09/2024 shows no growth - culture results from BAL from 06/11 shows Pseudomonas aeruginosa and Enterobacter baumanni, MDR - discontinued IV linezolid starting 06/28 and meropenem starting 06/25, discontinued in 07/03 - previously received vancomycin - catheter site culture 06/25 completed shows MRSA, Acinetobacter baumannii MDRO, Enterococcus faecalis. SKIN Possible keloid - There is a growth on the left shoulder, per son, lesion has been present for several years - Follow up on outpatient basis Metabolic: Hypernatremia, improved Hypokalemia, discontinued potassium supplementation given ESRD Hyperkalemia, albuterol, insulin d5w administered Mild hyponatremia, monitoring Hypoglycemic episodes, improved Hypomagnesemia, supplemented LINES/DRAINS/ACCESS: ETT, intubated on 05/28/2024 and tracheostomy performed on 06/11, PEG tube placed on 06/15 IV access Left internal jugular CVC, placed on 06/26 and removed on 07/04 Right IJ hemodialysis catheter placed 07/04 Suprapubic catheter, changed on 07/14/2024 Dripps: Fentanyl patch 25 mg Off pressor DIET: Jevity 1.2 john 60 mL/hour DVT prophylaxis Lovenox 30mg SC daily Disposition: social work case manager consulted for transfer to the [facility]. Will be transfered to [facility] in [facility] or [facility]. critical care time including review of charts, discussing case with patient's nurse, and son excluding procedures is 42 mins CODE STATUS: Full code Plan discussed with patient and his son at bedside in which all questions have been answered. Case discussed with Dr. Isabel. Plan discussed with: Patient Dietary Evaluation Review Comments: 1) If GI is assessible consider Jevity 1.2 @ 60 ml/hr x24 hrs goal rate as tolerated 2) If pt remains NPO >7 days consider TPN to meet at least 75% of estimated needs 3) Advance pt diet when medically feasible to a Cardiac/Renal Specific K2,2gmNA,low phos,60g Pro diet modified per WING SC[employer]ER recommendations 4) Continue current plan of care Expected Outcomes/Goals: 1) Pt to receive adequate nutrition support 2) Pt diet to advance CC Plasma Assessment Blood Product Administration S: [id number] Date of Service: Jul 15, 2024 Billing Provider: HOLGER ISABEL MD Common Visit Codes: 26443-[id number] CARE 30-74 MIN THA CRISOSTOMO RESIDENT Jul 15, 2024 17:07 HOLGER ISABEL MD Jul 16, 2024 15:41
[2024-07-16] VITALS (105 sets, daily range): BP systolic 114–168; BP diastolic 48–86; PULSE 59–90; RESP 11–29; TEMP 98.3–100.2; O2SAT 92–100
[2024-07-16] MEDS: EPOETIN ALFA-EPBX 10,000 UNIT/1ML VIAL SC ONE (01:41)
[2024-07-16 05:54] LABS: Anion Gap 5 (5-15); Carbon Dioxide 30 mmol/L (20-31); Chloride 105 mmol/L (98-107); Potassium 4.2 mmol/L (3.5-5.1); Sodium 140 mmol/L (136-145)
[2024-07-16 05:56] LABS: Calcium 9.2 mg/dL (8.7-10.4)
[2024-07-16 06:00] LABS: Glucose 89 mg/dL (74-106)
[2024-07-16 06:01] LABS: BUN/Creatinine Ratio 11.4 (10.0-20.0); Magnesium 1.9 mg/dL (1.6-2.6)
[2024-07-16 06:06] LABS: Basophils # (auto) 0 10 ^3/uL (0-0.2); Eosinophils # (auto) 0.3 10 ^3/uL (0-0.8); Hemoglobin 8.4 g/dL (13.5-17.5); Lymphocytes # (auto) 0.6 10 ^3/uL (0.4-5.4); Lymphocytes % (auto) 7.9 % (10.0-50.0); Monocytes # (auto) 0.1 10 ^3/uL (0-1.3); Neutrophils # (auto) 6.2 10 ^3/uL (1.6-8.6)
[2024-07-16 06:08] LABS: Basophils % (auto) 0.3 % (0.0-2.0); Eosinophils % (auto) 3.9 % (0.0-7.0); Hematocrit 25.4 % (41.0-53.0); Mean Corpuscular Hgb Conc. 33.1 g/dL (32.0-36.0); Mean Corpuscular Volume 99.7 fL (80.0-100.0); Monocytes % (auto) 1.9 % (0.0-12.0); Platelet Count (auto) 172 10^3/uL (140-450); Red Blood Cells 2.55 10^6/uL (4.5-5.90); White Blood Cell 7.2 10^3/uL (4.4-10.8)
[2024-07-16 06:32] LABS: Red Cell Distribution Width 21.1 % (11.8-14.3)
[2024-07-16 06:50] LABS: Blood Urea Nitrogen 25 mg/dL (9-23)
--- NOTE | 2024-07-16 10:14 | DVHPN2 ---
Progress Note Date Seen: Jul 16, 2024 Has the PT tested + for MRSA If YES, has PT been informed?: Yes Medical Necessity Reason Pt with a Central, PICC or Fol: Yes The following are medically ne: Rubio Catheter Reason for rubio catheter: Strict I&O Subjective Patient reports: No new complaints Review of Systems: RESPIRATORY:Abnormal Objective vital signs Vital Sign Date Time Temp Pulse Resp B/P (MAP) Pulse Ox O2 Delivery O2 Flow Rate FiO2 07/16/24 08:00 99.6 78 28 139/70 (93) 95 99.6 07/16/24 06:00 T-piece 6 28 28 Total Intake and Output 07/15/24 07/15/24 07/16/24 15:00 23:00 07:00 Intake Total 0 ml 1184 ml Output Total 335 ml 500 ml Balance -335 ml 684 ml medications Current Medications Medications Dose Ordered Sig/[place] Route Start Time Stop Time Status Last Admin Dose Admin Enoxaparin Sodium 40 mg DAILY SC 06/10/24 10:00 UNV Enoxaparin Sodium 40 mg DAILY SC 06/17/24 10:00 UNV Epoetin [place]-epbx 10,000 unit TUTHSA SC 06/17/24 12:00 Hold 06/28/24 08:25 10,000 UNIT Sodium Chloride 10 ml QSHIFT@,22 IV 06/17/24 22:00 07/15/24 21:33 10 ML Acetaminophen 650 mg Q6HP PRN GT 06/20/24 11:30 07/15/24 20:50 650 MG Hydralazine HCl 10 mg Q4HP PRN IV 06/24/24 16:45 07/14/24 03:49 10 MG Omeprazole 20 mg DAILY GT 06/26/24 10:00 07/15/24 11:25 20 MG Albuterol 2.5 mg Q6HPRN PRN NEB 06/28/24 11:30 07/14/24 09:11 2.5 MG Lactulose 30 ml [id number] PRN PEG 07/01/24 10:15 Metoprolol Tartrate 50 mg BID PO 07/01/24 22:00 07/15/24 21:31 50 MG Enteral Nutritional Formula 1,000 ml 60ML/HR GT 07/02/24 11:00 07/15/24 15:16 1,000 ML Clonidine HCl 0.2 mg BID PO 07/03/24 22:00 07/15/24 21:32 0.2 MG Enoxaparin Sodium 30 mg DAILY SC 07/08/24 10:00 07/15/24 10:42 30 MG Hydralazine HCl 100 mg Q8HR PO 07/07/24 22:00 07/16/24 05:44 100 MG Heparin Sodium (Porcine) 4,000 units JACKY PRN XX 07/09/24 11:00 Amlodipine Besylate 10 mg DAILY PO 07/11/24 10:00 07/15/24 10:44 10 MG Fentanyl 25 mcg Q72H TD 07/12/24 13:00 07/15/24 15:34 25 MCG Acetylcysteine 200 mg Q6HR NEB 07/14/24 12:00 07/16/24 05:21 200 MG Albuterol 2.5 mg Q6HR NEB 07/14/24 12:00 07/16/24 05:21 2.5 MG Ipratropium [place] 0.5 mg Q6HR NEB 07/14/24 12:00 07/16/24 05:21 0.5 MG Examination: GENERAL:Abnormal, LUNGS:Abnormal, ABDOMEN:Abnormal, MSK:Abnormal, SKIN:Abnormal laboratory and microbiology Laboratory Tests 07/16/24 04:20 Test 07/16/24 04:20 Range/Units Serum Glucose 89 74-106 mg/dL Microbiology Date/Time Source Procedure Growth Status 06/28/24 15:27 Blood Blood Culture - Final NO GROWTH AFTER 5 DAYS OF INCUBATION. Complete 06/25/24 08:20 Catheter Site Aerobic Culture - Final Methicillin Resistant S.aureus Acinetobacter baumannii MDRO Enterococcus faecalis Complete 06/11/24 16:06 Bronchial Washings Gram Stain - Final Complete 06/11/24 16:06 Respiratory Culture - Final Acinetobacter baumannii Pseudomonas aeruginosa Complete 05/30/24 11:45 Pleural Fluid Gram Stain - Final Complete 05/30/24 11:45 Pleural Fluid Body Fluid Culture - Final Complete 05/28/24 22:36 Urine - Catheterized Urine Culture - Final Enterobacter cloacae Escherichia coli Enterococcus faecalis - VRE Complete Problem List/Assessment/Plan Problem List/Assessment/Plan Acute kidney injury on ckd 4 - progressed to ckd 5? Acute respiratory failure advanced a chronic respiratory failure status post trach now trach to wall oxygen Septic shock resolved due to multidrug resistant organisms Peripheral artery disease Coronary artery disease Severe protein calorie malnutrition anemia due to ckd HD tomorrow after assessment of [facility] hospice candidate obtain phos level tube feeding anemia panel and epogen Plan discussed with: Patient Dietary Evaluation Review Comments: 1) If GI is assessible consider Jevity 1.2 @ 60 ml/hr x24 hrs goal rate as tolerated 2) If pt remains NPO >7 days consider TPN to meet at least 75% of estimated needs 3) Advance pt diet when medically feasible to a Cardiac/Renal Specific K2,2gmNA,low phos,60g Pro diet modified per IGNITION MECHANIC recommendations 4) Continue current plan of care Expected Outcomes/Goals: 1) Pt to receive adequate nutrition support 2) Pt diet to advance CC Plasma Assessment Blood Product Administration S: [id number] ANNA ROMERO MD Jul 16, 2024 10:14
--- NOTE | 2024-07-16 11:51 | ECG ---
[facility] Test Date: 2024-06-23 Test Time: 07:21:20 Pat Name: FERNANDO HIGH Department: Respiratoy Room: 0263 A Gender: M Stoneworker: : 1955 Requested By: SUKI MERINO Order Number: [id number] Reading MD: Rachael Montoya Measurements Intervals [place] Rate: 136 P: -54 HI: 137 QRS: -45 QRSD: 103 T: 133 QT: 316 QTc: 476 Interpretive Statements Atrial fibrillation with rapid ventricular response Paired ventricular premature complexes LAD, consider left anterior fascicular block LVH with secondary repolarization abnormality Anterior infarct, old Baseline wander in lead(s) II,III,V4 Electronically Signed On 07-16-2024 17:46:39 PST by Rachael Montoya Please click the below link to view image of tracing.
--- NOTE | 2024-07-16 17:38 | DVHPNRES ---
Progress Note Date Seen: Jul 16, 2024 Resident Creating Document: THA CRISOSTOMO RESIDENT Has the PT tested + for MRSA If YES, has PT been informed?: Yes Medical Necessity Reason Pt with a Central, PICC or Fol: Yes The following are medically ne: Rubio Catheter Reason for rubio catheter: Strict I&O Subjective Review of Systems This is a 65-year-old male with past medical history of CHF, CKD, COPD, dyslipidemia, hypertension, CVA brought to the hospital with shortness of breaths and at the level of consciousness. Admitted and intubated on 05/28, extubated on 06/09 but reintubated on 06/10. Epigastric performed on 06/13, PEG tube placed on 06/15. 07/01 - Patient seen and examined at bedside. Overnight no events, patient made 150 cc of urine in the morning and 125 cc in the night. Multiple bowel movements 500 cc on 06/30, 250 cc on the night of 07/01 and 200 on the morning of 07/01. Lactulose changed to p.r.n.. Patient is intubated and mechanically ventilated. Patient is satting 97% on trach collar via 6 L oxygen supplementation for the past 24 hours. He is not on pressor support. On fentanyl 20 mcg. Increase metoprolol to 50 mg b.i.d. and started clonidine 0.1 mg b.i.d.. Started fentanyl patch 25 mcg. IV fentanyl will be discontinued after overlapping her 4-5 hours with fentanyl patch. 07/02 - overnight patient made 100 mL of urine. 50 mL of output was drain from colostomy bag. Otherwise no events. Patient seen and examined at bedside. He underwent dialysis this morning and 2.5 L were drained. Chest x-ray reviewed shows worsening left-sided infiltrate. Patient is satting 98% on 3 color with 6 L oxygen supplementation. 07/03 - overnight colostomy bag was leaking so it was changed. Patient had 50 mL urine output in the assistant shift supervisor, 115 mL during the of the of 07/02. Colostomy bag was drained with 50 mL of contents. Patient is still hypotensive systolic ranging in 150s to 160s therefore clonidine increased to 0.2 mg b.i.d.. Creatinine trending down to 3.2. Tunnel catheter consent obtained. IR consulted. NPO starting morning. Final blood culture 06/28 shows no growth. IV antibiotics discontinued. 07/04 - overnight patient had 200 mL of colostomy output. Urine output 125 in the day of 07/03 and 150 in the assistant shift supervisor. Tunneled catheter placed to the right upper chest. DC left IJ catheter once dialysis session completed. Undergoing dialysis session today. 07/07 - patient seen and examined in the bedside. Underwent dialysis today. Over the weekend bronchoscopy completed 07/05 showed left lower lobe atelectasis due to mucus plugging and right lower lobe mucous plugging. 07/08 - pt desatted to 70s in the morning. CXR shows air in the subcutaneous tiisues. CT chest w/o ordered, showed Pneumomediastinum and pneumopericardium. Bilateral pleural effusions, left slightly greater than right. Bilateral lower lobe opacities compatible with compressive atelectasis. o2 supp increased to 10L from 6, and fio2 increased to 100%. Pt underwent bronch,showed Left lower lobe atelectasis due to mucous plugging. Mucous plugging from L6-L10. Pt switched to ventilator and IV fent started. Facial swelling resolving. 07/09 - overnight, pt desatted which improved with suctioning. HD today, lsix 40mg IV once. 07/10 - patient seen and examined at the bedside. No overnight events. Patient is more responsive, moving upper extremities to command . 07/11 - overnight no acute events. Saturating 97 on 6 L oxygen supplementation 07/14 - overnight patient drops his saturation to 80s, improves after suctioning back to 90s. Patient has creamy white secretions. Hemodialysis tomorrow. Potassium 5.3, albuterol, dextrose and insulin given. Started acetylcysteine 200 mg nebulized q.6 hour. Changed suprapubic catheter. 07/15 - patient seen and examined at bedside. 1060cc urine overnight 07/16 - overnight patient had dialysis. Patient is alert and talking. Objective vital signs Vital Sign Date Time Temp Pulse Resp B/P (MAP) Pulse Ox O2 Delivery O2 Flow Rate FiO2 07/16/24 14:22 135/61 07/16/24 12:00 100.2 65 24 100 100.2 07/16/24 06:00 T-piece 6 28 28 Total Intake and Output 07/15/24 07/15/24 07/16/24 15:00 23:00 07:00 Intake Total 0 ml 1184 ml Output Total 335 ml 500 ml Balance -335 ml 684 ml medications Current Medications Medications Dose Ordered Sig/[place] Route Start Time Stop Time Status Last Admin Dose Admin Enoxaparin Sodium 40 mg DAILY SC 06/10/24 10:00 UNV Enoxaparin Sodium 40 mg DAILY SC 06/17/24 10:00 UNV Epoetin [place]-epbx 10,000 unit TUTHSA SC 06/17/24 12:00 Hold 06/28/24 08:25 10,000 UNIT Sodium Chloride 10 ml QSHIFT@,22 IV 06/17/24 22:00 07/16/24 10:27 10 ML Acetaminophen 650 mg Q6HP PRN GT 06/20/24 11:30 07/15/24 20:50 650 MG Hydralazine HCl 10 mg Q4HP PRN IV 06/24/24 16:45 07/14/24 03:49 10 MG Omeprazole 20 mg DAILY GT 06/26/24 10:00 07/16/24 11:14 20 MG Albuterol 2.5 mg Q6HPRN PRN NEB 06/28/24 11:30 07/14/24 09:11 2.5 MG Lactulose 30 ml [id number] PRN PEG 07/01/24 10:15 Metoprolol Tartrate 50 mg BID PO 07/01/24 22:00 07/16/24 10:26 50 MG Enteral Nutritional Formula 1,000 ml 60ML/HR GT 07/02/24 11:00 07/16/24 14:42 1,000 ML Clonidine HCl 0.2 mg BID PO 07/03/24 22:00 07/16/24 10:26 0.2 MG Enoxaparin Sodium 30 mg DAILY SC 07/08/24 10:00 07/16/24 10:27 30 MG Hydralazine HCl 100 mg Q8HR PO 07/07/24 22:00 07/16/24 14:22 100 MG Heparin Sodium (Porcine) 4,000 units JACKY PRN XX 07/09/24 11:00 Amlodipine Besylate 10 mg DAILY PO 07/11/24 10:00 07/16/24 10:27 10 MG Fentanyl 25 mcg Q72H TD 07/12/24 13:00 07/15/24 15:34 25 MCG Acetylcysteine 200 mg Q6HR NEB 07/14/24 12:00 07/16/24 05:21 200 MG Albuterol 2.5 mg Q6HR NEB 07/14/24 12:00 07/16/24 05:21 2.5 MG Ipratropium [place] 0.5 mg Q6HR NEB 07/14/24 12:00 07/16/24 05:21 0.5 MG Examination Patient lying in bed, in no acute distress. Patient is alert and following commands General: afebrile, palor, mucosae are moist. Resolving facial swelling. Cardiovascular: Regular S1 and S2. No murmurs, gallops or rubs. No JVD elevation. Resolving Bilateral pitting edema. Respiratory: Decreased but equal Bilateral air entry. Saturating 92% with 6 L supplementation via tracheostomy. Abdomen: Soft, nontender, nondistended, normoactive bowel sounds, no rebound tenderness, no organomegaly, no masses. Suprapubic catheter seen draining urine and colostomy bag seen draining 70 mL of orange mustard stool which is liquid in consistency. Peg tube in place. Genitourinary: Stage III sacral ulcer, skin non intact, draining pus and erythema noted. MSK/skin: Patient is moving upper extremities to commands. Skin is dry and warm Neurological: Pupils are isocoric and reactive. laboratory and microbiology Laboratory Tests 07/16/24 04:20 Test 07/16/24 04:20 Range/Units Serum Glucose 89 74-106 mg/dL Microbiology Date/Time Source Procedure Growth Status 06/28/24 15:27 Blood Blood Culture - Final NO GROWTH AFTER 5 DAYS OF INCUBATION. Complete 06/25/24 08:20 Catheter Site Aerobic Culture - Final Methicillin Resistant S.aureus Acinetobacter baumannii MDRO Enterococcus faecalis Complete 06/11/24 16:06 Bronchial Washings Gram Stain - Final Complete 06/11/24 16:06 Respiratory Culture - Final Acinetobacter baumannii Pseudomonas aeruginosa Complete 05/30/24 11:45 Pleural Fluid Gram Stain - Final Complete 05/30/24 11:45 Pleural Fluid Body Fluid Culture - Final Complete 05/28/24 22:36 Urine - Catheterized Urine Culture - Final Enterobacter cloacae Escherichia coli Enterococcus faecalis - VRE Complete Labs and/or images reviewed: Labs reviewed by me, Image(s) reviewed by me Problem List/Assessment/Plan Problem List/Assessment/Plan NEURO: Acute metabolic encephalopathy likely due to sepsis History of seizure History of stroke - 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 Started clonidine 0.1 mg twice daily 07/01. Clonidine increased to 0.2 mg b.i.d. 07/03 Final blood culture 06/28 shows no growth PULMONARY: Acute Hypoxic Respiratory Failure likely due to pneumonia Septic shock likely due to pneumonia, improved Pneumonia likely due to MRSA and Enterobacter cloacae Pneumomediastinum and pneumopericardium - Patient is sedated and mechanically ventilated with PEEP of 30% - CT scan shows [id number] left pleural effusion - MRSA nares screening, COVID-19 and flu are negative - Bronchoscopy performed on 06/11, there was some thin mucus secretion on bilateral side, bronchial lavage of right lower lobe and left lower lobe was performed, and the culture results shows Pseudomonas aeruginosa and Enterobacter baumanni, MDR; ID has been consulted - Sputum culture from bronchoalveolar lavage from 05/24/24 shows MRSA, Enterobacter cloacae - Blood culture from the 06/02/24 shows Staphylococcus epidermidis , Staph hominis - Repeat culture from 06/09/2024 shows no growth - Stopped IV linezolid, given for 11 days, discontinued meropenem, started on 06/08 and given for 12 days - started acetylcysteine nebulized 07/14 - Breathing treatment q.6 hours p.r.n. -started fentanyl patch 25 mcg 07/01 - bronchoscopy completed 07/05 showed left lower lobe atelectasis due to mucus plugging and right lower lobe mucous plugging. - 07/08 - pt desatted to 70s in the morning. CXR shows air in the subcutaneous tissues. CT chest w/o ordered, showed Pneumomediastinum and pneumopericardium. Bilateral pleural effusions, left slightly greater than right. Bilateral lower lobe opacities compatible with compressive atelectasis. o2 supp increased to 10L from 6, and fio2 increased to 100%. Pt underwent bronch,showed Left lower lobe atelectasis due to mucous plugging. Mucous plugging from L6-L10. GI - GI ppx: omeprazole 20mg daily via OG tube - Hepatitis-C virus antibody positive - Repeat stool occult blood test is negative - CT abdominopelvic without contrast shows no evidence of intra-abdominal hemorrhage - Tracheostomy is performed on 06/13 - PEG tube is placed on 06/15 - Bowel regimen: Lactulose 30 mL b.i.d. change to p.r.n. 07/01 : FROYLAN, possible VMN on ESRD requiring hemodialysis - Nephrology consulted, epoetin morena 53321 units SC post dialysis. Radiology for tunneled hemodialysis catheter when the blood culture negative for 72 hours - Stopped Bumix 1mg BID - creatinine increased to 3.91 from 3.64 - Homer catheter placed on left internal jugular, on 06/26, removed on 07/04 - tunneled catheter placed to the right upper chest 07/04 - hemodialysis completed 07/02 and 07/04 and 07/07, 07/09, 07/12, 07/15 UTI, urinalysis shows UTI picture - Urine culture from 05/28/2024 shows Enterobacter, E coli, Enterococcus faecalis Status post right lower limb, AKA likely due to PAD Decubitus ulcer - There are multiple stage 3-4 sacral ulcers draining pus - position changing every 2 hours and dressing -started fentanyl patch 25 mcg 07/01 HEME Severe anemia, transfused 4 pack of red blood cells Anemia of chronic disease Thrombocytopenia - current HB is 8.6 - Retacrit T/TH/SAT ID: - Sputum culture from bronchoalveolar lavage from 05/24/24 shows MRSA, Enterobacter cloacae - Blood culture from the 06/02/24 shows Staphylococcus epidermidis , Staph hominis - Repeat culture from 06/09/2024 shows no growth - culture results from BAL from 06/11 shows Pseudomonas aeruginosa and Enterobacter baumanni, MDR - discontinued IV linezolid starting 06/28 and meropenem starting 06/25, discontinued in 07/03 - previously received vancomycin - catheter site culture 06/25 completed shows MRSA, Acinetobacter baumannii MDRO, Enterococcus faecalis. SKIN Possible keloid - There is a growth on the left shoulder, per son, lesion has been present for several years - Follow up on outpatient basis Metabolic: Hypernatremia, improved Hypokalemia, discontinued potassium supplementation given ESRD Hyperkalemia, albuterol, insulin d5w administered Mild hyponatremia, monitoring Hypoglycemic episodes, improved Hypomagnesemia, supplemented LINES/DRAINS/ACCESS: ETT, intubated on 05/28/2024 and tracheostomy performed on 06/11, PEG tube placed on 06/15 IV access Left internal jugular CVC, placed on 06/26 and removed on 07/04 Right IJ hemodialysis catheter placed 07/04 Suprapubic catheter, changed on 07/14/2024 Dripps: Fentanyl patch 25 mg Off pressor DIET: Jevity 1.2 john 60 mL/hour DVT prophylaxis Lovenox 30mg SC daily Disposition: social sciences professor consulted for transfer to the [facility]. Will be transfered to [facility] or [facility] critical care time including review of charts, discussing case with patient's nurse, and son excluding procedures is 42 mins CODE STATUS: Full code Plan discussed with patient and his son at bedside in which all questions have been answered. Case discussed with Dr. Isabel. Plan discussed with: Patient, Son (At the bedside) Dietary Evaluation Review Comments: 1) If GI is assessible consider Jevity 1.2 @ 60 ml/hr x24 hrs goal rate as tolerated 2) If pt remains NPO >7 days consider TPN to meet at least 75% of estimated needs 3) Advance pt diet when medically feasible to a Cardiac/Renal Specific K2,2gmNA,low phos,60g Pro diet modified per [employer] recommendations 4) Continue current plan of care Expected Outcomes/Goals: 1) Pt to receive adequate nutrition support 2) Pt diet to advance CC Plasma Assessment Blood Product Administration S: [id number] Date of Service: Jul 16, 2024 Billing Provider: HOLGER ISABEL MD Common Visit Codes: [id number] CARE 30-74 MIN THA CRISOSTOMO RESIDENT Jul 16, 2024 17:38 HOLGER ISABEL MD Jul 17, 2024 10:14
[2024-07-17] VITALS (58 sets, daily range): BP systolic 123–162; BP diastolic 52–74; PULSE 61–80; RESP 12–31; TEMP 98.3–99; O2SAT 90–100
[2024-07-17 05:31] LABS: Basophils # (auto) 0 10 ^3/uL (0-0.2); Eosinophils # (auto) 0.4 10 ^3/uL (0-0.8); Hemoglobin 7.6 g/dL (13.5-17.5); Lymphocytes # (auto) 0.9 10 ^3/uL (0.4-5.4); Monocytes # (auto) 0.4 10 ^3/uL (0-1.3); Platelet Count (auto) 164 10^3/uL (140-450); White Blood Cell 5.7 10^3/uL (4.4-10.8)
[2024-07-17 05:35] LABS: Basophils % (auto) 0.4 % (0.0-2.0); Eosinophils % (auto) 7.3 % (0.0-7.0); Hematocrit 23.6 % (41.0-53.0); Lymphocytes % (auto) 16.6 % (10.0-50.0); Mean Corpuscular Hemoglobin 32.5 pg (28.0-32.0); Mean Corpuscular Hgb Conc. 32.3 g/dL (32.0-36.0); Mean Corpuscular Volume 100.8 fL (80.0-100.0); Monocytes % (auto) 6.2 % (0.0-12.0); Neutrophils # (auto) 3.9 10 ^3/uL (1.6-8.6); Neutrophils % (auto) 69.5 % (37.0-80.0); Red Blood Cells 2.34 10^6/uL (4.5-5.90)
[2024-07-17 05:46] LABS: Anion Gap 6 (5-15); Carbon Dioxide 31 mmol/L (20-31); Chloride 104 mmol/L (98-107); Potassium 4.9 mmol/L (3.5-5.1); Sodium 141 mmol/L (136-145)
[2024-07-17 05:47] LABS: Calcium 9.4 mg/dL (8.7-10.4)
[2024-07-17 05:51] LABS: Glucose 91 mg/dL (74-106)
[2024-07-17 05:52] LABS: BUN/Creatinine Ratio 14.7 (10.0-20.0); Magnesium 2.1 mg/dL (1.6-2.6)
[2024-07-17 06:04] LABS: Red Cell Distribution Width 20.5 % (11.8-14.3)
[2024-07-17 06:12] LABS: Blood Urea Nitrogen 40 mg/dL (9-23)
[2024-07-17 07:27] LABS: % Iron Saturation 22.5 % (20-55)
[2024-07-17 09:25] LABS: Folate (Folic Acid) 5.15 ng/mL (>5.38)
--- NOTE | 2024-07-17 10:40 | DVHPN2 ---
Progress Note Date Seen: Jul 17, 2024 Has the PT tested + for MRSA If YES, has PT been informed?: Yes Medical Necessity Reason Pt with a Central, PICC or Fol: Yes The following are medically ne: Rubio Catheter Reason for rubio catheter: Strict I&O Subjective Review of Systems: HEENT:Abnormal, RESPIRATORY:Abnormal Objective vital signs Vital Sign Date Time Temp Pulse Resp B/P (MAP) Pulse Ox O2 Delivery O2 Flow Rate FiO2 07/17/24 10:26 144/63 07/17/24 10:25 78 07/17/24 08:00 19 98 T-piece 6 28 28 07/17/24 04:00 99.0 99.0 Total Intake and Output 07/16/24 07/16/24 07/17/24 15:00 23:00 07:00 Intake Total 1060 ml 1200 ml Output Total 450 ml 650 ml Balance 610 ml 550 ml medications Current Medications Medications Dose Ordered Sig/[place] Route Start Time Stop Time Status Last Admin Dose Admin Enoxaparin Sodium 40 mg DAILY SC 06/10/24 10:00 UNV Enoxaparin Sodium 40 mg DAILY SC 06/17/24 10:00 UNV Epoetin [place]-epbx 10,000 unit TUTHSA SC 06/17/24 12:00 Hold 06/28/24 08:25 10,000 UNIT Sodium Chloride 10 ml QSHIFT@10,22 IV 06/17/24 22:00 07/16/24 21:31 10 ML Acetaminophen 650 mg Q6HP PRN GT 06/20/24 11:30 07/15/24 20:50 650 MG Hydralazine HCl 10 mg Q4HP PRN IV 06/24/24 16:45 07/14/24 03:49 10 MG Omeprazole 20 mg DAILY GT 06/26/24 10:00 07/17/24 10:24 20 MG Albuterol 2.5 mg Q6HPRN PRN NEB 06/28/24 11:30 07/14/24 09:11 2.5 MG Lactulose 30 ml [id number] PRN PEG 07/01/24 10:15 Metoprolol Tartrate 50 mg BID PO 07/01/24 22:00 07/17/24 10:25 50 MG Enteral Nutritional Formula 1,000 ml 60ML/HR GT 07/02/24 11:00 07/16/24 14:42 1,000 ML Clonidine HCl 0.2 mg BID PO 07/03/24 22:00 07/17/24 10:25 0.2 MG Enoxaparin Sodium 30 mg DAILY SC 07/08/24 10:00 07/17/24 10:26 30 MG Hydralazine HCl 100 mg Q8HR PO 07/07/24 22:00 07/17/24 05:46 100 MG Heparin Sodium (Porcine) 4,000 units JACKY PRN XX 07/09/24 11:00 Amlodipine Besylate 10 mg DAILY PO 07/11/24 10:00 07/17/24 10:26 10 MG Fentanyl 25 mcg Q72H TD 07/12/24 13:00 07/15/24 15:34 25 MCG Acetylcysteine 200 mg Q6HR NEB 07/14/24 12:00 07/17/24 06:35 200 MG Albuterol 2.5 mg Q6HR NEB 07/14/24 12:00 07/17/24 06:34 2.5 MG Ipratropium [place] 0.5 mg Q6HR NEB 07/14/24 12:00 07/17/24 06:34 0.5 MG Examination: GENERAL:Normal, HEENT:Normal, LUNGS:Abnormal, ABDOMEN:Abnormal, SKIN:Abnormal laboratory and microbiology Laboratory Tests 07/17/24 04:49 Test 07/17/24 04:49 Range/Units Serum Glucose 91 74-106 mg/dL Microbiology Date/Time Source Procedure Growth Status 06/28/24 15:27 Blood Blood Culture - Final NO GROWTH AFTER 5 DAYS OF INCUBATION. Complete 06/25/24 08:20 Catheter Site Aerobic Culture - Final Methicillin Resistant S.aureus Acinetobacter baumannii MDRO Enterococcus faecalis Complete 06/11/24 16:06 Bronchial Washings Gram Stain - Final Complete 06/11/24 16:06 Respiratory Culture - Final Acinetobacter baumannii Pseudomonas aeruginosa Complete 05/30/24 11:45 Pleural Fluid Gram Stain - Final Complete 05/30/24 11:45 Pleural Fluid Body Fluid Culture - Final Complete 05/28/24 22:36 Urine - Catheterized Urine Culture - Final Enterobacter cloacae Escherichia coli Enterococcus faecalis - VRE Complete Problem List/Assessment/Plan Problem List/Assessment/Plan Acute kidney injury on ckd 4 - progressed to ckd 5? Acute respiratory failure advanced a chronic respiratory failure status post trach now trach to wall oxygen Septic shock resolved due to multidrug resistant organisms Peripheral artery disease Coronary artery disease Severe protein calorie malnutrition anemia due to ckd HD tentative sunday or sunday hospice candidate tube feeding, start calcium acetate in tube feeds epogen 3x a week Plan discussed with: Patient Dietary Evaluation Review Comments: 1) If GI is assessible consider Jevity 1.2 @ 60 ml/hr x24 hrs goal rate as tolerated 2) If pt remains NPO >7 days consider TPN to meet at least 75% of estimated needs 3) Advance pt diet when medically feasible to a Cardiac/Renal Specific K2,2gmNA,low phos,60g Pro diet modified per [employer] recommendations 4) Continue current plan of care Expected Outcomes/Goals: 1) Pt to receive adequate nutrition support 2) Pt diet to advance CC Plasma Assessment Blood Product Administration S: [id number] ANNA ROMERO MD Jul 17, 2024 10:40
[2024-07-17] MEDS: CALCIUM ACETATE 667 MG CAP PEG SCH (14:00)
--- NOTE | 2024-07-17 18:45 | DVHPNRES ---
Progress Note Date Seen: Jul 17, 2024 Resident Creating Document: THA CRISOSTOMO RESIDENT Has the PT tested + for MRSA If YES, has PT been informed?: Yes Medical Necessity Reason Pt with a Central, PICC or Fol: Yes The following are medically ne: Rubio Catheter Reason for rubio catheter: Strict I&O Subjective Review of Systems This is a 65-year-old male with past medical history of CHF, CKD, COPD, dyslipidemia, hypertension, CVA brought to the hospital with shortness of breaths and at the level of consciousness. Admitted and intubated on 05/28, extubated on 06/09 but reintubated on 06/10. Epigastric performed on 06/13, PEG tube placed on 06/15. 07/01 - Patient seen and examined at bedside. Overnight no events, patient made 150 cc of urine in the morning and 125 cc in the night. Multiple bowel movements 500 cc on 06/30, 250 cc on the night of 07/01 and 200 on the morning of 07/01. Lactulose changed to p.r.n.. Patient is intubated and mechanically ventilated. Patient is satting 97% on trach collar via 6 L oxygen supplementation for the past 24 hours. He is not on pressor support. On fentanyl 20 mcg. Increase metoprolol to 50 mg b.i.d. and started clonidine 0.1 mg b.i.d.. Started fentanyl patch 25 mcg. IV fentanyl will be discontinued after overlapping her 4-5 hours with fentanyl patch. 07/02 - overnight patient made 100 mL of urine. 50 mL of output was drain from colostomy bag. Otherwise no events. Patient seen and examined at bedside. He underwent dialysis this morning and 2.5 L were drained. Chest x-ray reviewed shows worsening left-sided infiltrate. Patient is satting 98% on 3 color with 6 L oxygen supplementation. 07/03 - overnight colostomy bag was leaking so it was changed. Patient had 50 mL urine output in the production supervisor off shift, 115 mL during the of the of 07/02. Colostomy bag was drained with 50 mL of contents. Patient is still hypotensive systolic ranging in 150s to 160s therefore clonidine increased to 0.2 mg b.i.d.. Creatinine trending down to 3.2. Tunnel catheter consent obtained. IR consulted. NPO starting morning. Final blood culture 06/28 shows no growth. IV antibiotics discontinued. 07/04 - overnight patient had 200 mL of colostomy output. Urine output 125 in the day of 07/03 and 150 in the production supervisor off shift. Tunneled catheter placed to the right upper chest. DC left IJ catheter once dialysis session completed. Undergoing dialysis session today. 07/07 - patient seen and examined in the bedside. Underwent dialysis today. Over the weekend bronchoscopy completed 07/05 showed left lower lobe atelectasis due to mucus plugging and right lower lobe mucous plugging. 07/08 - pt desatted to 70s in the morning. CXR shows air in the subcutaneous tiisues. CT chest w/o ordered, showed Pneumomediastinum and pneumopericardium. Bilateral pleural effusions, left slightly greater than right. Bilateral lower lobe opacities compatible with compressive atelectasis. o2 supp increased to 10L from 6, and fio2 increased to 100%. Pt underwent bronch,showed Left lower lobe atelectasis due to mucous plugging. Mucous plugging from L6-L10. Pt switched to ventilator and IV fent started. Facial swelling resolving. 07/09 - overnight, pt desatted which improved with suctioning. HD today, lsix 40mg IV once. 07/10 - patient seen and examined at the bedside. No overnight events. Patient is more responsive, moving upper extremities to command . 07/11 - overnight no acute events. Saturating 97 on 6 L oxygen supplementation 07/14 - overnight patient drops his saturation to 80s, improves after suctioning back to 90s. Patient has creamy white secretions. Hemodialysis tomorrow. Potassium 5.3, albuterol, dextrose and insulin given. Started acetylcysteine 200 mg nebulized q.6 hour. Changed suprapubic catheter. 07/15 - patient seen and examined at bedside. 1060cc urine overnight 07/16 - overnight patient had dialysis. Patient is alert and talking. 07/17 - no overnight events, patient seen and examined. Objective vital signs Vital Sign Date Time Temp Pulse Resp B/P (MAP) Pulse Ox O2 Delivery O2 Flow Rate FiO2 07/17/24 18:30 73 25 155/69 (97) 97 07/17/24 18:28 T-piece 6 28 Cool Aerosol 28 07/17/24 16:00 98.5 98.5 Total Intake and Output 07/16/24 07/16/24 07/17/24 15:00 23:00 07:00 Intake Total 1060 ml 1200 ml Output Total 450 ml 650 ml Balance 610 ml 550 ml medications Current Medications Medications Dose Ordered Sig/[place] Route Start Time Stop Time Status Last Admin Dose Admin Enoxaparin Sodium 40 mg DAILY SC 06/10/24 10:00 UNV Enoxaparin Sodium 40 mg DAILY SC 06/17/24 10:00 UNV Epoetin Morena-epbx 10,000 unit TUTHSA SC 06/17/24 12:00 Hold 06/28/24 08:25 10,000 UNIT Sodium Chloride 10 ml QSHIFT@ IV 06/17/24 22:00 07/17/24 10:00 10 ML Acetaminophen 650 mg Q6HP PRN GT 06/20/24 11:30 07/15/24 20:50 650 MG Hydralazine HCl 10 mg Q4HP PRN IV 06/24/24 16:45 07/14/24 03:49 10 MG Omeprazole 20 mg DAILY GT 06/26/24 10:00 07/17/24 10:24 20 MG Albuterol 2.5 mg Q6HPRN PRN NEB 06/28/24 11:30 07/14/24 09:11 2.5 MG Lactulose 30 ml [id number] PRN PEG 07/01/24 10:15 Metoprolol Tartrate 50 mg BID PO 07/01/24 22:00 07/17/24 10:25 50 MG Enteral Nutritional Formula 1,000 ml 60ML/HR GT 07/02/24 11:00 07/17/24 13:41 1,000 ML Clonidine HCl 0.2 mg BID PO 07/03/24 22:00 07/17/24 10:25 0.2 MG Enoxaparin Sodium 30 mg DAILY SC 07/08/24 10:00 07/17/24 10:26 30 MG Hydralazine HCl 100 mg Q8HR PO 07/07/24 22:00 07/17/24 14:00 100 MG Heparin Sodium (Porcine) 4,000 units JACKY PRN XX 07/09/24 11:00 Amlodipine Besylate 10 mg DAILY PO 07/11/24 10:00 07/17/24 10:26 10 MG Fentanyl 25 mcg Q72H TD 07/12/24 13:00 07/15/24 15:34 25 MCG Acetylcysteine 200 mg Q6HR NEB 07/14/24 12:00 07/17/24 18:27 200 MG Albuterol 2.5 mg Q6HR NEB 07/14/24 12:00 07/17/24 18:27 2.5 MG Ipratropium [place] 0.5 mg Q6HR NEB 07/14/24 12:00 07/17/24 18:27 0.5 MG Calcium Acetate 667 mg Q8HR PEG 07/17/24 14:00 07/17/24 14:00 667 MG Examination Patient lying in bed, in no acute distress. Patient is alert and following commands General: afebrile, palor, mucosae are moist. Resolving facial swelling. Cardiovascular: Regular S1 and S2. No murmurs, gallops or rubs. No JVD elevation. Resolving Bilateral pitting edema. Respiratory: Decreased but equal Bilateral air entry. Saturating 92% with 6 L supplementation via tracheostomy. Abdomen: Soft, nontender, nondistended, normoactive bowel sounds, no rebound tenderness, no organomegaly, no masses. Suprapubic catheter seen draining urine and colostomy bag seen draining 70 mL of orange mustard stool which is liquid in consistency. Peg tube in place. Genitourinary: Stage III sacral ulcer, skin non intact, draining pus and erythema noted. MSK/skin: Patient is moving upper extremities to commands. Skin is dry and warm Neurological: Pupils are isocoric and reactive. laboratory and microbiology Laboratory Tests 07/17/24 04:49 Test 07/17/24 04:49 Range/Units Serum Glucose 91 74-106 mg/dL Microbiology Date/Time Source Procedure Growth Status 06/28/24 15:27 Blood Blood Culture - Final NO GROWTH AFTER 5 DAYS OF INCUBATION. Complete 06/25/24 08:20 Catheter Site Aerobic Culture - Final Methicillin Resistant S.aureus Acinetobacter baumannii MDRO Enterococcus faecalis Complete 06/11/24 16:06 Bronchial Washings Gram Stain - Final Complete 06/11/24 16:06 Respiratory Culture - Final Acinetobacter baumannii Pseudomonas aeruginosa Complete 05/30/24 11:45 Pleural Fluid Gram Stain - Final Complete 05/30/24 11:45 Pleural Fluid Body Fluid Culture - Final Complete 05/28/24 22:36 Urine - Catheterized Urine Culture - Final Enterobacter cloacae Escherichia coli Enterococcus faecalis - VRE Complete Labs and/or images reviewed: Labs reviewed by me, Image(s) reviewed by me Problem List/Assessment/Plan Problem List/Assessment/Plan NEURO: Acute metabolic encephalopathy likely due to sepsis History of seizure History of stroke - 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 Started clonidine 0.1 mg twice daily 07/01. Clonidine increased to 0.2 mg b.i.d. 07/03 Final blood culture 06/28 shows no growth PULMONARY: Acute Hypoxic Respiratory Failure likely due to pneumonia Septic shock likely due to pneumonia, improved Pneumonia likely due to MRSA and Enterobacter cloacae Pneumomediastinum and pneumopericardium - Patient is sedated and mechanically ventilated with PEEP of 30% - CT scan shows [id number] left pleural effusion - MRSA nares screening, COVID-19 and flu are negative - Bronchoscopy performed on 06/11, there was some thin mucus secretion on bilateral side, bronchial lavage of right lower lobe and left lower lobe was performed, and the culture results shows Pseudomonas aeruginosa and Enterobacter baumanni, MDR; ID has been consulted - Sputum culture from bronchoalveolar lavage from 05/24/24 shows MRSA, Enterobacter cloacae - Blood culture from the 06/02/24 shows Staphylococcus epidermidis , Staph hominis - Repeat culture from 06/09/2024 shows no growth - Stopped IV linezolid, given for 11 days, discontinued meropenem, started on 06/08 and given for 12 days - started acetylcysteine nebulized 07/14 - Breathing treatment q.6 hours p.r.n. -started fentanyl patch 25 mcg 07/01 - bronchoscopy completed 07/05 showed left lower lobe atelectasis due to mucus plugging and right lower lobe mucous plugging. - 07/08 - pt desatted to 70s in the morning. CXR shows air in the subcutaneous tissues. CT chest w/o ordered, showed Pneumomediastinum and pneumopericardium. Bilateral pleural effusions, left slightly greater than right. Bilateral lower lobe opacities compatible with compressive atelectasis. o2 supp increased to 10L from 6, and fio2 increased to 100%. Pt underwent bronch,showed Left lower lobe atelectasis due to mucous plugging. Mucous plugging from L6-L10. GI - GI ppx: omeprazole 20mg daily via OG tube - Hepatitis-C virus antibody positive - Repeat stool occult blood test is negative - CT abdominopelvic without contrast shows no evidence of intra-abdominal hemorrhage - Tracheostomy is performed on 06/13 - PEG tube is placed on 06/15 - Bowel regimen: Lactulose 30 mL b.i.d. change to p.r.n. 07/01 : FROYLAN, possible VMN on ESRD requiring hemodialysis - Nephrology consulted, epoetin morena 14356 units SC post dialysis. Radiology for tunneled hemodialysis catheter when the blood culture negative for 72 hours - Stopped Bumix 1mg BID - creatinine increased to 3.91 from 3.64 - Homer catheter placed on left internal jugular, on 06/26, removed on 07/04 - tunneled catheter placed to the right upper chest 07/04 - hemodialysis completed 07/02 and 07/04 and 07/07, 07/09, 07/12, 07/15 UTI, urinalysis shows UTI picture - Urine culture from 05/28/2024 shows Enterobacter, E coli, Enterococcus faecalis MUSCULOSKELETAL Status post right lower limb, above knee amputation likely due to PAD Decubitus ulcer - There are multiple stage 3-4 sacral ulcers draining pus - position changing every 2 hours and dressing -started fentanyl patch 25 mcg 07/01 HEME Severe anemia, transfused 4 pack of red blood cells Anemia of chronic disease Thrombocytopenia Macrocytic anemia - Retacrit T//SAT - B12 normal, folate low normal ID: - Sputum culture from bronchoalveolar lavage from 05/24/24 shows MRSA, Enterobacter cloacae - Blood culture from the 06/02/24 shows Staphylococcus epidermidis , Staph hominis - Repeat culture from 06/09/2024 shows no growth - culture results from BAL from 06/11 shows Pseudomonas aeruginosa and Enterobacter baumanni, MDR - discontinued IV linezolid starting 06/28 and meropenem starting 06/25, discontinued in 07/03 - previously received vancomycin - catheter site culture 06/25 completed shows MRSA, Acinetobacter baumannii MDRO, Enterococcus faecalis. SKIN Possible keloid - There is a growth on the left shoulder, per son, lesion has been present for several years - Follow up on outpatient basis Metabolic: Hypernatremia, improved Hypokalemia, discontinued potassium supplementation given ESRD Hyperkalemia, albuterol, insulin d5w administered Mild hyponatremia, monitoring Hypoglycemic episodes, improved Hypomagnesemia, supplemented LINES/DRAINS/ACCESS: ETT, intubated on 05/28/2024 and tracheostomy performed on 06/11, PEG tube placed on 06/15 IV access Left internal jugular CVC, placed on 06/26 and removed on 07/04 Right IJ hemodialysis catheter placed 07/04 Suprapubic catheter, changed on 07/14/2024 Dripps: Fentanyl patch 25 mg Off pressor DIET: Jevity 1.2 john 60 mL/hour DVT prophylaxis Lovenox 30mg SC daily Disposition: social work specialist consulted for transfer to the [facility]. Will be transfered to [place] in [facility] or [facility]. critical care time including review of charts, discussing case with patient's nurse, and son excluding procedures is 42 mins CODE STATUS: Full code Plan discussed with patient and his son at bedside in which all questions have been answered. Case discussed with Dr. Isabel. Plan discussed with: Patient My Orders My Orders Orders - THA CRISOSTOMO Procedure Category Date Status Time Respiratory Misc. RT 07/17/24 Transmitted Order 10:01 Dietary Evaluation Review Comments: 1) If GI is assessible consider Jevity 1.2 @ 60 ml/hr x24 hrs goal rate as tolerated 2) If pt remains NPO >7 days consider TPN to meet at least 75% of estimated needs 3) Advance pt diet when medically feasible to a Cardiac/Renal Specific K2,2gmNA,low phos,60g Pro diet modified per RABBLER recommendations 4) Continue current plan of care Expected Outcomes/Goals: 1) Pt to receive adequate nutrition support 2) Pt diet to advance CC Plasma Assessment Blood Product Administration S: [id number] Date of Service: Jul 17, 2024 Billing Provider: HOLGER ISABEL MD Common Visit Codes: [id number] CARE 30-74 MIN THA CRISOSTOMO Jul 17, 2024 18:45 HOLGER ISABEL MD Jul 20, 2024 11:11
[2024-07-18] VITALS (46 sets, daily range): BP systolic 118–166; BP diastolic 60–85; PULSE 68–107; RESP 15–36; TEMP 98.4–99.6; O2SAT 91–100
[2024-07-18 06:12] LABS: Basophils # (auto) 0 10 ^3/uL (0-0.2); Basophils % (auto) 0.6 % (0.0-2.0); Eosinophils # (auto) 0.4 10 ^3/uL (0-0.8); Hemoglobin 7.7 g/dL (13.5-17.5); Lymphocytes # (auto) 0.9 10 ^3/uL (0.4-5.4); Monocytes # (auto) 0.4 10 ^3/uL (0-1.3); Neutrophils # (auto) 3.6 10 ^3/uL (1.6-8.6); Red Blood Cells 2.32 10^6/uL (4.5-5.90); White Blood Cell 5.4 10^3/uL (4.4-10.8)
[2024-07-18 06:14] LABS: Eosinophils % (auto) 6.8 % (0.0-7.0); Hematocrit 22.9 % (41.0-53.0); Lymphocytes % (auto) 17.5 % (10.0-50.0); Mean Corpuscular Hemoglobin 33.3 pg (28.0-32.0); Mean Corpuscular Hgb Conc. 33.6 g/dL (32.0-36.0); Monocytes % (auto) 7.7 % (0.0-12.0); Neutrophils % (auto) 67.4 % (37.0-80.0); Platelet Count (auto) 170 10^3/uL (140-450); Red Cell Distribution Width 19.8 % (11.8-14.3)
[2024-07-18 06:36] LABS: Chloride 106 mmol/L (98-107); Sodium 142 mmol/L (136-145)
[2024-07-18 06:37] LABS: Anion Gap 6 (5-15); Calcium 9.6 mg/dL (8.7-10.4); Carbon Dioxide 30 mmol/L (20-31)
[2024-07-18 06:42] LABS: BUN/Creatinine Ratio 17.4 (10.0-20.0); Glucose 98 mg/dL (74-106)
[2024-07-18 06:43] LABS: Magnesium 2.2 mg/dL (1.6-2.6)
[2024-07-18 06:47] LABS: Potassium 5.7 mmol/L (3.5-5.1)
[2024-07-18 06:49] LABS: Blood Urea Nitrogen 56 mg/dL (9-23)
[2024-07-18] MEDS: SODIUM CHL 0.9% 1000 ML BAG XX ONE (07:00)
[2024-07-18] MEDS: ALBUTEROL SULF 2.5 MG/0.5ML(0.5%) NEB SOLN NEB ONE (08:28)
--- NOTE | 2024-07-18 11:22 | DVHPN2 ---
Progress Note Date Seen: Jul 18, 2024 Has the PT tested + for MRSA If YES, has PT been informed?: Yes Medical Necessity Reason Pt with a Central, PICC or Fol: Yes The following are medically ne: Rubio Catheter Reason for rubio catheter: Strict I&O Subjective Review of Systems: HEENT:Abnormal, CVS:Abnormal, RESPIRATORY:Abnormal, GI:Abnormal Objective vital signs Vital Sign Date Time Temp Pulse Resp B/P (MAP) Pulse Ox O2 Delivery O2 Flow Rate FiO2 07/18/24 08:38 82 19 97 07/18/24 08:30 98.7 157/75 (102) 98.7 07/18/24 08:28 T-piece 6.0 07/18/24 08:28 28 28 Total Intake and Output 07/17/24 07/17/24 07/18/24 15:00 23:00 07:00 Intake Total 780 ml Output Total 425 ml 110 ml Balance -425 ml 670 ml medications Current Medications Medications Dose Ordered Sig/[place] Route Start Time Stop Time Status Last Admin Dose Admin Enoxaparin Sodium 40 mg DAILY SC 06/10/24 10:00 UNV Enoxaparin Sodium 40 mg DAILY SC 06/17/24 10:00 UNV Epoetin Calin-epbx 10,000 unit TUTHSA SC 06/17/24 12:00 Hold 06/28/24 08:25 10,000 UNIT Acetaminophen 650 mg Q6HP PRN GT 06/20/24 11:30 07/15/24 20:50 650 MG Hydralazine HCl 10 mg Q4HP PRN IV 06/24/24 16:45 07/14/24 03:49 10 MG Omeprazole 20 mg DAILY GT 06/26/24 10:00 07/17/24 10:24 20 MG Albuterol 2.5 mg Q6HPRN PRN NEB 06/28/24 11:30 07/14/24 09:11 2.5 MG Lactulose 30 ml [id number] PRN PEG 07/01/24 10:15 Metoprolol Tartrate 50 mg BID PO 07/01/24 22:00 07/17/24 21:08 50 MG Enteral Nutritional Formula 1,000 ml 60ML/HR GT 07/02/24 11:00 07/17/24 13:41 1,000 ML Clonidine HCl 0.2 mg BID PO 07/03/24 22:00 07/17/24 21:09 0.2 MG Enoxaparin Sodium 30 mg DAILY SC 07/08/24 10:00 07/17/24 10:26 30 MG Hydralazine HCl 100 mg Q8HR PO 07/07/24 22:00 07/18/24 05:00 100 MG Heparin Sodium (Porcine) 4,000 units JACKY PRN XX 07/09/24 11:00 Amlodipine Besylate 10 mg DAILY PO 07/11/24 10:00 07/17/24 10:26 10 MG Fentanyl 25 mcg Q72H TD 07/12/24 13:00 07/15/24 15:34 25 MCG Acetylcysteine 200 mg Q6HR NEB 07/14/24 12:00 07/18/24 06:31 200 MG Albuterol 2.5 mg Q6HR NEB 07/14/24 12:00 07/18/24 06:32 2.5 MG Ipratropium Bassett 0.5 mg Q6HR NEB 07/14/24 12:00 07/18/24 06:32 0.5 MG Calcium Acetate 667 mg Q8HR PEG 07/17/24 14:00 07/18/24 05:00 667 MG Examination: GENERAL:Abnormal, CVS:Abnormal, ABDOMEN:Abnormal, SKIN:Abnormal laboratory and microbiology Laboratory Tests 07/18/24 04:42 Test 07/18/24 04:42 Range/Units Serum Glucose 98 74-106 mg/dL Microbiology Date/Time Source Procedure Growth Status 06/28/24 15:27 Blood Blood Culture - Final NO GROWTH AFTER 5 DAYS OF INCUBATION. Complete 06/25/24 08:20 Catheter Site Aerobic Culture - Final Methicillin Resistant S.aureus Acinetobacter baumannii MDRO Enterococcus faecalis Complete 06/11/24 16:06 Bronchial Washings Gram Stain - Final Complete 06/11/24 16:06 Respiratory Culture - Final Acinetobacter baumannii Pseudomonas aeruginosa Complete 05/30/24 11:45 Pleural Fluid Gram Stain - Final Complete 05/30/24 11:45 Pleural Fluid Body Fluid Culture - Final Complete 05/28/24 22:36 Urine - Catheterized Urine Culture - Final Enterobacter cloacae Escherichia coli Enterococcus faecalis - VRE Complete Problem List/Assessment/Plan Problem List/Assessment/Plan Acute kidney injury on ckd 4 - progressed to ckd 5?/ ESRD Acute respiratory failure advanced a chronic respiratory failure status post trach now trach to wall oxygen Septic shock resolved due to multidrug resistant organisms Peripheral artery disease Coronary artery disease Severe protein calorie malnutrition anemia due to ckd hyperkalemia HD tentative today hospice candidate tube feeding, start calcium acetate in tube feeds change feeds to renal restricted epogen 3x a week Plan discussed with: Patient My Orders My Orders Orders - ANNA ROMERO MD Procedure Category Date Status Time Dialysis Nursing SUZAN 07/18/24 In Process Message 07:00 Document Fluid Input SUZAN 07/18/24 In Process And Outpu 07:00 Hemodialysis Orders ORDERS 07/18/24 Transmitted 07:54 Dietary Evaluation Review Comments: 1) If GI is assessible consider Jevity 1.2 @ 60 ml/hr x24 hrs goal rate as tolerated 2) If pt remains NPO >7 days consider TPN to meet at least 75% of estimated needs 3) Advance pt diet when medically feasible to a Cardiac/Renal Specific K2,2gmNA,low phos,60g Pro diet modified per APPLICATIONS ANALYST recommendations 4) Continue current plan of care Expected Outcomes/Goals: 1) Pt to receive adequate nutrition support 2) Pt diet to advance CC Plasma Assessment Blood Product Administration S: [id number] ANNA ROMERO MD Jul 18, 2024 11:22
--- NOTE | 2024-07-18 15:18 | DVHPNRES ---
Progress Note Date Seen: Jul 18, 2024 Resident Creating Document: THA CRISOSTOMO RESIDENT Has the PT tested + for MRSA If YES, has PT been informed?: Yes Medical Necessity Reason Pt with a Central, PICC or Fol: Yes The following are medically ne: Rubio Catheter Reason for rubio catheter: Strict I&O Subjective Review of Systems This is a 65-year-old male with past medical history of CHF, CKD, COPD, dyslipidemia, hypertension, CVA brought to the hospital with shortness of breaths and at the level of consciousness. Admitted and intubated on 05/28, extubated on 06/09 but reintubated on 06/10. Epigastric performed on 06/13, PEG tube placed on 06/15. 07/01 - Patient seen and examined at bedside. Overnight no events, patient made 150 cc of urine in the morning and 125 cc in the night. Multiple bowel movements 500 cc on 06/30, 250 cc on the night of 07/01 and 200 on the morning of 07/01. Lactulose changed to p.r.n.. Patient is intubated and mechanically ventilated. Patient is satting 97% on trach collar via 6 L oxygen supplementation for the past 24 hours. He is not on pressor support. On fentanyl 20 mcg. Increase metoprolol to 50 mg b.i.d. and started clonidine 0.1 mg b.i.d.. Started fentanyl patch 25 mcg. IV fentanyl will be discontinued after overlapping her 4-5 hours with fentanyl patch. 07/02 - overnight patient made 100 mL of urine. 50 mL of output was drain from colostomy bag. Otherwise no events. Patient seen and examined at bedside. He underwent dialysis this morning and 2.5 L were drained. Chest x-ray reviewed shows worsening left-sided infiltrate. Patient is satting 98% on 3 color with 6 L oxygen supplementation. 07/03 - overnight colostomy bag was leaking so it was changed. Patient had 50 mL urine output in the side puller, 115 mL during the of the of 07/02. Colostomy bag was drained with 50 mL of contents. Patient is still hypotensive systolic ranging in 150s to 160s therefore clonidine increased to 0.2 mg b.i.d.. Creatinine trending down to 3.2. Tunnel catheter consent obtained. IR consulted. NPO starting morning. Final blood culture 06/28 shows no growth. IV antibiotics discontinued. 07/04 - overnight patient had 200 mL of colostomy output. Urine output 125 in the day of 07/03 and 150 in the side puller. Tunneled catheter placed to the right upper chest. DC left IJ catheter once dialysis session completed. Undergoing dialysis session today. 07/07 - patient seen and examined in the bedside. Underwent dialysis today. Over the weekend bronchoscopy completed 07/05 showed left lower lobe atelectasis due to mucus plugging and right lower lobe mucous plugging. 07/08 - pt desatted to 70s in the morning. CXR shows air in the subcutaneous tiisues. CT chest w/o ordered, showed Pneumomediastinum and pneumopericardium. Bilateral pleural effusions, left slightly greater than right. Bilateral lower lobe opacities compatible with compressive atelectasis. o2 supp increased to 10L from 6, and fio2 increased to 100%. Pt underwent bronch,showed Left lower lobe atelectasis due to mucous plugging. Mucous plugging from L6-L10. Pt switched to ventilator and IV fent started. Facial swelling resolving. 07/09 - overnight, pt desatted which improved with suctioning. HD today, lsix 40mg IV once. 07/10 - patient seen and examined at the bedside. No overnight events. Patient is more responsive, moving upper extremities to command . 07/11 - overnight no acute events. Saturating 97 on 6 L oxygen supplementation 07/14 - overnight patient drops his saturation to 80s, improves after suctioning back to 90s. Patient has creamy white secretions. Hemodialysis tomorrow. Potassium 5.3, albuterol, dextrose and insulin given. Started acetylcysteine 200 mg nebulized q.6 hour. Changed suprapubic catheter. 07/15 - patient seen and examined at bedside. 1060cc urine overnight 07/16 - overnight patient had dialysis. Patient is alert and talking. 07/17 - no overnight events, patient seen and examined. 07/18 - patient seen and examined. Respiratory rate increased to 30 after nebulized treatment. Chest PT and Mucomyst ordered. Objective vital signs Vital Sign Date Time Temp Pulse Resp B/P (MAP) Pulse Ox O2 Delivery O2 Flow Rate FiO2 07/18/24 14:00 103 07/18/24 14:00 24 91 T-piece 6 28 28 07/18/24 12:00 98.9 159/72 (101) 98.9 Total Intake and Output 07/17/24 07/17/24 07/18/24 15:00 23:00 07:00 Intake Total 780 ml Output Total 425 ml 110 ml Balance -425 ml 670 ml medications Current Medications Medications Dose Ordered Sig/[place] Route Start Time Stop Time Status Last Admin Dose Admin Enoxaparin Sodium 40 mg DAILY SC 06/10/24 10:00 UNV Enoxaparin Sodium 40 mg DAILY SC 06/17/24 10:00 UNV Epoetin Morena-epbx 10,000 unit TUTHSA SC 06/17/24 12:00 Hold 06/28/24 08:25 10,000 UNIT Acetaminophen 650 mg Q6HP PRN GT 06/20/24 11:30 07/15/24 20:50 650 MG Hydralazine HCl 10 mg Q4HP PRN IV 06/24/24 16:45 07/14/24 03:49 10 MG Omeprazole 20 mg DAILY GT 06/26/24 10:00 07/17/24 10:24 20 MG Albuterol 2.5 mg Q6HPRN PRN NEB 06/28/24 11:30 07/14/24 09:11 2.5 MG Lactulose 30 ml [id number] PRN PEG 07/01/24 10:15 Metoprolol Tartrate 50 mg BID PO 07/01/24 22:00 07/17/24 21:08 50 MG Enteral Nutritional Formula 1,000 ml 60ML/HR GT 07/02/24 11:00 07/17/24 13:41 1,000 ML Clonidine HCl 0.2 mg BID PO 07/03/24 22:00 07/17/24 21:09 0.2 MG Enoxaparin Sodium 30 mg DAILY SC 07/08/24 10:00 07/17/24 10:26 30 MG Hydralazine HCl 100 mg Q8HR PO 07/07/24 22:00 07/18/24 05:00 100 MG Heparin Sodium (Porcine) 4,000 units JACKY PRN XX 07/09/24 11:00 Amlodipine Besylate 10 mg DAILY PO 07/11/24 10:00 07/17/24 10:26 10 MG Fentanyl 25 mcg Q72H TD 07/12/24 13:00 07/18/24 15:08 25 MCG Acetylcysteine 200 mg Q6HR NEB 07/14/24 12:00 07/18/24 11:59 200 MG Albuterol 2.5 mg Q6HR NEB 07/14/24 12:00 07/18/24 11:59 2.5 MG Ipratropium [place] 0.5 mg Q6HR NEB 07/14/24 12:00 07/18/24 11:59 0.5 MG Calcium Acetate 667 mg Q8HR PEG 07/17/24 14:00 07/18/24 05:00 667 MG Examination Patient lying in bed, in no acute distress. Patient is alert and following commands General: afebrile, palor, mucosae are moist. Resolving facial swelling. Cardiovascular: Regular S1 and S2. No murmurs, gallops or rubs. No JVD elevation. Resolving Bilateral pitting edema. Respiratory: Decreased but equal Bilateral air entry. Saturating 92% with 4 L supplementation via tracheostomy. Abdomen: Soft, nontender, nondistended, normoactive bowel sounds, no rebound tenderness, no organomegaly, no masses. Suprapubic catheter seen draining urine and colostomy bag seen draining 70 mL of orange mustard stool which is liquid in consistency. Peg tube in place. Genitourinary: Stage III sacral ulcer, skin non intact, draining pus and erythema noted. MSK/skin: Patient is moving upper extremities to commands. Skin is dry and warm Neurological: Pupils are isocoric and reactive. laboratory and microbiology Laboratory Tests 07/18/24 04:42 Test 07/18/24 04:42 Range/Units Serum Glucose 98 74-106 mg/dL Microbiology Date/Time Source Procedure Growth Status 06/28/24 15:27 Blood Blood Culture - Final NO GROWTH AFTER 5 DAYS OF INCUBATION. Complete 06/25/24 08:20 Catheter Site Aerobic Culture - Final Methicillin Resistant S.aureus Acinetobacter baumannii MDRO Enterococcus faecalis Complete 06/11/24 16:06 Bronchial Washings Gram Stain - Final Complete 06/11/24 16:06 Respiratory Culture - Final Acinetobacter baumannii Pseudomonas aeruginosa Complete 05/30/24 11:45 Pleural Fluid Gram Stain - Final Complete 05/30/24 11:45 Pleural Fluid Body Fluid Culture - Final Complete 05/28/24 22:36 Urine - Catheterized Urine Culture - Final Enterobacter cloacae Escherichia coli Enterococcus faecalis - VRE Complete Labs and/or images reviewed: Labs reviewed by me, Image(s) reviewed by me Problem List/Assessment/Plan Problem List/Assessment/Plan NEURO: Acute metabolic encephalopathy likely due to sepsis History of seizure History of stroke - 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 Started clonidine 0.1 mg twice daily 07/01. Clonidine increased to 0.2 mg b.i.d. 07/03 Final blood culture 06/28 shows no growth PULMONARY: Acute Hypoxic Respiratory Failure likely due to pneumonia Septic shock likely due to pneumonia, improved Pneumonia likely due to MRSA and Enterobacter cloacae Pneumomediastinum and pneumopericardium - Patient is sedated and mechanically ventilated with PEEP of 30% - CT scan shows [id number] left pleural effusion - MRSA nares screening, COVID-19 and flu are negative - Bronchoscopy performed on 06/11, there was some thin mucus secretion on bilateral side, bronchial lavage of right lower lobe and left lower lobe was performed, and the culture results shows Pseudomonas aeruginosa and Enterobacter baumanni, MDR; ID has been consulted - Sputum culture from bronchoalveolar lavage from 05/24/24 shows MRSA, Enterobacter cloacae - Blood culture from the 06/02/24 shows Staphylococcus epidermidis , Staph hominis - Repeat culture from 06/09/2024 shows no growth - Stopped IV linezolid, given for 11 days, discontinued meropenem, started on 06/08 and given for 12 days - started acetylcysteine nebulized 07/14 and chest physical therapy - Breathing treatment q.6 hours p.r.n. -started fentanyl patch 25 mcg 07/01 - bronchoscopy completed 07/05 showed left lower lobe atelectasis due to mucus plugging and right lower lobe mucous plugging. - 07/08 - pt desatted to 70s in the morning. CXR shows air in the subcutaneous tissues. CT chest w/o ordered, showed Pneumomediastinum and pneumopericardium. Bilateral pleural effusions, left slightly greater than right. Bilateral lower lobe opacities compatible with compressive atelectasis. o2 supp increased to 10L from 6, and fio2 increased to 100%. Pt underwent bronch,showed Left lower lobe atelectasis due to mucous plugging. Mucous plugging from L6-L10. GI - GI ppx: omeprazole 20mg daily via OG tube - Hepatitis-C virus antibody positive - Repeat stool occult blood test is negative - CT abdominopelvic without contrast shows no evidence of intra-abdominal hemorrhage - Tracheostomy is performed on 06/13 - PEG tube is placed on 06/15 - Bowel regimen: Lactulose 30 mL b.i.d. change to p.r.n. 07/01 : FROYLAN, possible VMN on ESRD requiring hemodialysis - Nephrology consulted, epoetin morena 37971 units SC post dialysis. Radiology for tunneled hemodialysis catheter when the blood culture negative for 72 hours - Stopped Bumix 1mg BID - creatinine increased to 3.91 from 3.64 - Homer catheter placed on left internal jugular, on 06/26, removed on 07/04 - tunneled catheter placed to the right upper chest 07/04 - hemodialysis completed 07/02 and 07/04 and 07/07, 07/09, 07/12, 07/15, 07/18 UTI, urinalysis shows UTI picture - Urine culture from 05/28/2024 shows Enterobacter, E coli, Enterococcus faecalis MUSCULOSKELETAL Status post right lower limb, above knee amputation likely due to PAD Decubitus ulcer - There are multiple stage 3-4 sacral ulcers draining pus - position changing every 2 hours and dressing -started fentanyl patch 25 mcg 07/01 ENDOCRINE SECONDARY HYPERPARATHYROIDISM Nephrology recommended starting calcium acetate in tube feeding, 1334mg calcium associated with each meal. HEME Severe anemia, transfused 4 pack of red blood cells Anemia of chronic disease Thrombocytopenia Macrocytic anemia - Retacrit T/TH/SAT - B12 normal, folate low normal ID: - Sputum culture from bronchoalveolar lavage from 05/24/24 shows MRSA, Enterobacter cloacae - Blood culture from the 06/02/24 shows Staphylococcus epidermidis , Staph hominis - Repeat culture from 06/09/2024 shows no growth - culture results from BAL from 06/11 shows Pseudomonas aeruginosa and Enterobacter baumanni, MDR - discontinued IV linezolid starting 06/28 and meropenem starting 06/25, discontinued in 07/03 - previously received vancomycin - catheter site culture 06/25 completed shows MRSA, Acinetobacter baumannii MDRO, Enterococcus faecalis. SKIN Possible keloid - There is a growth on the left shoulder, per son, lesion has been present for several years - Follow up on outpatient basis Metabolic: Hypernatremia, improved Hypokalemia, discontinued potassium supplementation given ESRD Hyperkalemia, albuterol, insulin d5w administered Mild hyponatremia, monitoring Hypoglycemic episodes, improved Hypomagnesemia, supplemented LINES/DRAINS/ACCESS: ETT, intubated on 05/28/2024 and tracheostomy performed on 06/11, PEG tube placed on 06/15 IV access Left internal jugular CVC, placed on 06/26 and removed on 07/04 Right IJ hemodialysis catheter placed 07/04 Suprapubic catheter, changed on 07/14/2024 Dripps: Fentanyl patch 25 mg Off pressor DIET: Jevity 1.2 john 60 mL/hour DVT prophylaxis Lovenox 30mg SC daily Disposition: social economist consulted for transfer to the [facility]. Will be transfered to [place] in [facility] or [facility]. critical care time including review of charts, discussing case with patient's nurse, and son excluding procedures is 42 mins CODE STATUS: Full code Plan discussed with patient and his son at bedside in which all questions have been answered. Case discussed with Dr. Florez. Plan discussed with: Patient My Orders My Orders Orders - THA CRISOSTOMO Procedure Category Date Status Time Urine Bacterial SUZANNA 07/17/24 Logged Culture 18:46 Urinalysis LAB 07/17/24 Logged 18:46 Dietary Evaluation Review Comments: 1) If GI is assessible consider Jevity 1.2 @ 60 ml/hr x24 hrs goal rate as tolerated 2) If pt remains NPO >7 days consider TPN to meet at least 75% of estimated needs 3) Advance pt diet when medically feasible to a Cardiac/Renal Specific K2,2gmNA,low phos,60g Pro diet modified per FIELD MARKETER recommendations 4) Continue current plan of care Expected Outcomes/Goals: 1) Pt to receive adequate nutrition support 2) Pt diet to advance CC Plasma Assessment Blood Product Administration S: [id number] Date of Service: Jul 18, 2024 Billing Provider: CARLENE FLOREZ MD Common Visit Codes: [id number] CARE 30-74 MIN THA CRISOSTOMO Jul 18, 2024 15:18 CARLENE FLOREZ MD Jul 20, 2024 21:31
[2024-07-18] MEDS: CALCIUM ACETATE 667 MG CAP GT SCH (17:07)
[2024-07-18 23:45] LABS: Urine Bacteria FEW /hpf (None Seen); Urine Blood Negative /uL (Negative); Urine Clarity Turbid (Clear); Urine Color Yellow (Yellow); Urine Mucus FEW (None Seen); Urine Protein, UAD 3+ (Negative); Urine Specific Gravity 1.016 (1.001-1.035); Urine Squamous Epithelial Cell MOD /hpf (<5); Urine Urobilinogen Normal (Negative); Urine WBC 38 /hpf (0 - 3); Urine pH 8.5 (5.0-9.0)
[2024-07-19] VITALS (40 sets, daily range): BP systolic 129–171; BP diastolic 64–85; PULSE 73–100; RESP 9–30; TEMP 97.8–99.1; O2SAT 88–99
[2024-07-19 05:37] LABS: Basophils # (auto) 0 10 ^3/uL (0-0.2); Basophils % (auto) 0.5 % (0.0-2.0); Eosinophils # (auto) 0.2 10 ^3/uL (0-0.8); Eosinophils % (auto) 4.2 % (0.0-7.0); Hematocrit 26.7 % (41.0-53.0); Hemoglobin 8.7 g/dL (13.5-17.5); Lymphocytes # (auto) 0.9 10 ^3/uL (0.4-5.4); Lymphocytes % (auto) 15.9 % (10.0-50.0); Mean Corpuscular Hemoglobin 32.2 pg (28.0-32.0); Mean Corpuscular Hgb Conc. 32.4 g/dL (32.0-36.0); Mean Corpuscular Volume 99.2 fL (80.0-100.0); Monocytes # (auto) 0.6 10 ^3/uL (0-1.3); Monocytes % (auto) 11.8 % (0.0-12.0); Neutrophils # (auto) 3.6 10 ^3/uL (1.6-8.6); Neutrophils % (auto) 67.6 % (37.0-80.0); Nucleated Red Blood Cells % 0.1 %; Platelet Count (auto) 172 10^3/uL (140-450); Red Blood Cells 2.69 10^6/uL (4.5-5.90); Red Cell Distribution Width 19.9 % (11.8-14.3); White Blood Cell 5.4 10^3/uL (4.4-10.8)
[2024-07-19 05:51] LABS: Anion Gap 5 (5-15); Chloride 104 mmol/L (98-107); Sodium 141 mmol/L (136-145)
[2024-07-19 05:52] LABS: Calcium 9.9 mg/dL (8.7-10.4)
[2024-07-19 05:57] LABS: BUN/Creatinine Ratio 16.8 (10.0-20.0); Glucose 95 mg/dL (74-106); Magnesium 2.1 mg/dL (1.6-2.6)
[2024-07-19 06:01] LABS: Blood Urea Nitrogen 45 mg/dL (9-23); Carbon Dioxide 32 mmol/L (20-31); Phosphorus 5.4 mg/dL (2.4-5.1); Potassium 5.5 mmol/L (3.5-5.1)
[2024-07-19] MEDS: SODIUM ZIRCONIUM CYCL 10 GM PAK PO ONE ×3 (06:34→11:30)
[2024-07-19] MEDS: InsuLIN REG 1unit/0.01ml Soln (100units/ml) IV ONE (07:48)
[2024-07-19] MEDS: DEXTROSE (50%) 50ML SYRG IV ONE (07:49)
[2024-07-19] MEDS: BUMETANIDE 1 MG TAB PO SCH (15:00)
[2024-07-19] MEDS: SODIUM ZIRCONIUM CYCL 10 GM PAK GT SCH (15:00)
--- NOTE | 2024-07-19 15:00 | DVHPN2 ---
Assessment/Plan Assessment/Plan ICU progress note Subjective This is a 65-year-old male with past medical history of CHF, CKD, COPD, dyslipidemia, hypertension, CVA brought to the hospital with shortness of breaths and at the level of consciousness. Admitted and intubated on 05/28, extubated on 06/09 but reintubated on 06/10. Epigastric performed on 06/13, PEG tube placed on 06/15. Patient was seen by me today during rounds, on T piece 6LPM, status quo Objective Physical exam trahced on t piece alert and conversant gag + cough + PERRLA coarse breath sounds s1 s2 RRR abdomen soft Le edema Assessment and plan acute metabolic encephalopathy 2/2 sepsis old CVA R frontal and R parietal HTN acute hypoxic respiratory failure 2/2 PNA PNA MRSA and enterobacter Pneumomediastinum pneumopericardium s/p tracheostomy chronic hep C ESRD on HD UTI ecoli enterobacter enterococcus AKA 2/2 PAD decub ulcer hyperparathyroidism 2/2 ESRD macrocytic anemia c/w o2 supplementation s/p keppra for sz ppx c/w hydralazine clonidine metoprolol amlodipine c/w abx nephro consult appreciated, c/w HD retacrit per nephro for transfer to [facility] train[facility] Lines trach rubio permacath Maintain potassium of 4, phosphate of 3 and magnesium of 2 Diet tube feeding nepro GI prophylaxis protonix DVT prophylaxis lovenox Condition critical Prognosis poor 47 minutes critical care time spent on this patient including evaluation, chart review, formulating plan and communication with team, excluding any procedures or point of care imaging Plan discussed with: Patient My Orders Orders - CARLENE OSUNA MD Procedure Category Date Status Time * [employer] CONS 07/19/24 Transmitted Consult Complete Blood Count LAB 07/20/24 Verified 04:00 Phosphorus LAB 07/20/24 Verified 04:00 Magnesium LAB 07/20/24 Verified 04:00 Date of Service: Jul 19, 2024 Billing Provider: CARLENE OSUNA MD Common Visit Codes: [id number] CARE 30-74 MIN CARLENE OSUNA MD Jul 19, 2024 15:00
--- NOTE | 2024-07-19 18:12 | DVHPN2 ---
Progress Note Date Seen: Jul 19, 2024 Has the PT tested + for MRSA If YES, has PT been informed?: Yes Medical Necessity Reason Pt with a Central, PICC or Fol: Yes The following are medically ne: Rubio Catheter Reason for rubio catheter: Strict I&O Subjective Patient reports: Feels better Review of Systems: Deferred Objective vital signs Vital Sign Date Time Temp Pulse Resp B/P (MAP) Pulse Ox O2 Delivery O2 Flow Rate FiO2 07/19/24 18:00 83 26 148/68 (94) 88 07/19/24 16:33 6.0 28 07/19/24 16:00 97.8 97.8 07/19/24 16:00 T-piece Total Intake and Output 07/18/24 07/18/24 07/19/24 15:00 23:00 07:00 Intake Total 678 ml Output Total 230 ml 150 ml Balance -230 ml 528 ml medications Current Medications Medications Dose Ordered Sig/[place] Route Start Time Stop Time Status Last Admin Dose Admin Enoxaparin Sodium 40 mg DAILY SC 06/10/24 10:00 UNV Enoxaparin Sodium 40 mg DAILY SC 06/17/24 10:00 UNV Epoetin [place]-epbx 10,000 unit TUTHSA SC 06/17/24 12:00 Hold 06/28/24 08:25 10,000 UNIT Acetaminophen 650 mg Q6HP PRN GT 06/20/24 11:30 07/15/24 20:50 650 MG Hydralazine HCl 10 mg Q4HP PRN IV 06/24/24 16:45 07/14/24 03:49 10 MG Omeprazole 20 mg DAILY GT 06/26/24 10:00 07/19/24 08:59 20 MG Albuterol 2.5 mg Q6HPRN PRN NEB 06/28/24 11:30 07/14/24 09:11 2.5 MG Lactulose 30 ml [id number] PRN PEG 07/01/24 10:15 Metoprolol Tartrate 50 mg BID PO 07/01/24 22:00 07/19/24 09:00 50 MG Enteral Nutritional Formula 1,000 ml 60ML/HR GT 07/02/24 11:00 07/19/24 15:29 1,000 ML Clonidine HCl 0.2 mg BID PO 07/03/24 22:00 07/19/24 08:59 0.2 MG Hydralazine HCl 100 mg Q8HR PO 07/07/24 22:00 07/19/24 13:24 100 MG Heparin Sodium (Porcine) 4,000 units JACKY PRN XX 07/09/24 11:00 Amlodipine Besylate 10 mg DAILY PO 07/11/24 10:00 07/19/24 09:00 10 MG Fentanyl 25 mcg Q72H TD 07/12/24 13:00 07/18/24 15:08 25 MCG Acetylcysteine 200 mg Q6HR NEB 07/14/24 12:00 07/19/24 18:08 200 MG Albuterol 2.5 mg Q6HR NEB 07/14/24 12:00 07/19/24 18:08 2.5 MG Ipratropium [place] 0.5 mg Q6HR NEB 07/14/24 12:00 07/19/24 18:08 0.5 MG Calcium Acetate 667 mg Q8HR PEG 07/17/24 14:00 07/19/24 13:24 667 MG Zirconium Oxide 10 gm TID GT 07/19/24 15:00 07/23/24 14:59 Bumetanide 2 mg BIDD PO 07/19/24 15:00 07/19/24 17:28 2 MG Examination: GENERAL:Abnormal, LUNGS:Abnormal, ABDOMEN:Abnormal, SKIN:Abnormal, :Abnormal laboratory and microbiology Laboratory Tests 07/19/24 04:55 Test 07/19/24 04:55 Range/Units Serum Glucose 95 74-106 mg/dL Microbiology Date/Time Source Procedure Growth Status 06/28/24 15:27 Blood Blood Culture - Final NO GROWTH AFTER 5 DAYS OF INCUBATION. Complete 06/25/24 08:20 Catheter Site Aerobic Culture - Final Methicillin Resistant S.aureus Acinetobacter baumannii MDRO Enterococcus faecalis Complete 06/11/24 16:06 Bronchial Washings Gram Stain - Final Complete 06/11/24 16:06 Respiratory Culture - Final Acinetobacter baumannii Pseudomonas aeruginosa Complete 05/30/24 11:45 Pleural Fluid Gram Stain - Final Complete 05/30/24 11:45 Pleural Fluid Body Fluid Culture - Final Complete 05/28/24 22:36 Urine - Catheterized Urine Culture - Final Enterobacter cloacae Escherichia coli Enterococcus faecalis - VRE Complete Problem List/Assessment/Plan Problem List/Assessment/Plan Acute kidney injury on ckd 4 - progressed to ckd 5?/ ESRD Acute respiratory failure advanced a chronic respiratory failure status post trach now trach to wall oxygen Septic shock resolved due to multidrug resistant organisms Peripheral artery disease Coronary artery disease Severe protein calorie malnutrition anemia due to ckd hyperkalemia HD Sunday hospice candidate tube feeding, start calcium acetate in tube feeds change feeds to renal restricted start oral lokelma TID epogen 3x a week Plan discussed with: Patient My Orders My Orders Orders - ANNA ROMERO MD Procedure Category Date Status Time Basic Metabolic Panel LAB 07/20/24 Verified 04:00 Sodium Zirconium PHA 07/19/24 In Process Cyclosilicate 15:00 Bumetanide Tablet PHA 07/19/24 In Process (Bumex Tablet) 15:00 Dietary Evaluation Review Comments: 1) If GI is assessible consider Jevity 1.2 @ 60 ml/hr x24 hrs goal rate as tolerated 2) If pt remains NPO >7 days consider TPN to meet at least 75% of estimated needs 3) Advance pt diet when medically feasible to a Cardiac/Renal Specific K2,2gmNA,low phos,60g Pro diet modified per SPECIALTY FINISHING UTILITY PERSON recommendations 4) Continue current plan of care Expected Outcomes/Goals: 1) Pt to receive adequate nutrition support 2) Pt diet to advance CC Plasma Assessment Blood Product Administration S: [id number] ANNA ROMERO MD Jul 19, 2024 18:12
--- NOTE | 2024-07-19 23:49 | DVHPN2 ---
Progress Note - Dictate Date Seen: Jul 19, 2024 Has the PT tested + for MRSA If YES, has PT been informed?: Yes Medical Necessity Reason Pt with a Central, PICC or Fol: Yes The following are medically ne: Rubio Catheter Reason for rubio catheter: Strict I&O Subjective Patient seen and examined at bedside. On trach with humidified O2. Overnight events reviewed. vital signs Vital Sign Date Time Temp Pulse Resp B/P (MAP) Pulse Ox O2 Delivery O2 Flow Rate FiO2 07/19/24 23:05 171/75 07/19/24 23:05 100 07/19/24 20:00 98.3 17 97 98.3 07/19/24 18:08 Trach Collar 6.0 07/19/24 18:08 28 28 Total Intake and Output 07/18/24 07/18/24 07/19/24 15:00 23:00 07:00 Intake Total 678 ml Output Total 230 ml 150 ml Balance -230 ml 528 ml medications Current Medications Medications Dose Ordered Sig/[place] Route Start Time Stop Time Status Last Admin Dose Admin Enoxaparin Sodium 40 mg DAILY SC 06/10/24 10:00 UNV Enoxaparin Sodium 40 mg DAILY SC 06/17/24 10:00 UNV Epoetin Calin-epbx 10,000 unit TUTHSA SC 06/17/24 12:00 Hold 06/28/24 08:25 10,000 UNIT Acetaminophen 650 mg Q6HP PRN GT 06/20/24 11:30 07/15/24 20:50 650 MG Hydralazine HCl 10 mg Q4HP PRN IV 06/24/24 16:45 07/14/24 03:49 10 MG Omeprazole 20 mg DAILY GT 06/26/24 10:00 07/19/24 08:59 20 MG Albuterol 2.5 mg Q6HPRN PRN NEB 06/28/24 11:30 07/14/24 09:11 2.5 MG Lactulose 30 ml [id number] PRN PEG 07/01/24 10:15 Metoprolol Tartrate 50 mg BID PO 07/01/24 22:00 07/19/24 23:05 50 MG Enteral Nutritional Formula 1,000 ml 60ML/HR GT 07/02/24 11:00 07/19/24 15:29 1,000 ML Clonidine HCl 0.2 mg BID PO 07/03/24 22:00 07/19/24 23:04 0.2 MG Hydralazine HCl 100 mg Q8HR PO 07/07/24 22:00 07/19/24 23:05 100 MG Heparin Sodium (Porcine) 4,000 units JACKY PRN XX 07/09/24 11:00 Amlodipine Besylate 10 mg DAILY PO 07/11/24 10:00 07/19/24 09:00 10 MG Fentanyl 25 mcg Q72H TD 07/12/24 13:00 07/18/24 15:08 25 MCG Acetylcysteine 200 mg Q6HR NEB 07/14/24 12:00 07/19/24 18:08 200 MG Albuterol 2.5 mg Q6HR NEB 07/14/24 12:00 07/19/24 18:08 2.5 MG Ipratropium [place] 0.5 mg Q6HR NEB 07/14/24 12:00 07/19/24 18:08 0.5 MG Calcium Acetate 667 mg Q8HR PEG 07/17/24 14:00 07/19/24 23:05 667 MG Zirconium Oxide 10 gm TID GT 07/19/24 15:00 07/23/24 14:59 07/19/24 23:03 10 GM Bumetanide 2 mg BIDD PO 07/19/24 15:00 07/19/24 17:28 2 MG objective Gen.: Patient lying in bed in no apparent distress. On trach with humidified O2. Head: Normocephalic, atraumatic. Eyes: EOMI/PERRLA. Ears: Normal hearing. Normal anatomy. Neck/trachea: Trach in place. Nose: Normal external anatomy. Mouth: Moist mucous membranes. Chest: Decreased air entry bilaterally. No wheezing or rhonchi. Cardiovascular: Positive S1, positive S2. Regular rate and rhythm. Abdomen: Positive bowel sounds in all 4 quadrants. Soft, non-tender, non- distended. : Deferred. Rectal: Deferred. Skin: Warm, dry. Intact. Extremities: 2+ radial pulses bilaterally. No lower extremity edema. Neuro: Awake, alert, oriented x3. No gross motor or sensory deficits. Cranial nerves II through XII intact. Gait not assessed. laboratory and microbiology Laboratory Tests 07/19/24 04:55 Test 07/19/24 04:55 Range/Units Serum Glucose 95 74-106 mg/dL Assessment/Plan Impression: Acute hypoxic respiratory failure Multifocal pneumonia Atelectasis Congestive heart failure Tracheostomy Events: S/p hemodialysis yesterday. On 6 LPM via trach. Increased trach secretions. Trach care Pulmonary toileting Humidified O2 via trach Patient is awake, alert. Continue bronchodilators Wound care. Tube feeds for nutritional support via PEG. HOB elevation Aspiration precautions. HD per Nephrology. Monitor renal function Monitor electrolytes. Supplement as necessary. Awaiting LTAC placement. S/p bronchoscopy with BAL on 07/08/24. See procedure note for full details. Rest of plan as noted below Plan: S/p trach, trach collar - on 6 L humidified O2 Off sedation Off pressors,hemodynamically stable. Antibiotics - completed Positive hepatitis C. IV fluid hydration Maintain euvolemia Monitor renal function Monitor electrolytes. Supplement as necessary. Monitor ins and outs. Tube feeds for nutritional support. GI prophylaxis. DVT prophylaxis. Prognosis: Poor given patient's multiple co-morbidities. Rest of plan per hospitalist and other consultants. Thank you Anthony Ugalde NP, for allowing me to participate in this patient's care. Further recommendations will depend on the patient's clinical course. Please do not hesitate to contact me if you have any questions or concerns. This medical document was created using an electronic medical record system with [employer] dictation system. Although these documentations are being carefully reviewed, there may still be some phonetic and typographical changes. The errors are purely typographical, due to imperfection on the software program, and do not reflect any compromise in the patient's medical care. Dietary Evaluation Review Comments: 1) If GI is assessible consider Jevity 1.2 @ 60 ml/hr x24 hrs goal rate as tolerated 2) If pt remains NPO >7 days consider TPN to meet at least 75% of estimated needs 3) Advance pt diet when medically feasible to a Cardiac/Renal Specific K2,2gmNA,low phos,60g Pro diet modified per CRANBERRY SORTER recommendations 4) Continue current plan of care Expected Outcomes/Goals: 1) Pt to receive adequate nutrition support 2) Pt diet to advance Plan discussed with: Other (RN Nando, RT, ) CC Plasma Assessment Blood Product Administration S: [id number] ELIANE ALTAMIRANO MD Jul 19, 2024 23:49
[2024-07-20] VITALS (42 sets, daily range): BP systolic 102–161; BP diastolic 49–84; PULSE 64–96; RESP 10–26; TEMP 97.3–99.3; O2SAT 90–100
[2024-07-20 05:37] LABS: Eosinophils # (auto) 0.4 10 ^3/uL (0-0.8); Eosinophils % (auto) 7.1 % (0.0-7.0); Hemoglobin 7.8 g/dL (13.5-17.5); Mean Corpuscular Hemoglobin 32.5 pg (28.0-32.0); Monocytes # (auto) 0.5 10 ^3/uL (0-1.3); Neutrophils # (auto) 3.3 10 ^3/uL (1.6-8.6); White Blood Cell 5.2 10^3/uL (4.4-10.8)
[2024-07-20 05:41] LABS: Basophils # (auto) 0.1 10 ^3/uL (0-0.2); Hematocrit 23.6 % (41.0-53.0); Lymphocytes % (auto) 19.5 % (10.0-50.0); Mean Corpuscular Volume 98.3 fL (80.0-100.0); Monocytes % (auto) 9.8 % (0.0-12.0); Neutrophils % (auto) 62.6 % (37.0-80.0); Platelet Count (auto) 169 10^3/uL (140-450); Red Cell Distribution Width 19.6 % (11.8-14.3)
[2024-07-20 05:58] LABS: Anion Gap 6 (5-15); Chloride 104 mmol/L (98-107); Sodium 143 mmol/L (136-145)
[2024-07-20 05:59] LABS: Calcium 9.4 mg/dL (8.7-10.4)
[2024-07-20 06:04] LABS: BUN/Creatinine Ratio 19.3 (10.0-20.0); Glucose 94 mg/dL (74-106)
[2024-07-20 06:05] LABS: Magnesium 2.2 mg/dL (1.6-2.6)
[2024-07-20 06:23] LABS: Blood Urea Nitrogen 63 mg/dL (9-23); Carbon Dioxide 33 mmol/L (20-31); Phosphorus 7.3 mg/dL (2.4-5.1)
--- NOTE | 2024-07-20 11:29 | DVHPN2 ---
Progress Note Date Seen: Jul 20, 2024 Has the PT tested + for MRSA If YES, has PT been informed?: Yes Medical Necessity Reason Pt with a Central, PICC or Fol: Yes The following are medically ne: Rubio Catheter Reason for rubio catheter: Strict I&O Subjective Patient reports: No new complaints Review of Systems: RESPIRATORY:Abnormal, GI:Abnormal Objective vital signs Vital Sign Date Time Temp Pulse Resp B/P (MAP) Pulse Ox O2 Delivery O2 Flow Rate FiO2 07/20/24 10:00 19 98 T-piece 6 30 30 07/20/24 10:00 72 07/20/24 10:00 125/60 07/20/24 08:00 98.7 98.7 Total Intake and Output 07/19/24 07/19/24 07/20/24 15:00 23:00 07:00 Intake Total 790 ml 850 ml Output Total 325 ml 300 ml Balance 465 ml 550 ml medications Current Medications Medications Dose Ordered Sig/[place] Route Start Time Stop Time Status Last Admin Dose Admin Enoxaparin Sodium 40 mg DAILY SC 06/10/24 10:00 UNV Enoxaparin Sodium 40 mg DAILY SC 06/17/24 10:00 UNV Epoetin Calin-epbx 10,000 unit TUTHSA SC 06/17/24 12:00 Hold 06/28/24 08:25 10,000 UNIT Acetaminophen 650 mg Q6HP PRN GT 06/20/24 11:30 07/15/24 20:50 650 MG Hydralazine HCl 10 mg Q4HP PRN IV 06/24/24 16:45 07/14/24 03:49 10 MG Omeprazole 20 mg DAILY GT 06/26/24 10:00 07/20/24 08:58 20 MG Albuterol 2.5 mg Q6HPRN PRN NEB 06/28/24 11:30 07/14/24 09:11 2.5 MG Lactulose 30 ml [id number] PRN PEG 07/01/24 10:15 Metoprolol Tartrate 50 mg BID PO 07/01/24 22:00 07/20/24 09:00 50 MG Enteral Nutritional Formula 1,000 ml 60ML/HR GT 07/02/24 11:00 07/19/24 15:29 1,000 ML Clonidine HCl 0.2 mg BID PO 07/03/24 22:00 07/20/24 09:00 0.2 MG Hydralazine HCl 100 mg Q8HR PO 07/07/24 22:00 07/20/24 05:55 100 MG Heparin Sodium (Porcine) 4,000 units JACKY PRN XX 07/09/24 11:00 Amlodipine Besylate 10 mg DAILY PO 07/11/24 10:00 07/20/24 09:01 10 MG Fentanyl 25 mcg Q72H TD 07/12/24 13:00 07/18/24 15:08 25 MCG Acetylcysteine 200 mg Q6HR NEB 07/14/24 12:00 07/20/24 07:04 200 MG Albuterol 2.5 mg Q6HR NEB 07/14/24 12:00 07/20/24 07:04 2.5 MG Ipratropium [place] 0.5 mg Q6HR NEB 07/14/24 12:00 07/20/24 07:04 0.5 MG Calcium Acetate 667 mg Q8HR PEG 07/17/24 14:00 07/20/24 05:55 667 MG Zirconium Oxide 10 gm TID GT 07/19/24 15:00 07/23/24 14:59 07/20/24 05:55 10 GM Bumetanide 2 mg BIDD PO 07/19/24 15:00 07/20/24 08:25 2 MG Examination: GENERAL:Abnormal, LUNGS:Abnormal, ABDOMEN:Abnormal laboratory and microbiology Laboratory Tests 07/20/24 05:13 Test 07/20/24 05:13 Range/Units Serum Glucose 94 74-106 mg/dL Microbiology Date/Time Source Procedure Growth Status 07/18/24 22:30 Urine - Suprapubic Aspirate Urine Culture - Preliminary Resulted 06/28/24 15:27 Blood Blood Culture - Final NO GROWTH AFTER 5 DAYS OF INCUBATION. Complete 06/25/24 08:20 Catheter Site Aerobic Culture - Final Methicillin Resistant S.aureus Acinetobacter baumannii MDRO Enterococcus faecalis Complete 06/11/24 16:06 Bronchial Washings Gram Stain - Final Complete 06/11/24 16:06 Respiratory Culture - Final Acinetobacter baumannii Pseudomonas aeruginosa Complete 05/30/24 11:45 Pleural Fluid Gram Stain - Final Complete 05/30/24 11:45 Pleural Fluid Body Fluid Culture - Final Complete Problem List/Assessment/Plan Problem List/Assessment/Plan Acute kidney injury on ckd 4 - progressed to ckd 5?/ ESRD Acute respiratory failure advanced a chronic respiratory failure status post trach now trach to wall oxygen Septic shock resolved due to multidrug resistant organisms Peripheral artery disease Coronary artery disease Severe protein calorie malnutrition anemia due to ckd hyperkalemia HD Sunday hospice candidate tube feeding, start calcium acetate in tube feeds change feeds to renal restricted start oral lokelma TID epogen 3x a week Plan discussed with: Patient My Orders My Orders Orders - ANNA ROMERO MD Procedure Category Date Status Time Sodium Zirconium PHA 07/19/24 In Process Cyclosilicate 15:00 Bumetanide Tablet PHA 07/19/24 In Process (Bumex Tablet) 15:00 Dietary Evaluation Review Comments: 1) If GI is assessible consider Jevity 1.2 @ 60 ml/hr x24 hrs goal rate as tolerated 2) If pt remains NPO >7 days consider TPN to meet at least 75% of estimated needs 3) Advance pt diet when medically feasible to a Cardiac/Renal Specific K2,2gmNA,low phos,60g Pro diet modified per NURSE PRACTITIONER recommendations 4) Continue current plan of care Expected Outcomes/Goals: 1) Pt to receive adequate nutrition support 2) Pt diet to advance CC Plasma Assessment Blood Product Administration S: [id number] ANNA ROMERO MD Jul 20, 2024 11:29
--- NOTE | 2024-07-20 12:52 | DVH ---
CHEST RADIOGRAPH Indication: CONFIRM TRACH PLACEMENT Technique: Single frontal view of the chest was obtained COMPARISON: XY CHEST XRAY 1 VIEW on DOS: 07/15/24, XY CHEST PORTABLE on DOS: 07/12/24, XY CHEST SHABNAM BLE on DOS: 07/11/24, XY CHEST PORTABLE on DOS: 07/10/24, XY CHEST PORTABLE on DOS: 07/09/24 FINDINGS: Lines and Tubes: Tracheostomy and right central venous catheter in satisfactory position. Left PICC in satisfactory position. Lungs: Patchy bilateral airspace disease. Pleura: Small left pleural effusion. No pneumothorax. Cardiomediastinal contours: Unremarkable Bones: Unremarkable IMPRESSION: Lines and tubes in satisfactory position. No significant interval change.
--- NOTE | 2024-07-20 18:20 | DVHPN2 ---
Assessment/Plan Assessment/Plan ICU progress note Subjective This is a 65-year-old male with past medical history of CHF, CKD, COPD, dyslipidemia, hypertension, CVA brought to the hospital with shortness of breaths and at the level of consciousness. Admitted and intubated on 05/28, extubated on 06/09 but reintubated on 06/10. Epigastric performed on 06/13, PEG tube placed on 06/15. Patient was seen by me today during rounds, on T piece 6LPM, status quo, pending transfer to [facility], ROM exercise, if able can be seen by PT, wean O2, pasy joy valve when able Objective Physical exam trahced on t piece alert and conversant gag + cough + PERRLA coarse breath sounds s1 s2 RRR abdomen soft Le edema Assessment and plan acute metabolic encephalopathy 2/2 sepsis old CVA R frontal and R parietal HTN acute hypoxic respiratory failure 2/2 PNA PNA MRSA and enterobacter Pneumomediastinum pneumopericardium s/p tracheostomy chronic hep C ESRD on HD UTI ecoli enterobacter enterococcus AKA 2/2 PAD decub ulcer hyperparathyroidism 2/2 ESRD macrocytic anemia c/w o2 supplementation s/p keppra for sz ppx c/w hydralazine clonidine metoprolol amlodipine c/w abx nephro consult appreciated, c/w HD retacrit per nephro for transfer to [facility] ROM trainig Lines trach rubio permacath Maintain potassium of 4, phosphate of 3 and magnesium of 2 Diet tube feeding nepro GI prophylaxis protonix DVT prophylaxis lovenox Condition critical Prognosis poor 35 minutes critical care time spent on this patient including evaluation, chart review, formulating plan and communication with team, excluding any procedures or point of care imaging Plan discussed with: Patient, Other My Orders Orders - CARLENE OSUNA MD Procedure Category Date Status Time Chest Xray 1 View XY 07/20/24 Resulted 09:52 Chest Percussion Tx RT 07/20/24 Logged Initi 11:10 Date of Service: Jul 20, 2024 Billing Provider: CARLENE OSUNA MD Common Visit Codes: [id number] CARE 30-74 MIN CARLENE OSUNA MD Jul 20, 2024 18:20
--- NOTE | 2024-07-20 23:18 | DVHPN2 ---
Progress Note - Dictate Date Seen: Jul 20, 2024 Has the PT tested + for MRSA If YES, has PT been informed?: Yes Medical Necessity Reason Pt with a Central, PICC or Fol: Yes The following are medically ne: Rubio Catheter Reason for rubio catheter: Strict I&O Subjective Patient seen and examined at bedside. On trach with humidified O2. Overnight events reviewed. vital signs Vital Sign Date Time Temp Pulse Resp B/P (MAP) Pulse Ox O2 Delivery O2 Flow Rate FiO2 07/20/24 22:00 65 07/20/24 22:00 20 100 T-piece 10 35 35 07/20/24 21:44 136/67 07/20/24 20:00 97.5 97.5 Total Intake and Output 07/19/24 07/19/24 07/20/24 15:00 23:00 07:00 Intake Total 790 ml 850 ml Output Total 325 ml 300 ml Balance 465 ml 550 ml medications Current Medications Medications Dose Ordered Sig/[place] Route Start Time Stop Time Status Last Admin Dose Admin Enoxaparin Sodium 40 mg DAILY SC 06/10/24 10:00 UNV Enoxaparin Sodium 40 mg DAILY SC 06/17/24 10:00 UNV Epoetin Calin-epbx 10,000 unit TUTHSA SC 06/17/24 12:00 Hold 06/28/24 08:25 10,000 UNIT Hydralazine HCl 10 mg Q4HP PRN IV 06/24/24 16:45 07/14/24 03:49 10 MG Omeprazole 20 mg DAILY GT 06/26/24 10:00 07/20/24 08:58 20 MG Albuterol 2.5 mg Q6HPRN PRN NEB 06/28/24 11:30 07/14/24 09:11 2.5 MG Lactulose 30 ml [id number] PRN PEG 07/01/24 10:15 Metoprolol Tartrate 50 mg BID PO 07/01/24 22:00 07/20/24 21:44 50 MG Enteral Nutritional Formula 1,000 ml 60ML/HR GT 07/02/24 11:00 07/19/24 15:29 1,000 ML Clonidine HCl 0.2 mg BID PO 07/03/24 22:00 07/20/24 21:44 0.2 MG Hydralazine HCl 100 mg Q8HR PO 07/07/24 22:00 07/20/24 21:43 100 MG Heparin Sodium (Porcine) 4,000 units JACKY PRN XX 07/09/24 11:00 Amlodipine Besylate 10 mg DAILY PO 07/11/24 10:00 07/20/24 09:01 10 MG Fentanyl 25 mcg Q72H TD 07/12/24 13:00 07/18/24 15:08 25 MCG Acetylcysteine 200 mg Q6HR NEB 07/14/24 12:00 07/20/24 19:39 200 MG Albuterol 2.5 mg Q6HR NEB 07/14/24 12:00 07/20/24 19:39 2.5 MG Ipratropium [place] 0.5 mg Q6HR NEB 07/14/24 12:00 07/20/24 19:39 0.5 MG Calcium Acetate 667 mg Q8HR PEG 07/17/24 14:00 07/20/24 21:42 667 MG Zirconium Oxide 10 gm TID GT 07/19/24 15:00 07/23/24 14:59 07/20/24 21:42 10 GM Bumetanide 2 mg BIDD PO 07/19/24 15:00 07/20/24 17:17 2 MG objective Gen.: Patient lying in bed in no apparent distress. On trach with humidified O2. Head: Normocephalic, atraumatic. Eyes: EOMI/PERRLA. Ears: Normal hearing. Normal anatomy. Neck/trachea: Trach in place. Nose: Normal external anatomy. Mouth: Moist mucous membranes. Chest: Decreased air entry bilaterally. No wheezing or rhonchi. Cardiovascular: Positive S1, positive S2. Regular rate and rhythm. Abdomen: Positive bowel sounds in all 4 quadrants. Soft, non-tender, non- distended. : Deferred. Rectal: Deferred. Skin: Warm, dry. Intact. Extremities: 2+ radial pulses bilaterally. No lower extremity edema. Neuro: Awake, alert, oriented x3. No gross motor or sensory deficits. Cranial nerves II through XII intact. Gait not assessed. laboratory and microbiology Laboratory Tests 07/20/24 05:13 Test 07/20/24 05:13 Range/Units Serum Glucose 94 74-106 mg/dL Assessment/Plan Impression: Acute hypoxic respiratory failure Multifocal pneumonia Atelectasis Congestive heart failure Tracheostomy Events: S/p trach S/p PEG. On 6 LPM via trach. Trach care Pulmonary toileting Desaturation episodes. Humidified O2 via trach Patient is awake, alert. Continue bronchodilators Wound care. Tube feeds for nutritional support via PEG. HOB elevation Aspiration precautions. HD per Nephrology. Monitor renal function Monitor electrolytes. Supplement as necessary. Awaiting LTAC placement. S/p bronchoscopy with BAL on 07/08/24. See procedure note for full details. Rest of plan as noted below Plan: S/p trach, trach collar - on 6 L humidified O2 Off sedation Off pressors,hemodynamically stable. Antibiotics - completed Positive hepatitis C. IV fluid hydration Maintain euvolemia Monitor renal function Monitor electrolytes. Supplement as necessary. Monitor ins and outs. Tube feeds for nutritional support. GI prophylaxis. DVT prophylaxis. Prognosis: Poor given patient's multiple co-morbidities. Rest of plan per hospitalist and other consultants. Thank you Anthony Ugalde NP, for allowing me to participate in this patient's care. Further recommendations will depend on the patient's clinical course. Please do not hesitate to contact me if you have any questions or concerns. This medical document was created using an electronic medical record system with [employer] dictation system. Although these documentations are being carefully reviewed, there may still be some phonetic and typographical changes. The errors are purely typographical, due to imperfection on the software program, and do not reflect any compromise in the patient's medical care. Dietary Evaluation Review Comments: 1) If GI is assessible consider Jevity 1.2 @ 60 ml/hr x24 hrs goal rate as tolerated 2) If pt remains NPO >7 days consider TPN to meet at least 75% of estimated needs 3) Advance pt diet when medically feasible to a Cardiac/Renal Specific K2,2gmNA,low phos,60g Pro diet modified per GLASSWORKER recommendations 4) Continue current plan of care Expected Outcomes/Goals: 1) Pt to receive adequate nutrition support 2) Pt diet to advance Plan discussed with: Patient, Other (DORCAS Haq) CC Plasma Assessment Blood Product Administration S: [id number] ELIANE ALTAMIRANO MD Jul 20, 2024 23:18
[2024-07-21] VITALS (44 sets, daily range): BP systolic 110–150; BP diastolic 55–77; PULSE 66–88; RESP 13–30; TEMP 97.8–99.2; O2SAT 87–100
[2024-07-21 05:41] LABS: Basophils # (auto) 0 10 ^3/uL (0-0.2); Eosinophils # (auto) 0.7 10 ^3/uL (0-0.8); Hematocrit 23.6 % (41.0-53.0); Mean Corpuscular Hgb Conc. 32.9 g/dL (32.0-36.0); Monocytes # (auto) 0.5 10 ^3/uL (0-1.3); Monocytes % (auto) 7.7 % (0.0-12.0); Neutrophils # (auto) 4.3 10 ^3/uL (1.6-8.6)
[2024-07-21 05:44] LABS: Basophils % (auto) 0.7 % (0.0-2.0); Eosinophils % (auto) 10.4 % (0.0-7.0); Hemoglobin 7.8 g/dL (13.5-17.5); Lymphocytes % (auto) 15.3 % (10.0-50.0); Mean Corpuscular Hemoglobin 32.2 pg (28.0-32.0); Mean Corpuscular Volume 97.9 fL (80.0-100.0); Neutrophils % (auto) 65.9 % (37.0-80.0); Nucleated Red Blood Cells % 0.2 %; Platelet Count (auto) 188 10^3/uL (140-450); Red Blood Cells 2.41 10^6/uL (4.5-5.90); Red Cell Distribution Width 19.1 % (11.8-14.3); White Blood Cell 6.5 10^3/uL (4.4-10.8)
[2024-07-21 06:00] LABS: BUN/Creatinine Ratio 20.4 (10.0-20.0); Calcium 9.4 mg/dL (8.7-10.4); Chloride 103 mmol/L (98-107); Potassium 4.6 mmol/L (3.5-5.1); Sodium 143 mmol/L (136-145); Total Protein 6.6 g/dL (5.7-8.2)
[2024-07-21 06:11] LABS: Alanine Aminotransferase 72 U/L (7-40); Albumin 2.7 g/dL (3.2-4.8); Alkaline Phosphatase 168 U/L (46-116); Aspartate Aminotransferase 137 U/L (13-40); Bilirubin, Total < 0.2 mg/dL (0.2-1.0); Blood Urea Nitrogen 77 mg/dL (9-23); Glucose 118 mg/dL (74-106)
[2024-07-21 06:16] LABS: Anion Gap 9 (5-15)
[2024-07-21 06:24] LABS: Carbon Dioxide 31 mmol/L (20-31)
--- NOTE | 2024-07-21 16:39 | DVHPN2 ---
Progress Note Date Seen: Jul 21, 2024 Has the PT tested + for MRSA If YES, has PT been informed?: Yes Medical Necessity Reason Pt with a Central, PICC or Fol: Yes The following are medically ne: Rubio Catheter Reason for rubio catheter: Strict I&O Subjective Patient reports: No new complaints, Other Review of Systems: Deferred Objective vital signs Vital Sign Date Time Temp Pulse Resp B/P (MAP) Pulse Ox O2 Delivery O2 Flow Rate FiO2 07/21/24 14:16 134/66 07/21/24 14:00 24 98 T-piece 10 35 35 07/21/24 14:00 76 07/21/24 08:00 98.6 98.6 Total Intake and Output 07/20/24 07/20/24 07/21/24 15:00 23:00 07:00 Intake Total 720 ml 839 ml Output Total 110 ml 100 ml Balance 610 ml 739 ml medications Current Medications Medications Dose Ordered Sig/[place] Route Start Time Stop Time Status Last Admin Dose Admin Enoxaparin Sodium 40 mg DAILY SC 06/10/24 10:00 UNV Enoxaparin Sodium 40 mg DAILY SC 06/17/24 10:00 UNV Epoetin Calin-epbx 10,000 unit TUTHSA SC 06/17/24 12:00 Hold 06/28/24 08:25 10,000 UNIT Hydralazine HCl 10 mg Q4HP PRN IV 06/24/24 16:45 07/14/24 03:49 10 MG Omeprazole 20 mg DAILY GT 06/26/24 10:00 07/21/24 09:21 20 MG Albuterol 2.5 mg Q6HPRN PRN NEB 06/28/24 11:30 07/14/24 09:11 2.5 MG Lactulose 30 ml [id number] PRN PEG 07/01/24 10:15 Metoprolol Tartrate 50 mg BID PO 07/01/24 22:00 07/21/24 09:22 50 MG Enteral Nutritional Formula 1,000 ml 60ML/HR GT 07/02/24 11:00 07/19/24 15:29 1,000 ML Clonidine HCl 0.2 mg BID PO 07/03/24 22:00 07/21/24 09:21 0.2 MG Hydralazine HCl 100 mg Q8HR PO 07/07/24 22:00 07/21/24 14:16 100 MG Heparin Sodium (Porcine) 4,000 units JACKY PRN XX 07/09/24 11:00 Amlodipine Besylate 10 mg DAILY PO 07/11/24 10:00 07/21/24 09:23 10 MG Acetylcysteine 200 mg Q6HR NEB 07/14/24 12:00 07/21/24 11:36 200 MG Albuterol 2.5 mg Q6HR NEB 07/14/24 12:00 07/21/24 11:36 2.5 MG Ipratropium [place] 0.5 mg Q6HR NEB 07/14/24 12:00 07/21/24 11:36 0.5 MG Calcium Acetate 667 mg Q8HR PEG 07/17/24 14:00 07/21/24 14:00 667 MG Bumetanide 2 mg BIDD PO 07/19/24 15:00 07/21/24 06:43 2 MG Examination: GENERAL:Abnormal, MSK:Abnormal, SKIN:Abnormal laboratory and microbiology Laboratory Tests 07/21/24 04:50 Test 07/21/24 04:50 Range/Units Serum Glucose 118 H 74-106 mg/dL Microbiology Date/Time Source Procedure Growth Status 07/18/24 22:30 Urine - Suprapubic Aspirate Urine Culture - Final Complete 06/28/24 15:27 Blood Blood Culture - Final NO GROWTH AFTER 5 DAYS OF INCUBATION. Complete 06/25/24 08:20 Catheter Site Aerobic Culture - Final Methicillin Resistant S.aureus Acinetobacter baumannii MDRO Enterococcus faecalis Complete 06/11/24 16:06 Bronchial Washings Gram Stain - Final Complete 06/11/24 16:06 Respiratory Culture - Final Acinetobacter baumannii Pseudomonas aeruginosa Complete 05/30/24 11:45 Pleural Fluid Gram Stain - Final Complete 05/30/24 11:45 Pleural Fluid Body Fluid Culture - Final Complete Problem List/Assessment/Plan Problem List/Assessment/Plan Acute kidney injury on chronic kidney disease stage 4 -> likely septic ATN needing HD Acute respiratory failure on vent Anemia suspected due to low blood loss s/p PRBC Hypernatremia Hypokalemia Metabolic acidosis Chronic urinary retention sepsis due to bacteremia recs HD tomorrow will f/u Plan discussed with: Patient Dietary Evaluation Review Comments: 1) If GI is assessible consider Jevity 1.2 @ 60 ml/hr x24 hrs goal rate as tolerated 2) If pt remains NPO >7 days consider TPN to meet at least 75% of estimated needs 3) Advance pt diet when medically feasible to a Cardiac/Renal Specific K2,2gmNA,low phos,60g Pro diet modified per CODER recommendations 4) Continue current plan of care Expected Outcomes/Goals: 1) Pt to receive adequate nutrition support 2) Pt diet to advance CC Plasma Assessment Blood Product Administration S: [id number] SUKI MERINO MD Jul 21, 2024 16:39
--- NOTE | 2024-07-21 18:58 | DVHPNRES ---
Progress Note Date Seen: Jul 21, 2024 Resident Creating Document: THA CRISOSTOMO RESIDENT Has the PT tested + for MRSA If YES, has PT been informed?: Yes Medical Necessity Reason Pt with a Central, PICC or Fol: Yes The following are medically ne: Rubio Catheter Reason for rubio catheter: Strict I&O Subjective Review of Systems This is a 65-year-old male with past medical history of CHF, CKD, COPD, dyslipidemia, hypertension, CVA brought to the hospital with shortness of breaths and at the level of consciousness. Admitted and intubated on 05/28, extubated on 06/09 but reintubated on 06/10. Epigastric performed on 06/13, PEG tube placed on 06/15. 07/01 - Patient seen and examined at bedside. Overnight no events, patient made 150 cc of urine in the morning and 125 cc in the night. Multiple bowel movements 500 cc on 06/30, 250 cc on the night of 07/01 and 200 on the morning of 07/01. Lactulose changed to p.r.n.. Patient is intubated and mechanically ventilated. Patient is satting 97% on trach collar via 6 L oxygen supplementation for the past 24 hours. He is not on pressor support. On fentanyl 20 mcg. Increase metoprolol to 50 mg b.i.d. and started clonidine 0.1 mg b.i.d.. Started fentanyl patch 25 mcg. IV fentanyl will be discontinued after overlapping her 4-5 hours with fentanyl patch. 07/02 - overnight patient made 100 mL of urine. 50 mL of output was drain from colostomy bag. Otherwise no events. Patient seen and examined at bedside. He underwent dialysis this morning and 2.5 L were drained. Chest x-ray reviewed shows worsening left-sided infiltrate. Patient is satting 98% on 3 color with 6 L oxygen supplementation. 07/03 - overnight colostomy bag was leaking so it was changed. Patient had 50 mL urine output in the lieutenant shift supervisor, 115 mL during the of the of 07/02. Colostomy bag was drained with 50 mL of contents. Patient is still hypotensive systolic ranging in 150s to 160s therefore clonidine increased to 0.2 mg b.i.d.. Creatinine trending down to 3.2. Tunnel catheter consent obtained. IR consulted. NPO starting morning. Final blood culture 06/28 shows no growth. IV antibiotics discontinued. 07/04 - overnight patient had 200 mL of colostomy output. Urine output 125 in the day of 07/03 and 150 in the lieutenant shift supervisor. Tunneled catheter placed to the right upper chest. DC left IJ catheter once dialysis session completed. Undergoing dialysis session today. 07/07 - patient seen and examined in the bedside. Underwent dialysis today. Over the weekend bronchoscopy completed 07/05 showed left lower lobe atelectasis due to mucus plugging and right lower lobe mucous plugging. 07/08 - pt desatted to 70s in the morning. CXR shows air in the subcutaneous tiisues. CT chest w/o ordered, showed Pneumomediastinum and pneumopericardium. Bilateral pleural effusions, left slightly greater than right. Bilateral lower lobe opacities compatible with compressive atelectasis. o2 supp increased to 10L from 6, and fio2 increased to 100%. Pt underwent bronch,showed Left lower lobe atelectasis due to mucous plugging. Mucous plugging from L6-L10. Pt switched to ventilator and IV fent started. Facial swelling resolving. 07/09 - overnight, pt desatted which improved with suctioning. HD today, lsix 40mg IV once. 07/10 - patient seen and examined at the bedside. No overnight events. Patient is more responsive, moving upper extremities to command . 07/11 - overnight no acute events. Saturating 97 on 6 L oxygen supplementation 07/14 - overnight patient drops his saturation to 80s, improves after suctioning back to 90s. Patient has creamy white secretions. Hemodialysis tomorrow. Potassium 5.3, albuterol, dextrose and insulin given. Started acetylcysteine 200 mg nebulized q.6 hour. Changed suprapubic catheter. 07/15 - patient seen and examined at bedside. 1060cc urine overnight 07/16 - overnight patient had dialysis. Patient is alert and talking. 07/17 - no overnight events, patient seen and examined. 07/18 - patient seen and examined. Respiratory rate increased to 30 after nebulized treatment. Chest PT and Mucomyst ordered. 07/21 - patient seen and examined at the bedside. Over the weekend, nephrology started Lokelma t.i.d. 1 g, Bumex 2 mg p.o. b.i.d. hepatitis B serology pending. Objective vital signs Vital Sign Date Time Temp Pulse Resp B/P (MAP) Pulse Ox O2 Delivery O2 Flow Rate FiO2 07/21/24 18:07 150/64 07/21/24 18:02 88 18 91 07/21/24 18:00 T-piece 10 35 35 07/21/24 16:00 97.8 97.8 Total Intake and Output 07/20/24 07/20/24 07/21/24 15:00 23:00 07:00 Intake Total 720 ml 839 ml Output Total 110 ml 100 ml Balance 610 ml 739 ml medications Current Medications Medications Dose Ordered Sig/[place] Route Start Time Stop Time Status Last Admin Dose Admin Enoxaparin Sodium 40 mg DAILY SC 06/10/24 10:00 UNV Enoxaparin Sodium 40 mg DAILY SC 06/17/24 10:00 UNV Epoetin Morena-epbx 10,000 unit TUTHSA SC 06/17/24 12:00 Hold 06/28/24 08:25 10,000 UNIT Hydralazine HCl 10 mg Q4HP PRN IV 06/24/24 16:45 07/14/24 03:49 10 MG Omeprazole 20 mg DAILY GT 06/26/24 10:00 07/21/24 09:21 20 MG Albuterol 2.5 mg Q6HPRN PRN NEB 06/28/24 11:30 07/14/24 09:11 2.5 MG Lactulose 30 ml [id number] PRN PEG 07/01/24 10:15 Metoprolol Tartrate 50 mg BID PO 07/01/24 22:00 07/21/24 09:22 50 MG Enteral Nutritional Formula 1,000 ml 60ML/HR GT 07/02/24 11:00 07/19/24 15:29 1,000 ML Clonidine HCl 0.2 mg BID PO 07/03/24 22:00 07/21/24 09:21 0.2 MG Hydralazine HCl 100 mg Q8HR PO 07/07/24 22:00 07/21/24 14:16 100 MG Heparin Sodium (Porcine) 4,000 units JACKY PRN XX 07/09/24 11:00 Amlodipine Besylate 10 mg DAILY PO 07/11/24 10:00 07/21/24 09:23 10 MG Acetylcysteine 200 mg Q6HR NEB 07/14/24 12:00 07/21/24 17:54 200 MG Albuterol 2.5 mg Q6HR NEB 07/14/24 12:00 07/21/24 17:53 2.5 MG Ipratropium Serafina 0.5 mg Q6HR NEB 07/14/24 12:00 07/21/24 17:54 0.5 MG Calcium Acetate 667 mg Q8HR PEG 07/17/24 14:00 07/21/24 14:00 667 MG Bumetanide 2 mg BIDD PO 07/19/24 15:00 07/21/24 18:07 2 MG Examination Patient lying in bed, in no acute distress. Patient is alert and following commands General: afebrile, palor, mucosae are moist. Resolving facial swelling. Cardiovascular: Regular S1 and S2. No murmurs, gallops or rubs. No JVD elevation. Resolving Bilateral pitting edema. Respiratory: Decreased but equal Bilateral air entry. Saturating 92% with 4 L supplementation via tracheostomy. Abdomen: Soft, nontender, nondistended, normoactive bowel sounds, no rebound tenderness, no organomegaly, no masses. Suprapubic catheter seen draining urine and colostomy bag seen draining 70 mL of orange mustard stool which is liquid in consistency. Peg tube in place. Genitourinary: Stage III sacral ulcer, skin non intact, draining pus and erythema noted. MSK/skin: Patient is moving upper extremities to commands. Skin is dry and warm Neurological: Pupils are isocoric and reactive. laboratory and microbiology Laboratory Tests 07/21/24 04:50 Test 07/21/24 04:50 Range/Units Serum Glucose 118 H 74-106 mg/dL Microbiology Date/Time Source Procedure Growth Status 07/18/24 22:30 Urine - Suprapubic Aspirate Urine Culture - Final Complete 06/28/24 15:27 Blood Blood Culture - Final NO GROWTH AFTER 5 DAYS OF INCUBATION. Complete 06/25/24 08:20 Catheter Site Aerobic Culture - Final Methicillin Resistant S.aureus Acinetobacter baumannii MDRO Enterococcus faecalis Complete 06/11/24 16:06 Bronchial Washings Gram Stain - Final Complete 06/11/24 16:06 Respiratory Culture - Final Acinetobacter baumannii Pseudomonas aeruginosa Complete 05/30/24 11:45 Pleural Fluid Gram Stain - Final Complete 05/30/24 11:45 Pleural Fluid Body Fluid Culture - Final Complete Labs and/or images reviewed: Labs reviewed by me, Image(s) reviewed by me Problem List/Assessment/Plan Problem List/Assessment/Plan NEURO: Acute metabolic encephalopathy likely due to sepsis History of seizure History of stroke - 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 Started clonidine 0.1 mg twice daily 07/01. Clonidine increased to 0.2 mg b.i.d. 07/03 Final blood culture 06/28 shows no growth PULMONARY: Acute Hypoxic Respiratory Failure likely due to pneumonia Septic shock likely due to pneumonia, improved Pneumonia likely due to MRSA and Enterobacter cloacae Pneumomediastinum and pneumopericardium - Patient is sedated and mechanically ventilated with PEEP of 30% - CT scan shows [id number] left pleural effusion - MRSA nares screening, COVID-19 and flu are negative - Bronchoscopy performed on 06/11, there was some thin mucus secretion on bilateral side, bronchial lavage of right lower lobe and left lower lobe was performed, and the culture results shows Pseudomonas aeruginosa and Enterobacter baumanni, MDR; ID has been consulted - Sputum culture from bronchoalveolar lavage from 05/24/24 shows MRSA, Enterobacter cloacae - Blood culture from the 06/02/24 shows Staphylococcus epidermidis , Staph hominis - Repeat culture from 06/09/2024 shows no growth - Stopped IV linezolid, given for 11 days, discontinued meropenem, started on 06/08 and given for 12 days - started acetylcysteine nebulized 07/14 and chest physical therapy - Breathing treatment q.6 hours p.r.n. -started fentanyl patch 25 mcg 07/01 - bronchoscopy completed 07/05 showed left lower lobe atelectasis due to mucus plugging and right lower lobe mucous plugging. - 07/08 - pt desatted to 70s in the morning. CXR shows air in the subcutaneous tissues. CT chest w/o ordered, showed Pneumomediastinum and pneumopericardium. Bilateral pleural effusions, left slightly greater than right. Bilateral lower lobe opacities compatible with compressive atelectasis. o2 supp increased to 10L from 6, and fio2 increased to 100%. Pt underwent bronch,showed Left lower lobe atelectasis due to mucous plugging. Mucous plugging from L6-L10. GI - GI ppx: omeprazole 20mg daily via OG tube - Hepatitis-C virus antibody positive - Repeat stool occult blood test is negative - CT abdominopelvic without contrast shows no evidence of intra-abdominal hemorrhage - Tracheostomy is performed on 06/13 - PEG tube is placed on 06/15 - Bowel regimen: Lactulose 30 mL b.i.d. change to p.r.n. 07/01 : FROYLAN, possible VMN on ESRD requiring hemodialysis - Nephrology consulted, epoetin morena 23564 units SC post dialysis. Radiology for tunneled hemodialysis catheter when the blood culture negative for 72 hours - Stopped Bumix 1mg BID - creatinine increased to 3.91 from 3.64 - Homer catheter placed on left internal jugular, on 06/26, removed on 07/04 - tunneled catheter placed to the right upper chest 07/04 - hemodialysis completed 07/02 and 07/04 and 07/07, 07/09, 07/12, 07/15, 07/18 UTI, urinalysis shows UTI picture - Urine culture from 05/28/2024 shows Enterobacter, E coli, Enterococcus faecalis MUSCULOSKELETAL Status post right lower limb, above knee amputation likely due to PAD Decubitus ulcer - There are multiple stage 3-4 sacral ulcers draining pus - position changing every 2 hours and dressing -started fentanyl patch 25 mcg 07/01 ENDOCRINE SECONDARY HYPERPARATHYROIDISM Nephrology recommended starting calcium acetate in tube feeding, 1334mg calcium associated with each meal. HEME Severe anemia, transfused 4 pack of red blood cells Anemia of chronic disease Thrombocytopenia Macrocytic anemia - Retacrit T/TH/SAT - B12 normal, folate low normal ID: - Sputum culture from bronchoalveolar lavage from 05/24/24 shows MRSA, Enterobacter cloacae - Blood culture from the 06/02/24 shows Staphylococcus epidermidis , Staph hominis - Repeat culture from 06/09/2024 shows no growth - culture results from BAL from 06/11 shows Pseudomonas aeruginosa and Enterobacter baumanni, MDR - discontinued IV linezolid starting 06/28 and meropenem starting 06/25, discontinued in 07/03 - previously received vancomycin - catheter site culture 06/25 completed shows MRSA, Acinetobacter baumannii MDRO, Enterococcus faecalis. SKIN Possible keloid - There is a growth on the left shoulder, per son, lesion has been present for several years - Follow up on outpatient basis Metabolic: Hypernatremia, improved Hypokalemia, discontinued potassium supplementation given ESRD Hyperkalemia, albuterol, insulin d5w administered Mild hyponatremia, monitoring Hypoglycemic episodes, improved Hypomagnesemia, supplemented LINES/DRAINS/ACCESS: ETT, intubated on 05/28/2024 and tracheostomy performed on 06/11, PEG tube placed on 06/15 IV access Left internal jugular CVC, placed on 06/26 and removed on 07/04 Right IJ hemodialysis catheter placed 07/04 Suprapubic catheter, changed on 07/14/2024 Dripps: Fentanyl patch 25 mg Off pressor DIET: Jevity 1.2 john 60 mL/hour DVT prophylaxis Lovenox 30mg SC daily Disposition: adoption social worker consulted for transfer to the [facility]. Will be transfered to [facility] in [facility] or [facility]. critical care time including review of charts, discussing case with patient's nurse, and son excluding procedures is 42 mins CODE STATUS: Full code Plan discussed with patient and his son at bedside in which all questions have been answered. Case discussed with Dr. Isabel Plan discussed with: Patient My Orders My Orders Orders - THA CRISOSTOMO RESIDENT Procedure Category Date Status Time Hepatitis B Core Igm LAB 07/21/24 Logged 17:43 Hepatitis B Surface LAB 07/21/24 Logged Antibody 17:43 Hepatitis B Surface LAB 07/21/24 Logged Antigen 17:43 Dietary Evaluation Review Comments: 1) If GI is assessible consider Jevity 1.2 @ 60 ml/hr x24 hrs goal rate as tolerated 2) If pt remains NPO >7 days consider TPN to meet at least 75% of estimated needs 3) Advance pt diet when medically feasible to a Cardiac/Renal Specific K2,2gmNA,low phos,60g Pro diet modified per BACKUP ADMINISTRATIVE COORDINATOR recommendations 4) Continue current plan of care Expected Outcomes/Goals: 1) Pt to receive adequate nutrition support 2) Pt diet to advance CC Plasma Assessment Blood Product Administration S: [id number] Date of Service: Jul 21, 2024 Billing Provider: HOLGER ISABEL MD Common Visit Codes: [id number] CARE 30-74 MIN THA CRISOSTOMO RESIDENT Jul 21, 2024 18:58 HOLGER ISABEL MD Jul 22, 2024 12:05
[2024-07-22] VITALS (64 sets, daily range): BP systolic 77–178; BP diastolic 7–80; PULSE 66–120; RESP 16–33; TEMP 98.3–101.3; O2SAT 82–100
[2024-07-22 05:51] LABS: Anion Gap 10 (5-15); Chloride 104 mmol/L (98-107); Potassium 4.4 mmol/L (3.5-5.1)
[2024-07-22 05:52] LABS: Calcium 9.7 mg/dL (8.7-10.4)
[2024-07-22 05:57] LABS: BUN/Creatinine Ratio 19.3 (10.0-20.0); Glucose 96 mg/dL (74-106); Magnesium 2.6 mg/dL (1.6-2.6)
[2024-07-22 06:00] LABS: Basophils # (auto) 0.1 10 ^3/uL (0-0.2); Basophils % (auto) 0.6 % (0.0-2.0); Eosinophils # (auto) 0.5 10 ^3/uL (0-0.8); Hematocrit 24.7 % (41.0-53.0); Hemoglobin 8.3 g/dL (13.5-17.5); Monocytes # (auto) 0.6 10 ^3/uL (0-1.3); Red Blood Cells 2.53 10^6/uL (4.5-5.90)
[2024-07-22 06:02] LABS: Eosinophils % (auto) 5.5 % (0.0-7.0); Lymphocytes % (auto) 10.8 % (10.0-50.0); Mean Corpuscular Hemoglobin 32.7 pg (28.0-32.0); Mean Corpuscular Hgb Conc. 33.6 g/dL (32.0-36.0); Mean Corpuscular Volume 97.6 fL (80.0-100.0); Monocytes % (auto) 6.1 % (0.0-12.0); Nucleated Red Blood Cells % 0.1 %; Platelet Count (auto) 220 10^3/uL (140-450); Red Cell Distribution Width 18.7 % (11.8-14.3); White Blood Cell 9.1 10^3/uL (4.4-10.8)
[2024-07-22 06:08] LABS: Carbon Dioxide 31 mmol/L (20-31); Sodium 145 mmol/L (136-145)
[2024-07-22 06:10] LABS: Blood Urea Nitrogen 82 mg/dL (9-23)
--- NOTE | 2024-07-22 14:34 | DVHPNRES ---
Progress Note Date Seen: Jul 22, 2024 Resident Creating Document: THA CRISOSTOMO RESIDENT Has the PT tested + for MRSA If YES, has PT been informed?: Yes Medical Necessity Reason Pt with a Central, PICC or Fol: Yes The following are medically ne: Rubio Catheter Reason for rubio catheter: Strict I&O Subjective Review of Systems This is a 65-year-old male with past medical history of CHF, CKD, COPD, dyslipidemia, hypertension, CVA brought to the hospital with shortness of breaths and at the level of consciousness. Admitted and intubated on 05/28, extubated on 06/09 but reintubated on 06/10. Epigastric performed on 06/13, PEG tube placed on 06/15. Patient seen and examined at the bedside. Overnight, patient was febrile at 99.4 F, increased oxygen requirement up to 10 L, repeated blood culture and respiratory culture. Objective vital signs Vital Sign Date Time Temp Pulse Resp B/P (MAP) Pulse Ox O2 Delivery O2 Flow Rate FiO2 07/22/24 14:00 19 86 T-piece 10 100 100 07/22/24 14:00 89 07/22/24 13:29 99.1 99.1 Total Intake and Output 07/21/24 07/21/24 07/22/24 15:00 23:00 07:00 Intake Total 600 ml 789 ml Output Total 180 ml 155 ml Balance 420 ml 634 ml medications Current Medications Medications Dose Ordered Sig/[place] Route Start Time Stop Time Status Last Admin Dose Admin Enoxaparin Sodium 40 mg DAILY SC 06/10/24 10:00 UNV Enoxaparin Sodium 40 mg DAILY SC 06/17/24 10:00 UNV Epoetin [place]-epbx 10,000 unit TUTHSA SC 06/17/24 12:00 Hold 06/28/24 08:25 10,000 UNIT Hydralazine HCl 10 mg Q4HP PRN IV 06/24/24 16:45 07/14/24 03:49 10 MG Omeprazole 20 mg DAILY GT 06/26/24 10:00 07/22/24 09:38 20 MG Lactulose 30 ml [id number] PRN PEG 07/01/24 10:15 Metoprolol Tartrate 50 mg BID PO 07/01/24 22:00 07/22/24 09:21 50 MG Enteral Nutritional Formula 1,000 ml 60ML/HR GT 07/02/24 11:00 07/19/24 15:29 1,000 ML Clonidine HCl 0.2 mg BID PO 07/03/24 22:00 07/22/24 11:01 0.2 MG Hydralazine HCl 100 mg Q8HR PO 07/07/24 22:00 07/22/24 05:39 100 MG Heparin Sodium (Porcine) 4,000 units JACKY PRN XX 07/09/24 11:00 Amlodipine Besylate 10 mg DAILY PO 07/11/24 10:00 07/22/24 09:21 10 MG Acetylcysteine 200 mg Q6HR NEB 07/14/24 12:00 07/22/24 11:55 200 MG Albuterol 2.5 mg Q6HR NEB 07/14/24 12:00 07/22/24 11:54 2.5 MG Ipratropium [place] 0.5 mg Q6HR NEB 07/14/24 12:00 07/22/24 11:54 0.5 MG Calcium Acetate 667 mg Q8HR PEG 07/17/24 14:00 07/22/24 05:39 667 MG Bumetanide 2 mg BIDD PO 07/19/24 15:00 07/22/24 05:40 2 MG Examination Patient lying in bed, in no acute distress. Patient is alert and following commands General: afebrile, palor, mucosae are moist. Resolving facial swelling. Cardiovascular: Regular S1 and S2. No murmurs, gallops or rubs. No JVD elevation. Resolving Bilateral pitting edema. Respiratory: Decreased but equal Bilateral air entry. Saturating 92% with 10 L supplementation via tracheostomy. Abdomen: Soft, nontender, nondistended, normoactive bowel sounds, no rebound tenderness, no organomegaly, no masses. Suprapubic catheter seen draining urine and colostomy bag seen draining 70 mL of orange mustard stool which is liquid in consistency. Peg tube in place. Genitourinary: Stage III sacral ulcer, skin non intact, draining pus and erythema noted. MSK/skin: Patient is moving upper extremities to commands. Skin is dry and warm Neurological: Pupils are isocoric and reactive. laboratory and microbiology Laboratory Tests 07/22/24 04:40 Test 07/22/24 04:40 Range/Units Serum Glucose 96 74-106 mg/dL Microbiology Date/Time Source Procedure Growth Status 07/18/24 22:30 Urine - Suprapubic Aspirate Urine Culture - Final Complete 06/28/24 15:27 Blood Blood Culture - Final NO GROWTH AFTER 5 DAYS OF INCUBATION. Complete 06/25/24 08:20 Catheter Site Aerobic Culture - Final Methicillin Resistant S.aureus Acinetobacter baumannii MDRO Enterococcus faecalis Complete 06/11/24 16:06 Bronchial Washings Gram Stain - Final Complete 06/11/24 16:06 Respiratory Culture - Final Acinetobacter baumannii Pseudomonas aeruginosa Complete 05/30/24 11:45 Pleural Fluid Gram Stain - Final Complete 05/30/24 11:45 Pleural Fluid Body Fluid Culture - Final Complete Labs and/or images reviewed: Labs reviewed by me, Image(s) reviewed by me Problem List/Assessment/Plan Problem List/Assessment/Plan NEURO: Acute metabolic encephalopathy likely due to sepsis History of seizure History of stroke - 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 Started clonidine 0.1 mg twice daily 07/01. Clonidine increased to 0.2 mg b.i.d. 07/03 Final blood culture 06/28 shows no growth PULMONARY: Acute Hypoxic Respiratory Failure likely due to pneumonia Septic shock likely due to pneumonia, improved Pneumonia likely due to MRSA and Enterobacter cloacae, MDRO Pseud, acinetobacter Pneumomediastinum and pneumopericardium - Patient is sedated and mechanically ventilated with PEEP of 30% - CT scan shows [id number] left pleural effusion - MRSA nares screening, COVID-19 and flu are negative - Bronchoscopy performed on 06/11, there was some thin mucus secretion on bilateral side, bronchial lavage of right lower lobe and left lower lobe was performed, and the culture results shows Pseudomonas aeruginosa and Enterobacter baumanni, MDR; ID has been consulted - Sputum culture from bronchoalveolar lavage from 05/24/24 shows MRSA, Enterobacter cloacae - Blood culture from the 06/02/24 shows Staphylococcus epidermidis , Staph hominis - Repeat culture from 06/09/2024 shows no growth - Stopped IV linezolid, given for 11 days, discontinued meropenem, started on 06/08 and given for 12 days - started acetylcysteine nebulized 07/14 and chest physical therapy - Breathing treatment q.6 hours p.r.n. -started fentanyl patch 25 mcg 07/01 - bronchoscopy completed 07/05 showed left lower lobe atelectasis due to mucus plugging and right lower lobe mucous plugging. - 07/08 - pt desatted to 70s in the morning. CXR shows air in the subcutaneous tissues. CT chest w/o ordered, showed Pneumomediastinum and pneumopericardium. Bilateral pleural effusions, left slightly greater than right. Bilateral lower lobe opacities compatible with compressive atelectasis. o2 supp increased to 10L from 6, and fio2 increased to 100%. Pt underwent bronch,showed Left lower lobe atelectasis due to mucous plugging. Mucous plugging from L6-L10. GI - GI ppx: omeprazole 20mg daily via OG tube - Hepatitis-C virus antibody positive - Repeat stool occult blood test is negative - CT abdominopelvic without contrast shows no evidence of intra-abdominal hemorrhage - Tracheostomy is performed on 06/13 - PEG tube is placed on 06/15 - Bowel regimen: Lactulose 30 mL b.i.d. change to p.r.n. 07/01 : FROYLAN, possible VMN on ESRD requiring hemodialysis - Nephrology consulted, epoetin morena 30066 units SC post dialysis. Radiology for tunneled hemodialysis catheter when the blood culture negative for 72 hours - Stopped Bumix 1mg BID - creatinine increased to 3.91 from 3.64 - Homer catheter placed on left internal jugular, on 06/26, removed on 07/04 - tunneled catheter placed to the right upper chest 07/04 - hemodialysis completed 07/02 and 07/04 and 07/07, 07/09, 07/12, 07/15, 07/18 UTI, urinalysis shows UTI picture - Urine culture from 05/28/2024 shows Enterobacter, E coli, Enterococcus faecalis MUSCULOSKELETAL Status post right lower limb, above knee amputation likely due to PAD Decubitus ulcer - There are multiple stage 3-4 sacral ulcers draining pus - position changing every 2 hours and dressing -started fentanyl patch 25 mcg 07/01 ENDOCRINE SECONDARY HYPERPARATHYROIDISM Nephrology recommended starting calcium acetate in tube feeding, 1334mg calcium associated with each meal. HEME Severe anemia, transfused 4 pack of red blood cells Anemia of chronic disease Thrombocytopenia Macrocytic anemia - Retacrit T/TH/SAT - B12 normal, folate low normal ID: - Sputum culture from bronchoalveolar lavage from 05/24/24 shows MRSA, Enterobacter cloacae - Blood culture from the 06/02/24 shows Staphylococcus epidermidis , Staph hominis - Repeat culture from 06/09/2024 shows no growth - culture results from BAL from 06/11 shows Pseudomonas aeruginosa and Enterobacter baumanni, MDR - discontinued IV linezolid starting 06/28 and meropenem starting 06/25, discontinued in 07/03 - previously received vancomycin - catheter site culture 06/25 completed shows MRSA, Acinetobacter baumannii MDRO, Enterococcus faecalis. - repeat blood and respiratory culture ordered 07/22 SKIN Possible keloid - There is a growth on the left shoulder, per son, lesion has been present for several years - Follow up on outpatient basis Metabolic: Hypernatremia, improved Hypokalemia, discontinued potassium supplementation given ESRD Hyperkalemia, albuterol, insulin d5w administered Mild hyponatremia, monitoring Hypoglycemic episodes, improved Hypomagnesemia, supplemented LINES/DRAINS/ACCESS: ETT, intubated on 05/28/2024 and tracheostomy performed on 06/11, PEG tube placed on 06/15 IV access Left internal jugular CVC, placed on 06/26 and removed on 07/04 Right IJ hemodialysis catheter placed 07/04 Suprapubic catheter, changed on 07/14/2024 Dripps: Fentanyl patch 25 mg Off pressor DIET: Jevity 1.2 john 60 mL/hour DVT prophylaxis Lovenox 30mg SC daily Disposition: social work instructor consulted for transfer to the [facility]. Will be transfered to [place] in [facility] or [facility]. critical care time including review of charts, discussing case with patient's nurse, and son excluding procedures is 42 mins CODE STATUS: Full code Plan discussed with patient and his son at bedside in which all questions have been answered. Case discussed with Dr. Isabel Plan discussed with: Patient My Orders My Orders Orders - THA CRISOSTOMO RESIDENT Procedure Category Date Status Time Hepatitis B Core Igm LAB 07/21/24 In Process 17:43 Hepatitis B Surface LAB 07/21/24 In Process Antibody 17:43 Hepatitis B Surface LAB 07/21/24 In Process Antigen 17:43 Blood Culture SUZANNA 07/22/24 In Process 09:53 Dietary Evaluation Review Comments: 1) If GI is assessible consider Jevity 1.2 @ 60 ml/hr x24 hrs goal rate as tolerated 2) If pt remains NPO >7 days consider TPN to meet at least 75% of estimated needs 3) Advance pt diet when medically feasible to a Cardiac/Renal Specific K2,2gmNA,low phos,60g Pro diet modified per EDUCATION FINANCE PROCESSOR recommendations 4) Continue current plan of care Expected Outcomes/Goals: 1) Pt to receive adequate nutrition support 2) Pt diet to advance CC Plasma Assessment Blood Product Administration S: [id number] Date of Service: Jul 22, 2024 Billing Provider: HOLGER ISABEL MD Common Visit Codes: [id number] CARE 30-74 MIN THA CRISOSTOMO RESIDENT Jul 22, 2024 14:34 HOLGER ISABEL MD Jul 23, 2024 10:34
--- NOTE | 2024-07-22 16:58 | DVHPN2 ---
Progress Note Date Seen: Jul 22, 2024 Has the PT tested + for MRSA If YES, has PT been informed?: Yes Medical Necessity Reason Pt with a Central, PICC or Fol: Yes The following are medically ne: Rubio Catheter Reason for rubio catheter: Strict I&O Subjective Patient reports: Other Review of Systems: Deferred Objective vital signs Vital Sign Date Time Temp Pulse Resp B/P (MAP) Pulse Ox O2 Delivery O2 Flow Rate FiO2 07/22/24 16:00 18 82 T-piece 10 100 100 07/22/24 16:00 95 07/22/24 15:00 121/60 (80) 07/22/24 13:29 99.1 99.1 Total Intake and Output 07/21/24 07/21/24 07/22/24 15:00 23:00 07:00 Intake Total 600 ml 789 ml Output Total 180 ml 155 ml Balance 420 ml 634 ml medications Current Medications Medications Dose Ordered Sig/[place] Route Start Time Stop Time Status Last Admin Dose Admin Enoxaparin Sodium 40 mg DAILY SC 06/10/24 10:00 UNV Enoxaparin Sodium 40 mg DAILY SC 06/17/24 10:00 UNV Epoetin [place]-epbx 10,000 unit TUTHSA SC 06/17/24 12:00 Hold 06/28/24 08:25 10,000 UNIT Hydralazine HCl 10 mg Q4HP PRN IV 06/24/24 16:45 07/14/24 03:49 10 MG Omeprazole 20 mg DAILY GT 06/26/24 10:00 07/22/24 09:38 20 MG Lactulose 30 ml [id number] PRN PEG 07/01/24 10:15 Metoprolol Tartrate 50 mg BID PO 07/01/24 22:00 07/22/24 09:21 50 MG Enteral Nutritional Formula 1,000 ml 60ML/HR GT 07/02/24 11:00 07/19/24 15:29 1,000 ML Clonidine HCl 0.2 mg BID PO 07/03/24 22:00 07/22/24 11:01 0.2 MG Hydralazine HCl 100 mg Q8HR PO 07/07/24 22:00 07/22/24 05:39 100 MG Heparin Sodium (Porcine) 4,000 units JACKY PRN XX 07/09/24 11:00 Amlodipine Besylate 10 mg DAILY PO 07/11/24 10:00 07/22/24 09:21 10 MG Acetylcysteine 200 mg Q6HR NEB 07/14/24 12:00 07/22/24 11:55 200 MG Albuterol 2.5 mg Q6HR NEB 07/14/24 12:00 07/22/24 11:54 2.5 MG Ipratropium [place] 0.5 mg Q6HR NEB 07/14/24 12:00 07/22/24 11:54 0.5 MG Calcium Acetate 667 mg Q8HR PEG 07/17/24 14:00 07/22/24 05:39 667 MG Bumetanide 2 mg BIDD PO 07/19/24 15:00 07/22/24 05:40 2 MG Examination: GENERAL:Abnormal, LUNGS:Abnormal, MSK:Abnormal, NEURO:Normal laboratory and microbiology Laboratory Tests 07/22/24 04:40 Test 07/22/24 04:40 Range/Units Serum Glucose 96 74-106 mg/dL Microbiology Date/Time Source Procedure Growth Status 07/18/24 22:30 Urine - Suprapubic Aspirate Urine Culture - Final Complete 06/28/24 15:27 Blood Blood Culture - Final NO GROWTH AFTER 5 DAYS OF INCUBATION. Complete 06/25/24 08:20 Catheter Site Aerobic Culture - Final Methicillin Resistant S.aureus Acinetobacter baumannii MDRO Enterococcus faecalis Complete 06/11/24 16:06 Bronchial Washings Gram Stain - Final Complete 06/11/24 16:06 Respiratory Culture - Final Acinetobacter baumannii Pseudomonas aeruginosa Complete 05/30/24 11:45 Pleural Fluid Gram Stain - Final Complete 05/30/24 11:45 Pleural Fluid Body Fluid Culture - Final Complete Problem List/Assessment/Plan Problem List/Assessment/Plan Acute kidney injury on chronic kidney disease stage 4 -> likely septic ATN needing HD Acute respiratory failure on vent Anemia suspected due to low blood loss s/p PRBC Hypernatremia Hypokalemia Metabolic acidosis Chronic urinary retention sepsis due to bacteremia recs HD today desaturation episodes on HD will f/u Plan discussed with: Other My Orders My Orders Orders - SUKI MERINO MD Procedure Category Date Status Time Hemodialysis Orders ORDERS 07/22/24 Transmitted 12:10 Dietary Evaluation Review Comments: 1) If GI is assessible consider Jevity 1.2 @ 60 ml/hr x24 hrs goal rate as tolerated 2) If pt remains NPO >7 days consider TPN to meet at least 75% of estimated needs 3) Advance pt diet when medically feasible to a Cardiac/Renal Specific K2,2gmNA,low phos,60g Pro diet modified per LIAISON INSPECTION LABORATORY ASSISTANT recommendations 4) Continue current plan of care Expected Outcomes/Goals: 1) Pt to receive adequate nutrition support 2) Pt diet to advance CC Plasma Assessment Blood Product Administration S: [id number] SUKI MERINO MD Jul 22, 2024 16:58
[2024-07-22] MEDS: EPOETIN ALFA-EPBX 10,000 UNIT/1ML VIAL SC ONE (21:43)
[2024-07-22] MEDS: ACETAMINOPHEN 325 MG TAB PO PRN (21:46)
[2024-07-23] VITALS (101 sets, daily range): BP systolic 97–147; BP diastolic 40–100; PULSE 64–127; RESP 9–27; TEMP 97.7–98.6; O2SAT 66–100
[2024-07-23 05:24] LABS: Basophils # (auto) 0 10 ^3/uL (0-0.2); Basophils % (auto) 0.4 % (0.0-2.0); Eosinophils # (auto) 0.1 10 ^3/uL (0-0.8); Eosinophils % (auto) 0.6 % (0.0-7.0); Hematocrit 21.8 % (41.0-53.0); Hemoglobin 7.3 g/dL (13.5-17.5); Lymphocytes % (auto) 11.1 % (10.0-50.0); Mean Corpuscular Hemoglobin 32.5 pg (28.0-32.0); Mean Corpuscular Hgb Conc. 33.5 g/dL (32.0-36.0); Mean Corpuscular Volume 97.2 fL (80.0-100.0); Monocytes # (auto) 0.5 10 ^3/uL (0-1.3); Monocytes % (auto) 5.9 % (0.0-12.0); Neutrophils # (auto) 7.2 10 ^3/uL (1.6-8.6); Platelet Count (auto) 189 10^3/uL (140-450); Red Blood Cells 2.25 10^6/uL (4.5-5.90); White Blood Cell 8.8 10^3/uL (4.4-10.8)
--- NOTE | 2024-07-23 05:25 | DVH ---
CHEST RADIOGRAPH Indication: Routine Technique: Single frontal view of the chest was obtained COMPARISON: XY CHEST XRAY 1 VIEW on DOS: 07/20/24, XY CHEST XRAY 1 VIEW on DOS: 07/15/24, XY CHEST PORT ABLE on DOS: 07/12/24, XY CHEST PORTABLE on DOS: 07/11/24, XY CHEST PORTABLE on DOS: 07/10/24, XY ELOISE ST XRAY 1 VIEW on DOS: 07/20/24 FINDINGS: Lines and Tubes: Tracheostomy and right central venous catheter in satisfactory position. Left PICC in satisfactory position. Lungs: Patchy bilateral airspace disease, [id number]. Pleura: Small left pleural effusion. No pneumothorax. Cardiomediastinal contours: Unremarkable Bones: Unremarkable IMPRESSION: Lines and tubes in satisfactory position. No significant interval change.
[2024-07-23 05:29] LABS: Anion Gap 4 (5-15); Chloride 101 mmol/L (98-107); Potassium 3.6 mmol/L (3.5-5.1); Sodium 140 mmol/L (136-145)
[2024-07-23 05:30] LABS: Calcium 9.5 mg/dL (8.7-10.4)
[2024-07-23 05:35] LABS: BUN/Creatinine Ratio 18.1 (10.0-20.0); Glucose 96 mg/dL (74-106); Magnesium 1.9 mg/dL (1.6-2.6)
[2024-07-23 06:00] LABS: Blood Urea Nitrogen 46 mg/dL (9-23); Carbon Dioxide 35 mmol/L (20-31)
--- NOTE | 2024-07-23 06:53 | DVHPNRES ---
Progress Note Date Seen: Jul 23, 2024 Resident Creating Document: THA CRISOSTOMO RESIDENT Has the PT tested + for MRSA If YES, has PT been informed?: Yes Medical Necessity Reason Pt with a Central, PICC or Fol: Yes The following are medically ne: Rubio Catheter Reason for rubio catheter: Strict I&O Subjective Review of Systems Patient seen and examined at the bedside. Overnight temperature 101. Started IV meropenem. Prelim blood culture 07/22-. Respiratory culture pending. Id on board Objective vital signs Vital Sign Date Time Temp Pulse Resp B/P (MAP) Pulse Ox O2 Delivery O2 Flow Rate FiO2 07/23/24 06:00 20 97 T-piece 8 35 35 07/23/24 06:00 76 07/23/24 05:46 131/63 07/23/24 04:00 98.3 98.3 Total Intake and Output 07/22/24 07/22/24 07/23/24 15:00 23:00 07:00 Intake Total 706 ml 711 ml Output Total 906 ml 50 ml Balance -200 ml 661 ml medications Current Medications Medications Dose Ordered Sig/[place] Route Start Time Stop Time Status Last Admin Dose Admin Enoxaparin Sodium 40 mg DAILY SC 06/10/24 10:00 UNV Enoxaparin Sodium 40 mg DAILY SC 06/17/24 10:00 UNV Epoetin [place]-epbx 10,000 unit TUTHSA SC 06/17/24 12:00 Hold 06/28/24 08:25 10,000 UNIT Hydralazine HCl 10 mg Q4HP PRN IV 06/24/24 16:45 07/14/24 03:49 10 MG Omeprazole 20 mg DAILY GT 06/26/24 10:00 07/22/24 09:38 20 MG Lactulose 30 ml [id number] PRN PEG 07/01/24 10:15 Metoprolol Tartrate 50 mg BID PO 07/01/24 22:00 07/22/24 21:45 50 MG Enteral Nutritional Formula 1,000 ml 60ML/HR GT 07/02/24 11:00 07/19/24 15:29 1,000 ML Clonidine HCl 0.2 mg BID PO 07/03/24 22:00 07/22/24 22:02 0.2 MG Hydralazine HCl 100 mg Q8HR PO 07/07/24 22:00 07/23/24 05:45 100 MG Heparin Sodium (Porcine) 4,000 units JACKY PRN XX 07/09/24 11:00 Amlodipine Besylate 10 mg DAILY PO 07/11/24 10:00 07/22/24 09:21 10 MG Acetylcysteine 200 mg Q6HR NEB 07/14/24 12:00 07/23/24 05:40 200 MG Albuterol 2.5 mg Q6HR NEB 07/14/24 12:00 07/23/24 05:40 2.5 MG Ipratropium [place] 0.5 mg Q6HR NEB 07/14/24 12:00 07/23/24 05:40 0.5 MG Calcium Acetate 667 mg Q8HR PEG 07/17/24 14:00 07/23/24 05:45 667 MG Bumetanide 2 mg BIDD PO 07/19/24 15:00 07/23/24 05:46 2 MG Acetaminophen 650 mg Q6HP PRN PO 07/22/24 19:53 07/22/24 21:46 650 MG Examination Patient lying in bed, in no acute distress. Patient is alert and following commands General: afebrile, palor, mucosae are moist. Resolving facial swelling. Cardiovascular: Regular S1 and S2. No murmurs, gallops or rubs. No JVD elevation. Resolving Bilateral pitting edema. Respiratory: Decreased but equal Bilateral air entry. Saturating 92% with 8 L supplementation via tracheostomy. Abdomen: Soft, nontender, nondistended, normoactive bowel sounds, no rebound tenderness, no organomegaly, no masses. Suprapubic catheter seen draining urine and colostomy bag seen draining 70 mL of orange mustard stool which is liquid in consistency. Peg tube in place. Genitourinary: Stage III sacral ulcer, skin non intact, draining pus and erythema noted. MSK/skin: Patient is moving upper extremities to commands. Skin is dry and warm Neurological: Pupils are isocoric and reactive. laboratory and microbiology Laboratory Tests 07/23/24 04:35 Test 07/23/24 04:35 Range/Units Serum Glucose 96 74-106 mg/dL Microbiology Date/Time Source Procedure Growth Status 07/18/24 22:30 Urine - Suprapubic Aspirate Urine Culture - Final Complete 06/28/24 15:27 Blood Blood Culture - Final NO GROWTH AFTER 5 DAYS OF INCUBATION. Complete 06/25/24 08:20 Catheter Site Aerobic Culture - Final Methicillin Resistant S.aureus Acinetobacter baumannii MDRO Enterococcus faecalis Complete 06/11/24 16:06 Bronchial Washings Gram Stain - Final Complete 06/11/24 16:06 Respiratory Culture - Final Acinetobacter baumannii Pseudomonas aeruginosa Complete 05/30/24 11:45 Pleural Fluid Gram Stain - Final Complete 05/30/24 11:45 Pleural Fluid Body Fluid Culture - Final Complete Labs and/or images reviewed: Labs reviewed by me, Image(s) reviewed by me Problem List/Assessment/Plan Problem List/Assessment/Plan NEURO: Acute metabolic encephalopathy likely due to sepsis History of seizure History of stroke - 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 Started clonidine 0.1 mg twice daily 07/01. Clonidine increased to 0.2 mg b.i.d. 07/03 Final blood culture 06/28 shows no growth PULMONARY: Acute Hypoxic Respiratory Failure likely due to pneumonia Septic shock likely due to pneumonia, improved Pneumonia likely due to MRSA, Pseudomonas, Acinetobacter MDRO Pneumomediastinum and pneumopericardium - Patient is sedated and mechanically ventilated with PEEP of 30% - CT scan shows [id number] left pleural effusion - MRSA nares screening, COVID-19 and flu are negative - Bronchoscopy performed on 06/11, there was some thin mucus secretion on bilateral side, bronchial lavage of right lower lobe and left lower lobe was performed, and the culture results shows Pseudomonas aeruginosa and Enterobacter baumanni, MDR; ID has been consulted - Sputum culture from bronchoalveolar lavage from 05/24/24 shows MRSA, Enterobacter cloacae - Blood culture from the 06/02/24 shows Staphylococcus epidermidis , Staph hominis - Repeat culture from 06/09/2024 shows no growth - Stopped IV linezolid, given for 11 days, discontinued meropenem, started on 06/08 and given for 12 days - started acetylcysteine nebulized 07/14 and chest physical therapy - Breathing treatment q.6 hours p.r.n. -started fentanyl patch 25 mcg 07/01 - bronchoscopy completed 07/05 showed left lower lobe atelectasis due to mucus plugging and right lower lobe mucous plugging. - 07/08 - pt desatted to 70s in the morning. CXR shows air in the subcutaneous tissues. CT chest w/o ordered, showed Pneumomediastinum and pneumopericardium. Bilateral pleural effusions, left slightly greater than right. Bilateral lower lobe opacities compatible with compressive atelectasis. o2 supp increased to 10L from 6, and fio2 increased to 100%. Pt underwent bronch,showed Left lower lobe atelectasis due to mucous plugging. Mucous plugging from L6-L10. GI - GI ppx: omeprazole 20mg daily via OG tube - Hepatitis-C virus antibody positive - Repeat stool occult blood test is negative - CT abdominopelvic without contrast shows no evidence of intra-abdominal hemorrhage - Tracheostomy is performed on 06/13 - PEG tube is placed on 06/15 - Bowel regimen: Lactulose 30 mL b.i.d. change to p.r.n. 07/01 : FROYLAN, possible VMN on ESRD requiring hemodialysis - Nephrology consulted, epoetin [place]na 35753 units SC post dialysis. Radiology for tunneled hemodialysis catheter when the blood culture negative for 72 hours - Stopped Bumix 1mg BID - creatinine increased to 3.91 from 3.64 - Homer catheter placed on left internal jugular, on 06/26, removed on 07/04 - tunneled catheter placed to the right upper chest 07/04 - hemodialysis completed 07/02 and 07/04 and 07/07, 07/09, 07/12, 07/15, 07/18 UTI, urinalysis shows UTI picture - Urine culture from 05/28/2024 shows Enterobacter, E coli, Enterococcus faecalis MUSCULOSKELETAL Status post right lower limb, above knee amputation likely due to PAD Infected Decubitus ulcer with MRSA, MDR Acinetobacter, Enterococcus - There are multiple stage 3-4 sacral ulcers draining pus - position changing every 2 hours and dressing -started fentanyl patch 25 mcg 07/01 ENDOCRINE SECONDARY HYPERPARATHYROIDISM Nephrology recommended starting calcium acetate in tube feeding, 1334mg calcium associated with each meal. HEME Severe anemia, transfused 4 pack of red blood cells Anemia of chronic disease Thrombocytopenia Macrocytic anemia - Retacrit T/TH/SAT - B12 normal, folate low normal ID: - Sputum culture from bronchoalveolar lavage from 05/24/24 shows MRSA, Enterobacter cloacae - Blood culture from the 06/02/24 shows Staphylococcus epidermidis , Staph hominis - Repeat culture from 06/09/2024 shows no growth - culture results from BAL from 06/11 shows Pseudomonas aeruginosa and Enterobacter baumanni, MDR - discontinued IV linezolid starting 06/28 and meropenem starting 06/25, discontinued in 07/03 - previously received vancomycin - catheter site culture 06/25 completed shows MRSA, Acinetobacter baumannii MDRO, Enterococcus faecalis. - repeat blood culture 07/22 prelim negative - repeat respiratory culture 07/22 pending - started IV meropenem 07/23 SKIN Possible keloid - There is a growth on the left shoulder, per son, lesion has been present for several years - Follow up on outpatient basis Metabolic: Hypernatremia, improved Hypokalemia, discontinued potassium supplementation given ESRD Hyperkalemia, albuterol, insulin d5w administered Mild hyponatremia, monitoring Hypoglycemic episodes, improved Hypomagnesemia, supplemented LINES/DRAINS/ACCESS: ETT, intubated on 05/28/2024 and tracheostomy performed on 06/11, PEG tube placed on 06/15 IV access Left internal jugular CVC, placed on 06/26 and removed on 07/04 Right IJ hemodialysis catheter placed 07/04 Suprapubic catheter, changed on 07/14/2024 Dripps: Fentanyl patch 25 mg Off pressor DIET: Jevity 1.2 john 60 mL/hour DVT prophylaxis Lovenox 30mg SC daily Disposition: social media analyst consulted for transfer to the [facility]. Will be transfered to [place] in [facility] or [facility]. critical care time including review of charts, discussing case with patient's nurse, and son excluding procedures is 52 mins CODE STATUS: Full code Plan discussed with patient and his son at bedside in which all questions have been answered. Case discussed with Dr. Isabel. Started IV meropenem. Prelim blood culture negative. Plan discussed with: Patient My Orders My Orders Orders - THA CRISOSTOMO RESIDENT Procedure Category Date Status Time Blood Culture SUZANNA 07/22/24 In Process 09:53 Respiratory Culture SUZANNA 07/22/24 Logged W/ Gs 14:34 Potassium [place] PHA 1/8/25 Transmitted KCL 07:00 Dietary Evaluation Review Comments: 1) If GI is assessible consider Jevity 1.2 @ 60 ml/hr x24 hrs goal rate as tolerated 2) If pt remains NPO >7 days consider TPN to meet at least 75% of estimated needs 3) Advance pt diet when medically feasible to a Cardiac/Renal Specific K2,2gmNA,low phos,60g Pro diet modified per CAREER PROFESSIONAL recommendations 4) Continue current plan of care Expected Outcomes/Goals: 1) Pt to receive adequate nutrition support 2) Pt diet to advance CC Plasma Assessment Blood Product Administration S: [id number] Date of Service: Jul 23, 2024 Billing Provider: HOLGER ISABEL MD Common Visit Codes: [id number] CARE 30-74 MIN THA CRISOSTOMO RESIDENT Jul 23, 2024 06:53 HOLGER ISABEL MD Jul 24, 2024 12:55
[2024-07-23] MEDS ORDERED: POTASSIUM CHL 20MEQ/100ML 100 ML IV ONE (07:00)
[2024-07-23 10:38] LABS: Hepatitis B Surface Antigen Negative (Negative)
[2024-07-23 11:01] LABS: Hepatitis B Surface Antibody Negative (Negative)
[2024-07-23] MEDS: MEROPENEM 1GM IVPB 50 ML IV ONE (11:46)
[2024-07-23 13:02] LABS: Hepatitis B Core IgM Negative (Negative)
--- NOTE | 2024-07-23 17:35 | DVHPN2 ---
Progress Note Date Seen: Jul 23, 2024 Has the PT tested + for MRSA If YES, has PT been informed?: Yes Medical Necessity Reason Pt with a Central, PICC or Fol: Yes The following are medically ne: Rubio Catheter Reason for rubio catheter: Strict I&O Subjective Patient reports: Other (cough) Review of Systems: Deferred Objective vital signs Vital Sign Date Time Temp Pulse Resp B/P (MAP) Pulse Ox O2 Delivery O2 Flow Rate FiO2 07/23/24 14:15 71 13 113/53 (73) 91 07/23/24 14:00 T-piece 8 35 35 07/23/24 12:00 97.7 97.7 Total Intake and Output 07/22/24 07/22/24 07/23/24 15:00 23:00 07:00 Intake Total 706 ml 711 ml Output Total 906 ml 50 ml Balance -200 ml 661 ml medications Current Medications Medications Dose Ordered Sig/[place] Route Start Time Stop Time Status Last Admin Dose Admin Enoxaparin Sodium 40 mg DAILY SC 06/10/24 10:00 UNV Enoxaparin Sodium 40 mg DAILY SC 06/17/24 10:00 UNV Epoetin [place]-epbx 10,000 unit TUTHSA SC 06/17/24 12:00 Hold 06/28/24 08:25 10,000 UNIT Hydralazine HCl 10 mg Q4HP PRN IV 06/24/24 16:45 07/14/24 03:49 10 MG Omeprazole 20 mg DAILY GT 06/26/24 10:00 07/23/24 10:29 20 MG Lactulose 30 ml [id number] PRN PEG 07/01/24 10:15 Metoprolol Tartrate 50 mg BID PO 07/01/24 22:00 07/23/24 09:01 50 MG Enteral Nutritional Formula 1,000 ml 60ML/HR GT 07/02/24 11:00 07/19/24 15:29 1,000 ML Clonidine HCl 0.2 mg BID PO 07/03/24 22:00 07/23/24 09:07 0.2 MG Hydralazine HCl 100 mg Q8HR PO 07/07/24 22:00 07/23/24 05:45 100 MG Heparin Sodium (Porcine) 4,000 units JACKY PRN XX 07/09/24 11:00 Amlodipine Besylate 10 mg DAILY PO 07/11/24 10:00 07/23/24 09:02 10 MG Acetylcysteine 200 mg Q6HR NEB 07/14/24 12:00 07/23/24 11:14 200 MG Albuterol 2.5 mg Q6HR NEB 07/14/24 12:00 07/23/24 11:14 2.5 MG Ipratropium [place] 0.5 mg Q6HR NEB 07/14/24 12:00 07/23/24 11:14 0.5 MG Calcium Acetate 667 mg Q8HR PEG 07/17/24 14:00 07/23/24 05:45 667 MG Bumetanide 2 mg BIDD PO 07/19/24 15:00 07/23/24 05:46 2 MG Acetaminophen 650 mg Q6HP PRN PO 07/22/24 19:53 07/22/24 21:46 650 MG Meropenem 50 ml @ 17 mls/hr Q12HR IV 07/23/24 22:00 Examination: GENERAL:Abnormal, LUNGS:Abnormal, MSK:Abnormal, NEURO:Normal laboratory and microbiology Laboratory Tests 07/23/24 04:35 Test 07/23/24 04:35 Range/Units Serum Glucose 96 74-106 mg/dL Microbiology Date/Time Source Procedure Growth Status 07/22/24 10:20 Blood Blood Culture - Preliminary NO GROWTH AFTER 24 HOURS OF INCUBATION. Resulted 07/18/24 22:30 Urine - Suprapubic Aspirate Urine Culture - Final Complete 06/25/24 08:20 Catheter Site Aerobic Culture - Final Methicillin Resistant S.aureus Acinetobacter baumannii MDRO Enterococcus faecalis Complete 06/11/24 16:06 Bronchial Washings Gram Stain - Final Complete 06/11/24 16:06 Respiratory Culture - Final Acinetobacter baumannii Pseudomonas aeruginosa Complete 05/30/24 11:45 Pleural Fluid Gram Stain - Final Complete 05/30/24 11:45 Pleural Fluid Body Fluid Culture - Final Complete Problem List/Assessment/Plan Problem List/Assessment/Plan Acute kidney injury on chronic kidney disease stage 4 -> likely septic ATN needing HD Acute respiratory failure on vent Anemia suspected due to low blood loss s/p PRBC Hypernatremia Hypokalemia Metabolic acidosis Chronic urinary retention sepsis due to bacteremia recs HD sunday desaturation episodes on last HD will f/u Plan discussed with: Other Dietary Evaluation Review Comments: 1) If GI is assessible consider Jevity 1.2 @ 60 ml/hr x24 hrs goal rate as tolerated 2) If pt remains NPO >7 days consider TPN to meet at least 75% of estimated needs 3) Advance pt diet when medically feasible to a Cardiac/Renal Specific K2,2gmNA,low phos,60g Pro diet modified per ADMIN ASSISTANT recommendations 4) Continue current plan of care Expected Outcomes/Goals: 1) Pt to receive adequate nutrition support 2) Pt diet to advance CC Plasma Assessment Blood Product Administration S: [id number] SUKI MERINO MD Jul 23, 2024 17:35
[2024-07-23] MEDS: MEROPENEM 500MG IVPB 50 ML IV SCH (21:41)
[2024-07-24] VITALS (106 sets, daily range): BP systolic 114–170; BP diastolic 44–71; PULSE 63–123; RESP 10–28; TEMP 98.4–99; O2SAT 83–99
--- NOTE | 2024-07-24 05:07 | DVH ---
CHEST RADIOGRAPH Indication: TRACH Technique: Single frontal view of the chest was obtained COMPARISON: XY CHEST PORTABLE on DOS: 07/23/24, XY CHEST XRAY 1 VIEW on DOS: 07/20/24, XY CHEST XRAY 1 EW on DOS: 07/15/24, XY CHEST PORTABLE on DOS: 07/12/24, XY CHEST PORTABLE on DOS: 07/11/24 FINDINGS: Lines and Tubes: Tracheostomy, left PICC and right central venous catheter is in satisfactory positio n. Lungs: Decreased left lung aeration. Pleura: Small left pleural effusion. No pneumothorax. Cardiomediastinal contours: Unremarkable Bones: Unremarkable IMPRESSION: Decreased left lung aeration.
[2024-07-24 05:19] LABS: Basophils # (auto) 0 10 ^3/uL (0-0.2); Monocytes # (auto) 0.4 10 ^3/uL (0-1.3)
[2024-07-24 05:24] LABS: Basophils % (auto) 0.5 % (0.0-2.0); Eosinophils # (auto) 0.4 10 ^3/uL (0-0.8); Eosinophils % (auto) 4.8 % (0.0-7.0); Hematocrit 21.4 % (41.0-53.0); Mean Corpuscular Hemoglobin 31.7 pg (28.0-32.0); Mean Corpuscular Hgb Conc. 32.4 g/dL (32.0-36.0); Mean Corpuscular Volume 97.9 fL (80.0-100.0); Monocytes % (auto) 5.9 % (0.0-12.0); Neutrophils # (auto) 5.7 10 ^3/uL (1.6-8.6); Neutrophils % (auto) 75.8 % (37.0-80.0); Platelet Count (auto) 199 10^3/uL (140-450); Red Blood Cells 2.18 10^6/uL (4.5-5.90); Red Cell Distribution Width 18.8 % (11.8-14.3); White Blood Cell 7.5 10^3/uL (4.4-10.8)
[2024-07-24 05:30] LABS: Chloride 100 mmol/L (98-107); Sodium 139 mmol/L (136-145)
[2024-07-24 05:31] LABS: Anion Gap 7 (5-15)
[2024-07-24 05:32] LABS: Calcium 9.4 mg/dL (8.7-10.4)
[2024-07-24 05:37] LABS: BUN/Creatinine Ratio 18.8 (10.0-20.0); Glucose 102 mg/dL (74-106)
[2024-07-24 05:42] LABS: Blood Urea Nitrogen 59 mg/dL (9-23); Carbon Dioxide 32 mmol/L (20-31)
[2024-07-24 05:45] LABS: Hemoglobin 6.9 g/dL (13.5-17.5)
--- NOTE | 2024-07-24 07:00 | DVHPNRES ---
Progress Note Date Seen: Jul 24, 2024 Resident Creating Document: THA CRISOSTOMO RESIDENT Has the PT tested + for MRSA If YES, has PT been informed?: Yes Medical Necessity Reason Pt with a Central, PICC or Fol: Yes The following are medically ne: Rubio Catheter Reason for rubio catheter: Strict I&O Subjective Review of Systems Patient seen and examined at the bedside. Now on 12 L oxygen supplementation, saturating 99%. Hemodialysis tomorrow. Chest x-ray shows worsened left-sided infiltrate. 1 unit of the packed RBC. Blood culture pending. Consulted Dr. Kinney for bronchoscopy Objective vital signs Vital Sign Date Time Temp Pulse Resp B/P (MAP) Pulse Ox O2 Delivery O2 Flow Rate FiO2 07/24/24 06:45 75 22 151/60 (90) 97 07/24/24 06:19 Trach Collar 12 40 Cool Aerosol 40 07/24/24 04:00 98.7 98.7 Total Intake and Output 07/23/24 07/23/24 07/24/24 15:00 23:00 07:00 Intake Total 49.8 ml 34 ml 646 ml Output Total 50 ml 50 ml Balance 49.8 ml -16 ml 596 ml medications Current Medications Medications Dose Ordered Sig/[place] Route Start Time Stop Time Status Last Admin Dose Admin Enoxaparin Sodium 40 mg DAILY SC 06/10/24 10:00 UNV Enoxaparin Sodium 40 mg DAILY SC 06/17/24 10:00 UNV Epoetin Morena-epbx 10,000 unit TUTHSA SC 06/17/24 12:00 Hold 06/28/24 08:25 10,000 UNIT Hydralazine HCl 10 mg Q4HP PRN IV 06/24/24 16:45 07/14/24 03:49 10 MG Omeprazole 20 mg DAILY GT 06/26/24 10:00 07/23/24 10:29 20 MG Lactulose 30 ml [id number] PRN PEG 07/01/24 10:15 Metoprolol Tartrate 50 mg BID PO 07/01/24 22:00 07/23/24 21:40 50 MG Enteral Nutritional Formula 1,000 ml 60ML/HR GT 07/02/24 11:00 07/19/24 15:29 1,000 ML Clonidine HCl 0.2 mg BID PO 07/03/24 22:00 07/23/24 21:40 0.2 MG Hydralazine HCl 100 mg Q8HR PO 07/07/24 22:00 07/24/24 06:03 100 MG Heparin Sodium (Porcine) 4,000 units JACKY PRN XX 07/09/24 11:00 Amlodipine Besylate 10 mg DAILY PO 07/11/24 10:00 07/23/24 09:02 10 MG Acetylcysteine 200 mg Q6HR NEB 07/14/24 12:00 07/24/24 06:18 200 MG Albuterol 2.5 mg Q6HR NEB 07/14/24 12:00 07/24/24 06:18 2.5 MG Ipratropium Daphne 0.5 mg Q6HR NEB 07/14/24 12:00 07/24/24 06:17 0.5 MG Calcium Acetate 667 mg Q8HR PEG 07/17/24 14:00 07/24/24 05:46 667 MG Bumetanide 2 mg BIDD PO 07/19/24 15:00 07/23/24 18:46 2 MG Acetaminophen 650 mg Q6HP PRN PO 07/22/24 19:53 07/22/24 21:46 650 MG Meropenem 50 ml @ 17 mls/hr Q12HR IV 07/23/24 22:00 07/23/24 21:41 17 MLS/HR Examination Patient lying in bed, in no acute distress. Patient is alert and following commands General: afebrile, palor, mucosae are moist. Resolving facial swelling. Cardiovascular: Regular S1 and S2. No murmurs, gallops or rubs. No JVD elevation. Resolving Bilateral pitting edema. Respiratory: Decreased left-sided breath sounds.. Saturating 98% with 12L supplementation via tracheostomy. Abdomen: Soft, nontender, nondistended, normoactive bowel sounds, no rebound tenderness, no organomegaly, no masses. Suprapubic catheter seen draining urine and colostomy bag seen draining 70 mL of orange mustard stool which is liquid in consistency. Peg tube in place. Genitourinary: Stage III sacral ulcer, skin non intact, draining pus and erythema noted. MSK/skin: Patient is moving upper extremities to commands. Skin is dry and warm Neurological: Pupils are isocoric and reactive. laboratory and microbiology Laboratory Tests 07/24/24 04:46 Test 07/24/24 04:46 Range/Units Serum Glucose 102 74-106 mg/dL Microbiology Date/Time Source Procedure Growth Status 07/22/24 10:20 Blood Blood Culture - Preliminary NO GROWTH AFTER 24 HOURS OF INCUBATION. Resulted 07/18/24 22:30 Urine - Suprapubic Aspirate Urine Culture - Final Complete 06/25/24 08:20 Catheter Site Aerobic Culture - Final Methicillin Resistant S.aureus Acinetobacter baumannii MDRO Enterococcus faecalis Complete 06/11/24 16:06 Bronchial Washings Gram Stain - Final Complete 06/11/24 16:06 Respiratory Culture - Final Acinetobacter baumannii Pseudomonas aeruginosa Complete 05/30/24 11:45 Pleural Fluid Gram Stain - Final Complete 05/30/24 11:45 Pleural Fluid Body Fluid Culture - Final Complete Labs and/or images reviewed: Labs reviewed by me, Image(s) reviewed by me Problem List/Assessment/Plan Problem List/Assessment/Plan NEURO: Acute metabolic encephalopathy likely due to sepsis History of seizure History of stroke - 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 Started clonidine 0.1 mg twice daily 07/01. Clonidine increased to 0.2 mg b.i.d. 07/03 Final blood culture 06/28 shows no growth PULMONARY: Acute Hypoxic Respiratory Failure likely due to pneumonia Septic shock likely due to pneumonia, improved Pneumonia likely due to MRSA, Acinetobacter MDRO, Pseudomonas Left Lobar pneumonia Pneumomediastinum and pneumopericardium - Patient is sedated and mechanically ventilated with PEEP of 30% - CT scan shows [id number] left pleural effusion - MRSA nares screening, COVID-19 and flu are negative - Bronchoscopy performed on 06/11, there was some thin mucus secretion on bilateral side, bronchial lavage of right lower lobe and left lower lobe was performed, and the culture results shows Pseudomonas aeruginosa and Enterobacter baumanni, MDR; ID has been consulted - Sputum culture from bronchoalveolar lavage from 05/24/24 shows MRSA, Enterobacter cloacae - Blood culture from the 06/02/24 shows Staphylococcus epidermidis , Staph hominis - Repeat culture from 06/09/2024 shows no growth - Stopped IV linezolid, given for 11 days, discontinued meropenem, started on 06/08 and given for 12 days - started acetylcysteine nebulized 07/14 and chest physical therapy - Breathing treatment q.6 hours p.r.n. -started fentanyl patch 25 mcg 07/01 - bronchoscopy completed 07/05 showed left lower lobe atelectasis due to mucus plugging and right lower lobe mucous plugging. - 07/08 - pt desatted to 70s in the morning. CXR shows air in the subcutaneous tissues. CT chest w/o ordered, showed Pneumomediastinum and pneumopericardium. Bilateral pleural effusions, left slightly greater than right. Bilateral lower lobe opacities compatible with compressive atelectasis. o2 supp increased to 10L from 6, and fio2 increased to 100%. Pt underwent bronch,showed Left lower lobe atelectasis due to mucous plugging. Mucous plugging from L6-L10. -started IV meropenem 07/23 GI - GI ppx: omeprazole 20mg daily via OG tube - Hepatitis-C virus antibody positive - Repeat stool occult blood test is negative - CT abdominopelvic without contrast shows no evidence of intra-abdominal hemorrhage - Tracheostomy is performed on 06/13 - PEG tube is placed on 06/15 - Bowel regimen: Lactulose 30 mL b.i.d. change to p.r.n. 07/01 : FROYLAN, possible VMN on ESRD requiring hemodialysis - Nephrology consulted, epoetin morena 49959 units SC post dialysis. Radiology for tunneled hemodialysis catheter when the blood culture negative for 72 hours - Stopped Bumix 1mg BID - creatinine increased to 3.91 from 3.64 - Homer catheter placed on left internal jugular, on 06/26, removed on 07/04 - tunneled catheter placed to the right upper chest 07/04 - hemodialysis completed 07/02 and 07/04 and 07/07, 07/09, 07/12, 07/15, 07/18 UTI, urinalysis shows UTI picture - Urine culture from 05/28/2024 shows Enterobacter, E coli, Enterococcus faecalis MUSCULOSKELETAL Status post right lower limb, above knee amputation likely due to PAD Decubitus ulcer - There are multiple stage 3-4 sacral ulcers draining pus - position changing every 2 hours and dressing -started fentanyl patch 25 mcg 07/01 ENDOCRINE SECONDARY HYPERPARATHYROIDISM Nephrology recommended starting calcium acetate in tube feeding, 1334mg calcium associated with each meal. HEME Severe anemia, transfused 5 pack of red blood cells Anemia of chronic disease Thrombocytopenia Macrocytic anemia - Retacrit T/TH/SAT - B12 normal, folate low normal ID: - Sputum culture from bronchoalveolar lavage from 05/24/24 shows MRSA, Enterobacter cloacae - Blood culture from the 06/02/24 shows Staphylococcus epidermidis , Staph hominis - Repeat culture from 06/09/2024 shows no growth - culture results from BAL from 06/11 shows Pseudomonas aeruginosa and Enterobacter baumanni, MDR - discontinued IV linezolid starting 06/28 and meropenem starting 06/25, discontinued in 07/03 - previously received vancomycin - catheter site culture 06/25 completed shows MRSA, Acinetobacter baumannii MDRO, Enterococcus faecalis. - repeat blood culture 07/22 prelim negative - repeat respiratory culture 07/22 pending - started IV meropenem 07/23 SKIN Possible keloid - There is a growth on the left shoulder, per son, lesion has been present for several years - Follow up on outpatient basis Metabolic: Hypernatremia, improved Hypokalemia, discontinued potassium supplementation given ESRD Hyperkalemia, albuterol, insulin d5w administered Mild hyponatremia, monitoring Hypoglycemic episodes, improved Hypomagnesemia, supplemented LINES/DRAINS/ACCESS: ETT, intubated on 05/28/2024 and tracheostomy performed on 06/11, PEG tube placed on 06/15 IV access Left internal jugular CVC, placed on 06/26 and removed on 07/04 Right IJ hemodialysis catheter placed 07/04 Suprapubic catheter, changed on 07/14/2024 Dripps: Fentanyl patch 25 mg Off pressor DIET: Jevity 1.2 john 60 mL/hour DVT prophylaxis Lovenox 30mg SC daily Disposition: older adult social work specialist consulted for transfer to the [facility]. Will be transfered to [place] in [facility] or [facility]. critical care time including review of charts, discussing case with patient's nurse, and son excluding procedures is 42 mins CODE STATUS: Full code Plan discussed with patient and his son at bedside in which all questions have been answered. Case discussed with Dr. Isabel. Worsening left lobar infiltrate. Prelim blood culture negative. Consulted Dr. Kinney for bronchoscopy. Hemodialysis tomorrow. Plan discussed with: Patient Dietary Evaluation Review Comments: 1) If GI is assessible consider Jevity 1.2 @ 60 ml/hr x24 hrs goal rate as tolerated 2) If pt remains NPO >7 days consider TPN to meet at least 75% of estimated needs 3) Advance pt diet when medically feasible to a Cardiac/Renal Specific K2,2gmNA,low phos,60g Pro diet modified per BRAINER recommendations 4) Continue current plan of care Expected Outcomes/Goals: 1) Pt to receive adequate nutrition support 2) Pt diet to advance CC Plasma Assessment Blood Product Administration S: [id number] Date of Service: Jul 24, 2024 Billing Provider: HOLGER ISABEL MD Common Visit Codes: [id number] CARE 30-74 MIN THA CRISOSTOMO RESIDENT Jul 24, 2024 07:00 HOLGER ISABEL MD Jul 27, 2024 17:24
--- NOTE | 2024-07-24 13:45 | DVHPN2 ---
Progress Note Date Seen: Jul 24, 2024 Has the PT tested + for MRSA If YES, has PT been informed?: Yes Medical Necessity Reason Pt with a Central, PICC or Fol: Yes The following are medically ne: Rubio Catheter Reason for rubio catheter: Strict I&O Subjective Patient reports: No new complaints Review of Systems: Deferred Objective vital signs Vital Sign Date Time Temp Pulse Resp B/P (MAP) Pulse Ox O2 Delivery O2 Flow Rate FiO2 07/24/24 13:30 75 22 132/61 (84) 95 07/24/24 12:14 Cool Aerosol 10 35 35 07/24/24 12:00 98.7 98.7 Total Intake and Output 07/23/24 07/23/24 07/24/24 15:00 23:00 07:00 Intake Total 49.8 ml 34 ml 646 ml Output Total 50 ml 50 ml Balance 49.8 ml -16 ml 596 ml medications Current Medications Medications Dose Ordered Sig/[place] Route Start Time Stop Time Status Last Admin Dose Admin Enoxaparin Sodium 40 mg DAILY SC 06/10/24 10:00 UNV Enoxaparin Sodium 40 mg DAILY SC 06/17/24 10:00 UNV Epoetin Calin-epbx 10,000 unit TUTHSA SC 06/17/24 12:00 Hold 06/28/24 08:25 10,000 UNIT Hydralazine HCl 10 mg Q4HP PRN IV 06/24/24 16:45 07/14/24 03:49 10 MG Omeprazole 20 mg DAILY GT 06/26/24 10:00 07/24/24 10:34 20 MG Lactulose 30 ml [id number] PRN PEG 07/01/24 10:15 Metoprolol Tartrate 50 mg BID PO 07/01/24 22:00 07/24/24 10:15 50 MG Enteral Nutritional Formula 1,000 ml 60ML/HR GT 07/02/24 11:00 07/19/24 15:29 1,000 ML Clonidine HCl 0.2 mg BID PO 07/03/24 22:00 07/24/24 10:14 0.2 MG Hydralazine HCl 100 mg Q8HR PO 07/07/24 22:00 07/24/24 13:23 100 MG Heparin Sodium (Porcine) 4,000 units JAKCY PRN XX 07/09/24 11:00 Amlodipine Besylate 10 mg DAILY PO 07/11/24 10:00 07/24/24 10:15 10 MG Acetylcysteine 200 mg Q6HR NEB 07/14/24 12:00 07/24/24 12:14 200 MG Albuterol 2.5 mg Q6HR NEB 07/14/24 12:00 07/24/24 12:14 2.5 MG Ipratropium Irving 0.5 mg Q6HR NEB 07/14/24 12:00 07/24/24 12:14 0.5 MG Calcium Acetate 667 mg Q8HR PEG 07/17/24 14:00 07/24/24 13:23 667 MG Bumetanide 2 mg BIDD PO 07/19/24 15:00 07/24/24 07:56 2 MG Acetaminophen 650 mg Q6HP PRN PO 07/22/24 19:53 07/22/24 21:46 650 MG Meropenem 50 ml @ 17 mls/hr Q12HR IV 07/23/24 22:00 07/24/24 10:15 17 MLS/HR Examination: LUNGS:Abnormal, MSK:Abnormal, NEURO:Normal laboratory and microbiology Laboratory Tests 07/24/24 04:46 Test 07/24/24 04:46 Range/Units Serum Glucose 102 74-106 mg/dL Microbiology Date/Time Source Procedure Growth Status 07/22/24 10:20 Blood Blood Culture - Preliminary NO GROWTH AFTER 48 HOURS OF INCUBATION. Resulted 07/18/24 22:30 Urine - Suprapubic Aspirate Urine Culture - Final Complete 06/25/24 08:20 Catheter Site Aerobic Culture - Final Methicillin Resistant S.aureus Acinetobacter baumannii MDRO Enterococcus faecalis Complete 06/11/24 16:06 Bronchial Washings Gram Stain - Final Complete 06/11/24 16:06 Respiratory Culture - Final Acinetobacter baumannii Pseudomonas aeruginosa Complete 05/30/24 11:45 Pleural Fluid Gram Stain - Final Complete 05/30/24 11:45 Pleural Fluid Body Fluid Culture - Final Complete Problem List/Assessment/Plan Problem List/Assessment/Plan Acute kidney injury on chronic kidney disease stage 4 -> likely septic ATN needing HD Acute respiratory failure on vent Anemia suspected due to low blood loss s/p PRBC Hypernatremia Hypokalemia Metabolic acidosis Chronic urinary retention sepsis due to bacteremia recs HD sunday pending DC to [facility] Plan discussed with: Other Dietary Evaluation Review Comments: 1) If GI is assessible consider Jevity 1.2 @ 60 ml/hr x24 hrs goal rate as tolerated 2) If pt remains NPO >7 days consider TPN to meet at least 75% of estimated needs 3) Advance pt diet when medically feasible to a Cardiac/Renal Specific K2,2gmNA,low phos,60g Pro diet modified per FLAT BED KNITTER recommendations 4) Continue current plan of care Expected Outcomes/Goals: 1) Pt to receive adequate nutrition support 2) Pt diet to advance CC Plasma Assessment Blood Product Administration S: [id number] SUKI MERINO MD Jul 24, 2024 13:45
--- NOTE | 2024-07-24 19:53 | DVHNC2 ---
Procedure - Bronchoscopy procedure note: Indications: Left lower lobe atelectasis, Possible mucous plugging. Medicines: See CERAMIC TILER notes. Complications: None Procedure: Patient medications and allergies reviewed. The risks and benefits of the procedure and the sedation options and risk were discussed with the patient's healthcare proxy. All questions were answered and informed consent was obtained. Patient identification and proposed procedure were verified prior to the procedure by the physician, and a nurse, and the respiratory therapist in ICU room. The heart rate, respiratory rate, oxygen saturations, blood pressure, adequacy of pulmonary ventilation, and response to care were monitored throughout the procedure. The physical status of the patient was reassessed after the procedure. After obtaining informed consent, the bronchoscope was introduced through the endotracheal tube and advanced into the trachea bronchial tree of both lungs. The procedure was accomplished without difficulty. The patient tolerated the procedure well. Findings: The trachea is in normal caliber. The chacho is sharp. The tracheobronchial tree of the right lung was examined to at least the first subsegmental level. The bronchial mucosa and anatomy in the right lung are normal. There are no endobronchial lesions. There was copious whitish secretions from right main stem bronchus onward throughout R6-R10. The left upper lobe, lingula, and left lower lobe were examined to at least the first subsegmental level. Bronchial mucosa and anatomy in the left upper lobe and lingula are normal. There were no endobronchial lesions. There was copious whitish secretions from left main stem bronchus onward throughout L6-L10. Mucous plugging removed from L6-L10. Left lower lobe (LLL) Bronchoalveolar lavage (BAL) obtained. LLL BAL sent for gram stain and culture. There was no active bleeding at the completion of the procedure. Estimated blood loss: Less than 5 mL. Impression: Right and Left lower lobe atelectasis due to mucous plugging Mucous plugging from L6-L10 and R6-R10 LLL BAL performed Recommendation: Follow-up LLL BAL results. Procedure codes: 10392, bronchoscopy, rigid and flexible, including fluoroscopic guidance, one performed; with bronchial endobronchial removal of mucous plugging, single or multiple sites ELIANE ALTAMIRANO MD Jul 24, 2024 19:53
[2024-07-24 20:08] LABS: Hematocrit 24.5 % (41.0-53.0); Hemoglobin 8.4 g/dL (13.5-17.5)
--- NOTE | 2024-07-24 21:46 | DVH ---
CHEST RADIOGRAPH Indication: post bronch Technique: Single frontal view of the chest was obtained Comparison: XY CHEST PORTABLE on DOS: 07/24/24, XY CHEST PORTABLE on DOS: 07/23/24, XY CHEST XRAY 1 VIEW on DOS: 07/20/24 FINDINGS: Lines and Tubes: Right internal jugular catheter in place at the cavoatrial junction. Lungs: 30-40% left pneumothorax correlate with patient clinical condition. Pleura: No effusion. Cardiomediastinal contours: Unremarkable Bones: No acute osseous abnormality. IMPRESSION: 1. 30-40% left pneumothorax. 2. Right internal jugular catheter in good position. CRITICAL FINDINGS [Critical Findings] Critical Result: LEFT PNEUMOTHORAX POST BRONCH Findings discussed with MARCO A TOSCANO , at 07/24/2024 09:22 PM, and acknowledged receipt and understanding of the findings. ..
--- NOTE | 2024-07-24 23:41 | DVH ---
CT Chest without intravenous contrast INDICATION: POSSIBLE LEFT SIDED PNEUMOTHORAX TECHNIQUE: Multidetector spiral CT of the chest was performed from the lung apices to the upper abdom en. Axial, coronal and sagittal multiplanar reformats were performed. Radiation Dose : 1. Chest: CTDI volume is 9 mGy. Dose-length product is 341 mGy*cm The dose indicators for CT are the volume Computed Tomography (CT) Dose Index (CTDIvol) and the Dose Length Product (DLP), and are measured in units of mGy and mGy-cm, respectively. These indicators are not patient dose, but values generated from the CT scanner acquisition factors. The report includes radiation exposure data for exposures received during this examination. Comparison: CT CHEST WITHOUT CONTRAST on DOS: 07/08/24, CT HEAD WITHOUT CONTRAST on DOS: 05/28/24, CT HEAD WITHOUT CONTRAST on DOS: 03/28/24 Findings: Tracheostomy tube appears in proper position. Right IJ catheter with tip terminating near t he cavoatrial junction. Sided PICC with tip terminating in the SVC. Lower neck: Within normal limits Lungs: Scattered ground-glass opacities throughout the bilateral lungs. Heart/Vascular Structures: Moderate calcifications of the coronary vessels. Lymph Nodes: No adenopathy Pleura: Large left-sided pleural effusion with adjacent compressive atelectasis. Musculoskeletal: Partially visualized lower thoracic and lumbar hardware. Body wall: Within normal limits Upper abdomen: Limited evaluation due to patient positioning. Atrophic right kidney. 2 cm left renal hypodensity. Cholelithiasis. IMPRESSION: 1. Large left-sided pleural effusion with adjacent compressive atelectasis. No pneumothorax is identi fied. 2. Scattered bilateral ground-glass opacities concerning for atypical infectious process. Ancillary f indings as described above.
[2024-07-25] VITALS (92 sets, daily range): BP systolic 108–154; BP diastolic 54–91; PULSE 64–119; RESP 14–37; TEMP 98.2–99; O2SAT 84–99
--- NOTE | 2024-07-25 06:01 | DVH ---
CHEST RADIOGRAPH Indication: PLEURAL EFFUSION Technique: Single frontal view of the chest was obtained COMPARISON: XY CHEST XRAY 1 VIEW on DOS: 07/24/24, XY CHEST PORTABLE on DOS: 07/24/24, XY CHEST PORTABLE on DOS: 07/23/24, XY CHEST XRAY 1 VIEW on DOS: 07/20/24, XY CHEST XRAY 1 VIEW on DOS: 07/15/24 FINDINGS: Lines and Tubes: Tracheostomy, left PICC and right central venous catheter in satisfactory position. Lungs: Congestion Pleura: Small left pleural effusion No pneumothorax. Cardiomediastinal contours: Unremarkable Bones: Unremarkable IMPRESSION: Congestion and small left pleural effusion.
[2024-07-25 07:22] LABS: Basophils # (auto) 0.1 10 ^3/uL (0-0.2); Eosinophils # (auto) 0.4 10 ^3/uL (0-0.8); Hemoglobin 8.3 g/dL (13.5-17.5); Monocytes # (auto) 0.4 10 ^3/uL (0-1.3)
[2024-07-25 07:25] LABS: Anion Gap 8 (5-15); Carbon Dioxide 31 mmol/L (20-31); Chloride 100 mmol/L (98-107); Sodium 139 mmol/L (136-145)
[2024-07-25 07:26] LABS: Calcium 9.4 mg/dL (8.7-10.4)
[2024-07-25 07:27] LABS: Basophils % (auto) 0.8 % (0.0-2.0); Eosinophils % (auto) 6.2 % (0.0-7.0); Hematocrit 24.8 % (41.0-53.0); Lymphocytes # (auto) 0.7 10 ^3/uL (0.4-5.4); Lymphocytes % (auto) 10.1 % (10.0-50.0); Mean Corpuscular Hemoglobin 32.4 pg (28.0-32.0); Mean Corpuscular Hgb Conc. 33.5 g/dL (32.0-36.0); Mean Corpuscular Volume 96.6 fL (80.0-100.0); Monocytes % (auto) 5.5 % (0.0-12.0); Neutrophils # (auto) 5.2 10 ^3/uL (1.6-8.6); Neutrophils % (auto) 77.4 % (37.0-80.0); Nucleated Red Blood Cells % 0.1 %; Platelet Count (auto) 211 10^3/uL (140-450); Red Blood Cells 2.57 10^6/uL (4.5-5.90); Red Cell Distribution Width 17.9 % (11.8-14.3); White Blood Cell 6.7 10^3/uL (4.4-10.8)
[2024-07-25 07:31] LABS: BUN/Creatinine Ratio 20.1 (10.0-20.0); Glucose 102 mg/dL (74-106)
[2024-07-25 07:32] LABS: Magnesium 2.2 mg/dL (1.6-2.6)
[2024-07-25 07:36] LABS: Blood Urea Nitrogen 73 mg/dL (9-23)
[2024-07-25] MEDS: fentaNYL 25MCG/HR 25 MCG/HR PAT TD ONE (14:06)
--- NOTE | 2024-07-25 15:11 | DVHPNRES ---
Progress Note Date Seen: Jul 25, 2024 Resident Creating Document: THA CRISOSTOMO RESIDENT Has the PT tested + for MRSA If YES, has PT been informed?: Yes Medical Necessity Reason Pt with a Central, PICC or Fol: Yes The following are medically ne: Rubio Catheter Reason for rubio catheter: Strict I&O Subjective Review of Systems Patient seen and assessed at the bedside. Bronchoscopy completed 07/24 - Right and Left lower lobe atelectasis due to mucous plugging. Mucous plugging from L6-L10 and R6-R10. On fent 25mcg patch. Resp gram stain 07/24 shows G positive rods, culture pending Prelim blood culture negative 07/22 Objective vital signs Vital Sign Date Time Temp Pulse Resp B/P (MAP) Pulse Ox O2 Delivery O2 Flow Rate FiO2 07/25/24 14:06 142/79 07/25/24 11:08 79 26 96 07/25/24 11:00 T-piece 10.0 07/25/24 11:00 N/A 07/25/24 08:00 98.2 98.2 Total Intake and Output 07/24/24 07/24/24 07/25/24 15:00 23:00 07:00 Intake Total 350 ml 300 ml 444 ml Output Total 175 ml 150 ml Balance 350 ml 125 ml 294 ml medications Current Medications Medications Dose Ordered Sig/[place] Route Start Time Stop Time Status Last Admin Dose Admin Enoxaparin Sodium 40 mg DAILY SC 06/10/24 10:00 UNV Enoxaparin Sodium 40 mg DAILY SC 06/17/24 10:00 UNV Epoetin [place]-epbx 10,000 unit TUTHSA SC 06/17/24 12:00 Hold 06/28/24 08:25 10,000 UNIT Omeprazole 20 mg DAILY GT 06/26/24 10:00 07/25/24 14:06 20 MG Lactulose 30 ml [id number] PRN PEG 07/01/24 10:15 Metoprolol Tartrate 50 mg BID PO 07/01/24 22:00 07/24/24 21:20 50 MG Enteral Nutritional Formula 1,000 ml 60ML/HR GT 07/02/24 11:00 07/19/24 15:29 1,000 ML Clonidine HCl 0.2 mg BID PO 07/03/24 22:00 07/24/24 21:20 0.2 MG Hydralazine HCl 100 mg Q8HR PO 07/07/24 22:00 07/25/24 14:02 100 MG Heparin Sodium (Porcine) 4,000 units JACKY PRN XX 07/09/24 11:00 Amlodipine Besylate 10 mg DAILY PO 07/11/24 10:00 07/24/24 10:15 10 MG Acetylcysteine 200 mg Q6HR NEB 07/14/24 12:00 07/25/24 11:00 200 MG Albuterol 2.5 mg Q6HR NEB 07/14/24 12:00 07/25/24 11:00 2.5 MG Ipratropium [place] 0.5 mg Q6HR NEB 07/14/24 12:00 07/25/24 11:00 0.5 MG Calcium Acetate 667 mg Q8HR PEG 07/17/24 14:00 07/25/24 14:07 667 MG Bumetanide 2 mg BIDD PO 07/19/24 15:00 07/24/24 16:59 2 MG Acetaminophen 650 mg Q6HP PRN PO 07/22/24 19:53 07/25/24 04:52 650 MG Meropenem 50 ml @ 17 mls/hr Q12HR IV 07/23/24 22:00 07/25/24 14:03 17 MLS/HR Examination Patient lying in bed, in no acute distress. Patient is alert and following commands General: afebrile, palor, mucosae are moist. Resolving facial swelling. Cardiovascular: Regular S1 and S2. No murmurs, gallops or rubs. No JVD elevation. Resolving Bilateral pitting edema. Respiratory: Decreased left-sided breath sounds.. Saturating 98% with 10L supplementation via tracheostomy. Abdomen: Soft, nontender, nondistended, normoactive bowel sounds, no rebound tenderness, no organomegaly, no masses. Suprapubic catheter seen draining urine and colostomy bag seen draining 70 mL of orange mustard stool which is liquid in consistency. Peg tube in place. Genitourinary: Stage III sacral ulcer, skin non intact, draining pus and erythema noted. MSK/skin: Patient is moving upper extremities to commands. Skin is dry and warm Neurological: Pupils are isocoric and reactive. laboratory and microbiology Laboratory Tests 07/25/24 05:08 Test 07/25/24 05:08 Range/Units Serum Glucose 102 74-106 mg/dL Microbiology Date/Time Source Procedure Growth Status 07/24/24 18:34 Trachea Gram Stain - Final Resulted 07/24/24 18:34 Trachea Respiratory Culture - Preliminary Resulted 07/22/24 10:20 Blood Blood Culture - Preliminary NO GROWTH AFTER 72 HOURS OF INCUBATION. Resulted 07/18/24 22:30 Urine - Suprapubic Aspirate Urine Culture - Final Complete 06/11/24 16:06 Bronchial Washings Gram Stain - Final Complete 06/11/24 16:06 Respiratory Culture - Final Acinetobacter baumannii Pseudomonas aeruginosa Complete 05/30/24 11:45 Pleural Fluid Gram Stain - Final Complete 05/30/24 11:45 Pleural Fluid Body Fluid Culture - Final Complete Labs and/or images reviewed: Labs reviewed by me, Image(s) reviewed by me Problem List/Assessment/Plan Problem List/Assessment/Plan NEURO: Acute metabolic encephalopathy likely due to sepsis History of seizure History of stroke - 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 Started clonidine 0.1 mg twice daily 07/01. Clonidine increased to 0.2 mg b.i.d. 07/03 Final blood culture 06/28 shows no growth PULMONARY: Acute Hypoxic Respiratory Failure likely due to pneumonia Septic shock likely due to pneumonia, improved Pneumonia likely due to MRSA, Acinetobacter MDRO, Pseudomonas Left Lobar pneumonia Pneumomediastinum and pneumopericardium Left lobar atelectasis - Patient is sedated and mechanically ventilated with PEEP of 30% - CT scan shows [id number] left pleural effusion - MRSA nares screening, COVID-19 and flu are negative - Bronchoscopy performed on 06/11, there was some thin mucus secretion on bilateral side, bronchial lavage of right lower lobe and left lower lobe was performed, and the culture results shows Pseudomonas aeruginosa and Enterobacter baumanni, MDR; ID has been consulted - Sputum culture from bronchoalveolar lavage from 05/24/24 shows MRSA, Enterobacter cloacae - Blood culture from the 06/02/24 shows Staphylococcus epidermidis , Staph hominis - Repeat culture from 06/09/2024 shows no growth - Stopped IV linezolid, given for 11 days, discontinued meropenem, started on 06/08 and given for 12 days - started acetylcysteine nebulized 07/14 and chest physical therapy - Breathing treatment q.6 hours p.r.n. -started fentanyl patch 25 mcg 07/01 - bronchoscopy completed 07/05 showed left lower lobe atelectasis due to mucus plugging and right lower lobe mucous plugging. - 07/08 - pt desatted to 70s in the morning. CXR shows air in the subcutaneous tissues. CT chest w/o ordered, showed Pneumomediastinum and pneumopericardium. Bilateral pleural effusions, left slightly greater than right. Bilateral lower lobe opacities compatible with compressive atelectasis. o2 supp increased to 10L from 6, and fio2 increased to 100%. Pt underwent bronch,showed Left lower lobe atelectasis due to mucous plugging. Mucous plugging from L6-L10. -started IV meropenem 07/23 GI - GI ppx: omeprazole 20mg daily via OG tube - Hepatitis-C virus antibody positive - Repeat stool occult blood test is negative - CT abdominopelvic without contrast shows no evidence of intra-abdominal hemorrhage - Tracheostomy is performed on 06/13 - PEG tube is placed on 06/15 - Bowel regimen: Lactulose 30 mL b.i.d. change to p.r.n. 07/01 : FROYLAN, possible VMN on ESRD requiring hemodialysis - Nephrology consulted, epoetin morena 82619 units SC post dialysis. Radiology for tunneled hemodialysis catheter when the blood culture negative for 72 hours - Stopped Bumix 1mg BID - creatinine increased to 3.91 from 3.64 - Homer catheter placed on left internal jugular, on 06/26, removed on 07/04 - tunneled catheter placed to the right upper chest 07/04 - hemodialysis completed 07/02 and 07/04 and 07/07, 07/09, 07/12, 07/15, 07/18 UTI, urinalysis shows UTI picture - Urine culture from 05/28/2024 shows Enterobacter, E coli, Enterococcus faecalis MUSCULOSKELETAL Status post right lower limb, above knee amputation likely due to PAD Decubitus ulcer - There are multiple stage 3-4 sacral ulcers draining pus - position changing every 2 hours and dressing -started fentanyl patch 25 mcg 07/01 ENDOCRINE SECONDARY HYPERPARATHYROIDISM Nephrology recommended starting calcium acetate in tube feeding, 1334mg calcium associated with each meal. HEME Severe anemia, transfused 5 pack of red blood cells Anemia of chronic disease Thrombocytopenia Macrocytic anemia - Retacrit T/TH/SAT - B12 normal, folate low normal ID: - Sputum culture from bronchoalveolar lavage from 05/24/24 shows MRSA, Enterobacter cloacae - Blood culture from the 06/02/24 shows Staphylococcus epidermidis , Staph hominis - Repeat culture from 06/09/2024 shows no growth - culture results from BAL from 06/11 shows Pseudomonas aeruginosa and Enterobacter baumanni, MDR - discontinued IV linezolid starting 06/28 and meropenem starting 06/25, discontinued in 07/03 - previously received vancomycin - catheter site culture 06/25 completed shows MRSA, Acinetobacter baumannii MDRO, Enterococcus faecalis. - repeat blood culture 07/22 prelim negative - repeat respiratory culture 07/22 pending - started IV meropenem 07/23 SKIN Possible keloid - There is a growth on the left shoulder, per son, lesion has been present for several years - Follow up on outpatient basis Metabolic: Hypernatremia, improved Hypokalemia, discontinued potassium supplementation given ESRD Hyperkalemia, albuterol, insulin d5w administered Mild hyponatremia, monitoring Hypoglycemic episodes, improved Hypomagnesemia, supplemented LINES/DRAINS/ACCESS: ETT, intubated on 05/28/2024 and tracheostomy performed on 06/11, PEG tube placed on 06/15 IV access Left internal jugular CVC, placed on 06/26 and removed on 07/04 Right IJ hemodialysis catheter placed 07/04 Suprapubic catheter, changed on 07/14/2024 Dripps: Off Fentanyl patch 25 mg Off pressor DIET: Jevity 1.2 john 60 mL/hour DVT prophylaxis Lovenox 30mg SC daily Disposition: social group worker consulted for transfer to the [facility]. Will be transfered to [place] in [facility] or [facility]. critical care time including review of charts, discussing case with patient's nurse, and son excluding procedures is 42 mins CODE STATUS: Full code Plan discussed with patient and his son at bedside in which all questions have been answered. Case discussed with Dr. Martinez Plan discussed with: Patient Dietary Evaluation Review Comments: 1) If GI is assessible consider Jevity 1.2 @ 60 ml/hr x24 hrs goal rate as tolerated 2) If pt remains NPO >7 days consider TPN to meet at least 75% of estimated needs 3) Advance pt diet when medically feasible to a Cardiac/Renal Specific K2,2gmNA,low phos,60g Pro diet modified per [employer] recommendations 4) Continue current plan of care Expected Outcomes/Goals: 1) Pt to receive adequate nutrition support 2) Pt diet to advance CC Plasma Assessment Blood Product Administration S: [id number] THA CRISOSTOMO RESIDENT Jul 25, 2024 15:11
[2024-07-26] VITALS (68 sets, daily range): BP systolic 119–163; BP diastolic 59–78; PULSE 72–256; RESP 13–35; TEMP 98–99; O2SAT 88–100
[2024-07-26 05:18] LABS: Chloride 102 mmol/L (98-107); Potassium 4.5 mmol/L (3.5-5.1); Sodium 140 mmol/L (136-145)
[2024-07-26 05:19] LABS: Anion Gap 7 (5-15)
[2024-07-26 05:20] LABS: Calcium 9.4 mg/dL (8.7-10.4)
--- NOTE | 2024-07-26 05:23 | DVH ---
CHEST RADIOGRAPH Indication: Follow up Technique: Single frontal view of the chest was obtained Comparison: XY CHEST PORTABLE on DOS: 07/25/24, XY CHEST XRAY 1 VIEW on DOS: 07/24/24, XY CHEST PORTABLE on DOS: 07/24/24 IMPRESSION: The heart appears stable and prominent in size. Support lines and tubes appear similar in position. Small left pleural effusion. Increased opacity of the left lung appear stable. Right lung appears re latively clear.
[2024-07-26 05:24] LABS: Glucose 98 mg/dL (74-106)
[2024-07-26 05:25] LABS: BUN/Creatinine Ratio 18.7 (10.0-20.0); Magnesium 2.1 mg/dL (1.6-2.6)
[2024-07-26 05:32] LABS: Basophils # (auto) 0 10 ^3/uL (0-0.2); Basophils % (auto) 0.5 % (0.0-2.0); Eosinophils # (auto) 0.2 10 ^3/uL (0-0.8)
[2024-07-26 05:33] LABS: Blood Urea Nitrogen 57 mg/dL (9-23); Carbon Dioxide 31 mmol/L (20-31)
[2024-07-26 05:35] LABS: Eosinophils % (auto) 3.4 % (0.0-7.0); Hematocrit 24.5 % (41.0-53.0); Hemoglobin 8.1 g/dL (13.5-17.5); Lymphocytes % (auto) 15.5 % (10.0-50.0); Mean Corpuscular Hemoglobin 32.1 pg (28.0-32.0); Mean Corpuscular Hgb Conc. 33.2 g/dL (32.0-36.0); Mean Corpuscular Volume 96.8 fL (80.0-100.0); Monocytes # (auto) 0.5 10 ^3/uL (0-1.3); Monocytes % (auto) 8.1 % (0.0-12.0); Neutrophils # (auto) 4.8 10 ^3/uL (1.6-8.6); Neutrophils % (auto) 72.5 % (37.0-80.0); Platelet Count (auto) 203 10^3/uL (140-450); Red Blood Cells 2.53 10^6/uL (4.5-5.90); Red Cell Distribution Width 17.9 % (11.8-14.3); White Blood Cell 6.6 10^3/uL (4.4-10.8)
[2024-07-26] MEDS: SODIUM CHL 0.9% 1000 ML BAG XX ONE (11:38)
--- NOTE | 2024-07-26 14:27 | DVHPN2 ---
Progress Note - Dictate Date Seen: Jul 26, 2024 Has the PT tested + for MRSA If YES, has PT been informed?: Yes Medical Necessity Reason Pt with a Central, PICC or Fol: Yes The following are medically ne: Rubio Catheter Reason for rubio catheter: Strict I&O Subjective No acute overnight events vital signs Vital Sign Date Time Temp Pulse Resp B/P (MAP) Pulse Ox O2 Delivery O2 Flow Rate FiO2 07/26/24 14:08 156/74 07/26/24 12:03 78 18 94 07/26/24 12:00 T-piece 10 35 35 07/26/24 12:00 98.0 98.0 Total Intake and Output 07/25/24 07/25/24 07/26/24 15:00 23:00 07:00 Intake Total 17 ml 421 ml 738 ml Output Total 85 ml 150 ml Balance 17 ml 336 ml 588 ml medications Current Medications Medications Dose Ordered Sig/[place] Route Start Time Stop Time Status Last Admin Dose Admin Enoxaparin Sodium 40 mg DAILY SC 06/10/24 10:00 UNV Enoxaparin Sodium 40 mg DAILY SC 06/17/24 10:00 UNV Epoetin [place]-epbx 10,000 unit TUTHSA SC 06/17/24 12:00 Hold 06/28/24 08:25 10,000 UNIT Lactulose 30 ml [id number] PRN PEG 07/01/24 10:15 Metoprolol Tartrate 50 mg BID PO 07/01/24 22:00 07/26/24 09:11 50 MG Enteral Nutritional Formula 1,000 ml 60ML/HR GT 07/02/24 11:00 07/26/24 11:12 1,000 ML Clonidine HCl 0.2 mg BID PO 07/03/24 22:00 07/26/24 09:27 0.2 MG Hydralazine HCl 100 mg Q8HR PO 07/07/24 22:00 07/26/24 14:08 100 MG Heparin Sodium (Porcine) 4,000 units JACKY PRN XX 07/09/24 11:00 Amlodipine Besylate 10 mg DAILY PO 07/11/24 10:00 07/26/24 09:11 10 MG Acetylcysteine 200 mg Q6HR NEB 07/14/24 12:00 07/26/24 11:54 200 MG Albuterol 2.5 mg Q6HR NEB 07/14/24 12:00 07/26/24 11:55 2.5 MG Ipratropium [place] 0.5 mg Q6HR NEB 07/14/24 12:00 07/26/24 11:55 0.5 MG Calcium Acetate 667 mg Q8HR PEG 07/17/24 14:00 07/26/24 14:07 667 MG Bumetanide 2 mg BIDD PO 07/19/24 15:00 07/26/24 06:29 2 MG Acetaminophen 650 mg Q6HP PRN PO 07/22/24 19:53 07/25/24 04:52 650 MG Meropenem 50 ml @ 17 mls/hr Q12HR IV 07/23/24 22:00 07/26/24 09:12 17 MLS/HR Fentanyl 25 mcg Q72H TD 07/28/24 15:00 objective Gen: nad, heent: nc/at, mmm lungs: Occasional coarse breath sounds cvs: no rub ext: no edema laboratory and microbiology Laboratory Tests 07/26/24 04:40 Test 07/26/24 04:40 Range/Units Serum Glucose 98 74-106 mg/dL Assessment/Plan Acute kidney injury on chronic kidney disease stage 4 -> likely septic ATN needing HD Acute respiratory failure on vent Anemia suspected due to low blood loss s/p PRBC Hypernatremia Hypokalemia Metabolic acidosis Chronic urinary retention sepsis due to bacteremia recs - next dialysis tentatively July 28 - we will continue to evaluate daily Dietary Evaluation Review Comments: 1) If GI is assessible consider Jevity 1.2 @ 60 ml/hr x24 hrs goal rate as tolerated 2) If pt remains NPO >7 days consider TPN to meet at least 75% of estimated needs 3) Advance pt diet when medically feasible to a Cardiac/Renal Specific K2,2gmNA,low phos,60g Pro diet modified per [employer] recommendations 4) Continue current plan of care Expected Outcomes/Goals: 1) Pt to receive adequate nutrition support 2) Pt diet to advance Plan discussed with: Other CC Plasma Assessment Blood Product Administration S: [id number] SHANEL HOOK MD Jul 26, 2024 14:27
--- NOTE | 2024-07-26 14:51 | DVHPN2 ---
Assessment/Plan Assessment/Plan ICU progress note Subjective This is a 65-year-old male with past medical history of CHF, CKD, COPD, dyslipidemia, hypertension, CVA brought to the hospital with shortness of breaths and at the level of consciousness. Admitted and intubated on 05/28, extubated on 06/09 but reintubated on 06/10. Epigastric performed on 06/13, PEG tube placed on 06/15. Patient was bronch x2, last 1 with the recruitment and secretion. Patient was seen by me today during rounds, on T piece 6LPM, status quo, pending transfer to [facility], on regular dialysis Objective Physical exam trahced on t piece alert and conversant gag + cough + PERRLA coarse breath sounds s1 s2 RRR abdomen soft Le edema Assessment and plan acute metabolic encephalopathy 2/2 sepsis old CVA R frontal and R parietal HTN acute hypoxic respiratory failure 2/2 PNA PNA MRSA and enterobacter Pneumomediastinum pneumopericardium s/p tracheostomy chronic hep C ESRD on HD UTI ecoli enterobacter enterococcus AKA 2/2 PAD decub ulcer hyperparathyroidism 2/2 ESRD macrocytic anemia c/w o2 supplementation s/p keppra for sz ppx c/w hydralazine clonidine metoprolol amlodipine c/w abx nephro consult appreciated, c/w HD retacrit per nephro for transfer to [facility] ROM trainig Lines trach rubio permacath Maintain potassium of 4, phosphate of 3 and magnesium of 2 Diet tube feeding nepro GI prophylaxis protonix DVT prophylaxis lovenox Condition critical Prognosis poor 32 minutes critical care time spent on this patient including evaluation, chart review, formulating plan and communication with team, excluding any procedures or point of care imaging Plan discussed with: Patient Date of Service: Jul 26, 2024 Billing Provider: CARLENE OSUNA MD Common Visit Codes: [id number] CARE 30-74 MIN CARLENE OSUNA MD Jul 26, 2024 14:51
--- NOTE | 2024-07-26 20:49 | DVHPN2 ---
Progress Note - Dictate Date Seen: Jul 26, 2024 Has the PT tested + for MRSA If YES, has PT been informed?: Yes Medical Necessity Reason Pt with a Central, PICC or Fol: Yes The following are medically ne: Rubio Catheter Reason for rubio catheter: Strict I&O Subjective Patient seen and examined at bedside. On trach with humidified O2. Overnight events reviewed. vital signs Vital Sign Date Time Temp Pulse Resp B/P (MAP) Pulse Ox O2 Delivery O2 Flow Rate FiO2 07/26/24 20:00 98.6 83 28 153/71 (98) 96 98.6 07/26/24 18:00 Trach Collar 6 N/A T-piece Cool Aerosol Total Intake and Output 07/25/24 07/25/24 07/26/24 15:00 23:00 07:00 Intake Total 17 ml 421 ml 738 ml Output Total 85 ml 150 ml Balance 17 ml 336 ml 588 ml medications Current Medications Medications Dose Ordered Sig/[place] Route Start Time Stop Time Status Last Admin Dose Admin Enoxaparin Sodium 40 mg DAILY SC 06/10/24 10:00 UNV Enoxaparin Sodium 40 mg DAILY SC 06/17/24 10:00 UNV Epoetin Calin-epbx 10,000 unit TUTHSA SC 06/17/24 12:00 Hold 06/28/24 08:25 10,000 UNIT Lactulose 30 ml [id number] PRN PEG 07/01/24 10:15 Metoprolol Tartrate 50 mg BID PO 07/01/24 22:00 07/26/24 09:11 50 MG Enteral Nutritional Formula 1,000 ml 60ML/HR GT 07/02/24 11:00 07/26/24 11:12 1,000 ML Clonidine HCl 0.2 mg BID PO 07/03/24 22:00 07/26/24 09:27 0.2 MG Hydralazine HCl 100 mg Q8HR PO 07/07/24 22:00 07/26/24 14:08 100 MG Heparin Sodium (Porcine) 4,000 units JACKY PRN XX 07/09/24 11:00 Amlodipine Besylate 10 mg DAILY PO 07/11/24 10:00 07/26/24 09:11 10 MG Acetylcysteine 200 mg Q6HR NEB 07/14/24 12:00 07/26/24 17:59 200 MG Albuterol 2.5 mg Q6HR NEB 07/14/24 12:00 07/26/24 17:58 2.5 MG Ipratropium [place] 0.5 mg Q6HR NEB 07/14/24 12:00 07/26/24 17:58 0.5 MG Calcium Acetate 667 mg Q8HR PEG 07/17/24 14:00 07/26/24 14:07 667 MG Bumetanide 2 mg BIDD PO 07/19/24 15:00 07/26/24 17:56 2 MG Acetaminophen 650 mg Q6HP PRN PO 07/22/24 19:53 07/25/24 04:52 650 MG Meropenem 50 ml @ 17 mls/hr Q12HR IV 07/23/24 22:00 07/26/24 09:12 17 MLS/HR Fentanyl 25 mcg Q72H TD 07/28/24 15:00 objective Gen.: Patient lying in bed in no apparent distress. On trach with humidified O2. Head: Normocephalic, atraumatic. Eyes: EOMI/PERRLA. Ears: Normal hearing. Normal anatomy. Neck/trachea: Trach in place. Nose: Normal external anatomy. Mouth: Moist mucous membranes. Chest: Decreased air entry bilaterally. No wheezing or rhonchi. Cardiovascular: Positive S1, positive S2. Regular rate and rhythm. Abdomen: Positive bowel sounds in all 4 quadrants. Soft, non-tender, non- distended. : Deferred. Rectal: Deferred. Skin: Warm, dry. Intact. Extremities: 2+ radial pulses bilaterally. No lower extremity edema. Neuro: Awake, alert, oriented x3. No gross motor or sensory deficits. Cranial nerves II through XII intact. Gait not assessed. laboratory and microbiology Laboratory Tests 07/26/24 04:40 Test 07/26/24 04:40 Range/Units Serum Glucose 98 74-106 mg/dL Assessment/Plan Impression: Acute hypoxic respiratory failure Multifocal pneumonia Atelectasis Congestive heart failure Tracheostomy Events: S/p trach S/p PEG. On 6 LPM humidified O2 via trach. Trach care Pulmonary toileting Humidified O2 via trach Continue bronchodilators Continue antibiotics Wound care. Tube feeds for nutritional support via PEG. HOB elevation Aspiration precautions. HD per Nephrology. Monitor renal function Monitor electrolytes. Supplement as necessary. Awaiting LTAC placement. S/p bronchoscopy with BAL on 07/08/24. See procedure note for full details. Rest of plan as noted below Plan: S/p trach, trach collar - on 6 L humidified O2 Off sedation Off pressors,hemodynamically stable. Antibiotics Positive hepatitis C. IV fluid hydration Maintain euvolemia Monitor renal function Monitor electrolytes. Supplement as necessary. Monitor ins and outs. Tube feeds for nutritional support. GI prophylaxis. DVT prophylaxis. Prognosis: Poor given patient's multiple co-morbidities. Condition: Critical Rest of plan per hospitalist and other consultants. A total of 35 minutes of critical care time was spent reviewing the patient record, examining the patient, making a diagnostic and therapeutic plan, discussing this plan with the medical personnel, following up on diagnostic studies and following the patient for clinical stability excluding any and all procedures. At least 50% of this time was spent in direct, [id number] contact. Thank you Anthony Ugalde NP, for allowing me to participate in this patient's care. Further recommendations will depend on the patient's clinical course. Please do not hesitate to contact me if you have any questions or concerns. This medical document was created using an electronic medical record system with [employer] dictation system. Although these documentations are being carefully reviewed, there may still be some phonetic and typographical changes. The errors are purely typographical, due to imperfection on the software program, and do not reflect any compromise in the patient's medical care. Dietary Evaluation Review Comments: 1) If GI is assessible consider Jevity 1.2 @ 60 ml/hr x24 hrs goal rate as tolerated 2) If pt remains NPO >7 days consider TPN to meet at least 75% of estimated needs 3) Advance pt diet when medically feasible to a Cardiac/Renal Specific K2,2gmNA,low phos,60g Pro diet modified per CORSETIER recommendations 4) Continue current plan of care Expected Outcomes/Goals: 1) Pt to receive adequate nutrition support 2) Pt diet to advance Plan discussed with: Other (DORCAS Ortiz) Critical Care Time(min): 35 CC Plasma Assessment Blood Product Administration S: [id number] ELIANE ALTAMIRANO MD Jul 26, 2024 20:49
[2024-07-27] VITALS (31 sets, daily range): BP systolic 125–161; BP diastolic 58–84; PULSE 63–92; RESP 17–28; TEMP 98.5–99.4; O2SAT 90–98
[2024-07-27 05:24] LABS: Basophils # (auto) 0.1 10 ^3/uL (0-0.2); Basophils % (auto) 0.8 % (0.0-2.0); Eosinophils # (auto) 0.4 10 ^3/uL (0-0.8); Hematocrit 22.9 % (41.0-53.0); Hemoglobin 7.7 g/dL (13.5-17.5); Lymphocytes # (auto) 1.1 10 ^3/uL (0.4-5.4); Lymphocytes % (auto) 17.1 % (10.0-50.0); Monocytes # (auto) 0.6 10 ^3/uL (0-1.3); Neutrophils # (auto) 4.4 10 ^3/uL (1.6-8.6); White Blood Cell 6.6 10^3/uL (4.4-10.8)
[2024-07-27 05:27] LABS: Eosinophils % (auto) 6.1 % (0.0-7.0); Mean Corpuscular Hemoglobin 32.6 pg (28.0-32.0); Mean Corpuscular Hgb Conc. 33.7 g/dL (32.0-36.0); Monocytes % (auto) 8.6 % (0.0-12.0); Neutrophils % (auto) 67.4 % (37.0-80.0); Nucleated Red Blood Cells % 0.2 %; Platelet Count (auto) 196 10^3/uL (140-450); Red Blood Cells 2.37 10^6/uL (4.5-5.90); Red Cell Distribution Width 18.1 % (11.8-14.3)
[2024-07-27 05:50] LABS: Anion Gap 7 (5-15); BUN/Creatinine Ratio 19.9 (10.0-20.0); Calcium 9.3 mg/dL (8.7-10.4); Carbon Dioxide 31 mmol/L (20-31); Chloride 103 mmol/L (98-107); Glucose 85 mg/dL (74-106); Magnesium 2.2 mg/dL (1.6-2.6); Sodium 141 mmol/L (136-145)
[2024-07-27 05:51] LABS: Total Protein 6.2 g/dL (5.7-8.2)
[2024-07-27 06:00] LABS: Alanine Aminotransferase 48 U/L (7-40); Albumin 2.5 g/dL (3.2-4.8); Alkaline Phosphatase 175 U/L (46-116); Aspartate Aminotransferase 86 U/L (13-40); Bilirubin, Total < 0.2 mg/dL (0.2-1.0); Blood Urea Nitrogen 72 mg/dL (9-23); Phosphorus 6.5 mg/dL (2.4-5.1)
[2024-07-27] MEDS: LACTULOSE 20Gm/30ML SOLN PEG PRN (06:08)
[2024-07-27] MEDS: fentaNYL 25MCG/HR 25 MCG/HR PAT TD SCH (11:06)
--- NOTE | 2024-07-27 15:52 | DVHPN2 ---
Progress Note - Dictate Date Seen: Jul 27, 2024 Has the PT tested + for MRSA If YES, has PT been informed?: Yes Medical Necessity Reason Pt with a Central, PICC or Fol: Yes The following are medically ne: Rubio Catheter Reason for rubio catheter: Strict I&O Subjective clinically unchanged vital signs Vital Sign Date Time Temp Pulse Resp B/P (MAP) Pulse Ox O2 Delivery O2 Flow Rate FiO2 07/27/24 15:00 70 138/61 (86) 96 07/27/24 14:00 18 T-piece 10 35 35 07/27/24 12:00 99.4 99.4 Total Intake and Output 07/26/24 07/26/24 07/27/24 15:00 23:00 07:00 Intake Total 50 ml 822 ml 570 ml Output Total 425 ml 160 ml Balance 50 ml 397 ml 410 ml medications Current Medications Medications Dose Ordered Sig/[place] Route Start Time Stop Time Status Last Admin Dose Admin Enoxaparin Sodium 40 mg DAILY SC 06/10/24 10:00 UNV Enoxaparin Sodium 40 mg DAILY SC 06/17/24 10:00 UNV Epoetin Calin-epbx 10,000 unit TUTHSA SC 06/17/24 12:00 Hold 06/28/24 08:25 10,000 UNIT Lactulose 30 ml [id number] PRN PEG 07/01/24 10:15 07/27/24 09:15 30 ML Metoprolol Tartrate 50 mg BID PO 07/01/24 22:00 07/27/24 09:16 50 MG Enteral Nutritional Formula 1,000 ml 60ML/HR GT 07/02/24 11:00 07/26/24 11:12 1,000 ML Clonidine HCl 0.2 mg BID PO 07/03/24 22:00 07/27/24 09:15 0.2 MG Hydralazine HCl 100 mg Q8HR PO 07/07/24 22:00 07/27/24 13:10 100 MG Heparin Sodium (Porcine) 4,000 units JACKY PRN XX 07/09/24 11:00 Amlodipine Besylate 10 mg DAILY PO 07/11/24 10:00 07/27/24 09:16 10 MG Acetylcysteine 200 mg Q6HR NEB 07/14/24 12:00 07/27/24 12:12 200 MG Albuterol 2.5 mg Q6HR NEB 07/14/24 12:00 07/27/24 12:12 2.5 MG Ipratropium [place] 0.5 mg Q6HR NEB 07/14/24 12:00 07/27/24 12:12 0.5 MG Calcium Acetate 667 mg Q8HR PEG 07/17/24 14:00 07/27/24 13:10 667 MG Bumetanide 2 mg BIDD PO 07/19/24 15:00 07/26/24 17:56 2 MG Acetaminophen 650 mg Q6HP PRN PO 07/22/24 19:53 07/26/24 23:47 650 MG Meropenem 50 ml @ 17 mls/hr Q12HR IV 07/23/24 22:00 07/27/24 09:17 17 MLS/HR Fentanyl 25 mcg Q72H TD 07/27/24 10:00 07/27/24 11:06 25 MCG Omeprazole 20 mg DAILY GT 07/28/24 10:00 objective Gen: nad, heent: nc/at, mmm lungs: Occasional coarse breath sounds cvs: no rub ext: no edema laboratory and microbiology Laboratory Tests 07/27/24 04:57 Test 07/27/24 04:57 Range/Units Serum Glucose 85 74-106 mg/dL Assessment/Plan Acute kidney injury on chronic kidney disease stage 4 -> likely septic ATN needing HD Acute respiratory failure on vent Anemia suspected due to low blood loss s/p PRBC Hypernatremia Hypokalemia Metabolic acidosis Chronic urinary retention sepsis due to bacteremia recs - next dialysis tentatively July 28 Dietary Evaluation Review Comments: 1) If GI is assessible consider Jevity 1.2 @ 60 ml/hr x24 hrs goal rate as tolerated 2) If pt remains NPO >7 days consider TPN to meet at least 75% of estimated needs 3) Advance pt diet when medically feasible to a Cardiac/Renal Specific K2,2gmNA,low phos,60g Pro diet modified per [employer] recommendations 4) Continue current plan of care Expected Outcomes/Goals: 1) Pt to receive adequate nutrition support 2) Pt diet to advance Plan discussed with: Other CC Plasma Assessment Blood Product Administration S: [id number] SHANEL HOOK MD Jul 27, 2024 15:52
--- NOTE | 2024-07-27 20:19 | DVHPN2 ---
Assessment/Plan Assessment/Plan ICU progress note Subjective This is a 65-year-old male with past medical history of CHF, CKD, COPD, dyslipidemia, hypertension, CVA brought to the hospital with shortness of breaths and at the level of consciousness. Admitted and intubated on 05/28, extubated on 06/09 but reintubated on 06/10. Epigastric performed on 06/13, PEG tube placed on 06/15. Patient was bronch x2, last 1 with the recruitment and secretion. Patient was seen by me today during rounds, on T piece 6LPM, status quo, pending transfer to [facility], on regular dialysis. 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 HTN acute hypoxic respiratory failure 2/2 PNA PNA MRSA and enterobacter Pneumomediastinum pneumopericardium s/p tracheostomy chronic hep C ESRD on HD UTI ecoli enterobacter enterococcus AKA 2/2 PAD decub ulcer hyperparathyroidism 2/2 ESRD macrocytic anemia c/w o2 supplementation s/p keppra for sz ppx c/w hydralazine clonidine metoprolol amlodipine c/w abx nephro consult appreciated, c/w HD retacrit per nephro for transfer to [facility] trainig Lines trach rubio permacath Maintain potassium of 4, phosphate of 3 and magnesium of 2 Diet tube feeding nepro GI prophylaxis protonix DVT prophylaxis lovenox Condition critical Prognosis poor 34 minutes critical care time spent on this patient including evaluation, chart review, formulating plan and communication with team, excluding any procedures or point of care imaging Plan discussed with: Patient, Son My Orders Orders - CARLENE OSUNA MD Procedure Category Date Status Time Fentanyl 25mcg/Hr PHA 07/27/24 In Process (Duragesic 25mcg/Hr) 10:00 Omeprazole-Sodium PHA 07/28/24 In Process Bicarbonate (Omeprazol 10:00 Date of Service: Jul 27, 2024 Billing Provider: CARLENE OSUNA MD Common Visit Codes: [id number] CARE 30-74 MIN CARLENE OSUNA MD Jul 27, 2024 20:19
--- NOTE | 2024-07-27 23:42 | DVHPN2 ---
Progress Note - Dictate Date Seen: Jul 27, 2024 Has the PT tested + for MRSA If YES, has PT been informed?: Yes Medical Necessity Reason Pt with a Central, PICC or Fol: Yes The following are medically ne: Rubio Catheter Reason for rubio catheter: Strict I&O Subjective Patient seen and examined at bedside. On trach with humidified O2. Overnight events reviewed. vital signs Vital Sign Date Time Temp Pulse Resp B/P (MAP) Pulse Ox O2 Delivery O2 Flow Rate FiO2 07/27/24 22:52 155/63 07/27/24 22:52 69 07/27/24 20:00 98.8 98 98.8 07/27/24 18:27 20 07/27/24 18:00 T-piece 10 35 35 Total Intake and Output 07/26/24 07/26/24 07/27/24 15:00 23:00 07:00 Intake Total 50 ml 822 ml 570 ml Output Total 425 ml 160 ml Balance 50 ml 397 ml 410 ml medications Current Medications Medications Dose Ordered Sig/[place] Route Start Time Stop Time Status Last Admin Dose Admin Enoxaparin Sodium 40 mg DAILY SC 06/10/24 10:00 UNV Enoxaparin Sodium 40 mg DAILY SC 06/17/24 10:00 UNV Epoetin Calin-epbx 10,000 unit TUTHSA SC 06/17/24 12:00 Hold 06/28/24 08:25 10,000 UNIT Lactulose 30 ml [id number] PRN PEG 07/01/24 10:15 07/27/24 09:15 30 ML Metoprolol Tartrate 50 mg BID PO 07/01/24 22:00 07/27/24 22:52 50 MG Enteral Nutritional Formula 1,000 ml 60ML/HR GT 07/02/24 11:00 07/26/24 11:12 1,000 ML Clonidine HCl 0.2 mg BID PO 07/03/24 22:00 07/27/24 22:51 0.2 MG Hydralazine HCl 100 mg Q8HR PO 07/07/24 22:00 07/27/24 22:52 100 MG Heparin Sodium (Porcine) 4,000 units JACKY PRN XX 07/09/24 11:00 Amlodipine Besylate 10 mg DAILY PO 07/11/24 10:00 07/27/24 09:16 10 MG Acetylcysteine 200 mg Q6HR NEB 07/14/24 12:00 07/27/24 18:22 200 MG Albuterol 2.5 mg Q6HR NEB 07/14/24 12:00 07/27/24 18:21 2.5 MG Ipratropium [place] 0.5 mg Q6HR NEB 07/14/24 12:00 07/27/24 18:21 0.5 MG Calcium Acetate 667 mg Q8HR PEG 07/17/24 14:00 07/27/24 22:51 667 MG Bumetanide 2 mg BIDD PO 07/19/24 15:00 07/27/24 17:20 2 MG Acetaminophen 650 mg Q6HP PRN PO 07/22/24 19:53 07/26/24 23:47 650 MG Meropenem 50 ml @ 17 mls/hr Q12HR IV 07/23/24 22:00 07/27/24 22:50 17 MLS/HR Fentanyl 25 mcg Q72H TD 07/27/24 10:00 07/27/24 11:06 25 MCG Omeprazole 20 mg DAILY GT 07/28/24 10:00 objective Gen.: Patient lying in bed in no apparent distress. On trach with humidified O2. Head: Normocephalic, atraumatic. Eyes: EOMI/PERRLA. Ears: Normal hearing. Normal anatomy. Neck/trachea: Trach in place. Nose: Normal external anatomy. Mouth: Moist mucous membranes. Chest: Decreased air entry bilaterally. No wheezing or rhonchi. Cardiovascular: Positive S1, positive S2. Regular rate and rhythm. Abdomen: Positive bowel sounds in all 4 quadrants. Soft, non-tender, non- distended. : Deferred. Rectal: Deferred. Skin: Warm, dry. Intact. Extremities: 2+ radial pulses bilaterally. No lower extremity edema. Neuro: Awake, alert, oriented x3. No gross motor or sensory deficits. Cranial nerves II through XII intact. Gait not assessed. laboratory and microbiology Laboratory Tests 07/27/24 04:57 Test 07/27/24 04:57 Range/Units Serum Glucose 85 74-106 mg/dL Assessment/Plan Impression: Acute hypoxic respiratory failure Multifocal pneumonia Atelectasis Congestive heart failure Tracheostomy Events: S/p trach S/p PEG. On 6 LPM humidified O2 via trach. Trach care Pulmonary toileting Humidified O2 via trach Continue bronchodilators Continue antibiotics Follow up cultures Wound care. Tube feeds for nutritional support via PEG. HOB elevation Aspiration precautions. HD per Nephrology. Monitor renal function Monitor electrolytes. Supplement as necessary. Awaiting LTAC placement. S/p bronchoscopy with BAL on 07/08/24. See procedure note for full details. Rest of plan as noted below Plan: S/p trach, trach collar - on 6 L humidified O2 Off sedation Off pressors,hemodynamically stable. Antibiotics Positive hepatitis C. IV fluid hydration Maintain euvolemia Monitor renal function Monitor electrolytes. Supplement as necessary. Monitor ins and outs. Tube feeds for nutritional support. GI prophylaxis. DVT prophylaxis. Prognosis: Poor given patient's multiple co-morbidities. Condition: Critical Rest of plan per hospitalist and other consultants. A total of 35 minutes of critical care time was spent reviewing the patient record, examining the patient, making a diagnostic and therapeutic plan, discussing this plan with the medical personnel, following up on diagnostic studies and following the patient for clinical stability excluding any and all procedures. At least 50% of this time was spent in direct, [id number] contact. Thank you Anthony Ugalde, JES, for allowing me to participate in this patient's care. Further recommendations will depend on the patient's clinical course. Please do not hesitate to contact me if you have any questions or concerns. This medical document was created using an electronic medical record system with [employer] dictation system. Although these documentations are being carefully reviewed, there may still be some phonetic and typographical changes. The errors are purely typographical, due to imperfection on the software program, and do not reflect any compromise in the patient's medical care. Dietary Evaluation Review Comments: 1) If GI is assessible consider Jevity 1.2 @ 60 ml/hr x24 hrs goal rate as tolerated 2) If pt remains NPO >7 days consider TPN to meet at least 75% of estimated needs 3) Advance pt diet when medically feasible to a Cardiac/Renal Specific K2,2gmNA,low phos,60g Pro diet modified per [employer] recommendations 4) Continue current plan of care Expected Outcomes/Goals: 1) Pt to receive adequate nutrition support 2) Pt diet to advance Plan discussed with: Patient, Other (DORCAS Ortiz) Critical Care Time(min): 35 CC Plasma Assessment Blood Product Administration S: [id number] ELIANE ALTAMIRANO MD Jul 27, 2024 23:42
[2024-07-28] VITALS (37 sets, daily range): BP systolic 107–163; BP diastolic 62–82; PULSE 63–84; RESP 12–26; TEMP 98.2–99.2; O2SAT 91–100
[2024-07-28 07:04] LABS: Hemoglobin 7.6 g/dL (13.5-17.5)
[2024-07-28 07:08] LABS: Hematocrit 22.9 % (41.0-53.0); Mean Corpuscular Hemoglobin 32.5 pg (28.0-32.0); Mean Corpuscular Hgb Conc. 33.1 g/dL (32.0-36.0); Platelet Count (auto) 202 10^3/uL (140-450); Red Blood Cells 2.34 10^6/uL (4.5-5.90)
[2024-07-28 07:14] LABS: Anion Gap 8 (5-15); Carbon Dioxide 30 mmol/L (20-31); Chloride 104 mmol/L (98-107); Sodium 142 mmol/L (136-145)
[2024-07-28 07:15] LABS: Calcium 9.4 mg/dL (8.7-10.4)
[2024-07-28 07:20] LABS: BUN/Creatinine Ratio 20.2 (10.0-20.0)
[2024-07-28 07:21] LABS: Magnesium 2.3 mg/dL (1.6-2.6)
[2024-07-28 07:25] LABS: Glucose 109 mg/dL (74-106); Phosphorus 7.6 mg/dL (2.4-5.1)
[2024-07-28 07:27] LABS: Blood Urea Nitrogen 83 mg/dL (9-23); Potassium 5.7 mmol/L (3.5-5.1)
[2024-07-28 07:31] LABS: Basophils % (manual) 0 (0.0-2.0); Blast Cells 0; Metamyelocytes % 0; Myelocytes % 0; Promyelocytes % 0; Reactive Lymphocytes 0
[2024-07-28 08:43] LABS: Band Neutrophils % (manual) 1; Eosinophils % (manual) 9 (0-7); Lymphocytes % (manual) 16 (10.0-50.0); Monocytes % (manual) 4 (0-12); Platelet Estimate Adequate
[2024-07-28] MEDS: InsuLIN REG 1unit/0.01ml Soln (100units/ml) IV ONE (09:00)
[2024-07-28] MEDS: DEXTROSE (50%) 50ML SYRG IV ONE (09:53)
--- NOTE | 2024-07-28 09:56 | DVH ---
XY CHEST PORTABLE, HISTORY: t-tube COMPARISON: XY CHEST XRAY 1 VIEW on DOS: 07/26/24, XY CHEST PORTABLE on DOS: 07/25/24, XY CHEST XRAY 1 VIEW on DOS: 07/24/24 XY CHEST XRAY 1 VIEW on DOS: 07/26/24, XY CHEST PORTABLE on DOS: 07/25/24, XY CHEST XRAY 1 VIEW on DOS: 07/24/24 TECHNICAL DATA: 1 view of the chest was obtained. FINDINGS: Lines and tubes: Tracheostomy in the mid thoracic trachea. Right TD catheter with tip in the RA. Left PICC with tip in the SVC. Cardiomediastinal silhouette: Indistinct. Pulmonary vasculature: normal Lung expansion: normal Lung airspace: Patchy left basilar opacities. Lung interstitium: normal Pleura: Small left pleural effusion. Pneumothorax: no Bones: Unremarkable Other: no IMPRESSION: Lines and tubes, as above. Similar lung aeration with small left pleural effusion.
[2024-07-28] MEDS: ALBUTEROL SULF 2.5 MG/0.5ML(0.5%) NEB SOLN NEB ONE (09:58)
[2024-07-28] MEDS: OMEPRAZOLE-SOD BICARB 20 MG POWDER GT SCH (10:00)
--- NOTE | 2024-07-28 11:40 | DVHPN2 ---
Progress Note Date Seen: Jul 28, 2024 Has the PT tested + for MRSA If YES, has PT been informed?: Yes Medical Necessity Reason Pt with a Central, PICC or Fol: Yes The following are medically ne: Rubio Catheter Reason for rubio catheter: Strict I&O Subjective Patient reports: No new complaints Review of Systems: RESPIRATORY:Abnormal Objective vital signs Vital Sign Date Time Temp Pulse Resp B/P (MAP) Pulse Ox O2 Delivery O2 Flow Rate FiO2 07/28/24 11:16 68 129/65 07/28/24 10:00 20 98 T-piece 6 28 28 07/28/24 04:01 98.2 98.2 Total Intake and Output 07/27/24 07/27/24 07/28/24 15:00 23:00 07:00 Intake Total 50 ml 770 ml 750 ml Output Total 1050 ml 100 ml Balance 50 ml -280 ml 650 ml medications Current Medications Medications Dose Ordered Sig/[place] Route Start Time Stop Time Status Last Admin Dose Admin Enoxaparin Sodium 40 mg DAILY SC 06/10/24 10:00 UNV Enoxaparin Sodium 40 mg DAILY SC 06/17/24 10:00 UNV Epoetin Calin-epbx 10,000 unit TUTHSA SC 06/17/24 12:00 Hold 06/28/24 08:25 10,000 UNIT Lactulose 30 ml [id number] PRN PEG 07/01/24 10:15 07/27/24 09:15 30 ML Metoprolol Tartrate 50 mg BID PO 07/01/24 22:00 07/28/24 09:35 50 MG Enteral Nutritional Formula 1,000 ml 60ML/HR GT 07/02/24 11:00 07/26/24 11:12 1,000 ML Clonidine HCl 0.2 mg BID PO 07/03/24 22:00 07/28/24 09:34 0.2 MG Hydralazine HCl 100 mg Q8HR PO 07/07/24 22:00 07/28/24 05:16 100 MG Heparin Sodium (Porcine) 4,000 units JACKY PRN XX 07/09/24 11:00 Amlodipine Besylate 10 mg DAILY PO 07/11/24 10:00 07/28/24 09:36 10 MG Acetylcysteine 200 mg Q6HR NEB 07/14/24 12:00 07/28/24 06:51 200 MG Albuterol 2.5 mg Q6HR NEB 07/14/24 12:00 07/28/24 06:51 2.5 MG Ipratropium [place] 0.5 mg Q6HR NEB 07/14/24 12:00 07/28/24 06:51 0.5 MG Calcium Acetate 667 mg Q8HR PEG 07/17/24 14:00 07/28/24 05:17 667 MG Bumetanide 2 mg BIDD PO 07/19/24 15:00 07/28/24 05:16 2 MG Acetaminophen 650 mg Q6HP PRN PO 07/22/24 19:53 07/28/24 05:17 650 MG Meropenem 50 ml @ 17 mls/hr Q12HR IV 07/23/24 22:00 07/28/24 09:37 17 MLS/HR Fentanyl 25 mcg Q72H TD 07/27/24 10:00 07/27/24 11:06 25 MCG Omeprazole 20 mg DAILY GT 07/28/24 10:00 Examination: LUNGS:Abnormal laboratory and microbiology Laboratory Tests 07/28/24 05:15 Test 07/28/24 05:15 Range/Units Serum Glucose 109 H 74-106 mg/dL Microbiology Date/Time Source Procedure Growth Status 07/24/24 18:34 Trachea Gram Stain - Final Resulted 07/24/24 18:34 Trachea Respiratory Culture - Preliminary Resulted 07/24/24 15:15 Blood Blood Culture - Preliminary NO GROWTH AFTER 72 HOURS OF INCUBATION. Resulted 07/18/24 22:30 Urine - Suprapubic Aspirate Urine Culture - Final Complete 06/11/24 16:06 Bronchial Washings Gram Stain - Final Complete 06/11/24 16:06 Respiratory Culture - Final Acinetobacter baumannii Pseudomonas aeruginosa Complete 05/30/24 11:45 Pleural Fluid Gram Stain - Final Complete 05/30/24 11:45 Pleural Fluid Body Fluid Culture - Final Complete Problem List/Assessment/Plan Problem List/Assessment/Plan Acute kidney injury on ckd 4 - progressed to ckd 5?/ ESRD Acute respiratory failure advanced a chronic respiratory failure status post trach now trach to wall oxygen Septic shock resolved due to multidrug resistant organisms Peripheral artery disease Coronary artery disease Severe protein calorie malnutrition anemia due to ckd hyperkalemia hyperphosphatemia HD Sunday , 2k bath today hospice candidate tube feeding, increase calcium acetate in tube feeds change feeds to renal restricted change to nepro epogen 3x a week Plan discussed with: Patient Dietary Evaluation Review Comments: 1) If GI is assessible consider Jevity 1.2 @ 60 ml/hr x24 hrs goal rate as tolerated 2) If pt remains NPO >7 days consider TPN to meet at least 75% of estimated needs 3) Advance pt diet when medically feasible to a Cardiac/Renal Specific K2,2gmNA,low phos,60g Pro diet modified per [employer] recommendations 4) Continue current plan of care Expected Outcomes/Goals: 1) Pt to receive adequate nutrition support 2) Pt diet to advance CC Plasma Assessment Blood Product Administration S: [id number] ANNA ROMERO MD Jul 28, 2024 11:40
[2024-07-28] MEDS: CALCIUM ACETATE 667 MG CAP PEG SCH (12:33)
[2024-07-28] MEDS ORDERED: fentaNYL 25MCG/HR 25 MCG/HR PAT TD SCH (15:00)
--- NOTE | 2024-07-28 17:50 | DVHPNRES ---
Progress Note Date Seen: Jul 28, 2024 Resident Creating Document: DANGELO COTO RESIDENT Has the PT tested + for MRSA If YES, has PT been informed?: Yes Medical Necessity Reason Pt with a Central, PICC or Fol: Yes The following are medically ne: Rubio Catheter Reason for rubio catheter: Strict I&O Subjective Review of Systems Patient seen and examined at bedside Last night patient was transiently on 10 L of oxygen later was on 6 L, suction revealed numerous secretions. Patient is currently on T collar at 6 L continuous through nasal cannula Patient is nonverbal but comprehends and follows commands Review of system could not be done as patient is nonverbal As per son, patient has been feeling anxiety with a trach collar. Patient received dialysis today Objective vital signs Vital Sign Date Time Temp Pulse Resp B/P (MAP) Pulse Ox O2 Delivery O2 Flow Rate FiO2 07/28/24 16:07 163/70 07/28/24 16:00 75 07/28/24 16:00 19 96 T-piece 6 28 28 07/28/24 04:01 98.2 98.2 Total Intake and Output 07/27/24 07/27/24 07/28/24 15:00 23:00 07:00 Intake Total 50 ml 770 ml 750 ml Output Total 1050 ml 100 ml Balance 50 ml -280 ml 650 ml medications Current Medications Medications Dose Ordered Sig/[place] Route Start Time Stop Time Status Last Admin Dose Admin Enoxaparin Sodium 40 mg DAILY SC 06/10/24 10:00 UNV Enoxaparin Sodium 40 mg DAILY SC 06/17/24 10:00 UNV Epoetin Calin-epbx 10,000 unit TUTHSA SC 06/17/24 12:00 Hold 06/28/24 08:25 10,000 UNIT Lactulose 30 ml [id number] PRN PEG 07/01/24 10:15 07/27/24 09:15 30 ML Metoprolol Tartrate 50 mg BID PO 07/01/24 22:00 07/28/24 09:35 50 MG Clonidine HCl 0.2 mg BID PO 07/03/24 22:00 07/28/24 09:34 0.2 MG Hydralazine HCl 100 mg Q8HR PO 07/07/24 22:00 07/28/24 16:07 100 MG Heparin Sodium (Porcine) 4,000 units JACKY PRN XX 07/09/24 11:00 Amlodipine Besylate 10 mg DAILY PO 07/11/24 10:00 07/28/24 09:36 10 MG Acetylcysteine 200 mg Q6HR NEB 07/14/24 12:00 07/28/24 12:02 200 MG Albuterol 2.5 mg Q6HR NEB 07/14/24 12:00 07/28/24 12:02 2.5 MG Ipratropium [place] 0.5 mg Q6HR NEB 07/14/24 12:00 07/28/24 12:02 0.5 MG Bumetanide 2 mg BIDD PO 07/19/24 15:00 07/28/24 05:16 2 MG Acetaminophen 650 mg Q6HP PRN PO 07/22/24 19:53 07/28/24 05:17 650 MG Meropenem 50 ml @ 17 mls/hr Q12HR IV 07/23/24 22:00 07/28/24 09:37 17 MLS/HR Fentanyl 25 mcg Q72H TD 07/27/24 10:00 07/27/24 11:06 25 MCG Omeprazole 20 mg DAILY GT 07/28/24 10:00 Calcium Acetate 1,334 mg TIDWM PEG 07/28/24 12:33 Enteral Nutritional Formula 1,000 ml 60ML/HR GT 07/28/24 11:45 Lorazepam 0.25 mg Q12HP PRN PO 07/28/24 17:15 Examination Examination General Appearance: Nonverbal, on trach collar, 6 L through nasal cannula continuous Respiratory: Clear to auscultation, Normal air movement, on 6 L through Cardiovascular: Regular rate, Normal S1, Normal S2 Abdominal: Normal bowel sounds, peg tube present, suprapubic catheter present Extremities: Right BKA, 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 Resulted 07/18/24 22:30 Urine - Suprapubic Aspirate Urine Culture - Final Complete 06/11/24 16:06 Bronchial Washings Gram Stain - Final Complete 06/11/24 16:06 Respiratory Culture - Final Acinetobacter baumannii Pseudomonas aeruginosa Complete 05/30/24 11:45 Pleural Fluid Gram Stain - Final Complete 05/30/24 11:45 Pleural Fluid Body Fluid Culture - Final Complete Labs and/or images reviewed: Labs reviewed by me, Image(s) reviewed by me Problem List/Assessment/Plan Problem List/Assessment/Plan Assessment/plan Neurology #Sedation -off sedation # acute metabolic encephalopathy likely due to sepsis -resolving, but complete neurological examination cant be accessed as pt is non verbal # history of seizures -History of seizure during last admission (1 month back) used Keppra for 1 week Discontinued Keppra, on 06/16 EEG shows abnormal EEG recording consistent with the presence of a diffuse nonspecific encephalopathic state # history of stroke Old infarct in the right frontal lobe and right parietal occipital lobe, seen on imaging Cardiovascular # shock likely septic -resolved #Hypertension -amlodipine 10 mg daily, clonidine 0.2 mg p.o. b.i.d., hydralazine 100 mg p.o. Q HR, metoprolol 50 mg p.o. b.i.d. Respiratory # acute hypoxic respiratory failure due to pneumonia s/p tracheostomy 06/13 -albuterol p.r.n., ipratropium neb -on 6 L nasal cannula through T collar # aspiration pneumonia, Gram-positive/Gram-negative -currently on IV meropenem # pneumomediastinum and pneumopericardium -seen on imaging # left lower lobe atelectasis -seen on imaging #Recurrent mucus plugging -Mucomyst -repeat CXR -s/p multiple bronchoscopy GI # hepatitis-C positive # status post PEG tube 06/15 Nephrology # FROYLAN due to hemodynamic mediated likely due to sepsis, requiring dialysis - Homer catheter placed on left internal jugular, on 06/26, removed on 07/04 - tunneled catheter placed to the right upper chest 07/04 -received dialysis today -on Bumex tablet 2 mg p.o. b.i.d. -250 cc urine output today # hyponatremia, improved monitor # hyperkalemia -monitor # hypomagnesemia -monitor Urology # UTI -currently on IV meropenam # s/p suprapubic catheter Musculoskeletal/dermatological # status post above-knee amputation - due to peripheral arterial disease # decubitus ulcer -wound care Endocrine # secondary hyperparathyroidism -likely due to FROYLAN/CKD # hypocalcemia due to FROYLAN/CKD -on oral calcium, discontinued # hypoglycemia likely due to sepsis -resolved Hematology/oncology # severe anemia requiring transfusion, anemia of chronic disease, macrocytic anemia -monitor CBC # thrombocytopenia -monitor CBC Infectious disease # septic shock -resolved -currenltly on meropenam Psychiatry #Anxiety -ativan oral PRN LINES/DRAINS/ACCESS: ETT, intubated on 05/28/2024 and tracheostomy performed on 06/11, PEG tube placed on 06/15 IV access Left internal jugular CVC, placed on 06/26 and removed on 07/04 Right IJ hemodialysis catheter placed 07/04 Left upper PICC line Suprapubic catheter, changed on 07/14/2024 Dripps: Off Fentanyl patch 25 mg Off pressor Nutrition Enteral through PEG tube , nepro with carb steady DVT prophylaxis Started on heparin 5000 subc q.12h Peptic ulcer disease prophylaxis Omeprazole 20 mg GT daily Bowel regimen Lactulose 30 mg q.12h Code status discussed with the family for greater than 21 minutes, full code Case discussion with Dr. Isabel business services officer consulted for subacute care facility Critical care time excluding procedures: 51 minutes Family updated about the condition of the pt over the phone Plan discussed with: Other My Orders My Orders Orders - DANGELO COTO RESIDENT Procedure Category Date Status Time Chest Portable XY 07/28/24 Resulted 08:48 Electrocardigram EKG 07/28/24 Logged 08:48 Lorazepam Tablet PHA 07/28/24 In Process (Ativan Tablet) 17:15 Complete Blood Count LAB 07/29/24 Verified 04:00 Magnesium LAB 07/29/24 Verified 04:00 Chest Portable XY 07/29/24 Logged 04:00 * [employer] CONS 07/28/24 Transmitted Consult Heparin Sodium PHA 07/28/24 Transmitted (Porcine) 22:00 Dietary Evaluation Review Comments: 1) If GI is assessible consider Jevity 1.2 @ 60 ml/hr x24 hrs goal rate as tolerated 2) If pt remains NPO >7 days consider TPN to meet at least 75% of estimated needs 3) Advance pt diet when medically feasible to a Cardiac/Renal Specific K2,2gmNA,low phos,60g Pro diet modified per COMMERCIAL COORDINATOR recommendations 4) Continue current plan of care Expected Outcomes/Goals: 1) Pt to receive adequate nutrition support 2) Pt diet to advance CC Plasma Assessment Blood Product Administration S: [id number] Date of Service: Jul 28, 2024 Billing Provider: HOLGER ISABEL MD Common Visit Codes: [id number] CARE 30-74 MIN DANGELO COTO RESIDENT Jul 28, 2024 17:50 HOLGER ISABEL MD Jul 29, 2024 13:45
[2024-07-28] MEDS: HEPARIN SODIUM (PORCINE) 5000 UNITS/ML 1ML VIAL SC SCH (21:17)
[2024-07-29] VITALS (31 sets, daily range): BP systolic 121–160; BP diastolic 61–81; PULSE 69–88; RESP 12–26; TEMP 97.7–99.3; O2SAT 90–100
--- NOTE | 2024-07-29 04:51 | DVH ---
CHEST RADIOGRAPH Indication: Mucus plug Technique: Single frontal view of the chest was obtained COMPARISON: XY CHEST PORTABLE on DOS: 07/28/24, XY CHEST XRAY 1 VIEW on DOS: 07/26/24, XY CHEST PORTABL E on DOS: 07/25/24, XY CHEST XRAY 1 VIEW on DOS: 07/24/24, XY CHEST PORTABLE on DOS: 07/24/24, XY CHEST PO RTABLE on DOS: 07/28/24 FINDINGS: Lines and tubes: Tracheostomy in the mid thoracic trachea. Right TD catheter with tip in the RA. Left PICC with tip in the SVC. Cardiomediastinal silhouette: Indistinct. Pulmonary vasculature: normal Lung expansion: normal Lung airspace: Patchy left basilar opacities. Lung interstitium: normal Pleura: Small left pleural effusion. Pneumothorax: no Bones: Unremarkable Other: no IMPRESSION: Lines and tubes, as above. Similar lung aeration with small left pleural effusion.
[2024-07-29 06:21] LABS: Anion Gap 5 (5-15); Chloride 101 mmol/L (98-107); Potassium 4.3 mmol/L (3.5-5.1); Sodium 140 mmol/L (136-145)
[2024-07-29 06:22] LABS: Calcium 9.3 mg/dL (8.7-10.4)
[2024-07-29 06:27] LABS: Basophils # (auto) 0.1 10 ^3/uL (0-0.2); Eosinophils # (auto) 0.5 10 ^3/uL (0-0.8); Glucose 86 mg/dL (74-106); Lymphocytes # (auto) 1.2 10 ^3/uL (0.4-5.4); Monocytes # (auto) 0.7 10 ^3/uL (0-1.3)
[2024-07-29 06:29] LABS: Phosphorus 4.7 mg/dL (2.4-5.1)
[2024-07-29 06:30] LABS: Basophils % (auto) 0.9 % (0.0-2.0); Eosinophils % (auto) 8.6 % (0.0-7.0); Hemoglobin 7.8 g/dL (13.5-17.5); Lymphocytes % (auto) 21.2 % (10.0-50.0); Mean Corpuscular Hemoglobin 32.9 pg (28.0-32.0); Mean Corpuscular Hgb Conc. 33.7 g/dL (32.0-36.0); Mean Corpuscular Volume 97.7 fL (80.0-100.0); Monocytes % (auto) 12.4 % (0.0-12.0); Neutrophils # (auto) 3.2 10 ^3/uL (1.6-8.6); Neutrophils % (auto) 56.9 % (37.0-80.0); Nucleated Red Blood Cells % 0.2 %; Platelet Count (auto) 203 10^3/uL (140-450); Red Blood Cells 2.36 10^6/uL (4.5-5.90); Red Cell Distribution Width 17.8 % (11.8-14.3); White Blood Cell 5.6 10^3/uL (4.4-10.8)
[2024-07-29 06:31] LABS: Blood Urea Nitrogen 44 mg/dL (9-23); Carbon Dioxide 34 mmol/L (20-31)
--- NOTE | 2024-07-29 11:42 | DVHPN2 ---
Progress Note Date Seen: Jul 29, 2024 Has the PT tested + for MRSA If YES, has PT been informed?: Yes Medical Necessity Reason Pt with a Central, PICC or Fol: Yes The following are medically ne: Rubio Catheter Reason for rubio catheter: Strict I&O Subjective Patient reports: No new complaints Objective vital signs Vital Sign Date Time Temp Pulse Resp B/P (MAP) Pulse Ox O2 Delivery O2 Flow Rate FiO2 07/29/24 10:10 74 133/75 07/29/24 10:00 24 94 07/29/24 10:00 Trach Collar 6 28 28 07/29/24 08:00 98.9 98.9 Total Intake and Output 07/28/24 07/28/24 07/29/24 15:00 23:00 07:00 Intake Total 384 ml 674 ml Output Total 250 ml 100 ml Balance 134 ml 574 ml medications Current Medications Medications Dose Ordered Sig/[place] Route Start Time Stop Time Status Last Admin Dose Admin Enoxaparin Sodium 40 mg DAILY SC 06/10/24 10:00 UNV Enoxaparin Sodium 40 mg DAILY SC 06/17/24 10:00 UNV Epoetin Calin-epbx 10,000 unit TUTHSA SC 06/17/24 12:00 Hold 06/28/24 08:25 10,000 UNIT Lactulose 30 ml [id number] PRN PEG 07/01/24 10:15 07/27/24 09:15 30 ML Metoprolol Tartrate 50 mg BID PO 07/01/24 22:00 07/29/24 09:10 50 MG Clonidine HCl 0.2 mg BID PO 07/03/24 22:00 07/29/24 09:09 0.2 MG Hydralazine HCl 100 mg Q8HR PO 07/07/24 22:00 07/29/24 05:24 100 MG Heparin Sodium (Porcine) 4,000 units JACKY PRN XX 07/09/24 11:00 Amlodipine Besylate 10 mg DAILY PO 07/11/24 10:00 07/29/24 09:09 10 MG Acetylcysteine 200 mg Q6HR NEB 07/14/24 12:00 07/29/24 06:40 200 MG Albuterol 2.5 mg Q6HR NEB 07/14/24 12:00 07/29/24 06:40 2.5 MG Ipratropium [place] 0.5 mg Q6HR NEB 07/14/24 12:00 07/29/24 06:40 0.5 MG Bumetanide 2 mg BIDD PO 07/19/24 15:00 07/28/24 18:11 2 MG Acetaminophen 650 mg Q6HP PRN PO 07/22/24 19:53 07/28/24 05:17 650 MG Meropenem 50 ml @ 17 mls/hr Q12HR IV 07/23/24 22:00 07/29/24 08:55 17 MLS/HR Fentanyl 25 mcg Q72H TD 07/27/24 10:00 07/27/24 11:06 25 MCG Omeprazole 20 mg DAILY GT 07/28/24 10:00 07/28/24 10:00 20 MG Calcium Acetate 1,334 mg TIDWM PEG 07/28/24 12:33 07/29/24 09:09 1,334 MG Enteral Nutritional Formula 1,000 ml 60ML/HR GT 07/28/24 11:45 Lorazepam 0.25 mg Q12HP PRN PO 07/28/24 17:15 Heparin Sodium (Porcine) 5,000 units Q12HR SC 07/28/24 22:00 07/29/24 09:05 5,000 UNITS Examination: GENERAL:Abnormal, LUNGS:Abnormal, CVS:Normal laboratory and microbiology Laboratory Tests 07/29/24 05:03 Test 07/29/24 05:03 Range/Units Serum Glucose 86 74-106 mg/dL Microbiology Date/Time Source Procedure Growth Status 07/24/24 18:34 Trachea Gram Stain - Final Resulted 07/24/24 18:34 Respiratory Culture - Preliminary Pseudomonas aeruginosa Resulted 07/24/24 15:15 Blood Blood Culture - Preliminary NO GROWTH AFTER 72 HOURS OF INCUBATION. Resulted 07/18/24 22:30 Urine - Suprapubic Aspirate Urine Culture - Final Complete 06/11/24 16:06 Bronchial Washings Gram Stain - Final Complete 06/11/24 16:06 Respiratory Culture - Final Acinetobacter baumannii Pseudomonas aeruginosa Complete 05/30/24 11:45 Pleural Fluid Gram Stain - Final Complete 05/30/24 11:45 Pleural Fluid Body Fluid Culture - Final Complete Problem List/Assessment/Plan Problem List/Assessment/Plan Acute kidney injury on ckd 4 - progressed to ckd 5?/ ESRD Acute respiratory failure advanced a chronic respiratory failure status post trach now trach to wall oxygen Septic shock resolved due to multidrug resistant organisms Peripheral artery disease Coronary artery disease Severe protein calorie malnutrition anemia due to ckd hyperkalemia hyperphosphatemia last HD 07/28/24 HD will be scheduled 3x per week calcium acetate in tube feeds change feeds to renal restricted change to nepro epogen 3x a week Plan discussed with: Patient My Orders My Orders Orders - ANNA ROMERO MD Procedure Category Date Status Time Calcium Acetate PHA 07/28/24 In Process Capsule (Phoslo 12:33 Nutritional PHA 07/28/24 In Process Supplements (Nepro 11:45 Dietary Evaluation Review Comments: 1) If GI is assessible consider Jevity 1.2 @ 60 ml/hr x24 hrs goal rate as tolerated 2) If pt remains NPO >7 days consider TPN to meet at least 75% of estimated needs 3) Advance pt diet when medically feasible to a Cardiac/Renal Specific K2,2gmNA,low phos,60g Pro diet modified per [employer] recommendations 4) Continue current plan of care Expected Outcomes/Goals: 1) Pt to receive adequate nutrition support 2) Pt diet to advance CC Plasma Assessment Blood Product Administration S: [id number] ANNA ROMERO MD Jul 29, 2024 11:42
--- NOTE | 2024-07-29 19:58 | DVHPNRES ---
Progress Note Date Seen: Jul 29, 2024 Resident Creating Document: DANGELO COTO RESIDENT Has the PT tested + for MRSA If YES, has PT been informed?: Yes Medical Necessity Reason Pt with a Central, PICC or Fol: Yes The following are medically ne: Rubio Catheter Reason for rubio catheter: Strict I&O Subjective Review of Systems Patient seen and examined at bedside Patient is currently on T collar at 6 L Patient comprehends and follows commands, is currently able to whisper with the PMV valve. Objective vital signs Vital Sign Date Time Temp Pulse Resp B/P (MAP) Pulse Ox O2 Delivery O2 Flow Rate FiO2 07/29/24 18:08 78 15 93 07/29/24 18:00 Trach Collar 6 28 28 07/29/24 17:39 144/70 07/29/24 12:00 99.3 99.3 Total Intake and Output 07/28/24 07/28/24 07/29/24 15:00 23:00 07:00 Intake Total 384 ml 674 ml Output Total 250 ml 100 ml Balance 134 ml 574 ml medications Current Medications Medications Dose Ordered Sig/[place] Route Start Time Stop Time Status Last Admin Dose Admin Enoxaparin Sodium 40 mg DAILY SC 06/10/24 10:00 UNV Enoxaparin Sodium 40 mg DAILY SC 06/17/24 10:00 UNV Epoetin Calin-epbx 10,000 unit TUTHSA SC 06/17/24 12:00 Hold 06/28/24 08:25 10,000 UNIT Lactulose 30 ml [id number] PRN PEG 07/01/24 10:15 07/27/24 09:15 30 ML Metoprolol Tartrate 50 mg BID PO 07/01/24 22:00 07/29/24 09:10 50 MG Clonidine HCl 0.2 mg BID PO 07/03/24 22:00 07/29/24 09:09 0.2 MG Hydralazine HCl 100 mg Q8HR PO 07/07/24 22:00 07/29/24 13:52 100 MG Heparin Sodium (Porcine) 4,000 units JACKY PRN XX 07/09/24 11:00 Amlodipine Besylate 10 mg DAILY PO 07/11/24 10:00 07/29/24 09:09 10 MG Acetylcysteine 200 mg Q6HR NEB 07/14/24 12:00 07/29/24 17:57 200 MG Albuterol 2.5 mg Q6HR NEB 07/14/24 12:00 07/29/24 17:56 2.5 MG Ipratropium [place] 0.5 mg Q6HR NEB 07/14/24 12:00 07/29/24 17:56 0.5 MG Bumetanide 2 mg BIDD PO 07/19/24 15:00 07/29/24 17:39 2 MG Acetaminophen 650 mg Q6HP PRN PO 07/22/24 19:53 07/28/24 05:17 650 MG Meropenem 50 ml @ 17 mls/hr Q12HR IV 07/23/24 22:00 07/29/24 08:55 17 MLS/HR Fentanyl 25 mcg Q72H TD 07/27/24 10:00 07/27/24 11:06 25 MCG Omeprazole 20 mg DAILY GT 07/28/24 10:00 07/28/24 10:00 20 MG Calcium Acetate 1,334 mg TIDWM PEG 07/28/24 12:33 07/29/24 17:38 1,334 MG Enteral Nutritional Formula 1,000 ml 60ML/HR GT 07/28/24 11:45 Lorazepam 0.25 mg Q12HP PRN PO 07/28/24 17:15 Heparin Sodium (Porcine) 5,000 units Q12HR SC 07/28/24 22:00 07/29/24 09:05 5,000 UNITS Examination Examination General Appearance: Nonverbal, on trach collar, 6 L through nasal cannula continuous Respiratory: Clear to auscultation, Normal air movement, on 6 L through Cardiovascular: Regular rate, Normal S1, Normal S2 Abdominal: Normal bowel sounds, peg tube present, suprapubic catheter present Extremities: Right BKA, 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 Complete 1/3/25 22:30 Urine - Suprapubic Aspirate Urine Culture - Final Complete 06/11/24 16:06 Bronchial Washings Gram Stain - Final Complete 06/11/24 16:06 Respiratory Culture - Final Acinetobacter baumannii Pseudomonas aeruginosa Complete 05/30/24 11:45 Pleural Fluid Gram Stain - Final Complete 05/30/24 11:45 Pleural Fluid Body Fluid Culture - Final Complete Labs and/or images reviewed: Labs reviewed by me, Image(s) reviewed by me Problem List/Assessment/Plan Problem List/Assessment/Plan Assessment/plan Neurology #Sedation -off sedation # acute metabolic encephalopathy likely due to sepsis -resolving, but complete neurological examination cant be accessed as pt is non verbal # history of seizures -History of seizure during last admission (1 month back) used Keppra for 1 week Discontinued Keppra, on 06/16 EEG shows abnormal EEG recording consistent with the presence of a diffuse nonspecific encephalopathic state # history of stroke Old infarct in the right frontal lobe and right parietal occipital lobe, seen on imaging Cardiovascular # shock likely septic -resolved #Hypertension -amlodipine 10 mg daily, clonidine 0.2 mg p.o. b.i.d., hydralazine 100 mg p.o. Q HR, metoprolol 50 mg p.o. b.i.d. Respiratory # acute hypoxic respiratory failure due to pneumonia s/p tracheostomy 06/13 -albuterol p.r.n., ipratropium neb -on 6 L nasal cannula through T collar # aspiration pneumonia, Gram-positive/Gram-negative -currently on IV meropenem # pneumomediastinum and pneumopericardium -seen on imaging # left lower lobe atelectasis -seen on imaging #Recurrent mucus plugging -Mucomyst -repeat CXR -s/p multiple bronchoscopy GI # hepatitis-C positive # status post PEG tube 06/15 Nephrology # FROYLAN due to hemodynamic mediated likely due to sepsis, requiring dialysis - Homer catheter placed on left internal jugular, on 06/26, removed on 07/04 - tunneled catheter placed to the right upper chest 07/04 -received dialysis today -on Bumex tablet 2 mg p.o. b.i.d. -250 cc urine output today # hyponatremia, improved monitor # hyperkalemia -monitor # hypomagnesemia -monitor Urology # UTI -currently on IV meropenam # s/p suprapubic catheter Musculoskeletal/dermatological # status post above-knee amputation - due to peripheral arterial disease # decubitus ulcer -wound care Endocrine # secondary hyperparathyroidism -likely due to FROYLAN/CKD # hypocalcemia due to FROYLAN/CKD -on oral calcium, discontinued # hypoglycemia likely due to sepsis -resolved Hematology/oncology # severe anemia requiring transfusion, anemia of chronic disease, macrocytic anemia -monitor CBC # thrombocytopenia -monitor CBC Infectious disease # septic shock -resolved -currenltly on meropenam Psychiatry #Anxiety -ativan oral PRN LINES/DRAINS/ACCESS: ETT, intubated on 05/28/2024 and tracheostomy performed on 06/11, PEG tube placed on 06/15 IV access Left internal jugular CVC, placed on 06/26 and removed on 07/04 Right IJ hemodialysis catheter placed 07/04 Left upper PICC line Suprapubic catheter, changed on 07/14/2024 Dripps: Off Fentanyl patch 25 mg Off pressor Nutrition Enteral through PEG tube , nepro with carb steady DVT prophylaxis Started on heparin 5000 subc q.12h Peptic ulcer disease prophylaxis Omeprazole 20 mg GT daily Bowel regimen Lactulose 30 mg q.12h Code status discussed with the family for greater than 21 minutes, full code Case discussion with Dr. Isabel patient services rep consulted for subacute care facility Critical care time excluding procedures: 49 minutes Family updated about the condition of the pt over the phone Plan discussed with: Other My Orders My Orders Orders - DANGELO COTO RESIDENT Procedure Category Date Status Time Complete Blood Count LAB 07/30/24 Verified 04:00 Basic Metabolic Panel LAB 07/30/24 Verified 04:00 Magnesium LAB 07/30/24 Verified 04:00 Chest Portable XY 07/30/24 Verified 04:00 Dietary Evaluation Review Comments: 1) If GI is assessible consider Jevity 1.2 @ 60 ml/hr x24 hrs goal rate as tolerated 2) If pt remains NPO >7 days consider TPN to meet at least 75% of estimated needs 3) Advance pt diet when medically feasible to a Cardiac/Renal Specific K2,2gmNA,low phos,60g Pro diet modified per UNDERWRITING INTERN recommendations 4) Continue current plan of care Expected Outcomes/Goals: 1) Pt to receive adequate nutrition support 2) Pt diet to advance CC Plasma Assessment Blood Product Administration S: [id number] Date of Service: Jul 29, 2024 Billing Provider: HOLGER ISABEL MD Common Visit Codes: [id number] CARE 30-74 MIN DANGELO COTO RESIDENT Jul 29, 2024 19:58 HOLGER ISABEL MD Jul 30, 2024 16:05
[2024-07-30] VITALS (30 sets, daily range): BP systolic 118–159; BP diastolic 66–91; PULSE 60–89; RESP 13–28; TEMP 97.8–98.6; O2SAT 89–100
--- NOTE | 2024-07-30 05:26 | DVH ---
CHEST RADIOGRAPH Indication: mech vent Technique: Single frontal view of the chest was obtained Comparison: XY CHEST PORTABLE on DOS: 07/29/24, XY CHEST PORTABLE on DOS: 07/28/24, XY CHEST XRAY 1 VIE W on DOS: 07/26/24, XY CHEST PORTABLE on DOS: 07/25/24, XY CHEST XRAY 1 VIEW on DOS: 07/24/24, XY CHEST P ORTABLE on DOS: 07/29/24 FINDINGS: Lines and tubes: Tracheostomy in the mid thoracic trachea. Right TD catheter with tip in the RA. Left PICC with tip in the SVC. Cardiomediastinal silhouette: Indistinct. Pulmonary vasculature: normal Lung expansion: normal Lung airspace: Patchy left basilar opacities. Lung interstitium: normal Pleura: Small left pleural effusion. Pneumothorax: no Bones: Unremarkable Other: no IMPRESSION: Lines and tubes, as above. Similar lung aeration with small left pleural effusion.
[2024-07-30 06:11] LABS: Basophils # (auto) 0 10 ^3/uL (0-0.2); Basophils % (auto) 0.4 % (0.0-2.0); Eosinophils # (auto) 0.4 10 ^3/uL (0-0.8); Eosinophils % (auto) 7.9 % (0.0-7.0); Hematocrit 22.4 % (41.0-53.0); Hemoglobin 7.5 g/dL (13.5-17.5); Lymphocytes # (auto) 1.3 10 ^3/uL (0.4-5.4); Lymphocytes % (auto) 23.5 % (10.0-50.0); Mean Corpuscular Hemoglobin 32.4 pg (28.0-32.0); Mean Corpuscular Hgb Conc. 33.4 g/dL (32.0-36.0); Monocytes # (auto) 0.6 10 ^3/uL (0-1.3); Neutrophils # (auto) 3.3 10 ^3/uL (1.6-8.6); Neutrophils % (auto) 58.2 % (37.0-80.0); Nucleated Red Blood Cells % 0.2 %; Platelet Count (auto) 205 10^3/uL (140-450); Red Blood Cells 2.32 10^6/uL (4.5-5.90); Red Cell Distribution Width 17.7 % (11.8-14.3); White Blood Cell 5.6 10^3/uL (4.4-10.8)
[2024-07-30 06:17] LABS: Chloride 101 mmol/L (98-107); Potassium 4.8 mmol/L (3.5-5.1); Sodium 140 mmol/L (136-145)
[2024-07-30 06:18] LABS: Anion Gap 4 (5-15); Calcium 9.7 mg/dL (8.7-10.4)
[2024-07-30 06:23] LABS: BUN/Creatinine Ratio 21.8 (10.0-20.0); Glucose 91 mg/dL (74-106)
[2024-07-30 06:24] LABS: Magnesium 2.2 mg/dL (1.6-2.6)
[2024-07-30 06:28] LABS: Blood Urea Nitrogen 67 mg/dL (9-23); Carbon Dioxide 35 mmol/L (20-31)
--- NOTE | 2024-07-30 14:50 | DVHTSRES ---
Transfer Summary Transfer Summary Resident Creating Document: KRANTHITHA RESIDENT Date of Admission May 28, 2024 at 23:54 Date of Transfer: Jul 25, 2024 Transfer Diagnosis Acute Hypoxic Respiratory Failure likely due to pneumonia Septic shock likely due to pneumonia, improved Pneumonia likely due to MRSA, Acinetobacter MDRO, Pseudomonas FROYLAN, possible VMN on ESRD requiring hemodialysis Brief Hx & Hospital Course: Saad Umana is a 65-year-old male with past medical history of CHF, CKD, COPD, dyslipidemia, hypertension, CVA brought to the hospital with shortness of breaths and at the level of consciousness. During hospitalization, patient was diagnosed with septic shock likely due to pneumonia and acute metabolic encephalopathy. Patient was intubated and mechanically ventilated on arrival for airway protection on 05/28/2024. Underwent bronchoscopy 05/30-showed CT chest abdomen and pelvis showed large left and small right pleural effusions with bilateral pneumonia. Atrophic right kidney. Cholelithiasis. Shotty retroperitoneal lymphadenopathy. Advanced atherosclerotic disease. Diffuse anasarca. Decubitus ulcers. Head CT was unremarkable. Patient was started on Lasix 40 IV b.i.d. for anasarca and pleural effusion. Underwent thoracocentesis 05/30 removed 2.5 L. he received 2 units of packed RBCs given the hemoglobin of 6.5 on arrival. Patient was also diagnosed with FROYLAN superimposed on CKD 4, nephrology was consulted. Patient was started on sodium bicarb drip given the acidosis. Diuretics dosage was increased given the low urine output, which did not increase the urine output much and therefore patient had to be started on hemodialysis starting 06/02. Respiratory culture showed MRSA, blood culture showed Staphylococcus and urine grew Enterobacter and E coli and VRE. Patient had infected sacral ulcer with Enterobacter. Respiratory culture from bronchoscopy showed Enterobacter and MRSA. He received IV linezolid and meropenem per culture sensitivity results. Patient was extubated given a CPAP trials which was successful on 06/09. Patient had to be re intubated on 06/10. Subsequently, Tracheostomy is performed on 06/13 and PEG tube is placed on 06/15. Repeat bronchoscopy was done on 06/11 and respiratory culture showed MDRO a CT no bacteria and Pseudomonas. Received IV meropenem and linezolid for 12 days. During the month of June, patient underwent hemodialysis almost thrice a week. Patient has been stable on 6 L trach collar. Fentanyl patch 25 mcg was started given the pain from infected sacral ulcer. Patient was hypotensive and therefore multiple antihypertensive regimen was started including metoprolol 50 mg b.i.d., clonidine 0.2 mg b.i.d. and hydralazine tablets. Patient underwent tunneled IJ catheter placement on 07/04. On 07/08, patient decided to 70s, CT chest ordered showed pneumomediastinum and pneumopericardium along with dislocation of tracheostomy. FiO2 increased to 100%. Patient underwent bronch showed left lower lobe atelectasis due to mucus plugging. Tracheostomy tube was switched to XLT size. Patient intermittently drops his saturation with a increases with tracheal suctioning, has a lot of secretions. Chest PT, acetyl cystine and Mucomyst was started. Nephrology was started Lokelma TID 1 g and Bumex 2 mg p.o. b.i.d.. 07/24, underwent bronchoscopy given the x-ray chest showing left-sided whiteout. Bronchoscopy completed, shows right and left lower lobe atelectasis due to mucus plugging. Patient was having febrile episodes, IV meropenem was started 07/23. At this time, care has been transition to the next ICU resident as of 07/28. Patient has been waiting for transfer to LTAC. critical care time spent in dc planning was 51 mins Date of Service: Jul 25, 2024 Billing Provider: HOLGER ISABEL MD Common Visit Codes: [id number] CARE 30-74 MIN THA CRISOSTOMO Jul 30, 2024 14:49 HOLGER ISABEL MD Aug 03, 2024 16:39
--- NOTE | 2024-07-30 17:18 | MEDREC ---
[facility] Intervention Section I [facility] Intervention: Deescalate AB based on CS (PLEASE CONSIDER REVIEWING COURSE OF THERAPY ACCORDING TO CULTURE RESULTS ) JONATHON RODRIGUEZ PHARMACIST Jul 30, 2024 17:18
--- NOTE | 2024-07-30 17:49 | DVHPN2 ---
Progress Note Date Seen: Jul 30, 2024 Has the PT tested + for MRSA If YES, has PT been informed?: Yes Medical Necessity Reason Pt with a Central, PICC or Fol: Yes The following are medically ne: Rubio Catheter Reason for rubio catheter: Strict I&O Subjective Patient reports: Feels better Objective vital signs Vital Sign Date Time Temp Pulse Resp B/P (MAP) Pulse Ox O2 Delivery O2 Flow Rate FiO2 07/30/24 17:00 69 22 136/70 (92) 96 07/30/24 16:00 Room Air* 0 21 07/30/24 16:00 98.6 98.6 Total Intake and Output 07/29/24 07/29/24 07/30/24 15:00 23:00 07:00 Intake Total 51 ml 682 ml 581 ml Output Total 150 ml 50 ml Balance 51 ml 532 ml 531 ml medications Current Medications Medications Dose Ordered Sig/[place] Route Start Time Stop Time Status Last Admin Dose Admin Enoxaparin Sodium 40 mg DAILY SC 06/10/24 10:00 UNV Enoxaparin Sodium 40 mg DAILY SC 06/17/24 10:00 UNV Epoetin Calin-epbx 10,000 unit TUTHSA SC 06/17/24 12:00 Hold 06/28/24 08:25 10,000 UNIT Lactulose 30 ml [id number] PRN PEG 07/01/24 10:15 07/27/24 09:15 30 ML Metoprolol Tartrate 50 mg BID PO 07/01/24 22:00 07/30/24 09:49 50 MG Clonidine HCl 0.2 mg BID PO 07/03/24 22:00 07/30/24 09:50 0.2 MG Hydralazine HCl 100 mg Q8HR PO 07/07/24 22:00 07/30/24 13:37 100 MG Heparin Sodium (Porcine) 4,000 units JACKY PRN XX 07/09/24 11:00 Amlodipine Besylate 10 mg DAILY PO 07/11/24 10:00 07/29/24 09:09 10 MG Acetylcysteine 200 mg Q6HR NEB 07/14/24 12:00 07/30/24 12:45 200 MG Albuterol 2.5 mg Q6HR NEB 07/14/24 12:00 07/30/24 12:44 2.5 MG Ipratropium [place] 0.5 mg Q6HR NEB 07/14/24 12:00 07/30/24 12:44 0.5 MG Bumetanide 2 mg BIDD PO 07/19/24 15:00 07/30/24 05:04 2 MG Acetaminophen 650 mg Q6HP PRN PO 07/22/24 19:53 07/28/24 05:17 650 MG Meropenem 50 ml @ 17 mls/hr Q12HR IV 07/23/24 22:00 07/30/24 09:58 17 MLS/HR Fentanyl 25 mcg Q72H TD 07/27/24 10:00 07/30/24 10:20 25 MCG Omeprazole 20 mg DAILY GT 07/28/24 10:00 07/30/24 10:17 20 MG Calcium Acetate 1,334 mg TIDWM PEG 07/28/24 12:33 07/30/24 12:00 1,334 MG Enteral Nutritional Formula 1,000 ml 60ML/HR GT 07/28/24 11:45 Lorazepam 0.25 mg Q12HP PRN PO 07/28/24 17:15 Heparin Sodium (Porcine) 5,000 units Q12HR SC 07/28/24 22:00 07/30/24 09:50 5,000 UNITS Examination: GENERAL:Abnormal, LUNGS:Abnormal, CVS:Abnormal laboratory and microbiology Laboratory Tests 07/30/24 04:51 Test 07/30/24 04:51 Range/Units Serum Glucose 91 74-106 mg/dL Microbiology Date/Time Source Procedure Growth Status 07/24/24 18:34 Trachea Gram Stain - Final Complete 07/24/24 18:34 Respiratory Culture - Final Pseudomonas aeruginosa Complete 07/24/24 15:15 Blood Blood Culture - Final NO GROWTH AFTER 5 DAYS OF INCUBATION. Complete 07/18/24 22:30 Urine - Suprapubic Aspirate Urine Culture - Final Complete 06/11/24 16:06 Bronchial Washings Gram Stain - Final Complete 06/11/24 16:06 Respiratory Culture - Final Acinetobacter baumannii Pseudomonas aeruginosa Complete 05/30/24 11:45 Pleural Fluid Gram Stain - Final Complete 05/30/24 11:45 Pleural Fluid Body Fluid Culture - Final Complete Problem List/Assessment/Plan Problem List/Assessment/Plan Acute kidney injury on ckd 4 - progressed to ckd 5?/ ESRD Acute respiratory failure advanced a chronic respiratory failure status post trach now trach to wall oxygen Septic shock resolved due to multidrug resistant organisms Peripheral artery disease Coronary artery disease Severe protein calorie malnutrition anemia due to ckd hyperkalemia hyperphosphatemia HD tomorrow HD will be scheduled 3x per week calcium acetate in tube feeds change feeds to renal restricted change to nepro epogen 3x a week Plan discussed with: Patient Dietary Evaluation Review Comments: 1) If GI is assessible consider Jevity 1.2 @ 60 ml/hr x24 hrs goal rate as tolerated 2) If pt remains NPO >7 days consider TPN to meet at least 75% of estimated needs 3) Advance pt diet when medically feasible to a Cardiac/Renal Specific K2,2gmNA,low phos,60g Pro diet modified per [employer] recommendations 4) Continue current plan of care Expected Outcomes/Goals: 1) Pt to receive adequate nutrition support 2) Pt diet to advance CC Plasma Assessment Blood Product Administration S: [id number] ANNA ROMERO MD Jul 30, 2024 17:49
--- NOTE | 2024-07-30 19:32 | DVHPNRES ---
Progress Note Date Seen: Jul 30, 2024 Resident Creating Document: DANGELO COTO RESIDENT Has the PT tested + for MRSA If YES, has PT been informed?: Yes Medical Necessity Reason Pt with a Central, PICC or Fol: Yes The following are medically ne: Rubio Catheter Reason for rubio catheter: Strict I&O Subjective Review of Systems Patient seen and examined at bedside Patient is currently on PMV valve on room air Patient comprehends and follows commands, is currently able to whisper with the PMV valve. Objective vital signs Vital Sign Date Time Temp Pulse Resp B/P (MAP) Pulse Ox O2 Delivery O2 Flow Rate FiO2 07/30/24 18:45 97.8 72 18 152/77 (102) 91 97.8 07/30/24 16:00 Room Air* 0 21 Total Intake and Output 07/29/24 07/29/24 07/30/24 15:00 23:00 07:00 Intake Total 51 ml 682 ml 581 ml Output Total 150 ml 50 ml Balance 51 ml 532 ml 531 ml medications Current Medications Medications Dose Ordered Sig/[place] Route Start Time Stop Time Status Last Admin Dose Admin Enoxaparin Sodium 40 mg DAILY SC 06/10/24 10:00 UNV Enoxaparin Sodium 40 mg DAILY SC 06/17/24 10:00 UNV Epoetin Calin-epbx 10,000 unit TUTHSA SC 06/17/24 12:00 Hold 06/28/24 08:25 10,000 UNIT Lactulose 30 ml [id number] PRN PEG 07/01/24 10:15 07/27/24 09:15 30 ML Metoprolol Tartrate 50 mg BID PO 07/01/24 22:00 07/30/24 09:49 50 MG Clonidine HCl 0.2 mg BID PO 07/03/24 22:00 07/30/24 09:50 0.2 MG Hydralazine HCl 100 mg Q8HR PO 07/07/24 22:00 07/30/24 13:37 100 MG Heparin Sodium (Porcine) 4,000 units JACKY PRN XX 07/09/24 11:00 Amlodipine Besylate 10 mg DAILY PO 07/11/24 10:00 07/29/24 09:09 10 MG Acetylcysteine 200 mg Q6HR NEB 07/14/24 12:00 07/30/24 12:45 200 MG Albuterol 2.5 mg Q6HR NEB 07/14/24 12:00 07/30/24 12:44 2.5 MG Ipratropium [place] 0.5 mg Q6HR NEB 07/14/24 12:00 07/30/24 12:44 0.5 MG Bumetanide 2 mg BIDD PO 07/19/24 15:00 07/30/24 18:21 2 MG Acetaminophen 650 mg Q6HP PRN PO 07/22/24 19:53 07/28/24 05:17 650 MG Meropenem 50 ml @ 17 mls/hr Q12HR IV 07/23/24 22:00 07/30/24 09:58 17 MLS/HR Fentanyl 25 mcg Q72H TD 07/27/24 10:00 07/30/24 10:20 25 MCG Omeprazole 20 mg DAILY GT 07/28/24 10:00 07/30/24 10:17 20 MG Calcium Acetate 1,334 mg TIDWM PEG 07/28/24 12:33 07/30/24 18:21 1,334 MG Enteral Nutritional Formula 1,000 ml 60ML/HR GT 07/28/24 11:45 Lorazepam 0.25 mg Q12HP PRN PO 07/28/24 17:15 Heparin Sodium (Porcine) 5,000 units Q12HR SC 07/28/24 22:00 07/30/24 09:50 5,000 UNITS Examination Examination General Appearance: Nonverbal, on trach collar, 6 L through nasal cannula continuous Respiratory: Clear to auscultation, Normal air movement, on 6 L through Cardiovascular: Regular rate, Normal S1, Normal S2 Abdominal: Normal bowel sounds, peg tube present, suprapubic catheter present Extremities: Right BKA, 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 Complete 07/18/24 22:30 Urine - Suprapubic Aspirate Urine Culture - Final Complete 06/11/24 16:06 Bronchial Washings Gram Stain - Final Complete 06/11/24 16:06 Respiratory Culture - Final Acinetobacter baumannii Pseudomonas aeruginosa Complete 05/30/24 11:45 Pleural Fluid Gram Stain - Final Complete 05/30/24 11:45 Pleural Fluid Body Fluid Culture - Final Complete Labs and/or images reviewed: Labs reviewed by me, Image(s) reviewed by me Problem List/Assessment/Plan Problem List/Assessment/Plan Assessment/plan Neurology #Sedation -off sedation # acute metabolic encephalopathy likely due to sepsis -resolving, but complete neurological examination cant be accessed as pt is non verbal # history of seizures -History of seizure during last admission (1 month back) used Keppra for 1 week Discontinued Keppra, on 06/16 EEG shows abnormal EEG recording consistent with the presence of a diffuse nonspecific encephalopathic state # history of stroke Old infarct in the right frontal lobe and right parietal occipital lobe, seen on imaging Cardiovascular # shock likely septic -resolved #Hypertension -amlodipine 10 mg daily, clonidine 0.2 mg p.o. b.i.d., hydralazine 100 mg p.o. Q HR, metoprolol 50 mg p.o. b.i.d. Respiratory # acute hypoxic respiratory failure due to pneumonia s/p tracheostomy 06/13 -albuterol p.r.n., ipratropium neb -on T collar , room air # aspiration pneumonia, Gram-positive/Gram-negative -currently on IV meropenem # pneumomediastinum and pneumopericardium -seen on imaging # left lower lobe atelectasis -seen on imaging #Recurrent mucus plugging -Mucomyst -repeat CXR -s/p multiple bronchoscopy GI # hepatitis-C positive # status post PEG tube 06/15 Nephrology # FROYLAN due to hemodynamic mediated likely due to sepsis, requiring dialysis - [place] catheter placed on left internal jugular, on 06/26, removed on 07/04 - tunneled catheter placed to the right upper chest 07/04 -received dialysis today -on Bumex tablet 2 mg p.o. b.i.d. -250 cc urine output today # hyponatremia, improved monitor # hyperkalemia -monitor # hypomagnesemia -monitor Urology # UTI -currently on IV meropenam # s/p suprapubic catheter Musculoskeletal/dermatological # status post above-knee amputation - due to peripheral arterial disease # decubitus ulcer -wound care Endocrine # secondary hyperparathyroidism -likely due to FROYLAN/CKD # hypocalcemia due to FROYLAN/CKD -on oral calcium, discontinued # hypoglycemia likely due to sepsis -resolved Hematology/oncology # severe anemia requiring transfusion, anemia of chronic disease, macrocytic anemia -monitor CBC # thrombocytopenia -monitor CBC Infectious disease # septic shock -resolved -currenltly on meropenam Psychiatry #Anxiety -ativan oral PRN LINES/DRAINS/ACCESS: ETT, intubated on 05/28/2024 and tracheostomy performed on 06/11, PEG tube placed on 06/15 IV access Left internal jugular CVC, placed on 06/26 and removed on 07/04 Right IJ hemodialysis catheter placed 07/04 Left upper PICC line Suprapubic catheter, changed on 07/14/2024 Dripps: Off Fentanyl patch 25 mg Off pressor Nutrition Enteral through PEG tube , nepro with carb steady DVT prophylaxis Started on heparin 5000 subc q.12h Peptic ulcer disease prophylaxis Omeprazole 20 mg GT daily Bowel regimen Lactulose 30 mg q.12h Code status discussed with the family for greater than 21 minutes, full code Case discussion with Dr. Iasbel cargo and ramp services manager consulted for subacute care facility Critical care time excluding procedures: 45 minutes Downgraded to telemetry Family updated about the condition of the pt over the phone Plan discussed with: Other My Orders My Orders Orders - DANGELO COTO Procedure Category Date Status Time Chest Portable XY 07/30/24 Resulted 04:00 Dietary Evaluation Review Comments: 1) If GI is assessible consider Jevity 1.2 @ 60 ml/hr x24 hrs goal rate as tolerated 2) If pt remains NPO >7 days consider TPN to meet at least 75% of estimated needs 3) Advance pt diet when medically feasible to a Cardiac/Renal Specific K2,2gmNA,low phos,60g Pro diet modified per [employer] recommendations 4) Continue current plan of care Expected Outcomes/Goals: 1) Pt to receive adequate nutrition support 2) Pt diet to advance CC Plasma Assessment Blood Product Administration S: [id number] Date of Service: Jul 31, 2024 Billing Provider: HOLGER ISABEL MD Common Visit Codes: [id number] CARE 30-74 MIN DANGELO COTO RESIDENT Jul 30, 2024 19:32 HOLGER ISABEL MD Jul 31, 2024 12:43
[2024-07-30] MEDS: Nepro With Carb Steady 1 Liter Bottle GT SCH (21:16)
[2024-07-31] VITALS (18 sets, daily range): BP systolic 136–167; BP diastolic 69–83; PULSE 69–105; RESP 16–24; TEMP 97.9–98.3; O2SAT 92–100
[2024-07-31 05:35] LABS: Basophils # (auto) 0.1 10 ^3/uL (0-0.2); Basophils % (auto) 0.9 % (0.0-2.0); Eosinophils # (auto) 0.5 10 ^3/uL (0-0.8); Eosinophils % (auto) 7.4 % (0.0-7.0); Hematocrit 25.1 % (41.0-53.0); Hemoglobin 8.2 g/dL (13.5-17.5); Lymphocytes # (auto) 1.3 10 ^3/uL (0.4-5.4); Lymphocytes % (auto) 19.4 % (10.0-50.0); Mean Corpuscular Hemoglobin 31.8 pg (28.0-32.0); Mean Corpuscular Hgb Conc. 32.7 g/dL (32.0-36.0); Mean Corpuscular Volume 97.3 fL (80.0-100.0); Monocytes # (auto) 0.5 10 ^3/uL (0-1.3); Monocytes % (auto) 6.6 % (0.0-12.0); Neutrophils # (auto) 4.5 10 ^3/uL (1.6-8.6); Neutrophils % (auto) 65.7 % (37.0-80.0); Nucleated Red Blood Cells % 0.1 %; Platelet Count (auto) 235 10^3/uL (140-450); Red Blood Cells 2.58 10^6/uL (4.5-5.90); Red Cell Distribution Width 18.1 % (11.8-14.3); White Blood Cell 6.9 10^3/uL (4.4-10.8)
[2024-07-31 05:36] LABS: Anion Gap 6 (5-15); Chloride 99 mmol/L (98-107); Sodium 139 mmol/L (136-145)
[2024-07-31 05:37] LABS: Calcium 10.2 mg/dL (8.7-10.4)
[2024-07-31 05:42] LABS: BUN/Creatinine Ratio 22.2 (10.0-20.0); Glucose 89 mg/dL (74-106); Magnesium 2.3 mg/dL (1.6-2.6)
[2024-07-31 06:17] LABS: Carbon Dioxide 34 mmol/L (20-31); Potassium 5.5 mmol/L (3.5-5.1)
[2024-07-31 06:20] LABS: Blood Urea Nitrogen 81 mg/dL (9-23)
[2024-07-31] MEDS: ALBUTEROL SULF 2.5 MG/0.5ML(0.5%) NEB SOLN NEB ONE (10:29)
--- NOTE | 2024-07-31 10:44 | DVH ---
CHEST RADIOGRAPH Indication: SOB r/o mucus plug Technique: Single frontal view of the chest was obtained Comparison: XY CHEST PORTABLE on DOS: 07/30/24, XY CHEST PORTABLE on DOS: 07/29/24, XY CHEST PORTABLE o n DOS: 07/28/24, XY CHEST XRAY 1 VIEW on DOS: 07/26/24, XY CHEST PORTABLE on DOS: 07/25/24, XY CHEST POR TABLE on DOS: 07/30/24 FINDINGS: Lines and tubes: Tracheostomy in the mid thoracic trachea. Right TD catheter with tip in the RA. Left PICC with tip in the SVC. Cardiomediastinal silhouette: Indistinct. Pulmonary vasculature: normal Lung expansion: normal Lung airspace: Patchy left basilar opacities. Lung interstitium: normal Pleura: Small left pleural effusion. Pneumothorax: no Bones: Unremarkable Other: no IMPRESSION: Lines and tubes, as above. Similar lung aeration with small left pleural effusion.
[2024-07-31] MEDS: LORazepam 0.5 MG TAB PO PRN (11:11)
[2024-07-31] MEDS: SODIUM CHL 0.9% 1000 ML BAG XX ONE (11:59)
--- NOTE | 2024-07-31 14:23 | DVHPN2 ---
Progress Note Date Seen: Jul 31, 2024 Has the PT tested + for MRSA If YES, has PT been informed?: Yes Medical Necessity Reason Pt with a Central, PICC or Fol: Yes The following are medically ne: Rubio Catheter Reason for rubio catheter: Strict I&O Subjective Patient reports: Feels better Objective vital signs Vital Sign Date Time Temp Pulse Resp B/P (MAP) Pulse Ox O2 Delivery O2 Flow Rate FiO2 07/31/24 12:16 98.0 95 17 136/72 (93) 97 98.0 07/31/24 11:37 Trach Collar 7.0 07/31/24 11:37 N/A Total Intake and Output 07/30/24 07/30/24 07/31/24 15:00 23:00 07:00 Intake Total 51 ml 730 ml 50 ml Output Total 275 ml 100 ml Balance 51 ml 455 ml -50 ml medications Current Medications Medications Dose Ordered Sig/[place] Route Start Time Stop Time Status Last Admin Dose Admin Enoxaparin Sodium 40 mg DAILY SC 06/10/24 10:00 UNV Enoxaparin Sodium 40 mg DAILY SC 06/17/24 10:00 UNV Epoetin Calin-epbx 10,000 unit TUTHSA SC 06/17/24 12:00 Hold 06/28/24 08:25 10,000 UNIT Lactulose 30 ml [id number] PRN PEG 07/01/24 10:15 07/27/24 09:15 30 ML Metoprolol Tartrate 50 mg BID PO 07/01/24 22:00 07/31/24 11:08 50 MG Clonidine HCl 0.2 mg BID PO 07/03/24 22:00 07/31/24 11:08 0.2 MG Hydralazine HCl 100 mg Q8HR PO 07/07/24 22:00 07/31/24 05:27 100 MG Heparin Sodium (Porcine) 4,000 units JACKY PRN XX 07/09/24 11:00 Amlodipine Besylate 10 mg DAILY PO 07/11/24 10:00 07/31/24 11:07 10 MG Acetylcysteine 200 mg Q6HR NEB 07/14/24 12:00 07/31/24 06:12 200 MG Albuterol 2.5 mg Q6HR NEB 07/14/24 12:00 07/31/24 06:12 2.5 MG Ipratropium [place] 0.5 mg Q6HR NEB 07/14/24 12:00 07/31/24 11:37 0.5 MG Bumetanide 2 mg BIDD PO 07/19/24 15:00 07/31/24 05:27 2 MG Acetaminophen 650 mg Q6HP PRN PO 07/22/24 19:53 07/28/24 05:17 650 MG Meropenem 50 ml @ 17 mls/hr Q12HR IV 07/23/24 22:00 07/31/24 11:12 17 MLS/HR Fentanyl 25 mcg Q72H TD 07/27/24 10:00 07/30/24 10:20 25 MCG Omeprazole 20 mg DAILY GT 07/28/24 10:00 07/31/24 11:12 20 MG Calcium Acetate 1,334 mg TIDWM PEG 07/28/24 12:33 07/31/24 11:09 1,334 MG Enteral Nutritional Formula 1,000 ml 60ML/HR GT 07/28/24 11:45 07/30/24 21:16 1,000 ML Lorazepam 0.25 mg Q12HP PRN PO 07/28/24 17:15 07/31/24 11:11 0.25 MG Heparin Sodium (Porcine) 5,000 units Q12HR SC 07/28/24 22:00 07/31/24 11:10 5,000 UNITS Examination: GENERAL:Abnormal, LUNGS:Abnormal, ABDOMEN:Abnormal laboratory and microbiology Laboratory Tests 07/31/24 04:43 Test 07/31/24 04:43 Range/Units Serum Glucose 89 74-106 mg/dL Microbiology Date/Time Source Procedure Growth Status 07/24/24 18:34 Trachea Gram Stain - Final Complete 07/24/24 18:34 Respiratory Culture - Final Pseudomonas aeruginosa Complete 07/24/24 15:15 Blood Blood Culture - Final NO GROWTH AFTER 5 DAYS OF INCUBATION. Complete 07/18/24 22:30 Urine - Suprapubic Aspirate Urine Culture - Final Complete 06/11/24 16:06 Bronchial Washings Gram Stain - Final Complete 06/11/24 16:06 Respiratory Culture - Final Acinetobacter baumannii Pseudomonas aeruginosa Complete 05/30/24 11:45 Pleural Fluid Gram Stain - Final Complete 05/30/24 11:45 Pleural Fluid Body Fluid Culture - Final Complete Problem List/Assessment/Plan Problem List/Assessment/Plan Acute kidney injury on ckd 4 - progressed to ckd 5?/ ESRD Acute respiratory failure advanced a chronic respiratory failure status post trach now trach to wall oxygen Septic shock resolved due to multidrug resistant organisms Peripheral artery disease Coronary artery disease Severe protein calorie malnutrition anemia due to ckd hyperkalemia hyperphosphatemia HD today calcium acetate in tube feeds change feeds to renal restricted change to nepro epogen 3x a week Plan discussed with: Patient My Orders My Orders Orders - ANNA ROMERO MD Procedure Category Date Status Time Basic Metabolic Panel LAB 08/01/24 Verified 04:00 Hemodialysis Orders ORDERS 07/31/24 Transmitted 08:13 Dietary Evaluation Review Comments: 1) If GI is assessible consider Jevity 1.2 @ 60 ml/hr x24 hrs goal rate as tolerated 2) If pt remains NPO >7 days consider TPN to meet at least 75% of estimated needs 3) Advance pt diet when medically feasible to a Cardiac/Renal Specific K2,2gmNA,low phos,60g Pro diet modified per [employer] recommendations 4) Continue current plan of care Expected Outcomes/Goals: 1) Pt to receive adequate nutrition support 2) Pt diet to advance CC Plasma Assessment Blood Product Administration S: [id number] ANNA ROMERO MD Jul 31, 2024 14:23
[2024-07-31] MEDS: DEXTROSE (50%) 50ML SYRG IV ONE (14:50)
[2024-07-31] MEDS: InsuLIN REG 1unit/0.01ml Soln (100units/ml) IV ONE (14:51)
--- NOTE | 2024-07-31 20:38 | DVHPNRES ---
Progress Note Date Seen: Jul 31, 2024 Resident Creating Document: DANGELO COTO RESIDENT Has the PT tested + for MRSA If YES, has PT been informed?: Yes Medical Necessity Reason Pt with a Central, PICC or Fol: Yes The following are medically ne: Rubio Catheter Reason for rubio catheter: Strict I&O Subjective Review of Systems Patient seen and examined at bedside Patient is currently on 5L 02 Patient comprehends and follows commands. recieved dialysis today Objective vital signs Vital Sign Date Time Temp Pulse Resp B/P (MAP) Pulse Ox O2 Delivery O2 Flow Rate FiO2 07/31/24 18:25 99 20 99 07/31/24 18:15 Trach Collar 6.0 07/31/24 18:15 N/A 07/31/24 17:41 145/69 07/31/24 16:52 98.3 98.3 Total Intake and Output 07/30/24 07/30/24 07/31/24 15:00 23:00 07:00 Intake Total 51 ml 730 ml 50 ml Output Total 275 ml 100 ml Balance 51 ml 455 ml -50 ml medications Current Medications Medications Dose Ordered Sig/[place] Route Start Time Stop Time Status Last Admin Dose Admin Enoxaparin Sodium 40 mg DAILY SC 06/10/24 10:00 UNV Enoxaparin Sodium 40 mg DAILY SC 06/17/24 10:00 UNV Epoetin Calin-epbx 10,000 unit TUTHSA SC 06/17/24 12:00 Hold 06/28/24 08:25 10,000 UNIT Lactulose 30 ml [id number] PRN PEG 07/01/24 10:15 07/27/24 09:15 30 ML Metoprolol Tartrate 50 mg BID PO 07/01/24 22:00 07/31/24 11:08 50 MG Clonidine HCl 0.2 mg BID PO 07/03/24 22:00 07/31/24 11:08 0.2 MG Hydralazine HCl 100 mg Q8HR PO 07/07/24 22:00 07/31/24 15:03 100 MG Heparin Sodium (Porcine) 4,000 units JACKY PRN XX 07/09/24 11:00 Amlodipine Besylate 10 mg DAILY PO 07/11/24 10:00 07/31/24 11:07 10 MG Acetylcysteine 200 mg Q6HR NEB 07/14/24 12:00 07/31/24 18:30 200 MG Albuterol 2.5 mg Q6HR NEB 07/14/24 12:00 07/31/24 18:30 2.5 MG Ipratropium [place] 0.5 mg Q6HR NEB 07/14/24 12:00 07/31/24 18:30 0.5 MG Bumetanide 2 mg BIDD PO 07/19/24 15:00 07/31/24 17:41 2 MG Acetaminophen 650 mg Q6HP PRN PO 07/22/24 19:53 07/31/24 17:42 650 MG Meropenem 50 ml @ 17 mls/hr Q12HR IV 07/23/24 22:00 07/31/24 11:12 17 MLS/HR Fentanyl 25 mcg Q72H TD 07/27/24 10:00 07/30/24 10:20 25 MCG Omeprazole 20 mg DAILY GT 07/28/24 10:00 07/31/24 11:12 20 MG Calcium Acetate 1,334 mg TIDWM PEG 07/28/24 12:33 07/31/24 17:41 1,334 MG Enteral Nutritional Formula 1,000 ml 60ML/HR GT 07/28/24 11:45 07/30/24 21:16 1,000 ML Lorazepam 0.25 mg Q12HP PRN PO 07/28/24 17:15 07/31/24 11:11 0.25 MG Heparin Sodium (Porcine) 5,000 units Q12HR SC 07/28/24 22:00 07/31/24 11:10 5,000 UNITS Examination Examination General Appearance: Nonverbal, on trach collar, 6 L through nasal cannula continuous Respiratory: Clear to auscultation, Normal air movement, on 6 L through Cardiovascular: Regular rate, Normal S1, Normal S2 Abdominal: Normal bowel sounds, peg tube present, suprapubic catheter present Extremities: Right BKA, 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 Complete 07/18/24 22:30 Urine - Suprapubic Aspirate Urine Culture - Final Complete 06/11/24 16:06 Bronchial Washings Gram Stain - Final Complete 06/11/24 16:06 Respiratory Culture - Final Acinetobacter baumannii Pseudomonas aeruginosa Complete 05/30/24 11:45 Pleural Fluid Gram Stain - Final Complete 05/30/24 11:45 Pleural Fluid Body Fluid Culture - Final Complete Labs and/or images reviewed: Labs reviewed by me, Image(s) reviewed by me Problem List/Assessment/Plan Problem List/Assessment/Plan Assessment/plan Neurology #Sedation -off sedation # acute metabolic encephalopathy likely due to sepsis -resolving, but complete neurological examination cant be accessed as pt is non verbal # history of seizures -History of seizure during last admission (1 month back) used Keppra for 1 week Discontinued Keppra, on 06/16 EEG shows abnormal EEG recording consistent with the presence of a diffuse nonspecific encephalopathic state # history of stroke Old infarct in the right frontal lobe and right parietal occipital lobe, seen on imaging Cardiovascular # shock likely septic -resolved #Hypertension -amlodipine 10 mg daily, clonidine 0.2 mg p.o. b.i.d., hydralazine 100 mg p.o. Q HR, metoprolol 50 mg p.o. b.i.d. Respiratory # acute hypoxic respiratory failure due to pneumonia s/p tracheostomy 06/13 -albuterol p.r.n., ipratropium neb -on T collar , room air # aspiration pneumonia, Gram-positive/Gram-negative -currently on IV meropenem # pneumomediastinum and pneumopericardium -seen on imaging # left lower lobe atelectasis -seen on imaging #Recurrent mucus plugging -Mucomyst -repeat CXR -s/p multiple bronchoscopy GI # hepatitis-C positive # status post PEG tube 06/15 Nephrology # FROYLAN due to hemodynamic mediated likely due to sepsis, requiring dialysis - Homer catheter placed on left internal jugular, on 06/26, removed on 07/04 - tunneled catheter placed to the right upper chest 07/04 -received dialysis today -on Bumex tablet 2 mg p.o. b.i.d. -250 cc urine output today # hyponatremia, improved monitor # hyperkalemia -monitor # hypomagnesemia -monitor Urology # UTI -currently on IV meropenem # s/p suprapubic catheter Musculoskeletal/dermatological # status post above-knee amputation - due to peripheral arterial disease # decubitus ulcer -wound care Endocrine # secondary hyperparathyroidism -likely due to FROYLAN/CKD # hypocalcemia due to FROYLAN/CKD -on oral calcium, discontinued # hypoglycemia likely due to sepsis -resolved Hematology/oncology # severe anemia requiring transfusion, anemia of chronic disease, macrocytic anemia -monitor CBC # thrombocytopenia -monitor CBC Infectious disease # septic shock -resolved -currenltly on meropenam Psychiatry #Anxiety -ativan oral PRN LINES/DRAINS/ACCESS: ETT, intubated on 05/28/2024 and tracheostomy performed on 06/11, PEG tube placed on 06/15 IV access Left internal jugular CVC, placed on 06/26 and removed on 07/04 Right IJ hemodialysis catheter placed 07/04 Left upper PICC line Suprapubic catheter, changed on 07/14/2024 Drfroylan: Off Fentanyl patch 25 mg Off pressor Nutrition Enteral through PEG tube , nepro with carb steady DVT prophylaxis Started on heparin 5000 subc q.12h Peptic ulcer disease prophylaxis Omeprazole 20 mg GT daily Bowel regimen Lactulose 30 mg q.12h Code status discussed with the family for greater than 21 minutes, full code Case discussion with Dr. Isabel director water and waste services consulted for subacute care facility Critical care time excluding procedures: 44 minutes Downgraded to telemetry Family updated about the condition of the pt over the phone Plan discussed with: Other My Orders My Orders Orders - DANGELO COTO RESIDENT Procedure Category Date Status Time Chest Portable XY 07/31/24 Resulted 09:58 Dietary Evaluation Review Comments: 1) If GI is assessible consider Jevity 1.2 @ 60 ml/hr x24 hrs goal rate as tolerated 2) If pt remains NPO >7 days consider TPN to meet at least 75% of estimated needs 3) Advance pt diet when medically feasible to a Cardiac/Renal Specific K2,2gmNA,low phos,60g Pro diet modified per CRNP recommendations 4) Continue current plan of care Expected Outcomes/Goals: 1) Pt to receive adequate nutrition support 2) Pt diet to advance CC Plasma Assessment Blood Product Administration S: [id number] Date of Service: Jul 31, 2024 Billing Provider: HOLGER ISABEL MD Common Visit Codes: [id number] CARE 30-74 MIN DANGELO COTO RESIDENT Jul 31, 2024 20:38 HOLGER ISABEL MD Aug 03, 2024 16:52
[2024-08-01] VITALS (19 sets, daily range): BP systolic 132–156; BP diastolic 70–77; PULSE 68–99; RESP 16–20; TEMP 98.1–98.9; O2SAT 92–99
[2024-08-01 09:01] LABS: Basophils # (auto) 0.1 10 ^3/uL (0-0.2); Eosinophils # (auto) 0.4 10 ^3/uL (0-0.8); Eosinophils % (auto) 5.7 % (0.0-7.0); Hematocrit 25.3 % (41.0-53.0); Hemoglobin 8.3 g/dL (13.5-17.5); Lymphocytes # (auto) 1.3 10 ^3/uL (0.4-5.4); Lymphocytes % (auto) 20.7 % (10.0-50.0); Mean Corpuscular Hemoglobin 32.1 pg (28.0-32.0); Mean Corpuscular Hgb Conc. 32.7 g/dL (32.0-36.0); Monocytes # (auto) 0.4 10 ^3/uL (0-1.3); Monocytes % (auto) 6.7 % (0.0-12.0); Neutrophils # (auto) 4.1 10 ^3/uL (1.6-8.6); Neutrophils % (auto) 65.9 % (37.0-80.0); Nucleated Red Blood Cells % 0.1 %; Platelet Count (auto) 213 10^3/uL (140-450); Red Blood Cells 2.58 10^6/uL (4.5-5.90); Red Cell Distribution Width 17.7 % (11.8-14.3); White Blood Cell 6.3 10^3/uL (4.4-10.8)
[2024-08-01 09:12] LABS: Anion Gap 6 (5-15); Chloride 101 mmol/L (98-107); Potassium 4.7 mmol/L (3.5-5.1); Sodium 139 mmol/L (136-145)
[2024-08-01 09:13] LABS: Calcium 9.8 mg/dL (8.7-10.4)
[2024-08-01 09:18] LABS: BUN/Creatinine Ratio 22.4 (10.0-20.0); Glucose 104 mg/dL (74-106); Magnesium 2.2 mg/dL (1.6-2.6)
[2024-08-01 09:21] LABS: Blood Urea Nitrogen 69 mg/dL (9-23); Carbon Dioxide 32 mmol/L (20-31)
--- NOTE | 2024-08-01 16:19 | DVHPNRES ---
Progress Note Date Seen: Aug 01, 2024 Resident Creating Document: DANGELO COTO RESIDENT Has the PT tested + for MRSA If YES, has PT been informed?: Yes Medical Necessity Reason Pt with a Central, PICC or Fol: Yes The following are medically ne: Rubio Catheter Reason for rubio catheter: Strict I&O Subjective Review of Systems Patient seen and examined at bedside Patient is currently on 6L 02 Patient comprehends and follows commands. recieved dialysis yesterday Objective vital signs Vital Sign Date Time Temp Pulse Resp B/P (MAP) Pulse Ox O2 Delivery O2 Flow Rate FiO2 08/01/24 13:38 176/77 08/01/24 12:57 98.9 75 16 96 98.9 08/01/24 11:48 T-piece 6.0 08/01/24 11:48 28 28 Total Intake and Output 07/31/24 07/31/24 08/01/24 15:00 23:00 07:00 Intake Total 50 ml 720 ml 1010 ml Output Total 50 ml 250 ml Balance 50 ml 670 ml 760 ml medications Current Medications Medications Dose Ordered Sig/[place] Route Start Time Stop Time Status Last Admin Dose Admin Enoxaparin Sodium 40 mg DAILY SC 06/10/24 10:00 UNV Enoxaparin Sodium 40 mg DAILY SC 06/17/24 10:00 UNV Epoetin Calin-epbx 10,000 unit TUTHSA SC 06/17/24 12:00 Hold 06/28/24 08:25 10,000 UNIT Lactulose 30 ml [id number] PRN PEG 07/01/24 10:15 07/27/24 09:15 30 ML Metoprolol Tartrate 50 mg BID PO 07/01/24 22:00 08/01/24 08:48 50 MG Clonidine HCl 0.2 mg BID PO 07/03/24 22:00 08/01/24 08:49 0.2 MG Hydralazine HCl 100 mg Q8HR PO 07/07/24 22:00 08/01/24 13:38 100 MG Heparin Sodium (Porcine) 4,000 units JACKY PRN XX 07/09/24 11:00 Amlodipine Besylate 10 mg DAILY PO 07/11/24 10:00 08/01/24 08:48 10 MG Acetylcysteine 200 mg Q6HR NEB 07/14/24 12:00 08/01/24 11:48 200 MG Albuterol 2.5 mg Q6HR NEB 07/14/24 12:00 08/01/24 11:48 2.5 MG Ipratropium [place] 0.5 mg Q6HR NEB 07/14/24 12:00 08/01/24 11:48 0.5 MG Bumetanide 2 mg BIDD PO 07/19/24 15:00 08/01/24 05:38 2 MG Acetaminophen 650 mg Q6HP PRN PO 07/22/24 19:53 07/31/24 23:20 650 MG Meropenem 50 ml @ 17 mls/hr Q12HR IV 07/23/24 22:00 08/01/24 08:39 17 MLS/HR Fentanyl 25 mcg Q72H TD 07/27/24 10:00 07/30/24 10:20 25 MCG Omeprazole 20 mg DAILY GT 07/28/24 10:00 08/01/24 08:39 20 MG Calcium Acetate 1,334 mg TIDWM PEG 07/28/24 12:33 08/01/24 11:57 1,334 MG Enteral Nutritional Formula 1,000 ml 60ML/HR GT 07/28/24 11:45 07/30/24 21:16 1,000 ML Lorazepam 0.25 mg Q12HP PRN PO 07/28/24 17:15 07/31/24 23:21 0.25 MG Heparin Sodium (Porcine) 5,000 units Q12HR SC 07/28/24 22:00 08/01/24 08:40 5,000 UNITS Examination Examination General Appearance: Nonverbal, on trach collar, 6 L through nasal cannula continuous Respiratory: Clear to auscultation, Normal air movement, on 6 L through Cardiovascular: Regular rate, Normal S1, Normal S2 Abdominal: Normal bowel sounds, peg tube present, suprapubic catheter present Extremities: Right BKA, 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 Complete 07/18/24 22:30 Urine - Suprapubic Aspirate Urine Culture - Final Complete 06/11/24 16:06 Bronchial Washings Gram Stain - Final Complete 06/11/24 16:06 Respiratory Culture - Final Acinetobacter baumannii Pseudomonas aeruginosa Complete 05/30/24 11:45 Pleural Fluid Gram Stain - Final Complete 05/30/24 11:45 Pleural Fluid Body Fluid Culture - Final Complete Labs and/or images reviewed: Labs reviewed by me, Image(s) reviewed by me Problem List/Assessment/Plan Problem List/Assessment/Plan Assessment/plan Neurology #Sedation -off sedation # acute metabolic encephalopathy likely due to sepsis -resolving, but complete neurological examination cant be accessed as pt is non verbal # history of seizures -History of seizure during last admission (1 month back) used Keppra for 1 week Discontinued Keppra, on 06/16 EEG shows abnormal EEG recording consistent with the presence of a diffuse nonspecific encephalopathic state # history of stroke Old infarct in the right frontal lobe and right parietal occipital lobe, seen on imaging Cardiovascular # shock likely septic -resolved #Hypertension -amlodipine 10 mg daily, clonidine 0.2 mg p.o. b.i.d., hydralazine 100 mg p.o. Q HR, metoprolol 50 mg p.o. b.i.d. Respiratory # acute hypoxic respiratory failure due to pneumonia s/p tracheostomy 06/13 -albuterol p.r.n., ipratropium neb -on T collar , room air # aspiration pneumonia, Gram-positive/Gram-negative -currently on IV meropenem # pneumomediastinum and pneumopericardium -seen on imaging # left lower lobe atelectasis -seen on imaging #Recurrent mucus plugging -Mucomyst -repeat CXR -s/p multiple bronchoscopy GI # hepatitis-C positive # status post PEG tube 06/15 Nephrology # FROYLAN due to hemodynamic mediated likely due to sepsis, requiring dialysis - Homer catheter placed on left internal jugular, on 06/26, removed on 07/04 - tunneled catheter placed to the right upper chest 07/04 -received dialysis today -on Bumex tablet 2 mg p.o. b.i.d. -250 cc urine output today # hyponatremia, improved monitor # hyperkalemia -monitor # hypomagnesemia -monitor Urology # UTI -currently on IV meropenem # s/p suprapubic catheter Musculoskeletal/dermatological # status post above-knee amputation - due to peripheral arterial disease # decubitus ulcer -wound care Endocrine # secondary hyperparathyroidism -likely due to FROYLAN/CKD # hypocalcemia due to FROYLAN/CKD -on oral calcium, discontinued # hypoglycemia likely due to sepsis -resolved Hematology/oncology # severe anemia requiring transfusion, anemia of chronic disease, macrocytic anemia -monitor CBC # thrombocytopenia -monitor CBC Infectious disease # septic shock -resolved -currenltly on meropenam Psychiatry #Anxiety -ativan oral PRN LINES/DRAINS/ACCESS: ETT, intubated on 05/28/2024 and tracheostomy performed on 06/11, PEG tube placed on 06/15 IV access Left internal jugular CVC, placed on 06/26 and removed on 07/04 Right IJ hemodialysis catheter placed 07/04 Left upper PICC line Suprapubic catheter, changed on 07/14/2024 Jamil: Off Fentanyl patch 25 mg Off pressor Nutrition Enteral through PEG tube , nepro with carb steady DVT prophylaxis Started on heparin 5000 subc q.12h Peptic ulcer disease prophylaxis Omeprazole 20 mg GT daily Bowel regimen Lactulose 30 mg q.12h Code status discussed with the family for greater than 21 minutes, full code Case discussion with Dr. Urias transportation services representative consulted for subacute care facility, awaiting placement Downgraded to telemetry Plan discussed with: Other Dietary Evaluation Review Comments: 1) If GI is assessible consider Jevity 1.2 @ 60 ml/hr x24 hrs goal rate as tolerated 2) If pt remains NPO >7 days consider TPN to meet at least 75% of estimated needs 3) Advance pt diet when medically feasible to a Cardiac/Renal Specific K2,2gmNA,low phos,60g Pro diet modified per SECURITY LEAD recommendations 4) Continue current plan of care Expected Outcomes/Goals: 1) Pt to receive adequate nutrition support 2) Pt diet to advance CC Plasma Assessment Blood Product Administration S: [id number] Date of Service: Aug 01, 2024 Billing Provider: THAI URIAS DO Common Visit Codes: [id number] INP/OBS CARE(HIGH) DANGELO CTOO RESIDENT Aug 01, 2024 16:19 THAI URIAS DO Aug 01, 2024 16:59
[2024-08-01] MEDS: CEFEPIME 2GM/50ML 50 ML IV SCH (18:38)
--- NOTE | 2024-08-01 19:21 | DVHPN2 ---
Progress Note Date Seen: Aug 01, 2024 Has the PT tested + for MRSA If YES, has PT been informed?: Yes Medical Necessity Reason Pt with a Central, PICC or Fol: Yes The following are medically ne: Rubio Catheter Reason for rubio catheter: Strict I&O Subjective Patient reports: Other Review of Systems: Deferred Objective vital signs Vital Sign Date Time Temp Pulse Resp B/P (MAP) Pulse Ox O2 Delivery O2 Flow Rate FiO2 08/01/24 18:03 74 20 98 08/01/24 17:56 T-piece 6 28 08/01/24 17:53 132/73 08/01/24 17:00 98.4 98.4 Total Intake and Output 07/31/24 07/31/24 08/01/24 15:00 23:00 07:00 Intake Total 50 ml 720 ml 1010 ml Output Total 50 ml 250 ml Balance 50 ml 670 ml 760 ml medications Current Medications Medications Dose Ordered Sig/[place] Route Start Time Stop Time Status Last Admin Dose Admin Enoxaparin Sodium 40 mg DAILY SC 06/10/24 10:00 UNV Enoxaparin Sodium 40 mg DAILY SC 06/17/24 10:00 UNV Epoetin Calin-epbx 10,000 unit TUTHSA SC 06/17/24 12:00 Hold 06/28/24 08:25 10,000 UNIT Lactulose 30 ml [id number] PRN PEG 07/01/24 10:15 07/27/24 09:15 30 ML Metoprolol Tartrate 50 mg BID PO 07/01/24 22:00 08/01/24 08:48 50 MG Clonidine HCl 0.2 mg BID PO 07/03/24 22:00 08/01/24 08:49 0.2 MG Hydralazine HCl 100 mg Q8HR PO 07/07/24 22:00 08/01/24 13:38 100 MG Heparin Sodium (Porcine) 4,000 units JACKY PRN XX 07/09/24 11:00 Amlodipine Besylate 10 mg DAILY PO 07/11/24 10:00 08/01/24 08:48 10 MG Acetylcysteine 200 mg Q6HR NEB 07/14/24 12:00 08/01/24 17:52 200 MG Albuterol 2.5 mg Q6HR NEB 07/14/24 12:00 08/01/24 17:53 2.5 MG Ipratropium [place] 0.5 mg Q6HR NEB 07/14/24 12:00 08/01/24 17:52 0.5 MG Bumetanide 2 mg BIDD PO 07/19/24 15:00 08/01/24 17:53 2 MG Acetaminophen 650 mg Q6HP PRN PO 07/22/24 19:53 08/01/24 17:53 650 MG Fentanyl 25 mcg Q72H TD 07/27/24 10:00 07/30/24 10:20 25 MCG Omeprazole 20 mg DAILY GT 07/28/24 10:00 08/01/24 08:39 20 MG Calcium Acetate 1,334 mg TIDWM PEG 07/28/24 12:33 08/01/24 17:53 1,334 MG Enteral Nutritional Formula 1,000 ml 60ML/HR GT 07/28/24 11:45 07/30/24 21:16 1,000 ML Lorazepam 0.25 mg Q12HP PRN PO 07/28/24 17:15 07/31/24 23:21 0.25 MG Heparin Sodium (Porcine) 5,000 units Q12HR SC 07/28/24 22:00 08/01/24 08:40 5,000 UNITS Cefepime/Dextrose 50 ml @ 12.5 mls/hr Q24H IV 08/01/24 19:00 08/01/24 18:38 12.5 MLS/HR Examination: MSK:Abnormal laboratory and microbiology Laboratory Tests 08/01/24 08:50 Test 08/01/24 08:50 Range/Units Serum Glucose 104 74-106 mg/dL Microbiology Date/Time Source Procedure Growth Status 07/24/24 18:34 Trachea Gram Stain - Final Complete 07/24/24 18:34 Respiratory Culture - Final Pseudomonas aeruginosa Complete 07/24/24 15:15 Blood Blood Culture - Final NO GROWTH AFTER 5 DAYS OF INCUBATION. Complete 07/18/24 22:30 Urine - Suprapubic Aspirate Urine Culture - Final Complete 06/11/24 16:06 Bronchial Washings Gram Stain - Final Complete 06/11/24 16:06 Respiratory Culture - Final Acinetobacter baumannii Pseudomonas aeruginosa Complete 05/30/24 11:45 Pleural Fluid Gram Stain - Final Complete 05/30/24 11:45 Pleural Fluid Body Fluid Culture - Final Complete Problem List/Assessment/Plan Problem List/Assessment/Plan Acute kidney injury on chronic kidney disease stage 4 -> likely septic ATN needing HD Acute respiratory failure on vent Anemia suspected due to low blood loss s/p PRBC Hypernatremia Hypokalemia Metabolic acidosis Chronic urinary retention sepsis due to bacteremia recs HD sunday Plan discussed with: Other Dietary Evaluation Review Comments: 1) If GI is assessible consider Jevity 1.2 @ 60 ml/hr x24 hrs goal rate as tolerated 2) If pt remains NPO >7 days consider TPN to meet at least 75% of estimated needs 3) Advance pt diet when medically feasible to a Cardiac/Renal Specific K2,2gmNA,low phos,60g Pro diet modified per DETONATOR MAKER recommendations 4) Continue current plan of care Expected Outcomes/Goals: 1) Pt to receive adequate nutrition support 2) Pt diet to advance CC Plasma Assessment Blood Product Administration S: [id number] SUKI MERINO MD Aug 01, 2024 19:21
[2024-08-02] VITALS (16 sets, daily range): BP systolic 132–152; BP diastolic 60–76; PULSE 70–83; RESP 16–20; TEMP 97.9–98.8; O2SAT 90–99
[2024-08-02 07:32] LABS: Basophils # (auto) 0.1 10 ^3/uL (0-0.2); Basophils % (auto) 0.9 % (0.0-2.0); Eosinophils # (auto) 0.3 10 ^3/uL (0-0.8); Eosinophils % (auto) 5.8 % (0.0-7.0); Hematocrit 26.6 % (41.0-53.0); Hemoglobin 8.8 g/dL (13.5-17.5); Lymphocytes # (auto) 1.2 10 ^3/uL (0.4-5.4); Lymphocytes % (auto) 21.4 % (10.0-50.0); Mean Corpuscular Hemoglobin 32.5 pg (28.0-32.0); Mean Corpuscular Hgb Conc. 33.3 g/dL (32.0-36.0); Mean Corpuscular Volume 97.6 fL (80.0-100.0); Monocytes # (auto) 0.4 10 ^3/uL (0-1.3); Neutrophils # (auto) 3.7 10 ^3/uL (1.6-8.6); Neutrophils % (auto) 64.9 % (37.0-80.0); Nucleated Red Blood Cells % 0.2 %; Platelet Count (auto) 230 10^3/uL (140-450); Red Blood Cells 2.72 10^6/uL (4.5-5.90); Red Cell Distribution Width 17.5 % (11.8-14.3); White Blood Cell 5.7 10^3/uL (4.4-10.8)
[2024-08-02 08:23] LABS: Chloride 100 mmol/L (98-107); Potassium 4.8 mmol/L (3.5-5.1); Sodium 137 mmol/L (136-145)
[2024-08-02 08:24] LABS: Anion Gap 6 (5-15)
[2024-08-02 08:25] LABS: Calcium 10.2 mg/dL (8.7-10.4)
[2024-08-02 08:30] LABS: BUN/Creatinine Ratio 23.1 (10.0-20.0); Glucose 104 mg/dL (74-106); Magnesium 2.4 mg/dL (1.6-2.6)
[2024-08-02 08:36] LABS: Carbon Dioxide 31 mmol/L (20-31)
[2024-08-02 08:37] LABS: Blood Urea Nitrogen 83 mg/dL (9-23)
--- NOTE | 2024-08-02 14:15 | DVHPN2 ---
Subjective The patient seen and examined at bedside. No change overnight. Continue required frequent suction due to thick and copious mucus. Son at bedside. Reviewed: Care Plan, H&P, Labs, Medications, Previous Orders, Radiology, Other Changes from previous H/P or p: No Changes General: Per HPI Objective Vitals Vital Signs Date Time Temp Pulse Resp B/P (MAP) Pulse Ox O2 Delivery O2 Flow Rate FiO2 08/02/24 13:31 139/76 08/02/24 13:00 98.6 70 16 95 98.6 08/02/24 08:16 Trach Collar 6 28 28 Intake/Output Intake and Output 08/02/24 07:00 Intake Total 100 ml Output Total 580 ml Balance -480 ml IV Total 100 ml Output Urine Total 280 ml Stool Total 300 ml General Appearance: Alert, mild distress, Other (Sedated) HEENT: Atraumatic, PERRLA, EOMI, Mucous membr. moist/pink Neck: Supple Cardiovascular: Regular rate, Normal S1, Normal S2, No murmurs Abdomen: Normal bowel sounds, Soft, No tenderness Extremities: Other (Some bilateral lower extremity edema) Psych/Mental Status: Mental status NL Medications Current Medications Medications Dose Ordered Sig/[place] Route Start Time Stop Time Status Last Admin Dose Admin Enoxaparin Sodium 40 mg DAILY SC 06/10/24 10:00 UNV Enoxaparin Sodium 40 mg DAILY SC 06/17/24 10:00 UNV Epoetin Calin-epbx 10,000 unit TUTHSA SC 06/17/24 12:00 Hold 06/28/24 08:25 10,000 UNIT Lactulose 30 ml [id number] PRN PEG 07/01/24 10:15 07/27/24 09:15 30 ML Metoprolol Tartrate 50 mg BID PO 07/01/24 22:00 08/02/24 08:59 50 MG Clonidine HCl 0.2 mg BID PO 07/03/24 22:00 08/02/24 09:01 0.2 MG Hydralazine HCl 100 mg Q8HR PO 07/07/24 22:00 08/02/24 13:31 100 MG Heparin Sodium (Porcine) 4,000 units JACKY PRN XX 07/09/24 11:00 Amlodipine Besylate 10 mg DAILY PO 07/11/24 10:00 08/02/24 09:00 10 MG Acetylcysteine 200 mg Q6HR NEB 07/14/24 12:00 08/02/24 12:35 200 MG Albuterol 2.5 mg Q6HR NEB 07/14/24 12:00 08/02/24 12:35 2.5 MG Ipratropium [place] 0.5 mg Q6HR NEB 07/14/24 12:00 08/02/24 12:35 0.5 MG Bumetanide 2 mg BIDD PO 07/19/24 15:00 08/02/24 05:27 2 MG Acetaminophen 650 mg Q6HP PRN PO 07/22/24 19:53 08/02/24 05:25 650 MG Fentanyl 25 mcg Q72H TD 07/27/24 10:00 08/02/24 09:08 25 MCG Omeprazole 20 mg DAILY GT 07/28/24 10:00 08/02/24 09:08 20 MG Calcium Acetate 1,334 mg TIDWM PEG 07/28/24 12:33 08/02/24 13:16 1,334 MG Enteral Nutritional Formula 1,000 ml 60ML/HR GT 07/28/24 11:45 07/30/24 21:16 1,000 ML Lorazepam 0.25 mg Q12HP PRN PO 07/28/24 17:15 08/01/24 21:00 0.25 MG Heparin Sodium (Porcine) 5,000 units Q12HR SC 07/28/24 22:00 08/02/24 09:02 5,000 UNITS Cefepime/Dextrose 50 ml @ 12.5 mls/hr Q24H IV 08/01/24 19:00 08/01/24 18:38 12.5 MLS/HR Laboratory Results Laboratory Tests 08/02/24 06:54 Chemistry Test 08/02/24 06:54 Calcium Level 10.2 mg/dL (8.7-10.4) Magnesium Level 2.4 mg/dL (1.6-2.6) Urinalysis Test 05/28/24 22:36 05/30/24 04:30 07/18/24 22:30 Urine WBC Clumps Present /hpf (None Seen) Urine Creatinine 33.57 mg/dL (30.0-125.0) Urine Sodium 85 mmol/L (40-220) Urine Color Yellow (Yellow) Urine Clarity Turbid (Clear) H Urine pH 8.5 (5.0-9.0) Urine Specific [place] 1.016 (1.001-1.035) Urine Protein 3+ (Negative) H Urine Ketones Negative (Negative) Urine Blood Negative /uL (Negative) Urine Nitrite Negative (Negative) Urine Bilirubin Negative (Negative) Urine Urobilinogen Normal mg/dL (Negative) Urine Leukocyte Esterase 1+ /uL (Negative) Urine RBC 9 /hpf (0 - 3) Urine WBC 38 /hpf (0 - 3) Urine Squamous Epithelial Cells Mod /hpf (<5) Urine Transitional Epithelial Cells Few /hpf (<2) Urine Renal Epithelial Cells Few /hpf (None Seen) Urine Bacteria Few /hpf (None Seen) H Urine Mucus Few (None Seen) Urine Glucose 1+ mg/dL (Normal) H Microbiology Microbiology Date/Time Source Procedure Growth Status 07/24/24 18:34 Trachea Gram Stain - Final Complete 07/24/24 18:34 Respiratory Culture - Final Pseudomonas aeruginosa Complete 07/24/24 15:15 Blood Blood Culture - Final NO GROWTH AFTER 5 DAYS OF INCUBATION. Complete 07/18/24 22:30 Urine - Suprapubic Aspirate Urine Culture - Final Complete 06/11/24 16:06 Bronchial Washings Gram Stain - Final Complete 06/11/24 16:06 Respiratory Culture - Final Acinetobacter baumannii Pseudomonas aeruginosa Complete 05/30/24 11:45 Pleural Fluid Gram Stain - Final Complete 05/30/24 11:45 Pleural Fluid Body Fluid Culture - Final Complete Labs and/or images reviewed: Labs reviewed by me Assessment/Plan Assessment/Plan Neurology #Sedation -off sedation # acute metabolic encephalopathy likely due to sepsis -resolving, but complete neurological examination cant be accessed as pt is non verbal # history of seizures -History of seizure during last admission (1 month back) used Keppra for 1 week Discontinued Keppra, on 06/16 EEG shows abnormal EEG recording consistent with the presence of a diffuse nonspecific encephalopathic state # history of stroke Old infarct in the right frontal lobe and right parietal occipital lobe, seen on imaging Cardiovascular # shock likely septic -resolved #Hypertension -amlodipine 10 mg daily, clonidine 0.2 mg p.o. b.i.d., hydralazine 100 mg p.o. Q HR, metoprolol 50 mg p.o. b.i.d. Respiratory # acute hypoxic respiratory failure due to pneumonia s/p tracheostomy 06/13 -albuterol p.r.n., ipratropium neb -on T collar , room air # aspiration pneumonia, Gram-positive/Gram-negative -currently on IV meropenem # pneumomediastinum and pneumopericardium -seen on imaging # left lower lobe atelectasis -seen on imaging #Recurrent mucus plugging -Mucomyst -repeat CXR -s/p multiple bronchoscopy GI # hepatitis-C positive # status post PEG tube 06/15 Nephrology # FROYLAN due to hemodynamic mediated likely due to sepsis, requiring dialysis - Homer catheter placed on left internal jugular, on 06/26, removed on 07/04 - tunneled catheter placed to the right upper chest 07/04 -received dialysis today -on Bumex tablet 2 mg p.o. b.i.d. -250 cc urine output today # hyponatremia, improved monitor # hyperkalemia -monitor # hypomagnesemia -monitor Urology # UTI -currently on IV meropenem # s/p suprapubic catheter Musculoskeletal/dermatological # status post above-knee amputation - due to peripheral arterial disease # decubitus ulcer -wound care Endocrine # secondary hyperparathyroidism -likely due to FROYLAN/CKD # hypocalcemia due to FROYLAN/CKD -on oral calcium, discontinued # hypoglycemia likely due to sepsis -resolved Hematology/oncology # severe anemia requiring transfusion, anemia of chronic disease, macrocytic anemia -monitor CBC # thrombocytopenia -monitor CBC Infectious disease # septic shock -resolved -currenltly on meropenam Psychiatry #Anxiety -ativan oral PRN LINES/DRAINS/ACCESS: ETT, intubated on 05/28/2024 and tracheostomy performed on 06/11, PEG tube placed on 06/15 IV access Left internal jugular CVC, placed on 06/26 and removed on 07/04 Right IJ hemodialysis catheter placed 07/04 Left upper PICC line Suprapubic catheter, changed on 07/14/2024 Dripps: Off Fentanyl patch 25 mg Off pressor Nutrition Enteral through PEG tube , nepro with carb steady DVT prophylaxis Started on heparin 5000 subc q.12h Peptic ulcer disease prophylaxis Omeprazole 20 mg GT daily Bowel regimen Lactulose 30 mg q.12h Discussed with the patient and his son at bedside regarding to plan of care . Continuing suction. Waiting for placement. This medical document was created using an electronic medical record system with [employer] direct [employer] dictation system. Although this document has been carefully reviewed, there may still be some phonetic and typographical errors. These areas are purely typographical due to imperfections of the software programs, and do not reflect any compromise in the patient's medical care. Plan discussed with: Patient, Son Date of Service: Aug 02, 2024 Billing Provider: MARTÍNEZ SCOTT MD Common Visit Codes: [id number] INP/OBS CARE(HIGH) MARTÍENZ SCOTT MD Aug 02, 2024 14:15
--- NOTE | 2024-08-02 19:13 | DVHPN2 ---
Progress Note Date Seen: Aug 02, 2024 Has the PT tested + for MRSA If YES, has PT been informed?: Yes Medical Necessity Reason Pt with a Central, PICC or Fol: Yes The following are medically ne: Rubio Catheter Reason for rubio catheter: Strict I&O Subjective Patient reports: Other Review of Systems: Deferred Objective vital signs Vital Sign Date Time Temp Pulse Resp B/P (MAP) Pulse Ox O2 Delivery O2 Flow Rate FiO2 08/02/24 17:16 141/72 08/02/24 17:00 98.0 76 16 96 98.0 08/02/24 08:16 Trach Collar 6 28 28 Total Intake and Output 08/01/24 08/01/24 08/02/24 15:00 23:00 07:00 Intake Total 50 ml 50 ml Output Total 450 ml 130 ml Balance 50 ml -400 ml -130 ml medications Current Medications Medications Dose Ordered Sig/[place] Route Start Time Stop Time Status Last Admin Dose Admin Enoxaparin Sodium 40 mg DAILY SC 06/10/24 10:00 UNV Enoxaparin Sodium 40 mg DAILY SC 06/17/24 10:00 UNV Epoetin Calin-epbx 10,000 unit TUTHSA SC 06/17/24 12:00 Hold 06/28/24 08:25 10,000 UNIT Lactulose 30 ml [id number] PRN PEG 07/01/24 10:15 07/27/24 09:15 30 ML Metoprolol Tartrate 50 mg BID PO 07/01/24 22:00 08/02/24 08:59 50 MG Clonidine HCl 0.2 mg BID PO 07/03/24 22:00 08/02/24 09:01 0.2 MG Hydralazine HCl 100 mg Q8HR PO 07/07/24 22:00 08/02/24 13:31 100 MG Heparin Sodium (Porcine) 4,000 units JACKY PRN XX 07/09/24 11:00 Amlodipine Besylate 10 mg DAILY PO 07/11/24 10:00 08/02/24 09:00 10 MG Acetylcysteine 200 mg Q6HR NEB 07/14/24 12:00 08/02/24 17:46 200 MG Albuterol 2.5 mg Q6HR NEB 07/14/24 12:00 08/02/24 17:45 2.5 MG Ipratropium [place] 0.5 mg Q6HR NEB 07/14/24 12:00 08/02/24 17:45 0.5 MG Bumetanide 2 mg BIDD PO 07/19/24 15:00 08/02/24 17:16 2 MG Acetaminophen 650 mg Q6HP PRN PO 07/22/24 19:53 08/02/24 05:25 650 MG Fentanyl 25 mcg Q72H TD 07/27/24 10:00 08/02/24 09:08 25 MCG Omeprazole 20 mg DAILY GT 07/28/24 10:00 08/02/24 09:08 20 MG Calcium Acetate 1,334 mg TIDWM PEG 07/28/24 12:33 08/02/24 17:16 1,334 MG Enteral Nutritional Formula 1,000 ml 60ML/HR GT 07/28/24 11:45 07/30/24 21:16 1,000 ML Lorazepam 0.25 mg Q12HP PRN PO 07/28/24 17:15 08/01/24 21:00 0.25 MG Heparin Sodium (Porcine) 5,000 units Q12HR SC 07/28/24 22:00 08/02/24 09:02 5,000 UNITS Cefepime/Dextrose 50 ml @ 12.5 mls/hr Q24H IV 08/01/24 19:00 08/02/24 18:21 12.5 MLS/HR laboratory and microbiology Laboratory Tests 08/02/24 06:54 Test 08/02/24 06:54 Range/Units Serum Glucose 104 74-106 mg/dL Microbiology Date/Time Source Procedure Growth Status 07/24/24 18:34 Trachea Gram Stain - Final Complete 07/24/24 18:34 Respiratory Culture - Final Pseudomonas aeruginosa Complete 07/24/24 15:15 Blood Blood Culture - Final NO GROWTH AFTER 5 DAYS OF INCUBATION. Complete 07/18/24 22:30 Urine - Suprapubic Aspirate Urine Culture - Final Complete 06/11/24 16:06 Bronchial Washings Gram Stain - Final Complete 06/11/24 16:06 Respiratory Culture - Final Acinetobacter baumannii Pseudomonas aeruginosa Complete 05/30/24 11:45 Pleural Fluid Gram Stain - Final Complete 05/30/24 11:45 Pleural Fluid Body Fluid Culture - Final Complete Problem List/Assessment/Plan Problem List/Assessment/Plan Acute kidney injury on chronic kidney disease stage 4 -> likely septic ATN needing HD Acute respiratory failure on vent Anemia suspected due to low blood loss s/p PRBC Hypernatremia Hypokalemia Metabolic acidosis Chronic urinary retention sepsis due to bacteremia recs HD sunday Plan discussed with: Other Dietary Evaluation Review Comments: 1) If GI is assessible consider Jevity 1.2 @ 60 ml/hr x24 hrs goal rate as tolerated 2) If pt remains NPO >7 days consider TPN to meet at least 75% of estimated needs 3) Advance pt diet when medically feasible to a Cardiac/Renal Specific K2,2gmNA,low phos,60g Pro diet modified per [facility] recommendations 4) Continue current plan of care Expected Outcomes/Goals: 1) Pt to receive adequate nutrition support 2) Pt diet to advance CC Plasma Assessment Blood Product Administration S: [id number] SUKI MERINO MD Aug 02, 2024 19:13
[2024-08-03] VITALS (19 sets, daily range): BP systolic 107–157; BP diastolic 53–79; PULSE 69–93; RESP 16–20; TEMP 97.8–98.5; O2SAT 91–99
--- NOTE | 2024-08-03 17:08 | DVHPN2 ---
Progress Note Date Seen: Aug 03, 2024 Has the PT tested + for MRSA If YES, has PT been informed?: Yes Medical Necessity Reason Pt with a Central, PICC or Fol: Yes The following are medically ne: Rubio Catheter Reason for rubio catheter: Strict I&O Subjective Patient reports: Other Review of Systems: Deferred Objective vital signs Vital Sign Date Time Temp Pulse Resp B/P (MAP) Pulse Ox O2 Delivery O2 Flow Rate FiO2 08/03/24 16:43 97.8 76 16 150/77 (101) 96 97.8 08/03/24 10:58 Trach Collar 6 N/A Total Intake and Output 08/02/24 08/02/24 08/03/24 15:00 23:00 07:00 Intake Total 970 ml 50 ml 1020 ml Output Total 250 ml 150 ml 150 ml Balance 720 ml -100 ml 870 ml medications Current Medications Medications Dose Ordered Sig/[place] Route Start Time Stop Time Status Last Admin Dose Admin Enoxaparin Sodium 40 mg DAILY SC 06/10/24 10:00 UNV Enoxaparin Sodium 40 mg DAILY SC 06/17/24 10:00 UNV Epoetin Calin-epbx 10,000 unit TUTHSA SC 06/17/24 12:00 Hold 06/28/24 08:25 10,000 UNIT Lactulose 30 ml [id number] PRN PEG 07/01/24 10:15 07/27/24 09:15 30 ML Metoprolol Tartrate 50 mg BID PO 07/01/24 22:00 08/03/24 10:38 50 MG Clonidine HCl 0.2 mg BID PO 07/03/24 22:00 08/03/24 10:38 0.2 MG Hydralazine HCl 100 mg Q8HR PO 07/07/24 22:00 08/03/24 13:04 100 MG Heparin Sodium (Porcine) 4,000 units JACKY PRN XX 07/09/24 11:00 Amlodipine Besylate 10 mg DAILY PO 07/11/24 10:00 08/03/24 10:37 10 MG Acetylcysteine 200 mg Q6HR NEB 07/14/24 12:00 08/03/24 10:59 200 MG Albuterol 2.5 mg Q6HR NEB 07/14/24 12:00 08/03/24 10:58 2.5 MG Ipratropium [place] 0.5 mg Q6HR NEB 07/14/24 12:00 08/03/24 10:59 0.5 MG Bumetanide 2 mg BIDD PO 07/19/24 15:00 08/03/24 06:20 2 MG Acetaminophen 650 mg Q6HP PRN PO 07/22/24 19:53 08/03/24 06:21 650 MG Fentanyl 25 mcg Q72H TD 07/27/24 10:00 08/02/24 09:08 25 MCG Omeprazole 20 mg DAILY GT 07/28/24 10:00 08/03/24 10:41 20 MG Calcium Acetate 1,334 mg TIDWM PEG 07/28/24 12:33 08/03/24 13:04 1,334 MG Enteral Nutritional Formula 1,000 ml 60ML/HR GT 07/28/24 11:45 07/30/24 21:16 1,000 ML Lorazepam 0.25 mg Q12HP PRN PO 07/28/24 17:15 08/02/24 22:22 0.25 MG Heparin Sodium (Porcine) 5,000 units Q12HR SC 07/28/24 22:00 08/03/24 10:39 5,000 UNITS Cefepime/Dextrose 50 ml @ 12.5 mls/hr Q24H IV 08/01/24 19:00 08/02/24 18:21 12.5 MLS/HR Examination: GENERAL:Abnormal, LUNGS:Abnormal, MSK:Abnormal, NEURO:Normal, NEURO:Abnormal laboratory and microbiology Laboratory Tests 08/02/24 06:54 Test 08/02/24 06:54 Range/Units Serum Glucose 104 74-106 mg/dL Microbiology Date/Time Source Procedure Growth Status 07/24/24 18:34 Trachea Gram Stain - Final Complete 07/24/24 18:34 Respiratory Culture - Final Pseudomonas aeruginosa Complete 07/24/24 15:15 Blood Blood Culture - Final NO GROWTH AFTER 5 DAYS OF INCUBATION. Complete 07/18/24 22:30 Urine - Suprapubic Aspirate Urine Culture - Final Complete 06/11/24 16:06 Bronchial Washings Gram Stain - Final Complete 06/11/24 16:06 Respiratory Culture - Final Acinetobacter baumannii Pseudomonas aeruginosa Complete 05/30/24 11:45 Pleural Fluid Gram Stain - Final Complete 05/30/24 11:45 Pleural Fluid Body Fluid Culture - Final Complete Problem List/Assessment/Plan Problem List/Assessment/Plan Acute kidney injury on chronic kidney disease stage 4 -> likely septic ATN needing HD Acute respiratory failure on vent Anemia suspected due to low blood loss s/p PRBC Hypernatremia Hypokalemia Metabolic acidosis Chronic urinary retention sepsis due to bacteremia recs HD sunday Plan discussed with: Other My Orders My Orders Orders - SUKI MERINO MD Procedure Category Date Status Time Hemodialysis Orders ORDERS 08/03/24 Transmitted 04:00 Dietary Evaluation Review Comments: 1) If GI is assessible consider Jevity 1.2 @ 60 ml/hr x24 hrs goal rate as tolerated 2) If pt remains NPO >7 days consider TPN to meet at least 75% of estimated needs 3) Advance pt diet when medically feasible to a Cardiac/Renal Specific K2,2gmNA,low phos,60g Pro diet modified per [facility] WRECKER recommendations 4) Continue current plan of care Expected Outcomes/Goals: 1) Pt to receive adequate nutrition support 2) Pt diet to advance CC Plasma Assessment Blood Product Administration S: [id number] SUKI MERINO MD Aug 03, 2024 17:08
--- NOTE | 2024-08-03 22:57 | DVHPN2 ---
Subjective The patient seen and examined at bedside. No change overnight. Continue required frequent suction due to thick and copious mucus. The patient also tried to pull off his trach. Reviewed: Care Plan, H&P, Labs, Medications, Previous Orders, Radiology, Other Changes from previous H/P or p: No Changes General: Per HPI Objective Vitals Vital Signs Date Time Temp Pulse Resp B/P (MAP) Pulse Ox O2 Delivery O2 Flow Rate FiO2 08/03/24: 142/70 08/03/24 21:22 85 08/03/24 21:00 98.5 16 91 98.5 08/03/24 17:59 Trach Collar 6 N/A Intake/Output Intake and Output 08/03/24 07:00 Intake Total 2040 ml Output Total 550 ml Balance 1490 ml Intake Oral 0 ml IV Total 50 ml Tube Feeding 1440 ml Other 550 ml Output Urine Total 300 ml Stool Total 250 ml General Appearance: Alert, mild distress, Other (Sedated) HEENT: Atraumatic, PERRLA, EOMI, Mucous membr. moist/pink Neck: Supple Cardiovascular: Regular rate, Normal S1, Normal S2, No murmurs Abdomen: Normal bowel sounds, Soft, No tenderness Extremities: Other (Some bilateral lower extremity edema) Psych/Mental Status: Mental status NL Medications Current Medications Medications Dose Ordered Sig/[place] Route Start Time Stop Time Status Last Admin Dose Admin Enoxaparin Sodium 40 mg DAILY SC 06/10/24 10:00 UNV Enoxaparin Sodium 40 mg DAILY SC 06/17/24 10:00 UNV Epoetin Calin-epbx 10,000 unit TUTHSA SC 06/17/24 12:00 Hold 06/28/24 08:25 10,000 UNIT Lactulose 30 ml [id number] PRN PEG 07/01/24 10:15 07/27/24 09:15 30 ML Metoprolol Tartrate 50 mg BID PO 07/01/24 22:00 08/03/24 21:22 50 MG Clonidine HCl 0.2 mg BID PO 07/03/24 22:00 08/03/24 21:25 0.2 MG Hydralazine HCl 100 mg Q8HR PO 07/07/24 22:00 08/03/24 21:22 100 MG Heparin Sodium (Porcine) 4,000 units JACKY PRN XX 07/09/24 11:00 08/03/24 17:07 4,000 UNITS Amlodipine Besylate 10 mg DAILY PO 07/11/24 10:00 08/03/24 10:37 10 MG Acetylcysteine 200 mg Q6HR NEB 07/14/24 12:00 08/03/24 17:58 200 MG Albuterol 2.5 mg Q6HR NEB 07/14/24 12:00 08/03/24 17:58 2.5 MG Ipratropium [place] 0.5 mg Q6HR NEB 07/14/24 12:00 08/03/24 17:58 0.5 MG Bumetanide 2 mg BIDD PO 07/19/24 15:00 08/03/24 06:20 2 MG Acetaminophen 650 mg Q6HP PRN PO 07/22/24 19:53 08/03/24 06:21 650 MG Fentanyl 25 mcg Q72H TD 07/27/24 10:00 08/02/24 09:08 25 MCG Omeprazole 20 mg DAILY GT 07/28/24 10:00 08/03/24 10:41 20 MG Calcium Acetate 1,334 mg TIDWM PEG 07/28/24 12:33 08/03/24 13:04 1,334 MG Enteral Nutritional Formula 1,000 ml 60ML/HR GT 07/28/24 11:45 07/30/24 21:16 1,000 ML Lorazepam 0.25 mg Q12HP PRN PO 07/28/24 17:15 08/03/24 21:22 0.25 MG Heparin Sodium (Porcine) 5,000 units Q12HR SC 07/28/24 22:00 08/03/24 21:24 5,000 UNITS Cefepime/Dextrose 50 ml @ 12.5 mls/hr Q24H IV 08/01/24 19:00 08/03/24 18:51 12.5 MLS/HR Laboratory Results Laboratory Tests 08/02/24 06:54 Urinalysis Test 05/28/24 22:36 05/30/24 04:30 07/18/24 22:30 Urine WBC Clumps Present /hpf (None Seen) Urine Creatinine 33.57 mg/dL (30.0-125.0) Urine Sodium 85 mmol/L (40-220) Urine Color Yellow (Yellow) Urine Clarity Turbid (Clear) H Urine pH 8.5 (5.0-9.0) Urine Specific [place] 1.016 (1.001-1.035) Urine Protein 3+ (Negative) H Urine Ketones Negative (Negative) Urine Blood Negative /uL (Negative) Urine Nitrite Negative (Negative) Urine Bilirubin Negative (Negative) Urine Urobilinogen Normal mg/dL (Negative) Urine Leukocyte Esterase 1+ /uL (Negative) Urine RBC 9 /hpf (0 - 3) Urine WBC 38 /hpf (0 - 3) Urine Squamous Epithelial Cells Mod /hpf (<5) Urine Transitional Epithelial Cells Few /hpf (<2) Urine Renal Epithelial Cells Few /hpf (None Seen) Urine Bacteria Few /hpf (None Seen) H Urine Mucus Few (None Seen) Urine Glucose 1+ mg/dL (Normal) H Microbiology Microbiology Date/Time Source Procedure Growth Status 07/24/24 18:34 Trachea Gram Stain - Final Complete 07/24/24 18:34 Respiratory Culture - Final Pseudomonas aeruginosa Complete 07/24/24 15:15 Blood Blood Culture - Final NO GROWTH AFTER 5 DAYS OF INCUBATION. Complete 07/18/24 22:30 Urine - Suprapubic Aspirate Urine Culture - Final Complete 06/11/24 16:06 Bronchial Washings Gram Stain - Final Complete 06/11/24 16:06 Respiratory Culture - Final Acinetobacter baumannii Pseudomonas aeruginosa Complete 05/30/24 11:45 Pleural Fluid Gram Stain - Final Complete 05/30/24 11:45 Pleural Fluid Body Fluid Culture - Final Complete Labs and/or images reviewed: Labs reviewed by me Assessment/Plan Assessment/Plan Neurology #Sedation -off sedation # acute metabolic encephalopathy likely due to sepsis -resolving, but complete neurological examination cant be accessed as pt is non verbal # history of seizures -History of seizure during last admission (1 month back) used Keppra for 1 week Discontinued Keppra, on 06/16 EEG shows abnormal EEG recording consistent with the presence of a diffuse nonspecific encephalopathic state # history of stroke Old infarct in the right frontal lobe and right parietal occipital lobe, seen on imaging Cardiovascular # shock likely septic -resolved #Hypertension -amlodipine 10 mg daily, clonidine 0.2 mg p.o. b.i.d., hydralazine 100 mg p.o. Q HR, metoprolol 50 mg p.o. b.i.d. Respiratory # acute hypoxic respiratory failure due to pneumonia s/p tracheostomy 06/13 -albuterol p.r.n., ipratropium neb -on T collar , room air # aspiration pneumonia, Gram-positive/Gram-negative -currently on IV meropenem # pneumomediastinum and pneumopericardium -seen on imaging # left lower lobe atelectasis -seen on imaging #Recurrent mucus plugging -Mucomyst -repeat CXR -s/p multiple bronchoscopy GI # hepatitis-C positive # status post PEG tube 06/15 Nephrology # FROYLAN due to hemodynamic mediated likely due to sepsis, requiring dialysis - Homer catheter placed on left internal jugular, on 06/26, removed on 07/04 - tunneled catheter placed to the right upper chest 07/04 -received dialysis today -on Bumex tablet 2 mg p.o. b.i.d. -250 cc urine output today # hyponatremia, improved monitor # hyperkalemia -monitor # hypomagnesemia -monitor Urology # UTI -currently on IV meropenem # s/p suprapubic catheter Musculoskeletal/dermatological # status post above-knee amputation - due to peripheral arterial disease # decubitus ulcer -wound care Endocrine # secondary hyperparathyroidism -likely due to FROYLAN/CKD # hypocalcemia due to FROYLAN/CKD -on oral calcium, discontinued # hypoglycemia likely due to sepsis -resolved Hematology/oncology # severe anemia requiring transfusion, anemia of chronic disease, macrocytic anemia -monitor CBC # thrombocytopenia -monitor CBC Infectious disease # septic shock -resolved -currenltly on meropenam Psychiatry #Anxiety -ativan oral PRN LINES/DRAINS/ACCESS: ETT, intubated on 05/28/2024 and tracheostomy performed on 06/11, PEG tube placed on 06/15 IV access Left internal jugular CVC, placed on 06/26 and removed on 07/04 Right IJ hemodialysis catheter placed 07/04 Left upper PICC line Suprapubic catheter, changed on 07/14/2024 Dripps: Off Fentanyl patch 25 mg Off pressor Nutrition Enteral through PEG tube , nepro with carb steady DVT prophylaxis Started on heparin 5000 subc q.12h Peptic ulcer disease prophylaxis Omeprazole 20 mg GT daily Bowel regimen Lactulose 30 mg q.12h - Continuing suction. Waiting for placement. Prognosis guarded This medical document was created using an electronic medical record system with [employer] [employer] computerized dictation system. Although this document has been carefully reviewed, there may still be some phonetic and typographical errors. These areas are purely typographical due to imperfections of the software programs, and do not reflect any compromise in the patient's medical care. Plan discussed with: Other (RN) Date of Service: Aug 03, 2024 Billing Provider: MARTÍNEZ SCOTT MD Common Visit Codes: [id number] INP/OBS CARE(HIGH) MARTÍNEZ SCOTT MD Aug 03, 2024 22:57
[2024-08-04] VITALS (16 sets, daily range): BP systolic 109–161; BP diastolic 60–77; PULSE 8–89; RESP 16–20; TEMP 97.7–98.8; O2SAT 91–98
[2024-08-04 06:14] LABS: Basophils # (auto) 0 10 ^3/uL (0-0.2); Basophils % (auto) 0.6 % (0.0-2.0); Eosinophils # (auto) 0.2 10 ^3/uL (0-0.8); Eosinophils % (auto) 2.9 % (0.0-7.0); Lymphocytes # (auto) 1.3 10 ^3/uL (0.4-5.4); Lymphocytes % (auto) 19.6 % (10.0-50.0); Mean Corpuscular Hemoglobin 32.8 pg (28.0-32.0); Mean Corpuscular Hgb Conc. 33.4 g/dL (32.0-36.0); Mean Corpuscular Volume 98.2 fL (80.0-100.0); Monocytes # (auto) 0.5 10 ^3/uL (0-1.3); Monocytes % (auto) 7.9 % (0.0-12.0); Neutrophils # (auto) 4.6 10 ^3/uL (1.6-8.6); Nucleated Red Blood Cells % 0.1 %; Platelet Count (auto) 204 10^3/uL (140-450); Red Blood Cells 2.75 10^6/uL (4.5-5.90); Red Cell Distribution Width 17.3 % (11.8-14.3); White Blood Cell 6.6 10^3/uL (4.4-10.8)
[2024-08-04 06:40] LABS: Anion Gap 5 (5-15); Calcium 10.3 mg/dL (8.7-10.4); Carbon Dioxide 29 mmol/L (20-31); Chloride 101 mmol/L (98-107); Potassium 4.6 mmol/L (3.5-5.1)
[2024-08-04 06:43] LABS: Sodium 135 mmol/L (136-145)
[2024-08-04 06:46] LABS: BUN/Creatinine Ratio 22.6 (10.0-20.0); Glucose 90 mg/dL (74-106)
[2024-08-04 06:51] LABS: Blood Urea Nitrogen 66 mg/dL (9-23)
--- NOTE | 2024-08-04 09:57 | DVH ---
EXAM: XY CHEST PORTABLE Indication: excessive secretions Technique: Single frontal view of the chest was obtained Comparison: XY CHEST PORTABLE on DOS: 07/31/24, XY CHEST PORTABLE on DOS: 07/30/24, XY CHEST PORTABLE o n DOS: 07/29/24, XY CHEST PORTABLE on DOS: 07/28/24, XY CHEST XRAY 1 VIEW on DOS: 07/26/24 FINDINGS: Lines and Tubes: Right central venous catheter tip projects over superior vena cava. Tracheostomy tub e is visualized. Lungs: Worsening left lung consolidative opacities Pleura: Small left pleural effusion. No pneumothorax. Cardiomediastinal contours: Unchanged. Bones: No acute osseous abnormality. IMPRESSION: Worsening left lung consolidative opacities compared to prior exam.
--- NOTE | 2024-08-04 16:02 | DVHPN2 ---
Progress Note Date Seen: Aug 04, 2024 Has the PT tested + for MRSA If YES, has PT been informed?: Yes Medical Necessity Reason Pt with a Central, PICC or Fol: Yes The following are medically ne: Rubio Catheter Reason for rubio catheter: Strict I&O Subjective Review of Systems: RESPIRATORY:Abnormal Other Systems: Patient seen and examined by myself today in f/u Objective vital signs Vital Sign Date Time Temp Pulse Resp B/P (MAP) Pulse Ox O2 Delivery O2 Flow Rate FiO2 08/04/24 13:33 118/75 08/04/24 13:33 77 08/04/24 13:00 98.3 20 98 98.3 08/04/24 11:07 Trach Collar 6 28 28 Total Intake and Output 08/03/24 08/03/24 08/04/24 15:00 23:00 07:00 Intake Total 50.0 ml 0 ml Output Total 275 ml 50 ml Balance -225.0 ml -50 ml medications Current Medications Medications Dose Ordered Sig/[place] Route Start Time Stop Time Status Last Admin Dose Admin Enoxaparin Sodium 40 mg DAILY SC 06/10/24 10:00 UNV Enoxaparin Sodium 40 mg DAILY SC 06/17/24 10:00 UNV Epoetin Calin-epbx 10,000 unit TUTHSA SC 06/17/24 12:00 Hold 06/28/24 08:25 10,000 UNIT Lactulose 30 ml [id number] PRN PEG 07/01/24 10:15 07/27/24 09:15 30 ML Metoprolol Tartrate 50 mg BID PO 07/01/24 22:00 08/04/24 09:11 50 MG Clonidine HCl 0.2 mg BID PO 07/03/24 22:00 08/04/24 09:11 0.2 MG Hydralazine HCl 100 mg Q8HR PO 07/07/24 22:00 08/04/24 13:31 100 MG Heparin Sodium (Porcine) 4,000 units JACKY PRN XX 07/09/24 11:00 08/03/24 17:07 4,000 UNITS Amlodipine Besylate 10 mg DAILY PO 07/11/24 10:00 08/04/24 09:12 10 MG Acetylcysteine 200 mg Q6HR NEB 07/14/24 12:00 08/04/24 11:08 200 MG Albuterol 2.5 mg Q6HR NEB 07/14/24 12:00 08/04/24 11:07 2.5 MG Ipratropium [place] 0.5 mg Q6HR NEB 07/14/24 12:00 08/04/24 11:07 0.5 MG Bumetanide 2 mg BIDD PO 07/19/24 15:00 08/04/24 06:24 2 MG Acetaminophen 650 mg Q6HP PRN PO 07/22/24 19:53 08/03/24 06:21 650 MG Fentanyl 25 mcg Q72H TD 07/27/24 10:00 08/02/24 09:08 25 MCG Omeprazole 20 mg DAILY GT 07/28/24 10:00 08/04/24 09:10 20 MG Calcium Acetate 1,334 mg TIDWM PEG 07/28/24 12:33 08/04/24 13:30 1,334 MG Enteral Nutritional Formula 1,000 ml 60ML/HR GT 07/28/24 11:45 08/04/24 03:12 1,000 ML Lorazepam 0.25 mg Q12HP PRN PO 07/28/24 17:15 08/03/24 21:22 0.25 MG Heparin Sodium (Porcine) 5,000 units Q12HR SC 07/28/24 22:00 08/04/24 09:29 5,000 UNITS Cefepime/Dextrose 50 ml @ 12.5 mls/hr Q24H IV 08/01/24 19:00 08/03/24 18:51 12.5 MLS/HR Examination: LUNGS:Normal, CVS:Normal, MSK:Normal laboratory and microbiology Laboratory Tests 08/04/24 05:05 Test 08/04/24 05:05 Range/Units Serum Glucose 90 74-106 mg/dL Microbiology Date/Time Source Procedure Growth Status 07/24/24 18:34 Trachea Gram Stain - Final Complete 07/24/24 18:34 Respiratory Culture - Final Pseudomonas aeruginosa Complete 07/24/24 15:15 Blood Blood Culture - Final NO GROWTH AFTER 5 DAYS OF INCUBATION. Complete 07/18/24 22:30 Urine - Suprapubic Aspirate Urine Culture - Final Complete 06/11/24 16:06 Bronchial Washings Gram Stain - Final Complete 06/11/24 16:06 Respiratory Culture - Final Acinetobacter baumannii Pseudomonas aeruginosa Complete 05/30/24 11:45 Pleural Fluid Gram Stain - Final Complete 05/30/24 11:45 Pleural Fluid Body Fluid Culture - Final Complete Problem List/Assessment/Plan Problem List/Assessment/Plan Acute kidney injury superimposed on chronic kidney disease stage 4, oliguric requiring initiation of hemodialysis Acute respiratory failure, patient is trached Anemia suspected due to low blood loss s/p PRBC Septic shock Hypernatremia Hypomagnesemia Peripheral arterial disease Right above knee amputation Metabolic acidosis Chronic urinary retention MRSA bacteremia Recommendations HD tomorrow Epogen 00348 IV post hemodialysis Rubio catheter Strict I&Os Renal diet PEG feeding with nepro IV antibiotic per ID consult We will continue to follow Plan discussed with: Patient, Other (nurse) My Orders My Orders Orders - DAVID TORRES MD Procedure Category Date Status Time Hemodialysis Orders ORDERS 08/05/24 Transmitted 07:00 Dialysis Nursing SUZAN 08/05/24 In Process Message 07:00 Heparin Sodium PHA 08/05/24 In Process (Porcine) 07:00 Heparin Sodium PHA 08/05/24 In Process (Porcine) 07:00 Sodium Chloride 0.9% PHA 08/05/24 In Process 07:00 Document Fluid Input SUZAN 08/05/24 In Process And Outpu 07:00 Epoetin Calin-Epbx PHA 08/05/24 In Process (Retacrit) 21:00 Dietary Evaluation Review Comments: 1) If GI is assessible consider Jevity 1.2 @ 60 ml/hr x24 hrs goal rate as tolerated 2) If pt remains NPO >7 days consider TPN to meet at least 75% of estimated needs 3) Advance pt diet when medically feasible to a Cardiac/Renal Specific K2,2gmNA,low phos,60g Pro diet modified per TRADE RECRUITER recommendations 4) Continue current plan of care Expected Outcomes/Goals: 1) Pt to receive adequate nutrition support 2) Pt diet to advance CC Plasma Assessment Blood Product Administration S: [id number] DAVID TORRES MD Aug 04, 2024 16:02
--- NOTE | 2024-08-04 22:06 | DVHDSRES ---
Discharge Summary Date of Admission Resident Creating Document: DANGELO COTO May 28, 2024 at 23:54 Date of Discharge: Aug 04, 2024 Labs/Diagnostic Data: Laboratory Results Test 08/04/24 05:05 08/02/24 06:54 07/29/24 05:03 07/28/24 09:55 White Blood Count 6.6 10^3/uL (4.4-10.8) Red Blood Count 2.75 10^6/uL (4.5-5.90) Hemoglobin 9.0 g/dL (13.5-17.5) Hematocrit 27.0 % (41.0-53.0) Mean Corpuscular Volume 98.2 fL (80.0-100.0) Mean Corpuscular Hemoglobin 32.8 pg (28.0-32.0) Mean Corpuscular Hemoglobin Concent 33.4 g/dL (32.0-36.0) Red Cell Distribution Width 17.3 % (11.8-14.3) Platelet Count 204 10^3/uL (140-450) Mean Platelet Volume 8.6 fL (6.9-10.8) Neutrophils (%) (Auto) 69.0 % (37.0-80.0) Lymphocytes (%) (Auto) 19.6 % (10.0-50.0) Monocytes (%) (Auto) 7.9 % (0.0-12.0) Eosinophils (%) (Auto) 2.9 % (0.0-7.0) Basophils (%) (Auto) 0.6 % (0.0-2.0) Neutrophils # (Auto) 4.6 10 ^3/uL (1.6-8.6) Lymphocytes # (Auto) 1.3 10 ^3/uL (0.4-5.4) Monocytes # (Auto) 0.5 10 ^3/uL (0-1.3) Eosinophils # (Auto) 0.2 10 ^3/uL (0-0.8) Basophils # (Auto) 0 10 ^3/uL (0-0.2) Nucleated Red Blood Cells 0.1 % Sodium Level 135 mmol/L (136-145) Potassium Level 4.6 mmol/L (3.5-5.1) Chloride Level 101 mmol/L (98-107) Carbon Dioxide Level 29 mmol/L (20-31) Anion Gap 5 (5-15) Blood Urea Nitrogen 66 mg/dL (9-23) Creatinine 2.92 mg/dL (0.700-1.30) Glomerular Filtration Rate Calc 23 mL/min (>90) BUN/Creatinine Ratio 22.6 (10.0-20.0) Serum Glucose 90 mg/dL (74-106) Calcium Level 10.3 mg/dL (8.7-10.4) Magnesium Level 2.4 mg/dL (1.6-2.6) Phosphorus Level 4.7 mg/dL (2.4-5.1) POC Glucose 96 mg/dl (70-106) Test 07/28/24 05:15 07/27/24 04:57 07/21/24 18:49 07/18/24 22:30 Differential Total Cells Counted 100.0 (100) Neutrophils % (Manual) 70 (37.0-80.0) Band Neutrophils % (Manual) 1 Lymphocytes % (Manual) 16 (10.0-50.0) Monocytes % (Manual) 4 (0-12) Eosinophils % (Manual) 9 (0-7) Basophils % (Manual) 0 (0.0-2.0) Metamyelocytes % (manual) 0 Myelocytes % (Manual) 0 Promyelocytes % (Manual) 0 Blast Cells % (Manual) 0 Reactive Lymphocytes 0 Platelet Estimate Adequate Total Bilirubin < 0.2 mg/dL (0.2-1.0) Aspartate Amino Transferase (AST) 86 U/L (13-40) Alanine Aminotransferase (ALT) 48 U/L (7-40) Alkaline Phosphatase 175 U/L (46-116) Total Protein 6.2 g/dL (5.7-8.2) Albumin 2.5 g/dL (3.2-4.8) Hepatitis B Surface Antigen Negative (Negative) Hepatitis B Surface Antibody Negative (Negative) Hepatitis B Core IgM Antibody Negative (Negative) Urine Color Yellow (Yellow) Urine Clarity Turbid (Clear) Urine pH 8.5 (5.0-9.0) Urine Specific [place] 1.016 (1.001-1.035) Urine Protein 3+ (Negative) Urine Ketones Negative (Negative) Urine Blood Negative /uL (Negative) Urine Nitrite Negative (Negative) Urine Bilirubin Negative (Negative) Urine Urobilinogen Normal mg/dL (Negative) Urine Leukocyte Esterase 1+ /uL (Negative) Urine RBC 9 /hpf (0 - 3) Urine WBC 38 /hpf (0 - 3) Urine Squamous Epithelial Cells Mod /hpf (<5) Urine Transitional Epithelial Cells Few /hpf (<2) Urine Renal Epithelial Cells Few /hpf (None Seen) Urine Bacteria Few /hpf (None Seen) Urine Mucus Few (None Seen) Urine Glucose 1+ mg/dL (Normal) Test 07/17/24 04:49 07/12/24 07:47 07/12/24 04:47 07/08/24 08:24 Iron Level 29 ug/dL (65-175) Total Iron Binding Capacity 129 ug/dL (250-425) Percent Iron Saturation 22.5 % (20-55) Ferritin 925.0 ng/mL (22-322) Vitamin B12 Level 662 pg/mL (211-911) Vitamin D 25-Hydroxy 43.9 ng/mL (30.0-100) Folic Acid 5.15 ng/mL (>5.38) Parathyroid Hormone (Intact) 390.6 pg/mL (18.4-80.1) Blood Gas Specimen Type Arterial Blood Gas Sample Site Left radial Blood Gas Patient Temperature 37.0 Arterial Blood Date Drawn [id number] Arterial Blood pH 7.512 (7.350-7.450) Arterial Blood Partial Pressure CO2 36.1 mmHg (35.0-48.0) Arterial Blood Partial Pressure O2 77.7 mmHg (83.0-108.0) Arterial Blood HCO3 28.3 mmol/L (21.0-28.0) Arterial Blood Oxygen Saturation 94.2 % (94.0-98.0) Arterial Blood Base Excess 5.1 mmol/L (-2.0-3.0) Arterial Blood Oxyhemoglobin 92.4 % (94.0-98.0) Arterial Blood Carboxyhemoglobin 1.4 % (0.5-1.5) Arterial Blood Methemoglobin 0.5 % (0.0-1.5) Bruno Test Modified Blood Gas Total Hemoglobin 9.80 g/dL (13.5-17.5) Blood Gas Liter Flow 6.00 Blood Gas Modality Cool aerosol FiO2 % 28.0 Anisocytosis (manual) Slight Blood Gas Critical Value Read Back Yes Blood Gas Notified Whom Blood Gas Notified Time [id number] Blood Gas Notified By Khoa rowland rt Test 07/04/24 04:36 06/30/24 04:40 06/28/24 07:13 06/28/24 04:27 Smudge Cells 1 /100 WBC B-Type Natriuretic Peptide 767.88 pg/mL (0-100) Blood Gas Set Respiration Rate 16.0 Blood Gas Tidal Volume 400.0 Blood Gas PEEP or CPAP 5.0 Random Vancomycin Level 29.9 ug/mL (5-10) Test 06/27/24 08:17 06/27/24 05:02 06/24/24 15:35 06/24/24 04:53 Blood Gas Spontaneous Rate 32 Estimated GFR () 24 mL/min Estimated GFR (Non- 19 mL/min Lactic Acid Level 0.5 mmol/L (0.4-2.0) Hepatitis A IgM Antibody Negative Hepatitis C Antibody Reactive (Negative) Test 06/17/24 04:36 06/16/24 01:00 06/12/24 14:26 06/12/24 07:55 Prothrombin Time 12.6 sec (9.3-11.8) Prothrombin Time INR 1.21 (0.9-1.15) Activated Partial Thromboplast Time 40.6 SEC (24.5-34.5) Influenza Type A Antigen Negative (Negative) Influenza Type B Antigen Negative (Negative) SARS-CoV-2 Antigen (Rapid) Negative (NEGATIVE) Stool Occult Blood Negative (Negative) Stool Occult Blood Sample #3 (Negative) Blood Gas Inspiratory Pressure 18.0 Bl Gas Inspiratory/Expiratory Ratio 1:1.2 Specimen Drawn By nyoyde rt Test 06/10/24 01:12 06/09/24 12:57 06/05/24 03:09 06/01/24 03:00 Blood Gas EPAP 5 Blood Gas IPAP 12 Blood Gas Pressure Support 10 Large Platelets Few Uric Acid 9.3 mg/dL (3.7-9.2) Test 05/30/24 11:45 05/30/24 04:30 05/30/24 03:06 05/29/24 08:30 Body Fluid Source Pleural fluid Body Fluid pH 7.0 Body Fluid WBC (Manual) 479 CUMM (0-200) Body Fluid RBC (Manual) 842 CUMM (0-2000) Body Fluid Mononuclear Cells 86 % Body Fluid Polymorphonuclear Cells 14 % (0-25) Body Fluid Glucose 68 mg/dL (.) Body Fluid Total Protein 2.4 g/dL (.) Body Fluid Lactate Dehydrogenase 101 IU/L (.) Urine Creatinine 33.57 mg/dL (30.0-125.0) Urine Sodium 85 mmol/L (40-220) Urine Opiates Screen Neg (NEGATIVE) Urine Fentanyl Screen Pos (NEGATIVE) Urine Barbiturates Screen Neg (NEGATIVE) Urine Phencyclidine Screen Neg (NEGATIVE) Urine Amphetamines Screen Neg (NEGATIVE) Urine Benzodiazepines Screen Pos (NEGATIVE) Urine Cocaine Screen Neg (NEGATIVE) Urine Cannabinoids Screen Neg (NEGATIVE) Lactate Dehydrogenase 149 U/L (120-246) Thyroid Stimulating Hormone (TSH) 2.47 uIU/mL (0.55-4.78) Test 05/29/24 00:21 05/28/24 22:36 05/28/24 21:43 Troponin I High Sensitivity 118 ng/L (</=54) Urine WBC Clumps Present /hpf (None Seen) Macrocytosis Slight Other Laboratory Tests 08/04/24 05:05 Condition at Discharge: Guarded Final Diagnosis/Problems List resp failure Discharge Disposition: [facility] Facility Discharge Instruct/Medications Diet: See Comment Diet comment: tube feedings Activity: Bed rest Follow Up/Referral: fu with pcp/dialysis Medications: per sep Discharge Statement: "Patient was advised to return to the ER or call 911 if any headaches, dizziness, shortness of breath, chest pain, abdominal pain, bleeding, fevers, or worsening of medical condition. Patient was counseled about treatment plan, medications, possible side effects, patientverbalized understanding. All questions were answered to the best of my ability. This discharge took greater then 30 minutes in planning, reviewing documentation, counseling the patient, and discussing with other team members." ASSESSMENT ASSESSMENT Assessment resp failure DANGELO COTO RESIDENT Aug 04, 2024 22:06
[2024-08-05] VITALS (17 sets, daily range): BP systolic 112–152; BP diastolic 65–85; PULSE 69–105; RESP 16–20; TEMP 97.1–99; O2SAT 94–98
[2024-08-05] MEDS: SODIUM CHL 0.9% 1000 ML BAG XX ONE (07:00)
--- NOTE | 2024-08-05 08:38 | DVHPNRES ---
Progress Note Date Seen: Aug 04, 2024 Resident Creating Document: DANGELO COTO RESIDENT Has the PT tested + for MRSA If YES, has PT been informed?: Yes Medical Necessity Reason Pt with a Central, PICC or Fol: Yes The following are medically ne: Rubio Catheter Reason for rubio catheter: Strict I&O Subjective Review of Systems Patient seen and examined at bedside Patient is currently on 6L 02 Patient comprehends and follows commands. Objective vital signs Vital Sign Date Time Temp Pulse Resp B/P (MAP) Pulse Ox O2 Delivery O2 Flow Rate FiO2 08/05/24 05:48 141/70 08/05/24 05:00 97.1 75 17 96 97.1 08/05/24 00:12 Trach Collar 6.0 08/05/24 00:12 28 28 Total Intake and Output 08/04/24 08/04/24 08/05/24 15:00 23:00 07:00 Intake Total 50 ml 0 ml Output Total 100 ml 150 ml Balance -50 ml -150 ml medications Current Medications Medications Dose Ordered Sig/[place] Route Start Time Stop Time Status Last Admin Dose Admin Enoxaparin Sodium 40 mg DAILY SC 06/10/24 10:00 UNV Enoxaparin Sodium 40 mg DAILY SC 06/17/24 10:00 UNV Epoetin Calin-epbx 10,000 unit TUTHSA SC 06/17/24 12:00 Hold 06/28/24 08:25 10,000 UNIT Lactulose 30 ml [id number] PRN PEG 07/01/24 10:15 07/27/24 09:15 30 ML Metoprolol Tartrate 50 mg BID PO 07/01/24 22:00 08/04/24 22:27 50 MG Clonidine HCl 0.2 mg BID PO 07/03/24 22:00 08/04/24 22:27 0.2 MG Hydralazine HCl 100 mg Q8HR PO 07/07/24 22:00 08/05/24 05:48 100 MG Heparin Sodium (Porcine) 4,000 units JACKY PRN XX 07/09/24 11:00 08/03/24 17:07 4,000 UNITS Amlodipine Besylate 10 mg DAILY PO 07/11/24 10:00 08/04/24 09:12 10 MG Acetylcysteine 200 mg Q6HR NEB 07/14/24 12:00 08/05/24 00:12 200 MG Albuterol 2.5 mg Q6HR NEB 07/14/24 12:00 08/05/24 00:12 2.5 MG Ipratropium [place] 0.5 mg Q6HR NEB 07/14/24 12:00 08/05/24 00:12 0.5 MG Bumetanide 2 mg BIDD PO 07/19/24 15:00 08/05/24 05:48 2 MG Acetaminophen 650 mg Q6HP PRN PO 07/22/24 19:53 08/03/24 06:21 650 MG Fentanyl 25 mcg Q72H TD 07/27/24 10:00 08/02/24 09:08 25 MCG Omeprazole 20 mg DAILY GT 07/28/24 10:00 08/04/24 09:10 20 MG Calcium Acetate 1,334 mg TIDWM PEG 07/28/24 12:33 08/04/24 18:22 1,334 MG Enteral Nutritional Formula 1,000 ml 60ML/HR GT 07/28/24 11:45 08/04/24 20:43 1,000 ML Lorazepam 0.25 mg Q12HP PRN PO 07/28/24 17:15 08/04/24 22:33 0.25 MG Heparin Sodium (Porcine) 5,000 units Q12HR SC 07/28/24 22:00 08/04/24 22:29 5,000 UNITS Cefepime/Dextrose 50 ml @ 12.5 mls/hr Q24H IV 08/01/24 19:00 08/04/24 18:23 12.5 MLS/HR Examination Examination General Appearance: Nonverbal, on trach collar, 6 L through nasal cannula continuous Respiratory: Clear to auscultation, Normal air movement, on 6 L through Cardiovascular: Regular rate, Normal S1, Normal S2 Abdominal: Normal bowel sounds, peg tube present, suprapubic catheter present Extremities: Right BKA, 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 Complete 07/18/24 22:30 Urine - Suprapubic Aspirate Urine Culture - Final Complete 06/11/24 16:06 Bronchial Washings Gram Stain - Final Complete 06/11/24 16:06 Respiratory Culture - Final Acinetobacter baumannii Pseudomonas aeruginosa Complete 05/30/24 11:45 Pleural Fluid Gram Stain - Final Complete 05/30/24 11:45 Pleural Fluid Body Fluid Culture - Final Complete Labs and/or images reviewed: Labs reviewed by me, Image(s) reviewed by me Problem List/Assessment/Plan Problem List/Assessment/Plan Assessment/plan Neurology #Sedation -off sedation # acute metabolic encephalopathy likely due to sepsis -resolving, but complete neurological examination cant be accessed as pt is non verbal # history of seizures -History of seizure during last admission (1 month back) used Keppra for 1 week Discontinued Keppra, on 06/16 EEG shows abnormal EEG recording consistent with the presence of a diffuse nonspecific encephalopathic state # history of stroke Old infarct in the right frontal lobe and right parietal occipital lobe, seen on imaging Cardiovascular # shock likely septic -resolved #Hypertension -amlodipine 10 mg daily, clonidine 0.2 mg p.o. b.i.d., hydralazine 100 mg p.o. Q HR, metoprolol 50 mg p.o. b.i.d. Respiratory # acute hypoxic respiratory failure due to pneumonia s/p tracheostomy 06/13 -albuterol p.r.n., ipratropium neb -on T collar , room air # aspiration pneumonia, Gram-positive/Gram-negative -currently on IV meropenem # pneumomediastinum and pneumopericardium -seen on imaging # left lower lobe atelectasis -seen on imaging #Recurrent mucus plugging -Mucomyst -repeat CXR -s/p multiple bronchoscopy GI # hepatitis-C positive # status post PEG tube 06/15 Nephrology # FROYLAN due to hemodynamic mediated likely due to sepsis, requiring dialysis - Homer catheter placed on left internal jugular, on 06/26, removed on 07/04 - tunneled catheter placed to the right upper chest 07/04 -received dialysis today -on Bumex tablet 2 mg p.o. b.i.d. -250 cc urine output today # hyponatremia, improved monitor # hyperkalemia -monitor # hypomagnesemia -monitor Urology # UTI -currently on IV meropenem # s/p suprapubic catheter Musculoskeletal/dermatological # status post above-knee amputation - due to peripheral arterial disease # decubitus ulcer -wound care Endocrine # secondary hyperparathyroidism -likely due to FROYLAN/CKD # hypocalcemia due to FROYLAN/CKD -on oral calcium, discontinued # hypoglycemia likely due to sepsis -resolved Hematology/oncology # severe anemia requiring transfusion, anemia of chronic disease, macrocytic anemia -monitor CBC # thrombocytopenia -monitor CBC Infectious disease # septic shock -resolved -currenltly on meropenam Psychiatry #Anxiety -ativan oral PRN LINES/DRAINS/ACCESS: ETT, intubated on 05/28/2024 and tracheostomy performed on 06/11, PEG tube placed on 06/15 IV access Left internal jugular CVC, placed on 06/26 and removed on 07/04 Right IJ hemodialysis catheter placed 07/04 Left upper PICC line Suprapubic catheter, changed on 07/14/2024 Dripps: Off Fentanyl patch 25 mg Off pressor Nutrition Enteral through PEG tube , nepro with carb steady DVT prophylaxis Started on heparin 5000 subc q.12h Peptic ulcer disease prophylaxis Omeprazole 20 mg GT daily Bowel regimen Lactulose 30 mg q.12h Code status discussed with the family for greater than 21 minutes, full code Case discussion with Dr. isabel [facility] and health services manager consulted for subacute care facility pt was planned to be discharged , was accepted at a facility but later as per complex case manager, patient has been declined at this time. Plan discussed with: Other My Orders My Orders Orders - DANGELO COTO RESIDENT Procedure Category Date Status Time Chest Portable XY 08/04/24 Resulted 08:49 Discharge DISCHARGE 08/04/24 Transmitted 14:49 Dietary Evaluation Review Comments: 1) If GI is assessible consider Jevity 1.2 @ 60 ml/hr x24 hrs goal rate as tolerated 2) If pt remains NPO >7 days consider TPN to meet at least 75% of estimated needs 3) Advance pt diet when medically feasible to a Cardiac/Renal Specific K2,2gmNA,low phos,60g Pro diet modified per INDUSTRIAL HYGENIST recommendations 4) Continue current plan of care Expected Outcomes/Goals: 1) Pt to receive adequate nutrition support 2) Pt diet to advance CC Plasma Assessment Blood Product Administration S: [id number] Date of Service: Aug 04, 2024 Billing Provider: HOLGER ISABEL MD Common Visit Codes: [id number] INP/OBS CARE(HIGH) Secondary Visit Codes: [id number] CARE PLAN 30 MINUTES DANGELO COTO RESIDENT Aug 05, 2024 08:38 HOLGER ISABEL MD Aug 05, 2024 15:57
--- NOTE | 2024-08-05 10:14 | DVHPN2 ---
Progress Note Date Seen: Aug 05, 2024 Has the PT tested + for MRSA If YES, has PT been informed?: Yes Medical Necessity Reason Pt with a Central, PICC or Fol: Yes The following are medically ne: Rbuio Catheter Reason for rubio catheter: Strict I&O Subjective Review of Systems: RESPIRATORY:Abnormal Other Systems: Patient seen and examined by myself today in follow-up patient examined hemodialysis blood pressure stable Objective vital signs Vital Sign Date Time Temp Pulse Resp B/P (MAP) Pulse Ox O2 Delivery O2 Flow Rate FiO2 08/05/24 09:30 152/85 08/05/24 09:28 78 08/05/24 09:17 16 97 08/05/24 09:04 98.4 98.4 08/05/24 08:40 Trach Collar 6.0 08/05/24 08:40 N/A Total Intake and Output 08/04/24 08/04/24 08/05/24 15:00 23:00 07:00 Intake Total 50 ml 0 ml Output Total 100 ml 150 ml Balance -50 ml -150 ml medications Current Medications Medications Dose Ordered Sig/[place] Route Start Time Stop Time Status Last Admin Dose Admin Enoxaparin Sodium 40 mg DAILY SC 06/10/24 10:00 UNV Enoxaparin Sodium 40 mg DAILY SC 06/17/24 10:00 UNV Epoetin Calin-epbx 10,000 unit TUTHSA SC 06/17/24 12:00 Hold 06/28/24 08:25 10,000 UNIT Lactulose 30 ml [id number] PRN PEG 07/01/24 10:15 07/27/24 09:15 30 ML Metoprolol Tartrate 50 mg BID PO 07/01/24 22:00 08/05/24 09:28 50 MG Clonidine HCl 0.2 mg BID PO 07/03/24 22:00 08/05/24 09:29 0.2 MG Hydralazine HCl 100 mg Q8HR PO 07/07/24 22:00 08/05/24 05:48 100 MG Heparin Sodium (Porcine) 4,000 units JACKY PRN XX 07/09/24 11:00 08/03/24 17:07 4,000 UNITS Amlodipine Besylate 10 mg DAILY PO 07/11/24 10:00 08/05/24 09:27 10 MG Acetylcysteine 200 mg Q6HR NEB 07/14/24 12:00 08/05/24 08:40 200 MG Albuterol 2.5 mg Q6HR NEB 07/14/24 12:00 08/05/24 08:40 2.5 MG Ipratropium [place] 0.5 mg Q6HR NEB 07/14/24 12:00 08/05/24 08:40 0.5 MG Bumetanide 2 mg BIDD PO 07/19/24 15:00 08/05/24 05:48 2 MG Acetaminophen 650 mg Q6HP PRN PO 07/22/24 19:53 08/03/24 06:21 650 MG Fentanyl 25 mcg Q72H TD 07/27/24 10:00 08/05/24 09:30 25 MCG Omeprazole 20 mg DAILY GT 07/28/24 10:00 08/05/24 09:30 20 MG Calcium Acetate 1,334 mg TIDWM PEG 07/28/24 12:33 08/05/24 09:27 1,334 MG Enteral Nutritional Formula 1,000 ml 60ML/HR GT 07/28/24 11:45 08/04/24 20:43 1,000 ML Lorazepam 0.25 mg Q12HP PRN PO 07/28/24 17:15 08/04/24 22:33 0.25 MG Heparin Sodium (Porcine) 5,000 units Q12HR SC 07/28/24 22:00 08/05/24 09:26 5,000 UNITS Cefepime/Dextrose 50 ml @ 12.5 mls/hr Q24H IV 08/01/24 19:00 08/04/24 18:23 12.5 MLS/HR Examination: LUNGS:Normal, CVS:Normal, MSK:Normal laboratory and microbiology Laboratory Tests 08/04/24 05:05 Test 08/04/24 05:05 Range/Units Serum Glucose 90 74-106 mg/dL Microbiology Date/Time Source Procedure Growth Status 07/24/24 18:34 Trachea Gram Stain - Final Complete 07/24/24 18:34 Respiratory Culture - Final Pseudomonas aeruginosa Complete 07/24/24 15:15 Blood Blood Culture - Final NO GROWTH AFTER 5 DAYS OF INCUBATION. Complete 07/18/24 22:30 Urine - Suprapubic Aspirate Urine Culture - Final Complete 06/11/24 16:06 Bronchial Washings Gram Stain - Final Complete 06/11/24 16:06 Respiratory Culture - Final Acinetobacter baumannii Pseudomonas aeruginosa Complete 05/30/24 11:45 Pleural Fluid Gram Stain - Final Complete 05/30/24 11:45 Pleural Fluid Body Fluid Culture - Final Complete Problem List/Assessment/Plan Problem List/Assessment/Plan Acute kidney injury superimposed on chronic kidney disease stage 4, oliguric requiring initiation of hemodialysis Acute respiratory failure, patient is trached Anemia suspected due to low blood loss s/p PRBC Septic shock Hypernatremia Hypomagnesemia Peripheral arterial disease Right above knee amputation Metabolic acidosis Chronic urinary retention MRSA bacteremia Recommendations Continue with UF to 3 L as tolerated Epogen 23591 IV post hemodialysis Rubio catheter Strict I&Os Renal diet PEG feeding with nepro IV antibiotic per ID consult We will continue to follow Plan discussed with: Patient My Orders My Orders Orders - DAVID TORRES MD Procedure Category Date Status Time Hemodialysis Orders ORDERS 08/05/24 Transmitted 07:00 Dialysis Nursing SUZAN 08/05/24 In Process Message 07:00 Document Fluid Input SUZAN 08/05/24 In Process And Outpu 07:00 Epoetin Calin-Epbx PHA 08/05/24 In Process (Retacrit) 21:00 Dietary Evaluation Review Comments: 1) If GI is assessible consider Jevity 1.2 @ 60 ml/hr x24 hrs goal rate as tolerated 2) If pt remains NPO >7 days consider TPN to meet at least 75% of estimated needs 3) Advance pt diet when medically feasible to a Cardiac/Renal Specific K2,2gmNA,low phos,60g Pro diet modified per PIZZA DRIVER recommendations 4) Continue current plan of care Expected Outcomes/Goals: 1) Pt to receive adequate nutrition support 2) Pt diet to advance CC Plasma Assessment Blood Product Administration S: [id number] DAVID TORRES MD Aug 05, 2024 10:14
[2024-08-05] MEDS: ALBUMIN 25% 100 ML IV SCH (11:27)
--- NOTE | 2024-08-05 18:44 | DVHPNRES ---
Progress Note Date Seen: Aug 05, 2024 Resident Creating Document: DANGELO COTO RESIDENT Has the PT tested + for MRSA If YES, has PT been informed?: Yes Medical Necessity Reason Pt with a Central, PICC or Fol: Yes The following are medically ne: Rubio Catheter Reason for rubio catheter: Strict I&O Subjective Review of Systems Patient seen and examined at bedside Patient is currently on 6L 02 through trach collar Patient comprehends and follows commands. he received HD today. web services developer consulted for transfer to subacute facility Objective vital signs Vital Sign Date Time Temp Pulse Resp B/P (MAP) Pulse Ox O2 Delivery O2 Flow Rate FiO2 08/05/24 17:53 154/90 08/05/24 17:00 99.0 105 96 99.0 08/05/24 13:00 18 08/05/24 12:43 Trach Collar 6 28 Cool Aerosol 28 Total Intake and Output 08/04/24 08/04/24 08/05/24 15:00 23:00 07:00 Intake Total 50 ml 0 ml Output Total 100 ml 150 ml Balance -50 ml -150 ml medications Current Medications Medications Dose Ordered Sig/[place] Route Start Time Stop Time Status Last Admin Dose Admin Enoxaparin Sodium 40 mg DAILY SC 06/10/24 10:00 UNV Enoxaparin Sodium 40 mg DAILY SC 06/17/24 10:00 UNV Epoetin Calin-epbx 10,000 unit TUTHSA SC 06/17/24 12:00 Hold 06/28/24 08:25 10,000 UNIT Lactulose 30 ml [id number] PRN PEG 07/01/24 10:15 07/27/24 09:15 30 ML Metoprolol Tartrate 50 mg BID PO 07/01/24 22:00 08/05/24 09:28 50 MG Clonidine HCl 0.2 mg BID PO 07/03/24 22:00 08/05/24 09:29 0.2 MG Hydralazine HCl 100 mg Q8HR PO 07/07/24 22:00 08/05/24 14:13 100 MG Heparin Sodium (Porcine) 4,000 units JACKY PRN XX 07/09/24 11:00 08/05/24 11:26 4,000 UNITS Amlodipine Besylate 10 mg DAILY PO 07/11/24 10:00 08/05/24 09:27 10 MG Acetylcysteine 200 mg Q6HR NEB 07/14/24 12:00 08/05/24 17:58 200 MG Albuterol 2.5 mg Q6HR NEB 07/14/24 12:00 08/05/24 17:58 2.5 MG Ipratropium [place] 0.5 mg Q6HR NEB 07/14/24 12:00 08/05/24 17:58 0.5 MG Bumetanide 2 mg BIDD PO 07/19/24 15:00 08/05/24 17:53 2 MG Acetaminophen 650 mg Q6HP PRN PO 07/22/24 19:53 08/03/24 06:21 650 MG Fentanyl 25 mcg Q72H TD 07/27/24 10:00 08/05/24 09:30 25 MCG Omeprazole 20 mg DAILY GT 07/28/24 10:00 08/05/24 09:30 20 MG Calcium Acetate 1,334 mg TIDWM PEG 07/28/24 12:33 08/05/24 17:47 1,334 MG Enteral Nutritional Formula 1,000 ml 60ML/HR GT 07/28/24 11:45 08/05/24 17:54 1,000 ML Lorazepam 0.25 mg Q12HP PRN PO 07/28/24 17:15 08/04/24 22:33 0.25 MG Heparin Sodium (Porcine) 5,000 units Q12HR SC 07/28/24 22:00 08/05/24 09:26 5,000 UNITS Cefepime/Dextrose 50 ml @ 12.5 mls/hr Q24H IV 08/01/24 19:00 08/05/24 17:54 12.5 MLS/HR Albumin Human 100 ml @ 100 mls/hr WD IV 08/05/24 10:45 08/06/24 11:44 08/05/24 11:28 100 MLS/HR Examination Examination General Appearance: Nonverbal, on trach collar, 6 L through nasal cannula continuous Respiratory: Clear to auscultation, Normal air movement, on 6 L through Cardiovascular: Regular rate, Normal S1, Normal S2 Abdominal: Normal bowel sounds, peg tube present, suprapubic catheter present Extremities: Right BKA, 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 Complete 07/18/24 22:30 Urine - Suprapubic Aspirate Urine Culture - Final Complete 06/11/24 16:06 Bronchial Washings Gram Stain - Final Complete 06/11/24 16:06 Respiratory Culture - Final Acinetobacter baumannii Pseudomonas aeruginosa Complete 05/30/24 11:45 Pleural Fluid Gram Stain - Final Complete 05/30/24 11:45 Pleural Fluid Body Fluid Culture - Final Complete Labs and/or images reviewed: Labs reviewed by me, Image(s) reviewed by me Problem List/Assessment/Plan Problem List/Assessment/Plan Assessment/plan Neurology #Sedation -off sedation # acute metabolic encephalopathy likely due to sepsis -resolving, but complete neurological examination cant be accessed as pt is non verbal # history of seizures -History of seizure during last admission (1 month back) used Keppra for 1 week Discontinued Keppra, on 06/16 EEG shows abnormal EEG recording consistent with the presence of a diffuse nonspecific encephalopathic state # history of stroke Old infarct in the right frontal lobe and right parietal occipital lobe, seen on imaging Cardiovascular # shock likely septic -resolved #Hypertension -amlodipine 10 mg daily, clonidine 0.2 mg p.o. b.i.d., hydralazine 100 mg p.o. Q HR, metoprolol 50 mg p.o. b.i.d. Respiratory # acute hypoxic respiratory failure due to pneumonia s/p tracheostomy 06/13 -albuterol p.r.n., ipratropium neb -on T collar , room air # aspiration pneumonia, Gram-positive/Gram-negative -currently on IV meropenem # pneumomediastinum and pneumopericardium -seen on imaging # left lower lobe atelectasis -seen on imaging #Recurrent mucus plugging -Mucomyst -repeat CXR -s/p multiple bronchoscopy GI # hepatitis-C positive # status post PEG tube 06/15 Nephrology # FROYLAN due to hemodynamic mediated likely due to sepsis, requiring dialysis - Homer catheter placed on left internal jugular, on 06/26, removed on 07/04 - tunneled catheter placed to the right upper chest 07/04 -received dialysis today -on Bumex tablet 2 mg p.o. b.i.d. -250 cc urine output today # hyponatremia, improved monitor # hyperkalemia -monitor # hypomagnesemia -monitor Urology # UTI -currently on IV meropenem # s/p suprapubic catheter Musculoskeletal/dermatological # status post above-knee amputation - due to peripheral arterial disease # decubitus ulcer -wound care Endocrine # secondary hyperparathyroidism -likely due to FROYLAN/CKD # hypocalcemia due to FROYLAN/CKD -on oral calcium, discontinued # hypoglycemia likely due to sepsis -resolved Hematology/oncology # severe anemia requiring transfusion, anemia of chronic disease, macrocytic anemia -monitor CBC # thrombocytopenia -monitor CBC Infectious disease # septic shock -resolved -currenltly on meropenam Psychiatry #Anxiety -ativan oral PRN LINES/DRAINS/ACCESS: ETT, intubated on 05/28/2024 and tracheostomy performed on 06/11, PEG tube placed on 06/15 IV access Left internal jugular CVC, placed on 06/26 and removed on 07/04 Right IJ hemodialysis catheter placed 07/04 Left upper PICC line Suprapubic catheter, changed on 07/14/2024 Jamil: Off Fentanyl patch 25 mg Off pressor Nutrition Enteral through PEG tube , nepro with carb steady DVT prophylaxis Started on heparin 5000 subc q.12h Peptic ulcer disease prophylaxis Omeprazole 20 mg GT daily Bowel regimen Lactulose 30 mg q.12h Code status discussed with the family for greater than 21 minutes, full code Case discussion with Dr. isabel web services developer consulted for subacute care facility Plan discussed with: Other Dietary Evaluation Review Comments: 1) If GI is assessible consider Jevity 1.2 @ 60 ml/hr x24 hrs goal rate as tolerated 2) If pt remains NPO >7 days consider TPN to meet at least 75% of estimated needs 3) Advance pt diet when medically feasible to a Cardiac/Renal Specific K2,2gmNA,low phos,60g Pro diet modified per CORN DETASSELER MACHINE OPERATOR recommendations 4) Continue current plan of care Expected Outcomes/Goals: 1) Pt to receive adequate nutrition support 2) Pt diet to advance CC Plasma Assessment Blood Product Administration S: [id number] Date of Service: Aug 05, 2024 Billing Provider: HOLGER ISABEL MD Common Visit Codes: [id number] INP/OBS CARE(HIGH) Secondary Visit Codes: [id number] CARE PLAN 30 MINUTES DANGELO COTO RESIDENT Aug 05, 2024 18:44 HOLGER ISABEL MD Aug 06, 2024 15:33
[2024-08-05] MEDS: EPOETIN ALFA-EPBX 10,000 UNIT/1ML VIAL SC ONE (21:10)
[2024-08-06] VITALS (16 sets, daily range): BP systolic 118–154; BP diastolic 56–69; PULSE 72–89; RESP 16–20; TEMP 98.1–98.7; O2SAT 92–99
[2024-08-06 07:18] LABS: Chloride 99 mmol/L (98-107); Potassium 4.6 mmol/L (3.5-5.1)
[2024-08-06 07:19] LABS: Anion Gap 6 (5-15); Carbon Dioxide 30 mmol/L (20-31)
[2024-08-06 07:24] LABS: BUN/Creatinine Ratio 23.6 (10.0-20.0); Basophils # (auto) 0 10 ^3/uL (0-0.2); Basophils % (auto) 0.9 % (0.0-2.0); Blood Urea Nitrogen 61 mg/dL (9-23); Calcium 10.9 mg/dL (8.7-10.4); Eosinophils # (auto) 0.2 10 ^3/uL (0-0.8); Eosinophils % (auto) 3.7 % (0.0-7.0); Glucose 98 mg/dL (74-106); Hematocrit 26.3 % (41.0-53.0); Hemoglobin 8.7 g/dL (13.5-17.5); Lymphocytes # (auto) 1.1 10 ^3/uL (0.4-5.4); Lymphocytes % (auto) 20.8 % (10.0-50.0); Mean Corpuscular Hemoglobin 32.6 pg (28.0-32.0); Mean Corpuscular Volume 98.7 fL (80.0-100.0); Monocytes # (auto) 0.6 10 ^3/uL (0-1.3); Monocytes % (auto) 10.4 % (0.0-12.0); Neutrophils # (auto) 3.5 10 ^3/uL (1.6-8.6); Neutrophils % (auto) 64.2 % (37.0-80.0); Platelet Count (auto) 188 10^3/uL (140-450); Red Blood Cells 2.66 10^6/uL (4.5-5.90); Red Cell Distribution Width 17.1 % (11.8-14.3); Sodium 135 mmol/L (136-145); White Blood Cell 5.5 10^3/uL (4.4-10.8)
[2024-08-06 07:25] LABS: Magnesium 2.3 mg/dL (1.6-2.6)
[2024-08-06 10:29] LABS: Base Excess 3.8 mmol/L (-2.0-3.0)
--- NOTE | 2024-08-06 10:36 | DVH ---
CHEST RADIOGRAPH Indication: pneumothorax Technique: Single frontal view of the chest was obtained Comparison: XY CHEST PORTABLE on DOS: 08/04/24, XY CHEST PORTABLE on DOS: 07/31/24, XY CHEST PORTABLE o n DOS: 07/30/24, XY CHEST PORTABLE on DOS: 07/29/24, XY CHEST PORTABLE on DOS: 07/28/24 FINDINGS: Lines and Tubes: Right tunneled hemodialysis catheter. ET tube 7cm from chacho. Lungs: Left basilar opacity Pleura: Small left pleural effusion. No pneumothorax. Cardiomediastinal contours: Unremarkable Bones: No acute osseous abnormality. IMPRESSION: Left basilar opacity. Small left pleural effusion.
--- NOTE | 2024-08-06 12:15 | DVHPN2 ---
Progress Note Date Seen: Aug 06, 2024 Has the PT tested + for MRSA If YES, has PT been informed?: Yes Medical Necessity Reason Pt with a Central, PICC or Fol: Yes The following are medically ne: Rubio Catheter Reason for rubio catheter: Strict I&O Subjective Patient reports: No new complaints Other Systems: Patient seen and examined by myself today in follow-up Objective vital signs Vital Sign Date Time Temp Pulse Resp B/P (MAP) Pulse Ox O2 Delivery O2 Flow Rate FiO2 08/06/24 11:34 72 17 99 08/06/24 11:26 Cool Aerosol 6 N/A 08/06/24 10:35 148/70 08/06/24 09:00 98.2 98.2 Total Intake and Output 08/05/24 08/05/24 08/06/24 15:00 23:00 07:00 Intake Total 200 ml 50 ml 0 ml Output Total 150 ml 100 ml Balance 200 ml -100 ml -100 ml medications Current Medications Medications Dose Ordered Sig/[place] Route Start Time Stop Time Status Last Admin Dose Admin Enoxaparin Sodium 40 mg DAILY SC 06/10/24 10:00 UNV Enoxaparin Sodium 40 mg DAILY SC 06/17/24 10:00 UNV Epoetin Calin-epbx 10,000 unit TUTHSA SC 06/17/24 12:00 Hold 06/28/24 08:25 10,000 UNIT Lactulose 30 ml [id number] PRN PEG 07/01/24 10:15 07/27/24 09:15 30 ML Metoprolol Tartrate 50 mg BID PO 07/01/24 22:00 08/06/24 10:35 50 MG Clonidine HCl 0.2 mg BID PO 07/03/24 22:00 08/06/24 10:35 0.2 MG Hydralazine HCl 100 mg Q8HR PO 07/07/24 22:00 08/06/24 05:51 100 MG Heparin Sodium (Porcine) 4,000 units JACKY PRN XX 07/09/24 11:00 08/05/24 11:26 4,000 UNITS Amlodipine Besylate 10 mg DAILY PO 07/11/24 10:00 08/06/24 10:34 10 MG Acetylcysteine 200 mg Q6HR NEB 07/14/24 12:00 08/06/24 11:26 200 MG Albuterol 2.5 mg Q6HR NEB 07/14/24 12:00 08/06/24 11:27 2.5 MG Ipratropium [place] 0.5 mg Q6HR NEB 07/14/24 12:00 08/06/24 11:27 0.5 MG Bumetanide 2 mg BIDD PO 07/19/24 15:00 08/06/24 05:50 2 MG Acetaminophen 650 mg Q6HP PRN PO 07/22/24 19:53 08/03/24 06:21 650 MG Fentanyl 25 mcg Q72H TD 07/27/24 10:00 08/05/24 09:30 25 MCG Omeprazole 20 mg DAILY GT 07/28/24 10:00 08/06/24 10:39 20 MG Calcium Acetate 1,334 mg TIDWM PEG 07/28/24 12:33 08/06/24 10:34 1,334 MG Enteral Nutritional Formula 1,000 ml 60ML/HR GT 07/28/24 11:45 08/05/24 17:54 1,000 ML Lorazepam 0.25 mg Q12HP PRN PO 07/28/24 17:15 08/05/24 22:07 0.25 MG Heparin Sodium (Porcine) 5,000 units Q12HR SC 07/28/24 22:00 08/06/24 10:38 5,000 UNITS Cefepime/Dextrose 50 ml @ 12.5 mls/hr Q24H IV 08/01/24 19:00 08/05/24 17:54 12.5 MLS/HR Examination: LUNGS:Normal, CVS:Normal, MSK:Normal laboratory and microbiology Laboratory Tests 08/06/24 06:37 Test 08/06/24 06:37 Range/Units Serum Glucose 98 74-106 mg/dL Microbiology Date/Time Source Procedure Growth Status 07/24/24 18:34 Trachea Gram Stain - Final Complete 07/24/24 18:34 Respiratory Culture - Final Pseudomonas aeruginosa Complete 07/24/24 15:15 Blood Blood Culture - Final NO GROWTH AFTER 5 DAYS OF INCUBATION. Complete 07/18/24 22:30 Urine - Suprapubic Aspirate Urine Culture - Final Complete 06/11/24 16:06 Bronchial Washings Gram Stain - Final Complete 06/11/24 16:06 Respiratory Culture - Final Acinetobacter baumannii Pseudomonas aeruginosa Complete 05/30/24 11:45 Pleural Fluid Gram Stain - Final Complete 05/30/24 11:45 Pleural Fluid Body Fluid Culture - Final Complete Problem List/Assessment/Plan Problem List/Assessment/Plan Acute kidney injury superimposed on chronic kidney disease stage 4, oliguric requiring initiation of hemodialysis Acute respiratory failure, patient is trached Anemia suspected due to low blood loss s/p PRBC Septic shock Hypernatremia Hypomagnesemia Peripheral arterial disease Right above knee amputation Metabolic acidosis Chronic urinary retention MRSA bacteremia Recommendations Dialysis tomorrow Epogen 79337 IV post hemodialysis Rubio catheter Strict I&Os Renal diet PEG feeding with nepro IV antibiotic per ID consult We will continue to follow Plan discussed with: Patient Dietary Evaluation Review Comments: 1) If GI is assessible consider Jevity 1.2 @ 60 ml/hr x24 hrs goal rate as tolerated 2) If pt remains NPO >7 days consider TPN to meet at least 75% of estimated needs 3) Advance pt diet when medically feasible to a Cardiac/Renal Specific K2,2gmNA,low phos,60g Pro diet modified per MUSEUM PREPARATOR recommendations 4) Continue current plan of care Expected Outcomes/Goals: 1) Pt to receive adequate nutrition support 2) Pt diet to advance CC Plasma Assessment Blood Product Administration S: [id number] DAVID TORRES MD Aug 06, 2024 12:15
--- NOTE | 2024-08-06 16:55 | DVHPNRES ---
Progress Note Date Seen: Aug 06, 2024 Resident Creating Document: DANGELO COTO RESIDENT Has the PT tested + for MRSA If YES, has PT been informed?: Yes Medical Necessity Reason Pt with a Central, PICC or Fol: Yes The following are medically ne: Rubio Catheter Reason for rubio catheter: Strict I&O Subjective Review of Systems Patient seen and examined at bedside Patient is currently on 6L 02 through trach collar Patient comprehends and follows commands. pt had an episode of desaturation in the morning, which resolved with suction and AMBU bag agricultural services director consulted for transfer to subacute facility Objective vital signs Vital Sign Date Time Temp Pulse Resp B/P (MAP) Pulse Ox O2 Delivery O2 Flow Rate FiO2 08/06/24 13:32 138/71 08/06/24 13:00 98.4 76 20 96 98.4 08/06/24 11:26 Cool Aerosol 6 N/A Total Intake and Output 08/05/24 08/05/24 08/06/24 15:00 23:00 07:00 Intake Total 200 ml 50 ml 0 ml Output Total 150 ml 100 ml Balance 200 ml -100 ml -100 ml medications Current Medications Medications Dose Ordered Sig/[place] Route Start Time Stop Time Status Last Admin Dose Admin Enoxaparin Sodium 40 mg DAILY SC 06/10/24 10:00 UNV Enoxaparin Sodium 40 mg DAILY SC 06/17/24 10:00 UNV Epoetin Calin-epbx 10,000 unit TUTHSA SC 06/17/24 12:00 Hold 06/28/24 08:25 10,000 UNIT Lactulose 30 ml [id number] PRN PEG 07/01/24 10:15 07/27/24 09:15 30 ML Metoprolol Tartrate 50 mg BID PO 07/01/24 22:00 08/06/24 10:35 50 MG Clonidine HCl 0.2 mg BID PO 07/03/24 22:00 08/06/24 10:35 0.2 MG Hydralazine HCl 100 mg Q8HR PO 07/07/24 22:00 08/06/24 13:32 100 MG Heparin Sodium (Porcine) 4,000 units JACKY PRN XX 07/09/24 11:00 08/05/24 11:26 4,000 UNITS Amlodipine Besylate 10 mg DAILY PO 07/11/24 10:00 08/06/24 10:34 10 MG Acetylcysteine 200 mg Q6HR NEB 07/14/24 12:00 08/06/24 11:26 200 MG Albuterol 2.5 mg Q6HR NEB 07/14/24 12:00 08/06/24 11:27 2.5 MG Ipratropium [place] 0.5 mg Q6HR NEB 07/14/24 12:00 08/06/24 11:27 0.5 MG Bumetanide 2 mg BIDD PO 07/19/24 15:00 08/06/24 05:50 2 MG Acetaminophen 650 mg Q6HP PRN PO 07/22/24 19:53 08/03/24 06:21 650 MG Fentanyl 25 mcg Q72H TD 07/27/24 10:00 08/05/24 09:30 25 MCG Omeprazole 20 mg DAILY GT 07/28/24 10:00 08/06/24 10:39 20 MG Calcium Acetate 1,334 mg TIDWM PEG 07/28/24 12:33 08/06/24 13:33 1,334 MG Enteral Nutritional Formula 1,000 ml 60ML/HR GT 07/28/24 11:45 08/05/24 17:54 1,000 ML Lorazepam 0.25 mg Q12HP PRN PO 07/28/24 17:15 08/05/24 22:07 0.25 MG Heparin Sodium (Porcine) 5,000 units Q12HR SC 07/28/24 22:00 08/06/24 10:38 5,000 UNITS Cefepime/Dextrose 50 ml @ 12.5 mls/hr Q24H IV 08/01/24 19:00 08/05/24 17:54 12.5 MLS/HR Examination Examination General Appearance: Nonverbal, on trach collar, 6 L through nasal cannula continuous Respiratory: Clear to auscultation, Normal air movement, on 6 L through Cardiovascular: Regular rate, Normal S1, Normal S2 Abdominal: Normal bowel sounds, peg tube present, suprapubic catheter present Extremities: Right BKA, 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 Complete 07/18/24 22:30 Urine - Suprapubic Aspirate Urine Culture - Final Complete 06/11/24 16:06 Bronchial Washings Gram Stain - Final Complete 06/11/24 16:06 Respiratory Culture - Final Acinetobacter baumannii Pseudomonas aeruginosa Complete 05/30/24 11:45 Pleural Fluid Gram Stain - Final Complete 05/30/24 11:45 Pleural Fluid Body Fluid Culture - Final Complete Labs and/or images reviewed: Labs reviewed by me, Image(s) reviewed by me Problem List/Assessment/Plan Problem List/Assessment/Plan Assessment/plan Neurology #Sedation -off sedation # acute metabolic encephalopathy likely due to sepsis -resolving, but complete neurological examination cant be accessed as pt is non verbal # history of seizures -History of seizure during last admission (1 month back) used Keppra for 1 week Discontinued Keppra, on 06/16 EEG shows abnormal EEG recording consistent with the presence of a diffuse nonspecific encephalopathic state # history of stroke Old infarct in the right frontal lobe and right parietal occipital lobe, seen on imaging Cardiovascular # shock likely septic -resolved #Hypertension -amlodipine 10 mg daily, clonidine 0.2 mg p.o. b.i.d., hydralazine 100 mg p.o. Q HR, metoprolol 50 mg p.o. b.i.d. Respiratory # acute hypoxic respiratory failure due to pneumonia s/p tracheostomy 06/13 -albuterol p.r.n., ipratropium neb -on T collar , room air # aspiration pneumonia, Gram-positive/Gram-negative -currently on IV meropenem # pneumomediastinum and pneumopericardium -seen on imaging # left lower lobe atelectasis -seen on imaging #Recurrent mucus plugging -Mucomyst -repeat CXR -s/p multiple bronchoscopy GI # hepatitis-C positive # status post PEG tube 06/15 Nephrology # FROYLAN due to hemodynamic mediated likely due to sepsis, requiring dialysis - Homer catheter placed on left internal jugular, on 06/26, removed on 07/04 - tunneled catheter placed to the right upper chest 12/20 -received dialysis as per schedule -on Bumex tablet 2 mg p.o. b.i.d. # hyponatremia, improved monitor # hyperkalemia -monitor # hypomagnesemia -monitor Urology # UTI -currently on IV cefepime # s/p suprapubic catheter Musculoskeletal/dermatological # status post above-knee amputation - due to peripheral arterial disease # decubitus ulcer -wound care Endocrine # secondary hyperparathyroidism -likely due to FROYLAN/CKD # hypocalcemia due to FROYLAN/CKD -on oral calcium, discontinued # hypoglycemia likely due to sepsis -resolved Hematology/oncology # severe anemia requiring transfusion, anemia of chronic disease, macrocytic anemia -monitor CBC # thrombocytopenia -monitor CBC Infectious disease # septic shock -resolved -currenltly on cefepime Psychiatry #Anxiety -ativan oral PRN LINES/DRAINS/ACCESS: ETT, intubated on 05/28/2024 and tracheostomy performed on 06/11, PEG tube placed on 06/15 IV access Left internal jugular CVC, placed on 06/26 and removed on 07/04 Right IJ hemodialysis catheter placed 07/04 Left upper PICC line Suprapubic catheter, changed on 07/14/2024 Dripps: Off Fentanyl patch 25 mg Off pressor Nutrition Enteral through PEG tube , nepro with carb steady DVT prophylaxis Started on heparin 5000 subc q.12h Peptic ulcer disease prophylaxis Omeprazole 20 mg GT daily Bowel regimen Lactulose 30 mg q.12h Code status discussed with the family for greater than 21 minutes, full code Case discussion with Dr. isabel agricultural services director consulted for subacute care facility Plan discussed with: Other My Orders My Orders Orders - DANGELO COTO RESIDENT Procedure Category Date Status Time Chest Xray 1 View XY 08/06/24 Resulted 10:09 Abg W/ Co-Ox RT 08/06/24 Logged 10:09 Abg W/ Co-Ox RT 08/06/24 Logged 10:20 Dietary Evaluation Review Comments: 1) If GI is assessible consider Jevity 1.2 @ 60 ml/hr x24 hrs goal rate as tolerated 2) If pt remains NPO >7 days consider TPN to meet at least 75% of estimated needs 3) Advance pt diet when medically feasible to a Cardiac/Renal Specific K2,2gmNA,low phos,60g Pro diet modified per PEER EDUCATOR recommendations 4) Continue current plan of care Expected Outcomes/Goals: 1) Pt to receive adequate nutrition support 2) Pt diet to advance CC Plasma Assessment Blood Product Administration S: [id number] Date of Service: Aug 06, 2024 Billing Provider: HOLGER ISABEL MD Common Visit Codes: [id number] INP/OBS CARE(HIGH) DANGELO COTO RESIDENT Aug 06, 2024 16:55 HOLGER ISABEL MD Aug 07, 2024 12:00
[2024-08-07] VITALS (19 sets, daily range): BP systolic 106–138; BP diastolic 59–100; PULSE 70–113; RESP 16–20; TEMP 97.2–98.4; O2SAT 92–98
[2024-08-07] MEDS: SODIUM CHL 0.9% 1000 ML BAG XX ONE (13:20)
[2024-08-07] MEDS: ALBUMIN 25% 50 ML IV PRN (13:28)
--- NOTE | 2024-08-07 14:27 | DVHPN2 ---
Progress Note Date Seen: Aug 07, 2024 Has the PT tested + for MRSA If YES, has PT been informed?: Yes Medical Necessity Reason Pt with a Central, PICC or Fol: Yes The following are medically ne: Rubio Catheter Reason for rubio catheter: Strict I&O Subjective Review of Systems: RESPIRATORY:Abnormal Other Systems: Patient seen and examined by myself today in follow-up Patient examined hemodialysis, blood pressure stable Objective vital signs Vital Sign Date Time Temp Pulse Resp B/P (MAP) Pulse Ox O2 Delivery O2 Flow Rate FiO2 08/07/24 12:52 91 20 97 08/07/24 12:42 Trach Collar 6.0 08/07/24 12:42 28 28 08/07/24 08:38 98.4 122/100 (107) 98.4 Total Intake and Output 08/06/24 08/06/24 08/07/24 15:00 23:00 07:00 Intake Total 8 ml 0 ml Output Total 100 ml 50 ml Balance -92 ml -50 ml medications Current Medications Medications Dose Ordered Sig/[place] Route Start Time Stop Time Status Last Admin Dose Admin Enoxaparin Sodium 40 mg DAILY SC 06/10/24 10:00 UNV Enoxaparin Sodium 40 mg DAILY SC 06/17/24 10:00 UNV Epoetin Calin-epbx 10,000 unit TUTHSA SC 06/17/24 12:00 Hold 06/28/24 08:25 10,000 UNIT Lactulose 30 ml [id number] PRN PEG 07/01/24 10:15 07/27/24 09:15 30 ML Metoprolol Tartrate 50 mg BID PO 07/01/24 22:00 08/06/24 21:28 50 MG Clonidine HCl 0.2 mg BID PO 07/03/24 22:00 08/06/24 21:28 0.2 MG Hydralazine HCl 100 mg Q8HR PO 07/07/24 22:00 08/07/24 05:35 100 MG Heparin Sodium (Porcine) 4,000 units JACKY PRN XX 07/09/24 11:00 08/05/24 11:26 4,000 UNITS Amlodipine Besylate 10 mg DAILY PO 07/11/24 10:00 08/06/24 10:34 10 MG Acetylcysteine 200 mg Q6HR NEB 07/14/24 12:00 08/07/24 12:42 200 MG Albuterol 2.5 mg Q6HR NEB 07/14/24 12:00 08/07/24 12:42 2.5 MG Ipratropium [place] 0.5 mg Q6HR NEB 07/14/24 12:00 08/07/24 12:42 0.5 MG Bumetanide 2 mg BIDD PO 07/19/24 15:00 08/07/24 05:35 2 MG Acetaminophen 650 mg Q6HP PRN PO 07/22/24 19:53 08/03/24 06:21 650 MG Fentanyl 25 mcg Q72H TD 07/27/24 10:00 08/05/24 09:30 25 MCG Omeprazole 20 mg DAILY GT 07/28/24 10:00 08/06/24 10:39 20 MG Calcium Acetate 1,334 mg TIDWM PEG 07/28/24 12:33 08/07/24 09:55 1,334 MG Enteral Nutritional Formula 1,000 ml 60ML/HR GT 07/28/24 11:45 08/06/24 18:18 1,000 ML Lorazepam 0.25 mg Q12HP PRN PO 07/28/24 17:15 08/05/24 22:07 0.25 MG Heparin Sodium (Porcine) 5,000 units Q12HR SC 07/28/24 22:00 08/07/24 10:41 5,000 UNITS Examination: LUNGS:Normal, CVS:Normal, MSK:Normal laboratory and microbiology Laboratory Tests 08/06/24 06:37 Test 08/06/24 06:37 Range/Units Serum Glucose 98 74-106 mg/dL Microbiology Date/Time Source Procedure Growth Status 07/24/24 18:34 Trachea Gram Stain - Final Complete 07/24/24 18:34 Respiratory Culture - Final Pseudomonas aeruginosa Complete 07/24/24 15:15 Blood Blood Culture - Final NO GROWTH AFTER 5 DAYS OF INCUBATION. Complete 07/18/24 22:30 Urine - Suprapubic Aspirate Urine Culture - Final Complete 06/11/24 16:06 Bronchial Washings Gram Stain - Final Complete 06/11/24 16:06 Respiratory Culture - Final Acinetobacter baumannii Pseudomonas aeruginosa Complete 05/30/24 11:45 Pleural Fluid Gram Stain - Final Complete 05/30/24 11:45 Pleural Fluid Body Fluid Culture - Final Complete Problem List/Assessment/Plan Problem List/Assessment/Plan Acute kidney injury superimposed on chronic kidney disease stage 4, oliguric requiring initiation of hemodialysis Acute respiratory failure, patient is trached Anemia suspected due to low blood loss s/p PRBC Septic shock Hypernatremia Hypomagnesemia Peripheral arterial disease Right above knee amputation Metabolic acidosis Chronic urinary retention MRSA bacteremia Recommendations Continue with UF 2 L as tolerated Epogen 08384 IV post hemodialysis Rubio catheter Strict I&Os Renal diet PEG feeding with nepro IV antibiotic per ID consult We will continue to follow Plan discussed with: Patient Dietary Evaluation Review Comments: 1) If GI is assessible consider Jevity 1.2 @ 60 ml/hr x24 hrs goal rate as tolerated 2) If pt remains NPO >7 days consider TPN to meet at least 75% of estimated needs 3) Advance pt diet when medically feasible to a Cardiac/Renal Specific K2,2gmNA,low phos,60g Pro diet modified per TMD TEACHER recommendations 4) Continue current plan of care Expected Outcomes/Goals: 1) Pt to receive adequate nutrition support 2) Pt diet to advance CC Plasma Assessment Blood Product Administration S: [id number] DAVID TORRES MD Aug 07, 2024 14:27
--- NOTE | 2024-08-07 16:09 | DVHPNRES ---
Progress Note Date Seen: Aug 07, 2024 Resident Creating Document: DANGELO COTO RESIDENT Has the PT tested + for MRSA If YES, has PT been informed?: Yes Medical Necessity Reason Pt with a Central, PICC or Fol: Yes The following are medically ne: Rubio Catheter Reason for rubio catheter: Strict I&O Subjective Review of Systems Patient seen and examined at bedside Patient is currently on 6L 02 through trach collar Objective vital signs Vital Sign Date Time Temp Pulse Resp B/P (MAP) Pulse Ox O2 Delivery O2 Flow Rate FiO2 08/07/24 13:00 98.2 86 18 138/78 (98) 95 98.2 08/07/24 12:42 Trach Collar 6.0 08/07/24 12:42 28 28 Total Intake and Output 08/06/24 08/06/24 08/07/24 15:00 23:00 07:00 Intake Total 8 ml 0 ml Output Total 100 ml 50 ml Balance -92 ml -50 ml medications Current Medications Medications Dose Ordered Sig/[place] Route Start Time Stop Time Status Last Admin Dose Admin Enoxaparin Sodium 40 mg DAILY SC 06/10/24 10:00 UNV Enoxaparin Sodium 40 mg DAILY SC 06/17/24 10:00 UNV Epoetin Calin-epbx 10,000 unit TUTHSA SC 06/17/24 12:00 Hold 06/28/24 08:25 10,000 UNIT Lactulose 30 ml [id number] PRN PEG 07/01/24 10:15 07/27/24 09:15 30 ML Metoprolol Tartrate 50 mg BID PO 07/01/24 22:00 08/06/24 21:28 50 MG Clonidine HCl 0.2 mg BID PO 07/03/24 22:00 08/06/24 21:28 0.2 MG Hydralazine HCl 100 mg Q8HR PO 07/07/24 22:00 08/07/24 05:35 100 MG Heparin Sodium (Porcine) 4,000 units JACKY PRN XX 07/09/24 11:00 08/05/24 11:26 4,000 UNITS Amlodipine Besylate 10 mg DAILY PO 07/11/24 10:00 08/06/24 10:34 10 MG Acetylcysteine 200 mg Q6HR NEB 07/14/24 12:00 08/07/24 12:42 200 MG Albuterol 2.5 mg Q6HR NEB 07/14/24 12:00 08/07/24 12:42 2.5 MG Ipratropium [place] 0.5 mg Q6HR NEB 07/14/24 12:00 08/07/24 12:42 0.5 MG Bumetanide 2 mg BIDD PO 07/19/24 15:00 08/07/24 05:35 2 MG Acetaminophen 650 mg Q6HP PRN PO 07/22/24 19:53 08/03/24 06:21 650 MG Fentanyl 25 mcg Q72H TD 07/27/24 10:00 08/05/24 09:30 25 MCG Omeprazole 20 mg DAILY GT 07/28/24 10:00 08/06/24 10:39 20 MG Calcium Acetate 1,334 mg TIDWM PEG 07/28/24 12:33 08/07/24 09:55 1,334 MG Enteral Nutritional Formula 1,000 ml 60ML/HR GT 07/28/24 11:45 08/06/24 18:18 1,000 ML Lorazepam 0.25 mg Q12HP PRN PO 07/28/24 17:15 08/05/24 22:07 0.25 MG Heparin Sodium (Porcine) 5,000 units Q12HR SC 07/28/24 22:00 08/07/24 10:41 5,000 UNITS Ceftazidime/ Dextrose 1 gm/ Sodium Chloride 50 ml @ 16.667 mls/ hr HS IV 08/07/24 22:00 Examination Examination General Appearance: Nonverbal, on trach collar, 6 L through nasal cannula continuous Respiratory: Clear to auscultation, Normal air movement, on 6 L through Cardiovascular: Regular rate, Normal S1, Normal S2 Abdominal: Normal bowel sounds, peg tube present, suprapubic catheter present Extremities: Right BKA, 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 Complete 07/18/24 22:30 Urine - Suprapubic Aspirate Urine Culture - Final Complete 06/11/24 16:06 Bronchial Washings Gram Stain - Final Complete 06/11/24 16:06 Respiratory Culture - Final Acinetobacter baumannii Pseudomonas aeruginosa Complete 05/30/24 11:45 Pleural Fluid Gram Stain - Final Complete 05/30/24 11:45 Pleural Fluid Body Fluid Culture - Final Complete Labs and/or images reviewed: Labs reviewed by me, Image(s) reviewed by me Problem List/Assessment/Plan Problem List/Assessment/Plan Assessment/plan Neurology #Sedation -off sedation # acute metabolic encephalopathy likely due to sepsis -resolving, but complete neurological examination cant be accessed as pt is non verbal # history of seizures -History of seizure during last admission (1 month back) used Keppra for 1 week Discontinued Keppra, on 06/16 EEG shows abnormal EEG recording consistent with the presence of a diffuse nonspecific encephalopathic state # history of stroke Old infarct in the right frontal lobe and right parietal occipital lobe, seen on imaging Cardiovascular # shock likely septic -resolved #Hypertension -amlodipine 10 mg daily, clonidine 0.2 mg p.o. b.i.d., hydralazine 100 mg p.o. Q HR, metoprolol 50 mg p.o. b.i.d. Respiratory # acute hypoxic respiratory failure due to pneumonia s/p tracheostomy 06/13 -albuterol p.r.n., ipratropium neb -on T collar , room air # aspiration pneumonia, Gram-positive/Gram-negative -changed to IV ceftazidime # pneumomediastinum and pneumopericardium -seen on imaging # left lower lobe atelectasis -seen on imaging #Recurrent mucus plugging -Mucomyst -repeat CXR -s/p multiple bronchoscopy GI # hepatitis-C positive # status post PEG tube 06/15 Nephrology # FROYLAN due to hemodynamic mediated likely due to sepsis, requiring dialysis - Homer catheter placed on left internal jugular, on 06/26, removed on 07/04 - tunneled catheter placed to the right upper chest 07/04 -received dialysis as per schedule -on Bumex tablet 2 mg p.o. b.i.d. # hyponatremia, improved monitor # hyperkalemia -monitor # hypomagnesemia -monitor Urology # UTI -currently on IV cefepime # s/p suprapubic catheter Musculoskeletal/dermatological # status post above-knee amputation - due to peripheral arterial disease # decubitus ulcer -wound care Endocrine # secondary hyperparathyroidism -likely due to FROYLAN/CKD # hypocalcemia due to FROYLAN/CKD -on oral calcium, discontinued # hypoglycemia likely due to sepsis -resolved Hematology/oncology # severe anemia requiring transfusion, anemia of chronic disease, macrocytic anemia -monitor CBC # thrombocytopenia -monitor CBC Infectious disease # septic shock -resolved -currently on ceftazidime Psychiatry #Anxiety -Ativan oral PRN LINES/DRAINS/ACCESS: ETT, intubated on 05/28/2024 and tracheostomy performed on 06/11, PEG tube placed on 06/15 IV access Left internal jugular CVC, placed on 06/26 and removed on 07/04 Right IJ hemodialysis catheter placed 07/04 Left upper PICC line Suprapubic catheter, changed on 07/14/2024 Dripps: Off Fentanyl patch 25 mg Off pressor Nutrition Enteral through PEG tube , nepro with carb steady DVT prophylaxis Started on heparin 5000 subc q.12h Peptic ulcer disease prophylaxis Omeprazole 20 mg GT daily Bowel regimen Lactulose 30 mg q.12h Code status discussed with the family for greater than 21 minutes, full code Case discussion with Dr. isabel director of student financial services consulted for subacute care facility Plan discussed with: Other My Orders My Orders Orders - DANGELO COTO RESIDENT Procedure Category Date Status Time Abg W/ Co-Ox RT 08/08/24 Logged 04:00 Ceftazidime (Fortaz) PHA 08/07/24 In Process 22:00 Basic Metabolic Panel LAB 08/08/24 Verified 04:00 Complete Blood Count LAB 08/08/24 Verified 04:00 Magnesium LAB 08/08/24 Verified 04:00 Dietary Evaluation Review Comments: 1) If GI is assessible consider Jevity 1.2 @ 60 ml/hr x24 hrs goal rate as tolerated 2) If pt remains NPO >7 days consider TPN to meet at least 75% of estimated needs 3) Advance pt diet when medically feasible to a Cardiac/Renal Specific K2,2gmNA,low phos,60g Pro diet modified per MAIL ROOM CLERK recommendations 4) Continue current plan of care Expected Outcomes/Goals: 1) Pt to receive adequate nutrition support 2) Pt diet to advance CC Plasma Assessment Blood Product Administration S: [id number] Date of Service: Aug 07, 2024 Billing Provider: HOLGER ISABEL MD Common Visit Codes: [id number] INP/OBS CARE(HIGH) Secondary Visit Codes: [id number] CARE PLAN 30 MINUTES DANGELO COTO RESIDENT Aug 07, 2024 16:09 HOLGER ISABEL MD Aug 10, 2024 12:27
[2024-08-07] MEDS: cefTAZidime 1 GM in SODIUM CHL 0.9% 50 ML IV ONE (17:54)
[2024-08-07] MEDS: EPOETIN ALFA-EPBX 10,000 UNIT/1ML VIAL SC ONE (21:38)
[2024-08-07 22:00] LABS: Base Excess 4.6 mmol/L (-2.0-3.0)
[2024-08-08] VITALS (29 sets, daily range): BP systolic 90–153; BP diastolic 53–82; PULSE 80–120; RESP 16–34; TEMP 97.2–98.4; O2SAT 88–100
[2024-08-08] MEDS: cefTAZidime 1 GM in SODIUM CHL 0.9% 50 ML IV SCH (00:59)
[2024-08-08 05:37] LABS: Basophils # (auto) 0 10 ^3/uL (0-0.2); Basophils % (auto) 0.7 % (0.0-2.0); Eosinophils # (auto) 0.1 10 ^3/uL (0-0.8); Eosinophils % (auto) 0.9 % (0.0-7.0); Hemoglobin 8.7 g/dL (13.5-17.5); Lymphocytes # (auto) 1.1 10 ^3/uL (0.4-5.4); Lymphocytes % (auto) 16.4 % (10.0-50.0); Mean Corpuscular Hgb Conc. 33.4 g/dL (32.0-36.0); Mean Corpuscular Volume 98.8 fL (80.0-100.0); Monocytes # (auto) 0.7 10 ^3/uL (0-1.3); Monocytes % (auto) 10.3 % (0.0-12.0); Neutrophils # (auto) 4.8 10 ^3/uL (1.6-8.6); Neutrophils % (auto) 71.7 % (37.0-80.0); Nucleated Red Blood Cells % 0.1 %; Platelet Count (auto) 222 10^3/uL (140-450); Red Blood Cells 2.64 10^6/uL (4.5-5.90); Red Cell Distribution Width 17.4 % (11.8-14.3); White Blood Cell 6.7 10^3/uL (4.4-10.8)
[2024-08-08 05:44] LABS: Chloride 102 mmol/L (98-107); Potassium 4.2 mmol/L (3.5-5.1); Sodium 139 mmol/L (136-145)
[2024-08-08 05:45] LABS: Anion Gap 7 (5-15); Carbon Dioxide 30 mmol/L (20-31)
[2024-08-08 05:50] LABS: Glucose 92 mg/dL (74-106)
[2024-08-08 05:51] LABS: Magnesium 2.2 mg/dL (1.6-2.6)
[2024-08-08 06:03] LABS: Calcium 10.9 mg/dL (8.7-10.4)
[2024-08-08 06:07] LABS: BUN/Creatinine Ratio 20.6 (10.0-20.0)
[2024-08-08 06:08] LABS: Blood Urea Nitrogen 46 mg/dL (9-23)
[2024-08-08 08:22] LABS: Base Excess 2.8 mmol/L (-2.0-3.0)
--- NOTE | 2024-08-08 11:13 | DVH ---
EXAM: XY CHEST PORTABLE Indication: sob Technique: Single frontal view of the chest was obtained Comparison: XY CHEST XRAY 1 VIEW on DOS: 08/06/24, XY CHEST PORTABLE on DOS: 08/04/24, XY CHEST PORTABL E on DOS: 07/31/24, XY CHEST PORTABLE on DOS: 07/30/24, XY CHEST PORTABLE on DOS: 07/29/24 FINDINGS: Lines and Tubes: Right internal jugular central venous catheter tip projects over the superior vena c clementina. Lungs: Left basilar opacity. Pulmonary vascular congestion. Pleura: Small left pleural effusion. No pneumothorax. Cardiomediastinal contours: Cardiomegaly. Bones: No acute osseous abnormality. IMPRESSION: Small left pleural effusion with left basilar opacities. Pulmonary vascular congestion.
--- NOTE | 2024-08-08 11:59 | DVHPN2 ---
Progress Note Date Seen: Aug 08, 2024 Has the PT tested + for MRSA If YES, has PT been informed?: Yes Medical Necessity Reason Pt with a Central, PICC or Fol: Yes The following are medically ne: Rubio Catheter Reason for rubio catheter: Strict I&O Subjective Review of Systems: RESPIRATORY:Abnormal Other Systems: Patient seen and examined by myself today in follow-up patient remained with trach collar Objective vital signs Vital Sign Date Time Temp Pulse Resp B/P (MAP) Pulse Ox O2 Delivery O2 Flow Rate FiO2 08/08/24 09:13 127/72 08/08/24 09:12 88 08/08/24 09:00 98.0 18 96 98.0 08/08/24 08:00 Trach Collar 6 N/A Total Intake and Output 08/07/24 08/07/24 08/08/24 15:00 23:00 07:00 Intake Total 0 ml 50 ml Output Total 120 ml 150 ml Balance -120 ml -100 ml medications Current Medications Medications Dose Ordered Sig/[place] Route Start Time Stop Time Status Last Admin Dose Admin Enoxaparin Sodium 40 mg DAILY SC 06/10/24 10:00 UNV Enoxaparin Sodium 40 mg DAILY SC 06/17/24 10:00 UNV Epoetin Calin-epbx 10,000 unit TUTHSA SC 06/17/24 12:00 Hold 06/28/24 08:25 10,000 UNIT Lactulose 30 ml [id number] PRN PEG 07/01/24 10:15 07/27/24 09:15 30 ML Metoprolol Tartrate 50 mg BID PO 07/01/24 22:00 08/08/24 09:12 50 MG Clonidine HCl 0.2 mg BID PO 07/03/24 22:00 08/08/24 09:13 0.2 MG Hydralazine HCl 100 mg Q8HR PO 07/07/24 22:00 08/08/24 05:32 100 MG Heparin Sodium (Porcine) 4,000 units JACKY PRN XX 07/09/24 11:00 08/05/24 11:26 4,000 UNITS Amlodipine Besylate 10 mg DAILY PO 07/11/24 10:00 08/08/24 09:13 10 MG Acetylcysteine 200 mg Q6HR NEB 07/14/24 12:00 08/08/24 07:27 200 MG Albuterol 2.5 mg Q6HR NEB 07/14/24 12:00 08/08/24 07:27 2.5 MG Ipratropium Brice 0.5 mg Q6HR NEB 07/14/24 12:00 08/08/24 07:27 0.5 MG Bumetanide 2 mg BIDD PO 07/19/24 15:00 08/08/24 05:31 2 MG Acetaminophen 650 mg Q6HP PRN PO 07/22/24 19:53 08/03/24 06:21 650 MG Fentanyl 25 mcg Q72H TD 07/27/24 10:00 08/08/24 09:11 25 MCG Omeprazole 20 mg DAILY GT 07/28/24 10:00 08/07/24 16:29 20 MG Calcium Acetate 1,334 mg TIDWM PEG 07/28/24 12:33 08/08/24 09:12 1,334 MG Enteral Nutritional Formula 1,000 ml 60ML/HR GT 07/28/24 11:45 08/06/24 18:18 1,000 ML Lorazepam 0.25 mg Q12HP PRN PO 07/28/24 17:15 08/05/24 22:07 0.25 MG Heparin Sodium (Porcine) 5,000 units Q12HR SC 07/28/24 22:00 08/08/24 09:12 5,000 UNITS Ceftazidime/ Dextrose 1 gm/ Sodium Chloride 50 ml @ 16.667 mls/ hr HS IV 08/07/24 22:00 08/08/24 00:59 16.667 MLS/HR Examination: LUNGS:Normal, CVS:Normal, MSK:Abnormal laboratory and microbiology Laboratory Tests 08/08/24 04:55 Test 08/08/24 04:55 Range/Units Serum Glucose 92 74-106 mg/dL Microbiology Date/Time Source Procedure Growth Status 07/24/24 18:34 Trachea Gram Stain - Final Complete 07/24/24 18:34 Respiratory Culture - Final Pseudomonas aeruginosa Complete 07/24/24 15:15 Blood Blood Culture - Final NO GROWTH AFTER 5 DAYS OF INCUBATION. Complete 07/18/24 22:30 Urine - Suprapubic Aspirate Urine Culture - Final Complete 06/11/24 16:06 Bronchial Washings Gram Stain - Final Complete 06/11/24 16:06 Respiratory Culture - Final Acinetobacter baumannii Pseudomonas aeruginosa Complete 05/30/24 11:45 Pleural Fluid Gram Stain - Final Complete 05/30/24 11:45 Pleural Fluid Body Fluid Culture - Final Complete Problem List/Assessment/Plan Problem List/Assessment/Plan Acute kidney injury superimposed on chronic kidney disease stage 4, oliguric requiring initiation of hemodialysis Acute respiratory failure, patient is trached Anemia suspected due to low blood loss s/p PRBC Septic shock, resolved Hypernatremia resolved Hypomagnesemia Peripheral arterial disease Right above knee amputation Metabolic acidosis Chronic urinary retention MRSA bacteremia Recommendations Hemodialysis tomorrow Epogen 40603 IV post hemodialysis Rubio catheter Strict I&Os Renal diet PEG feeding with nepro IV antibiotic per ID consult We will continue to follow Plan discussed with: Patient Dietary Evaluation Review Comments: 1) If GI is assessible consider Jevity 1.2 @ 60 ml/hr x24 hrs goal rate as tolerated 2) If pt remains NPO >7 days consider TPN to meet at least 75% of estimated needs 3) Advance pt diet when medically feasible to a Cardiac/Renal Specific K2,2gmNA,low phos,60g Pro diet modified per EXTRACTOR MACHINE OPERATOR recommendations 4) Continue current plan of care Expected Outcomes/Goals: 1) Pt to receive adequate nutrition support 2) Pt diet to advance CC Plasma Assessment Blood Product Administration S: [id number] DAVID TORRES MD Aug 08, 2024 11:59
[2024-08-08] MEDS: NOREPINEPHRINE 8 MG/250ML KIT 250 ML IV ONE (18:38)
[2024-08-08] MEDS: NOREPINEPHRINE 8 MG/250ML KIT 250 ML IV SCH (18:39)
--- NOTE | 2024-08-08 19:06 | DVH ---
EXAM: XR Chest, 1 View CLINICAL INDICATION: Hypoxia TECHNIQUE: Frontal view of the chest. COMPARISON: XY CHEST PORTABLE on DOS: 08/08/24, XY CHEST XRAY 1 VIEW on DOS: 08/06/24, XY CHEST SHABNAM BLE on DOS: 08/04/24, XY CHEST PORTABLE on DOS: 07/31/24, XY CHEST PORTABLE on DOS: 07/30/24 FINDINGS: LUNGS AND PLEURAL SPACES: Left basilar atelectasis or pneumonia. HEART: Cardiomegaly with mild congestion. MEDIASTINUM: Unremarkable. Normal mediastinal contour. BONES/JOINTS: Unremarkable. No acute fracture. TUBES, LINES AND DEVICES: Right internal jugular central venous catheter tip in the superior vena ca va. Tracheostomy tube in proper position. OTHER FINDINGS: .. . . IMPRESSION: 1. Left basilar atelectasis or pneumonia. 2. Cardiomegaly with mild congestion. HS:Y
[2024-08-08 19:13] LABS: Basophils # (auto) 0.1 10 ^3/uL (0-0.2); Basophils % (auto) 0.9 % (0.0-2.0); Eosinophils # (auto) 0.1 10 ^3/uL (0-0.8); Eosinophils % (auto) 0.5 % (0.0-7.0); Hematocrit 26.1 % (41.0-53.0); Hemoglobin 8.6 g/dL (13.5-17.5); Lymphocytes # (auto) 3.1 10 ^3/uL (0.4-5.4); Lymphocytes % (auto) 23.1 % (10.0-50.0); Mean Corpuscular Hemoglobin 32.2 pg (28.0-32.0); Mean Corpuscular Volume 97.7 fL (80.0-100.0); Monocytes # (auto) 1.3 10 ^3/uL (0-1.3); Monocytes % (auto) 9.7 % (0.0-12.0); Neutrophils # (auto) 8.8 10 ^3/uL (1.6-8.6); Neutrophils % (auto) 65.8 % (37.0-80.0); Nucleated Red Blood Cells % 0.1 %; Platelet Count (auto) 311 10^3/uL (140-450); Red Blood Cells 2.67 10^6/uL (4.5-5.90); Red Cell Distribution Width 17.6 % (11.8-14.3); White Blood Cell 13.3 10^3/uL (4.4-10.8)
[2024-08-08 19:28] LABS: INR 1.14 (0.9-1.15); Partial Thromboplastin Time 32.2 SEC (24.5-34.5); Prothrombin Time 11.9 sec (9.3-11.8)
[2024-08-08 19:32] LABS: Base Excess 3.5 mmol/L (-2.0-3.0)
[2024-08-08 19:37] LABS: Anion Gap 6 (5-15); BUN/Creatinine Ratio 21.5 (10.0-20.0); Chloride 101 mmol/L (98-107); Potassium 3.7 mmol/L (3.5-5.1); Sodium 144 mmol/L (136-145)
[2024-08-08 19:38] LABS: Albumin 3.7 g/dL (3.2-4.8)
--- NOTE | 2024-08-08 19:39 | DVHPNRES ---
Progress Note Date Seen: Aug 08, 2024 Resident Creating Document: DANGELO COTO RESIDENT Has the PT tested + for MRSA If YES, has PT been informed?: Yes Medical Necessity Reason Pt with a Central, PICC or Fol: Yes The following are medically ne: Rubio Catheter Reason for rubio catheter: Strict I&O Subjective Review of Systems Patient seen and examined at bedside Patient is currently on 8L 02 through trach collar Objective vital signs Vital Sign Date Time Temp Pulse Resp B/P (MAP) Pulse Ox O2 Delivery O2 Flow Rate FiO2 08/08/24 17:52 101 20 90 08/08/24 17:00 98.1 153/75 (101) 98.1 08/08/24 12:33 Trach Collar 8 30 Cool Aerosol 30 Total Intake and Output 08/07/24 08/07/24 08/08/24 15:00 23:00 07:00 Intake Total 0 ml 50 ml Output Total 120 ml 150 ml Balance -120 ml -100 ml medications Current Medications Medications Dose Ordered Sig/[place] Route Start Time Stop Time Status Last Admin Dose Admin Enoxaparin Sodium 40 mg DAILY SC 06/10/24 10:00 UNV Enoxaparin Sodium 40 mg DAILY SC 06/17/24 10:00 UNV Epoetin Calin-epbx 10,000 unit TUTHSA SC 06/17/24 12:00 Hold 06/28/24 08:25 10,000 UNIT Lactulose 30 ml [id number] PRN PEG 07/01/24 10:15 07/27/24 09:15 30 ML Metoprolol Tartrate 50 mg BID PO 07/01/24 22:00 08/08/24 09:12 50 MG Clonidine HCl 0.2 mg BID PO 07/03/24 22:00 08/08/24 09:13 0.2 MG Hydralazine HCl 100 mg Q8HR PO 07/07/24 22:00 08/08/24 16:44 100 MG Heparin Sodium (Porcine) 4,000 units JACKY PRN XX 07/09/24 11:00 08/05/24 11:26 4,000 UNITS Amlodipine Besylate 10 mg DAILY PO 07/11/24 10:00 08/08/24 09:13 10 MG Acetylcysteine 200 mg Q6HR NEB 07/14/24 12:00 08/08/24 17:44 200 MG Albuterol 2.5 mg Q6HR NEB 07/14/24 12:00 08/08/24 17:44 2.5 MG Ipratropium [place] 0.5 mg Q6HR NEB 07/14/24 12:00 08/08/24 17:44 0.5 MG Bumetanide 2 mg BIDD PO 07/19/24 15:00 08/08/24 05:31 2 MG Acetaminophen 650 mg Q6HP PRN PO 07/22/24 19:53 08/03/24 06:21 650 MG Fentanyl 25 mcg Q72H TD 07/27/24 10:00 08/08/24 09:11 25 MCG Omeprazole 20 mg DAILY GT 07/28/24 10:00 08/08/24 13:06 20 MG Calcium Acetate 1,334 mg TIDWM PEG 07/28/24 12:33 08/08/24 13:06 1,334 MG Enteral Nutritional Formula 1,000 ml 60ML/HR GT 07/28/24 11:45 08/06/24 18:18 1,000 ML Lorazepam 0.25 mg Q12HP PRN PO 07/28/24 17:15 08/05/24 22:07 0.25 MG Heparin Sodium (Porcine) 5,000 units Q12HR SC 07/28/24 22:00 08/08/24 09:12 5,000 UNITS Ceftazidime/ Dextrose 1 gm/ Sodium Chloride 50 ml @ 16.667 mls/ hr HS IV 08/07/24 22:00 08/08/24 00:59 16.667 MLS/HR Norepinephrine Bitartrate 250 ml @ 3.75 mls/hr Q24H IV 08/08/24 18:45 Examination Examination General Appearance: Nonverbal, on trach collar, 6 L through nasal cannula continuous Respiratory: Clear to auscultation, Normal air movement, on 6 L through Cardiovascular: Regular rate, Normal S1, Normal S2 Abdominal: Normal bowel sounds, peg tube present, suprapubic catheter present Extremities: Right BKA, 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 Complete 07/18/24 22:30 Urine - Suprapubic Aspirate Urine Culture - Final Complete 06/11/24 16:06 Bronchial Washings Gram Stain - Final Complete 06/11/24 16:06 Respiratory Culture - Final Acinetobacter baumannii Pseudomonas aeruginosa Complete 05/30/24 11:45 Pleural Fluid Gram Stain - Final Complete 05/30/24 11:45 Pleural Fluid Body Fluid Culture - Final Complete Labs and/or images reviewed: Labs reviewed by me, Image(s) reviewed by me Problem List/Assessment/Plan Problem List/Assessment/Plan Assessment/plan Neurology #Sedation -off sedation # acute metabolic encephalopathy likely due to sepsis -resolving, but complete neurological examination cant be accessed as pt is non verbal # history of seizures -History of seizure during last admission (1 month back) used Keppra for 1 week Discontinued Keppra, on 06/16 EEG shows abnormal EEG recording consistent with the presence of a diffuse nonspecific encephalopathic state # history of stroke Old infarct in the right frontal lobe and right parietal occipital lobe, seen on imaging Cardiovascular # shock likely septic -resolved #Hypertension -amlodipine 10 mg daily, clonidine 0.2 mg p.o. b.i.d., hydralazine 100 mg p.o. Q HR, metoprolol 50 mg p.o. b.i.d. Respiratory # acute hypoxic respiratory failure due to pneumonia s/p tracheostomy 06/13 -albuterol p.r.n., ipratropium neb -on T collar , 8l o2 through nasal canula # aspiration pneumonia, Gram-positive/Gram-negative -changed to IV ceftazidime # pneumomediastinum and pneumopericardium -seen on imaging # left lower lobe atelectasis -seen on imaging #Recurrent mucus plugging -Mucomyst -repeat CXR -s/p multiple bronchoscopy GI # hepatitis-C positive # status post PEG tube 06/15 Nephrology # FROYLAN due to hemodynamic mediated likely due to sepsis, requiring dialysis - Homer catheter placed on left internal jugular, on 06/26, removed on 07/04 - tunneled catheter placed to the right upper chest 07/04 -received dialysis as per schedule -on Bumex tablet 2 mg p.o. b.i.d. # hyponatremia, improved monitor # hyperkalemia -monitor # hypomagnesemia -monitor Urology # UTI -currently on IV cefepime # s/p suprapubic catheter Musculoskeletal/dermatological # status post above-knee amputation - due to peripheral arterial disease # decubitus ulcer -wound care Endocrine # secondary hyperparathyroidism -likely due to FROYLAN/CKD # hypocalcemia due to FROYLAN/CKD -on oral calcium, discontinued # hypoglycemia likely due to sepsis -resolved Hematology/oncology # severe anemia requiring transfusion, anemia of chronic disease, macrocytic anemia -monitor CBC # thrombocytopenia -monitor CBC Infectious disease # septic shock -resolved -currently on ceftazidime Psychiatry #Anxiety -Ativan oral PRN LINES/DRAINS/ACCESS: ETT, intubated on 05/28/2024 and tracheostomy performed on 06/11, PEG tube placed on 06/15 IV access Left internal jugular CVC, placed on 06/26 and removed on 07/04 Right IJ hemodialysis catheter placed 07/04 Left upper PICC line Suprapubic catheter, changed on 07/14/2024 Dripps: Off Fentanyl patch 25 mg Off pressor Nutrition Enteral through PEG tube , nepro with carb steady DVT prophylaxis Started on heparin 5000 subc q.12h Peptic ulcer disease prophylaxis Omeprazole 20 mg GT daily Bowel regimen Lactulose 30 mg q.12h Code status discussed with the family for greater than 21 minutes, full code Case discussion with Dr. vyas marine services technician consulted for subacute care facility Plan discussed with: Other My Orders My Orders Orders - DANGELO COTO RESIDENT Procedure Category Date Status Time Abg W/ Co-Ox RT 08/07/24 Logged 20:30 Chest Portable XY 08/08/24 Resulted 09:33 Norepinephrine 8 PHA 08/08/24 In Process Mg/250ml Kit 18:45 Lactic Acid W/ Reflex LAB 08/08/24 In Process Order 18:39 Troponin-I Hs LAB 08/08/24 In Process 18:39 Troponin-I Hs LAB 08/08/24 Logged 19:39 Troponin-I Hs LAB 08/08/24 Logged 21:39 Comprehensive LAB 08/08/24 In Process Metabolic Panel 18:39 Chest Portable XY 08/08/24 Resulted 18:43 Venous Blood Gas RT 08/08/24 Logged 18:45 Abg W/ Co-Ox RT 08/08/24 Logged 18:46 Ammonia LAB 08/08/24 In Process 18:46 Transfer Orders XFER 08/08/24 Transmitted 18:46 Venous Blood Gas RT 08/08/24 Logged 19:01 Magnesium LAB 08/08/24 In Process 19:04 Ventilator Orders RT 08/08/24 Transmitted 19:06 *Consult CONS 08/08/24 Transmitted / 19:14 Dietary Evaluation Review Comments: 1) If GI is assessible consider Jevity 1.2 @ 60 ml/hr x24 hrs goal rate as tolerated 2) If pt remains NPO >7 days consider TPN to meet at least 75% of estimated needs 3) Advance pt diet when medically feasible to a Cardiac/Renal Specific K2,2gmNA,low phos,60g Pro diet modified per VIDEOGAME DESIGNER recommendations 4) Continue current plan of care Expected Outcomes/Goals: 1) Pt to receive adequate nutrition support 2) Pt diet to advance CC Plasma Assessment Blood Product Administration S: [id number] DANGELO COTO RESIDENT Aug 08, 2024 19:39
[2024-08-08 19:46] LABS: Alanine Aminotransferase 233 U/L (7-40); Alkaline Phosphatase 339 U/L (46-116); Aspartate Aminotransferase 286 U/L (13-40); Bilirubin, Total < 0.2 mg/dL (0.2-1.0); Blood Urea Nitrogen 60 mg/dL (9-23); Calcium 10.9 mg/dL (8.7-10.4); Carbon Dioxide 37 mmol/L (20-31); Glucose 151 mg/dL (74-106)
--- NOTE | 2024-08-08 19:58 | RESUS ---
CODE ASSIST ASSESSSMENT Initial Information Code Assist Date: Aug 08, 2024 Code Assist Time: 18:31 Location of Arrest: [facility] Room # [address] Evangelista Time Notified: 18:31 (at bedside) Situation Staff concerned/worried, speci: SaO2 <90, Non-responsive Situation comment: agonal breathing ,SPO2 80'S, clammy dusky skin, Background Background: see emr and notes Assessment Blood Pressure Systolic: 79 Blood Pressure Diastolic: 45 Respiratory Rate: 24 O2 Sat by Pulse Oximetry: 80 Bedside Blood Glucose: 116 Assessment comment: BP at 1900 108/58 Recommendations/Interventions Procedures: Accu check, ABG, CXR Portable, CMP, CBC, Cardiac Monitoring, Inititate ACLS Protocol, Suctioned, O2 Mask/NC (over trach then placed on vent) Other Interventions placed on vent, Dr Kinney notified and plan for bedside bronch, gave 1 e pinephrine IV push given per Dr Evangelista at 1839 hr 84, increased to 150's sbp increased to 210. 1 HCO3 IV push given per Dr Evangelista at 1844. levophed ordered and started at 1848. per Dr colby to use HD cath. Outcome Outcome: Transfer to ICU Follow up Report Follow up Report transfer to icu [address] Team Members Team Members Dr Evangelista, Dr Smith, Dr Moore, Giovanny RN-Primary nurse, Chris instrument repair technician, Seda TOSCANO ICU charge, Penelope RT, Eben RT, Alicia RN, Margarita RN CARDIOVASCULAR ICU resource Chris Morataya Aug 08, 2024 19:58
[2024-08-08] MEDS: fentaNYL CITRATE 100 MCG/2 ML VL IV ONE (20:15)
[2024-08-08] MEDS ORDERED: fentaNYL Drip 2500mCg/250mlNS 250 ML IV SCH (20:30)
[2024-08-08] MEDS: fentaNYL Drip 2500mCg/250mlNS 250 ML IV ONE (20:35)
--- NOTE | 2024-08-08 20:55 | DVHNC2 ---
Procedure - Bronchoscopy procedure note: Indications: Desaturation, increased ET tube secretions Medicines: See GUEST REQUEST RUNNER notes. Complications: None Procedure: Patient medications and allergies reviewed. The risks and benefits of the procedure and the sedation options and risk were discussed with the patient's healthcare proxy. All questions were answered and informed consent was obtained. Patient identification and proposed procedure were verified prior to the procedure by the physician, and a nurse, and the respiratory therapist in ICU room. The heart rate, respiratory rate, oxygen saturations, blood pressure, adequacy of pulmonary ventilation, and response to care were monitored throughout the procedure. The physical status of the patient was reassessed after the procedure. After obtaining informed consent, the bronchoscope was introduced through the endotracheal tube and advanced into the trachea bronchial tree of both lungs. The procedure was accomplished without difficulty. The patient tolerated the procedure well. Findings: The trachea is in normal caliber. The chacho is sharp. The tracheobronchial tree of the right lung was examined to at least the first subsegmental level. The bronchial mucosa and anatomy in the right lung are normal. There are no endobronchial lesions. There was copious whitish secretions from right main stem bronchus onward throughout R1-R10. These secretions were removed. Right middle lobe (RML) Bronchoalveolar lavage (BAL) obtained. RML BAL sent for gram stain and culture. The left upper lobe, lingula, and left lower lobe were examined to at least the first subsegmental level. Bronchial mucosa and anatomy in the left upper lobe and lingula are normal. There were no endobronchial lesions. There was copious whitish secretions from left main stem bronchus onward throughout L1-L10. Mucous plugging removed from L1-L10. There was no active bleeding at the completion of the procedure. Estimated blood loss: Less than 5 mL. Impression: Left upper/lower lobe atelectasis due to mucous plugging Mucous plugging from L1-L10 and R1-R10 RML BAL performed Recommendation: Follow-up RML BAL results. Procedure codes: 72623, bronchoscopy, rigid and flexible, including fluoroscopic guidance, one performed; with bronchial endobronchial broncho-alveolar lavage, single or multiple sites ELINAE ALTAMIRANO MD Aug 08, 2024 20:54
--- NOTE | 2024-08-08 21:05 | DVHNC2 ---
Procedure - ULTRASOUND-GUIDED LEFT INTERNAL JUGULAR CENTRAL VENOUS CANNULATION CPT Codes: 49260 (ultrasound guidance) 56837 (insertion of non-tunneled centrally inserted central venous catheter) 60337 (CXR interpretation) Time out time: 2034 Patient medications and allergies reviewed. The risks and benefits of the procedure and the sedation options and risk were discussed with the patient's healthcare proxy. All questions were answered and informed consent was obtained. Patient identification and proposed procedure were verified prior to the procedure by the physician, and a nurse in the patient's room. The heart rate, respiratory rate, oxygen saturations, blood pressure, adequacy of pulmonary ventilation, and response to care were monitored throughout the procedure. The physical status of the patient was reassessed after the procedure. DATE: 10/27/16 PHYSICIAN: Eliane Kinney Cricket Coach: PGY [address] DR Edwige Issa PREOPERATIVE DIAGNOSIS: Shock POSTOPERATIVE DIAGNOSIS: Shock PROCEDURE PERFORMED: Limited Ultrasound-guided LEFT internal jugular central line placement. ANESTHESIA: 2 mL of 1% lidocaine plain. ESTIMATED BLOOD LOSS: less than 5 mL. SPECIMENS: None. COMPLICATIONS: None. INDICATIONS FOR PROCEDURE: The patient is in need of large bore IV access for administration of fluids, including blood products and vasoactive drugs, possible transvenous cardiac pacing and CVP monitoring for hemodynamic instability. DESCRIPTION OF PROCEDURE IN DETAIL: The patient was lying in the Trendelenburg position with head turned 30 degrees away from the insertion site. The skin was thoroughly sponged with chlorhexidine and allowed to dry. All persons involved were shielded with hair nets, face masks and sterile gowns. With sterile-gloved hands the LEFT neck area was draped with the large disposable sterile field provided in the pre-manufactured kit. The skin and subcutaneous tissues superficial to the LEFT internal jugular vein were anesthetized with 2 mL of 1% lidocaine. The LEFT internal jugular vein was identified on ultrasound from the angle of the mandible down into the supraclavicular fossa using the linear ultrasound probe in the transverse orientation. The carotid artery was identified and avoided utilizing color-flow. The internal jugular vein was then placed in the center of the ultrasound field and compressed for patency. A movement artifact was identified as the needle was advanced through the skin and advanced toward the vessel. A real time hyperechoic signal revealed visualization of vascular needle entry into the lumen as blood was noted to flashback in the syringe. The needle was then held in place while the guide wire was advanced. The needle was then removed. Direct visualization of guide wire location within the vein was no linda on ultrasound indicating proper placement and was document in the electronic medical record chart. A skin dilator was advanced over the guidewire and removed, and the triple-lumen catheter was then advanced over the guide wire into proper position. The guide wire was removed and discarded. The ports were aspirated which showed good blood return and then carefully flushed with normal saline. The catheter was stabilized and sutured to the skin with 2-0 silk at 4 anchor points. A sterile bio-patch and dressing was placed over the catheter, including the insertion site. The patient tolerated the procedure well. A chest x-ray was ordered for position confirmation. I reviewed the image immediately after it was taken at bedside. Post-procedure chest x-ray demonstrates the central line in the superior vena and no evidence of any pneumothorax. An image recording of the procedure accompanies the chart. ELIANE KINNEY MD Aug 08, 2024 21:05
--- NOTE | 2024-08-08 21:24 | DVH ---
CHEST RADIOGRAPH Indication: CENTRAL LINE INSERTION Technique: Single frontal view of the chest was obtained Comparison: XY CHEST PORTABLE on DOS: 08/08/24, XY CHEST PORTABLE on DOS: 08/08/24, XY CHEST XRAY 1 VIE W on DOS: 08/06/24 Findings/ IMPRESSION: Tracheostomy tube projecting 5 cm superior to the chacho. Right IJ HD catheter projects terminating n ear the cavoatrial junction. Left basilar opacification concerning for small pleural effusion with zimmer perimposed infection not excluded.
[2024-08-08 21:40] LABS: Base Excess 5.1 mmol/L (-2.0-3.0)
[2024-08-08] MEDS: fentaNYL Drip 2500mCg/250mlNS 250 ML IV SCH (22:28)
--- NOTE | 2024-08-08 23:33 | DVHPN2 ---
Progress Note - Dictate Date Seen: Aug 08, 2024 Has the PT tested + for MRSA If YES, has PT been informed?: Yes Medical Necessity Reason Pt with a Central, PICC or Fol: Yes The following are medically ne: Central Line, Rubio Catheter Reason for rubio catheter: Strict I&O Subjective Patient seen and examined at bedside. On mechanical ventilator. S/p trach Overnight events reviewed. vital signs Vital Sign Date Time Temp Pulse Resp B/P (MAP) Pulse Ox O2 Delivery O2 Flow Rate FiO2 08/08/24 22:53 106 91/57 08/08/24 22:01 28 97 90 08/08/24 19:58 08/08/24 12:33 Trach Collar 8 Cool Aerosol Total Intake and Output 08/07/24 08/07/24 08/08/24 15:00 23:00 07:00 Intake Total 0 ml 50 ml Output Total 120 ml 150 ml Balance -120 ml -100 ml medications Current Medications Medications Dose Ordered Sig/[place] Route Start Time Stop Time Status Last Admin Dose Admin Enoxaparin Sodium 40 mg DAILY SC 06/10/24 10:00 UNV Enoxaparin Sodium 40 mg DAILY SC 06/17/24 10:00 UNV Epoetin Calin-epbx 10,000 unit TUTHSA SC 06/17/24 12:00 Hold 06/28/24 08:25 10,000 UNIT Lactulose 30 ml [id number] PRN PEG 07/01/24 10:15 07/27/24 09:15 30 ML Metoprolol Tartrate 50 mg BID PO 07/01/24 22:00 08/08/24 22:53 50 MG Clonidine HCl 0.2 mg BID PO 07/03/24 22:00 08/08/24 09:13 0.2 MG Hydralazine HCl 100 mg Q8HR PO 07/07/24 22:00 08/08/24 16:44 100 MG Heparin Sodium (Porcine) 4,000 units JACKY PRN XX 07/09/24 11:00 08/05/24 11:26 4,000 UNITS Amlodipine Besylate 10 mg DAILY PO 07/11/24 10:00 08/08/24 09:13 10 MG Acetylcysteine 200 mg Q6HR NEB 07/14/24 12:00 08/08/24 17:44 200 MG Albuterol 2.5 mg Q6HR NEB 07/14/24 12:00 08/08/24 17:44 2.5 MG Ipratropium [place] 0.5 mg Q6HR NEB 07/14/24 12:00 08/08/24 17:44 0.5 MG Bumetanide 2 mg BIDD PO 07/19/24 15:00 08/08/24 05:31 2 MG Acetaminophen 650 mg Q6HP PRN PO 07/22/24 19:53 08/03/24 06:21 650 MG Fentanyl 25 mcg Q72H TD 07/27/24 10:00 08/08/24 09:11 25 MCG Omeprazole 20 mg DAILY GT 07/28/24 10:00 08/08/24 13:06 20 MG Calcium Acetate 1,334 mg TIDWM PEG 07/28/24 12:33 08/08/24 13:06 1,334 MG Enteral Nutritional Formula 1,000 ml 60ML/HR GT 07/28/24 11:45 08/06/24 18:18 1,000 ML Lorazepam 0.25 mg Q12HP PRN PO 07/28/24 17:15 08/05/24 22:07 0.25 MG Heparin Sodium (Porcine) 5,000 units Q12HR SC 07/28/24 22:00 08/08/24 22:54 5,000 UNITS Ceftazidime/ Dextrose 1 gm/ Sodium Chloride 50 ml @ 16.667 mls/ hr HS IV 08/07/24 22:00 08/08/24 22:57 16.667 MLS/HR Norepinephrine Bitartrate 250 ml @ 3.75 mls/hr Q24H IV 08/08/24 18:45 08/08/24 18:39 3.75 MLS/HR Dexmedetomidine HCl 400 mcg/ Dextrose 100 ml @ 2.955 mls/ hr Q24H IV 08/08/24 20:15 08/08/24 20:57 2.955 MLS/HR Fentanyl Citrate 250 ml @ 2.5 mls/hr Q24H IV 08/08/24 21:30 08/08/24 22:28 2.5 MLS/HR objective Gen.: Patient lying in bed in medical ICU. On mechanical ventilator. S/p trach Head: Normocephalic, atraumatic. Eyes: PERRLA. Ears: Normal external anatomy. Neck: Trach in place. Chest: Transmitted breath sounds bilaterally. Decreased air entry bilaterally. No wheezing. Bibasilar crackles. Cardiovascular: Positive S1, positive S2. Regular rate and rhythm. Abdomen: Positive bowel sounds in all 4 quadrants. Soft, nontender, nondistended. : Rubio in place. Normal external genitalia. Rectal: Deferred. Skin: Warm, dry. Intact. Extremities: 2+ radial pulses bilaterally. No lower extremity edema. Neuro: Off sedation, on Fentanyl/Precedex laboratory and microbiology Laboratory Tests 08/08/24 18:48 Test 08/08/24 18:48 Range/Units Serum Glucose 151 H 74-106 mg/dL Assessment/Plan Impression: Acute hypoxic respiratory failure On mechanical ventilator Multifocal pneumonia Atelectasis Congestive heart failure Tracheostomy Events: Patient was placed on vent via trach Increased trach secretions Patient underwent therapeutic bronchoscopy today with RML BAL. Cleared mucous plugging from L1-L10 and R1-R10 S/p left IJ central line placement Please see separate procedure notes for details. Fentanyl for analgesia Precedex drip for agitation On Levophed for hemodynamic support Titrate to keep mean arterial pressure greater than 65 mmHg S/p trach S/p PEG. Trach care Pulmonary toileting Continue bronchodilators/Mucomyst Continue antibiotics Follow up cultures Wound care. Tube feeds for nutritional support via PEG. HOB elevation Aspiration precautions. HD per Nephrology. Monitor renal function Monitor electrolytes. Supplement as necessary. Awaiting LTAC placement. S/p bronchoscopy with BAL on 07/08/24. See procedure note for full details. Rest of plan as noted below Plan: S/p trach, trach collar - currently on vent, FiO2 100% Fentanyl for analgesia Precedex drip for agitation On Levophed for hemodynamic support Titrate to keep mean arterial pressure greater than 65 mmHg Antibiotics Bronchodilators Positive hepatitis C. IV fluid hydration Maintain euvolemia Monitor renal function Monitor electrolytes. Supplement as necessary. Monitor ins and outs. Tube feeds for nutritional support. GI prophylaxis. DVT prophylaxis. Prognosis: Poor given patient's multiple co-morbidities. Condition: Critical Rest of plan per hospitalist and other consultants. A total of 35 minutes of critical care time was spent reviewing the patient record, examining the patient, making a diagnostic and therapeutic plan, discussing this plan with the medical personnel, following up on diagnostic studies and following the patient for clinical stability excluding any and all procedures. At least 50% of this time was spent in direct, [id number] contact. Thank you Anthony Ugalde, JES, for allowing me to participate in this patient's care. Further recommendations will depend on the patient's clinical course. Please do not hesitate to contact me if you have any questions or concerns. This medical document was created using an electronic medical record system with [employer] dictation system. Although these documentations are being carefully reviewed, there may still be some phonetic and typographical changes. The errors are purely typographical, due to imperfection on the software program, and do not reflect any compromise in the patient's medical care. Dietary Evaluation Review Comments: 1) If GI is assessible consider Jevity 1.2 @ 60 ml/hr x24 hrs goal rate as tolerated 2) If pt remains NPO >7 days consider TPN to meet at least 75% of estimated needs 3) Advance pt diet when medically feasible to a Cardiac/Renal Specific K2,2gmNA,low phos,60g Pro diet modified per UNDERWRITING CONSULTANT recommendations 4) Continue current plan of care Expected Outcomes/Goals: 1) Pt to receive adequate nutrition support 2) Pt diet to advance Plan discussed with: Other (DORCAS Goldstein) Critical Care Time(min): 35 CC Plasma Assessment Blood Product Administration S: [id number] ELIANE ALTAMIRANO MD Aug 08, 2024 23:33
[2024-08-09] VITALS (105 sets, daily range): BP systolic 67–162; BP diastolic 43–85; PULSE 72–132; RESP 15–25; TEMP 98.1–100.3; O2SAT 84–100
[2024-08-09 05:15] LABS: Basophils # (auto) 0 10 ^3/uL (0-0.2); Basophils % (auto) 0.6 % (0.0-2.0); Eosinophils # (auto) 0 10 ^3/uL (0-0.8); Eosinophils % (auto) 0.1 % (0.0-7.0); Hematocrit 23.5 % (41.0-53.0); Hemoglobin 7.6 g/dL (13.5-17.5); Lymphocytes # (auto) 1.4 10 ^3/uL (0.4-5.4); Lymphocytes % (auto) 16.9 % (10.0-50.0); Mean Corpuscular Hemoglobin 31.3 pg (28.0-32.0); Mean Corpuscular Hgb Conc. 32.3 g/dL (32.0-36.0); Mean Corpuscular Volume 97.1 fL (80.0-100.0); Monocytes # (auto) 0.8 10 ^3/uL (0-1.3); Monocytes % (auto) 9.7 % (0.0-12.0); Neutrophils # (auto) 6.2 10 ^3/uL (1.6-8.6); Neutrophils % (auto) 72.7 % (37.0-80.0); Platelet Count (auto) 269 10^3/uL (140-450); Red Blood Cells 2.42 10^6/uL (4.5-5.90); Red Cell Distribution Width 17.9 % (11.8-14.3); White Blood Cell 8.5 10^3/uL (4.4-10.8)
[2024-08-09 05:17] LABS: Hematocrit 23.4 % (41.0-53.0); Hemoglobin 7.6 g/dL (13.5-17.5)
[2024-08-09 05:44] LABS: Albumin 3.3 g/dL (3.2-4.8); Anion Gap 10 (5-15); Carbon Dioxide 29 mmol/L (20-31); Chloride 102 mmol/L (98-107); Potassium 4.1 mmol/L (3.5-5.1); Sodium 141 mmol/L (136-145)
[2024-08-09 05:45] LABS: Total Protein 7.2 g/dL (5.7-8.2)
[2024-08-09 05:46] LABS: Alanine Aminotransferase 176 U/L (7-40); Alkaline Phosphatase 276 U/L (46-116); Aspartate Aminotransferase 187 U/L (13-40); Bilirubin, Total 0.2 mg/dL (0.2-1.0); Blood Urea Nitrogen 66 mg/dL (9-23); Calcium 10.6 mg/dL (8.7-10.4); Glucose 115 mg/dL (74-106)
[2024-08-09] MEDS: SODIUM CHL 0.9% 1000 ML BAG XX ONE (07:00)
[2024-08-09 08:55] LABS: Base Excess 5.8 mmol/L (-2.0-3.0)
[2024-08-09 10:49] LABS: Hemoglobin 7.7 g/dL (13.5-17.5)
--- NOTE | 2024-08-09 10:49 | DVHPN2 ---
Progress Note Date Seen: Aug 09, 2024 Has the PT tested + for MRSA If YES, has PT been informed?: Yes Medical Necessity Reason Pt with a Central, PICC or Fol: Yes The following are medically ne: Central Line, Rubio Catheter Reason for rubio catheter: Strict I&O Subjective Review of Systems: RESPIRATORY:Abnormal Other Systems: Patient seen and examined by myself today in follow-up status post cardiac arrest last night the patient back on the ventilator Patient examined hemodialysis, blood pressure stable Objective vital signs Vital Sign Date Time Temp Pulse Resp B/P (MAP) Pulse Ox O2 Delivery O2 Flow Rate FiO2 08/09/24 08:40 93 20 109/64 (79) 100 40 08/09/24 06:00 Mechanical Ventilator+ 08/09/24 04:00 98.1 98.1 08/08/24 12:33 8 Total Intake and Output 08/08/24 08/08/24 08/09/24 15:00 23:00 07:00 Intake Total 118.638 ml 263.532 ml Output Total 50 ml 120 ml Balance 68.638 ml 143.532 ml medications Current Medications Medications Dose Ordered Sig/[place] Route Start Time Stop Time Status Last Admin Dose Admin Enoxaparin Sodium 40 mg DAILY SC 06/10/24 10:00 UNV Enoxaparin Sodium 40 mg DAILY SC 06/17/24 10:00 UNV Epoetin Calin-epbx 10,000 unit TUTHSA SC 06/17/24 12:00 Hold 06/28/24 08:25 10,000 UNIT Lactulose 30 ml [id number] PRN PEG 07/01/24 10:15 07/27/24 09:15 30 ML Metoprolol Tartrate 50 mg BID PO 07/01/24 22:00 08/08/24 22:53 50 MG Clonidine HCl 0.2 mg BID PO 07/03/24 22:00 08/08/24 09:13 0.2 MG Hydralazine HCl 100 mg Q8HR PO 07/07/24 22:00 08/08/24 16:44 100 MG Heparin Sodium (Porcine) 4,000 units JACKY PRN XX 07/09/24 11:00 08/05/24 11:26 4,000 UNITS Amlodipine Besylate 10 mg DAILY PO 07/11/24 10:00 08/08/24 09:13 10 MG Acetylcysteine 200 mg Q6HR NEB 07/14/24 12:00 08/09/24 06:44 200 MG Albuterol 2.5 mg Q6HR NEB 07/14/24 12:00 08/09/24 06:44 2.5 MG Ipratropium [place] 0.5 mg Q6HR NEB 07/14/24 12:00 08/09/24 06:44 0.5 MG Bumetanide 2 mg BIDD PO 07/19/24 15:00 08/08/24 05:31 2 MG Acetaminophen 650 mg Q6HP PRN PO 07/22/24 19:53 08/03/24 06:21 650 MG Fentanyl 25 mcg Q72H TD 07/27/24 10:00 08/08/24 09:11 25 MCG Omeprazole 20 mg DAILY GT 07/28/24 10:00 08/08/24 13:06 20 MG Calcium Acetate 1,334 mg TIDWM PEG 07/28/24 12:33 08/09/24 09:20 1,334 MG Enteral Nutritional Formula 1,000 ml 60ML/HR GT 07/28/24 11:45 08/06/24 18:18 1,000 ML Lorazepam 0.25 mg Q12HP PRN PO 07/28/24 17:15 08/05/24 22:07 0.25 MG Heparin Sodium (Porcine) 5,000 units Q12HR SC 07/28/24 22:00 08/09/24 09:21 5,000 UNITS Ceftazidime/ Dextrose 1 gm/ Sodium Chloride 50 ml @ 16.667 mls/ hr HS IV 08/07/24 22:00 08/08/24 22:57 16.667 MLS/HR Norepinephrine Bitartrate 250 ml @ 3.75 mls/hr Q24H IV 08/08/24 18:45 08/09/24 06:00 22.5 MLS/HR Dexmedetomidine HCl 400 mcg/ Dextrose 100 ml @ 2.955 mls/ hr Q24H IV 08/08/24 20:15 08/08/24 20:57 2.955 MLS/HR Fentanyl Citrate 250 ml @ 2.5 mls/hr Q24H IV 08/08/24 21:30 08/08/24 22:28 2.5 MLS/HR Examination: LUNGS:Normal, CVS:Normal, MSK:Normal laboratory and microbiology Laboratory Tests 08/09/24 04:46 Test 08/09/24 04:46 Range/Units Serum Glucose 115 H 74-106 mg/dL Microbiology Date/Time Source Procedure Growth Status 07/24/24 18:34 Trachea Gram Stain - Final Complete 07/24/24 18:34 Respiratory Culture - Final Pseudomonas aeruginosa Complete 07/24/24 15:15 Blood Blood Culture - Final NO GROWTH AFTER 5 DAYS OF INCUBATION. Complete 07/18/24 22:30 Urine - Suprapubic Aspirate Urine Culture - Final Complete 06/11/24 16:06 Bronchial Washings Gram Stain - Final Complete 06/11/24 16:06 Respiratory Culture - Final Acinetobacter baumannii Pseudomonas aeruginosa Complete 05/30/24 11:45 Pleural Fluid Gram Stain - Final Complete 05/30/24 11:45 Pleural Fluid Body Fluid Culture - Final Complete Problem List/Assessment/Plan Problem List/Assessment/Plan Acute kidney injury superimposed on chronic kidney disease stage 4, oliguric requiring initiation of hemodialysis Acute respiratory failure, patient is trached on the ventilator Status post cardiac arrest Anemia suspected due to low blood loss s/p PRBC Septic shock, resolved Hypernatremia resolved Hypomagnesemia Peripheral arterial disease Right above knee amputation Metabolic acidosis Chronic urinary retention MRSA bacteremia Recommendations Continue with UF 1-2 L as tolerated Epogen 90761 IV post hemodialysis Rubio catheter Strict I&Os Renal diet IV pressors to maintain systolic blood pressure more than 100 during dialysis PEG feeding with nepro IV antibiotic per ID consult We will continue to follow Plan discussed with: Patient My Orders My Orders Orders - DAVID TORRES MD Procedure Category Date Status Time Hemodialysis Orders ORDERS 08/09/24 Transmitted 07:00 Dialysis Nursing SUZAN 08/09/24 In Process Message 07:00 Document Fluid Input SUZAN 08/09/24 In Process And Outpu 07:00 Epoetin Calin-Epbx PHA 08/09/24 In Process (Retacrit) 21:00 Dietary Evaluation Review Comments: 1) If GI is assessible consider Jevity 1.2 @ 60 ml/hr x24 hrs goal rate as tolerated 2) If pt remains NPO >7 days consider TPN to meet at least 75% of estimated needs 3) Advance pt diet when medically feasible to a Cardiac/Renal Specific K2,2gmNA,low phos,60g Pro diet modified per SUPERVISOR BRAIDING recommendations 4) Continue current plan of care Expected Outcomes/Goals: 1) Pt to receive adequate nutrition support 2) Pt diet to advance CC Plasma Assessment Blood Product Administration S: [id number] DAVID TORRES MD Aug 09, 2024 10:49
[2024-08-09 10:51] LABS: Hematocrit 23.1 % (41.0-53.0)
[2024-08-09] MEDS: ALBUMIN 25% 100 ML IV ONE ×2 (11:58)
[2024-08-09] MEDS: PHENYLEPHRINE IV 250 ML IV SCH (15:00)
[2024-08-09] MEDS: EPOETIN ALFA-EPBX 10,000 UNIT/1ML VIAL SC ONE (21:08)
--- NOTE | 2024-08-09 22:57 | DVHPN2 ---
Progress Note - Dictate Date Seen: Aug 09, 2024 Has the PT tested + for MRSA If YES, has PT been informed?: Yes Medical Necessity Reason Pt with a Central, PICC or Fol: Yes The following are medically ne: Central Line, Rubio Catheter Reason for rubio catheter: Strict I&O Subjective Patient seen and examined at bedside. On mechanical ventilator. S/p trach Overnight events reviewed. vital signs Vital Sign Date Time Temp Pulse Resp B/P (MAP) Pulse Ox O2 Delivery O2 Flow Rate FiO2 08/09/24 22:45 78 20 127/79 (95) 99 08/09/24 22:20 35 08/09/24 22:00 Mechanical Ventilator+ 08/09/24 20:00 100.2 100.2 08/08/24 12:33 8 Total Intake and Output 08/08/24 08/08/24 08/09/24 15:00 23:00 07:00 Intake Total 118.638 ml 292.965 ml Output Total 50 ml 120 ml Balance 68.638 ml 172.965 ml medications Current Medications Medications Dose Ordered Sig/[place] Route Start Time Stop Time Status Last Admin Dose Admin Enoxaparin Sodium 40 mg DAILY SC 06/10/24 10:00 UNV Enoxaparin Sodium 40 mg DAILY SC 06/17/24 10:00 UNV Epoetin Calin-epbx 10,000 unit TUTHSA SC 06/17/24 12:00 Hold 06/28/24 08:25 10,000 UNIT Lactulose 30 ml [id number] PRN PEG 07/01/24 10:15 07/27/24 09:15 30 ML Metoprolol Tartrate 50 mg BID PO 07/01/24 22:00 08/09/24 21:31 50 MG Clonidine HCl 0.2 mg BID PO 07/03/24 22:00 08/08/24 09:13 0.2 MG Hydralazine HCl 100 mg Q8HR PO 07/07/24 22:00 08/08/24 16:44 100 MG Heparin Sodium (Porcine) 4,000 units JACKY PRN XX 07/09/24 11:00 08/05/24 11:26 4,000 UNITS Amlodipine Besylate 10 mg DAILY PO 07/11/24 10:00 08/08/24 09:13 10 MG Acetylcysteine 200 mg Q6HR NEB 07/14/24 12:00 08/09/24 18:39 200 MG Albuterol 2.5 mg Q6HR NEB 07/14/24 12:00 08/09/24 18:38 2.5 MG Ipratropium [place] 0.5 mg Q6HR NEB 07/14/24 12:00 08/09/24 18:38 0.5 MG Bumetanide 2 mg BIDD PO 07/19/24 15:00 08/09/24 17:31 2 MG Acetaminophen 650 mg Q6HP PRN PO 07/22/24 19:53 08/03/24 06:21 650 MG Fentanyl 25 mcg Q72H TD 07/27/24 10:00 08/08/24 09:11 25 MCG Omeprazole 20 mg DAILY GT 07/28/24 10:00 08/08/24 13:06 20 MG Calcium Acetate 1,334 mg TIDWM PEG 07/28/24 12:33 08/09/24 17:32 1,334 MG Enteral Nutritional Formula 1,000 ml 60ML/HR GT 07/28/24 11:45 08/06/24 18:18 1,000 ML Lorazepam 0.25 mg Q12HP PRN PO 07/28/24 17:15 08/05/24 22:07 0.25 MG Heparin Sodium (Porcine) 5,000 units Q12HR SC 07/28/24 22:00 08/09/24 21:32 5,000 UNITS Ceftazidime/ Dextrose 1 gm/ Sodium Chloride 50 ml @ 16.667 mls/ hr HS IV 08/07/24 22:00 08/08/24 22:57 16.667 MLS/HR Norepinephrine Bitartrate 250 ml @ 3.75 mls/hr Q24H IV 08/08/24 18:45 08/09/24 22:17 15 MLS/HR Dexmedetomidine HCl 400 mcg/ Dextrose 100 ml @ 2.955 mls/ hr Q24H IV 08/08/24 20:15 08/09/24 13:40 5.91 MLS/HR Fentanyl Citrate 250 ml @ 2.5 mls/hr Q24H IV 08/08/24 21:30 08/08/24 22:28 2.5 MLS/HR Phenylephrine HCl 250 ml @ 30 mls/hr Q8H20M IV 08/09/24 15:00 objective Gen.: Patient lying in bed in medical ICU. On mechanical ventilator. S/p trach Head: Normocephalic, atraumatic. Eyes: PERRLA. Ears: Normal external anatomy. Neck: Trach in place. Chest: Transmitted breath sounds bilaterally. Decreased air entry bilaterally. No wheezing. Bibasilar crackles. Cardiovascular: Positive S1, positive S2. Regular rate and rhythm. Abdomen: Positive bowel sounds in all 4 quadrants. Soft, nontender, nondistended. : Rubio in place. Normal external genitalia. Rectal: Deferred. Skin: Warm, dry. Intact. Extremities: 2+ radial pulses bilaterally. No lower extremity edema. Neuro: Off sedation, on Fentanyl/Precedex laboratory and microbiology Laboratory Tests 08/09/24 10:18 08/09/24 04:46 Test 08/09/24 04:46 Range/Units Serum Glucose 115 H 74-106 mg/dL Assessment/Plan Impression: Acute hypoxic respiratory failure Multifocal pneumonia Atelectasis Congestive heart failure Tracheostomy Events: On vent AC mode with RR 20, VT 450, PEEP 5, FiO2 35% S/p trach S/p PEG. Fentanyl for analgesia Precedex drip for agitation On Levophed 12 mcg/min for hemodynamic support Titrate to keep mean arterial pressure greater than 65 mmHg Thick trach secretions Patient underwent therapeutic bronchoscopy yesterday (08/08/24) with RML BAL. Cleared mucous plugging from L1-L10 and R1-R10 Trach care Pulmonary toileting Continue bronchodilators/Mucomyst Continue antibiotics Follow up cultures Wound care. Tube feeds for nutritional support via PEG. HOB elevation Aspiration precautions. HD per Nephrology. Monitor renal function Monitor electrolytes. Supplement as necessary. Awaiting LTAC placement. S/p bronchoscopy with BAL on 07/08/24. See procedure note for full details. Rest of plan as noted below Plan: S/p trach, trach collar Currently on vent, AC mode with RR 20, VT 450, PEEP 5, FiO2 35% Fentanyl for analgesia Precedex drip for agitation On Levophed for hemodynamic support Titrate to keep mean arterial pressure greater than 65 mmHg Antibiotics Bronchodilators Positive hepatitis C. IV fluid hydration Maintain euvolemia Monitor renal function Monitor electrolytes. Supplement as necessary. Monitor ins and outs. Tube feeds for nutritional support. GI prophylaxis. DVT prophylaxis. Prognosis: Poor given patient's multiple co-morbidities. Condition: Critical Rest of plan per hospitalist and other consultants. A total of 35 minutes of critical care time was spent reviewing the patient record, examining the patient, making a diagnostic and therapeutic plan, discussing this plan with the medical personnel, following up on diagnostic studies and following the patient for clinical stability excluding any and all procedures. At least 50% of this time was spent in direct, [id number] contact. Thank you Anthony Ugalde NP, for allowing me to participate in this patient's care. Further recommendations will depend on the patient's clinical course. Please do not hesitate to contact me if you have any questions or concerns. This medical document was created using an electronic medical record system with [employer] dictation system. Although these documentations are being carefully reviewed, there may still be some phonetic and typographical changes. The errors are purely typographical, due to imperfection on the software program, and do not reflect any compromise in the patient's medical care. Dietary Evaluation Review Comments: 1) If GI is assessible consider Jevity 1.2 @ 60 ml/hr x24 hrs goal rate as tolerated 2) If pt remains NPO >7 days consider TPN to meet at least 75% of estimated needs 3) Advance pt diet when medically feasible to a Cardiac/Renal Specific K2,2gmNA,low phos,60g Pro diet modified per SIGNAL INTELLIGENCE/ELECTRONIC WARFARE recommendations 4) Continue current plan of care Expected Outcomes/Goals: 1) Pt to receive adequate nutrition support 2) Pt diet to advance Plan discussed with: Other (DORCAS Esteban) Critical Care Time(min): 35 CC Plasma Assessment Blood Product Administration S: [id number] ELIANE ALTAMIRANO MD Aug 09, 2024 22:57
[2024-08-10] VITALS (100 sets, daily range): BP systolic 88–142; BP diastolic 48–84; PULSE 74–107; RESP 15–27; TEMP 97.8–99.3; O2SAT 91–100
[2024-08-10 05:47] LABS: Eosinophils # (auto) 0.1 10 ^3/uL (0-0.8); Monocytes # (auto) 0.5 10 ^3/uL (0-1.3); Nucleated Red Blood Cells % 0.1 %; Red Cell Distribution Width 18.2 % (11.8-14.3)
[2024-08-10 05:50] LABS: Basophils # (auto) 0.1 10 ^3/uL (0-0.2); Basophils % (auto) 0.9 % (0.0-2.0); Eosinophils % (auto) 1.4 % (0.0-7.0); Hematocrit 20.6 % (41.0-53.0); Lymphocytes # (auto) 1.4 10 ^3/uL (0.4-5.4); Lymphocytes % (auto) 21.7 % (10.0-50.0); Mean Corpuscular Hgb Conc. 33.9 g/dL (32.0-36.0); Mean Corpuscular Volume 97.3 fL (80.0-100.0); Monocytes % (auto) 8.5 % (0.0-12.0); Neutrophils # (auto) 4.2 10 ^3/uL (1.6-8.6); Neutrophils % (auto) 67.5 % (37.0-80.0); Platelet Count (auto) 243 10^3/uL (140-450); Red Blood Cells 2.11 10^6/uL (4.5-5.90); White Blood Cell 6.3 10^3/uL (4.4-10.8)
--- NOTE | 2024-08-10 05:51 | DVH ---
CHEST RADIOGRAPH Indication: ACUTE RESPIRATORY FAILURE Technique: Single frontal view of the chest was obtained Comparison: XY CHEST PORTABLE on DOS: 08/08/24, XY CHEST PORTABLE on DOS: 08/08/24, XY CHEST PORTABLE o n DOS: 08/08/24 IMPRESSION: Small left pneumothorax. Left IJ, endotracheal tube, and right dialysis catheter appear unchanged in satisfactory position. P ossible small left pleural effusion. Mild pulmonary vascular congestion. Patchy airspace opacity in the left hilar lung and right lower lobe appear stable. Critical Result: Pneumothorax Findings discussed with nurse Mix at 08/10/2024 08:50 AM, and acknowledged receipt and understandin g of the findings. ..
[2024-08-10 05:58] LABS: Chloride 100 mmol/L (98-107); Potassium 3.5 mmol/L (3.5-5.1); Sodium 138 mmol/L (136-145)
[2024-08-10 05:59] LABS: Anion Gap 11 (5-15); Carbon Dioxide 27 mmol/L (20-31)
[2024-08-10 06:04] LABS: Glucose 81 mg/dL (74-106)
[2024-08-10 06:05] LABS: Magnesium 2.1 mg/dL (1.6-2.6)
[2024-08-10 06:10] LABS: Blood Urea Nitrogen 30 mg/dL (9-23); Calcium 10.9 mg/dL (8.7-10.4)
[2024-08-10 07:47] LABS: Base Excess 4.5 mmol/L (-2.0-3.0)
--- NOTE | 2024-08-10 10:19 | DVHPN2 ---
Progress Note Date Seen: Aug 10, 2024 Has the PT tested + for MRSA If YES, has PT been informed?: Yes Medical Necessity Reason Pt with a Central, PICC or Fol: Yes The following are medically ne: Central Line, Ruboi Catheter Reason for rubio catheter: Strict I&O Subjective Review of Systems: RESPIRATORY:Abnormal Other Systems: Patient seen and examined by myself today in follow-up Patient is trached on the ventilator Objective vital signs Vital Sign Date Time Temp Pulse Resp B/P (MAP) Pulse Ox O2 Delivery O2 Flow Rate FiO2 08/10/24 09:56 101 20 117/72 (87) 99 50 08/10/24 08:00 99.3 99.3 08/10/24 06:00 Mechanical Ventilator+ 08/08/24 12:33 8 Total Intake and Output 08/09/24 08/09/24 08/10/24 15:00 23:00 07:00 Intake Total 453.418 ml 309.442 ml 150.12 ml Output Total 100 ml 10 ml Balance 453.418 ml 209.442 ml 140.12 ml medications Current Medications Medications Dose Ordered Sig/[place] Route Start Time Stop Time Status Last Admin Dose Admin Enoxaparin Sodium 40 mg DAILY SC 06/10/24 10:00 UNV Enoxaparin Sodium 40 mg DAILY SC 06/17/24 10:00 UNV Epoetin Calin-epbx 10,000 unit TUTHSA SC 06/17/24 12:00 Hold 06/28/24 08:25 10,000 UNIT Lactulose 30 ml [id number] PRN PEG 07/01/24 10:15 07/27/24 09:15 30 ML Metoprolol Tartrate 50 mg BID PO 07/01/24 22:00 08/09/24 21:31 50 MG Clonidine HCl 0.2 mg BID PO 07/03/24 22:00 08/08/24 09:13 0.2 MG Hydralazine HCl 100 mg Q8HR PO 07/07/24 22:00 08/08/24 16:44 100 MG Heparin Sodium (Porcine) 4,000 units JACKY PRN XX 07/09/24 11:00 08/05/24 11:26 4,000 UNITS Amlodipine Besylate 10 mg DAILY PO 07/11/24 10:00 08/08/24 09:13 10 MG Acetylcysteine 200 mg Q6HR NEB 07/14/24 12:00 08/10/24 06:14 200 MG Albuterol 2.5 mg Q6HR NEB 07/14/24 12:00 08/10/24 06:15 2.5 MG Ipratropium [place] 0.5 mg Q6HR NEB 07/14/24 12:00 08/10/24 06:15 0.5 MG Bumetanide 2 mg BIDD PO 07/19/24 15:00 08/09/24 17:31 2 MG Acetaminophen 650 mg Q6HP PRN PO 07/22/24 19:53 08/03/24 06:21 650 MG Fentanyl 25 mcg Q72H TD 07/27/24 10:00 08/08/24 09:11 25 MCG Omeprazole 20 mg DAILY GT 07/28/24 10:00 08/08/24 13:06 20 MG Calcium Acetate 1,334 mg TIDWM PEG 07/28/24 12:33 08/09/24 17:32 1,334 MG Enteral Nutritional Formula 1,000 ml 60ML/HR GT 07/28/24 11:45 08/06/24 18:18 1,000 ML Lorazepam 0.25 mg Q12HP PRN PO 07/28/24 17:15 08/05/24 22:07 0.25 MG Heparin Sodium (Porcine) 5,000 units Q12HR SC 07/28/24 22:00 08/09/24 21:32 5,000 UNITS Ceftazidime/ Dextrose 1 gm/ Sodium Chloride 50 ml @ 16.667 mls/ hr HS IV 08/07/24 22:00 08/08/24 22:57 16.667 MLS/HR Norepinephrine Bitartrate 250 ml @ 3.75 mls/hr Q24H IV 08/08/24 18:45 08/09/24 22:17 15 MLS/HR Dexmedetomidine HCl 400 mcg/ Dextrose 100 ml @ 2.955 mls/ hr Q24H IV 08/08/24 20:15 08/10/24 05:29 5.91 MLS/HR Fentanyl Citrate 250 ml @ 2.5 mls/hr Q24H IV 08/08/24 21:30 08/08/24 22:28 2.5 MLS/HR Phenylephrine HCl 250 ml @ 30 mls/hr Q8H20M IV 08/09/24 15:00 Examination: LUNGS:Normal, CVS:Normal, MSK:Normal laboratory and microbiology Laboratory Tests 08/10/24 04:40 Test 08/10/24 04:40 Range/Units Serum Glucose 81 74-106 mg/dL Microbiology Date/Time Source Procedure Growth Status 07/24/24 18:34 Trachea Gram Stain - Final Complete 07/24/24 18:34 Respiratory Culture - Final Pseudomonas aeruginosa Complete 07/24/24 15:15 Blood Blood Culture - Final NO GROWTH AFTER 5 DAYS OF INCUBATION. Complete 07/18/24 22:30 Urine - Suprapubic Aspirate Urine Culture - Final Complete 06/11/24 16:06 Bronchial Washings Gram Stain - Final Complete 06/11/24 16:06 Respiratory Culture - Final Acinetobacter baumannii Pseudomonas aeruginosa Complete 05/30/24 11:45 Pleural Fluid Gram Stain - Final Complete 05/30/24 11:45 Pleural Fluid Body Fluid Culture - Final Complete Problem List/Assessment/Plan Problem List/Assessment/Plan Acute kidney injury superimposed on chronic kidney disease stage 4, oliguric requiring initiation of hemodialysis Acute respiratory failure, patient is trached on the ventilator Status post cardiac arrest Anemia suspected due to low blood loss s/p PRBC Septic shock, resolved Hypernatremia resolved Hypomagnesemia Peripheral arterial disease Right above knee amputation Metabolic acidosis Chronic urinary retention MRSA bacteremia Recommendations Next hemodialysis 08/12 Epogen 99595 IV post hemodialysis Rubio catheter Strict I&Os Renal diet IV pressors to maintain systolic blood pressure more than 100 during dialysis PEG feeding with nepro IV antibiotic per ID consult We will continue to follow Plan discussed with: Other (Nurse) Dietary Evaluation Review Comments: 1) If GI is assessible consider Jevity 1.2 @ 60 ml/hr x24 hrs goal rate as tolerated 2) If pt remains NPO >7 days consider TPN to meet at least 75% of estimated needs 3) Advance pt diet when medically feasible to a Cardiac/Renal Specific K2,2gmNA,low phos,60g Pro diet modified per INTERNET CONSULTANT recommendations 4) Continue current plan of care Expected Outcomes/Goals: 1) Pt to receive adequate nutrition support 2) Pt diet to advance CC Plasma Assessment Blood Product Administration S: [id number] DAVID TORRES MD Aug 10, 2024 10:19
--- NOTE | 2024-08-10 11:26 | DVH ---
Procedure: CT CHEST WITHOUT CONTRAST Reason for study/Clinical History: PNEUMOTHORAX Comparison Study: Chest radiograph 08/10/2024, CT chest 07/24/2024 Exam Date: 08/10/2024 09:29 AM TECHNIQUE: Multidetector CT of the chest was performed from the lung apices to the upper abdomen with out the use of intravenous contract. Axial, coronal and sagittal multiplanar reformats were performed . Radiation Dose Information: CT Dose: CTDI volume is 6.63 mGy. Dose-length product is 274.9 mGy*cm The dose indicators for CT are the volume Computed Tomography (CT) Dose Index (CTDIvol) and the Dose Length Product (DLP), and are measured in units of mGy and mGy-cm, respectively. These indicators are not patient dose, but values generated from the CT scanner acquisition factors. The report includes radiation exposure data for exposures received during this examination. FINDINGS: Lower neck: Normal thyroid. Lungs and pleura: Redemonstration of a small left pneumothorax. Decreased size of small to moderate l eft pleural effusion. Sublobar left lower lobe atelectasis is improving. Near-complete resolution of left upper lobe ground-glass opacities. Slightly worsening ground-glass opacity in the right lower lo be and posterior right upper lobe. Tracheostomy is noted. Heart/Vascular Structures: Normal heart size. No pericardial effusion. Coronary artery calcifications . Right IJ hemodialysis catheter terminates in the SVC. Partially visualized left IJ central venous c atheter terminates in the SVC. Moderate atherosclerotic calcifications of the aorta. Lymph Nodes: No adenopathy Musculoskeletal: No acute osseous abnormality. Partially visualized thoracolumbar spinal hardware. De generative changes of the spine. Severe degenerative change of the left glenohumeral joint. Moderate left shoulder joint effusion. Soft tissues: Normal. Upper abdomen: Limited evaluation due to beam hardening artifact from hardware. Cholelithiasis. Atro phic right kidney. Cyst noted in the left kidney. Trace perihepatic ascites. IMPRESSION: 1. Redemonstration of the small left pneumothorax. 2. Decreased size of small to moderate left pleural effusion. Sublobar left lower lobe atelectasis is improving. 3. Near complete resolution of left upper lobe ground-glass opacities. Slightly worsening ground-glas s opacity in the right lower lobe and posterior right upper lobe. 4. Other chronic/nonacute findings as above. Radiation optimization: All CT scans at this facility use at least one of these dose optimization maritza hniques: automated exposure control mA and/or kV adjustment per patient size (includes targeted exam s where dose is matched to clinical indication) or iterative reconstruction.
--- NOTE | 2024-08-10 22:32 | DVHPN2 ---
Progress Note - Dictate Date Seen: Aug 10, 2024 Has the PT tested + for MRSA If YES, has PT been informed?: Yes Medical Necessity Reason Pt with a Central, PICC or Fol: Yes The following are medically ne: Central Line, Rubio Catheter Reason for rubio catheter: Strict I&O Subjective Patient seen and examined at bedside. On mechanical ventilator. S/p trach Overnight events reviewed. vital signs Vital Sign Date Time Temp Pulse Resp B/P (MAP) Pulse Ox O2 Delivery O2 Flow Rate FiO2 08/10/24 22:14 96 20 122/66 (84) 98 40 08/10/24 22:00 Trach Collar 2 08/10/24 20:00 99.2 99.2 Total Intake and Output 08/09/24 08/09/24 08/10/24 15:00 23:00 07:00 Intake Total 453.418 ml 309.442 ml 169.78 ml Output Total 100 ml 10 ml Balance 453.418 ml 209.442 ml 159.78 ml medications Current Medications Medications Dose Ordered Sig/[place] Route Start Time Stop Time Status Last Admin Dose Admin Enoxaparin Sodium 40 mg DAILY SC 06/10/24 10:00 UNV Enoxaparin Sodium 40 mg DAILY SC 06/17/24 10:00 UNV Epoetin Calin-epbx 10,000 unit TUTHSA SC 06/17/24 12:00 Hold 06/28/24 08:25 10,000 UNIT Lactulose 30 ml [id number] PRN PEG 07/01/24 10:15 07/27/24 09:15 30 ML Metoprolol Tartrate 50 mg BID PO 07/01/24 22:00 08/10/24 10:19 50 MG Clonidine HCl 0.2 mg BID PO 07/03/24 22:00 08/10/24 21:35 0.2 MG Hydralazine HCl 100 mg Q8HR PO 07/07/24 22:00 08/10/24 14:00 100 MG Heparin Sodium (Porcine) 4,000 units JACKY PRN XX 07/09/24 11:00 08/05/24 11:26 4,000 UNITS Amlodipine Besylate 10 mg DAILY PO 07/11/24 10:00 08/10/24 10:20 10 MG Acetylcysteine 200 mg Q6HR NEB 07/14/24 12:00 08/10/24 18:45 200 MG Albuterol 2.5 mg Q6HR NEB 07/14/24 12:00 08/10/24 18:43 2.5 MG Ipratropium [place] 0.5 mg Q6HR NEB 07/14/24 12:00 08/10/24 18:43 0.5 MG Bumetanide 2 mg BIDD PO 07/19/24 15:00 08/10/24 18:00 2 MG Acetaminophen 650 mg Q6HP PRN PO 07/22/24 19:53 08/03/24 06:21 650 MG Fentanyl 25 mcg Q72H TD 07/27/24 10:00 08/08/24 09:11 25 MCG Omeprazole 20 mg DAILY GT 07/28/24 10:00 08/08/24 13:06 20 MG Calcium Acetate 1,334 mg TIDWM PEG 07/28/24 12:33 08/10/24 18:00 1,334 MG Enteral Nutritional Formula 1,000 ml 60ML/HR GT 07/28/24 11:45 08/10/24 21:37 1,000 ML Lorazepam 0.25 mg Q12HP PRN PO 07/28/24 17:15 08/05/24 22:07 0.25 MG Heparin Sodium (Porcine) 5,000 units Q12HR SC 07/28/24 22:00 08/10/24 21:37 5,000 UNITS Ceftazidime/ Dextrose 1 gm/ Sodium Chloride 50 ml @ 16.667 mls/ hr HS IV 08/07/24 22:00 08/10/24 21:34 16.667 MLS/HR Norepinephrine Bitartrate 250 ml @ 3.75 mls/hr Q24H IV 08/08/24 18:45 08/10/24 17:30 11.25 MLS/HR Dexmedetomidine HCl 400 mcg/ Dextrose 100 ml @ 2.955 mls/ hr Q24H IV 08/08/24 20:15 08/10/24 05:29 5.91 MLS/HR Fentanyl Citrate 250 ml @ 2.5 mls/hr Q24H IV 08/08/24 21:30 08/08/24 22:28 2.5 MLS/HR Phenylephrine HCl 250 ml @ 30 mls/hr Q8H20M IV 08/09/24 15:00 objective Gen.: Patient lying in bed in medical ICU. On mechanical ventilator. S/p trach Head: Normocephalic, atraumatic. Eyes: PERRLA. Ears: Normal external anatomy. Neck: Trach in place. Chest: Transmitted breath sounds bilaterally. Decreased air entry bilaterally. No wheezing. Bibasilar crackles. Cardiovascular: Positive S1, positive S2. Regular rate and rhythm. Abdomen: Positive bowel sounds in all 4 quadrants. Soft, nontender, nondistended. : Rubio in place. Normal external genitalia. Rectal: Deferred. Skin: Warm, dry. Intact. Extremities: 2+ radial pulses bilaterally. No lower extremity edema. Neuro: Off sedation, on Fentanyl/Precedex laboratory and microbiology Laboratory Tests 08/10/24 04:40 Test 08/10/24 04:40 Range/Units Serum Glucose 81 74-106 mg/dL Assessment/Plan Impression: Acute hypoxic respiratory failure On mechanical ventilator Multifocal pneumonia Atelectasis Congestive heart failure Tracheostomy Pneumothorax Events: CT chest reviewed; redemonstration of the small left pneumothorax. Decreased size of small to moderate left pleural effusion. Sublobar left lower lobe atelectasis is improving. Near complete resolution of left upper lobe ground-glass opacities. Slightly worsening ground-glass opacity in the right lower lobe and posterior right upper lobe. CXR notable for left pneumothorax. Remains on vent via trach Fentanyl for analgesia Precedex drip for agitation On Levophed 6 mcg/min for hemodynamic support Titrate to keep mean arterial pressure greater than 65 mmHg S/p trach S/p PEG. Trach care Pulmonary toileting Continue bronchodilators Continue antibiotics Follow up cultures Wound care. Tube feeds for nutritional support via PEG. HOB elevation Aspiration precautions. Pain control Avoid oversedation HD per Nephrology. Monitor renal function Monitor electrolytes. Supplement as necessary. Awaiting LTAC placement. S/p therapeutic bronchoscopy on 08/09/24 with RML BAL. Cleared mucous plugging from L1-L10 and R1-R10 Please see separate procedure notes for details. S/p bronchoscopy with BAL on 07/08/24. See procedure note for full details. Rest of plan as noted below Plan: S/p trach, trach collar - currently on vent, On A/C mode with RR 20, VT 450, PEEP 5, FiO2 50% Fentanyl for analgesia Precedex drip for agitation On Levophed for hemodynamic support Titrate to keep mean arterial pressure greater than 65 mmHg Antibiotics Bronchodilators Positive hepatitis C. IV fluid hydration Maintain euvolemia Monitor renal function Monitor electrolytes. Supplement as necessary. Monitor ins and outs. Tube feeds for nutritional support. GI prophylaxis. DVT prophylaxis. Prognosis: Poor given patient's multiple co-morbidities. Condition: Critical Rest of plan per hospitalist and other consultants. A total of 35 minutes of critical care time was spent reviewing the patient record, examining the patient, making a diagnostic and therapeutic plan, discussing this plan with the medical personnel, following up on diagnostic studies and following the patient for clinical stability excluding any and all procedures. At least 50% of this time was spent in direct, [id number] contact. Thank you Anthony Ugalde NP, for allowing me to participate in this patient's care. Further recommendations will depend on the patient's clinical course. Please do not hesitate to contact me if you have any questions or concerns. This medical document was created using an electronic medical record system with [employer] dictation system. Although these documentations are being carefully reviewed, there may still be some phonetic and typographical changes. The errors are purely typographical, due to imperfection on the software program, and do not reflect any compromise in the patient's medical care. Dietary Evaluation Review Comments: 1) If GI is assessible consider Jevity 1.2 @ 60 ml/hr x24 hrs goal rate as tolerated 2) If pt remains NPO >7 days consider TPN to meet at least 75% of estimated needs 3) Advance pt diet when medically feasible to a Cardiac/Renal Specific K2,2gmNA,low phos,60g Pro diet modified per ENTERPRISE INTEGRATION DEVELOPER recommendations 4) Continue current plan of care Expected Outcomes/Goals: 1) Pt to receive adequate nutrition support 2) Pt diet to advance Plan discussed with: Other (DORCAS Fraser) Critical Care Time(min): 35 CC Plasma Assessment Blood Product Administration S: [id number] ELIANE ALTAMIRANO MD Aug 10, 2024 22:32
[2024-08-11] VITALS (107 sets, daily range): BP systolic 79–156; BP diastolic 39–84; PULSE 89–126; RESP 10–41; TEMP 98.1–100.3; O2SAT 92–100
[2024-08-11 05:29] LABS: Albumin 3.5 g/dL (3.2-4.8); Anion Gap 12 (5-15); BUN/Creatinine Ratio 16.8 (10.0-20.0); Carbon Dioxide 28 mmol/L (20-31); Chloride 99 mmol/L (98-107); Glucose 92 mg/dL (74-106); Potassium 3.8 mmol/L (3.5-5.1); Sodium 139 mmol/L (136-145); Total Protein 7.2 g/dL (5.7-8.2)
[2024-08-11 05:32] LABS: Alanine Aminotransferase 87 U/L (7-40); Alkaline Phosphatase 203 U/L (46-116); Aspartate Aminotransferase 72 U/L (13-40); Bilirubin, Total 0.2 mg/dL (0.2-1.0); Blood Urea Nitrogen 49 mg/dL (9-23); Calcium 11.6 mg/dL (8.7-10.4)
[2024-08-11 06:02] LABS: Basophils # (auto) 0 10 ^3/uL (0-0.2); Eosinophils # (auto) 0.1 10 ^3/uL (0-0.8); Lymphocytes # (auto) 0.7 10 ^3/uL (0.4-5.4); Lymphocytes % (auto) 12.4 % (10.0-50.0); Mean Corpuscular Hgb Conc. 33.4 g/dL (32.0-36.0); Monocytes # (auto) 0.4 10 ^3/uL (0-1.3); Neutrophils # (auto) 4.6 10 ^3/uL (1.6-8.6); Nucleated Red Blood Cells % 0.1 %
[2024-08-11 06:06] LABS: Basophils % (auto) 0.4 % (0.0-2.0); Eosinophils % (auto) 1.9 % (0.0-7.0); Mean Corpuscular Hemoglobin 32.6 pg (28.0-32.0); Mean Corpuscular Volume 97.4 fL (80.0-100.0); Monocytes % (auto) 7.1 % (0.0-12.0); Neutrophils % (auto) 78.2 % (37.0-80.0); Platelet Count (auto) 235 10^3/uL (140-450); Red Blood Cells 2.16 10^6/uL (4.5-5.90); Red Cell Distribution Width 17.9 % (11.8-14.3); White Blood Cell 5.8 10^3/uL (4.4-10.8)
[2024-08-11 08:18] LABS: Base Excess 1.7 mmol/L (-2.0-3.0)
--- NOTE | 2024-08-11 09:58 | DVHPN2 ---
Progress Note Date Seen: Aug 11, 2024 Has the PT tested + for MRSA If YES, has PT been informed?: Yes Medical Necessity Reason Pt with a Central, PICC or Fol: Yes The following are medically ne: Central Line, Rubio Catheter Reason for rubio catheter: Strict I&O Subjective Patient reports: No new complaints Objective vital signs Vital Sign Date Time Temp Pulse Resp B/P (MAP) Pulse Ox O2 Delivery O2 Flow Rate FiO2 08/11/24 09:47 107 25 124/65 (84) 99 60 08/11/24 08:00 Mechanical Ventilator+ 2 08/11/24 08:00 99.4 99.4 Total Intake and Output 08/10/24 08/10/24 08/11/24 15:00 23:00 07:00 Intake Total 157.28 ml 277.03 ml 759.833 ml Output Total 5 ml 105 ml Balance 157.28 ml 272.03 ml 654.833 ml medications Current Medications Medications Dose Ordered Sig/[place] Route Start Time Stop Time Status Last Admin Dose Admin Enoxaparin Sodium 40 mg DAILY SC 06/10/24 10:00 UNV Enoxaparin Sodium 40 mg DAILY SC 06/17/24 10:00 UNV Epoetin Calin-epbx 10,000 unit TUTHSA SC 06/17/24 12:00 Hold 06/28/24 08:25 10,000 UNIT Lactulose 30 ml [id number] PRN PEG 07/01/24 10:15 07/27/24 09:15 30 ML Metoprolol Tartrate 50 mg BID PO 07/01/24 22:00 08/10/24 10:19 50 MG Clonidine HCl 0.2 mg BID PO 07/03/24 22:00 08/10/24 21:35 0.2 MG Hydralazine HCl 100 mg Q8HR PO 07/07/24 22:00 08/10/24 14:00 100 MG Heparin Sodium (Porcine) 4,000 units JACKY PRN XX 07/09/24 11:00 08/05/24 11:26 4,000 UNITS Amlodipine Besylate 10 mg DAILY PO 07/11/24 10:00 08/10/24 10:20 10 MG Acetylcysteine 200 mg Q6HR NEB 07/14/24 12:00 08/11/24 06:22 200 MG Albuterol 2.5 mg Q6HR NEB 07/14/24 12:00 08/11/24 06:23 2.5 MG Ipratropium [place] 0.5 mg Q6HR NEB 07/14/24 12:00 08/11/24 06:23 0.5 MG Bumetanide 2 mg BIDD PO 07/19/24 15:00 08/10/24 18:00 2 MG Acetaminophen 650 mg Q6HP PRN PO 07/22/24 19:53 08/03/24 06:21 650 MG Fentanyl 25 mcg Q72H TD 07/27/24 10:00 08/08/24 09:11 25 MCG Omeprazole 20 mg DAILY GT 07/28/24 10:00 08/08/24 13:06 20 MG Calcium Acetate 1,334 mg TIDWM PEG 07/28/24 12:33 08/11/24 08:16 1,334 MG Enteral Nutritional Formula 1,000 ml 60ML/HR GT 07/28/24 11:45 08/10/24 21:37 1,000 ML Lorazepam 0.25 mg Q12HP PRN PO 07/28/24 17:15 08/05/24 22:07 0.25 MG Heparin Sodium (Porcine) 5,000 units Q12HR SC 07/28/24 22:00 08/10/24 21:37 5,000 UNITS Ceftazidime/ Dextrose 1 gm/ Sodium Chloride 50 ml @ 16.667 mls/ hr HS IV 08/07/24 22:00 08/10/24 21:34 16.667 MLS/HR Norepinephrine Bitartrate 250 ml @ 3.75 mls/hr Q24H IV 08/08/24 18:45 08/10/24 17:30 11.25 MLS/HR Dexmedetomidine HCl 400 mcg/ Dextrose 100 ml @ 2.955 mls/ hr Q24H IV 08/08/24 20:15 08/10/24 23:37 5.91 MLS/HR Fentanyl Citrate 250 ml @ 2.5 mls/hr Q24H IV 08/08/24 21:30 08/11/24 05:40 5 MLS/HR Phenylephrine HCl 250 ml @ 30 mls/hr Q8H20M IV 08/09/24 15:00 Examination: GENERAL:Abnormal, LUNGS:Abnormal, CVS:Abnormal, ABDOMEN:Abnormal, SKIN:Abnormal laboratory and microbiology Laboratory Tests 08/11/24 04:57 Test 08/11/24 04:57 Range/Units Serum Glucose 92 74-106 mg/dL Microbiology Date/Time Source Procedure Growth Status 07/24/24 18:34 Trachea Gram Stain - Final Complete 07/24/24 18:34 Respiratory Culture - Final Pseudomonas aeruginosa Complete 07/24/24 15:15 Blood Blood Culture - Final NO GROWTH AFTER 5 DAYS OF INCUBATION. 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 Acute respiratory failure advanced a chronic respiratory failure status post trach now trach to wall oxygen Septic shock resolved due to multidrug resistant organisms Peripheral artery disease Coronary artery disease Severe protein calorie malnutrition anemia due to ckd hyperkalemia hyperphosphatemia HD sunday calcium acetate in tube feeds change feeds to renal restricted change to nepro epogen 3x a week Plan discussed with: Patient Dietary Evaluation Review Comments: 1) If GI is assessible consider Jevity 1.2 @ 60 ml/hr x24 hrs goal rate as tolerated 2) If pt remains NPO >7 days consider TPN to meet at least 75% of estimated needs 3) Advance pt diet when medically feasible to a Cardiac/Renal Specific K2,2gmNA,low phos,60g Pro diet modified per RETREAD OPERATOR recommendations 4) Continue current plan of care Expected Outcomes/Goals: 1) Pt to receive adequate nutrition support 2) Pt diet to advance CC Plasma Assessment Blood Product Administration S: [id number] ANNA ROMERO MD Aug 11, 2024 09:58
--- NOTE | 2024-08-11 17:45 | DVHPNRES ---
Progress Note Date Seen: Aug 11, 2024 Resident Creating Document: DANGELO COTO RESIDENT Has the PT tested + for MRSA If YES, has PT been informed?: Yes Medical Necessity Reason Pt with a Central, PICC or Fol: Yes The following are medically ne: Central Line, Rubio Catheter Reason for rubio catheter: Strict I&O Subjective Review of Systems Patient seen and examined at bedside Patient is currently on mechanical ventilation with t-tube. He comprehends but is not verbal Objective vital signs Vital Sign Date Time Temp Pulse Resp B/P (MAP) Pulse Ox O2 Delivery O2 Flow Rate FiO2 08/11/24 17:00 117 19 119/63 (81) 98 08/11/24 16:00 Mechanical Ventilator+ 60 60 08/11/24 12:00 99.0 99.0 08/11/24 08:00 2 Total Intake and Output 08/10/24 08/10/24 08/11/24 15:00 23:00 07:00 Intake Total 157.28 ml 277.03 ml 759.833 ml Output Total 5 ml 105 ml Balance 157.28 ml 272.03 ml 654.833 ml medications Current Medications Medications Dose Ordered Sig/[place] Route Start Time Stop Time Status Last Admin Dose Admin Enoxaparin Sodium 40 mg DAILY SC 06/10/24 10:00 UNV Enoxaparin Sodium 40 mg DAILY SC 06/17/24 10:00 UNV Epoetin Calin-epbx 10,000 unit TUTHSA SC 06/17/24 12:00 Hold 06/28/24 08:25 10,000 UNIT Lactulose 30 ml [id number] PRN PEG 07/01/24 10:15 07/27/24 09:15 30 ML Metoprolol Tartrate 50 mg BID PO 07/01/24 22:00 08/10/24 10:19 50 MG Clonidine HCl 0.2 mg BID PO 07/03/24 22:00 08/10/24 21:35 0.2 MG Hydralazine HCl 100 mg Q8HR PO 07/07/24 22:00 08/10/24 14:00 100 MG Heparin Sodium (Porcine) 4,000 units JACKY PRN XX 07/09/24 11:00 08/05/24 11:26 4,000 UNITS Amlodipine Besylate 10 mg DAILY PO 07/11/24 10:00 08/10/24 10:20 10 MG Acetylcysteine 200 mg Q6HR NEB 07/14/24 12:00 08/11/24 11:14 200 MG Albuterol 2.5 mg Q6HR NEB 07/14/24 12:00 08/11/24 11:14 2.5 MG Ipratropium [place] 0.5 mg Q6HR NEB 07/14/24 12:00 08/11/24 11:14 0.5 MG Bumetanide 2 mg BIDD PO 07/19/24 15:00 08/10/24 18:00 2 MG Acetaminophen 650 mg Q6HP PRN PO 07/22/24 19:53 08/03/24 06:21 650 MG Fentanyl 25 mcg Q72H TD 07/27/24 10:00 08/08/24 09:11 25 MCG Omeprazole 20 mg DAILY GT 07/28/24 10:00 08/11/24 10:00 20 MG Calcium Acetate 1,334 mg TIDWM PEG 07/28/24 12:33 08/11/24 12:24 1,334 MG Enteral Nutritional Formula 1,000 ml 60ML/HR GT 07/28/24 11:45 08/10/24 21:37 1,000 ML Lorazepam 0.25 mg Q12HP PRN PO 07/28/24 17:15 08/05/24 22:07 0.25 MG Heparin Sodium (Porcine) 5,000 units Q12HR SC 07/28/24 22:00 08/10/24 21:37 5,000 UNITS Ceftazidime/ Dextrose 1 gm/ Sodium Chloride 50 ml @ 16.667 mls/ hr HS IV 08/07/24 22:00 08/10/24 21:34 16.667 MLS/HR Norepinephrine Bitartrate 250 ml @ 3.75 mls/hr Q24H IV 08/08/24 18:45 08/10/24 17:30 11.25 MLS/HR Dexmedetomidine HCl 400 mcg/ Dextrose 100 ml @ 2.955 mls/ hr Q24H IV 08/08/24 20:15 08/10/24 23:37 5.91 MLS/HR Fentanyl Citrate 250 ml @ 2.5 mls/hr Q24H IV 08/08/24 21:30 08/11/24 05:40 5 MLS/HR Phenylephrine HCl 250 ml @ 30 mls/hr Q8H20M IV 08/09/24 15:00 Examination Examination General Appearance: Nonverbal, on trach collar, 6 L through nasal cannula continuous Respiratory: Clear to auscultation, Normal air movement, on 6 L through Cardiovascular: Regular rate, Normal S1, Normal S2 Abdominal: Normal bowel sounds, peg tube present, suprapubic catheter present Extremities: Right BKA, 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 Complete 07/18/24 22:30 Urine - Suprapubic Aspirate Urine Culture - Final Complete 06/11/24 16:06 Bronchial Washings Gram Stain - Final Complete 06/11/24 16:06 Respiratory Culture - Final Acinetobacter baumannii Pseudomonas aeruginosa Complete 05/30/24 11:45 Pleural Fluid Gram Stain - Final Complete 05/30/24 11:45 Pleural Fluid Body Fluid Culture - Final Complete Labs and/or images reviewed: Labs reviewed by me, Image(s) reviewed by me Problem List/Assessment/Plan Problem List/Assessment/Plan Assessment/plan Neurology #Sedation -off sedation # acute metabolic encephalopathy likely due to sepsis -resolving, but complete neurological examination cant be accessed as pt is non verbal # history of seizures -History of seizure during last admission (1 month back) used Keppra for 1 week Discontinued Keppra, on 06/16 EEG shows abnormal EEG recording consistent with the presence of a diffuse nonspecific encephalopathic state # history of stroke Old infarct in the right frontal lobe and right parietal occipital lobe, seen on imaging Cardiovascular # shock likely septic -resolved #Hypertension -amlodipine 10 mg daily, clonidine 0.2 mg p.o. b.i.d., hydralazine 100 mg p.o. Q HR, metoprolol 50 mg p.o. b.i.d. Respiratory # acute hypoxic respiratory failure due to pneumonia s/p tracheostomy 06/13 -albuterol p.r.n., ipratropium neb -on T collar , mech vent # aspiration pneumonia, Gram-positive/Gram-negative -changed to IV ceftazidime # pneumomediastinum and pneumopericardium -seen on imaging # left lower lobe atelectasis -seen on imaging #Recurrent mucus plugging -Mucomyst -repeat CXR -s/p multiple bronchoscopy #Small left pneumothorax -monitor with repeat CXRP GI # hepatitis-C positive # status post PEG tube 06/15 Nephrology # FROYLAN due to hemodynamic mediated likely due to sepsis, requiring dialysis - Homer catheter placed on left internal jugular, on 06/26, removed on 07/04 - tunneled catheter placed to the right upper chest 07/04 -received dialysis as per schedule -on Bumex tablet 2 mg p.o. b.i.d. # hyponatremia, improved monitor # hyperkalemia -monitor # hypomagnesemia -monitor Urology # UTI -currently on IV cefepime # s/p suprapubic catheter Musculoskeletal/dermatological # status post above-knee amputation - due to peripheral arterial disease # decubitus ulcer -wound care Endocrine # secondary hyperparathyroidism -likely due to FROYLAN/CKD # hypocalcemia due to FROYLAN/CKD -on oral calcium, discontinued # hypoglycemia likely due to sepsis -resolved Hematology/oncology # severe anemia requiring transfusion, anemia of chronic disease, macrocytic anemia -monitor CBC -1 unit of PRBC transfusion with Dialysis # thrombocytopenia -monitor CBC Infectious disease # septic shock -resolved -currently on ceftazidime Psychiatry #Anxiety -Ativan oral PRN LINES/DRAINS/ACCESS: ETT, intubated on 05/28/2024 and tracheostomy performed on 06/11, PEG tube placed on 06/15 IV access Left internal jugular CVC, placed on 06/26 and removed on 07/04 Right IJ hemodialysis catheter placed 07/04 Left upper PICC line Suprapubic catheter, changed on 07/14/2024 Dripps: Off Nutrition Enteral through PEG tube , nepro with carb steady DVT prophylaxis Started on heparin 5000 subc q.12h, on hold considering severe anemia Peptic ulcer disease prophylaxis Omeprazole 20 mg GT daily Bowel regimen Lactulose 30 mg q.12h Code status discussed with the family for greater than 21 minutes, full code critical care time excluding procedures was 57 mins Case discussion with Dr. isabel check services clerk consulted for transfer to LTACH facility Plan discussed with: Other My Orders My Orders Orders - DANGELO COTO RESIDENT Procedure Category Date Status Time Complete Blood Count LAB 08/12/24 Verified 04:00 Magnesium LAB 08/12/24 Verified 04:00 Chest Portable XY 08/12/24 Logged 04:00 Abg W/ Co-Ox RT 08/12/24 Logged 04:00 Packedcell-Noactive BBK 08/11/24 Logged Bleeding 17:40 Type And Screen BBK 08/11/24 Logged 17:40 * Machine Design Teacher CONS 08/11/24 Transmitted Consult Dietary Evaluation Review Comments: 1) If GI is assessible consider Jevity 1.2 @ 60 ml/hr x24 hrs goal rate as tolerated 2) If pt remains NPO >7 days consider TPN to meet at least 75% of estimated needs 3) Advance pt diet when medically feasible to a Cardiac/Renal Specific K2,2gmNA,low phos,60g Pro diet modified per PHYSICIST ASTROPHYSICS recommendations 4) Continue current plan of care Expected Outcomes/Goals: 1) Pt to receive adequate nutrition support 2) Pt diet to advance CC Plasma Assessment Blood Product Administration S: [id number] Date of Service: Aug 11, 2024 Billing Provider: HOLGER ISABEL MD Common Visit Codes: [id number] CARE 30-74 MIN DANGELO COTO RESIDENT Aug 11, 2024 17:45 HOLGER ISAEBL MD Aug 12, 2024 16:23
[2024-08-11] MEDS: MORPHINE SULFATE INJ 2 MG/ml SYRG IV ONE (21:45)
[2024-08-12] VITALS (106 sets, daily range): BP systolic 86–177; BP diastolic 48–105; PULSE 77–142; RESP 12–33; TEMP 97.8–99.8; O2SAT 90–100
[2024-08-12 05:40] LABS: Basophils # (auto) 0 10 ^3/uL (0-0.2); Basophils % (auto) 0.5 % (0.0-2.0); Eosinophils # (auto) 0.2 10 ^3/uL (0-0.8); Eosinophils % (auto) 3.5 % (0.0-7.0); Hematocrit 19.4 % (41.0-53.0); Lymphocytes # (auto) 0.8 10 ^3/uL (0.4-5.4); Lymphocytes % (auto) 14.7 % (10.0-50.0); Mean Corpuscular Hemoglobin 33.7 pg (28.0-32.0); Mean Corpuscular Hgb Conc. 34.5 g/dL (32.0-36.0); Mean Corpuscular Volume 97.6 fL (80.0-100.0); Monocytes # (auto) 0.5 10 ^3/uL (0-1.3); Monocytes % (auto) 8.6 % (0.0-12.0); Neutrophils % (auto) 72.7 % (37.0-80.0); Platelet Count (auto) 211 10^3/uL (140-450); Red Blood Cells 1.99 10^6/uL (4.5-5.90); Red Cell Distribution Width 17.9 % (11.8-14.3); White Blood Cell 5.6 10^3/uL (4.4-10.8)
[2024-08-12 05:41] LABS: Hemoglobin 6.7 g/dL (13.5-17.5)
[2024-08-12 05:53] LABS: Chloride 102 mmol/L (98-107); Potassium 3.5 mmol/L (3.5-5.1); Sodium 142 mmol/L (136-145)
[2024-08-12 05:54] LABS: Anion Gap 11 (5-15); Carbon Dioxide 29 mmol/L (20-31)
[2024-08-12 06:00] LABS: BUN/Creatinine Ratio 20.1 (10.0-20.0); Magnesium 2.3 mg/dL (1.6-2.6)
[2024-08-12 06:01] LABS: Blood Urea Nitrogen 72 mg/dL (9-23); Calcium 12.1 mg/dL (8.7-10.4); Glucose 126 mg/dL (74-106)
--- NOTE | 2024-08-12 06:03 | DVH ---
EXAM: XR Chest, 1 View CLINICAL INDICATION: trach TECHNIQUE: Frontal view of the chest. COMPARISON: XY CHEST PORTABLE on DOS: 08/10/24, XY CHEST PORTABLE on DOS: 08/08/24, XY CHEST PORTABLE on DOS: 08/08/24, XY CHEST PORTABLE on DOS: 08/08/24, XY CHEST XRAY 1 VIEW on DOS: 08/06/24 FINDINGS: LUNGS AND PLEURAL SPACES: Bibasilar atelectasis or pneumonia. No pneumothorax. HEART: Unremarkable. No cardiomegaly. MEDIASTINUM: Unremarkable. Normal mediastinal contour. BONES/JOINTS: Unremarkable. No acute fracture. TUBES, LINES AND DEVICES: Right internal jugular central venous catheter tip in the superior vena ca va. OTHER FINDINGS: . Contracted patient. IMPRESSION: Bibasilar atelectasis or pneumonia.
[2024-08-12 06:13] LABS: Phosphorus 1.9 mg/dL (2.4-5.1)
[2024-08-12] MEDS: SODIUM CHL 0.9% 1000 ML BAG XX ONE (07:00)
[2024-08-12 07:58] LABS: Base Excess 3.6 mmol/L (-2.0-3.0)
--- NOTE | 2024-08-12 10:35 | DVHPN2 ---
Progress Note Date Seen: Aug 12, 2024 Has the PT tested + for MRSA If YES, has PT been informed?: Yes Medical Necessity Reason Pt with a Central, PICC or Fol: Yes The following are medically ne: Central Line, Rubio Catheter Reason for rubio catheter: Strict I&O Objective vital signs Vital Sign Date Time Temp Pulse Resp B/P (MAP) Pulse Ox O2 Delivery O2 Flow Rate FiO2 08/12/24 09:50 98 28 123/74 (90) 98 30 08/12/24 08:00 Mechanical Ventilator+ 08/12/24 08:00 99.8 99.8 08/11/24 08:00 2 Total Intake and Output 08/11/24 08/11/24 08/12/24 15:00 23:00 07:00 Intake Total 75.694 ml 775.682 ml 623.464 ml Output Total 15 ml 105 ml Balance 75.694 ml 760.682 ml 518.464 ml medications Current Medications Medications Dose Ordered Sig/[place] Route Start Time Stop Time Status Last Admin Dose Admin Enoxaparin Sodium 40 mg DAILY SC 06/10/24 10:00 UNV Enoxaparin Sodium 40 mg DAILY SC 06/17/24 10:00 UNV Epoetin Calin-epbx 10,000 unit TUTHSA SC 06/17/24 12:00 Hold 06/28/24 08:25 10,000 UNIT Lactulose 30 ml [id number] PRN PEG 07/01/24 10:15 07/27/24 09:15 30 ML Metoprolol Tartrate 50 mg BID PO 07/01/24 22:00 Hold 08/10/24 10:19 50 MG Clonidine HCl 0.2 mg BID PO 07/03/24 22:00 Hold 08/10/24 21:35 0.2 MG Hydralazine HCl 100 mg Q8HR PO 07/07/24 22:00 Hold 08/10/24 14:00 100 MG Heparin Sodium (Porcine) 4,000 units JACKY PRN XX 07/09/24 11:00 08/05/24 11:26 4,000 UNITS Amlodipine Besylate 10 mg DAILY PO 07/11/24 10:00 Hold 08/10/24 10:20 10 MG Acetylcysteine 200 mg Q6HR NEB 07/14/24 12:00 08/12/24 06:56 200 MG Albuterol 2.5 mg Q6HR NEB 07/14/24 12:00 08/12/24 06:56 2.5 MG Ipratropium [place] 0.5 mg Q6HR NEB 07/14/24 12:00 08/12/24 06:55 0.5 MG Bumetanide 2 mg BIDD PO 07/19/24 15:00 08/10/24 18:00 2 MG Acetaminophen 650 mg Q6HP PRN PO 07/22/24 19:53 08/03/24 06:21 650 MG Fentanyl 25 mcg Q72H TD 07/27/24 10:00 08/08/24 09:11 25 MCG Omeprazole 20 mg DAILY GT 07/28/24 10:00 08/12/24 09:26 20 MG Calcium Acetate 1,334 mg TIDWM PEG 07/28/24 12:33 08/12/24 09:23 1,334 MG Enteral Nutritional Formula 1,000 ml 60ML/HR GT 07/28/24 11:45 08/10/24 21:37 1,000 ML Lorazepam 0.25 mg Q12HP PRN PO 07/28/24 17:15 08/05/24 22:07 0.25 MG Heparin Sodium (Porcine) 5,000 units Q12HR SC 07/28/24 22:00 08/10/24 21:37 5,000 UNITS Ceftazidime/ Dextrose 1 gm/ Sodium Chloride 50 ml @ 16.667 mls/ hr HS IV 08/07/24 22:00 08/11/24 22:23 16.667 MLS/HR Norepinephrine Bitartrate 250 ml @ 3.75 mls/hr Q24H IV 08/08/24 18:45 08/10/24 17:30 11.25 MLS/HR Dexmedetomidine HCl 400 mcg/ Dextrose 100 ml @ 2.615 mls/ hr Q24H IV 08/12/24 09:00 08/12/24 09:12 2.615 MLS/HR Examination: GENERAL:Abnormal, LUNGS:Abnormal, CVS:Abnormal, ABDOMEN:Abnormal, SKIN:Abnormal laboratory and microbiology Laboratory Tests 08/12/24 05:13 Test 08/12/24 05:13 Range/Units Serum Glucose 126 H 74-106 mg/dL Microbiology Date/Time Source Procedure Growth Status 07/24/24 18:34 Trachea Gram Stain - Final Complete 07/24/24 18:34 Respiratory Culture - Final Pseudomonas aeruginosa Complete 07/24/24 15:15 Blood Blood Culture - Final NO GROWTH AFTER 5 DAYS OF INCUBATION. 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 rec check daily nepro high Ca noted Phoslo stopped epogen 3x a week PRBC today Plan discussed with: Patient My Orders My Orders Orders - ANNA ROMERO MD Procedure Category Date Status Time Hemodialysis Orders ORDERS 08/12/24 Transmitted 07:00 Dialysis Nursing SUZAN 08/12/24 In Process Message 07:00 Document Fluid Input SUZAN 08/12/24 In Process And Outpu 07:00 Epoetin Calin-Epbx PHA 08/12/24 In Process (Retacrit) 21:00 Communication Order ORDERS 08/11/24 Transmitted 19:52 Dietary Evaluation Review Comments: 1) If GI is assessible consider Jevity 1.2 @ 60 ml/hr x24 hrs goal rate as tolerated 2) If pt remains NPO >7 days consider TPN to meet at least 75% of estimated needs 3) Advance pt diet when medically feasible to a Cardiac/Renal Specific K2,2gmNA,low phos,60g Pro diet modified per HEMMER CHAINSTITCH recommendations 4) Continue current plan of care Expected Outcomes/Goals: 1) Pt to receive adequate nutrition support 2) Pt diet to advance CC Plasma Assessment Blood Product Administration S: [id number] ANNA ROMERO MD Aug 12, 2024 10:35
--- NOTE | 2024-08-12 17:08 | DVHPNRES ---
Progress Note Date Seen: Aug 12, 2024 Resident Creating Document: DANGELO COTO RESIDENT Has the PT tested + for MRSA If YES, has PT been informed?: Yes Medical Necessity Reason Pt with a Central, PICC or Fol: Yes The following are medically ne: Central Line, Rubio Catheter Reason for rubio catheter: Strict I&O Subjective Review of Systems Patient seen and examined at bedside Patient is currently on mechanical ventilation with t-tube on SIMV mode. He comprehends but is not verbal scheduled for dialysis today Objective vital signs Vital Sign Date Time Temp Pulse Resp B/P (MAP) Pulse Ox O2 Delivery O2 Flow Rate FiO2 08/12/24 16:00 24 97 Mechanical Ventilator+ 30 30 08/12/24 16:00 115 08/12/24 16:00 99.1 146/80 (102) 99.1 08/11/24 08:00 2 Total Intake and Output 08/11/24 08/11/24 08/12/24 15:00 23:00 07:00 Intake Total 75.694 ml 775.682 ml 623.464 ml Output Total 15 ml 105 ml Balance 75.694 ml 760.682 ml 518.464 ml medications Current Medications Medications Dose Ordered Sig/[place] Route Start Time Stop Time Status Last Admin Dose Admin Enoxaparin Sodium 40 mg DAILY SC 06/10/24 10:00 UNV Enoxaparin Sodium 40 mg DAILY SC 06/17/24 10:00 UNV Epoetin Calin-epbx 10,000 unit TUTHSA SC 06/17/24 12:00 Hold 06/28/24 08:25 10,000 UNIT Lactulose 30 ml [id number] PRN PEG 07/01/24 10:15 07/27/24 09:15 30 ML Metoprolol Tartrate 50 mg BID PO 07/01/24 22:00 Hold 08/10/24 10:19 50 MG Clonidine HCl 0.2 mg BID PO 07/03/24 22:00 Hold 08/10/24 21:35 0.2 MG Hydralazine HCl 100 mg Q8HR PO 07/07/24 22:00 Hold 08/10/24 14:00 100 MG Heparin Sodium (Porcine) 4,000 units JACKY PRN XX 07/09/24 11:00 08/05/24 11:26 4,000 UNITS Amlodipine Besylate 10 mg DAILY PO 07/11/24 10:00 Hold 08/10/24 10:20 10 MG Acetylcysteine 200 mg Q6HR NEB 07/14/24 12:00 08/12/24 11:47 200 MG Albuterol 2.5 mg Q6HR NEB 07/14/24 12:00 08/12/24 11:47 2.5 MG Ipratropium [place] 0.5 mg Q6HR NEB 07/14/24 12:00 08/12/24 11:47 0.5 MG Acetaminophen 650 mg Q6HP PRN PO 07/22/24 19:53 08/03/24 06:21 650 MG Fentanyl 25 mcg Q72H TD 07/27/24 10:00 08/08/24 09:11 25 MCG Omeprazole 20 mg DAILY GT 07/28/24 10:00 08/12/24 09:26 20 MG Enteral Nutritional Formula 1,000 ml 60ML/HR GT 07/28/24 11:45 08/10/24 21:37 1,000 ML Lorazepam 0.25 mg Q12HP PRN PO 07/28/24 17:15 08/05/24 22:07 0.25 MG Heparin Sodium (Porcine) 5,000 units Q12HR SC 07/28/24 22:00 08/10/24 21:37 5,000 UNITS Ceftazidime/ Dextrose 1 gm/ Sodium Chloride 50 ml @ 16.667 mls/ hr HS IV 08/07/24 22:00 08/11/24 22:23 16.667 MLS/HR Norepinephrine Bitartrate 250 ml @ 3.75 mls/hr Q24H IV 08/08/24 18:45 08/10/24 17:30 11.25 MLS/HR Dexmedetomidine HCl 400 mcg/ Dextrose 100 ml @ 2.615 mls/ hr Q24H IV 08/12/24 09:00 08/12/24 09:12 2.615 MLS/HR Examination Examination General Appearance: Nonverbal, on trach collar, 6 L through nasal cannula continuous Respiratory: Clear to auscultation, Normal air movement, on 6 L through Cardiovascular: Regular rate, Normal S1, Normal S2 Abdominal: Normal bowel sounds, peg tube present, suprapubic catheter present Extremities: Right BKA, 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 Complete 07/18/24 22:30 Urine - Suprapubic Aspirate Urine Culture - Final Complete 06/11/24 16:06 Bronchial Washings Gram Stain - Final Complete 06/11/24 16:06 Respiratory Culture - Final Acinetobacter baumannii Pseudomonas aeruginosa Complete 05/30/24 11:45 Pleural Fluid Gram Stain - Final Complete 05/30/24 11:45 Pleural Fluid Body Fluid Culture - Final Complete Labs and/or images reviewed: Labs reviewed by me, Image(s) reviewed by me Problem List/Assessment/Plan Problem List/Assessment/Plan Assessment/plan Neurology #Sedation -off sedation # acute metabolic encephalopathy likely due to sepsis -resolving, but complete neurological examination cant be accessed as pt is non verbal # history of seizures -History of seizure during last admission (1 month back) used Keppra for 1 week Discontinued Keppra, on 06/16 EEG shows abnormal EEG recording consistent with the presence of a diffuse nonspecific encephalopathic state # history of stroke Old infarct in the right frontal lobe and right parietal occipital lobe, seen on imaging Cardiovascular # shock likely septic -resolved #Hypertension -amlodipine 10 mg daily, clonidine 0.2 mg p.o. b.i.d., hydralazine 100 mg p.o. Q HR, on hold -metoprolol 50 mg p.o. b.i.d, Respiratory # acute hypoxic respiratory failure due to pneumonia s/p tracheostomy 06/13 -albuterol p.r.n., ipratropium neb -on T collar , mech vent SIMV mode # aspiration pneumonia, Gram-positive/Gram-negative -changed to IV ceftazidime # pneumomediastinum and pneumopericardium -seen on imaging # left lower lobe atelectasis -seen on imaging #Recurrent mucus plugging -Mucomyst -repeat CXR -s/p multiple bronchoscopy #Small left pneumothorax -monitor with repeat CXR GI # hepatitis-C positive # status post PEG tube 06/15 Nephrology # FROYLAN due to hemodynamic mediated likely due to sepsis, requiring dialysis - Homer catheter placed on left internal jugular, on 06/26, removed on 07/04 - tunneled catheter placed to the right upper chest 07/04 -received dialysis as per schedule -on Bumex tablet 2 mg p.o. b.i.d., discontinued by the investigative reporter # hyponatremia, improved monitor # hyperkalemia -monitor # hypomagnesemia -monitor Urology # UTI -currently on IV ceftazidime # s/p suprapubic catheter Musculoskeletal/dermatological # status post above-knee amputation - due to peripheral arterial disease # decubitus ulcer -wound care Endocrine # secondary hyperparathyroidism -likely due to FROYLAN/CKD # hypocalcemia due to FROYLAN/CKD -on oral calcium, discontinued # hypoglycemia likely due to sepsis -resolved Hematology/oncology # severe anemia requiring transfusion, anemia of chronic disease, macrocytic anemia -monitor CBC -1 unit of PRBC transfusion with Dialysis # thrombocytopenia -monitor CBC Infectious disease # septic shock -resolved -currently on ceftazidime Psychiatry #Anxiety -Ativan oral PRN LINES/DRAINS/ACCESS: ETT, intubated on 05/28/2024 and tracheostomy performed on 06/11, PEG tube placed on 06/15 IV access Left internal jugular CVC, placed on 06/26 and removed on 07/04 Right IJ hemodialysis catheter placed 07/04 Left upper PICC line Suprapubic catheter, changed on 07/14/2024 Dripps: Off Nutrition Enteral through PEG tube, nepro with carb steady DVT prophylaxis Started on heparin 5000 subc q.12h, on hold considering severe anemia Peptic ulcer disease prophylaxis Omeprazole 20 mg GT daily Bowel regimen Lactulose 30 mg q.12h Code status discussed with the family for greater than 21 minutes, full code critical care time 47 mins Case discussion with Dr. isabel inpatient services rn consulted for transfer to LTACH facility Plan discussed with: Other My Orders My Orders Orders - DANGELO COTO RESIDENT Procedure Category Date Status Time Chest Portable XY 08/12/24 Resulted 04:00 Abg W/ Co-Ox RT 08/12/24 Logged 04:00 * Market President CONS 08/11/24 Transmitted Consult Ventilator Orders RT 08/12/24 Transmitted 03:30 Urinalysis LAB 08/12/24 Logged 08:54 D5w 5% (Dextrose 5%) PHA 08/12/24 In Process W/Dexmedetomidine 09:00 Ventilator Orders RT 08/12/24 Transmitted 09:12 Basic Metabolic Panel LAB 08/13/24 Verified 04:00 Complete Blood Count LAB 08/13/24 Verified 04:00 Magnesium LAB 08/13/24 Verified 04:00 Abg W/ Co-Ox RT 08/13/24 Verified 04:00 Dietary Evaluation Review Comments: 1) If GI is assessible consider Jevity 1.2 @ 60 ml/hr x24 hrs goal rate as tolerated 2) If pt remains NPO >7 days consider TPN to meet at least 75% of estimated needs 3) Advance pt diet when medically feasible to a Cardiac/Renal Specific K2,2gmNA,low phos,60g Pro diet modified per REGIONAL SALES REPRESENTATIVE recommendations 4) Continue current plan of care Expected Outcomes/Goals: 1) Pt to receive adequate nutrition support 2) Pt diet to advance CC Plasma Assessment Blood Product Administration S: [id number] Date of Service: Aug 12, 2024 Billing Provider: HOLGER ISABEL MD Common Visit Codes: [id number] CARE 30-74 MIN DANGELO COTO RESIDENT Aug 12, 2024 17:08 HOLGER ISABEL MD Aug 13, 2024 17:14
[2024-08-12] MEDS: EPOETIN ALFA-EPBX 10,000 UNIT/1ML VIAL SC ONE (21:00)
[2024-08-13] VITALS (86 sets, daily range): BP systolic 104–158; BP diastolic 65–98; PULSE 100–125; RESP 12–40; TEMP 97.8–100.3; O2SAT 90–100
[2024-08-13 05:04] LABS: Basophils # (auto) 0 10 ^3/uL (0-0.2); Basophils % (auto) 0.6 % (0.0-2.0); Eosinophils # (auto) 0.2 10 ^3/uL (0-0.8); Eosinophils % (auto) 3.3 % (0.0-7.0); Hematocrit 25.5 % (41.0-53.0); Hemoglobin 8.7 g/dL (13.5-17.5); Lymphocytes # (auto) 0.8 10 ^3/uL (0.4-5.4); Lymphocytes % (auto) 12.5 % (10.0-50.0); Mean Corpuscular Hemoglobin 32.5 pg (28.0-32.0); Mean Corpuscular Hgb Conc. 33.9 g/dL (32.0-36.0); Mean Corpuscular Volume 95.8 fL (80.0-100.0); Monocytes # (auto) 0.6 10 ^3/uL (0-1.3); Monocytes % (auto) 9.3 % (0.0-12.0); Neutrophils # (auto) 4.9 10 ^3/uL (1.6-8.6); Neutrophils % (auto) 74.3 % (37.0-80.0); Nucleated Red Blood Cells % 0.1 %; Platelet Count (auto) 214 10^3/uL (140-450); Red Blood Cells 2.67 10^6/uL (4.5-5.90); Red Cell Distribution Width 17.5 % (11.8-14.3); White Blood Cell 6.6 10^3/uL (4.4-10.8)
[2024-08-13 05:13] LABS: Chloride 102 mmol/L (98-107); Sodium 139 mmol/L (136-145)
[2024-08-13 05:14] LABS: Anion Gap 8 (5-15); Carbon Dioxide 29 mmol/L (20-31)
[2024-08-13 05:19] LABS: BUN/Creatinine Ratio 16.8 (10.0-20.0); Blood Urea Nitrogen 38 mg/dL (9-23); Calcium 10.6 mg/dL (8.7-10.4); Glucose 115 mg/dL (74-106); Potassium 3.3 mmol/L (3.5-5.1)
[2024-08-13] MEDS: POTASSIUM CHL 20MEQ/100ML 100 ML IV ONE (06:11)
[2024-08-13 09:06] LABS: Base Excess 7.4 mmol/L (-2.0-3.0)
--- NOTE | 2024-08-13 09:29 | DVHPN2 ---
Progress Note Date Seen: Aug 13, 2024 Has the PT tested + for MRSA If YES, has PT been informed?: Yes Medical Necessity Reason Pt with a Central, PICC or Fol: Yes The following are medically ne: Central Line, Rubio Catheter Reason for rubio catheter: Strict I&O Objective vital signs Vital Sign Date Time Temp Pulse Resp B/P (MAP) Pulse Ox O2 Delivery O2 Flow Rate FiO2 08/13/24 08:31 118 20 123/69 (87) 93 30 08/13/24 08:21 100.4 08/13/24 06:00 Mechanical Ventilator+ 08/11/24 08:00 2 Total Intake and Output 08/12/24 08/12/24 08/13/24 15:00 23:00 07:00 Intake Total 273.078 ml 1054 ml 243 ml Output Total 150 ml 2200 ml Balance 273.078 ml 904 ml -1957 ml medications Current Medications Medications Dose Ordered Sig/[place] Route Start Time Stop Time Status Last Admin Dose Admin Enoxaparin Sodium 40 mg DAILY SC 06/10/24 10:00 UNV Enoxaparin Sodium 40 mg DAILY SC 06/17/24 10:00 UNV Epoetin Calin-epbx 10,000 unit TUTHSA SC 06/17/24 12:00 Hold 06/28/24 08:25 10,000 UNIT Lactulose 30 ml [id number] PRN PEG 07/01/24 10:15 07/27/24 09:15 30 ML Metoprolol Tartrate 50 mg BID PO 07/01/24 22:00 08/12/24 21:21 50 MG Clonidine HCl 0.2 mg BID PO 07/03/24 22:00 Hold 08/10/24 21:35 0.2 MG Hydralazine HCl 100 mg Q8HR PO 07/07/24 22:00 Hold 08/10/24 14:00 100 MG Heparin Sodium (Porcine) 4,000 units JACKY PRN XX 07/09/24 11:00 08/05/24 11:26 4,000 UNITS Amlodipine Besylate 10 mg DAILY PO 07/11/24 10:00 Hold 08/10/24 10:20 10 MG Acetylcysteine 200 mg Q6HR NEB 07/14/24 12:00 08/13/24 06:05 200 MG Albuterol 2.5 mg Q6HR NEB 07/14/24 12:00 08/13/24 06:05 2.5 MG Ipratropium [place] 0.5 mg Q6HR NEB 07/14/24 12:00 08/13/24 06:05 0.5 MG Acetaminophen 650 mg Q6HP PRN PO 07/22/24 19:53 08/13/24 08:21 650 MG Fentanyl 25 mcg Q72H TD 07/27/24 10:00 08/12/24 20:50 25 MCG Omeprazole 20 mg DAILY GT 07/28/24 10:00 08/12/24 09:26 20 MG Enteral Nutritional Formula 1,000 ml 60ML/HR GT 07/28/24 11:45 08/10/24 21:37 1,000 ML Lorazepam 0.25 mg Q12HP PRN PO 07/28/24 17:15 08/05/24 22:07 0.25 MG Heparin Sodium (Porcine) 5,000 units Q12HR SC 07/28/24 22:00 08/10/24 21:37 5,000 UNITS Ceftazidime/ Dextrose 1 gm/ Sodium Chloride 50 ml @ 16.667 mls/ hr HS IV 08/07/24 22:00 08/12/24 21:21 16.667 MLS/HR Norepinephrine Bitartrate 250 ml @ 3.75 mls/hr Q24H IV 08/08/24 18:45 08/10/24 17:30 11.25 MLS/HR Dexmedetomidine HCl 400 mcg/ Dextrose 100 ml @ 2.615 mls/ hr Q24H IV 08/12/24 09:00 08/12/24 09:12 2.615 MLS/HR Examination: GENERAL:Abnormal laboratory and microbiology Laboratory Tests 08/13/24 04:40 Test 08/13/24 04:40 Range/Units Serum Glucose 115 H 74-106 mg/dL Microbiology Date/Time Source Procedure Growth Status 07/24/24 18:34 Trachea Gram Stain - Final Complete 07/24/24 18:34 Respiratory Culture - Final Pseudomonas aeruginosa Complete 07/24/24 15:15 Blood Blood Culture - Final NO GROWTH AFTER 5 DAYS OF INCUBATION. 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 Acute respiratory failure advanced a chronic respiratory failure status post trach now trach to wall oxygen Septic shock resolved due to multidrug resistant organisms Peripheral artery disease Coronary artery disease Severe protein calorie malnutrition anemia due to ckd hyperkalemia hyperphosphatemia resolved HD tentative tomorrow or sunday check phos nepro high Ca noted Phoslo stopped epogen 3x a week Plan discussed with: Patient Dietary Evaluation Review Comments: 1) If GI is assessible consider Jevity 1.2 @ 60 ml/hr x24 hrs goal rate as tolerated 2) If pt remains NPO >7 days consider TPN to meet at least 75% of estimated needs 3) Advance pt diet when medically feasible to a Cardiac/Renal Specific K2,2gmNA,low phos,60g Pro diet modified per LOG YARD MANAGER recommendations 4) Continue current plan of care Expected Outcomes/Goals: 1) Pt to receive adequate nutrition support 2) Pt diet to advance CC Plasma Assessment Blood Product Administration S: [id number] ANNA ROMERO MD Aug 13, 2024 09:29
--- NOTE | 2024-08-13 14:59 | DVHPNRES ---
Progress Note Date Seen: Aug 13, 2024 Resident Creating Document: DANGELO COTO RESIDENT Has the PT tested + for MRSA If YES, has PT been informed?: Yes Medical Necessity Reason Pt with a Central, PICC or Fol: Yes The following are medically ne: Central Line, Rubio Catheter Reason for rubio catheter: Strict I&O Subjective Review of Systems pt seen and examined at bedside He comprehends but is not verbal scheduled for dialysis per schedule Objective vital signs Vital Sign Date Time Temp Pulse Resp B/P (MAP) Pulse Ox O2 Delivery O2 Flow Rate FiO2 08/13/24 14:30 106 34 134/85 (101) 96 08/13/24 14:17 40 08/13/24 14:00 98.5 98.5 08/13/24 14:00 Mechanical Ventilator+ 08/11/24 08:00 2 Total Intake and Output 08/12/24 08/12/24 08/13/24 15:00 23:00 07:00 Intake Total 273.078 ml 1054 ml 243 ml Output Total 150 ml 2200 ml Balance 273.078 ml 904 ml -1957 ml medications Current Medications Medications Dose Ordered Sig/[place] Route Start Time Stop Time Status Last Admin Dose Admin Enoxaparin Sodium 40 mg DAILY SC 06/10/24 10:00 UNV Enoxaparin Sodium 40 mg DAILY SC 06/17/24 10:00 UNV Lactulose 30 ml [id number] PRN PEG 07/01/24 10:15 07/27/24 09:15 30 ML Metoprolol Tartrate 50 mg BID PO 07/01/24 22:00 08/13/24 10:15 50 MG Clonidine HCl 0.2 mg BID PO 07/03/24 22:00 Hold 08/10/24 21:35 0.2 MG Hydralazine HCl 100 mg Q8HR PO 07/07/24 22:00 Hold 08/10/24 14:00 100 MG Heparin Sodium (Porcine) 4,000 units JACKY PRN XX 07/09/24 11:00 08/05/24 11:26 4,000 UNITS Amlodipine Besylate 10 mg DAILY PO 07/11/24 10:00 Hold 08/10/24 10:20 10 MG Acetylcysteine 200 mg Q6HR NEB 07/14/24 12:00 08/13/24 11:43 200 MG Albuterol 2.5 mg Q6HR NEB 07/14/24 12:00 08/13/24 11:43 2.5 MG Ipratropium [place] 0.5 mg Q6HR NEB 07/14/24 12:00 08/13/24 11:43 0.5 MG Acetaminophen 650 mg Q6HP PRN PO 07/22/24 19:53 08/13/24 08:21 650 MG Fentanyl 25 mcg Q72H TD 07/27/24 10:00 08/12/24 20:50 25 MCG Omeprazole 20 mg DAILY GT 07/28/24 10:00 08/13/24 10:15 20 MG Enteral Nutritional Formula 1,000 ml 60ML/HR GT 07/28/24 11:45 08/10/24 21:37 1,000 ML Lorazepam 0.25 mg Q12HP PRN PO 07/28/24 17:15 08/05/24 22:07 0.25 MG Heparin Sodium (Porcine) 5,000 units Q12HR SC 07/28/24 22:00 08/13/24 10:16 5,000 UNITS Ceftazidime/ Dextrose 1 gm/ Sodium Chloride 50 ml @ 16.667 mls/ hr HS IV 08/07/24 22:00 08/12/24 21:21 16.667 MLS/HR Norepinephrine Bitartrate 250 ml @ 3.75 mls/hr Q24H IV 08/08/24 18:45 08/10/24 17:30 11.25 MLS/HR Dexmedetomidine HCl 400 mcg/ Dextrose 100 ml @ 2.615 mls/ hr Q24H IV 08/12/24 09:00 08/12/24 09:12 2.615 MLS/HR Epoetin Calin-epbx 10,000 unit TUTHSA@2100 SC 08/14/24 21:00 Examination Examination General Appearance: Nonverbal, on trach collar, on mech vent SIMV mode Respiratory: Clear to auscultation, Normal air movement, on 6 L through Cardiovascular: Regular rate, Normal S1, Normal S2 Abdominal: Normal bowel sounds, peg tube present, suprapubic catheter present, colostomy bag Extremities: Right BKA, 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 Complete 07/18/24 22:30 Urine - Suprapubic Aspirate Urine Culture - Final Complete 06/11/24 16:06 Bronchial Washings Gram Stain - Final Complete 06/11/24 16:06 Respiratory Culture - Final Acinetobacter baumannii Pseudomonas aeruginosa Complete 05/30/24 11:45 Pleural Fluid Gram Stain - Final Complete 05/30/24 11:45 Pleural Fluid Body Fluid Culture - Final Complete Labs and/or images reviewed: Labs reviewed by me, Image(s) reviewed by me Problem List/Assessment/Plan Problem List/Assessment/Plan Assessment/plan Neurology #Sedation -off sedation # acute metabolic encephalopathy likely due to sepsis -resolving, but complete neurological examination cant be accessed as pt is non verbal # history of seizures -History of seizure during last admission (1 month back) used Keppra for 1 week Discontinued Keppra, on 06/16 EEG shows abnormal EEG recording consistent with the presence of a diffuse nonspecific encephalopathic state # history of stroke Old infarct in the right frontal lobe and right parietal occipital lobe, seen on imaging Cardiovascular # shock likely septic -resolved #Hypertension -amlodipine 10 mg daily, clonidine 0.2 mg p.o. b.i.d., hydralazine 100 mg p.o. Q HR, on hold -metoprolol 50 mg p.o. b.i.d, Respiratory # acute hypoxic respiratory failure due to pneumonia s/p tracheostomy 06/13 -albuterol p.r.n., ipratropium neb -on T collar , mech vent SIMV mode # aspiration pneumonia, Gram-positive/Gram-negative -changed to IV ceftazidime # pneumomediastinum and pneumopericardium -seen on imaging # left lower lobe atelectasis -seen on imaging #Recurrent mucus plugging -Mucomyst -repeat CXR -s/p multiple bronchoscopy #Small left pneumothorax -monitor with repeat CXR GI # hepatitis-C positive # status post PEG tube 06/15 Nephrology # FROYLAN due to hemodynamic mediated likely due to sepsis, requiring dialysis - Homer catheter placed on left internal jugular, on 06/26, removed on 07/04 - tunneled catheter placed to the right upper chest 07/04 -received dialysis as per schedule -on Bumex tablet 2 mg p.o. b.i.d., discontinued by the heart specialist # hyponatremia, improved monitor # hyperkalemia -monitor # hypomagnesemia -monitor Urology # UTI -currently on IV ceftazidime # s/p suprapubic catheter Musculoskeletal/dermatological # status post above-knee amputation - due to peripheral arterial disease # decubitus ulcer -wound care Endocrine # secondary hyperparathyroidism -likely due to FROYLAN/CKD # hypocalcemia due to FROYLAN/CKD -on oral calcium, discontinued # hypoglycemia likely due to sepsis -resolved Hematology/oncology # severe anemia requiring transfusion, anemia of chronic disease, macrocytic anemia -monitor CBC -1 unit of PRBC transfusion with Dialysis # thrombocytopenia -monitor CBC Infectious disease # septic shock -resolved -currently on ceftazidime Psychiatry #Anxiety -Ativan oral PRN LINES/DRAINS/ACCESS: ETT, intubated on 05/28/2024 and tracheostomy performed on 06/11, PEG tube placed on 06/15 IV access Left internal jugular CVC, placed on 06/26 and removed on 07/04 Right IJ hemodialysis catheter placed 07/04 Left upper PICC line Suprapubic catheter, changed on 07/14/2024 Dripps: Off Nutrition Enteral through PEG tube, nepro with carb steady DVT prophylaxis Started on heparin 5000 subc q.12h, on hold considering severe anemia Peptic ulcer disease prophylaxis Omeprazole 20 mg GT daily Bowel regimen Lactulose 30 mg q.12h Code status discussed with the family for greater than 21 minutes, full code Case discussion with Dr. isabel Critical care excluding procedures : 63 min food services manager consulted for transfer to LTACH facility Plan discussed with: Other My Orders My Orders Orders - DANGELO COTO RESIDENT Procedure Category Date Status Time Ventilator Orders RT 08/12/24 Transmitted 09:12 Abg W/ Co-Ox RT 08/13/24 Logged 04:00 Dietary Evaluation Review Comments: 1) If GI is assessible consider Jevity 1.2 @ 60 ml/hr x24 hrs goal rate as tolerated 2) If pt remains NPO >7 days consider TPN to meet at least 75% of estimated needs 3) Advance pt diet when medically feasible to a Cardiac/Renal Specific K2,2gmNA,low phos,60g Pro diet modified per [employer] SH[employer] MANAGER recommendations 4) Continue current plan of care Expected Outcomes/Goals: 1) Pt to receive adequate nutrition support 2) Pt diet to advance CC Plasma Assessment Blood Product Administration S: [id number] Date of Service: Aug 13, 2024 Billing Provider: HOLGER ISABEL MD Common Visit Codes: 42422-[id number] CARE 30-74 MIN DANGELO COTO RESIDENT Aug 13, 2024 14:59 HOLGER ISABEL MD Aug 14, 2024 12:59
[2024-08-13] MEDS: fentaNYL 50MCG/HR 50 MCG/HR PAT TD SCH (22:28)
[2024-08-14] VITALS (58 sets, daily range): BP systolic 87–122; BP diastolic 51–75; PULSE 95–113; RESP 12–32; TEMP 98.4–99.9; O2SAT 92–98
--- NOTE | 2024-08-14 05:35 | DVH ---
EXAM: XR Chest, 1 View CLINICAL INDICATION: mech vent TECHNIQUE: Frontal view of the chest. COMPARISON: XY CHEST PORTABLE on DOS: 08/12/24, XY CHEST PORTABLE on DOS: 08/10/24, XY CHEST PORTABLE on DOS: 08/08/24, XY CHEST PORTABLE on DOS: 08/08/24, XY CHEST PORTABLE on DOS: 08/08/24 FINDINGS: LUNGS AND PLEURAL SPACES: Mild CHF. Left basilar atelectasis or pneumonia. No pneumothorax. HEART: Unremarkable. No cardiomegaly. MEDIASTINUM: Unremarkable. Normal mediastinal contour. BONES/JOINTS: Unremarkable. No acute fracture. TUBES, LINES AND DEVICES: Right internal jugular central venous catheter tip in the superior vena c clementina. Tracheostomy tube in satisfactory position. OTHER FINDINGS: . Left IJ with the distal tip in SVC. IMPRESSION: Mild CHF. Left basilar atelectasis or pneumonia.
[2024-08-14 06:40] LABS: Basophils # (auto) 0 10 ^3/uL (0-0.2); Basophils % (auto) 0.4 % (0.0-2.0); Eosinophils # (auto) 0.2 10 ^3/uL (0-0.8); Eosinophils % (auto) 2.5 % (0.0-7.0); Hematocrit 26.6 % (41.0-53.0); Hemoglobin 8.9 g/dL (13.5-17.5); Lymphocytes # (auto) 0.8 10 ^3/uL (0.4-5.4); Lymphocytes % (auto) 10.3 % (10.0-50.0); Mean Corpuscular Hemoglobin 32.2 pg (28.0-32.0); Mean Corpuscular Hgb Conc. 33.5 g/dL (32.0-36.0); Mean Corpuscular Volume 96.3 fL (80.0-100.0); Monocytes # (auto) 0.6 10 ^3/uL (0-1.3); Monocytes % (auto) 7.7 % (0.0-12.0); Neutrophils # (auto) 6.2 10 ^3/uL (1.6-8.6); Neutrophils % (auto) 79.1 % (37.0-80.0); Nucleated Red Blood Cells % 0.1 %; Platelet Count (auto) 228 10^3/uL (140-450); Red Blood Cells 2.77 10^6/uL (4.5-5.90); Red Cell Distribution Width 17.5 % (11.8-14.3); White Blood Cell 7.9 10^3/uL (4.4-10.8)
[2024-08-14 06:46] LABS: Chloride 101 mmol/L (98-107); Potassium 3.6 mmol/L (3.5-5.1); Sodium 143 mmol/L (136-145)
[2024-08-14 06:47] LABS: Anion Gap 11 (5-15); Carbon Dioxide 31 mmol/L (20-31)
[2024-08-14 06:50] LABS: Calcium 11.7 mg/dL (8.7-10.4)
[2024-08-14 06:52] LABS: BUN/Creatinine Ratio 19.9 (10.0-20.0)
[2024-08-14 06:53] LABS: Magnesium 2.2 mg/dL (1.6-2.6)
[2024-08-14 06:55] LABS: Blood Urea Nitrogen 65 mg/dL (9-23); Glucose 126 mg/dL (74-106); Phosphorus 1.4 mg/dL (2.4-5.1)
[2024-08-14 08:29] LABS: Base Excess 3.6 mmol/L (-2.0-3.0)
--- NOTE | 2024-08-14 14:19 | DVHPN2 ---
Progress Note Date Seen: Aug 14, 2024 Has the PT tested + for MRSA If YES, has PT been informed?: Yes Medical Necessity Reason Pt with a Central, PICC or Fol: Yes The following are medically ne: Central Line, Rubio Catheter Reason for rubio catheter: Strict I&O Subjective Review of Systems: RESPIRATORY:Abnormal Objective vital signs Vital Sign Date Time Temp Pulse Resp B/P (MAP) Pulse Ox O2 Delivery O2 Flow Rate FiO2 08/14/24 12:33 96 31 111/70 (84) 95 40 08/14/24 12:00 99.3 99.3 08/14/24 10:00 Mechanical Ventilator+ Total Intake and Output 08/13/24 08/13/24 08/14/24 15:00 23:00 07:00 Intake Total 767 ml 770 ml Output Total 60 ml 0 ml Balance 707 ml 770 ml medications Current Medications Medications Dose Ordered Sig/[place] Route Start Time Stop Time Status Last Admin Dose Admin Enoxaparin Sodium 40 mg DAILY SC 06/10/24 10:00 UNV Enoxaparin Sodium 40 mg DAILY SC 06/17/24 10:00 UNV Lactulose 30 ml [id number] PRN PEG 07/01/24 10:15 07/27/24 09:15 30 ML Metoprolol Tartrate 50 mg BID PO 07/01/24 22:00 08/14/24 09:50 50 MG Heparin Sodium (Porcine) 4,000 units JCAKY PRN XX 07/09/24 11:00 08/05/24 11:26 4,000 UNITS Acetylcysteine 200 mg Q6HR NEB 07/14/24 12:00 08/14/24 12:33 200 MG Albuterol 2.5 mg Q6HR NEB 07/14/24 12:00 08/14/24 12:33 2.5 MG Ipratropium [place] 0.5 mg Q6HR NEB 07/14/24 12:00 08/14/24 12:33 0.5 MG Acetaminophen 650 mg Q6HP PRN PO 07/22/24 19:53 08/13/24 08:21 650 MG Omeprazole 20 mg DAILY GT 07/28/24 10:00 08/14/24 09:54 20 MG Enteral Nutritional Formula 1,000 ml 60ML/HR GT 07/28/24 11:45 08/14/24 13:22 1,000 ML Lorazepam 0.25 mg Q12HP PRN PO 07/28/24 17:15 08/05/24 22:07 0.25 MG Heparin Sodium (Porcine) 5,000 units Q12HR SC 07/28/24 22:00 08/14/24 09:52 5,000 UNITS Ceftazidime/ Dextrose 1 gm/ Sodium Chloride 50 ml @ 16.667 mls/ hr HS IV 08/07/24 22:00 08/13/24 21:59 16.667 MLS/HR Norepinephrine Bitartrate 250 ml @ 3.75 mls/hr Q24H IV 08/08/24 18:45 08/10/24 17:30 11.25 MLS/HR Dexmedetomidine HCl 400 mcg/ Dextrose 100 ml @ 2.615 mls/ hr Q24H IV 08/12/24 09:00 08/12/24 09:12 2.615 MLS/HR Epoetin Calin-epbx 10,000 unit TUTHSA@2100 SC 08/14/24 21:00 Fentanyl 50 mcg Q72H TD 08/13/24 21:00 08/13/24 22:28 50 MCG Examination: GENERAL:Abnormal, LUNGS:Abnormal, CVS:Abnormal laboratory and microbiology Laboratory Tests 08/14/24 06:10 Test 08/14/24 06:10 Range/Units Serum Glucose 126 H 74-106 mg/dL Microbiology Date/Time Source Procedure Growth Status 07/24/24 18:34 Trachea Gram Stain - Final Complete 07/24/24 18:34 Respiratory Culture - Final Pseudomonas aeruginosa Complete 07/24/24 15:15 Blood Blood Culture - Final NO GROWTH AFTER 5 DAYS OF INCUBATION. 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 Acute respiratory failure advanced a chronic respiratory failure status post trach now trach to wall oxygen Septic shock resolved due to multidrug resistant organisms Peripheral artery disease Coronary artery disease Severe protein calorie malnutrition anemia due to ckd hyperkalemia hyperphosphatemia resolved HD today, fluid removal as tolerated check phos, no phos binders at this time nepro high Ca noted Phoslo stopped epogen 3x a week Plan discussed with: Patient My Orders My Orders Orders - ANNA ROMERO MD Procedure Category Date Status Time Hemodialysis Orders ORDERS 08/14/24 Transmitted 07:00 Dialysis Nursing SUZAN 08/14/24 In Process Message 07:00 Document Fluid Input SUZAN 08/14/24 In Process And Outpu 07:00 Dietary Evaluation Review Comments: 1) If GI is assessible consider Jevity 1.2 @ 60 ml/hr x24 hrs goal rate as tolerated 2) If pt remains NPO >7 days consider TPN to meet at least 75% of estimated needs 3) Advance pt diet when medically feasible to a Cardiac/Renal Specific K2,2gmNA,low phos,60g Pro diet modified per SEWING DEPARTMENT SUPERVISOR recommendations 4) Continue current plan of care Expected Outcomes/Goals: 1) Pt to receive adequate nutrition support 2) Pt diet to advance CC Plasma Assessment Blood Product Administration S: [id number] ANNA ROMERO MD Aug 14, 2024 14:19
[2024-08-14] MEDS: ALBUMIN 25% 100 ML IV ONE ×3 (14:55→21:56)
--- NOTE | 2024-08-14 18:14 | DVHPNRES ---
Progress Note Date Seen: Aug 14, 2024 Resident Creating Document: DANGELO COTO RESIDENT Has the PT tested + for MRSA If YES, has PT been informed?: Yes Medical Necessity Reason Pt with a Central, PICC or Fol: Yes The following are medically ne: Central Line, Rubio Catheter Reason for rubio catheter: Strict I&O Subjective Review of Systems pt seen and examined at bedside He comprehends but is not verbal scheduled for dialysis per schedule Objective vital signs Vital Sign Date Time Temp Pulse Resp B/P (MAP) Pulse Ox O2 Delivery O2 Flow Rate FiO2 08/14/24 16:17 96 31 111/70 (84) 95 40 08/14/24 16:00 98.4 98.4 08/14/24 14:00 Mechanical Ventilator+ Total Intake and Output 08/13/24 08/13/24 08/14/24 15:00 23:00 07:00 Intake Total 767 ml 770 ml Output Total 60 ml 0 ml Balance 707 ml 770 ml medications Current Medications Medications Dose Ordered Sig/[place] Route Start Time Stop Time Status Last Admin Dose Admin Enoxaparin Sodium 40 mg DAILY SC 06/10/24 10:00 UNV Enoxaparin Sodium 40 mg DAILY SC 06/17/24 10:00 UNV Lactulose 30 ml [id number] PRN PEG 07/01/24 10:15 07/27/24 09:15 30 ML Metoprolol Tartrate 50 mg BID PO 07/01/24 22:00 08/14/24 09:50 50 MG Heparin Sodium (Porcine) 4,000 units JACKY PRN XX 07/09/24 11:00 08/05/24 11:26 4,000 UNITS Acetylcysteine 200 mg Q6HR NEB 07/14/24 12:00 08/14/24 12:33 200 MG Albuterol 2.5 mg Q6HR NEB 07/14/24 12:00 08/14/24 12:33 2.5 MG Ipratropium [place] 0.5 mg Q6HR NEB 07/14/24 12:00 08/14/24 12:33 0.5 MG Acetaminophen 650 mg Q6HP PRN PO 07/22/24 19:53 08/13/24 08:21 650 MG Omeprazole 20 mg DAILY GT 07/28/24 10:00 08/14/24 09:54 20 MG Enteral Nutritional Formula 1,000 ml 60ML/HR GT 07/28/24 11:45 08/14/24 13:22 1,000 ML Lorazepam 0.25 mg Q12HP PRN PO 07/28/24 17:15 08/05/24 22:07 0.25 MG Heparin Sodium (Porcine) 5,000 units Q12HR SC 07/28/24 22:00 08/14/24 09:52 5,000 UNITS Ceftazidime/ Dextrose 1 gm/ Sodium Chloride 50 ml @ 16.667 mls/ hr HS IV 08/07/24 22:00 08/13/24 21:59 16.667 MLS/HR Norepinephrine Bitartrate 250 ml @ 3.75 mls/hr Q24H IV 08/08/24 18:45 08/10/24 17:30 11.25 MLS/HR Dexmedetomidine HCl 400 mcg/ Dextrose 100 ml @ 2.615 mls/ hr Q24H IV 08/12/24 09:00 08/12/24 09:12 2.615 MLS/HR Epoetin Calin-epbx 10,000 unit TUTHSA@2100 SC 08/14/24 21:00 Fentanyl 50 mcg Q72H TD 08/13/24 21:00 08/13/24 22:28 50 MCG Examination Examination General Appearance: Nonverbal, on trach collar, on mech vent SIMV mode Respiratory: Clear to auscultation, Normal air movement, on 6 L through Cardiovascular: Regular rate, Normal S1, Normal S2 Abdominal: Normal bowel sounds, peg tube present, suprapubic catheter present, colostomy bag Extremities: Right BKA, 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 Complete 07/18/24 22:30 Urine - Suprapubic Aspirate Urine Culture - Final Complete 06/11/24 16:06 Bronchial Washings Gram Stain - Final Complete 06/11/24 16:06 Respiratory Culture - Final Acinetobacter baumannii Pseudomonas aeruginosa Complete 05/30/24 11:45 Pleural Fluid Gram Stain - Final Complete 05/30/24 11:45 Pleural Fluid Body Fluid Culture - Final Complete Labs and/or images reviewed: Labs reviewed by me, Image(s) reviewed by me Problem List/Assessment/Plan Problem List/Assessment/Plan Assessment/plan Neurology #Sedation -off sedation # acute metabolic encephalopathy likely due to sepsis -resolving, but complete neurological examination cant be accessed as pt is non verbal # history of seizures -History of seizure during last admission (1 month back) used Keppra for 1 week Discontinued Keppra, on 06/16 EEG shows abnormal EEG recording consistent with the presence of a diffuse nonspecific encephalopathic state # history of stroke Old infarct in the right frontal lobe and right parietal occipital lobe, seen on imaging Cardiovascular # shock likely septic -resolved #Hypertension -amlodipine 10 mg daily, clonidine 0.2 mg p.o. b.i.d., hydralazine 100 mg p.o. Q HR, on hold -metoprolol 50 mg p.o. b.i.d, Respiratory # acute hypoxic respiratory failure due to pneumonia s/p tracheostomy 06/13 -albuterol p.r.n., ipratropium neb -on T collar , mech vent SIMV mode # aspiration pneumonia, Gram-positive/Gram-negative -changed to IV ceftazidime # pneumomediastinum and pneumopericardium -seen on imaging # left lower lobe atelectasis -seen on imaging #Recurrent mucus plugging -Mucomyst -repeat CXR -s/p multiple bronchoscopy #Small left pneumothorax -monitor with repeat CXR GI # hepatitis-C positive # status post PEG tube 06/15 Nephrology # FROYLAN due to hemodynamic mediated likely due to sepsis, requiring dialysis - Homer catheter placed on left internal jugular, on 06/26, removed on 07/04 - tunneled catheter placed to the right upper chest 07/04 -received dialysis as per schedule -on Bumex tablet 2 mg p.o. b.i.d., discontinued by the working supervisor # hyponatremia, improved monitor # hyperkalemia -monitor # hypomagnesemia -monitor #Hypophosphatemia -corrected Urology # UTI -currently on IV ceftazidime # s/p suprapubic catheter Musculoskeletal/dermatological # status post above-knee amputation - due to peripheral arterial disease # decubitus ulcer -wound care Endocrine # secondary hyperparathyroidism -likely due to FROYLAN/CKD # hypocalcemia due to FROYLAN/CKD -on oral calcium, discontinued # hypoglycemia likely due to sepsis -resolved Hematology/oncology # severe anemia requiring transfusion, anemia of chronic disease, macrocytic anemia -monitor CBC -1 unit of PRBC transfusion with Dialysis # thrombocytopenia -monitor CBC Infectious disease # septic shock -resolved -currently on ceftazidime Psychiatry #Anxiety -Ativan oral PRN LINES/DRAINS/ACCESS: ETT, intubated on 05/28/2024 and tracheostomy performed on 06/11, PEG tube placed on 06/15 IV access Left internal jugular CVC, placed on 06/26 and removed on 07/04 Right IJ hemodialysis catheter placed 07/04 Left upper PICC line Suprapubic catheter, changed on 07/14/2024 [place]: Off Nutrition Enteral through PEG tube, nepro with carb steady DVT prophylaxis Started on heparin 5000 subc q.12h, on hold considering severe anemia Peptic ulcer disease prophylaxis Omeprazole 20 mg GT daily Bowel regimen Lactulose 30 mg q.12h Code status discussed with the family for greater than 21 minutes, full code Case discussion with Dr. isabel Critical care excluding procedures : 61 min financial services director consulted for transfer to LTACH facility Plan discussed with: Other My Orders My Orders Orders - DANGELO COTO RESIDENT Procedure Category Date Status Time Chest Portable XY 08/14/24 Resulted 04:00 Abg W/ Co-Ox RT 08/14/24 Logged 04:00 Fentanyl 50mcg/Hr PHA 08/13/24 In Process (Duragesic 50mcg/Hr) 21:00 Dietary Evaluation Review Comments: 1) If GI is assessible consider Jevity 1.2 @ 60 ml/hr x24 hrs goal rate as tolerated 2) If pt remains NPO >7 days consider TPN to meet at least 75% of estimated needs 3) Advance pt diet when medically feasible to a Cardiac/Renal Specific K2,2gmNA,low phos,60g Pro diet modified per GRINDER AND PLATER recommendations 4) Continue current plan of care Expected Outcomes/Goals: 1) Pt to receive adequate nutrition support 2) Pt diet to advance CC Plasma Assessment Blood Product Administration S: [id number] Date of Service: Aug 14, 2024 Billing Provider: HOLGER ISABEL MD Common Visit Codes: [id number] CARE 30-74 MIN DANGELO COTO RESIDENT Aug 14, 2024 18:14 HOLGER ISABEL MD Aug 17, 2024 15:38
[2024-08-14] MEDS: SODIUM CHL 0.9% 1000 ML BAG XX ONE (21:53)
[2024-08-14] MEDS: SODIUM PHOSPHATES 20 MEQ in SODIUM CHL 0.9% 100 ML IV ONE (22:48)
[2024-08-14] MEDS: EPOETIN ALFA-EPBX 10,000 UNIT/1ML VIAL SC SCH (23:01)
[2024-08-15] VITALS (65 sets, daily range): BP systolic 84–134; BP diastolic 57–82; PULSE 94–119; RESP 14–41; TEMP 98.9–100.9; O2SAT 92–100
[2024-08-15 05:20] LABS: Basophils # (auto) 0 10 ^3/uL (0-0.2); Basophils % (auto) 0.2 % (0.0-2.0); Eosinophils # (auto) 0.3 10 ^3/uL (0-0.8); Hematocrit 24.1 % (41.0-53.0); Hemoglobin 8.1 g/dL (13.5-17.5); Lymphocytes # (auto) 0.8 10 ^3/uL (0.4-5.4); Lymphocytes % (auto) 10.4 % (10.0-50.0); Mean Corpuscular Hemoglobin 32.4 pg (28.0-32.0); Mean Corpuscular Hgb Conc. 33.5 g/dL (32.0-36.0); Mean Corpuscular Volume 96.7 fL (80.0-100.0); Monocytes # (auto) 0.6 10 ^3/uL (0-1.3); Monocytes % (auto) 7.7 % (0.0-12.0); Neutrophils # (auto) 6.1 10 ^3/uL (1.6-8.6); Neutrophils % (auto) 77.7 % (37.0-80.0); Nucleated Red Blood Cells % 0.2 %; Platelet Count (auto) 199 10^3/uL (140-450); Red Blood Cells 2.49 10^6/uL (4.5-5.90); Red Cell Distribution Width 17.6 % (11.8-14.3); White Blood Cell 7.9 10^3/uL (4.4-10.8)
[2024-08-15 05:28] LABS: Chloride 103 mmol/L (98-107); Sodium 143 mmol/L (136-145)
[2024-08-15 05:29] LABS: Anion Gap 9 (5-15); Carbon Dioxide 31 mmol/L (20-31)
[2024-08-15 05:34] LABS: Glucose 102 mg/dL (74-106)
[2024-08-15 05:40] LABS: Blood Urea Nitrogen 43 mg/dL (9-23); Phosphorus 0.4 mg/dL (2.4-5.1); Potassium 3.4 mmol/L (3.5-5.1)
[2024-08-15] MEDS: POTASSIUM CHL 20MEQ/100ML 100 ML IV ONE (08:40)
[2024-08-15 09:46] LABS: Base Excess 6.6 mmol/L (-2.0-3.0)
[2024-08-15] MEDS: SODIUM PHOSPHATES 24 MEQ in SODIUM CHL 0.9% 100 ML IV ONE (10:16)
--- NOTE | 2024-08-15 18:26 | DVHPN2 ---
Progress Note Date Seen: Aug 15, 2024 Has the PT tested + for MRSA If YES, has PT been informed?: Yes Medical Necessity Reason Pt with a Central, PICC or Fol: Yes The following are medically ne: Central Line, Rubio Catheter Reason for rubio catheter: Strict I&O Subjective Patient reports: No new complaints Objective vital signs Vital Sign Date Time Temp Pulse Resp B/P (MAP) Pulse Ox O2 Delivery O2 Flow Rate FiO2 08/15/24 16:40 104 34 134/74 (94) 95 40 08/15/24 12:00 98.9 98.9 08/15/24 11:46 Mechanical Ventilator+ Total Intake and Output 08/14/24 08/14/24 08/15/24 14:59 22:59 06:59 Intake Total 100 ml 875.00 ml Output Total 0 ml 10 ml Balance 100 ml 865.00 ml medications Current Medications Medications Dose Ordered Sig/[place] Route Start Time Stop Time Status Last Admin Dose Admin Enoxaparin Sodium 40 mg DAILY SC 06/10/24 10:00 UNV Enoxaparin Sodium 40 mg DAILY SC 06/17/24 10:00 UNV Lactulose 30 ml [id number] PRN PEG 07/01/24 10:15 07/27/24 09:15 30 ML Metoprolol Tartrate 50 mg BID PO 07/01/24 22:00 08/15/24 09:07 50 MG Heparin Sodium (Porcine) 4,000 units JACKY PRN XX 07/09/24 11:00 08/05/24 11:26 4,000 UNITS Acetylcysteine 200 mg Q6HR NEB 07/14/24 12:00 08/15/24 11:59 200 MG Albuterol 2.5 mg Q6HR NEB 07/14/24 12:00 08/15/24 11:58 2.5 MG Ipratropium [place] 0.5 mg Q6HR NEB 07/14/24 12:00 08/15/24 11:59 0.5 MG Acetaminophen 650 mg Q6HP PRN PO 07/22/24 19:53 08/13/24 08:21 650 MG Omeprazole 20 mg DAILY GT 07/28/24 10:00 08/15/24 09:07 20 MG Enteral Nutritional Formula 1,000 ml 60ML/HR GT 07/28/24 11:45 08/14/24 13:22 1,000 ML Lorazepam 0.25 mg Q12HP PRN PO 07/28/24 17:15 08/05/24 22:07 0.25 MG Heparin Sodium (Porcine) 5,000 units Q12HR SC 07/28/24 22:00 08/15/24 09:08 5,000 UNITS Ceftazidime/ Dextrose 1 gm/ Sodium Chloride 50 ml @ 16.667 mls/ hr HS IV 08/07/24 22:00 08/14/24 22:44 16.667 MLS/HR Norepinephrine Bitartrate 250 ml @ 3.75 mls/hr Q24H IV 08/08/24 18:45 08/10/24 17:30 11.25 MLS/HR Dexmedetomidine HCl 400 mcg/ Dextrose 100 ml @ 2.615 mls/ hr Q24H IV 08/12/24 09:00 08/12/24 09:12 2.615 MLS/HR Epoetin Calin-epbx 10,000 unit TUTHSA@2100 SC 08/14/24 21:00 08/14/24 23:01 10,000 UNIT Fentanyl 50 mcg Q72H TD 08/13/24 21:00 08/13/24 22:28 50 MCG Examination: GENERAL:Abnormal, LUNGS:Abnormal laboratory and microbiology Laboratory Tests 08/15/24 04:47 Test 08/15/24 04:47 Range/Units Serum Glucose 102 74-106 mg/dL Microbiology Date/Time Source Procedure Growth Status 07/24/24 18:34 Trachea Gram Stain - Final Complete 07/24/24 18:34 Respiratory Culture - Final Pseudomonas aeruginosa Complete 07/24/24 15:15 Blood Blood Culture - Final NO GROWTH AFTER 5 DAYS OF INCUBATION. 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 Acute respiratory failure advanced a chronic respiratory failure status post trach now trach to wall oxygen Septic shock resolved due to multidrug resistant organisms Peripheral artery disease Coronary artery disease Severe protein calorie malnutrition anemia due to ckd hyperkalemia hyperphosphatemia resolved HD tomorrow check phos, no phos binders at this time nepro high Ca noted Phoslo stopped epogen 3x a week Plan discussed with: Patient Dietary Evaluation Review Comments: 1) If GI is assessible consider Jevity 1.2 @ 60 ml/hr x24 hrs goal rate as tolerated 2) If pt remains NPO >7 days consider TPN to meet at least 75% of estimated needs 3) Advance pt diet when medically feasible to a Cardiac/Renal Specific K2,2gmNA,low phos,60g Pro diet modified per BAIT PAINTER recommendations 4) Continue current plan of care Expected Outcomes/Goals: 1) Pt to receive adequate nutrition support 2) Pt diet to advance CC Plasma Assessment Blood Product Administration S: [id number] ANNA ROMERO MD Aug 15, 2024 18:26
--- NOTE | 2024-08-15 18:59 | DVHPNRES ---
Progress Note Date Seen: Aug 15, 2024 Resident Creating Document: DANGELO COTO RESIDENT Has the PT tested + for MRSA If YES, has PT been informed?: Yes Medical Necessity Reason Pt with a Central, PICC or Fol: Yes The following are medically ne: Central Line, Rubio Catheter Reason for rubio catheter: Strict I&O Subjective Review of Systems pt seen and examined at bedside He comprehends but is not verbal scheduled for dialysis per schedule Objective vital signs Vital Sign Date Time Temp Pulse Resp B/P (MAP) Pulse Ox O2 Delivery O2 Flow Rate FiO2 08/15/24 18:39 106 32 118/69 (85) 95 40 08/15/24 18:00 Mechanical Ventilator+ 08/15/24 12:00 98.9 98.9 Total Intake and Output 08/14/24 08/14/24 08/15/24 15:00 23:00 07:00 Intake Total 100 ml 875.00 ml Output Total 0 ml 10 ml Balance 100 ml 0 ml 865.00 ml medications Current Medications Medications Dose Ordered Sig/[place] Route Start Time Stop Time Status Last Admin Dose Admin Enoxaparin Sodium 40 mg DAILY SC 06/10/24 10:00 UNV Enoxaparin Sodium 40 mg DAILY SC 06/17/24 10:00 UNV Lactulose 30 ml [id number] PRN PEG 07/01/24 10:15 07/27/24 09:15 30 ML Metoprolol Tartrate 50 mg BID PO 07/01/24 22:00 08/15/24 09:07 50 MG Heparin Sodium (Porcine) 4,000 units JACKY PRN XX 07/09/24 11:00 08/05/24 11:26 4,000 UNITS Acetylcysteine 200 mg Q6HR NEB 07/14/24 12:00 08/15/24 18:39 200 MG Albuterol 2.5 mg Q6HR NEB 07/14/24 12:00 08/15/24 18:39 2.5 MG Ipratropium [place] 0.5 mg Q6HR NEB 07/14/24 12:00 08/15/24 18:49 0.5 MG Acetaminophen 650 mg Q6HP PRN PO 07/22/24 19:53 08/13/24 08:21 650 MG Omeprazole 20 mg DAILY GT 07/28/24 10:00 08/15/24 09:07 20 MG Enteral Nutritional Formula 1,000 ml 60ML/HR GT 07/28/24 11:45 08/14/24 13:22 1,000 ML Lorazepam 0.25 mg Q12HP PRN PO 07/28/24 17:15 08/05/24 22:07 0.25 MG Heparin Sodium (Porcine) 5,000 units Q12HR SC 07/28/24 22:00 08/15/24 09:08 5,000 UNITS Ceftazidime/ Dextrose 1 gm/ Sodium Chloride 50 ml @ 16.667 mls/ hr HS IV 08/07/24 22:00 08/14/24 22:44 16.667 MLS/HR Norepinephrine Bitartrate 250 ml @ 3.75 mls/hr Q24H IV 08/08/24 18:45 08/10/24 17:30 11.25 MLS/HR Dexmedetomidine HCl 400 mcg/ Dextrose 100 ml @ 2.615 mls/ hr Q24H IV 08/12/24 09:00 08/12/24 09:12 2.615 MLS/HR Epoetin Calin-epbx 10,000 unit TUTHSA@2100 SC 08/14/24 21:00 08/14/24 23:01 10,000 UNIT Fentanyl 50 mcg Q72H TD 08/13/24 21:00 08/13/24 22:28 50 MCG Examination Examination General Appearance: Nonverbal, on trach collar, on mech vent SIMV mode Respiratory: Clear to auscultation, Normal air movement, on 6 L through Cardiovascular: Regular rate, Normal S1, Normal S2 Abdominal: Normal bowel sounds, peg tube present, suprapubic catheter present, colostomy bag Extremities: Right BKA, 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 Complete 07/18/24 22:30 Urine - Suprapubic Aspirate Urine Culture - Final Complete 06/11/24 16:06 Bronchial Washings Gram Stain - Final Complete 06/11/24 16:06 Respiratory Culture - Final Acinetobacter baumannii Pseudomonas aeruginosa Complete 05/30/24 11:45 Pleural Fluid Gram Stain - Final Complete 05/30/24 11:45 Pleural Fluid Body Fluid Culture - Final Complete Labs and/or images reviewed: Labs reviewed by me, Image(s) reviewed by me Problem List/Assessment/Plan Problem List/Assessment/Plan Assessment/plan Neurology #Sedation -off sedation # acute metabolic encephalopathy likely due to sepsis -resolving, but complete neurological examination cant be accessed as pt is non verbal # history of seizures -History of seizure during last admission (1 month back) used Keppra for 1 week Discontinued Keppra, on 06/16 EEG shows abnormal EEG recording consistent with the presence of a diffuse nonspecific encephalopathic state # history of stroke Old infarct in the right frontal lobe and right parietal occipital lobe, seen on imaging Cardiovascular # shock likely septic -resolved #Hypertension -amlodipine 10 mg daily, clonidine 0.2 mg p.o. b.i.d., hydralazine 100 mg p.o. Q HR, on hold -metoprolol 50 mg p.o. b.i.d, Respiratory # acute hypoxic respiratory failure due to pneumonia s/p tracheostomy 06/13 -albuterol p.r.n., ipratropium neb -on T collar , mech vent SIMV mode # aspiration pneumonia, Gram-positive/Gram-negative -changed to IV ceftazidime # pneumomediastinum and pneumopericardium -seen on imaging # left lower lobe atelectasis -seen on imaging #Recurrent mucus plugging -Mucomyst -repeat CXR -s/p multiple bronchoscopy #Small left pneumothorax -monitor with repeat CXR GI # hepatitis-C positive # status post PEG tube 06/15 Nephrology # FROYLAN due to hemodynamic mediated likely due to sepsis, requiring dialysis - Homer catheter placed on left internal jugular, on 06/26, removed on 07/04 - tunneled catheter placed to the right upper chest 07/04 -received dialysis as per schedule -on Bumex tablet 2 mg p.o. b.i.d., discontinued by the striper machine # hyponatremia, improved monitor # hyperkalemia -monitor # hypomagnesemia -monitor #Hypophosphatemia -corrected Urology # UTI -currently on IV ceftazidime # s/p suprapubic catheter Musculoskeletal/dermatological # status post above-knee amputation - due to peripheral arterial disease # decubitus ulcer -wound care Endocrine # secondary hyperparathyroidism -likely due to FROYLAN/CKD # hypocalcemia due to FROYLAN/CKD -on oral calcium, discontinued # hypoglycemia likely due to sepsis -resolved Hematology/oncology # severe anemia requiring transfusion, anemia of chronic disease, macrocytic anemia -monitor CBC -1 unit of PRBC transfusion with Dialysis # thrombocytopenia -monitor CBC Infectious disease # septic shock -resolved -currently on ceftazidime Psychiatry #Anxiety -Ativan oral PRN LINES/DRAINS/ACCESS: ETT, intubated on 05/28/2024 and tracheostomy performed on 06/11, PEG tube placed on 06/15 IV access Left internal jugular CVC, placed on 06/26 and removed on 07/04 Right IJ hemodialysis catheter placed 07/04 Left upper PICC line Suprapubic catheter, changed on 07/14/2024 [place]: Off Nutrition Enteral through PEG tube, nepro with carb steady DVT prophylaxis Started on heparin 5000 subc q.12h, on hold considering severe anemia Peptic ulcer disease prophylaxis Omeprazole 20 mg GT daily Bowel regimen Lactulose 30 mg q.12h Code status discussed with the family for greater than 21 minutes, full code Case discussion with Dr. sanchez Critical care excluding procedures : 61 min marketing services coordinator consulted for transfer to LTACH facility Plan discussed with: Other My Orders My Orders Orders - DANGELO COTO RESIDENT Procedure Category Date Status Time Abg W/ Co-Ox RT 08/15/24 Logged 06:00 Dietary Evaluation Review Comments: 1) If GI is assessible consider Jevity 1.2 @ 60 ml/hr x24 hrs goal rate as tolerated 2) If pt remains NPO >7 days consider TPN to meet at least 75% of estimated needs 3) Advance pt diet when medically feasible to a Cardiac/Renal Specific K2,2gmNA,low phos,60g Pro diet modified per MARKETING COMMUNICATION MANAGER recommendations 4) Continue current plan of care Expected Outcomes/Goals: 1) Pt to receive adequate nutrition support 2) Pt diet to advance CC Plasma Assessment Blood Product Administration S: [id number] Date of Service: Aug 15, 2024 Billing Provider: CARLENE OSUNA MD Common Visit Codes: [id number] CARE 30-74 MIN DANGELO COTO RESIDENT Aug 15, 2024 18:59 CARLENE OSUNA MD Aug 18, 2024 09:02
[2024-08-16] VITALS (96 sets, daily range): BP systolic 66–133; BP diastolic 42–82; PULSE 97–120; RESP 13–45; TEMP 98.1–101.1; O2SAT 89–99
[2024-08-16 05:41] LABS: Basophils # (auto) 0.1 10 ^3/uL (0-0.2); Basophils % (auto) 0.6 % (0.0-2.0); Eosinophils # (auto) 0.5 10 ^3/uL (0-0.8); Eosinophils % (auto) 4.4 % (0.0-7.0); Hematocrit 28.8 % (41.0-53.0); Hemoglobin 9.4 g/dL (13.5-17.5); Lymphocytes # (auto) 1.3 10 ^3/uL (0.4-5.4); Mean Corpuscular Hgb Conc. 32.6 g/dL (32.0-36.0); Mean Corpuscular Volume 98.1 fL (80.0-100.0); Monocytes # (auto) 0.7 10 ^3/uL (0-1.3); Monocytes % (auto) 6.7 % (0.0-12.0); Neutrophils # (auto) 8.1 10 ^3/uL (1.6-8.6); Neutrophils % (auto) 76.3 % (37.0-80.0); Nucleated Red Blood Cells % 0.1 %; Platelet Count (auto) 231 10^3/uL (140-450); Red Blood Cells 2.93 10^6/uL (4.5-5.90); Red Cell Distribution Width 17.9 % (11.8-14.3); White Blood Cell 10.7 10^3/uL (4.4-10.8)
[2024-08-16 05:55] LABS: Anion Gap 12 (5-15); Carbon Dioxide 29 mmol/L (20-31); Chloride 103 mmol/L (98-107); Potassium 4.7 mmol/L (3.5-5.1); Sodium 144 mmol/L (136-145)
--- NOTE | 2024-08-16 05:56 | DVH ---
EXAM: XY CHEST PORTABLE Indication: mech vent Technique: Single frontal view of the chest was obtained Comparison: XY CHEST PORTABLE on DOS: 08/14/24, XY CHEST PORTABLE on DOS: 08/12/24, XY CHEST PORTABLE o n DOS: 08/10/24, XY CHEST PORTABLE on DOS: 08/08/24, XY CHEST PORTABLE on DOS: 08/08/24 FINDINGS: Lines and Tubes: tracheostomy is visualized. Right central venous catheter tip projects over the sup erior vena cava. Lungs: Left basilar opacity. Pleura: Possible small left pleural effusion. Trace left pneumothorax. No pneumothorax. Cardiomediastinal contours: Unchanged. Bones: No acute osseous abnormality. IMPRESSION: Trace left pneumothorax. Mild pulmonary vascular congestion. Possible small left pleural effusion.
[2024-08-16 06:01] LABS: BUN/Creatinine Ratio 26.6 (10.0-20.0); Glucose 95 mg/dL (74-106)
[2024-08-16 06:02] LABS: Magnesium 2.1 mg/dL (1.6-2.6)
[2024-08-16 06:05] LABS: Calcium 12.4 mg/dL (8.7-10.4); Phosphorus 1.4 mg/dL (2.4-5.1)
[2024-08-16 06:07] LABS: Blood Urea Nitrogen 81 mg/dL (9-23)
[2024-08-16 08:20] LABS: Base Excess 3.9 mmol/L (-2.0-3.0)
--- NOTE | 2024-08-16 11:28 | DVHPN2 ---
Progress Note Date Seen: Aug 16, 2024 Has the PT tested + for MRSA If YES, has PT been informed?: Yes Medical Necessity Reason Pt with a Central, PICC or Fol: Yes The following are medically ne: Central Line, Rubio Catheter Reason for rubio catheter: Strict I&O Subjective Patient reports: No new complaints Review of Systems: RESPIRATORY:Abnormal Objective vital signs Vital Sign Date Time Temp Pulse Resp B/P (MAP) Pulse Ox O2 Delivery O2 Flow Rate FiO2 08/16/24 10:48 101 28 113/71 (85) 97 40 08/16/24 10:00 Mechanical Ventilator+ 08/16/24 08:00 98.7 98.7 Total Intake and Output 08/15/24 08/15/24 08/16/24 15:00 23:00 07:00 Intake Total 188.335 ml 667.667 ml 770 ml Output Total 50 ml 0 ml Balance 188.335 ml 617.667 ml 770 ml medications Current Medications Medications Dose Ordered Sig/[place] Route Start Time Stop Time Status Last Admin Dose Admin Enoxaparin Sodium 40 mg DAILY SC 06/10/24 10:00 UNV Enoxaparin Sodium 40 mg DAILY SC 06/17/24 10:00 UNV Lactulose 30 ml [id number] PRN PEG 07/01/24 10:15 07/27/24 09:15 30 ML Metoprolol Tartrate 50 mg BID PO 07/01/24 22:00 08/16/24 09:56 50 MG Heparin Sodium (Porcine) 4,000 units JACKY PRN XX 07/09/24 11:00 08/05/24 11:26 4,000 UNITS Acetylcysteine 200 mg Q6HR NEB 07/14/24 12:00 08/16/24 06:59 200 MG Albuterol 2.5 mg Q6HR NEB 07/14/24 12:00 08/16/24 06:58 2.5 MG Ipratropium [place] 0.5 mg Q6HR NEB 07/14/24 12:00 08/16/24 06:58 0.5 MG Acetaminophen 650 mg Q6HP PRN PO 07/22/24 19:53 08/13/24 08:21 650 MG Omeprazole 20 mg DAILY GT 07/28/24 10:00 08/16/24 09:56 20 MG Enteral Nutritional Formula 1,000 ml 60ML/HR GT 07/28/24 11:45 08/14/24 13:22 1,000 ML Lorazepam 0.25 mg Q12HP PRN PO 07/28/24 17:15 08/05/24 22:07 0.25 MG Heparin Sodium (Porcine) 5,000 units Q12HR SC 07/28/24 22:00 08/16/24 09:57 5,000 UNITS Ceftazidime/ Dextrose 1 gm/ Sodium Chloride 50 ml @ 16.667 mls/ hr HS IV 08/07/24 22:00 08/15/24 22:58 16.667 MLS/HR Norepinephrine Bitartrate 250 ml @ 3.75 mls/hr Q24H IV 08/08/24 18:45 08/10/24 17:30 11.25 MLS/HR Dexmedetomidine HCl 400 mcg/ Dextrose 100 ml @ 2.615 mls/ hr Q24H IV 08/12/24 09:00 08/12/24 09:12 2.615 MLS/HR Epoetin Calin-epbx 10,000 unit TUTHSA@2100 SC 08/14/24 21:00 08/14/24 23:01 10,000 UNIT Fentanyl 50 mcg Q72H TD 08/13/24 21:00 08/13/24 22:28 50 MCG Examination: GENERAL:Abnormal, LUNGS:Abnormal, ABDOMEN:Abnormal laboratory and microbiology Laboratory Tests 08/16/24 05:23 Test 08/16/24 05:23 Range/Units Serum Glucose 95 74-106 mg/dL Microbiology Date/Time Source Procedure Growth Status 07/24/24 18:34 Trachea Gram Stain - Final Complete 07/24/24 18:34 Respiratory Culture - Final Pseudomonas aeruginosa Complete 07/24/24 15:15 Blood Blood Culture - Final NO GROWTH AFTER 5 DAYS OF INCUBATION. 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 Acute respiratory failure advanced a chronic respiratory failure status post trach now trach to wall oxygen Septic shock resolved due to multidrug resistant organisms Peripheral artery disease Coronary artery disease Severe protein calorie malnutrition anemia due to ckd hyperkalemia hyperphosphatemia resolved HD today check phos, no phos binders at this time. Phos replacement yesterday nepro high Ca noted Phoslo stopped epogen 3x a week Plan discussed with: Patient My Orders My Orders Orders - ANNA ROMERO MD Procedure Category Date Status Time Dialysis Nursing SUZAN 08/16/24 In Process Message 07:00 Document Fluid Input SUZAN 08/16/24 In Process And Outpu 07:00 Hemodialysis Orders ORDERS 08/16/24 Verified 11:25 Dietary Evaluation Review Comments: 1) If GI is assessible consider Jevity 1.2 @ 60 ml/hr x24 hrs goal rate as tolerated 2) If pt remains NPO >7 days consider TPN to meet at least 75% of estimated needs 3) Advance pt diet when medically feasible to a Cardiac/Renal Specific K2,2gmNA,low phos,60g Pro diet modified per SCHOOL BUSINESS MANAGER recommendations 4) Continue current plan of care Expected Outcomes/Goals: 1) Pt to receive adequate nutrition support 2) Pt diet to advance CC Plasma Assessment Blood Product Administration S: [id number] ANNA ROMERO MD Aug 16, 2024 11:28
[2024-08-16] MEDS: SODIUM CHL 0.9% 1000 ML BAG XX ONE (14:40)
[2024-08-16] MEDS: MORPHINE SULFATE INJ 2 MG/ml SYRG IV ONE (14:41)
--- NOTE | 2024-08-16 14:50 | DVH ---
CHEST RADIOGRAPH Indication: trach patient. Technique: Single frontal view of the chest was obtained COMPARISON: XY CHEST PORTABLE on DOS: 08/16/24, XY CHEST PORTABLE on DOS: 08/14/24, XY CHEST PORTABLE on DOS: 08/12/24, XY CHEST PORTABLE on DOS: 08/10/24, XY CHEST PORTABLE on DOS: 08/08/24 FINDINGS: Lines and Tubes: Tracheostomy and right central venous catheter in satisfactory position. Lungs: Patchy bilateral airspace disease. Pleura: Small left pleural effusion. No pneumothorax. Cardiomediastinal contours: Unremarkable Bones: Unremarkable IMPRESSION: Lines and tubes in satisfactory position. No significant interval change.
--- NOTE | 2024-08-16 14:51 | DVH ---
Exam: XY KUB ABDOMEN SINGLE VIEW Indication: abdominal pain Comparison: XY KUB ABDOMEN SINGLE VIEW on DOS: 06/14/23, XY KUB ABDOMEN SINGLE VIEW on DOS: 06/13/23, XY KUB ABDOMEN SINGLE VIEW on DOS: 06/12/23, XY KUB ABDOMEN SINGLE VIEW on DOS: 06/03/23, XY KUB ABD OMEN SINGLE VIEW on DOS: 06/03/23 Technique: 1 radiographic views of the abdomen. Findings: Thoracolumbar spinal fixation hardware. Nonspecific bowel-gas pattern. There is no definite evidence for pneumoperitoneum. No abnormal calcifications noted. Impression: Nonspecific bowel-gas pattern.
--- NOTE | 2024-08-16 15:38 | DVHPN2 ---
Subjective 08/16 -- sinus tach but afebrile. on HD today. enteric feed into G tube with colostomy output. has suprapubic but needs HD. is tracheostomy on cpap spontaneous mode. sinus tachycardia, appears euvolemic. no sed/hypnotics, no analgesia gtt, no vasopressors. nonverbal, doesnt follow commands. sinus tach, worse with abd palpation, getting cxr, kub, ruleout pneumoperitoneum. Reviewed: Care Plan, H&P, Labs, Medications, Previous Orders, Radiology, Other Changes from previous H/P or p: No Changes General: Per HPI Objective Vitals Vital Signs Date Time Temp Pulse Resp B/P (MAP) Pulse Ox O2 Delivery O2 Flow Rate FiO2 08/16/24 14:49 111 34 123/68 (86) 93 40 08/16/24 14:00 Mechanical Ventilator+ 08/16/24 12:00 98.6 98.6 Intake/Output Intake and Output 08/16/24 07:00 Intake Total 1626.002 ml Output Total 50 ml Balance 1576.002 ml Intake Oral 0 ml IV Total 256.002 ml Tube Feeding 1370 ml Output Urine Total 0 ml Stool Total 50 ml Exam General Appearance: Nonverbal, on trach collar, on mech vent spont mode Respiratory: Clear to auscultation, Normal air movement, on 6 L through Cardiovascular: Regular rate, Normal S1, Normal S2 Abdominal: Normal bowel sounds, peg tube present, suprapubic catheter present, colostomy bag Extremities: Right BKA, 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 moist/pink Neck: Supple Cardiovascular: Regular rate, Normal S1, Normal S2, No murmurs Abdomen: Normal bowel sounds, Soft, No tenderness Extremities: Other (Some bilateral lower extremity edema) Psych/Mental Status: Mental status NL Medications Current Medications Medications Dose Ordered Sig/[place] Route Start Time Stop Time Status Last Admin Dose Admin Enoxaparin Sodium 40 mg DAILY SC 06/10/24 10:00 UNV Enoxaparin Sodium 40 mg DAILY SC 06/17/24 10:00 UNV Lactulose 30 ml [id number] PRN PEG 07/01/24 10:15 07/27/24 09:15 30 ML Metoprolol Tartrate 50 mg BID PO 07/01/24 22:00 08/16/24 09:56 50 MG Heparin Sodium (Porcine) 4,000 units JACKY PRN XX 07/09/24 11:00 08/05/24 11:26 4,000 UNITS Acetylcysteine 200 mg Q6HR NEB 07/14/24 12:00 08/16/24 12:03 200 MG Albuterol 2.5 mg Q6HR NEB 07/14/24 12:00 08/16/24 12:03 2.5 MG Ipratropium [place] 0.5 mg Q6HR NEB 07/14/24 12:00 08/16/24 12:03 0.5 MG Acetaminophen 650 mg Q6HP PRN PO 07/22/24 19:53 08/13/24 08:21 650 MG Omeprazole 20 mg DAILY GT 07/28/24 10:00 08/16/24 09:56 20 MG Enteral Nutritional Formula 1,000 ml 60ML/HR GT 07/28/24 11:45 08/14/24 13:22 1,000 ML Lorazepam 0.25 mg Q12HP PRN PO 07/28/24 17:15 08/05/24 22:07 0.25 MG Heparin Sodium (Porcine) 5,000 units Q12HR SC 07/28/24 22:00 08/16/24 09:57 5,000 UNITS Ceftazidime/ Dextrose 1 gm/ Sodium Chloride 50 ml @ 16.667 mls/ hr HS IV 08/07/24 22:00 08/15/24 22:58 16.667 MLS/HR Norepinephrine Bitartrate 250 ml @ 3.75 mls/hr Q24H IV 08/08/24 18:45 08/10/24 17:30 11.25 MLS/HR Dexmedetomidine HCl 400 mcg/ Dextrose 100 ml @ 2.615 mls/ hr Q24H IV 08/12/24 09:00 08/12/24 09:12 2.615 MLS/HR Epoetin Calin-epbx 10,000 unit TUTHSA@2100 SC 08/14/24 21:00 08/14/24 23:01 10,000 UNIT Fentanyl 50 mcg Q72H TD 08/13/24 21:00 08/13/24 22:28 50 MCG Laboratory Results Laboratory Tests 08/16/24 05:23 Chemistry Test 08/16/24 05:23 Calcium Level 12.4 mg/dL (8.7-10.4) H Magnesium Level 2.1 mg/dL (1.6-2.6) Phosphorus Level 1.4 mg/dL (2.4-5.1) L Urinalysis Test 05/28/24 22:36 05/30/24 04:30 07/18/24 22:30 Urine WBC Clumps Present /hpf (None Seen) Urine Creatinine 33.57 mg/dL (30.0-125.0) Urine Sodium 85 mmol/L (40-220) Urine Color Yellow (Yellow) Urine Clarity Turbid (Clear) H Urine pH 8.5 (5.0-9.0) Urine Specific Chemult 1.016 (1.001-1.035) Urine Protein 3+ (Negative) H Urine Ketones Negative (Negative) Urine Blood Negative /uL (Negative) Urine Nitrite Negative (Negative) Urine Bilirubin Negative (Negative) Urine Urobilinogen Normal mg/dL (Negative) Urine Leukocyte Esterase 1+ /uL (Negative) Urine RBC 9 /hpf (0 - 3) Urine WBC 38 /hpf (0 - 3) Urine Squamous Epithelial Cells Mod /hpf (<5) Urine Transitional Epithelial Cells Few /hpf (<2) Urine Renal Epithelial Cells Few /hpf (None Seen) Urine Bacteria Few /hpf (None Seen) H Urine Mucus Few (None Seen) Urine Glucose 1+ mg/dL (Normal) H Blood Gas Results Test 08/16/24 08:01 Arterial Blood pH 7.458 (7.350-7.450) FiO2 % 40.0 Microbiology Microbiology Date/Time Source Procedure Growth Status 07/24/24 18:34 Trachea Gram Stain - Final Complete 07/24/24 18:34 Respiratory Culture - Final Pseudomonas aeruginosa Complete 07/24/24 15:15 Blood Blood Culture - Final NO GROWTH AFTER 5 DAYS OF INCUBATION. Complete 07/18/24 22:30 Urine - Suprapubic Aspirate Urine Culture - Final Complete 06/11/24 16:06 Bronchial Washings Gram Stain - Final Complete 06/11/24 16:06 Respiratory Culture - Final Acinetobacter baumannii Pseudomonas aeruginosa Complete 05/30/24 11:45 Pleural Fluid Gram Stain - Final Complete 05/30/24 11:45 Pleural Fluid Body Fluid Culture - Final Complete Labs and/or images reviewed: Labs reviewed by me, Image(s) reviewed by me Assessment/Plan Assessment/Plan 08/16 -- sinus tach but afebrile. on HD today. enteric feed into G tube with colostomy output. has suprapubic but needs HD. is tracheostomy on cpap spontaneous mode. sinus tachycardia, appears euvolemic. no sed/hypnotics, no analgesia gtt, no vasopressors. nonverbal, doesnt follow commands. sinus tach, worse with abd palpation, getting cxr, kub, ruleout pneumoperitoneum. Neurology #Sedation -off sedation # acute metabolic encephalopathy likely due to sepsis -resolving, but complete neurological examination cant be accessed as pt is non verbal # history of seizures -History of seizure during last admission (1 month back) used Keppra for 1 week Discontinued Keppra, on 06/16 EEG shows abnormal EEG recording consistent with the presence of a diffuse nonspecific encephalopathic state # history of stroke Old infarct in the right frontal lobe and right parietal occipital lobe, seen on imaging Cardiovascular # shock likely septic-resolved #Hypertension -amlodipine 10 mg daily, clonidine 0.2 mg p.o. b.i.d., hydralazine 100 mg p.o. Q HR, on hold -metoprolol 50 mg p.o. b.i.d, Respiratory # acute hypoxic respiratory failure due to pneumonia s/p tracheostomy 06/13 -albuterol p.r.n., ipratropium neb -on T collar , mech vent SIMV mode # aspiration pneumonia, Gram-positive/[id number] to IV ceftazidime # pneumomediastinum and pneumopericardium-seen on imaging # left lower lobe atelectasis-seen on imaging #Recurrent mucus plugging -Mucomyst -repeat CXR prn -s/p multiple bronchoscopy #Small left pneumothorax -monitor with repeat CXR GI # hepatitis-C positive # status post PEG tube 06/15 Nephrology # FROYLAN due to hemodynamic mediated likely due to sepsis, requiring dialysis - Homer catheter placed on left internal jugular, on 06/26, removed on 07/04 - tunneled catheter placed to the right upper chest 07/04 -received dialysis as per schedule -on Bumex tablet 2 mg p.o. b.i.d., discontinued by the tape folding machine operator # hyponatremia, improved monitor # hyperkalemia -monitor # hypomagnesemia -monitor #Hypophosphatemia -corrected Urology # UTI-currently on IV ceftazidime # s/p suprapubic catheter Musculoskeletal/dermatological # status post above-knee amputation- due to peripheral arterial disease # decubitus ulcer-wound care Endocrine # secondary hyperparathyroidism-likely due to FROYLAN/CKD # hypocalcemia due to FROYLAN/CKD-on oral calcium, discontinued # hypoglycemia likely due to sepsis-resolved Hematology/oncology # severe anemia requiring transfusion, anemia of chronic disease, macrocytic anemia -monitor CBC -1 unit of PRBC transfusion with Dialysis # thrombocytopenia-monitor CBC Infectious disease # septic shock -resolved -currently on ceftazidime Psychiatry #Anxiety -Ativan oral PRN LINES/DRAINS/ACCESS: ETT, intubated on 05/28/2024 and tracheostomy performed on 06/11, PEG tube placed on 06/15 IV access Left internal jugular CVC, placed on 06/26 and removed on 07/04 Right IJ hemodialysis catheter placed 07/04 Left upper PICC line Suprapubic catheter, changed on 07/14/2024 Dripps: Off Nutrition Enteral through PEG tube, nepro with carb steady DVT prophylaxis Started on heparin 5000 subc q.12h, on hold considering severe anemia Peptic ulcer disease prophylaxis Omeprazole 20 mg GT daily Bowel regimen Lactulose 30 mg q.12h Code status discussed with the family for greater than 21 minutes, full code Plan discussed with: Other My Orders Orders - JOSE EDUARDO DOZIER MD Procedure Category Date Status Time Chest Xray 1 View XY 08/16/24 Resulted 14:24 Kub Abdomen Single XY 08/16/24 Resulted View 14:24 Date of Service: Aug 16, 2024 Billing Provider: JOSE EDUARDO DOZIER MD Common Visit Codes: [id number] CARE-EACH +30MIN JOSE EDUARDO DOZIER MD Aug 16, 2024 15:38
[2024-08-16] MEDS: ALBUMIN 25% 100 ML IV PRN (16:09)
--- NOTE | 2024-08-16 21:52 | DVHPN2 ---
Progress Note - Dictate Date Seen: Aug 16, 2024 Has the PT tested + for MRSA If YES, has PT been informed?: Yes Medical Necessity Reason Pt with a Central, PICC or Fol: Yes The following are medically ne: Central Line, Rubio Catheter Reason for rubio catheter: Strict I&O Subjective Patient seen and examined at bedside. On mechanical ventilator. S/p trach Overnight events reviewed. vital signs Vital Sign Date Time Temp Pulse Resp B/P (MAP) Pulse Ox O2 Delivery O2 Flow Rate FiO2 08/16/24 20:36 117 35 102/66 (78) 97 50 08/16/24 19:45 100.9 08/16/24 18:00 Mechanical Ventilator+ Total Intake and Output 08/15/24 08/15/24 08/16/24 15:00 23:00 07:00 Intake Total 188.335 ml 667.667 ml 770 ml Output Total 50 ml 0 ml Balance 188.335 ml 617.667 ml 770 ml medications Current Medications Medications Dose Ordered Sig/[place] Route Start Time Stop Time Status Last Admin Dose Admin Enoxaparin Sodium 40 mg DAILY SC 06/10/24 10:00 UNV Enoxaparin Sodium 40 mg DAILY SC 06/17/24 10:00 UNV Lactulose 30 ml [id number] PRN PEG 07/01/24 10:15 07/27/24 09:15 30 ML Metoprolol Tartrate 50 mg BID PO 07/01/24 22:00 08/16/24 09:56 50 MG Heparin Sodium (Porcine) 4,000 units JACKY PRN XX 07/09/24 11:00 08/16/24 17:33 4,000 UNITS Acetylcysteine 200 mg Q6HR NEB 07/14/24 12:00 08/16/24 18:58 200 MG Albuterol 2.5 mg Q6HR NEB 07/14/24 12:00 08/16/24 18:57 2.5 MG Ipratropium [place] 0.5 mg Q6HR NEB 07/14/24 12:00 08/16/24 18:58 0.5 MG Acetaminophen 650 mg Q6HP PRN PO 07/22/24 19:53 08/16/24 19:45 650 MG Omeprazole 20 mg DAILY GT 07/28/24 10:00 08/16/24 09:56 20 MG Enteral Nutritional Formula 1,000 ml 60ML/HR GT 07/28/24 11:45 08/14/24 13:22 1,000 ML Lorazepam 0.25 mg Q12HP PRN PO 07/28/24 17:15 08/05/24 22:07 0.25 MG Heparin Sodium (Porcine) 5,000 units Q12HR SC 07/28/24 22:00 08/16/24 09:57 5,000 UNITS Ceftazidime/ Dextrose 1 gm/ Sodium Chloride 50 ml @ 16.667 mls/ hr HS IV 08/07/24 22:00 08/15/24 22:58 16.667 MLS/HR Norepinephrine Bitartrate 250 ml @ 3.75 mls/hr Q24H IV 08/08/24 18:45 08/16/24 18:42 3.75 MLS/HR Dexmedetomidine HCl 400 mcg/ Dextrose 100 ml @ 2.615 mls/ hr Q24H IV 08/12/24 09:00 08/12/24 09:12 2.615 MLS/HR Epoetin Calin-epbx 10,000 unit TUTHSA@2100 SC 08/14/24 21:00 08/14/24 23:01 10,000 UNIT Fentanyl 50 mcg Q72H TD 08/13/24 21:00 08/13/24 22:28 50 MCG Albumin Human 100 ml @ 100 mls/hr PRN PRN IV 08/16/24 16:00 08/16/24 16:09 100 MLS/HR objective Gen.: Patient lying in bed in medical ICU. On mechanical ventilator. S/p trach Head: Normocephalic, atraumatic. Eyes: PERRLA. Ears: Normal external anatomy. Neck: Trach in place. Chest: Transmitted breath sounds bilaterally. Decreased air entry bilaterally. No wheezing. Bibasilar crackles. Cardiovascular: Positive S1, positive S2. Regular rate and rhythm. Abdomen: Positive bowel sounds in all 4 quadrants. Soft, nontender, nondistended. : Rubio in place. Normal external genitalia. Rectal: Deferred. Skin: Warm, dry. Intact. Extremities: 2+ radial pulses bilaterally. No lower extremity edema. Neuro: Off sedation laboratory and microbiology Laboratory Tests 08/16/24 05:23 Test 08/16/24 05:23 Range/Units Serum Glucose 95 74-106 mg/dL Assessment/Plan Impression: Acute hypoxic respiratory failure On mechanical ventilator Multifocal pneumonia Atelectasis Congestive heart failure Tracheostomy Pneumothorax Events: CXR reviewed, demonstrates patchy bilateral airspace disease. Small left pleural effusion. Remains on vent via trach Pt underwent hemodialysis today. Fentanyl for analgesia On Levophed 2 mcg/min for hemodynamic support Titrate to keep mean arterial pressure greater than 65 mmHg S/p trach S/p PEG. Trach care Pulmonary toileting Continue bronchodilators Continue antibiotics Follow up cultures Wound care. Tube feeds for nutritional support via PEG. HOB elevation Aspiration precautions. Pain control Avoid oversedation HD per Nephrology. Monitor renal function Monitor electrolytes. Supplement as necessary. Awaiting LTAC placement. S/p therapeutic bronchoscopy on 08/09/24 with RML BAL. Cleared mucous plugging from L1-L10 and R1-R10 Please see separate procedure notes for details. S/p bronchoscopy with BAL on 07/08/24. See procedure note for full details. Rest of plan as noted below Plan: S/p trach, trach collar - currently on vent, On A/C mode with RR 20, VT 450, PEEP 5, FiO2 50% Fentanyl for analgesia On Levophed for hemodynamic support Titrate to keep mean arterial pressure greater than 65 mmHg Antibiotics Bronchodilators IV fluid hydration Maintain euvolemia Monitor renal function Monitor electrolytes. Supplement as necessary. Monitor ins and outs. Tube feeds for nutritional support. GI prophylaxis. DVT prophylaxis. Prognosis: Poor given patient's multiple co-morbidities. Condition: Critical Rest of plan per hospitalist and other consultants. A total of 35 minutes of critical care time was spent reviewing the patient record, examining the patient, making a diagnostic and therapeutic plan, discussing this plan with the medical personnel, following up on diagnostic studies and following the patient for clinical stability excluding any and all procedures. At least 50% of this time was spent in direct, [id number] contact. Thank you Anthony Ugalde NP, for allowing me to participate in this patient's care. Further recommendations will depend on the patient's clinical course. Please do not hesitate to contact me if you have any questions or concerns. This medical document was created using an electronic medical record system with [employer] dictation system. Although these documentations are being carefully reviewed, there may still be some phonetic and typographical changes. The errors are purely typographical, due to imperfection on the software program, and do not reflect any compromise in the patient's medical care. Dietary Evaluation Review Comments: 1) If GI is assessible consider Jevity 1.2 @ 60 ml/hr x24 hrs goal rate as tolerated 2) If pt remains NPO >7 days consider TPN to meet at least 75% of estimated needs 3) Advance pt diet when medically feasible to a Cardiac/Renal Specific K2,2gmNA,low phos,60g Pro diet modified per TI[employer] MOLD ENGRAVER recommendations 4) Continue current plan of care Expected Outcomes/Goals: 1) Pt to receive adequate nutrition support 2) Pt diet to advance Plan discussed with: Other (DORCAS Cisneros) Critical Care Time(min): 35 CC Plasma Assessment Blood Product Administration S: [id number] ELIANE ALTAMIRANO MD Aug 16, 2024 21:52
[2024-08-17] VITALS (116 sets, daily range): BP systolic 83–154; BP diastolic 40–91; PULSE 48–124; RESP 15–42; TEMP 97.9–101; O2SAT 93–99
[2024-08-17 01:22] LABS: Alanine Aminotransferase 26 U/L (7-40); Albumin 3.8 g/dL (3.2-4.8); Anion Gap 8 (5-15); BUN/Creatinine Ratio 21.3 (10.0-20.0); Chloride 100 mmol/L (98-107); Magnesium 1.9 mg/dL (1.6-2.6); Sodium 140 mmol/L (136-145); Total Protein 7.6 g/dL (5.7-8.2)
[2024-08-17 01:40] LABS: Alkaline Phosphatase 165 U/L (46-116); Aspartate Aminotransferase 41 U/L (13-40); Bilirubin, Total 0.2 mg/dL (0.2-1.0); Blood Urea Nitrogen 36 mg/dL (9-23); Calcium 11.2 mg/dL (8.7-10.4); Carbon Dioxide 32 mmol/L (20-31); Glucose 108 mg/dL (74-106); Potassium 3.1 mmol/L (3.5-5.1)
[2024-08-17] MEDS: POTASSIUM CHL 20MEQ/100ML 100 ML IV ONE ×2 (04:45)
[2024-08-17 05:46] LABS: Basophils # (auto) 0 10 ^3/uL (0-0.2); Basophils % (auto) 0.3 % (0.0-2.0); Eosinophils # (auto) 0.3 10 ^3/uL (0-0.8); Eosinophils % (auto) 3.1 % (0.0-7.0); Hematocrit 29.2 % (41.0-53.0); Hemoglobin 9.5 g/dL (13.5-17.5); Lymphocytes # (auto) 0.8 10 ^3/uL (0.4-5.4); Lymphocytes % (auto) 7.9 % (10.0-50.0); Mean Corpuscular Hemoglobin 32.1 pg (28.0-32.0); Mean Corpuscular Hgb Conc. 32.7 g/dL (32.0-36.0); Mean Corpuscular Volume 98.4 fL (80.0-100.0); Monocytes # (auto) 0.7 10 ^3/uL (0-1.3); Monocytes % (auto) 6.2 % (0.0-12.0); Neutrophils # (auto) 8.7 10 ^3/uL (1.6-8.6); Neutrophils % (auto) 82.5 % (37.0-80.0); Nucleated Red Blood Cells % 0.1 %; Platelet Count (auto) 222 10^3/uL (140-450); Red Blood Cells 2.96 10^6/uL (4.5-5.90); Red Cell Distribution Width 17.9 % (11.8-14.3); White Blood Cell 10.6 10^3/uL (4.4-10.8)
[2024-08-17 06:02] LABS: Alanine Aminotransferase 26 U/L (7-40); Albumin 4.2 g/dL (3.2-4.8); Anion Gap 11 (5-15); BUN/Creatinine Ratio 21.3 (10.0-20.0); Carbon Dioxide 30 mmol/L (20-31); Chloride 99 mmol/L (98-107); Potassium 3.5 mmol/L (3.5-5.1); Sodium 140 mmol/L (136-145); Total Protein 8.1 g/dL (5.7-8.2)
[2024-08-17 06:25] LABS: Alkaline Phosphatase 174 U/L (46-116); Aspartate Aminotransferase 41 U/L (13-40); Bilirubin, Total 0.2 mg/dL (0.2-1.0); Blood Urea Nitrogen 42 mg/dL (9-23); Calcium 11.4 mg/dL (8.7-10.4); Glucose 117 mg/dL (74-106)
--- NOTE | 2024-08-17 06:46 | DVH ---
EXAM: XY CHEST PORTABLE HISTORY: Mechanically ventillated COMPARISON: XY CHEST XRAY 1 VIEW on DOS: 08/16/24, XY CHEST PORTABLE on DOS: 08/16/24, XY CHEST PORTABLE on DOS: 08/14/24, XY CHEST PORTABLE on DOS: 08/12/24, XY CHEST PORTABLE on DOS: 08/10/24 TECHNIQUE: Portable AP view of the chest was performed. FINDINGS: Tracheostomy, right chest tunneled dialysis catheter, and thoracolumbar posterior spinal fusion re-id entified. There are patchy interstitial infiltrates in the mid to lower lungs, similar to that seen previously. There may be a small left pleural effusion. The costophrenic angles are not fully image d here. The heart is not enlarged. IMPRESSION: 1. Tracheostomy ventilation. 2. Stable interstitial infiltrates in the mid to lower lungs and probable small left pleural effusion .
[2024-08-17] MEDS ORDERED: HYDROcodone-ACET 10/325MG TAB PO PRN (13:00)
[2024-08-17] MEDS: LACTATED RINGER'S 1,000 ML IV ONE (13:15)
[2024-08-17] MEDS: HYDROcodone-ACET 10/325MG TAB PO PRN (13:20)
--- NOTE | 2024-08-17 17:31 | DVHPN2 ---
Progress Note Date Seen: Aug 17, 2024 Has the PT tested + for MRSA If YES, has PT been informed?: Yes Medical Necessity Reason Pt with a Central, PICC or Fol: Yes The following are medically ne: Central Line, Rubio Catheter Reason for rubio catheter: Strict I&O Subjective Patient reports: No new complaints Review of Systems: RESPIRATORY:Abnormal Objective vital signs Vital Sign Date Time Temp Pulse Resp B/P (MAP) Pulse Ox O2 Delivery O2 Flow Rate FiO2 08/17/24 16:40 104 22 98/63 (75) 96 08/17/24 16:14 50 08/17/24 16:00 100.3 100.3 08/17/24 16:00 Mechanical Ventilator+ Total Intake and Output 08/16/24 08/16/24 08/17/24 15:00 23:00 07:00 Intake Total 673.167 ml 698.833 ml Output Total 0 ml 25 ml Balance 673.167 ml 673.833 ml medications Current Medications Medications Dose Ordered Sig/[place] Route Start Time Stop Time Status Last Admin Dose Admin Enoxaparin Sodium 40 mg DAILY SC 06/10/24 10:00 UNV Enoxaparin Sodium 40 mg DAILY SC 06/17/24 10:00 UNV Lactulose 30 ml [id number] PRN PEG 07/01/24 10:15 07/27/24 09:15 30 ML Metoprolol Tartrate 50 mg BID PO 07/01/24 22:00 08/17/24 10:15 50 MG Heparin Sodium (Porcine) 4,000 units JACKY PRN XX 07/09/24 11:00 08/16/24 17:33 4,000 UNITS Acetylcysteine 200 mg Q6HR NEB 07/14/24 12:00 08/17/24 11:48 200 MG Albuterol 2.5 mg Q6HR NEB 07/14/24 12:00 08/17/24 11:48 2.5 MG Ipratropium [place] 0.5 mg Q6HR NEB 07/14/24 12:00 08/17/24 11:48 0.5 MG Acetaminophen 650 mg Q6HP PRN PO 07/22/24 19:53 08/17/24 10:59 650 MG Omeprazole 20 mg DAILY GT 07/28/24 10:00 08/17/24 10:09 20 MG Enteral Nutritional Formula 1,000 ml 60ML/HR GT 07/28/24 11:45 08/17/24 05:32 1,000 ML Lorazepam 0.25 mg Q12HP PRN PO 07/28/24 17:15 08/17/24 10:01 0.25 MG Heparin Sodium (Porcine) 5,000 units Q12HR SC 07/28/24 22:00 08/17/24 10:17 5,000 UNITS Ceftazidime/ Dextrose 1 gm/ Sodium Chloride 50 ml @ 16.667 mls/ hr HS IV 08/07/24 22:00 08/16/24 21:31 16.667 MLS/HR Norepinephrine Bitartrate 250 ml @ 3.75 mls/hr Q24H IV 08/08/24 18:45 08/16/24 18:42 3.75 MLS/HR Dexmedetomidine HCl 400 mcg/ Dextrose 100 ml @ 2.615 mls/ hr Q24H IV 08/12/24 09:00 08/12/24 09:12 2.615 MLS/HR Epoetin Calin-epbx 10,000 unit TUTHSA@2100 SC 08/14/24 21:00 08/16/24 21:27 10,000 UNIT Fentanyl 50 mcg Q72H TD 08/13/24 21:00 08/16/24 21:30 50 MCG Albumin Human 100 ml @ 100 mls/hr PRN PRN IV 08/16/24 16:00 08/16/24 16:09 100 MLS/HR Acetaminophen/ Hydrocodone Bitart 1 tab Q4HPRN PRN PO 08/17/24 13:00 08/17/24 13:20 1 TAB Acetaminophen/ Hydrocodone Bitart 1 tab Q4HPRN PRN PO 08/17/24 13:30 Examination: GENERAL:Abnormal, LUNGS:Abnormal, ABDOMEN:Abnormal, SKIN:Abnormal laboratory and microbiology Laboratory Tests 08/17/24 05:12 Test 08/17/24 05:12 Range/Units Serum Glucose 117 H 74-106 mg/dL Microbiology Date/Time Source Procedure Growth Status 07/24/24 18:34 Trachea Gram Stain - Final Complete 07/24/24 18:34 Respiratory Culture - Final Pseudomonas aeruginosa Complete 07/24/24 15:15 Blood Blood Culture - Final NO GROWTH AFTER 5 DAYS OF INCUBATION. 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 Acute respiratory failure advanced a chronic respiratory failure status post trach now trach to wall oxygen Septic shock resolved due to multidrug resistant organisms Peripheral artery disease Coronary artery disease Severe protein calorie malnutrition anemia due to ckd hyperkalemia hyperphosphatemia resolved HD sunday check phos, no phos binders at this time. Phos replacement yesterday nepro high Ca noted Phoslo stopped epogen 3x a week Plan discussed with: Patient Dietary Evaluation Review Comments: 1) If GI is assessible consider Jevity 1.2 @ 60 ml/hr x24 hrs goal rate as tolerated 2) If pt remains NPO >7 days consider TPN to meet at least 75% of estimated needs 3) Advance pt diet when medically feasible to a Cardiac/Renal Specific K2,2gmNA,low phos,60g Pro diet modified per ROTARY CUTTER recommendations 4) Continue current plan of care Expected Outcomes/Goals: 1) Pt to receive adequate nutrition support 2) Pt diet to advance CC Plasma Assessment Blood Product Administration S: [id number] ANNA ROMERO MD Aug 17, 2024 17:31
--- NOTE | 2024-08-17 17:43 | DVHPN2 ---
Subjective 08/17 update 08/16 -- sinus tach but afebrile. on HD today. enteric feed into G tube with colostomy output. has suprapubic but needs HD. is tracheostomy on cpap spontaneous mode. sinus tachycardia, appears euvolemic. no sed/hypnotics, no analgesia gtt, no vasopressors. nonverbal, doesnt follow commands. sinus tach, worse with abd palpation, getting cxr, kub, ruleout pneumoperitoneum. 08/17-patient is doing well still on very low-dose Levo 2,. Yesterday HD was stopped early due to hypotension. Still getting G-tube feeds. On vent through tracheostomy. RN notified that near stoma is a pearly mass. bit hyperNa today, we will start some more fluids IV and with G-tube feeds Reviewed: Care Plan, H&P, Labs, Medications, Previous Orders, Radiology, Other Changes from previous H/P or p: No Changes General: Per HPI Objective Vitals Vital Signs Date Time Temp Pulse Resp B/P (MAP) Pulse Ox O2 Delivery O2 Flow Rate FiO2 08/17/24 17:40 120/72 08/17/24 16:40 104 22 96 08/17/24 16:14 50 08/17/24 16:00 100.3 100.3 08/17/24 16:00 Mechanical Ventilator+ Intake/Output Intake and Output 08/17/24 07:00 Intake Total 1372.000 ml Output Total 25 ml Balance 1347.000 ml Intake Oral 120 ml IV Total 71.000 ml Tube Feeding 1106 ml Other 75 ml Output Urine Total 25 ml Exam General Appearance: Nonverbal, on trach collar, on mech vent spont mode Respiratory: Clear to auscultation, Normal air movement, on 6 L through Cardiovascular: Regular rate, Normal S1, Normal S2 Abdominal: Normal bowel sounds, peg tube present, suprapubic catheter present, colostomy bag Extremities: Right BKA, 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 Skin: Stage III sacral ulcer Neuro: Patient is nonverbal but comprehends and follows commands, mildly confused today Extremities: Other (Some bilateral lower extremity edema) Medications Current Medications Medications Dose Ordered Sig/[place] Route Start Time Stop Time Status Last Admin Dose Admin Enoxaparin Sodium 40 mg DAILY SC 06/10/24 10:00 UNV Enoxaparin Sodium 40 mg DAILY SC 06/17/24 10:00 UNV Lactulose 30 ml [id number] PRN PEG 07/01/24 10:15 07/27/24 09:15 30 ML Metoprolol Tartrate 50 mg BID PO 07/01/24 22:00 08/17/24 10:15 50 MG Heparin Sodium (Porcine) 4,000 units JACKY PRN XX 07/09/24 11:00 08/16/24 17:33 4,000 UNITS Acetylcysteine 200 mg Q6HR NEB 07/14/24 12:00 08/17/24 11:48 200 MG Albuterol 2.5 mg Q6HR NEB 07/14/24 12:00 08/17/24 11:48 2.5 MG Ipratropium [place] 0.5 mg Q6HR NEB 07/14/24 12:00 08/17/24 11:48 0.5 MG Acetaminophen 650 mg Q6HP PRN PO 07/22/24 19:53 08/17/24 10:59 650 MG Omeprazole 20 mg DAILY GT 07/28/24 10:00 08/17/24 10:09 20 MG Enteral Nutritional Formula 1,000 ml 60ML/HR GT 07/28/24 11:45 08/17/24 05:32 1,000 ML Lorazepam 0.25 mg Q12HP PRN PO 07/28/24 17:15 08/17/24 10:01 0.25 MG Heparin Sodium (Porcine) 5,000 units Q12HR SC 07/28/24 22:00 08/17/24 10:17 5,000 UNITS Ceftazidime/ Dextrose 1 gm/ Sodium Chloride 50 ml @ 16.667 mls/ hr HS IV 08/07/24 22:00 08/16/24 21:31 16.667 MLS/HR Norepinephrine Bitartrate 250 ml @ 3.75 mls/hr Q24H IV 08/08/24 18:45 08/16/24 18:42 3.75 MLS/HR Dexmedetomidine HCl 400 mcg/ Dextrose 100 ml @ 2.615 mls/ hr Q24H IV 08/12/24 09:00 08/12/24 09:12 2.615 MLS/HR Epoetin Calin-epbx 10,000 unit TUTHSA@2100 SC 08/14/24 21:00 08/16/24 21:27 10,000 UNIT Fentanyl 50 mcg Q72H TD 08/13/24 21:00 08/16/24 21:30 50 MCG Albumin Human 100 ml @ 100 mls/hr PRN PRN IV 08/16/24 16:00 08/16/24 16:09 100 MLS/HR Acetaminophen/ Hydrocodone Bitart 1 tab Q4HPRN PRN PO 08/17/24 13:00 08/17/24 13:20 1 TAB Acetaminophen/ Hydrocodone Bitart 1 tab Q4HPRN PRN PO 08/17/24 13:30 Laboratory Results Laboratory Tests 08/17/24 05:12 Chemistry Test 08/17/24 00:45 08/17/24 05:12 Albumin 3.8 g/dL (3.2-4.8) 4.2 g/dL (3.2-4.8) Calcium Level 11.2 mg/dL (8.7-10.4) H 11.4 mg/dL (8.7-10.4) H Magnesium Level 1.9 mg/dL (1.6-2.6) 2.0 mg/dL (1.6-2.6) Total Protein 7.6 g/dL (5.7-8.2) 8.1 g/dL (5.7-8.2) LFT Test 08/17/24 00:45 08/17/24 05:12 Alanine Aminotransferase (ALT) 26 U/L (7-40) 26 U/L (7-40) Alkaline Phosphatase 165 U/L (46-116) H 174 U/L (46-116) H Aspartate Amino Transferase (AST) 41 U/L (13-40) H 41 U/L (13-40) H Total Bilirubin 0.2 mg/dL (0.2-1.0) 0.2 mg/dL (0.2-1.0) Urinalysis Test 05/28/24 22:36 05/30/24 04:30 07/18/24 22:30 Urine WBC Clumps Present /hpf (None Seen) Urine Creatinine 33.57 mg/dL (30.0-125.0) Urine Sodium 85 mmol/L (40-220) Urine Color Yellow (Yellow) Urine Clarity Turbid (Clear) H Urine pH 8.5 (5.0-9.0) Urine Specific [place] 1.016 (1.001-1.035) Urine Protein 3+ (Negative) H Urine Ketones Negative (Negative) Urine Blood Negative /uL (Negative) Urine Nitrite Negative (Negative) Urine Bilirubin Negative (Negative) Urine Urobilinogen Normal mg/dL (Negative) Urine Leukocyte Esterase 1+ /uL (Negative) Urine RBC 9 /hpf (0 - 3) Urine WBC 38 /hpf (0 - 3) Urine Squamous Epithelial Cells Mod /hpf (<5) Urine Transitional Epithelial Cells Few /hpf (<2) Urine Renal Epithelial Cells Few /hpf (None Seen) Urine Bacteria Few /hpf (None Seen) H Urine Mucus Few (None Seen) Urine Glucose 1+ mg/dL (Normal) H Microbiology Microbiology Date/Time Source Procedure Growth Status 07/24/24 18:34 Trachea Gram Stain - Final Complete 07/24/24 18:34 Respiratory Culture - Final Pseudomonas aeruginosa Complete 07/24/24 15:15 Blood Blood Culture - Final NO GROWTH AFTER 5 DAYS OF INCUBATION. Complete 07/18/24 22:30 Urine - Suprapubic Aspirate Urine Culture - Final Complete 06/11/24 16:06 Bronchial Washings Gram Stain - Final Complete 06/11/24 16:06 Respiratory Culture - Final Acinetobacter baumannii Pseudomonas aeruginosa Complete 05/30/24 11:45 Pleural Fluid Gram Stain - Final Complete 05/30/24 11:45 Pleural Fluid Body Fluid Culture - Final Complete Labs and/or images reviewed: Labs reviewed by me, Image(s) reviewed by me Assessment/Plan Assessment/Plan 2/2-patient is doing well still on very low-dose Levo 2,. Yesterday HD was stopped early due to hypotension. Still getting G-tube feeds. On vent through tracheostomy. RN notified that near stoma is a pearly mass. bit hyperNa today, we will start some more fluids IV and with G-tube feeds Neurology #Sedation -off sedation # acute metabolic encephalopathy likely due to sepsis -resolving, but complete neurological examination cant be accessed as pt is non verbal # history of seizures -History of seizure during last admission (1 month back) used Keppra for 1 week Discontinued Keppra, on 06/16 EEG shows abnormal EEG recording consistent with the presence of a diffuse nonspecific encephalopathic state # history of stroke Old infarct in the right frontal lobe and right parietal occipital lobe, seen on imaging Cardiovascular # shock likely septic-resolved #Hypertension -amlodipine 10 mg daily, clonidine 0.2 mg p.o. b.i.d., hydralazine 100 mg p.o. Q HR, on hold -metoprolol 50 mg p.o. b.i.d, Respiratory # acute hypoxic respiratory failure due to pneumonia s/p tracheostomy 06/13 -albuterol p.r.n., ipratropium neb -on T collar , mech vent SIMV mode # aspiration pneumonia, Gram-positive/[id number] to IV ceftazidime # pneumomediastinum and pneumopericardium-seen on imaging # left lower lobe atelectasis-seen on imaging #Recurrent mucus plugging -Mucomyst -repeat CXR prn -s/p multiple bronchoscopy #Small left pneumothorax -monitor with repeat CXR GI # hepatitis-C positive # status post PEG tube 06/15 Nephrology # FROYLAN due to hemodynamic mediated likely due to sepsis, requiring dialysis - Homer catheter placed on left internal jugular, on 06/26, removed on 07/04 - tunneled catheter placed to the right upper chest 07/04 -received dialysis as per schedule -on Bumex tablet 2 mg p.o. b.i.d., discontinued by the full stack engineer # hyponatremia, improved monitor # hyperkalemia -monitor # hypomagnesemia -monitor #Hypophosphatemia -corrected Urology # UTI-currently on IV ceftazidime # s/p suprapubic catheter Musculoskeletal/dermatological # status post above-knee amputation- due to peripheral arterial disease # decubitus ulcer-wound care Endocrine # secondary hyperparathyroidism-likely due to FROYLAN/CKD # hypocalcemia due to FROYLAN/CKD-on oral calcium, discontinued # hypoglycemia likely due to sepsis-resolved Hematology/oncology # severe anemia requiring transfusion, anemia of chronic disease, macrocytic anemia -monitor CBC -1 unit of PRBC transfusion with Dialysis # thrombocytopenia-monitor CBC Infectious disease # septic shock -resolved -currently on ceftazidime Psychiatry #Anxiety -Ativan oral PRN LINES/DRAINS/ACCESS: ETT, intubated on 05/28/2024 and tracheostomy performed on 06/11, PEG tube placed on 06/15 IV access Left internal jugular CVC, placed on 06/26 and removed on 07/04 Right IJ hemodialysis catheter placed 07/04 Left upper PICC line Suprapubic catheter, changed on 07/14/2024 Dripps: Off Nutrition Enteral through PEG tube, nepro with carb steady DVT prophylaxis Started on heparin 5000 subc q.12h, on hold considering severe anemia Peptic ulcer disease prophylaxis Omeprazole 20 mg GT daily Bowel regimen Lactulose 30 mg q.12h Code status discussed with the family for greater than 21 minutes, full code Plan discussed with: Patient My Orders Orders - JOSE EDUARDO DOZIER MD Procedure Category Date Status Time Hydrocodone-Acet PHA 08/17/24 In Process 10/325mg Tab ([place] 13:00 Free Water SUZAN 08/17/24 In Process 12:56 Hydrocodone-Acet PHA 08/17/24 In Process 5/325mg Tab ([place] 13:30 Date of Service: Aug 17, 2024 Billing Provider: JOSE EDUARDO DOZIER MD Common Visit Codes: 74506-[id number] CARE-EACH +30MIN JOSE EDUARDO DOZIER MD Aug 17, 2024 17:43
[2024-08-17] MEDS: HYDROcodone-ACET 5/325MG TAB PO PRN (20:55)
--- NOTE | 2024-08-17 21:28 | DVHPN2 ---
Progress Note - Dictate Date Seen: Aug 17, 2024 Has the PT tested + for MRSA If YES, has PT been informed?: Yes Medical Necessity Reason Pt with a Central, PICC or Fol: Yes The following are medically ne: Central Line, Rubio Catheter Reason for rubio catheter: Strict I&O Subjective Patient seen and examined at bedside. On mechanical ventilator. S/p trach Overnight events reviewed. vital signs Vital Sign Date Time Temp Pulse Resp B/P (MAP) Pulse Ox O2 Delivery O2 Flow Rate FiO2 08/17/24 20:46 105 34 141/77 (98) 98 50 08/17/24 20:00 Mechanical Ventilator+ 08/17/24 20:00 100.1 100.1 Total Intake and Output 08/16/24 08/16/24 08/17/24 15:00 23:00 07:00 Intake Total 673.167 ml 698.833 ml Output Total 0 ml 25 ml Balance 673.167 ml 673.833 ml medications Current Medications Medications Dose Ordered Sig/[place] Route Start Time Stop Time Status Last Admin Dose Admin Enoxaparin Sodium 40 mg DAILY SC 06/10/24 10:00 UNV Enoxaparin Sodium 40 mg DAILY SC 06/17/24 10:00 UNV Lactulose 30 ml [id number] PRN PEG 07/01/24 10:15 07/27/24 09:15 30 ML Metoprolol Tartrate 50 mg BID PO 07/01/24 22:00 08/17/24 10:15 50 MG Heparin Sodium (Porcine) 4,000 units JACKY PRN XX 07/09/24 11:00 08/16/24 17:33 4,000 UNITS Acetylcysteine 200 mg Q6HR NEB 07/14/24 12:00 08/17/24 18:40 200 MG Albuterol 2.5 mg Q6HR NEB 07/14/24 12:00 08/17/24 18:40 2.5 MG Ipratropium [place] 0.5 mg Q6HR NEB 07/14/24 12:00 08/17/24 18:40 0.5 MG Acetaminophen 650 mg Q6HP PRN PO 07/22/24 19:53 08/17/24 10:59 650 MG Omeprazole 20 mg DAILY GT 07/28/24 10:00 08/17/24 10:09 20 MG Enteral Nutritional Formula 1,000 ml 60ML/HR GT 07/28/24 11:45 08/17/24 05:32 1,000 ML Lorazepam 0.25 mg Q12HP PRN PO 07/28/24 17:15 08/17/24 10:01 0.25 MG Heparin Sodium (Porcine) 5,000 units Q12HR SC 07/28/24 22:00 08/17/24 10:17 5,000 UNITS Ceftazidime/ Dextrose 1 gm/ Sodium Chloride 50 ml @ 16.667 mls/ hr HS IV 08/07/24 22:00 08/16/24 21:31 16.667 MLS/HR Norepinephrine Bitartrate 250 ml @ 3.75 mls/hr Q24H IV 08/08/24 18:45 08/16/24 18:42 3.75 MLS/HR Dexmedetomidine HCl 400 mcg/ Dextrose 100 ml @ 2.615 mls/ hr Q24H IV 08/12/24 09:00 08/12/24 09:12 2.615 MLS/HR Epoetin Calin-epbx 10,000 unit TUTHSA@2100 SC 08/14/24 21:00 08/16/24 21:27 10,000 UNIT Fentanyl 50 mcg Q72H TD 08/13/24 21:00 08/16/24 21:30 50 MCG Albumin Human 100 ml @ 100 mls/hr PRN PRN IV 08/16/24 16:00 08/16/24 16:09 100 MLS/HR Acetaminophen/ Hydrocodone Bitart 1 tab Q4HPRN PRN PO 08/17/24 13:00 08/17/24 13:20 1 TAB Acetaminophen/ Hydrocodone Bitart 1 tab Q4HPRN PRN PO 08/17/24 13:30 objective Gen.: Patient lying in bed in medical ICU. On mechanical ventilator. S/p trach Head: Normocephalic, atraumatic. Eyes: PERRLA. Ears: Normal external anatomy. Neck: Trach in place. Chest: Transmitted breath sounds bilaterally. Decreased air entry bilaterally. No wheezing. Bibasilar crackles. Cardiovascular: Positive S1, positive S2. Regular rate and rhythm. Abdomen: Positive bowel sounds in all 4 quadrants. Soft, nontender, nondistended. : Rubio in place. Normal external genitalia. Rectal: Deferred. Skin: Warm, dry. Intact. Extremities: 2+ radial pulses bilaterally. No lower extremity edema. Neuro: Off sedation laboratory and microbiology Laboratory Tests 08/17/24 05:12 Test 08/17/24 05:12 Range/Units Serum Glucose 117 H 74-106 mg/dL Assessment/Plan Impression: Acute hypoxic respiratory failure On mechanical ventilator Multifocal pneumonia Atelectasis Congestive heart failure Tracheostomy Pneumothorax Events: CXR reviewed, demonstrates stable interstitial infiltrates in the mid to lower lungs and probable small left pleural effusion Remains on vent via trach On A/C mode with RR 20 -->12, VT 450, PEEP 5, FiO2 50% Pt underwent hemodialysis yesterday Off Fentanyl drip Off Levophed this evening Requiring pressors intermittently for hemodynamic support S/p trach S/p PEG. Trach care Pulmonary toileting Continue bronchodilators Continue antibiotics Follow up cultures Wound care. Tube feeds for nutritional support via PEG. HOB elevation Aspiration precautions. Pain control Avoid oversedation HD per Nephrology. Monitor renal function Monitor electrolytes. Supplement as necessary. Potassium supplementation Awaiting LTAC placement. S/p therapeutic bronchoscopy on 08/09/24 with RML BAL. Cleared mucous plugging from L1-L10 and R1-R10 Please see separate procedure notes for details. S/p bronchoscopy with BAL on 07/08/24. See procedure note for full details. Rest of plan as noted below Plan: S/p trach, trach collar - currently on vent, On A/C mode with RR 12, VT 450, PEEP 5, FiO2 50% Fentanyl for analgesia Pressors as necessary for hemodynamic support Titrate to keep mean arterial pressure greater than 65 mmHg Antibiotics Bronchodilators IV fluid hydration Maintain euvolemia Monitor renal function Monitor electrolytes. Supplement as necessary. Monitor ins and outs. Tube feeds for nutritional support. GI prophylaxis. DVT prophylaxis. Prognosis: Poor given patient's multiple co-morbidities. Condition: Critical Rest of plan per hospitalist and other consultants. A total of 35 minutes of critical care time was spent reviewing the patient record, examining the patient, making a diagnostic and therapeutic plan, discussing this plan with the medical personnel, following up on diagnostic studies and following the patient for clinical stability excluding any and all procedures. At least 50% of this time was spent in direct, [id number] contact. Thank you Anthony Ugalde NP, for allowing me to participate in this patient's care. Further recommendations will depend on the patient's clinical course. Please do not hesitate to contact me if you have any questions or concerns. This medical document was created using an electronic medical record system with [employer] dictation system. Although these documentations are being carefully reviewed, there may still be some phonetic and typographical changes. The errors are purely typographical, due to imperfection on the software program, and do not reflect any compromise in the patient's medical care. Dietary Evaluation Review Comments: 1) If GI is assessible consider Jevity 1.2 @ 60 ml/hr x24 hrs goal rate as tolerated 2) If pt remains NPO >7 days consider TPN to meet at least 75% of estimated needs 3) Advance pt diet when medically feasible to a Cardiac/Renal Specific K2,2gmNA,low phos,60g Pro diet modified per STONE DECORATOR recommendations 4) Continue current plan of care Expected Outcomes/Goals: 1) Pt to receive adequate nutrition support 2) Pt diet to advance Plan discussed with: Patient, Other (DORCAS Cisneros) Critical Care Time(min): 35 CC Plasma Assessment Blood Product Administration S: [id number] ELIANE ALTAMIRANO MD Aug 17, 2024 21:28
[2024-08-18] VITALS (79 sets, daily range): BP systolic 76–142; BP diastolic 46–86; PULSE 84–109; RESP 12–39; TEMP 98–99.2; O2SAT 90–100
--- NOTE | 2024-08-18 05:21 | DVH ---
EXAM: XR Chest, 1 View CLINICAL INDICATION: ventillated TECHNIQUE: Frontal view of the chest. COMPARISON: XY CHEST PORTABLE on DOS: 08/17/24, XY CHEST XRAY 1 VIEW on DOS: 08/16/24, XY CHEST PORTABL E on DOS: 08/16/24, XY CHEST PORTABLE on DOS: 08/14/24, XY CHEST PORTABLE on DOS: 08/12/24 FINDINGS: LUNGS AND PLEURAL SPACES: Decreasing bibasilar atelectasis or pneumonia. No pneumothorax. HEART: Unremarkable. No cardiomegaly. MEDIASTINUM: Unremarkable. Normal mediastinal contour. BONES/JOINTS: Unremarkable. No acute fracture. TUBES, LINES AND DEVICES: Stable tubes and lines. OTHER FINDINGS: . . IMPRESSION: Decreasing bibasilar atelectasis or pneumonia.
[2024-08-18 05:48] LABS: Basophils # (auto) 0 10 ^3/uL (0-0.2); Basophils % (auto) 0.4 % (0.0-2.0); Eosinophils # (auto) 0.4 10 ^3/uL (0-0.8); Mean Corpuscular Volume 99.2 fL (80.0-100.0); Monocytes # (auto) 0.7 10 ^3/uL (0-1.3); Nucleated Red Blood Cells % 0.1 %; White Blood Cell 9.2 10^3/uL (4.4-10.8)
[2024-08-18 05:50] LABS: Eosinophils % (auto) 3.8 % (0.0-7.0); Hematocrit 23.8 % (41.0-53.0); Hemoglobin 7.9 g/dL (13.5-17.5); Lymphocytes % (auto) 11.1 % (10.0-50.0); Mean Corpuscular Hemoglobin 32.8 pg (28.0-32.0); Monocytes % (auto) 7.9 % (0.0-12.0); Neutrophils % (auto) 76.8 % (37.0-80.0); Platelet Count (auto) 204 10^3/uL (140-450); Red Cell Distribution Width 17.9 % (11.8-14.3)
[2024-08-18 05:57] LABS: Alanine Aminotransferase 20 U/L (7-40); Anion Gap 11 (5-15); Aspartate Aminotransferase 30 U/L (13-40); Carbon Dioxide 30 mmol/L (20-31); Chloride 99 mmol/L (98-107); Glucose 97 mg/dL (74-106); Magnesium 2.1 mg/dL (1.6-2.6); Potassium 3.9 mmol/L (3.5-5.1); Sodium 140 mmol/L (136-145)
[2024-08-18 05:58] LABS: Albumin 3.6 g/dL (3.2-4.8)
[2024-08-18 05:59] LABS: Total Protein 7.2 g/dL (5.7-8.2)
[2024-08-18 06:21] LABS: Alkaline Phosphatase 162 U/L (46-116); Bilirubin, Total < 0.2 mg/dL (0.2-1.0); Blood Urea Nitrogen 70 mg/dL (9-23); Calcium 11.7 mg/dL (8.7-10.4)
[2024-08-18] MEDS: SODIUM CHL 0.9% 1000 ML BAG XX ONE (13:35)
--- NOTE | 2024-08-18 13:38 | DVHPN2 ---
Progress Note Date Seen: Aug 18, 2024 Has the PT tested + for MRSA If YES, has PT been informed?: Yes Medical Necessity Reason Pt with a Central, PICC or Fol: Yes The following are medically ne: Central Line, Rubio Catheter Reason for rubio catheter: Strict I&O Subjective Patient reports: Other (no events) Review of Systems: HEENT:Abnormal, MSK:Abnormal Objective vital signs Vital Sign Date Time Temp Pulse Resp B/P (MAP) Pulse Ox O2 Delivery O2 Flow Rate FiO2 08/18/24 13:00 95 22 90/55 (67) 95 08/18/24 12:00 Mechanical Ventilator+ 45 45 08/18/24 08:00 99.2 99.2 Total Intake and Output 08/17/24 08/17/24 08/18/24 15:00 23:00 07:00 Intake Total 611.25 ml 812.834 ml 1123.666 ml Output Total 0 ml 80 ml Balance 611.25 ml 812.834 ml 1043.666 ml medications Current Medications Medications Dose Ordered Sig/[place] Route Start Time Stop Time Status Last Admin Dose Admin Enoxaparin Sodium 40 mg DAILY SC 06/10/24 10:00 UNV Enoxaparin Sodium 40 mg DAILY SC 06/17/24 10:00 UNV Lactulose 30 ml [id number] PRN PEG 07/01/24 10:15 07/27/24 09:15 30 ML Metoprolol Tartrate 50 mg BID PO 07/01/24 22:00 08/18/24 09:25 50 MG Heparin Sodium (Porcine) 4,000 units JACKY PRN XX 07/09/24 11:00 08/16/24 17:33 4,000 UNITS Acetylcysteine 200 mg Q6HR NEB 07/14/24 12:00 08/18/24 11:51 200 MG Albuterol 2.5 mg Q6HR NEB 07/14/24 12:00 08/18/24 11:50 2.5 MG Ipratropium [place] 0.5 mg Q6HR NEB 07/14/24 12:00 08/18/24 11:50 0.5 MG Acetaminophen 650 mg Q6HP PRN PO 07/22/24 19:53 08/17/24 10:59 650 MG Omeprazole 20 mg DAILY GT 07/28/24 10:00 08/18/24 09:25 20 MG Enteral Nutritional Formula 1,000 ml 60ML/HR GT 07/28/24 11:45 08/18/24 03:20 1,000 ML Lorazepam 0.25 mg Q12HP PRN PO 07/28/24 17:15 08/17/24 10:01 0.25 MG Heparin Sodium (Porcine) 5,000 units Q12HR SC 07/28/24 22:00 08/18/24 09:54 5,000 UNITS Epoetin Calin-epbx 10,000 unit TUTHSA@2100 SC 08/14/24 21:00 08/16/24 21:27 10,000 UNIT Fentanyl 50 mcg Q72H TD 08/13/24 21:00 08/16/24 21:30 50 MCG Albumin Human 100 ml @ 100 mls/hr PRN PRN IV 08/16/24 16:00 08/16/24 16:09 100 MLS/HR Examination: LUNGS:Abnormal, MSK:Abnormal, SKIN:Abnormal laboratory and microbiology Laboratory Tests 08/18/24 05:06 Test 08/18/24 05:06 Range/Units Serum Glucose 97 74-106 mg/dL Microbiology Date/Time Source Procedure Growth Status 07/24/24 18:34 Trachea Gram Stain - Final Complete 07/24/24 18:34 Respiratory Culture - Final Pseudomonas aeruginosa Complete 07/24/24 15:15 Blood Blood Culture - Final NO GROWTH AFTER 5 DAYS OF INCUBATION. Complete 07/18/24 22:30 Urine - Suprapubic Aspirate Urine Culture - Final Complete 06/11/24 16:06 Bronchial Washings Gram Stain - Final Complete 06/11/24 16:06 Respiratory Culture - Final Acinetobacter baumannii Pseudomonas aeruginosa Complete 05/30/24 11:45 Pleural Fluid Gram Stain - Final Complete 05/30/24 11:45 Pleural Fluid Body Fluid Culture - Final Complete Problem List/Assessment/Plan Problem List/Assessment/Plan Acute kidney injury on ckd 4 - now progressed to ESRD Acute respiratory failure advanced a chronic respiratory failure status post trach now trach Septic shock resolved due to multidrug resistant organisms Peripheral artery disease Coronary artery disease Severe protein calorie malnutrition anemia due to ckd hyperkalemia hyperphosphatemia resolved HD today no uf today epogen 3x a week Plan discussed with: Other My Orders My Orders Orders - SUKI MERINO MD Procedure Category Date Status Time Hemodialysis Orders ORDERS 08/18/24 Transmitted 12:44 Acute Hepatitis Panel LAB 08/18/24 In Process 12:44 Epoetin Calin-Epbx PHA 08/18/24 In Process (Retacrit) 21:00 Dietary Evaluation Review Comments: 1) If GI is assessible consider Jevity 1.2 @ 60 ml/hr x24 hrs goal rate as tolerated 2) If pt remains NPO >7 days consider TPN to meet at least 75% of estimated needs 3) Advance pt diet when medically feasible to a Cardiac/Renal Specific K2,2gmNA,low phos,60g Pro diet modified per SCREEN MAKING SUPERVISOR recommendations 4) Continue current plan of care Expected Outcomes/Goals: 1) Pt to receive adequate nutrition support 2) Pt diet to advance CC Plasma Assessment Blood Product Administration S: [id number] SUKI MERINO MD Aug 18, 2024 13:38
[2024-08-18 13:57] LABS: Hepatitis B Surface Antigen Negative (Negative)
[2024-08-18 14:17] LABS: Hepatitis A Ab IgM Negative
[2024-08-18 14:22] LABS: Hepatitis B Core IgM Negative (Negative)
[2024-08-18 14:26] LABS: Hepatitis C Antibody Reactive (Negative)
[2024-08-18] MEDS ORDERED: ACETAMINOPHEN 325 MG TAB PO PRN (17:00)
[2024-08-18] MEDS: HYDROcodone-ACET 5/325MG TAB PEG PRN (17:03)
[2024-08-18] MEDS ORDERED: NOREPINEPHRINE 8 MG/250ML KIT 250 ML IV SCH (19:00)
[2024-08-18] MEDS: CIPROFLOXACIN 400MG/200ML 200 ML IV ONE (19:19)
--- NOTE | 2024-08-18 19:51 | DVHPNRES ---
Progress Note Date Seen: Aug 18, 2024 Resident Creating Document: DANGELO COTO RESIDENT Has the PT tested + for MRSA If YES, has PT been informed?: Yes Medical Necessity Reason Pt with a Central, PICC or Fol: Yes The following are medically ne: Central Line, Rubio Catheter Reason for urbio catheter: Strict I&O Subjective Review of Systems pt seen and examined at bedside currently on SIMV mode on [facility] vent received HD today awaiting transport to [facility] facility financial services education consultant consulted ROS could not be done as pt is non-verbal Objective vital signs Vital Sign Date Time Temp Pulse Resp B/P (MAP) Pulse Ox O2 Delivery O2 Flow Rate FiO2 08/18/24 18:30 107 18 107/66 (80) 96 08/18/24 18:00 Mechanical Ventilator+ 45 45 08/18/24 16:00 99.2 99.2 Total Intake and Output 08/17/24 08/17/24 08/18/24 15:00 23:00 07:00 Intake Total 611.25 ml 812.834 ml 1123.666 ml Output Total 0 ml 80 ml Balance 611.25 ml 812.834 ml 1043.666 ml medications Current Medications Medications Dose Ordered Sig/[place] Route Start Time Stop Time Status Last Admin Dose Admin Enoxaparin Sodium 40 mg DAILY SC 06/10/24 10:00 UNV Enoxaparin Sodium 40 mg DAILY SC 06/17/24 10:00 UNV Lactulose 30 ml [id number] PRN PEG 07/01/24 10:15 07/27/24 09:15 30 ML Metoprolol Tartrate 50 mg BID PO 07/01/24 22:00 08/18/24 09:25 50 MG Heparin Sodium (Porcine) 4,000 units JACKY PRN XX 07/09/24 11:00 08/16/24 17:33 4,000 UNITS Acetylcysteine 200 mg Q6HR NEB 07/14/24 12:00 08/18/24 18:48 200 MG Albuterol 2.5 mg Q6HR NEB 07/14/24 12:00 08/18/24 18:47 2.5 MG Ipratropium [place] 0.5 mg Q6HR NEB 07/14/24 12:00 08/18/24 18:48 0.5 MG Omeprazole 20 mg DAILY GT 07/28/24 10:00 08/18/24 09:25 20 MG Enteral Nutritional Formula 1,000 ml 60ML/HR GT 07/28/24 11:45 08/18/24 03:20 1,000 ML Lorazepam 0.25 mg Q12HP PRN PO 07/28/24 17:15 08/17/24 10:01 0.25 MG Heparin Sodium (Porcine) 5,000 units Q12HR SC 07/28/24 22:00 08/18/24 09:54 5,000 UNITS Epoetin Calin-epbx 10,000 unit TUTHSA@2100 SC 08/14/24 21:00 08/16/24 21:27 10,000 UNIT Fentanyl 50 mcg Q72H TD 08/13/24 21:00 08/16/24 21:30 50 MCG Albumin Human 100 ml @ 100 mls/hr PRN PRN IV 08/16/24 16:00 08/16/24 16:09 100 MLS/HR Ciprofloxacin 200 ml @ 200 mls/hr DAILY@2100 IV 08/19/24 21:00 Acetaminophen/ Hydrocodone Bitart 1 tab Q4HPRN PRN PEG 08/18/24 16:45 08/18/24 17:03 1 TAB Acetaminophen 650 mg Q6HP PRN PO 08/18/24 17:00 Examination Examination General Appearance: Nonverbal, on trach collar, on mech vent SIMV mode Respiratory: Clear to auscultation, Normal air movement, on 6 L through Cardiovascular: Regular rate, Normal S1, Normal S2 Abdominal: Normal bowel sounds, peg tube present, suprapubic catheter present, colostomy bag Extremities: Right BKA, 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 Complete 07/18/24 22:30 Urine - Suprapubic Aspirate Urine Culture - Final Complete 06/11/24 16:06 Bronchial Washings Gram Stain - Final Complete 06/11/24 16:06 Respiratory Culture - Final Acinetobacter baumannii Pseudomonas aeruginosa Complete 05/30/24 11:45 Pleural Fluid Gram Stain - Final Complete 05/30/24 11:45 Pleural Fluid Body Fluid Culture - Final Complete Labs and/or images reviewed: Labs reviewed by me, Image(s) reviewed by me Problem List/Assessment/Plan Problem List/Assessment/Plan Assessment/plan Neurology #Sedation -off sedation # acute metabolic encephalopathy likely due to sepsis -resolving, but complete neurological examination cant be accessed as pt is non verbal # history of seizures -History of seizure during last admission (1 month back) used Keppra for 1 week Discontinued Keppra, on 06/16 EEG shows abnormal EEG recording consistent with the presence of a diffuse nonspecific encephalopathic state # history of stroke Old infarct in the right frontal lobe and right parietal occipital lobe, seen on imaging Cardiovascular # shock likely septic -resolved #Hypertension -amlodipine 10 mg daily, clonidine 0.2 mg p.o. b.i.d., hydralazine 100 mg p.o. Q HR, on hold -metoprolol 50 mg p.o. b.i.d, Respiratory # acute hypoxic respiratory failure due to pneumonia s/p tracheostomy 06/13 -albuterol p.r.n., ipratropium neb -on T collar , mech vent SIMV mode # aspiration pneumonia, Gram-positive/Gram-negative -changed to IV ciprofloxacin # pneumomediastinum and pneumopericardium -seen on imaging # left lower lobe atelectasis -seen on imaging #Recurrent mucus plugging -Mucomyst -repeat CXR -s/p multiple bronchoscopy #Small left pneumothorax -monitor with repeat CXR GI # hepatitis-C positive # status post PEG tube 06/15 # S/p Colostomy bag Nephrology # FROYLAN due to hemodynamic mediated likely due to sepsis, requiring dialysis - Homer catheter placed on left internal jugular, on 06/26, removed on 07/04 - tunneled catheter placed to the right upper chest 07/04 -received dialysis as per schedule -on Bumex tablet 2 mg p.o. b.i.d., discontinued by the senior informatica etl developer # hyponatremia, improved monitor # hyperkalemia -monitor # hypomagnesemia -monitor #Hypophosphatemia -corrected Urology # UTI -currently on IV ciprofloxacin # s/p suprapubic catheter Musculoskeletal/dermatological # status post above-knee amputation - due to peripheral arterial disease # decubitus ulcer -wound care Endocrine # secondary hyperparathyroidism -likely due to FROYLAN/CKD # hypocalcemia due to FROYLAN/CKD -on oral calcium, discontinued # hypoglycemia likely due to sepsis -resolved Hematology/oncology # severe anemia requiring transfusion, anemia of chronic disease, macrocytic anemia -monitor CBC -1 unit of PRBC transfusion with Dialysis # thrombocytopenia -monitor CBC Infectious disease # septic shock -resolved -currently on ciprofloxacin Psychiatry #Anxiety -Ativan oral PRN LINES/DRAINS/ACCESS: ETT, intubated on 05/28/2024 and tracheostomy performed on 06/11, PEG tube placed on 06/15 IV access Left internal jugular CVC, placed on 06/26 and removed on 07/04 Right IJ hemodialysis catheter placed 07/04 Left upper PICC line Suprapubic catheter, changed on 07/14/2024 Dripps: Off Nutrition Enteral through PEG tube, nepro with carb steady DVT prophylaxis Started on heparin 5000 subc q.12h, on hold considering severe anemia Peptic ulcer disease prophylaxis Omeprazole 20 mg GT daily Bowel regimen Lactulose 30 mg q.12h Code status discussed with the family for greater than 21 minutes, full code Case discussion with Dr. isabel Critical care excluding procedures : 57 min financial services education consultant consulted for transfer to LTACH facility Plan discussed with: Other My Orders My Orders Orders - DANGELO COTO RESIDENT Procedure Category Date Status Time Imaging Transfer ORDERS 08/18/24 Transmitted Request 13:46 Hydrocodone-Acet PHA 08/18/24 In Process 5/325mg Tab ([place] 16:45 Dietary Evaluation Review Comments: 1) If GI is assessible consider Jevity 1.2 @ 60 ml/hr x24 hrs goal rate as tolerated 2) If pt remains NPO >7 days consider TPN to meet at least 75% of estimated needs 3) Advance pt diet when medically feasible to a Cardiac/Renal Specific K2,2gmNA,low phos,60g Pro diet modified per PLASTIC TILE SETTER recommendations 4) Continue current plan of care Expected Outcomes/Goals: 1) Pt to receive adequate nutrition support 2) Pt diet to advance CC Plasma Assessment Blood Product Administration S: [id number] Date of Service: Aug 18, 2024 Billing Provider: HOLGER ISABEL MD Common Visit Codes: 54168-[id number] CARE 30-74 MIN DANGELO COTO RESIDENT Aug 18, 2024 19:51 HOLGER ISABEL MD Aug 19, 2024 16:18
[2024-08-18] MEDS: EPOETIN ALFA-EPBX 10,000 UNIT/1ML VIAL SC ONE (21:53)
[2024-08-19] VITALS (73 sets, daily range): BP systolic 77–116; BP diastolic 41–71; PULSE 82–104; RESP 10–35; TEMP 97–99.9; O2SAT 91–100
[2024-08-19 05:23] LABS: Basophils # (auto) 0 10 ^3/uL (0-0.2); Basophils % (auto) 0.5 % (0.0-2.0); Eosinophils # (auto) 0.3 10 ^3/uL (0-0.8); Eosinophils % (auto) 4.7 % (0.0-7.0); Lymphocytes # (auto) 0.9 10 ^3/uL (0.4-5.4); Lymphocytes % (auto) 13.1 % (10.0-50.0); Mean Corpuscular Hemoglobin 32.1 pg (28.0-32.0); Mean Corpuscular Hgb Conc. 33.5 g/dL (32.0-36.0); Mean Corpuscular Volume 95.9 fL (80.0-100.0); Monocytes # (auto) 0.4 10 ^3/uL (0-1.3); Monocytes % (auto) 5.6 % (0.0-12.0); Neutrophils # (auto) 5.3 10 ^3/uL (1.6-8.6); Neutrophils % (auto) 76.1 % (37.0-80.0); Platelet Count (auto) 212 10^3/uL (140-450); Red Cell Distribution Width 17.1 % (11.8-14.3); White Blood Cell 6.9 10^3/uL (4.4-10.8)
[2024-08-19 05:31] LABS: Anion Gap 10 (5-15); Carbon Dioxide 31 mmol/L (20-31); Chloride 99 mmol/L (98-107); Sodium 140 mmol/L (136-145)
[2024-08-19 05:37] LABS: BUN/Creatinine Ratio 26.1 (10.0-20.0); Glucose 101 mg/dL (74-106)
[2024-08-19 05:38] LABS: Magnesium 1.9 mg/dL (1.6-2.6)
[2024-08-19 05:46] LABS: Blood Urea Nitrogen 46 mg/dL (9-23); Calcium 11.1 mg/dL (8.7-10.4); Potassium 3.3 mmol/L (3.5-5.1)
[2024-08-19] MEDS: POTASSIUM CHL 20MEQ/100ML 100 ML IV ONE (06:42)
[2024-08-19 07:52] LABS: Base Excess 3.4 mmol/L (-2.0-3.0)
--- NOTE | 2024-08-19 17:55 | DVHPN2 ---
Progress Note Date Seen: Aug 19, 2024 Has the PT tested + for MRSA If YES, has PT been informed?: Yes Medical Necessity Reason Pt with a Central, PICC or Fol: Yes The following are medically ne: Central Line, Rubio Catheter Reason for rubio catheter: Strict I&O Subjective Patient reports: Other Review of Systems: Deferred Objective vital signs Vital Sign Date Time Temp Pulse Resp B/P (MAP) Pulse Ox O2 Delivery O2 Flow Rate FiO2 08/19/24 16:30 99.9 100 11 90/54 (66) 93 99.9 08/19/24 16:11 40 08/19/24 16:00 Mechanical Ventilator+ Total Intake and Output 08/18/24 08/18/24 08/19/24 15:00 23:00 07:00 Intake Total 1538.75 ml 677.25 ml Output Total 250 ml 0 ml 250 ml Balance -250 ml 1538.75 ml 427.25 ml medications Current Medications Medications Dose Ordered Sig/[place] Route Start Time Stop Time Status Last Admin Dose Admin Enoxaparin Sodium 40 mg DAILY SC 06/10/24 10:00 UNV Enoxaparin Sodium 40 mg DAILY SC 06/17/24 10:00 UNV Lactulose 30 ml [id number] PRN PEG 07/01/24 10:15 07/27/24 09:15 30 ML Metoprolol Tartrate 50 mg BID PO 07/01/24 22:00 08/19/24 09:32 50 MG Heparin Sodium (Porcine) 4,000 units JACKY PRN XX 07/09/24 11:00 08/16/24 17:33 4,000 UNITS Acetylcysteine 200 mg Q6HR NEB 07/14/24 12:00 08/19/24 11:46 200 MG Albuterol 2.5 mg Q6HR NEB 07/14/24 12:00 08/19/24 11:45 2.5 MG Ipratropium [place] 0.5 mg Q6HR NEB 07/14/24 12:00 08/19/24 11:46 0.5 MG Omeprazole 20 mg DAILY GT 07/28/24 10:00 08/19/24 09:30 20 MG Enteral Nutritional Formula 1,000 ml 60ML/HR GT 07/28/24 11:45 08/18/24 03:20 1,000 ML Lorazepam 0.25 mg Q12HP PRN PO 07/28/24 17:15 08/17/24 10:01 0.25 MG Heparin Sodium (Porcine) 5,000 units Q12HR SC 07/28/24 22:00 08/19/24 09:33 5,000 UNITS Epoetin Calin-epbx 10,000 unit TUTHSA@2100 SC 08/14/24 21:00 08/16/24 21:27 10,000 UNIT Fentanyl 50 mcg Q72H TD 08/13/24 21:00 08/16/24 21:30 50 MCG Albumin Human 100 ml @ 100 mls/hr PRN PRN IV 08/16/24 16:00 08/16/24 16:09 100 MLS/HR Ciprofloxacin 200 ml @ 200 mls/hr DAILY@2100 IV 08/19/24 21:00 Acetaminophen/ Hydrocodone Bitart 1 tab Q4HPRN PRN PEG 08/18/24 16:45 08/19/24 17:29 1 TAB Acetaminophen 650 mg Q6HP PRN PO 08/18/24 17:00 Norepinephrine Bitartrate 250 ml @ 3.75 mls/hr Q24H IV 08/18/24 19:00 Examination: GENERAL:Abnormal, MSK:Abnormal, SKIN:Abnormal laboratory and microbiology Laboratory Tests 08/19/24 04:51 Test 08/19/24 04:51 Range/Units Serum Glucose 101 74-106 mg/dL Microbiology Date/Time Source Procedure Growth Status 07/24/24 18:34 Trachea Gram Stain - Final Complete 07/24/24 18:34 Respiratory Culture - Final Pseudomonas aeruginosa Complete 07/24/24 15:15 Blood Blood Culture - Final NO GROWTH AFTER 5 DAYS OF INCUBATION. Complete 07/18/24 22:30 Urine - Suprapubic Aspirate Urine Culture - Final Complete 06/11/24 16:06 Bronchial Washings Gram Stain - Final Complete 06/11/24 16:06 Respiratory Culture - Final Acinetobacter baumannii Pseudomonas aeruginosa Complete 05/30/24 11:45 Pleural Fluid Gram Stain - Final Complete 05/30/24 11:45 Pleural Fluid Body Fluid Culture - Final Complete Problem List/Assessment/Plan Problem List/Assessment/Plan Acute kidney injury on ckd 4 - now progressed to ESRD Acute respiratory failure advanced a chronic respiratory failure status post trach now trach Septic shock resolved due to multidrug resistant organisms Peripheral artery disease Coronary artery disease Severe protein calorie malnutrition anemia due to ckd hyperkalemia hyperphosphatemia resolved HD tomorrow epogen 3x a week Plan discussed with: Patient Dietary Evaluation Review Comments: 1) If GI is assessible consider Jevity 1.2 @ 60 ml/hr x24 hrs goal rate as tolerated 2) If pt remains NPO >7 days consider TPN to meet at least 75% of estimated needs 3) Advance pt diet when medically feasible to a Cardiac/Renal Specific K2,2gmNA,low phos,60g Pro diet modified per UNIVERSITY ADMINISTRATOR recommendations 4) Continue current plan of care Expected Outcomes/Goals: 1) Pt to receive adequate nutrition support 2) Pt diet to advance CC Plasma Assessment Blood Product Administration S: [id number] SUKI MERINO MD Aug 19, 2024 17:55
--- NOTE | 2024-08-19 20:18 | DVHPNRES ---
Progress Note Date Seen: Aug 19, 2024 Resident Creating Document: DANGELO COTO RESIDENT Has the PT tested + for MRSA If YES, has PT been informed?: Yes Medical Necessity Reason Pt with a Central, PICC or Fol: Yes The following are medically ne: Central Line, Rubio Catheter Reason for rubio catheter: Strict I&O Subjective Review of Systems pt seen and examined at bedside currently on SIMV mode on [facility] vent received HD yesterday awaiting transport to [facility] facility pt was off pressors today, was on pressors special services agent consulted ROS could not be done as pt is non-verbal Objective vital signs Vital Sign Date Time Temp Pulse Resp B/P (MAP) Pulse Ox O2 Delivery O2 Flow Rate FiO2 08/19/24 18:32 104 21 98/53 (68) 95 40 08/19/24 18:32 Mechanical Ventilator 08/19/24 16:30 99.9 99.9 Total Intake and Output 08/18/24 08/18/24 08/19/24 15:00 23:00 07:00 Intake Total 1538.75 ml 677.25 ml Output Total 250 ml 0 ml 250 ml Balance -250 ml 1538.75 ml 427.25 ml medications Current Medications Medications Dose Ordered Sig/[place] Route Start Time Stop Time Status Last Admin Dose Admin Enoxaparin Sodium 40 mg DAILY SC 06/10/24 10:00 UNV Enoxaparin Sodium 40 mg DAILY SC 06/17/24 10:00 UNV Lactulose 30 ml [id number] PRN PEG 07/01/24 10:15 07/27/24 09:15 30 ML Metoprolol Tartrate 50 mg BID PO 07/01/24 22:00 08/19/24 09:32 50 MG Heparin Sodium (Porcine) 4,000 units JACKY PRN XX 07/09/24 11:00 08/16/24 17:33 4,000 UNITS Acetylcysteine 200 mg Q6HR NEB 07/14/24 12:00 08/19/24 18:33 200 MG Albuterol 2.5 mg Q6HR NEB 07/14/24 12:00 08/19/24 18:32 2.5 MG Ipratropium [place] 0.5 mg Q6HR NEB 07/14/24 12:00 08/19/24 18:32 0.5 MG Omeprazole 20 mg DAILY GT 07/28/24 10:00 08/19/24 09:30 20 MG Enteral Nutritional Formula 1,000 ml 60ML/HR GT 07/28/24 11:45 08/18/24 03:20 1,000 ML Lorazepam 0.25 mg Q12HP PRN PO 07/28/24 17:15 08/17/24 10:01 0.25 MG Heparin Sodium (Porcine) 5,000 units Q12HR SC 07/28/24 22:00 08/19/24 09:33 5,000 UNITS Epoetin Calin-epbx 10,000 unit TUTHSA@2100 SC 08/14/24 21:00 08/16/24 21:27 10,000 UNIT Fentanyl 50 mcg Q72H TD 08/13/24 21:00 08/16/24 21:30 50 MCG Albumin Human 100 ml @ 100 mls/hr PRN PRN IV 08/16/24 16:00 08/16/24 16:09 100 MLS/HR Ciprofloxacin 200 ml @ 200 mls/hr DAILY@2100 IV 08/19/24 21:00 Acetaminophen/ Hydrocodone Bitart 1 tab Q4HPRN PRN PEG 08/18/24 16:45 08/19/24 17:29 1 TAB Acetaminophen 650 mg Q6HP PRN PO 08/18/24 17:00 Norepinephrine Bitartrate 250 ml @ 3.75 mls/hr Q24H IV 08/18/24 19:00 Examination Examination General Appearance: Nonverbal, on trach collar, on mech vent SIMV mode Respiratory: Clear to auscultation, Normal air movement, on 6 L through Cardiovascular: Regular rate, Normal S1, Normal S2 Abdominal: Normal bowel sounds, peg tube present, suprapubic catheter present, colostomy bag Extremities: Right BKA, 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 Complete 07/18/24 22:30 Urine - Suprapubic Aspirate Urine Culture - Final Complete 06/11/24 16:06 Bronchial Washings Gram Stain - Final Complete 06/11/24 16:06 Respiratory Culture - Final Acinetobacter baumannii Pseudomonas aeruginosa Complete 05/30/24 11:45 Pleural Fluid Gram Stain - Final Complete 05/30/24 11:45 Pleural Fluid Body Fluid Culture - Final Complete Labs and/or images reviewed: Labs reviewed by me, Image(s) reviewed by me Problem List/Assessment/Plan Problem List/Assessment/Plan Assessment/plan Neurology #Sedation -off sedation # acute metabolic encephalopathy likely due to sepsis -resolving, but complete neurological examination cant be accessed as pt is non verbal # history of seizures -History of seizure during last admission (1 month back) used Keppra for 1 week Discontinued Keppra, on 06/16 EEG shows abnormal EEG recording consistent with the presence of a diffuse nonspecific encephalopathic state # history of stroke Old infarct in the right frontal lobe and right parietal occipital lobe, seen on imaging Cardiovascular # shock likely septic -resolved #Hypertension -amlodipine 10 mg daily, clonidine 0.2 mg p.o. b.i.d., hydralazine 100 mg p.o. Q HR, on hold -metoprolol 50 mg p.o. b.i.d Respiratory # acute hypoxic respiratory failure due to pneumonia s/p tracheostomy 06/13 -albuterol p.r.n., ipratropium neb -on T collar , mech vent SIMV mode # aspiration pneumonia, Gram-positive/Gram-negative -changed to IV ciprofloxacin # pneumomediastinum and pneumopericardium -seen on imaging # left lower lobe atelectasis -seen on imaging #Recurrent mucus plugging -Mucomyst -repeat CXR -s/p multiple bronchoscopy #Small left pneumothorax -monitor with repeat CXR GI # hepatitis-C positive # status post PEG tube 06/15 # S/p Colostomy bag Nephrology # FROYLAN due to hemodynamic mediated likely due to sepsis, requiring dialysis - Homer catheter placed on left internal jugular, on 06/26, removed on 07/04 - tunneled catheter placed to the right upper chest 07/04 -received dialysis as per schedule -on Bumex tablet 2 mg p.o. b.i.d., discontinued by the cement kiln operator # hyponatremia, improved monitor # hyperkalemia -monitor # hypomagnesemia -monitor #Hypophosphatemia -corrected Urology # UTI -currently on IV ciprofloxacin # s/p suprapubic catheter Musculoskeletal/dermatological # status post above-knee amputation - due to peripheral arterial disease # decubitus ulcer -wound care Endocrine # secondary hyperparathyroidism -likely due to FROYLAN/CKD # hypocalcemia due to FROYLAN/CKD -on oral calcium, discontinued # hypoglycemia likely due to sepsis -resolved Hematology/oncology # severe anemia requiring transfusion, anemia of chronic disease, macrocytic anemia -monitor CBC -1 unit of PRBC transfusion with Dialysis # thrombocytopenia -monitor CBC Infectious disease # septic shock -resolved -currently on ciprofloxacin Psychiatry #Anxiety -Ativan oral PRN LINES/DRAINS/ACCESS: ETT, intubated on 05/28/2024 and tracheostomy performed on 06/11, PEG tube placed on 06/15 IV access Left internal jugular CVC, placed on 06/26 and removed on 07/04 Right IJ hemodialysis catheter placed 07/04 Left upper PICC line Suprapubic catheter, changed on 07/14/2024 Dripps: Off Nutrition Enteral through PEG tube, nepro with carb steady DVT prophylaxis Started on heparin 5000 subc q.12h, on hold considering severe anemia Peptic ulcer disease prophylaxis Omeprazole 20 mg GT daily Bowel regimen Lactulose 30 mg q.12h Code status discussed with the family for greater than 21 minutes, full code Case discussion with Dr. sanchez Critical care excluding procedures : 57 min special services agent consulted for transfer to LTACH facility Plan discussed with: Other My Orders My Orders Orders - DANGELO COTO Procedure Category Date Status Time Abg W/ Co-Ox RT 08/19/24 Logged 06:00 Dietary Evaluation Review Comments: 1) If GI is assessible consider Jevity 1.2 @ 60 ml/hr x24 hrs goal rate as tolerated 2) If pt remains NPO >7 days consider TPN to meet at least 75% of estimated needs 3) Advance pt diet when medically feasible to a Cardiac/Renal Specific K2,2gmNA,low phos,60g Pro diet modified per FIELD EVIDENCE TECHNICIAN recommendations 4) Continue current plan of care Expected Outcomes/Goals: 1) Pt to receive adequate nutrition support 2) Pt diet to advance CC Plasma Assessment Blood Product Administration S: [id number] DANGELO COTO RESIDENT Aug 19, 2024 20:18
--- NOTE | 2024-08-19 20:22 | DVHDSRES ---
Discharge Summary Date of Admission Resident Creating Document: DANGELO EVANGELISTA RESIDENT May 28, 2024 at 23:54 Date of Discharge: Aug 18, 2024 Labs/Diagnostic Data: Laboratory Results Test 08/19/24 07:44 08/19/24 04:51 08/18/24 05:06 08/16/24 08:01 Blood Gas Specimen Type Arterial Blood Gas Sample Site Right brachial Blood Gas Patient Temperature 37.0 Arterial Blood Date Drawn [id number] Arterial Blood pH 7.515 (7.350-7.450) Arterial Blood Partial Pressure CO2 33.4 mmHg (35.0-48.0) Arterial Blood Partial Pressure O2 69.2 mmHg (83.0-108.0) Arterial Blood HCO3 26.4 mmol/L (21.0-28.0) Arterial Blood Oxygen Saturation 93.6 % (94.0-98.0) Arterial Blood Base Excess 3.4 mmol/L (-2.0-3.0) Arterial Blood Oxyhemoglobin 92.0 % (94.0-98.0) Arterial Blood Carboxyhemoglobin 1.0 % (0.5-1.5) Arterial Blood Methemoglobin 0.7 % (0.0-1.5) Bruno Test N/a Blood Gas Total Hemoglobin 8.30 g/dL (13.5-17.5) Blood Gas Set Respiration Rate 12.0 Blood Gas Modality Vent - simv FiO2 % 40.0 Blood Gas Tidal Volume 450.0 Blood Gas PEEP or CPAP 5.0 White Blood Count 6.9 10^3/uL (4.4-10.8) Red Blood Count 2.50 10^6/uL (4.5-5.90) Hemoglobin 8.0 g/dL (13.5-17.5) Hematocrit 24.0 % (41.0-53.0) Mean Corpuscular Volume 95.9 fL (80.0-100.0) Mean Corpuscular Hemoglobin 32.1 pg (28.0-32.0) Mean Corpuscular Hemoglobin Concent 33.5 g/dL (32.0-36.0) Red Cell Distribution Width 17.1 % (11.8-14.3) Platelet Count 212 10^3/uL (140-450) Mean Platelet Volume 8.7 fL (6.9-10.8) Neutrophils (%) (Auto) 76.1 % (37.0-80.0) Lymphocytes (%) (Auto) 13.1 % (10.0-50.0) Monocytes (%) (Auto) 5.6 % (0.0-12.0) Eosinophils (%) (Auto) 4.7 % (0.0-7.0) Basophils (%) (Auto) 0.5 % (0.0-2.0) Neutrophils # (Auto) 5.3 10 ^3/uL (1.6-8.6) Lymphocytes # (Auto) 0.9 10 ^3/uL (0.4-5.4) Monocytes # (Auto) 0.4 10 ^3/uL (0-1.3) Eosinophils # (Auto) 0.3 10 ^3/uL (0-0.8) Basophils # (Auto) 0 10 ^3/uL (0-0.2) Nucleated Red Blood Cells 0.0 % Sodium Level 140 mmol/L (136-145) Potassium Level 3.3 mmol/L (3.5-5.1) Chloride Level 99 mmol/L (98-107) Carbon Dioxide Level 31 mmol/L (20-31) Anion Gap 10 (5-15) Blood Urea Nitrogen 46 mg/dL (9-23) Creatinine 1.76 mg/dL (0.700-1.30) Glomerular Filtration Rate Calc 41 mL/min (>90) BUN/Creatinine Ratio 26.1 (10.0-20.0) Serum Glucose 101 mg/dL (74-106) Calcium Level 11.1 mg/dL (8.7-10.4) Magnesium Level 1.9 mg/dL (1.6-2.6) Total Bilirubin < 0.2 mg/dL (0.2-1.0) Aspartate Amino Transferase (AST) 30 U/L (13-40) Alanine Aminotransferase (ALT) 20 U/L (7-40) Alkaline Phosphatase 162 U/L (46-116) Total Protein 7.2 g/dL (5.7-8.2) Albumin 3.6 g/dL (3.2-4.8) Hepatitis A IgM Antibody Negative Hepatitis B Surface Antigen Negative (Negative) Hepatitis B Core IgM Antibody Negative (Negative) Hepatitis C Antibody Reactive (Negative) Blood Gas Spontaneous Rate 35 Blood Gas Pressure Support 8 Test 08/16/24 05:23 08/15/24 07:37 08/13/24 08:50 08/12/24 09:40 Phosphorus Level 1.4 mg/dL (2.4-5.1) Parathyroid Hormone (Intact) 62.9 pg/mL (18.4-80.1) Blood Gas Critical Value Read Back Yes Blood Gas Spontaneous Tidal Volume 312 Blood Gas Notified Whom roula Evangelista md Blood Gas Notified Time [id number] Blood Gas Notified By Jose lester rrt Stool Occult Blood Negative (Negative) Stool Occult Blood Sample #3 (Negative) Test 08/08/24 22:25 08/08/24 18:48 08/08/24 18:47 08/08/24 18:31 Troponin I High Sensitivity 89 ng/L (</=54) Prothrombin Time 11.9 sec (9.3-11.8) Prothrombin Time INR 1.14 (0.9-1.15) Activated Partial Thromboplast Time 32.2 SEC (24.5-34.5) Lactic Acid Level 1.9 mmol/L (0.4-2.0) Ammonia < 10 umol/L (11-32) Venous Blood pH 7.289 (7.320-7.430) Venous Blood pCO2 at Patient Temp 81.4 mmHg (38.0-54.0) Venous Blood pO2 at Patient Temp 49.2 mmHg (23.0-48.0) Venous Blood HCO3 38.2 mmol/L (22.0-29.0) Venous Blood Base Excess 8.0 mmol/L (-2.0-3.0) POC Glucose 116 mg/dl (70-106) Test 08/08/24 08:15 07/28/24 05:15 07/21/24 18:49 07/18/24 22:30 Blood Gas Liter Flow 8.00 Differential Total Cells Counted 100.0 (100) Neutrophils % (Manual) 70 (37.0-80.0) Band Neutrophils % (Manual) 1 Lymphocytes % (Manual) 16 (10.0-50.0) Monocytes % (Manual) 4 (0-12) Eosinophils % (Manual) 9 (0-7) Basophils % (Manual) 0 (0.0-2.0) Metamyelocytes % (manual) 0 Myelocytes % (Manual) 0 Promyelocytes % (Manual) 0 Blast Cells % (Manual) 0 Reactive Lymphocytes 0 Platelet Estimate Adequate Hepatitis B Surface Antibody Negative (Negative) Urine Color Yellow (Yellow) Urine Clarity Turbid (Clear) Urine pH 8.5 (5.0-9.0) Urine Specific [place] 1.016 (1.001-1.035) Urine Protein 3+ (Negative) Urine Ketones Negative (Negative) Urine Blood Negative /uL (Negative) Urine Nitrite Negative (Negative) Urine Bilirubin Negative (Negative) Urine Urobilinogen Normal mg/dL (Negative) Urine Leukocyte Esterase 1+ /uL (Negative) Urine RBC 9 /hpf (0 - 3) Urine WBC 38 /hpf (0 - 3) Urine Squamous Epithelial Cells Mod /hpf (<5) Urine Transitional Epithelial Cells Few /hpf (<2) Urine Renal Epithelial Cells Few /hpf (None Seen) Urine Bacteria Few /hpf (None Seen) Urine Mucus Few (None Seen) Urine Glucose 1+ mg/dL (Normal) Test 07/17/24 04:49 07/12/24 04:47 07/04/24 04:36 06/30/24 04:40 Iron Level 29 ug/dL (65-175) Total Iron Binding Capacity 129 ug/dL (250-425) Percent Iron Saturation 22.5 % (20-55) Ferritin 925.0 ng/mL (22-322) Vitamin B12 Level 662 pg/mL (211-911) Vitamin D 25-Hydroxy 43.9 ng/mL (30.0-100) Folic Acid 5.15 ng/mL (>5.38) Anisocytosis (manual) Slight Smudge Cells 1 /100 WBC B-Type Natriuretic Peptide 767.88 pg/mL (0-100) Test 06/28/24 04:27 06/27/24 05:02 06/16/24 01:00 06/12/24 07:55 Random Vancomycin Level 29.9 ug/mL (5-10) Estimated GFR () 24 mL/min Estimated GFR (Non- 19 mL/min Influenza Type A Antigen Negative (Negative) Influenza Type B Antigen Negative (Negative) SARS-CoV-2 Antigen (Rapid) Negative (NEGATIVE) Blood Gas Inspiratory Pressure 18.0 Bl Gas Inspiratory/Expiratory Ratio 1:1.2 Specimen Drawn By humzae rt Test 06/10/24 01:12 06/05/24 03:09 06/01/24 03:00 05/30/24 11:45 Blood Gas EPAP 5 Blood Gas IPAP 12 Large Platelets Few Uric Acid 9.3 mg/dL (3.7-9.2) Body Fluid Source Pleural fluid Body Fluid pH 7.0 Body Fluid WBC (Manual) 479 CUMM (0-200) Body Fluid RBC (Manual) 842 CUMM (0-2000) Body Fluid Mononuclear Cells 86 % Body Fluid Polymorphonuclear Cells 14 % (0-25) Body Fluid Glucose 68 mg/dL (.) Body Fluid Total Protein 2.4 g/dL (.) Body Fluid Lactate Dehydrogenase 101 IU/L (.) Test 05/30/24 04:30 05/30/24 03:06 05/29/24 08:30 05/28/24 22:36 Urine Creatinine 33.57 mg/dL (30.0-125.0) Urine Sodium 85 mmol/L (40-220) Urine Opiates Screen Neg (NEGATIVE) Urine Fentanyl Screen Pos (NEGATIVE) Urine Barbiturates Screen Neg (NEGATIVE) Urine Phencyclidine Screen Neg (NEGATIVE) Urine Amphetamines Screen Neg (NEGATIVE) Urine Benzodiazepines Screen Pos (NEGATIVE) Urine Cocaine Screen Neg (NEGATIVE) Urine Cannabinoids Screen Neg (NEGATIVE) Lactate Dehydrogenase 149 U/L (120-246) Thyroid Stimulating Hormone (TSH) 2.47 uIU/mL (0.55-4.78) Urine WBC Clumps Present /hpf (None Seen) Test 05/28/24 21:43 Macrocytosis Slight Other Laboratory Tests 08/19/24 04:51 Condition at Discharge: Guarded Final Diagnosis/Problems List resp failure s/p tracheostomy Discharge Disposition: Inpatient Rehab Facility Discharge Instruct/Medications Diet: See Comment Diet comment: tube feedings Activity: Bed rest Follow Up/Referral: fu with pcp/dialysis Medications: per sep Discharge Statement: "Patient was advised to return to the ER or call 911 if any headaches, dizziness, shortness of breath, chest pain, abdominal pain, bleeding, fevers, or worsening of medical condition. Patient was counseled about treatment plan, medications, possible side effects, patientverbalized understanding. All questions were answered to the best of my ability. This discharge took greater then 30 minutes in planning, reviewing documentation, counseling the patient, and discussing with other team members." ASSESSMENT ASSESSMENT Assessment resp failure s/p tracheostomy DANGELO EVANGELISTA RESIDENT Aug 19, 2024 20:22
[2024-08-19] MEDS ORDERED: CIPROFLOXACIN 400MG/200ML 200 ML IV SCH (21:00)
== END 2024-08-19 19:45 | DRG 4 ==
LOC: ER 20:43 → EDBD 20:43 → TELE 23:54 → ICU WEST 05-29 16:10 → ICU CENTRL 06-16 15:55 → TELE-CENTR 07-30 18:59 → ICU CENTRL 08-08 20:30
PROVIDERS: ADMIT Internal Medicine; ATTEND Internal Medicine
PROC: 5A1955Z Respiratory Ventilation, Greater than 96 Consecutive Hours (ICD-10-PCS; principal; 2024-05-28)
PROC: 02HV33Z Insertion of Infusion Device into Superior Vena Cava, Percutaneous Approach (ICD-10-PCS; 2024-05-28)
PROC: 0BH17EZ Insertion of Endotracheal Airway into Trachea, Via Natural or Artificial Opening (ICD-10-PCS; 2024-05-28)
PROC: 30233N1 Transfusion of Nonautologous Red Blood Cells into Peripheral Vein, Percutaneous Approach (ICD-10-PCS; 2024-05-29)
PROC: 0W9B3ZZ Drainage of Left Pleural Cavity, Percutaneous Approach (ICD-10-PCS; 2024-05-30)
PROC: 0B9B8ZZ Drainage of Left Lower Lobe Bronchus, Via Natural or Artificial Opening Endoscopic (ICD-10-PCS; 2024-05-30)
PROC: 0B968ZZ Drainage of Right Lower Lobe Bronchus, Via Natural or Artificial Opening Endoscopic (ICD-10-PCS; 2024-05-30)
PROC: 02HV33Z Insertion of Infusion Device into Superior Vena Cava, Percutaneous Approach (ICD-10-PCS; 2024-06-01)
PROC: 0T2BX0Z Change Drainage Device in Bladder, External Approach (ICD-10-PCS; 2024-06-02)
PROC: 0B9D8ZX Drainage of Right Middle Lung Lobe, Via Natural or Artificial Opening Endoscopic, Diagnostic (ICD-10-PCS; 2024-06-02)
PROC: 5A1D70Z Performance of Urinary Filtration, Intermittent, Less than 6 Hours Per Day (ICD-10-PCS; 2024-06-02)
PROC: 02PYX3Z Removal of Infusion Device from Great Vessel, External Approach (ICD-10-PCS; 2024-06-03)
PROC: 02HV33Z Insertion of Infusion Device into Superior Vena Cava, Percutaneous Approach (ICD-10-PCS; 2024-06-03)
PROC: 5A1D70Z Performance of Urinary Filtration, Intermittent, Less than 6 Hours Per Day (ICD-10-PCS; 2024-06-03)
PROC: 5A1D70Z Performance of Urinary Filtration, Intermittent, Less than 6 Hours Per Day (ICD-10-PCS; 2024-06-05)
PROC: 5A1D70Z Performance of Urinary Filtration, Intermittent, Less than 6 Hours Per Day (ICD-10-PCS; 2024-06-07)
PROC: 5A09357 Assistance with Respiratory Ventilation, Less than 24 Consecutive Hours, Continuous Positive Airway Pressure (ICD-10-PCS; 2024-06-09)
PROC: 0B978ZZ Drainage of Left Main Bronchus, Via Natural or Artificial Opening Endoscopic (ICD-10-PCS; 2024-06-09)
PROC: 0B938ZZ Drainage of Right Main Bronchus, Via Natural or Artificial Opening Endoscopic (ICD-10-PCS; 2024-06-09)
PROC: 0BH17EZ Insertion of Endotracheal Airway into Trachea, Via Natural or Artificial Opening (ICD-10-PCS; 2024-06-10)
PROC: 5A1955Z Respiratory Ventilation, Greater than 96 Consecutive Hours (ICD-10-PCS; 2024-06-10)
PROC: 5A1D70Z Performance of Urinary Filtration, Intermittent, Less than 6 Hours Per Day (ICD-10-PCS; 2024-06-10)
PROC: 0B9B8ZZ Drainage of Left Lower Lobe Bronchus, Via Natural or Artificial Opening Endoscopic (ICD-10-PCS; 2024-06-11)
PROC: 0B968ZZ Drainage of Right Lower Lobe Bronchus, Via Natural or Artificial Opening Endoscopic (ICD-10-PCS; 2024-06-11)
PROC: 5A1D70Z Performance of Urinary Filtration, Intermittent, Less than 6 Hours Per Day (ICD-10-PCS; 2024-06-12)
PROC: 0B110F4 Bypass Trachea to Cutaneous with Tracheostomy Device, Open Approach (ICD-10-PCS; 2024-06-13)
PROC: 5A1D70Z Performance of Urinary Filtration, Intermittent, Less than 6 Hours Per Day (ICD-10-PCS; 2024-06-13)
PROC: 0DH63UZ Insertion of Feeding Device into Stomach, Percutaneous Approach (ICD-10-PCS; 2024-06-15)
PROC: 02HV33Z Insertion of Infusion Device into Superior Vena Cava, Percutaneous Approach (ICD-10-PCS; 2024-06-17)
PROC: B548ZZA Ultrasonography of Superior Vena Cava, Guidance (ICD-10-PCS; 2024-06-17)
PROC: 0JH63XZ Insertion of Tunneled Vascular Access Device into Chest Subcutaneous Tissue and Fascia, Percutaneous Approach (ICD-10-PCS; 2024-06-18)
PROC: 02HV33Z Insertion of Infusion Device into Superior Vena Cava, Percutaneous Approach (ICD-10-PCS; 2024-06-18)
PROC: B5181ZA Fluoroscopy of Superior Vena Cava using Low Osmolar Contrast, Guidance (ICD-10-PCS; 2024-06-18)
PROC: B548ZZA Ultrasonography of Superior Vena Cava, Guidance (ICD-10-PCS; 2024-06-18)
PROC: 5A1D70Z Performance of Urinary Filtration, Intermittent, Less than 6 Hours Per Day (ICD-10-PCS; 2024-06-19)
PROC: 5A1D70Z Performance of Urinary Filtration, Intermittent, Less than 6 Hours Per Day (ICD-10-PCS; 2024-06-22)
PROC: 5A1D70Z Performance of Urinary Filtration, Intermittent, Less than 6 Hours Per Day (ICD-10-PCS; 2024-06-24)
PROC: 02HV33Z Insertion of Infusion Device into Superior Vena Cava, Percutaneous Approach (ICD-10-PCS; 2024-06-26)
PROC: B548ZZA Ultrasonography of Superior Vena Cava, Guidance (ICD-10-PCS; 2024-06-26)
PROC: 5A1955Z Respiratory Ventilation, Greater than 96 Consecutive Hours (ICD-10-PCS; 2024-06-26)
PROC: 5A1D70Z Performance of Urinary Filtration, Intermittent, Less than 6 Hours Per Day (ICD-10-PCS; 2024-06-27)
PROC: 5A1935Z Respiratory Ventilation, Less than 24 Consecutive Hours (ICD-10-PCS; 2024-06-30)
PROC: 5A1D70Z Performance of Urinary Filtration, Intermittent, Less than 6 Hours Per Day (ICD-10-PCS; 2024-07-02)
PROC: 0JH63XZ Insertion of Tunneled Vascular Access Device into Chest Subcutaneous Tissue and Fascia, Percutaneous Approach (ICD-10-PCS; 2024-07-04)
PROC: 02H633Z Insertion of Infusion Device into Right Atrium, Percutaneous Approach (ICD-10-PCS; 2024-07-04)
PROC: B5181ZA Fluoroscopy of Superior Vena Cava using Low Osmolar Contrast, Guidance (ICD-10-PCS; 2024-07-04)
PROC: B548ZZA Ultrasonography of Superior Vena Cava, Guidance (ICD-10-PCS; 2024-07-04)
PROC: 5A1D70Z Performance of Urinary Filtration, Intermittent, Less than 6 Hours Per Day (ICD-10-PCS; 2024-07-04)
PROC: 0B978ZZ Drainage of Left Main Bronchus, Via Natural or Artificial Opening Endoscopic (ICD-10-PCS; 2024-07-05)
PROC: 0B938ZZ Drainage of Right Main Bronchus, Via Natural or Artificial Opening Endoscopic (ICD-10-PCS; 2024-07-05)
PROC: 0B938ZZ Drainage of Right Main Bronchus, Via Natural or Artificial Opening Endoscopic (ICD-10-PCS; 2024-07-06)
PROC: 5A1D70Z Performance of Urinary Filtration, Intermittent, Less than 6 Hours Per Day (ICD-10-PCS; 2024-07-07)
PROC: 0B21XFZ Change Tracheostomy Device in Trachea, External Approach (ICD-10-PCS; 2024-07-08)
PROC: 0B9D8ZX Drainage of Right Middle Lung Lobe, Via Natural or Artificial Opening Endoscopic, Diagnostic (ICD-10-PCS; 2024-07-08)
PROC: 5A1945Z Respiratory Ventilation, 24-96 Consecutive Hours (ICD-10-PCS; 2024-07-08)
PROC: 5A1D70Z Performance of Urinary Filtration, Intermittent, Less than 6 Hours Per Day (ICD-10-PCS; 2024-07-09)
PROC: 5A1D70Z Performance of Urinary Filtration, Intermittent, Less than 6 Hours Per Day (ICD-10-PCS; 2024-07-12)
PROC: 5A1D70Z Performance of Urinary Filtration, Intermittent, Less than 6 Hours Per Day (ICD-10-PCS; 2024-07-15)
PROC: 5A1D70Z Performance of Urinary Filtration, Intermittent, Less than 6 Hours Per Day (ICD-10-PCS; 2024-07-18)
PROC: 5A1D70Z Performance of Urinary Filtration, Intermittent, Less than 6 Hours Per Day (ICD-10-PCS; 2024-07-22)
PROC: 0B9J8ZX Drainage of Left Lower Lung Lobe, Via Natural or Artificial Opening Endoscopic, Diagnostic (ICD-10-PCS; 2024-07-24)
PROC: 5A1D70Z Performance of Urinary Filtration, Intermittent, Less than 6 Hours Per Day (ICD-10-PCS; 2024-07-25)
PROC: 5A1D70Z Performance of Urinary Filtration, Intermittent, Less than 6 Hours Per Day (ICD-10-PCS; 2024-07-28)
PROC: 5A1D70Z Performance of Urinary Filtration, Intermittent, Less than 6 Hours Per Day (ICD-10-PCS; 2024-07-31)
PROC: 5A1D70Z Performance of Urinary Filtration, Intermittent, Less than 6 Hours Per Day (ICD-10-PCS; 2024-08-03)
PROC: 5A1D70Z Performance of Urinary Filtration, Intermittent, Less than 6 Hours Per Day (ICD-10-PCS; 2024-08-05)
PROC: 5A1D70Z Performance of Urinary Filtration, Intermittent, Less than 6 Hours Per Day (ICD-10-PCS; 2024-08-07)
PROC: 0B9D8ZX Drainage of Right Middle Lung Lobe, Via Natural or Artificial Opening Endoscopic, Diagnostic (ICD-10-PCS; 2024-08-08)
PROC: 02HV33Z Insertion of Infusion Device into Superior Vena Cava, Percutaneous Approach (ICD-10-PCS; 2024-08-08)
PROC: B548ZZA Ultrasonography of Superior Vena Cava, Guidance (ICD-10-PCS; 2024-08-08)
PROC: 5A1955Z Respiratory Ventilation, Greater than 96 Consecutive Hours (ICD-10-PCS; 2024-08-08)
PROC: 0BC78ZZ Extirpation of Matter from Left Main Bronchus, Via Natural or Artificial Opening Endoscopic (ICD-10-PCS; 2024-08-08)
PROC: 5A1D70Z Performance of Urinary Filtration, Intermittent, Less than 6 Hours Per Day (ICD-10-PCS; 2024-08-09)
PROC: 5A1D70Z Performance of Urinary Filtration, Intermittent, Less than 6 Hours Per Day (ICD-10-PCS; 2024-08-12)
PROC: 05HA33Z Insertion of Infusion Device into Left Brachial Vein, Percutaneous Approach (ICD-10-PCS; 2024-08-15)
PROC: B54NZZA Ultrasonography of Left Upper Extremity Veins, Guidance (ICD-10-PCS; 2024-08-15)
PROC: 5A1D70Z Performance of Urinary Filtration, Intermittent, Less than 6 Hours Per Day (ICD-10-PCS; 2024-08-16)
PROC: 5A1D70Z Performance of Urinary Filtration, Intermittent, Less than 6 Hours Per Day (ICD-10-PCS; 2024-08-18)
DX: A41.51 Sepsis due to Escherichia coli [E. coli] (principal); L89.153 Pressure ulcer of sacral region, stage 3; G93.41 Metabolic encephalopathy; I21.A1 Myocardial infarction type 2; N17.0 Acute kidney failure with tubular necrosis; N18.6 End stage renal disease; R65.21 Severe sepsis with septic shock; J15.212 Pneumonia due to Methicillin resistant Staphylococcus aureus; J69.0 Pneumonitis due to inhalation of food and vomit; I50.43 Acute on chronic combined systolic (congestive) and diastolic (congestive) heart failure; E43 Unspecified severe protein-calorie malnutrition; J15.69 Pneumonia due to other Gram-negative bacteria; J15.9 Unspecified bacterial pneumonia; I46.9 Cardiac arrest, cause unspecified; J96.22 Acute and chronic respiratory failure with hypercapnia; J96.01 Acute respiratory failure with hypoxia; N39.0 Urinary tract infection, site not specified; I13.2 Hypertensive heart and chronic kidney disease with heart failure and with stage 5 chronic kidney disease, or end stage renal disease; E87.0 Hyperosmolality and hypernatremia; J44.0 Chronic obstructive pulmonary disease with (acute) lower respiratory infection; J98.11 Atelectasis; E87.4 Mixed disorder of acid-base balance; E87.1 Hypo-osmolality and hyponatremia; I31.9 Disease of pericardium, unspecified; N25.81 Secondary hyperparathyroidism of renal origin; J91.8 Pleural effusion in other conditions classified elsewhere; R18.8 Other ascites; Z68.1 Body mass index [BMI] 19.9 or less, adult; J93.9 Pneumothorax, unspecified; Z20.822 Contact with and (suspected) exposure to COVID-19; E87.5 Hyperkalemia; E87.6 Hypokalemia; D63.1 Anemia in chronic kidney disease; E78.5 Hyperlipidemia, unspecified; E87.8 Other disorders of electrolyte and fluid balance, not elsewhere classified; K80.20 Calculus of gallbladder without cholecystitis without obstruction; N26.1 Atrophy of kidney (terminal); B96.83 Acinetobacter baumannii as the cause of diseases classified elsewhere; D69.6 Thrombocytopenia, unspecified; R13.10 Dysphagia, unspecified; E11.22 Type 2 diabetes mellitus with diabetic chronic kidney disease; E11.51 Type 2 diabetes mellitus with diabetic peripheral angiopathy without gangrene; E11.649 Type 2 diabetes mellitus with hypoglycemia without coma; E83.42 Hypomagnesemia; B18.2 Chronic viral hepatitis C; B96.89 Other specified bacterial agents as the cause of diseases classified elsewhere; D53.9 Nutritional anemia, unspecified; B95.2 Enterococcus as the cause of diseases classified elsewhere; E83.51 Hypocalcemia; F41.9 Anxiety disorder, unspecified; J98.2 Interstitial emphysema; I25.10 Atherosclerotic heart disease of native coronary artery without angina pectoris; E83.39 Other disorders of phosphorus metabolism; Z99.2 Dependence on renal dialysis; Z93.3 Colostomy status; Z93.1 Gastrostomy status; Z88.8 Allergy status to other drugs, medicaments and biological substances; Z86.711 Personal history of pulmonary embolism; I25.2 Old myocardial infarction; Z86.73 Personal history of transient ischemic attack (TIA), and cerebral infarction without residual deficits; Z87.891 Personal history of nicotine dependence; Z89.611 Acquired absence of right leg above knee; Z89.432 Acquired absence of left foot; Z90.49 Acquired absence of other specified parts of digestive tract; Z51.5 Encounter for palliative care; Z79.899 Other long term (current) drug therapy; Z82.3 Family history of stroke; Z74.01 Bed confinement status
CPT/HCPCS: 31720; 36415; 36569; 36600; 70450; 71045; 71250; 74018; 74176; 76604; 76705; 76937; 76942; 80048; 80053; 80069; 80074; 80202; 80307; 81001; 82140; 82270; 82306; 82565; 82570; 82607; 82728; 82746; 82805; 82962; 83540; 83550; 83605; 83615; 83735; 83880; 83970; 83986; 84100; 84132; 84300; 84443; 84484; 84550; 85007; 85014; 85018; 85025; 85027; 85610; 85730; 86705; 86706; 86850; 86900; 86901; 86920; 87040; 87070; 87075; 87076; 87077; 87081; 87086; 87088; 87186; 87205; 87340; 87426; 87804; 89051; 90935; 93005; 93017; 94002; 94003; 94640; 94644; 94660; 94667; 94668; 99152; 99291; C1894; G0378; J0171; J0330; J1642; J1756; J2185; J2250; J2470; J2543; J2704; J3480; J7060; P9047